=== PATIENT | male | born 1955 | race Caucasian/White ===

== ENCOUNTER → 2018-05-16 16:37 | Outpatient (CLI) | payer MEDICARE, SELFPAY ==
[2018-05-16 17:41] LABS: Absolute Lymphocyte Count 1.71 X10^3/ul (0.83-4.51); Absolute Neutrophil Count 4.7 X10^3/uL (2.0-7.7); Basophil# 0.02 X10^3/uL; Basophil% 0.3 % (0-1); Eosinophil# 0.17 X10^3/uL; Eosinophils% 2.4 % (0-5); Hematocrit 43.2 % (40-54); Lymphocyte # 1.71 X10^3/ul (4.0); Lymphocyte % 23.8 % (19-41); Mean Corp Hgb Conc 32.4 g/gl (32-36); Mean Corpuscular Volume 89.6 fL (80-94); Mean Platelet Vol. 10.3 fl (6.2-12.0); Monocyte% 8.4 % (0-10); Neutrophil # 4.65 X10^3/uL (2.7-7.7); Neutrophil % 64.8 % (47-70); Platelet Count 198 K/mm3 (150-450); RBC Distribution Width CV 13.4 % (11.6-14.6); RBC Distribution Width SD 43.9 fl (35.1-43.9); Red Blood Count 4.82 M/mm3 (4.6-6.2); White Blood Count 7.2 K/mm3 (4.4-11.0)
[2018-05-16 17:45] LABS: POSITIVE COUNT NO; POSITIVE DIFFERENTIAL NO; POSITIVE MORPHOLOGY NO
[2018-05-16 18:03] LABS: Color, Urine Yellow (Yellow); Glucose, Dipstick Normal (Normal); Ketone-Dipstick Negative (Negative); Leukocyte Esterase-Dipstick Negative /ul (Negative); Nitrite-Dipstick Negative (Negative); Occult Blood-Urine Negative /ul (Negative); Protein-Dipstick Negative (Negative); Specific Gravity, Urine 1.015 (1.002-1.030); Urine Bilirubin Dipstick Negative (Negative); Urine Clarity Clear (Clear); Urine Urobilinogen Normal (Normal)
[2018-05-16 18:06] LABS: Hemoglobin A1c 7.6 % (4.2-6.3)
[2018-05-16 18:30] LABS: AST(SGOT) 15 U/L (15-37); Alanine Aminotransfer ALT/SGPT 21 U/L (16-61); Albumin, Serum 3.6 g/dL (3.2-5.0); Alkaline Phosphatase 63 U/L (45-117); Anion Gap 9 (5-15); BUN 27 mg/dL (7-18); BUN/Creat Ratio 16.4 RATIO (10-20); Calcium,Total 9.2 mg/dL (8.5-10.1); Chloride 106 mmol/L (98-107); Cholesterol 161 mg/dL (200); Creatinine, Serum 1.65 mg/dL (0.70-1.30); EST Glomerular Filtration Rate 45 mL/min (>60); Est Glom Filt Rate - Afr Amer 54 mL/min (>60); Globulin 3.7 g/dL (2.2-4.2); Glucose 132 mg/dL (74-106); High Density Lipoprotein 36 mg/dL; PSA,Total - Annual Screen 2.32 ng/mL (0.00-4.00); Potassium 4.4 mmol/L (3.5-5.1); Protein, Total 7.3 g/dL (6.4-8.2); Sodium Level 138 mmol/L (136-145); Triglycerides 186 mg/dL; Uric Acid 6.4 mg/dL (3.5-7.2); Very Low Density Lipoprotein 37 mg/dL (5-40)
== END ==
PROVIDERS: Visit Provider Family Medicine
DX: Z00.01 Encounter for general adult medical examination with abnormal findings (principal); I12.9 Hypertensive chronic kidney disease with stage 1 through stage 4 chronic kidney disease, or unspecified chronic kidney disease; N18.3 Chronic kidney disease, stage 3 (moderate); R10.9 Unspecified abdominal pain; R73.03 Prediabetes; M10.9 Gout, unspecified; Z12.5 Encounter for screening for malignant neoplasm of prostate; Z85.528 Personal history of other malignant neoplasm of kidney
CPT/HCPCS: 36415; 80053; 80061; 81002; 83036; 84153; 84550; 85025; 87086; 87088; G0103

== ENCOUNTER → 2018-05-24 13:04 | Outpatient (CLI) | payer MEDICARE, SELFPAY ==
--- NOTE | 2018-05-24 13:07 | RAD_ITS ---
STUDY: X-RAY CHEST REASON FOR EXAM: Male, 62 years old. Chest pain/pressure, history of renal carcinoma TECHNIQUE: PA and lateral views of the chest. COMPARISON: 2014 FINDINGS: The lungs are clear and expanded. There is no demonstrated pleural abnormality. Normal size heart. Normal mediastinum and yessi. Normal visualized pulmonary arteries. Normal visualized aortic arch and descending thoracic aorta. There are diffuse degenerative changes of the visualized thoracic spine. Normal visualized ribs, clavicles, and shoulders. There is no demonstrated abnormality of the visualized soft tissue structures of the upper abdomen. RAD/Chest PA and Lateral IMPRESSION: Normal x-ray examination of the chest. Electronically Signed: Nick Sanders MD at 13:42 EDT , Service support ,
== END ==
PROVIDERS: Family Provider Family Medicine; PCP Family Medicine; Referring Provider Family Medicine; Visit Provider Family Medicine
DX: R05 Cough (principal)
CPT/HCPCS: 71046

== ENCOUNTER 2018-07-12 13:00 | Outpatient (RCR) | payer MEDICARE, SELFPAY | END 2018-07-25 23:59 | LOC: DC 13:00 | PROVIDERS: Family Provider Family Medicine; PCP Family Medicine; Visit Provider Family Medicine | DX: E11.9 Type 2 diabetes mellitus without complications (principal); Z71.3 Dietary counseling and surveillance | CPT/HCPCS: 97802 ==

== ENCOUNTER 2018-08-22 13:58 | Outpatient (RCR) | payer MEDICARE, SELFPAY | END 2018-08-25 23:59 | LOC: DC 13:58 | PROVIDERS: Family Provider Family Medicine; PCP Family Medicine; Visit Provider Family Medicine | DX: E11.9 Type 2 diabetes mellitus without complications (principal); Z71.3 Dietary counseling and surveillance | CPT/HCPCS: 97803 ==

== ENCOUNTER 2018-09-07 12:17 | Outpatient (RCR) | payer MEDICARE, SELFPAY | END 2018-09-07 23:59 | disposition home or self-care (01) | LOC: DC 12:17 | PROVIDERS: Family Provider Family Medicine; PCP Family Medicine; Visit Provider Family Medicine | DX: E11.9 Type 2 diabetes mellitus without complications (principal); Z71.3 Dietary counseling and surveillance | CPT/HCPCS: G0109 ==

== ENCOUNTER 2018-10-15 09:55 | Emergency (ER) | payer MEDICARE, SELFPAY ==
[2018-10-15 09:56] VITALS: BP 166/104; PULSE 105; RESP 16; TEMP 36.7; O2SAT 96; BMI 42.8
--- NOTE | 2018-10-15 10:34 | VDLE_ITS ---
Reason For Study: LEG SWELLING RIGHT LEFT GSV is normal. CFV is compressible, spontaneous, phasic, CFV is compressible, spontaneous, phasic, competent, and demonstrates normal competent and demonstrates normal augmentation. augmentation. Acute deep vein thrombosis is noted in the right femoral vein. Acute deep vein thrombosis is noted in the right popliteal vein. Acute deep vein thrombosis is noted in the right peroneal vein. Acute deep vein thrombosis is noted in the right posterior tibial vein. Procedure Exam performed portable in ED. A preliminary report was called and/or faxed to . Interpretation Summary Acute deep venous thrombosis right femoral, popliteal, peroneal, and posterior tibial veins. Patent and compressible right great saphenous vein. Normal flow patterns left common femoral vein. Ordering Physician: Jenn Pineda Referring Physician: Houston Olson Performed By: Natalie Quintero RVT
--- NOTE | 2018-10-15 10:40 | ED.DCSUM_ITS ---
- ER Visit Summary Date of Service: 10/15/18 Chief Complaint: Right leg pain and swelling History of Present Illness: The patient is a 62 M with a 2-day history of mild pain and swelling to the right leg. Patient has a known history of DVT and PE in 2015. He is no longer on anticoagulants. Patient states he has shortness of breath but it is no worse than normal. He denies chest pain. He denies any recent injury. Physical Examination: Vital signs significant for blood pressure 166/104. Patient sitting upright in bed no acute distress. Head and neck examination unremarkable. Heart is regular rate and rhythm. Lungs sounds are clear. Abdomen is soft and nontender. Right lower external examination does reveal 2-3+ edema in the lower leg. Thigh is soft and nontender. He has strong distal pulses. Normal sensation. Test Results: CBC is unremarkable. Chemistry studies reveal BUN of 37 and a creatinine of 1.73. His calculated creatinine clearance is 46. Coags are unremarkable. Venous ultrasound shows clot from the proximal to mid femoral vessel and distal. Emergency Department Course and Treatment: Patient be treated with a course of Xarelto, first dose given here. I did send a hypercoagulable panel as well. I will speak with the patient's primary care physician to arrange close follow-up and ensure these lab tests are followed up on. Treatment Plan: [] Disposition: Discharge Impression: Right lower extremity DVT This note was generated with [employer] dictation software. It may contain incorrect words, spelling, and punctuation that were not noted in review of the chart prior to signing ED Disposition - Plan for ED Patient: Referrals: Houston Olson DO [Primary Care Provider] -
[2018-10-15] MEDS: Rivaroxaban 15 MG Tablet PO (12:35)
[2018-10-15 12:36] VITALS: BP 133/69; PULSE 94; RESP 16; O2SAT 98
[2018-10-15 12:46] LABS: Absolute Lymphocyte Count 0.95 X10^3/ul (0.83-4.51); Absolute Neutrophil Count 5.3 X10^3/uL (2.0-7.7); Basophil# 0.03 X10^3/uL; Basophil% 0.4 % (0-1); Eosinophil# 0.16 X10^3/uL; Eosinophils% 2.3 % (0-5); Hematocrit 43.5 % (40-54); Hemoglobin 14.4 g/dl (13.0-16.5); Lymphocyte # 0.95 X10^3/ul (4.0); Lymphocyte % 13.6 % (19-41); Mean Corp Hgb Conc 33.1 g/gl (32-36); Mean Corpuscular Hgb 29.6 pg (27.0-32.0); Mean Corpuscular Volume 89.3 fL (80-94); Mean Platelet Vol. 10.2 fl (6.2-12.0); Monocyte# 0.57 X10^3/uL; Monocyte% 8.2 % (0-10); Neutrophil # 5.25 X10^3/uL (2.7-7.7); Neutrophil % 75.4 % (47-70); Platelet Count 155 K/mm3 (150-450); RBC Distribution Width CV 13.6 % (11.6-14.6); RBC Distribution Width SD 44.7 fl (35.1-43.9); Red Blood Count 4.87 M/mm3 (4.6-6.2)
[2018-10-15 12:47] LABS: POSITIVE COUNT NO; POSITIVE DIFFERENTIAL NO; POSITIVE MORPHOLOGY NO
[2018-10-15 12:52] LABS: International Normalized Ratio 1.1; Prothrombin Time (Protime)PT. 14.1 SECONDS (11.7-14.9)
[2018-10-15 12:53] LABS: Partial Thromboplast Time 30.4 Seconds (24.1-36.2)
[2018-10-15 12:59] LABS: Anion Gap 11 (5-15); BUN 37 mg/dL (7-18); BUN/Creat Ratio 21.4 RATIO (10-20); Chloride 106 mmol/L (98-107); Creatinine, Serum 1.73 mg/dL (0.70-1.30); EST Glomerular Filtration Rate 43 mL/min (>60); Est Glom Filt Rate - Afr Amer 51 mL/min (>60); Estimated Creatinine Clearance 46.55 ml/min; Glucose 124 mg/dL (74-106); Potassium 4.5 mmol/L (3.5-5.1); Sodium Level 140 mmol/L (136-145)
--- NOTE | 2018-10-15 13:11 | ED.DEP ---
ED Disposition - Plan for ED Patient: Disposition: Home or Assisted Living Instructions: ED DVT Prescriptions: Rivaroxaban [Xarelto] 15 mg PO BID #42 tablet Referrals: Houston Olson DO [Primary Care Provider] - 1-2 Weeks
[2018-10-15 13:31] VITALS: PULSE 95; RESP 16; O2SAT 98
[2018-10-21 12:08] LABS: Protein C Antigen 84 % (60-150); Protein C, Functional 105 % (73-180)
[2018-10-21 12:37] LABS: Anti-Cardiolipin Ab, IgG, Qn < 9 GPL U/mL (0-14); Anti-Cardiolipin Ab, IgM, Qn 13 MPL U/mL (0-12); Anti-Thrombin 3 AG, Immunol 103 % (72-124); Antithrombin 3 Function 104 % (75-135); Beta-2-Glycoprotein I IgA 13 (0-25); Beta-2-Glycoprotein I IgG <9 (0-20)
[2018-10-21 12:38] LABS: Beta-2-Glycoprotein I IgM <9 (0-32)
== END 2018-10-15 13:32 | disposition home or self-care (01) ==
PROVIDERS: Emergency Provider Emergency Medicine; Family Provider Family Medicine; PCP Family Medicine
DX: I82.411 Acute embolism and thrombosis of right femoral vein (principal); I82.431 Acute embolism and thrombosis of right popliteal vein; I82.441 Acute embolism and thrombosis of right tibial vein; E11.9 Type 2 diabetes mellitus without complications; K21.9 Gastro-esophageal reflux disease without esophagitis; Z79.82 Long term (current) use of aspirin; Z79.01 Long term (current) use of anticoagulants; Z79.899 Other long term (current) drug therapy; Z86.711 Personal history of pulmonary embolism; Z85.528 Personal history of other malignant neoplasm of kidney; Z86.718 Personal history of other venous thrombosis and embolism
CPT/HCPCS: 80048; 81240; 81241; 85025; 85300; 85301; 85302; 85303; 85610; 85730; 86146; 86147; 93971; 99282

== ENCOUNTER 2018-10-27 12:58 | Outpatient (RCR) | payer MEDICARE, SELFPAY | END 2018-11-22 23:59 | LOC: DC 12:58 | PROVIDERS: Family Provider Family Medicine; PCP Family Medicine; Visit Provider Family Medicine | DX: E11.9 Type 2 diabetes mellitus without complications (principal); Z71.3 Dietary counseling and surveillance ==

== ENCOUNTER → 2018-12-16 13:15 | Outpatient (CLI) | payer MEDICARE, SELFPAY ==
[2018-11-14 08:55] VITALS: BMI 42.8
--- NOTE | 2018-12-16 13:17 | CT_ITS ---
STUDY: CT ABDOMEN AND PELVIS WITHOUT CONTRAST REASON FOR EXAM: Male, 62 years old. Blood in stool. History of nephrectomy for renal cancer. RADIATION DOSAGE (If Supplied By Facility): CTDIvol = ( 17.58 ) mGy, DLP = ( 959.27 ) mGycm TECHNIQUE: Transaxial images were obtained from the dome of the diaphragm to the symphysis pubis with oral contrast, and without intravenous contrast. Sagittal and coronal images were reconstructed. Individualized dose optimization techniques were used for this CT. COMPARISON: CT of the chest 11/19/2014. FINDINGS: Limited views of the lower chest show very numerous pulmonary nodules in both lungs. As an example, nodules as much as 1.1 cm size are seen in the lower right lung, note axial image 21 and numerous subcentimeter nodules are seen in the visualized lower left lung. These are not present on the prior exam and are very likely metastases. CT of the chest with contrast is recommended. Probable fatty infiltration of the liver. Elongated 3.3 cm low-attenuation lesion in a very small left lobe, axial image 52. This is of uncertain etiology but needs further evaluation with contrast. Mass is not excluded. Gallbladder, pancreas, spleen and adrenal glands are unremarkable. Right kidney has very numerous renal cysts as much as 10 cm greatest dimension. One of these large cysts is septated with a few calcifications. At least one slightly hyperdense exophytic 1.8 cm mass is seen. These masses should be further evaluated with contrasted CT or ultrasound. Left kidney is absent and no definite mass seen in the left renal bed. Grossly negative stomach. No dilated loops of small bowel or evidence for small bowel obstruction. Normal caliber large bowel. No gross mass or constricting lesion although CT scan is limited for evaluation of the colon. Cannot exclude segments of bowel wall thickening. Aorta and retroperitoneum are unremarkable. No gross adenopathy. No definite mass, abscess or free fluid. In the pelvis, normal bladder contour. Normal prostate. No gross abnormality of the rectum. Normal abdominal wall. There are diffuse degenerative changes of the visualized lumbar spine. CT/Abdomen/Pelvis without Cont IMPRESSION: Probable metastatic disease throughout the visualized lungs. Additional evaluation of the lungs recommended with chest CT preferably with contrast. Focal lesion in the left lobe of the liver. This needs further evaluation with contrast CT. Numerous masses of the right kidney most likely cysts but some of these are somewhat suspicious and further evaluation recommended, also best with contrast CT. Electronically Signed: Hemanth Boyle MD at 18:01 EDT , Service support ,
== END ==
PROVIDERS: Family Provider Family Medicine; PCP Family Medicine; Referring Provider Family Medicine; Visit Provider Family Medicine
DX: R19.5 Other fecal abnormalities (principal); Z12.11 Encounter for screening for malignant neoplasm of colon; I82.401 Acute embolism and thrombosis of unspecified deep veins of right lower extremity
CPT/HCPCS: 74176

== ENCOUNTER → 2018-12-28 08:11 | Outpatient (CLI) | payer MEDICARE, SELFPAY ==
[2018-11-14 08:55] VITALS: BMI 42.8
[2018-12-28 12:24] LABS: Absolute Lymphocyte Count 1.07 X10^3/ul (0.83-4.51); Absolute Neutrophil Count 3.5 X10^3/uL (2.0-7.7); Basophil# 0.03 X10^3/uL; Basophil% 0.6 % (0-1); Eosinophil# 0.12 X10^3/uL; Eosinophils% 2.3 % (0-5); Hemoglobin 14.1 g/dl (13.0-16.5); Lymphocyte # 1.07 X10^3/ul (4.0); Lymphocyte % 20.8 % (19-41); Mean Corp Hgb Conc 33.6 g/gl (32-36); Mean Corpuscular Hgb 28.6 pg (27.0-32.0); Mean Corpuscular Volume 85.2 fL (80-94); Mean Platelet Vol. 11.6 fl (6.2-12.0); Monocyte# 0.44 X10^3/uL; Monocyte% 8.6 % (0-10); Neutrophil # 3.46 X10^3/uL (2.7-7.7); Neutrophil % 67.3 % (47-70); POSITIVE COUNT NO; POSITIVE DIFFERENTIAL NO; POSITIVE MORPHOLOGY NO; Platelet Count 167 K/mm3 (150-450); RBC Distribution Width CV 13.5 % (11.6-14.6); RBC Distribution Width SD 41.5 fl (35.1-43.9); Red Blood Count 4.93 M/mm3 (4.6-6.2); White Blood Count 5.1 K/mm3 (4.4-11.0)
[2018-12-28 12:44] LABS: Hemoglobin A1c 11.4 % (4.2-6.3)
[2018-12-28 13:03] LABS: Microalbumin,Random Urine 8.1 mg/L (NO RANGE EST.)
[2018-12-28 13:40] LABS: AST(SGOT) 10 U/L (15-37); Alanine Aminotransfer ALT/SGPT 18 U/L (16-61); Albumin, Serum 3.5 g/dL (3.2-5.0); Alkaline Phosphatase 85 U/L (45-117); Anion Gap 14 (5-15); BUN 53 mg/dL (7-18); BUN/Creat Ratio 26.4 RATIO (10-20); Calcium,Total 9.1 mg/dL (8.5-10.1); Chloride 100 mmol/L (98-107); Cholesterol 163 mg/dL (200); Creatinine, Serum 2.01 mg/dL (0.70-1.30); EST Glomerular Filtration Rate 36 mL/min (>60); Est Glom Filt Rate - Afr Amer 43 mL/min (>60); Globulin 3.6 g/dL (2.2-4.2); Glucose 487 mg/dL (74-106); High Density Lipoprotein 33 mg/dL; Potassium 4.2 mmol/L (3.5-5.1); Protein, Total 7.1 g/dL (6.4-8.2); Sodium Level 134 mmol/L (136-145); Triglycerides 359 mg/dL; Uric Acid 7.3 mg/dL (3.5-7.2); Very Low Density Lipoprotein 72 mg/dL (5-40)
== END ==
PROVIDERS: Family Provider Family Medicine; PCP Family Medicine; Visit Provider Family Medicine
DX: E11.22 Type 2 diabetes mellitus with diabetic chronic kidney disease (principal); I12.9 Hypertensive chronic kidney disease with stage 1 through stage 4 chronic kidney disease, or unspecified chronic kidney disease; N18.3 Chronic kidney disease, stage 3 (moderate); M10.9 Gout, unspecified; Z51.81 Encounter for therapeutic drug level monitoring
CPT/HCPCS: 36415; 80053; 80061; 82043; 82570; 83036; 84550; 85025

== ENCOUNTER 2019-02-15 08:08 | Day surgery (SDC) | payer MEDICARE, SELFPAY ==
--- NOTE | 2019-01-25 02:24 | HP_ITS ---
Intake Vital Signs 01/25/19 Body Mass Index (BMI) 42.8 01/25/19 Height 5 ft 11 in 01/25/19 Weight: 298 lb 01/25/19 Body Mass Index (BMI) 41.5 01/25/19 Blood Pressure 109/66 01/25/19 Blood Pressure Location Lt brachial 01/25/19 Respiratory Rate 18 Intake Visit Reasons: C-Scope Consult Chief Complaint: Right Total Hip Replacement Liaison Officer Required: No Is patient in pain?: No Allergies Penicillins Allergy (Verified 01/25/19 13:43) Unknown Medications Lisinopril/Hydrochlorothiazide [Zestoretic 20/12.5 Tablet] 2 tab PO DAILY 11/09/14 [History Confirmed 01/25/19] Tamsulosin HCl [Flomax] 0.4 mg PO QHS 11/09/14 [History Confirmed 01/25/19] Allopurinol [Zyloprim] 100 mg PO DAILYCM 05/03/15 [History Confirmed 01/25/19] Finasteride [Proscar] 5 mg PO DAILY 05/03/15 [History Confirmed 01/25/19] Rivaroxaban [Xarelto] 20 mg PO DAILY@0600 #30 tab 05/22/15 [Rx Confirmed 01/25/19] Senna/Docusate Sodium [Senokot-S] 2 tab PO BID #60 tab 05/22/15 [Rx Confirmed 01/25/19] peg 3350-electrolytes 236 gram-22.74 gram-6.74 gram-5.86 gram solution 240 ml PO Q30M #4000 ml 01/25/19 [Rx Confirmed 01/25/19] PFSH Medical History DVT (deep venous thrombosis) (Acute) Hx pulmonary embolism (Acute) Acid reflux (Acute) Shortness of breath (Acute) Hypertension (Chronic) Gout (Acute) Back problem (Acute) Renal cell cancer (Chronic) Osteoarthritis (Chronic) Obesity (Chronic) Surgical History Hx of tonsillectomy (Acute) Hx of unilateral nephrectomy (Acute) History of right hip replacement (Acute) Family History Mother CVA (cerebral vascular accident) Heart disease Diabetes Hypertension Kidney disease Social History (Updated 01/25/19 @ 14:54 by Ava Heredia MD) Smoking Status: Never smoker second hand exposure: No alcohol intake: never substance use type: does not use caffeine: Yes frequency: does not exercise HPI HPI HPI: KRISSY SAAVEDRA, is a 63 M who presents to the office today for HPI HPI Surgical H&P: Yes HPI: KRISSY SAAVEDRA, is a 63 M who presents to the office today for positive fecal occult blood test and abnormal CT of the abdomen. Patient was seen previously in October and due to his recurrent right lower extremity DVTs he agreed to check a CT abdomen pelvis prior to trying to bridge patient with Lovenox. Patient CT abdomen did show multiple lung lesions as well as a questionable lesion in the liver however is unable to be done with contrast to the patient's history of left nephrectomy as well as chronic kidney disease. Patient then was to follow-up to schedule endoscopies; However patient just scheduled recently. Patient states he does have bowel movements daily denies any blood he also states he has reflux about twice a week depending on what he eats he takes Rolaids for this. Patient otherwise denies any nausea or vomiting. Patient does state that he is lost about 44 pounds in several months but he has also decrease his intake intentionally due to his blood sugars. Patient is never had a colonoscopy. Denies any family history of colon cancer. ROS General General: Yes weight change and fatigue Gastro Gastrointestinal: Yes abdominal pain (Only occasional left-sided pain which she describes as an ache that comes a), No nausea or vomiting, No diarrhea, No constipation, No blood in stool, Yes acid reflux, Yes hemorrhoids, No ulcers, No gallbladder problem, No black,tarry stools Exam Const General: cooperative, comfortable, no acute distress Resp Effort & Inspection: normal respiratory effort Cardio Rate: regular rate GI Inspection: non-distended, obesity Palpation: soft, no guarding, no hernias, nontender Assessment & Plan Problems 1. Fecal occult blood test positive R19.5 2. Recurrent deep vein thrombosis (DVT) of right lower extremity I82.[address] of the abdomen R93.5 Multiple lung nodules seen in the base of the lungs, liver lesion also seen unable to see well as patient cannot have contrast used to his creatinine and history of left nephrectomy. 4. GERD (gastroesophageal reflux disease) K21.9 Plan I have discussed the above with the patient. We will have patient come off his Xarelto 2 days prior to the scope and patient will get Lovenox shots twice daily. His PCP Dr. Olson is agreeable to prescribe the Lovenox shots. The patient complete GoLYTELY prep I have offered the patient EGD & colonoscopy for evaluation. I have explained the risks/benefits of the procedure and described the procedure. I have discussed the risks with the patient, including but not limited to: infection, bleeding, perforation of the GI tract requiring emergency surgery, inability to complete the procedure, injury to any internal organs, complications of anesthesia, etc. - the patient understands and agrees to proceed. I have answered all the patient's questions to the patient's satisfaction and the patient has no further questions. The patient has been given instructions for the colon cleansing preparation- GoLYTELY 4 L. Orders Orders: Colonoscopy Today R19.5, R93.5 EGD Today K21.9, R19.5, R93.5 Medications New: peg 3350-electrolytes 236-22.74-6.74 -5.86 gram until fecal effluent is clear; do not exceed a total volume [id number] mL, follow instructions from office 240 mL PO Q30M 4,000 mL 0RF Z12.11 Plan Detail Follow Up scheduled for 02/15 for endoscopy Coding Level of Care Code Off vis,est,level 3 Diagnoses Fecal occult blood test positive R19.5 Recurrent deep vein thrombosis (DVT) of right lower extremity I82.[address] of the abdomen R93.5 GERD (gastroesophageal reflux disease) K21.9 01/25/19 8352 <Electronically signed by Aav Rodrigues am, MD> Date _ Ava Heredia MD I have examined the patient the following changes are noted: Patient has been on Lovenox shots twice daily x2 days, denies any issues with the prep. Patient has no questions about the procedure today.
[2019-01-25 13:43] VITALS: BMI 42.8
[2019-02-15] VITALS (7 sets, daily range): BP systolic 94–137; BP diastolic 65–73; PULSE 73–90; RESP 16–18; TEMP 36.5–36.9; O2SAT 91–97; BMI 41.9
[2019-02-15 09:21] LABS: Bedside Glucose 135 mg/dL (70-110)
--- NOTE | 2019-02-15 09:30 | EGD_PTH ---
PATIENT: KRISSY SAAVEDRA LOC: EN U#:[id number] AGE/SX: 63/M ROOM: RE02/15/[address]: Dr. Ava Heredia MD : 1955 BED: DIS: 02/15/2019 SPEC #: [id number] RECD: 02/15/19 11:28 STATUS: REECE TAMMI #: [id number] NIHARIKA: 02/15/19 09:[address]: Ava Heredia DEPT: SURGICAL PATHOLOGY RECD BY: Abhay Patrick ENTERED: 02/15/19 12:31 SP TYPE: EGD BIOPSY OT DR: Dr. Houston Olson, Tissues: A - Gastric mucous membrane B - Sigmoid colon biopsy Procedures: Surgery Specimen Level IV HEADER OPERATION: Colonoscopy, EGD ([facility]) PRE-OP DIAGNOSIS: Fecal occult positive, abnormal CT abdomen TISSUE SUBMITTED: A - Antrum biopsy for H. pylori and path, B - Sigmoid polyp at 32 cm MICROSCOPIC DIAGNOSIS A. Gastric antrum, biopsy: Mild chronic gastritis. See comment. B. Sigmoid colon polyp at 32 cm, biopsy: Fragments of tubular adenoma. AM:nisah 02/16/19 COMMENT A. The results of immunohistochemistry for Helicobacter pylori will be reported separately ([id number]). MICROSCOPIC DESCRIPTION Slides are reviewed. GROSS DESCRIPTION A - Received in fixative is one container labeled with the patient's name and designated antrum biopsy. The specimen consists of one irregular fragment of light carmona soft tissue that measures 0.4 x 0.3 x 0.1 cm. The specimen is totally submitted in one cassette. B - Received in fixative is one container labeled with the patient's name and designated sigmoid polyp. The specimen consists of two fragments of carmona-pink polyp that in aggregate measure 1.2 x 0.7 x 0.4 cm. Fragments of fecal material are also noted. The entire specimen is submitted in one cassette. / SJ:nisha 02/15/19 TC:3 CPT: 81288 x2
--- NOTE | 2019-02-15 09:30 | IMM_PTH ---
PATIENT: KRISSY SAAVEDRA LOC: EN U#:[id number] AGE/SX: 63/M ROOM: RE02/15/[address]: Dr. Ava Heredia MD : 1955 BED: DIS: 02/15/2019 SPEC #: [id number] RECD: 02/15/19 13:45 STATUS: REECE REQ #: [id number] NIHARIKA: 02/15/19 09:[address]: Aav Heredia DEPT: IMMUNOHISTOCHEMISTRY RECD BY: Shelly Yan ENTERED: 02/15/19 13:46 SP TYPE: IMMUNO OTHR DR: Dr. Houston Olson, DO Tissues: A - Stomach, NOS Procedures: H Pylori (initial) PHYSICIAN & INSTITUTION [place] [id number] SPECIMEN INFORMATION: Tissue Source: A - Antrum biopsy Clinical Info: Fecal occult positive, Abnormal CT abdomen Specimen Number: [id number] CPT code: 36046 METHODOLOGY: Deparaffinized sections of prefer/formalin-fixed tissue or PAP/DQ stained slides are incubated with monoclonal/polyclonal antibodies/oligonucleotide probes. Localization is made via biotin free immunoperoxidase method. Appropriate controls are performed and reacted as expected. Results on target cell population are indicated in the following table: RESULTS: ANTIBODY / CLONE RESULT Block A H Pylori (polyclonal) negative These tests were developed and their performance characteristics determined by [facility]. They may not have been cleared or approved by the U.S. Food and Drug Administration. The FDA has determined that such clearance or approval is not necessary. INTERPRETATION: A. Antrum biopsy: Negative for Helicobacter pylori organisms. AM:nisha 02/17/19
--- NOTE | 2019-02-15 09:54 | OP.ENDO_ITS ---
02/15/2019 Houston Olson [address] [place] [address] Re : Upper GI endoscopy procedure for James Wright Dear Dr. Olson This procedure was performed on Friday, February 15, 2019. My impressions and recommendations are as follows: Impressions : - Z-line irregular, 37 cm from the incisors. - Erythematous mucosa in the antrum. Biopsied. - Normal examined duodenum. - The examination was otherwise normal. Recommendations : - Await pathology results. - Discharge patient to home. - Continue present medications. My findings are described in the full procedure note, which is enclosed. If I can be of further assistance, please feel free to contact me at Doctor phone number(s): , Work: . Sincerely, MD Ava Christian MD 02/15/2019 9:54:02 AM This report has been signed electronically.
--- NOTE | 2019-02-15 10:00 | OP.ENDO_ITS ---
02/15/2019 Houston Olson [address] [facility] [place] [address] Re : Colonoscopy procedure for James Wright Dear Dr. Olson This procedure was performed on Friday, February 15, 2019. My impressions and recommendations are as follows: Impressions : - One 6 to 9 mm polyp in the sigmoid colon, removed piecemeal using a hot snare. Resected and retrieved. Clip was placed. - Internal hemorrhoids. -few diverticulosis in sigmoid colon Recommendations : - Await pathology results. - Discharge patient to home. - Resume Xarelto (rivaroxaban) at prior dose tonight. Refer to primary physician for further adjustment of therapy. - Repeat colonoscopy 1-3 years for surveillance based on pathology results. - High fiber diet. My findings are described in the full procedure note, which is enclosed. If I can be of further assistance, please feel free to contact me at Doctor phone number(s): , Work: . Sincerely, MD Ava Christian MD 02/15/2019 10:00:18 AM This report has been signed electronically.
== END 2019-02-15 11:20 | disposition home or self-care (01) ==
LOC: EN 08:09 → AC 08:09
PROVIDERS: Family Provider Family Medicine; PCP Family Medicine; Referring Provider Family Medicine; Visit Provider Surgery
PROC: 0DJD8ZZ Inspection of Lower Intestinal Tract, Via Natural or Artificial Opening Endoscopic (ICD-10-PCS; CPT 45378; principal; 2019-02-15 09:25)
DX: D12.5 Benign neoplasm of sigmoid colon (principal); K57.30 Diverticulosis of large intestine without perforation or abscess without bleeding; K29.50 Unspecified chronic gastritis without bleeding; K64.0 First degree hemorrhoids; K21.9 Gastro-esophageal reflux disease without esophagitis; R91.1 Solitary pulmonary nodule; K76.9 Liver disease, unspecified; R93.3 Abnormal findings on diagnostic imaging of other parts of digestive tract; K31.89 Other diseases of stomach and duodenum; E11.9 Type 2 diabetes mellitus without complications; I10 Essential (primary) hypertension; Z88.0 Allergy status to penicillin; Z79.01 Long term (current) use of anticoagulants; Z86.711 Personal history of pulmonary embolism; Z86.718 Personal history of other venous thrombosis and embolism; Z85.528 Personal history of other malignant neoplasm of kidney; Z90.5 Acquired absence of kidney; Z96.641 Presence of right artificial hip joint
CPT/HCPCS: 43239; 45385; 82962; 88305; 88342; J7120; J2405

== ENCOUNTER → 2019-03-01 13:09 | Outpatient (CLI) | payer MEDICARE, SELFPAY ==
[2019-02-15 08:42] VITALS: BMI 41.9
[2019-03-01 14:16] LABS: PSA,Total- Diagnostic 2.94 ng/mL (0.0-4.0)
== END ==
PROVIDERS: Family Provider Family Medicine; PCP Family Medicine; Referring Provider Urology; Visit Provider Urology
DX: C61 Malignant neoplasm of prostate (principal); Z12.5 Encounter for screening for malignant neoplasm of prostate
CPT/HCPCS: 36415; 84153

== ENCOUNTER → 2019-03-04 10:17 | Outpatient (CLI) | payer MEDICARE, SELFPAY ==
[2019-02-15 08:42] VITALS: BMI 41.9
--- NOTE | 2019-03-04 10:30 | CT_ITS ---
STUDY: CT CHEST WITHOUT CONTRAST REASON FOR EXAM: Male, 63 years old. Lung nodule follow-up RADIATION DOSAGE (If Supplied By Facility): CTDIvol = ( 20.14 ) mGy, DLP = ( 770.19 ) mGycm TECHNIQUE: Transaxial imaging was performed without the administration of intravenous contrast material. Multiplanar coronal and sagittal images were reformatted. Individualized dose optimization techniques were used for this CT. COMPARISON: CTA chest from 11/19/2014, abdomen/pelvis CT of 12/16/2018 FINDINGS: Enlargement of the thyroid gland including the isthmus is overall similar since 2014. There are numerous noncalcified pulmonary nodules which have increased in size and number since the prior CTA chest of 11/19/2014. For instance, 11 mm nodule in the anterior right lower lobe on image 80 of the current exam previously measured 3 mm. The 2 nodules slightly more medial and posterior in the right lower lobe on image 80 are new, each measuring approximately 8 mm. The lingular nodule on axial image 66 is new since 2014 appears mildly larger as compared to recent abdomen/pelvis CT, currently measuring 8 mm (previously measured 5 mm). There is no demonstrated pleural abnormality. Heart size is stable. Mitral valve calcifications are noted. There are several lymph nodes of the mediastinum and bilateral yessi, measuring up to 1.3 cm (right hilum, image 54), larger since prior chest CTA. No dominant mediastinal shaun mass is seen. Station 7 subcarinal lymph node has a short axis of 1 cm (measures 8 mm on prior CTA). Normal unenhanced pulmonary arteries. Normal aorta arch and descending thoracic aorta. There are multi-level degenerative changes of the thoracic spine. Multiple large renal cysts of the right kidney are partially visualized. The left kidney is surgically absent. CT/Chest without Contrast IMPRESSION: 1. Multiple enlarging and new pulmonary nodules. Many of the nodules are certainly new since 2014 and least one nodule (lingula) is increased in size since abdomen/pelvis CT of 12/16/2018. Findings are suspicious for metastatic/neoplastic causes. Multiple nodules appear to be amenable to both percutaneous and bronchoscopic biopsy. PET scan and/or biopsy recommended, as clinically appropriate. 2. Mild hilar more than mediastinal adenopathy. Electronically Signed: Roland Calero MD ([place]) at 12:44 EDT , Service support ,
== END ==
PROVIDERS: Family Provider Family Medicine; PCP Family Medicine; Referring Provider Family Medicine; Visit Provider Family Medicine
DX: C34.90 Malignant neoplasm of unspecified part of unspecified bronchus or lung (principal); N18.3 Chronic kidney disease, stage 3 (moderate)
CPT/HCPCS: 71250

== ENCOUNTER → 2019-03-13 10:26 | Outpatient (CLI) | payer MEDICARE, SELFPAY ==
[2019-03-07 13:07] VITALS: BMI 41.9
--- NOTE | 2019-03-13 11:00 | PET_ITS ---
EXAMINATION: FDG PET/CT INDICATIONS: A 63-year-old male with reported history of renal cell carcinoma presenting for restaging examination and evaluation of pulmonary nodularity. COMPARISON EXAMINATION: CT of the chest report dated 03/04/19, CT of the abdomen and pelvis report dated 12/16/18 INDEX LESION SIZE SUV INTERPRETATION Right lower lung-right lower lobe 8.7 mm 1.3 Quantitative criteria for viable neoplasm are not fulfilled, sequential radiologic investigation recommended TECHNIQUE: Following the intravenous administration of F-18 deoxyglucose, multiplanar image acquisitions of the neck, chest, abdomen and pelvis to level of mid thigh, obtained at one hour post radiopharmaceutical administration contemporaneously interpreted with the current CT of the neck, chest, abdomen and pelvis to level of mid thigh, dated 03/13/[address] of the chest report dated 03/04/19, CT of the abdomen and pelvis report dated 12/16/18 reveal: FINDINGS: 1. Subtle increased glucose metabolism is defined in the right lower medial hemithorax pulmonary parenchyma, right lower lobe, in a single nodular presentation. The calculated maximal standard uptake value is 1.3. The maximal axial diameter of the corresponding parenchymal density on review of CT of the chest dated 03/13/19 is 8.7-mm (AP). 2. Asymmetric increased FDG concentration is demonstrated in the posterior compartment of the right lower extremity, non-contiguous to bone, generating a calculated maximal standard uptake value of 1.7. The maximal axial diameter of the corresponding soft tissue density on review of CT of the lower extremities dated 03/13/19 is 48.5-mm (transverse). 3. Normal physiologic distribution of the radiopharmaceutical is apparent in the hepatic (3.6) and splenic parenchyma, right renal unit, bladder and visualized intestinal tract. The visualized portion of the cerebral cortex, cerebellar hemispheres and basal ganglia demonstrates uniform and preserved glucose metabolism. Diffuse radiopharmaceutical concentration is noted in all four quadrants of the abdomen and pelvis. Heterogeneous radiopharmaceutical concentration is defined in the right renal unit. Injection artifact is defined in the left upper extremity. Pertinent CT findings are as follows: CHEST: Additional parenchymal densities defined in the bilateral hemithorax pulmonary parenchyma demonstrate no evidence of discernible, quantitatively significant enhanced FDG concentration. Bilateral subcentimeter axillary soft tissue densities with fatty hilus formation are ametabolic. Mediastinal soft tissue demonstrates no evidence of increased FDG concentration. There is atherosclerotic calcification defined in the thoracic aorta without evidence of dilatation-aneurysm formation. Coronary arterial calcification is observed. ABDOMEN AND PELVIS: The left kidney is metabolically, morphologically absent commensurate with prior nephrectomy. Surgical clips are defined in the left renal bed and left mid abdominal retroperitoneum. There is atherosclerotic calcification defined in the abdominal aorta without evidence of dilatation-aneurysm formation. Pelvic arterial calcification is observed. Multiple cyst formation is defined in the enlarged right kidney, the largest of which appears to demonstrate a maximal axial diameter of 9.8-cm (transverse). Dystrophic calcification is manifest within the prostate gland without evidence of facilitated FDG uptake. Subcentimeter bilateral inguinal soft tissue densities are non-glucose avid. SKELETAL: A right hip arthroplasty is defined. Degenerative changes are noted in the cervical, thoracic and lumbar spine. There are no sclerotic, mixed sclerotic-lytic and/or lytic changes demonstrating discernible quantitatively significant enhanced FDG uptake. PET/PET/CT Tumor Base -Thigh Init IMPRESSION: 1. The single nodular focus of increased FDG concentration noted in the right lower posteromedial lung field, right lower lobe, does not fulfill quantitative criteria for viable neoplasm. (Plasencia et al, Annals of Internal Medicine, 138:724, 2003). 2. Metabolic and/or anatomic stability may be ensured in the right hemithorax pulmonary parenchymal abnormality with repeat FDG PET study and/or CT of the thorax in three months. (Xiu, Journal of Nuclear Medicine 45:88, P2004 Lianet, Seminars in Thoracic and Cardiovascular Surgery 14:292, 2002). 3. Facilitated FDG distribution noted in the posterior soft tissue compartment of the right lower extremity at the level of the mid femoral diaphysis does not fulfill strict quantitative criteria for viable neoplasm. 4. Metastatic disease attributed to renal cell carcinoma may be associated with decreased sensitivity and quantitative degree of uptake secondary to the inherent gluconeogenic properties of well-differentiated primary and metastatic renal cell carcinoma. (Gerich et al., Diabetes Care 24:382, 2001). Electronic Signature Fred Rodriguez D.O. Electronically Signed: Fred Rodrgiuez DO at 23:29 EDT Tel , Service support ,
== END ==
PROVIDERS: Family Provider Family Medicine; PCP Family Medicine; Referring Provider Internal Medicine Critical Care Medicine; Visit Provider Internal Medicine Critical Care Medicine
DX: R91.1 Solitary pulmonary nodule (principal)
CPT/HCPCS: 78815; A9552

== ENCOUNTER → 2019-03-16 12:06 | Outpatient (CLI) | payer MEDICARE, SELFPAY ==
[2019-03-07 13:07] VITALS: BMI 41.9
--- NOTE | 2019-03-16 12:19 | MRI_ITS ---
STUDY: MRI ABDOMEN WITHOUT CONTRAST REASON FOR EXAM: Male, 63 years old. Renal cell cancer, right renal cyst, left nephrectomy. TECHNIQUE: Multisequence multiplanar MRI of the abdomen was performed without IV contrast. COMPARISON: PET CT 03/13/2019, CT chest 03/04/2018, CT abdomen and pelvis 12/16/2018, CT angiogram chest 11/19/2014 FINDINGS: Body wall soft tissues: No acute process. Osseous structures: No acute process. Inferior chest: Unremarkable. Spleen: Normal. Hepatobiliary: Multiple small gallstones. No apparent gallbladder inflation. Nondilated biliary tree. Normal liver parenchyma. Pancreas: Mild atrophy. No suspicious lesion or ductal ectasia. Adrenal glands: The left adrenal gland is not well seen. The right adrenal gland is normal. Stomach and bowel: Evaluated portions exhibit no acute process. Urinary tract: Left nephrectomy. No right hydronephrosis or hydroureter. Right renal inferior pole large exophytic simple appearing cyst measuring 8.8 x 9.5 x 7.9 cm. Simple cystic features. On lateral margin of the cyst there is an oval complex masslike focus adherent to the wall, measuring 2.2 x 2.4 cm. Suspicious features. Right renal inferior pole largely exophytic cyst measuring 5.9 x 5.8 cm. Simple cystic features. Right renal superior pole simple appearing cyst measuring 9.4 x 7.8 cm. Simple cystic features. There are multiple additional simple appearing smaller cysts exophytic from the cortex mid polar, and superior pole. Within the posterior aspect of the hilum, right renal inferior pole, oval masslike focus measuring 2.6 x 2.6 cm. Suspicious features. Projecting from the posterior margin of the inferior pole cortex, complex cyst measuring 1.9 x 1.9 cm. Suspicious features. Projecting from the posterior cortical margin of the superior pole, medially, complex septated cyst with nodularity and thickening of the wall measuring 4.6 x 4.7 cm. Suspicious features. Projecting from the anterior superior margin of the superior pole, complex multiloculated cystic and solid lesion measuring 4.7 x 4.5 cm. Suspicious features. MRI/Abdomen without Contrast IMPRESSION: The study is partially limited by the absence of IV contrast and diffusion-weighted imaging. There are multiple benign appearing cysts of the right kidney. There are 5 complex cystic masses of the right kidney, features concerning for the possibility of renal cell carcinoma. The pattern of the right kidney lesions and cyst is not substantially changed compared to imaging of 12/16/2017. No remote abdominal imaging is available for further characterization. Electronically Signed: Fred Camacho MD at 15:14 EDT Tel , Service support ,
== END ==
PROVIDERS: Family Provider Family Medicine; PCP Family Medicine; Referring Provider Urology; Visit Provider Urology
DX: C64.9 Malignant neoplasm of unspecified kidney, except renal pelvis (principal); N28.1 Cyst of kidney, acquired
CPT/HCPCS: 74181

== ENCOUNTER → 2019-04-06 07:40 | Outpatient (CLI) | payer MEDICARE, SELFPAY ==
[2019-03-28 08:40] VITALS: BMI 43.0
[2019-04-06] VITALS (10 sets, daily range): BP systolic 123–171; BP diastolic 57–95; PULSE 72–94; RESP 16–22; TEMP 36.5–36.6; O2SAT 93–97; BMI 42.4
--- NOTE | 2019-04-06 07:42 | CT_ITS ---
PROCEDURE: CT GUIDED PERCUTANEOUS KIDNEY BIOPSY. DATE: April 06, 2019. INDICATION: Male, 63 years old. Right renal mass. PHYSICIAN: Horacio Thacker M.D. MEDICATIONS: 2 mg of Versed and 50 mcg of fentanyl intravenously. Conscious patient was started at 9:19 AM and terminated at 9:55 AM. The patient was independently monitored by the department nurse. ACCESS SITE: Lower pole right kidney. NEEDLE: 18-gauge core biopsy needle. SPECIMEN: 5 18-gauge cores. EBL: Minimal COMPLICATIONS: None immediate. RADIATION DOSAGE (If Supplied By Facility): CTDIvol = ( 16 ) mGy, DLP = ( 324.27 ) mGycm The risks, benefits, and alternatives to the procedure and sedation were explained to the patient. The specific risk of hemorrhage requiring further treatment or intervention was detailed and accepted. Written informed consent was obtained. The patient was placed on the CT table in the prone position. Multiple axial images were obtained from the lung base through the caudal extent of the kidneys. An appropriate entry site was identified and a prabhakar made on the skin. The skin overlying the [ right] posterior flank was prepped and draped in sterile fashion. 1% lidocaine was administered subcutaneously for local anesthesia. Initially, a 22 gauge needle was advanced and CT images confirmed good needle position. The 22 gauge needle was then exchanged for an 17 gauge introducer needle which was advanced. Repeat CT images confirmed good needle trajectory and tip position. The introducer needle was then advanced into the periphery of the inferior renal pole, and CT images were again obtained to confirm exact tip location. The inner stylet of the introducer needle was then removed and an 18 gauge coaxial needle was advanced thru the introducer needle and biopsy performed. A total of [5 ] passes were performed and the specimen collected was sent to Pathology for further evaluation. The needle was withdrawn. Hemostasis was achieved with manual compression and a sterile dressing was applied. Repeat CT images of the biopsy area was performed which demonstrated no gross bleeding or hematoma. The patient tolerated the procedure well without immediate complications. The patient was transported to the [floor/recovery area] in stable condition. CT/Biopsy/Inj or Needle Placement IMPRESSION: Successful CT guided percutaneous kidney biopsy. Electronically Signed: Horacio Thacker, at 10:29 EDT , Service support ,
[2019-04-06 08:07] LABS: Absolute Neutrophil Count 3.7 X10^3/uL (2.0-7.7); Basophil# 0.04 X10^3/uL; Basophil% 0.7 % (0-1); Eosinophils% 3.7 % (0-5); Hemoglobin 13.6 g/dL (13.0-16.5); Lymphocyte % 18.7 % (19-41); Mean Corp Hgb Conc 31.6 g/dL (32-36); Mean Corpuscular Hgb 29.1 pg (27.0-32.0); Mean Corpuscular Volume 92.1 fL (80-94); Mean Platelet Vol. 10.5 fl (6.2-12.0); Monocyte# 0.44 X10^3/uL; Monocyte% 8.2 % (0-10); NRBC Flagged by Analyzer 0 % (0-5); Neutrophil # 3.65 X10^3/uL (2.7-7.7); Neutrophil % 68.1 % (47-70); Platelet Count 167 K/mm3 (150-450); RBC Distribution Width CV 13.3 % (11.6-14.6); RBC Distribution Width SD 45.1 fl (35.1-43.9); Red Blood Count 4.67 M/mm3 (4.6-6.2); White Blood Count 5.4 K/mm3 (4.4-11.0)
[2019-04-06 08:21] LABS: International Normalized Ratio 1.1; Prothrombin Time (Protime)PT. 13.5 SECONDS (11.7-14.9)
[2019-04-06 08:22] LABS: Partial Thromboplast Time 30.9 Seconds (24.1-36.2)
[2019-04-06] MEDS: 0.9% Saline Lock 10 ML Syringe IV (08:55)
[2019-04-06] MEDS: Midazolam 2 MG/2 ML Syringe IV (09:19)
[2019-04-06] MEDS: fentaNYL 100 MCG/2 ML Ampul IV (09:21)
--- NOTE | 2019-04-06 10:00 | ASPIGT_PTH ---
PATIENT: KRISSY SAAVEDRA LOC: CT U#:[id number] AGE/SX: 69/M ROOM: RE04/06/[address]: Dr. Jeffrey Kuhn MD : [id number] BED: DIS: SPEC #: [id number] RECD: 04/06/19 10:57 STATUS: REECE RETrevor #: [id number] NIHARIKA: 04/06/19 10:[address]: Jeffrey Kuhn DEPT: SURGICAL PATHOLOGY RECD BY: Abhay Patrick ENTERED: 04/06/19 10:58 SP TYPE: ASP RAD OTHR DR: Dr. 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 SAMIA:nisha 04/07/19 COMMENT The specimen is evaluated at the time of biopsy by Dr. Chen. Immediate Evaluation: Set 1 - Mostly blood. Definite malignant cells are not identified (3 DQ stained, 2 pap stained smears). Set 2 - Atypical cells noted suspicious for renal cell carcinoma (1 DQ stained smear). Please make reference to previous specimen ([id number]), left kidney, radical nephrectomy with diagnosis of renal cell carcinoma, clear cell type. Case has been reviewed in consultation with Dr. Beckman who concurs with the above diagnosis. IDC:AM MICROSCOPIC DESCRIPTION Slides are reviewed. GROSS DESCRIPTION Received in fixative is one container labeled with the patient's name and designated right kidney, CT-guided core biopsy. The specimen consists of multiple irregular fragments of carmona soft tissue that in aggregate measure 1 x 0.1 x <0.1 cm. The entire specimen is submitted in one cassette. Six touch imprints (4 stained with DQ and 2 stained with pap) were prepared at the time of core biopsies. / SAMIA:nisha 04/06/19 TC:0 CPT: 79811, 77206, 46319
== END ==
PROVIDERS: Family Provider Family Medicine; PCP Family Medicine; Referring Provider Internal Medicine Medical Oncology; Visit Provider Internal Medicine Medical Oncology
DX: Z01.818 Encounter for other preprocedural examination (principal); C64.1 Malignant neoplasm of right kidney, except renal pelvis; Z79.01 Long term (current) use of anticoagulants
CPT/HCPCS: 50200; 36415; 77012; 85025; 85610; 85730; 88172; 88305; 88313; 99153; 99156; 99157; J7040; A4216

== ENCOUNTER 2019-07-03 08:04 | Inpatient (IN) | payer MEDICARE, SELFPAY ==
[2019-06-29 08:48] VITALS: BMI 43.2
[2019-07-03] VITALS (25 sets, daily range): BP systolic 94–155; BP diastolic 50–92; PULSE 78–174; RESP 17–36; TEMP 36.4–37; O2SAT 94–98; BMI 43.4; BMI 42.7
--- NOTE | 2019-07-03 08:12 | EKG12_ITS ---
Test Reason : CP Blood Pressure : / mmHG Vent. Rate : 175 BPM Atrial Rate : 182 BPM P-R Int : 000 ms QRS Dur : 092 ms QT Int : 282 ms P-R-T Axes : 000 021 022 degrees QTc Int : 481 ms Atrial fibrillation with rapid ventricular response Nonspecific ST abnormality Abnormal ECG Confirmed by ZARA BUSBY, GREG ([id number]), online editor MIKY MYERS ([id number]) on 07/05/2019 11:42:12 AM Referred By: Natalio Lund Confirmed By:GREG ZUÑIGA MD
--- NOTE | 2019-07-03 08:12 | RAD_ITS ---
STUDY: X-RAY CHEST REASON FOR EXAM: Male, 63 years old. Chest pain. TECHNIQUE: Single AP portable view of the chest. COMPARISON: Comparison is made with prior study dated May 24, 2018. FINDINGS: EKG electrodes are seen. There is evidence of a pleural thickening along the lateral aspect of the right hemithorax. This is unchanged. Scattered calcified granulomas. Mild increased markings at the lung bases suggestive of scarring. There is a 1.3 cm x 1.1 cm well-defined nodular density in the right lower lobe. This was not seen on prior study. A metastatic deposit should be ruled out. Normal size heart. Normal mediastinum and yessi. Normal visualized pulmonary arteries. Normal visualized aortic arch and descending thoracic aorta. There are diffuse degenerative changes of the visualized thoracic spine. Normal visualized ribs, clavicles, and shoulders. There is no demonstrated abnormality of the visualized soft tissue structures of the upper abdomen. RAD/Chest 1 View (Portable) IMPRESSION: There is a new 1.3 cm x 1.1 cm nodule in the right lower lobe. Mild increased markings at the lung bases suggestive of bilateral basilar scarring. Electronically Signed: Horacio Thacker, at 8:36 EST , Service support ,
--- NOTE | 2019-07-03 08:19 | ED.DCSUM_ITS ---
- ER Visit Summary Date of Service: 07/03/19 Chief Complaint: Accelerated heart rate and chest discomfort. History of Present Illness: The patient is a 63 M history of diabetes, blood clots on Xarelto hypertension and renal cancer. He had one kidney resected due to cancer and the second kidney has cancer also for which she is undergoing chemotherapy currently. States about an hour ago he started having separate heart rate and some chest discomfort. Physical Examination: Older male no acute distress vital signs are stable afebrile. Pulse ox 97% on room air his heart rates 170s. Consistent with A. fib RVR. On the monitor. H EENT exam unremarkable. Neck nontender. Lungs cl ear to auscultation. Heart tachycardic no murmur. Abdomen soft nontender normal bowel sounds no peritoneal signs. Remedies moves all 4. Calves nontender no edema no cords. Neurologically is awake alert with no focal motor deficits. Test Results: EKG is consistent with A. fib RVR rate of 175. No acute signs of ischemia. This x-ray portable one view read by myself shows chronic changes no acute process. CBC white count of 6. Hemoglobin 14. Chemistries unremarkable except BUN 38 creatinine 1.7 he has known renal insufficiency this is his baseline. Glucose 260. Normal gap. Troponin is normal. Emergency Department Course and Treatment: Patient will be treated with IV Cardizem. He is already anticoagulated on Xarelto. Most likely will need admitted. His heart rate is still in A. fib but his rates now currently 1 10-1 20. He will be given a second dose of Cardizem. Treatment Plan: Hospitalist on page for admission for new onset A. fib with RVR Disposition: Admission Impression: New onset A. fib RVR Anticoagulant Xarelto History of renal cancer on chemotherapy History of diabetes History of DVTs and PEs This note was generated with [employer] dictation software. It may contain incorrect words, spelling, and punctuation that were not noted in review of the chart prior to signing ED Disposition - Plan for ED Patient: Referrals: Houston Olson DO [Primary Care Provider] -
[2019-07-03] MEDS: Aspirin 81 MG TAB.CHEW 324 MG PO (08:27)
[2019-07-03] MEDS: dilTIAZem 25 MG/5 ML Vial IV BOLUS (08:32)
[2019-07-03 08:38] LABS: Absolute Lymphocyte Count 1.62 X10^3/uL (0.83-4.51); Absolute Neutrophil Count 4.1 X10^3/uL (2.0-7.7); Basophil# 0.07 X10^3/uL; Eosinophil# 0.25 X10^3/uL; Eosinophils% 3.7 % (0-5); Hematocrit 43.4 % (40-54); Hemoglobin 14.1 g/dL (13.0-16.5); Lymphocyte # 1.62 X10^3/ul (4.0); Lymphocyte % 24.1 % (19-41); Mean Corp Hgb Conc 32.5 g/dL (32-36); Mean Corpuscular Hgb 28.5 pg (27.0-32.0); Mean Corpuscular Volume 87.7 fL (80-94); Mean Platelet Vol. 10.6 fl (6.2-12.0); Monocyte% 10.4 % (0-10); NRBC Flagged by Analyzer 0 % (0-5); Neutrophil # 4.06 X10^3/uL (2.7-7.7); Neutrophil % 60.4 % (47-70); Platelet Count 167 K/mm3 (150-450); RBC Distribution Width CV 14.1 % (11.6-14.6); RBC Distribution Width SD 45.1 fl (35.1-43.9); Red Blood Count 4.95 M/mm3 (4.6-6.2); White Blood Count 6.7 K/mm3 (4.4-11.0)
[2019-07-03 08:44] LABS: Anion Gap 8 (5-15); BUN 38 mg/dL (7-18); BUN/Creat Ratio 22.4 RATIO (10-20); Chloride 108 mmol/L (98-107); EST Glomerular Filtration Rate 43 mL/min (>60); Est Glom Filt Rate - Afr Amer 52 mL/min (>60); Estimated Creatinine Clearance 46.75 ml/min; Glucose 260 mg/dL (74-106); Potassium 4.1 mmol/L (3.5-5.1); Sodium Level 138 mmol/L (136-145)
[2019-07-03] MEDS: dilTIAZem 25 MG/5 ML Vial 20 MG IV BOLUS ×2 (09:55→11:35)
--- NOTE | 2019-07-03 10:20 | ECHOCS_ITS ---
Reason For Study: Afib Procedure This was a 2D Doppler, Color Flow transthoracic echocardiogram. The study was technically difficult. Contrast injection was performed. Exam performed portable in patient room. Left Ventricle Normal LV size. Mild concentric left ventricular hypertrophy. Left ventricular systolic function is normal. The estimated ejection fraction is 55 %. Unable to assess diastolic dysfunction due to arrhythmia. No regional wall motion abnormalities noted. Right Ventricle Normal RV size. Normal systolic function. Atria The left atrium is moderately enlarged. Normal right atrium. Mitral Valve Normal mitral valve. Tricuspid Valve Normal tricuspid valve. Mild (1+) tricuspid valve insufficiency. Pulmonary artery systolic pressure is 30 mmHg. Aortic Valve Normal aortic valve. Pulmonic Valve Normal pulmonic valve. Great Vessels Normal aortic root. The pulmonary artery is normal size. Normal inferior vena cava. Pericardium/Pleural No pericardial effusion. Medication Diluted definity 3ml given slow IV push to enhance endocardial definition. MMode/2D Measurements & Calculations LVIDd: 4.9 cm IVSd: 1.4 cm Ao root diam: 3.1 cm LVIDs: 3.2 cm LVPWd: 1.3 cm RVDd: 3.8 cm FS: 35.0 % LAV(MOD-bp): 79.2 ml LVAd ap4: 38.1 cm2 SV(MOD-sp4): 83.3 ml LAV(MOD-bp) Indexed: 31.3 ml/m2 EDV(MOD-sp4): 137.3 ml LAV(MOD-sp2): 79.9 ml EDV(sp4-el): 144.2 ml LAV(MOD-sp4): 68.8 ml LVAs ap4: 21.1 cm2 ESV(MOD-sp4): 54.0 ml ESV(sp4-el): 55.5 ml EF(MOD-sp4): 60.6 % EF(sp4-el): 61.5 % SV(sp4-el): 88.7 ml LA A4 area: 25.5 cm2 LA dimension(2D): 5.3 cm RA A4 area: 14.1 cm2 Doppler Measurements & Calculations MV E max jazzmine: 117.9 cm/sec Ao V2 max: 126.0 cm/sec LV V1 max: 92.1 cm/sec Ao max P.6 mmHg LV V1 max P.4 mmHg Ao V2 mean: 92.6 cm/sec Ao mean P.9 mmHg Ao V2 VTI: 22.1 cm PA V2 max: 92.3 cm/sec TR max jazzmine: 261.5 cm/sec TR max P.4 mmHg Interpretation Summary Normal LV size. Left ventricular systolic function is normal. Mild concentric left ventricular hypertrophy. The estimated ejection fraction is 55 %. Unable to assess diastolic dysfunction due to arrhythmia. Pulmonary artery systolic pressure is 30 mmHg. Contrast injection was performed. Ordering Physician: Natalio Lund Referring Physician: Houston Olson Performed By: Inga Lin RDCS, RVT
[2019-07-03] MEDS: Rivaroxaban 20 MG Tablet PO (11:43)
[2019-07-03] MEDS: Allopurinol 100 MG Tablet PO (11:44)
[2019-07-03] MEDS: glipiZIDE 5 MG Tablet PO ×2 (11:44→16:56)
[2019-07-03] MEDS: Pantoprazole Sodium 40 MG Tablet PO (11:44)
[2019-07-03] MEDS: Finasteride 5 MG Tablet PO (11:45)
--- NOTE | 2019-07-03 16:46 | HP.PCM_ITS ---
Problem List (1) Encounter for education Status: Acute (2) Viral URI Status: Resolved (3) Renal cell cancer Status: Chronic Qualifiers: (4) Gout Status: Chronic (5) Hypertension Status: Chronic Qualifiers: Hypertension type: unspecified Qualified Code(s): I10 - Essential (primary) hypertension (6) Acid reflux Status: Acute (7) Hx pulmonary embolism Status: Acute (8) DVT (deep venous thrombosis) Status: Chronic Qualifiers: DVT location: lower extremity Affected thrombotic vein of extremity: unspecified vein of extremity Chronicity: unspecified Laterality: unspecified laterality Qualified Code(s): I82.409 - Acute embolism and thrombosis of unspecified deep veins of unspecified lower extremity (9) History of right hip replacement Status: Chronic (10) Hx of unilateral nephrectomy Status: Chronic Comment: Left (11) Hx of tonsillectomy Status: Chronic (12) Abnormal CT of the abdomen Status: Chronic Comment: Multiple lung nodules seen in the base of the lungs, liver lesion also seen unable to see well as patient cannot have contrast used to his creatinine and history of left nephrectomy. (13) Metastatic 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 Status: Chronic Qualifiers: Laterality: unspecified laterality Qualified Code(s): C78.00 - Secondary malignant neoplasm of unspecified lung; C64.9 - Malignant neoplasm of unspecified kidney, except renal pelvis History of Present Illness Date of Admission: 07/03/19 Chief Complaint: palpitations The patient is a 63 year old M who was awakened at approximately 7:30 AM experienced palpitations and chest pain. The chest pain did not radiate but the palpitations persisted. Associated with diaphoresis and the patient presented to the emergency room. Patient was noted to be in atrial fibrillation with RVR with a heart rate in the 170s. He did receive diltiazem which did help drop him into the 1 teens only to subsequent go back up into the 150s where he received another dose of diltiazem. His heart rate at that time was controlled into the 90s but upon arrival to the floor, jump back into the 140s to 150s. He received an additional 20 mg of IV diltiazem and then started on a diltiazem drip or his heart rate has been in the high 90s to low 100s. Patient states that he has had periods of palpitations before but were very short-lived and he never sought attention for them before he has no prior history of atrial fibrillation. [] Past Medical History Past Medical History (Chronic Problems): Chronic Problems (Last Reviewed 06/29/19 @ 08:47 by Kailey Donahue) Renal cell cancer (Chronic) Gout (Chronic) Hypertension (Chronic) DVT (deep venous thrombosis) (Chronic) History of right hip replacement (Chronic) Hx of unilateral nephrectomy (Chronic) Left Hx of tonsillectomy (Chronic) Abnormal CT of the abdomen (Chronic) Multiple lung nodules seen in the base of the lungs, liver lesion also seen unable to see well as patient cannot have contrast used to his creatinine and history of left nephrectomy. Metastatic 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 (Chronic) Medical History: Medical History (Last Reviewed 07/03/19 @ 16:50 by Natalio Lund DO) Encounter for education (Acute) E66.9 Viral URI (Resolved) M19.90 Renal cell cancer (Chronic) C64.9 Back problem (Acute) M53.9 Gout (Acute) M10.9 Hypertension (Chronic) I10 Shortness of breath (Acute) R06.02 Acid reflux (Acute) K21.9 Hx pulmonary embolism (Acute) Z86.711 DVT (deep venous thrombosis) (Acute) I82.409 Allergies Penicillins Allergy (Unknown, Verified 07/03/19 08:05) Unknown Home Medications: Ambulatory Orders Medication Instructions Recorded Lisinopril/Hydrochlorothiazide 2 tab PO DAILY 11/09/14 [Zestoretic 20/12.5 Tablet] Tamsulosin HCl [Flomax] 0.4 mg PO BID 11/09/14 Allopurinol [Zyloprim] 100 mg PO DAILYCM 05/03/15 Finasteride [Proscar] 5 mg PO DAILY 05/03/15 Rivaroxaban [Xarelto] 20 mg PO DAILY@0600 #30 tab 05/22/15 Glipizide [Glipizide Xl] 5 mg PO BID 02/13/19 pantoprazole 40 mg tablet,delayed 40 mg PO DAILY #30 tab 05/08/19 release Surgical History: Surgical History (Last Reviewed 07/03/19 @ 16:50 by Natalio Lund DO) History of right hip replacement (Chronic) Z96.641 Hx of unilateral nephrectomy (Chronic) Z90.5 Left Hx of tonsillectomy (Chronic) Z90.89 Surgical History: - Psychiatric History: No pertinent psych hx Smoking Status: Never smoker - *Family History Maternal Family History: Family History (Last Updated 07/03/19 @ 16:50 by Natalio Lund DO) Mother Diabetes Heart disease Kidney disease Hypertension CVA (cerebral vascular accident) Father Heart disease History Items: Unknown Review of Systems Constitutional: Denies: Anorexia, Chills, Fever, Night Sweats Eyes: Denies: Blurred vision, Double vision HEENT: Denies: Head Aches, Sinus Congestion, Sinus Drainage Cardiovascular: Reports: Chest Pain, Palpitations. Denies: Edema Respiratory: Denies: Cough, Shortness of breath at rest, Sputum production Gastrointestinal: Denies: Abdominal Pain, Nausea, Vomiting Genitourinary: Denies: Dysuria Musculoskeletal: Denies: Joint Pain, Joint Tenderness Skin: Denies: Rash, Wounds Neurological: Denies: Numbness, Tingling, Focal weakness Psychiatric: Denies: Anxiety, Depression Endocrine: Denies: Change in Body Habitus, Heat/ Cold Intolerance Hematologic/ Lymphatic: Reports: Hx of blood clot. Denies: Easy Bruising, Easy Bleeding Comment: All review systems are otherwise negative except for as mentioned above and in HPI. VTE Information - Inpt Only VTE Present on Admission: No VTE Mechan Device Prophylaxis: None VTE Pharm Prophylaxis ordered?: No Reason prophylaxis not ordered:: Procedure Not Indicated - Physical Exam Vitals/I&O's: Vital Signs Temp Pulse Resp BP Pulse Ox 36.9 C 99 19 H 122/56 H 98 07/03/19 11:50 07/03/19 15:20 07/03/19 15:20 07/03/19 15:20 07/03/19 15:20 Oxygen Flow Rate (L/min) 2 Oxygen Delivery Method Room Air Weight: 138.8 kg Body Mass Index (BMI) 42.7 Intake and Output for Last 24 Hours 07/01/19 07/02/19 07/03/19 23:59 23:59 23:59 Intake Total 497.50 / 497.50 Balance 497.50 / 497.50 General: Alert, Cooperative, No apparent distress HEENT: Atraumatic, Normocephalic Oral: Moist Mucosa, No Gingival or Mucosal Lesions/ Ulcerations Neck: No Nodes, Trachea Midline Lungs: Clear to auscultation, Normal air movement, No rhonchi, No wheeze, No rales Cardiovascular: Regular rate, Regular Rhythm, No murmurs Abdomen: Bowel Sounds Present, Soft, Non Tender, Non-Distended, No Hepato- splenomegaly Extremities: No edema, No Calf Tenderness Skin: No rashes, No breakdown Musculoskeletal: No Tenderness to Palpation of Joints or Extremities, No Muscle Wasting Neurological: Deep Tendon Reflexes 2+/4 and Symmetrical, - - no clonus Psych/Mental Status: Normal Affect, Appropriate Laboratory Results 07/03/19 08:15: WBC 6.7, RBC 4.95, Hgb 14.1, Hct 43.4, MCV 87.7, MCH 28.5, MCHC 32.5, RDW Std Deviation 45.1 H, RDW Coeff of Shanell 14.1, Plt Count 167, MPV 10.6, Immature Gran % (Auto) 0.400, Neut % (Auto) 60.4, Lymph % (Auto) 24.1, [place] % (Auto) 10.4 H, Eos % (Auto) 3.7, Baso % (Auto) 1.0, Absolute Neuts (auto) 4.1, Absolute Lymphs (auto) 1.62, Nucleated RBC % 0 07/03/19 08:15: Sodium 138, Potassium 4.1, Chloride 108 H, Carbon Dioxide 22.0, Anion Gap 8, BUN 38 H, Creatinine 1.70 H, Estim Creat Clear Calc 46.75, Est GFR (MDRD) Af Amer 52 L, Est GFR (MDRD) Non-Af 43 L, BUN/Creatinine Ratio 22.4 H, Glucose 260 H, Calcium 9.0, Troponin I < 0.015 07/03/19 11:32: Troponin I < 0.015 07/03/19 14:05: Troponin I < 0.015 EKG was reviewed and showed atrial fibrillation with RVR. Current Medications Acetaminophen (Tylenol) 650 mg PO Q6H PRN PRN PRN Reason: Pain Score 1-3/Temp > 100.7 F [facility] Last Admin: 07/03/19 11:44 Dose: 100 mg Documented by: Finasteride (Proscar) 5 mg PO DAILY [facility] Last Admin: 07/03/19 11:45 Dose: 5 mg Documented by: Glipizide (Glucotrol) 5 mg PO BIDCM [facility] Last Admin: 07/03/19 11:44 Dose: 5 mg Documented by: Hydrochlorothiazide () 25 mg PO DAILY [facility] Diltiazem HCl 125 mg/ Dextrose 125 mls @ 5 mls/hr IV .Q25H [facility]; Protocol Last Titration: 07/03/19 15:20 Dose: 5 mg/hr, 5 mls/hr Documented by: Insulin Human Lispro (Humalog Kwikpen (Bkc)) 0 unit SC ACHS [facility]; Protocol Lisinopril (Zestril) 40 mg PO DAILY [facility] Ondansetron HCl (Zofran) 4 mg IV Q8H PRN PRN PRN Reason: NAUSEA/VOMITING Pantoprazole Sodium (Protonix) 40 mg PO DAILY [facility] Last Admin: 07/03/19 11:44 Dose: 40 mg Documented by: Rivaroxaban (Xarelto) 20 mg PO DAILY@0600 [facility] Last Admin: 07/03/19 11:43 Dose: 20 mg Documented by: Sodium Chloride () 10 - 40 ml IV UD PRN PRN Reason: SALINE FLUSH Tamsulosin HCl (Flomax) 0.4 mg PO BID@0830,1730 [facility] Last Admin: 07/03/19 11:44 Dose: Not Given Documented by: Assessment/Plan All Active Problems (Last Reviewed 06/29/19 @ 08:47 by Kailey Donahue) Encounter for education (Acute) Viral URI (Resolved) Acid reflux (Acute) Hx pulmonary embolism (Acute) 1. Acute atrial fibrillation with RVR * Currently heart rate controlled on diltiazem drip * Already anticoagulated with rivaroxaban that he takes for VTE * Echocardiogram ordered and results pending * Cardiology consultation * Patient may have very well and had atrial fibrillation in the past this patient does endorse that he has had palpitations in the past. Though that is not specific for atrial fibrillation 2. 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 VTE * chronic * on rivaroxaban 4. ACP: dw patient. He wishes for DNR CCA at this time. SAMANTHA family at bedside. Code Visit Inpatient E&M: 93501 Init Hosp L3
[2019-07-03] MEDS: Tamsulosin HCl 0.4 MG Capsule PO (16:55)
[2019-07-03] MEDS: Insulin Lispro 100 UNIT/ML INSULN.PEN SC ×2 (16:55→21:28)
[2019-07-03 17:10] LABS: Bedside Glucose 228 mg/dL (70-110)
--- NOTE | 2019-07-03 17:22 | CON.PCM_ITS ---
Reason for Consult Date of Consultation: 07/03/19 History of Present Illness: The patient is a 63 year old M with a history of hypertension, previous deep vein thrombosis and pulmonary emboli, and metastatic renal cell carcinoma who presented today because of palpitations. He says that he was awoken from bed with the above. He thinks that he has had episodes in the past of irregular heartbeat but has not really sought medical attention for this. He did not have any significant chest discomfort he did have some shortness of breath he is not had any pedal edema. He has been compliant with his anticoagulation. In the emergency room he was noted to be in atrial fibrillation with a rapid ventricular response rate and he was admitted for further evaluation and management. Cardiology was called to assist in his management. [] Past Medical History Allergies/Adverse Reactions: Allergies Penicillins Allergy (Unknown, Verified 07/03/19 08:05) Unknown Home Medications: Ambulatory Orders Medication Instructions Recorded Lisinopril/Hydrochlorothiazide 2 tab PO DAILY 11/09/14 [Zestoretic 20/12.5 Tablet] Tamsulosin HCl [Flomax] 0.4 mg PO BID 11/09/14 Allopurinol [Zyloprim] 100 mg PO DAILYCM 05/03/15 Finasteride [Proscar] 5 mg PO DAILY 05/03/15 Rivaroxaban [Xarelto] 20 mg PO DAILY@0600 #30 tab 05/22/15 Glipizide [Glipizide Xl] 5 mg PO BID 02/13/19 pantoprazole 40 mg tablet,delayed 40 mg PO DAILY #30 tab 05/08/19 release Past Medical History (Chronic Problems): Chronic Problems (Last Reviewed 07/03/19 @ 16:50 by Natalio Lund DO) Renal cell cancer (Chronic) Gout (Chronic) Hypertension (Chronic) DVT (deep venous thrombosis) (Chronic) History of right hip replacement (Chronic) Hx of unilateral nephrectomy (Chronic) Left Hx of tonsillectomy (Chronic) Abnormal CT of the abdomen (Chronic) Multiple lung nodules seen in the base of the lungs, liver lesion also seen unable to see well as patient cannot have contrast used to his creatinine and history of left nephrectomy. Metastatic 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 (Chronic) Surgical History: - Psychiatric History: No pertinent psych hx - *Family History Maternal Family History: Family History (Last Updated 07/03/19 @ 16:50 by Natalio Lund DO) Mother Diabetes Heart disease Kidney disease Hypertension CVA (cerebral vascular accident) Father Heart disease History Items: Unknown Smoking Status: Never smoker Alcohol: None Drugs: None Review of Systems - Review of Systems General: Denies: Fever, Night Sweats, Fatigue HEENT: Denies: Vision Change Cardiovascular: Reports: Palpitations. Denies: Chest Discomfort, Shortness of Breath, Orthopnea, PND, Peripheral Edema, Lightheadedness, Dizziness, Near Syncope, Syncope Respiratory: Denies: Cough, Sputum Production, Hemoptysis Gastrointestinal: Denies: Hematemesis, Hematochezia, Melena Genitourinary: Denies: Dysuria, Hematuria Muscoloskeletal: Denies: Myalgias Skin: Denies: Rash Neurological: Denies: Dizziness Psychiatric: Denies: Anxiety Endocrine: Denies: Heat Intolerance Hematologic/ Lymphatic: Denies: Lymph Node Enlargement Subjectve: Patient seen and evaluated Objective: Vital Signs Temp Pulse Resp BP Pulse Ox 98.5 F 99 19 H 122/56 H 98 07/03/19 11:50 07/03/19 15:20 07/03/19 15:20 07/03/19 15:20 07/03/19 15:20 Oxygen Flow Rate (L/min) 2 Oxygen Delivery Method Room Air Weight: 306 lb 0.026 oz Body Mass Index (BMI) 42.7 Intake and Output for Last 24 Hours 07/01/19 07/02/19 07/03/19 23:59 23:59 23:59 Intake Total 497.50 / 497.50 Balance 497.50 / 497.50 General: Awake, Alert, Oriented x 3 HEENT: PERRL, EOMI, Sclera Non Icteric Neck: Supple, Good ROM, No Lymph Node Enlargement Chest Wall: Midline Sternotomy Incision Lungs: Clear to auscultation Cardiovascular: Irregular Rhythm, Normal S1, Normal S2, No Murmurs, No Rubs, No Gallops Vascular: No Carotid Bruits, Normal Femoral Pulses, Normal Radial Pulses, Normal Dorsalis Pedal Pulse, Normal Posterior Tibial Pulses Abdomen: Bowel Sounds Present, Soft, Non Tender, No HSM, No Organomegaly Extremities: No Cyanosis, No Clubbing, No edema Musculoskeletal: No Erythema Skin: No Rashes Lymphatic: No Lymph Node Enlargement Neurological: No Focal Motor or Sensory Deficit Psych/Mental Status: Appropriate 12/09/19 08:15: WBC 6.7, RBC 4.95, Hgb 14.1, Hct 43.4, MCV 87.7, MCH 28.5, MCHC 32.5, Plt Count 167, MPV 10.6, Immature Gran % (Auto) 0.400, Neut % (Auto) 60.4, Lymph % (Auto) 24.1, [place] % (Auto) 10.4 H, Eos % (Auto) 3.7, Baso % (Auto) 1.0, Absolute Neuts (auto) 4.1, Nucleated RBC % 0 07/03/19 08:15: Sodium 138, Potassium 4.1, Chloride 108 H, Carbon Dioxide 22.0, Anion Gap 8, BUN 38 H, Creatinine 1.70 H, Est GFR (MDRD) Af Amer 52 L, Est GFR (MDRD) Non-Af 43 L, BUN/Creatinine Ratio 22.4 H, Glucose 260 H, Calcium 9.0, Troponin I < 0.015 07/03/19 11:32: Troponin I < 0.015 07/03/19 14:05: Troponin I < 0.015 Rhythm: EKG: ECHO: Stress Test: Cardiac Cath: PCI: CT Surgery: Holter monitor: EPS: PPM: CXR: Chest CT Scan: Assessment/Plan 1. Atrial fibrillation with rapid ventricular response rate * Patient presents with atrial fibrillation with a rapid ventricular response rate. * His echocardiogram demonstrates preserved ejection fraction at this particular time. He is already anticoagulated. My recommendation will be for us to rate control him better. I would recommend that we switch him to metoprolol 50 mg twice daily starting dose this evening. He needs to be on chronic anticoagulation and at this time I do not think there is a reason to attempt to convert him to sinus rhythm. * 2. Hypertension * Continue current beta-og dose for better control of his blood pressure. * * * Thank you for allowing me to participate in the care of your patient. Please don't hesitate to call if any issues arise
--- NOTE | 2019-07-03 20:34 | EKG12_ITS ---
Test Reason : COUGH Blood Pressure : / mmHG Vent. Rate : 081 BPM Atrial Rate : 081 BPM P-R Int : 142 ms QRS Dur : 094 ms QT Int : 346 ms P-R-T Axes : 059 016 018 degrees QTc Int : 401 ms Normal sinus rhythm Normal ECG Confirmed by GENESIS YU ([id number]), desk editor ROMAN KUMAR ([id number]) on 07/12/2019 1:02:53 PM Referred By: Natalio Lund Confirmed By:GENESIS YU
[2019-07-03] MEDS: Metoprolol Tartrate 50 MG Tablet PO (21:28)
[2019-07-03 22:01] LABS: Bedside Glucose 299 mg/dL (70-110)
[2019-07-04 02:00] VITALS: BP 117/62; PULSE 76; RESP 18; TEMP 37; O2SAT 95
[2019-07-04 03:00] VITALS: PULSE 74
[2019-07-04] MEDS: Insulin Lispro 100 UNIT/ML INSULN.PEN SC (06:29)
[2019-07-04] MEDS: Rivaroxaban 20 MG Tablet PO (06:29)
[2019-07-04 06:36] LABS: Bedside Glucose 186 mg/dL (70-110)
[2019-07-04 07:00] VITALS: PULSE 78
--- NOTE | 2019-07-04 07:45 | PN.CARD_ITS ---
Subjectve: Patient seen and evaluated. Appears to be better. Converted to sinus rhythm yesterday Objective: Vital Signs Temp Pulse Resp BP Pulse Ox 98.6 F 78 18 117/62 95 07/04/19 02:00 07/04/19 07:00 07/04/19 02:00 07/04/19 02:00 07/04/19 02:00 Oxygen Flow Rate (L/min) 2 Oxygen Delivery Method Room Air Weight: 306 lb 0.026 oz Body Mass Index (BMI) 42.7 Intake and Output for Last 24 Hours 07/02/19 07/03/19 07/04/19 23:59 23:59 23:59 Intake Total 1256.16 / 1256.16 150 / 150 Balance 1256.16 / 1256.16 150 / 150 General: Awake, Alert, Oriented x 3 HEENT: PERRL, EOMI, Sclera Non Icteric Neck: Supple, Good ROM, No Lymph Node Enlargement Lungs: Clear to auscultation Cardiovascular: Regular Rhythm, Normal S1, Normal S2, No Murmurs, No Rubs, No Ga llops Vascular: No Carotid Bruits, Normal Femoral Pulses, Normal Radial Pulses, Normal Dorsalis Pedal Pulse, Normal Posterior Tibial Pulses Abdomen: Bowel Sounds Present, Soft, Non Tender, No HSM, No Organomegaly Extremities: No Cyanosis, No Clubbing, No edema Musculoskeletal: No Erythema Skin: No Rashes Lymphatic: No Lymph Node Enlargement Neurological: No Focal Motor or Sensory Deficit Psych/Mental Status: Appropriate 07/03/19 08:15: WBC 6.7, RBC 4.95, Hgb 14.1, Hct 43.4, MCV 87.7, MCH 28.5, MCHC 32.5, Plt Count 167, MPV 10.6, Immature Gran % (Auto) 0.400, Neut % (Auto) 60.4, Lymph % (Auto) 24.1, [place] % (Auto) 10.4 H, Eos % (Auto) 3.7, Baso % (Auto) 1.0, Absolute Neuts (auto) 4.1, Nucleated RBC % 0 07/03/19 08:15: Sodium 138, Potassium 4.1, Chloride 108 H, Carbon Dioxide 22.0, Anion Gap 8, BUN 38 H, Creatinine 1.70 H, Est GFR (MDRD) Af Amer 52 L, Est GFR (MDRD) Non-Af 43 L, BUN/Creatinine Ratio 22.4 H, Glucose 260 H, Calcium 9.0, Tr oponin I < 0.015 07/03/19 11:32: Troponin I < 0.015 07/03/19 14:05: Troponin I < 0.015 Rhythm: EKG: ECHO: Stress Test: Cardiac Cath: PCI: CT Surgery: Holter monitor: EPS: PPM: CXR: Chest CT Scan: Medical Necessity - Tobacco Use Smoking Status: Never smoker Assessment/Plan 1. Atrial fibrillation with rapid ventricular response rate * Patient presents with atrial fibrillation with a rapid ventricular response rate. * His echocardiogram demonstrates preserved ejection fraction at this particular time. He is already anticoagulated. * He was switched to beta-og yesterday converted back to sinus rhythm. The plan will be to continue him on anticoagulation and the beta-og and he can be discharged for outpatient follow-up. * 2. Hypertension * Continue current beta-og dose for better control of his blood pressure. * Continue SAUL inhibitor as well * * Thank you for allowing me to participate in the care of your patient. Please don't hesitate to call if any issues arise * * Follow-up in my office in 2 to 4 weeks. My office will call him for appointment.
[2019-07-04] MEDS: glipiZIDE 5 MG Tablet PO (07:47)
[2019-07-04] MEDS: Tamsulosin HCl 0.4 MG Capsule PO (07:47)
[2019-07-04] MEDS: Allopurinol 100 MG Tablet PO (07:47)
[2019-07-04 07:52] VITALS: BP 130/63; PULSE 78; RESP 18; TEMP 36.6; O2SAT 94
[2019-07-04 09:04] VITALS: PULSE 78
[2019-07-04] MEDS: Lisinopril 20 MG Tablet 40 MG PO (09:04)
[2019-07-04] MEDS: Metoprolol Tartrate 50 MG Tablet PO (09:04)
[2019-07-04] MEDS: hydroCHLOROthiazide 12.5mg 25 MG PO (09:04)
[2019-07-04] MEDS: Pantoprazole Sodium 40 MG Tablet PO (09:04)
[2019-07-04] MEDS: Finasteride 5 MG Tablet PO (09:04)
--- NOTE | 2019-07-04 10:43 | CASEMGMT ---
Case Management Progress Note: This com writer went to patient bedside to complete initial assessment, patient appears not at bedside during this moment. Cm will continue to follow for assessment and any care coordination needs. Mary Cornell RNCM
[2019-07-04 11:26] LABS: Bedside Glucose 370 mg/dL (70-110)
--- NOTE | 2019-07-04 11:52 | PCM.DC ---
You will use the following diet at home:: No restrictions Your food should be the consistency of: Regular Your liquids should be the consistency of: Regular/Thin Discharge Activity: Return to Normal Activity Call your doctor if you observe: Fever of 101 or Higher, Shortness of breath, Dizziness, Fainting spells, Increased palpitations (irregular heartbeat) Allergies/Adverse Reactions: Allergies Penicillins Allergy (Unknown, Verified 07/03/19 08:05) Unknown Medications to take at Discharge Lisinopril/Hydrochlorothiazide [Zestoretic 20/12.5 Tablet] 2 tab PO DAILY 11/09/14 Tamsulosin HCl [Flomax] 0.4 mg PO BID 11/09/14 Allopurinol [Zyloprim] 100 mg PO DAILYCM 05/03/15 Finasteride [Proscar] 5 mg PO DAILY 05/03/15 Rivaroxaban [Xarelto] 20 mg PO DAILY@0600 #30 tab 05/22/15 Glipizide [Glipizide Xl] 5 mg PO BID 02/13/19 pantoprazole 40 mg tablet,delayed release 40 mg PO DAILY #30 tab 05/08/19 Metoprolol Tartrate [Lopressor (beta og)] 50 mg PO BID #60 tab 07/04/19 The following prescriptions were given: Metoprolol Tartrate [Lopressor (beta og)] 50 mg PO BID #60 tab Transmission Status: Pending to [facility] Primary Care Physician: Houston Olson DO [Primary Care Provider] - Within 2 Weeks Test Results: Test results from this visit will be discussed in further detail at your follow-up appointment, if applicable. Please Follow Up With: Patrice Loja MD - cardiology When: 4 weeks Please Follow Up With: Jeffrey Kuhn MD When: 07/10/19 Proposed Discharge Date: 07/04/19
--- NOTE | 2019-07-04 11:54 | PCM.DC.SUM ---
Discharge Date and Diagnosis Date of Admission: 07/03/19 Date of Discharge: 07/04/19 - Primary Discharge Diagnosis afib with rvr - Secondary Discharge Diagnosis Chronic Problems (Last Reviewed 07/03/19 @ 16:50 by Natalio Lund DO) Renal cell cancer (Chronic) Gout (Chronic) Hypertension (Chronic) DVT (deep venous thrombosis) (Chronic) History of right hip replacement (Chronic) Hx of unilateral nephrectomy (Chronic) Left Hx of tonsillectomy (Chronic) Abnormal CT of the abdomen (Chronic) Multiple lung nodules seen in the base of the lungs, liver lesion also seen unable to see well as patient cannot have contrast used to his creatinine and history of left nephrectomy. Metastatic 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 (Chronic) Hospital Course and Treatment Imaging Results: Clinical Impression(s) from Imaging Studies Chest X-Ray 07/03/19 08:12 IMPRESSION: There is a new 1.3 cm x 1.1 cm nodule in the right lower lobe. Mild increased markings at the lung bases suggestive of bilateral basilar scarring. Electronically Signed: Horacio Thacker, at 8:36 EST , Service support , Patrice Loja MD: cardiology Operations: None Procedures: 2-D Echocardiogram Summary of Care Provided: The patient is a 63 year old M presents with palpitations. The palpitations began around 0 30 on 07/03. Patient was found to be in atrial fibrillation with RVR. Patient received 2 rounds of IV diltiazem in the emergency room which did temporarily improve his tachycardia but only to become tachycardic again. On the floor, patient received another round of IV diltiazem followed by a drip. Patient subsequent converted to normal sinus rhythm and then transition over to metoprolol. Patient had echocardiogram that showed ejection fraction of 55%. Patient was evaluated by cardiology and patient did not require any anticoagulation as he was already on apixaban for history of venous thromboembolic disease. Patient to follow-up with cardiology in 4 weeks. [] - Physical Exam Vitals/I&O's: Vital Signs Temp Pulse Resp BP Pulse Ox 36.6 C 78 18 130/63 H 94 07/04/19 07:52 07/04/19 09:04 07/04/19 07:52 07/04/19 07:52 07/04/19 07:52 Oxygen Flow Rate (L/min) 2 Oxygen Delivery Method Room Air Weight: 138.8 kg Body Mass Index (BMI) 42.7 Intake and Output for Last 24 Hours 07/02/19 07/03/19 07/04/19 23:59 23:59 23:59 Intake Total 1256.16 / 1256.16 150 / 150 Balance 1256.16 / 1256.16 150 / 150 General: Alert, No apparent distress HEENT: Atraumatic, Normocephalic Oral: Moist Mucosa, No Gingival or Mucosal Lesions/ Ulcerations Neck: No Nodes, Trachea Midline Lungs: Clear to auscultation, Normal air movement, No rhonchi, No wheeze Cardiovascular: Regular rate, Regular Rhythm, Normal S1, Normal S2, No murmurs Abdomen: Bowel Sounds Present, Soft, Non Tender, Non-Distended, Obese Laboratory Results 07/03/19 11:32: Troponin I < 0.015 07/03/19 14:05: Troponin I < 0.015 07/03/19 16:43: POC Glucose 228 H 07/03/19 21:27: POC Glucose 299 H 07/04/19 05:40: TSH 1.90 07/04/19 06:27: POC Glucose 186 H 07/04/19 11:19: POC Glucose 370 H Current Medications Acetaminophen (Tylenol) 650 mg PO Q6H PRN PRN PRN Reason: Pain Score 1-3/Temp > 100.7 F [facility] Admin: 07/04/19 07:47 Dose: 100 mg Documented by: Finasteride (Proscar) 5 mg PO DAILY [facility] Last Admin: 07/04/19 09:04 Dose: 5 mg Documented by: Glipiz[facility]Glucotrol) [facility] Last Admin: 07/04/19 07:47 Dose: 5 mg Documented by: Hydrochlorothiazide () 25 mg PO DAILY [facility] Last Admin: 07/04/19 09:04 Dose: 25 mg Documented by: Insulin Human Lispro (Humalog Kwikpen (Bkc)) 0 unit [facility]; Protocol Last Admin: 07/04/19 06:29 Dose: 1 units Documented by: Lisinopril (Zestril) 40 mg PO DAILY [facility] Last Admin: 07/04/19 09:04 Dose: 40 mg Documented by: Metoprolol Tartrate (Lopressor (Beta Jeffrey)) 50 mg PO BID [facility] Last Admin: 07/04/19 09:04 Dose: 50 mg Documented by: Ondansetron HCl (Zofran) 4 mg IV Q8H PRN PRN PRN Reason: NAUSEA/VOMITING Pantoprazole Sodium (Protonix) 40 mg PO DAILY [facility] Last Admin: 07/04/19 09:04 Dose: 40 mg Documented by: Rivaroxaban (Xarelto) 20 mg PO DAILY@0600 [facility] Last Admin: 07/04/19 06:29 Dose: 20 mg Documented by: Sodium Chloride () 10 - 40 ml IV UD PRN PRN Reason: SALINE FLUSH Tamsulosin HCl (Flomax) 0.4 mg PO BID@0830,1730 [facility] Last Admin: 07/04/19 07:47 Dose: 0.4 mg Documented by: Discharge Diet: No Restrictions Discharge Activity: Return to Normal Activity Call your doctor if you observe: Fever of 101 or Higher, Shortness of breath, Dizziness, Fainting spells, Increased palpitations (irregular heartbeat) Home Medications: Medications to take at Discharge Lisinopril/Hydrochlorothiazide [Zestoretic 20/12.5 Tablet] 2 tab PO DAILY 11/09/14 Tamsulosin HCl [Flomax] 0.4 mg PO BID 11/09/14 Allopurinol [Zyloprim] 100 mg PO DAILYCM 05/03/15 Finasteride [Proscar] 5 mg PO DAILY 05/03/15 Rivaroxaban [Xarelto] 20 mg PO DAILY@0600 #30 tab 05/22/15 Glipizide [Glipizide Xl] 5 mg PO BID 02/13/19 pantoprazole 40 mg tablet,delayed release 40 mg PO DAILY #30 tab 05/08/19 Metoprolol Tartrate [Lopressor (beta jeffrey)] 50 mg PO BID #60 tab 07/04/19 Following Prescrptions Were Given to Patient: Metoprolol Tartrate [Lopressor (beta jeffrey)] 50 mg PO BID #60 tab Transmission Status: Pending to [facility] Primary Care Physician: Whitney,[place], DO [Primary Care Provider] - Within 2 Weeks Please Follow Up With: Patrice Loja MD - cardiology When: 4 weeks Please Follow Up With: Jeffrey Kuhn MD When: 07/10/19 Disposition: Home Minutes spent on discharge:: 28 Patient Condition:: Good Medical Necessity - Tobacco Use Smoking Status: Never smoker Meaningful Use Info Meaningful Use Diagnoses (Choose all that apply): None applicable Code Visit OBSV E&M: 38283 Observation care discharge
--- NOTE | 2019-07-04 11:59 | CASEMGMT ---
RN CM Assessment Introduced role of RN CM to patient and patient girlfriend Heidi at bedside.? Patient is alert, oriented and able?to participate in RN CM Assessment. ?Care providers, pharmacy, and demographics verified. Presentation: Palpitations, CP Admit Dx: Afib RVR Re-Admit: No Barriers/Issues: None, patient states that copay for Xarelto is high but he gets it because he has to have it, this ad writer discussed and provided him with a Xarelto Coupon Card. States he is currently undergoing Chemo for Kidney CA and states has discussed a cheaper anticoagulant alternative with his provider but d/t Chemo he is limited. PCP: [place] Olson Specialists: Onc- Dr Kuhn Preferred Pharmacy: [facility] Insurance: [facility] Rx Benefit:?Yes ?LNOK: Olu Wright LW/HPOA: [facility] has both, aware not on file with [facility] and if brought in will scan a copy on file. HPOA- Olu Wright Living Arrangements:? Lives alone in a H, 2 steps to enter ADL?s: Independent with ambulation and ADLs Transportation: Patient drives and denies any transportation issues. DME: None HHC: None SNF: None Goal: Home and does not think will have any needs. Denies any issues, concerns, or questions with DC planning at this time. Aware CM remains available for any emerging needs. DC PLAN: Home with no anticipated needs identified at this time. LORI Herzog
--- NOTE | 2019-07-04 12:29 | PHA.DC.MC ---
Pharmacy Service has performed discharge medication reconciliation and counseling for this patient. The patient's discharge medication list was reviewed for discrepancies and discrepancies were resolved. The patient was counseled on the following discharge medications and changes in medications for homegoing were reviewed. 1. METOPROLOL TARTRATE The Reason for Use, instructions for use, and potential side effects were reviewed for all new medications. The patient's questions regarding all of their medications were answered. The patient was able to verbally demonstrate an understanding of their discharge medications.
--- NOTE | 2019-07-05 16:36 | CASEMGMT ---
Case Management DC F/u call: DC Date: 07/04/19 DC Diagnosis: afib with rvr DC Disposition: Home Lace/Strata: 03/28 Called patient on listed demographics, patient answered, this fiction writer introduced self and role. Patient states doing fine, confirmed filled medications and denies any issues, concerns or questions with ACI, medications or f/u. Has a f/u appointment with Dr roberson on 07/25/19 at 1030, Dr Kuhn CT scheduled 07/10/19 at 0715 and f/u Dr Kuhn 07/13/19 at 1000. Thanked patient for choosing care at [facility] and ended conversation. Mary Cornell, RNCM
== END 2019-07-04 12:33 | disposition home or self-care (01) | DRG 309 ==
LOC: ED 08:51 → PCU 09:42
PROVIDERS: Internal Medicine; Emergency Provider Emergency Medicine; Family Provider Family Medicine; PCP Family Medicine
DX: I48.91 Unspecified atrial fibrillation (principal); C78.00 Secondary malignant neoplasm of unspecified lung; C64.9 Malignant neoplasm of unspecified kidney, except renal pelvis; I10 Essential (primary) hypertension; Z96.641 Presence of right artificial hip joint; M1A.9XX0 Chronic gout, unspecified, without tophus (tophi); Z66 Do not resuscitate; E11.9 Type 2 diabetes mellitus without complications; Z90.5 Acquired absence of kidney; Z86.718 Personal history of other venous thrombosis and embolism; Z79.899 Other long term (current) drug therapy; Z86.711 Personal history of pulmonary embolism; Z79.84 Long term (current) use of oral hypoglycemic drugs
CPT/HCPCS: 36415; 71045; 80048; 82962; 84443; 84484; 85025; 93005; 93306; 99285; Q9957; A4216; C8929

== ENCOUNTER 2019-07-08 10:19 | Emergency (ER) | payer MEDICARE, SELFPAY ==
[2019-07-03 10:21] VITALS: BMI 42.7
[2019-07-08 10:20] VITALS: BP 126/88; PULSE 84; RESP 17; TEMP 36.1; O2SAT 97; BMI 42.7
--- NOTE | 2019-07-08 10:29 | RAD_ITS ---
STUDY: X-RAY CHEST REASON FOR EXAM: Male, 63 years old. Cough. TECHNIQUE: PA and lateral views of the chest. COMPARISON: 07/03/2019. FINDINGS: There again are slightly prominent markings unchanged since the prior examination. There again is faintly visualized nodular density in the right lung base. There is right lateral pleural reaction/thickening. There is no evidence of pleural effusions. Normal size heart. Normal mediastinum and yessi. Normal visualized pulmonary arteries. Normal visualized aortic arch and descending thoracic aorta. There are degenerative changes of the visualized thoracic spine. Normal visualized ribs, clavicles, and shoulders. There is no demonstrated abnormality of the visualized soft tissue structures of the upper abdomen. RAD/Chest PA and Lateral IMPRESSION: No significant change. No new infiltrate is seen. Electronically Signed: Bright Horne MD at 11:31 EST Tel , Service support ,
[2019-07-08 10:32] VITALS: O2SAT 98
[2019-07-08 11:05] LABS: Absolute Lymphocyte Count 0.91 X10^3/uL (0.83-4.51); Absolute Neutrophil Count 8.8 X10^3/uL (2.0-7.7); Basophil# 0.05 X10^3/uL; Basophil% 0.5 % (0-1); Eosinophil# 0.11 X10^3/uL; Hematocrit 38.9 % (40-54); Hemoglobin 12.6 g/dL (13.0-16.5); Lymphocyte # 0.91 X10^3/ul (4.0); Lymphocyte % 8.3 % (19-41); Mean Corp Hgb Conc 32.4 g/dL (32-36); Mean Corpuscular Hgb 28.5 pg (27.0-32.0); Mean Platelet Vol. 10.8 fl (6.2-12.0); Monocyte# 1.01 X10^3/uL; Monocyte% 9.2 % (0-10); NRBC Flagged by Analyzer 0 % (0-5); Neutrophil % 80.6 % (47-70); Platelet Count 185 K/mm3 (150-450); RBC Distribution Width CV 14.3 % (11.6-14.6); RBC Distribution Width SD 45.9 fl (35.1-43.9); Red Blood Count 4.42 M/mm3 (4.6-6.2); White Blood Count 10.9 K/mm3 (4.4-11.0)
[2019-07-08 11:30] LABS: Anion Gap 5 (5-15); BUN 33 mg/dL (7-18); BUN/Creat Ratio 17.3 RATIO (10-20); Calcium,Total 8.2 mg/dL (8.5-10.1); Chloride 106 mmol/L (98-107); Creatinine, Serum 1.91 mg/dL (0.70-1.30); EST Glomerular Filtration Rate 38 mL/min (>60); Est Glom Filt Rate - Afr Amer 46 mL/min (>60); Estimated Creatinine Clearance 41.61 ml/min; Glucose 245 mg/dL (74-106); Potassium 4.3 mmol/L (3.5-5.1); Sodium Level 134 mmol/L (136-145)
--- NOTE | 2019-07-08 12:06 | ED.DCSUM_ITS ---
History of Present Illness Chief Complaint: Cough Detail of Chief Complaint: Cough, URI Informant: Patient Onset: Days - 4 days Context: Gradual Onset Current Severity: Mild Maximum Severity: Moderate Narrative: Patient presents with upper respiratory symptoms and cough for the past 4 days. Patient was recently admitted for A. fib RVR and was discharged the day before his symptoms started. He has not noted fever. He feels like he has had some intermittent wheezing. He is blowing green sputum out of his nose but not really coughing up much sputum. He had subjective fever at home but it was not measured. Patient does have a history of renal cell carcinoma with lung mets. He is on chemotherapy, last chemotherapy treatment was on the fifth. - Past Medical History (1) Acid reflux Status: Chronic (2) Hx pulmonary embolism Status: Chronic (3) DVT (deep venous thrombosis) Status: Chronic (4) Gout Status: Chronic (5) History of right hip replacement Status: Chronic (6) Hx of tonsillectomy Status: Chronic (7) Hx of unilateral nephrectomy Status: Chronic Comment: Left (8) Hypertension Status: Chronic (9) Metastatic 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 Status: Chronic (10) Renal cell cancer Status: Chronic Past Medical History - Allergies and Home Meds Allergies/Adverse Reactions: Allergies Penicillins Allergy (Unknown, Verified 07/08/19 10:19) Unknown Primary Care Physician: [place] Olson DO [Primary Care Provider] - Doctors: Dr. Kuhn Surgical History: - Lives: Spouse/ Significant Other Smoking Status: Never smoker - Family History Maternal Family History: Family History (Last Updated 07/03/19 @ 16:50 by Natalio Lund DO) Mother Diabetes Heart disease Kidney disease Hypertension CVA (cerebral vascular accident) Father Heart disease Family History: Reports: Unknown Additional Family History: No family history of DVT or PE Review of Systems General: Reports: Fever, Subjective Eyes: Denies: Visual changes - bilaterally ENT: Reports: Rhinorrhea. Denies: Bilateral ear pain Cardiovascular: Denies: Chest pain Respiratory: Reports: Dyspnea, Cough Gastrointestinal: Denies: Vomiting, Diarrhea Genitourinary: Denies: Dysuria Musculoskeletal: Denies: Back pain, Extremity Pain Skin: Denies: Rash Neurological: Denies: Headache Allergy: Denies: Uticaria Physical Exam Vital Signs/Narrative: Vital Signs Temp Pulse Resp BP Pulse Ox 07/08/19 10:20 97.0 F L 84 17 126/88 H 97 Inital Vital Signs reviewed: Yes General: Well nourished, Well developed Head: Normocephalic Eyes: Perrl, EOMI ENT: TM's clear, Nasal congestion, - - Slight hoarseness to voice Cardiovascular: Regular rate, Regular rhythm Respiratory: No distress, CTA bilaterally Abdomen: Soft, Nontender Extremities: Nontender Skin: Normal color, No rash Neurological: Alert, Oriented x3 Psychological: Normal affect Diagnostic/Tx/Re-eval Impressions Chest X-Ray 07/08/19 10:29 IMPRESSION: No significant change. No new infiltrate is seen. Electronically Signed: Bright Horne MD at 11:31 EST Tel , Service support , 07/08/19 10:29 Chest PA and Lateral [RAD] Stat 07/08/19 10:33 Mucosa - Nose Influenza Types A,B Direct FA ([facility]ER) - Final - NEGATIVE Laboratory Results 07/08/19 07/08/19 10:45 10:45 WBC 10.9 RBC 4.42 L Hgb 12.6 L Hct 38.9 L MCV 88.0 MCH 28.5 MCHC 32.4 RDW Std Deviation 45.9 H RDW Coeff of Shanell 14.3 Plt Count 185 MPV 10.8 Immature Gran % (Auto) 0.400 Neut % (Auto) 80.6 H Lymph % (Auto) 8.3 L Alcorn % (Auto) 9.2 Eos % (Auto) 1.0 Baso % (Auto) 0.5 Absolute Neuts (auto) 8.8 H Absolute Lymphs (auto) 0.91 Nucleated RBC % 0 Sodium 134 L Potassium 4.3 Chloride 106 Carbon Dioxide 23.0 Anion Gap 5 BUN 33 H Creatinine 1.91 H Estim Creat Clear Calc 41.61 Est GFR (MDRD) Af Amer 46 L Est GFR (MDRD) Non-Af 38 L BUN/Creatinine Ratio 17.3 Glucose 245 H Calcium 8.2 L - EKG Initial EKG Interpretation: Sinus Rhythm - Sinus at 81 with no acute ischemia. - Medical Decision Making Due to the patient's recent hospital stay and the fact that he is on chemotherapy further work-up was undertaken. Blood work shows chronic changes. Chest x-ray shows no infiltrate. Influenza swab is negative. EKG confirms patient is still in sinus rhythm. Patient will be treated the course of doxycycline for bronchitis, first dose given here. ED Disposition - Plan for ED Patient: Disposition: Home or Assisted Living Diagnosis: Bronchitis Instructions: BRONCHITIS, Antiobiotic Treatment (Adult) Prescriptions: Doxycycline 100 mg PO BID #20 cap Transmission Status: Pending to [facility] Referrals: Houston Olson, [Primary Care Provider] - 1 Week if not improving
[2019-07-08 12:23] VITALS: BP 126/68; PULSE 78; RESP 16; O2SAT 96
--- NOTE | 2019-07-08 12:24 | ED.RN ---
IV DC'ED, CATHETER INTACT, SMALL GAUZE DRESSING PLACED. DISCHARGE INSTRUCTIONS GIVEN TO AND REVIEWED WITH PATIENT, PATIENT DENIES QUESTIONS OR CONCERNS AND VOICES UNDERSTANDING OF DISCHARGE INSTRUCTIONS. PT AMBULATES OUT OF ROOM WITHOUT DIFFICULTY.
== END 2019-07-08 12:24 | disposition home or self-care (01) ==
PROVIDERS: Emergency Provider Emergency Medicine; Family Provider Family Medicine; PCP Family Medicine
DX: J40 Bronchitis, not specified as acute or chronic (principal); C64.9 Malignant neoplasm of unspecified kidney, except renal pelvis; C78.00 Secondary malignant neoplasm of unspecified lung; I48.91 Unspecified atrial fibrillation; I10 Essential (primary) hypertension; M10.9 Gout, unspecified; K21.9 Gastro-esophageal reflux disease without esophagitis; Z79.01 Long term (current) use of anticoagulants; Z79.84 Long term (current) use of oral hypoglycemic drugs; Z79.899 Other long term (current) drug therapy; Z88.0 Allergy status to penicillin; Z86.711 Personal history of pulmonary embolism; Z86.718 Personal history of other venous thrombosis and embolism; Z96.641 Presence of right artificial hip joint; Z90.5 Acquired absence of kidney
CPT/HCPCS: 71046; 80048; 85025; 87804; 93005; 99284; A4216

== ENCOUNTER → 2019-07-13 13:07 | Outpatient (CLI) | payer MEDICARE, SELFPAY ==
[2019-06-29 08:48] VITALS: BMI 43.2
[2019-07-13 10:27] VITALS: BMI 43.9
--- NOTE | 2019-07-13 13:07 | CT_ITS ---
STUDY: CT chest abdomen and pelvis WITHOUT IV CONTRAST REASON FOR EXAM: Male, 63 years old. Renal cell carcinoma monitoring. RADIATION DOSAGE (If Supplied By Facility): DLP = ( 993.27 ) mGycm TECHNIQUE: Transaxial imaging was performed without the administration of intravenous contrast material. Coronal and sagittal reformatted images were created. By mouth contrast was administered. Individualized dose optimization techniques were used for this CT. COMPARISON: CT chest March 04, 2018. CT abdomen and pelvis December 16, 2017. FINDINGS: There are no pulmonary infiltrates or pleural effusions. Innumerable bilateral pulmonary nodules are again seen, overall, without significant change since the comparison evaluation. There is a new region of left upper lobe tree-in-bud nodularity/nodular infiltrate. There is no pneumothorax. The heart and pericardium are within normal limits. There is stable right hilar lymphadenopathy. There is no evidence of thoracic aortic aneurysm. The liver is normal in appearance. No calcified gallstones are present. The pancreas is within normal limits. The spleen is unremarkable in appearance. Multiple right renal cysts are present measuring up to 9.4 cm, not significant changed in appearance. The left kidney has been removed. There is no evidence of bowel obstruction or inflammation. There is no lymphadenopathy. There is no free fluid or free air present. No aggressive appearing osseous lesions are present. CT/Chest without Contrast IMPRESSION: Redemonstrated innumerable bilateral pulmonary nodules and right hilar lymphadenopathy, consistent with known metastatic disease. New left upper lobe region of tree-in-bud opacity/nodularity with differential including infection, inflammatory process, and neoplasm. Status post left nephrectomy. Multiple large right renal cysts, incompletely evaluated without IV contrast. Consider further evaluation with renal protocol CT evaluation. Electronically Signed: Rahul Evans, at 19:59 EST Tel , Service support ,
--- NOTE | 2019-07-13 13:29 | CT_ITS ---
STUDY: CT chest abdomen and pelvis WITHOUT IV CONTRAST REASON FOR EXAM: Male, 63 years old. Renal cell carcinoma monitoring. RADIATION DOSAGE (If Supplied By Facility): DLP = ( 993.27 ) mGycm TECHNIQUE: Transaxial imaging was performed without the administration of intravenous contrast material. Coronal and sagittal reformatted images were created. By mouth contrast was administered. Individualized dose optimization techniques were used for this CT. COMPARISON: CT chest March 04, 2018. CT abdomen and pelvis December 16, 2017. FINDINGS: There are no pulmonary infiltrates or pleural effusions. Innumerable bilateral pulmonary nodules are again seen, overall, without significant change since the comparison evaluation. There is a new region of left upper lobe tree-in-bud nodularity/nodular infiltrate. There is no pneumothorax. The heart and pericardium are within normal limits. There is stable right hilar lymphadenopathy. There is no evidence of thoracic aortic aneurysm. The liver is normal in appearance. No calcified gallstones are present. The pancreas is within normal limits. The spleen is unremarkable in appearance. Multiple right renal cysts are present measuring up to 9.4 cm, not significant changed in appearance. The left kidney has been removed. There is no evidence of bowel obstruction or inflammation. There is no lymphadenopathy. There is no free fluid or free air present. No aggressive appearing osseous lesions are present. CT/Abdomen/Pel W ORAL Cont Only IMPRESSION: Redemonstrated innumerable bilateral pulmonary nodules and right hilar lymphadenopathy, consistent with known metastatic disease. New left upper lobe region of tree-in-bud opacity/nodularity with differential including infection, inflammatory process, and neoplasm. Status post left nephrectomy. Multiple large right renal cysts, incompletely evaluated without IV contrast. Consider further evaluation with renal protocol CT evaluation. Electronically Signed: Rahul Evans, at 20:00 EST Tel , Service support ,
== END ==
PROVIDERS: Family Provider Family Medicine; PCP Family Medicine; Referring Provider Internal Medicine Medical Oncology; Visit Provider Internal Medicine Medical Oncology
DX: C64.9 Malignant neoplasm of unspecified kidney, except renal pelvis (principal); C78.00 Secondary malignant neoplasm of unspecified lung
CPT/HCPCS: 36415; 71250; 74176; 80053; 83615; 85025; A4216

== ENCOUNTER 2019-08-05 15:25 | Emergency (ER) | payer MEDICARE, SELFPAY ==
[2019-07-25 08:28] VITALS: BMI 43.6
[2019-08-05] VITALS (11 sets, daily range): BP systolic 116–139; BP diastolic 63–91; PULSE 66–135; RESP 16–26; TEMP 37.2; O2SAT 92–97; BMI 44.9
--- NOTE | 2019-08-05 15:35 | EKG12_ITS ---
Test Reason : RHY CHANGE Blood Pressure : / mmHG Vent. Rate : 067 BPM Atrial Rate : 067 BPM P-R Int : 148 ms QRS Dur : 092 ms QT Int : 400 ms P-R-T Axes : 018 005 005 degrees QTc Int : 422 ms Normal sinus rhythm Normal ECG Confirmed by GATITO BUSBY, FERN ([id number]), general expeditor DEMETRI SMITH ([id number]) on 08/07/2019 10:05:53 AM Referred By: Confirmed By:FERN MEDEROS MD
--- NOTE | 2019-08-05 15:51 | RAD_ITS ---
STUDY: X-RAY CHEST REASON FOR EXAM: Male, 63 years old. PALPITATIONS, HAS KIDNEY CANCER AND ON CHEMOTHERAPY -- HX OF KIDNEY CANCER IN 2010, NODULES ALSO FOUND IN LUNGS TECHNIQUE: Single AP portable upright view of the chest. COMPARISON: PA and lateral chest x-ray July 08, 2019. FINDINGS: Mild volume loss and crowding in the medial right base is unchanged. The left lung is mildly underexpanded compared to prior study, and there is minor crowding in the left base as well. No new consolidative draped. There is stable mild thickening of the lateral pleural stripe at the right mid chest. Normal size heart. Normal mediastinum and yessi. Normal visualized pulmonary arteries. Normal visualized aortic arch and descending thoracic aorta. There are stable multilevel degenerative changes of the visualized thoracic spine. 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 There is no demonstrated abnormality of the visualized soft tissue structures of the upper abdomen. RAD/Chest 1 View (Portable) IMPRESSION: Mildly diminished inspiratory effort, otherwise stable x-ray examination of the chest since July 08, 2019. Electronically Signed: Nick Birmingham MD at 16:24 EST , Service support ,
--- NOTE | 2019-08-05 16:04 | ED.VIS.GEN ---
History of Present Illness Chief Complaint: Palpitations Informant: Patient Onset: Today Timing: Continuous Narrative: Patient presents the emergency department with Milagro jean. Patient was admitted in June with Milagro jean had an echocardiogram. He is on Xarelto for prior PE/DVT. He takes metoprolol twice a day and believes he has been in a sinus rhythm since his last admission. He did follow-up with Dr. Loja from cardiology. He states his symptoms began today shortly after eating breakfast. He has had a cough. He also notes a skin rash around his neck that is red and irritating. He denies missing any doses of his Xarelto. Past Medical History - Allergies and Home Meds Allergies/Adverse Reactions: Allergies Penicillins Allergy (Unknown, Verified 08/05/19 15:29) Unknown Primary Care Physician: Patrice Loja MD [STAFF PHYSICIAN] - As soon as possible Surgical History: - Smoking Status: Never smoker - Family History Maternal Family History: Family History (Last Reviewed 07/25/19 @ 11:08 by Patrice Loja MD) Mother Diabetes Heart disease Kidney disease Hypertension CVA (cerebral vascular accident) Father Heart disease Family History: Reports: Unknown Additional Family History: No family history of DVT or PE Review of Systems General: Denies: Chills, Fever, Sweats Eyes: Denies: Visual changes - bilaterally, Diplopia ENT: Denies: Rhinorrhea, Sore throat Cardiovascular: Reports: Palpitations, Heart racing. Denies: Chest pain Respiratory: Reports: Cough. Denies: Dyspnea, Dyspnea on exertion Gastrointestinal: Denies: Abdominal pain, Nausea, Vomiting, Diarrhea, Melena, Hematochezia Genitourinary: Denies: Dysuria, Hematuria, Frequency Musculoskeletal: Denies: Back pain, Extremity Pain Skin: Denies: Rash, Wounds Neurological: Denies: Headache, Weakness, Numbness Physical Exam Vital Signs/Narrative: Vital Signs Temp Pulse Resp BP Pulse Ox 08/05/19 15:46 135 H 20 H 128/63 H 95 08/05/19 15:26 99.0 F 66 16 135/68 H 97 Inital Vital Signs reviewed: Yes General: Well nourished, Well developed, No Acute Distress Head: Normocephalic, Atraumatic Eyes: Perrl, EOMI ENT: Moist mucous membranes, No rhinorrhea Neck: Supple, Nontender Cardiovascular: No murmurs, Irregular, Tachycardia Respiratory: No distress, CTA bilaterally, Chest nontender Abdomen: Soft, Nontender, Nondistended, Normal bowel sounds Back: Nontender, Normal Inspection Extremities: Nontender, No edema Skin: Normal color, No rash Neurological: Alert, Oriented x3, Cranial nerves II-XII grossly intact, Normal Strength, Normal Sensation Psychological: Normal affect, Normal Mood Diagnostic/Tx/Re-eval - Rhythm Strip Rhythm Strip: A-fib Rate: 134 - Medical Decision Making Basic labs including magnesium TSH and troponin were negative. Patient received a total of 15 mg of IV metoprolol with no significant change in his heart rate. I spoke with Dr. Martin and we offered the patient electrical cardioversion and he initially declined. He was given a dose of Cardizem in for about an hour his heart rate was down into the 80-90 range. He did however not convert. Eventually his heart rate came back up and I presented the patient with 2 options and that was admission on Cardizem drip or trial of electrical cardioversion. He consented for electrical cardioversion. Patient received etomidate and fentanyl and a synchronized shock was delivered. ED Disposition - Plan for ED Patient: Disposition: Home or Assisted Living Diagnosis: Atrial fibrillation with rapid ventricular response, Candidiasis Instructions: Atrial Fibrillation Prescriptions: Nystatin Powder [Mycostatin Powder] 1 applic TOPICAL TID #1 bottle Prescription Printed Referrals: Patrice Loja MD [STAFF PHYSICIAN] - As soon as possible
[2019-08-05] MEDS: Metoprolol Tartrate 5 MG/5 ML Vial IV ×3 (16:09→16:27)
[2019-08-05 16:13] LABS: Absolute Lymphocyte Count 1.13 X10^3/uL (0.83-4.51); Absolute Neutrophil Count 5.2 X10^3/uL (2.0-7.7); Basophil# 0.05 X10^3/uL; Basophil% 0.7 % (0-1); Eosinophil# 0.23 X10^3/uL; Eosinophils% 3.1 % (0-5); Hematocrit 38.8 % (40-54); Hemoglobin 12.2 g/dL (13.0-16.5); Lymphocyte # 1.13 X10^3/ul (4.0); Lymphocyte % 15.5 % (19-41); Mean Corp Hgb Conc 31.4 g/dL (32-36); Mean Corpuscular Hgb 28.5 pg (27.0-32.0); Mean Corpuscular Volume 90.7 fL (80-94); Mean Platelet Vol. 10.2 fl (6.2-12.0); Monocyte# 0.65 X10^3/uL; Monocyte% 8.9 % (0-10); NRBC Flagged by Analyzer 0 % (0-5); Neutrophil # 5.21 X10^3/uL (2.7-7.7); Neutrophil % 71.3 % (47-70); Platelet Count 207 K/mm3 (150-450); RBC Distribution Width CV 14.5 % (11.6-14.6); RBC Distribution Width SD 47.4 fl (35.1-43.9); Red Blood Count 4.28 M/mm3 (4.6-6.2); White Blood Count 7.3 K/mm3 (4.4-11.0)
[2019-08-05 16:18] LABS: International Normalized Ratio 1.7; Prothrombin Time (Protime)PT. 19.6 SECONDS (11.7-14.9)
[2019-08-05 16:19] LABS: Partial Thromboplast Time 42.3 Seconds (24.1-36.2)
[2019-08-05 16:30] LABS: Anion Gap 8 (5-15); BUN 29 mg/dL (7-18); BUN/Creat Ratio 15.8 RATIO (10-20); Calcium,Total 8.6 mg/dL (8.5-10.1); Chloride 109 mmol/L (98-107); Creatinine, Serum 1.84 mg/dL (0.70-1.30); EST Glomerular Filtration Rate 40 mL/min (>60); Est Glom Filt Rate - Afr Amer 48 mL/min (>60); Glucose 254 mg/dL (74-106); Magnesium 1.9 mg/dL (1.6-2.6); Potassium 4.5 mmol/L (3.5-5.1); Sodium Level 141 mmol/L (136-145); Thyroid Stim Hormone (TSH) 2.21 uIU/mL (0.358-3.74)
[2019-08-05] MEDS: dilTIAZem 25 MG/5 ML Vial 10 MG IV BOLUS (16:58)
[2019-08-05] MEDS: fentaNYL 100 MCG/2 ML Ampul 50 MCG IV (19:23)
--- NOTE | 2019-08-05 19:59 | EKG12_ITS ---
Test Reason : PALPS Blood Pressure : / mmHG Vent. Rate : 134 BPM Atrial Rate : 131 BPM P-R Int : 000 ms QRS Dur : 086 ms QT Int : 272 ms P-R-T Axes : 000 015 009 degrees QTc Int : 406 ms Atrial fibrillation with rapid ventricular response with premature ventricular or aberrantly conducte d complexes Low voltage QRS (Limb Leads) Abnormal ECG Confirmed by GATITO BUSBY, FERN ([id number]), acquisition editor DEMETRI SMITH ([id number]) on 08/07/2019 10:04:35 AM Referred By: ABY Confirmed By:FERN MEDEROS MD
[2019-08-05] MEDS: Ondansetron ODT 4 MG Tablet PO (20:28)
== END 2019-08-05 20:29 | disposition home or self-care (01) ==
PROVIDERS: Emergency Provider Emergency Medicine; Family Provider Family Medicine; PCP Family Medicine
DX: I48.91 Unspecified atrial fibrillation (principal); B37.9 Candidiasis, unspecified; Z79.01 Long term (current) use of anticoagulants; Z79.899 Other long term (current) drug therapy; Z88.0 Allergy status to penicillin; Z86.711 Personal history of pulmonary embolism; Z86.718 Personal history of other venous thrombosis and embolism
CPT/HCPCS: 71045; 80048; 83735; 84443; 84484; 85025; 85610; 85730; 93005; 96374; 99152; 99284; J7030; A4216

== ENCOUNTER → 2019-08-21 12:16 | Outpatient (CLI) | payer MEDICARE, SELFPAY ==
[2019-07-20 08:36] VITALS: BMI 43.9
[2019-08-17 08:50] VITALS: BMI 44.7
--- NOTE | 2019-08-21 12:16 | MRI_ITS ---
STUDY: MRI ABDOMEN WITHOUT CONTRAST REASON FOR EXAM: Male, 63 years old. L NEPHRECTOMY, H/O KIDNEY CA -- assess treatment response, last chemo 4 weeks ago TECHNIQUE: Standardized fat and water weighted pulse sequences were obtained in all 3 orthogonal planes. Examination is limited due to lack of IV contrast. COMPARISON: Chest/abdomen/pelvis CT of 07/13/2019, MRI abdomen March 16, 2019 FINDINGS: Small bilateral pleural effusions have developed since most recent chest CT. There is atelectasis in the bilateral lung bases. The pulmonary nodules in the lung bases are not clearly identified on this exam (a few scattered nodules evident on prior MRI, however, lesser extent of the lungs imaged on current exam. Normal liver. There are multiple gallstones. Normal spleen. Normal pancreas. The left adrenal gland is not clearly identified. The right adrenal gland is grossly unremarkable although partially obscured due to respiratory motion artifact. There are multiple T2 bright, T1 dark cystic lesions of the kidneys with the largest such lesion measuring 7.4 x 9.2 cm, grossly similar since the prior study. Very fine septation along the posterior and lateral border identified, better seen (partially calcified) on recent CT. In addition, there are multiple solid-appearing (heterogeneous T2 but predominantly isointense with small focal areas of increased T2 signal intensity; isointense to hyperintense on T1). For instance, one of these lesions is best seen on image 11 of series 4 measuring 4.3 x 5.1 cm (measured 3.8 x 4.4 cm on prior MRI, and 3.9 x 4.[address]). Another lesion is seen posteriorly and medially measuring 4.7 x 5.2 cm (measured 4.7 x 4.9 cm on prior MRI, 4.9 x 4.[address] Smaller lesion inferior and posterior of the right kidney on image 34 of series 4 measures 2.9 x 2.5 cm (measured 2.4 x 3.2 cm on prior MRI, difficult to accurately measure on recent CT). Immediately posterior on image 33 of series 4, 1.9 x 2.0 cm lesion previously measured 1.9 x 2.0 cm on prior MRI. Lateral to the dominant simple cyst on image 37 of series 4, there is a small solid-appearing lesion measuring 2.2 x 2.3 cm (previously measured 1.7 x 1.9 cm on recent MRI and 1.6 x 2.[address]). Left kidney is surgically absent. There is susceptibility artifact of the left renal fossa but no obvious discrete mass (some loops of bowel extending into the left renal fossa). Visualized hollow viscus structures are unremarkable. There is a filling defect in the lower IVC at the confluence of the iliac veins (image 48 series 5, image 26 series 10), stable since the prior study and could represent flow turbulence rather than thrombus given stability since February. There is tortuosity of the abdominal aorta without evidence of aneurysm. Right hip replacement is noted. No bone marrow edema identified. MRI/Abdomen without Contrast IMPRESSION: 1. Since 03/16/2019, UNFAVORABLE change. Increased size of multiple (at least 5) solid masses of the right kidney with the largest single lesion measuring 4.7 x 5.2 cm (previously measured 4.7 x 4.9 cm on prior MRI). Some of the lesions have also increased in size since CT of 07/13/2019. 2. Multiple T2 bright cystic lesions are overall similar compatible with simple cysts. 3. New bilateral pleural effusions. The pulmonary nodules recently described on chest CT are not clearly identified on this exam. 4. Filling defect in the lower IVC at the confluence of the common iliac veins, stable since prior MRI. Likely represents flow artifact although chronic thrombus cannot be excluded (no IV contrast). 5. Left nephrectomy with susceptibility artifact in the left renal fossa but no obvious soft tissue mass. Electronically Signed: Roland Calero MD ([place]) at 9:06 EST , Service support ,
== END ==
PROVIDERS: Family Provider Family Medicine; PCP Family Medicine; Referring Provider Internal Medicine Medical Oncology; Visit Provider Internal Medicine Medical Oncology
DX: C64.2 Malignant neoplasm of left kidney, except renal pelvis (principal); N28.1 Cyst of kidney, acquired
CPT/HCPCS: 74181

== ENCOUNTER → 2019-08-24 05:40 | Outpatient (CLI) | payer MEDICARE, SELFPAY ==
[2019-08-17 08:50] VITALS: BMI 44.7
--- NOTE | 2019-08-24 06:06 | CT_ITS ---
STUDY: CT CHEST WITHOUT CONTRAST REASON FOR EXAM: Male, 63 years old. PNEUMONITIS, COUGH SINCE JUL 03, LT NEPHRECTOMY 2009, KIDNEY CA-LAST CHEMO 5 WKS AGO RADIATION DOSAGE (If Supplied By Facility): CTDIvol = ( 20.15 ) mGy, DLP = ( 730.04 ) mGycm TECHNIQUE: Transaxial imaging was performed without the administration of intravenous contrast material. Individualized dose optimization techniques were used for this CT. COMPARISON: CT chest from 07/13/2019 FINDINGS: The lungs again demonstrate innumerable pulmonary nodules that are stable in size largest approximately 1.2 cm in size. Interval resolution of tree-in-bud nodularity involving the left upper lobe posteriorly. There is no pneumothorax. There is scattered coronary artery calcifications. No pericardial effusion. Normal mediastinum. Normal hilar regions. Normal unenhanced pulmonary arteries. Normal aorta arch and descending thoracic aorta. Normal osseous structures. There is no demonstrated abnormality of the visualized upper abdomen. The patient is status post left nephrectomy. Multiple right renal cysts are again partially visualized. CT/Chest without Contrast IMPRESSION: Revisualization of innumerable bilateral pulmonary nodules which are stable in size. Interval resolution of left upper lobe tree in bud nodularity. No new pulmonary opacities visualized. Trace right pleural effusion. Electronically Signed: Ish Flores, at 7:12 EST Tel , Service support ,
== END ==
PROVIDERS: PCP Family Medicine; Referring Provider Internal Medicine Medical Oncology; Visit Provider Internal Medicine Medical Oncology
DX: J84.113 Idiopathic non-specific interstitial pneumonitis (principal); C64.9 Malignant neoplasm of unspecified kidney, except renal pelvis; R05 Cough; R06.02 Shortness of breath; Z45.2 Encounter for adjustment and management of vascular access device; R06.09 Other forms of dyspnea
CPT/HCPCS: 36415; 71250; 83615

== ENCOUNTER → 2019-10-02 06:22 | Outpatient (CLI) | payer MEDICARE, SELFPAY ==
[2019-09-21 08:51] VITALS: BMI 45.4
--- NOTE | 2019-10-02 06:23 | CT_ITS ---
STUDY: CT CHEST WITHOUT CONTRAST REASON FOR EXAM: Male, 63 years old. KIDNEY CANCER/LUNG METS, LEFT NEPHRECTOMY RADIATION DOSAGE (If Supplied By Facility): CTDIvol = ( 20.15 ) mGy, DLP = ( 765.31 ) mGycm TECHNIQUE: Transaxial imaging was performed without the administration of intravenous contrast material. Multiplanar coronal and sagittal images were reformatted. Individualized dose optimization techniques were used for this CT. COMPARISON: August 24, 2019 chest x-ray FINDINGS: The left thyroid gland is mildly inhomogeneous with a nodule measuring 8.1 mm. There are too numerous to count pulmonary nodules throughout the lungs. These range in size from 5 to 1.2 cm in the right upper lobe. Within the right lower lobe there is one measuring 1.3 x 1.4 cm. And the left lower lobe measuring up to 7.5 mm. Compared to the prior study August 24, 2019 the right lower lobe nodule described above measures 1.3 x 1.4 cm. Remainder of the nodules appear fairly similar in size and distribution. There is trace pleural thickening slightly less than prior study. There is mild cardiac enlargement. There are a few nonspecific subcentimeter lymph nodes. Normal hilar regions. Normal unenhanced pulmonary arteries. Normal aorta arch and descending thoracic aorta. There are multi-level degenerative changes of the thoracic spine. There is a abnormal inhomogeneous appearance of the partially visualized right kidney. There is a large cystic mass involving the right posterior kidney measuring at least 11.0 x 5.8 cm. There is a ill-defined appearing mass in the upper aspect of the right kidney measuring 5.0 cm. Operative change in the left upper quadrant compatible with post nephrectomy. CT/Chest without Contrast IMPRESSION: Numerous pulmonary nodules compatible with metastatic disease relatively unchanged since prior study. Large inhomogeneous right kidney compatible suspicious for neoplasm. Status post left nephrectomy. Stable left thyroid nodule. Electronically Signed: Christal Chandler MD at 14:19 EDT Tel , Service support ,
== END ==
PROVIDERS: PCP Family Medicine; Referring Provider Internal Medicine Medical Oncology; Visit Provider Internal Medicine Medical Oncology
DX: C64.1 Malignant neoplasm of right kidney, except renal pelvis (principal); C78.00 Secondary malignant neoplasm of unspecified lung
CPT/HCPCS: 71250

== ENCOUNTER 2019-11-13 02:48 | Emergency (ER) | payer MEDICARE, SELFPAY ==
[2019-10-19 10:34] VITALS: BMI 44.9
[2019-11-13 02:49] VITALS: BP 177/84; PULSE 72; RESP 17; TEMP 36.6; O2SAT 97; BMI 44.6
--- NOTE | 2019-11-13 02:56 | RAD_ITS ---
STUDY: X-RAY - RIGHT WRIST REASON FOR EXAM: Male, 63 years old. Wrist pain. No injury. TECHNIQUE: 3 view(s) of the wrist were obtained. COMPARISON: None. FINDINGS: No visible fracture. No osseous destruction. Alignment anatomic. Mild degenerative changes. Soft tissues unremarkable. RAD/Wrist min 3 Views IMPRESSION: No acute osseous abnormality. Electronically Signed: Pineda Marley, at 3:16 EDT Tel , Service support ,
--- NOTE | 2019-11-13 03:09 | ED.VISSUMM ---
- ER Visit Summary Date of Service: 11/13/19 Chief Complaint: Patient with 3-day history of atraumatic right wrist pain. Patient is right-hand dominant. History of Present Illness: The patient is a 63 M history of renal CA with mets. Also diabetic. Renal insufficiency. History of A. fib. Prior pulmonary emboli on Xarelto. Patient states that he has had right wrist pain it has been aching for about 3 days. Mild swelling. No fever. No chills. No redness. History of prior gout in his big toes. Never in his wrist. He denies any type of fall or trauma. He denies other complaints. Physical Examination: Well-appearing older male vital signs are stable and afebrile. H EENT exam unremarkable. Lungs clear to auscultation. Heart regular rhythm. Abdomen obese but soft nontender normal bowel sounds no peritoneal signs. Extremities moves all 4. Neurovascular intact. Right wrist tender. Mildly swollen. No redness. No cellulitis. No lymphangitic streaking. No axillary lymphadenopathy. No signs of deformity. Decreased range of motion to his wrist secondary to pain. Right hand neurovascular intact with normal cap refill. And radial pulse. Normal touch sensation. Neurologically is awake and alert. Test Results: X-ray right wrist 3 views read by myself and radiologist shows no acute abnormality. Emergency Department Course and Treatment: History and exam are consistent with right wrist pain secondary to gout. He has had no trauma. It does not look septic. Patient be treated with IV morphine and Zofran for pain. Also IV Solu-Medrol for the gout. Hebert exam patient is doing well at 3:30 AM. Treatment Plan: This will be treated as gout flare. Prednisone 40 mg a day for a week. He and I discussed different pain medications he wants to be treated with tramadol. Follow-up with his doctor. Return if fever. Disposition: Discharge Impression: Atraumatic right wrist pain secondary to acute gouty flare History of renal CA with metastases History of gout History of diabetes This note was generated with [employer] dictation software. It may contain incorrect words, spelling, and punctuation that were not noted in review of the chart prior to signing ED Disposition - Plan for ED Patient: Referrals: Houston Olson DO [Primary Care Provider] -
[2019-11-13] MEDS: Ondansetron 4 MG/2 ML Vial IV (03:16)
[2019-11-13] MEDS: morphine 8 MG/ML Syringe IV (03:16)
[2019-11-13] MEDS: MethylPREDNISolone 125 MG/2 ML Vial IV (03:16)
--- NOTE | 2019-11-13 03:32 | ED.DEP ---
ED Disposition - Plan for ED Patient: Disposition: Home or Assisted Living Instructions: ED ARTHRITIS Gout Prescriptions: predniSONE tablet 40 mg PO DAILY 10 Days #20 tab Prescription Printed traMADol [Ultram] 50 mg PO Q4H PRN PRN 3 Days #20 tab PRN Reason: Pain Prescription Printed Referrals: Houston Olson DO [Primary Care Provider] - 3-5 Days if not improving Additional Instructions: Prednisone 40 mg a day for the next 10 days or until your wrist is better. Tramadol for pain. Follow-up with your doctor if not improving return if worse or developing a fever.
[2019-11-13 03:40] VITALS: BP 173/67; PULSE 92; RESP 15; O2SAT 97
== END 2019-11-13 03:49 | disposition home or self-care (01) ==
LOC: ED 03:45
PROVIDERS: Emergency Provider Emergency Medicine; PCP Family Medicine
DX: M10.9 Gout, unspecified (principal); M25.531 Pain in right wrist; E11.9 Type 2 diabetes mellitus without complications; N28.9 Disorder of kidney and ureter, unspecified; I48.91 Unspecified atrial fibrillation; Z79.01 Long term (current) use of anticoagulants; Z85.528 Personal history of other malignant neoplasm of kidney; Z86.711 Personal history of pulmonary embolism
CPT/HCPCS: 73110; 96374; 96375; 99285; A4216; J2405

== ENCOUNTER → 2020-02-05 12:43 | Outpatient (CLI) | payer MEDICARE, SELFPAY ==
[2020-01-18 09:35] VITALS: BMI 41.8
--- NOTE | 2020-02-05 12:44 | CT_ITS ---
STUDY: CT ABDOMEN WITHOUT CONTRAST REASON FOR EXAM: Male, 64 years old. RENAL CA RADIATION DOSAGE (If Supplied By Facility): CTDIvol = ( 34.04 ) mGy, DLP = ( 1972.28 ) mGycm TECHNIQUE: Transaxial images were obtained without intravenous contrast, and oral contrast. Sagittal and coronal images were reconstructed. Individualized dose optimization techniques were used for this CT. COMPARISON: Comparison is made with prior examination dated July 13, 2019. FINDINGS: Since prior study, the bibasilar pulmonary nodules are much decreased in size as well as number. The visualized portions of the heart are within normal limits. Normal liver. Normal gallbladder and extrahepatic biliary system. Normal spleen. Normal pancreas. Normal bilateral adrenal glands. Stable appearance of the large complex solid and cystic mass involving the right kidney. The patient is status post left nephrectomy. Multiple cysts are seen in the right kidney as well. Normal visualized stomach. Normal small intestine. Normal colon. The appendix is visualized and appears normal. Normal abdominal aorta. Normal inferior vena cava. Normal retroperitoneum. Normal abdominal wall. There are diffuse degenerative changes of the visualized lumbar spine. CT/Abdomen without IV Contrast IMPRESSION: Since prior study, there has been much improvement in the bibasilar pulmonary nodules. Stable complex solid and cystic mass in the right kidney with stable multiple cysts in the right kidney. The patient is status post left nephrectomy. Electronically Signed: Horacio Thacker, at 14:38 EDT , Service support ,
--- NOTE | 2020-02-05 12:44 | CT_ITS ---
STUDY: CT CHEST WITHOUT CONTRAST REASON FOR EXAM: Male, 64 years old. RENAL CA, MONITOR RESPONSE TO TREATMENT RADIATION DOSAGE (If Supplied By Facility): CTDIvol = ( 34.04 ) mGy, DLP = ( 1972.28 ) mGycm TECHNIQUE: Transaxial imaging was performed without the administration of intravenous contrast material. Multiplanar coronal and sagittal images were reformatted. Individualized dose optimization techniques were used for this CT. COMPARISON: Comparison is made with prior study dated October 02, 2019. FINDINGS: Since prior study, there has been a marked reduction in the size and numbers of bilateral pulmonary nodules. No new nodule is seen. There is no demonstrated pleural abnormality. There are calcifications of the coronary arteries. There are multiple small lymph nodes within the mediastinum, which are normal in size and morphology most compatible with reactive lymph hyperplasia. Normal hilar regions. Normal unenhanced pulmonary arteries. There is atherosclerotic calcification of the aortic arch with tortuosity and elongation of the aortic arch and descending thoracic aorta. There are multi-level degenerative changes of the thoracic spine. Stable appearance of the complex solid/cystic mass right kidney. Surgical clips are once again seen in the left side secondary to prior left nephrectomy. CT/Chest without Contrast IMPRESSION: Interval decrease in size and number of the multiple bilateral pulmonary nodules. Stable complex solid/cystic mass in the right kidney. Electronically Signed: Horacio Thacker, at 14:26 EDT , Service support ,
== END ==
PROVIDERS: PCP Family Medicine; Referring Provider Internal Medicine Medical Oncology; Visit Provider Internal Medicine Medical Oncology
DX: C64.9 Malignant neoplasm of unspecified kidney, except renal pelvis (principal); C78.00 Secondary malignant neoplasm of unspecified lung
CPT/HCPCS: 71250; 74150

== ENCOUNTER → 2020-06-10 06:39 | Outpatient (CLI) | payer MEDICARE, SELFPAY ==
[2020-05-23 08:57] VITALS: BMI 41.9
[2020-06-05 11:21] VITALS: BMI 41.3
--- NOTE | 2020-06-10 06:41 | CT_ITS ---
STUDY: CT CHEST WITH CONTRAST REASON FOR EXAM: Male, 64 years old. ASSESS TREATMENT RESPONSE FOR KIDNEY CA RADIATION DOSAGE (If Supplied By Facility): CTDIvol = ( 23.15 ) mGy, DLP = ( 2402.10 ) mGycm TECHNIQUE: Transaxial imaging was performed following intravenous administration of IV 75mL Isovue-300. Multiplanar coronal and sagittal images were reformatted. Individualized dose optimization techniques were used for this CT. COMPARISON: 02/05/2020, 10/02/2019 FINDINGS: Redemonstration of multiple pulmonary nodules without new or enlarging pulmonary nodule demonstrated. For instance, 5 mm noncalcified nodule in the medial right middle lobe on image 51 of series 6 is stable. No pleural effusion or pleural-based mass. Normal heart and pericardium. There are calcifications of the coronary arteries. Similar nonspecific small, subcentimeter mediastinal lymph nodes without dominant shaun mass. Normal hilar regions. Normal enhanced pulmonary arteries. Normal aorta arch and descending thoracic aorta. No lytic or sclerotic bone lesions demonstrated. Upper abdomen described on abdomen CT report. CT/Chest WITH Contrast IMPRESSION: 1. Stable pulmonary nodules. No new or enlarging pulmonary nodule. Electronically Signed: Roland Calero MD ([place]) at 8:12 EST , Service support ,
--- NOTE | 2020-06-10 06:41 | CT_ITS ---
STUDY: CT ABDOMEN WITH CONTRAST REASON FOR EXAM: Male, 64 years old. ASSESS TREATMENT RESPONSE--KIDNEY CANCER -- LEFT NEPHRECTOMY RADIATION DOSAGE (If Supplied By Facility): CTDIvol = ( 23.15 ) mGy, DLP = ( 2402.10 ) mGycm TECHNIQUE: Transaxial images were obtained post I.V. administration of IV 75mL Isovue-300, and without oral contrast. Sagittal and coronal images were reconstructed. Individualized dose optimization techniques were used for this CT. COMPARISON: Comparison is made with prior study dated 02/05/2020. FINDINGS: The visualized lung bases are unremarkable. The visualized portions of the heart are within normal limits. Normal liver. Normal gallbladder and extrahepatic biliary system. Normal spleen. Normal pancreas. Normal bilateral adrenal glands. Once again, multiple cysts are seen throughout the right kidney. Mild degree of rim calcifications seen along a dominant cyst in the lower pole of the right kidney. This is unchanged. The right kidney is enlarged. The previously seen solid lesions in the medial inferior aspect of the left kidney have become cystic at this time. The patient is status post left nephrectomy. Normal visualized stomach. Normal small intestine. Normal colon. The appendix is visualized and appears normal. There is scattered atherosclerotic calcification of the abdominal aorta, without a demonstrated aneurysm. Normal inferior vena cava. Normal retroperitoneum. There is evidence of increased markings in the root of the mesentery. This is a nonspecific finding. Normal abdominal wall. There are mild degenerative changes of the visualized lumbar spine. The patient is status post right hip replacement. CT/Abdomen WITH IV Contrast IMPRESSION: Persistent multiple cystic lesions in the right kidney. The previously seen solid appearing masses have become cystic at this time. Increased markings in the fat of the root of the mesentery. This is a nonspecific finding. Electronically Signed: Horacio Thacker, at 10:28 EST , Service support ,
== END ==
PROVIDERS: PCP Family Medicine; Referring Provider Internal Medicine Medical Oncology; Visit Provider Internal Medicine Medical Oncology
DX: C64.2 Malignant neoplasm of left kidney, except renal pelvis (principal); C78.00 Secondary malignant neoplasm of unspecified lung
CPT/HCPCS: 71260; 74160; Q9967

== ENCOUNTER → 2020-07-12 | Outpatient (CLI) | payer MEDICARE, SELFPAY ==
[2020-05-02 09:16] VITALS: BMI 41.3
[2020-07-04 10:08] VITALS: BMI 41.5
== END | disposition home or self-care (01) ==
LOC: LABSPEC 17:39
PROVIDERS: PCP Family Medicine; Referring Provider Family Medicine; Visit Provider Family Medicine
DX: Z20.828 Contact with and (suspected) exposure to other viral communicable diseases (principal)
CPT/HCPCS: 87635; C9803; U0003

== ENCOUNTER → 2020-12-17 14:33 | Outpatient (CLI) | payer MEDICARE, SELFPAY ==
[2020-11-28 12:58] VITALS: BMI 41.8
[2020-12-17 13:32] VITALS: BMI 41.8
--- NOTE | 2020-12-17 14:34 | CT_ITS ---
STUDY: CT CHEST, ABDOMEN T PELVIS WITH CONTRAST REASON FOR EXAM: Male, 64 years old. Assess response to treatment. Renal carcinoma. Prior left nephrectomy. RADIATION DOSAGE (If Supplied By Facility): CTDIvol = ( 27.11 ) mGy, DLP = ( 2568.80 ) mGycm TECHNIQUE: Transaxial imaging was performed following intravenous administration of IV 100mL [id number]-300. Individualized dose optimization techniques were used for this CT. COMPARISON: Comparison is made with prior CT scan of the chest dated 06/10/2020. FINDINGS: CHEST Stable 5 mm noncalcified nodule in the medial aspect of the right middle lobe as seen on axial image #58. Stable 5 mm nodule in the anterior lateral aspect of the right middle lobe as seen on axial image #60. Stable 5 mm pleural-based nodule in the lateral aspect of the right middle lobe posteriorly adjacent to the right major fissure. There is no demonstrated pleural abnormality. There are calcifications of the coronary arteries. There are multiple small lymph nodes within the mediastinum, which are normal in size and morphology most compatible with reactive lymph hyperplasia. Normal hilar regions. Normal unenhanced pulmonary arteries. Normal aorta arch and descending thoracic aorta. There are multi-level degenerative changes of the thoracic spine. There is no demonstrated abnormality of the visualized upper abdomen. ABDOMEN The visualized lung bases are unremarkable. The visualized portions of the heart are within normal limits. Normal liver. Normal gallbladder and extrahepatic biliary system. Normal spleen. Normal pancreas. Normal bilateral adrenal glands. Once again, there is evidence of multiple right renal cysts. Mild degree of rim calcification is seen along a dominant cyst in the lower pole of the right kidney. This is unchanged. There is compensatory hypertrophy of the right kidney. The patient is status post left nephrectomy. Normal visualized stomach. Normal small intestine. There are scattered colonic diverticula consistent with diverticulosis. The appendix is visualized and appears normal. There is scattered atherosclerotic calcification of the abdominal aorta, without a demonstrated aneurysm. Normal inferior vena cava. Normal retroperitoneum. Normal abdominal wall. There are diffuse degenerative changes of the visualized lumbar spine. PELVIS Normal urinary bladder. There is no pelvic fluid. There is no pelvic lymphadenopathy or mass lesion. Normal visualized pelvic arteries. Normal abdominal wall. There are diffuse degenerative changes of the visualized lumbar spine. CT/CT Chest, Abd, Pel w/Contrast IMPRESSION: Stable examination. Electronically Signed: Horacio Thacker MD at 15:28 EDT , Service support ,
== END ==
PROVIDERS: PCP Family Medicine; Referring Provider Internal Medicine Medical Oncology; Visit Provider Internal Medicine Medical Oncology
DX: C64.1 Malignant neoplasm of right kidney, except renal pelvis (principal); C78.00 Secondary malignant neoplasm of unspecified lung; E03.9 Hypothyroidism, unspecified
CPT/HCPCS: 71260; 74177; 96360; 96361; J7040; Q9967; A4216

== ENCOUNTER → 2021-04-07 12:35 | Outpatient (CLI) | payer MEDICARE, SELFPAY ==
--- NOTE | 2021-04-07 12:38 | CT_ITS ---
STUDY: CT CHEST, ABDOMEN T PELVIS WITHOUT CONTRAST REASON FOR EXAM: Male, 65 years old. ASSESS TREATMENT RESPONSE. The patient has a history of prior left nephrectomy for renal cell carcinoma. RADIATION DOSAGE (If Supplied By Facility): CTDIvol = ( 26.21 ) mGy, DLP = ( 2334.91 ) mGycm TECHNIQUE: Transaxial imaging was performed without the administration of intravenous contrast material. Individualized dose optimization techniques were used for this CT. COMPARISON: Comparison is made with prior study dated 12/17/2020. FINDINGS: CHEST Stable small benign-appearing bilateral axillary nodes. Stable 5 mm noncalcified nodule in the medial aspect of the right middle lobe. Stable 5 mm nodule in the anterior lateral aspect of the right middle lobe. Stable 5 mm pleural-based nodule in the lateral aspect of the right middle lobe abutting the major fissure. There is no demonstrated pleural abnormality. There are calcifications of the coronary arteries. There are multiple small lymph nodes within the mediastinum, which are normal in size and morphology most compatible with reactive lymph hyperplasia. Normal hilar regions. Normal unenhanced pulmonary arteries. Normal aorta arch and descending thoracic aorta. There are multi-level degenerative changes of the thoracic spine. ABDOMEN Normal liver. Normal gallbladder and extrahepatic biliary system. Normal spleen. Normal pancreas. Normal bilateral adrenal glands. Once again, multiple right renal cysts are seen. When scanned is evidence of a fine rim calcification along a dominant cyst in the lower pole of the right kidney. The patient is status post left nephrectomy. Normal visualized stomach. Normal small intestine. There are multiple colonic diverticula consistent with diverticulosis. The appendix is visualized and appears normal. Normal abdominal aorta. Normal inferior vena cava. Normal retroperitoneum. Normal abdominal wall. There are diffuse degenerative changes of the visualized lumbar spine. The patient is status post right total hip replacement. PELVIS Normal urinary bladder. Normal visualized small intestine. Normal visualized colon. There is no pelvic fluid. There is no pelvic lymphadenopathy or mass lesion. Normal visualized pelvic arteries. Normal abdominal wall. There are diffuse degenerative changes of the visualized lumbar spine. CT/CT Chest, Abd, Pelvis WO Cont IMPRESSION: Stable examination. Electronically Signed: Horacio Thacker MD at 15:00 EDT , Service support ,
== END ==
PROVIDERS: PCP Family Medicine; Referring Provider Internal Medicine Medical Oncology; Visit Provider Internal Medicine Medical Oncology
DX: C64.9 Malignant neoplasm of unspecified kidney, except renal pelvis (principal); C78.00 Secondary malignant neoplasm of unspecified lung
CPT/HCPCS: 71250; 74176

== ENCOUNTER → 2021-06-27 11:41 | Outpatient (CLI) | payer MEDICARE, SELFPAY ==
[2021-06-27 12:38] LABS: Anion Gap 11 (5-15); BUN 79 mg/dL (7-18); BUN/Creat Ratio 26.2 RATIO (10-20); Calcium,Total 8.4 mg/dL (8.5-10.1); Chloride 96 mmol/L (98-107); Creatinine, Serum 3.02 mg/dL (0.70-1.30); EST Glomerular Filtration Rate 22 mL/min (>60); Est Glom Filt Rate - Afr Amer 27 mL/min (>60); Glucose 573 mg/dL (74-106); Sodium Level 132 mmol/L (136-145)
[2021-06-27 13:30] LABS: 24HR. UA Prot. Total Volume 2900 mL
== END ==
PROVIDERS: Internal Medicine Medical Oncology; PCP Family Medicine; Referring Provider Internal Medicine Cardiovascular Disease; Visit Provider Internal Medicine Cardiovascular Disease
DX: I48.0 Paroxysmal atrial fibrillation (principal); C64.9 Malignant neoplasm of unspecified kidney, except renal pelvis; C78.00 Secondary malignant neoplasm of unspecified lung; E03.8 Other specified hypothyroidism; N28.9 Disorder of kidney and ureter, unspecified; R80.9 Proteinuria, unspecified; K21.9 Gastro-esophageal reflux disease without esophagitis
CPT/HCPCS: 36415; 80048; 81050; 82570; 84156

== ENCOUNTER → 2021-07-08 | Outpatient (CLI) | payer MEDICARE, SELFPAY | END | disposition home or self-care (01) | LOC: LABSPEC 11:41 | PROVIDERS: PCP Family Medicine; Visit Provider Physician Assistant Surgical | DX: U07.1 COVID-19 (principal) | CPT/HCPCS: 87635; U0005; U0003 ==

== ENCOUNTER 2021-07-12 12:56 | Outpatient (CLI) | payer MEDICARE, SELFPAY ==
[2021-07-12 13:12] VITALS: BP 168/93; PULSE 85; RESP 16; TEMP 37.5; O2SAT 94; BMI 40.6
[2021-07-12] MEDS: 0.9% Saline Lock 10 ML Syringe IV (13:13)
[2021-07-12 13:54] VITALS: BP 150/71; PULSE 77; RESP 18; TEMP 37.3; O2SAT 94
[2021-07-12 14:54] VITALS: BP 150/79; PULSE 79; RESP 18; TEMP 37.5; O2SAT 92
== END 2021-07-12 15:16 | disposition home or self-care (01) ==
LOC: MS3OUT 12:56 → MS3 12:57
PROVIDERS: PCP Family Medicine; Referring Provider Nurse Practitioner Acute Care; Visit Provider Nurse Practitioner Acute Care
DX: Z23 Encounter for immunization (principal); U07.1 COVID-19
CPT/HCPCS: J7050; M0245; Q0245; A4216

== ENCOUNTER 2021-08-26 10:44 | Outpatient (CLI) | payer MEDICARE, SELFPAY ==
[2021-08-26 12:40] LABS: Protein, Urine (Random) 469.4 mg/dL (<11.9); Protein:Creat Ratio 8352 mg/g CRE (0-200)
== END 2021-08-26 23:59 | disposition short-term general hospital (02) ==
LOC: POLAB3 10:45 → LABSPEC 10:46
PROVIDERS: PCP Family Medicine; Visit Provider Internal Medicine Nephrology
DX: N18.4 Chronic kidney disease, stage 4 (severe) (principal)
CPT/HCPCS: 82570; 84156

== ENCOUNTER 2021-10-02 17:34 | Outpatient (CLI) | payer MEDICARE, SELFPAY ==
--- NOTE | 2021-10-02 17:36 | CT_ITS ---
STUDY: CT CHEST, ABDOMEN T PELVIS WITHOUT CONTRAST REASON FOR EXAM: Male, 65 years old. EVALUATE METASTATIC RENAL CANCER RADIATION DOSAGE (If Supplied By Facility): CTDIvol = ( 27.01 ) mGy, DLP = ( 2317.82 ) mGycm TECHNIQUE: Transaxial imaging was performed without the administration of intravenous contrast material. Individualized dose optimization techniques were used for this CT. COMPARISON: 04/07/2021 FINDINGS: CHEST No change in the 5 mm noncalcified nodule in the medial right lobe of the lungs. Also no change in a 5 mm noncalcified nodule anterior right lower lobe adjacent to the major fissure. No new noncalcified nodule or mass. There is no demonstrated pleural abnormality. There is a small pericardial effusion. There are calcifications of the coronary arteries. Normal mediastinum. Normal hilar regions. Normal unenhanced pulmonary arteries. Normal aorta arch and descending thoracic aorta. Normal osseous structures. There is no demonstrated abnormality of the visualized upper abdomen. ABDOMEN The visualized lung bases are unremarkable. The visualized portions of the heart are within normal limits. Normal liver. Normal gallbladder and extrahepatic biliary system. Normal spleen. Normal pancreas. Normal bilateral adrenal glands. Innumerable cysts in the right kidney. Status post left nephrectomy. Normal visualized stomach. Normal small intestine. Normal colon. There is non-visualization of the appendix. Normal abdominal aorta. Normal inferior vena cava. Normal retroperitoneum. Normal abdominal wall. Normal osseous structures. PELVIS Normal urinary bladder. Normal visualized small intestine. Normal visualized colon. There is no pelvic fluid. There is no pelvic lymphadenopathy or mass lesion. Normal visualized pelvic arteries. Normal abdominal wall. Right hip arthroplasty which produces streak artifact and obscures the pelvis. CT/CT Chest, Abd, Pelvis WO Cont IMPRESSION: No CT evidence of residual, recurrent, metastatic renal cell carcinoma. Electronically Signed: Fred Foley MD at 18:17 EST ,
== END 2021-10-02 23:59 | disposition home or self-care (01) ==
LOC: CT 17:35
PROVIDERS: PCP Family Medicine; Referring Provider Internal Medicine Medical Oncology; Visit Provider Internal Medicine Medical Oncology
DX: C64.9 Malignant neoplasm of unspecified kidney, except renal pelvis (principal); C79.9 Secondary malignant neoplasm of unspecified site
CPT/HCPCS: 71250; 74176

== ENCOUNTER 2021-11-05 10:24 | Outpatient (CLI) | payer MEDICARE, SELFPAY ==
[2021-11-05 11:15] LABS: Albumin, Serum 2.6 g/dL (3.2-5.0); BUN 58 mg/dL (7-18); BUN/Creat Ratio 17.1 RATIO (10-20); Calcium,Total 8.6 mg/dL (8.5-10.1); Chloride 108 mmol/L (98-107); Creatinine, Serum 3.39 mg/dL (0.70-1.30); EST Glomerular Filtration Rate 19 mL/min (>60); Est Glom Filt Rate - Afr Amer 23 mL/min (>60); Glucose 168 mg/dL (74-106); Potassium 3.9 mmol/L (3.5-5.1); Sodium Level 139 mmol/L (136-145)
[2021-11-05 11:19] LABS: Protein, Urine (Random) 339.4 mg/dL (<11.9); Protein:Creat Ratio 4280 mg/g CRE (0-200)
== END 2021-11-05 23:59 | disposition home or self-care (01) ==
LOC: PAVLAB 10:25
PROVIDERS: PCP Family Medicine; Referring Provider Internal Medicine Nephrology; Visit Provider Internal Medicine Nephrology
DX: E11.22 Type 2 diabetes mellitus with diabetic chronic kidney disease (principal); E11.21 Type 2 diabetes mellitus with diabetic nephropathy; N18.4 Chronic kidney disease, stage 4 (severe)
CPT/HCPCS: 36415; 80069; 82570; 84156

== ENCOUNTER → 2021-12-03 | Outpatient (CLI) | payer MEDICARE, SELFPAY ==
--- NOTE | 2021-12-03 14:48 | ECHOCS_ITS ---
Reason For Study: Afib/Flutter Procedure This was a 2D Doppler, Color Flow transthoracic echocardiogram. The study was technically difficult. Contrast injection was performed. Exam performed in department. Left Ventricle Normal LV size. Left ventricular systolic function is normal. The estimated ejection fraction is 55 %. No regional wall motion abnormalities noted. Right Ventricle Normal RV size. Normal systolic function. Atria Normal left atrium. Normal right atrium. Mitral Valve Normal mitral valve. Tricuspid Valve Normal tricuspid valve. Aortic Valve Trisinus/trileaflet aortic valve. Pulmonic Valve The pulmonic valve is not well visualized. Great Vessels Normal aortic root. The pulmonary artery is normal size. Normal inferior vena cava. Pericardium/Pleural No pericardial effusion. Medication 22 gauge I.V. with prn adaptor inserted into right arm. Diluted definity 2ml given slow IV push to enhance endocardial definition. MMode/2D Measurements & Calculations LVIDd: 6.2 cm IVSd: 1.5 cm LA dimension: 5.9 cm LVIDs: 4.7 cm LVPWd: 1.3 cm FS: 24.6 % LAV(MOD-bp): 160.8 ml LA A4 area: 40.6 cm2 RA A4 area: 27.0 cm2 LAV(MOD-bp) Indexed: 63.4 ml/m2 LAV(MOD-sp2): 131.5 ml LAV(MOD-sp4): 169.0 ml Doppler Measurements & Calculations MV E max jazzmine: 128.1 cm/sec Ao V2 max: 153.0 cm/sec LV V1 max: 87.1 cm/sec Ao max P.4 mmHg LV V1 max P.0 mmHg PA V2 max: 103.8 cm/sec ECHO/Echo Complete W/ Contrast Interpretation Summary Normal LV size. Left ventricular systolic function is normal. The estimated ejection fraction is 55 %. Contrast injection was performed. The study was technically limited. The study was technically difficult. Ordering Physician: Patrice Loja Referring Physician: Houston Olson Performed By: Marciano Singer RCS
== END | disposition home or self-care (01) ==
LOC: CVS 14:47
PROVIDERS: PCP Family Medicine; Referring Provider Internal Medicine Cardiovascular Disease; Visit Provider Internal Medicine Cardiovascular Disease
DX: I34.0 Nonrheumatic mitral (valve) insufficiency (principal)
CPT/HCPCS: 93306; Q9957; A4216; C8929

== ENCOUNTER → 2021-12-15 | Outpatient (CLI) | payer MEDICARE, SELFPAY ==
--- NOTE | 2021-12-15 09:30 | CDU_ITS ---
Reason For Study: Syncope Rt. Velocities/BP Lt. Velocities/BP Prox CCA 74.7/12.1 cm/sec. Prox CCA 94.3/13.4 cm/sec. Mid CCA 65.6/8.2 cm/sec. Mid CCA 70.8/13.4 cm/sec. Dist CCA 65.6/9.5 cm/sec. Dist CCA 64.3/9.5 cm/sec. Prox ICA 99.5/26.5 cm/sec. Prox ICA 74.7/23.9 cm/sec. Mid ICA 72.1/20 cm/sec. Mid ICA 79.9/23.9 cm/sec. Dist ICA 72.1/21.3 cm/sec. Dist ICA 81.2/16 cm/sec. Rt. ICA/CCA = 1.52. Lt. ICA/CCA = 1.15. Prox ECA 79.9 cm/sec. Prox ECA 91.7 cm/sec. Rt. Vert. 70.8/20 cm/sec. Lt. Vert. 49.9/13.4 cm/sec. Right Extracranial There is intimal thickening but no significant atherosclerotic plaque noted in the right common carotid artery. There is heterogeneous, irregular atherosclerotic plaque noted in the right internal carotid artery. There is no significant atherosclerotic plaque noted in the right external carotid artery. Antegrade flow is noted in the right vertebral artery. Left Extracranial There is intimal thickening but no significant atherosclerotic plaque noted in the left common carotid artery. There is heterogeneous, irregular atherosclerotic plaque noted in the left internal carotid artery. There is intimal thickening but no significant atherosclerotic plaque noted in the left external carotid artery. Antegrade flow is noted in the left vertebral artery. Procedure Carotid Duplex 23557. This is a Carotid Duplex examination using B-mode, color flow and specral Doppler. Exam performed in department. VL/Carotid Duplex Ultrasound Interpretation Summary Minimal plaque at the proximal right internal carotid artery with less than 50% stenosis Less than 50% stenosis right external carotid artery Mild irregular plaque at the proximal left internal carotid artery with less th an 50% stenosis Less than 50% stenosis left external carotid artery Patent and antegrade vertebral arteries bilaterally Ordering Physician: Isabel Ball Referring Physician: Houston Olson Performed By: Lee Ann Sommer RVT
--- NOTE | 2021-12-15 09:31 | VDUE_ITS ---
Reason For Study: CKD stage 4 Right Arm Left Arm Right Cephalic Vein at the wrist measures Left Cephalic Vein at the wrist measures 0.24 0.40 x 0.36 cm. x 0.26 cm. Right Cephalic Vein in the forearm measures Left Cephalic Vein in the forearm measures 0.38 x 0.37 cm. 0.25 x 0.26 cm. Right Cephalic Vein below antecub measures Left Cephalic Vein below antecub measures 0.33 x 0.31 cm. 0.31 x 0.32 cm. Right Cephalic Vein above antecub measures Left Cephalic Vein above antecub measures 0.36 x 0.37 cm. 0.15 x 0.16 cm. Right Cephalic Vein mid bicep measures 0.34 Left Cephalic Vein at mid bicep measures 0.22 x 0.34 cm. x 0.22 cm. Right Cephalic Vein at the shoulder measures Left Cephalic Vein at the shoulder measures 0.25 x 0.26 cm. 0.16 x 0.16 cm. Right Basilic Vein at the origin measures Cephalic vein from axilla to mid bicep area 0.37 x 0.37 cm. is tortuous. Right Basilic Vein mid bicep measures 0.37 x Basilic vein at origin measures 0.50 x 0.50 0.37 cm. cm. Right Basilic Vein above antecub measures Basilic vein at bicep measures 0.48 x 0.51 0.27 x 0.27 cm. cm. Right Brachial artery measures 0.42 x 0.42 Basilic vein above antecub measures 0.48 x cm with a velocity of 123.5 cm/sec. 0.48 cm. Right Radial artery measures 0.25 x 0.25 cm Lt Brachial artery measures 0.38 x 0.38 cm with a velocity of 132.5 cm/sec. with a velocity of 150.7 cm/sec. Lt Radial artery measures 0.25 x 0.27 cm with a velocity of 96 cm/sec. VL/Dialysis Vein Map PRE-OP BILAT Interpretation Summary Patent and compressible bilateral upper extremity cephalic and basilic veins wi th dimensions as noted. Adequate diameter and flow bilateral radial and brachial arteries Ordering Physician: Lana Tucker Referring Physician: Houston Olson Performed By: Lee Ann Sommer RVT ?
== END | disposition home or self-care (01) ==
LOC: CVS 09:28
PROVIDERS: PCP Family Medicine; Referring Provider Physician Assistant Medical; Visit Provider Physician Assistant Medical
DX: N18.4 Chronic kidney disease, stage 4 (severe) (principal); R55 Syncope and collapse
CPT/HCPCS: 93225; 93226; 93880; 93985

== ENCOUNTER → 2021-12-23 | Outpatient (CLI) | payer MEDICARE, SELFPAY ==
--- NOTE | 2021-12-23 10:40 | RAD_ITS ---
STUDY: X-RAY CHEST REASON FOR EXAM: Male, 65 years old. SOB / SOA cough TECHNIQUE: XR Chest 2 Views COMPARISON: CT 12/02/2021. FINDINGS: Scattered nodularities in the lower lung sanchez. This can suggest a pneumonia. Normal size heart. Normal mediastinum and yessi. Normal visualized pulmonary arteries. There is atherosclerotic calcification of the aortic arch with tortuosity. There are diffuse degenerative changes of the visualized thoracic spine. There is degenerative osteoarthritis of the bilateral shoulders. There is no demonstrated abnormality of the visualized soft tissue structures of the upper abdomen. RAD/Chest PA and Lateral IMPRESSION: Scattered nodularities in the lower lung sanchez. This can suggest a pneumonia. Electronically Signed: Rich Maciel MD at 17:38 EDT ,
[2021-12-23 12:12] LABS: BNP,B-Type NATRIURETIC PEPTIDE 1216.5 pg/mL (0-100)
== END | disposition home or self-care (01) ==
PROVIDERS: PCP Family Medicine; Referring Provider Internal Medicine Cardiovascular Disease; Visit Provider Internal Medicine Cardiovascular Disease
DX: R05.9 Cough, unspecified (principal); I50.32 Chronic diastolic (congestive) heart failure; I48.0 Paroxysmal atrial fibrillation; R06.00 Dyspnea, unspecified
CPT/HCPCS: 36415; 71046; 83880

== ENCOUNTER 2021-12-27 06:37 | Inpatient (IN) | payer MEDICARE, SELFPAY ==
[2021-12-27] VITALS (34 sets, daily range): BP systolic 66–137; BP diastolic 40–68; PULSE 62–88; RESP 13–30; TEMP 35.9–36.2; O2SAT 96–100; BMI 42.1; BMI 40.8
--- NOTE | 2021-12-27 07:11 | EKG12_ITS ---
Test Reason : SYNCOPE Blood Pressure : / mmHG Vent. Rate : 065 BPM Atrial Rate : 065 BPM P-R Int : 142 ms QRS Dur : 100 ms QT Int : 448 ms P-R-T Axes : 045 006 010 degrees QTc Int : 465 ms Normal sinus rhythm Normal ECG Confirmed by ZARA BUSBY, GREG ([id number]), non linear editor DEMETRI SMITH ([id number]) on 12/29/2021 12:40:51 PM Referred By: BB Confirmed By:GREG ZUÑIGA MD
[2021-12-27] MEDS: Ondansetron 4 MG/2 ML Vial IV (07:21)
[2021-12-27] MEDS: Morphine 4 MG/ML Syringe IV (07:21)
--- NOTE | 2021-12-27 07:24 | CT_ITS ---
STUDY: CT CHEST, ABDOMEN T PELVIS WITHOUT CONTRAST REASON FOR EXAM: Male, 66 years old. Diffuse abdominal pain, syncope RADIATION DOSAGE (If Supplied By Facility): CTDIvol = ( 37.14 ) mGy, DLP = ( 3365.66 ) mGycm TECHNIQUE: Transaxial imaging was performed without the administration of intravenous contrast material. Multiplanar coronal and sagittal images were reformatted. Individualized dose optimization techniques were used for this CT. COMPARISON: 10/02/2021, 06/10/2020 FINDINGS: CHEST Lung windows show the lungs to be normally expanded. Persistent noncalcified subcentimeter nodules in both lung sanchez. Largest again measuring approximately 5 mm in the middle lobe on axial image 58 and lower lobe on axial image 56. No new suspicious noncalcified mass or nodule. However, since the previous study, there is been development of interstitial edema and enlarging bilateral pleural effusions suggesting pulmonary vascular congestion/early CHF. Dependent atelectasis noted in the lung bases. Soft tissue windows show normal-appearing thyroid gland. Stable scattered subcentimeter axillary lymph nodes. Slight increase in size and number of mediastinal lymph nodes since the previous study with an AP window lymph node now measuring 1.37 cm in short axis dimension where on the last exam it measured less than 1 cm. Normal heart and pericardium. There are calcifications of the coronary arteries. No significant change in the appearance of the hilar regions though evaluation for adenopathy in the hilum is limited due to lack of IV contrast. Normal unenhanced pulmonary arteries. Normal aorta arch and descending thoracic aorta. There are multi-level degenerative changes of the thoracic spine. ABDOMEN There is fatty infiltration of the liver with nodular border suggesting cirrhosis. There is now diffuse ascites around the periphery of the liver and spleen and down both paracolic gutters into the pelvis. Normal gallbladder and extrahepatic biliary system. Normal spleen. There is also been a change in the pancreas since the previous study, there are suspicious nodular densities in the mid body and tail the pancreas along with induration of the peripancreatic fat. This could be simple inflammation but also hemorrhage could have a similar appearance. Left kidney and adrenal gland have been previously removed. Stable complex and hyperdense right renal cysts without significant change since the previous study. Stable small hiatal hernia. Normal small intestine. Routine stool in the colon. Nonspecific thickening of some bowel loops likely due to the diffuse ascites. Normal appendix seen on coronal recon images 67 through 72 Normal abdominal aorta. Normal inferior vena cava. No suspicious retroperitoneal adenopathy. Normal abdominal wall. There are diffuse degenerative changes of the visualized lumbar spine, and pelvis. Replaced right hip free of complication PELVIS Normal urinary bladder. Small amount of pelvic fluid from the previously discussed ascites. There is no pelvic lymphadenopathy or mass lesion. Normal visualized pelvic arteries. CT/CT Chest, Abd, Pelvis WO Cont IMPRESSION: Stable noncalcified subcentimeter pulmonary nodules in both lung sanchez. Largest measure 5 mm in the right middle and right lower lobes. These are concerning for metastasis since the patient has a history of left renal cell CA. Increasing interstitial edema and enlarging pleural effusion since the previous study suggesting developing CHF. There is associated bibasilar atelectasis. No organized infiltrate. Calcified coronary vessels Increase in size and number of mediastinal lymph nodes with the largest lymph node now measuring 1.37 cm in short axis dimension. These are concerning for metastasis as well. Fatty liver with nodular border suggesting underlying cirrhosis there is now mild ascites around the periphery of the liver and spleen down both paracolic gutters and into the pelvis Concerning nodular densities in the body and tail of the pancreas measuring 2.86 and 2.83 cm. These have enlarged and become more conspicuous than on the previous study and are concerning for metastatic lesions. There is also new induration of the fat around the tail of the pancreas which could be due to inflammation or hemorrhage Nonspecific thickening of small and large bowel loops in the left lower quadrant likely due to ascites Stable simple and hyperdense right renal cysts without significant change since the previous study No suspicious new density in the left nephrectomy bed Degenerative bony changes Electronically Signed: Nick Sanders MD at 8:28 EDT ,
--- NOTE | 2021-12-27 07:30 | EX.ED.DYSGE1 ---
HPI History of Present Illness Chief Complaint: Syncope Narrative Narrative: 66-year-old male presenting with multiple complaints. He states that this morning he woke up about 2 AM and has not been to sleep since. 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 He feels as if he was constipated. Patient tried to have a bowel movement and states that after this he stood up and felt lightheaded. Patient states that he felt as if he was going to faint and was lowered softly to the ground. He did not lose consciousness. He did not hit his head. No loss of bladder or bowel control. No seizure-like activity. Patient states that he has felt this way and generally weak since. Patient points to the mid abdomen and states that he has pain here. He states that he is also experiencing shortness of breath which is not a new issue and he states he has been seeing Dr. Loja. He does report that he has chronic kidney disease and was referred to Dr. Ralph for a port for dialysis and sees Dr. Tucker for his chronic kidney disease. He also has a history of metastatic renal cell carcinoma and sees Dr. Kuhn. Currently has metastasis to the lungs. He was previously on Keytruda and axitinib but this is currently on hold due to his renal dysfunction since 09/25/2021. Patient also reports that he has decreased urinary output but denies any dysuria or hematuria. [facility] Medical History Abnormal CT of the abdomen Atrial fibrillation with rapid ventricular response (07/04/19) Bilateral pulmonary embolism (11/19/14) Chronic diastolic (congestive) heart failure Deep vein thrombosis of right lower extremity (11/19/14) Encounter for education Essential (primary) hypertension Gout Hypothyroidism Metastatic 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 Obesity Paroxysmal atrial fibrillation Pneumonitis Renal cell cancer Type 2 diabetes mellitus Viral URI Home Medications tamsulosin 0.4 mg PO BID 11/09/14 [History Last Taken 08/05/19] allopurinol 100 mg PO DAILYCM 05/03/15 [History Last Taken 08/05/19] finasteride 5 mg PO DAILY 05/03/15 [History Last Taken 08/05/19] pantoprazole 40 mg tablet,delayed release 40 mg PO DAILY #90 tab 02/02/20 [Rx Last Taken Unknown] rivaroxaban 20 mg tablet 20 mg PO DAILY 04/17/21 [History Last Taken Unknown] glipizide 5 mg tablet 1.25 mg PO PRN PRN tab 07/10/21 [History Last Taken Unknown] levothyroxine 100 mcg tablet 100 mcg PO DAILY 30 Days #30 tablet 09/16/21 [Rx Last Taken Unknown] clonidine HCl 0.1 mg tablet 0.1 mg PO BID 09/25/21 [History Last Taken Unknown] diltiazem HCl 120 mg capsule,extended release 24 hr 120 mg PO BID #180 cap 11/07/21 [Rx Last Taken Unknown] metoprolol tartrate 100 mg tablet 100 mg PO BID #180 tab 11/07/21 [Rx Last Taken Unknown] furosemide 40 mg tablet 40 mg PO DAILY #90 tab 12/24/21 [Rx Last Taken Unknown] Allergy/AdvReac Type Severity Reaction Status Date / Time Penicillins [PCN] Allergy PT UNSURE Verified 10/08/21 15:33 OF REACTION Family History Mother Diabetes Heart disease Kidney disease Hypertension CVA (cerebral vascular accident) Father Heart disease Surgical History History of colonoscopy (2018) History of left nephrectomy (2010) History of total hip arthroplasty (04/2015) Social History Smoking Status: Never smoker second hand exposure: No alcohol intake: never substance use type: does not use caffeine: Yes frequency: does not exercise ROS ROS ED Constitutional Constitutional ED: Denies chills or fever(s) Eyes Eyes: Denies blurry vision or diplopia ENT ENT ED: Denies rhinorrhea or sore throat Cardiovascular Cardiovascular: Denies chest pain Respiratory/Chest Respiratory/Chest: Reports dyspnea and dyspnea on exertion Gastrointestinal Gastrointestinal: Reports abdominal pain, constipation and nausea Genitourinary Genitourinary ED: Reports other Details: Decreased urinary output ; Denies dysuria or hematuria Musculoskeletal Musculoskeletal: Denies back pain or neck pain Integumentary Denies rash Neurologic Neurologic: Denies headache(s), paresthesias or weakness Psychiatric Psychiatric: Denies anxiety or depression EXAM Physical Exam Const Vital Signs: 12/27/21 06:38 06/04/22 06:43 12/27/21 08:43 Temperature 96.7 F L Temperature Source Temporal Pulse Rate 65 62 Respiratory Rate 13 20 H Respiratory Effort Normal Non-Labored Respiratory Pattern Normal Blood Pressure 137/62 H 104/67 Blood Pressure Mean 87 79 Pulse Ox 96 97 Oxygen Delivery Method Room Air Nasal Cannula Oxygen Flow Rate (L/min) 2 12/27/21 10:01 Temperature Temperature Source Pulse Rate 72 Respiratory Rate 16 Respiratory Effort Respiratory Pattern Blood Pressure 101/67 Blood Pressure Mean 78 Pulse Ox 97 Oxygen Delivery Method Nasal Cannula Oxygen Flow Rate (L/min) 2 Positive well nourished and obese General Appearance ED: NAD; Negative for pallor Nutritional Appearance: obese HEENT Reports moist mucous membranes Negative for trauma Eyes PERRL and EOMs intact bilaterally General Eye ED: Negative for pale conjunctiva or scleral icterus Neck no lymphadenopathy and supple Chest Wall inspection of chest normal and palpation of chest normal Resp normal respiratory effort and clear to auscultation bilaterally Cardio regular rate and regular rhythm GI Inspection: abdominal distention Palpation: tender epigastric and periumbilical Back/Spine no CVA tenderness Neuro oriented x3 and CN's II-XII intact bilaterally Sensorium / Orientation: alert Psych mental status grossly normal Skin no rashes or lesions noted General Skin Exam: Negative for jaundice or pallor MDM MDM MDM Narrative Medical decision making narrative: 66-year-old male with history of renal cell carcinoma with metastasis, on Xarelto for history of PE presenting with episode of near syncope and generalized weakness. Patient also does complain of some shortness of breath as well. He states this is a chronic issue. He is not hypoxic or tachypneic. He denies any sort of chest pain. Obtained an EKG and on my interpretation this is a normal sinus rhythm with a ventricular 65 bpm without sign of ischemic change or dysrhythmia. Chest x-ray on my interpretation does not show any acute pathology however the radiologist does state that there are nodular densities in the lung sanchez. CBC does not show leukocytosis and his white blood cell count is 9.7. Hemoglobin is 8.0 which is significantly lower than 10.3 in September. Patient does deny any black or bloody stools. Hemoccult was negative. Platelets are within normal limits at 225. Creatinine is now elevated to 3.0 and a GFR is declined to 17. Electrolytes within normal limits. Although his creatinine has worsened his BUN ratio is about the same. BNP has decreased to 703. High-sensitivity troponin is 16. Lipase was found to be 1182 which is new. The patient is complaining of epigastric pain. I did obtain CT imaging of the chest abdomen pelvis without contrast. This does show increased interstitial edema and pleural effusion which is new. The radiologist does also state that there are pulmonary nodules concerning for metastasis in the right middle and lower lobes. There are also increased size and number of mediastinal lymph nodes. There also are identified densities in the body and tail of the pancreas measuring 2.86 and 2.83 cm which correlate to the patient's increased lipase. Patient is not a drinker. There is also evidence of cirrhosis and new ascites. Patient's LFTs are within normal limits however. I spoke with oncology and they did state that the patient still had opportunities to take different second line chemotherapeutic agents but he would need medical optimization. The patient is still complaining of pain after morphine and fentanyl. I think he would benefit from hospitalization given that he would need a multidiscipline approach and multiple consults in addition to treating his pain. Impression: 1. Abdominal pain 2. Near syncope 3. Constipation 4. Acute pancreatitis 5. Metastatic renal cell carcinoma 6. Pulmonary nodules 7. Dyspnea 8. Pleural effusions 9. Ascites 10. Worsening mediastinal lymphadenopathy Lab Data Attestation: I reviewed the patient's lab results. Labs: Laboratory Results - last 24 hr 12/27/21 12/27/21 12/27/21 06:50 06:50 08:28 WBC RBC Hgb Hct MCV MCH MCHC RDW Std Deviation RDW Coeff of Shanell Plt Count MPV Immature Gran % (Auto) Neut % (Auto) Lymph % (Auto) [place] % (Auto) Eos % (Auto) Baso % (Auto) Absolute Neuts (auto) Absolute Lymphs (auto) Nucleated RBC % Sodium 140 Potassium 3.8 Chloride 109 H Carbon Dioxide 23.0 Anion Gap 8 BUN 59 H Creatinine 3.80 H Estim Creat Clear Calc 20.09 Est GFR (MDRD) Af Amer 21 L Est GFR (MDRD) Non-Af 17 L BUN/Creatinine Ratio 15.5 Glucose 154 H Calcium 9.1 Magnesium 1.6 Total Bilirubin 0.80 AST 11 L ALT 10 L Alkaline Phosphatase 56 Troponin I High Sens 16 B-Natriuretic Peptide 703.0 H Total Protein 6.7 Albumin 3.0 L Globulin 3.7 Albumin/Globulin Ratio 0.8 L Lipase 1182 H Urine Color Yellow Urine Clarity Clear Urine pH 6.0 Ur Specific Trinity 1.020 Urine Protein 500 H Urine Glucose (UA) Normal Urine Ketones Negative Urine Occult Blood 25 H Urine Nitrite Negative Urine Bilirubin Negative Urine Urobilinogen Normal Ur Leukocyte Esterase Negative Urine RBC 0-5 SEEN Urine WBC 0 SEEN Ur Squamous Epith Cells 0 SEEN Urine Bacteria 0 SEEN Urine Mucus 0 SEEN 12/27/21 08:35 WBC 9.7 RBC 3.03 L Hgb 8.0 L Hct 26.7 L MCV 88.1 MCH 26.4 L MCHC 30.0 L RDW Std Deviation 53.0 H RDW Coeff of Shanell 16.3 H Plt Count 225 MPV 9.7 Immature Gran % (Auto) 0.500 Neut % (Auto) 84.0 H Lymph % (Auto) 7.6 L [place] % (Auto) 6.8 Eos % (Auto) 0.7 Baso % (Auto) 0.4 Absolute Neuts (auto) 8.2 H Absolute Lymphs (auto) 0.74 L Nucleated RBC % 0 Sodium Potassium Chloride Carbon Dioxide Anion Gap BUN Creatinine Estim Creat Clear Calc Est GFR (MDRD) Af Amer Est GFR (MDRD) Non-Af BUN/Creatinine Ratio Glucose Calcium Magnesium Total Bilirubin AST ALT Alkaline Phosphatase Troponin I High Sens B-Natriuretic Peptide Total Protein Albumin Globulin Albumin/Globulin Ratio Lipase Urine Color Urine Clarity Urine pH Ur Specific Trinity Urine Protein Urine Glucose (UA) Urine Ketones Urine Occult Blood Urine Nitrite Urine Bilirubin Urine Urobilinogen Ur Leukocyte Esterase Urine RBC Urine WBC Ur Squamous Epith Cells Urine Bacteria Urine Mucus Radiography Diagnostic Testing: Clinical Impression(s) from Imaging Studies Chest/Abdomen/Pelvis CT 12/27/21 07:24 IMPRESSION: Stable noncalcified subcentimeter pulmonary nodules in both lung sanchez. Largest measure 5 mm in the right middle and right lower lobes. These are concerning for metastasis since the patient has a history of left renal cell CA. Increasing interstitial edema and enlarging pleural effusion since the previous study suggesting developing CHF. There is associated bibasilar atelectasis. No organized infiltrate. Calcified coronary vessels Increase in size and number of mediastinal lymph nodes with the largest lymph node now measuring 1.37 cm in short axis dimension. These are concerning for metastasis as well. Fatty liver with nodular border suggesting underlying cirrhosis there is now mild ascites around the periphery of the liver and spleen down both paracolic gutters and into the pelvis Concerning nodular densities in the body and tail of the pancreas measuring 2.86 and 2.83 cm. These have enlarged and become more conspicuous than on the previous study and are concerning for metastatic lesions. There is also new induration of the fat around the tail of the pancreas which could be due to inflammation or hemorrhage Nonspecific thickening of small and large bowel loops in the left lower quadrant likely due to ascites Stable simple and hyperdense right renal cysts without significant change since the previous study No suspicious new density in the left nephrectomy bed Degenerative bony changes Electronically Signed: Nick Sanders MD at 8:28 EDT , Chest X-Ray 12/27/21 07:42 IMPRESSION: Chronic interstitial changes with stable nodular densities in both lung sanchez. No organized infiltrate or effusion Electronically Signed: Nick Sanders MD at 8:32 EDT , Discharge Plan Disposition Disposition: Acute Care Hospital [facility] Discharge Date/Time: 12/27/21 11:00
--- NOTE | 2021-12-27 07:42 | RAD_ITS ---
STUDY: X-RAY CHEST REASON FOR EXAM: Male, 66 years old. Chest pain/pressure TECHNIQUE: Single AP portable view of the chest. COMPARISON: 12/23/2021 FINDINGS: EKG leads overlie the chest Chronic interstitial changes in both lung sanchez with subtle nodular densities again noted in both lung sanchez. Limited portable study does not show evidence of a organized infiltrate or effusion. Normal size heart. Normal mediastinum and yessi. Normal visualized pulmonary arteries. Normal visualized aortic arch and descending thoracic aorta. Normal visualized thoracic spine. Normal visualized ribs, clavicles, and shoulders. There is no demonstrated abnormality of the visualized soft tissue structures of the upper abdomen. RAD/Chest 1 View (Portable) IMPRESSION: Chronic interstitial changes with stable nodular densities in both lung sanchez. No organized infiltrate or effusion Electronically Signed: Nick Sanders MD at 8:32 EDT ,
[2021-12-27 08:08] LABS: ALB/GLOB Ratio 0.8 RATIO (0.9-2.4); AST(SGOT) 11 U/L (15-37); Alanine Aminotransfer ALT/SGPT 10 U/L (16-61); Alkaline Phosphatase 56 U/L (45-117); Anion Gap 8 (5-15); BUN 59 mg/dL (7-18); BUN/Creat Ratio 15.5 RATIO (10-20); Calcium,Total 9.1 mg/dL (8.5-10.1); Chloride 109 mmol/L (98-107); EST Glomerular Filtration Rate 17 mL/min (>60); Est Glom Filt Rate - Afr Amer 21 mL/min (>60); Estimated Creatinine Clearance 20.09 ml/min; Globulin 3.7 g/dL (2.2-4.2); Glucose 154 mg/dL (74-106); Lipase 1182 U/L (73-393); Magnesium 1.6 mg/dL (1.6-2.6); Potassium 3.8 mmol/L (3.5-5.1); Protein, Total 6.7 g/dL (6.4-8.2); Sodium Level 140 mmol/L (136-145); Troponin-I HS 16 pg/mL (3.0-78.0)
[2021-12-27 08:35] LABS: Bacteria 0 SEEN /hpf (None Seen); Mucous, Urine 0 SEEN /hpf (<or=2+); Squamous Epithelial Cells - UA 0 SEEN /hpf (0-5); White Blood Cells 0 SEEN /hpf (0-5)
[2021-12-27 08:41] LABS: Absolute Lymphocyte Count 0.74 X10^3/uL (0.83-4.51); Absolute Neutrophil Count 8.2 X10^3/uL (2.0-7.7); Basophil# 0.04 X10^3/uL; Basophil% 0.4 % (0-1); Eosinophil# 0.07 X10^3/uL; Eosinophils% 0.7 % (0-5); Hematocrit 26.7 % (40-54); Lymphocyte # 0.74 X10^3/ul (0.83-4.51); Lymphocyte % 7.6 % (19-41); Mean Corpuscular Hgb 26.4 pg (27.0-32.0); Mean Corpuscular Volume 88.1 fL (80-94); Mean Platelet Vol. 9.7 fl (6.2-12.0); Monocyte# 0.66 X10^3/uL; Monocyte% 6.8 % (0-10); NRBC Flagged by Analyzer 0 % (0-5); Neutrophil # 8.18 X10^3/uL (2.7-7.7); Platelet Count 225 K/mm3 (150-450); RBC Distribution Width CV 16.3 % (11.6-14.6); Red Blood Count 3.03 M/mm3 (4.6-6.2); White Blood Count 9.7 K/mm3 (4.4-11.0)
[2021-12-27 08:49] LABS: Color, Urine Yellow (Yellow); Glucose, Dipstick Normal (Normal); Ketone-Dipstick Negative (Negative); Leukocyte Esterase-Dipstick Negative /ul (Negative); Nitrite-Dipstick Negative (Negative); Occult Blood-Urine 25 /ul (Negative); Protein-Dipstick 500 mg/dl (Negative); Urine Bilirubin Dipstick Negative (Negative); Urine Clarity Clear (Clear); Urine Urobilinogen Normal (Normal)
[2021-12-27 08:54] LABS: Red Blood Cells-Urine 0-5 SEEN /hpf (0-5)
[2021-12-27] MEDS: fentaNYL 100 MCG/2 ML Ampul 25 MCG IV (10:07)
--- NOTE | 2021-12-27 11:26 | PCM.HP.STD ---
[facility] - General General Date of Admission: 12/27/21 Date of Service: 12/27/21 Chief Complaint: Generalized weakness, near fall and near syncope. HPI Narrative KRISSY SAAVEDRA, is a 66 M with multiple comorbidities but predominantly right renal cell cancer widely metastasized to lungs, abdomen, pancreas came to ED with generalized weakness, near fall and near syncope. He also has abdominal discomfort/mild pain mainly over right lower quadrant and is constipated. He has not good bowel movement for last for 5 days but had a small inadequate in the morning. Patient also has generalized swelling of lower extremities, mild abdomen, anasarca. He said he was on a steroid and gained a lot of weight which was discontinued in the mid September. For last 6 months he has been urinating less amount but denies dysuria/burning micturition. He was started on diuretic and is lost about 30 pounds since September 2020. Patient also has worsening shortness of breath and has seen treating plant operator Dr. Loja in October 2021. Patient has chronic diastolic heart failure on 12/03/2021 shows EF 55% LV systolic function normal, study technically difficult. Patient also has Holter monitor in September 2021 and reported heart rate varies between 50-117/min with paroxysmal A. fib. 3 beats of ventricular trigeminy and PVCs. Atrial fibrillation comprised 0.1% total QRS complexes. No VT. Patient does not have any chest pressure or pain. Twelve-lead EKG in the ER shows sinus rhythm 65 bpm, QTC 465 ms. Vitals reviewed. Heart rate and blood pressure in normal range. Chest x-ray shows chronic interstitial changes with stable nodular densities in both lungs. CT chest abdomen pelvis shows metastatic lung nodules largest 5 mm in right middle and right lower lobe. Increasing interstitial edema enlarging pleural effusion. Cirrhosis with fatty liver, mild ascites in paracolic gutter and pelvis. Pancreatic mets. Patient is further admitted with multiple complaints. [facility] Medical History Abnormal CT of the abdomen Atrial fibrillation with rapid ventricular response (07/04/19) Bilateral pulmonary embolism (11/19/14) Chronic diastolic (congestive) heart failure Deep vein thrombosis of right lower extremity (11/19/14) Encounter for education Essential (primary) hypertension Gout Hypothyroidism Metastatic 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 Obesity Paroxysmal atrial fibrillation Pneumonitis Renal cell cancer Type 2 diabetes mellitus Viral URI Home Medications tamsulosin 0.4 mg PO BID 11/09/14 [History Last Taken 08/05/19] allopurinol 100 mg PO DAILYCM 05/03/15 [History Last Taken 08/05/19] finasteride 5 mg PO DAILY 05/03/15 [History Last Taken 08/05/19] pantoprazole 40 mg tablet,delayed release 40 mg PO DAILY #90 tab 02/02/20 [Rx Last Taken Unknown] rivaroxaban 20 mg tablet 20 mg PO DAILY 04/17/21 [History Last Taken Unknown] glipizide 5 mg tablet 1.25 mg PO PRN PRN tab 07/10/21 [History Last Taken Unknown] levothyroxine 100 mcg tablet 100 mcg PO DAILY 30 Days #30 tablet 09/16/21 [Rx Last Taken Unknown] clonidine HCl 0.1 mg tablet 0.1 mg PO BID 09/25/21 [History Last Taken Unknown] diltiazem HCl 120 mg capsule,extended release 24 hr 120 mg PO BID #180 cap 11/07/21 [Rx Last Taken Unknown] metoprolol tartrate 100 mg tablet 100 mg PO BID #180 tab 11/07/21 [Rx Last Taken Unknown] furosemide 40 mg tablet 40 mg PO DAILY #90 tab 12/24/21 [Rx Last Taken Unknown] Allergy/AdvReac Type Severity Reaction Status Date / Time Penicillins [PCN] Allergy PT UNSURE Verified 10/08/21 15:33 OF REACTION Family History Mother Diabetes Heart disease Kidney disease Hypertension CVA (cerebral vascular accident) Father Heart disease Surgical History History of colonoscopy (2018) History of left nephrectomy (2010) History of total hip arthroplasty (04/2015) Social History Smoking Status: Never smoker second hand exposure: No alcohol intake: never substance use type: does not use caffeine: Yes frequency: does not exercise ROS ROS Narrative Constitutional: Reports fatigue and weakness, near fall. Decreased functional capacity. Generalized weakness rest admission HPI HEENT: Reports systems reviewed and no addt'l complaints, except as documented Respiratory/Chest: Worsening shortness of breath Gastrointestinal: Mild abdominal discomfort. Denies coffee ground emesis, hematemesis or vomiting Genitourinary: Decreased urine output. Denies burning urination or new urinary tract symptoms Musculoskeletal: Reports joint pain and limited range of motion Neurologic: Denies seizure-like activity skin: No ulcer. No rash Endocrinology: Reports systems reviewed and no addt'l complaints, except as documented Hematologic/Lymphatic: Reports systems reviewed and no addt'l complaints, except as documented Rest 14 ROS are negative except as mentioned in HPI Vital Signs Vital Signs Vital Signs: 12/27/21 06:38 12/27/21 06:43 12/27/21 08:43 Temperature 96.7 F L Temperature Source Temporal Pulse Rate 65 62 Respiratory Rate 13 20 H Respiratory Effort Normal Non-Labored Respiratory Pattern Normal Blood Pressure 137/62 H 104/67 Blood Pressure Mean 87 79 Blood Pressure Source Blood Pressure Position Blood Pressure Location Pulse Ox 96 97 Oxygen Delivery Method Room Air Nasal Cannula Oxygen Flow Rate (L/min) 2 12/27/21 10:01 12/27/21 10:38 12/27/21 11:16 Temperature 97.1 F L 97.0 F L Temperature Source Temporal Temporal Pulse Rate 72 70 72 Respiratory Rate 16 22 H 19 H Respiratory Effort Respiratory Pattern Blood Pressure 101/67 97/65 82/48 L Blood Pressure Mean 78 75 59 Blood Pressure Source Monitor Blood Pressure Position Semi-Fowlers Blood Pressure Location Left Arm Pulse Ox 97 99 96 Oxygen Delivery Method Nasal Cannula Nasal Cannula Nasal Cannula Oxygen Flow Rate (L/min) 2 2 2 Weight Weight: 302 lb 0.533 oz Body Mass Index (BMI) 42.1 Physical Exam Narrative Physical exam General: Alert, Oriented x3, Cooperative HEENT: Atraumatic, PERRLA, EOMI, Normocephalic Oral: Deep oropharyngeal structures not visualized. No Gingival or Mucosal Lesions/ Ulcerations Neck: Wide neck. Supple, No JVD, Negative Carotid Bruits Lungs: Air entry diminished in bilateral lung bases. No crepitation/rhonchi Cardiovascular: Regular rate, Regular Rhythm, Normal S1, Normal S2, No murmurs Abdomen: Mild tenderness over right lower quadrant. No guarding/DTT. No tenderness over epigastrium. Bowel Sounds Present. Mild ascites : Left lumbar surgical scar for left nephrectomy. Oliguria. No renal angle tenderness. No suprapubic tenderness. Extremities: Bilateral 3+ lower extremity pitting edema, Capillary Refill Less than 3 Seconds Skin: No rashes, No breakdown Musculoskeletal: No Tenderness to Palpation of Joints or Extremities. ROM restricted. Neurological: Cranial nerves II-XII grossly intact, DTR 2+/4 Psych/Mental Status: Flat affect. Results Lab / Micro Data Result Diagrams: 12/27/21 08:35 12/27/21 06:50 Labs: Laboratory Results - last 24 hr 12/27/21 06:50: Sodium 140, Potassium 3.8, Chloride 109 H, Carbon Dioxide 23.0, Anion Gap 8, BUN 59 H, Creatinine 3.80 H, Estim Creat Clear Calc 20.09, Est GFR (MDRD) Af Amer 21 L, Est GFR (MDRD) Non-Af 17 L, BUN/Creatinine Ratio 15.5, Glucose 154 H, Calcium 9.1, Magnesium 1.6, Total Bilirubin 0.80, AST 11 L, ALT 10 L, Alkaline Phosphatase 56, Troponin I High Sens 16, Total Protein 6.7, Albumin 3.0 L, Globulin 3.7, Albumin/Globulin Ratio 0.8 L, Lipase 1182 H 12/27/21 06:50: B-Natriuretic Peptide 703.0 H 12/27/21 08:28: Urine Color Yellow, Urine Clarity Clear, Urine pH 6.0, Ur Specific [place] 1.020, Urine Protein 500 H, Urine Glucose (UA) Normal, Urine Ketones Negative, Urine Occult Blood 25 H, Urine Nitrite Negative, Urine Bilirubin Negative, Urine Urobilinogen Normal, Ur Leukocyte Esterase Negative, Urine RBC 0-5 SEEN, Urine WBC 0 SEEN, Ur Squamous Epith Cells 0 SEEN, Urine Bacteria 0 SEEN, Urine Mucus 0 SEEN 12/27/21 08:35: WBC 9.7, RBC 3.03 L, Hgb 8.0 L, Hct 26.7 L, MCV 88.1, MCH 26.4 L, MCHC 30.0 L, RDW Std Deviation 53.0 H, RDW Coeff of Shanell 16.3 H, Plt Count 225, MPV 9.7, Immature Gran % (Auto) 0.500, Neut % (Auto) 84.0 H, Lymph % (Auto) 7.6 L, Rains % (Auto) 6.8, Eos % (Auto) 0.7, Baso % (Auto) 0.4, Absolute Neuts (auto) 8.2 H, Absolute Lymphs (auto) 0.74 L, Nucleated RBC % 0 Micro: Microbiology 12/27/21 09:35 Stool Stool Occult Blood ([facility]) - Final Radiology Impression Chest/Abdomen/Pelvis CT 12/27/21 07:24 IMPRESSION: Stable noncalcified subcentimeter pulmonary nodules in both lung sanchez. Largest measure 5 mm in the right middle and right lower lobes. These are concerning for metastasis since the patient has a history of left renal cell CA. Increasing interstitial edema and enlarging pleural effusion since the previous study suggesting developing CHF. There is associated bibasilar atelectasis. No organized infiltrate. Calcified coronary vessels Increase in size and number of mediastinal lymph nodes with the largest lymph node now measuring 1.37 cm in short axis dimension. These are concerning for metastasis as well. Fatty liver with nodular border suggesting underlying cirrhosis there is now mild ascites around the periphery of the liver and spleen down both paracolic gutters and into the pelvis Concerning nodular densities in the body and tail of the pancreas measuring 2.86 and 2.83 cm. These have enlarged and become more conspicuous than on the previous study and are concerning for metastatic lesions. There is also new induration of the fat around the tail of the pancreas which could be due to inflammation or hemorrhage Nonspecific thickening of small and large bowel loops in the left lower quadrant likely due to ascites Stable simple and hyperdense right renal cysts without significant change since the previous study No suspicious new density in the left nephrectomy bed Degenerative bony changes Electronically Signed: Nick Sanders MD at 8:28 EDT , Chest X-Ray 12/27/21 07:42 IMPRESSION: Chronic interstitial changes with stable nodular densities in both lung sanchez. No organized infiltrate or effusion Electronically Signed: Nick Sanders MD at 8:32 EDT , Assessment & Plan Assessment/Plan (1) Near syncope: (2) Acute kidney injury superimposed on CKD: PLAN: This 66-year-old gentleman admitted with generalized weakness, near fall near syncope with progressive worsening of shortness of breath, oliguria, declining of his functional capacity. 1. Near syncope/near fall probably due to declining physical capacity: Patient stated that he felt dizzy lightheaded but his son caught him therefore he did not fall. No loss of consciousness. Twelve-lead EKG is normal sinus rhythm troponin normal. Patient had recent echo on 12/03/2021 reported EF 55%, diastolic dysfunction LV systolic function normal, study technically study. Orthostatic blood pressure. No further work-up 2. Acute kidney injury on CKD stage IV, single right kidney: Patient follows Dr. Tucker. His present BUN/creatinine 59/3.8, estimated creatinine clearance 20 mill per minute. Last creatinine 3.39 on 11/05, 3.14 on 09/25, gradually worsening. As per ER physician, he also had vein mapping for anticipation of hemodialysis in the future. [employer] consulted. 3. Widely metastatic CKD stage IV right renal cancer, status post left nephrectomy 2010: In 2019, CT scan showed right renal mass thereafter biopsy reported renal cell carcinoma as per the CT abdomen and pelvis patient has bilateral pulmonary nodules, cirrhotic liver with perihepatic ascites, and paracolic gutter, and pancreatic mets. Patient also has bilateral effusion, with bibasilar atelectasis, right worse than the left. I do not think patient has large effusion which needs thoracocentesis. In 2018 he was started on nivolumab and ipilimumab. Thereafter he developed pneumonitis and paroxysmal A. fib in 2019, converted on medical therapy. Patient also had immunotherapy axitinib, pembrolizumab which was held due to elevated creatinine. As mentioned in HPI, he was taken off prednisone in mid September because of increased swelling/retention of fluid 4. Acute on chronic diastolic heart failure, paroxysmal A. fib, bilateral PE in 2014: As per CT patient enlarging pleural effusion with increased interstitial edema. BNP high 793. Started on Lasix 40 mill IV twice daily now and then Lasix drip as patient blood pressure is on lower side probably will not tolerate pulse diuretic. Continue metoprolol, and diltiazem CD with holding parameter. Fasting profile tomorrow a.m. Hold clonidine as patient BP is on lower side and will get further lower on diuretic. 5 multiple chronic comorbidities include bilateral pulmonary embolism, hypertension, hypothyroidism, immunotherapy induced pneumonitis, right lower extremity DVT: Multiple comorbidities complicates the present care and expect difficult and delay recovery Living will/advanced directive/end of life care: Patient does have living will or advanced directive. His son is POA of health After discussion of benefits/risks procedures involved with full code, DNR CC arrest and DNR CC, the patient opted for DNRCC arrest with no intubation Patient doesn't want artificial life support including intubation, tube feed, ventilator and/chest compression, central venous catheter, vasopressor and DC shock if needed Total time spent in [id number] encounter in discussion of advanced directive 16 minutes. Charges/Coding Visit Charges Inpatient E&M: 48779 Init Hosp L3 Procedures Hospitalists Procedures: 59758 Advncd Care Plan 30 Min
[2021-12-27 11:57] LABS: Magnesium 1.8 mg/dL (1.6-2.6); Phosphorus 4.5 mg/dL (2.5-4.9)
--- NOTE | 2021-12-27 12:42 | PCM.CONS.R ---
Assessment & Plan Assessment/Plan (1) Acute kidney injury superimposed on CKD: PLAN: likely due to shock/ATN. Creatinine baseline 2.6 to 3.3 increased to 3.8 on admit with poor urine output. Maintain SBP >100 for renal perfusion in solitary kidney. Discussed with hospitalist may need pressor support. Avoid iv contrast, nephrotoxins. Monitor urine output. (2) CKD (chronic kidney disease) stage 4, GFR 15-29 ml/min: PLAN: in solitary kidney s/p nephrectomy for cancer with nephrotic proteinuria, hx chemotherapy induced renal failure. Baseline creatinine 2.6 eGFR 32cc/min to 3.39 eGFR 23cc/min (3) Syncope: PLAN: with hypotension, evaluate for sepsis (4) Dyspnea: (5) Metastatic 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: QUALIFIERS: Laterality: unspecified laterality Qualified Code(s): C78.00 - Secondary malignant neoplasm of unspecified lung; C64.9 - Malignant neoplasm of unspecified kidney, except renal pelvis PLAN: hem/onc mgmt (6) Anemia: QUALIFIERS: Anemia type: unspecified type Qualified Code(s): D64.9 - Anemia, unspecified PLAN: hgb 8.0g, hem/onc mgmt (7) Hypotension: (8) Bilateral pulmonary embolism: PLAN: DVT on chronic anticoagulation (9) Abdominal pain: PLAN: due to acute pancreatitis (10) Acute pancreatitis: PLAN: pancreatic mass HPI Consult Data Date of Consult: 12/28/21 HPI Narrative HPI Narrative: KRISSY SAAVEDRA, is a 66 M who presents to [facility] on 12/27/21 for syncope, near syncope this morning at 5am after driving [place]. He came home and felt like he was going to pass out and fall while getting out of his truck requiring help from his son. He complained of abdominal pain and received narcotics in the ER. BP low in the 70's systolic, felt tired and short of breath. He has chronic leg edema on diuretics. He has a history of DVT/PE on anticoagulation chronically. He has nephrotic proteinuria with history of metastatic RCC to lungs, now with pancreatic mass on CT. He is s/p left nephrectomy with baseline creatinine of 2.5 in July 2021 progressed to 3.39 in October 2021 when he was last seen in my office. He was referred to Dr Ralph for dialysis access placement. He has received chemotherapy managed by oncology with prednisone May 2021 to September 2021. His pembrolizumab/axitinib was discontinued in April 2021 due to progressive renal failure. He had COVID infection in June 2021. Creatinine improved to 2.5 in Jul 2021 but progressed to 3.39 in October requiring escalating dose of diuretics for leg swelling, SOB. Pt denied change in urine volume. States has been feeling his usual self yesterday until this morning. Labs on admit showed WBC 9, Hgb 8, Cr. 3.8, BNP 703 and lipase >1100. Troponin WNL. A non contrast CT showed increased interstitial edema and pleural effusion, new nodular densities (2) in the head and body of the pancreas and ascites and also new induration of the fat around the tail of the pancreas, thought by radiology to be due to inflammation or hemorrhage and cirrhosis. Comparing CT report to CTs obtained September 2021, lung nodules have not changed in size but report does indicate a slight increase in size of mediastinal LN. [facility] Medical History (Updated 12/28/21 @ 10:[address] Lana Tucker, ) Abnormal CT of the abdomen Anemia Atrial fibrillation with rapid ventricular response (07/04/19) Bilateral pulmonary embolism (11/19/14) Chronic diastolic (congestive) heart failure Deep vein thrombosis of right lower extremity (11/19/14) Encounter for education Essential (primary) hypertension Gout Hypothyroidism Metastatic 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 Obesity Pancreatic mass Paroxysmal atrial fibrillation Pneumonitis Renal cell cancer Type 2 diabetes mellitus Viral URI Home Medications tamsulosin 0.4 mg PO BID 11/09/14 [History Last Taken 08/05/19] allopurinol 100 mg PO DAILYCM 05/03/15 [History Last Taken 08/05/19] finasteride 5 mg PO DAILY 05/03/15 [History Last Taken 08/05/19] pantoprazole 40 mg tablet,delayed release 40 mg PO DAILY #90 tab 02/02/20 [Rx Last Taken Unknown] rivaroxaban 20 mg tablet 20 mg PO DAILY 04/17/21 [History Last Taken Unknown] glipizide 5 mg tablet 1.25 mg PO PRN PRN tab 07/10/21 [History Last Taken Unknown] levothyroxine 100 mcg tablet 100 mcg PO DAILY 30 Days #30 tablet 09/16/21 [Rx Last Taken Unknown] clonidine HCl 0.1 mg tablet 0.1 mg PO BID 09/25/21 [History Last Taken Unknown] diltiazem HCl 120 mg capsule,extended release 24 hr 120 mg PO BID #180 cap 11/07/21 [Rx Last Taken Unknown] metoprolol tartrate 100 mg tablet 100 mg PO BID #180 tab 11/07/21 [Rx Last Taken Unknown] furosemide 40 mg tablet 40 mg PO DAILY #90 tab 12/24/21 [Rx Last Taken Unknown] Allergy/AdvReac Type Severity Reaction Status Date / Time Penicillins [PCN] Allergy PT UNSURE Verified 10/08/21 15:33 OF REACTION Family History Mother Diabetes Heart disease Kidney disease Hypertension CVA (cerebral vascular accident) Father Heart disease Surgical History History of colonoscopy (2018) History of left nephrectomy (2010) History of total hip arthroplasty (04/2015) Social History Smoking Status: Never smoker second hand exposure: No alcohol intake: never substance use type: does not use caffeine: Yes frequency: does not exercise ROS Constitutional Constitutional: Reports chills, malaise and weakness; Denies fever(s) Eyes Eyes: Denies change in vision ENT HEENT: Denies loss taste/smell Cardiovascular Cardiovascular: Denies chest pain Respiratory/Chest Respiratory/Chest: Reports dry cough, dyspnea on exertion and shortness of breath at rest; Denies hemoptysis Gastrointestinal Gastrointestinal: Reports abdominal pain; Denies diarrhea, hematochezia, melena, nausea or vomiting Genitourinary Genitourinary: Denies difficulty urinating, dysuria or flank pain Musculoskeletal Musculoskeletal: Reports other Details: gen weakness Integumentary Integumentary: Denies rash Neurologic Neurologic: Denies focal weakness or headache(s) Psychiatric Psychiatric: Denies anxiety or depression Endocrine Endocrinology: Reports fatigue; Denies cold intolerance or heat intolerance Hematologic/Lymphatic Hematologic/Lymphatic: Reports anemia, easy bleeding, easy bruising and other Details: on anticoagulation chronically for DVT/PE. Hx metastatic RCC to lung Physical Exam Const alert and oriented x3 Constitutional Narrative: mild dyspnea, weak, fatigue HEENT normocephalic Resp clear to auscultation bilaterally Cardio regular rate Cardio Narrative: irregular rhythm, ectopy GI Auscultation: normoactive bowel sounds Palpation: soft and tender epigastric, LLQ and RLQ (diffuse, distended) Bladder / Kidney Exam: No catheter in place Extremity General Extremity: edema bilateral (chronic, hx DVT RLE) Skin Skin Narrative: ecchymosis Neuro Sensorium / Orientation: awake and alert Psych cooperative Lab / Micro Data Result Diagrams: 12/28/21 08:45 12/28/21 03:40 Labs: Laboratory Results - last 24 hr 12/27/21 06:50: Sodium 140, Potassium 3.8, Chloride 109 H, Carbon Dioxide 23.0, Anion Gap 8, BUN 59 H, Creatinine 3.80 H, Estim Creat Clear Calc 20.09, Est GFR (MDRD) Af Amer 21 L, Est GFR (MDRD) Non-Af 17 L, BUN/Creatinine Ratio 15.5, Glucose 154 H, Calcium 9.1, Magnesium 1.6, Total Bilirubin 0.80, AST 11 L, ALT 10 L, Alkaline Phosphatase 56, Troponin I High Sens 16, Total Protein 6.7, Albumin 3.0 L, Globulin 3.7, Albumin/Globulin Ratio 0.8 L, Lipase 1182 H 12/27/21 06:50: B-Natriuretic Peptide 703.0 H 12/27/21 06:50: Phosphorus 4.5, Magnesium 1.8 12/27/21 08:28: Urine Color Yellow, Urine Clarity Clear, Urine pH 6.0, Ur Specific [place] 1.020, Urine Protein 500 H, Urine Glucose (UA) Normal, Urine Ketones Negative, Urine Occult Blood 25 H, Urine Nitrite Negative, Urine Bilirubin Negative, Urine Urobilinogen Normal, Ur Leukocyte Esterase Negative, Urine RBC 0-5 SEEN, Urine WBC 0 SEEN, Ur Squamous Epith Cells 0 SEEN, Urine Bacteria 0 SEEN, Urine Mucus 0 SEEN 12/27/21 08:35: WBC 9.7, RBC 3.03 L, Hgb 8.0 L, Hct 26.7 L, MCV 88.1, MCH 26.4 L, MCHC 30.0 L, RDW Std Deviation 53.0 H, RDW Coeff of Shanell 16.3 H, Plt Count 225, MPV 9.7, Immature Gran % (Auto) 0.500, Neut % (Auto) 84.0 H, Lymph % (Auto) 7.6 L, [place] % (Auto) 6.8, Eos % (Auto) 0.7, Baso % (Auto) 0.4, Absolute Neuts (auto) 8.2 H, Absolute Lymphs (auto) 0.74 L, Nucleated RBC % 0 Micro: Microbiology 12/27/21 09:35 Stool Stool Occult Blood ([facility]) - Final Radiology Impression Chest/Abdomen/Pelvis CT 12/27/21 07:24 IMPRESSION: Stable noncalcified subcentimeter pulmonary nodules in both lung sanchez. Largest measure 5 mm in the right middle and right lower lobes. These are concerning for metastasis since the patient has a history of left renal cell CA. Increasing interstitial edema and enlarging pleural effusion since the previous study suggesting developing CHF. There is associated bibasilar atelectasis. No organized infiltrate. Calcified coronary vessels Increase in size and number of mediastinal lymph nodes with the largest lymph node now measuring 1.37 cm in short axis dimension. These are concerning for metastasis as well. Fatty liver with nodular border suggesting underlying cirrhosis there is now mild ascites around the periphery of the liver and spleen down both paracolic gutters and into the pelvis Concerning nodular densities in the body and tail of the pancreas measuring 2.86 and 2.83 cm. These have enlarged and become more conspicuous than on the previous study and are concerning for metastatic lesions. There is also new induration of the fat around the tail of the pancreas which could be due to inflammation or hemorrhage Nonspecific thickening of small and large bowel loops in the left lower quadrant likely due to ascites Stable simple and hyperdense right renal cysts without significant change since the previous study No suspicious new density in the left nephrectomy bed Degenerative bony changes Electronically Signed: Nick Sanders MD at 8:28 EDT , Chest X-Ray 12/27/21 07:42 IMPRESSION: Chronic interstitial changes with stable nodular densities in both lung sanchez. No organized infiltrate or effusion Electronically Signed: Nick Sanders MD at 8:32 EDT ,
--- NOTE | 2021-12-27 13:27 | NURSING ---
Report called to ICU [facility]
--- NOTE | 2021-12-27 14:10 | CASEMGMT ---
Dr. Simms placed order for palliative and referral e-mailed to [facility]. Gonzalo MCGUIRE CM
[2021-12-27] MEDS: Senna/Docusate Sodium 1 Tablet 2 TABLET PO ×2 (15:27→21:24)
[2021-12-27] MEDS: Polyethylene Glycol 3350 17 GM PACKET PO (15:27)
[2021-12-27 15:43] LABS: International Normalized Ratio 2.6; Prothrombin Time (Protime)PT. 27.9 SECONDS (11.7-14.9)
--- NOTE | 2021-12-27 16:46 | VDLE_ITS ---
Reason For Study: Swelling RIGHT LEFT GSV is normal. GSV is normal. CFV is compressible, spontaneous, phasic, CFV is compressible, spontaneous, phasic, competent and demonstrates normal competent, and demonstrates normal augmentation. augmentation. FV is compressible, spontaneous, phasic, FV is compressible, spontaneous, phasic, competent and demonstrates normal competent and demonstrates normal augmentation. augmentation. POP V is compressible, spontaneous, phasic, POP V is compressible, spontaneous, phasic, competent and demonstrates normal competent and demonstrates normal augmentation. augmentation. PTV is compressible. T/P Trunk is compressible. RT PerV is compressible. PTV is compressible. Rt T/P Trunk is partially compressible with LT PerV is compressible. bright intraluminal echoes consistent with chronic DVT. Procedure This is a venous duplex using B-mode, color flow and spectral Doppler. Exam performed portable in ICU/CCU. The study was technically difficult. Unable to visualize prox/mid calf veins bilaterally due to patient body habitus. A preliminary report was called and/or faxed to [facility]. VL/Venous Duplex US - Arcenio Extrem Interpretation Summary Technically difficult examination. Unable to image bilateral proximal to mid ca lf veins secondary to patient body habitus. Only partial compressibility of the right tibioperoneal trunk with bright inter nal echoes suggesting chronic deep venous thrombosis. Cannot exclude an acute component. No evidence for acute deep venous thrombosis left lower extremity Patent and compressible bilateral great saphenous veins Ordering Physician: Beck Simms Referring Physician: Houston Olson Performed By: Inga Lin, JOCELYN, RVT
[2021-12-27 17:15] LABS: Bedside Glucose 153 mg/dL (74-106)
[2021-12-27] MEDS: 0.9% Saline Lock 10 ML Syringe IV (21:24)
[2021-12-27] MEDS: Rivaroxaban 20 MG Tablet PO (21:24)
[2021-12-27] MEDS: Tamsulosin HCl 0.4 MG Capsule PO (21:24)
[2021-12-27 21:41] LABS: Bedside Glucose 168 mg/dL (74-106)
[2021-12-28] VITALS (43 sets, daily range): BP systolic 103–147; BP diastolic 42–118; PULSE 86–140; RESP 18–30; TEMP 35.8–36.8; O2SAT 94–100
[2021-12-28] MEDS: TITRATION PARAMETER CHANGE 1 EACH IV (00:26)
[2021-12-28 03:57] LABS: Absolute Lymphocyte Count 0.79 X10^3/uL (0.83-4.51); Absolute Neutrophil Count 9.2 X10^3/uL (2.0-7.7); Basophil# 0.03 X10^3/uL; Basophil% 0.3 % (0-1); Hematocrit 20.5 % (40-54); Hemoglobin 6.2 g/dL (13.0-16.5); Lymphocyte # 0.79 X10^3/ul (0.83-4.51); Lymphocyte % 7.1 % (19-41); Mean Corp Hgb Conc 30.2 g/dL (32-36); Mean Corpuscular Volume 89.1 fL (80-94); Monocyte# 0.99 X10^3/uL; Monocyte% 8.9 % (0-10); NRBC Flagged by Analyzer 0 % (0-5); Neutrophil # 9.23 X10^3/uL (2.7-7.7); Neutrophil % 83.1 % (47-70); Platelet Count 241 K/mm3 (150-450); RBC Distribution Width CV 16.6 % (11.6-14.6); RBC Distribution Width SD 53.6 fl (35.1-43.9); White Blood Count 11.1 K/mm3 (4.4-11.0)
[2021-12-28 04:17] LABS: Anion Gap 12 (5-15); BUN 74 mg/dL (7-18); BUN/Creat Ratio 14.1 RATIO (10-20); Calcium,Total 8.3 mg/dL (8.5-10.1); Chloride 105 mmol/L (98-107); Cholesterol 122 mg/dL (200); Creatinine, Serum 5.25 mg/dL (0.70-1.30); EST Glomerular Filtration Rate 12 mL/min (>60); Est Glom Filt Rate - Afr Amer 14 mL/min (>60); Estimated Creatinine Clearance 14.54 ml/min; Glucose 177 mg/dL (74-106); High Density Lipoprotein 36 mg/dL; Potassium 4.7 mmol/L (3.5-5.1); Sodium Level 138 mmol/L (136-145); Thyroid Stim Hormone (TSH) 4.53 uIU/mL (0.358-3.74); Triglycerides 152 mg/dL; Very Low Density Lipoprotein 30 mg/dL (5-40)
[2021-12-28] MEDS: Levothyroxine 100 MCG Tablet PO (05:03)
--- NOTE | 2021-12-28 05:48 | EX.PCM.CONCC ---
Assessment & Plan Assessment/Plan (1) Anemia: QUALIFIERS: Anemia type: unspecified type Qualified Code(s): D64.9 - Anemia, unspecified (2) Acute kidney injury superimposed on CKD: (3) Near syncope: PLAN: RECOMMENDATIONS: 1. Send type and screen and transfuse packed red blood cells if hemoglobin remains below 7 g/dL. 2. Transition to PPI therapy twice daily. 3. Consider holding Xarelto. 4. Initiate gentle IV fluid hydration. 5. Consider general surgery consultation to evaluate pancreatic findings noted on CT imaging. IMPRESSIONS: 1. Hypotension The patient was initially transferred to the ICU for management of his hypotension, which developed after receiving a large dose of IV opiate pain medication. This likely precipitated his hemodynamic instability. While the patient was transiently on Levophed, he has been weaned from vasopressor support and remains hemodynamically stable. 2. Acute on chronic kidney disease Likely prerenal in etiology/ischemic ATN. Nephrology is currently following. Avoid nephrotoxic medications and maintain hemodynamic stability. Avoid diuretics for now. 3. Anemia The patient presented with worsening anemia and a hemoglobin that is now less than 7 g/dL. Accordingly, I recommend transfusion of blood products. In light of the findings noted on CT abdomen, including induration surrounding the tail of the pancreas, which could be related to inflammation or hemorrhage, recommend general surgery consultation for input. Additionally, the patient has been maintained on Xarelto as an outpatient due to a history of recurrent VTE. Nevertheless, I would recommend that he do Xarelto be placed on hold for now. Check H&H posttransfusion. Continue PPI therapy. 4. Generalized weakness with near syncope Potentially related to intravascular volume depletion and worsening anemia. The patient's hemodynamic status has stabilized. He is without any further vasopressor requirement. Continue to monitor clinically. 5. Metastatic renal cell carcinoma/paroxysmal atrial fibrillation/history of VTE/history of heart failure with preserved ejection fraction Complicates care, management, recovery and prognosis. Consider holding Xarelto in light of worsening anemia. This note was generated with [employer] dictation software. It may contain incorrect words, spelling, and punctuation that were not noted in checking the note before signing. HPI Consult Data Date of Consult: 12/29/21 HPI Narrative Reason for Consultation: Hypotension HPI Narrative: The patient is a 66-year-old male, with a history as outlined below, who presented to the emergency department via EMS on December 27 with dizziness and lightheadedness. He also reported mild abdominal discomfort and constipation. The patient is currently followed by Dr. Tucker of nephrology due to a history of chronic kidney disease stage IV. The patient is also followed by Dr. Oliver of oncology due to a history of renal cell cancer, diagnosed in 2010, status post left radical nephrectomy in October 2010. In 2018, the patient was noted to have recurrence of his renal cell carcinoma in the right kidney with metastasis to the lung. He was subsequently started on nivolumab and Ipilimumab. 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 According to the patient's oncologist last note, his CT scan from September 2021 showed stable disease with no evidence of progression. His immunotherapy, which included Keytruda and Axitinib was placed on hold due to renal dysfunction. 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 Surface echocardiogram dated December 03 demonstrated normal LV size and function with an ejection fraction of 55%. On presentation to the emergency department, the patient was noted to be afebrile and hemodynamically stable. He was initially documented to be saturating 96% on room air. Laboratory evaluation revealed a hemoglobin of 8.0 g/dL, down 2 g from 3 months earlier. Platelet count was stable. Coagulation profile revealed an INR of 2.6. Chemistry profile was notable for a creatinine of 3.8. BNP was elevated at 703. Lipase was elevated at 1182. Urine analysis was unremarkable. CT abdomen/pelvis was obtained. There was evidence of pulmonary edema and bilateral pleural effusions. There was fatty infiltration of the liver with nodular border suggesting cirrhosis. Suspicious nodular densities were noted in the mid body and tail of the pancreas. Although the patient was initially admitted to the progressive care unit, he was given IV opiate pain medications, which apparently led to the development of hypotension and the transient need for vasopressor support. Accordingly, he was transferred to the ICU for supportive care. However, as of this morning, the patient has been weaned from Levophed and remains hemodynamically stable. FORMERLY [facility], [facility] Medical History Abnormal CT of the abdomen Anemia Atrial fibrillation with rapid ventricular response (07/04/19) Bilateral pulmonary embolism (11/19/14) Chronic diastolic (congestive) heart failure Deep vein thrombosis of right lower extremity (11/19/14) Encounter for education Essential (primary) hypertension Gout Hypothyroidism Metastatic 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 Obesity Pancreatic mass Paroxysmal atrial fibrillation Pneumonitis Renal cell cancer Type 2 diabetes mellitus Viral URI Home Medications tamsulosin 0.4 mg PO BID 11/09/14 [History Last Taken 08/05/19] allopurinol 100 mg PO DAILYCM 05/03/15 [History Last Taken 08/05/19] finasteride 5 mg PO DAILY 05/03/15 [History Last Taken 08/05/19] pantoprazole 40 mg tablet,delayed release 40 mg PO DAILY #90 tab 02/02/20 [Rx Last Taken Unknown] rivaroxaban 20 mg tablet 20 mg PO DAILY 04/17/21 [History Last Taken Unknown] glipizide 5 mg tablet 1.25 mg PO PRN PRN tab 07/10/21 [History Last Taken Unknown] levothyroxine 100 mcg tablet 100 mcg PO DAILY 30 Days #30 tablet 09/16/21 [Rx Last Taken Unknown] clonidine HCl 0.1 mg tablet 0.1 mg PO BID 09/25/21 [History Last Taken Unknown] diltiazem HCl 120 mg capsule,extended release 24 hr 120 mg PO BID #180 cap 11/07/21 [Rx Last Taken Unknown] metoprolol tartrate 100 mg tablet 100 mg PO BID #180 tab 11/07/21 [Rx Last Taken Unknown] furosemide 40 mg tablet 40 mg PO DAILY #90 tab 12/24/21 [Rx Last Taken Unknown] Allergy/AdvReac Type Severity Reaction Status Date / Time Penicillins [PCN] Allergy PT UNSURE Verified 10/08/21 15:33 OF REACTION Family History Mother Diabetes Heart disease Kidney disease Hypertension CVA (cerebral vascular accident) Father Heart disease Surgical History History of colonoscopy (2018) History of left nephrectomy (2010) History of total hip arthroplasty (04/2015) Social History Smoking Status: Never smoker second hand exposure: No alcohol intake: never substance use type: does not use caffeine: Yes frequency: does not exercise ROS Constitutional Constitutional: Denies chills or fever(s) Eyes Eyes: Denies blurry vision or change in vision ENT HEENT: Reports dizziness; Denies headache(s), hoarseness or loss taste/smell Cardiovascular Cardiovascular: Reports dizziness; Denies chest pain Respiratory/Chest Respiratory/Chest: Denies chest tightness, cough or dyspnea Gastrointestinal Gastrointestinal: Reports abdominal pain; Denies nausea or vomiting Genitourinary Genitourinary: Denies difficulty urinating Musculoskeletal Musculoskeletal: Denies arthralgias, back pain or joint pain Integumentary Integumentary: Denies lesions, rash or skin ulcer Neurologic Neurologic: Denies abnormal gait or abnormal speech Psychiatric Psychiatric: Denies anxiety or depression Endocrine Endocrinology: Reports fatigue Hematologic/Lymphatic Hematologic/Lymphatic: Denies easy bleeding or easy bruising Physical Exam Const alert and oriented x3 General Appearance: cooperative Nutritional Appearance: morbidly obese HEENT normocephalic, head/scalp atraumatic and moist oral mucous membranes Eyes PERRL, EOMs intact bilaterally and conjunctivae normal Neck supple General: trachea midline Chest inspection of chest normal Resp Auscultation: diminished lung sounds; Negative for rales, rhonchi or wheezes Cardio regular rate and regular rhythm GI GI Narrative: Nonfocal tenderness to palpation. Inspection: Negative for abdominal distention Palpation: tender Extremity General Extremity: edema bilateral lower extremity; Negative for clubbing Skin no rashes or lesions noted Neuro CN's II-XII intact bilaterally, moves all extremities and no focal motor deficits Psych cooperative and affect normal Lab / Micro Data Result Diagrams: 12/29/21 05:51 12/29/21 05:51 Labs: Laboratory Results - last 24 hr 12/27/21 06:50: Sodium 140, Potassium 3.8, Chloride 109 H, Carbon Dioxide 23.0, Anion Gap 8, BUN 59 H, Creatinine 3.80 H, Estim Creat Clear Calc 20.09, Est GFR (MDRD) Af Amer 21 L, Est GFR (MDRD) Non-Af 17 L, BUN/Creatinine Ratio 15.5, Glucose 154 H, Calcium 9.1, Magnesium 1.6, Total Bilirubin 0.80, AST 11 L, ALT 10 L, Alkaline Phosphatase 56, Troponin I High Sens 16, Total Protein 6.7, Albumin 3.0 L, Globulin 3.7, Albumin/Globulin Ratio 0.8 L, Lipase 1182 H 12/27/21 06:50: B-Natriuretic Peptide 703.0 H 12/27/21 06:50: Phosphorus 4.5, Magnesium 1.8 12/27/21 08:28: Urine Color Yellow, Urine Clarity Clear, Urine pH 6.0, Ur Specific [place] 1.020, Urine Protein 500 H, Urine Glucose (UA) Normal, Urine Ketones Negative, Urine Occult Blood 25 H, Urine Nitrite Negative, Urine Bilirubin Negative, Urine Urobilinogen Normal, Ur Leukocyte Esterase Negative, Urine RBC 0-5 SEEN, Urine WBC 0 SEEN, Ur Squamous Epith Cells 0 SEEN, Urine Bacteria 0 SEEN, Urine Mucus 0 SEEN 12/27/21 08:35: WBC 9.7, RBC 3.03 L, Hgb 8.0 L, Hct 26.7 L, MCV 88.1, MCH 26.4 L, MCHC 30.0 L, RDW Std Deviation 53.0 H, RDW Coeff of [place]ell 16.3 H, Plt Count 225, MPV 9.7, Immature Gran % (Auto) 0.500, Neut % (Auto) 84.0 H, Lymph % (Auto) 7.6 L, [place] % (Auto) 6.8, Eos % (Auto) 0.7, Baso % (Auto) 0.4, Absolute Neuts (auto) 8.2 H, Absolute Lymphs (auto) 0.74 L, Nucleated RBC % 0 12/27/21 15:15: PT 27.9 H, INR 2.6 12/27/21 17:09: POC Glucose 153 H 12/27/21 21:36: POC Glucose 168 H 12/28/21 03:40: WBC 11.1 H, RBC 2.30 L, Hgb 6.2 L, Hct 20.5 L, MCV 89.1, MCH 27.0, MCHC 30.2 L, RDW Std Deviation 53.6 H, RDW Coeff of [place] 16.6 H, Plt Count 241, MPV 10.0, Immature Gran % (Auto) 0.600, Neut % (Auto) 83.1 H, Lymph % (Auto) 7.1 L, [place] % (Auto) 8.9, Eos % (Auto) 0.0, Baso % (Auto) 0.3, Absolute Neuts (auto) 9.2 H, Absolute Lymphs (auto) 0.79 L, Nucleated RBC % 0 12/28/21 03:40: Sodium 138, Potassium 4.7, Chloride 105, Carbon Dioxide 21.0, Anion Gap 12, BUN 74 H, Creatinine 5.25 H, Estim Creat Clear Calc 14.54, Est GFR (MDRD) Af Amer 14 L, Est GFR (MDRD) Non-Af 12 L, BUN/Creatinine Ratio 14.1, Glucose 177 H, Calcium 8.3 L, Triglycerides 152, Cholesterol 122, LDL Cholesterol 56, VLDL Cholesterol 30, HDL Cholesterol 36 L, TSH 4.53 H Micro: Microbiology 12/27/21 09:35 Stool Stool Occult Blood ([facility]) - Final Radiology Impression Chest/Abdomen/Pelvis CT 12/27/21 07:24 IMPRESSION: Stable noncalcified subcentimeter pulmonary nodules in both lung sanchez. Largest measure 5 mm in the right middle and right lower lobes. These are concerning for metastasis since the patient has a history of left renal cell CA. Increasing interstitial edema and enlarging pleural effusion since the previous study suggesting developing CHF. There is associated bibasilar atelectasis. No organized infiltrate. Calcified coronary vessels Increase in size and number of mediastinal lymph nodes with the largest lymph node now measuring 1.37 cm in short axis dimension. These are concerning for metastasis as well. Fatty liver with nodular border suggesting underlying cirrhosis there is now mild ascites around the periphery of the liver and spleen down both paracolic gutters and into the pelvis Concerning nodular densities in the body and tail of the pancreas measuring 2.86 and 2.83 cm. These have enlarged and become more conspicuous than on the previous study and are concerning for metastatic lesions. There is also new induration of the fat around the tail of the pancreas which could be due to inflammation or hemorrhage Nonspecific thickening of small and large bowel loops in the left lower quadrant likely due to ascites Stable simple and hyperdense right renal cysts without significant change since the previous study No suspicious new density in the left nephrectomy bed Degenerative bony changes Electronically Signed: Nick Sanders MD at 8:28 EDT , Chest X-Ray 12/27/21 07:42 IMPRESSION: Chronic interstitial changes with stable nodular densities in both lung sanchez. No organized infiltrate or effusion Electronically Signed: Nick Sadners MD at 8:32 EDT , Charges/Coding Visit Charges Inpatient E&M: 75390 Init Hosp L3
--- NOTE | 2021-12-28 07:44 | CON.PCM.ON_ITS ---
Assessment & Plan Assessment/Plan (1) Metastatic 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: Status: Chronic Code(s): C78.00 - Secondary malignant neoplasm of unspecified lung; C64.9 - Malignant neoplasm of unspecified kidney, except renal pelvis Qualifiers: Laterality: unspecified laterality Qualified Code(s): C78.00 - Secondary malignant neoplasm of unspecified lung; C64.9 - Malignant neoplasm of unspecified kidney, except renal pelvis (2) Anemia: Status: Acute Code(s): D64.9 - Anemia, unspecified Qualifiers: Anemia type: unspecified type Qualified Code(s): D64.9 - Anemia, unspecified (3) Pancreatic mass: Status: Acute Code(s): K86.89 - Other specified diseases of pancreas Plan: Mr. James Wright is a very pleasant 66-year-old gentleman with multiple comorbidities including metastatic renal cell carcinoma, clear-cell histology involving lungs now with worsening kidney function, CHF, pancreatitis, anemia and new finding of two pancreatic masses. 1. mRCC-was treated with palliative doublet immunotherapy first-line and combination PD-L1 inhibitor and VEGF inhibitor second line. Patient experienced a modest survival benefit but treatment has been on hold due to toxicity. Patient had elected surveillance rather than pursuing third line therapy as of September 2021 as the metastatic cancer involving his lungs has been stable for months off of therapy. The noncontrast CT chest abdomen and pelvis obtained 12/27/21 was reviewed along with previous surveillance CT chest abdomen and pelvis obtained in September 2021. Known area of metastatic deposits involving lung nodules are still reported as stable. Imaging also demonstrated evidence of 2 new pancreatic densities and inflammation surrounding the pancreas with questionable hemorrhage (discussed below). His cancer is incurable but prior to this admission, ECOG 0-1 thus he would be a candidate for further therapy with VEGF inhibitor if/when his mRCC progresses. 2. Pancreatic densities- indeterminate. Will require follow up. Biopsy would be required to investigate these findings to confirm 1) malignancy and 2) If malignant, elucidate metastatic RCC deposit versus new primary malignancy. But given acute presentation with pancreatitis, cannot label as progressive disease. Pancreatitis could be secondary to history of PD-L1 inhibitor therapy (nivolumab, ipilimumab, and pembrolizumab). 3. Anemia-normocytic, hemoglobin 8 on presentation yesterday 6.2 today. INR noted to be 2.6 in the emergency department yesterday. General surgery has been consulted. Anemia is multifactorial given acute on chronic kidney dysfunction and hemorrhagic pancreatitis. Bilirubin yesterday was within normal limits. Although suspicion is very low given he has been exposed to several PD-L1 inhibitors, we will request LDH and reticulocyte count to further rule out any contribution hemolysis may have. Recommend transfusion to keep Hgb >7 g/dL unless cardiology advises different parameter. Case was discussed with Dr. Pereira who was in agreement with aforementioned plan. Will continue to follow based on new findings during admission relevant to his oncology care. HPI Consult Data Date of Service:: 12/29/21 PCP / Referring Provider: Dr. Houston Olson DO Attending: Dr. Beck Simms MD Chief Complaint Chief Complaint: [facility] History of Present Illness History of Present Illness: Mr. James Wright is a very pleasant 66 year old gentleman with a PMH significant for afib, PE, CHF, HTN, DM, and morbid obesity who was initially diagnosed with RCC, clear cell histology involving his left kidney in 2010. He is s/p left nephrectomy. Multiple subcm lung nodules were identified in 2010 and observed until 11/[address] C/A/P demonstrated increase in size of lung nodules and new complex masses in the right kidney, later pathologically confirmed as RCC, clear cell. Completed 4 cycles palliative nivolumab/ipilimumab 05/07/19-06/29/2019. Developed pneumonitis. 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 He completed prednisone taper May 2021-September 2021. His care was further complicated by COVID19 infection June 2021, received monoclonal antibody infusion. CT scans obtained September 2021 demonstrated stability of bilat subcm lung nodules, thus patient elected observation with imaging every 3 months rather than pursuing third line treatment options. Mr. Wirght presented to [facility] ED 12/27/21 with c/o near syncope, RLQ pain and constipation. Labs were significant for Hgb 8, Cr. 3.8 with maintained BUN ratio , BNP 703 and lipase >1100. Troponin WNL. A non contrast CT C/A/P demonstrated new increased interstitial edema and pleural effusion, new nodular densities (2) in the head and body of the pancreas and ascites and also new induration of the fat around the tail of the pancreas, thought by radiology to be due to inflammation or hemorrhage and cirrhosis. Comparing CT report to CTs obtained September 2021, lung nodules have not changed in size but report does indicate a slight increase in size of mediastinal LN. The patient was subsequently admitted for management of pancreatitis, CKD, CHF. Upon entering the room the patient is lying supine in bed. Reports continued abd pain involving now bilat lower quads. States he attempted to produce a BM this morning but is only able to pass gas. Experiencing palpitations and chest discomfort with activity. Advanced Directives Power of Campaign Developer: Yes Living Will: Yes [facility] Medical History Abnormal CT of the abdomen Anemia Atrial fibrillation with rapid ventricular response (07/04/19) Bilateral pulmonary embolism (11/19/14) Chronic diastolic (congestive) heart failure Deep vein thrombosis of right lower extremity (11/19/14) Encounter for education Essential (primary) hypertension Gout Hypothyroidism Metastatic 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 Obesity Pancreatic mass Paroxysmal atrial fibrillation Pneumonitis Renal cell cancer Type 2 diabetes mellitus Viral URI Home Medications tamsulosin 0.4 mg PO BID 11/09/14 [History Last Taken 08/05/19] allopurinol 100 mg PO DAILYCM 05/03/15 [History Last Taken 08/05/19] finasteride 5 mg PO DAILY 05/03/15 [History Last Taken 08/05/19] pantoprazole 40 mg tablet,delayed release 40 mg PO DAILY #90 tab 02/02/20 [Rx Last Taken Unknown] rivaroxaban 20 mg tablet 20 mg PO DAILY 04/17/21 [History Last Taken Unknown] glipizide 5 mg tablet 1.25 mg PO PRN PRN tab 07/10/21 [History Last Taken Unknown] levothyroxine 100 mcg tablet 100 mcg PO DAILY 30 Days #30 tablet 09/16/21 [Rx Last Taken Unknown] clonidine HCl 0.1 mg tablet 0.1 mg PO BID 09/25/21 [History Last Taken Unknown] diltiazem HCl 120 mg capsule,extended release 24 hr 120 mg PO BID #180 cap 11/07/21 [Rx Last Taken Unknown] metoprolol tartrate 100 mg tablet 100 mg PO BID #180 tab 11/07/21 [Rx Last Taken Unknown] furosemide 40 mg tablet 40 mg PO DAILY #90 tab 12/24/21 [Rx Last Taken Unknown] Allergy/AdvReac Type Severity Reaction Status Date / Time Penicillins [PCN] Allergy PT UNSURE Verified 10/08/21 15:33 OF REACTION Family History Mother Diabetes Heart disease Kidney disease Hypertension CVA (cerebral vascular accident) Father Heart disease Surgical History History of colonoscopy (2018) History of left nephrectomy (2010) History of total hip arthroplasty (04/2015) Social History Smoking Status: Never smoker second hand exposure: No alcohol intake: never substance use type: does not use caffeine: Yes frequency: does not exercise ROS ROS Narrative ECOG 2-3 Constitutional Constitutional: Reports change in weight and fatigue Eyes Eyes: Reports systems reviewed and no addt'l complaints, except as documented ENT HEENT: Reports systems reviewed and no addt'l complaints, except as documented Cardiovascular Cardiovascular: Reports dizziness, dyspnea at rest, edema and irregular heart rhythm Respiratory/Chest Respiratory/Chest: Reports dyspnea; Denies cough or hemoptysis Gastrointestinal Gastrointestinal: Reports abdominal pain and constipation; Denies coffee ground emesis, diarrhea, dysphagia, hematochezia, hemorrhoids, melena or nausea Genitourinary Genitourinary: Reports anuria; Denies hematuria or low back pain Musculoskeletal Musculoskeletal: Reports muscle weakness Integumentary Integumentary: Reports systems reviewed and no addt'l complaints, except as documented; Denies pruritus Neurologic Neurologic: Reports syncope Physical Exam Const alert and oriented x3 General Appearance: ill appearing Positive for acutely Nutritional Appearance: morbidly obese HEENT normocephalic and head/scalp atraumatic Eyes conjunctivae normal and no scleral icterus Eyes Narrative: wears glasses Neck no lymphadenopathy Chest inspection of chest normal Resp Auscultation: diminished lung sounds Cardio regular rate, regular rhythm and no murmurs GI GI Narrative: Mildly tender to bilateral lower quadrants, normoactive bowel sounds. Hepatomegaly difficult to discern due to large body habitus. Extremity General Extremity: edema bilateral lower extremity Skin no rashes or lesions noted Neuro oriented x3 and CN's II-XII intact bilaterally Psych mental status grossly normal, thought process normal and cooperative Mood & Affect: depressed Vital Signs Temperature 97.6 F L 12/28/21 00:00 Temperature Source Temporal 12/28/21 00:00 Pulse Rate 93 12/28/21 07:00 Pulse Strength Weak (1+) 12/27/21 21:44 Respiratory Rate 24 H 12/28/21 07:00 Respiratory Effort Non-Labored 12/28/21 03:22 Respiratory Depth Normal 12/28/21 03:22 Respiratory Pattern Normal 12/28/21 03:22 Blood Pressure 142/73 H 12/28/21 07:00 Blood Pressure Mean 96 12/28/21 07:00 Blood Pressure Source Monitor 12/28/21 07:00 Blood Pressure Position Semi-Fowlers 12/28/21 07:00 Blood Pressure Location Left Arm 12/28/21 07:00 Pulse Ox 100 12/28/21 07:00 Oxygen Delivery Method Nasal Cannula 12/28/21 07:00 Oxygen Flow Rate (L/min) 2 12/28/21 07:00 Laboratory Results - last 24 hr 12/27/21 06:50: Sodium 140, Potassium 3.8, Chloride 109 H, Carbon Dioxide 23.0, Anion Gap 8, BUN 59 H, Creatinine 3.80 H, Estim Creat Clear Calc 20.09, Est GFR (MDRD) Af Amer 21 L, Est GFR (MDRD) Non-Af 17 L, BUN/Creatinine Ratio 15.5, Glucose 154 H, Calcium 9.1, Magnesium 1.6, Total Bilirubin 0.80, AST 11 L, ALT 10 L, Alkaline Phosphatase 56, Troponin I High Sens 16, Total Protein 6.7, Albumin 3.0 L, Globulin 3.7, Albumin/Globulin Ratio 0.8 L, Lipase 1182 H 12/27/21 06:50: B-Natriuretic Peptide 703.0 H 12/27/21 06:50: Phosphorus 4.5, Magnesium 1.8 12/27/21 08:28: Urine Color Yellow, Urine Clarity Clear, Urine pH 6.0, Ur Specific [place] 1.020, Urine Protein 500 H, Urine Glucose (UA) Normal, Urine Ketones Negative, Urine Occult Blood 25 H, Urine Nitrite Negative, Urine Bilirubin Negative, Urine Urobilinogen Normal, Ur Leukocyte Esterase Negative, Urine RBC 0-5 SEEN, Urine WBC 0 SEEN, Ur Squamous Epith Cells 0 SEEN, Urine Bacteria 0 SEEN, Urine Mucus 0 SEEN 12/27/21 08:35: WBC 9.7, RBC 3.03 L, Hgb 8.0 L, Hct 26.7 L, MCV 88.1, MCH 26.4 L , MCHC 30.0 L, RDW Std Deviation 53.0 H, RDW Coeff of Shanell 16.3 H, Plt Count 225, MPV 9.7, Immature Gran % (Auto) 0.500, Neut % (Auto) 84.0 H, Lymph % (Auto) 7.6 L, Mcpherson % (Auto) 6.8, Eos % (Auto) 0.7, Baso % (Auto) 0.4, Absolute Neuts (auto) 8.2 H, Absolute Lymphs (auto) 0.74 L, Nucleated RBC % 0 12/27/21 15:15: PT 27.9 H, INR 2.6 12/27/21 17:09: POC Glucose 153 H 12/27/21 21:36: POC Glucose 168 H 12/28/21 03:40: WBC 11.1 H, RBC 2.30 L, Hgb 6.2 L, Hct 20.5 L, MCV 89.1, MCH 27.0, MCHC 30.2 L, RDW Std Deviation 53.6 H, RDW Coeff of Shanell 16.6 H, Plt Count 241, MPV 10.0, Immature Gran % (Auto) 0.600, Neut % (Auto) 83.1 H, Lymph % (Auto) 7.1 L, Mcpherson % (Auto) 8.9, Eos % (Auto) 0.0, Baso % (Auto) 0.3, Absolute Neuts (auto) 9.2 H, Absolute Lymphs (auto) 0.79 L, Nucleated RBC % 0 12/28/21 03:40: Sodium 138, Potassium 4.7, Chloride 105, Carbon Dioxide 21.0, Anion Gap 12, BUN 74 H, Creatinine 5.25 H, Estim Creat Clear Calc 14.54, Est GFR (MDRD) Af Amer 14 L, Est GFR (MDRD) Non-Af 12 L, BUN/Creatinine Ratio 14.1, Glucose 177 H, Calcium 8.3 L, Triglycerides 152, Cholesterol 122, LDL Cholesterol 56, VLDL Cholesterol 30, HDL Cholesterol 36 L, TSH 4.53 H Microbiology 12/27/21 09:35 Stool Stool Occult Blood (EDER) - Final Diagnostic Data Chest/Abdomen/Pelvis CT 12/27/21 07:24 IMPRESSION: Stable noncalcified subcentimeter pulmonary nodules in both lung sanchez. Largest measure 5 mm in the right middle and right lower lobes. These are concerning for metastasis since the patient has a history of left renal cell CA. Increasing interstitial edema and enlarging pleural effusion since the previous study suggesting developing CHF. There is associated bibasilar atelectasis. No organized infiltrate. Calcified coronary vessels Increase in size and number of mediastinal lymph nodes with the largest lymph node now measuring 1.37 cm in short axis dimension. These are concerning for metastasis as well. Fatty liver with nodular border suggesting underlying cirrhosis there is now mild ascites around the periphery of the liver and spleen down both paracolic gutters and into the pelvis Concerning nodular densities in the body and tail of the pancreas measuring 2.86 and 2.83 cm. These have enlarged and become more conspicuous than on the previous study and are concerning for metastatic lesions. There is also new induration of the fat around the tail of the pancreas which could be due to inflammation or hemorrhage Nonspecific thickening of small and large bowel loops in the left lower quadrant likely due to ascites Stable simple and hyperdense right renal cysts without significant change since the previous study No suspicious new density in the left nephrectomy bed Degenerative bony changes Electronically Signed: Nick Sanders MD at 8:28 EDT , Chest X-Ray 12/27/21 07:42 IMPRESSION: Chronic interstitial changes with stable nodular densities in both lung sanchez. No organized infiltrate or effusion Electronically Signed: Nick Sanders MD at 8:32 EDT ,
--- NOTE | 2021-12-28 07:55 | EKG12_ITS ---
Test Reason : ABN RHYTHM Blood Pressure : / mmHG Vent. Rate : 133 BPM Atrial Rate : 147 BPM P-R Int : 000 ms QRS Dur : 098 ms QT Int : 340 ms P-R-T Axes : 000 005 126 degrees QTc Int : 506 ms Atrial fibrillation Nonspecific ST and T wave abnormality Abnormal ECG When compared with ECG of 27-DEC-2021 06:50, MANUAL COMPARISON REQUIRED, DATA IS UNCONFIRMED Confirmed by ZARA BUSBY, GREG ([id number]), metropolitan editor DEMETRI SMITH [id number]) on 12/30/2021 1:19:53 PM Referred By: JOSUE Confirmed By:GREG ZUÑIGA MD
--- NOTE | 2021-12-28 08:14 | PN.HOSP_ITS ---
Subjective Subjective Follow-up for hypotension, CKD stage IV, multiple comorbidities including stage IV RCC Overnight events noted. Patient blood pressure improved and Levophed drip discontinued last night. BP 142/73, sinus rhythm 93. secured entrance monitor reviewed at times patient heart rate was high, sinus tachycardia in 120s. Patient has abdominal pain diffuse all over predominantly umbilical and right lower quadrant. Objective Data Objective Data Vital Signs: Vital Signs Temp Pulse Resp BP Pulse Ox 97.6 F L 93 24 H 142/73 H 100 12/28/21 00:00 12/28/21 07:00 12/28/21 07:00 12/28/21 07:00 12/28/21 07:00 Oxygen Flow Rate (L/min) 2 Oxygen Delivery Method Nasal Cannula Weight: 296 lb 11.875 oz Body Mass Index (BMI) 40.8 Intake & Output: Intake and Output for Last 24 Hours 12/26/21 12/27/21 12/28/21 23:59 23:59 23:59 Intake Total 654.83 / 657.66 231.11 / 231.11 Output Total 0 / 0 Balance 654.83 / 657.66 231.11 / 231.11 Lab / Micro Data Result Diagrams: 12/28/21 08:45 12/28/21 03:40 Labs: Laboratory Results - last 24 hr 12/27/21 06:50: B-Natriuretic Peptide 703.0 H 12/27/21 06:50: Phosphorus 4.5, Magnesium 1.8 12/27/21 08:28: Urine Color Yellow, Urine Clarity Clear, Urine pH 6.0, Ur Specific [place] 1.020, Urine Protein 500 H, Urine Glucose (UA) Normal, Urine Ketones Negative, Urine Occult Blood 25 H, Urine Nitrite Negative, Urine Bilirubin Negative, Urine Urobilinogen Normal, Ur Leukocyte Esterase Negative, Urine RBC 0-5 SEEN, Urine WBC 0 SEEN, Ur Squamous Epith Cells 0 SEEN, Urine Bacteria 0 SEEN, Urine Mucus 0 SEEN 12/27/21 08:35: WBC 9.7, RBC 3.03 L, Hgb 8.0 L, Hct 26.7 L, MCV 88.1, MCH 26.4 L , MCHC 30.0 L, RDW Std Deviation 53.0 H, RDW Coeff of Shanell 16.3 H, Plt Count 225, MPV 9.7, Immature Gran % (Auto) 0.500, Neut % (Auto) 84.0 H, Lymph % (Auto) 7.6 L, [place] % (Auto) 6.8, Eos % (Auto) 0.7, Baso % (Auto) 0.4, Absolute Neuts (auto) 8.2 H, Absolute Lymphs (auto) 0.74 L, Nucleated RBC % 0 12/27/21 15:15: PT 27.9 H, INR 2.6 12/27/21 17:09: POC Glucose 153 H 12/27/21 21:36: POC Glucose 168 H 12/28/21 03:40: WBC 11.1 H, RBC 2.30 L, Hgb 6.2 L, Hct 20.5 L, MCV 89.1, MCH 27.0, MCHC 30.2 L, RDW Std Deviation 53.6 H, RDW Coeff of Shanell 16.6 H, Plt Count 241, MPV 10.0, Immature Gran % (Auto) 0.600, Neut % (Auto) 83.1 H, Lymph % (Auto) 7.1 L, [place] % (Auto) 8.9, Eos % (Auto) 0.0, Baso % (Auto) 0.3, Absolute Neuts (auto) 9.2 H, Absolute Lymphs (auto) 0.79 L, Nucleated RBC % 0 12/28/21 03:40: Sodium 138, Potassium 4.7, Chloride 105, Carbon Dioxide 21.0, Anion Gap 12, BUN 74 H, Creatinine 5.25 H, Estim Creat Clear Calc 14.54, Est GFR (MDRD) Af Amer 14 L, Est GFR (MDRD) Non-Af 12 L, BUN/Creatinine Ratio 14.1, Glucose 177 H, Calcium 8.3 L, Triglycerides 152, Cholesterol 122, LDL Cholesterol 56, VLDL Cholesterol 30, HDL Cholesterol 36 L, TSH 4.53 H Micro: Microbiology 12/27/21 09:35 Stool Stool Occult Blood ([facility]) - Final Radiography Diagnostic Testing: Radiology Impression Chest/Abdomen/Pelvis CT 12/27/21 07:24 IMPRESSION: Stable noncalcified subcentimeter pulmonary nodules in both lung sanchez. Largest measure 5 mm in the right middle and right lower lobes. These are concerning for metastasis since the patient has a history of left renal cell CA. Increasing interstitial edema and enlarging pleural effusion since the previous study suggesting developing CHF. There is associated bibasilar atelectasis. No organized infiltrate. Calcified coronary vessels Increase in size and number of mediastinal lymph nodes with the largest lymph node now measuring 1.37 cm in short axis dimension. These are concerning for metastasis as well. Fatty liver with nodular border suggesting underlying cirrhosis there is now mild ascites around the periphery of the liver and spleen down both paracolic gutters and into the pelvis Concerning nodular densities in the body and tail of the pancreas measuring 2.86 and 2.83 cm. These have enlarged and become more conspicuous than on the previous study and are concerning for metastatic lesions. There is also new induration of the fat around the tail of the pancreas which could be due to inflammation or hemorrhage Nonspecific thickening of small and large bowel loops in the left lower quadrant likely due to ascites Stable simple and hyperdense right renal cysts without significant change since the previous study No suspicious new density in the left nephrectomy bed Degenerative bony changes Electronically Signed: Nick Sanders MD at 8:28 EDT , Chest X-Ray 12/27/21 07:42 IMPRESSION: Chronic interstitial changes with stable nodular densities in both lung sanchez. No organized infiltrate or effusion Electronically Signed: Nick Sanders MD at 8:32 EDT , Physical Exam Narrative Physical exam General: Alert, Oriented x3, Cooperative HEENT: Atraumatic, PERRLA, EOMI, Normocephalic Oral: Deep oropharyngeal structures not visualized. No Gingival or Mucosal Lesions/ Ulcerations Neck: Wide neck. Supple, No JVD, Negative Carotid Bruits Lungs: Air entry diminished in bilateral lung bases. No crepitation/rhonchi Cardiovascular: Sinus rhythm, Normal S1, Normal S2, No murmurs Abdomen: Diffuse tenderness over abdomen. No guarding/rigidity. Bowel Sounds Present. Mild ascites : No urine output. Left lumbar surgical scar for left nephrectomy. No renal angle tenderness. No suprapubic tenderness. Extremities: Bilateral 3+ lower extremity pitting edema, Capillary Refill Less than 3 Seconds Skin: No rashes, No breakdown Musculoskeletal: No Tenderness to Palpation of Joints or Extremities. ROM restricted. Neurological: Cranial nerves II-XII grossly intact, DTR 2+/4 Psych/Mental Status: Flat affect. Assessment & Plan Assessment/Plan (1) Near syncope: (2) Acute kidney injury superimposed on CKD: PLAN: This 66-year-old gentleman admitted with generalized weakness, near fall near syncope with progressive worsening of shortness of breath, oliguria, declining of his functional capacity. 1. Near syncope/near fall probably due to declining physical capacity: Patient stated that he felt dizzy lightheaded but his son caught him therefore he did not fall. No loss of consciousness. Twelve-lead EKG is normal sinus rhythm troponin normal. Patient had recent echo on 12/03/2021 reported EF 55%, diastolic dysfunction LV systolic function normal, study technically study. Orthostatic blood pressure. No further work-up 12/28 hypotension: Hypotension has resolved. Patient required transient IV norepinephrine in the ICU. Hemodynamically better, transferred to PCU. Discussed with teacher instrumental near syncope dizziness has resolved. 2. Acute kidney injury on CKD stage IV, single right kidney: Patient follows Dr. Tucker. His present BUN/creatinine 59/3.8, estimated creatinine clearance 20 mill per minute. Last creatinine 3.39 on 11/05, 3.14 on 09/25, gradually worsening. As per ER physician, he also had vein mapping for anticipation of hemodialysis in the future. Linen Room Attendant consulted. 12/28: No urine output. Linen Room Attendant follow-up. Increase in creatinine to 5.25. 3. Widely metastatic, acute on CKD stage IV, present on admission right renal cell cancer, status post left nephrectomy 2011: In 2019, CT scan showed right renal mass thereafter biopsy reported renal cell carcinoma as per the CT abdomen and pelvis patient has bilateral pulmonary nodules, cirrhotic liver with perihepatic ascites, and paracolic gutter, and pancreatic mets. Patient also has bilateral effusion, with bibasilar atelectasis, right worse than the left. I do not think patient has large effusion which needs thoracocentesis. In 2019 he was started on nivolumab and ipilimumab. Thereafter he developed pneumonitis and paroxysmal A. fib in 2019, converted on medical therapy. Patient also had immunotherapy axitinib, pembrolizumab which was held due to elevated creatinine. As mentioned in HPI, he was taken off prednisone in mid September because of increased swelling/retention of fluid Acute pancreatitis with pancreatic mass on CT scan 12/28: Diffuse abdominal pain with tenderness. Lipase 1182.LDH normal general surgery Dr. Cuello consulted. After review of CT scan although limited because contrast cannot be given, seems pancreatitis. Conservative management with n.p.o. except medications. 4. Acute on chronic diastolic heart failure, paroxysmal A. fib, bilateral PE in 2014: As per CT patient enlarging pleural effusion with increased interstitial edema. BNP high 793. Started on Lasix 40 mill IV twice daily now and then Lasix drip as patient blood pressure is on lower side probably will not tolerate pulse diuretic. Continue metoprolol, and diltiazem CD with holding parameter. 12/28: 1 dose Lasix as patient is short of breath and tachypneic. Lipid profile reviewed #5: Intermittent tachypnea and shortness of breath: Lasix 40 mg IV given. Midodrine 10 mg 3 times daily started patient has features of decompensated cirrhosis. 5 multiple chronic comorbidities include bilateral pulmonary embolism, hypertension, hypothyroidism, immunotherapy induced pneumonitis, right lower extremity DVT: Multiple comorbidities complicates the present care and expect difficult and delay recovery TSH 4.53, free T4 normal: Probably euthyroid sick syndrome I talked to the patient's sons, Mr. Turner and Mr. Anthony Wright and [id number] and narrated about poor prognosis in view of stage IV RCC with wide metastasis, decompensated heart failure, acute kidney injury and CKD stage IV, abdominal pain possible pancreatitis. We also discussed the option of hospice but family member are discussing him on themselves and advised to let us know. Total time of the visit including total time spent in counseling or coordination of care, (more than 50% of the total time, spent in obtaining medical information from nurses and other ancillary care providers,explaining to the patient about labs, imaging, diagnosis and management), discussion with multiple consultants, family discussion, review of labs and imaging is 45 minutes. Living will/advanced directive/end of life care: Patient does have living will or advanced directive. His son is POA of health After discussion of benefits/risks procedures involved with full code, DNR CC arrest and DNR CC, the patient opted for DNRCC arrest with no intubation Patient doesn't want artificial life support including intubation, tube feed, ventilator and/chest compression, central venous catheter, vasopressor and DC shock if needed Charges/Coding Visit Charges Inpatient E&M: [id number] [facility] Hosp L3
[2021-12-28 08:51] LABS: Bedside Glucose 160 mg/dL (74-106)
[2021-12-28] MEDS: Allopurinol 100 MG Tablet PO (08:51)
[2021-12-28] MEDS: Glucerna Shake 120 ML LIQUID PO ×2 (08:51→17:19)
[2021-12-28] MEDS: Insulin Lispro 100 UNIT/ML INSULN.PEN SC ×3 (08:54→21:36)
[2021-12-28 08:57] LABS: Hematocrit 20.3 % (40-54); Platelet Count 231 K/mm3 (150-450); RET-HE 24.6 pg (30-35); Reticulocyte Count 3.74 % (0.5-1.5)
[2021-12-28 09:14] LABS: International Normalized Ratio 2.3; Prothrombin Time (Protime)PT. 24.8 SECONDS (11.7-14.9)
[2021-12-28 09:20] LABS: AST(SGOT) 8 U/L (15-37); Alanine Aminotransfer ALT/SGPT 9 U/L (16-61); Albumin, Serum 2.6 g/dL (3.2-5.0); Alkaline Phosphatase 49 U/L (45-117); Bilirubin, Direct 0.21 mg/dL (0.00-0.30); Globulin 3.3 g/dL (2.2-4.2); LDH 133 U/L (87-241); Protein, Total 5.9 g/dL (6.4-8.2); T4 Free Direct 1.23 ng/dL (0.76-1.46)
[2021-12-28 10:03] LABS: Lactic Acid 1.5 mmol/L (0.4-1.9)
--- NOTE | 2021-12-28 10:16 | CON.PCM.SX_ITS ---
Assessment & Plan Assessment/Plan (1) Acute pancreatitis: QUALIFIERS: Pancreatitis type: unspecified pancreatitis type Acute pancreatitis complication: unspecified Qualified Code(s): K85.90 - Acute pancreatitis without necrosis or infection, unspecified PLAN: I think that there is some significant inflammatory changes going on with the head and body of the pancreas. Given the fact that the CT scan did not have any IV contrast it is difficult to ascertain if there is an infectious or necrotic process going on. Does not appear that he has had any new change in his medications that might have caused this. The present time conservative management is recommended. HPI Consult Data Date of Consult: 12/28/21 HPI Narrative HPI Narrative: KRISSY SAAVEDRA, The patient is a 66-year-old male, with a history as outlined below, who presented to the emergency department via EMS on December 27 with dizziness and lightheadedness. He also reported mild abdominal discomfort and constipation. The patient is currently followed by Dr. Tucker of nephrology due to a history of chronic kidney disease stage IV. The patient is also followed by Dr. Oliver of oncology due to a history of renal cell cancer, diagnosed in 2010, status post left radical nephrectomy in October 2010. In 2018, the patient was noted to have recurrence of his renal cell carcinoma in the right kidney with metastasis to the lung. He was subsequently started on nivolumab and Ipilimumab. 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 According to the patient's oncologist last note, his CT scan from September 2021 showed stable disease with no evidence of progression. His immunotherapy, which included Keytruda and Axitinib was placed on hold due to renal dysfunction. 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 Surface echocardiogram dated December 03 demonstrated normal LV size and function with an ejection fraction of 55%. On presentation to the emergency department, the patient was noted to be afebrile and hemodynamically stable. He was initially documented to be saturating 96% on room air. Laboratory evaluation revealed a hemoglobin of 8.0 g/dL, down 2 g from 3 months earlier. Platelet count was stable. Coagulation profile revealed an INR of 2.6. Chemistry profile was notable for a creatinine of 3.8. BNP was elevated at 703. Lipase was elevated at 1182. Urine analysis was unremarkable. CT abdomen/pelvis was obtained. There was evidence of pulmonary edema and bilateral pleural effusions. There was fatty infiltration of the liver with nodular border suggesting cirrhosis. Suspicious nodular densities were noted in the mid body and tail of the pancreas. Although the patient was initially admitted to the progressive care unit, he was given IV opiate pain medications, which apparently led to the development of hypotension and the transient need for vasopressor support. Accordingly, he was transferred to the ICU for supportive care. However, as of this morning, the patient has been weaned from Levophed and remains hemodynamically stable. Prior to coming to the hospital he had been complaining of some abdominal pain for about 3 days. The pain was located in the back as well. In reviewing the CAT scans over the last several months there has been a significant change in the imaging of the pancreas. As well as elevation in his lipase. [facility] Medical History Abnormal CT of the abdomen Anemia Atrial fibrillation with rapid ventricular response (07/04/19) Bilateral pulmonary embolism (11/19/14) Chronic diastolic (congestive) heart failure Deep vein thrombosis of right lower extremity (11/19/14) Encounter for education Essential (primary) hypertension Gout Hypothyroidism Metastatic 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 Obesity Pancreatic mass Paroxysmal atrial fibrillation Pneumonitis Renal cell cancer Type 2 diabetes mellitus Viral URI Home Medications tamsulosin 0.4 mg PO BID 11/09/14 [History Last Taken 08/05/19] allopurinol 100 mg PO DAILYCM 05/03/15 [History Last Taken 08/05/19] finasteride 5 mg PO DAILY 05/03/15 [History Last Taken 08/05/19] pantoprazole 40 mg tablet,delayed release 40 mg PO DAILY #90 tab 02/02/20 [Rx Last Taken Unknown] rivaroxaban 20 mg tablet 20 mg PO DAILY 04/17/21 [History Last Taken Unknown] glipizide 5 mg tablet 1.25 mg PO PRN PRN tab 07/10/21 [History Last Taken Unknown] levothyroxine 100 mcg tablet 100 mcg PO DAILY 30 Days #30 tablet 09/16/21 [Rx Last Taken Unknown] clonidine HCl 0.1 mg tablet 0.1 mg PO BID 09/25/21 [History Last Taken Unknown] diltiazem HCl 120 mg capsule,extended release 24 hr 120 mg PO BID #180 cap 11/07/21 [Rx Last Taken Unknown] metoprolol tartrate 100 mg tablet 100 mg PO BID #180 tab 11/07/21 [Rx Last Taken Unknown] furosemide 40 mg tablet 40 mg PO DAILY #90 tab 12/24/21 [Rx Last Taken Unknown] Allergy/AdvReac Type Severity Reaction Status Date / Time Penicillins [PCN] Allergy PT UNSURE Verified 10/08/21 15:33 OF REACTION Family History Mother Diabetes Heart disease Kidney disease Hypertension CVA (cerebral vascular accident) Father Heart disease Surgical History History of colonoscopy (2018) History of left nephrectomy (2010) History of total hip arthroplasty (04/2015) Social History Smoking Status: Never smoker second hand exposure: No alcohol intake: never substance use type: does not use caffeine: Yes frequency: does not exercise ROS Constitutional Constitutional: Denies chills, fever(s) or headache(s) Cardiovascular Cardiovascular: Reports dizziness; Denies chest pain Respiratory/Chest Respiratory/Chest: Reports chest tightness Gastrointestinal Gastrointestinal: Reports abdominal pain; Denies nausea or vomiting Physical Exam Const alert and oriented x3 General Appearance: cooperative Nutritional Appearance: obese morbidly obese HEENT normocephalic and head/scalp atraumatic Eyes PERRL and EOMs intact bilaterally Resp clear to auscultation bilaterally Cardio Rate: regular rate Rhythm: regular rhythm GI soft to palpation GI Narrative: Patient is tender diffusely but no rebound guarding or peritoneal signs are identified Palpation: tender Lab / Micro Data Result Diagrams: 12/28/21 08:45 12/28/21 03:40 Labs: Laboratory Results - last 24 hr 12/27/21 06:50: Phosphorus 4.5, Magnesium 1.8 12/27/21 15:15: PT 27.9 H, INR 2.6 12/27/21 17:09: POC Glucose 153 H 12/27/21 21:36: POC Glucose 168 H 12/28/21 03:40: WBC 11.1 H, RBC 2.30 L, Hgb 6.2 L, Hct 20.5 L, MCV 89.1, MCH 27.0, MCHC 30.2 L, RDW Std Deviation 53.6 H, RDW Coeff of Shanell 16.6 H, Plt Count 241, MPV 10.0, Immature Gran % (Auto) 0.600, Neut % (Auto) 83.1 H, Lymph % (Auto) 7.1 L, [place] % (Auto) 8.9, Eos % (Auto) 0.0, Baso % (Auto) 0.3, Absolute Neuts (auto) 9.2 H, Absolute Lymphs (auto) 0.79 L, Nucleated RBC % 0 12/28/21 03:40: Sodium 138, Potassium 4.7, Chloride 105, Carbon Dioxide 21.0, Anion Gap 12, BUN 74 H, Creatinine 5.25 H, Estim Creat Clear Calc 14.54, Est GFR (MDRD) Af Amer 14 L, Est GFR (MDRD) Non-Af 12 L, BUN/Creatinine Ratio 14.1, Glucose 177 H, Calcium 8.3 L, Triglycerides 152, Cholesterol 122, LDL Cholesterol 56, VLDL Cholesterol 30, HDL Cholesterol 36 L, TSH 4.53 H 12/28/21 08:45: Hgb 6.0 L*, Hct 20.3 L, Retic Count 3.74 H, Immature Retic Fraction 36.70 H, Retic Hgb Equivalent 24.6 L 12/28/21 08:45: PT 24.8 H, INR 2.3 12/28/21 08:45: Total Bilirubin 0.60, Direct Bilirubin 0.21, AST 8 L, ALT 9 L, Alkaline Phosphatase 49, Lactate Dehydrogenase 133, Total Protein 5.9 L, Albumin 2.6 L, Globulin 3.3, Free T4 1.23 12/28/21 08:47: POC Glucose 160 H 12/28/21 09:25: Lactic Acid 1.5 Micro: Microbiology 12/27/21 09:35 Stool Stool Occult Blood ([facility]) - Final
[2021-12-28] MEDS: Acetaminophen 325 MG Tablet 650 MG PO (10:20)
[2021-12-28] MEDS: Polyethylene Glycol 3350 17 GM PACKET PO (10:21)
[2021-12-28] MEDS: Finasteride 5 MG Tablet PO (10:21)
[2021-12-28] MEDS: Tamsulosin HCl 0.4 MG Capsule PO ×2 (10:22→21:31)
[2021-12-28] MEDS: Senna/Docusate Sodium 1 Tablet 2 TABLET PO ×2 (10:22→21:31)
[2021-12-28 11:51] LABS: Bedside Glucose 165 mg/dL (74-106)
[2021-12-28] MEDS: Midodrine HCl 5 MG Tablet 10 MG PO (11:56)
--- NOTE | 2021-12-28 13:40 | EKG12_ITS ---
Test Reason : RHYTHM CHANGE Blood Pressure : / mmHG Vent. Rate : 130 BPM Atrial Rate : 130 BPM P-R Int : 264 ms QRS Dur : 100 ms QT Int : 342 ms P-R-T Axes : 054 010 101 degrees QTc Int : 503 ms Sinus tachycardia with 1st degree A-V block Nonspecific ST and T wave abnormality Abnormal ECG When compared with ECG of 28-DEC-2021 15:27, MANUAL COMPARISON REQUIRED, DATA IS UNCONFIRMED Confirmed by ZARA BUSBY, GREG ([id number]), film and video editor DEMETRI SMITH ([id number]) on 12/30/2021 1:12:00 PM Referred By: MARICHUY Confirmed By:GREG ZUÑIGA MD
[2021-12-28] MEDS: Metoprolol Tartrate 5 MG/5 ML Vial IV ×2 (14:44→15:07)
[2021-12-28] MEDS: Furosemide 40 MG/4 ML Vial IV (14:45)
[2021-12-28] MEDS: proCHLORPERazine 10 MG/2 ML Vial IV (14:45)
[2021-12-28] MEDS: 0.9% Saline Lock 10 ML Syringe IV (14:45)
--- NOTE | 2021-12-28 15:37 | EKG12_ITS ---
Test Reason : Blood Pressure : / mmHG Vent. Rate : 087 BPM Atrial Rate : 087 BPM P-R Int : 144 ms QRS Dur : 100 ms QT Int : 408 ms P-R-T Axes : 041 011 047 degrees QTc Int : 490 ms Normal sinus rhythm Prolonged QT Abnormal ECG When compared with ECG of 28-DEC-2021 13:53, MANUAL COMPARISON REQUIRED, DATA IS UNCONFIRMED Confirmed by ZARA BUSBY, GREG ([id number]), editor at large DEMETRI SMITH ([id number]) on 12/30/2021 1:12:11 PM Referred By: RINA Confirmed By:GREG ZUÑIGA MD
[2021-12-28] MEDS: Rivaroxaban 20 MG Tablet PO (17:13)
[2021-12-28] MEDS: Metoprolol Tartrate 100 MG Tablet PO ×2 (17:13→21:30)
[2021-12-28 17:30] LABS: Bedside Glucose 147 mg/dL (74-106)
[2021-12-29] VITALS (20 sets, daily range): BP systolic 131–166; BP diastolic 58–99; PULSE 86–139; RESP 19–34; TEMP 35.9–36.6; O2SAT 94–98
[2021-12-29] MEDS: Acetaminophen 325 MG Tablet 650 MG PO (00:34)
[2021-12-29 01:30] LABS: Bedside Glucose 151 mg/dL (74-106)
--- NOTE | 2021-12-29 04:56 | EKG12_ITS ---
Test Reason : Blood Pressure : / mmHG Vent. Rate : 129 BPM Atrial Rate : 119 BPM P-R Int : 000 ms QRS Dur : 098 ms QT Int : 344 ms P-R-T Axes : 000 004 112 degrees QTc Int : 503 ms Atrial fibrillation Nonspecific ST and T wave abnormality Abnormal ECG When compared with ECG of 27-DEC-2021 06:50, MANUAL COMPARISON REQUIRED, DATA IS UNCONFIRMED Confirmed by ZARA BUSBY, GREG ([id number]), state editor DEMETRI SMITH ([id number]) on 12/30/2021 1:12:48 PM Referred By: RINA Confirmed By:GREG ZUÑIGA MD
[2021-12-29] MEDS: Levothyroxine 100 MCG Tablet PO (05:23)
[2021-12-29] MEDS: Metoprolol Tartrate 100 MG Tablet PO ×2 (05:24→21:47)
[2021-12-29 06:35] LABS: Absolute Lymphocyte Count 0.63 X10^3/uL (0.83-4.51); Absolute Neutrophil Count 11.8 X10^3/uL (2.0-7.7); Basophil# 0.03 X10^3/uL; Basophil% 0.2 % (0-1); Eosinophil# 0.03 X10^3/uL; Eosinophils% 0.2 % (0-5); Hematocrit 22.3 % (40-54); Hemoglobin 6.5 g/dL (13.0-16.5); Lymphocyte # 0.63 X10^3/ul (0.83-4.51); Lymphocyte % 4.6 % (19-41); Mean Corp Hgb Conc 29.1 g/dL (32-36); Mean Corpuscular Hgb 26.4 pg (27.0-32.0); Mean Corpuscular Volume 90.7 fL (80-94); Mean Platelet Vol. 9.6 fl (6.2-12.0); Monocyte# 1.05 X10^3/uL; Monocyte% 7.7 % (0-10); NRBC Flagged by Analyzer 0 % (0-5); Neutrophil # 11.82 X10^3/uL (2.7-7.7); Neutrophil % 86.7 % (47-70); Platelet Count 231 K/mm3 (150-450); RBC Distribution Width CV 16.2 % (11.6-14.6); Red Blood Count 2.46 M/mm3 (4.6-6.2); White Blood Count 13.6 K/mm3 (4.4-11.0)
[2021-12-29 06:46] LABS: ALB/GLOB Ratio 0.8 RATIO (0.9-2.4); AST(SGOT) 10 U/L (15-37); Alanine Aminotransfer ALT/SGPT 10 U/L (16-61); Albumin, Serum 2.6 g/dL (3.2-5.0); Alkaline Phosphatase 50 U/L (45-117); Anion Gap 12 (5-15); BUN 87 mg/dL (7-18); BUN/Creat Ratio 14.5 RATIO (10-20); Calcium,Total 8.1 mg/dL (8.5-10.1); Chloride 105 mmol/L (98-107); Creatinine, Serum 6.01 mg/dL (0.70-1.30); EST Glomerular Filtration Rate 10 mL/min (>60); Est Glom Filt Rate - Afr Amer 12 mL/min (>60); Globulin 3.4 g/dL (2.2-4.2); Glucose 170 mg/dL (74-106); Potassium 4.8 mmol/L (3.5-5.1); Sodium Level 136 mmol/L (136-145)
--- NOTE | 2021-12-29 07:13 | PN.SURG_ITS ---
Subjective Subjective Patient states that his abdomen feels slightly better than yesterday not significantly though. Objective Data Objective Data Remains diffusely tender but no rebound guarding or peritoneal signs. Vital Signs: Vital Signs Temp Pulse Resp BP Pulse Ox 97.9 F 139 H 20 H 140/69 H 94 12/29/21 04:30 12/29/21 05:24 12/29/21 04:30 12/29/21 05:24 12/29/21 04:30 Oxygen Flow Rate (L/min) 2 Oxygen Delivery Method Nasal Cannula Weight: 301 lb 9.478 oz Body Mass Index (BMI) 40.8 Intake & Output: Intake and Output for Last 24 Hours 12/27/21 12/28/21 12/29/21 23:59 23:59 23:59 Intake Total 654.83 / 657.66 571.11 / 571.11 Output Total 0 / 190 240 / 240 Balance 654.83 / 657.66 571.11 / 381.11 -240 / -240 Lab / Micro Data Result Diagrams: 12/29/21 05:51 12/29/21 05:51 Labs: Laboratory Results - last 24 hr 12/28/21 08:45: Hgb 6.0 L*, Hct 20.3 L, Retic Count 3.74 H, Immature Retic Fraction 36.70 H, Retic Hgb Equivalent 24.6 L 12/28/21 08:45: PT 24.8 H, INR 2.3 12/28/21 08:45: Total Bilirubin 0.60, Direct Bilirubin 0.21, AST 8 L, ALT 9 L, Alkaline Phosphatase 49, Lactate Dehydrogenase 133, Total Protein 5.9 L, Albumin 2.6 L, Globulin 3.3, Free T4 1.23 12/28/21 08:47: POC Glucose 160 H 12/28/21 09:25: Blood Type A POSITIVE, Antibody Screen NEGATIVE 12/28/21 09:25: Lactic Acid 1.5 12/28/21 09:25: Crossmatch See Detail 12/28/21 11:46: POC Glucose 165 H 12/28/21 17:20: POC Glucose 147 H 12/28/21 21:35: POC Glucose 151 H 12/29/21 05:51: Sodium 136, Potassium 4.8, Chloride 105, Carbon Dioxide 19.0 L, Anion Gap 12, BUN 87 H, Creatinine 6.01 H, Estim Creat Clear Calc 12.70, Est GFR (MDRD) Af Amer 12 L, Est GFR (MDRD) Non-Af 10 L, BUN/Creatinine Ratio 14.5, Glucose 170 H, Calcium 8.1 L, Total Bilirubin 0.80, AST 10 L, ALT 10 L, Alkaline Phosphatase 50, Total Protein 6.0 L, Albumin 2.6 L, Globulin 3.4, Albumin/Globulin Ratio 0.8 L 12/29/21 05:51: WBC 13.6 H, RBC 2.46 L, Hgb 6.5 L, Hct 22.3 L, MCV 90.7, MCH 26.4 L, MCHC 29.1 L, RDW Std Deviation 53.0 H, RDW Coeff of Shanell 16.2 H, Plt Count 231, MPV 9.6, Immature Gran % (Auto) 0.600, Neut % (Auto) 86.7 H, Lymph % (Auto) 4.6 L, [place] % (Auto) 7.7, Eos % (Auto) 0.2, Baso % (Auto) 0.2, Absolute Neuts (auto) 11.8 H, Absolute Lymphs (auto) 0.63 L, Nucleated RBC % 0 Micro: Microbiology 12/27/21 09:35 Stool Stool Occult Blood ([facility]) - Final Radiography Diagnostic Testing: Radiology Impression Venous Doppler Study 12/27/21 16:46 Interpretation Summary Technically difficult examination. Unable to image bilateral proximal to mid calf veins secondary to patient body habitus. Only partial compressibility of the right tibioperoneal trunk with bright internal echoes suggesting chronic deep venous thrombosis. Cannot exclude an acute component. No evidence for acute deep venous thrombosis left lower extremity Patent and compressible bilateral great saphenous veins Ordering Physician: Beck Simms Referring Physician: Houston Olson Performed By: Inga Lin, RDCS, RVT Assessment & Plan Assessment/Plan (1) Acute pancreatitis: QUALIFIERS: Pancreatitis type: unspecified pancreatitis type Acute pancreatitis complication: unspecified Qualified Code(s): K85.90 - Acute pancreatitis without necrosis or infection, unspecified PLAN: Patient is significantly tachycardic this morning. Medicine is aware. No surgical intervention is planned for him at this time.
--- NOTE | 2021-12-29 07:39 | PN.CC_ITS ---
Assessment & Plan Assessment/Plan (1) Anemia: QUALIFIERS: Anemia type: unspecified type Qualified Code(s): D64.9 - Anemia, unspecified (2) Acute kidney injury superimposed on CKD: (3) Near syncope: PLAN: RECOMMENDATIONS: 1. Transfuse additional blood products as ordered. Check H&H posttransfusion. 2. Hold Xarelto. 3. If the patient continues to have an ongoing contraindication to his Xarelto, would need to consider IVC filter placement. 4. Continue PPI therapy. 5. Gentle IV fluid hydration. 6. Ongoing goals of care discussions with the patient and family. IMPRESSIONS: 1. Hypotension The patient was initially transferred to the ICU for management of his hypotension, which developed after receiving a large dose of IV opiate pain med ication. This likely precipitated his hemodynamic instability. While the patient was transiently on Levophed, he has been weaned from vasopressor support and remains hemodynamically stable. 2. Acute pancreatitis Potentially related to PD-L1 inhibitor therapy. The offending medications were already previously discontinued. General surgery has already evaluated the pa tient. Although there was noted on CT imaging of new nodular densities in the mid body and tail of the pancreas, oncology feels that this is unlikely to represent metastatic disease. Nevertheless, a biopsy would ultimately be required to confirm this suspicion. For now, I would recommend continuing supportive measures including IV fluids. Recheck lipase level this morning. 3. Acute on chronic kidney disease Likely prerenal in etiology/ischemic ATN. Nephrology is currently following. Avoid nephrotoxic medications and maintain hemodynamic stability. Avoid diure tics for now. 4. Anemia The patient presented with worsening anemia and a hemoglobin that is less than 7 g/dL. Accordingly, I recommend transfusion of blood products. In light of the findings noted on CT abdomen, including induration surrounding the tail of the pancreas, which could be related to inflammation or hemorrhage, general surgery was consulted for medical input. Additionally, the patient has been maintained on Xarelto as an outpatient due to a history of recurrent VTE. Nevertheless, I would recommend that he do Xarelto be placed on hold for now. Check H&H posttransfusion. Continue PPI therapy. 5. Generalized weakness with near syncope Potentially related to intravascular volume depletion and worsening anemia. The patient's hemodynamic status has stabilized. He is without any further vasopressor requirement. Continue to monitor clinically. 6. Metastatic renal cell carcinoma/paroxysmal atrial fibrillation/history of VTE/history of heart failure with preserved ejection fraction Complicates care, management, recovery and prognosis. Recommend holding Xarelto in light of worsening anemia. Given that the patient appears to have chronic lower extremity DVTs, if the patient's anemia remains an ongoing issue, the patient may need to be considered for an IVC filter. This note was generated with [employer] dictation software. It may contain incorrect words, spelling, and punctuation that were not noted in checking the note before signing. Subjective Subjective The patient was seen and examined at the bedside this morning. Events from the last 24 hours have been reviewed. The patient is currently afebrile, hemodynamically stable and maintaining appropriate oxygen saturations on 2 L/min via nasal cannula. The patient is currently documented to be overall net +1 L for the hospitalization. The patient was transfused 1 unit of packed red blood cells. Hemoglobin this morning was noted to be 6.5 g/dL. Creatinine has increased to 6.01. Repeat lipase is pending this morning. The patient continues to have abdominal pain. Objective Data Objective Data The patient's most recent lab work, culture data and imaging studies have all been personally reviewed. Lower extremity Doppler study suggested chronic deep vein thrombosis in the right lower extremity. Surface echocardiogram from November 2021 demonstrated normal LV size and function with an ejection fraction of 55%. Stool occult blood was negative. Blood and urine cultures are pending. Vital Signs: Vital Signs Temp Pulse Resp BP Pulse Ox 97.9 F 139 H 20 H 140/69 H 94 12/29/21 04:30 12/29/21 05:24 12/29/21 04:30 12/29/21 05:24 12/29/21 04:30 Oxygen Flow Rate (L/min) 2 Oxygen Delivery Method Nasal Cannula Weight: 136.8 kg Body Mass Index (BMI) 40.8 Intake & Output: Intake and Output for Last 24 Hours 12/27/21 12/28/21 12/29/21 23:59 23:59 23:59 Intake Total 654.83 / 657.66 571.11 / 571.11 Output Total 0 / 190 240 / 240 Balance 654.83 / 657.66 571.11 / 381.11 -240 / -240 Lab / Micro Data Attestation: I reviewed the patient's lab results. Result Diagrams: 12/29/21 05:51 12/29/21 05:51 Labs: Laboratory Results - last 24 hr 12/28/21 08:45: Hgb 6.0 L*, Hct 20.3 L, Retic Count 3.74 H, Immature Retic Fraction 36.70 H, Retic Hgb Equivalent 24.6 L 12/28/21 08:45: PT 24.8 H, INR 2.3 12/28/21 08:45: Total Bilirubin 0.60, Direct Bilirubin 0.21, AST 8 L, ALT 9 L, Alkaline Phosphatase 49, Lactate Dehydrogenase 133, Total Protein 5.9 L, Albumin 2.6 L, Globulin 3.3, Free T4 1.23 12/28/21 08:47: POC Glucose 160 H 12/28/21 09:25: Blood Type A POSITIVE, Antibody Screen NEGATIVE 12/28/21 09:25: Lactic Acid 1.5 12/28/21 09:25: Crossmatch See Detail 12/28/21 11:46: POC Glucose 165 H 12/28/21 17:20: POC Glucose 147 H 12/28/21 21:35: POC Glucose 151 H 12/29/21 05:51: Sodium 136, Potassium 4.8, Chloride 105, Carbon Dioxide 19.0 L, Anion Gap 12, BUN 87 H, Creatinine 6.01 H, Estim Creat Clear Calc 12.70, Est GFR (MDRD) Af Amer 12 L, Est GFR (MDRD) Non-Af 10 L, BUN/Creatinine Ratio 14.5, Gluc ose 170 H, Calcium 8.1 L, Total Bilirubin 0.80, AST 10 L, ALT 10 L, Alkaline Phosphatase 50, Total Protein 6.0 L, Albumin 2.6 L, Globulin 3.4, Albumin/Globulin Ratio 0.8 L 12/29/21 05:51: WBC 13.6 H, RBC 2.46 L, Hgb 6.5 L, Hct 22.3 L, MCV 90.7, MCH 26.4 L, MCHC 29.1 L, RDW Std Deviation 53.0 H, RDW Coeff of Shanell 16.2 H, Plt Count 231, MPV 9.6, Immature Gran % (Auto) 0.600, Neut % (Auto) 86.7 H, Lymph % (Auto) 4.6 L, [place] % (Auto) 7.7, Eos % (Auto) 0.2, Baso % (Auto) 0.2, Absolute Neuts (auto) 11.8 H, Absolute Lymphs (auto) 0.63 L, Nucleated RBC % 0 Micro: Microbiology 12/27/21 09:35 Stool Stool Occult Blood ([facility]) - Final Radiography Diagnostic Testing: Radiology Impression Venous Doppler Study 12/27/21 16:46 Interpretation Summary Technically difficult examination. Unable to image bilateral proximal to mid calf veins secondary to patient body habitus. Only partial compressibility of the right tibioperoneal trunk with bright internal echoes suggesting chronic deep venous thrombosis. Cannot exclude an acute component. No evidence for acute deep venous thrombosis left lower extremity Patent and compressible bilateral great saphenous veins _ Ordering Physician: Beck Simms Referring Physician: Houston Olson Performed By: Inga Lin, JOCELYN, RVT Physical Exam Const alert and oriented x3 General Appearance: cooperative Nutritional Appearance: morbidly obese HEENT normocephalic, head/scalp atraumatic and moist oral mucous membranes Eyes PERRL, EOMs intact bilaterally and conjunctivae normal Neck supple General: trachea midline Chest inspection of chest normal Resp Auscultation: diminished lung sounds; Negative for rales, rhonchi or wheezes Cardio S1 normal heart sound and S2 normal heart sound Rate: tachycardic GI GI Narrative: Nonfocal tenderness to palpation. Inspection: Negative for abdominal distention Palpation: tender Extremity General Extremity: edema bilateral lower extremity; Negative for clubbing Skin no rashes or lesions noted Neuro CN's II-XII intact bilaterally, moves all extremities and no focal motor deficits Psych cooperative and affect normal Charges/Coding Visit Charges Inpatient E&M: 42127 Subs Hosp L3
[2021-12-29] MEDS: Finasteride 5 MG Tablet PO (08:05)
[2021-12-29] MEDS: Senna/Docusate Sodium 1 Tablet 2 TABLET PO ×2 (08:05→21:49)
[2021-12-29] MEDS: Allopurinol 100 MG Tablet PO (08:05)
[2021-12-29] MEDS: Polyethylene Glycol 3350 17 GM PACKET PO (08:05)
[2021-12-29] MEDS: Tamsulosin HCl 0.4 MG Capsule PO ×2 (08:05→21:48)
[2021-12-29 08:09] LABS: Lipase 106 U/L (73-393)
[2021-12-29] MEDS: Insulin Lispro 100 UNIT/ML INSULN.PEN SC (08:13)
[2021-12-29] MEDS: Lactated Ringers 1,000 ML 125 ML IV ×2 (08:18→19:50)
[2021-12-29 08:30] LABS: Bedside Glucose 176 mg/dL (74-106)
--- NOTE | 2021-12-29 09:30 | PN.HOSP_ITS ---
Subjective Subjective Has had some abdominal pain. Objective Data Objective Data Vital Signs: Vital Signs Temp Pulse Resp BP Pulse Ox 36.4 C L 96 20 H 142/67 H 95 12/29/21 08:24 12/29/21 08:24 12/29/21 08:24 12/29/21 08:24 12/29/21 08:47 Oxygen Flow Rate (L/min) 2 Oxygen Delivery Method Nasal Cannula Weight: 136.8 kg Body Mass Index (BMI) 40.8 Intake & Output: Intake and Output for Last 24 Hours 12/27/21 12/28/21 12/29/21 23:59 23:59 23:59 Intake Total 654.83 / 657.66 571.11 / 571.11 Output Total 0 / 190 240 / 240 Balance 654.83 / 657.66 571.11 / 381.11 -240 / -240 Lab / Micro Data Result Diagrams: 12/29/21 05:51 12/29/21 05:51 Labs: Laboratory Results - last 24 hr 12/28/21 09:25: Blood Type A POSITIVE, Antibody Screen NEGATIVE 12/28/21 09:25: Lactic Acid 1.5 12/28/21 09:25: Crossmatch See Detail 12/28/21 11:46: POC Glucose 165 H 12/28/21 17:20: POC Glucose 147 H 12/28/21 21:35: POC Glucose 151 H 12/29/21 05:51: Sodium 136, Potassium 4.8, Chloride 105, Carbon Dioxide 19.0 L, Anion Gap 12, BUN 87 H, Creatinine 6.01 H, Estim Creat Clear Calc 12.70, Est GFR (MDRD) Af Amer 12 L, Est GFR (MDRD) Non-Af 10 L, BUN/Creatinine Ratio 14.5, Glucose 170 H, Calcium 8.1 L, Total Bilirubin 0.80, AST 10 L, ALT 10 L, Alkaline Phosphatase 50, Total Protein 6.0 L, Albumin 2.6 L, Globulin 3.4, Albumin/Globulin Ratio 0.8 L 12/29/21 05:51: WBC 13.6 H, RBC 2.46 L, Hgb 6.5 L, Hct 22.3 L, MCV 90.7, MCH 26. 4 L, MCHC 29.1 L, RDW Std Deviation 53.0 H, RDW Coeff of Shanell 16.2 H, Plt Count 231, MPV 9.6, Immature Gran % (Auto) 0.600, Neut % (Auto) 86.7 H, Lymph % (Auto) 4.6 L, [place] % (Auto) 7.7, Eos % (Auto) 0.2, Baso % (Auto) 0.2, Absolute Neuts (auto) 11.8 H, Absolute Lymphs (auto) 0.63 L, Nucleated RBC % 0 12/29/21 05:51: Lipase 106 12/29/21 08:01: POC Glucose 176 H Micro: Microbiology 12/27/21 09:35 Stool Stool Occult Blood ([facility]) - Final Radiography Diagnostic Testing: Radiology Impression Venous Doppler Study 12/27/21 16:46 Interpretation Summary Technically difficult examination. Unable to image bilateral proximal to mid calf veins secondary to patient body habitus. Only partial compressibility of the right tibioperoneal trunk with bright inter nal echoes suggesting chronic deep venous thrombosis. Cannot exclude an acute component. No evidence for acute deep venous thrombosis left lower extremity Patent and compressible bilateral great saphenous veins Ordering Physician: Beck Simms Referring Physician: Houston Olson Performed By: Inga Lin, JOCELYN, RVT Physical Exam Const alert and no apparent distress Resp normal respiratory effort, no retractions, no use of accessory muscles and clear to auscultation bilaterally Cardio regular rate, regular rhythm, S1 normal heart sound and S2 normal heart sound GI normal to inspection, nondistended, normoactive bowel sounds, soft to palpation and non-tender Extremity General Extremity: edema Psych affect normal Assessment & Plan Assessment/Plan (1) Near syncope: (2) Acute kidney injury superimposed on CKD: PLAN: This 66-year-old gentleman admitted with generalized weakness, near fall near syncope with progressive worsening of shortness of breath, oliguria, declining of his functional capacity. 1. Near syncope/near fall * probably due to declining physical capacity: Patient stated that he felt dizzy lightheaded but his son caught him therefore he did not fall. No loss of consciousness. * Twelve-lead EKG is normal sinus rhythm troponin normal. Patient had recent echo on 12/03/2021 reported EF 55%, diastolic dysfunction LV systolic function normal, study technically study. * 12/28 hypotension: Hypotension has resolved. Patient required transient IV norepinephrine in the ICU. Hemodynamically better, transferred to PCU. Discussed with plastering contractor near syncope dizziness has resolved. 2. Acute kidney injury on CKD stage IV, * per nephrology: suspected due to shock/ATN * single right kidney: Patient follows Dr. Tucker. His present BUN/creatinine 59/3.8, estimated creatinine clearance 20 mill per minute. Last creatinine 3.39 on 11/05, 3.14 on 09/25, gradually worsening. * As per ER physician, he also had vein mapping for anticipation of hemodialysis in the future. Strapper consulted. * 12/28: No urine output. Strapper follow-up. Increase in creatinine to 5.25. * 12/29: creatinine 6. DW Dr. Tucker, plan to monitor overnight and if continues to worsen, then plan for HD, unless he opts for hospice (seem unlikely he would opt for hospice) 3. right renal cell cancer stage IV * status post left nephrectomy 2011: In 2019, CT scan showed right renal mass thereafter biopsy reported renal cell carcinoma as per the CT abdomen and pelvis patient has bilateral pulmonary nodules, cirrhotic liver with perihepatic ascites, and paracolic gutter, and pancreatic mets. Patient also has bilateral effusion, with bibasilar atelectasis, right worse than the left. I * In 2019 he was started on nivolumab and ipilimumab. Thereafter he developed pneumonitis and paroxysmal A. fib in 2019, converted on medical therapy. Patient also had immunotherapy axitinib, pembrolizumab which was held due to elevated creatinine. As mentioned in HPI, he was taken off prednisone in mid September because of increased swelling/retention of fluid * 12/29: DW Rhonda Rojas. Pulmonary lesions appear stable. Cannot determine if pancreatic lesions are metastatic deposits or not. 4. Acute pancreatitis with pancreatic mass on CT scan 12/28: * Diffuse abdominal pain with tenderness. Lipase 1182.LDH normal general surgery Dr. Cuello consulted. After review of CT scan although limited because contrast cannot be given, seems pancreatitis. Conservative management with n.p.o. except medications. * may be 2/2 PD-L1 inhibitory therapy * would need eventual biopsy of pancreatic masses to confirm malignancy 5. Acute on chronic diastolic heart failure, paroxysmal A. fib, bilateral PE in 2015: * As per CT patient enlarging pleural effusion with increased interstitial edema. BNP high 793. Started on Lasix 40 mill IV twice daily now and then Lasix drip as patient blood pressure is on lower side probably will not tolerate pulse diuretic. Continue metoprolol, and diltiazem CD with holding parameter. * 12/28: 1 dose Lasix as patient is short of breath and tachypneic. Lipid profile reviewed 6: Intermittent tachypnea and shortness of breath: Lasix 40 mg IV given. Midodrine 10 mg 3 times daily started patient has features of decompensated cirrhosis. 7. multiple chronic comorbidities include bilateral pulmonary embolism, hypertension, hypothyroidism, immunotherapy induced pneumonitis, right lower extremity DVT: Multiple comorbidities complicates the present care and expect difficult and delay recovery TSH 4.53, free T4 normal: Probably euthyroid sick syndrome 8. Acute blood loss anemia * transfuse to goal of 7 * s/p [address] Simms spoke to the patient's sons, Mr. Turner and Mr. Anthony Wright and [id number] and narrated about poor prognosis in view of stage IV RCC with wide metastasis, decompensated heart failure, acute kidney injury and CKD stage IV, abdominal pain possible pancreatitis. We also discussed the option of hosp ice but family member are discussing him on themselves and advised to let us know. DW family. Greater than 45 minutes of which greater than 50% of time was discussing with specialist, with Dr. Tucker about dialysis and Rhonda Rojas in regards to his cancer. Charges/Coding Visit Charges Inpatient E&M: 93152 Subs Hosp L3
--- NOTE | 2021-12-29 10:29 | PN.RENAL_ITS ---
Subjective Subjective rising creatinine with oliguria. Dyspnea with minimal exertion in bed, turning. Denied nausea, dry heaves. Abdominal pain improving. Still with bilateral lower quadrant discomfort. Started on iv fluids. Tachyarrhythmia improved with amiodarone. BP better, transferred out of ICU. Resume diltiazem today. Objective Data Objective Data Vital Signs: Vital Signs Temp Pulse Resp BP Pulse Ox 97.6 F L 96 20 H 142/67 H 95 12/29/21 08:24 12/29/21 08:24 12/29/21 08:24 12/29/21 08:24 12/29/21 08:47 Oxygen Flow Rate (L/min) 2 Oxygen Delivery Method Nasal Cannula Weight: 136.8 kg Body Mass Index (BMI) 40.8 Intake & Output: Intake and Output for Last 24 Hours 12/27/21 12/28/21 12/29/21 23:59 23:59 23:59 Intake Total 654.83 / 657.66 571.11 / 571.11 Output Total 0 / 190 240 / 240 Balance 654.83 / 657.66 571.11 / 381.11 -240 / -240 Lab / Micro Data Result Diagrams: 12/29/21 05:51 12/29/21 05:51 Labs: Laboratory Results - last 24 hr 12/28/21 09:25: Blood Type A POSITIVE, Antibody Screen NEGATIVE 12/28/21 09:25: Crossmatch See Detail 12/28/21 09:25: Crossmatch See Detail 12/28/21 11:46: POC Glucose 165 H 12/28/21 17:20: POC Glucose 147 H 12/28/21 21:35: POC Glucose 151 H 12/29/21 05:51: Sodium 136, Potassium 4.8, Chloride 105, Carbon Dioxide 19.0 L, Anion Gap 12, BUN 87 H, Creatinine 6.01 H, Estim Creat Clear Calc 12.70, Est GFR (MDRD) Af Amer 12 L, Est GFR (MDRD) Non-Af 10 L, BUN/Creatinine Ratio 14.5, Glucose 170 H, Calcium 8.1 L, Total Bilirubin 0.80, AST 10 L, ALT 10 L, Alkaline Phosphatase 50, Total Protein 6.0 L, Albumin 2.6 L, Globulin 3.4, Albumin/Globulin Ratio 0.8 L 12/29/21 05:51: WBC 13.6 H, RBC 2.46 L, Hgb 6.5 L, Hct 22.3 L, MCV 90.7, MCH 26.4 L, MCHC 29.1 L, RDW Std Deviation 53.0 H, RDW Coeff of Shanell 16.2 H, Plt Count 231, MPV 9.6, Immature Gran % (Auto) 0.600, Neut % (Auto) 86.7 H, Lymph % (Auto) 4.6 L, [place] % (Auto) 7.7, Eos % (Auto) 0.2, Baso % (Auto) 0.2, Absolute Neuts (auto) 11.8 H, Absolute Lymphs (auto) 0.63 L, Nucleated RBC % 0 12/29/21 05:51: Lipase 106 12/29/21 08:01: POC Glucose 176 H Micro: Microbiology 12/27/21 09:35 Stool Stool Occult Blood ([facility]) - Final Radiography Diagnostic Testing: Radiology Impression Venous Doppler Study 12/27/21 16:46 Interpretation Summary Technically difficult examination. Unable to image bilateral proximal to mid calf veins secondary to patient body habitus. Only partial compressibility of the right tibioperoneal trunk with bright internal echoes suggesting chronic deep venous thrombosis. Cannot exclude an acute component. No evidence for acute deep venous thrombosis left lower extremity Patent and compressible bilateral great saphenous veins ___ Ordering Physician: Beck Simms Referring Physician: Houston Olson Performed By: Inga Lin RDCS, RVT Physical Exam Const alert and oriented x3 Resp clear to auscultation bilaterally Cardio regular rate GI GI Narrative: mild tenderness Bilateral lower quadrants Auscultation: hypoactive bowel sounds Palpation: soft Narrative: oliguric, dark joy urine Extremity General Extremity: edema bilateral Neuro Sensorium / Orientation: awake and alert Psych cooperative Assessment & Plan Assessment/Plan (1) Acute kidney injury superimposed on CKD: PLAN: likely due to shock/ATN, acute pancreatitis in single kidney. Creatinine baseline 2.6 to 3.3 increased to 3.8 now 6.0 with oliguria. Outpatient AVF placement canceled due to admission, acute pancreatitis. Discussed option of dialysis with tunneled catheter vs conservative mgmt, no ike lysis with DNR CCA. Await oncology input on prognosis, hospice candidate. Continue with iv fluids. Monitor urine output. Will need anticoagulation reversed if pt wants to proceed with dialysis. Spoke with family at bedside, hospitalist, oncology (2) CKD (chronic kidney disease) stage 4, GFR 15-29 ml/min: PLAN: in solitary kidney s/p nephrectomy for cancer with nephrotic proteinuria, hx chemotherapy induced renal failure. Baseline creatinine 2.6 eGFR 32cc/min to 3.39 eGFR 23cc/min (3) Syncope: PLAN: with hypotension, evaluate for sepsis. BP improved. (4) Dyspnea: (5) Metastatic 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: QUALIFIERS: Laterality: unspecified laterality Qualified Code(s): C78.00 - Secondary malignant neoplasm of unspecified lung; C64.9 - Malignant neoplasm of unspecified kidney, except renal pelvis PLAN: hem/onc mgmt (6) Anemia: QUALIFIERS: Anemia type: unspecified type Qualified Code(s): D64.9 - Anemia, unspecified PLAN: hgb 6.5g, hem/onc mgmt. Xarelto discontinued (7) Hypotension: PLAN: resolved (8) Bilateral pulmonary embolism: PLAN: DVT on chronic anticoagulation (9) Acute pancreatitis: QUALIFIERS: Acute pancreatitis complication: unspecified Pancrea titis type: unspecified pancreatitis type Qualified Code(s): K85.90 - Acute pancreatitis without necrosis or infection, unspecified PLAN: pancreatic mass x2 on CT. Oncology to manage
--- NOTE | 2021-12-29 10:45 | CASEMGMT ---
RN CM TRAILER PARK MANAGER CM to room to meet with patient for initial transition planning/care coordination assessment. RN CM introduced self and role at [facility]. Pt voices understanding and consents to assessment at this time. Pt resting in bed in no distress at this time. Visitors at bedside--DIL, GF, and friend. Pt agreeable to them being present during assessment. Pt is A/O at this time and answers all questions appropriately. Care providers, pharmacy, and demographics verified/updated at this time. PCP: Dr Olson Specialists: Dr Kuhn-oncology, Dr Loja-cardiology, Dr Tucker--nephrology, Dr Singh-pulmonology Preferred Pharmacy: [facility] Retail Insurance: MMO MCR Prescription Benefit: Yes Living Will/HPOA: Pt has both LW and HPOA, who is his son, Jason Wright LNOK: 2 sons. Jason/POA and Anthony Living Arrangements: Lives alone in one-story home w/basement. Ramp entrance. Independent w/ADL's and IADL's until decline Sat AM. Transportation: Pt states drives self and states no transportation concerns at this time. DME: States has the following DME: stair lift to basement, rollator, pulse ox. No home O2. Pt states no need for further DME at this time. HHC/SNF: No hx of either. Pt and DIL state Dr Tucker was just in to talk w/them and pt may need HD. They wish to talk w/pt's oncology 1st before making decision on treatment and plan of care. Advised pt, family, and GF to ask for CM if any further questions/concerns/needs arise. They voice understanding. PLAN: TBD by course of treatment and progress w/therapy. CM to follow. Salome FRANKN MAYNOR CROWELL
--- NOTE | 2021-12-29 11:23 | NURSING ---
Ended on 12/28/21 at 1514 per Bhavya Poon RN
--- NOTE | 2021-12-29 11:27 | CASEMGMT ---
Addendum entered by Lee Ann Mata 12/29/21 14:58: Per Ruby Rojas,oncology, pt is not hospice appropriate at this time. Call to [facility] to notify to cancel hospice referral that was faxed and per Jenn, palliative liasion will meet with pt tomorrow. Dr. Lund aware of all. CM to follow for any further discharge planning/needs. Gonzalo MCGUIRE CM Original Note: Call from palliative regarding pt and she states they also received Hospice order from Shirley(who was PCU charge nurse yesterday). Per Dr. Lund, he does not feel pt is ready for hospice yet but oncology is supposed to be coming into speak with pt as pt needs to make decision on dialysis as well. Palliative states that Hospice did set up appt with pt/family tomorrow but will hold off till they hear from RN MERVAT after oncology sees pt. CM to follow. Gonzalo MCGUIRE CM
[2021-12-29] MEDS: dilTIAZem CD 120 MG Capsule PO ×2 (11:43→17:11)
[2021-12-29 11:51] LABS: Bedside Glucose 132 mg/dL (74-106)
[2021-12-29 17:08] LABS: Hematocrit 26.1 % (40-54); Hemoglobin 8.2 g/dL (13.0-16.5)
[2021-12-29 18:11] LABS: Bedside Glucose 145 mg/dL (74-106)
[2021-12-29] MEDS: Ondansetron 4 MG/2 ML Vial IV (20:35)
[2021-12-29] MEDS: 0.9% Saline Lock 10 ML Syringe IV ×2 (21:41→23:19)
[2021-12-29 22:05] LABS: Bedside Glucose 132 mg/dL (74-106)
[2021-12-29] MEDS: Alteplase 2 MG/2 ML Vial IV (23:19)
[2021-12-30] VITALS (14 sets, daily range): BP systolic 117–152; BP diastolic 54–77; PULSE 54–86; RESP 18–20; TEMP 35.6–36.6; O2SAT 96–100
--- NOTE | 2021-12-30 00:42 | NURSING ---
12/29/21 @ 2200- Right upper arm PICC line flushed per protocol. Was told in report PICC line was hard to flush as well. Red lumen wouldn't flush at all and purple lumen was extremely hard to flush. Both lumens had no blood return at all. Hospitalist was notified and cathflow was ordered. Freezer Unloader was notified to perform cath flow. Will continue to monitor.
--- NOTE | 2021-12-30 00:53 | NURSING ---
12/30/21 @ 0045- Account Manager Employee Benefits was unable to get purple lumen to work after cathflow. Red lumen was not attempted. Will pass on to dayshift to ask IV infusion nurses to come evaluate PICC line to try to get it working again. PICC line lumens are locked for now. Will continue to monitor.
[2021-12-30] MEDS: Lactated Ringers 1,000 ML 125 ML IV ×3 (03:51→16:26)
[2021-12-30] MEDS: Levothyroxine 100 MCG Tablet PO (06:03)
[2021-12-30 06:25] LABS: Bedside Glucose 136 mg/dL (74-106)
[2021-12-30 06:51] LABS: Absolute Lymphocyte Count 0.59 X10^3/uL (0.83-4.51); Absolute Neutrophil Count 9.6 X10^3/uL (2.0-7.7); Basophil# 0.02 X10^3/uL; Basophil% 0.2 % (0-1); Eosinophil# 0.07 X10^3/uL; Eosinophils% 0.6 % (0-5); Lymphocyte # 0.59 X10^3/ul (0.83-4.51); Lymphocyte % 5.3 % (19-41); Mean Corp Hgb Conc 30.8 g/dL (32-36); Mean Corpuscular Hgb 26.9 pg (27.0-32.0); Mean Corpuscular Volume 87.5 fL (80-94); Mean Platelet Vol. 9.1 fl (6.2-12.0); NRBC Flagged by Analyzer 0 % (0-5); Neutrophil # 9.56 X10^3/uL (2.7-7.7); Neutrophil % 85.2 % (47-70); POSITIVE DIFFERENTIAL YES; Platelet Count 226 K/mm3 (150-450); RBC Distribution Width CV 16.4 % (11.6-14.6); RBC Distribution Width SD 51.3 fl (35.1-43.9); Red Blood Count 2.97 M/mm3 (4.6-6.2); White Blood Count 11.2 K/mm3 (4.4-11.0)
[2021-12-30 06:53] LABS: Differential Indicated SCAN CRITERIA MET
[2021-12-30 06:57] LABS: International Normalized Ratio 1.6; Prothrombin Time (Protime)PT. 18.7 SECONDS (11.7-14.9)
[2021-12-30 07:14] LABS: ALB/GLOB Ratio 0.8 RATIO (0.9-2.4); AST(SGOT) 11 U/L (15-37); Alanine Aminotransfer ALT/SGPT 11 U/L (16-61); Albumin, Serum 2.5 g/dL (3.2-5.0); Alkaline Phosphatase 48 U/L (45-117); Anion Gap 10 (5-15); BUN 81 mg/dL (7-18); BUN/Creat Ratio 15.4 RATIO (10-20); Calcium,Total 8.2 mg/dL (8.5-10.1); Chloride 106 mmol/L (98-107); Creatinine, Serum 5.25 mg/dL (0.70-1.30); EST Glomerular Filtration Rate 12 mL/min (>60); Est Glom Filt Rate - Afr Amer 14 mL/min (>60); Estimated Creatinine Clearance 14.54 ml/min; Globulin 3.3 g/dL (2.2-4.2); Glucose 148 mg/dL (74-106); Potassium 4.7 mmol/L (3.5-5.1); Protein, Total 5.8 g/dL (6.4-8.2); Sodium Level 138 mmol/L (136-145)
[2021-12-30 07:21] LABS: Differential Comment SCANNED
--- NOTE | 2021-12-30 07:45 | PN.HOSP_ITS ---
Subjective Subjective Nausea. Has not tolerated much in regards to clear liquids at this time. Positive bowel movements positive flatus. Objective Data Objective Data Vital Signs: Vital Signs Temp Pulse Resp BP Pulse Ox 36.1 C L 83 20 H 148/73 H 98 12/30/21 02:00 12/30/21 07:01 12/30/21 02:00 12/30/21 02:00 12/30/21 02:00 Oxygen Flow Rate (L/min) 2 Oxygen Delivery Method Nasal Cannula Weight: 137.6 kg Body Mass Index (BMI) 40.8 Intake & Output: Intake and Output for Last 24 Hours 12/28/21 12/29/21 12/30/21 23:59 23:59 23:59 Intake Total 971.11 / 971.11 2130.83 / 2380.83 997.92 / 997.92 Output Total 0 / 190 1115 / 1315 450 / 450 Balance 971.11 / 781.11 1015.83 / 1065.83 547.92 / 547.92 Lab / Micro Data Result Diagrams: 12/30/21 06:20 12/30/21 06:20 Labs: Laboratory Results - last 24 hr 12/28/21 08:45: Immature Plt Fraction 12/28/21 09:25: Crossmatch See Detail 12/28/21 09:25: Crossmatch See Detail 12/29/21 05:51: Lipase 106 12/29/21 08:01: POC Glucose 176 H 12/29/21 11:42: POC Glucose 132 H 12/29/21 17:00: Hgb 8.2 L, Hct 26.1 L 12/29/21 17:10: POC Glucose 145 H 12/29/21 21:44: POC Glucose 132 H 12/30/21 06:01: POC Glucose 136 H 12/30/21 06:20: WBC 11.2 H, RBC 2.97 L, Hgb 8.0 L, Hct 26.0 L, MCV 87.5, MCH 26.9 L, MCHC 30.8 L D, RDW Std Deviation 51.3 H, RDW Coeff of Shanell 16.4 H, Plt Count 226, MPV 9.1, Immature Gran % (Auto) 0.700, Neut % (Auto) 85.2 H, Lymph % (Auto) 5.3 L, [place] % (Auto) 8.0, Eos % (Auto) 0.6, Baso % (Auto) 0.2, Absolute Neuts (auto) 9.6 H, Absolute Lymphs (auto) 0.59 L, Nucleated RBC % 0, Differential Comment SCANNED 12/30/21 06:20: PT 18.7 H, INR 1.6 12/30/21 06:20: Sodium 138, Potassium 4.7, Chloride 106, Carbon Dioxide 22.0, Anion Gap 10, BUN 81 H, Creatinine 5.25 H, Estim Creat Clear Calc 14.54, Est GFR (MDRD) Af Amer 14 L, Est GFR (MDRD) Non-Af 12 L, BUN/Creatinine Ratio 15.4, Glucose 148 H, Calcium 8.2 L, Total Bilirubin 0.80, AST 11 L, ALT 11 L, Alkaline Phosphatase 48, Total Protein 5.8 L, Albumin 2.5 L, Globulin 3.3, Albumin/Globulin Ratio 0.8 L Micro: Microbiology 12/27/21 21:05 Blood Culture (Wb) - Pic Blood Culture - Preliminary No growth in 48 hours. 12/27/21 15:15 Blood Culture (Wb) - Left Hand Blood Culture - Preliminary No growth in 48 hours. 12/27/21 09:35 Stool Stool Occult Blood ([facility]) - Final Physical Exam Const alert and no apparent distress Resp normal respiratory effort, no retractions, no use of accessory muscles and clear to auscultation bilaterally Cardio regular rate, regular rhythm, S1 normal heart sound and S2 normal heart sound GI normal to inspection, nondistended, normoactive bowel sounds, soft to palpation, non-tender and non-distended Extremity normal to inspection Skin no rashes or lesions noted Neuro Sensorium / Orientation: awake and alert Assessment & Plan Assessment/Plan (1) Near syncope: (2) Acute kidney injury superimposed on CKD: PLAN: This 66-year-old gentleman admitted with generalized weakness, near fall near syncope with progressive worsening of shortness of breath, oliguria, declining of his functional capacity. 1. Near syncope/near fall * probably due to declining physical capacity: Patient stated that he felt dizzy lightheaded but his son caught him therefore he did not fall. No loss of consciousness. * Twelve-lead EKG is normal sinus rhythm troponin normal. Patient had recent echo on 12/03/2021 reported EF 55%, diastolic dysfunction LV systolic function normal, study technically study. * 12/28 hypotension: Hypotension has resolved. Patient required transient IV norepinephrine in the ICU. Hemodynamically better, transferred to PCU. Discu ssed with mix house tender near syncope dizziness has resolved. 2. Acute kidney injury on CKD stage IV, * per nephrology: suspected due to shock/ATN * single right kidney: Patient follows Dr. Tucker. His present BUN/creatinine 59/3.8, estimated creatinine clearance 20 mill per minute. Last creatinine 3.39 on 11/05, 3.14 on 09/25, gradually worsening. * As per ER physician, he also had vein mapping for anticipation of hemodialysis in the future. Retail District Manager consulted. * 12/28: No urine output. Retail District Manager follow-up. Increase in creatinine to 5.25. * 12/29: creatinine 6. DW Dr. Tucker, plan to monitor overnight and if continues to worsen, then plan for HD, unless he opts for hospice (seem unlikely he would opt for hospice) * 12/30: Cr 5.25, non-oliguric 3. right renal cell cancer stage IV * status post left nephrectomy 2011: In 2019, CT scan showed right renal mass thereafter biopsy reported renal cell carcinoma as per the CT abdomen and pelvis patient has bilateral pulmonary nodules, cirrhotic liver with perihepatic ascites, and paracolic gutter, and pancreatic mets. Patient also has bilateral effusion, with bibasilar atelectasis, right worse than the left. I * In 2019 he was started on nivolumab and ipilimumab. Thereafter he developed pneumonitis and paroxysmal A. fib in 2019, converted on medical therapy. Patient also had immunotherapy axitinib, pembrolizumab which was held due to elevated creatinine. As mentioned in HPI, he was taken off prednisone in mid September because of increased swelling/retention of fluid * 12/29: DW Rhonda Rojas. Pulmonary lesions appear stable. Cannot determine if pancreatic lesions are metastatic deposits or not. 4. Acute pancreatitis with pancreatic mass on CT scan 12/28: * Diffuse abdominal pain with tenderness. Lipase 1182.LDH normal general surgery Dr. Cuello consulted. After review of CT scan although limited because contrast cannot be given, seems pancreatitis. Conservative management with n.p.o. except medications. * may be 2/2 PD-L1 inhibitory therapy * would need eventual biopsy of pancreatic masses to confirm malignancy or from pancreatitis * Continue IV PPI, CLD (ADAT) 5. Acute on chronic diastolic heart failure, paroxysmal A. fib, bilateral PE in 2015: * As per CT patient enlarging pleural effusion with increased interstitial ed patrica. BNP high 793. Started on Lasix 40 mill IV twice daily now and then Lasix drip as patient blood pressure is on lower side probably will not tolerate pulse diuretic. Continue metoprolol, and diltiazem CD with holding parameter. * 12/28: 1 dose Lasix as patient is short of breath and tachypneic. Lipid profile reviewed 6: Intermittent tachypnea and shortness of breath: Lasix 40 mg IV given. Midodrine 10 mg 3 times daily started patient has features of decompensated cirrhosis. 7. multiple chronic comorbidities include bilateral pulmonary embolism, hypertension, hypothyroidism, immunotherapy induced pneumonitis, right lower extremity DVT: Multiple comorbidities complicates the present care and expect difficult and delay recovery TSH 4.53, free T4 normal: Probably euthyroid sick syndrome 8. Acute blood loss anemia * stable * s/p 2 units PRBCs * monitor 9. VTE prophylaxis: SCDs Charges/Coding Visit Charges Inpatient E&M: 84178 Subs Hosp L2
--- NOTE | 2021-12-30 10:04 | PCM.PN.INT ---
Assessment & Plan Assessment/Plan (1) Anemia: QUALIFIERS: Anemia type: unspecified type Qualified Code(s): D64.9 - Anemia, unspecified (2) Acute kidney injury superimposed on CKD: (3) Near syncope: PLAN: RECOMMENDATIONS: 1. Transfuse additional blood products as ordered. Check H&H posttransfusion. 2. Hold Xarelto. Possible need for IVC filter 3. Increase activity as tolerated 4. Continue PPI therapy. 5. Gentle IV fluid hydration per nephrology. 6. Ongoing goals of care discussions with the patient and family. IMPRESSIONS: 1. Hypotension Resolved. The patient was initially transferred to the ICU for management of his hypotension, which developed after receiving a large dose of IV opiate pain medication. This likely precipitated his hemodynamic instability. While the patient was transiently on Levophed, he has been weaned from vasopressor support and remains hemodynamically stable. 2. Acute pancreatitis Potentially related to PD-L1 inhibitor therapy. The offending medications were already previously discontinued. General surgery has already evaluated the patient. Although there was noted on CT imaging of new nodular densities in the mid body and tail of the pancreas, oncology feels that this is unlikely to represent metastatic disease. Nevertheless, a biopsy would ultimately be required to confirm this suspicion. For now, I would recommend continuing supportive measures including IV fluids. 3. Acute on chronic kidney disease Slightly improved compared to yesterday. Likely prerenal in etiology/ischemic ATN. Nephrology is currently following. Avoid nephrotoxic medications and maintain hemodynamic stability. Avoid diuretics for now. 4. Anemia The patient presented with worsening anemia and a hemoglobin that is less than 7 g/dL. Patient did respond to transfusions. In light of the findings noted on CT abdomen, including induration surrounding the tail of the pancreas, which could be related to inflammation or hemorrhage, general surgery was consulted for medical input. Additionally, the patient has been maintained on Xarelto as an outpatient due to a history of recurrent VTE. Nevertheless, I would recommend that he do Xarelto be placed on hold for now. Check H&H posttransfusion. Continue PPI therapy. 5. Generalized weakness with near syncope Potentially related to intravascular volume depletion and worsening anemia. The patient's hemodynamic status has stabilized. He is without any further vasopressor requirement. Continue to monitor clinically. 6. Metastatic renal cell carcinoma/paroxysmal atrial fibrillation/history of VTE/history of heart failure with preserved ejection fraction Complicates care, management, recovery and prognosis. Recommend holding Xarelto in light of worsening anemia. Given that the patient appears to have chronic lower extremity DVTs, if the patient's anemia remains an ongoing issue, the patient may need to be considered for an IVC filter. This note was generated with [employer] dictation software. It may contain incorrect words, spelling, and punctuation that were not noted in checking the note before signing. Subjective Subjective Patient did okay overnight. No acute issues were reported. Patient overall feels subjectively slightly improved compared to yesterday. Patient does admit that he has not spent much time out of bed. Patient is not reporting any significant cough or bleeding. Objective Data Objective Data Vital Signs: Vital Signs Temp Pulse Resp BP Pulse Ox 35.6 C L 86 20 H 152/77 H 100 12/30/21 07:48 12/30/21 07:48 12/30/21 07:48 12/30/21 07:48 12/30/21 07:48 Oxygen Flow Rate (L/min) 2 Oxygen Delivery Method Nasal Cannula Weight: 137.6 kg Body Mass Index (BMI) 40.8 Intake & Output: Intake and Output for Last 24 Hours 12/28/21 12/29/21 12/30/21 23:59 23:59 23:59 Intake Total 971.11 / 971.11 2130.83 / 2380.83 1235.42 / 1235.42 Output Total 0 / 190 1115 / 1315 450 / 450 Balance 971.11 / 781.11 1015.83 / 1065.83 785.42 / 785.42 Lab / Micro Data Result Diagrams: 12/30/21 06:20 12/30/21 06:20 Labs: Laboratory Results - last 24 hr 12/28/21 08:45: Immature Plt Fraction 12/28/21 09:25: Crossmatch See Detail 12/28/21 09:25: Crossmatch See Detail 12/29/21 11:42: POC Glucose 132 H 12/29/21 17:00: Hgb 8.2 L, Hct 26.1 L 12/29/21 17:10: POC Glucose 145 H 12/29/21 21:44: POC Glucose 132 H 12/30/21 06:01: POC Glucose 136 H 12/30/21 06:20: WBC 11.2 H, RBC 2.97 L, Hgb 8.0 L, Hct 26.0 L, MCV 87.5, MCH 26.9 L, MCHC 30.8 L D, RDW Std Deviation 51.3 H, RDW Coeff of Shanell 16.4 H, Plt Count 226, MPV 9.1, Immature Gran % (Auto) 0.700, Neut % (Auto) 85.2 H, Lymph % (Auto) 5.3 L, [place] % (Auto) 8.0, Eos % (Auto) 0.6, Baso % (Auto) 0.2, Absolute Neuts (auto) 9.6 H, Absolute Lymphs (auto) 0.59 L, Nucleated RBC % 0, Differential Comment SCANNED 12/30/21 06:20: PT 18.7 H, INR 1.6 12/30/21 06:20: Sodium 138, Potassium 4.7, Chloride 106, Carbon Dioxide 22.0, Anion Gap 10, BUN 81 H, Creatinine 5.25 H, Estim Creat Clear Calc 14.54, Est GFR (MDRD) Af Amer 14 L, Est GFR (MDRD) Non-Af 12 L, BUN/Creatinine Ratio 15.4, Glucose 148 H, Calcium 8.2 L, Total Bilirubin 0.80, AST 11 L, ALT 11 L, Alkaline Phosphatase 48, Total Protein 5.8 L, Albumin 2.5 L, Globulin 3.3, Albumin/Globulin Ratio 0.8 L Micro: Microbiology 12/29/21 00:25 Urine, Clean Catch Urine Culture - Final Mixed Gram Positive Organisms 12/27/21 21:05 Blood Culture (Wb) - Pic Blood Culture - Preliminary No growth in 48 hours. 12/27/21 15:15 Blood Culture (Wb) - Left Hand Blood Culture - Preliminary No growth in 48 hours. 12/27/21 09:35 Stool Stool Occult Blood ([facility]) - Final Physical Exam Const alert and oriented x3 General Appearance: cooperative Nutritional Appearance: morbidly obese HEENT normocephalic, head/scalp atraumatic and moist oral mucous membranes Eyes PERRL, EOMs intact bilaterally and conjunctivae normal Neck supple General: trachea midline Chest inspection of chest normal Resp Auscultation: diminished lung sounds; Negative for rales, rhonchi or wheezes Cardio S1 normal heart sound and S2 normal heart sound Rate: tachycardic GI GI Narrative: Nonfocal tenderness to palpation. No rebound or guarding noted Inspection: Negative for abdominal distention Palpation: tender Extremity General Extremity: edema bilateral lower extremity; Negative for clubbing Skin no rashes or lesions noted Neuro CN's II-XII intact bilaterally, moves all extremities and no focal motor deficits Psych cooperative and affect normal Charges/Coding Visit Charges Inpatient E&M: 55629 Subs Hosp L2
--- NOTE | 2021-12-30 10:08 | NURSING ---
Cathflo instilled to both lumens of picc line @ 1000.
[2021-12-30] MEDS: Ondansetron 4 MG/2 ML Vial IV (10:09)
[2021-12-30] MEDS: Alteplase 2 MG/2 ML Vial IV ×2 (10:09)
--- NOTE | 2021-12-30 10:40 | NURSING ---
Attempted to pull back blood from declotting PICC line. Unsuccessful. Will continue to allow to dwell.
[2021-12-30] MEDS: 0.9% Saline Lock 10 ML Syringe IV (11:02)
[2021-12-30] MEDS: dilTIAZem CD 120 MG Capsule PO (11:02)
[2021-12-30] MEDS: Senna/Docusate Sodium 1 Tablet 2 TABLET PO (11:03)
[2021-12-30] MEDS: Tamsulosin HCl 0.4 MG Capsule PO ×2 (11:03→19:50)
[2021-12-30] MEDS: Polyethylene Glycol 3350 17 GM PACKET PO (11:03)
[2021-12-30] MEDS: Allopurinol 100 MG Tablet PO (11:03)
[2021-12-30] MEDS: Finasteride 5 MG Tablet PO (11:03)
[2021-12-30] MEDS: Metoprolol Tartrate 100 MG Tablet PO (11:03)
--- NOTE | 2021-12-30 11:16 | PCM.PN.SRG ---
Subjective Subjective Patient feels more bloated today. But his abdominal pain is improving. Objective Data Objective Data Obese no rebound guarding or peritoneal signs Vital Signs: Vital Signs Temp Pulse Resp BP Pulse Ox 96.1 F L 86 20 H 152/77 H 100 12/30/21 07:48 12/30/21 11:03 12/30/21 07:48 12/30/21 11:03 12/30/21 07:48 Oxygen Flow Rate (L/min) 2 Oxygen Delivery Method Nasal Cannula Weight: 303 lb 5.697 oz Body Mass Index (BMI) 40.8 Intake & Output: Intake and Output for Last 24 Hours 12/28/21 12/29/21 12/30/21 23:59 23:59 23:59 Intake Total 971.11 / 971.11 2130.83 / 2380.83 1628.75 / 1628.75 Output Total 0 / 190 1115 / 1315 450 / 450 Balance 971.11 / 781.11 1015.83 / 1065.83 1178.75 / 1178.75 Lab / Micro Data Result Diagrams: 12/30/21 06:20 12/30/21 06:20 Labs: Laboratory Results - last 24 hr 12/28/21 08:45: Immature Plt Fraction 12/28/21 09:25: Crossmatch See Detail 12/28/21 09:25: Crossmatch See Detail 12/29/21 11:42: POC Glucose 132 H 12/29/21 17:00: Hgb 8.2 L, Hct 26.1 L 12/29/21 17:10: POC Glucose 145 H 12/29/21 21:44: POC Glucose 132 H 12/30/21 06:01: POC Glucose 136 H 12/30/21 06:20: WBC 11.2 H, RBC 2.97 L, Hgb 8.0 L, Hct 26.0 L, MCV 87.5, MCH 26.9 L, MCHC 30.8 L D, RDW Std Deviation 51.3 H, RDW Coeff of Shanell 16.4 H, Plt Count 226, MPV 9.1, Immature Gran % (Auto) 0.700, Neut % (Auto) 85.2 H, Lymph % (Auto) 5.3 L, [place] % (Auto) 8.0, Eos % (Auto) 0.6, Baso % (Auto) 0.2, Absolute Neuts (auto) 9.6 H, Absolute Lymphs (auto) 0.59 L, Nucleated RBC % 0, Differential Comment SCANNED 12/30/21 06:20: PT 18.7 H, INR 1.6 12/30/21 06:20: Sodium 138, Potassium 4.7, Chloride 106, Carbon Dioxide 22.0, Anion Gap 10, BUN 81 H, Creatinine 5.25 H, Estim Creat Clear Calc 14.54, Est GFR (MDRD) Af Amer 14 L, Est GFR (MDRD) Non-Af 12 L, BUN/Creatinine Ratio 15.4, Glucose 148 H, Calcium 8.2 L, Total Bilirubin 0.80, AST 11 L, ALT 11 L, Alkaline Phosphatase 48, Total Protein 5.8 L, Albumin 2.5 L, Globulin 3.3, Albumin/Globulin Ratio 0.8 L Micro: Microbiology 12/29/21 00:25 Urine, Clean Catch Urine Culture - Final Mixed Gram Positive Organisms 12/27/21 21:05 Blood Culture (Wb) - Pic Blood Culture - Preliminary No growth in 48 hours. 12/27/21 15:15 Blood Culture (Wb) - Left Hand Blood Culture - Preliminary No growth in 48 hours. 12/27/21 09:35 Stool Stool Occult Blood ([facility]) - Final Assessment & Plan Assessment/Plan (1) Acute pancreatitis: QUALIFIERS: Pancreatitis type: unspecified pancreatitis type Acute pancreatitis complication: unspecified Qualified Code(s): K85.90 - Acute pancreatitis without necrosis or infection, unspecified PLAN: No acute surgical needs at this time. We will sign off.
[2021-12-30 11:21] LABS: Bedside Glucose 140 mg/dL (74-106)
--- NOTE | 2021-12-30 12:11 | NURSING ---
My Machado RN trying cath flow on pt, letting it set for another 90 min as 30 min was unsuccessful. Pt resting in bed, will continue to monitor
--- NOTE | 2021-12-30 12:18 | NURSING ---
Second attempt with cath flow unsuccessful per Carter, seo coordinator, Dr. Lund notified
--- NOTE | 2021-12-30 14:05 | PCM.PN.REN ---
Subjective Subjective mild nausea from apple juice. No vomiting. Abdominal pain resolved. BP stable. Urine output improving with creatinine. Holding dialysis. Objective Data Objective Data Vital Signs: Vital Signs Temp Pulse Resp BP Pulse Ox 96.1 F L 86 20 H 152/77 H 100 12/30/21 07:48 12/30/21 11:03 12/30/21 07:48 12/30/21 11:03 12/30/21 07:48 Oxygen Flow Rate (L/min) 2 Oxygen Delivery Method Nasal Cannula Weight: 137.6 kg Body Mass Index (BMI) 40.8 Intake & Output: Intake and Output for Last 24 Hours 12/28/21 12/29/21 12/30/21 23:59 23:59 23:59 Intake Total 971.11 / 971.11 2130.83 / 2380.83 1828.75 / 1828.75 Output Total 0 / 190 1115 / 1315 950 / 950 Balance 971.11 / 781.11 1015.83 / 1065.83 878.75 / 878.75 Lab / Micro Data Result Diagrams: 12/30/21 06:20 12/30/21 06:20 Labs: Laboratory Results - last 24 hr 12/28/21 09:25: Crossmatch See Detail 12/29/21 17:00: Hgb 8.2 L, Hct 26.1 L 12/29/21 17:10: POC Glucose 145 H 12/29/21 21:44: POC Glucose 132 H 12/30/21 06:01: POC Glucose 136 H 12/30/21 06:20: WBC 11.2 H, RBC 2.97 L, Hgb 8.0 L, Hct 26.0 L, MCV 87.5, MCH 26.9 L, MCHC 30.8 L D, RDW Std Deviation 51.3 H, RDW Coeff of Shanell 16.4 H, Plt Count 226, MPV 9.1, Immature Gran % (Auto) 0.700, Neut % (Auto) 85.2 H, Lymph % (Auto) 5.3 L, [place] % (Auto) 8.0, Eos % (Auto) 0.6, Baso % (Auto) 0.2, Absolute Neuts (auto) 9.6 H, Absolute Lymphs (auto) 0.59 L, Nucleated RBC % 0, Differential Comment SCANNED 12/30/21 06:20: PT 18.7 H, INR 1.6 12/30/21 06:20: Sodium 138, Potassium 4.7, Chloride 106, Carbon Dioxide 22.0, Anion Gap 10, BUN 81 H, Creatinine 5.25 H, Estim Creat Clear Calc 14.54, Est GFR (MDRD) Af Amer 14 L, Est GFR (MDRD) Non-Af 12 L, BUN/Creatinine Ratio 15.4, Glucose 148 H, Calcium 8.2 L, Total Bilirubin 0.80, AST 11 L, ALT 11 L, Alkaline Phosphatase 48, Total Protein 5.8 L, Albumin 2.5 L, Globulin 3.3, Albumin/Globulin Ratio 0.8 L 12/30/21 11:00: POC Glucose 140 H Micro: Microbiology 12/29/21 00:25 Urine, Clean Catch Urine Culture - Final Mixed Gram Positive Organisms 12/27/21 21:05 Blood Culture (Wb) - Pic Blood Culture - Preliminary No growth in 48 hours. 12/27/21 15:15 Blood Culture (Wb) - Left Hand Blood Culture - Preliminary No growth in 48 hours. 12/27/21 09:35 Stool Stool Occult Blood ([facility]) - Final Physical Exam Const alert, oriented x3 and no apparent distress Resp clear to auscultation bilaterally Cardio regular rate GI non-tender and non-distended GI Narrative: obese Palpation: soft Extremity Extremity Narrative: mild edema improved Psych cooperative Assessment & Plan Assessment/Plan (1) Acute kidney injury superimposed on CKD: PLAN: due to shock/ATN, acute pancreatitis in single kidney. Creatinine baseline 2.6 to 3.3. Cr improved from 6 to 5.25 today. Holding dialysis. Urine output improved. Spoke with family at bedside. (2) CKD (chronic kidney disease) stage 4, GFR 15-29 ml/min: PLAN: in solitary kidney s/p nephrectomy for cancer with nephrotic proteinuria, hx chemotherapy induced renal failure. Baseline creatinine 2.6 eGFR 32cc/min to 3.39 eGFR 23cc/min (3) Syncope: PLAN: with hypotension. BP improved. (4) Dyspnea: (5) Metastatic 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: QUALIFIERS: Laterality: unspecified laterality Qualified Code(s): C78.00 - Secondary malignant neoplasm of unspecified lung; C64.9 - Malignant neoplasm of unspecified kidney, except renal pelvis PLAN: hem/onc mgmt (6) Anemia: QUALIFIERS: Anemia type: unspecified type Qualified Code(s): D64.9 - Anemia, unspecified PLAN: hgb 8g (7) Hypotension: PLAN: resolved (8) Bilateral pulmonary embolism: PLAN: DVT on chronic anticoagulation (9) Acute pancreatitis: QUALIFIERS: Acute pancreatitis complication: unspecified Pancreatitis type: unspecified pancreatitis type Qualified Code(s): K85.90 - Acute pancreatitis without necrosis or infection, unspecified PLAN: improved, tolerating liquid diet
--- NOTE | 2021-12-30 15:36 | CHAPLAIN ---
Type of Pastoral Visit _x__ Initial Visit ___ Follow-up Visit ___ On-call Visit ___ General Patient Visit ___ Spiritual Assessment ___ Family Conference ___ Bereavement ___ Rapid Response ___ Code Blue ___ Other (describe below) Pastoral Care Referral From _x__ Patient ___ Family ___ Nurse ___ Physician ___ Medical Delivery Driver ___ Hole Filler ___ Other (describe below) Sacrament/Intervention _x__ Active listening ___ Anointing ___ Jainism ___ Bereavement ___ Communion ___ Susanna exploration ___ ___ Life review _x__ Prayer ___ Reconciliation ___ Sacrament of Sick _x__ Supportive presence ___ Wedding ___ Other (describe below) Pastoral Comments patient is resting in bed; pt reports feeling better than yesterday; pt son and DIL are with him; pt states he just wants to get home soon; pt welcomes a prayer but says he doesn't need anything else;
[2021-12-30 16:00] LABS: Bedside Glucose 150 mg/dL (74-106)
--- NOTE | 2021-12-30 16:03 | CASEMGMT ---
Palliative liasion here to speak with pt and she states pt declined palliative at this time but would like for them to f/u with him in a month or so. Gonzalo MCGUIRE CM
[2021-12-30 22:41] LABS: Bedside Glucose 151 mg/dL (74-106)
[2021-12-31] VITALS (13 sets, daily range): BP systolic 124–151; BP diastolic 55–72; PULSE 64–81; RESP 16–20; TEMP 36.4–36.8; O2SAT 93–98
[2021-12-31 06:03] LABS: Absolute Lymphocyte Count 0.78 X10^3/uL (0.83-4.51); Absolute Neutrophil Count 5.1 X10^3/uL (2.0-7.7); Basophil# 0.02 X10^3/uL; Basophil% 0.3 % (0-1); Eosinophil# 0.22 X10^3/uL; Eosinophils% 3.2 % (0-5); Hematocrit 22.4 % (40-54); Hemoglobin 6.7 g/dL (13.0-16.5); Lymphocyte # 0.78 X10^3/ul (0.83-4.51); Lymphocyte % 11.5 % (19-41); Mean Corp Hgb Conc 29.9 g/dL (32-36); Mean Corpuscular Hgb 26.7 pg (27.0-32.0); Mean Corpuscular Volume 89.2 fL (80-94); Mean Platelet Vol. 9.1 fl (6.2-12.0); Monocyte# 0.67 X10^3/uL; Monocyte% 9.9 % (0-10); NRBC Flagged by Analyzer 0 % (0-5); Neutrophil # 5.07 X10^3/uL (2.7-7.7); Neutrophil % 74.5 % (47-70); Platelet Count 177 K/mm3 (150-450); RBC Distribution Width CV 16.4 % (11.6-14.6); RBC Distribution Width SD 53.1 fl (35.1-43.9); Red Blood Count 2.51 M/mm3 (4.6-6.2); White Blood Count 6.8 K/mm3 (4.4-11.0)
[2021-12-31] MEDS: Lactated Ringers 1,000 ML 125 ML IV (06:11)
[2021-12-31] MEDS: Levothyroxine 100 MCG Tablet PO (06:12)
[2021-12-31 06:21] LABS: Bedside Glucose 122 mg/dL (74-106)
[2021-12-31 06:47] LABS: Anion Gap 6 (5-15); BUN 77 mg/dL (7-18); BUN/Creat Ratio 16.3 RATIO (10-20); Calcium,Total 8.1 mg/dL (8.5-10.1); Chloride 108 mmol/L (98-107); Creatinine, Serum 4.73 mg/dL (0.70-1.30); EST Glomerular Filtration Rate 13 mL/min (>60); Est Glom Filt Rate - Afr Amer 16 mL/min (>60); Estimated Creatinine Clearance 16.14 ml/min; Glucose 120 mg/dL (74-106); Potassium 4.2 mmol/L (3.5-5.1); Sodium Level 138 mmol/L (136-145)
--- NOTE | 2021-12-31 08:00 | PN.HOSP_ITS ---
Subjective Subjective Feels well. Tolerating diet. Objective Data Objective Data Vital Signs: Vital Signs Temp Pulse Resp BP Pulse Ox 36.6 C 65 18 133/62 H 97 12/31/21 07:00 12/31/21 07:00 12/31/21 07:00 12/31/21 07:00 12/31/21 07:00 Oxygen Flow Rate (L/min) 2 Oxygen Delivery Method Nasal Cannula Weight: 137.8 kg Body Mass Index (BMI) 40.8 Intake & Output: Intake and Output for Last 24 Hours 12/29/21 12/30/21 12/31/21 23:59 23:59 23:59 Intake Total 2130.83 / 2380.83 2913.75 / 2913.75 1120 / 1120 Output Total 1115 / 1315 950 / 950 350 / 350 Balance 1015.83 / 1065.83 1963.75 / 1963.75 770 / 770 Lab / Micro Data Result Diagrams: 12/31/21 10:00 12/31/21 05:52 Labs: Laboratory Results - last 24 hr 12/28/21 09:25: Crossmatch See Detail 12/30/21 11:00: POC Glucose 140 H 12/30/21 15:57: POC Glucose 150 H 12/30/21 22:22: POC Glucose 151 H 12/31/21 05:52: WBC 6.8, RBC 2.51 L, Hgb 6.7 L, Hct 22.4 L, MCV 89.2, MCH 26.7 L , MCHC 29.9 L, RDW Std Deviation 53.1 H, RDW Coeff of Shanell 16.4 H, Plt Count 177, MPV 9.1, Immature Gran % (Auto) 0.600, Neut % (Auto) 74.5 H, Lymph % (Auto) 11.5 L, [place] % (Auto) 9.9, Eos % (Auto) 3.2, Baso % (Auto) 0.3, Absolute Neuts (auto) 5.1, Absolute Lymphs (auto) 0.78 L, Nucleated RBC % 0 12/31/21 05:52: Sodium 138, Potassium 4.2, Chloride 108 H, Carbon Dioxide 24.0, Anion Gap 6, BUN 77 H, Creatinine 4.73 H, Estim Creat Clear Calc 16.14, Est GFR (MDRD) Af Amer 16 L, Est GFR (MDRD) Non-Af 13 L, BUN/Creatinine Ratio 16.3, Glucose 120 H, Calcium 8.1 L 12/31/21 06:09: POC Glucose 122 H Micro: Microbiology 12/29/21 00:25 Urine, Clean Catch Urine Culture - Final Mixed Gram Positive Organisms 12/27/21 21:05 Blood Culture (Wb) - Pic Blood Culture - Preliminary No growth in 48 hours. 12/27/21 15:15 Blood Culture (Wb) - Left Hand Blood Culture - Preliminary No growth in 48 hours. 12/27/21 09:35 Stool Stool Occult Blood ([facility]ER) - Final Physical Exam Const alert and no apparent distress Resp normal respiratory effort, no retractions, no use of accessory muscles and clear to auscultation bilaterally Cardio regular rate, regular rhythm, S1 normal heart sound and S2 normal heart sound GI normal to inspection, nondistended, normoactive bowel sounds, soft to palpation, non-tender and non-distended Extremity normal to inspection General Extremity: edema Assessment & Plan Assessment/Plan (1) Near syncope: (2) Acute kidney injury superimposed on CKD: PLAN: This 66-year-old gentleman admitted with generalized weakness, near fall near syncope with progressive worsening of shortness of breath, oliguria, declining of his functional capacity. 1. Near syncope/near fall * probably due to declining physical capacity: Patient stated that he felt dizzy lightheaded but his son caught him therefore he did not fall. No loss of consciousness. * Twelve-lead EKG is normal sinus rhythm troponin normal. Patient had recent echo on 12/03/2021 reported EF 55%, diastolic dysfunction LV systolic function normal, study technically study. * 12/28 hypotension: Hypotension has resolved. Patient required transient IV norepinephrine in the ICU. Hemodynamically better, transferred to PCU. Discussed with prop sawyer near syncope dizziness has resolved. 2. Acute kidney injury on CKD stage IV, * per nephrology: suspected due to shock/ATN * single right kidney: Patient follows Dr. Tucker. His present BUN/creatinine 59/3.8, estimated creatinine clearance 20 mill per minute. Last creatinine 3.39 on 11/05, 3.14 on 09/25, gradually worsening. * As per ER physician, he also had vein mapping for anticipation of hemodialysis in the future. Edi Coordinator consulted. * 12/28: No urine output. Edi Coordinator follow-up. Increase in creatinine to 5.25. * 12/29: creatinine 6. DW Dr. Tucker, plan to monitor overnight and if continues to worsen, then plan for HD, unless he opts for hospice (seem unlikely he would opt for hospice) * 12/30: Cr 5.25, non-oliguric * 12/31: Cr 4.73 3. right renal cell cancer stage IV * status post left nephrectomy 2010: In 2018, CT scan showed right renal mass thereafter biopsy reported renal cell carcinoma as per the CT abdomen and pelvis patient has bilateral pulmonary nodules, cirrhotic liver with perihepatic ascites, and paracolic gutter, and pancreatic mets. Patient also has bilateral effusion, with bibasilar atelectasis, right worse than the left. I * In 2018 he was started on nivolumab and ipilimumab. Thereafter he developed pneumonitis and paroxysmal A. fib in 2018, converted on medical therapy. Patient also had immunotherapy axitinib, pembrolizumab which was held due to elevated creatinine. As mentioned in HPI, he was taken off prednisone in mid September because of increased swelling/retention of fluid * 12/29: DW Rhonda Rojas. Pulmonary lesions appear stable. Cannot determine if pancreatic lesions are metastatic deposits or not. 4. Acute pancreatitis with pancreatic mass on CT scan 12/28: * Diffuse abdominal pain with tenderness. Lipase 1182.LDH normal general surgery Dr. Cuello consulted. After review of CT scan although limited because contrast cannot be given, seems pancreatitis. Conservative management with n.p.o. except medications. * may be 2/2 PD-L1 inhibitory therapy * would need eventual biopsy of pancreatic masses to confirm malignancy or from pancreatitis * Continue IV PPI, 5. Acute on chronic diastolic heart failure, paroxysmal A. fib, bilateral PE in 2014: * As per CT patient enlarging pleural effusion with increased interstitial edema. BNP high 793. Started on Lasix 40 mill IV twice daily now and then Lasix drip as patient blood pressure is on lower side probably will not tolerate pulse diuretic. Continue metoprolol, and diltiazem CD with holding parameter. * 12/28: 1 dose Lasix as patient is short of breath and tachypneic. Lipid profile reviewed 6: Intermittent tachypnea and shortness of breath: Lasix 40 mg IV given. Midodrine 10 mg 3 times daily started patient has features of decompensated cirrhosis. 7. multiple chronic comorbidities include bilateral pulmonary embolism, hypertension, hypothyroidism, immunotherapy induced pneumonitis, right lower extremity DVT: Multiple comorbidities complicates the present care and expect difficult and delay recovery TSH 4.53, free T4 normal: Probably euthyroid sick syndrome 8. Acute blood loss anemia * stable * s/p 2 units PRBCs * monitor * 12/31: Hg 6.7, will TF 1 unit PRBCs. Check iron, TIBC, ferritin, B12, folate 9. VTE prophylaxis: SCDs Charges/Coding Visit Charges Inpatient E&M: 97659 Subs Hosp L2
[2021-12-31] MEDS: Allopurinol 100 MG Tablet PO (08:04)
[2021-12-31 09:02] LABS: Ferritin 55 ng/mL (26-388); Iron 35 ug/dL (65-175); Iron Binding Capacity,Total 254 ug/dL (250-450); PERCENT IRON SATURATION 13.8 % (15.0-55.0)
[2021-12-31 09:04] LABS: Vitamin B12 1054 pg/mL (211-911)
[2021-12-31] MEDS: Tamsulosin HCl 0.4 MG Capsule PO ×2 (09:04→21:39)
[2021-12-31] MEDS: Finasteride 5 MG Tablet PO (09:05)
[2021-12-31 10:10] LABS: Hematocrit 26.1 % (40-54); Hemoglobin 7.9 g/dL (13.0-16.5)
[2021-12-31] MEDS: Insulin Lispro 100 UNIT/ML INSULN.PEN SC (11:46)
[2021-12-31 11:55] LABS: Bedside Glucose 146 mg/dL (74-106)
[2021-12-31] MEDS: Menthol/Lanolin/Calamine/Znox 113 GM Tube 1 APPLIC TOPICAL (12:16)
--- NOTE | 2021-12-31 12:25 | PN.RENAL_ITS ---
Subjective Subjective loose BM from bowel prep. Denies nausea, vomiting. Minimal abdominal pain. OXygenation stable. Objective Data Objective Data Vital Signs: Vital Signs Temp Pulse Resp BP Pulse Ox 97.7 F L 66 16 124/59 H 95 12/31/21 08:58 12/31/21 08:58 12/31/21 08:58 12/31/21 09:01 12/31/21 08:58 Oxygen Flow Rate (L/min) 2 Oxygen Delivery Method Nasal Cannula Weight: 137.8 kg Body Mass Index (BMI) 40.8 Intake & Output: Intake and Output for Last 24 Hours 12/29/21 12/30/21 12/31/21 23:59 23:59 23:59 Intake Total 2130.83 / 2380.83 2913.75 / 2913.75 2110 / 2110 Output Total 1115 / 1315 950 / 950 350 / 350 Balance 1015.83 / 1065.83 1963.75 / 1963.75 1760 / 1760 Lab / Micro Data Result Diagrams: 12/31/21 10:00 12/31/21 05:52 Labs: Laboratory Results - last 24 hr 12/28/21 09:25: Crossmatch See Detail 12/30/21 15:57: POC Glucose 150 H 12/30/21 22:22: POC Glucose 151 H 12/31/21 05:52: WBC 6.8, RBC 2.51 L, Hgb 6.7 L, Hct 22.4 L, MCV 89.2, MCH 26.7 L , MCHC 29.9 L, RDW Std Deviation 53.1 H, RDW Coeff of Shanell 16.4 H, Plt Count 177, MPV 9.1, Immature Gran % (Auto) 0.600, Neut % (Auto) 74.5 H, Lymph % (Auto) 11.5 L, [place] % (Auto) 9.9, Eos % (Auto) 3.2, Baso % (Auto) 0.3, Absolute Neuts (auto) 5.1, Absolute Lymphs (auto) 0.78 L, Nucleated RBC % 0 12/31/21 05:52: Sodium 138, Potassium 4.2, Chloride 108 H, Carbon Dioxide 24.0, Anion Gap 6, BUN 77 H, Creatinine 4.73 H, Estim Creat Clear Calc 16.14, Est GFR (MDRD) Af Amer 16 L, Est GFR (MDRD) Non-Af 13 L, BUN/Creatinine Ratio 16.3, Glucose 120 H, Calcium 8.1 L 12/31/21 05:52: Iron 35 L, TIBC 254, Iron Saturation 13.8 L, Ferritin 55, Folate 11.10 12/31/21 06:09: POC Glucose 122 H 12/31/21 08:25: Vitamin B12 1054 H 12/31/21 10:00: Hgb 7.9 L, Hct 26.1 L 12/31/21 11:45: POC Glucose 146 H Micro: Microbiology 12/29/21 00:25 Urine, Clean Catch Urine Culture - Final Mixed Gram Positive Organisms 12/27/21 21:05 Blood Culture (Wb) - Pic Blood Culture - Preliminary No growth in 48 hours. 12/27/21 15:15 Blood Culture (Wb) - Left Hand Blood Culture - Preliminary No growth in 48 hours. 12/27/21 09:35 Stool Stool Occult Blood ([facility]ER) - Final Physical Exam Const alert, oriented x3 and no apparent distress Resp clear to auscultation bilaterally Cardio regular rate GI non-tender GI Narrative: distended, obese Palpation: soft Assessment & Plan Assessment/Plan (1) Acute kidney injury superimposed on CKD: PLAN: renal fxn continues to improve in solitary kidney. Spoke with at bedside (2) CKD (chronic kidney disease) stage 4, GFR 15-29 ml/min: PLAN: in solitary kidney s/p nephrectomy for cancer with nephrotic proteinuria, hx chemotherapy induced renal failure. Baseline creatinine 2.6 eGFR 32cc/min to 3.39 eGFR 23cc/min (3) Acute pancreatitis: QUALIFIERS: Pancreatitis type: unspecified pancreatitis type Acute pancreatitis complication: unspecified Qualified Code(s): K85.90 - Acute pancreatitis without necrosis or infection, unspecified PLAN: improved, advance diet (4) Metastatic 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: QUALIFIERS: Laterality: unspecified laterality Qualified Code(s): C78.00 - Secondary malignant neoplasm of unspecified lung; C64.9 - Malignant neoplasm of unspecified kidney, except renal pelvis PLAN: hem/onc mgmt (5) Anemia: QUALIFIERS: Anemia type: unspecified type Qualified Code(s): D64.9 - Anemia, unspecified PLAN: hgb 8g (6) Bilateral pulmonary embolism: PLAN: DVT on chronic anticoagulation
--- NOTE | 2021-12-31 12:35 | PN.CC_ITS ---
Assessment & Plan Assessment/Plan (1) Anemia: QUALIFIERS: Anemia type: unspecified type Qualified Code(s): D64.9 - Anemia, unspecified (2) Acute kidney injury superimposed on CKD: (3) Near syncope: PLAN: RECOMMENDATIONS: 1. Transfuse additional blood products as indicated. 2. Hold Xarelto. Possible need for IVC filter 3. Increase activity as tolerated 4. Continue PPI therapy. 5. Gentle IV fluid hydration per nephrology. 6. Ongoing goals of care discussions with the patient and family. 7. Hemodynamically stable on minimal nasal cannula oxygen. Will sign off from a pulmonary/critical care perspective IMPRESSIONS: 1. Hypotension Resolved. The patient was initially transferred to the ICU for management of his hypotension, which developed after receiving a large dose of IV opiate pain medication. This likely precipitated his hemodynamic instability. While the patient was transiently on Levophed, he has been weaned from vasopressor support and remains hemodynamically stable. Given hemodynamically stable condition, will sign off from a pulmonary/critical care perspective. Patient can follow-up as an outpatient if requested. 2. Acute pancreatitis Potentially related to PD-L1 inhibitor therapy. The offending medications were already previously discontinued. General surgery has already evaluated the patient. Although there was noted on CT imaging of new nodular densities in the mid body and tail of the pancreas, oncology feels that this is unlikely to represent metastatic disease. Nevertheless, a biopsy would ultimately be required to confirm this suspicion. For now, I would recommend continuing supportive measures including IV fluids. Potential biopsy could be pursued as an outpatient. 3. Acute on chronic kidney disease Continues to improve compared to yesterday. Likely prerenal in etiology/ischemic ATN. Nephrology is currently following. Avoid nephrotoxic medications and maintain hemodynamic stability. Avoid diuretics for now. 4. Anemia The patient presented with worsening anemia and a hemoglobin that is less than 7 g/dL. Patient did respond to transfusions. In light of the findings no humberto on CT abdomen, including induration surrounding the tail of the pancreas, which could be related to inflammation or hemorrhage, general surgery was consulted for medical input. Additionally, the patient has been maintained on Xarelto as an outpatient due to a history of recurrent VTE. Nevertheless, I would recommend that he do Xarelto be placed on hold for now. Check H&H posttransfusion. Continue PPI therapy. 5. Generalized weakness with near syncope Potentially related to intravascular volume depletion and worsening anemia. The patient's hemodynamic status has stabilized. He is without any further vasopressor requirement. Continue to monitor clinically. 6. Metastatic renal cell carcinoma/paroxysmal atrial fibrillation/history of VTE/history of heart failure with preserved ejection fraction Complicates care, management, recovery and prognosis. Recommend holding Xarelto in light of worsening anemia. Given that the patient appears to have chronic lower extremity DVTs, if the patient's anemia remains an ongoing issue, the patient may need to be considered for an IVC filter. This note was generated with [employer] dictation software. It may contain incorrect words, spelling, and punctuation that were not noted in checking the note before signing. Subjective Subjective Patient appears to be doing well from a respiratory standpoint. Patient was able to ambulate to the bathroom without assistance of a walker. Patient is not reporting any repeat syncopal events. Patient has been able to change body position without a sensation of lightheadedness. Patient's oxygen demands have not changed. Objective Data Objective Data Vital Signs: Vital Signs Temp Pulse Resp BP Pulse Ox 36.5 C L 66 16 124/59 H 95 12/31/21 08:58 12/31/21 08:58 12/31/21 08:58 12/31/21 09:01 12/31/21 08:58 Oxygen Flow Rate (L/min) 2 Oxygen Delivery Method Nasal Cannula Weight: 137.8 kg Body Mass Index (BMI) 40.8 Intake & Output: Intake and Output for Last 24 Hours 12/29/21 12/30/21 12/31/21 23:59 23:59 23:59 Intake Total 2130.83 / 2380.83 2913.75 / 2913.75 2110 / 2110 Output Total 1115 / 1315 950 / 950 350 / 350 Balance 1015.83 / 1065.83 1963.75 / 1963.75 1760 / 1760 Lab / Micro Data Result Diagrams: 12/31/21 10:00 12/31/21 05:52 Labs: Laboratory Results - last 24 hr 12/28/21 09:25: Crossmatch See Detail 12/30/21 15:57: POC Glucose 150 H 12/30/21 22:22: POC Glucose 151 H 12/31/21 05:52: WBC 6.8, RBC 2.51 L, Hgb 6.7 L, Hct 22.4 L, MCV 89.2, MCH 26.7 L , MCHC 29.9 L, RDW Std Deviation 53.1 H, RDW Coeff of Shanell 16.4 H, Plt Count 177, MPV 9.1, Immature Gran % (Auto) 0.600, Neut % (Auto) 74.5 H, Lymph % (Auto) 11.5 L, [place] % (Auto) 9.9, Eos % (Auto) 3.2, Baso % (Auto) 0.3, Absolute Neuts (auto) 5.1, Absolute Lymphs (auto) 0.78 L, Nucleated RBC % 0 12/31/21 05:52: Sodium 138, Potassium 4.2, Chloride 108 H, Carbon Dioxide 24.0, Anion Gap 6, BUN 77 H, Creatinine 4.73 H, Estim Creat Clear Calc 16.14, Est GFR (MDRD) Af Amer 16 L, Est GFR (MDRD) Non-Af 13 L, BUN/Creatinine Ratio 16.3, Glucose 120 H, Calcium 8.1 L 12/31/21 05:52: Iron 35 L, TIBC 254, Iron Saturation 13.8 L, Ferritin 55, Folate 11.10 12/31/21 06:09: POC Glucose 122 H 12/31/21 08:25: Vitamin B12 1054 H 12/31/21 10:00: Hgb 7.9 L, Hct 26.1 L 12/31/21 11:45: POC Glucose 146 H Micro: Microbiology 12/29/21 00:25 Urine, Clean Catch Urine Culture - Final Mixed Gram Positive Organisms 12/27/21 21:05 Blood Culture (Wb) - Pic Blood Culture - Preliminary No growth in 48 hours. 12/27/21 15:15 Blood Culture (Wb) - Left Hand Blood Culture - Preliminary No growth in 48 hours. 12/27/21 09:35 Stool Stool Occult Blood ([facility]ER) - Final Physical Exam Const alert and oriented x3 General Appearance: cooperative Nutritional Appearance: morbidly obese HEENT normocephalic, head/scalp atraumatic and moist oral mucous membranes Eyes PERRL, EOMs intact bilaterally and conjunctivae normal Neck supple General: trachea midline Chest inspection of chest normal Resp Auscultation: diminished lung sounds; Negative for rales, rhonchi or wheezes Cardio S1 normal heart sound and S2 normal heart sound Rate: tachycardic GI GI Narrative: Nonfocal tenderness to palpation. No rebound or guarding noted Inspection: Negative for abdominal distention Palpation: tender Extremity General Extremity: edema bilateral lower extremity; Negative for clubbing Skin no rashes or lesions noted Neuro CN's II-XII intact bilaterally, moves all extremities and no focal motor deficits Psych cooperative and affect normal Charges/Coding Visit Charges Inpatient E&M: 89300 Subs Hosp L2
[2021-12-31 16:55] LABS: Bedside Glucose 138 mg/dL (74-106)
[2021-12-31] MEDS: 0.9% Saline Lock 10 ML Syringe IV (21:38)
[2021-12-31] MEDS: Metoprolol Tartrate 100 MG Tablet PO (21:38)
[2021-12-31] MEDS: dilTIAZem CD 120 MG Capsule PO (21:39)
[2021-12-31 21:50] LABS: Bedside Glucose 123 mg/dL (74-106)
[2022-01-01] VITALS (8 sets, daily range): BP systolic 129–148; BP diastolic 66–86; PULSE 63–87; RESP 16–20; TEMP 36.1–36.6; O2SAT 93–98
[2022-01-01] MEDS: Levothyroxine 100 MCG Tablet PO (05:18)
[2022-01-01 06:42] LABS: Absolute Lymphocyte Count 0.44 X10^3/uL (0.83-4.51); Absolute Neutrophil Count 5.3 X10^3/uL (2.0-7.7); Basophil# 0.02 X10^3/uL; Basophil% 0.3 % (0-1); Eosinophil# 0.23 X10^3/uL; Eosinophils% 3.4 % (0-5); Hemoglobin 7.9 g/dL (13.0-16.5); Lymphocyte # 0.44 X10^3/ul (0.83-4.51); Lymphocyte % 6.5 % (19-41); Mean Corp Hgb Conc 30.4 g/dL (32-36); Mean Corpuscular Hgb 26.6 pg (27.0-32.0); Mean Corpuscular Volume 87.5 fL (80-94); Mean Platelet Vol. 9.3 fl (6.2-12.0); Monocyte# 0.68 X10^3/uL; Monocyte% 10.1 % (0-10); NRBC Flagged by Analyzer 0 % (0-5); Neutrophil # 5.33 X10^3/uL (2.7-7.7); Neutrophil % 79.3 % (47-70); POSITIVE DIFFERENTIAL YES; Platelet Count 192 K/mm3 (150-450); RBC Distribution Width CV 17.3 % (11.6-14.6); RBC Distribution Width SD 53.3 fl (35.1-43.9); Red Blood Count 2.97 M/mm3 (4.6-6.2); White Blood Count 6.7 K/mm3 (4.4-11.0)
[2022-01-01 06:45] LABS: Bedside Glucose 123 mg/dL (74-106)
[2022-01-01 07:07] LABS: Anion Gap 6 (5-15); BUN 67 mg/dL (7-18); BUN/Creat Ratio 15.3 RATIO (10-20); Calcium,Total 8.3 mg/dL (8.5-10.1); Chloride 109 mmol/L (98-107); Creatinine, Serum 4.38 mg/dL (0.70-1.30); EST Glomerular Filtration Rate 14 mL/min (>60); Est Glom Filt Rate - Afr Amer 17 mL/min (>60); Estimated Creatinine Clearance 17.43 ml/min; Glucose 123 mg/dL (74-106); Potassium 3.9 mmol/L (3.5-5.1); Sodium Level 138 mmol/L (136-145)
[2022-01-01 07:08] LABS: Differential Indicated SCAN CRITERIA MET
[2022-01-01 07:24] LABS: Differential Comment SCANNED
--- NOTE | 2022-01-01 08:10 | PN.HOSP_ITS ---
Subjective Subjective Feels good. No abdominal pain. Tolerating PO. Objective Data Objective Data Vital Signs: Vital Signs Temp Pulse Resp BP Pulse Ox 36.1 C L 80 20 H 148/86 H 96 01/01/22 03:35 01/01/22 07:00 01/01/22 03:35 01/01/22 03:35 01/01/22 03:35 Oxygen Flow Rate (L/min) 2 Oxygen Delivery Method Nasal Cannula Weight: 136.8 kg Body Mass Index (BMI) 40.8 Intake & Output: Intake and Output for Last 24 Hours 12/30/21 12/31/21 01/01/22 23:59 23:59 23:59 Intake Total 2913.75 / 2913.75 3900 / 3900 200 / 200 Output Total 950 / 950 800 / 800 200 / 200 Balance 1963.75 / 1963.75 3100 / 3100 0 / 0 Lab / Micro Data Result Diagrams: 01/01/22 06:10 01/01/22 06:10 Labs: Laboratory Results - last 24 hr 12/28/21 09:25: Crossmatch See Detail 12/31/21 05:52: Iron 35 L, TIBC 254, Iron Saturation 13.8 L, Ferritin 55, Folate 11.10 12/31/21 08:25: Vitamin B12 1054 H 12/31/21 10:00: Hgb 7.9 L, Hct 26.1 L 12/31/21 11:45: POC Glucose 146 H 12/31/21 16:51: POC Glucose 138 H 12/31/21 21:41: POC Glucose 123 H 01/01/22 06:10: WBC 6.7, RBC 2.97 L, Hgb 7.9 L, Hct 26.0 L, MCV 87.5, MCH 26.6 L , MCHC 30.4 L, RDW Std Deviation 53.3 H, RDW Coeff of Shanell 17.3 H, Plt Count 192, MPV 9.3, Immature Gran % (Auto) 0.400, Neut % (Auto) 79.3 H, Lymph % (Auto) 6.5 L, [place] % (Auto) 10.1 H, Eos % (Auto) 3.4, Baso % (Auto) 0.3, Absolute Neuts (auto) 5.3, Absolute Lymphs (auto) 0.44 L, Nucleated RBC % 0, Differential Comment SCANNED 01/01/22 06:10: Sodium 138, Potassium 3.9, Chloride 109 H, Carbon Dioxide 23.0, Anion Gap 6, BUN 67 H, Creatinine 4.38 H, Estim Creat Clear Calc 17.43, Est GFR (MDRD) Af Amer 17 L, Est GFR (MDRD) Non-Af 14 L, BUN/Creatinine Ratio 15.3, Glucose 123 H, Calcium 8.3 L 01/01/22 06:39: POC Glucose 123 H Micro: Microbiology 12/29/21 00:25 Urine, Clean Catch Urine Culture - Final Mixed Gram Positive Organisms 12/27/21 21:05 Blood Culture (Wb) - Pic Blood Culture - Preliminary No growth in 48 hours. 12/27/21 15:15 Blood Culture (Wb) - Left Hand Blood Culture - Preliminary No growth in 48 hours. 12/27/21 09:35 Stool Stool Occult Blood ([facility]ER) - Final Physical Exam Const alert and no apparent distress Resp normal respiratory effort, no retractions, no use of accessory muscles and clear to auscultation bilaterally Cardio regular rate, regular rhythm, S1 normal heart sound and S2 normal heart sound GI normal to inspection, nondistended, normoactive bowel sounds, soft to palpation, non-tender and non-distended Assessment & Plan Assessment/Plan (1) Near syncope: (2) Acute kidney injury superimposed on CKD: PLAN: This 66-year-old gentleman admitted with generalized weakness, near fall near syncope with progressive worsening of shortness of breath, oliguria, declining of his functional capacity. 1. Near syncope/near fall * probably due to declining physical capacity: Patient stated that he felt dizzy lightheaded but his son caught him therefore he did not fall. No loss of consciousness. * Twelve-lead EKG is normal sinus rhythm troponin normal. Patient had recent echo on 12/03/2021 reported EF 55%, diastolic dysfunction LV systolic function normal, study technically study. * 12/28 hypotension: Hypotension has resolved. Patient required transient IV norepinephrine in the ICU. Hemodynamically better, transferred to PCU. Discussed with head porter baggage near syncope dizziness has resolved. 2. Acute kidney injury on CKD stage IV, * improving * per nephrology: suspected due to shock/ATN * single right kidney: Patient follows Dr. Tucker. His present BUN/creatinine 59/3.8, estimated creatinine clearance 20 mill per minute. Last creatinine 3.39 on 11/05, 3.14 on 09/25, gradually worsening. * As per ER physician, he also had vein mapping for anticipation of hemodialysis in the future. [employer] consulted. * 12/28: No urine output. [employer] follow-up. Increase in creatinine to 5.25. * 12/29: creatinine 6. DW Dr. Tucker, plan to monitor overnight and if continues to worsen, then plan for HD, unless he opts for hospice (seem unlikely he would opt for hospice) * 12/30: Cr 5.25, non-oliguric * 12/31: Cr 4.73 * 01/01: Cr 4.38 3. right renal cell cancer stage IV * status post left nephrectomy 2010: In 2018, CT scan showed right renal mass thereafter biopsy reported renal cell carcinoma as per the CT abdomen and pelvis patient has bilateral pulmonary nodules, cirrhotic liver with pe rihepatic ascites, and paracolic gutter, and pancreatic mets. Patient also has bilateral effusion, with bibasilar atelectasis, right worse than the left. I * In 2018 he was started on nivolumab and ipilimumab. Thereafter he developed pneumonitis and paroxysmal A. fib in 2018, converted on medical therapy. Patient also had immunotherapy axitinib, pembrolizumab which was held due to elevated creatinine. As mentioned in HPI, he was taken off prednisone in mid September because of increased swelling/retention of fluid * 12/29: DW Rhonda Rojas. Pulmonary lesions appear stable. Cannot determine if pancreatic lesions are metastatic deposits or not. 4. Acute pancreatitis with pancreatic mass on CT scan 12/28: * Diffuse abdominal pain with tenderness. Lipase 1182.LDH normal general surgery Dr. Cuello consulted. After review of CT scan although limited because contrast cannot be given, seems pancreatitis. Conservative management with n.p.o. except medications. * may be 2/2 PD-L1 inhibitory therapy * would need eventual biopsy of pancreatic masses to confirm malignancy or from pancreatitis. Follow up with Dr. Kuhn. 5. Acute on chronic diastolic heart failure, paroxysmal A. fib, bilateral PE in 2014: * As per CT patient enlarging pleural effusion with increased interstitial edema. BNP high 793. Started on Lasix 40 mill IV twice daily now and then Lasix drip as patient blood pressure is on lower side probably will not tolerate pulse diuretic. Continue metoprolol, and diltiazem CD with holding parameter. * 12/28: 1 dose Lasix as patient is short of breath and tachypneic. Lipid profile reviewed 6: Intermittent tachypnea and shortness of breath: Lasix 40 mg IV given. Midodrine 10 mg 3 times daily started patient has features of decompensated cirrhosis. 7. multiple chronic comorbidities include bilateral pulmonary embolism, hypertension, hypothyroidism, immunotherapy induced pneumonitis, right lower extremity DVT: Multiple comorbidities complicates the present care and expect difficult and delay recovery TSH 4.53, free T4 normal: Probably euthyroid sick syndrome 8. Acute blood loss anemia * stable * s/p 2 units PRBCs * monitor * 12/31: Hg 6.7, will TF 1 unit PRBCs. Check iron, TIBC, ferritin, B12, folate 9. VTE prophylaxis: SCDs DC home
[2022-01-01] MEDS: Allopurinol 100 MG Tablet PO (09:19)
[2022-01-01] MEDS: Metoprolol Tartrate 100 MG Tablet PO (09:19)
[2022-01-01] MEDS: Tamsulosin HCl 0.4 MG Capsule PO (09:19)
[2022-01-01] MEDS: dilTIAZem CD 120 MG Capsule PO (09:19)
[2022-01-01] MEDS: Finasteride 5 MG Tablet PO (09:20)
[2022-01-01] MEDS: 0.9% Saline Lock 10 ML Syringe IV (10:35)
[2022-01-01 11:45] LABS: Bedside Glucose 143 mg/dL (74-106)
--- NOTE | 2022-01-01 13:54 | PCM.DC ---
Discharge Instructions Diet Discharge Diet: Low fat / Low cholesterol and 2000 Calorie Control Diet Dressing / Incision Call your doctor if you observe: Fever of 101 or Higher and Shortness of breath Follow Up Care Test Results: Test results from this visit will be discussed in further detail at your follow-up appointment, if applicable. Discharge Plan Admission Admit Date/Time: 12/27/21 10:08 Primary Reason for Your Visit: YONY. pancreatitis Attending Provider: Natalio Lund Primary Care Provider: Houston Olson Consulting Providers: Moody Cuello ; Dominic Nails ; Mannie Singh ; Amara Dominguez NP ; Lana Tucker ; Jluis Torres ; Jeffrey Kuhn ; Mitchel Pereira ; Willy Moctezuma ; Abhay Cowart ; Antoine De La Cruz ; Saud No ; Ruby Rojas NP ; Jluis Eubanks ; Beck Simms Discharge Orders/Prescriptions Prescriptions: Continued clonidine HCl 0.1 mg tablet 0.1 mg PO BID RF: 0 metoprolol tartrate 100 mg tablet 100 mg PO BID Qty: 180 RF: 3 diltiazem HCl 120 mg capsule,extended release 24hr 120 mg PO BID Qty: 180 RF: 3 tamsulosin 0.4 MG capsule 0.4 mg PO BID RF: 0 allopurinol 100 MG tablet 100 mg PO DAILYCM RF: 0 finasteride 5 MG tablet 5 mg PO DAILY RF: 0 pantoprazole 40 mg tablet,delayed release (DR/EC) 40 mg PO DAILY Qty: 90 RF: 0 levothyroxine 100 mcg tablet 100 mcg PO DAILY 30 Days Qty: 30 RF: 2 Discontinued Xarelto 20 mg tablet 20 mg PO DAILY RF: 0 glipizide 5 mg tablet 1.25 mg PO PRN PRN (Reason: elevated sugar) RF: 0 furosemide [Lasix] 40 mg tablet 40 mg PO DAILY Qty: 90 RF: 3 Referrals / Follow Up: Jeffrey Kuhn MD [NON-STAFF] - 01/05/22 Houston Olson DO [Primary Care Provider] - Within 2 Weeks Disposition Disposition (needs filled in before D/C Order can be placed): Home, Self Care
--- NOTE | 2022-01-01 14:00 | DS.PCM_ITS ---
Providers Date of Admission: 12/27/21 Primary Care Physician: Dr. Houston Olson, Consultations 12/27/21 11:32 Consult: Nephrology Routine Consulting Provider: Lana Tucker Reason for Consult: YONY on CKD G4 EMERGENT Consult: No MD Notified: Yes Date Notified: 12/27/21 Time Notified: 11:33 Method of Notification: ED Physician Initiated Consult: Oncology/Hematology Routine Consulting Provider: [facility]) Reason for Consult: WIDELY METASTATIC RENAL Cancer, prognosis EMERGENT Consult: No MD Notified: Yes Date Notified: 12/27/21 Time Notified: 11:00 Method of Notification: ED Physician Initiated 12/27/21 12:32 Consult: Hospice / Palliative Care Routine Consulting Provider: Jluis Eubanks Reason for Consult: stage IV RCC WITH Decling health EMERGENT Consult: No MD Notified: Yes Date Notified: 12/27/21 Time Notified: 12:32 Method of Notification: Answering Service Comments:: spoke with Rocio 12/27/21 13:21 Consult: Hand Potter / Pulmonary Medicine Routine Consulting Provider: [facility] Reason for Consult: Hypotension, RCC , YONY ON CKD 4, HF EMERGENT Consult: No MD Notified: Yes Date Notified: 12/27/21 Time Notified: 13:21 Method of Notification: Text 12/28/21 08:43 Consult: General Surgery Routine Consulting Provider: Moody Cuello Reason for Consult: Abd pain, generalized. Pancreatic mass. Drop in HH EMERGENT Consult: No MD Notified: Yes Date Notified: 12/28/21 Time Notified: 08:43 Method of Notification: Verbal Reason For Visit: syncope Diagnosis Discharge Diagnosis (1) Near syncope: Status: Acute Code(s): R55 - Syncope and collapse (2) Acute kidney injury superimposed on CKD: Status: Chronic Code(s): N17.9 - Acute kidney failure, unspecified; N18.9 - Chronic kidney disease, unspecified Medications at Discharge Home Medications tamsulosin 0.4 mg PO BID 11/09/14 allopurinol 100 mg PO DAILYCM 05/03/15 finasteride 5 mg PO DAILY 05/03/15 pantoprazole 40 mg tablet,delayed release 40 mg PO DAILY #90 tab 02/02/20 levothyroxine 100 mcg tablet 100 mcg PO DAILY 30 Days #30 tablet 09/16/21 clonidine HCl 0.1 mg tablet 0.1 mg PO BID 09/25/21 diltiazem HCl 120 mg capsule,extended release 24 hr 120 mg PO BID #180 cap 11/07/21 metoprolol tartrate 100 mg tablet 100 mg PO BID #180 tab 11/07/21 Hospital Course Operations None Procedures None Summary of Care Provided Minutes Spent on Discharge: 32 Hospital Course: 1. Near syncope/near fall probably due to declining physical capacity: Patient stated that he felt dizzy lightheaded but his son caught him therefore he did not fall. No loss of consciousness. Twelve-lead EKG is normal sinus rhythm troponin normal. Patient had recent echo on 12/03/2021 reported EF 55%, diastolic dysfunction LV systolic function normal, study technically study. 12/28 hypotension: Hypotension has resolved. Patient required transient IV norepinephrine in the ICU. Hemodynamically better, transferred to PCU. Discussed with trust and estates paralegal near syncope dizziness has resolved. 2. Acute kidney injury on CKD stage IV, improving per nephrology: suspected due to shock/ATN single right kidney: Patient follows Dr. Tucker. His present BUN/creatinine 59/3.8, estimated creatinine clearance 20 mill per minute. Last creatinine 3.39 on 11/05, 3.14 on 09/25, gradually worsening. As per ER physician, he also had vein mapping for anticipation of hemodialysis in the future. Reservations Clerk consulted. 12/28: No urine output. Reservations Clerk follow-up. Increase in creatinine to 5.25. 12/29: creatinine 6. DW Dr. Tucker, plan to monitor overnight and if continues to worsen, then plan for HD, unless he opts for hospice (seem unlikely he would opt for hospice) 12/30: Cr 5.25, non-oliguric 12/31: Cr 4.73 01/01: Cr 4.38 3. right renal cell cancer stage IV status post left nephrectomy 2010: In 2019, CT scan showed right renal mass thereafter biopsy reported renal cell carcinoma as per the CT abdomen and pel vis patient has bilateral pulmonary nodules, cirrhotic liver with perihepatic ascites, and paracolic gutter, and pancreatic mets. Patient also has bilateral effusion, with bibasilar atelectasis, right worse than the left. I In 2019 he was started on nivolumab and ipilimumab. Thereafter he developed pneumonitis and paroxysmal A. fib in 2019, converted on medical therapy. Patient also had immunotherapy axitinib, pembrolizumab which was held due to elevated creatinine. As mentioned in HPI, he was taken off prednisone in mid September because of increased swelling/retention of fluid 12/29: SAMANTHA Rojas. Pulmonary lesions appear stable. Cannot determine if pancreatic lesions are metastatic deposits or not. 4. Acute pancreatitis with pancreatic mass on CT scan 12/28: Diffuse abdominal pain with tenderness. Lipase 1182.LDH normal general surgery Dr. Cuello consulted. After review of CT scan although limited because contrast cannot be given, seems pancreatitis. Conservative management with n.p.o. except medications. may be 2/2 PD-L1 inhibitory therapy would need eventual biopsy of pancreatic masses to confirm malignancy or from pancreatitis. Follow up with Dr. Kuhn. 5. Acute on chronic diastolic heart failure, paroxysmal A. fib, bilateral PE in 2014: As per CT patient enlarging pleural effusion with increased interstitial edema. BNP high 793. Started on Lasix 40 mill IV twice daily now and then Lasix drip as patient blood pressure is on lower side probably will not tolerate pulse diuretic. Continue metoprolol, and diltiazem CD with holding parameter. 12/28: 1 dose Lasix as patient is short of breath and tachypneic. Lipid profile reviewed 6: Intermittent tachypnea and shortness of breath: Lasix 40 mg IV given. Midodrine 10 mg 3 times daily started patient has features of decompensated cirrhosis. 7. multiple chronic comorbidities include bilateral pulmonary embolism, hypertension, hypothyroidism, immunotherapy induced pneumonitis, right lower extremity DVT: Multiple comorbidities complicates the present care and expect difficult and delay recovery TSH 4.53, free T4 normal: Probably euthyroid sick syndrome 8. Acute blood loss anemia stable s/p 2 units PRBCs monitor 12/31: Hg 6.7, will TF 1 unit PRBCs. Check iron, TIBC, ferritin, B12, folate 9. H/O VTE apixaban held given anemia. Pt has follow up with Dr. Kuhn on the . Follow up Hg, if stable then likely can be resumed. Weight / BMI Weight Weight: 136.8 kg Body Mass Index (BMI) 40.8 ABG / Lab / Microbiology Data Result Diagrams: 01/01/22 06:10 01/01/22 06:10 Laboratory: Laboratory Results - last 24 hr 12/31/21 16:51: POC Glucose 138 H 12/31/21 21:41: POC Glucose 123 H 01/01/22 06:10: WBC 6.7, RBC 2.97 L, Hgb 7.9 L, Hct 26.0 L, MCV 87.5, MCH 26.6 L , MCHC 30.4 L, RDW Std Deviation 53.3 H, RDW Coeff of Shanell 17.3 H, Plt Count 192, MPV 9.3, Immature Gran % (Auto) 0.400, Neut % (Auto) 79.3 H, Lymph % (Auto) 6.5 L, [place] % (Auto) 10.1 H, Eos % (Auto) 3.4, Baso % (Auto) 0.3, Absolute Neuts (auto) 5.3, Absolute Lymphs (auto) 0.44 L, Nucleated RBC % 0, Differential Comment SCANNED 01/01/22 06:10: Sodium 138, Potassium 3.9, Chloride 109 H, Carbon Dioxide 23.0, Anion Gap 6, BUN 67 H, Creatinine 4.38 H, Estim Creat Clear Calc 17.43, Est GFR (MDRD) Af Amer 17 L, Est GFR (MDRD) Non-Af 14 L, BUN/Creatinine Ratio 15.3, Glucose 123 H, Calcium 8.3 L 01/01/22 06:39: POC Glucose 123 H 01/01/22 11:23: POC Glucose 143 H Microbiology: Microbiology 12/29/21 00:25 Urine, Clean Catch Urine Culture - Final Mixed Gram Positive Organisms 12/27/21 21:05 Blood Culture (Wb) - Pic Blood Culture - Preliminary No growth in 48 hours. 12/27/21 15:15 Blood Culture (Wb) - Left Hand Blood Culture - Preliminary No growth in 48 hours. 12/27/21 09:35 Stool Stool Occult Blood (EDER) - Final D/C Instructions Discharge Diet: Low fat / Low cholesterol and 2000 Calorie Control Diet Call your doctor if you observe: Fever of 101 or Higher and Shortness of breath Meaningful Use Info Meaningful Use Diagnoses (Choose all that apply): None applicable Discharge Plan Admission Admit Date/Time: 12/27/21 10:08 Primary Reason for Your Visit: YONY. pancreatitis Attending Provider: Natalio Lund Primary Care Provider: Houston Olson Consulting Providers: Moody Cuello ; Dominic Nails ; Mannie Singh ; Amara Dominguez EARTH SCIENCE TEACHER ; Lana Tucker ; Jluis Torres ; Jeffrey Kuhn ; Mitchel Pereira ; Willy Moctezuma ; Abhay Cowart ; Antoine De La Cruz ; Saud No ; Ruby Rojas EARTH SCIENCE TEACHER ; Jluis Eubanks ; Beck Simms Discharge Orders/Prescriptions Prescriptions: Continued clonidine HCl 0.1 mg tablet 0.1 mg PO BID RF: 0 metoprolol tartrate 100 mg tablet 100 mg PO BID Qty: 180 RF: 3 diltiazem HCl 120 mg capsule,extended release 24hr 120 mg PO BID Qty: 180 RF: 3 tamsulosin 0.4 MG capsule 0.4 mg PO BID RF: 0 allopurinol 100 MG tablet 100 mg PO DAILYCM RF: 0 finasteride 5 MG tablet 5 mg PO DAILY RF: 0 pantoprazole 40 mg tablet,delayed release (DR/EC) 40 mg PO DAILY Qty: 90 RF: 0 levothyroxine 100 mcg tablet 100 mcg PO DAILY 30 Days Qty: 30 RF: 2 Discontinued Xarelto 20 mg tablet 20 mg PO DAILY RF: 0 glipizide 5 mg tablet 1.25 mg PO PRN PRN (Reason: elevated sugar) RF: 0 furosemide [Lasix] 40 mg tablet 40 mg PO DAILY Qty: 90 RF: 3 Referrals / Follow Up: Jeffrey Kuhn MD [NON-STAFF] - 01/05/22 Houston Olson DO [Primary Care Provider] - Within 2 Weeks Disposition Disposition (needs filled in before D/C Order can be placed): Home, Self Care Charges/Coding Visit Charges Inpatient E&M: 20504 Disch Hosp
--- NOTE | 2022-01-01 14:00 | PN.RENAL_ITS ---
Subjective Subjective doing well. Tolerated diet. Renal fxn continues to improve Objective Data Objective Data Vital Signs: Vital Signs Temp Pulse Resp BP Pulse Ox 98 F 74 18 139/68 H 98 01/01/22 09:15 01/01/22 09:19 01/01/22 09:15 01/01/22 09:15 01/01/22 10:23 Oxygen Flow Rate (L/min) 1 Oxygen Delivery Method Nasal Cannula Weight: 136.8 kg Body Mass Index (BMI) 40.8 Intake & Output: Intake and Output for Last 24 Hours 12/30/21 12/31/21 01/01/22 23:59 23:59 23:59 Intake Total 2913.75 / 2913.75 3900 / 3900 790 / 790 Output Total 950 / 950 800 / 800 200 / 200 Balance 1963.75 / 1963.75 3100 / 3100 590 / 590 Lab / Micro Data Result Diagrams: 01/01/22 06:10 01/01/22 06:10 Labs: Laboratory Results - last 24 hr 12/31/21 16:51: POC Glucose 138 H 12/31/21 21:41: POC Glucose 123 H 01/01/22 06:10: WBC 6.7, RBC 2.97 L, Hgb 7.9 L, Hct 26.0 L, MCV 87.5, MCH 26.6 L , MCHC 30.4 L, RDW Std Deviation 53.3 H, RDW Coeff of Shanell 17.3 H, Plt Count 192, MPV 9.3, Immature Gran % (Auto) 0.400, Neut % (Auto) 79.3 H, Lymph % (Auto) 6.5 L, [place] % (Auto) 10.1 H, Eos % (Auto) 3.4, Baso % (Auto) 0.3, Absolute Neuts (auto) 5.3, Absolute Lymphs (auto) 0.44 L, Nucleated RBC % 0, Differential Comment SCANNED 01/01/22 06:10: Sodium 138, Potassium 3.9, Chloride 109 H, Carbon Dioxide 23.0, Anion Gap 6, BUN 67 H, Creatinine 4.38 H, Estim Creat Clear Calc 17.43, Est GFR (MDRD) Af Amer 17 L, Est GFR (MDRD) Non-Af 14 L, BUN/Creatinine Ratio 15.3, Glucose 123 H, Calcium 8.3 L 01/01/22 06:39: POC Glucose 123 H 01/01/22 11:23: POC Glucose 143 H Micro: Microbiology 12/29/21 00:25 Urine, Clean Catch Urine Culture - Final Mixed Gram Positive Organisms 12/27/21 21:05 Blood Culture (Wb) - Pic Blood Culture - Preliminary No growth in 48 hours. 12/27/21 15:15 Blood Culture (Wb) - Left Hand Blood Culture - Preliminary No growth in 48 hours. 12/27/21 09:35 Stool Stool Occult Blood (EDER) - Final Physical Exam Const alert and oriented x3 Resp clear to auscultation bilaterally GI non-tender and non-distended GI Narrative: obese Palpation: soft Extremity Extremity Narrative: mild chronic edema Assessment & Plan Assessment/Plan (1) Acute kidney injury superimposed on CKD: PLAN: renal fxn continues to improve in solitary kidney. Creatinine 4.38 (2) CKD (chronic kidney disease) stage 4, GFR 15-29 ml/min: PLAN: in solitary kidney s/p nephrectomy for cancer with nephrotic proteinuria, hx chemotherapy induced renal failure. Baseline creatinine 2.6 eGFR 32cc/min to 3.39 eGFR 23cc/min (3) Acute pancreatitis: QUALIFIERS: Pancreatitis type: unspecified pancreatitis type Acute pancreatitis complication: unspecified Qualified Code(s): K85.90 - Acute pancreatitis without necrosis or infection, unspecified PLAN: improved, advance diet (4) Metastatic 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: QUALIFIERS: Laterality: unspecified laterality Qualified Code(s): C78.00 - Secondary malignant neoplasm of unspecified lung; C64.9 - Malignant neoplasm of unspecified kidney, except renal pelvis PLAN: hem/onc mgmt (5) Anemia: QUALIFIERS: Anemia type: unspecified type Qualified Code(s): D64.9 - Anemia, unspecified PLAN: hgb 8g (6) Bilateral pulmonary embolism: PLAN: DVT on chronic anticoagulation. Will likely need to resume
--- NOTE | 2022-01-01 15:02 | CASEMGMT ---
Addendum entered by Lee Ann Mata 01/01/22 15:29: Pt does not qualify for home oxygen. Gonzalo MCGUIRE CM Original Note: This RN CM to room to discuss discharge plan with pt/family. Pt states no concerns with going home and states has been getting around room without difficulty. Pt declines need for any further therapy/resources. Pt aware he can contact PCP if changes his mind on therapy after discharged home. Gonzalo MCGUIRE CM
== END 2022-01-01 16:05 | disposition home or self-care (01) | DRG 682 ==
LOC: ED 08:09 → PCU 10:33 → ICU 16:28 → PCU 16:28 → ICU 12-28 13:06 → PCU 12-28 13:06
PROVIDERS: Family Medicine; Hospitalist; Internal Medicine Critical Care Medicine; Internal Medicine Nephrology; Admitting Provider Internal Medicine; Emergency Provider Student in an Organized Health Care Education/Training Program; PCP Family Medicine
DX: N17.0 Acute kidney failure with tubular necrosis (principal); K85.91 Acute pancreatitis with uninfected necrosis, unspecified; I50.33 Acute on chronic diastolic (congestive) heart failure; C78.01 Secondary malignant neoplasm of right lung; C78.02 Secondary malignant neoplasm of left lung; D62 Acute posthemorrhagic anemia; R18.8 Other ascites; I13.0 Hypertensive heart and chronic kidney disease with heart failure and stage 1 through stage 4 chronic kidney disease, or unspecified chronic kidney disease; C64.1 Malignant neoplasm of right kidney, except renal pelvis; Z68.41 Body mass index [BMI] 40.0-44.9, adult; N18.4 Chronic kidney disease, stage 4 (severe); I48.0 Paroxysmal atrial fibrillation; E11.22 Type 2 diabetes mellitus with diabetic chronic kidney disease; K74.60 Unspecified cirrhosis of liver; E66.01 Morbid (severe) obesity due to excess calories; I95.9 Hypotension, unspecified; D64.9 Anemia, unspecified; E03.9 Hypothyroidism, unspecified; M10.9 Gout, unspecified; K59.00 Constipation, unspecified; R59.0 Localized enlarged lymph nodes; E07.81 Sick-euthyroid syndrome; Z90.5 Acquired absence of kidney; R53.1 Weakness; Z79.01 Long term (current) use of anticoagulants; Z79.84 Long term (current) use of oral hypoglycemic drugs; Z79.890 Hormone replacement therapy; Z86.711 Personal history of pulmonary embolism; Z86.718 Personal history of other venous thrombosis and embolism
CPT/HCPCS: 36415; 36569; 71045; 71250; 74176; 80048; 80053; 80061; 80076; 81001; 82274; 82607; 82728; 82746; 82962; 83540; 83550; 83605; 83615; 83690; 83735; 83880; 84100; 84439; 84443; 84484; 85014; 85018; 85025; 85045; 85610; 86850; 86900; 86901; 86920; 86922; 87040; 87086; 87088; 93005; 93970; 97110; 97162; 97166; 97530; 97535; 97802; 97803; 99251; 99285; J2997; J7040; J7050; J7120; P9016; A4216; G0463; J1940; J2405

== ENCOUNTER 2022-01-03 11:33 | Observation (INO) | payer MEDICARE, SELFPAY ==
[2022-01-03] VITALS (8 sets, daily range): BP systolic 148–187; BP diastolic 73–144; PULSE 72–84; RESP 14–17; TEMP 36.4–36.8; O2SAT 93–99; BMI 40.4; BMI 41.3
--- NOTE | 2022-01-03 11:56 | CT_ITS ---
We are attempting to reach an attending provider to discuss findings. An addendum with communication details will be sent when the communication is complete. STUDY: CT ABDOMEN AND PELVIS WITHOUT CONTRAST REASON FOR EXAM: Male, 66 years old. Pain RADIATION DOSAGE (If Supplied By Facility): CTDIvol = ( 32.57 ) mGy, DLP = ( 1777.99 ) mGycm TECHNIQUE: Transaxial images were obtained from the dome of the diaphragm to the symphysis pubis without oral contrast, and without intravenous contrast. Sagittal and coronal images were reconstructed. Individualized dose optimization techniques were used for this CT. COMPARISON: 12/27/2021 FINDINGS: The visualized lung bases are unremarkable. The visualized portions of the heart are within normal limits. Normal liver. Normal gallbladder and extrahepatic biliary system. Normal spleen. Stable nodular densities in the body and tail of the pancreas measuring 2.86 and 2.83 cm. These are not significantly changed since the previous study and are concerning for metastatic lesions. Normal bilateral adrenal glands. Polycystic kidney disease the largest cyst measures approximately 7 cm. There is heterogeneous lesion at the upper pole of the right kidney measures 4.5 x 3.6 cm is unchanged since the previous study has a nonspecific appearance and may still represent a neoplastic process. Normal visualized stomach. Normal small intestine. Normal colon. The appendix is visualized and appears normal. Normal abdominal aorta. Normal inferior vena cava. Normal retroperitoneum. Normal urinary bladder. There is free fluid in the abdomen at the left lower quadrant shows increased attenuation consistent with hemorrhage, it has not significantly changed since 12/27/2021 Normal abdominal wall. Normal osseous structures. CT/Abdomen/Pelvis without Cont IMPRESSION: Stable nodular densities in the body and tail of the pancreas measuring 2.86 and 2.83 cm. These are not significantly changed since the previous study and are concerning for metastatic lesions. There is also induration of the fat around the tail of the pancreas which could be due to inflammation or hemorrhage There is free fluid in the abdomen at the left lower quadrant shows increased attenuation consistent with hemorrhage, it has not significantly changed since 12/27/2021 Stable simple and hyperdense right renal cysts without significant change since the previous study a neoplastic process cannot be excluded. Follow-up in 6 months is recommended Electronically Signed: Lucila Martin MD at 12:52 EDT ,
--- NOTE | 2022-01-03 11:57 | ED.VIS.GI ---
HPI HPI - GI History of Present Illness Chief Complaint: Abd Pain Detail of Chief Complaint: Abdominal pain that started yesterday Informant: patient Abdominal Pain/Flank Pain Current Severity: 02/01 Narrative Narrative: Patient presents with abdominal pain that once again worsened since yesterday. Patient was just discharged 2 days ago from the hospital where he was admitted with pancreatitis. Patient has history of kidney cancer with left nephrectomy. His last chemo was March 2021. Patient denies any fevers. Patient has had some diarrhea. He denies blood in the stool or black tarry stool. Patient rates his pain a 6 or 7 out of 10. Patient states that he has not been able to eat since yesterday and has had frequent vomiting since yesterday. Prior similar symptoms: Yes PFSH PFSH Medical History Abnormal CT of the abdomen Anemia Atrial fibrillation with rapid ventricular response (07/04/19) Bilateral pulmonary embolism (11/19/14) Chronic diastolic (congestive) heart failure Deep vein thrombosis of right lower extremity (11/19/14) Encounter for education Essential (primary) hypertension Gout Hypothyroidism Metastatic 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 Obesity Pancreatic mass Paroxysmal atrial fibrillation Pneumonitis Renal cell cancer Type 2 diabetes mellitus Viral URI Home Medications tamsulosin 0.4 mg PO BID 11/09/14 [History Last Taken 08/05/19] allopurinol 100 mg PO DAILYCM 05/03/15 [History Last Taken 08/05/19] finasteride 5 mg PO DAILY 05/03/15 [History Last Taken 08/05/19] pantoprazole 40 mg tablet,delayed release 40 mg PO DAILY #90 tab 02/02/20 [Rx Last Taken Unknown] levothyroxine 100 mcg tablet 100 mcg PO DAILY 30 Days #30 tablet 09/16/21 [Rx Last Taken Unknown] clonidine HCl 0.1 mg tablet 0.1 mg PO BID 09/25/21 [History Last Taken Unknown] diltiazem HCl 120 mg capsule,extended release 24 hr 120 mg PO BID #180 cap 11/07/21 [Rx Last Taken Unknown] metoprolol tartrate 100 mg tablet 100 mg PO BID #180 tab 11/07/21 [Rx Last Taken Unknown] ondansetron [Zofran ODT] 4 mg PO Q6H PRN 01/03/22 [History Last Taken Unknown] Allergy/AdvReac Type Severity Reaction Status Date / Time Penicillins [PCN] Allergy PT UNSURE Verified 01/03/22 11:37 OF REACTION Family History Mother Diabetes Heart disease Kidney disease Hypertension CVA (cerebral vascular accident) Father Heart disease Surgical History History of colonoscopy (2018) History of left nephrectomy (2010) History of total hip arthroplasty (04/2015) Social History Smoking Status: Never smoker second hand exposure: No alcohol intake: never substance use type: does not use caffeine: Yes frequency: does not exercise ROS ROS ED Constitutional Constitutional ED: Reports systems reviewed and no addt'l complaints, except as documented; Denies body ache(s), change in weight or chills Eyes Eyes: Denies acute decrease in peripheral vision, change in vision, double vision or loss of vision ENT ENT ED: Reports none; Denies ear pain, lip swelling, loss taste/smell, neck pain, otalgia or sore throat Cardiovascular Cardiovascular: Reports none; Denies abdominal pain, chest pain with activity, leg edema, lightheadedness, palpitations, rapid heart rate or syncope Respiratory/Chest Respiratory/Chest: Reports none; Denies change in mental status, dry cough, dyspnea, hemoptysis, shortness of breath at rest or shortness of breath with exertion Gastrointestinal Gastrointestinal: Reports none, abdominal pain, diarrhea, nausea and vomiting; Denies change in stool character, hematemesis, hematochezia, melena or rectal bleeding Genitourinary Genitourinary ED: Reports none; Denies abdominal discomfort, anuria, dysuria, genital pain or polyuria Musculoskeletal Musculoskeletal: Reports none; Denies arthralgias, back pain, difficulty walking, extremity pain, muscle weakness or myalgias Integumentary Reports none; Denies abscess or rash Neurologic Neurologic: Reports none; Denies abnormal gait, confusion, focal weakness, frequent falls, headache(s), loss of vision, numbness, paresthesias, radicular pain, vertigo or weakness Psychiatric Psychiatric: Reports systems reviewed and no addt'l complaints, except as documented and none; Denies behavioral changes, confusion, difficulty concentrating, hallucinations, suicidal ideation, tactile hallucinations or visual hallucinations Endocrine Endocrinology: Denies none, cold intolerance, excessive sweating, fatigue or heat intolerance Hematologic/Lymphatic Hematologic/Lymphatic: Reports none; Denies anemia, easy bleeding or easy bruising Allergic/Immunologic Allergic/Immunologic ED: Denies as per HPI, none, lip swelling, mouth swelling, throat swelling, tongue swelling or hives EXAM Physical Exam Const Vital Signs: 01/03/22 11:35 01/03/22 13:40 Temperature 97.8 F Temperature Source Temporal Pulse Rate 79 79 Respiratory Rate 16 Blood Pressure 187/89 H 148/73 H Blood Pressure Mean 121 98 Pulse Ox 95 99 Oxygen Delivery Method Room Air Positive well nourished and well developed General Appearance ED: well developed and NAD HEENT Reports TM's clear and moist mucous membranes normocephalic and atraumatic; Negative for trauma or tenderness Tympanic Membrane ED: Yes TM's clear Eyes PERRL and EOMs intact bilaterally General Eye ED: Negative for pale conjunctiva or scleral icterus Neck no lymphadenopathy, supple and no JVD General: Negative for tenderness Chest Wall inspection of chest normal and palpation of chest normal Chest: Negative for tenderness Resp normal respiratory effort and clear to auscultation bilaterally Effort and Inspection: Negative for respiratory distress or pain with movement Auscultation: Negative for rhonchi, wheezes or diminished lung sounds Cardio regular rate, regular rhythm, S1 normal heart sound, S2 normal heart sound and no murmurs Peripheral Pulses: pulses 2+ throughout GI normal to inspection, nondistended, normoactive bowel sounds, soft to palpation, non-distended and no masses GI Narrative: Patient with tenderness to the right lower quadrant as well as the epigastric region and otherwise diffusely as well. There is no rebound, rigidity, or peritoneal signs. He does have some guarding. Back/Spine no CVA tenderness and no thoracic nor lumbar tenderness Extremity normal to inspection General Extremety ED: Negative for edema General Extremity: Negative for edema Neuro oriented x3, CN's II-XII intact bilaterally, no sensory deficits noted and gait normal Sensorium / Orientation: awake, alert, oriented to person, oriented to place and oriented to time Motor Exam: strength 5/5 throughout and strength abnormal Psych mental status grossly normal Skin no rashes or lesions noted and no wounds MDM MDM MDM Narrative Medical decision making narrative: The line established on arrival. Patient was given Dilaudid and Zofran. Lab work-up showed a white count of 9.2 with a hemoglobin of 9. Chemistries unremarkable. His total bilirubin was elevated 2.6 and his AST was 66. Lactate was normal. Lipase was normal at 225. CT scan of the abdomen showed left lower quadrant fluid with increased attenuation consistent with hemorrhage but looks stable when compared with CT from December 27. Patient also had a mass in the tail and body of pancreas measuring about 2.8 cm. I discussed case with hospitalist as patient continues to complain of pain and nausea. Hospitalist recommended transfer to tertiary care center as patient had a complicated course while in the hospital and will likely require interventions beyond our capabilities here at [facility]. Patient would like to go to [facility] and I discussed case with [facility] hospitalist who accepted transfer of patient. Patient will be transferred to [facility] for definitive care. Lab Data Attestation: I reviewed the patient's lab results. Labs: Laboratory Results - last 24 hr 01/03/22 01/03/22 01/03/22 11:55 11:55 11:55 WBC 9.2 RBC 3.36 L Hgb 9.0 L Hct 29.6 L MCV 88.1 MCH 26.8 L MCHC 30.4 L RDW Std Deviation 55.0 H RDW Coeff of Shanell 18.1 H Plt Count 181 MPV 10.7 Immature Gran % (Auto) 0.900 Neut % (Auto) 83.2 H Lymph % (Auto) 5.1 L Logan % (Auto) 8.6 Eos % (Auto) 2.0 Baso % (Auto) 0.2 Absolute Neuts (auto) 7.7 Absolute Lymphs (auto) 0.47 L Nucleated RBC % 0 Platelet Estimate ADEQUATE Anisocytosis 1+ Sodium 139 Potassium 4.4 Chloride 110 H Carbon Dioxide 20.0 L Anion Gap 9 BUN 60 H Creatinine 3.89 H Estim Creat Clear Calc 19.63 Est GFR (MDRD) Af Amer 20 L Est GFR (MDRD) Non-Af 17 L BUN/Creatinine Ratio 15.4 Glucose 123 H Lactic Acid 0.5 Calcium 9.1 Total Bilirubin 2.60 H AST 66 H ALT 35 Alkaline Phosphatase 63 Total Protein 6.5 Albumin 3.0 L Globulin 3.5 Albumin/Globulin Ratio 0.9 Lipase 225 Radiography Diagnostic Testing: Clinical Impression(s) from Imaging Studies Abdomen/Pelvis CT 01/03/22 11:56 IMPRESSION: Stable nodular densities in the body and tail of the pancreas measuring 2.86 and 2.83 cm. These are not significantly changed since the previous study and are concerning for metastatic lesions. There is also induration of the fat around the tail of the pancreas which could be due to inflammation or hemorrhage There is free fluid in the abdomen at the left lower quadrant shows increased attenuation consistent with hemorrhage, it has not significantly changed since 12/27/2021 Stable simple and hyperdense right renal cysts without significant change since the previous study a neoplastic process cannot be excluded. Follow-up in 6 months is recommended Electronically Signed: Lucila Martin MD at 12:52 EDT , ADDENDUM: 01/03/22 1315 IMPRESSION: Stable nodular densities in the body and tail of the pancreas measuring 2.86 and 2.83 cm. These are not significantly changed since the previous study and are concerning for metastatic lesions. There is also induration of the fat around the tail of the pancreas which could be due to inflammation or hemorrhage There is free fluid in the abdomen at the left lower quadrant shows increased attenuation consistent with hemorrhage, it has not significantly changed since 12/27/2021 Stable simple and hyperdense right renal cysts without significant change since the previous study a neoplastic process cannot be excluded. Follow-up in 6 months is recommended N.B. : The above Results were Read Back by Lucila Martin MD to Tayo Cannon MD, and understanding confirmed on 01/03/2022 13:08:04 (ET). Electronically Signed: Lucila Martin MD at 12:52 EDT , Discharge Plan Triage Chief Complaint: Abd Pain ED Provider: Tayo Cannon Dx/Rx/DC Orders Clinical Impression: Abdominal pain, Pancreatic mass, Chronic kidney failure, History of kidney cancer Prescriptions: No Action clonidine HCl 0.1 mg tablet 0.1 mg PO BID RF: 0 metoprolol tartrate 100 mg tablet 100 mg PO BID Qty: 180 RF: 3 diltiazem HCl 120 mg capsule,extended release 24hr 120 mg PO BID Qty: 180 RF: 3 tamsulosin 0.4 MG capsule 0.4 mg PO BID RF: 0 allopurinol 100 MG tablet 100 mg PO DAILYCM RF: 0 finasteride 5 MG tablet 5 mg PO DAILY RF: 0 ondansetron [Zofran ODT] 4 mg Tablet,Disintegrating 4 mg PO Q6H PRN (Reason: Nausea) RF: 0 pantoprazole 40 mg tablet,delayed release (DR/EC) 40 mg PO DAILY Qty: 90 RF: 0 levothyroxine 100 mcg tablet 100 mcg PO DAILY 30 Days Qty: 30 RF: 2 Primary Care Provider: Houston Olson Referrals: Houston Olson DO [Primary Care Provider] - Disposition Disposition: DC/Tx to Another Type of HCF
[2022-01-03] MEDS: HYDROmorphone 1 MG/ML Syringe IV (12:14)
[2022-01-03] MEDS: Ondansetron 4 MG/2 ML Vial IV (12:14)
[2022-01-03 12:15] LABS: Absolute Lymphocyte Count 0.47 X10^3/uL (0.83-4.51); Absolute Neutrophil Count 7.7 X10^3/uL (2.0-7.7); Basophil# 0.02 X10^3/uL; Basophil% 0.2 % (0-1); Eosinophil# 0.18 X10^3/uL; Hematocrit 29.6 % (40-54); Lymphocyte # 0.47 X10^3/ul (0.83-4.51); Lymphocyte % 5.1 % (19-41); Mean Corp Hgb Conc 30.4 g/dL (32-36); Mean Corpuscular Hgb 26.8 pg (27.0-32.0); Mean Corpuscular Volume 88.1 fL (80-94); Mean Platelet Vol. 10.7 fl (6.2-12.0); Monocyte# 0.79 X10^3/uL; Monocyte% 8.6 % (0-10); NRBC Flagged by Analyzer 0 % (0-5); Neutrophil # 7.66 X10^3/uL (2.7-7.7); Neutrophil % 83.2 % (47-70); POSITIVE COUNT YES; POSITIVE DIFFERENTIAL YES; Platelet Count 181 K/mm3 (150-450); RBC Distribution Width CV 18.1 % (11.6-14.6); Red Blood Count 3.36 M/mm3 (4.6-6.2); White Blood Count 9.2 K/mm3 (4.4-11.0)
[2022-01-03] MEDS: 0.9% Normal Saline 1,000 ML 125 ML IV ×2 (12:15→21:11)
[2022-01-03 12:18] LABS: Differential Indicated SCAN CRITERIA MET
[2022-01-03 12:34] LABS: Anisocytosis 1+; Platelet Estimate ADEQUATE (ADEQ)
[2022-01-03 12:36] LABS: ALB/GLOB Ratio 0.9 RATIO (0.9-2.4); AST(SGOT) 66 U/L (15-37); Alanine Aminotransfer ALT/SGPT 35 U/L (16-61); Alkaline Phosphatase 63 U/L (45-117); Anion Gap 9 (5-15); BUN 60 mg/dL (7-18); BUN/Creat Ratio 15.4 RATIO (10-20); Calcium,Total 9.1 mg/dL (8.5-10.1); Chloride 110 mmol/L (98-107); Creatinine, Serum 3.89 mg/dL (0.70-1.30); EST Glomerular Filtration Rate 17 mL/min (>60); Est Glom Filt Rate - Afr Amer 20 mL/min (>60); Estimated Creatinine Clearance 19.63 ml/min; Globulin 3.5 g/dL (2.2-4.2); Glucose 123 mg/dL (74-106); Lipase 225 U/L (73-393); Potassium 4.4 mmol/L (3.5-5.1); Protein, Total 6.5 g/dL (6.4-8.2); Sodium Level 139 mmol/L (136-145)
[2022-01-03 12:37] LABS: Lactic Acid 0.5 mmol/L (0.4-1.9)
--- NOTE | 2022-01-03 14:23 | NURSING ---
DR RINA HUFFMAN
--- NOTE | 2022-01-03 14:40 | NURSING ---
CALLED [facility] ABOUT TRANSFER, TALKED TO HUNTER HUGHES
--- NOTE | 2022-01-03 17:14 | NURSING ---
CALLED [facility], TALKED TO ALLIE, NO BED YET
--- NOTE | 2022-01-03 20:33 | ED.RN ---
dr boyle aware of elevated bp and missed home doses x 3 bp meds. He will also need admitted since still no bed at [facility]. Dr Boyle entering orders now.
--- NOTE | 2022-01-03 21:05 | NURSING ---
CALLED [facility] AT [address] STILL NO BED AVAILABLE.
[2022-01-03] MEDS: dilTIAZem 25 MG/5 ML Vial 20 MG IV BOLUS (21:09)
[2022-01-03] MEDS: Metoprolol Tartrate 5 MG/5 ML Vial IV (21:10)
--- NOTE | 2022-01-03 21:21 | HP.PCM.HOS_ITS ---
HPI - General General Date of Admission: 01/03/22 HPI Narrative KRISSY SAAVEDRA, is a 66 M with a significant history of metastatic kidney cancer ; left nephrectomy: atrial fibrillation; hypothyroidism; type 2 diabetes mellitus and who presents to the emergency department with abdominal pain that started a day before presentation. Of note patient was admitted to our hospital and discharge on 01/01/2022. Reportedly next day after discharge his pain returned His pain is constant. He rated pain as 8-10 on a scale of 1-10. The pain is aggravated with lying on his abdomen or his side. He denies any ameliorating factors to the pain. Associated with symptoms is nausea; vomiting and diarrhea. Patient rates his pain as a 6 or 7 on a scale of 1-10. Case was discussed with patient since [facility] and patient has been accepted. However patient is awaiting for bed at [facility] so a decision was made for patient to stay at [facility] while awaiting [facility] bed. [facility] Medical History Abnormal CT of the abdomen Anemia Atrial fibrillation with rapid ventricular response (07/04/19) Bilateral pulmonary embolism (11/19/14) Cancer Chronic diastolic (congestive) heart failure Coronary artery disease Deep vein thrombosis of right lower extremity (11/19/14) Diabetes Encounter for education Essential (primary) hypertension GERD (gastroesophageal reflux disease) Gout Hypertension Hypothyroidism Hypothyroidism Metastatic 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 Obesity Pancreatic mass Pancreatitis Paroxysmal atrial fibrillation Pneumonitis Renal cell cancer Type 2 diabetes mellitus Viral URI Home Medications tamsulosin 0.4 mg PO BID 11/09/14 [History Last Taken 08/05/19] allopurinol 100 mg PO DAILYCM 05/03/15 [History Last Taken 08/05/19] finasteride 5 mg PO DAILY 05/03/15 [History Last Taken 08/05/19] pantoprazole 40 mg tablet,delayed release 40 mg PO DAILY #90 tab 02/02/20 [Rx Last Taken Unknown] levothyroxine 100 mcg tablet 100 mcg PO DAILY 30 Days #30 tablet 09/16/21 [Rx Last Taken Unknown] clonidine HCl 0.1 mg tablet 0.1 mg PO BID 09/25/21 [History Last Taken Unknown] diltiazem HCl 120 mg capsule,extended release 24 hr 120 mg PO BID #180 cap 11/07/21 [Rx Last Taken Unknown] metoprolol tartrate 100 mg tablet 100 mg PO BID #180 tab 11/07/21 [Rx Last Taken Unknown] ondansetron [Zofran ODT] 4 mg PO Q6H PRN 01/03/22 [History Last Taken Unknown] Allergy/AdvReac Type Severity Reaction Status Date / Time Penicillins [PCN] Allergy PT UNSURE Verified 01/03/22 11:37 OF REACTION Family History Mother Diabetes Heart disease Kidney disease Hypertension CVA (cerebral vascular accident) Father Heart disease Surgical History History of colonoscopy (2018) History of left nephrectomy (2010) History of total hip arthroplasty (04/2015) Social History Smoking Status: Never smoker second hand exposure: No alcohol intake: never substance use type: does not use caffeine: Yes frequency: does not exercise ROS ROS Narrative Pertinent positives and pertinent negatives as noted in HPI. All other systems were reviewed and are negative. Vital Signs Vital Signs Vital Signs: 01/03/22 11:35 01/03/22 13:40 01/03/22 15:57 Temperature 97.8 F Temperature Source Temporal Pulse Rate 79 79 76 Respiratory Rate 16 14 Blood Pressure 187/89 H 148/73 H 152/83 H Blood Pressure Mean 121 98 106 Pulse Ox 95 99 99 Oxygen Delivery Method Room Air Room Air 01/03/22 20:25 01/03/22 21:12 Temperature Temperature Source Pulse Rate 77 84 Respiratory Rate 17 17 Blood Pressure 180/144 H 157/76 H Blood Pressure Mean 156 103 Pulse Ox 93 96 Oxygen Delivery Method Nasal Cannula Room Air Weight Weight: 131.542 kg Body Mass Index (BMI) 40.4 Physical Exam Narrative Physical exam: General: Well-nourished, well-developed. Head: Normocephalic, atraumatic, no tenderness Eyes: Vision is grossly intact. EOMI ENT, no trauma, moist mucous membranes, no rhinorrhea Neck: Nontender, full range of motion, no spinal tenderness, deformities, step- off CVS: Regular rate and rhythm. S1-S2 present. No murmur, gallop or rub. 3+ bilateral feet edema Respiratory : clear to auscultation bilaterally, chest wall nontender, no wheezing Abdomen: Pitting edema on abdomen wall. Soft, nontender, nondistended, hyperactive bowel sounds. : Deferred Back: Nontender, no CVA tenderness, no midline spinal tenderness, deformities, step-offs Extremities: Nontender full range of motion, no trauma Skin: Normal color, no trauma, abrasions Neuro: Alert, oriented, cranial nerves II through XII grossly intact. Psychiatry: Normal mood. Normal affect. Not depressed. Not anxious. Results Lab / Micro Data Result Diagrams: 01/03/22 11:55 01/03/22 11:55 Labs: Laboratory Results - last 24 hr 01/03/22 11:55: WBC 9.2, RBC 3.36 L, Hgb 9.0 L, Hct 29.6 L, MCV 88.1, MCH 26.8 L , MCHC 30.4 L, RDW Std Deviation 55.0 H, RDW Coeff of Shanell 18.1 H, Plt Count 181, MPV 10.7, Immature Gran % (Auto) 0.900, Neut % (Auto) 83.2 H, Lymph % (Auto) 5.1 L, [place] % (Auto) 8.6, Eos % (Auto) 2.0, Baso % (Auto) 0.2, Absolute Neuts (auto) 7.7, Absolute Lymphs (auto) 0.47 L, Nucleated RBC % 0, Platelet Estimate ADEQUATE, Anisocytosis 1+ 01/03/22 11:55: Sodium 139, Potassium 4.4, Chloride 110 H, Carbon Dioxide 20.0 L , Anion Gap 9, BUN 60 H, Creatinine 3.89 H, Estim Creat Clear Calc 19.63, Est GFR (MDRD) Af Amer 20 L, Est GFR (MDRD) Non-Af 17 L, BUN/Creatinine Ratio 15.4, Glucose 123 H, Calcium 9.1, Total Bilirubin 2.60 H, AST 66 H, ALT 35, Alkaline Phosphatase 63, Total Protein 6.5, Albumin 3.0 L, Globulin 3.5, Albumin/Globulin Ratio 0.9, Lipase 225 01/03/22 11:55: Lactic Acid 0.5 Micro: Microbiology 01/03/22 15:55 Nasal Secretion SARS-CoV-2 & FLU Antigen (Rapid) - Final Radiology Impression Abdomen/Pelvis CT 01/03/22 11:56 IMPRESSION: Stable nodular densities in the body and tail of the pancreas measuring 2.86 and 2.83 cm. These are not significantly changed since the previous study and are concerning for metastatic lesions. There is also induration of the fat around the tail of the pancreas which could be due to inflammation or hemorrhage There is free fluid in the abdomen at the left lower quadrant shows increased attenuation consistent with hemorrhage, it has not significantly changed since 12/27/2021 Stable simple and hyperdense right renal cysts without significant change since the previous study a neoplastic process cannot be excluded. Follow-up in 6 months is recommended Electronically Signed: Lucila Martin MD at 12:52 EDT , ADDENDUM: 01/03/22 1315 IMPRESSION: Stable nodular densities in the body and tail of the pancreas measuring 2.86 and 2.83 cm. These are not significantly changed since the previous study and are concerning for metastatic lesions. There is also induration of the fat around the tail of the pancreas which could be due to inflammation or hemorrhage There is free fluid in the abdomen at the left lower quadrant shows increased attenuation consistent with hemorrhage, it has not significantly changed since 12/27/2021 Stable simple and hyperdense right renal cysts without significant change since the previous study a neoplastic process cannot be excluded. Follow-up in 6 months is recommended N.B. : The above Results were Read Back by Lucila Martin MD to Tayo Cannon MD, and understanding confirmed on 01/03/2022 13:08:04 (ET). Electronically Signed: Lucila Martin MD at 12:52 EDT , Assessment & Plan Assessment/Plan (1) Pancreatic mass: PLAN: Metastatic kidney cancer. Abdomen and pelvis CT was visualized and independently interpreted and I agree radiology interpretation above Symptomatic treatment with IV Dilaudid and morphine. Gentle IV hydration. Cautious use of IV fluids secondary to edema. N.p.o. for nausea and vomiting. A. fib Observe on MedSurg telemetry On home metoprolol and Cardizem p.o. In the setting of n.p.o. metoprolol IV [id number] ordered. CKD stage IV Creatinine presentation was 3.89. Review of old records shows that kidney disease is progressing to likely end- stage renal disease. Not in shellie YONY. Trend BMP. History of PE: His Eliquis was held on last admission following anemia with plan to resume if hemoglobin is stable and after seeing his oncologist on 01/05/2022. Also abdominal CT continue to show hemorrhage some however stable. We will continue to hold Eliquis at this time. DVT prophylaxis: SCDs ordered Charges/Coding Visit Charges OBSV E&M: 36314 Initial observation care L3
[2022-01-04] VITALS (19 sets, daily range): BP systolic 135–183; BP diastolic 52–73; PULSE 68–88; RESP 18; TEMP 36.5–36.6; O2SAT 96–100
[2022-01-04] MEDS: 0.9% Saline Lock 10 ML Syringe IV (00:28)
[2022-01-04] MEDS: 0.9% Normal Saline 1,000 ML 50 ML IV ×2 (00:29→15:54)
[2022-01-04] MEDS: Metoprolol Tartrate 5 MG/5 ML Vial IV ×4 (00:36→19:01)
[2022-01-04 05:14] LABS: Absolute Lymphocyte Count 0.59 X10^3/uL (0.83-4.51); Absolute Neutrophil Count 5.8 X10^3/uL (2.0-7.7); Basophil# 0.02 X10^3/uL; Basophil% 0.3 % (0-1); Eosinophil# 0.23 X10^3/uL; Eosinophils% 3.1 % (0-5); Hematocrit 27.6 % (40-54); Hemoglobin 8.4 g/dL (13.0-16.5); Lymphocyte # 0.59 X10^3/ul (0.83-4.51); Lymphocyte % 7.9 % (19-41); Mean Corp Hgb Conc 30.4 g/dL (32-36); Mean Corpuscular Volume 88.7 fL (80-94); Mean Platelet Vol. 9.3 fl (6.2-12.0); Monocyte# 0.81 X10^3/uL; Monocyte% 10.8 % (0-10); NRBC Flagged by Analyzer 0 % (0-5); Neutrophil # 5.77 X10^3/uL (2.7-7.7); POSITIVE DIFFERENTIAL YES; Platelet Count 207 K/mm3 (150-450); RBC Distribution Width CV 18.1 % (11.6-14.6); RBC Distribution Width SD 55.8 fl (35.1-43.9); Red Blood Count 3.11 M/mm3 (4.6-6.2); White Blood Count 7.5 K/mm3 (4.4-11.0)
[2022-01-04 05:19] LABS: Differential Indicated SCAN CRITERIA MET
[2022-01-04 05:30] LABS: ALB/GLOB Ratio 0.8 RATIO (0.9-2.4); AST(SGOT) 34 U/L (15-37); Alanine Aminotransfer ALT/SGPT 27 U/L (16-61); Albumin, Serum 2.5 g/dL (3.2-5.0); Alkaline Phosphatase 53 U/L (45-117); Anion Gap 7 (5-15); BUN 58 mg/dL (7-18); BUN/Creat Ratio 17.6 RATIO (10-20); Calcium,Total 8.3 mg/dL (8.5-10.1); Chloride 114 mmol/L (98-107); EST Glomerular Filtration Rate 20 mL/min (>60); Est Glom Filt Rate - Afr Amer 24 mL/min (>60); Estimated Creatinine Clearance 23.14 ml/min; Globulin 3.1 g/dL (2.2-4.2); Glucose 95 mg/dL (74-106); Potassium 3.8 mmol/L (3.5-5.1); Protein, Total 5.6 g/dL (6.4-8.2); Sodium Level 142 mmol/L (136-145)
[2022-01-04 06:14] LABS: Anisocytosis 1+; Differential Comment SCANNED; Hypochromasia 1+
--- NOTE | 2022-01-04 11:23 | PN.HOSP_ITS ---
Subjective Subjective Patient states his abdominal pain is better. Reports pain was diffuse and abdomen is still slightly tender all over but he points close noticeably to the left side of his abdomen. No further nausea or vomiting through the night. Patient states he has had significant diarrhea. He does indicate we gave him quite a bit of medication to make him have a bowel movement prior to discharge here but he had a significant amount of watery diarrhea approximately every 2 hours since he got admitted. He is high risk for C. difficile with his history of cancer. Patient will try to like to eat something today. Clear liquid diet was ordered. Objective Data Objective Data Vital Signs: Vital Signs Temp Pulse Resp BP Pulse Ox 97.8 F 84 18 150/65 H 99 01/04/22 05:06 01/04/22 07:33 01/04/22 05:06 01/04/22 05:16 01/04/22 05:06 Oxygen Flow Rate (L/min) 2 Oxygen Delivery Method Nasal Cannula Weight: 134.354 kg Body Mass Index (BMI) 41.3 Intake & Output: Intake and Output for Last 24 Hours 01/02/22 01/03/22 01/04/22 23:59 23:59 23:59 Intake Total 1000 / 1000 412.5 / 412.5 Balance 1000 / 1000 412.5 / 412.5 Lab / Micro Data Result Diagrams: 01/04/22 05:05 01/04/22 05:05 Labs: Laboratory Results - last 24 hr 01/03/22 11:55: WBC 9.2, RBC 3.36 L, Hgb 9.0 L, Hct 29.6 L, MCV 88.1, MCH 26.8 L , MCHC 30.4 L, RDW Std Deviation 55.0 H, RDW Coeff of Shanell 18.1 H, Plt Count 181, MPV 10.7, Immature Gran % (Auto) 0.900, Neut % (Auto) 83.2 H, Lymph % (Auto) 5.1 L, [place] % (Auto) 8.6, Eos % (Auto) 2.0, Baso % (Auto) 0.2, Absolute Neuts (auto) 7.7, Absolute Lymphs (auto) 0.47 L, Nucleated RBC % 0, Platelet Estimate ADEQUATE, Anisocytosis 1+ 01/03/22 11:55: Sodium 139, Potassium 4.4, Chloride 110 H, Carbon Dioxide 20.0 L , Anion Gap 9, BUN 60 H, Creatinine 3.89 H, Estim Creat Clear Calc 19.63, Est GFR (MDRD) Af Amer 20 L, Est GFR (MDRD) Non-Af 17 L, BUN/Creatinine Ratio 15.4, Glucose 123 H, Calcium 9.1, Total Bilirubin 2.60 H, AST 66 H, ALT 35, Alkaline Phosphatase 63, Total Protein 6.5, Albumin 3.0 L, Globulin 3.5, Albumin/Globulin Ratio 0.9, Lipase 225 01/03/22 11:55: Lactic Acid 0.5 01/04/22 05:05: WBC 7.5, RBC 3.11 L, Hgb 8.4 L, Hct 27.6 L, MCV 88.7, MCH 27.0, MCHC 30.4 L, RDW Std Deviation 55.8 H, RDW Coeff of Shanell 18.1 H, Plt Count 207, MPV 9.3, Immature Gran % (Auto) 0.900, Neut % (Auto) 77.0 H, Lymph % (Auto) 7.9 L, [place] % (Auto) 10.8 H, Eos % (Auto) 3.1, Baso % (Auto) 0.3, Absolute Neuts (auto) 5.8, Absolute Lymphs (auto) 0.59 L, Nucleated RBC % 0, Differential Comment SCANNED, Hypochromasia 1+, Anisocytosis 1+ 01/04/22 05:05: Sodium 142, Potassium 3.8, Chloride 114 H, Carbon Dioxide 21.0, Anion Gap 7, BUN 58 H, Creatinine 3.30 H, Estim Creat Clear Calc 23.14, Est GFR (MDRD) Af Amer 24 L, Est GFR (MDRD) Non-Af 20 L, BUN/Creatinine Ratio 17.6, Glucose 95, Calcium 8.3 L, Total Bilirubin 2.30 H, AST 34, ALT 27, Alkaline Phosphatase 53, Total Protein 5.6 L, Albumin 2.5 L, Globulin 3.1, Albumin/Globulin Ratio 0.8 L Micro: Microbiology 01/03/22 15:55 Nasal Secretion SARS-CoV-2 & FLU Antigen (Rapid) - Final Radiography Diagnostic Testing: Radiology Impression Abdomen/Pelvis CT 01/03/22 11:56 IMPRESSION: Stable nodular densities in the body and tail of the pancreas measuring 2.86 and 2.83 cm. These are not significantly changed since the previous study and are concerning for metastatic lesions. There is also induration of the fat around the tail of the pancreas which could be due to inflammation or hemorrhage There is free fluid in the abdomen at the left lower quadrant shows increased attenuation consistent with hemorrhage, it has not significantly changed since 12/27/2021 Stable simple and hyperdense right renal cysts without significant change since the previous study a neoplastic process cannot be excluded. Follow-up in 6 months is recommended Electronically Signed: Lucila Martin MD at 12:52 EDT , ADDENDUM: 01/03/22 1315 IMPRESSION: Stable nodular densities in the body and tail of the pancreas measuring 2.86 and 2.83 cm. These are not significantly changed since the previous study and are concerning for metastatic lesions. There is also induration of the fat around the tail of the pancreas which could be due to inflammation or hemorrhage There is free fluid in the abdomen at the left lower quadrant shows increased attenuation consistent with hemorrhage, it has not significantly changed since 12/27/2021 Stable simple and hyperdense right renal cysts without significant change since the previous study a neoplastic process cannot be excluded. Follow-up in 6 months is recommended N.B. : The above Results were Read Back by Lucila Martin MD to Tayo Cannon MD, and understanding confirmed on 01/03/2022 13:08:04 (ET). Electronically Signed: Lucila Martin MD at 12:52 EDT , Physical Exam Const alert, oriented x3, no apparent distress and well nourished Constitutional Narrative: Obese, upper middle-aged white male lying in bed, appears comfortable nontoxic Exam Limitations: no limitations Nutritional Appearance: morbidly obese HEENT head/scalp atraumatic and moist oral mucous membranes HEENT Narrative: Mallampati 3, no thrush Head and Scalp: normocephalic Resp normal respiratory effort, no retractions, no use of accessory muscles and clear to auscultation bilaterally Resp Narrative: Distant secondary to body habitus Auscultation: Negative for crackles, rales, rhonchi or wheezes Cardio regular rate, regular rhythm, S1 normal heart sound, S2 normal heart sound, no murmurs, no rub, no gallops, no clicks and no JVD Cardio Narrative: Distant secondary to body habitus GI normal to inspection, nondistended, normoactive bowel sounds, soft to palpation and non-distended GI Narrative: Mild diffuse tenderness noted more on the left side of the abdomen but no focal point tenderness, no significant epigastric or left upper quadrant tenderness noted on exam Extremity Extremity Narrative: Trace bilateral lower extremity edema, no cyanosis or clubbing, no calf tenderness-patient states lower extremity edema is baseline Peripheral Pulses: Yes pulses 2+ throughout Neuro oriented x3, CN's II-XII intact bilaterally, moves all extremities and no focal motor deficits Neuro Narrative: Mild generalized weakness Sensorium / Orientation: awake, alert, oriented to person, oriented to place and oriented to time Speech: speech normal Psych affect normal Psych Narrative: Propria interactive and very pleasant Assessment & Plan Assessment/Plan (1) Abdominal pain: (2) CKD (chronic kidney disease) stage 4, GFR 15-29 ml/min: (3) Hyperbilirubinemia: (4) Diarrhea: PLAN: Abdominal pain -Improved since admission -We will trial clear liquid diet--> consider advancement tomorrow if patient remains stable -Continue IV fluids for now at 50cc/h and may able to discontinue if oral intake is improved -CT in the emergency department showed stable nodular densities at the body and tail of the pancreas that have not changed from his CT performed last week, induration of fat around the tail of the pancreas, free fluid in the abdomen in the left lower quadrant that is consistent with hemorrhage but not all that changed in 12/27/2021, and renal cysts that appear stable with recommended follow- up in 6 months -For the complexity of his cancer and underlying issues the patient was transferred to [facility] in the emergency department however no bed is available and he is currently awaiting transfer Questionable intra-abdominal hemorrhage -CT is suggestive of free fluid consistent with blood in the abdomen -It appears that the patient had a hemoglobin that was stable at discharge at 7.9. At 9.0 on admission and today 8.4 so overall relatively stable -Monitor clinically and repeat hemoglobin every 8 hours x3 for stability -Transfuse for hemoglobin less than 7 -Patient does have chronic anemia -Had been on Xarelto but currently on hold secondary to concerns for the above -If patient remains stable with regards to his hemoglobins we may be able to consider a heparin drip and watch closely before starting oral anticoagulation -Patient was transfused 2 units of packed red blood cells on 12/31/2021 CKD stage IV -Current serum creatinine is 3.30 -This appears to be close to his baseline -Serum creatinine has trended down since recent admission 2 days ago with his creatinine being 4.38 on discharge Diarrhea -Patient states he was given something for constipation at his last admission and now is having significant diarrhea -We will assess C. difficile given patient's immunocompromise status and abdominal pain with nausea vomiting Recent acute pancreatitis with pancreatic mass -Pancreatic abnormalities are still present on CT -Patient was evaluated by Dr. Cuello at his last admission with no surgical interventions needed -Per documentation it seems like his abdominal symptoms are not as severe and less focalized -Lipase was normal -Await transfer to [facility] Right renal cell carcinoma stage IV -Status post radical nephrectomy 2010 -Patient with recurrent disease in 2019 showing bilateral pulmonary nodules, cirrhotic liver, perihepatic ascites, paracolic gutter and pancreatic mets -Started on nivolumab and ipilimumab in 2019 but developed pneumonitis and paroxysmal atrial fibrillation -also had immunotherapy axitinib, pembrolizumab which was held due to elevated creatinine -Per oncology documentation is unclear whether the pancreatic lesions are metastatic deposits or not -Cancer is incurable and all treatment is palliative Chronic diastolic heart failure -Per currently compensated -Hold Lasix for now -Monitor clinically -Hydrating gently at this point and will discontinue IV fluids if p.o. intake is adequate PAF -Continue home metoprolol -Continue home Cardizem -Patient is not anticoagulated secondary to the concern of this hemorrhage in his abdomen -We will continue to hold right now -May be able to reinitiate anticoagulation but would do so cautiously with heparin initially and watch counts carefully with abnormalities reported on CT scan History of pulmonary embolism/lower extremity DVT -Anticoagulation is currently on hold secondary to abnormalities on the CT scan -Monitor hemoglobin -If remains stable may be able to consider initiation of heparin -Patient stable on heparin and then we may be able to reinitiate Xarelto but I think we should do so cautiously with the CT abnormalities -Patient did require transfusion on 12/31/2021 Acute on chronic anemia -Abnormal CT suggestive of bleeding -Continue to hold anticoagulation -Every 8 hour H&H's Hypertension -Continue home clonidine -Continue diltiazem -Continue metoprolol GERD -Continue Protonix BPH -Continue tamsulosin -Continue Proscar History of gout -No acute issues -Continue home allopurinol Hypothyroidism -Continue home levothyroxine Morbid obesity -BMI 41.3 -Complicates treatment, prognosis, outcomes -Recommend weight loss DVT prophylaxis -Xarelto on hold secondary to above bleeding issues -Continue to monitor clinically -Patient is high risk for further clot formation given history of cancer -If hemoglobin remained stable may consider heparin drip initiation in the next 24 hours CODE STATUS -DNR CCA without intubation Disposition -Patient is currently waiting on a bed at [facility] for transfer Charges/Coding Visit Charges Inpatient E&M: 00139 Subs Hosp L2
[2022-01-04 12:35] LABS: Hematocrit 30.1 % (40-54); Hemoglobin 8.9 g/dL (13.0-16.5)
[2022-01-04 15:35] LABS: Anion Gap 9 (5-15); BUN 59 mg/dL (7-18); BUN/Creat Ratio 17.4 RATIO (10-20); Calcium,Total 8.5 mg/dL (8.5-10.1); Chloride 115 mmol/L (98-107); EST Glomerular Filtration Rate 19 mL/min (>60); Est Glom Filt Rate - Afr Amer 23 mL/min (>60); Estimated Creatinine Clearance 22.45 ml/min; Glucose 118 mg/dL (74-106); Sodium Level 144 mmol/L (136-145)
--- NOTE | 2022-01-04 17:46 | PN.HOSP_ITS ---
Hospitalist Note Called by nursing. Patient now thinks he would like to discuss his overall situation with Dr. Kuhn before being transferred to [facility]. [facility] has accepted for transfer however no bed availability yet. Consultation placed to oncology to be seen tomorrow.
--- NOTE | 2022-01-04 17:46 | PCM.HOSP.N ---
Hospitalist Note Called by nursing. Patient now thinks he would like to discuss his overall situation with Dr. Kuhn before being transferred to [facility]. [facility] has accepted for transfer however no bed availability yet. Consultation placed to oncology to be seen tomorrow.
[2022-01-04 20:05] LABS: Hematocrit 28.7 % (40-54); Hemoglobin 8.6 g/dL (13.0-16.5)
[2022-01-04] MEDS: cloNIDine HCl 0.1 MG Tablet PO (22:12)
[2022-01-04] MEDS: Metoprolol Tartrate 100 MG Tablet PO (22:12)
[2022-01-04] MEDS: Tamsulosin HCl 0.4 MG Capsule PO (22:12)
[2022-01-04] MEDS: dilTIAZem CD 120 MG Capsule PO (22:12)
[2022-01-05] VITALS (7 sets, daily range): BP systolic 137–151; BP diastolic 65–72; PULSE 62–77; RESP 16–18; TEMP 36.5–37; O2SAT 97–100
[2022-01-05 04:57] LABS: Absolute Lymphocyte Count 0.74 X10^3/uL (0.83-4.51); Absolute Neutrophil Count 5.4 X10^3/uL (2.0-7.7); Basophil# 0.02 X10^3/uL; Basophil% 0.3 % (0-1); Eosinophil# 0.26 X10^3/uL; Eosinophils% 3.5 % (0-5); Hematocrit 27.2 % (40-54); Hemoglobin 8.1 g/dL (13.0-16.5); Lymphocyte # 0.74 X10^3/ul (0.83-4.51); Mean Corp Hgb Conc 29.8 g/dL (32-36); Mean Corpuscular Hgb 26.9 pg (27.0-32.0); Mean Corpuscular Volume 90.4 fL (80-94); Mean Platelet Vol. 9.5 fl (6.2-12.0); Monocyte# 0.95 X10^3/uL; Monocyte% 12.8 % (0-10); NRBC Flagged by Analyzer 0 % (0-5); Neutrophil # 5.39 X10^3/uL (2.7-7.7); Neutrophil % 72.5 % (47-70); Platelet Count 206 K/mm3 (150-450); RBC Distribution Width CV 18.5 % (11.6-14.6); RBC Distribution Width SD 58.1 fl (35.1-43.9); Red Blood Count 3.01 M/mm3 (4.6-6.2); White Blood Count 7.4 K/mm3 (4.4-11.0)
[2022-01-05] MEDS: Levothyroxine 100 MCG Tablet PO (05:16)
[2022-01-05 05:28] LABS: Anion Gap 6 (5-15); BUN 51 mg/dL (7-18); BUN/Creat Ratio 15.7 RATIO (10-20); Calcium,Total 8.4 mg/dL (8.5-10.1); Chloride 115 mmol/L (98-107); Creatinine, Serum 3.24 mg/dL (0.70-1.30); EST Glomerular Filtration Rate 20 mL/min (>60); Est Glom Filt Rate - Afr Amer 25 mL/min (>60); Estimated Creatinine Clearance 23.56 ml/min; Glucose 98 mg/dL (74-106); Potassium 3.6 mmol/L (3.5-5.1); Sodium Level 142 mmol/L (136-145)
[2022-01-05] MEDS: Vancomycin 125 MG/5 ML Susp PO.SYRINGE PO ×4 (07:59→23:13)
[2022-01-05] MEDS: Allopurinol 100 MG Tablet PO (07:59)
--- NOTE | 2022-01-05 08:47 | CON.PCM.ON_ITS ---
Assessment & Plan Assessment/Plan (1) Abdominal pain: Status: Acute Code(s): R10.9 - Unspecified abdominal pain (2) CKD (chronic kidney disease) stage 4, GFR 15-29 ml/min: Status: Chronic Code(s): N18.4 - Chronic kidney disease, stage 4 (severe) Plan: To do observation for now. (3) Diarrhea: Status: Acute Code(s): R19.7 - Diarrhea, unspecified Plan: C.difficile is positive so to manage as such. (4) Pancreatic mass: Status: Acute Code(s): K86.89 - Other specified diseases of pancreas Plan: Masses in pancreas can be Acute Pancreatic necrotic collection because of previous pancreatitis vs metastatic disease. Repeat imaging in 4-6 weeks will help differentiate them. (5) Metastatic 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: Status: Chronic Code(s): C78.00 - Secondary malignant neoplasm of unspecified lung; C64.9 - Malignant neoplasm of unspecified kidney, except renal pelvis Qualifiers: Laterality: unspecified laterality Qualified Code(s): C78.00 - Secondary malignant neoplasm of unspecified lung; C64.9 - Malignant neoplasm of unspecified kidney, except renal pelvis Plan: He is on treatment holiday, to continue observation. HPI Consult Data Date of Service:: 01/05/22 PCP / Referring Provider: Dr. Houston Olson DO Attending: Dr. Houston Spear DO Chief Complaint Chief Complaint: Asked to see Pt for Metastatic Renal cancer. History of Present Illness History of Present Illness: 66-year-old man with history of metastatic renal cancer involving lungs and right kidney status post left nephrectomy, was on treatment with Keytruda and axitinib but has not received any treatment since March 2021. He was admitted on 12/27/2021 with pancreatitis and 2 pancreatic masses with elevated amylase and lipase. He made remarkable improvement so was discharged home, return to the hospital with abdominal pain and diarrhea. Repeat CT on 01/03/2022 shows pancreatic masses with free fluid in the peritoneum suggestive of hemorrhage, no change from previous CT scan. C. difficile antigen and PCR is positive on 02/03/2022. This morning, abdominal pain has improved, denies vomiting. Advanced Directives Power of Bow Maker Production: Yes Living Will: Yes [facility] Medical History (Updated 01/04/22 @ 11:[address] Ava Garrett, DO) Abnormal CT of the abdomen Anemia Atrial fibrillation with rapid ventricular response (07/04/19) Bilateral pulmonary embolism (11/19/14) Cancer Chronic diastolic (congestive) heart failure Coronary artery disease COVID-19 (07/11/21) Deep vein thrombosis of right lower extremity (11/19/14) Diabetes Encounter for education Essential (primary) hypertension GERD (gastroesophageal reflux disease) Gout Hypertension Hypothyroidism Hypothyroidism Metastatic 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 Obesity Pancreatic mass Pancreatitis Paroxysmal atrial fibrillation Pneumonitis Renal cell cancer Type 2 diabetes mellitus Viral URI Home Medications tamsulosin 0.4 mg PO BID 11/09/14 [History Last Taken 08/05/19] allopurinol 100 mg PO DAILYCM 05/03/15 [History Last Taken 08/05/19] finasteride 5 mg PO DAILY 05/03/15 [History Last Taken 08/05/19] pantoprazole 40 mg tablet,delayed release 40 mg PO DAILY #90 tab 02/02/20 [Rx Last Taken Unknown] levothyroxine 100 mcg tablet 100 mcg PO DAILY 30 Days #30 tablet 09/16/21 [Rx Last Taken Unknown] clonidine HCl 0.1 mg tablet 0.1 mg PO BID 09/25/21 [History Last Taken Unknown] diltiazem HCl 120 mg capsule,extended release 24 hr 120 mg PO BID #180 cap 11/07/21 [Rx Last Taken Unknown] metoprolol tartrate 100 mg tablet 100 mg PO BID #180 tab 11/07/21 [Rx Last Taken Unknown] ondansetron [Zofran ODT] 4 mg PO Q6H PRN 01/03/22 [History Last Taken Unknown] Allergy/AdvReac Type Severity Reaction Status Date / Time Penicillins [PCN] Allergy PT UNSURE Verified 01/03/22 11:37 OF REACTION Family History Mother Diabetes Heart disease Kidney disease Hypertension CVA (cerebral vascular accident) Father Heart disease Surgical History History of colonoscopy (2018) History of left nephrectomy (2010) History of total hip arthroplasty (04/2015) Social History Smoking Status: Never smoker second hand exposure: No alcohol intake: never substance use type: does not use caffeine: Yes frequency: does not exercise ROS Constitutional Constitutional: Reports fatigue ENT HEENT: Reports dysphagia Cardiovascular Cardiovascular: Reports chest pain Respiratory/Chest Respiratory/Chest: Denies chest tightness Gastrointestinal Gastrointestinal: Reports abdominal pain and diarrhea Genitourinary Genitourinary: Denies change in urinary stream Musculoskeletal Musculoskeletal: Reports abnormal gait Integumentary Integumentary: Denies alopecia Neurologic Neurologic: Denies abnormal speech Psychiatric Psychiatric: Denies anxiety Endocrine Endocrinology: Denies cold intolerance or flushing Hematologic/Lymphatic Hematologic/Lymphatic: Denies easy bleeding or easy bruising Physical Exam Const alert and oriented x3 Orientation / Consciousness: oriented to person HEENT normocephalic Eyes PERRL and conjunctivae normal Neck no lymphadenopathy Lymph Lymphatic: no lymphadenopathy noted Chest inspection of chest normal Resp normal respiratory effort and clear to auscultation bilaterally Cardio regular rate, regular rhythm, S1 normal heart sound, S2 normal heart sound and no murmurs Extremity normal to inspection and no clubbing, cyanosis or edema Skin no rashes or lesions noted Neuro CN's II-XII intact bilaterally and no sensory deficits noted Motor Exam: strength 5/5 throughout Psych mental status grossly normal Vital Signs Temperature 98.0 F 01/05/22 07:52 Temperature Source Oral 01/05/22 07:52 Pulse Rate 77 01/05/22 07:52 Pulse Strength Normal (2+) 01/04/22 22:00 Respiratory Rate 18 01/05/22 07:52 Respiratory Effort Non-Labored 01/05/22 08:06 Respiratory Depth Normal 01/05/22 08:06 Respiratory Pattern Normal 01/05/22 08:06 Blood Pressure 145/70 H 01/05/22 07:52 Blood Pressure Mean 95 01/05/22 07:52 Blood Pressure Source Monitor 01/05/22 07:52 Blood Pressure Position Sitting 01/05/22 07:52 Blood Pressure Location Right Arm 01/05/22 07:52 Pulse Ox 97 01/05/22 07:52 Oxygen Delivery Method Room Air 01/05/22 08:06 Oxygen Flow Rate (L/min) 2 01/05/22 02:00 Laboratory Results - last 24 hr 01/04/22 12:25: Hgb 8.9 L, Hct 30.1 L 01/04/22 12:25: Sodium 144, Potassium 4.0, Chloride 115 H, Carbon Dioxide 20.0 L , Anion Gap 9, BUN 59 H, Creatinine 3.40 H, Estim Creat Clear Calc 22.45, Est GFR (MDRD) Af Amer 23 L, Est GFR (MDRD) Non-Af 19 L, BUN/Creatinine Ratio 17.4, Glucose 118 H, Calcium 8.5 01/04/22 19:46: Hgb 8.6 L, Hct 28.7 L 01/05/22 04:35: WBC 7.4, RBC 3.01 L, Hgb 8.1 L, Hct 27.2 L, MCV 90.4, MCH 26.9 L , MCHC 29.8 L, RDW Std Deviation 58.1 H, RDW Coeff of Shanell 18.5 H, Plt Count 206, MPV 9.5, Immature Gran % (Auto) 0.900, Neut % (Auto) 72.5 H, Lymph % (Auto) 10.0 L, [place] % (Auto) 12.8 H, Eos % (Auto) 3.5, Baso % (Auto) 0.3, Absolute Neuts (auto) 5.4, Absolute Lymphs (auto) 0.74 L, Nucleated RBC % 0 01/05/22 04:35: Sodium 142, Potassium 3.6, Chloride 115 H, Carbon Dioxide 21.0, Anion Gap 6, BUN 51 H, Creatinine 3.24 H, Estim Creat Clear Calc 23.56, Est GFR (MDRD) Af Amer 25 L, Est GFR (MDRD) Non-Af 20 L, BUN/Creatinine Ratio 15.7, Glucose 98, Calcium 8.4 L Microbiology 01/04/22 12:00 Stool C. difficile GDH Antigen & Toxins - Final 01/04/22 12:00 Stool C. difficile DNA Amplification - Final Diagnostic Data Abdomen/Pelvis CT 01/03/22 11:56 IMPRESSION: Stable nodular densities in the body and tail of the pancreas measuring 2.86 and 2.83 cm. These are not significantly changed since the previous study and are concerning for metastatic lesions. There is also induration of the fat around the tail of the pancreas which could be due to inflammation or hemorrhage There is free fluid in the abdomen at the left lower quadrant shows increased attenuation consistent with hemorrhage, it has not significantly changed since 12/27/2021 Stable simple and hyperdense right renal cysts without significant change since the previous study a neoplastic process cannot be excluded. Follow-up in 6 months is recommended Electronically Signed: Lucila Martin MD at 12:52 EDT , ADDENDUM: 01/03/22 1315 IMPRESSION: Stable nodular densities in the body and tail of the pancreas measuring 2.86 and 2.83 cm. These are not significantly changed since the previous study and are concerning for metastatic lesions. There is also induration of the fat around the tail of the pancreas which could be due to inflammation or hemorrhage There is free fluid in the abdomen at the left lower quadrant shows increased attenuation consistent with hemorrhage, it has not significantly changed since 12/27/2021 Stable simple and hyperdense right renal cysts without significant change since the previous study a neoplastic process cannot be excluded. Follow-up in 6 months is recommended N.B. : The above Results were Read Back by Lucila Martin MD to Tayo Cannon MD, and understanding confirmed on 01/03/2022 13:08:04 (ET). Electronically Signed: Lucila Martin MD at 12:52 EDT , Charges/Coding Visit Charges Office Visits / Consults: [id number] IP Consult L4
[2022-01-05] MEDS: Finasteride 5 MG Tablet PO (09:13)
[2022-01-05] MEDS: dilTIAZem CD 120 MG Capsule PO ×2 (09:13→21:28)
[2022-01-05] MEDS: Tamsulosin HCl 0.4 MG Capsule PO ×2 (09:13→21:28)
[2022-01-05] MEDS: Pantoprazole Sodium 40 MG Tablet PO (09:13)
[2022-01-05] MEDS: cloNIDine HCl 0.1 MG Tablet PO ×2 (09:13→21:28)
[2022-01-05] MEDS: Metoprolol Tartrate 100 MG Tablet PO ×2 (09:13→21:28)
[2022-01-05] MEDS: 0.9% Normal Saline 1,000 ML 50 ML IV (11:26)
--- NOTE | 2022-01-05 15:23 | CHAPLAIN ---
Type of Pastoral Visit _x__ Initial Visit ___ Follow-up Visit ___ On-call Visit ___ General Patient Visit ___ Spiritual Assessment ___ Family Conference ___ Bereavement ___ Rapid Response ___ Code Blue ___ Other (describe below) Pastoral Care Referral From __x_ Patient ___ Family ___ Nurse ___ Physician ___ Expander ___ Warranty Clerk ___ Other (describe below) Sacrament/Intervention _x__ Active listening ___ Anointing ___ Mormonism ___ Bereavement ___ Communion _x__ Susanna exploration ___ ___ Life review _x__ Prayer ___ Reconciliation ___ Sacrament of Sick _x__ Supportive presence ___ Wedding ___ Other (describe below) Pastoral Comments patient clearly expresses his desire to be at home but acknowledges that he is waiting for a bed in [place]; pt admits that he is not sure if he wants to go to [place] and some doctors tell me I should and others tell me I shouldn't; dil is with pt and states that goal is to get to a bigger hospital for better surgerical opportunities; pt talks about making a donation of Bibles; pt welcomes prayer; pt states he is not a current alevism member but used to be more active
--- NOTE | 2022-01-05 17:51 | PN.HOSP_ITS ---
Subjective Subjective Patient was seen and examined today, he still having periods of diarrhea, he states his abdominal pain is improved, I advance patient's diet today but the patient preferred not to be discharged home at this time. He will be reevaluated tomorrow morning. I talked briefly with Dr. Oliver about his care. Patient does not want to be transferred to the [facility], he would rather stay at this hospital and go home from the hospital if possible. Objective Data Objective Data Vital Signs: Vital Signs Temp Pulse Resp BP Pulse Ox 97.7 F L 62 16 141/66 H 99 01/05/22 14:37 01/05/22 14:37 01/05/22 14:37 01/05/22 14:37 01/05/22 14:37 Oxygen Flow Rate (L/min) 2 Oxygen Delivery Method Room Air Weight: 135.2 kg Body Mass Index (BMI) 41.3 Intake & Output: Intake and Output for Last 24 Hours 01/03/22 01/04/22 01/05/22 23:59 23:59 23:59 Intake Total 1000 / 1000 2493.33 / 2493.33 2576.67 / 2576.67 Balance 1000 / 1000 2493.33 / 2493.33 2576.67 / 2576.67 Lab / Micro Data Result Diagrams: 01/05/22 04:35 01/05/22 04:35 Labs: Laboratory Results - last 24 hr 01/04/22 19:46: Hgb 8.6 L, Hct 28.7 L 01/05/22 04:35: WBC 7.4, RBC 3.01 L, Hgb 8.1 L, Hct 27.2 L, MCV 90.4, MCH 26.9 L , MCHC 29.8 L, RDW Std Deviation 58.1 H, RDW Coeff of Shanell 18.5 H, Plt Count 206, MPV 9.5, Immature Gran % (Auto) 0.900, Neut % (Auto) 72.5 H, Lymph % (Auto) 10.0 L, [place] % (Auto) 12.8 H, Eos % (Auto) 3.5, Baso % (Auto) 0.3, Absolute Neuts (auto) 5.4, Absolute Lymphs (auto) 0.74 L, Nucleated RBC % 0 01/05/22 04:35: Sodium 142, Potassium 3.6, Chloride 115 H, Carbon Dioxide 21.0, Anion Gap 6, BUN 51 H, Creatinine 3.24 H, Estim Creat Clear Calc 23.56, Est GFR (MDRD) Af Amer 25 L, Est GFR (MDRD) Non-Af 20 L, BUN/Creatinine Ratio 15.7, Glucose 98, Calcium 8.4 L Micro: Microbiology 01/04/22 12:00 Stool C. difficile GDH Antigen & Toxins - Final 01/04/22 12:00 Stool C. difficile DNA Amplification - Final 01/03/22 15:55 Nasal Secretion SARS-CoV-2 & FLU Antigen (Rapid) - Final Physical Exam Const alert, oriented x3 and no apparent distress General Appearance: cooperative, well kempt and well developed Orientation / Consciousness: awake, oriented to person, oriented to place and oriented to time Nutritional Appearance: morbidly obese HEENT normocephalic, head/scalp atraumatic and moist oral mucous membranes Head and Scalp: normocephalic Eyes PERRL, EOMs intact bilaterally and conjunctivae normal Neck nuchal rigidity, supple, no JVD, thyroid normal and no carotid bruits General: trachea midline Resp normal respiratory effort and clear to auscultation bilaterally Auscultation: Negative for rales, rhonchi or wheezes Cardio regular rate, regular rhythm, S1 normal heart sound, S2 normal heart sound, no murmurs, no rub and no gallops GI soft to palpation GI Narrative: Abdomen is slightly tender to palpation, it is tympanic, no rebound abdominal tenderness is present Extremity normal to inspection and no clubbing, cyanosis or edema Skin no rashes or lesions noted General Skin Exam: no breakdown Neuro oriented x3, CN's II-XII intact bilaterally, no focal motor deficits and no sensory deficits noted Sensorium / Orientation: awake and alert Speech: speech normal Psych affect normal Assessment & Plan Assessment/Plan (1) Abdominal pain: PLAN: 1. Anemia-iron deficiency-etiology unclear, could be related to hemorrhagic pancreatitis with a backdrop of stage IV chronic kidney disease-CBC will be rechecked tomorrow, patient's hemoglobin today was 8.1 #2 abdominal pain-etiology unclear, patient's CT showed fluid in the left lower quadrant consistent with hemorrhage, it is possible patient had hemorrhagic pancreatitis, patient's diet will be advanced today #3 C. difficile infection-patient will remain on p.o. vancomycin #4 chronic kidney disease stage IV-patient's creatinine appears stable #5 paroxysmal atrial fibrillation-patient's anticoagulation has been held at this time due to concern of hemorrhage in his abdomen, I talked with his onc ologist today who stated he would make a decision whether to resume the patient's anticoagulation as an outpatient. #6 metastatic renal carcinoma to the lung-patient is not currently being given chemotherapy or immunotherapy for his renal cell cancer at this time #7 type 2 diabetes-patient's blood sugar will be monitored, sliding scale insulin will be given #8 pancreatic masses-etiology unclear, patient will need further work-up as an outpatient #9 morbid obesity-complicates care recovery and prognosis Charges/Coding Visit Charges Inpatient E&M: 93039 Subs Hosp L2
[2022-01-06 02:37] VITALS: BP 123/51; PULSE 64; RESP 16; TEMP 37; O2SAT 98
[2022-01-06] MEDS: Levothyroxine 100 MCG Tablet PO (04:58)
[2022-01-06] MEDS: Vancomycin 125 MG/5 ML Susp PO.SYRINGE PO ×2 (04:58→11:19)
[2022-01-06 06:59] VITALS: O2SAT 98
[2022-01-06 09:15] VITALS: PULSE 73
[2022-01-06] MEDS: Metoprolol Tartrate 100 MG Tablet PO (09:15)
[2022-01-06] MEDS: dilTIAZem CD 120 MG Capsule PO (09:15)
[2022-01-06] MEDS: cloNIDine HCl 0.1 MG Tablet PO (09:15)
[2022-01-06] MEDS: Pantoprazole Sodium 40 MG Tablet PO (09:15)
[2022-01-06] MEDS: Allopurinol 100 MG Tablet PO (09:15)
[2022-01-06] MEDS: Finasteride 5 MG Tablet PO (09:16)
[2022-01-06] MEDS: Tamsulosin HCl 0.4 MG Capsule PO (09:16)
--- NOTE | 2022-01-06 09:19 | PCM.DC ---
Discharge Instructions Diet Discharge Diet: No restrictions Activity Discharge Activity: Return to Normal Activity Weight Bearing Status: Full weight bearing Follow Up Care Test Results: Test results from this visit will be discussed in further detail at your follow-up appointment, if applicable. Discharge Plan Admission Admit Date/Time: 01/03/22 21:48 Primary Reason for Your Visit: abdominal pain, anemia, C.diff Attending Provider: Houston Spear Primary Care Provider: Houston Olson Consulting Providers: Jeffrey Philip ; Jeffrey Kuhn ; Ava Tucker Instructions Additional Instructions / Restrictions: Dr. Kuhn will tell you when to restart Xarelto Discharge Orders/Prescriptions Prescriptions: New vancomycin 125 mg capsule 125 mg PO Q6H Qty: 20 RF: 0 ferrous sulfate 325 mg (65 mg iron) tablet 325 mg PO BID Qty: 60 RF: 0 Continued clonidine HCl 0.1 mg tablet 0.1 mg PO BID RF: 0 metoprolol tartrate 100 mg tablet 100 mg PO BID Qty: 180 RF: 3 diltiazem HCl 120 mg capsule,extended release 24hr 120 mg PO BID Qty: 180 RF: 3 tamsulosin 0.4 MG capsule 0.4 mg PO BID RF: 0 allopurinol 100 MG tablet 100 mg PO DAILYCM RF: 0 finasteride 5 MG tablet 5 mg PO DAILY RF: 0 ondansetron 4 mg Tablet,Disintegrating 4 mg PO Q6H PRN (Reason: Nausea) RF: 0 pantoprazole 40 mg tablet,delayed release (DR/EC) 40 mg PO DAILY Qty: 90 RF: 0 levothyroxine 100 mcg tablet 100 mcg PO DAILY 30 Days Qty: 30 RF: 2 Referrals / Follow Up: Jeffrey Kuhn MD [NON-STAFF] - In 1 Week Houston Olson DO [Primary Care Provider] - Disposition Disposition (needs filled in before D/C Order can be placed): Home, Self Care
[2022-01-06 09:20] VITALS: BP 132/52; PULSE 73; RESP 18; TEMP 37.1; O2SAT 98
--- NOTE | 2022-01-06 09:42 | DS.PCM_ITS ---
Providers Date of Admission: 01/03/22 Date of Discharge: 01/06/22 Primary Care Physician: Dr. Houston Olson, Consultations 01/04/22 17:40 Consult: Oncology/Hematology Routine Consulting Provider: Jeffrey Kuhn Reason for Consult: kidney disease possible end stage EMERGENT Consult: No MD Notified: Yes Date Notified: 01/04/22 Time Notified: 17:40 Method of Notification: via flat bed operator Reason For Visit: METASTATIC RENAL CELL CANCER Diagnosis Discharge Diagnosis (1) Abdominal pain: Status: Resolved Code(s): R10.9 - Unspecified abdominal pain Plan: 1.? Anemia-iron deficiency-etiology unclear, could be related to hemorrhagic pancreatitis with a backdrop of stage IV chronic kidney disease #2 abdominal pain-etiology unclear #3 C. difficile infection #4 chronic kidney disease stage IV #5 paroxysmal atrial fibrillation #6 metastatic renal carcinoma to the lung #7 type 2 diabetes #8 pancreatic masses-etiology unclear #9 morbid obesity Medications at Discharge Home Medications tamsulosin 0.4 mg capsule 0.4 mg PO BID prostate 11/09/14 allopurinol 100 mg tablet 100 mg PO DAILYCM gout 05/03/15 finasteride 5 mg tablet 5 mg PO DAILY prostate 05/03/15 pantoprazole 40 mg tablet,delayed release 40 mg PO DAILY #90 tabs 02/02/20 levothyroxine 100 mcg tablet 100 mcg PO DAILY 30 days #30 tabs 09/16/21 clonidine HCl 0.1 mg tablet 0.1 mg PO BID blood pressure 09/25/21 diltiazem HCl 120 mg capsule,extended release 24 hr 120 mg PO BID #180 caps 11/07/21 metoprolol tartrate 100 mg tablet 100 mg PO BID #180 tabs 11/07/21 ondansetron 4 mg disintegrating tablet 4 mg PO Q6H PRN Nausea 01/03/22 ferrous sulfate 325 mg (65 mg iron) tablet 325 mg PO BID #60 tabs 01/06/22 vancomycin 125 mg capsule 125 mg PO Q6H #20 caps 01/06/22 Hospital Course Operations None Procedures None Summary of Care Provided Minutes Spent on Discharge: 30 Hospital Course: This 66-year-old white male was seen in the emergency room at [facility] with complaints of generalized abdominal pain. He had been discharged from [facility] 2 days prior with a diagnosis of pancreatitis. Work-up in the emergency room showed the patient's white blood cell count to be 9.2, hemoglobin was 9, chemistries were unremarkable. Bilirubin was elevated at 2.6 and AST was 66. Patient's lipase was normal, CT scan of the abdomen showed left lower quadrant fluid with increased attenuation consistent with a hemorrhage, this however looks stable when compared with the CT from December 27, 2021. Patient also was noted to have a mass in the tail and body of pancreas. Initially was planning for the patient to be transferred to tertiary care center for further care, a bed was not available and so he was placed in observation status on MedSurg 3. Patient was given IV pain medications and antinausea medic ations, it was noted that the patient's C. difficile antigen was positive however the patient's toxin was not detectable. It was felt that because the patient had diarrhea, that he should undergo treatment with oral vancomycin. Patient's abdominal discomfort improved during his hospitalization, patient decided not to go to the [facility] and he was not transferred. On 01/06/2022, patient was seen and examined: On examination he appeared in good health and spirits. Vital signs as documented. Skin warm and dry and without overt rashes. Neck without JVD, neck was supple, trachea midline, thyroid was normal. Lungs clear bilaterally, normal air movement was noted. Heart exam notable for regular rhythm, normal sounds and absence of murmurs, rubs or gallops. Abdomen unremarkable and without evidence of organomegaly, masses, or abdominal aortic enlargement. Bowel sounds are present, abdomen is not distended. Extremities nonedematous, no cyanosis was noted, no clubbing was noted. Neuro: Cranial nerves II through XII are grossly intact, no focal motor deficits were noted, sensation to light touch and pinprick intact, motor exam 5/5 throughout. Psych: Patient is alert and oriented x3, he does not appear anxious or depressed, he does not appear agitated. Patient appeared to be stable for discharge on 01/06/2022, patient was discharged to home. Weight / BMI Weight Weight: 133.991 kg Body Mass Index (BMI) 41.3 ABG / Lab / Microbiology Data Result Diagrams: 01/06/22 09:50 01/05/22 04:35 Microbiology: Microbiology 01/04/22 12:00 Stool C. difficile GDH Antigen & Toxins - Final 01/04/22 12:00 Stool C. difficile DNA Amplification - Final 01/03/22 15:55 Nasal Secretion SARS-CoV-2 & FLU Antigen (Rapid) - Final D/C Instructions Discharge Diet: No restrictions Weight Bearing Status: Full weight bearing Meaningful Use Info Meaningful Use Diagnoses (Choose all that apply): None applicable Discharge Plan Admission Admit Date/Time: 01/03/22 21:48 Primary Reason for Your Visit: abdominal pain, anemia, C.diff Attending Provider: Houston Spear Primary Care Provider: Houston Olson Consulting Providers: Jeffrey Philip ; Jeffrey Kuhn ; Ava Tucker Instructions Additional Instructions / Restrictions: Dr. Kuhn will tell you when to restart Xarelto Discharge Orders/Prescriptions Prescriptions: New vancomycin 125 mg capsule 125 mg PO Q6H Qty: 20 0RF ferrous sulfate 325 mg (65 mg iron) tablet 325 mg PO BID Qty: 60 0RF Continued clonidine HCl 0.1 mg tablet 0.1 mg PO BID metoprolol tartrate 100 mg tablet 100 mg PO BID Qty: 180 3RF diltiazem HCl 120 mg capsule,extended release 24hr 120 mg PO BID Qty: 180 3RF Label Comments: take 1 capsule by mouth once daily tamsulosin 0.4 MG capsule 0.4 mg PO BID Label Comments: PROSTATE allopurinol 100 MG tablet 100 mg PO DAILYCM Label Comments: GOUT finasteride 5 MG tablet 5 mg PO DAILY Label Comments: BPH ondansetron 4 mg Tablet,Disintegrating 4 mg PO Q6H PRN (Reason: Nausea) pantoprazole 40 mg tablet,delayed release (DR/EC) 40 mg PO DAILY Qty: 90 0RF Rx Instructions: take 1 tablet by mouth once daily levothyroxine 100 mcg tablet 100 mcg PO DAILY 30 Days Qty: 30 2RF Referrals / Follow Up: Jeffrey Kuhn MD [NON-STAFF] - In 1 Week Houston Olson DO [Primary Care Provider] - Disposition Disposition (needs filled in before D/C Order can be placed): Home, Self Care Charges/Coding Visit Charges OBSV E&M: 82654 Observation care discharge
[2022-01-06 10:01] LABS: Absolute Lymphocyte Count 0.73 X10^3/uL (0.83-4.51); Absolute Neutrophil Count 6.2 X10^3/uL (2.0-7.7); Basophil# 0.03 X10^3/uL; Basophil% 0.4 % (0-1); Eosinophil# 0.21 X10^3/uL; Eosinophils% 2.6 % (0-5); Hematocrit 28.5 % (40-54); Hemoglobin 8.6 g/dL (13.0-16.5); Lymphocyte # 0.73 X10^3/ul (0.83-4.51); Mean Corp Hgb Conc 30.2 g/dL (32-36); Mean Corpuscular Volume 89.3 fL (80-94); Mean Platelet Vol. 9.6 fl (6.2-12.0); Monocyte# 0.92 X10^3/uL; Monocyte% 11.3 % (0-10); NRBC Flagged by Analyzer 0 % (0-5); Neutrophil # 6.19 X10^3/uL (2.7-7.7); Neutrophil % 75.8 % (47-70); Platelet Count 197 K/mm3 (150-450); RBC Distribution Width CV 18.6 % (11.6-14.6); RBC Distribution Width SD 58.8 fl (35.1-43.9); Red Blood Count 3.19 M/mm3 (4.6-6.2); White Blood Count 8.2 K/mm3 (4.4-11.0)
--- NOTE | 2022-01-06 11:00 | CASEMGMT ---
RN MERVAT NOTE: Intro role of CM to patient and LIN form explained re: Observation status for treatment of metastatic renal cell carcinoma?.? Explained hospitalization will be paid per?his insurance policy for Outpatient billing?and condition will continue to be evaluated for Inpt necessity. Also let pt know that [facility] sends paper in the billing packet with their phone number if questions arise. Discussed Pharmacy section of LIN form and self administered medication guideline.? Pt verbalizes understanding and does not have further questions. ?Form signed, copy made and placed in chart, and original given to pt. Pt denies having any discharge or home-going needs. Salome FRANKN RN CM
[2022-01-06 15:18] VITALS: BP 128/70; PULSE 68; RESP 18; TEMP 37; O2SAT 98
== END 2022-01-06 16:10 | disposition home or self-care (01) ==
LOC: ED 21:51 → MS3 22:08
PROVIDERS: Internal Medicine; Admitting Provider Hospitalist; Emergency Provider Emergency Medicine; PCP Family Medicine; Visit Provider Internal Medicine
DX: I13.0 Hypertensive heart and chronic kidney disease with heart failure and stage 1 through stage 4 chronic kidney disease, or unspecified chronic kidney disease (principal); I50.32 Chronic diastolic (congestive) heart failure; E11.22 Type 2 diabetes mellitus with diabetic chronic kidney disease; N18.4 Chronic kidney disease, stage 4 (severe); I48.0 Paroxysmal atrial fibrillation; Z68.41 Body mass index [BMI] 40.0-44.9, adult; E66.01 Morbid (severe) obesity due to excess calories; K86.89 Other specified diseases of pancreas; M10.9 Gout, unspecified; E80.6 Other disorders of bilirubin metabolism; R19.7 Diarrhea, unspecified; N28.1 Cyst of kidney, acquired; D64.9 Anemia, unspecified; R11.2 Nausea with vomiting, unspecified; I25.10 Atherosclerotic heart disease of native coronary artery without angina pectoris; Z86.711 Personal history of pulmonary embolism; Z79.899 Other long term (current) drug therapy; Z79.890 Hormone replacement therapy; Z85.528 Personal history of other malignant neoplasm of kidney; Z86.718 Personal history of other venous thrombosis and embolism
CPT/HCPCS: 36415; 74176; 80048; 80053; 83605; 83690; 85014; 85018; 85025; 87428; 87493; 96361; 96365; 96366; 96367; 96375; 96376; 97802; 99218; 99283; J7030; J7050; A4216; G0378; J2405; J2916

== ENCOUNTER 2022-01-17 13:46 | Emergency (ER) | payer MEDICARE, SELFPAY ==
[2022-01-17 13:47] VITALS: BP 154/64; PULSE 76; RESP 20; TEMP 37; O2SAT 99; BMI 42.4
--- NOTE | 2022-01-17 14:13 | EKG12_ITS ---
Test Reason : COUGH Blood Pressure : / mmHG Vent. Rate : 066 BPM Atrial Rate : 066 BPM P-R Int : 158 ms QRS Dur : 096 ms QT Int : 408 ms P-R-T Axes : 034 003 011 degrees QTc Int : 427 ms Normal sinus rhythm Normal ECG Confirmed by GATITO BUSBY, FERN ([id number]), newspaper copy editor DEMETRI SMITH ([id number]) on 01/20/2022 8:15:51 AM Referred By: ERUM Confirmed By:FERN MEDEROS MD
--- NOTE | 2022-01-17 14:14 | EX.ED.DYSGE1 ---
HPI History of Present Illness Chief Complaint: Cough Informant: patient Onset/Context/Timing Onset: Weeks Context: Gradual Onset Current Severity: Mild Maximum Severity: Moderate Narrative Narrative: Patient presents secondary to cough times the past several weeks. He states he started with head congestion that is now draining into his chest. When he blows his nose he gets yellow mucus. He has had some occasional chills but no fever. No chest pain. He recently started taking Mucinex DM to try to help with his symptoms. [facility] Medical History Abnormal CT of the abdomen Anemia Atrial fibrillation with rapid ventricular response (07/04/19) Bilateral pulmonary embolism (11/19/14) Cancer Chronic diastolic (congestive) heart failure CKD (chronic kidney disease) stage 4, GFR 15-29 ml/min Coronary artery disease COVID-19 (07/11/21) Deep vein thrombosis of right lower extremity (11/19/14) Diabetes Encounter for education Essential (primary) hypertension GERD (gastroesophageal reflux disease) Gout Hypertension Hypothyroidism Hypothyroidism Metastatic 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 Neoplastic (malignant) related fatigue Obesity Pancreatic mass Pancreatitis Paroxysmal atrial fibrillation Pneumonitis Renal cell cancer Renal dysfunction Type 2 diabetes mellitus Viral URI Home Medications tamsulosin 0.4 mg capsule 0.4 mg PO BID prostate 11/09/14 [History Last Taken 08/05/19] allopurinol 100 mg tablet 100 mg PO DAILYCM gout 05/03/15 [History Last Taken 08/05/19] finasteride 5 mg tablet 5 mg PO DAILY prostate 05/03/15 [History Last Taken 08/05/19] pantoprazole 40 mg tablet,delayed release 40 mg PO DAILY #90 tabs 02/02/20 [Rx Last Taken Unknown] levothyroxine 100 mcg tablet 100 mcg PO DAILY 30 days #30 tabs 09/16/21 [Rx Last Taken Unknown] clonidine HCl 0.1 mg tablet 0.1 mg PO BID blood pressure 09/25/21 [History Last Taken Unknown] diltiazem HCl 120 mg capsule,extended release 24 hr 120 mg PO BID #180 caps 11/07/21 [Rx Last Taken Unknown] metoprolol tartrate 100 mg tablet 100 mg PO BID #180 tabs 11/07/21 [Rx Last Taken Unknown] ondansetron 4 mg disintegrating tablet 4 mg PO Q6H PRN Nausea 01/03/22 [History Last Taken Unknown] ferrous sulfate 325 mg (65 mg iron) tablet 325 mg PO BID #60 tabs 01/06/22 [Rx Last Taken Unknown] vancomycin 125 mg capsule 125 mg PO Q6H #20 caps 01/06/22 [Rx Last Taken Unknown] levofloxacin 750 mg tablet 750 mg PO Q48H #2 tabs 01/17/22 [Rx Last Taken Unknown] Allergy/AdvReac Type Severity Reaction Status Date / Time Penicillins [PCN] Allergy PT UNSURE Verified 01/17/22 13:49 OF REACTION Family History Mother Diabetes Heart disease Kidney disease Hypertension CVA (cerebral vascular accident) Father Heart disease Surgical History History of colonoscopy (2018) History of left nephrectomy (2010) History of total hip arthroplasty (04/2015) Social History Smoking Status: Never smoker second hand exposure: No alcohol intake: never substance use type: does not use caffeine: Yes frequency: does not exercise ROS ROS ED Constitutional Constitutional ED: Denies chills or fever(s) Eyes Eyes: Denies change in vision or discharge from eye(s) ENT ENT ED: Denies discharge from eye(s), rhinorrhea or sore throat Cardiovascular Cardiovascular: Denies chest pain or palpitations Respiratory/Chest Respiratory/Chest: Reports cough and sputum; Denies dyspnea Gastrointestinal Gastrointestinal: Denies abdominal pain, diarrhea, nausea or vomiting Genitourinary Genitourinary ED: Denies difficulty urinating or dysuria Musculoskeletal Musculoskeletal: Denies back pain or extremity pain Integumentary Denies Abrasions or rash Neurologic Neurologic: Denies headache(s) or weakness Allergic/Immunologic Allergic/Immunologic ED: Denies lip swelling or urticaria EXAM Physical Exam Const Vital Signs: 01/17/22 13:47 01/17/22 15:25 Temperature 98.6 F Temperature Source Temporal Pulse Rate 76 Respiratory Rate 20 H Respiratory Effort Normal Respiratory Depth Normal Respiratory Pattern Normal Blood Pressure 154/64 H Blood Pressure Mean 94 Pulse Ox 99 Oxygen Delivery Method Room Air Positive well nourished and well developed General Appearance ED: well developed HEENT Reports normocephalic and head/scalp atraumatic Eyes PERRL and EOMs intact bilaterally Neck supple Chest Wall inspection of chest normal and palpation of chest normal Resp normal respiratory effort Resp Narrative: Diminished breath sounds bilateral bases. Cardio regular rate and regular rhythm GI normal to inspection, nondistended, normoactive bowel sounds Palpation: soft Back/Spine no CVA tenderness Extremity normal to inspection Neuro oriented x3 and no sensory deficits noted Sensorium / Orientation: alert Motor Exam: strength 5/5 throughout Psych mental status grossly normal Skin no rashes or lesions noted MDM MDM MDM Narrative Medical decision making narrative: Chest x-ray and lab work obtained. EKG ordered. COVID swab obtained. Lab Data Labs: Laboratory Results - last 24 hr 01/17/22 01/17/22 15:10 15:10 WBC 8.3 RBC 3.47 L Hgb 9.2 L Hct 31.8 L MCV 91.6 MCH 26.5 L MCHC 28.9 L RDW Std Deviation 61.0 H RDW Coeff of Shanell 18.3 H Plt Count 267 MPV 9.4 Immature Gran % (Auto) 0.700 Neut % (Auto) 75.7 H Lymph % (Auto) 10.4 L [place] % (Auto) 9.0 Eos % (Auto) 3.4 Baso % (Auto) 0.8 Absolute Neuts (auto) 6.2 Absolute Lymphs (auto) 0.86 Nucleated RBC % 0 Sodium 139 Potassium 4.5 Chloride 111 H Carbon Dioxide 21.0 Anion Gap 7 BUN 45 H Creatinine 3.36 H Estim Creat Clear Calc 22.72 Est GFR (MDRD) Af Amer 24 L Est GFR (MDRD) Non-Af 20 L BUN/Creatinine Ratio 13.4 Glucose 104 Calcium 8.8 Radiography Chest X-Ray - ED: 1 View, Read by ED Physician and Chronic Changes (Questionable peripheral infiltrate.) Diagnostic Testing: Clinical Impression(s) from Imaging Studies Chest X-Ray 01/17/22 14:50 IMPRESSION: Stable cardiomegaly with scarring in the left lower lobe. New patchy opacity in the periphery of the right lower lobe representing atelectasis or early/developing pneumonia. Follow-up chest imaging to resolution recommended. Electronically Signed: Raffi Perla MD at 15:55 EDT , EKG Initial EKG: Interpretation: Sinus Rhythm (Sinus at 66 with no acute ischemia.) Treatment and Re-Evaluation Narrative: CBC and chemistry studies largely unremarkable. Creatinine is 3.36, consistent with his baseline. Portable chest x-ray per my interpretation was chronic changes with questionable peripheral infiltrate. Radiology does feel that there is new opacity in the right lower lobe. COVID test is negative. With patient's constitution of symptoms I will treat him with a course of Levaquin. Due to his creatinine clearance he will be due for a dose every 48 hours. Return instructions are provided. Discharge Plan Triage Chief Complaint: Cough ED Provider: Jenn Pineda Dx/Rx/DC Orders Clinical Impression: Pneumonia Instructions: ED Pneumonia (Adult) Prescriptions: New levofloxacin 750 mg tablet 750 mg PO Q48H Qty: 2 0RF No Action clonidine HCl 0.1 mg tablet 0.1 mg PO BID metoprolol tartrate 100 mg tablet 100 mg PO BID Qty: 180 3RF diltiazem HCl 120 mg capsule,extended release 24hr 120 mg PO BID Qty: 180 3RF Label Comments: take 1 capsule by mouth once daily tamsulosin 0.4 MG capsule 0.4 mg PO BID Label Comments: PROSTATE allopurinol 100 MG tablet 100 mg PO DAILYCM Label Comments: GOUT finasteride 5 MG tablet 5 mg PO DAILY Label Comments: BPH ondansetron 4 mg Tablet,Disintegrating 4 mg PO Q6H PRN (Reason: Nausea) vancomycin 125 mg capsule 125 mg PO Q6H Qty: 20 0RF ferrous sulfate 325 mg (65 mg iron) tablet 325 mg PO BID Qty: 60 0RF pantoprazole 40 mg tablet,delayed release (DR/EC) 40 mg PO DAILY Qty: 90 0RF Rx Instructions: take 1 tablet by mouth once daily levothyroxine 100 mcg tablet 100 mcg PO DAILY 30 Days Qty: 30 2RF Primary Care Provider: Houston Oslon Referrals: Houston Olson DO [Primary Care Provider] - 1 Week if not improving Disposition Disposition: Home, Self Care
--- NOTE | 2022-01-17 14:50 | RAD_ITS ---
STUDY: X-RAY CHEST REASON FOR EXAM: Male, 66 years old. Cough. TECHNIQUE: Single frontal view of the chest. COMPARISON: 12/27/2021. FINDINGS: Patchy peripheral opacity in the right lower lobe representing atelectasis or early/developing pneumonia. Stable scarring in the left midlung zone. Mild diffuse interstitial pattern unchanged. There is no demonstrated pleural abnormality. Stable cardiomegaly. Normal mediastinum and yessi. Normal visualized pulmonary arteries. Normal visualized aortic arch and descending thoracic aorta. Normal visualized thoracic spine. Normal visualized ribs, clavicles, and shoulders. There is no demonstrated abnormality of the visualized soft tissue structures of the upper abdomen. RAD/Chest 1 View (Portable) IMPRESSION: Stable cardiomegaly with scarring in the left lower lobe. New patchy opacity in the periphery of the right lower lobe representing atelectasis or early/developing pneumonia. Follow-up chest imaging to resolution recommended. Electronically Signed: Raffi Perla MD at 15:55 EDT ,
[2022-01-17 15:16] LABS: Absolute Lymphocyte Count 0.86 X10^3/uL (0.83-4.51); Absolute Neutrophil Count 6.2 X10^3/uL (2.0-7.7); Basophil# 0.07 X10^3/uL; Basophil% 0.8 % (0-1); Eosinophil# 0.28 X10^3/uL; Eosinophils% 3.4 % (0-5); Hematocrit 31.8 % (40-54); Hemoglobin 9.2 g/dL (13.0-16.5); Lymphocyte # 0.86 X10^3/ul (0.83-4.51); Lymphocyte % 10.4 % (19-41); Mean Corp Hgb Conc 28.9 g/dL (32-36); Mean Corpuscular Hgb 26.5 pg (27.0-32.0); Mean Corpuscular Volume 91.6 fL (80-94); Mean Platelet Vol. 9.4 fl (6.2-12.0); Monocyte# 0.74 X10^3/uL; NRBC Flagged by Analyzer 0 % (0-5); Neutrophil # 6.24 X10^3/uL (2.7-7.7); Neutrophil % 75.7 % (47-70); Platelet Count 267 K/mm3 (150-450); RBC Distribution Width CV 18.3 % (11.6-14.6); Red Blood Count 3.47 M/mm3 (4.6-6.2); White Blood Count 8.3 K/mm3 (4.4-11.0)
[2022-01-17 15:31] LABS: Anion Gap 7 (5-15); BUN 45 mg/dL (7-18); BUN/Creat Ratio 13.4 RATIO (10-20); Calcium,Total 8.8 mg/dL (8.5-10.1); Chloride 111 mmol/L (98-107); Creatinine, Serum 3.36 mg/dL (0.70-1.30); EST Glomerular Filtration Rate 20 mL/min (>60); Est Glom Filt Rate - Afr Amer 24 mL/min (>60); Estimated Creatinine Clearance 22.72 ml/min; Glucose 104 mg/dL (74-106); Potassium 4.5 mmol/L (3.5-5.1); Sodium Level 139 mmol/L (136-145)
[2022-01-17] MEDS: levoFLOXacin 750 MG Tablet PO (17:17)
== END 2022-01-17 17:22 | disposition home or self-care (01) ==
PROVIDERS: Emergency Provider Emergency Medicine; PCP Family Medicine; Visit Provider Emergency Medicine
DX: J18.9 Pneumonia, unspecified organism (principal); I13.0 Hypertensive heart and chronic kidney disease with heart failure and stage 1 through stage 4 chronic kidney disease, or unspecified chronic kidney disease; I50.32 Chronic diastolic (congestive) heart failure; E11.22 Type 2 diabetes mellitus with diabetic chronic kidney disease; N18.4 Chronic kidney disease, stage 4 (severe); I48.0 Paroxysmal atrial fibrillation; E03.9 Hypothyroidism, unspecified; E66.9 Obesity, unspecified; Z79.890 Hormone replacement therapy; Z86.711 Personal history of pulmonary embolism; Z86.16 Personal history of COVID-19; Z86.718 Personal history of other venous thrombosis and embolism; Z90.5 Acquired absence of kidney
CPT/HCPCS: 71045; 80048; 85025; 87811; 93005; 99283

== ENCOUNTER 2022-02-25 09:42 | Day surgery (SDC) | payer MEDICARE, SELFPAY ==
[2022-02-17 15:14] LABS: Hematocrit 33.6 % (40-54); Hemoglobin 10.3 g/dL (13.0-16.5); Mean Corp Hgb Conc 30.7 g/dL (32-36); Mean Corpuscular Hgb 27.9 pg (27.0-32.0); Mean Corpuscular Volume 91.1 fL (80-94); Mean Platelet Vol. 9.9 fl (6.2-12.0); Platelet Count 261 K/mm3 (150-450); RBC Distribution Width CV 18.5 % (11.6-14.6); Red Blood Count 3.69 M/mm3 (4.6-6.2); White Blood Count 8.9 K/mm3 (4.4-11.0)
[2022-02-17 15:36] LABS: Anion Gap 6 (5-15); BUN 55 mg/dL (7-18); Calcium,Total 9.7 mg/dL (8.5-10.1); Chloride 106 mmol/L (98-107); Creatinine, Serum 3.94 mg/dL (0.70-1.30); EST Glomerular Filtration Rate 16 mL/min (>60); Est Glom Filt Rate - Afr Amer 20 mL/min (>60); Glucose 155 mg/dL (74-106); Potassium 4.3 mmol/L (3.5-5.1); Sodium Level 138 mmol/L (136-145)
[2022-02-25] VITALS (7 sets, daily range): BP systolic 122–150; BP diastolic 55–74; PULSE 60–65; RESP 16–18; TEMP 36.3–36.5; O2SAT 93–99; BMI 37.8
[2022-02-25] MEDS: Heparin Injection (Vial) 5,000 UNIT/ML VIAL 5000 UNIT (09:54)
[2022-02-25] MEDS: Lidocaine 1% (20 ml mdv) 20 ML Vial (09:54)
[2022-02-25] MEDS: Bupivacaine 0.25% 30 ML Vial (09:55)
--- NOTE | 2022-02-25 10:07 | PCM.HP.BLA ---
History and Physical Date of Admission: 02/25/22 Visit Reasons:?FISTULA Chief Complaint: Fistula consult Animal Rides Manager Required: No Is patient in pain?: No Allergies Penicillins [PCN] Allergy (Verified 02/11/22 14:25) PT UNSURE OF REACTION Medications tamsulosin 0.4 mg capsule 0.4 mg PO BID prostate 11/09/14 [History Confirmed 02/11/22] allopurinol 100 mg tablet 100 mg PO DAILYCM gout 05/03/15 [History Confirmed 02/11/22] finasteride 5 mg tablet 5 mg PO DAILY prostate 05/03/15 [History Confirmed 02/11/22] pantoprazole 40 mg tablet,delayed release 40 mg PO DAILY #90 tabs 02/02/20 [Rx Confirmed 02/11/22] clonidine HCl 0.1 mg tablet 0.1 mg PO BID blood pressure 09/25/21 [History Confirmed 02/11/22] diltiazem HCl 120 mg capsule,extended release 24 hr 120 mg PO BID #180 caps 11/07/21 [Rx Confirmed 02/11/22] metoprolol tartrate 100 mg tablet 100 mg PO BID #180 tabs 11/07/21 [Rx Confirmed 02/11/22] ondansetron 4 mg disintegrating tablet 4 mg PO Q6H PRN Nausea 01/03/22 [History Confirmed 02/11/22] ferrous sulfate 325 mg (65 mg iron) tablet 325 mg PO BID #60 tabs 01/06/22 [Rx Confirmed 02/11/22] vancomycin 125 mg capsule 125 mg PO Q6H #20 caps 01/06/22 [Rx Confirmed 02/11/22] levofloxacin 750 mg tablet 750 mg PO Q48H #2 tabs 01/17/22 [Rx Confirmed 02/11/22] levothyroxine 100 mcg tablet 100 mcg PO DAILY 30 days #30 tabs 01/21/22 [Rx Confirmed 02/11/22] PFSH Medical History? Abnormal CT of the abdomen Anemia Atrial fibrillation with rapid ventricular response (07/04/19) Bilateral pulmonary embolism (11/19/14) Cancer Chronic diastolic (congestive) heart failure CKD (chronic kidney disease) stage 4, GFR 15-29 ml/min Coronary artery disease COVID-19 (07/11/21) Deep vein thrombosis of right lower extremity (11/19/14) Diabetes Encounter for education Essential (primary) hypertension GERD (gastroesophageal reflux disease) Gout Hypertension Hypothyroidism Hypothyroidism Metastatic 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 Neoplastic (malignant) related fatigue Obesity Pancreatic mass Pancreatitis Paroxysmal atrial fibrillation Pneumonitis Renal cell cancer Renal dysfunction Type 2 diabetes mellitus Viral URI Surgical History? History of colonoscopy (2018) History of left nephrectomy (2010) History of total hip arthroplasty (04/2015) Family History? Mother Diabetes Heart disease Kidney disease Hypertension CVA (cerebral vascular accident)Father Heart disease Social History? Smoking Status:? Never smoker second hand exposure:? No alcohol intake:? never substance use type:? does not use caffeine:? Yes frequency:? does not exercise HPI HPI HPI: KRISSY SAAVEDRA, is a 66 M who presents to the office today for surgical consultation regarding creation of arteriovenous hemodialysis fistula.? Patient is referred by Dr. Lana Tucker and a written copy of my surgical consult recommendations will return to her.? Patient currently has a estimated GFR of 18 cc/min.? History of a solitary kidney.? He has had a previous history of a right nephrectomy for renal cancer.? Is recently been hospitalized with acute pancreatitis.? He has metastatic disease to his lungs.? As recently as January 17, 2022 through the [facility] emergency room he was diagnosed with right lower lobe pneumonia.? Treated with Levaquin. The patient is right arm dominant.? He states that during his recent hospitalization he had a PICC line in the right upper extremity.? He states it clotted within 2 days of being placed and was not utilized but it was kept in place until his discharge.? The vein mapping below was obtained prior to his hospitalization and therefore does not likely represent a completely accurate evaluation of his upper extremities secondary to his hospitalization and IV interventions with I the placement and laboratory draws. December 15, 2021 Reason For Study: CKD stage 4 Right Arm? Left Arm Right Cephalic Vein at the wrist measures? Left Cephalic Vein at the wrist measures 0.24 0.40 x 0.36 cm.? x 0.26 cm. Right Cephalic Vein in the forearm measures? Left Cephalic Vein in the forearm measures 0.38 x 0.37 cm.? 0.25 x 0.26 cm. Right Cephalic Vein below antecub measures ? Left Cephalic Vein below antecub measures 0.33 x 0.31 cm.? 0.31 x 0.32 cm. Right Cephalic Vein above antecub measures ? Left Cephalic Vein above antecub measures 0.36 x 0.37 cm.? 0.15 x 0.16 cm. Right Cephalic Vein mid bicep measures 0.34? Left Cephalic Vein at mid bicep measures 0.22 x 0.34 cm. ? x 0.22 cm. Right Cephalic Vein at the shoulder measures ? Left Cephalic Vein at the shoulder measures 0.25 x 0.26 cm.? 0.16 x 0.16 cm. Right Basilic Vein at the origin measures? Cephalic vein from axilla to mid bicep area 0.37 x 0.37 cm.? is tortuous. Right Basilic Vein mid bicep measures 0.37 x ? Basilic vein at origin measures 0.50 x 0.50 0.37 cm. ? cm. Right Basilic Vein above antecub measures? Basilic vein at bicep measures 0.48 x 0.51 0.27 x 0.27 cm.? cm. Right Brachial artery measures 0.42 x 0.42 ? Basilic vein above antecub measures 0.48 x cm with a velocity of 123.5 cm/sec.? 0.48 cm. Right Radial artery measures 0.25 x 0.25 cm? Lt Brachial artery measures 0.38 x 0.38 cm with a velocity of 132.5 cm/sec. ? with a velocity of 150.7 cm/sec. ? Lt Radial artery measures 0.25 x 0.27 cm with ? a velocity of 96 cm/sec. VL/Dialysis Vein Map PRE-OP BILAT Interpretation Summary Patent and compressible bilateral upper extremity cephalic and basilic veins with dimensions as noted. Adequate diameter and flow bilateral radial and brachial arteries ? Ordering Physician: Lana Tucker Referring Physician: Houston Olson Performed By: Lee Ann Sommer RVT General General: Yes weight change and fatigue; No appetite, colon cancer, breast cancer or weakness HEENT HEENT: No difficulty swallowing, eye injury, eye surgery, swollen glands or hoarseness Endo Endocrine: Yes diabetes mellitus; No thyroid disease, thyroid cancer, Hair loss, heat intolerance or cold intolerance Skin Skin: No rash or changing moles Breast Breast: No left breast lump, right breast lump, nipple discharge, breast pain, abnormal mammogram, abnormal US or breast enlargement Musc Musculoskeletal: Yes back problems and gout; No arthritis, rheumatoid arthritis or joint pain Cardio Cardiovascular: Yes heart disease and high blood pressure; No murmur, pacemaker, atrial fibrillation, heart attack, heart stent, palpitations, shortness of breat with exertion or chest pain Psych Psychiatric: No depression, anxiety or hearing voices Resp Respiratory: No shortness of breath, No sleep apnea, Yes cough, No COPD, No asthma, No emphysema and No wheezing Gastro Gastrointestinal: No abdominal pain, No nausea or vomiting, Yes diarrhea, Yes constipation, No blood in stool, No acid reflux, No hemorrhoids, No ulcers, No gallbladder problem and Yes black,tarry stools Additional Details: pancreatitis Omid Hematologic: No blood thinners, No blood disorders, No bleeding, No anemia and No blood clots Neuro Neurologic: No system reviewed and no additional complaints, except as documented, No as per HPI, No abnormal gait, No abnormal hearing, No abnormal movements, No abnormal speech, No behavioral changes, No burning sensations, No confusion, No convulsions, No disequilibrium, No dizziness, No localized weakness, No frequent falls, No headache(s), No lack of coordination, No loss of vision, No memory loss, No numbness, No other visual disturbances, No radicular pain, No restless legs, No sensory deficit, No syncope, No tingling, No tremor(s), No weakness and No other Exam Const General: cooperative and no acute distress [facility] Head: normal to inspection Eyes General: appearance normal, both eyes and all related structures Chest Chest palpation & inspection: normal inspection of the chest Resp Effort & Inspection: normal respiratory effort Auscultation: clear to auscultation bilaterally Cardio Rate: regular rate Rhythm: regular rhythm GI Other: Notably overweight, I cannot detect any internal organs Skin Other: Hyperpigmentation bilateral lower extremities Neuro General: patient alert, patient awake and patient oriented x3 Extrem Other: Left upper extremity.? 3+ radial pulse.? Ultrasound section reveals patent cephalic vein with branching about 6 cm proximal to the wrist.? The remainder of the cephalic vein appears to be patent and compressible.? There appears to be crossover at the antecubital space and outflow via the basilic vein. Significant bilateral extremity nonpitting edema right worse than the left Psych Appearance: grossly normal Assessment and Plan Assessment and Plan (1) Metastatic 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: ?Status:?Acute ?Qualifiers: ?Laterality:?unspecified laterality? Qualified Code(s):?C78.00 - Secondary malignant neoplasm of unspecified lung; C64.9 - Malignant neoplasm of unspecified kidney, except renal pelvis ?Comment: ?CT 10/02/21? shows stable disease, no evidence of progression. Kyetruda and Axitinib on hold because of Renal dysfunction. Cr was 3.14 on 09/25/2021. On treatment break since March 2021. Now recovering from pancreatitis since 12/27/2021. (2) Pancreatic mass: ?Status:?Acute ?Comment: ANC vs Metastatic Renal cancer, Lipase has normalized. (3) Chronic kidney failure: ?Status:?Chronic ?Plan: I recommend to the patient a left forearm radial to cephalic arteriovenous hemodialysis fistula creation.? I have discussed the technique, benefit, risk of alternatives.? I anticipate performing ultrasound inspection mapping chest preoperatively at the time of this procedure.? I may need to create the fistula slightly more proximally on the forearm at the site of branching.? He is aware of technique, benefit, risk of alternatives It is of note that he was on Xarelto anticoagulation for DVT and PE extending from 2014 up until just recently where according to him the hospitalist during his hospitalization cease the medication.? The patient tells me that Dr. Houston Olson is aware.? The patient does not think he has previously undergone hematologic evaluation.? He does make comment that the PICC line rapidly assaulted in his right upper extremity but he states that he was instructed that this was secondary to the lack of appropriate flushing. We will initiate him on 81 mg aspirin daily if approved by Dr. Olson and Dr Kuhn and Dr. Lana Tucker The patient's had an opportunity to ask and have questions answered.? We will schedule and proceed at his discretion. Copy: Dr. Houston Olson and Dr. Jeffrey Kuhn and Dr. Lana Ralph M.D., F.A.C.S I have re-examined the patient. There are no clinical changes since date of exam. Willy Ralph M.D., F.A.C.S.
--- NOTE | 2022-02-25 10:08 | DCINST_ITS ---
Discharge Instructions Procedure Fistula Diet Discharge Diet: Renal Diet Activity Discharge Activity: May Not Drive (for 2-3 days or while taking narcotic pain medications.), May Shower and May Take a Tub Bath (in 5 days.) Lifting Restrictions: 5 pounds Keep extremity elevated above heart level: - (Keep arm elevated above the heart level for 3 days.) Dressing / Incision Call your doctor if your incision/area has: Continuous Slow Oozing, Sudden Increased Bleeding (apply pressure and call your doctor.), Increased Pain/ Swelling, Increased Redness and Foul Smelling Discharge Call your doctor if you observe: Fever of 101 or Higher Suture Line Care: Avoid Pulling/Pushing and Avoid Pinching/Bending Cleanse incision/area with: Keep Dressing Clean & Dry Additional Dressing/Incision Instructions:: Change or remove dressing in one day. May protect with a gauze bandaid. Follow Up Care Please Follow Up With: Willy Ralph MD When: Call [phone] to make an appointment for suture removal and follow up in 1 week. Test Results: Test results from this visit will be discussed in further detail at your follow- up appointment, if applicable. Discharge Plan Admission Attending Provider: Willy Ralph Primary Care Provider: Houston Olson Discharge Orders/Prescriptions Prescriptions: No Action clonidine HCl 0.1 mg tablet 0.1 mg PO BID metoprolol tartrate 100 mg tablet 100 mg PO BID Qty: 180 3RF diltiazem HCl 120 mg capsule,extended release 24hr 120 mg PO BID Qty: 180 3RF Label Comments: take 1 capsule by mouth once daily aspirin 81 mg tablet,delayed release (DR/EC) 81 mg PO DAILY tamsulosin 0.4 MG capsule 0.4 mg PO BID Label Comments: PROSTATE allopurinol 100 MG tablet 100 mg PO DAILYCM Label Comments: GOUT finasteride 5 MG tablet 5 mg PO DAILY Label Comments: BPH ferrous sulfate 325 mg (65 mg iron) tablet 325 mg PO BID Qty: 60 0RF pantoprazole 40 mg tablet,delayed release (DR/EC) 40 mg PO DAILY Rx Instructions: take 1 tablet by mouth once daily furosemide 40 mg Tablet 40 mg PO DAILY doxycycline monohydrate 100 mg Tablet 100 mg PO BID levothyroxine 100 mcg tablet 100 mcg PO DAILY 30 Days Qty: 30 2RF Referrals / Follow Up: Whitney,Houston, DO [Primary Care Provider] - Disposition Disposition (needs filled in before D/C Order can be placed): Home, Self Care
--- NOTE | 2022-02-25 11:52 | PCM.OPRPT ---
Report of Operation Date of Procedure: 02/25/22 Pre-Operative Diagnosis: Stage IV chronic renal insufficiency Post-Operative Diagnosis: Same Surgery/Procedure Performed:: Transposition left forearm cephalic vein to radial artery arteriovenous hemodialysis fistula creation Description of Surgical Findings:: Timeout and informed consent was obtained. 66-year-old gentleman was taken to the operating placed on the table underwent monitored anesthesia care. 1% lidocaine mixed 50-50 with 0.05% Marcaine was used as a local anesthetic. Throughout the procedure 8 cc was used. Ultrasound been used to map the cephalic vein in the distal third of the forearm local was instilled. A longitudinal incision was made over the vein to where it was made at a branching point. Sharp and blunt dissection was used to mobilize the cephalic vein over a total distance of approximately 8 to 10 cm. Somewhat was set was performed in the subcu cutaneous plane into the undermining technique or proximally. Then local was instilled and a longitudinal incision was made over the radial artery. The distance from the 2 made it not feasible to do this all through 1 incision. Sharp on that section is identified then defy the radial artery side branches were secured with hemoclips and the artery was mobilized. Then the vein was ligated distally with hemoclips at the branch point it was then spatulated to make for a more generous anastomosis used a curved tunneler it was tunneled from the harvest incision to the radial artery incision. The patient received 10,000 units of heparin weight-based. Peripheral vascular clamps were placed on the radial artery and 11 blade was used to make an arteriotomy was extended with Fisher scissors. A end-to-side anastomosis created with a running 7-0 Prolene. Good flow was achieved. Repair suture of 7-0 Prolene was used to obtain complete hemostasis. The hand was inspected was noted to be viable and pink. The fistula had a strong pulse thrill and bruit. The wounds were closed with deep layers of interrupted 3-0 Vicryl and then a running septic of 4-0 Monocryl. Steri-Strips Telfa gauze dressings applied. Sponge and instrument and needle counts were reported to the surgeon be correct. Specimens none. Drains none. Blood loss minimal. The patient was taken to the recovery room in satisfactory addition no apparent complication My signature Surgeon: Willy Ralph Anesthesiologist: Gertrude Varela
--- NOTE | 2022-02-25 12:00 | RAD_ITS ---
INDICATION: AV FISTULA EXAMINATION/TECHNIQUE: X-RAY - LEFT XR Forearm 2 Views 2 VIEWS COMPARISON: None. FINDINGS: SOFT TISSUES: Soft tissue prominence visualized consistent with postoperative changes.. Surgical curtis are visualized in the soft tissues, a total of 16 curtis are visualized. No radiopaque foreign body. BONES/JOINTS: No acute fracture or subluxation.. Normal alignment. RAD/Forearm 2 Views IMPRESSION: No evidence of apical body is seen. Electronically Signed: Gentry Bustamante MD at 12:24 EDT ,
== END 2022-02-25 14:17 | disposition home or self-care (01) ==
LOC: SDC 09:42 → AC 09:42
PROVIDERS: PCP Family Medicine; Referring Provider Surgery; Visit Provider Surgery
PROC: (CPT 36821; principal; 2022-02-25 13:15)
DX: I12.9 Hypertensive chronic kidney disease with stage 1 through stage 4 chronic kidney disease, or unspecified chronic kidney disease (principal); C78.01 Secondary malignant neoplasm of right lung; C78.02 Secondary malignant neoplasm of left lung; C64.9 Malignant neoplasm of unspecified kidney, except renal pelvis; E11.22 Type 2 diabetes mellitus with diabetic chronic kidney disease; N18.4 Chronic kidney disease, stage 4 (severe); I48.91 Unspecified atrial fibrillation; I25.10 Atherosclerotic heart disease of native coronary artery without angina pectoris; E03.9 Hypothyroidism, unspecified; K21.9 Gastro-esophageal reflux disease without esophagitis; Z79.01 Long term (current) use of anticoagulants; Z79.82 Long term (current) use of aspirin; Z79.890 Hormone replacement therapy; Z79.899 Other long term (current) drug therapy; Z86.711 Personal history of pulmonary embolism
CPT/HCPCS: 36821; 01844; 36415; 73090; 80048; 85027; 87426; C9803; J7040

== ENCOUNTER → 2022-03-09 | Outpatient (CLI) | payer MEDICARE, SELFPAY ==
--- NOTE | 2022-03-09 12:37 | CT_ITS ---
STUDY: CT CHEST, ABDOMEN T PELVIS WITHOUT CONTRAST REASON FOR EXAM: Male, 66 years old. metastatic renal ca - oral contrast only RADIATION DOSAGE (If Supplied By Facility): CTDIvol = ( 19.07 ) mGy, DLP = ( 2395.79 ) mGycm TECHNIQUE: Transaxial imaging was performed without the administration of intravenous contrast material. Individualized dose optimization techniques were used for this CT. COMPARISON: 10/02/2021 FINDINGS: CHEST Interval development of multiple noncalcified nodules within the lungs worrisome for metastatic disease. Furthermore, the nodule in the medial right middle lobe the lungs is increased in size from 5 to 7 mm in diameter on image 84. The nodule in the anterior right lower lobe adjacent to the major fissure has increased in size from 5 to 6 cm in diameter on image 89.. There is no demonstrated pleural abnormality. Normal heart and pericardium. There are calcifications of the coronary arteries. Normal mediastinum. Normal hilar regions. Normal unenhanced pulmonary arteries. Normal aorta arch and descending thoracic aorta. Normal osseous structures. There is no demonstrated abnormality of the visualized upper abdomen. ABDOMEN The visualized lung bases are unremarkable. The visualized portions of the heart are within normal limits. Normal liver. Normal gallbladder and extrahepatic biliary system. Normal spleen. Interval development of a 4 cm round necrotic mass of the body the pancreas worrisome for pancreatic carcinoma or metastatic renal cell carcinoma. Correlation with CT of the abdomen and pelvis with oral and intravenous contrast would be useful. Correlation with PET CT scan would be useful. Normal bilateral adrenal glands. No change in innumerable cysts of the right kidney. Status post left nephrectomy. Normal visualized stomach. Normal small intestine. Normal colon. There is non-visualization of the appendix. Normal abdominal aorta. Normal inferior vena cava. Normal retroperitoneum. Normal abdominal wall. Normal osseous structures. PELVIS Normal urinary bladder. Normal visualized small intestine. Normal visualized colon. There is no pelvic fluid. There is no pelvic lymphadenopathy or mass lesion. Normal visualized pelvic arteries. Normal abdominal wall. Status post right hip arthroplasty which produces streak artifact obscures the pelvis. CT/CT Chest, Abd, Pelvis WO Cont IMPRESSION: 1. New and larger small pulmonary nodule worrisome for pulmonary metastases. 2. New 4 cm necrotic mass of the body the pancreas worrisome for pancreatic carcinoma or metastatic renal cell carcinoma. Correlation with CT of the abdomen and pelvis with oral and intravenous contrast and PET CT scan would be useful. Electronically Signed: Fred Foley MD at 17:21 EDT ,
== END | disposition home or self-care (01) ==
LOC: CT 12:36
PROVIDERS: PCP Family Medicine; Referring Provider Internal Medicine Medical Oncology; Visit Provider Internal Medicine Medical Oncology
DX: I25.10 Atherosclerotic heart disease of native coronary artery without angina pectoris (principal); R91.8 Other nonspecific abnormal finding of lung field; Z90.5 Acquired absence of kidney; Z96.641 Presence of right artificial hip joint; N28.1 Cyst of kidney, acquired
CPT/HCPCS: 71250; 74176

== ENCOUNTER → 2022-04-21 | Outpatient (CLI) | payer MEDICARE, SELFPAY ==
[2022-04-21 12:35] LABS: Hematocrit 33.4 % (40-54); Hemoglobin 10.5 g/dL (13.0-16.5); Mean Corp Hgb Conc 31.4 g/dL (32-36); Mean Corpuscular Hgb 29.2 pg (27.0-32.0); Mean Platelet Vol. 9.4 fl (6.2-12.0); Platelet Count 242 K/mm3 (150-450); RBC Distribution Width CV 15.5 % (11.6-14.6); RBC Distribution Width SD 51.8 fl (35.1-43.9); Red Blood Count 3.59 M/mm3 (4.6-6.2); White Blood Count 6.9 K/mm3 (4.4-11.0)
[2022-04-21 12:50] LABS: Albumin, Serum 2.5 g/dL (3.2-5.0); BUN 56 mg/dL (7-18); BUN/Creat Ratio 13.4 RATIO (10-20); Chloride 107 mmol/L (98-107); Creatinine, Serum 4.19 mg/dL (0.70-1.30); EST Glomerular Filtration Rate 15 mL/min (>60); Est Glom Filt Rate - Afr Amer 18 mL/min (>60); Ferritin 172 ng/mL (26-388); Glucose 168 mg/dL (74-106); Iron 29 ug/dL (65-175); Iron Binding Capacity,Total 225 ug/dL (250-450); PERCENT IRON SATURATION 12.9 % (15.0-55.0); Phosphorus 3.6 mg/dL (2.5-4.9); Potassium 3.8 mmol/L (3.5-5.1); Sodium Level 140 mmol/L (136-145)
[2022-04-21 12:54] LABS: PTHIN 29.1 pg/mL (18.4-80.1)
== END | disposition home or self-care (01) ==
LOC: POLAB3 11:56
PROVIDERS: PCP Family Medicine; Visit Provider Internal Medicine Nephrology
DX: N18.4 Chronic kidney disease, stage 4 (severe) (principal)
CPT/HCPCS: 36415; 80069; 82728; 83540; 83550; 83970; 85027

== ENCOUNTER → 2022-04-25 | Outpatient (CLI) | payer MEDICARE, SELFPAY | END | disposition home or self-care (01) | LOC: LAB 09:16 | PROVIDERS: PCP Family Medicine; Visit Provider Family Medicine | DX: R19.7 Diarrhea, unspecified (principal) | CPT/HCPCS: 87493 ==

== ENCOUNTER → 2022-05-11 | Outpatient (CLI) | payer MEDICARE, SELFPAY ==
--- NOTE | 2022-05-11 12:49 | CT_ITS ---
STUDY: CT CHEST, ABDOMEN T PELVIS WITHOUT CONTRAST REASON FOR EXAM: Male, 66 years old. MONITOR LUNG NODULES-PANCREATIC MASS RADIATION DOSAGE (If Supplied By Facility): CTDIvol = ( 25.75 ) mGy, DLP = ( 2299.31 ) mGycm TECHNIQUE: Transaxial imaging was performed without the administration of intravenous contrast material. Multiplanar coronal and sagittal images were reformatted. Individualized dose optimization techniques were used for this CT. COMPARISON: March 09, 2022 CT scan chest abdomen and pelvis, December 17, 2020 CT scan chest FINDINGS: CHEST There are multiple bilateral pulmonary nodules. In the right apex there is a 5.6 mm nodule stable when compared to prior study. There are multiple similar-appearing nodules. In the right middle lobe there is a nodule measuring 7.7 mm stable since the prior study. There is a nodule measuring 8.2 mm within the right lower lobe similar to the prior study. There is minor left pleural thickening. Stable since the prior study March 09, 2022 by most are new or enlarged since December 17, 2021. There is no demonstrated pleural abnormality. There is mild cardiac enlargement there is coronary calcification. There is a precarinal lymph node measuring 2.1 x 1.5 cm slightly larger when compared to prior study when it measured 1.7 x 1.5 cm. This is also larger than prior study December 17, 2020 when it measured 1.3 x 0.7 cm. There is an AP window lymph node measuring 1.5 cm stable when compared to prior study. There is a left and midline pretracheal lymph node measuring 2.0 cm stable since the prior study. There is subcarinal lymphadenopathy measuring 1.5 cm and 2.8 cm stable since prior study. Normal hilar regions. Normal unenhanced pulmonary arteries. Normal aorta arch and descending thoracic aorta. There are multi-level degenerative changes of the thoracic spine. There is no demonstrated abnormality of the visualized upper abdomen. ABDOMEN The visualized lung bases are unremarkable. Is visualized coronary calcification. Normal liver. Normal gallbladder and extrahepatic biliary system. There is mild splenomegaly. Stable since prior study. The pancreas is mostly atrophied. Within the body of the pancreas is a 4.2 x 4.6 cm mass. On prior study it measured 4.0 x 3.9 cm. Towards the tail the pancreas 3.9 x 3.1 cm mass. On prior study there is a 3.9 x 3.4 cm mass. The left adrenal gland is not well visualized and is either been removed or there is postoperative change. This is stable since prior study. Multiple stable cysts surrounding the right kidney. There is a partially calcified cystic structure right kidney measuring 7.2 x 7.4 cm stable since prior study. There is a right-sided renal cyst measuring explain 5 x 8.6 cm. The left kidney has been surgically removed. Normal visualized stomach. Normal small intestine. There is moderate stool in the colon.. The appendix is visualized and appears normal. Normal abdominal aorta. Normal inferior vena cava. There are multiple small retroperitoneal lymph nodes. Normal abdominal wall. There is degenerative change within the thoracolumbar spine. There is multilevel spondylosis disc space narrowing. At the level of L2 L3 L3 L4 L4 L5 and L5-S1 there is moderate to severe neural foraminal narrowing moderate to severe central stenosis. PELVIS The bladder is decompressed. Normal visualized small intestine. There is moderate stool in the colon. There is no pelvic fluid. There is no pelvic lymphadenopathy or mass lesion. There are prostatic calcifications. Is minimal calcification of the common iliac arteries. Normal abdominal wall. Multilevel degenerative change of the thoracolumbar spine. There is a right hip arthroplasty. CT/CT Chest, Abd, Pelvis WO Cont IMPRESSION: There are multiple pulmonary nodules relatively stable when compared to more recent prior study March 09, 2022 but new or enlarged since the December 17, 2020. There are 2 masses within the pancreas 1, towards the tail the pancreas and one towards the body of the pancreas. These appear new since prior study December 17, 2020. The one towards the tail the pancreas is similar in size. The one towards the head of the pancreas is enlarged since prior study. Stable multicystic right kidney. Status post left nephrectomy. Stable mild splenomegaly. Stable mild mesenteric edema. Moderate constipation. Status post right hip arthroplasty. Advanced degenerative change of the thoracolumbar spine. Multiple enlarging reactive metastatic lymph nodes within the mediastinum stable since more recent study Enlarged since prior study December 17, 2020.. Electronically Signed: Christal Chandler MD at 5:56 EDT ,
== END | disposition home or self-care (01) ==
LOC: CT 12:48
PROVIDERS: PCP Family Medicine; Referring Provider Internal Medicine Medical Oncology; Visit Provider Internal Medicine Medical Oncology
DX: K86.89 Other specified diseases of pancreas (principal); C78.00 Secondary malignant neoplasm of unspecified lung; C64.9 Malignant neoplasm of unspecified kidney, except renal pelvis
CPT/HCPCS: 71250; 74176

== ENCOUNTER → 2022-08-05 | Outpatient (CLI) | payer MEDICARE, SELFPAY ==
[2022-08-05 10:55] LABS: BUN 73 mg/dL (7-18); BUN/Creat Ratio 16.4 RATIO (10-20); Calcium,Total 9.4 mg/dL (8.5-10.1); Chloride 111 mmol/L (98-107); Creatinine, Serum 4.44 mg/dL (0.70-1.30); EST Glomerular Filtration Rate 14 mL/min (>60); Est Glom Filt Rate - Afr Amer 17 mL/min (>60); Glucose 214 mg/dL (74-106); Phosphorus 4.1 mg/dL (2.5-4.9); Sodium Level 142 mmol/L (136-145)
[2022-08-05 12:49] LABS: PTHIN 26.6 pg/mL (18.4-80.1)
== END | disposition home or self-care (01) ==
LOC: PAVLAB 10:26
PROVIDERS: PCP Family Medicine; Referring Provider Internal Medicine Nephrology; Visit Provider Internal Medicine Nephrology
DX: N18.4 Chronic kidney disease, stage 4 (severe) (principal)
CPT/HCPCS: 36415; 80069; 83970

== ENCOUNTER → 2022-09-07 | Outpatient (CLI) | payer MEDICARE, SELFPAY ==
[2022-09-07 16:26] LABS: AST(SGOT) 8 U/L (15-37); Alanine Aminotransfer ALT/SGPT 13 U/L (16-61); Albumin, Serum 3.1 g/dL (3.2-5.0); Alkaline Phosphatase 48 U/L (45-117); Bilirubin, Direct 0.23 mg/dL (0.00-0.30); Globulin 3.8 g/dL (2.2-4.2); Protein, Total 6.9 g/dL (6.4-8.2)
== END | disposition home or self-care (01) ==
LOC: BFHLAB 13:46
PROVIDERS: PCP Family Medicine; Visit Provider Family Medicine
DX: R17 Unspecified jaundice (principal)
CPT/HCPCS: 36415; 80076

== ENCOUNTER → 2022-09-14 | Outpatient (CLI) | payer MEDICARE, SELFPAY ==
--- NOTE | 2022-09-14 13:37 | CT_ITS ---
STUDY: CT CHEST, ABDOMEN T PELVIS WITHOUT CONTRAST REASON FOR EXAM: Male, 66 years old. MONITOR RENAL CA. History of metastatic renal cell carcinoma with metastatic deposits in the lung. Prior left nephrectomy. RADIATION DOSAGE (If Supplied By Facility): CTDIvol = ( 25.58 ) mGy, DLP = ( 2327.32 ) mGycm TECHNIQUE: Transaxial imaging was performed without the administration of intravenous contrast material. Multiplanar coronal and sagittal images were reformatted. Individualized dose optimization techniques were used for this CT. COMPARISON: Comparison is made with prior study 05/11/2022. FINDINGS: CHEST Since prior study, there has been an increase in size of the multiple bilateral pulmonary nodules more prominent in the right hemithorax. New left pleural effusion with left basilar atelectasis. There are calcifications of the coronary arteries. Enlarged mediastinal lymph nodes. A dominant lymph node is seen in the precarinal space. It measures 1.5 cm. Normal hilar regions. Normal unenhanced pulmonary arteries. Normal aorta arch and descending thoracic aorta. There are multi-level degenerative changes of the thoracic spine. ABDOMEN Normal liver. Normal gallbladder and extrahepatic biliary system. Normal spleen. Stable soft tissue mass in the body of the pancreas. This measures 4.5 sinus by 4.8 cm. Normal bilateral adrenal glands. The patient is status post left nephrectomy. Once again, multiple cysts are seen in the right kidney. These are unchanged. Polycystic kidney disease should be ruled out. Normal visualized stomach. Normal small intestine. There are scattered colonic diverticula consistent with diverticulosis. The appendix is visualized and appears normal. There is diffuse atherosclerotic calcification of the abdominal aorta, without a demonstrated aneurysm. Normal inferior vena cava. Normal retroperitoneum. Normal abdominal wall. There are diffuse degenerative changes of the visualized lumbar spine. PELVIS Normal urinary bladder. There is no pelvic fluid. There is no pelvic lymphadenopathy or mass lesion. There is diffuse atherosclerotic calcification of the pelvic arteries. The patient is status post right total hip replacement. CT/CT Chest, Abd, Pelvis WO Cont IMPRESSION: Essentially stable examination of the abdomen and pelvis. Increased number of pulmonary nodules seen in both lungs as compared to prior study with new left pleural effusion. Electronically Signed: Horacio Thacker MD at 15:33 EST ,
== END | disposition home or self-care (01) ==
LOC: CT 13:36
PROVIDERS: PCP Family Medicine; Visit Provider Internal Medicine Medical Oncology
DX: C64.9 Malignant neoplasm of unspecified kidney, except renal pelvis (principal); C78.00 Secondary malignant neoplasm of unspecified lung; K86.89 Other specified diseases of pancreas
CPT/HCPCS: 71250; 74176

== ENCOUNTER → 2022-10-01 | Outpatient (CLI) | payer MEDICARE, SELFPAY ==
[2022-10-01 10:23] LABS: PTHIN 43.5 pg/mL (18.4-80.1)
[2022-10-01 10:29] LABS: Albumin, Serum 3.2 g/dL (3.2-5.0); BUN 77 mg/dL (7-18); BUN/Creat Ratio 16.5 RATIO (10-20); Calcium,Total 9.5 mg/dL (8.5-10.1); Chloride 108 mmol/L (98-107); Creatinine, Serum 4.67 mg/dL (0.70-1.30); EST Glomerular Filtration Rate 13 mL/min (>60); Est Glom Filt Rate - Afr Amer 16 mL/min (>60); Glucose 139 mg/dL (74-106); Phosphorus 4.8 mg/dL (2.5-4.9); Potassium 4.4 mmol/L (3.5-5.1); Sodium Level 142 mmol/L (136-145); Thyroid Stim Hormone (TSH) 3.17 uIU/mL (0.358-3.74)
== END | disposition home or self-care (01) ==
LOC: PAVLAB 09:27
PROVIDERS: Nurse Practitioner Family; PCP Family Medicine; Referring Provider Internal Medicine Nephrology; Visit Provider Internal Medicine Nephrology
DX: N18.5 Chronic kidney disease, stage 5 (principal); E11.21 Type 2 diabetes mellitus with diabetic nephropathy; E11.22 Type 2 diabetes mellitus with diabetic chronic kidney disease
CPT/HCPCS: 36415; 80069; 83970; 84443

== ENCOUNTER → 2022-10-21 | Outpatient (CLI) | payer MEDICARE, SELFPAY | END | disposition home or self-care (01) | LOC: PSN 07:37 | PROVIDERS: PCP Family Medicine; Visit Provider Internal Medicine Cardiovascular Disease | DX: C78.00 Secondary malignant neoplasm of unspecified lung (principal); C64.9 Malignant neoplasm of unspecified kidney, except renal pelvis; E11.21 Type 2 diabetes mellitus with diabetic nephropathy; E11.22 Type 2 diabetes mellitus with diabetic chronic kidney disease; N18.5 Chronic kidney disease, stage 5; I48.0 Paroxysmal atrial fibrillation | CPT/HCPCS: 93225; 93226 ==

== ENCOUNTER → 2022-10-21 | Outpatient (CLI) | payer MEDICARE, SELFPAY ==
[2022-10-21 08:15] LABS: Creatinine, Serum 4.53 mg/dL (0.70-1.30); EST Glomerular Filtration Rate 14 mL/min (>60); Est Glom Filt Rate - Afr Amer 17 mL/min (>60)
[2022-10-21 09:39] LABS: 24HR. UA Prot. Total Volume 2150 mL; Urine Protein (24 Hour) 157.9 mg/dL (<11.9)
[2022-10-21 10:06] LABS: Creat.Clear Total Volume 2150 mL; Creatinine Clearance 19 ml/min (100-200); Creatinine Serum Creat 4.5 mg/dL (0.8-1.3); Creatinine Urine 57.3 mg/dL (NO RANGE EST.); EST Glomerular Filtration Rate 14 mL/min (>60); Est Glom Filt Rate - Afr Amer 17 mL/min (>60)
== END | disposition home or self-care (01) ==
PROVIDERS: PCP Family Medicine; Referring Provider Internal Medicine Nephrology; Visit Provider Internal Medicine Nephrology
DX: N18.5 Chronic kidney disease, stage 5 (principal); E11.21 Type 2 diabetes mellitus with diabetic nephropathy; E11.22 Type 2 diabetes mellitus with diabetic chronic kidney disease
CPT/HCPCS: 36415; 81050; 82565; 82575; 84156

== ENCOUNTER → 2022-12-10 | Outpatient (CLI) | payer MEDICARE, SELFPAY ==
[2022-12-10 11:14] LABS: Albumin, Serum 3.4 g/dL (3.2-5.0); BUN 71 mg/dL (7-18); BUN/Creat Ratio 14.2 RATIO (10-20); Calcium,Total 8.9 mg/dL (8.5-10.1); Chloride 112 mmol/L (98-107); Creatinine, Serum 5.01 mg/dL (0.70-1.30); EST Glomerular Filtration Rate 12 mL/min (>60); Est Glom Filt Rate - Afr Amer 15 mL/min (>60); Glucose 160 mg/dL (74-106); Phosphorus 4.4 mg/dL (2.5-4.9); Potassium 4.4 mmol/L (3.5-5.1); Sodium Level 143 mmol/L (136-145)
[2022-12-10 18:59] LABS: Xtra Tube EP Lab EXTRA TUBE
== END | disposition home or self-care (01) ==
LOC: PAVLAB 10:42
PROVIDERS: PCP Family Medicine; Referring Provider Internal Medicine Nephrology; Visit Provider Internal Medicine Nephrology
DX: N18.5 Chronic kidney disease, stage 5 (principal)
CPT/HCPCS: 36415; 80069

== ENCOUNTER → 2023-01-16 | Outpatient (CLI) | payer MEDICARE, SELFPAY ==
[2023-01-16 11:01] LABS: Hematocrit 38.7 % (40-54); Mean Corpuscular Hgb 29.9 pg (27.0-32.0); Mean Corpuscular Volume 96.3 fL (80-94); Mean Platelet Vol. 9.9 fl (6.2-12.0); Platelet Count 167 K/mm3 (150-450); RBC Distribution Width CV 14.5 % (11.6-14.6); RBC Distribution Width SD 50.4 fl (35.1-43.9); Red Blood Count 4.02 M/mm3 (4.6-6.2); White Blood Count 6.9 K/mm3 (4.4-11.0)
[2023-01-16 11:25] LABS: Albumin, Serum 3.4 g/dL (3.2-5.0); BUN 79 mg/dL (7-18); BUN/Creat Ratio 14.4 RATIO (10-20); Calcium,Total 9.6 mg/dL (8.5-10.1); Chloride 108 mmol/L (98-107); Creatinine, Serum 5.47 mg/dL (0.70-1.30); EST Glomerular Filtration Rate 11 mL/min (>60); Est Glom Filt Rate - Afr Amer 13 mL/min (>60); Glucose 143 mg/dL (74-106); Potassium 4.3 mmol/L (3.5-5.1); Sodium Level 139 mmol/L (136-145)
[2023-01-18 07:57] LABS: Hepatitis B Surface Antigen Non-Reactive (Nonreactive)
== END | disposition home or self-care (01) ==
LOC: LAB 10:27
PROVIDERS: PCP Family Medicine; Referring Provider Internal Medicine Nephrology; Visit Provider Internal Medicine Nephrology
DX: N18.5 Chronic kidney disease, stage 5 (principal)
CPT/HCPCS: 36415; 80069; 85027; 87340

== ENCOUNTER → 2023-03-19 | Outpatient (CLI) | payer MEDICARE, SELFPAY ==
--- NOTE | 2023-03-19 07:03 | CT_ITS ---
INDICATION: MONITOR METS TO LUNG EXAMINATION: CT CHEST, ABDOMEN AND PELVIS WITHOUT CONTRAST TECHNIQUE: Helically acquired images were obtained of the chest, abdomen and pelvis. A radiation dose optimization technique was used for this scan. IV Contrast dosage and agent: None. Oral contrast: None. COMPARISON: CT chest, abdomen and pelvis September 14, 2022. FINDINGS: ----Chest: Again demonstrate numerous pulmonary nodules scattered throughout the lungs. The largest of which measures 11 mm, right middle lobe, measuring 10 mm on prior comparison exam. There is slight increases in size of several pulmonary nodules; right lower lobe axial image 85, 11 mm nodule, previously measuring 9 mm. Another, more posterior, right lower lobe nodule, axial image 87, measures 9 mm, previously measuring 7 mm. 10 mm lingular nodule, axial image 87, previously measuring 8 mm. Most nodules are unchanged. No significant new nodule. No consolidation. Central airways are normal. No pneumothorax. Previously seen left pleural effusion has resolved 1.5 cm pretracheal lymph node is unchanged. 14 mm subcarinal lymph node is decreased in size, previously measuring 19 mm in short axis. Numerous other prevascular lymph nodes upper mediastinum are unchanged. No axillary lymphadenopathy. No supraclavicular lymphadenopathy. Left atrial enlargement. There are coronary calcifications and/or stents. No pericardial effusion. Esophagus is normal in appearance. No lytic or blastic bone lesion of the thorax. Age expected degenerative endplate changes with bridging osteophytes thoracic spine. ----Abdomen/Pelvis: LIVER: Homogeneous. No focal mass. GALLBLADDER AND BILIARY TREE: No calcified gallstones. No gallbladder distension or wall edema. No intra- or extrahepatic biliary ductal dilation. PANCREAS: 5.3 x 4.3 cm pancreatic body mass measures 4.9 x 4.5 cm on comparison exam, likely unchanged. SPLEEN: Normal size without focal cystic or solid mass. ADRENAL GLANDS: Normal right adrenal gland. Small versus absent left adrenal gland. KIDNEYS AND URETERS: Absent left kidney. In the left renal bed there is a 16 mm solid nodule, previously measuring 2.1 cm. Multiple exophytic cysts right kidney. Some of the exophytic lesions do not show simple homogenous fluid density suggesting possible hemorrhagic cysts. These do not appear appreciably changed compared to prior exam. There is a questionable 12 mm nodule periphery of the cyst in the superior pole right kidney for which MRI should be considered. Also, there is a 2 cm solid-appearing nodule, lateral to a likely exophytic cyst inferior pole right kidney, axial image 59 that previously measured 15 mm. PERITONEUM: No ascites or free air. No other fluid collection. BOWEL: No evidence of acute appendicitis. No stomach or bowel distension. No focal inflammatory change. LYMPH NODES: No enlarged mesenteric or retroperitoneal lymph nodes. VESSELS: Aorta is non-dilated. URINARY BLADDER: Unremarkable. REPRODUCTIVE ORGANS: Normal prostate gland ABDOMINAL WALL: No discrete abdominal or pelvic wall hernia. BONES: No lytic or blastic abnormality. Right hip arthroplasty without complication. CT/CT Chest, Abd, Pelvis WO Cont IMPRESSION: 1. Numerous pulmonary nodules several of which are slightly increased in size as detailed above. No appreciable new nodules. 2. Mediastinal lymph nodes stable or decreased in size, now measuring 16 mm. 3. Grossly unchanged pancreatic mass. 4. Decrease in size of solid nodule left renal bed. 5. Mild increase in size of solid-appearing nodule lateral periphery of right kidney cystic lesion likely representing cyst. 6. Subtle area of peripheral nodular increased density in the right renal superior pole exophytic cyst may represent a solid nodule. Consider MRI or contrast-enhanced CT to assess these right renal, perirenal nodules. 7. No evidence of new metastatic disease. Electronically Signed: Rusty Jenkins DO at 0:00 EDT ,
== END | disposition home or self-care (01) ==
LOC: CT 07:02
PROVIDERS: PCP Family Medicine; Referring Provider Internal Medicine Medical Oncology; Visit Provider Internal Medicine Medical Oncology
DX: C78.00 Secondary malignant neoplasm of unspecified lung (principal)
CPT/HCPCS: 71250; 74176

== ENCOUNTER → 2023-09-21 | Outpatient (CLI) | payer MEDICARE, SELFPAY ==
--- NOTE | 2023-09-21 06:20 | CT_ITS ---
STUDY: CT CHEST, ABDOMEN T PELVIS WITHOUT CONTRAST REASON FOR EXAM: Male, 67 years old. MONITOR METASTIC KIDNEY CA. Status post left nephrectomy. RADIATION DOSAGE (If Supplied By Facility): CTDIvol = ( 24.67 ) mGy, DLP = ( 2319.40 ) mGycm TECHNIQUE: Transaxial imaging was performed without the administration of intravenous contrast material. Individualized dose optimization techniques were used for this CT. COMPARISON: Comparison is made with prior study dated March 19, 2023. FINDINGS: CHEST Stable bilateral pulmonary nodules. There is no demonstrated pleural abnormality. There are calcifications of the coronary arteries. There are multiple small lymph nodes within the mediastinum, which are normal in size and morphology most compatible with reactive lymph hyperplasia. Stable enlargement of the right hilar lymph nodes. Normal unenhanced pulmonary arteries. Normal aorta arch and descending thoracic aorta. There are multi-level degenerative changes of the thoracic spine. ABDOMEN Stable 5 mm cyst in the lateral aspect of the left lobe of the liver. Normal gallbladder and extrahepatic biliary system. Normal spleen. Stable 5.3 cm x 4 cm mass in the body of the pancreas. There is also evidence of a 3.3 cm x 2.8 cm mass in the tail portion of the pancreas. This is unchanged. Normal bilateral adrenal glands. Stable multiple cysts in the right kidney. Stable mild rim calcification of the dominant cyst in the posterior aspect of the right kidney. Status post left nephrectomy. Normal visualized stomach. Normal small intestine. There are multiple colonic diverticula consistent with diverticulosis. There is non-visualization of the appendix. Normal abdominal aorta. Normal inferior vena cava. Normal retroperitoneum. Normal abdominal wall. There are diffuse degenerative changes of the visualized lumbar spine. PELVIS Normal urinary bladder. Normal visualized small intestine. Normal visualized colon. There is no pelvic fluid. There is no pelvic lymphadenopathy or mass lesion. Normal visualized pelvic arteries. Normal abdominal wall. Status post right total hip replacement. CT/CT Chest, Abd, Pelvis WO Cont IMPRESSION: Stable examination. Electronically Signed: Horacio Thacker MD at 10:23 EST ,
== END | disposition home or self-care (01) ==
LOC: CT 06:17
PROVIDERS: PCP Family Medicine; Referring Provider Internal Medicine Medical Oncology; Visit Provider Internal Medicine Medical Oncology
DX: C79.00 Secondary malignant neoplasm of unspecified kidney and renal pelvis (principal)
CPT/HCPCS: 71250; 74176

== ENCOUNTER → 2023-10-29 | Outpatient (CLI) | payer MEDICARE, SELFPAY ==
[2023-10-29 13:16] LABS: Cholesterol 141 mg/dL (200); High Density Lipoprotein 31 mg/dL; Thyroid Stim Hormone (TSH) 1.47 uIU/mL (0.358-3.74); Triglycerides 181 mg/dL; Very Low Density Lipoprotein 36 mg/dL (5-40)
[2023-10-29 14:09] LABS: Hemoglobin A1c 7.5 % (3.8-5.6)
== END | disposition home or self-care (01) ==
LOC: BFHLAB 09:19
PROVIDERS: PCP Family Medicine; Visit Provider Family Medicine
DX: Z00.01 Encounter for general adult medical examination with abnormal findings (principal); C64.9 Malignant neoplasm of unspecified kidney, except renal pelvis; E11.9 Type 2 diabetes mellitus without complications; E03.9 Hypothyroidism, unspecified
CPT/HCPCS: 36415; 80061; 83036; 84443

== ENCOUNTER → 2024-04-17 | Outpatient (CLI) | payer MEDICARE, SELFPAY ==
--- NOTE | 2024-04-17 07:55 | CT_ITS ---
STUDY: CT CHEST, ABDOMEN T PELVIS WITHOUT CONTRAST REASON FOR EXAM: Male, 68 years old. MONITOR SHRUTHI STATIC RENAL CA RADIATION DOSAGE (If Supplied By Facility): CTDIvol = ( 23.70 ) mGy, DLP = ( 2361.78 ) mGycm TECHNIQUE: Transaxial imaging was performed without the administration of intravenous contrast material. Multiplanar coronal and sagittal images were reformatted. Individualized dose optimization techniques were used for this CT. COMPARISON: Comparison is made with prior study dated September 21, 2023. FINDINGS: CHEST Multiple bilateral noncalcified pulmonary nodules. These have increased slightly in size as compared to prior study especially in the right lower lobe. There is no demonstrated pleural abnormality. There are calcifications of the coronary arteries. There are small lymph nodes within the mediastinum, which are normal in size and morphology most compatible with reactive lymph hyperplasia. Stable enlargement of the right hilar lymph nodes. Normal unenhanced pulmonary arteries. Normal aorta arch and descending thoracic aorta. There are multi-level degenerative changes of the thoracic spine. ABDOMEN Normal liver. Normal gallbladder and extrahepatic biliary system. Normal spleen. There is a 5.2 cm x 3.7 cm mass in the tail the pancreas. There is also evidence of a 3.4 cm x 4.2 cm mass in the region of the uncinate process and body of the pancreas. Normal bilateral adrenal glands. Multiple cysts in the right kidney with the areas of a solid components within this cyst. These have progressed as compared to prior study. The patient status post left nephrectomy. Normal visualized stomach. Normal small intestine. There are scattered colonic diverticula consistent with diverticulosis. The appendix is visualized and appears normal. Normal abdominal aorta. Normal inferior vena cava. Normal retroperitoneum. Normal abdominal wall. There are diffuse degenerative changes of the visualized lumbar spine. Status post right hip replacement. PELVIS Normal urinary bladder. Normal visualized pelvic arteries. CT/CT Chest, Abd, Pelvis WO Cont IMPRESSION: Interval increase in size and number of pulmonary nodules as described. Stable pancreatic masses. Progressive soft tissue prominence within the cystic masses within the right kidney. The patient is status post left nephrectomy. Electronically Signed: Horacio Thacker MD at 14:30 EDT ,
== END | disposition home or self-care (01) ==
PROVIDERS: PCP Family Medicine; Referring Provider Internal Medicine Medical Oncology; Visit Provider Internal Medicine Medical Oncology
DX: T82.590A Other mechanical complication of surgically created arteriovenous fistula, initial encounter (principal); Y71.8 Miscellaneous cardiovascular devices associated with adverse incidents, not elsewhere classified
CPT/HCPCS: 71250; 74176

== ENCOUNTER → 2024-07-11 | Outpatient (CLI) | payer MEDICARE, SELFPAY ==
--- NOTE | 2024-07-11 07:58 | ECHOLONC_ITS ---
Reason For Study: Cardio Toxic Drug Therapy Procedure This was a limited 2D transthoracic echocardiogram. Myocardial strain analysis was performed in this exam to aid in the assessment of cardiac function. Exam performed in department. Left Ventricle Normal LV size. The left ventricular ejection fraction is 40 %. There is mild global hypokinesis of the left ventricle. Right Ventricle Normal RV size. Normal systolic function. Atria Normal left atrium. Normal right atrium. Mitral Valve There is mild mitral annular calcification. Tricuspid Valve Normal tricuspid valve. Pulmonic Valve Normal pulmonic valve. Great Vessels Normal aortic root. The pulmonary artery is normal size. Normal inferior vena cava. Pericardium/Pleural No pericardial effusion. Medication Unable to use Definity due to Lt Nephrectomy. MMode/2D Measurements & Calculations LVIDd: 5.6 cm IVSd: 1.3 cm LVAd ap4: 44.8 cm2 LVIDs: 4.4 cm LVPWd: 1.3 cm LVLd ap4: 9.7 cm FS: 21.5 % EDV(MOD-sp4): 169.3 ml EDV(sp4-el): 175.2 ml LVAs ap4: 30.6 cm2 LVLs ap4: 8.0 cm ESV(MOD-sp4): 96.5 ml ESV(sp4-el): 99.9 ml EF(MOD-sp4): 43.0 % EF(sp4-el): 43.0 % LVAd ap2: 44.4 cm2 SV(MOD-sp4): 72.8 ml SV(MOD-sp2): 68.4 ml LVLd ap2: 9.8 cm SI(MOD-sp4): 30.7 ml/m2 SI(MOD-sp2): 28.9 ml/m2 EDV(MOD-sp2): 163.2 ml EDV(sp2-el): 170.7 ml LVAs ap2: 31.4 cm2 LVLs ap2: 8.8 cm ESV(MOD-sp2): 94.8 ml ESV(sp2-el): 94.6 ml EF(MOD-sp2): 41.9 % SV(sp4-el): 75.2 ml Time Measurements MV dec time: 0.22 sec Doppler Measurements & Calculations MV E max theo: 91.4 cm/sec Lat Peak E' Theo: 5.5 cm/sec Med Peak E' Theo: 3.9 cm/sec MV A max theo: 108.3 cm/sec E/E' lat: 16.5 E/E' med: 23.3 MV E/A: 0.84 MV dec slope: 413.4 cm/sec2 Ao V2 max: 147.2 cm/sec Ao max P.7 mmHg Ao V2 mean: 99.1 cm/sec Ao mean P.5 mmHg Ao V2 VTI: 30.4 cm ECHO/ONC Echo, Limited Study Interpretation Summary Normal LV size. The left ventricular ejection fraction is 40 %. There is mild global hypokinesis of the left ventricle. The global longitudinal strain is moderately abnormal. The global longitudinal strain = -13.4% (abnormal). Ordering Physician: Jeffrey Kuhn Referring Physician: Houston Olson Performed By: Inga Lin, RDCS, RVT
== END | disposition home or self-care (01) ==
LOC: CVS 07:58
PROVIDERS: PCP Family Medicine; Referring Provider Internal Medicine Medical Oncology; Visit Provider Internal Medicine Medical Oncology
DX: C78.00 Secondary malignant neoplasm of unspecified lung (principal); C64.9 Malignant neoplasm of unspecified kidney, except renal pelvis; Z79.899 Other long term (current) drug therapy
CPT/HCPCS: 93308; 93356

== ENCOUNTER → 2024-08-08 | Outpatient (CLI) | payer MEDICARE, SELFPAY ==
--- NOTE | 2024-08-08 10:03 | ECHOLONC_ITS ---
Reason For Study: Antineoplastic Chemo Procedure This was a limited 2D transthoracic echocardiogram. Myocardial strain analysis was performed in this exam to aid in the assessment of cardiac function. Exam performed in department. Left Ventricle Normal LV size. Left ventricular systolic function is normal. The left ventricular ejection fraction is 55 %. No regional wall motion abnormalities noted. Right Ventricle Normal RV size. Normal systolic function. Atria Normal left atrium. Normal right atrium. Mitral Valve Normal mitral valve. Tricuspid Valve Normal tricuspid valve. Aortic Valve Trisinus/trileaflet aortic valve. Pulmonic Valve Normal pulmonic valve. Great Vessels Normal aortic root. The pulmonary artery is normal size. Inferior vena cava collapse with respiration. Pericardium/Pleural No pericardial effusion. MMode/2D Measurements & Calculations LVIDd: 5.2 cm IVSd: 1.3 cm LVAd ap4: 38.2 cm2 LVIDs: 3.9 cm LVPWd: 1.2 cm LVLd ap4: 9.0 cm FS: 24.9 % EDV(MOD-sp4): 132.4 ml EDV(sp4-el): 137.2 ml LVAs ap4: 22.8 cm2 LVLs ap4: 7.3 cm ESV(MOD-sp4): 59.3 ml ESV(sp4-el): 60.2 ml EF(MOD-sp4): 55.2 % EF(sp4-el): 56.1 % SV(MOD-sp4): 73.1 ml SV(sp4-el): 77.0 ml SI(MOD-sp4): 32.9 ml/m2 ECHO/ONC Echo, Limited Study Interpretation Summary Normal LV size. Left ventricular systolic function is normal. The left ventricular ejection fraction is 55 %. The global longitudinal strain is borderline abnormal. The global longitudinal strain = -16.1% (abnormal). Compared to previous study, the left ventricular systolic function has improved.. The global longitudinal strain has improved. Ordering Physician: Jeffrey Kuhn Referring Physician: Houston Olson Performed By: Inga Lin, JOCELYN, RVT
== END | disposition home or self-care (01) ==
LOC: CVS 10:02
PROVIDERS: PCP Family Medicine; Referring Provider Internal Medicine Medical Oncology; Visit Provider Internal Medicine Medical Oncology
DX: I50.9 Heart failure, unspecified (principal); C78.00 Secondary malignant neoplasm of unspecified lung; C64.9 Malignant neoplasm of unspecified kidney, except renal pelvis; Z79.899 Other long term (current) drug therapy
CPT/HCPCS: 93308; 93356

== ENCOUNTER 2024-10-04 07:11 | Emergency (ER) | payer MEDICARE, SELFPAY ==
[2024-10-04 07:12] VITALS: BP 156/67; PULSE 69; RESP 15; TEMP 36.4; O2SAT 98; BMI 33.6
--- NOTE | 2024-10-04 07:33 | EDS_ITS ---
HPI History of Present Illness Chief Complaint: Complaint Informant: patient and family Narrative Narrative: 68-year-old male presenting to the emergency room with a chief complaint of hematuria. Patient is on dialysis today. States for the past week after di alysis he was experiencing hematuria that would resolve but then returned. Since Wednesday however he states each urine has been bloody. States he spoke with his soil expert and oncologist yesterday recommended coming to emergency. He is seeing Dr. Tucker for nephrology, Dr. Oliver for oncology and is seeing Dr. Valentin for urology. He is on apixaban. He states he has a history of A-fib as well as pulmonary embolism/DVT. Patient currently undergoing therapy for metastatic renal cell cancer. He has had prior left nephrectomy. He has known metastatic disease to lung and pancreas. He denies any trauma. No burning with urination or frequency. No fevers. No abdominal pain. He feels like he is emptying his bladder. [facility] Medical History Wears glasses History of Clostridium difficile infection Prostate disease Low iron History of pulmonary embolus (PE) History of DVT (deep vein thrombosis) Easy bruising Blackout Non-smoker Cancer Diabetes GERD (gastroesophageal reflux disease) Pancreatitis Coronary artery disease History of kidney cancer CKD (chronic kidney disease) stage 4, GFR 15-29 ml/min Pancreatic mass Anemia COVID-19 (07/11/21) Renal dysfunction Chronic diastolic (congestive) heart failure Deep vein thrombosis of right lower extremity (11/19/14) Paroxysmal atrial fibrillation Neoplastic (malignant) related fatigue Hypothyroidism Pneumonitis Metastatic 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 Abnormal CT of the abdomen Obesity Atrial fibrillation with rapid ventricular response (07/04/19) Bilateral pulmonary embolism (11/19/14) Type 2 diabetes mellitus Essential (primary) hypertension Gout Renal cell cancer Viral URI Encounter for education Home Medications ?Medication ?Instructions ?Recorded ?Last Taken ?Type allopurinol 100 mg tablet 100 mg PO DAILYCM gout 05/0308/05/19 History finasteride 5 mg tablet 5 mg PO DAILY prostate 05/0308/05/19 History clonidine HCl 0.1 mg tablet 0.1 mg PO BID blood pressu re 09/25/21 02/25/22 09:30 History ferrous sulfate 325 mg (65 mg 325 mg PO BID #60 tabs 0 6/14/22 Unknown Rx iron) tablet pantoprazole 40 mg tablet,delayed 40 mg PO DAILY GERD 02/16/22 02/25/22 09:30 History release apixaban 2.5 mg tablet (Eliquis) 2.5 mg PO BID #180 ta bs 10/21/23 Unknown Rx diltiazem HCl 120 mg See Rx Instructions .Route 0 11/22/23 Unknown Rx capsule,extended release 24 hr .COMPLEX #180 caps metoprolol tartrate 100 mg tablet 100 mg PO BID #180 t abs 11/22/23 Unknown Rx vitamin B complex-vitamin C-folic 1 tab PO DAILY 01/02 Unknown History acid 0.8 mg tablet (Theresa-Fabian) axitinib 5 mg tablet 5 mg PO BID 06/07/24 Unknown
--- NOTE | 2024-10-04 07:33 | EX.ED.DYSGE1 ---
HPI History of Present Illness Chief Complaint: Complaint Informant: patient and family Narrative Narrative: 68-year-old male presenting to the emergency room with a chief complaint of hematuria. Patient is on dialysis today. States for the past week after dialysis he was experiencing hematuria that would resolve but then returned. Since Wednesday however he states each urine has been bloody. States he spoke with his decorating consultant and oncologist yesterday recommended coming to emergency. He is seeing Dr. Tucker for nephrology, Dr. Oliver for oncology and is seeing Dr. Valentin for urology. He is on apixaban. He states he has a history of A-fib as well as pulmonary embolism/DVT. Patient currently undergoing therapy for metastatic renal cell cancer. He has had prior left nephrectomy. He has known metastatic disease to lung and pancreas. He denies any trauma. No burning with urination or frequency. No fevers. No abdominal pain. He feels like he is emptying his bladder. [facility] Medical History Wears glasses History of Clostridium difficile infection Prostate disease Low iron History of pulmonary embolus (PE) History of DVT (deep vein thrombosis) Easy bruising Blackout Non-smoker Cancer Diabetes GERD (gastroesophageal reflux disease) Pancreatitis Coronary artery disease History of kidney cancer CKD (chronic kidney disease) stage 4, GFR 15-29 ml/min Pancreatic mass Anemia COVID-19 (07/11/21) Renal dysfunction Chronic diastolic (congestive) heart failure Deep vein thrombosis of right lower extremity (11/19/14) Paroxysmal atrial fibrillation Neoplastic (malignant) related fatigue Hypothyroidism Pneumonitis Metastatic 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 Abnormal CT of the abdomen Obesity Atrial fibrillation with rapid ventricular response (07/04/19) Bilateral pulmonary embolism (11/19/14) Type 2 diabetes mellitus Essential (primary) hypertension Gout Renal cell cancer Viral URI Encounter for education Home Medications ?Medication ?Instructions ?Recorded ?Last Taken ?Type allopurinol 100 mg tablet 100 mg PO DAILYCM gout 05/03/15 08/05/19 History finasteride 5 mg tablet 5 mg PO DAILY prostate 05/03/15 08/05/19 History clonidine HCl 0.1 mg tablet 0.1 mg PO BID blood pressure 09/25/21 02/25/22 09:30 History ferrous sulfate 325 mg (65 mg 325 mg PO BID #60 tabs 01/06/22 Unknown Rx iron) tablet pantoprazole 40 mg tablet,delayed 40 mg PO DAILY GERD 02/16/22 02/25/22 09:30 History release apixaban 2.5 mg tablet (Eliquis) 2.5 mg PO BID #180 tabs 10/21/23 Unknown Rx diltiazem HCl 120 mg See Rx Instructions .Route 11/22/23 Unknown Rx capsule,extended release 24 hr .COMPLEX #180 caps metoprolol tartrate 100 mg tablet 100 mg PO BID #180 tabs 11/22/23 Unknown Rx vitamin B complex-vitamin C-folic 1 tab PO DAILY 01/03/24 Unknown History acid 0.8 mg tablet (Theresa-Fabian) axitinib 5 mg tablet 5 mg PO BID 06/07/24 Unknown History glipizide 5 mg tablet 2.5 mg PO BID 08/15/24 Unknown History levothyroxine 125 mcg tablet 125 mcg PO DAILY 08/15/24 Unknown History Allergy/AdvReac Type Severity Reaction Status Date / Time Penicillins (PCN) Allergy PT UNSURE Verified 10/04/24 07:14 OF REACTION Family History Mother Diabetes Heart disease Kidney disease Hypertension CVA (cerebral vascular accident) Father Heart disease Surgical History S/P arteriovenous (AV) fistula creation (~03/2022) History of esophagogastroduodenoscopy (EGD) History of colonoscopy (2018) History of total hip arthroplasty (04/2015) History of left nephrectomy (2010) Social History Smoking Status: Never smoker second hand exposure: No alcohol intake: never substance use type: does not use caffeine: Yes frequency: does not exercise ROS ROS ED Constitutional Constitutional ED: Denies chills, fever(s) or weight loss Eyes Eyes: Denies change in vision or diplopia ENT ENT ED: Denies ear pain, rhinorrhea or sore throat Cardiovascular Cardiovascular: Denies chest pain, orthopnea, palpitations or racing heartbeat Respiratory/Chest Respiratory/Chest: Denies cough, dyspnea or orthopnea Gastrointestinal Gastrointestinal: Denies abdominal pain, diarrhea, nausea or vomiting Genitourinary Genitourinary ED: Reports hematuria; Denies dysuria or urinary frequency Musculoskeletal Musculoskeletal: Denies arthralgias or myalgias Integumentary Denies abscess or rash Neurologic Neurologic: Denies headache(s) or weakness Psychiatric Psychiatric: Denies anxiety, depression, suicidal ideation or suicidal thoughts Endocrine Endocrinology: Denies polydipsia, polyphagia or polyuria Allergic/Immunologic Allergic/Immunologic ED: Denies mouth swelling, tongue swelling or urticaria EXAM Physical Exam Const Vital Signs: 10/04/24 07:12 10/04/24 09:50 10/04/24 11:25 Temperature 97.5 F L Temperature Source Temporal Pulse Rate 69 69 Respiratory Rate 15 18 Blood Pressure 156/67 H 153/65 H 144/69 H Blood Pressure Mean 96 94 91 Pulse Ox 98 93 97 Oxygen Delivery Method Room Air Room Air 10/04/24 13:02 Temperature 97.8 F Temperature Source Pulse Rate 80 Respiratory Rate 18 Blood Pressure 165/68 H Blood Pressure Mean 100 Pulse Ox 96 Oxygen Delivery Method Positive well nourished and well developed General Appearance ED: well developed HEENT Reports normocephalic, head/scalp atraumatic and moist mucous membranes Eyes PERRL and EOMs intact bilaterally Neck no lymphadenopathy, supple and no JVD Resp normal respiratory effort and clear to auscultation bilaterally Cardio regular rate, regular rhythm and no murmurs GI normal to inspection, nondistended, normoactive bowel sounds and non-tender Palpation: soft Narrative: exam appears atraumatic. No blood at the meatus. No swelling. Back/Spine no CVA tenderness and normal ROM Extremity normal to inspection General Extremety ED: Negative for edema General Extremity: Negative for edema Neuro oriented x3 and CN's II-XII intact bilaterally Sensorium / Orientation: alert Motor Exam: strength 5/5 throughout Psych mental status grossly normal Mood & Affect: Negative for depressed or tearful Skin no rashes or lesions noted and no wounds MDM MDM MDM Narrative Medical decision making narrative: Differential diagnosis includes UTI anticoagulation malignancy ureterolithiasis anemia acute kidney injury White count 6.5 hemoglobin 10.9 platelet count of 184. Creatinine 4.50 with a BUN of 58 anion gap 17. Urinalysis with hematuria 5-10 white cells [address] abdomen pelvis does not show significant change in the renal masses from prior. He is not having any urinary retention. I spoke with the patient's urologist Dr. Valentin. Renal recommend outpatient follow-up. Given that he is on anticoagulation for A-fib as well as pulmonary embolisms and DVT in the past he can continue his anticoagulant unless he begins to bleed heavily or if he develops significant anemia. He understands return instructions for symptomology such as urinary retention. History & Record Review Discussion w/independent historian: Patient and Family Additional record(s) reviewed:: Prior outpatient record and Prior labs Lab Data Attestation: I reviewed the patient's lab results. Labs: Laboratory Results - last 24 hr 10/04/24 10/04/24 08:05 10:10 WBC 6.5 RBC 3.63 L Hgb 10.9 L Hct 33.8 L MCV 93.1 MCH 30.0 MCHC 32.2 RDW Std Deviation 49.6 H RDW Coeff of Shanell 14.8 H Plt Count 184 MPV 8.9 Immature Gran % (Auto) 0.300 Neut % (Auto) 74.0 H Lymph % (Auto) 13.8 L Glenn % (Auto) 8.3 Eos % (Auto) 2.8 Baso % (Auto) 0.8 Absolute Neuts (auto) 4.8 Absolute Lymphs (auto) 0.90 Nucleated RBC % 0 PT 16.6 H INR 1.3 APTT 36.8 H Sodium 137 Potassium 4.3 Chloride 98 Carbon Dioxide 23.2 Anion Gap 17 H BUN 58 H Creatinine 4.50 H Estim Creat Clear Calc 19.49 L Est GFR (MDRD) Non-Af 13 L BUN/Creatinine Ratio 12.9 Glucose 186 H Calcium 9.1 Total Bilirubin 0.53 Direct Bilirubin 0.24 AST 23 ALT 10 Alkaline Phosphatase 74 Total Protein 7.0 Albumin 3.4 Globulin 3.6 Urine Color Yellow Urine Clarity Sl. Cloudy Urine pH 8.0 Ur Specific [place] 1.010 Urine Protein 500 H Urine Glucose (UA) 50 H Urine Ketones Negative Urine Occult Blood 250 H Urine Nitrite Negative Urine Bilirubin Negative Urine Urobilinogen Normal Ur Leukocyte Esterase 25 H Urine RBC > 100 SEEN Urine WBC 5-10 SEEN Ur Squamous Epith Cells 0 SEEN Urine Bacteria 0 SEEN Urine Mucus 0 SEEN Radiography Diagnostic Testing: Clinical Impression(s) from Imaging Studies Abdomen/Pelvis CT 10/04/24 08:40 IMPRESSION: 1. Partially visualized lung nodules. Small left pleural effusion. Metastasis can not be excluded. 2. Multiple hypodense lesions of the right kidney, some of which appears to have heterogeneous enhancement. Neoplastic process can not be excluded. These appear similar to the prior exam. 3. Mild volume fecal retention in the colon consistent with constipation. Reading Location: [facility] Management Discussion w/another healthcare provider: Embedded Systems Developer (Dr. Valentin) Discharge Plan Triage Chief Complaint: Complaint ED Provider: Moody Rodriguez Dx/Rx/DC Orders Clinical Impression: Metastatic 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, Hematuria, Anticoagulated Instructions: ED Hematuria Prescriptions: No Action clonidine HCl 0.1 mg tablet 0.1 mg PO BID Theresa-Fabian 0.8 mg tablet 1 tab PO DAILY levothyroxine 125 mcg tablet 125 mcg PO DAILY glipizide 5 mg tablet 2.5 mg PO BID axitinib 5 mg tablet 5 mg PO BID allopurinol 100 MG tablet 100 mg PO DAILYCM Patient Comments: GOUT finasteride 5 MG tablet 5 mg PO DAILY Patient Comments: BPH ferrous sulfate 325 mg (65 mg iron) tablet 325 mg PO BID Qty: 60 0RF pantoprazole 40 mg tablet,delayed release (DR/EC) 40 mg PO DAILY Rx Instructions: take 1 tablet by mouth once daily Eliquis 2.5 mg tablet 2.5 mg PO BID Qty: 180 3RF diltiazem HCl 120 mg capsule,extended release 24hr See Rx Instructions .ROUTE .COMPLEX Qty: 180 4RF Dose Instruction: take 1 capsule by mouth twice a day Rx Instructions: take 1 capsule by mouth twice a day metoprolol tartrate 100 mg tablet 100 mg PO BID Qty: 180 3RF Primary Care Provider: Houston Olson Referrals: Mo Valentin MD [Med Staff - Active Staff] - As soon as possible Houston Olson DO [Primary Care Provider] - Activity Restrictions/Additional Instructions: Please obtain dialysis as soon as possible. Print Language: Croatian Disposition Disposition: Home, Self Care Discharge Date/Time: 10/04/24 13:03
[2024-10-04 08:16] LABS: Absolute Neutrophil Count 4.8 X10^3/uL (2.0-7.7); Basophil# 0.05 X10^3/uL; Basophil% 0.8 % (0-1); Eosinophil# 0.18 X10^3/uL; Eosinophils% 2.8 % (0-5); Hematocrit 33.8 % (40-54); Hemoglobin 10.9 g/dL (13.0-16.5); Lymphocyte % 13.8 % (19-41); Mean Corp Hgb Conc 32.2 g/dL (32-36); Mean Corpuscular Volume 93.1 fL (80-94); Mean Platelet Vol. 8.9 fl (6.2-12.0); Monocyte# 0.54 X10^3/uL; Monocyte% 8.3 % (0-10); NRBC Flagged by Analyzer 0 % (0-5); Neutrophil # 4.84 X10^3/uL (2.7-7.7); Platelet Count 184 K/mm3 (150-450); RBC Distribution Width CV 14.8 % (11.6-14.6); RBC Distribution Width SD 49.6 fl (35.1-43.9); Red Blood Count 3.63 M/mm3 (4.6-6.2); White Blood Count 6.5 K/mm3 (4.4-11.0)
--- NOTE | 2024-10-04 08:40 | CT_ITS ---
EXAM: CT Abdomen and Pelvis With Intravenous Contrast CLINICAL INDICATION: HEMATURIA HISTORY RENAL CANCER (R) NEPHRECTOMY (L) TECHNIQUE: Axial computed tomography images of the abdomen and pelvis with intravenous contrast. This CT exam was performed using one or more of the following dose reduction techniques: automated exposure control, adjustment of the mA and/or kV according to patient size, and/or use of iterative reconstruction technique. COMPARISON: CT Abdomen Pelvis dated 04/17/2024 FINDINGS: LUNG BASES: Unremarkable. No mass. No consolidation. PLEURAL SPACE: Partially visualized lung nodules. Small left pleural effusion. Metastasis can not be excluded. ABDOMEN: LIVER: Unremarkable. No mass. GALLBLADDER AND BILE DUCTS: Unremarkable. No calcified stones. No ductal dilation. PANCREAS: Unremarkable. No mass. No ductal dilation. SPLEEN: Unremarkable. No splenomegaly. ADRENALS: Unremarkable. No mass. KIDNEYS AND URETERS: Multiple hypodense lesions of the right kidney, some of which appears to have heterogeneous enhancement. Neoplastic process can not be excluded. These appear similar to the prior exam. Left nephrectomy. STOMACH AND BOWEL: Mild volume fecal retention in the colon consistent with constipation. No obstruction. No mucosal thickening. PELVIS: APPENDIX: No findings to suggest acute appendicitis. BLADDER: Unremarkable. No mass. REPRODUCTIVE: Unremarkable as visualized. ABDOMEN and PELVIS: INTRAPERITONEAL SPACE: Unremarkable. No free air. No significant fluid collection. BONES/JOINTS: Total right hip replacement. No acute fracture. No dislocation. SOFT TISSUES: Unremarkable. VASCULATURE: Unremarkable. No abdominal aortic aneurysm. LYMPH NODES: Unremarkable. No enlarged lymph nodes. CT/Abdomen/Pelvis W IV Cont ONLY IMPRESSION: 1. Partially visualized lung nodules. Small left pleural effusion. Metastasi s can not be excluded. 2. Multiple hypodense lesions of the right kidney, some of which appears to moore ve heterogeneous enhancement. Neoplastic process can not be excluded. These appear similar to the prior exam. 3. Mild volume fecal retention in the colon consistent with constipation. Reading Location: [facility]
[2024-10-04 08:44] LABS: AST(SGOT) 23 U/L (<=37); Alanine Aminotransfer ALT/SGPT 10 U/L (<=46); Albumin, Serum 3.4 g/dL (3.4-4.8); Alkaline Phosphatase 74 U/L (40-129); Anion Gap 17 (5-15); BUN 58 mg/dL (4-19); BUN/Creat Ratio 12.9 RATIO (10-20); Bilirubin, Direct 0.24 mg/dL (0.00-0.30); Calcium,Total 9.1 mg/dL (7.6-11.0); Carbon Dioxide 23.2 mmol/L (21.0-32.0); Chloride 98 mmol/L (98-108); EST Glomerular Filtration Rate 13 (>60); Estimated Creatinine Clearance 19.49 ml/min (50-250); Globulin 3.6 g/dL (2.2-4.2); Glucose 186 mg/dL (70-99); Potassium 4.3 mmol/L (3.3-5.1); Sodium Level 137 mmol/L (133-145); Total Bilirubin 0.53 mg/dL (0.00-1.30)
[2024-10-04 09:01] LABS: International Normalized Ratio 1.3; Prothrombin Time (Protime)PT. 16.6 SECONDS (11.7-14.9)
[2024-10-04 09:02] LABS: Partial Thromboplast Time 36.8 Seconds (24.1-36.2)
[2024-10-04 09:50] VITALS: BP 153/65; PULSE 69; RESP 18; O2SAT 93
[2024-10-04 10:18] LABS: Bacteria 0 SEEN /hpf (None Seen); Mucous, Urine 0 SEEN /hpf (<or=2+); Squamous Epithelial Cells - UA 0 SEEN /hpf (0-5)
[2024-10-04 10:25] LABS: Color, Urine Yellow (Yellow); Glucose, Dipstick 50 mg/dl (Normal); Ketone-Dipstick Negative (Negative); Leukocyte Esterase-Dipstick 25 /ul (Negative); Nitrite-Dipstick Negative (Negative); Occult Blood-Urine 250 /ul (Negative); Protein-Dipstick 500 mg/dl (Negative); Urine Bilirubin Dipstick Negative (Negative); Urine Clarity Sl. Cloudy (Clear); Urine Urobilinogen Normal (Normal)
[2024-10-04 10:31] LABS: Red Blood Cells-Urine > 100 SEEN /hpf (0-5)
[2024-10-04 10:32] LABS: White Blood Cells 5-10 SEEN /hpf (0-5)
[2024-10-04 11:25] VITALS: BP 144/69; O2SAT 97
[2024-10-04 13:02] VITALS: BP 165/68; PULSE 80; RESP 18; TEMP 36.6; O2SAT 96
== END 2024-10-04 13:03 | disposition home or self-care (01) ==
PROVIDERS: Emergency Provider Emergency Medicine; PCP Family Medicine; Visit Provider Emergency Medicine
DX: R31.9 Hematuria, unspecified (principal); C78.00 Secondary malignant neoplasm of unspecified lung; C78.89 Secondary malignant neoplasm of other digestive organs; N18.4 Chronic kidney disease, stage 4 (severe); C64.9 Malignant neoplasm of unspecified kidney, except renal pelvis; I13.0 Hypertensive heart and chronic kidney disease with heart failure and stage 1 through stage 4 chronic kidney disease, or unspecified chronic kidney disease; I50.32 Chronic diastolic (congestive) heart failure; I48.0 Paroxysmal atrial fibrillation; E11.22 Type 2 diabetes mellitus with diabetic chronic kidney disease; I25.10 Atherosclerotic heart disease of native coronary artery without angina pectoris; E03.9 Hypothyroidism, unspecified; Z79.01 Long term (current) use of anticoagulants; Z79.84 Long term (current) use of oral hypoglycemic drugs; Z79.890 Hormone replacement therapy; Z79.899 Other long term (current) drug therapy; Z86.718 Personal history of other venous thrombosis and embolism; Z86.711 Personal history of pulmonary embolism; Z90.5 Acquired absence of kidney
CPT/HCPCS: 74177; 80048; 80076; 81001; 85025; 85610; 85730; 99282; Q9967; A4216

== ENCOUNTER → 2024-10-05 | Outpatient (CLI) | payer MEDICARE, SELFPAY ==
--- NOTE | 2024-10-05 09:41 | ECHOLONC_ITS ---
Reason For Study Reason For Study: RENAL CANCER Procedure This was a limited 2D transthoracic echocardiogram. Myocardial strain analysis was performed in this exam to aid in the assessment of cardiac function. The study was technically difficult. Exam performed in department. Left Ventricle Normal LV size. Mild concentric left ventricular hypertrophy. Left ventricular systolic function is lower limits of normal. The left ventricular ejection fraction is 55 %. No regional wall motion abnormalities noted. Right Ventricle Normal RV size. Normal systolic function. Atria The left atrium is mildly enlarged. Normal right atrium. Mitral Valve Bileaflet diffuse mitral valve thickening. Tricuspid Valve Normal tricuspid valve. Aortic Valve Trisinus/trileaflet aortic valve. Pulmonic Valve Normal pulmonic valve. Great Vessels Normal aortic root. Pericardium/Pleural No pericardial effusion. MMode/2D Measurements & Calculations LVIDd: 5.9 cm IVSd: 1.3 cm Ao root diam: 3.6 cm LVIDs: 4.4 cm LVPWd: 1.3 cm RVDd: 3.3 cm FS: 25.5 % LAV(MOD-bp): 128.6 ml LVAd ap4: 40.3 cm2 LVAd ap2: 33.2 cm2 LAV(MOD-bp) Indexed: 58.0 ml/m2 LVLd ap4: 9.1 cm LVLd ap2: 9.0 cm LAV(MOD-sp2): 124.1 ml EDV(MOD-sp4): 143.9 ml EDV(MOD-sp2): 102.2 ml LAV(MOD-sp4): 121.6 ml EDV(sp4-el): 151.2 ml EDV(sp2-el): 103.6 ml LVAs ap4: 23.6 cm2 LVAs ap2: 19.3 cm2 LVLs ap4: 7.5 cm LVLs ap2: 7.4 cm ESV(MOD-sp4): 63.4 ml ESV(MOD-sp2): 43.8 ml ESV(sp4-el): 63.5 ml ESV(sp2-el): 42.8 ml EF(MOD-sp4): 56.0 % EF(MOD-sp2): 57.1 % EF(sp4-el): 58.0 % SV(MOD-sp4): 80.5 ml SV(MOD-sp2): 58.4 ml SV(sp4-el): 87.7 ml SI(MOD-sp4): 36.3 ml/m2 SI(MOD-sp2): 26.3 ml/m2 LA dimension(2D): 5.4 cm RA A4 area: 15.0 cm2 ECHO/ONC Echo, Limited Study Interpretation Summary Normal LV size. Left ventricular systolic function is lower limits of normal. The global longitudinal strain = -16.7 [place]% (abnormal). The global longitudinal strain = -16.7 [place]% (abnormal). Ordering Physician: Mitchel Pereira Referring Physician: Houston Olson Performed By: Judie Jacobson, RDCS, RVT
== END | disposition home or self-care (01) ==
LOC: CVS 09:40
PROVIDERS: PCP Family Medicine; Referring Provider Internal Medicine Hematology & Oncology; Visit Provider Internal Medicine Hematology & Oncology
DX: I10 Essential (primary) hypertension (principal); Z79.69 Long term (current) use of other immunomodulators and immunosuppressants
CPT/HCPCS: 93308; 93356

== ENCOUNTER 2024-11-09 01:44 | Emergency (ER) | payer MEDICARE, SELFPAY ==
[2024-11-09] VITALS (7 sets, daily range): BP systolic 162–185; BP diastolic 77–91; PULSE 69–80; RESP 14–21; TEMP 36.5–36.6; O2SAT 93–99; BMI 33.5
--- NOTE | 2024-11-09 02:23 | EKG12_ITS ---
Test Reason : Blood Pressure : */* mmHG Vent. Rate : 71 BPM Atrial Rate : 71 BPM P-R Int : 158 ms QRS Dur : 104 ms QT Int : 446 ms P-R-T Axes : 56 0 9 degrees QTcB Int : 484 ms Normal sinus rhythm Prolonged QT Abnormal ECG Confirmed by Rusty Mendez ([id number]), restaurant expeditor DEMETRI SMITH ([id number]) on 11/10/2024 12:45:13 PM Referred By: NATHANAEL Confirmed By: Rusty Mendez
[2024-11-09] MEDS: Morphine 4 MG/ML Syringe IV (02:45)
[2024-11-09 03:09] LABS: ALB/GLOB Ratio 0.9 RATIO (0.9-2.4); AST(SGOT) 30 U/L (<=37); Alanine Aminotransfer ALT/SGPT 13 U/L (<=46); Albumin, Serum 3.1 g/dL (3.4-4.8); Alkaline Phosphatase 81 U/L (40-129); Anion Gap 14 (5-15); BUN 31 mg/dL (4-19); BUN/Creat Ratio 10.6 RATIO (10-20); Calcium,Total 8.7 mg/dL (7.6-11.0); Carbon Dioxide 24.5 mmol/L (21.0-32.0); Chloride 93 mmol/L (98-108); Creatinine, Serum 2.95 mg/dL (0.70-1.20); EST Glomerular Filtration Rate 22 (>60); Globulin 3.5 g/dL (2.2-4.2); Glucose 125 mg/dL (70-99); Potassium 4.5 mmol/L (3.3-5.1); Protein, Total 6.6 g/dL (5.9-8.4); Sodium Level 131 mmol/L (133-145); Total Bilirubin 0.64 mg/dL (0.00-1.30); Troponin T High Sensitivity 51 ng/L (<=22)
[2024-11-09 03:12] LABS: D-Dimer Quantitative (DVT/PE) 2.26 FEU/ug/m (0.27-0.49)
--- NOTE | 2024-11-09 03:20 | CT_ITS ---
PROCEDURE: CTA CHEST W/WO CONTRAST 11/09/2024 REASON FOR EXAM: CHEST PAIN, HX OF PE, ELEVATED DIMER TECHNIQUE: CTA imaging of the chest with intravenous contrast. Coronal and Sagittal reconstruction series were provided. Maximum intensity projection (MIPs) CONTRAST: 100 cc Isovue 370 IV One or more dose reduction techniques were used (e.g., Automated exposure control, adjustment of the mA and/or kV according to patient size, use of iterative reconstruction technique). RADIATION DOSE SUMMARY: CTDlvol: 19.00 mGy DLP: 535.20 mGycm COMPARISON: CT abdomen and pelvis 10/04/[address] chest abdomen and pelvis 04/17/2024 FINDINGS: No evidence of filling defect to suggest pulmonary embolism. Thoracic aorta appears within limits. Moderate to heavy appearing three-vessel coronary calcification mainly left main and proximal LAD again noted. No pericardial or pleural effusion. The central airways appear patent. No evidence of acute pulmonary process identified. Bilateral innumerable scattered pulmonary nodules consistent with metastatic disease is again noted. The nodules overall appear smaller than on the prior study. Right hilar adenopathy appears smaller than the prior study. Mild subcarinal adenopathy. 2 pancreatic masses are again seen not significantly changed as imaged. Heterogeneous multilobular mixed cystic and solid masslike area at the visualized partially imaged upper right kidney is not significantly changed in appearance with some areas of associated small calcification again seen. Again note of status post previous left nephrectomy. There is now new appearing lytic lesion within the right pedicle of T2 as well as the vertebral body with associated appearing pathologic vertebral body fracture without significant appearing loss of vertebral body height or retropulsion of bone. CT/CTA Chest W/WO Contrast IMPRESSION: No evidence of filling defect to suggest pulmonary embolism. Moderate to heavy appearing three-vessel coronary calcification mainly left dom n and proximal LAD again noted. No evidence of acute pulmonary process identified. Bilateral innumerable scatt ered pulmonary nodules consistent with metastatic disease is again noted. The nodules overall appear smaller than on the prior s tudy. Right hilar adenopathy appears smaller than the prior study. Mild subcarinal ad enopathy. 2 pancreatic masses are again seen not significantly changed as imaged. Heterog eneous multilobular mixed cystic and solid masslike area at the visualized partially imaged upper right kidney is not sign ificantly changed in appearance with some areas of associated small calcification again seen. Again note of status post previous l eft nephrectomy. There is now NEW appearing lytic lesion within the right pedicle of T2 as well as the vertebral body with associated appearing pathologic vertebral body fracture without significant appearing loss of verteb ral body height or retropulsion of bone. Reading Location: [id number]
[2024-11-09 04:01] LABS: Absolute Lymphocyte Count 1.15 X10^3/uL (0.83-4.51); Absolute Neutrophil Count 5.7 X10^3/uL (2.0-7.7); Basophil# 0.07 X10^3/uL; Basophil% 0.9 % (0-1); Eosinophil# 0.09 X10^3/uL; Eosinophils% 1.2 % (0-5); Hematocrit 33.3 % (40-54); Hemoglobin 10.5 g/dL (13.0-16.5); Lymphocyte # 1.15 X10^3/ul (0.83-4.51); Lymphocyte % 14.8 % (19-41); Mean Corp Hgb Conc 31.5 g/dL (32-36); Mean Corpuscular Hgb 27.9 pg (27.0-32.0); Mean Corpuscular Volume 88.6 fL (80-94); Mean Platelet Vol. 9.8 fl (6.2-12.0); Monocyte# 0.78 X10^3/uL; NRBC Flagged by Analyzer 0 % (0-5); Neutrophil # 5.67 X10^3/uL (2.7-7.7); Neutrophil % 72.7 % (47-70); Platelet Count 230 K/mm3 (150-450); RBC Distribution Width CV 16.1 % (11.6-14.6); RBC Distribution Width SD 52.2 fl (35.1-43.9); Red Blood Count 3.76 M/mm3 (4.6-6.2); White Blood Count 7.8 K/mm3 (4.4-11.0)
--- NOTE | 2024-11-09 04:08 | EDS_ITS ---
HPI History of Present Illness Chief Complaint: Back Informant: patient Narrative Narrative: Patient is a 68-year-old male with relatively complex medical history including end-stage renal disease on dialysis, chronic diastolic heart failure, diabetes, prior renal cell carcinoma with mets to the lung and DVT/PE presenting with right-sided back/shoulder pain. Patient states about 3 weeks ago he had gross hematuria was seen in our ER. At that time he was taken off of his Eliquis. He notes his hematuria had resolved however he then went on to develop this right sided shoulder blade pain. He notes has been constant over the past 2 weeks but became worse tonight. He states it moved to the left side and started to radiate to the left side of his neck. Seems to be worse with movement as well as deep breaths. He told family about and his son brought him into the emergency room tonight. He denies associated shortness of breath. Denies any new edema. When asked if he has chest pain he states he is not sure. Denies any fever or chills. No nausea or vomiting reported. Had hemodialysis today and his operations project manager is Dr. Tucker. No other complaints or concerns reported at this time. Patient states he follows with Dr. Kuhn is actually scheduled for a bone scan today. [facility] Medical History Wears glasses History of Clostridium difficile infection Prostate disease Low iron History of pulmonary embolus (PE) History of DVT (deep vein thrombosis) Easy bruising Blackout Non-smoker Cancer Diabetes GERD (gastroesophageal reflux disease) Pancreatitis Coronary artery disease History of kidney cancer CKD (chronic kidney disease) stage 4, GFR 15-29 ml/min Pancreatic mass Anemia COVID-19 (07/11/21) Renal dysfunction Chronic diastolic (congestive) heart failure Deep vein thrombosis of right lower extremity (11/19/14) Paroxysmal atrial fibrillation Neoplastic (malignant) related fatigue Hypothyroidism Pneumonitis Metastatic 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 Abnormal CT of the abdomen Obesity Atrial fibrillation with rapid ventricular response (07/04/19) Bilateral pulmonary embolism (11/19/14) Type 2 diabetes mellitus Essential (primary) hypertension Gout Renal cell cancer Viral URI Encounter for education Home Medications ?Medication ?Instructions ?Recorded ?Last Taken ?Type allopurinol 100 mg tablet 100 mg PO DAILYCM gout 05/0308/05/19 History finasteride 5 mg tablet 5 mg PO DAILY prostate 05/0308/05/19 History clonidine HCl 0.1 mg tablet 0.1 mg PO BID blood pressu re 09/25/21 02/25/22 09:30 History ferrous sulfate 325 mg (65 mg 325 mg PO BID #60 tabs 0 01/06/22 Unknown Rx iron) tablet pantoprazole 40 mg tablet,delayed 40 mg PO DAILY GERD 02/16/22 02/25/22 09:30 History release diltiazem HCl 120 mg See Rx Instructions .Route 0 11/22/23 Unknown Rx capsule,extended release 24 hr .COMPLEX #180 caps metoprolol tartrate 100 mg tablet 100 mg PO BID #180 t abs 11/22/23 Unknown Rx vitamin B complex-vitamin C-folic 1 tab PO DAILY 01/02 Unknown History acid 0.8 mg tablet (Theresa-Fabian) axitinib 5 mg tablet 5 mg PO BID 06/07/24 Unknown History glipizide 5 mg tablet 2.5 mg PO BID 08/15/24 Unkno wn History levothyroxine 125 mcg tablet 125 mcg PO DAILY 08/15/24 Unknown History aspirin 81 mg tablet,delayed 81 mg PO QDAY 10/23/24 Un known History release (Adult Low Dose Aspirin) hydrocodone-acetaminophen 5-325mg 1 tab PO Q6H PRN PRN Pain 3 days 11/09/24 Unknown Rx 5mg-325mg #12 TABLETS Allergy/AdvReac Type Severity Reaction Status Date / Time Penicillins (PCN) Allergy PT UNSURE Verified 11/09/24 01:51 OF REACTION Family History Mother Diabetes Heart disease Kidney disease Hypertension CVA (cerebral vascular accident) Father Heart disease Surgical History S/P arteriovenous (AV) fistula creation (~03/2022) History of esophagogastroduodenoscopy (EGD) History of colonoscopy (2018) History of total hip arthroplasty (04/2015) History of left nephrectomy (2010) Social History Smoking Status: Never smoker second hand exposure: No alcohol intake: never substance use type: does not use caffeine: Yes frequency: does not exercise ROS ROS ED Constitutional Constitutional ED: Denies chills or fever(s) ENT ENT ED: Denies rhinorrhea Cardiovascular Cardiovascular: Denies chest pain Respiratory/Chest Respiratory/Chest: Denies dyspnea Gastrointestinal Gastrointestinal: Denies abdominal pain, nausea or vomiting Genitourinary Genitourinary ED: Reports hematuria and other Details: hematuria resolved Musculoskeletal Musculoskeletal: Reports back pain and neck pain; Denies arthralgias Integumentary Denies rash Neurologic Neurologic: Denies paresthesias or weakness Hematologic/Lymphatic Hematologic/Lymphatic: Denies easy bleeding or easy bruising EXAM Physical Exam Const Vital Signs: 11/09/24 01:45 11/09/24 01:49 11/09/24 02:49 Temperature 97.7 F L Temperature Source Oral Pulse Rate 75 73 69 Respiratory Rate 21 H 17 17 Blood Pressure 176/88 H 167/77 H Blood Pressure Mean 117 107 Pulse Ox 99 99 97 Oxygen Delivery Method Room Air Room Air Room Air 11/09/24 03:00 11/09/24 04:00 11/09/24 04:57 Temperature Temperature Source Pulse Rate 73 73 80 Respiratory Rate 17 20 H 14 Blood Pressure 169/91 H 175/79 H 162/78 H Blood Pressure Mean 117 111 106 Pulse Ox 93 97 Oxygen Delivery Method Room Air Room Air 11/09/24 05:44 Temperature 97.9 F Temperature Source Pulse Rate 74 Respiratory Rate 20 H Blood Pressure 185/85 H Blood Pressure Mean 118 Pulse Ox 94 Oxygen Delivery Method Positive well nourished and well developed General Appearance ED: well developed and NAD HEENT Reports moist mucous membranes Eyes General Eye ED: Negative for pale conjunctiva Neck supple and no JVD Resp normal respiratory effort and clear to auscultation bilaterally Auscultation: Negative for wheezes or diminished lung sounds Cardio regular rate and regular rhythm Cardio Narrative: AV fistula of the left forearm with palpable thrill GI normal to inspection, nondistended, normoactive bowel sounds, soft to palpation and non-tender Back/Spine Back/Spine Narrative: No midline spinal tenderness present. Patient has reproducible tenderness palpation of the thoracic paraspinal region approximately at T5-7 General Back: Negative for CVA tenderness Cervical Spine: Negative for cervical spine tenderness Thoracic Spine / Upper Back: paraspinal muscle tenderness bilateral Extremity normal to inspection General Extremety ED: Negative for edema General Extremity: Negative for edema Neuro oriented x3 Neuro Narrative: No focal deficits appreciated Sensorium / Orientation: alert Psych mental status grossly normal Skin no rashes or lesions noted and no wounds MDM MDM MDM Narrative Medical decision making narrative: Patient 68-year-old male presenting with right-sided back pain for the past 2 weeks is now moved to the left side after neck tonight. He does report that he recently stopped taking Eliquis (had previously been on it for DVT/PE) because of hematuria. Differential includes pleuritic pain, muscular pain, PE, pneumonia, pneumothorax and ACS. Patient given dose of morphine for pain control in ER. Vital signs significant for hypertension but he does have a history of resistant hypertension. CBC shows chronic anemia with a hemoglobin of 10.5 however this appears to be stable compared to a month ago. Do not suspect acute anemia as a cause of his symptoms. No leukocytosis or signs of infection. D-dimer is elevated at 2.26 so CTA is added on. Patient has mild hyponatremia with a sodium of 131, chloride of 93 and creatinine of 2.95. Suspect these derangements are more associated with his recent dialysis. Patient is incisional disease with hemodialysis so I feel the benefits of ruling out PE outweigh the risk of IV contrast. In addition patient will have dialysis within the next 48 hours. High sensitive troponin mildly elevated at 51 on repeat 47. Do not think this is consistent with ACS. His EKG does not show ischemic changes. Patient is have improvement with morphine in the emergency room. CTA of the chest shows a new appearing lytic lesion of the right pedicle of T2 as well as vertebral body with associated pathologic vertebral body fracture without significant loss of vertebral body height or retropulsion of bone. On repeat exam patient's pain does not localize to the T2 vertebrae and is more at the level of T7. The pain is reproducible direct palpation. Patient will be discharged home with prescription for Fisher for pain control as well as Lidoderm patch given in the emergency room. He will follow-up later today for his bone scan with oncology. Is given return precautions to the ER. This time I do not think he requires inpatient pain management or further workup for this pain. Patient is agreeable with this plan of care. Discharged home in stable and improved condition. Lab Data Attestation: I reviewed the patient's lab results. Labs: Laboratory Results - last 24 hr 11/09/24 11/09/24 02:05 04:05 WBC 7.8 RBC 3.76 L Hgb 10.5 L Hct 33.3 L MCV 88.6 MCH 27.9 MCHC 31.5 L RDW Std Deviation 52.2 H RDW Coeff of Shanell 16.1 H Plt Count 230 MPV 9.8 Immature Gran % (Auto) 0.400 Neut % (Auto) 72.7 H Lymph % (Auto) 14.8 L [place] % (Auto) 10.0 Eos % (Auto) 1.2 Baso % (Auto) 0.9 Absolute Neuts (auto) 5.7 Absolute Lymphs (auto) 1.15 Nucleated RBC % 0 D-Dimer Quant (PE/DVT) 2.26 H* Sodium 131 L Potassium 4.5 Chloride 93 L Carbon Dioxide 24.5 Anion Gap 14 BUN 31 H Creatinine 2.95 H Estim Creat Clear Calc 29.70 L Est GFR (MDRD) Non-Af 22 L BUN/Creatinine Ratio 10.6 Glucose 125 H Calcium 8.7 Total Bilirubin 0.64 AST 30 ALT 13 Alkaline Phosphatase 81 Troponin T High Sens 51 H Troponin T Hi Sens 2 Hr 47 H Total Protein 6.6 Albumin 3.1 L Globulin 3.5 Albumin/Globulin Ratio 0.9 Radiography Diagnostic Testing: Clinical Impression(s) from Imaging Studies Chest CTA 11/09/24 03:20 IMPRESSION: No evidence of filling defect to suggest pulmonary embolism. Moderate to heavy appearing three-vessel coronary calcification mainly left main and proximal LAD again noted. No evidence of acute pulmonary process identified. Bilateral innumerable scattered pulmonary nodules consistent with metastatic disease is again noted. The nodules overall appear smaller than on the prior study. Right hilar adenopathy appears smaller than the prior study. Mild subcarinal adenopathy. 2 pancreatic masses are again seen not significantly changed as imaged. Heterogeneous multilobular mixed cystic and solid masslike area at the visualized partially imaged upper right kidney is not significantly changed in appearance with some areas of associated small calcification again seen. Again note of status post previous left nephrectomy. There is now NEW appearing lytic lesion within the right pedicle of T2 as well as the vertebral body with associated appearing pathologic vertebral body fracture without significant appearing loss of vertebral body height or retropulsion of bone. Reading Location: [id number] Rhythm Strip Rhythm Strip: Sinus Rhythm Rate: 72 Ectopy: None EKG Initial EKG: Attestation: I personally reviewed and interpreted this EKG as follows: Interpretation: Sinus Rhythm Comments: Normal sinus rhythm at 72 bpm Left axis deviation Minimal voltage criteria for LVH Normal intervals Normal ST segments Discharge Plan Triage Chief Complaint: Back ED Provider: Ana Flores Dx/Rx/DC Orders Clinical Impression: Acute bilateral thoracic back pain, Dialysis patient, Lytic lesion of bone on x-ray Instructions: ED Back Pain (Acute or Chronic) Prescriptions: New hydrocodone-acetaminophen 5-325 mg tablet 1 tab PO Q6H PRN PRN (Reason: Pain) 3 Days Qty: 12 0RF No Action clonidine HCl 0.1 mg tablet 0.1 mg PO BID Theresa-Fabian 0.8 mg tablet 1 tab PO DAILY levothyroxine 125 mcg tablet 125 mcg PO DAILY glipizide 5 mg tablet 2.5 mg PO BID axitinib 5 mg tablet 5 mg PO BID aspirin [Adult Low Dose Aspirin] 81 mg tablet,delayed release (DR/EC) 81 mg PO QDAY allopurinol 100 MG tablet 100 mg PO DAILYCM Patient Comments: GOUT finasteride 5 MG tablet 5 mg PO DAILY Patient Comments: BPH ferrous sulfate 325 mg (65 mg iron) tablet 325 mg PO BID Qty: 60 0RF pantoprazole 40 mg tablet,delayed release (DR/EC) 40 mg PO DAILY Rx Instructions: take 1 tablet by mouth once daily diltiazem HCl 120 mg capsule,extended release 24hr See Rx Instructions .ROUTE .COMPLEX Qty: 180 4RF Dose Instruction: take 1 capsule by mouth twice a day Rx Instructions: take 1 capsule by mouth twice a day metoprolol tartrate 100 mg tablet 100 mg PO BID Qty: 180 3RF Primary Care Provider: Houston Olson Referrals: Houston Olson DO [Primary Care Provider] - Activity Restrictions/Additional Instructions: Your cardiac and lung workup was normal/stable today. No signs of blood clot in the lungs, new lung mass or pneumonia/heart issues that could be causing your symptoms today. You have been given a short course of pain medication. I do recommend taking a stool softener with this to prevent opioid-induced constipation. Follow-up with your bone scan as scheduled. With your rehab physician. Return if you have recurrence or worsening of your symptoms. Print Language: Citizen [place] Disposition Disposition: Home, Self Care Discharge Date/Time: 11/09/24 05:45
[2024-11-09 04:28] LABS: Troponin T High Sens 2 HR 47 ng/L (<=22)
[2024-11-09] MEDS: HYDROcodone Bitartrate/Apap 5/325 Tablet PO (05:24)
[2024-11-09] MEDS: Lidocaine 5% Patch 1 PATCH TOPICAL (05:26)
== END 2024-11-09 05:45 | disposition home or self-care (01) ==
PROVIDERS: Emergency Provider Emergency Medicine; PCP Family Medicine; Visit Provider Emergency Medicine
DX: M54.6 Pain in thoracic spine (principal); I13.2 Hypertensive heart and chronic kidney disease with heart failure and with stage 5 chronic kidney disease, or end stage renal disease; N18.6 End stage renal disease; I50.32 Chronic diastolic (congestive) heart failure; I48.0 Paroxysmal atrial fibrillation; E11.22 Type 2 diabetes mellitus with diabetic chronic kidney disease; I25.10 Atherosclerotic heart disease of native coronary artery without angina pectoris; D64.9 Anemia, unspecified; M84.48XA Pathological fracture, other site, initial encounter for fracture; M25.511 Pain in right shoulder; M54.2 Cervicalgia; M89.8X9 Other specified disorders of bone, unspecified site; E87.1 Hypo-osmolality and hyponatremia; E03.9 Hypothyroidism, unspecified; Z99.2 Dependence on renal dialysis; Z79.82 Long term (current) use of aspirin; Z79.84 Long term (current) use of oral hypoglycemic drugs; Z79.890 Hormone replacement therapy; Z79.899 Other long term (current) drug therapy; Z86.718 Personal history of other venous thrombosis and embolism; Z86.711 Personal history of pulmonary embolism; Z85.528 Personal history of other malignant neoplasm of kidney
CPT/HCPCS: 71275; 80053; 84484; 85025; 85379; 93005; 96374; 99284; Q9967; A4216

== ENCOUNTER 2024-11-09 09:47 | Emergency (ER) | payer MEDICARE, SELFPAY ==
[2024-11-09 09:47] VITALS: BP 180/77; PULSE 77; RESP 18; TEMP 36.7; O2SAT 98
--- NOTE | 2024-11-09 10:02 | EKG12_ITS ---
Test Reason : BACK PAIN Blood Pressure : */* mmHG Vent. Rate : 72 BPM Atrial Rate : 72 BPM P-R Int : 150 ms QRS Dur : 98 ms QT Int : 440 ms P-R-T Axes : 48 -7 14 degrees QTcB Int : 481 ms Normal sinus rhythm Minimal voltage criteria for LVH, may be normal variant ( [place] product ) Prolonged QT Abnormal ECG Confirmed by Rusty Mendez ([id number]), offline editor DEMETRI SMITH ([id number]) on 11/10/2024 7:01:18 AM Referred By: MARCO Confirmed By: Rusty Mendez
--- NOTE | 2024-11-09 10:03 | EX.ED.DYSGE1 ---
HPI History of Present Illness Chief Complaint: Nausea/Vomiting Detail of Chief Complaint: Vomiting Informant: patient and family Narrative Narrative: Patient presents to the emergency department complaint of vomiting that started this morning. Patient states that he was seen in the emergency department for some back pain that he has had for about 3 weeks. He had a workup including labs and a CTA of the chest that showed no evidence for PE. He did have a T2 lytic lesion. Patient has known history of kidney cancer with bony metastasis. Patient also had an EKG in troponin which showed an elevated first troponin but second troponin was actually trending down and physician did not feel patient was having acute coronary syndrome. Patient denies fever. Denies abdominal pain. Denies diarrhea. Denies chest pain. He has no heart history other than A-fib. He is currently not anticoagulated. [facility] Medical History Wears glasses History of Clostridium difficile infection Prostate disease Low iron History of pulmonary embolus (PE) History of DVT (deep vein thrombosis) Easy bruising Blackout Non-smoker Cancer Diabetes GERD (gastroesophageal reflux disease) Pancreatitis Coronary artery disease History of kidney cancer CKD (chronic kidney disease) stage 4, GFR 15-29 ml/min Pancreatic mass Anemia COVID-19 (07/11/21) Renal dysfunction Chronic diastolic (congestive) heart failure Deep vein thrombosis of right lower extremity (11/19/14) Paroxysmal atrial fibrillation Neoplastic (malignant) related fatigue Hypothyroidism Pneumonitis Metastatic 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 Abnormal CT of the abdomen Obesity Atrial fibrillation with rapid ventricular response (07/04/19) Bilateral pulmonary embolism (11/19/14) Type 2 diabetes mellitus Essential (primary) hypertension Gout Renal cell cancer Viral URI Encounter for education Home Medications ?Medication ?Instructions ?Recorded ?Last Taken ?Type allopurinol 100 mg tablet 100 mg PO DAILYCM gout 05/03/15 08/05/19 History finasteride 5 mg tablet 5 mg PO DAILY prostate 05/03/15 08/05/19 History clonidine HCl 0.1 mg tablet 0.1 mg PO BID blood pressure 09/25/21 02/25/22 09:30 History ferrous sulfate 325 mg (65 mg 325 mg PO BID #60 tabs 01/06/22 Unknown Rx iron) tablet pantoprazole 40 mg tablet,delayed 40 mg PO DAILY GERD 02/16/22 02/25/22 09:30 History release diltiazem HCl 120 mg See Rx Instructions .Route 11/22/23 Unknown Rx capsule,extended release 24 hr .COMPLEX #180 caps metoprolol tartrate 100 mg tablet 100 mg PO BID #180 tabs 11/22/23 Unknown Rx vitamin B complex-vitamin C-folic 1 tab PO DAILY 01/03/24 Unknown History acid 0.8 mg tablet (Theresa-Fabian) axitinib 5 mg tablet 5 mg PO BID 06/07/24 Unknown History glipizide 5 mg tablet 2.5 mg PO BID 08/15/24 Unknown History levothyroxine 125 mcg tablet 125 mcg PO DAILY 08/15/24 Unknown History aspirin 81 mg tablet,delayed 81 mg PO QDAY 10/23/24 Unknown History release (Adult Low Dose Aspirin) hydrocodone-acetaminophen 5-325mg 1 tab PO Q6H PRN PRN Pain 3 days 11/09/24 Unknown Rx 5mg-325mg #12 TABLETS metoclopramide HCl 5 mg tablet 5 mg PO Q6H #10 tabs 11/09/24 Unknown Rx (Reglan) Allergy/AdvReac Type Severity Reaction Status Date / Time Penicillins (PCN) Allergy PT UNSURE Verified 11/09/24 01:51 OF REACTION Family History Mother Diabetes Heart disease Kidney disease Hypertension CVA (cerebral vascular accident) Father Heart disease Surgical History S/P arteriovenous (AV) fistula creation (~03/2022) History of esophagogastroduodenoscopy (EGD) History of colonoscopy (2018) History of total hip arthroplasty (04/2015) History of left nephrectomy (2010) Social History (Updated 11/09/24 @ 12:08 by Isabella Kaba) housing: house Smoking Status: Never smoker second hand exposure: No alcohol intake: never substance use type: does not use caffeine: Yes frequency: does not exercise ROS ROS ED Review of Systems ROS Unobtainable: other Constitutional Constitutional ED: Reports lethargy; Denies chills, fever(s), sweats or weight loss Eyes Eyes: Denies blurry vision, change in vision or diplopia ENT ENT ED: Denies rhinorrhea or sore throat Cardiovascular Cardiovascular: Denies chest pain, orthopnea or racing heartbeat Respiratory/Chest Respiratory/Chest: Denies cough, dyspnea, dyspnea on exertion, orthopnea or sputum Gastrointestinal Gastrointestinal: Reports nausea and vomiting; Denies abdominal pain or diarrhea Genitourinary Genitourinary ED: Denies dysuria, hematuria or urinary frequency Musculoskeletal Musculoskeletal: Denies arthralgias, back pain, myalgias or neck pain Integumentary Denies abscess, Abrasions or rash Neurologic Neurologic: Denies headache(s) or weakness Psychiatric Psychiatric: Denies anxiety, depression or suicidal thoughts Endocrine Endocrinology: Denies polydipsia, polyphagia or polyuria Hematologic/Lymphatic Hematologic/Lymphatic: Denies easy bleeding, easy bruising or lymphadenopathy Allergic/Immunologic Allergic/Immunologic ED: Denies mouth swelling, tongue swelling or urticaria EXAM Physical Exam Const Vital Signs: 11/09/24 09:47 11/09/24 11:47 Temperature 98.1 F Temperature Source Temporal Pulse Rate 77 84 Respiratory Rate 18 16 Blood Pressure 180/77 H Blood Pressure Mean 111 Pulse Ox 98 96 Oxygen Delivery Method Room Air Positive well nourished and well developed General Appearance ED: well developed and NAD HEENT Reports TM's clear and moist mucous membranes normocephalic and atraumatic; Negative for trauma or tenderness Tympanic Membrane ED: Yes TM's clear Eyes PERRL and EOMs intact bilaterally General Eye ED: Negative for pale conjunctiva or scleral icterus Neck no lymphadenopathy, supple and no JVD General: Negative for tenderness Chest Wall inspection of chest normal and palpation of chest normal Chest: Negative for tenderness Resp normal respiratory effort and clear to auscultation bilaterally Effort and Inspection: Negative for respiratory distress or pain with movement Auscultation: Negative for rhonchi, wheezes or diminished lung sounds Cardio regular rate, regular rhythm, S1 normal heart sound, S2 normal heart sound and no murmurs Peripheral Pulses: pulses 2+ throughout GI normal to inspection, nondistended, normoactive bowel sounds, soft to palpation, non-tender, non-distended and no masses Back/Spine no CVA tenderness and no thoracic nor lumbar tenderness Extremity normal to inspection General Extremety ED: Negative for edema General Extremity: Negative for edema Neuro oriented x3, CN's II-XII intact bilaterally, no sensory deficits noted and gait normal Sensorium / Orientation: awake, alert, oriented to person, oriented to place and oriented to time Motor Exam: strength 5/5 throughout and strength abnormal Psych mental status grossly normal Skin no rashes or lesions noted and no wounds MDM MDM MDM Narrative Medical decision making narrative: Patient presents with vomiting after being evaluated in the emergency department earlier today. He was scheduled to have a bone scan today at 9:00 but missed that appointment now. He has a history of renal cancer with mets to the bone. He had received morphine earlier in the day. Clinically he looks well. CBC with differential, 6.4 with hemoglobin 11.0. Chemistries unremarkable. Troponin was 47 which is stable compared with earlier today. He is not having chest pain and I do not think he is having acute coronary syndrome. EKG obtained arrival showed a sinus rhythm with ventricular rate of 71 bpm with a prolonged QT of 446. Patient urinalysis was unremarkable. After antiemetic he has had no further vomiting. He was able to tolerate p.o. fluids. At this point he will be discharged to home with a prescription for Reglan. Given the elevated QT on EKG. I suspect his vomiting may be related to narcotic pain medication received earlier as he has no other complaints. Patient was written for [place] earlier in the day therefore I will write him for Reglan. Patient advised to take the [place] with food. He is advised to take a daily stool softener. Patient to return if persistent vomiting, dehydration, or condition worsening way Lab Data Attestation: I reviewed the patient's lab results. Labs: Laboratory Results - last 24 hr 11/09/24 11/09/24 10:12 11:35 WBC 6.4 RBC 3.93 L Hgb 11.0 L Hct 35.0 L MCV 89.1 MCH 28.0 MCHC 31.4 L RDW Std Deviation 52.4 H RDW Coeff of Shanell 16.1 H Plt Count MPV 10.8 Immature Gran % (Auto) 0.500 Neut % (Auto) 75.7 H Lymph % (Auto) 11.9 L [place] % (Auto) 9.7 Eos % (Auto) 1.3 Baso % (Auto) 0.9 Absolute Neuts (auto) 4.8 Absolute Lymphs (auto) 0.76 L Nucleated RBC % 0 Platelet Estimate ADEQUATE Sodium 131 L Potassium 5.0 Chloride 93 L Carbon Dioxide 21.7 Anion Gap 16 H BUN 34 H Creatinine 3.29 H Estim Creat Clear Calc 26.49 L Est GFR (MDRD) Non-Af 20 L BUN/Creatinine Ratio 10.5 Glucose 125 H Calcium 9.0 Troponin T High Sens 47 H D Urine Color Yellow Urine Clarity Clear Urine pH 8.0 Ur Specific [place] 1.010 Urine Protein TNP Urine Glucose (UA) 50 H Urine Ketones Negative Urine Occult Blood 150 H Urine Nitrite Negative Urine Bilirubin Negative Urine Urobilinogen Normal Ur Leukocyte Esterase Negative Urine RBC 5-10 SEEN Urine WBC 0-5 SEEN Ur Squamous Epith Cells 0 SEEN Urine Bacteria 0 SEEN Urine Mucus 0 SEEN Urine Yeast RARE U Random Total Protein 309.0 H EKG Initial EKG: Attestation: I personally reviewed and interpreted this EKG as follows: Comments: Sinus rhythm with rate of 71 bpm with prolonged QT Discharge Plan Triage Chief Complaint: Nausea/Vomiting ED Provider: Tayo Cannon Dx/Rx/DC Orders Clinical Impression: Vomiting Instructions: ED Vomiting (Adult) Prescriptions: New metoclopramide HCl [Reglan] 5 mg tablet 5 mg PO Q6H Qty: 10 0RF No Action clonidine HCl 0.1 mg tablet 0.1 mg PO BID Theresa-Fabian 0.8 mg tablet 1 tab PO DAILY levothyroxine 125 mcg tablet 125 mcg PO DAILY glipizide 5 mg tablet 2.5 mg PO BID axitinib 5 mg tablet 5 mg PO BID aspirin [Adult Low Dose Aspirin] 81 mg tablet,delayed release (DR/EC) 81 mg PO QDAY allopurinol 100 MG tablet 100 mg PO DAILYCM Patient Comments: GOUT finasteride 5 MG tablet 5 mg PO DAILY Patient Comments: BPH ferrous sulfate 325 mg (65 mg iron) tablet 325 mg PO BID Qty: 60 0RF pantoprazole 40 mg tablet,delayed release (DR/EC) 40 mg PO DAILY Rx Instructions: take 1 tablet by mouth once daily hydrocodone-acetaminophen 5-325 mg tablet 1 tab PO Q6H PRN PRN (Reason: Pain) 3 Days Qty: 12 0RF diltiazem HCl 120 mg capsule,extended release 24hr See Rx Instructions .ROUTE .COMPLEX Qty: 180 4RF Dose Instruction: take 1 capsule by mouth twice a day Rx Instructions: take 1 capsule by mouth twice a day metoprolol tartrate 100 mg tablet 100 mg PO BID Qty: 180 3RF Primary Care Provider: Houston Olson Referrals: Houston Olson DO [Primary Care Provider] - 3-5 Days Print Language: Czech Disposition Disposition: Home, Self Care
[2024-11-09] MEDS: Ondansetron 4 MG/2 ML Vial IV (10:25)
[2024-11-09 10:27] VITALS: BMI 33.2
[2024-11-09 10:29] LABS: Absolute Lymphocyte Count 0.76 X10^3/uL (0.83-4.51); Absolute Neutrophil Count 4.8 X10^3/uL (2.0-7.7); Basophil# 0.06 X10^3/uL; Basophil% 0.9 % (0-1); Eosinophil# 0.08 X10^3/uL; Eosinophils% 1.3 % (0-5); Lymphocyte # 0.76 X10^3/ul (0.83-4.51); Lymphocyte % 11.9 % (19-41); Mean Corp Hgb Conc 31.4 g/dL (32-36); Mean Corpuscular Volume 89.1 fL (80-94); Mean Platelet Vol. 10.8 fl (6.2-12.0); Monocyte# 0.62 X10^3/uL; Monocyte% 9.7 % (0-10); NRBC Flagged by Analyzer 0 % (0-5); Neutrophil # 4.84 X10^3/uL (2.7-7.7); Neutrophil % 75.7 % (47-70); POSITIVE COUNT YES; RBC Distribution Width CV 16.1 % (11.6-14.6); RBC Distribution Width SD 52.4 fl (35.1-43.9); Red Blood Count 3.93 M/mm3 (4.6-6.2); White Blood Count 6.4 K/mm3 (4.4-11.0)
[2024-11-09 10:53] LABS: Anion Gap 16 (5-15); BUN 34 mg/dL (4-19); BUN/Creat Ratio 10.5 RATIO (10-20); Carbon Dioxide 21.7 mmol/L (21.0-32.0); Chloride 93 mmol/L (98-108); Creatinine, Serum 3.29 mg/dL (0.70-1.20); EST Glomerular Filtration Rate 20 (>60); Estimated Creatinine Clearance 26.49 ml/min (50-250); Glucose 125 mg/dL (70-99); Sodium Level 131 mmol/L (133-145); Troponin T High Sensitivity 47 ng/L (<=22)
[2024-11-09 10:57] LABS: Differential Indicated SCAN CRITERIA MET
[2024-11-09 10:58] LABS: Platelet Estimate ADEQUATE (ADEQ)
[2024-11-09 11:44] LABS: Bacteria 0 SEEN /hpf (None Seen); Mucous, Urine 0 SEEN /hpf (<or=2+); Squamous Epithelial Cells - UA 0 SEEN /hpf (0-5)
[2024-11-09 11:47] VITALS: PULSE 84; RESP 16; O2SAT 96
[2024-11-09 11:58] LABS: Color, Urine Yellow (Yellow); Glucose, Dipstick 50 mg/dl (Normal); Ketone-Dipstick Negative (Negative); Leukocyte Esterase-Dipstick Negative /ul (Negative); Nitrite-Dipstick Negative (Negative); Occult Blood-Urine 150 /ul (Negative); Urine Bilirubin Dipstick Negative (Negative); Urine Clarity Clear (Clear); Urine Urobilinogen Normal (Normal)
[2024-11-09 12:09] LABS: Red Blood Cells-Urine 5-10 SEEN /hpf (0-5); White Blood Cells 0-5 SEEN /hpf (0-5)
[2024-11-09 12:10] LABS: Yeast-Urine RARE /hpf (None Seen)
== END 2024-11-09 14:07 | disposition home or self-care (01) ==
PROVIDERS: Emergency Provider Emergency Medicine; PCP Family Medicine; Visit Provider Emergency Medicine
DX: R11.2 Nausea with vomiting, unspecified (principal); N18.4 Chronic kidney disease, stage 4 (severe); I13.0 Hypertensive heart and chronic kidney disease with heart failure and stage 1 through stage 4 chronic kidney disease, or unspecified chronic kidney disease; I50.32 Chronic diastolic (congestive) heart failure; E11.22 Type 2 diabetes mellitus with diabetic chronic kidney disease; I25.10 Atherosclerotic heart disease of native coronary artery without angina pectoris; M89.8X9 Other specified disorders of bone, unspecified site; Z79.82 Long term (current) use of aspirin; Z79.84 Long term (current) use of oral hypoglycemic drugs; Z79.890 Hormone replacement therapy; Z79.899 Other long term (current) drug therapy; Z85.528 Personal history of other malignant neoplasm of kidney
CPT/HCPCS: 80048; 81001; 84156; 84484; 85025; 93005; 96374; 99283; A4216; J2405

== ENCOUNTER → 2024-11-14 | Outpatient (CLI) | payer MEDICARE, SELFPAY ==
--- NOTE | 2024-11-14 09:24 | NM_ITS ---
PROCEDURE: BONE SCAN WHOLE BODY 11/14/2024 REASON FOR EXAM: MALIGNANT NEOPLASM OF UNSPECIFIED KIDNEY, EXCEPT RENAL PELVIS TECHNIQUE: delayed phase imaging of the body after radiopharmaceutical administration RADIOPHARMACEUTICAL: 27 mCi Technetium-99m MDP IV COMPARISON: CORRELATION WITH EXISTING RELEVANT IMAGING STUDIES (i.e. x-ray, MRI, CT, etc.): CT 4 17 20 FINDINGS: Delayed: Homogeneous uptake of radiopharmaceutical throughout the bony skeleton. No focal areas of increased uptake to suggest metastatic disease. Absence of the lateral aspect of the left 11th and 12th ribs likely related to left nephrectomy. Normal uptake of radiopharmaceutical by the right kidney with excretion into the bladder. The left kidney is not identified consistent with nephrectomy. NM/Bone Scan Whole Body IMPRESSION: No scintigraphic evidence of metastatic disease. Reading Location: [id number]
== END | disposition home or self-care (01) ==
PROVIDERS: PCP Family Medicine; Referring Provider Urology; Visit Provider Urology
DX: C64.9 Malignant neoplasm of unspecified kidney, except renal pelvis (principal)
CPT/HCPCS: 78306; A9541

== ENCOUNTER 2024-11-20 11:05 | Emergency (ER) | payer MEDICARE, SELFPAY ==
[2024-11-20 11:06] VITALS: BP 156/71; PULSE 77; RESP 18; TEMP 36.7; O2SAT 100; BMI 32.6
--- NOTE | 2024-11-20 13:56 | MRI_ITS ---
PROCEDURE: SPINE CERVICAL W/WO CONTRAST 11/20/2024 REASON FOR EXAM: METASTATIC CANCER, NECK PAIN TECHNIQUE: Cervical spine MRI without and with Multiplanar and multisequence images were obtained with intravenous gadolinium- based contrast administration. FINDINGS: Vertebrae: Cervical vertebral body heights are preserved. Bone marrow signal is unremarkable. Alignment: Normal. No spondylolisthesis Spinal Cord: Cervical spinal cord is of normal size and signal intensities. No cervical spinal cord lesions are identified. C2-3: Unremarkable C3-4: Unremarkable C4-5: Mild broad disc osteophyte complex produces mild spinal stenosis. No neural foraminal stenosis. C5-6: Mild broad disc osteophyte complex produces mild spinal stenosis. No neural foraminal stenosis. C6-7: Mild broad disc osteophyte complex produces mild spinal stenosis. No neural foraminal stenosis. C7-T1: Unremarkable Postcontrast images: No suspicious contrast enhancement. MRI/Spine Cervical W/WO Contrast IMPRESSION: MILD CERVICAL DEGENERATIVE DISC DISEASE. NO SIGNIFICANT CENTRAL CANAL OR NEURA L FORAMINAL STENOSIS. Reading Location: [id number]
--- NOTE | 2024-11-20 13:56 | MRI_ITS ---
PROCEDURE: SPINE THORACIC W/WO CONTRAST 11/20/2024 REASON FOR EXAM: METASTATIC CANCER, THORACIC BACK PAIN TECHNIQUE: Thoracic spine MRI without and with intravenous gadolinium-based contrast. Multiplanar and multisequence images were obtained. CONTRAST: Griselda scan VOLUME: 20mL Gauge IV FINDINGS: Vertebrae: Mild loss of height of the T2 vertebral body consistent with a mild compression fracture. Little marrow edema seen within the vertebral body. Little contrast is seen within the vertebral body. However there is contrast enhancement of the contiguous surrounding soft tissues and findings are worrisome for pathologic compression fracture with contiguous spread of tumor. This includes extension into the spinal canal producing mild spinal stenosis. No shellie cord compression. No other enhancing marrow replacing lesions. Alignment: Anatomic alignment. Spinal Cord: Thoracic spinal cord is of normal size and signal intensities. Disc spaces: Unremarkable. Paraspinal Tissues: Unremarkable. Postcontrast images: Unremarkable. MRI/Spine Thoracic W/WO Contrast IMPRESSION: Mild pathologic compression fracture of the T2 vertebral body with contiguous s pread of tumor into the surrounding soft tissues including into the spinal canal producing mild spinal stenosis. No other metas tatic lesions. Reading Location: [id number]
[2024-11-20] MEDS: Ondansetron 4 MG/2 ML Vial IV (14:06)
[2024-11-20] MEDS: Morphine 4 MG/ML Syringe IV (14:06)
[2024-11-20 14:30] LABS: Absolute Lymphocyte Count 0.83 X10^3/uL (0.83-4.51); Absolute Neutrophil Count 7.9 X10^3/uL (2.0-7.7); Basophil# 0.09 X10^3/uL; Basophil% 0.9 % (0-1); Hematocrit 37.5 % (40-54); Hemoglobin 11.4 g/dL (13.0-16.5); Lymphocyte # 0.83 X10^3/ul (0.83-4.51); Lymphocyte % 8.3 % (19-41); Mean Corp Hgb Conc 30.4 g/dL (32-36); Mean Corpuscular Hgb 27.6 pg (27.0-32.0); Mean Corpuscular Volume 90.8 fL (80-94); Mean Platelet Vol. 9.3 fl (6.2-12.0); Monocyte# 0.95 X10^3/uL; Monocyte% 9.5 % (0-10); NRBC Flagged by Analyzer 0 % (0-5); Neutrophil # 7.93 X10^3/uL (2.7-7.7); Neutrophil % 79.8 % (47-70); Platelet Count 334 K/mm3 (150-450); RBC Distribution Width CV 17.4 % (11.6-14.6); RBC Distribution Width SD 57.1 fl (35.1-43.9); Red Blood Count 4.13 M/mm3 (4.6-6.2)
[2024-11-20 15:05] VITALS: BP 144/76; PULSE 78; RESP 16; O2SAT 95
[2024-11-20 15:34] LABS: Anion Gap 17 (5-15); BUN 67 mg/dL (4-19); BUN/Creat Ratio 12.3 RATIO (10-20); Calcium,Total 9.6 mg/dL (7.6-11.0); Carbon Dioxide 22.9 mmol/L (21.0-32.0); Chloride 95 mmol/L (98-108); Creatinine, Serum 5.41 mg/dL (0.70-1.20); EST Glomerular Filtration Rate 11 (>60); Estimated Creatinine Clearance 15.97 ml/min (50-250); Glucose 74 mg/dL (70-99); Potassium 4.8 mmol/L (3.3-5.1); Sodium Level 135 mmol/L (133-145)
--- NOTE | 2024-11-20 16:28 | EDS_ITS ---
<Statement entered by Pascual Meza DO - 11/20/24 22:32> Patient was seen and examined with physician insurance assistant Ewa All components of the history and physical confirmed and agreed. History of present illness and physical exam: Patient is a 68-year-old male with past medical history of DVT, PE, GERD, CAD, chronic kidney disease, heart failure, paroxysmal atrial fibrillation, type 2 diabetes, renal cell cancer who presents to the emergency department with a chief complaint upper back pain. States that this and going on for about 4 weeks and notes that he was following up with Dr. Kuhn and they noted that he was recommended to come here to the emergency department to have a MRI to further assess metastatic lesion. Patient denies any other symptoms associated with this. Review of systems: Constitutional: Denies any fevers, chills, headaches, lightness, dizziness Eyes: Denies change in vision double vision Cardiovascular: Denies chest pain Respiratory: Denies shortness of breath Abdomen: Denies abdominal pain nausea vomiting diarrhea, states he is having normal bowel movements : Denies any urinary symptoms denies any difficulty urinating states that he is urinating normally for himself Neurological: Denies any numbness, weakness, tingling Musculoskeletal: Complains of back pain as noted above Skin: Denies rashes or lesions Physical exam: Agree with above MDM Patient is a 68-year-old male who presented to the emergency department with a chief complaint of back pain that has been going on for 4 weeks and needing MRI per his oncologist that sent him here for this. According to records he was seen on 11/[address] the chest that showed a new appearing lytic lesion of the right pedicle of T2 as well as the vertebral body with associated pathologic vertebral body fracture. MRI was ordered and will be several hours before this is completed. Patient CBC was reviewed showed no evidence leukocytosis white blood count normal at 10, hemoglobin 11.4, platelet count was noted to be 334. Patient sodium normal 135, potassium was 4.8, creatinine was noted to be 5.41. Patient's MRI of the cervical spine reviewed and showed mild cervical dege nerative disc disease no significant central canal or neural foraminal stenosis. Patient's thoracic spine MRI reviewed showed mild pathologic compression fracture of the T2 vertebral body with continuous spread of the tumor into the surrounding soft tissues including to the spinal canal producing mild spinal stenosis. No other metastatic lesions noted. Ewa did speak with the on-call orthopedic surgeon Dr. Atwood who recommends having him follow-up with a spinal surgeon at a tertiary care center on a nonemergent basis case he does require surgery at some point in time if the tumor were to grow or cause cord compression. She then reached out to the [employer] on-call for oncology and they state that they will call him tomorrow morning to set up a referral for spinal surgeon at [facility]. Patient given prescription for Delton he has been able to ambulate here in the emergency department. He was encouraged to return with worsening symptoms or concerns he would like to go home at this point time all question concerns answered he is discharged home in stable condition. Plan: Final impression: T2 pathologic vertebral body fracture chronic Back pain Disposition: Patient will be discharged home in stable condition Supervising attending attestation: Pascual HENSON History of Present Illness Chief Complaint: Back Narrative Narrative: Patient presenting today with upper back/lower neck pain that has been ongoing for about 4 weeks. He reports occasionally having radicular symptoms to his upper extremities bilaterally such as paresthesias, he reports that he does not currently have any radicular symptoms. He has a history of metastatic kidney cancer to the lung on chemotherapy following with Dr. Kuhn. He saw him today in the office, he recommended that he come to the emergency department to have an MRI performed to assess for metastatic lesions. He denies fevers, chills, nausea, and vomiting. He has a PMH of CHF, CKD on dialysis, T2DM, paroxysmal A- fib, and HTN. [facility] Medical History Wears glasses History of Clostridium difficile infection Prostate disease Low iron History of pulmonary embolus (PE) History of DVT (deep vein thrombosis) Easy bruising Blackout Non-smoker Cancer Diabetes GERD (gastroesophageal reflux disease) Pancreatitis Coronary artery disease History of kidney cancer CKD (chronic kidney disease) stage 4, GFR 15-29 ml/min Pancreatic mass Anemia COVID-19 (07/11/21) Renal dysfunction Chronic diastolic (congestive) heart failure Deep vein thrombosis of right lower extremity (11/19/14) Paroxysmal atrial fibrillation Neoplastic (malignant) related fatigue Hypothyroidism Pneumonitis Metastatic 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 Abnormal CT of the abdomen Obesity Atrial fibrillation with rapid ventricular response (07/04/19) Bilateral pulmonary embolism (11/19/14) Type 2 diabetes mellitus Essential (primary) hypertension Gout Renal cell cancer Viral URI Encounter for education Home Medications ?Medication ?Instructions ?Recorded ?Last Taken ?Type allopurinol 100 mg tablet 100 mg PO DAILYCM gout 05/0308/05/19 History finasteride 5 mg tablet 5 mg PO DAILY prostate 05/0308/05/19 History clonidine HCl 0.1 mg tablet 0.1 mg PO BID blood pressu re 09/25/21 02/25/22 09:30 History ferrous sulfate 325 mg (65 mg 325 mg PO BID #60 tabs 0 01/06/22 Unknown Rx iron) tablet pantoprazole 40 mg tablet,delayed 40 mg PO DAILY GERD 02/16/22 02/25/22 09:30 History release diltiazem HCl 120 mg See Rx Instructions .Route 0 11/22/23 Unknown Rx capsule,extended release 24 hr .COMPLEX #180 caps metoprolol tartrate 100 mg tablet 100 mg PO BID #180 t abs 11/22/23 Unknown Rx vitamin B complex-vitamin C-folic 1 tab PO DAILY 01/02 Unknown History acid 0.8 mg tablet (Theresa-Fabian) axitinib 5 mg tablet 5 mg PO BID 06/07/24 Unknown History glipizide 5 mg tablet 2.5 mg PO BID 08/15/24 Unkno wn History levothyroxine 125 mcg tablet 125 mcg PO DAILY 08/15/24 Unknown History aspirin 81 mg tablet,delayed 81 mg PO QDAY 10/23/24 Un known History release (Adult Low Dose Aspirin) hydrocodone-acetaminophen 5-325mg 1 tab PO Q6H PRN PRN Pain 3 days 11/09/24 Unknown Rx 5mg-325mg #12 TABLETS metoclopramide HCl 5 mg tablet 5 mg PO Q6H #10 tabs Unknown Rx (Reglan) hydrocodone-acetaminophen 5-325mg 1 tab PO Q6H 3 days #10 TABLETS 11/20/24 Unknown Rx 5mg-325mg Allergy/AdvReac Type Severity Reaction Status Date / Time Penicillins (PCN) Allergy PT UNSURE Verified 11/20/24 11:06 OF REACTION Family History Mother Diabetes Heart disease Kidney disease Hypertension CVA (cerebral vascular accident) Father Heart disease Surgical History S/P arteriovenous (AV) fistula creation (~03/2022) History of esophagogastroduodenoscopy (EGD) History of colonoscopy (2018) History of total hip arthroplasty (04/2015) History of left nephrectomy (2010) Social History housing: house Smoking Status: Never smoker second hand exposure: No alcohol intake: never substance use type: does not use caffeine: Yes frequency: does not exercise EXAM Physical Exam Const Vital Signs: 11/20/24 11:06 11/20/24 15:05 Temperature 98.1 F Temperature Source Oral Pulse Rate 77 78 Respiratory Rate 18 16 Blood Pressure 156/71 H 144/76 H Blood Pressure Mean 99 98 Pulse Ox 100 95 Oxygen Delivery Method Room Air Positive well nourished, well developed and no apparent distress General Appearance ED: well developed HEENT Reports normocephalic and head/scalp atraumatic Mouth ED: Yes moist mucous membranes normal Eyes PERRL and EOMs intact bilaterally Neck full ROM and supple Chest Wall inspection of chest normal Resp normal respiratory effort and clear to auscultation bilaterally Cardio regular rate and regular rhythm Back/Spine normal ROM and normal to inspection Back/Spine Narrative: No midline cervical, thoracic, or lumbar tenderness, patient has tenderness to the left upper thoracic spine. Extremity normal to inspection and full ROM Neuro oriented x3, CN's II-XII intact bilaterally, moves all extremities, no focal motor deficits and no sensory deficits noted Neuro Narrative: 5/5 strength and sensation bilateral upper and lower extremities Sensorium / Orientation: awake and alert Psych mental status grossly normal and thought process normal Skin no rashes or lesions noted and no wounds MDM MDM MDM Narrative Medical decision making narrative: Patient presenting today after being sent over by Dr. Kuhn For MRI of his cervical and thoracic spine. He was seen here 11/[address] of the chest that showed a new appearing lytic lesion of the right pedicle of T2 as well as the vertebral body with associated pathological vertebral body fracture. He currently does not have any red flag symptoms associated with his upper back pain with a normal neurological exam. MRI will be obtained of the cervical and thoracic spine. He was IV pain medication. CBC shows a chronic anemia with a hemoglobin of 11.4 consistent with previous labs, his creatinine is 5.41 consistent with his CKD. I did speak with his dialysis center to get him on the schedule to be dialyzed tomorrow given we are giving him IV contrast today and he does not have dialysis until Wednesday. They are able to fit him in tomorrow at 9:30 AM. MRI of the cervical spine shows degenerative disc disease, thoracic spine MRI shows known compression fracture of the T2 vertebral body with contusion and spread of the tumor into the surrounding tissues including the spinal canal producing mild spinal stenosis, no other metastatic lesions. No cord compression. I spoke with Dr. Atwood, he recommends having patient follow-up with a spinal surgeon from a tertiary care center on a nonemergent basis in case he does require surgery at some point if the tumor grows and causes cord compression. I spoke with [facility] for oncology, they are going to call him in the morning to set up a referral for a spinal surgeon at [facility]. I will give him a prescription for Delton, he is able to ambulate and his pain is under control, I do not feel he requires admission to the hospital. He will be discharged home in stable condition. Lab Data Attestation: I reviewed the patient's lab results. Lab results narrative: Hemoglobin 11.4, creatinine 5.41 Labs: Laboratory Results - last 24 hr 11/20/24 14:10 WBC 10.0 RBC 4.13 L Hgb 11.4 L Hct 37.5 L MCV 90.8 MCH 27.6 MCHC 30.4 L RDW Std Deviation 57.1 H RDW Coeff of Shanell 17.4 H Plt Count 334 MPV 9.3 Immature Gran % (Auto) 0.500 Neut % (Auto) 79.8 H Lymph % (Auto) 8.3 L [place] % (Auto) 9.5 Eos % (Auto) 1.0 Baso % (Auto) 0.9 Absolute Neuts (auto) 7.9 H Absolute Lymphs (auto) 0.83 Nucleated RBC % 0 Sodium 135 Potassium 4.8 Chloride 95 L Carbon Dioxide 22.9 Anion Gap 17 H BUN 67 H Creatinine 5.41 H Estim Creat Clear Calc 15.97 L Est GFR (MDRD) Non-Af 11 L BUN/Creatinine Ratio 12.3 Glucose 74 Calcium 9.6 Radiography Diagnostic Testing: Clinical Impression(s) from Imaging Studies Cervical Spine MRI 11/20/24 13:56 IMPRESSION: MILD CERVICAL DEGENERATIVE DISC DISEASE. NO SIGNIFICANT CENTRAL CANAL OR NEURAL FORAMINAL STENOSIS. Reading Location: [facility] Thoracic Spine MRI 11/20/24 13:56 IMPRESSION: Mild pathologic compression fracture of the T2 vertebral body with contiguous spread of tumor into the surrounding soft tissues including into the spinal canal producing mild spinal stenosis. No other metastatic lesions. Reading Location: [facility] Discharge Plan Triage Chief Complaint: Back ED Midlevel Provider: Alfreda Hogan ED Provider: Pascual Meza Dx/Rx/DC Orders Clinical Impression: Metastatic 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, CKD (chronic kidney disease) stage 4, GFR 15-29 ml/min, Closed T2 spinal fracture, Spinal cord tumor Instructions: ED Back Pain (Acute or Chronic) Prescriptions: New hydrocodone-acetaminophen 5-325 mg tablet 1 tab PO Q6H 3 Days Qty: 10 0RF No Action clonidine HCl 0.1 mg tablet 0.1 mg PO BID Theresa-Fabian 0.8 mg tablet 1 tab PO DAILY levothyroxine 125 mcg tablet 125 mcg PO DAILY glipizide 5 mg tablet 2.5 mg PO BID axitinib 5 mg tablet 5 mg PO BID aspirin [Adult Low Dose Aspirin] 81 mg tablet,delayed release (DR/EC) 81 mg PO QDAY allopurinol 100 MG tablet 100 mg PO DAILYCM Patient Comments: GOUT finasteride 5 MG tablet 5 mg PO DAILY Patient Comments: BPH ferrous sulfate 325 mg (65 mg iron) tablet 325 mg PO BID Qty: 60 0RF pantoprazole 40 mg tablet,delayed release (DR/EC) 40 mg PO DAILY Rx Instructions: take 1 tablet by mouth once daily hydrocodone-acetaminophen 5-325 mg tablet
[2024-11-20] MEDS: HYDROcodone Bitartrate/Apap 5/325 Tablet PO (20:25)
[2024-11-20 22:04] VITALS: BP 132/78; PULSE 89; RESP 16; TEMP 36.8; O2SAT 96
== END 2024-11-20 22:20 | disposition home or self-care (01) ==
PROVIDERS: Physician Assistant; Emergency Provider Emergency Medicine; PCP Family Medicine; Visit Provider Emergency Medicine
DX: M84.58XA Pathological fracture in neoplastic disease, other specified site, initial encounter for fracture (principal); C78.00 Secondary malignant neoplasm of unspecified lung; N18.4 Chronic kidney disease, stage 4 (severe); C64.9 Malignant neoplasm of unspecified kidney, except renal pelvis; I50.32 Chronic diastolic (congestive) heart failure; I13.0 Hypertensive heart and chronic kidney disease with heart failure and stage 1 through stage 4 chronic kidney disease, or unspecified chronic kidney disease; I48.0 Paroxysmal atrial fibrillation; E11.22 Type 2 diabetes mellitus with diabetic chronic kidney disease; M50.30 Other cervical disc degeneration, unspecified cervical region; D64.9 Anemia, unspecified; M51.34 Other intervertebral disc degeneration, thoracic region; I25.10 Atherosclerotic heart disease of native coronary artery without angina pectoris; K21.9 Gastro-esophageal reflux disease without esophagitis
CPT/HCPCS: 72156; 72157; 80048; 85025; 96374; 96375; 99283; A9575; A4216; J2405

== ENCOUNTER 2025-01-08 09:28 | Emergency (ER) | payer MEDICARE, SELFPAY ==
[2025-01-08] VITALS (16 sets, daily range): BP systolic 164–173; BP diastolic 78–87; PULSE 6–99; RESP 14–26; TEMP 36.4–36.7; O2SAT 93–99; BMI 34.0
--- NOTE | 2025-01-08 10:13 | ED.VIS.DYS ---
HPI History of Present Illness Chief Complaint: Shortness of Breath Narrative Narrative: Chief complaint and HPI: Shortness of breath and constipation. 68-year-old male with past medical history of DVT/PE, GERD, CAD, CHF, proximal atrial fibrillation, DM2, metastatic renal cell carcinoma on chemotherapy with recent radiation, ESRD on dialysis Wednesday/Wednesday/Wednesday presents for evaluation of shortness of breath and constipation. Patient states approximately 1 month ago he was suffering from diarrhea. Since then he states that he has been suffering from constipation all month. Taking stool softeners with minimal relief. Patient states that his hemorrhoids have been swollen all month. He denies any significant pain in the hemorrhoids. Patient states that he has some abdominal pain secondary to the constipation. Patient states for the past week he has been having increased shortness of breath and bilateral lower extremity swelling. States he woke up today too weak to use his walker. He missed dialysis but received on Wednesday. He denies any fever, chills, chest pain, nausea, vomiting, dysuria. States that he makes little urine. Review of systems: See HPI Medications: As listed on the chart Allergies: As listed on the chart PFSH: Per chart Vital signs: As listed on the chart. Reviewed. Physical exam: Gen: A&O x3 Head: Normocephalic, atraumatic Eyes: No sclera icterus, conjunctiva clear ENT: Moist mucous membranes Neck: Trachea midline, full range of motion CV: RRR, no murmurs, + 2 pitting bilateral peripheral edema from the feet to the knees Resp: Lungs diminished in the bilateral bases, no wheezing GI: Abd soft, non-distended, mildly tender to palpation diffusely, no r/r/g : No CVA tenderness Rectal: Swollen external hemorrhoids that are nontender. Normal tone and sensation. No masses, fluctuance, or tenderness. No pain out of proportion. Stool brown on gloved finger. No large stool ball encountered. Musc: Moves all extremities but very weak Skin: Warm, dry Neuro: Alert, oriented, grossly intact, sensation intact Psych: Cooperative, appropriate mood and affect [facility] Medical History Wears glasses History of Clostridium difficile infection Prostate disease Low iron History of pulmonary embolus (PE) History of DVT (deep vein thrombosis) Easy bruising Blackout Non-smoker Cancer Diabetes GERD (gastroesophageal reflux disease) Pancreatitis Coronary artery disease History of kidney cancer CKD (chronic kidney disease) stage 4, GFR 15-29 ml/min Pancreatic mass Anemia COVID-19 (07/11/21) Renal dysfunction Chronic diastolic (congestive) heart failure Deep vein thrombosis of right lower extremity (11/19/14) Paroxysmal atrial fibrillation Neoplastic (malignant) related fatigue Hypothyroidism Pneumonitis Metastatic 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 Abnormal CT of the abdomen Obesity Atrial fibrillation with rapid ventricular response (07/04/19) Bilateral pulmonary embolism (11/19/14) Type 2 diabetes mellitus Essential (primary) hypertension Gout Renal cell cancer Viral URI Encounter for education Home Medications ?Medication ?Instructions ?Recorded ?Last Taken ?Type allopurinol 100 mg tablet 100 mg PO DAILYCM gout 05/03/15 08/05/19 History finasteride 5 mg tablet 5 mg PO DAILY prostate 05/03/15 08/05/19 History clonidine HCl 0.1 mg tablet 0.1 mg PO BID blood pressure 09/25/21 02/25/22 09:30 History ferrous sulfate 325 mg (65 mg 325 mg PO BID #60 tabs 01/06/22 Unknown Rx iron) tablet pantoprazole 40 mg tablet,delayed 40 mg PO DAILY GERD 02/16/22 02/25/22 09:30 History release diltiazem HCl 120 mg See Rx Instructions .Route 11/22/23 Unknown Rx capsule,extended release 24 hr .COMPLEX #180 caps vitamin B complex-vitamin C-folic 1 tab PO DAILY 01/03/24 Unknown History acid 0.8 mg tablet (Theresa-Fabian) glipizide 5 mg tablet 5 mg PO DAILY 08/15/24 Unknown History levothyroxine 125 mcg tablet 125 mcg PO DAILY 08/15/24 Unknown History aspirin 81 mg tablet,delayed 81 mg PO QDAY 10/23/24 Unknown History release (Adult Low Dose Aspirin) axitinib 5 mg tablet 5 mg PO QDAY 11/28/24 Unknown History metoprolol tartrate 100 mg tablet 100 mg PO BID #180 tabs 12/01/24 Unknown Rx dexamethasone 4 mg tablet 2 mg PO Q12H 01/08/25 Unknown History Allergy/AdvReac Type Severity Reaction Status Date / Time Penicillins (PCN) Allergy PT UNSURE Verified 01/08/25 09:35 OF REACTION Family History Mother Diabetes Heart disease Kidney disease Hypertension CVA (cerebral vascular accident) Father Heart disease Surgical History S/P arteriovenous (AV) fistula creation (~03/2022) History of esophagogastroduodenoscopy (EGD) History of colonoscopy (2018) History of total hip arthroplasty (04/2015) History of left nephrectomy (2010) Social History housing: house Smoking Status: Never smoker second hand exposure: No alcohol intake: never substance use type: does not use caffeine: Yes frequency: does not exercise EXAM Physical Exam Const Vital Signs: 01/08/25 09:29 01/08/25 09:33 01/08/25 10:28 Temperature 97.6 F L 97.6 F L Temperature Source Oral Oral Pulse Rate 66 99 65 Respiratory Rate 26 H 26 H 15 Respiratory Effort Respiratory Depth Respiratory Pattern Blood Pressure 173/82 H 173/82 H 169/79 H Blood Pressure Mean 112 112 109 Pulse Ox 99 99 95 Oxygen Delivery Method Room Air Room Air Room Air 01/08/25 10:47 01/08/25 10:50 01/08/25 10:52 Temperature 97.6 F L Temperature Source Oral Pulse Rate 65 65 Respiratory Rate 20 H 17 Respiratory Effort Normal Respiratory Depth Normal Respiratory Pattern Normal Blood Pressure 164/81 H 164/81 H Blood Pressure Mean 108 108 Pulse Ox 96 97 Oxygen Delivery Method Room Air Room Air 01/08/25 11:00 01/08/25 12:05 01/08/25 13:00 Temperature 97.6 F L 97.5 F L 97.7 F L Temperature Source Oral Oral Oral Pulse Rate 67 70 70 Respiratory Rate 20 H 14 22 H Respiratory Effort Respiratory Depth Respiratory Pattern Blood Pressure 170/78 H 167/83 H 170/78 H Blood Pressure Mean 108 111 108 Pulse Ox 97 97 96 Oxygen Delivery Method Room Air Room Air Room Air 01/08/25 14:00 01/08/25 15:32 Temperature 97.5 F L Temperature Source Oral Pulse Rate 73 72 Respiratory Rate 21 H 16 Respiratory Effort Respiratory Depth Respiratory Pattern Blood Pressure 168/81 H 171/87 H Blood Pressure Mean 110 115 Pulse Ox 96 95 Oxygen Delivery Method Room Air Room Air MDM MDM MDM Narrative Medical decision making narrative: 68-year-old male with past medical history of DVT/PE, GERD, CAD, CHF, proximal atrial fibrillation, DM2, metastatic renal cell carcinoma on chemotherapy with recent radiation, ESRD on dialysis Wednesday/Wednesday/Wednesday presents for evaluation of shortness of breath and constipation. See physical exam findings. On presentation, patient is no acute distress however he is hypertensive. I suspect some of his hypertension is secondary to his missed dialysis. Differential diagnosis includes but is not limited to constipation, GI bleed, electrolyte abnormality, YONY, CHF exacerbation, worsening metastatic disease, PE, pneumonia, UTI. Patient states he is on a blood thinner although I do not have it listed in his chart. Will be judicial with fluids as patient is fluid overloaded on exam and missed dialysis. Broad laboratory workup ordered including CTA chest to assess for PE given his high risk of PE given cancer as well as CT abdomen pelvis. Patient will need dialysis in 24 hours given that I did give contrast. EKG reviewed see below. CBC with mild leukocytosis of 12.6. Patient has baseline anemia with a hemoglobin of 10.1. New thrombocytosis of 149. Coagulation panel unremarkable. CMP consistent with dehydration and baseline ESRD. BUN 87. Creatinine 4.92. Patient did not receive dialysis today. No transaminitis. Lipase unremarkable. Lactic acid originally 2.3. Now normalized at 2. I did not give fluids given overload. Troponin 80 and 72. Patient not having any chest pain. Patient's elevated troponin may be secondary to ESRD however cannot fully rule out NSTEMI. UA was obtained via straight cath. Positive for blood. Patient states is not abnormal for him to have blood with his recent cancer. Negative for ketones. He has mild leuk esterase without nitrates. He has 5-10 WBCs and +1 bacteria. Possible UTI. Will send for urine culture. Will give Rocephin. Patient has an allergy to penicillin although he states he thinks it was just a rash. Will give Rocephin. CT of the chest is negative for PE. Patient has multiple pulmonary nodules. He has known metastatic disease to his lungs. Stable multilobulated masses in the right kidney as well as masses seen in the pancreas. He does have a minimal right pleural effusion. CT of the abdomen pelvis shows right renal cell carcinoma strongly suspected volume up to the solid portion of the right kidney. Additional large cystic lesions. Tumor thrombus suspected in the right renal vein and IVC. Status post left nephrectomy for renal cell carcinoma. Numerous pulmonary nodules we identified. Pancreatic cystic lesion seems pseudocyst or sequelae of pancreatitis. Correlate with lipase. Lipase unremarkable. Normal appearance of the large intestines and not compatible with constipation. Patient's abdominal pain may be secondary to this tumor thrombus in the renal vein and IVC. His COVID, flu, RSV negative. He does have occult positive stool. I do not have vascular surgery on-call for the thrombus. I did call the patient's urologist here Dr. Rushing. He recommends transfer to [facility]. I did inform the patient of the results as well as the plan. He confirmed understanding. We had a delay in disposition with the transfer as paged physician took a while to call back. We did call the transfer line to have this expedited. I spoke with the oncologist Dr. Cuellar who accepted admission. Plan originally was for direct admit but given there is limited availability and hospital beds as well as patient's need for dialysis in the next 24 hours, patient will be an ED transfer. Plan is to hold off on heparin at this time for the thrombus as patient is on anticoagulation. I updated the patient of the plan and he confirmed understanding. I was updated that the patient is not actually on anticoagulation which originally he stated he was. Will reach back out to transfer physician to see if heparin should be started now that patient is not on anticoagulation however he does have an occult GI bleed. EKG: Interpreted by me/EM physician: EKG shows normal sinus rhythm with nonspecific ST changes. Heart rate 66. Impression: 1. Metastatic right renal cell carcinoma with new tumor thrombus suspected in the right renal vein and IVC 2. Fluid overload with small pleural effusion 3. History of ESRD with missed dialysis today 3. Possible UTI with gross hematuria 4. Pancytopenia 5. Elevated troponin 6. Chronic anemia 7. Occult GI bleed Lab Data Labs: Laboratory Results - last 24 hr 01/08/25 01/08/25 01/08/25 09:40 11:03 11:25 WBC 12.6 H RBC 3.40 L Hgb 10.1 L Hct 32.0 L MCV 94.1 H MCH 29.7 MCHC 31.6 L RDW Std Deviation 65.0 H RDW Coeff of Shanell 18.9 H Plt Count 149 L MPV 10.4 Neut % (Auto) Not Reportable Absolute Neuts (auto) 10.9 H Absolute Lymphs (auto) 0.50 L Total Counted 100 Neutrophils % (Manual) 84 H Band Neutrophils % 3 Lymphocytes % (Manual) 4 L Monocytes % (Manual) 5 Metamyelocytes % 2 H Myelocytes % 1 H Promyelocytes % 1 H Diff Path Review May foll Platelet Estimate SLT DEC RBC Morphology NORM C+C PT 13.6 INR 1.0 APTT 25.6 Sodium 139 Potassium 4.7 Chloride 95 L Carbon Dioxide 23.0 Anion Gap 21 H BUN 87 H Creatinine 4.92 H Estim Creat Clear Calc 17.67 L Est GFR (MDRD) Non-Af 12 L BUN/Creatinine Ratio 17.8 Glucose 162 H Lactic Acid 2.3 H* Calcium 8.6 Total Bilirubin 0.55 AST 25 ALT 29 Alkaline Phosphatase 67 Troponin T High Sens 80 H* D Troponin T Hi Sens 2 Hr Total Protein 6.1 Albumin 3.3 L Globulin 2.8 Albumin/Globulin Ratio 1.2 Lipase 28 Urine Color Red Urine Clarity Cloudy Urine pH 7.0 Ur Specific Andrews 1.010 Urine Protein 500 H Urine Glucose (UA) 100 H Urine Ketones Negative Urine Occult Blood 250 H Urine Nitrite Negative Urine Bilirubin Negative Urine Urobilinogen Normal Ur Leukocyte Esterase 25 H Urine RBC > 100 SEEN Urine WBC 5-10 SEEN Ur Squamous Epith Cells 0 SEEN Urine Bacteria 1+ Urine Mucus 0 SEEN 01/08/25 01/08/25 13:24 15:20 WBC RBC Hgb Hct MCV MCH MCHC RDW Std Deviation RDW Coeff of Shanell Plt Count MPV Neut % (Auto) Absolute Neuts (auto) Absolute Lymphs (auto) Total Counted Neutrophils % (Manual) Band Neutrophils % Lymphocytes % (Manual) Monocytes % (Manual) Metamyelocytes % Myelocytes % Promyelocytes % Diff Path Review Platelet Estimate RBC Morphology PT INR APTT Sodium Potassium Chloride Carbon Dioxide Anion Gap BUN Creatinine Estim Creat Clear Calc Est GFR (MDRD) Non-Af BUN/Creatinine Ratio Glucose Lactic Acid 2.0 Calcium Total Bilirubin AST ALT Alkaline Phosphatase Troponin T High Sens Troponin T Hi Sens 2 Hr 72 H* Total Protein Albumin Globulin Albumin/Globulin Ratio Lipase Urine Color Urine Clarity Urine pH Ur Specific Andrews Urine Protein Urine Glucose (UA) Urine Ketones Urine Occult Blood Urine Nitrite Urine Bilirubin Urine Urobilinogen Ur Leukocyte Esterase Urine RBC Urine WBC Ur Squamous Epith Cells Urine Bacteria Urine Mucus Radiography Diagnostic Testing: Clinical Impression(s) from Imaging Studies Abdomen/Pelvis CT 01/08/25 10:14 IMPRESSION: Right renal cell carcinoma strongly suspected involving much of the solid portion of the right kidney. Additional large cystic lesions are identified. Tumor thrombus suspected in the right renal vein and IVC Status post left nephrectomy for renal cell carcinoma. Numerous pulmonary nodules re-identified, suspect for pulmonary metastatic disease. Pancreatic cystic lesions, assumed pseudocysts from sequela of pancreatitis. Correlate with medical history. Normal appearance of large intestine is not compatible with diagnosis of constipation. Reading Location: [facility] Chest CTA 01/08/25 10:18 IMPRESSION: No evidence of pulmonary embolism. Multiple pulmonary nodules. Stable multi lobulated masses in the right kidney as well as masses seen in the pancreas. Reading [facility] Dis[facility] Plan Triage Chief Complaint: Shortness of Breath ED Provider: Marciano Haile Dx/Rx/DC Orders Prescriptions: No Action clonidine HCl 0.1 mg tablet 0.1 mg PO BID Theresa-Fabian 0.8 mg tablet 1 tab PO DAILY levothyroxine 125 mcg tablet 125 mcg PO DAILY glipizide 5 mg tablet 5 mg PO DAILY aspirin [Adult Low Dose Aspirin] 81 mg tablet,delayed release (DR/EC) 81 mg PO QDAY allopurinol 100 MG tablet 100 mg PO DAILYCM Patient Comments: GOUT finasteride 5 MG tablet 5 mg PO DAILY Patient Comments: BPH ferrous sulfate 325 mg (65 mg iron) tablet 325 mg PO BID Qty: 60 0RF pantoprazole 40 mg tablet,delayed release (DR/EC) 40 mg PO DAILY Rx Instructions: take 1 tablet by mouth once daily dexamethasone 4 mg tablet 2 mg PO Q12H diltiazem HCl 120 mg capsule,extended release 24hr See Rx Instructions .ROUTE .COMPLEX Qty: 180 4RF Dose Instruction: take 1 capsule by mouth twice a day Rx Instructions: take 1 capsule by mouth twice a day axitinib 5 mg tablet 5 mg PO QDAY metoprolol tartrate 100 mg tablet 100 mg PO BID Qty: 180 3RF Primary Care Provider: Houston Olson Referrals: Houston Olson, DO [Primary Care Provider] - Print Language: [place]an
--- NOTE | 2025-01-08 10:14 | EKG12_ITS ---
Test Reason : SOB Blood Pressure : */* mmHG Vent. Rate : 66 BPM Atrial Rate : 66 BPM P-R Int : 154 ms QRS Dur : 104 ms QT Int : 432 ms P-R-T Axes : 41 6 119 degrees QTcB Int : 452 ms Normal sinus rhythm Nonspecific ST and T wave abnormality Abnormal ECG Confirmed by ZARA BUSBY, GREG ([id number]), editor managing director CIRILO SIDHU ([id number]) on 01/09/2025 10:49:13 AM Referred By: MARITZA/YVETTE Confirmed By: GREG ZUÑIGA MD
--- NOTE | 2025-01-08 10:14 | CT_ITS ---
PROCEDURE: ABDOMEN/PELVIS W IV CONT ONLY 01/08/2025 REASON FOR EXAM: CONSTIPATION TECHNIQUE: ABDOMEN/PELVIS W IV CONT ONLY. Coronal and Sagittal reconstruction series were provided. ORAL CONTRAST TYPE: None AMOUNT: mL CONTRAST: Isovue 370 VOLUME: 75 mL One or more dose reduction techniques were used (e.g., Automated exposure control, adjustment of the mA and/or kV according to patient size, use of iterative reconstruction technique. RADIATION DOSE SUMMARY: CTDlvol: 22.42 mGy DLP: 1245.79 mGycm COMPARISON: CT chest abdomen pelvis without contrast September 14, 2022 FINDINGS: Lung bases: Numerous small nodules in the lung bases. Small but suspicious. Liver: Unremarkable. Gallbladder: Normal. Not seen well Spleen: Unremarkable Pancreas: Abnormally small. 3.1 cm cystic lesion near the proximal body and 2.1 cm cystic lesion in the tail. High among the differential diagnostic considerations would be pancreatic pseudocysts from remote pancreatitis. Smaller compared to prior exam. Adrenals: Unremarkable. Kidneys: Status post left nephrectomy for renal cell carcinoma. Right kidney demonstrates hypoenhancing mass measuring 10 cm in a setting of multi cystic renal disease. Favor that this is a primary right renal cell carcinoma. Tumor thrombus is suspected in the renal vein and IVC Bladder: Nondistended and difficult to evaluate Reproductive Organs: Not well visualized. Bowel: Grossly unremarkable large intestine. No evidence of constipation. Appendix: Normal. Lymph nodes: No enlarged lymph nodes identified. Vasculature: Tumor thrombus suspected in right renal vein and IVC. Peritoneum / Retroperitoneum: No free air or free fluid. Bones: No lytic or aggressive bone marrow lesions. CT/Abdomen/Pelvis W IV Cont ONLY IMPRESSION: Right renal cell carcinoma strongly suspected involving much of the solid porti on of the right kidney. Additional large cystic lesions are identified. Tumor thrombus suspected in the right renal vein and IVC Status post left nephrectomy for renal cell carcinoma. Numerous pulmonary nodules re-identified, suspect for pulmonary metastatic dise ase. Pancreatic cystic lesions, assumed pseudocysts from sequela of pancreatitis. C orrelate with medical history. Normal appearance of large intestine is not compatible with diagnosis of consti pation. Reading Location: [facility]
--- NOTE | 2025-01-08 10:18 | CT_ITS ---
PROCEDURE: CTA CHEST W/WO CONTRAST 01/08/2025 REASON FOR EXAM: SOB, CA, HX OF PE History of metastatic renal carcinoma. Patient is on renal dialysis. TECHNIQUE: CTA CHEST W/WO CONTRAST multiplanar and multisequence images were obtained. One or more dose reduction techniques were used (e.g., Automated exposure control, adjustment of the mA and/or kV according to patient size, use of iterative reconstruction technique). CONTRAST: Isovue 370 VOLUME: 100 mL RADIATION DOSE SUMMARY: CTDlvol: 22 mGy DLP: 1878.14 mGycm COMPARISON: Prior study dated November 09, 2024. FINDINGS: Hardware: None Lymph nodes: Stable small mediastinal lymph nodes. Heart: Coronary artery calcifications are noted. Thoracic Aorta: No thoracic aortic aneurysm or dissection. Pulmonary Vessels: No pulmonary embolism is seen. Lungs and Airways: Bilateral pulmonary nodules in keeping with metastatic deposits. No focal consolidation is seen. Pleura: Minimal right pleural effusion. Upper Abdomen: Stable multilobulated mass seen in the right kidney. Stable pancreatic masses. Bones: Bone windows are unremarkable. CT/CTA Chest W/WO Contrast IMPRESSION: No evidence of pulmonary embolism. Multiple pulmonary nodules. Stable multi lobulated masses in the right kidney as well as masses seen in the pancreas. Reading Location: [place] [id number]
[2025-01-08 11:11] LABS: Hemoglobin 10.1 g/dL (13.0-16.5); Mean Corp Hgb Conc 31.6 g/dL (32-36); Mean Corpuscular Hgb 29.7 pg (27.0-32.0); Mean Corpuscular Volume 94.1 fL (80-94); Mean Platelet Vol. 10.4 fl (6.2-12.0); POSITIVE COUNT YES; POSITIVE DIFFERENTIAL YES; POSITIVE MORPHOLOGY YES; Platelet Count 149 K/mm3 (150-450); RBC Distribution Width CV 18.9 % (11.6-14.6); White Blood Count 12.6 K/mm3 (4.4-11.0)
[2025-01-08 11:17] LABS: Differential Indicated MANUAL DIFF
[2025-01-08 11:26] LABS: ALB/GLOB Ratio 1.2 RATIO (0.9-2.4); AST(SGOT) 25 U/L (<=37); Alanine Aminotransfer ALT/SGPT 29 U/L (<=46); Albumin, Serum 3.3 g/dL (3.4-4.8); Alkaline Phosphatase 67 U/L (40-129); Anion Gap 21 (5-15); BUN 87 mg/dL (4-19); BUN/Creat Ratio 17.8 RATIO (10-20); Calcium,Total 8.6 mg/dL (7.6-11.0); Chloride 95 mmol/L (98-108); Creatinine, Serum 4.92 mg/dL (0.70-1.20); EST Glomerular Filtration Rate 12 (>60); Estimated Creatinine Clearance 17.67 ml/min (50-250); Globulin 2.8 g/dL (2.2-4.2); Glucose 162 mg/dL (70-99); Lipase 28 U/L (13-75); Potassium 4.7 mmol/L (3.3-5.1); Protein, Total 6.1 g/dL (5.9-8.4); Sodium Level 139 mmol/L (133-145); Total Bilirubin 0.55 mg/dL (0.00-1.30)
[2025-01-08 11:27] LABS: Prothrombin Time (Protime)PT. 13.6 SECONDS (11.7-14.9)
[2025-01-08 11:28] LABS: Partial Thromboplast Time 25.6 Seconds (24.1-36.2)
[2025-01-08 11:33] LABS: Mucous, Urine 0 SEEN /hpf (<or=2+); Squamous Epithelial Cells - UA 0 SEEN /hpf (0-5)
[2025-01-08 11:48] LABS: Lymphocyte 4 % (19-41); Metamyelocyte 2 % (0-1); Monocyte 5 % (0-10); Myelocyte 1 % (0-0); Neutrophil-Band 3 % (0-5); Neutrophil-Segmented 84 % (47-70); Promyelocyte 1 % (0-0); Red Cell Morphology NORM C+C NORMAL (NORM C&C); Total Cells Counted 100 (MANUAL DIFF)
[2025-01-08 11:49] LABS: Platelet Estimate SLT DEC (ADEQ)
[2025-01-08 11:50] LABS: Absolute Neutrophil Count 10.9 X10^3/uL (2.0-7.7); Troponin T High Sensitivity 80 ng/L (<=22)
[2025-01-08 11:51] LABS: Color, Urine Red (Yellow); Glucose, Dipstick 100 mg/dl (Normal); Ketone-Dipstick Negative (Negative); Leukocyte Esterase-Dipstick 25 /ul (Negative); Nitrite-Dipstick Negative (Negative); Occult Blood-Urine 250 /ul (Negative); Protein-Dipstick 500 mg/dl (Negative); Urine Bilirubin Dipstick Negative (Negative); Urine Clarity Cloudy (Clear); Urine Urobilinogen Normal (Normal)
[2025-01-08 11:51] LABS: Pathologist Review May foll
[2025-01-08 11:57] LABS: Lactic Acid 2.3 mmol/L (0.0-2.0)
[2025-01-08 11:58] LABS: Red Blood Cells-Urine > 100 SEEN /hpf (0-5)
[2025-01-08 11:59] LABS: Bacteria 1+ /hpf (None Seen); White Blood Cells 5-10 SEEN /hpf (0-5)
--- NOTE | 2025-01-08 12:14 | ED.RN ---
Dr. Toribio notified of Sepsis Alert, no cultures ordered at this time
[2025-01-08 13:54] LABS: Troponin T High Sens 2 HR 72 ng/L (<=22)
--- NOTE | 2025-01-08 13:55 | ED.RN ---
Critical troponin of [address] Toribio notified
[2025-01-08 15:06] LABS: Reflex Lactate? Y
[2025-01-08] MEDS: Ceftriaxone 1 GM/50 ML BAG IV (16:54)
--- NOTE | 2025-01-08 17:33 | ED.RN ---
Report called to Daniel at [facility]. Transport to be here at 6-7pm
== END 2025-01-08 19:46 | disposition short-term general hospital (02) ==
LOC: ED 10:23
PROVIDERS: Emergency Provider Surgery; PCP Family Medicine; Visit Provider Surgery
DX: R06.02 Shortness of breath (principal); I13.2 Hypertensive heart and chronic kidney disease with heart failure and with stage 5 chronic kidney disease, or end stage renal disease; D61.818 Other pancytopenia; N18.6 End stage renal disease; C64.1 Malignant neoplasm of right kidney, except renal pelvis; I50.32 Chronic diastolic (congestive) heart failure; I48.0 Paroxysmal atrial fibrillation; E11.22 Type 2 diabetes mellitus with diabetic chronic kidney disease; K92.2 Gastrointestinal hemorrhage, unspecified; N28.89 Other specified disorders of kidney and ureter; I25.10 Atherosclerotic heart disease of native coronary artery without angina pectoris; R10.9 Unspecified abdominal pain; K86.89 Other specified diseases of pancreas; Z86.718 Personal history of other venous thrombosis and embolism; Z99.2 Dependence on renal dialysis; Z90.5 Acquired absence of kidney; K21.9 Gastro-esophageal reflux disease without esophagitis; J90 Pleural effusion, not elsewhere classified; R31.0 Gross hematuria
CPT/HCPCS: 71275; 74177; 80053; 81001; 82274; 83605; 83690; 84484; 85025; 85610; 85730; 87086; 87631; 93005; 96365; 96366; 99285; P9612; Q9967; A4216

== ENCOUNTER 2025-01-15 19:09 | Inpatient (IN) | payer MEDICARE, SELFPAY ==
[2025-01-15] VITALS (7 sets, daily range): BP systolic 137–170; BP diastolic 71–92; PULSE 71–97; RESP 14–20; TEMP 36.6; O2SAT 93–98; BMI 33.1
--- NOTE | 2025-01-15 20:26 | EKG12_ITS ---
Test Reason : cp Blood Pressure : */* mmHG Vent. Rate : 74 BPM Atrial Rate : 74 BPM P-R Int : 158 ms QRS Dur : 108 ms QT Int : 414 ms P-R-T Axes : 50 0 138 degrees QTcB Int : 459 ms Normal sinus rhythm Minimal voltage criteria for LVH, may be normal variant ( [place] product ) ST & T wave abnormality, consider lateral ischemia Abnormal ECG When compared with ECG of 15-Jan-2025 19:11, MANUAL COMPARISON REQUIRED DATA IS UNCONFIRMED Confirmed by ZARA BUSBY, GREG ([id number]), graphics editor CIRILO SIDHU ([id number]) on 01/16/2025 10:56:51 AM Referred By: Confirmed By: GREG ZUÑIGA MD
--- NOTE | 2025-01-15 20:27 | EDS_ITS ---
HPI History of Present Illness Chief Complaint: Chest Pain Narrative Narrative: 69-year-old male multiple medical problems including metastatic 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, CHF, end-stage renal disease on dialysis Wednesday, presents with chest pain and back pain. He states that he recently had radiation therapy to a T2 vertebral fracture secondary to cancer. He began having back pain and spasming which she has had in the past. This evening around 5 or 6 PM approximately 3-1/2 hours ago, he started having chest pain in the front, and numbness and tingling of his left arm/left arm pain. He denies any nausea or vomiting, no shortness of breath. He completed dialysis today. His family relates history that he used to be on Eliquis, but he was having hematuria so that was stopped. Additionally, he was diagnosed with a blood clot in his rectum, and released from [facility] on , approximately 4 days ago. Pain was described as stabbing. No exacerbating alleviating terms. [facility] Medical History Wears glasses History of Clostridium difficile infection Prostate disease Low iron History of pulmonary embolus (PE) History of DVT (deep vein thrombosis) Easy bruising Blackout Non-smoker Cancer Diabetes GERD (gastroesophageal reflux disease) Pancreatitis Coronary artery disease History of kidney cancer CKD (chronic kidney disease) stage 4, GFR 15-29 ml/min Pancreatic mass Anemia COVID-19 (07/11/21) Renal dysfunction Chronic diastolic (congestive) heart failure Deep vein thrombosis of right lower extremity (11/19/14) Paroxysmal atrial fibrillation Neoplastic (malignant) related fatigue Hypothyroidism Pneumonitis Metastatic 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 Abnormal CT of the abdomen Obesity Atrial fibrillation with rapid ventricular response (07/04/19) Bilateral pulmonary embolism (11/19/14) Type 2 diabetes mellitus Essential (primary) hypertension Gout Renal cell cancer Viral URI Encounter for education Home Medications ?Medication ?Instructions ?Recorded ?Last Taken ?Type allopurinol 100 mg tablet 100 mg PO DAILYCM gout 05/0308/05/19 History finasteride 5 mg tablet 5 mg PO DAILY prostate 05/0308/05/19 History clonidine HCl 0.1 mg tablet 0.1 mg PO BID blood pressu re 09/25/21 02/25/22 09:30 History ferrous sulfate 325 mg (65 mg 325 mg PO BID #60 tabs 0 01/06/22 Unknown Rx iron) tablet pantoprazole 40 mg tablet,delayed 40 mg PO DAILY GERD 02/16/22 02/25/22 09:30 History release diltiazem HCl 120 mg See Rx Instructions .Route 0 11/22/23 Unknown Rx capsule,extended release 24 hr .COMPLEX #180 caps vitamin B complex-vitamin C-folic 1 tab PO DAILY 01/02 Unknown History acid 0.8 mg tablet (Theresa-Fabian) glipizide 5 mg tablet 5 mg PO DAILY 08/15/24 Unkno wn History levothyroxine 125 mcg tablet 125 mcg PO DAILY 08/15/24 Unknown History aspirin 81 mg tablet,delayed 81 mg PO QDAY 10/23/24 Un known History release (Adult Low Dose Aspirin) axitinib 5 mg tablet 5 mg PO QDAY 11/28/24 Unknow n History metoprolol tartrate 100 mg tablet 100 mg PO BID #180 t abs 12/01/24 Unknown Rx dexamethasone 4 mg tablet 2 mg PO Q12H 01/08/25 Unknow n History hydrocodone-acetaminophen 5-325mg 1 tab PO Q6H PRN antony n 01/15/25 Unknown History 5mg-325mg Allergy/AdvReac Type Severity Reaction Status Date / Time Penicillins (PCN) Allergy PT UNSURE Verified 01/15/25 19:14 OF REACTION Family History Mother Diabetes Heart disease Kidney disease Hypertension CVA (cerebral vascular accident) Father Heart disease Surgical History S/P arteriovenous (AV) fistula creation (~03/2022) History of esophagogastroduodenoscopy (EGD) History of colonoscopy (2018) History of total hip arthroplasty (04/2015) History of left nephrectomy (2010) Social History housing: house Smoking Status: Never smoker second hand exposure: No alcohol intake: never substance use type: does not use caffeine: Yes frequency: does not exercise ROS ROS ED ROS Narrative Review of systems positive for back pain and spasming of upper back and area of previous radiation treatment and vertebral fracture. No fevers or chills, no nausea or vomiting, no shortness of breath. Positive anterior chest pain as well as left arm pain and numbness. No diaphoresis. EXAM Physical Exam Narrative Exam Narrative: Afebrile. Vital signs noted. Nontoxic-appearing. Cardiovascular examination regular rate and rhythm. Lungs are clear to auscultation bilaterally. Abdomen is soft and nontender without guarding or rebound. Positive bowel sounds. Neurological examination nonfocal, nonlateralizing. Const Vital Signs: 01/15/25 19:09 01/15/25 19:09 01/15/25 19:12 Temperature 97.8 F Temperature Source Oral Pulse Rate 84 97 Respiratory Rate 17 20 H Respiratory Effort Normal Non-Labored Respiratory Pattern Normal Blood Pressure 137/75 H 137/75 H Blood Pressure Mean 95 95 Pulse Ox 97 98 Oxygen Delivery Method Room Air Room Air 01/15/25 20:00 01/15/25 20:26 01/15/25 21:00 Temperature Temperature Source Pulse Rate 82 74 Respiratory Rate 18 18 Respiratory Effort Respiratory Pattern Blood Pressure 140/92 H 156/80 H Blood Pressure Mean 108 105 Pulse Ox 94 94 93 Oxygen Delivery Method Room Air Room Air 01/15/25 22:00 01/15/25 22:46 Temperature 97.8 F Temperature Source Pulse Rate 75 71 Respiratory Rate 14 20 H Respiratory Effort Respiratory Pattern Blood Pressure 157/73 H 170/79 H Blood Pressure Mean 101 109 Pulse Ox 94 98 Oxygen Delivery Method Room Air MDM MDM MDM Narrative Medical decision making narrative: The differential diagnosis includes but not limited to radicular pain from T2 vertebral fracture versus ACS versus non-STEMI. I have low suspicion for pulmonary embolism. This is secondary to history and physical not supporting this. Additionally, he is not tachycardic, nor is he currently hypoxic. EKG was obtained and interpreted by myself independently as A-fib at [address] changes. No STEMI. He does have ST depression laterally. However when compared to prior EKGs, he does have some degree of ST depression laterally as well so no significant change from previous. While I will get a series of troponins, they may be elevated secondary to chronic kidney disease/end-stage renal disease. I reviewed his laboratory work and WBC count of 10.0 with hemoglobin low at 7.8. On the , approximately 1 week ago he was 10.1. I reviewed the ED note and he did have Hemoccult positive stool according to Dr. Toribio. The patient states that this was not addressed while he was at [facility]. He states that he has been having hematuria, but they did not start him on any blood thinners for his IVC and renal vein thrombus. Review of his prior labs show his troponin was elevated at 80 as well at that time. Patient states that he took himself off Eliquis few months ago. His BMP is consistent with his end-stage renal disease, chloride low at 92 but normal sodium of 135, BUN of 23 and creatinine 2.53. Glucose is elevated to 59 with slightly elevated anion gap of 17. I doubt diabetic ketoacidosis. High- sensitivity troponin is elevated at 102 with high-sensitivity troponin at 2 hours being 100 for more of a flat biomarker. He was experiencing back pain again so he was administered morphine and ondansetron. I am reluctant to give him heparin given his occult GI bleeding, and hematuria as well. I will discuss the patient with Dr. Loja. Regardless, given his anemia, given his history of CHF, he may require transfusion. I discussed the patient with cardiology, and they do not suggest heparinization, but rather to treat any chest pain with nitroglycerin and be admitted for observation. I discussed patient with Dr. Shaw for admission to the PCU. Disposition is admit in stable condition. History & Record Review Discussion w/independent historian: Patient Additional record(s) reviewed:: Prior ED visit and Prior labs Lab Data Attestation: I reviewed the patient's lab results. Labs: Laboratory Results - last 24 hr 01/15/25 01/15/25 19:45 22:00 WBC 10.0 RBC 2.60 L Hgb 7.8 L Hct 24.9 L MCV 95.8 H MCH 30.0 MCHC 31.3 L RDW Std Deviation 67.0 H RDW Coeff of Shanell 19.1 H Plt Count 116 L MPV 9.8 Immature Gran % (Auto) 3.100 H Neut % (Auto) 91.2 H Lymph % (Auto) 2.6 L [place] % (Auto) 3.0 Eos % (Auto) 0.0 Baso % (Auto) 0.1 Absolute Neuts (auto) 9.1 H Absolute Lymphs (auto) 0.26 L Nucleated RBC % 0.5 Differential Comment SCANNED Anisocytosis RARE Sodium 135 Potassium 3.9 Chloride 92 L Carbon Dioxide 26.1 Anion Gap 17 H BUN 23 H Creatinine 2.53 H Estim Creat Clear Calc 33.95 L Est GFR (MDRD) Non-Af 27 L BUN/Creatinine Ratio 8.9 L Glucose 259 H Calcium 7.9 Troponin T High Sens 102 H* D Troponin T Hi Sens 2 Hr 100 H* Radiography Chest X-Ray - ED: 1 View, Read by ED Physician, Read by Radiologist and CHF (Mild pulmonary vascular congestion) Diagnostic Testing: Clinical Impression(s) from Imaging Studies Chest X-Ray 01/15/25 20:35 IMPRESSION: No large focal consolidations. Bibasilar subsegmental atelectasis. Mild pulmonary vascular congestion. Reading Location: [facility] Discharge Plan Triage Chief Complaint: Chest Pain ED Provider: Carter Davis Dx/Rx/DC Orders Prescriptions: No Action clonidine HCl 0.1 mg tablet 0.1 mg PO BID Theresa-Fabian 0.8 mg tablet 1 tab PO DAILY levothyroxine 125 mcg tablet 125 mcg PO DAILY glipizide 5 mg tablet 5 mg PO DAILY aspirin [Adult Low Dose Aspirin] 81 mg tablet,delayed release (DR/EC) 81 mg PO QDAY allopurinol 100 MG tablet 100 mg PO DAILYCM Patient Comments: GOUT finasteride 5 MG tablet 5 mg PO DAILY Patient Comments: BPH ferrous sulfate 325 mg (65 mg iron) tablet 325 mg PO BID Qty: 60 0RF pantoprazole 40 mg tablet,delayed release (DR/EC) 40 mg PO DAILY Rx Instructions: take 1 tablet by mouth once daily dexamethasone 4 mg tablet 2 mg PO Q12H hydrocodone-acetaminophen 5-325 mg tablet 1 tab PO Q6H PRN (Reason: pain) diltiazem HCl 120 mg capsule,extended release 24hr See Rx Instructions .ROUTE .COMPLEX Qty: 180 4RF Dose Instruction: take 1 capsule by mouth twice a day Rx Instructions: take 1 capsule by mouth twice a day axitinib 5 mg tablet 5 mg PO QDAY metoprolol tartrate 100 mg tablet 100 mg PO BID Qty: 180 3RF Primary Care Provider: Houston Olson Referrals: Houston Olson, [Primary Care Provider] - Print Language: Vietnamese
--- NOTE | 2025-01-15 20:35 | RAD_ITS ---
PROCEDURE: CHEST 1 VIEW (PORTABLE) 01/15/2025 REASON FOR EXAM: CHEST PAIN TECHNIQUE: Frontal view of the chest. COMPARISON: CT from 01/08/2025 FINDINGS: No large focal consolidations. Bibasilar subsegmental atelectasis. Mild pulmonary vascular congestion. No pleural effusion or pneumothorax. Stable mild cardiomegaly. RAD/Chest 1 View (Portable) IMPRESSION: No large focal consolidations. Bibasilar subsegmental atelectasis. Mild pulmon kevin vascular congestion. Reading Location: [id number]
[2025-01-15 20:47] LABS: Absolute Lymphocyte Count 0.26 X10^3/uL (0.83-4.51); Absolute Neutrophil Count 9.1 X10^3/uL (2.0-7.7); Basophil# 0.01 X10^3/uL; Basophil% 0.1 % (0-1); Hematocrit 24.9 % (40-54); Hemoglobin 7.8 g/dL (13.0-16.5); Lymphocyte # 0.26 X10^3/ul (0.83-4.51); Lymphocyte % 2.6 % (19-41); Mean Corp Hgb Conc 31.3 g/dL (32-36); Mean Corpuscular Volume 95.8 fL (80-94); Mean Platelet Vol. 9.8 fl (6.2-12.0); NRBC Flagged by Analyzer 0.5 % (0-5); Neutrophil # 9.08 X10^3/uL (2.7-7.7); Neutrophil % 91.2 % (47-70); POSITIVE DIFFERENTIAL YES; POSITIVE MORPHOLOGY YES; Platelet Count 116 K/mm3 (150-450); RBC Distribution Width CV 19.1 % (11.6-14.6)
[2025-01-15 21:09] LABS: Differential Indicated SCAN CRITERIA MET
[2025-01-15 21:12] LABS: Anion Gap 17 (5-15); BUN 23 mg/dL (4-19); BUN/Creat Ratio 8.9 RATIO (10-20); Calcium,Total 7.9 mg/dL (7.6-11.0); Carbon Dioxide 26.1 mmol/L (21.0-32.0); Chloride 92 mmol/L (98-108); Creatinine, Serum 2.53 mg/dL (0.70-1.20); EST Glomerular Filtration Rate 27 (>60); Estimated Creatinine Clearance 33.95 ml/min (50-250); Glucose 259 mg/dL (70-99); Potassium 3.9 mmol/L (3.3-5.1); Sodium Level 135 mmol/L (133-145)
[2025-01-15 21:25] LABS: Troponin T High Sensitivity 102 ng/L (<=22)
[2025-01-15 21:55] LABS: Anisocytosis RARE; Differential Comment SCANNED
[2025-01-15 22:39] LABS: Troponin T High Sens 2 HR 100 ng/L (<=22)
[2025-01-15] MEDS: Ondansetron 4 MG/2 ML Vial IV (22:51)
[2025-01-15] MEDS: Morphine 4 MG/ML Syringe IV (22:51)
--- NOTE | 2025-01-15 22:59 | HP.PCM.HOS_ITS ---
[facility] - General General Date of Admission: 01/15/25 Date of Service: 01/15/25 Chief Complaint: Chest Pain and Back Pain. [facility] Narrative KRISSY SAAVEDRA, is a 69 M with a past medical history of essential hypertension; on metoprolol, diltiazem and clonidine BID, hypothyroidism; on levothyroxine, obesity; with BMI of 33.2 this admission, history of Left nephrectomy (2010), ESRD on HD; (M-W-F) with AV-fistula (2021), history of renal vein thrombus, DM- 2; of unknown control on glipizide, chronic diastolic CHF; with preserved LVEF, history of PAF; not on anticoagulation due to hematuria, history of DVT/PE (); s/p IVC, YARA; on ferrous sulfate BID, BPH; on finasteride, history of COVID-19 (2020), history of clostridium difficile infection, GERD; on pantoprazole, gout; on allopurinol, OA; s/p Left THR and history of Renal Cell Carcinoma with metastases to lung and spine; on axitinib with recent radiation treatment to T2 vertebrae due to pathologic fracture attributed to metastasis with recent admission to [facility] for treatment of a blood clot in his rectum with patient discharged ~4 days ago who presents to [facility] ER complaining of chest pain and back pain. Mr. Saavedra reports his symptoms began approximately 5:00 PM this evening when he began having severe back pain with spasms - that were similar to his previous symptoms - but the he also developed chest pain that was anterior and stabbing with numbness and tingling down his Left arm with nothing seeming to make the pain better or worse so he decided to come in for further evaluation and treatment. There were no reports of fever, chills, nausea, vomiting, diarrhea, constipation, diaphoresis, palpitations, heart racing, headache or rash. In the ER he was noted to have an elevated initial troponin T of 102 ng/L with a hemoglobin of 7.8 g/dL present on admission with mexican food maker on-call contacted by the ER physician who did not recommend heparinization at this time due to his history of bleeding and he was then admitted to the PCU for ongoing care for a stay that is expected to extend beyond 2 midnights. [facility] Medical History Wears glasses History of Clostridium difficile infection Prostate disease Low iron History of pulmonary embolus (PE) History of DVT (deep vein thrombosis) Easy bruising Blackout Non-smoker Cancer Diabetes GERD (gastroesophageal reflux disease) Pancreatitis Coronary artery disease History of kidney cancer CKD (chronic kidney disease) stage 4, GFR 15-29 ml/min Pancreatic mass Anemia COVID-19 (07/11/21) Renal dysfunction Chronic diastolic (congestive) heart failure Deep vein thrombosis of right lower extremity (11/19/14) Paroxysmal atrial fibrillation Neoplastic (malignant) related fatigue Hypothyroidism Pneumonitis Metastatic 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 Abnormal CT of the abdomen Obesity Atrial fibrillation with rapid ventricular response (07/04/19) Bilateral pulmonary embolism (11/19/14) Type 2 diabetes mellitus Essential (primary) hypertension Gout Renal cell cancer Viral URI Encounter for education Home Medications ?Medication ?Instructions ?Recorded ?Last Taken ?Type allopurinol 100 mg tablet 100 mg PO DAILYCM gout 05/0308/05/19 History finasteride 5 mg tablet 5 mg PO DAILY prostate 05/0308/05/19 History clonidine HCl 0.1 mg tablet 0.1 mg PO BID blood pressu re 09/25/21 02/25/22 09:30 History ferrous sulfate 325 mg (65 mg 325 mg PO BID #60 tabs 0 01/06/22 Unknown Rx iron) tablet pantoprazole 40 mg tablet,delayed 40 mg PO DAILY GERD 02/16/22 02/25/22 09:30 History release diltiazem HCl 120 mg See Rx Instructions .Route 0 11/22/23 Unknown Rx capsule,extended release 24 hr .COMPLEX #180 caps vitamin B complex-vitamin C-folic 1 tab PO DAILY 01/02 Unknown History acid 0.8 mg tablet (Theresa-Fabian) glipizide 5 mg tablet 5 mg PO DAILY 08/15/24 Unkno wn History levothyroxine 125 mcg tablet 125 mcg PO DAILY 08/15/24 Unknown History aspirin 81 mg tablet,delayed 81 mg PO QDAY 10/23/24 Un known History release (Adult Low Dose Aspirin) axitinib 5 mg tablet 5 mg PO QDAY 11/28/24 Unknow n History metoprolol tartrate 100 mg tablet 100 mg PO BID #180 t abs 12/01/24 Unknown Rx dexamethasone 4 mg tablet 2 mg PO Q12H 01/08/25 Unknow n History hydrocodone-acetaminophen 5-325mg 1 tab PO Q6H PRN antony n 01/15/25 Unknown History 5mg-325mg Allergy/AdvReac Type Severity Reaction Status Date / Time Penicillins (PCN) Allergy PT UNSURE Verified 01/15/25 19:14 OF REACTION Family History Mother Diabetes Heart disease Kidney disease Hypertension CVA (cerebral vascular accident) Father Heart disease Surgical History S/P arteriovenous (AV) fistula creation (~03/2022) History of esophagogastroduodenoscopy (EGD) History of colonoscopy (2018) History of total hip arthroplasty (04/2015) History of left nephrectomy (2010) Social History housing: house Smoking Status: Never smoker second hand exposure: No alcohol intake: never substance use type: does not use caffeine: Yes frequency: does not exercise ROS ROS Narrative Review of Systems: Constitutional: Patient denies fever or chills. Eyes: Patient denies changes in vision or discharge from eyes. ENT: Patient denies runny nose, sore throat or ear pain. Resp: Patient denies SOB or cough. CV: Patient admits to stabbing chest pain radiating into his Left arm as per HPI. GI: Patient denies abdominal pain, nausea, vomiting, diarrhea or constipation. : Patient denies dysuria or hematuria at this time. MSK: Patient admits to back pain with spasms as per HPI. Skin: Patient denies rash, abscess, wounds or jaundice. Psych: Patient denies symptoms of uncontrolled depression or anxiety. Neuro: Patient denies headache or focal neurologic deficits but he does admit to paresthesias in his Left arm as per HPI. Allergy: Patient denies lip swelling, tongue swelling or urticaria. Hematology: Patient admits to recent blood clot in his rectum as per HPI. Endocrinology: Patient denies polyuria, polydipsia, polyphagia or heat/cold intolerance. 14 point ROS otherwise negative except for positives noted above in HPI. Vital Signs Vital Signs Vital Signs: 01/15/25 19:09 01/15/25 19:09 01/15/25 19:12 Temperature 97.8 F Temperature Source Oral Pulse Rate 84 97 Respiratory Rate 17 20 H Respiratory Effort Normal Non-Labored Respiratory Pattern Normal Blood Pressure 137/75 H 137/75 H Blood Pressure Mean 95 95 Pulse Ox 97 98 Oxygen Delivery Method Room Air Room Air 01/15/25 20:00 01/15/25 20:26 01/15/25 21:00 Temperature Temperature Source Pulse Rate 82 74 Respiratory Rate 18 18 Respiratory Effort Respiratory Pattern Blood Pressure 140/92 H 156/80 H Blood Pressure Mean 108 105 Pulse Ox 94 94 93 Oxygen Delivery Method Room Air Room Air 01/15/25 22:00 01/15/25 22:46 Temperature 97.8 F Temperature Source Pulse Rate 75 71 Respiratory Rate 14 20 H Respiratory Effort Respiratory Pattern Blood Pressure 157/73 H 170/79 H Blood Pressure Mean 101 109 Pulse Ox 94 98 Oxygen Delivery Method Room Air Weight Weight: 237 lb 14.06 oz Body Mass Index (BMI) 33.1 Physical Exam Const alert, oriented x3 and no apparent distress Constitutional Narrative: Obese with chronically ill appearance. General Appearance: cooperative HEENT normocephalic, head/scalp atraumatic, hearing grossly normal bilaterally and moist oral mucous membranes Eyes PERRL and EOMs intact bilaterally Neck no lymphadenopathy and supple Resp normal respiratory effort, no retractions, no use of accessory muscles and clear to auscultation bilaterally Cardio regular rate and regular rhythm GI normal to inspection, nondistended, normoactive bowel sounds, soft to palpation, non-tender and non-distended GI Narrative: Obese. Extremity normal to inspection and full ROM Skin Skin Narrative: Patient has no evidence of rash, abscess or jaundice. Neuro oriented x3, CN's II-XII intact bilaterally, moves all extremities and no focal motor deficits Sensorium / Orientation: awake, alert, oriented to person, oriented to place and oriented to time Speech: speech normal Psych affect normal Results Medical Records Data Attestation: I reviewed the patient's medical records Lab / Micro Data Attestation: I reviewed the patient's lab results. 01/15/25 19:45 01/15/25 19:45 Labs: Laboratory Results - last 24 hr 01/15/25 19:45: WBC 10.0, RBC 2.60 L, Hgb 7.8 L, Hct 24.9 L, MCV 95.8 H, MCH 30.0, MCHC 31.3 L, RDW Std Deviation 67.0 H, RDW Coeff of Shanell 19.1 H, Plt Count 116 L, MPV 9.8, Immature Gran % (Auto) 3.100 H, Neut % (Auto) 91.2 H, Lymph % (Auto) 2.6 L, [place] % (Auto) 3.0, Eos % (Auto) 0.0, Baso % (Auto) 0.1, Absolute Neuts (auto) 9.1 H, Absolute Lymphs (auto) 0.26 L, Nucleated RBC % 0.5, Differential Comment SCANNED, Anisocytosis RARE, Sodium 135, Potassium 3.9, C hloride 92 L, Carbon Dioxide 26.1, Anion Gap 17 H, BUN 23 H, Creatinine 2.53 H, Estim Creat Clear Calc 33.95 L, Est GFR (MDRD) Non-Af 27 L, BUN/Creatinine Ratio 8.9 L, Glucose 259 H, Calcium 7.9, Troponin T High Sens 102 H* D 01/15/25 22:00: Troponin T Hi Sens 2 Hr 100 H* Imaging Radiology Impression Chest X-Ray 01/15/25 20:35 IMPRESSION: No large focal consolidations. Bibasilar subsegmental atelectasis. Mild pulmonary vascular congestion. Reading Location: [facility] Assessment & Plan Assessment/Plan (1) Chest pain: QUALIFIERS: Chest pain type: unspecified Qualified Code(s): R07.9 - Chest pain, unspecified (2) Elevated troponin: (3) Metastatic 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: QUALIFIERS: Laterality: unspecified laterality Qualified Code(s): C78.00 - Secondary malignant neoplasm of unspecified lung; C64.9 - Malignant neoplasm of unspecified kidney, except renal pelvis (4) Renal cell cancer: QUALIFIERS: Laterality: right Qualified Code(s): C64.1 - Malignant neoplasm of right kidney, except renal pelvis (5) Back muscle spasm: (6) History of hematuria: (7) Dialysis patient: (8) Obesity (BMI 30.0-34.9): PLAN: Plan 1. Chest Pain; with elevated initial troponin T of 102 ng/L - Admit to PCU. Continue aspirin begun in the ER. Serialize troponin and give SL NTG prn for recurrent angina. Recent echocardiogram done on October 05, 2024 showed LVEF ~55%. I spoke with mexican food maker on-call who recommended patient not have stress test in favor of transfusion of 1 unit of packed red blood cells to see if his angina will resolve as he is only candidate for medical management, which is reasonable. Give acetaminophen prn for [id number] (level 1-5/10) pain or fever. Give morphine IV prn for severe (level 6-10/10) pain. 2. Back Spasms with history of Renal Cell Carcinoma with metastases to lung and spine; on axitinib with recent radiation treatment to T2 vertebrae due to pathologic fracture attributed to metastasis with recent admission to [facility] for treatment of a blood clot in his rectum with patient discharged ~4 days ago complicating #1 - Noted. 3. History of hematuria; previously taken off apixaban with hemoglobin of 7.8 g/dL present on admission compounding #1 & #2 - Noted. We will watch for recurrence. After speaking with mexican food maker patient will be transfused 1 unit of packed red blood cells in an effort to get his hemoglobin above 9 g/dL and to see of his angina will resolve. 4. ESRD on HD; (M-W-F) with AV-fistula (2021) with history of Left nephrectomy (2010) adding to the medical complexity of #1 - #3 - Patient did complete HD earlier today. Nephrology will need to be consulted if patient's stay is prolonged. 5. Obesity; with BMI of 33.2 this admission adding to the burden of disease outlined from #1 - #4 - Weight loss will be recommended. Check TSH. This complicates his case and may hamper recovery. 6. Essential hypertension; on metoprolol, diltiazem and clonidine BID - Maintain home regimen. 7. Hypothyroidism; on levothyroxine - Resume levothyroxine and check TSH. 8. History of renal vein thrombus - Noted. 9. DM-2; of unknown control on glipizide - Keep NPO for now and hold glipizide. FSBS q. ACHS plus SSI. Check HgbA1c to objectively assess quality of diabetic control. 10. Chronic diastolic CHF; with preserved LVEF - Stable. 11. History of PAF; not on anticoagulation due to hematuria - Patient currently in NSR. 12. History of DVT/PE (); s/p IVC - Noted. 13. YARA; on ferrous sulfate BID - Check iron studies and ferritin plus Hemoccult stools. 14. BPH; on finasteride - Resume finasteride as before. 15. History of COVID-19 (2020) - Noted. 16. History of clostridium difficile infection - Stable with no evidence of recurrence at this time. We will watch for signs of diarrhea. 17. GERD; on pantoprazole - Maintain PPI. 18. Gout; on allopurinol - Continue allopurinol with no evidence of acute flare at this time. 19. OA; s/p Left THR - Stable. 20. DVT prophylaxis - Place SCD's and avoid blood thinners with history of hematuria and renal CA. Total time: Approximately (but not less than) 75 minutes. Charges/Coding Visit Charges Inpatient E&M: 80722 Init Hosp L3
--- OUTSIDE RECORDS SUMMARY | 2025-01-15 23:29 | XMS RPT_ITS | CCD ---
Author Organization [facility] CliniSyar Care Team Providers Care Telephone Advice Nurse Name Role Phone Dr. Sam Del Toro Primary Care Provider [phone] Dr. Sam Del Toro Referring Provider Dr. Jeffrey Kuhn Attending Provider Dr. Patrice Loja Attending Provider Dr. Sam Del Toro Primary Care Provider [phone] Dr. Sam Del Toro Referring Provider Dr. Jeffrey Kuhn Attending Provider Nurse, Surgery Attending Provider Unavailable Dr. Sam Del Toro Primary Care Provider [phone] Dr. Sam Del Toro Referring Provider Dr. Jeffrey Kuhn Attending Provider NIKKI De León Referring Provider Dr. Willy Ralph Attending Provider Dr. Sam Del Toro Primary Care Provider [phone] Dr. Sam Del Toro Referring Provider Dr. Jeffrey Kuhn Attending Provider Dr. Lana Tucker Referring Provider Dr. Jamal Menendez Emergency Provider Dr. Beck Simms Admit Provider [phone] Beck Simms Attending Provider Dr. Beck Simms Other Provider [phone] Dr. Lana Tucker Other Provider [phone] Jluis Torres Other Provider [phone] Dr. Jeffrey Kuhn Other Provider Dr. Mitchel Pereira Other Provider Dr. Willy Moctezuma Other Provider Dr. Abhay Cowart Other Provider Unavailable Dorothy, Dr. Schultz Other Provider Dr. Saud No Other Provider Flako PLASTER HELPER, PLASTER HELPER-C Ruby Other Provider 1([facility])[phone] Dr. Beck Simms Referring Provider 1([facility])[phone] Dr. Moody Cuello Other Provider 1([facility])[phone] Dominic Nails Other Provider Dr. Mannie Singh Attending Provider 1([facility])[phone] Mannie Singh Other Provider Alberto PLASTER HELPER, PLASTER HELPER-C Amara Other Provider Dr. Jluis Eubanks Other Provider 1([facility])[phone] Ton Lund Other Provider Flako PLASTER HELPER, PLASTER HELPER-C Ruby Attending Provider Dr. Ton Lund Attending Provider 1([facility])[phone] Dominic Nails Attending Provider 1([facility])[phone] Sam Del Toro Primary Care Provider 1([facility])[phone] Dr. Sam Del Toro Referring Provider 1([facility])[phone] Dr. Mannie Singh Referring Provider 1([facility])[phone] Camille Parra Referring Provider 1([facility])[phone] Dr. Tayo Cannon Emergency Provider 1([facility])[phone] Jeffrey Philip Admit Provider Dr. Jeffrey Philip Other Provider Dr. Ava Tucker Attending Provider 1([facility])[phone] Ava Tucker Other Provider Dr. Jeffrey Kuhn Attending Provider 1([facility])[phone] Sam Spear Other Provider Dr. Ava Tucker Referring Provider Dr. Sam Spear Attending Provider Dr. Willy Ralph Referring Provider Dr. Willy Ralph Other Provider Dr. Sam Del Toro Primary Care Provider Dr. Patrice Loja Attending Provider Dr. Sam Del Toro Referring Provider Veronica JORDAN, PALeslee Reese Attending Provider Dr. Sam Del Toro Primary Care Provider [phone] Jamal Menendez Emergency Provider [phone] Dr. Beck Simms Admit Provider Mendez, Dr. Solares Other Provider Dr. Lana Tucker Other Provider Dr. Jluis Torres Other Provider Dr. Jeffrey Kuhn Other Provider Dr. Mitchel Pereira Other Provider Dr. Willy Moctezuma Other Provider Dr. Abhay Cowart Other Provider Unavailable Dr. Antoine De La Cruz Other Provider Dr. Saud No Other Provider Flako PLASTER HELPER, PLASTER HELPER-C Ruby Other Provider Dr. Sam Del Toro Referring Provider Dr. Beck Simms Attending Provider Dr. Willy Ralph Attending Provider Dr. Patrice Loja Attending Provider Dr. Sam Del Toro Primary Care Provider [phone] Jamal Menendez Emergency Provider Dr. Beck Simms Admit Provider Dr. Beck Simms Other Provider Dr. Moody Cuello Other Provider Dr. Dominic Nails Other Provider Dr. Mannie Singh Other Provider Alberto PLASTER HELPER, PLASTER HELPER-C Amara Other Provider Dr. Lana Tucker Other Provider Dr. Jluis Torres Other Provider Dr. Jeffrey Kuhn Other Provider Dr. Mitchel Pereira Other Provider Dr. Willy Moctezuma Other Provider Dr. Abhay Cowart Other Provider Unavailable Dr. Antoine De La Cruz Other Provider Dr. Saud No Other Provider Flako PLASTER HELPER, PLASTER HELPER-C Ruby Other Provider Dr. Jluis Eubanks Other Provider Dr. Ton Lund Attending Provider Dr. Ton Lund Other Provider Dr. Dominic Nails Attending Provider Dr. Sam Del Toro Referring Provider Dr. Willy Ralph Attending Provider Dr. Patrice Loja Attending Provider Dr. Sam Del Toro Primary Care Provider [phone] Sam Del Toro Referring Provider Dr. Jeffrey Kuhn Attending Provider Dr. Sam Del Toro Primary Care Provider [phone] Dr. Sam Del Toro Referring Provider Veronica JORDAN, PA-C Mary Ann Attending Provider Dr. Jeffrey Kuhn Attending Provider Dr. Sam Del Toro Primary Care Provider Dr. Sam Del Toro Referring Provider TERE Conroy Attending Provider Hattie, Dr. Murphy Attending Provider Dr. Sam Del Toro Primary Care Provider [phone] Dr. Sam Del Toro Referring Provider TERE Conroy Attending Provider Hattie, Dr. Murphy Attending Provider Dr. Patrice Loja Attending Provider Dr. Sam Del Toro Primary Care Provider [phone] Dr. Sam Del Toro Referring Provider Hattie, Dr. Murphy Attending Provider Alverto MIR, Dr. Conrad Primary Care Provider Alverto MIR, Dr. Conrad Referring Provider Dr. Jeffrey Kuhn MD Attending Provider Dr. Jeffrey Kuhn MD Referring Provider Dr. Patrice Loja MD Attending Provider [facility] Attending Provider Dr. Mitchel Pereira MD Attending Provider Dr. Mo Escobedo MD Referring Provider [phone] Dr. Moody Rodriguez DO Emergency Provider Dr. Sam Del Toro DO Primary Care Provider Alverto MIR, Dr. Conrad Referring Provider Dr. Jeffrey Kuhn MD Attending Provider Dr. Mitchel Pereira MD Referring Provider Dr. Sam Del Toro DO Primary Care Provider Alverto MIR, Dr. Conrad Referring Provider Dr. Jeffrey Kuhn MD Attending Provider Hattie BUSBY, Dr. Murphy Referring Provider Purvi BUSBY, Dr. Ibrahim Attending Provider Dr. Moody Rodriguez DO [facility]ending [facility] Dr[facility] Perez Emergency Provider Alverto MIR, Dr. Conrad Primary Care Provider Alverto MIR, Dr. Conrad Referring Provider Hattie BUSBY, Dr. Murphy Attending Provider Hattie BUSBY, Dr. Murphy Referring Provider Purvi BUSBY, Dr. Ibrahim Attending Provider [facility] Jeremy ANDRADE Attending Provider Randall BUSBY, Dr. Grullon Attending Provider Homero BUSBY, Dr. Mo Dailey Referring Provider Michael MIR, Dr. Uriostegui Attending Provider [place] DO, Dr. Uriostegui Emergency Provider Randall BUSBY, Dr. Grullon Referring Provider Mark MIR, Dr. Perez Emergency [facility], Dr. Cr Emergency Provider Alverto MIR, Dr. Conrad Primary Care Provider Hattie BUSBY, Dr. Murphy Attending Provider Alverto MIR, Dr. Conrad Referring Provider Dr. Ana Flores DO Attending Provider Davis MIR, Dr. Cr Attending Provider Homero BUSBY, Dr. Mo Dailey Attending Provider Homero BUSBY, Dr. Mo Dailey Referring Provider Derrick MIR, Dr. Garner Emergency Provider [phone] Flako CLOTH BE[employer]IOR [employer]ACLE DBA, Ruby R Unavailable Dominik MCGUIRE, Jenn Unavailable Unavailable Flako CLOTH BE[employer]ER[employer]SENIOR [employer]ACLE DBA, Ruby R Unavailable [facility], Sam Melendez Primary Care Provider [facility], Dr. Conrad Primary Care Provider Hattie BUSBY, Dr. Murphy Attending Provider [facility] , Dr. Conrad Referring [facility], Dr. Perez Attending Provider Davis , Dr. Cr Attending Provider Davis , Dr. Cr Emergency Provider Homero BUSBY, Dr. Mo Dailey Attending Provider Jeffrey Kuhn MD Unavailable Alverto DO, Dr. Conrad Primary Care Provider [phone] [facility], Dr. Conrad Referring Provider Purvi BUSBY, Dr. Ibrahim Attending Provider Dr. Jeffrey Kuhn MD Attending Provider [phone] Pascual Meza DO Attending Provider [facility], Dr. Tariq Emergency Provider Adebayo BUSBY, Tiarra Anguiano Unavailable Alverto, Sam Primary Care Unavailable Alverto, Sam Referring Unavailable Jeffrey Kuhn Attending Unavailable Alverto, Sam Primary Care Unavailable Jeffrey Kuhn Attending Unavailable Lana Tucker Consulting Unavailable Mo Escobedo Referring Unavailable Patrice Loja Attending Unavailable Alverto, Sam Primary Care Unavailable Alverto, Sam Primary Care Unavailable Alverto, Sam Referring Unavailable Jeffrey Kuhn Attending Unavailable Alverto, Sam Primary Care Unavailable Pascual Meza Attending Unavailable Moody Rodriguez Attending Unavailable Alverto, Sam Primary Care Unavailable Alverto, Sam Primary Care Unavailable Jeffrey Kuhn Attending Unavailable Jeffrey Kuhn Referring Unavailable Patrice Loja Attending Unavailable Alverto, Sam Primary Care Unavailable PurviPatrice Attending Unavailable Alverto, Sam Primary Care Unavailable Alverto, Sam Referring Unavailable Alverto, Sam Primary Care Unavailable PraJeffrey natarajan Attending Unavailable Alverto, Sam Referring Unavailable Jeremy Lin NP Attending Unavailable Alverto, Sam Primary Care Unavailable Alverto, Sam Referring Unavailable Alverto, Sam Primary Care Unavailable Prakelli, Jeffrey Attending Unavailable Alverto, Sam Primary Care Unavailable AsausMitchel Referring Unavailable TimothykarusMitchel Attending Unavailable Alverto, Sam Primary Care Unavailable Mya Haile Attending Unavailabl Mo Rodrigez Referring Unavailable Homero, Mo Dailey Attending Unavailable Alverto, Sam Primary Care Unavailable Alverto, Sam Primary Care Unavailable Prakelli, Jeffrey Attending Unavailable Prakelli, Jeffrey Referring Unavailable Alverto, Sam Primary Care Unavailable Ana Flores Attending Unavailable Alverto, Sam Primary Care Unavailable PraJeffrey natarajan Referring Unavailable Prakelli, Jeffrey Attending Unavailable HomeroMo Attending Unavailable Alverto, Sam Primary Care Unavailable Alverto, Sam Referring Unavailable Alverto, Sam Primary Care Unavailable Hattie, Jeffrey Attending Unavailable Alverto, Sam Primary Care Unavailable Cat Coon Attending Unavailable Alverto, Sam Primary Care Unavailable Tayo Cannon Attending Unavailable Alverto, Sam Referring Unavailable Prah, Jeffrey Attending Unavailable Alverto, Sam Primary Care Unavailable Alverto, Sam Referring Unavailable Alverto, Sam Primary Care Unavailable PraJeffrey natarajan Attending Unavailable Alverto, Sam Referring Unavailable Alverto, Sam Primary Care Unavailable Mitchel Pereira Attending Unavailable Alverto, Sam Primary Care Unavailable Alverto, Sam Referring Unavailable Jeffrey Kuhn Attending Unavailable ANDREA FARRIS Attending Unavailable ALVERTO, SAM A Primary Care Unavailable ALVERTO, SAM A Referring Unavailable ALVERTO, SAM A Referring Unavailable ALVERTO, SAM A Primary Care Unavailable ANDREA FARRIS Attending Unavailable ALVERTO, SAM A Primary Care Unavailable ALVERTO, SAM A Referring Unavailable ANDREA FARRIS Attending Unavailable ANDREA FARRIS Attending Unavailable ALVERTO, SAM A Primary Care Unavailable ALVERTO, SAM A Referring Unavailable ALVERTO, SAM A Referring Unavailable ANDREA FARRIS Attending Unavailable ALVERTO, SAM A Primary Care Unavailable ANDREA FARRIS Referring Unavailable BLAKAJ, DUKAGJIN M Attending Unavailable ALVERTO, SAM A Primary Care Unavailable DINESHCHRIS RICHARDSON Attending Unavailable TON MAYEN Referring Unavailable CONSULT, NEPHROLOGY Consulting Unavailable ALVERTO, SAM A Primary Care Unavailable DIAMOND LINCOLN Admitting Unavailable LUCIEN THORNTON Attending Unavailable CONSULT, HEMATOLOGY Consulting Unavailable ALVERTO, SAM A Primary Care Unavailable MYA HAILE Referring Unavaila ble ALVERTO, SAM A Primary Care Unavailable BLAKAJ, DUKAGJIN M Referring Unavailable BLAKAJ, DUKAGJIN M Attending Unavailable BLAKAJ, DUKAGJIN M Referring Unavailable ALVERTO, SAM A Primary Care Unavailable BLAKAJ, DUKAGJIN M Attending Unavailable ALVERTO, SAM A Referring Unavailable BLAKAJ, DUKAGJIN M Attending Unavailable ALVERTO, SAM A Primary Care Unavailable ALVERTO, SAM A Referring Unavailable ELDERTIARRA Attending Unavailable ALVERTO, SAM A Primary Care Unavailable ALVERTO, SAM A Primary Care Unavailable ELDER, TIARRA Anguiano Attending Unavailable ELDERTIARRA Referring Unavailable ALVERTO, SAM A Primary Care Unavailable ELDER, TIARRA Anguiano Attending Unavailable ELDER, TIARRA Anguiano Referring Unavailable ALVERTO, SAM A Primary Care Unavailable BLAKAJ, DUKAGJIN M Attending Unavailable ELDER, TIARRA Anguiano Referring Unavailable ALVERTO, SAM A Primary Care Unavailable BLAKAJ, DUKAGJIN M Referring Unavailable BLAKAJ, DUKAGJIN M Attending Unavailable BLAKAJ, DUKAGJIN M Referring Unavailable BLAKAJ, DUKAGJIN M Attending Unavailable ALVERTO, SAM A Primary Care Unavailable ALVERTO, SAM A Primary Care Unavailable FLAKORUBY KOCH R Referring Unavailable ELDERTIARRA Attending Unavailable ALVERTO, SAM A Referring Unavailable BLAKAJ, DUKAGJIN M Attending Unavailable ALVERTO, SAM A Primary Care Unavailable ALVERTO, SAM A Referring Unavailable BLAKAJ, DUKAGJIN M Attending Unavailable ALVERTO, SAM A Primary Care Unavailable Allergies Allergy Classification Reported Allergen(s) Allergy Type Date of Onset Reaction(s) Facility (20 sources) Penicillins; Translations: [Penicillins] Allergy to substance 8 PT UNSURE OF REACTION [facility] Medications Current Medications Medication Drug Class(es) Dates Sig (Normalized) Sig (Original) acetaminophen 325 mg / HYDROcodone bitartrate 5 mg oral tablet (20 sources) Opioid Agonist Start: 11-21-2024 take 1 tablet by mouth every six hours hydroCODone-aceta minophen 5-325 MG tablet take 1 tablet by mouth every 6 hours for 3 days 11/21/2024 Active Start: 11-09-2024 End: 01-08-2025 Start: 11-09-2024 take 1 tablet by venkat th every six hours as needed for pain Hydrocodone-Acetaminophen 5-325 mg tablet Active 1 {tbl} PO EVERY 6 HOURS NEEDED as needed for Pain 12 November 09, 2024 ascorbic acid 60 mg / calcium pantothenate 10 mg / d-biotin 0.3 mg / folic acid 0.8 mg / niacinamide 20 mg / pyridoxine 10 mg / riboflavin 1.7 mg / thiamine 1.5 mg / vitamin b12 0.006 mg oral tablet (19 sources) Vitamin B12, Vitamin C Start: 10-23-2024 take 1 tablet by mouth once daily B Yrwzssd-E-Yjman Acid (Theresa-Fabian) tablet Take 1 tablet by mouth daily. 10/23/2024 Active axitinib 5 mg oral tablet (20 sources) Kinase Inhibitor Start: 06-07-2024 End: 01-11-2025 take 1 tablet by mouth once daily at dinner Inlyta 5 MG tablet Take 1 tablet by mouth Daily (with dinner). 01/11/2025 Active Start: 06-07-2024 Start: 07-31-2021 take 1 tablet by venkat th twice daily Axitinib (Inlyta) 5 mg tablet Active 5 MG PO TWICE A DAY July 31, 2021 4:23pm On Hold: YONY Start: 10-19-2019 End: 09-20-2020 Start: 10-19-2019 End: 09-20-2020 B Complex-Vitamin C-Folic Acid (Theresa-Fabian) 0.8 mg tablet (4 sources) Start: 01-03-2024 take 1 tablet by mouth once daily B Complex-Vitamin C-Folic Acid (Theresa-Fabian) 0.8 mg tablet Active 1 {tbl} PO DAILY January 03, 2024 12:00am cloNIDine hydrochloride 0.1 mg oral tablet (20 sources) Central alpha-2 Adrenergic Agonist Start: 09-25-2021 dexamethasone 4 mg oral tablet (20 sources) Corticosteroid Start: 01-12-2025 take 1 tablet by mouth once daily dexAMETHasone 4 MG tablet Take 1 tablet by mouth daily. 01/12/2025 Active Start: 01-09-2025 End: 01-11-2025 take 4 mg by mouth once daily 4 mg, Oral, DAILY, First dose (after last modification) on Wed01/09/25 at 0900, Until Discontinued Start: 11-21-2024 End: 01-11-2025 take 1 tablet by mouth every six hours dexAMETHasone 4 MG tablet Take 1 tablet by mouth every 6 hours. 11/21/2024 01/11/2025 Discontinued (Stop Taking at Discharge) Start: 11-21-2024 End: 01-11-2025 take 1 tablet by mouth once daily dexAMETHasone 4 MG tablet Take 1 tablet by mouth daily. 40 tablet 12/11/2024 01/11/2025 Discontinued (Stop Taking at Discharge) ferrous sulfate 325 mg oral tablet (20 sources) Start: 01-06-2022 take 1 tablet by mouth at mealtime FeroSul 325 (65 Fe) MG tablet Take 1 tablet by mouth. Take with food. 06/04/2024 Active glipiZIDE 2.5 mg oral tablet (20 sources) Sulfonylurea Start: 09-06-2024 glipiZIDE 2.5 MG tablet Take 1 tablet by mouth. 09/06/2024 Active Start: 08-15-2024 Start: 07-10-2021 take 10 mg by mouth twice maribel y Glipizide Active 10 MG PO TWICE A DAY July 10, 2021 9:19am Start: 07-10-2021 End: 01-01-2022 Start: 07-10-2021 End: 01-01-2022 Glipizide 5 mg tablet Discon tinued 1.25 mg PO NEEDED as needed for elevated sugar July 10, 2021 1:00am January 01, 2022 1:55pm Start: 07-10-2021 End: 01-01-2022 Glipizide Discontinued 1.25 MG PO NEEDED July 10, 2021 1:00am January 01, 2022 1:55pm Start: 12-28-2019 End: 01-01-2020 Start: 12-28-2019 End: 01-01-2020 take 2.5 mg by mouth at bedtime Glipizide Discontinued 2.5 MG PO AT BEDTIME December 28, 2019 12:00am January 01, 2020 10:54am metoclopramide 5 mg oral tablet (20 sources) Dopamine-2 Receptor Antagonist Start: 11-09-2024 End: 01-08-2025 take 1 tablet by mouth every six hours Metoclopramide 5 MG tablet Take 1 tablet by mouth every 6 hours. 11/09/2024 Active ondansetron 4 mg disintegrating oral tablet (1 source) Serotonin-3 Receptor Antagonist Start: 01-03-2022 take 1 tablet by mouth every six hours Ondansetron (Zofran Odt) 4 mg Tablet,Disintegratin g Active 4 MG PO EVERY 6 HOURS January 03, 2022 12:07pm (6 sources) Start: 01-03-2024 Start: 01-06-2022 Completed/Discontinued Medications Medication Drug Class(es) Dates Sig (Normalized) Sig (Original) acetaminophen 325 mg oral tablet (2 sources) Start: 01-09-2025 End: 01-11-2025 take 1 tablet by mouth every six hours as needed 650 mg, Oral, EVERY 6 HOURS NEEDED, Starting on Wed01/09/25 at 0452, Until Wed01/11/25 at 1604, Mild Pain, Maximum dose of acetaminophen is 4000 mg from all sources in 24 hours. acetaminophen 325 mg / oxyCODONE hydrochloride 5 mg oral tablet (20 sources) Opioid Agonist Start: 05-22-2015 End: 11-14-2018 Start: 05-22-2015 End: 11-14-2018 Oxycodone-Acetaminophen 1 TA BLET tablet Discontinued 1 - 2 {tbl} PO EVERY 6 HOURS NEEDED as needed for Mod-Severe Pain () 60 May 22, 2015 12:00am November 14, 2018 8:53am Start: 05-22-2015 End: 11-14-2018 take 1 tablet by mouth every six hours as needed Oxycodone-Acetaminophen Discontinued 1 - 2 TABLET PO EVERY 6 HOURS NEEDED 60 May 22, 2015 12:00am November 14, 2018 8:53am allopurinol 100 mg oral tablet (20 sources) Xanthine Oxidase Inhibitor Start: 01-09-2025 End: 01-11-2025 take 100 mg by mouth once daily 100 mg, Oral, DAILY, First dose (after last modification) on Wed01/09/25 at 0900, Until Discontinued Start: 05-03-2015 Allopurinol 10 0 MG tablet 11/18/2024 Active aluminum hydroxide 40 mg/ml / magnesium hydroxide 40 mg/ml / simethicone 4 mg/ml oral suspension (2 sources) Start: 01-09-2025 End: 01-11-2025 take 30 mL by mouth every six hours as needed amLODIPine 5 mg oral tablet (20 sources) Dihydropyridine Calcium Channel Jeffrey Start: 10-17-2020 End: 06-26-2021 Start: 09-20-2020 End: 09-27-2020 Start: 07-25-2019 End: 09-29-2019 Start: 07-25-2019 End: 08-11-2019 take 1 tablet by mouth once daily Amlodipine 10 mg tablet Discontinued 10 mg PO DAILY July 25, 2019 1:00am August 11, 2019 5:15pm Start: 07-25-2019 End: 09-29-2019 take 5 mg by mouth once daily Amlodipine 10 mg tablet Discontinued 5 mg PO DAILY August 11, 2019 5:14pm August 15, 2019 3:42pm apixaban 2.5 mg oral tablet (20 sources) Factor Xa Inhibitor Start: 04-17-2022 End: 10-23-2024 ascorbic acid 100 mg / biotin 0.15 mg / calcium pantothenate 5 mg / folic acid 1 mg / niacin 20 mg / pyridoxine 10 mg / riboflavin 1.7 mg / thiamine mononitrate 1.5 mg / vitamin b12 0.006 mg oral capsule (1 source) Nicotinic Acid, Vitamin B12, Vitamin C Start: 01-10-2025 End: 01-11-2025 take 1 capsule by mouth once daily 1 mg (1 capsule), Oral, DAILY, First dose on Wed01/10/25 at 0900, Until Discontinued aspirin 81 mg chewable tablet (20 sources) Platelet Aggregation Inhibitor, Nonsteroidal Anti-inflammatory Drug Start: 01-09-2025 End: 01-11-2025 take 81 mg by mouth once daily 81 mg, Oral, DAILY, First dose (after last modification) on Wed01/09/25 at 0900, Until Discontinued Start: 10-23-2024 Start: 02-12-2022 End: 04-17-2022 Start: 11-09-2014 End: 11-14-2018 Dextrose 50% injection 7.5-25 g (1 source) Start: 01-08-2025 End: 01-09-2025 7.5-25 g, Intravenous, ADMINISTER DIRECTED, Starting on Wed01/08/25 at 2352, Until Wed01/09/25 at 0440, Blood glucose dialysate 3 K - 2.50 Ca Solution 1 (1 source) Start: 01-09-2025 End: 01-09-2025 Dialysis, Administer over 3 Hours, CONTINUOUS, Starting on Wed01/09/25 at 1045, Until Wed01/09/25 at 1544, Intra-op/Intra-Proc 24 hr dilTIAZem hydrochloride 120 mg extended release oral capsule (20 sources) Calcium Channel Jeffrey Start: 01-09-2025 End: 01-11-2025 take 120 mg by mouth every twelve hours 120 mg, Oral, EVERY 12 HOURS, First dose (after last modification) on Wed01/09/25 at 0900, Until Discontinued, Slow release product. Do not chew or crush. Start: 01-09-2025 End: 01-09-2025 Start: 09-06-2024 take 1 mg by mouth e very twenty-four hours Cartia XT 120 MG Cap SR 24HR capsule XL Take 1 mg by mouth. 09/06/2024 Active Start: 06-27-2021 End: 11-22-2023 take 1 mg by mouth every twenty-four hours Cartia XT 120 MG Cap SR 24HR capsule XL Take 1 mg by mouth. 09/06/2024 Active Start: 06-27-2021 End: 11-22-2023 take 1 capsule by mouth twice daily Diltiazem Hcl 120 mg capsule,extended release 24hr Discontinued 0 .ROUTE .COMPLEX 180 October 05, 2022 9:00am November 22, 2023 8:08am take 1 capsule by mouth twice a day Start: 06-27-2021 End: 11-07-2021 take 1 capsule by mouth once daily Diltiazem Hcl 120 mg capsule,extended release 24hr Discontinued 120 mg PO DAILY 180 June 27, 2021 12:34pm November 07, 2021 12:56pm Start: 04-18-2021 End: 06-27-2021 Start: 09-29-2019 End: 09-20-2020 doxycycline monohydrate 100 mg oral tablet (20 sources) Tetracycline-class Drug Start: 02-16-2022 End: 04-17-2022 Start: 07-08-2019 End: 07-25-2019 finasteride 5 mg oral tablet (20 sources) 5-alpha Reductase Inhibitor Start: 01-09-2025 End: 01-11-2025 take 5 mg by mouth once daily 5 mg, Oral, DAILY, First dose (after last modification) on Wed01/09/25 at 0900, Until Discontinued, Do not split, break, crush or open this medication. Contact pharmacy if altered route or dose needed. Start: 05-03-2015 take 1 tablet by venkat th once daily Finasteride 5 MG tablet Take 1 tablet by mouth daily. 10/22/2024 Active furosemide 40 mg oral tablet (20 sources) Loop Diuretic Start: 02-16-2022 End: 01-03-2024 Start: 02-16-2022 End: 01-03-2024 Furosemide 40 mg tablet Disc ontinued 20 mg PO DAILY October 09, 2022 9:46am December 22, 2022 10:26am Start: 02-16-2022 End: 01-03-2024 take 1 tablet by mouth once daily Furosemide 40 mg tablet Discontinued 0 .ROUTE .COMPLEX December 22, 2022 10:26am January 03, 2024 8:23am take 1 tablet by mouth once daily Start: 2021 End: 01-01-2022 Start: 2021 End: 01-01-2022 take 1 tablet by mouth once daily Furosemide (Lasix) 40 mg tablet Discontinued 40 mg PO DAILY 2021 12:00am January 01, 2022 1:55pm Gadopiclenol SOLN 1-25 mL (1 source) Start: 11-23-2024 End: 11-23-2024 1-25 mL, Intravenous, ONCE, 1 dose, On Wed11/23/24 at 1715 glucose 0.45 mg/mg oral gel (1 source) Start: 01-08-2025 End: 01-09-2025 1-2 Tube, Oral, ADMINISTER DIRECTED, Starting on Wed01/08/25 at 2352, Until Wed01/09/25 at 0440, Blood glucose 1 ml heparin sodium, porcine 5000 unt/ml prefilled syringe (2 sources) Unfractionated Heparin, Anti-coagulant Start: 01-09-2025 End: 01-11-2025 inject 5000 [IU] by subcutaneous injection every eight hours 5,000 Units, Subcutaneous, EVERY 8 HOURS (0800/1600/2200 ), First dose (after last modification) on Wed01/09/25 at 0800, Until Discontinued hydroCHLOROthiazide 25 mg oral tablet (20 sources) Thiazide Diuretic Start: 10-20-2019 End: 2021 Start: 10-20-2019 End: 09-20-2020 Hydrochlorothiazide 25 mg ta blet Discontinued 12.5 mg PO DAILY September 19, 2020 10:55am September 20, 2020 12:19pm Start: 10-20-2019 End: 2021 take 1 tablet by mouth once daily Hydrochlorothiazide 25 mg tablet Discontinued 25 mg PO DAILY April 01, 2021 1:21pm 2021 6:43pm Start: 08-18-2019 End: 10-20-2019 Start: 08-18-2019 End: 10-19-2019 take 1 tablet by mouth once daily Hydrochlorothiazide 12.5 mg tablet Discontinued 12.5 mg PO DAILY August 18, 2019 1:00am October 19, 2019 10:34am hydroCHLOROthiazide 12.5 mg / lisinopril 20 mg oral tablet (20 sources) Thiazide Diuretic, Angiotensin Converting Enzyme Inhibitor Start: 11-09-2014 End: 07-25-2019 Start: 11-09-2014 End: 07-25-2019 Lisinopril-Hydrochlorothiazi de 1 TABLET tablet Discontinued 2 {tbl} PO DAILY November 09, 2014 12:00am July 25, 2019 12:10pm lisinopril/hctz 20/12.5 Start: 11-09-2014 End: 07-25-2019 take 2 tablets by mouth once daily Lisinopril-Hydrochlorothiazide Discontin ued 2 TABLET PO DAILY November 09, 2014 12:00am July 25, 2019 12:10pm lisinopril/hctz 20/12.5 1 ml HYDROmorphone hydrochloride 1 mg/ml cartridge (1 source) Opioid Agonist Start: 01-09-2025 End: 01-09-2025 0.5 mg, Intravenous, ONCE, 1 dose, On Wed01/09/25 at 0645 Insulin lispro (HUMALOG) injection (2 sources) Start: 01-09-2025 End: 01-11-2025 Insulin lispro (HUMALOG) injection Start: 01-09-2025 End: 01-09-2025 Insulin lispro (HUMALOG) inj ection levoFLOXacin 750 mg oral tab let (19 sources) Quinolone Antimicrobial Start: 01-17-2022 End: 02-12-2022 levothyroxine sodium 0.05 mg oral tablet (20 sources) l-Thyroxine Start: 01-09-2025 End: 01-09-2025 Start: 07-04-2024 End: 08-15-2024 Levothyroxine 100 mcg tablet Discontinued 125 ug .ROUTE .COMPLEX July 04, 2024 9:31am August 15, 2024 11:00am 125 mcg; Start: 06-23-2024 End: 01-11-2025 take 125 ug by mouth once daily before breakfast 125 mcg, Oral, DAILY BEFORE BREAKFAST, First dose (after last modification) on Wed01/09/25 at 0600, Until Discontinued, Hold tube feedings for 1 hour before and 1 hour after medication administration. Start: 04-29-2020 End: 08-15-2024 Start: 02-29-2020 End: 03-30-2020 metoprolol tartrate 25 mg oral tablet (20 sources) beta-Adrenergic Jeffrey Start: 01-09-2025 End: 01-11-2025 take 100 mg by mouth twice daily 100 mg, Oral, 2 TIMES DAILY, First dose (after last modification) on Wed01/09/25 at 0900, Until Discontinued Start: 01-09-2025 End: 01-09-2025 Start: 11-07-2021 End: 12-01-2024 take 1 tablet by mouth twice daily Metoprolol 100 MG tab regular release Take 1 tablet by mouth 2 times daily. Not certain of dose 11/13/2024 Active Start: 07-31-2021 End: 11-07-2021 Start: 07-04-2019 End: 06-27-2021 abuse-deterrent 12 hr oxyCODONE hydrochloride 10 mg extended release oral tablet (20 sources) Opioid Agonist Start: 05-22-2015 End: 11-14-2018 pantoprazole 40 mg delayed release oral tablet (20 sources) Proton Pump Inhibitor Start: 01-09-2025 End: 01-11-2025 take 40 mg by mouth once daily 40 mg, Oral, DAILY, First dose (after last modification) on Wed01/09/25 at 0900, Until Discontinued, Swallow whole; do not crush or chew., Indications: Continuation of Home Therapy Start: 09-06-2024 take 1 tablet by venkat th once daily Pantoprazole [address] tablet DR Take 1 tablet by mouth daily. 09/06/2024 Active Start: 02-17-2019 End: 02-16-2022 predniSONE 20 mg oral tablet (20 sources) Start: 07-02-2021 End: 07-31-2021 take 2 tablets by mouth once daily Prednisone 20 mg tablet Discontinued 40 mg PO DAILY July 10, 2021 10:02am July 31, 2021 4:40pm Start: 07-02-2021 End: 07-31-2021 take 40 mg by mouth once daily Prednisone Discontinued 40 MG PO DAILY July 10, 2021 10:02am July 31, 2021 4:40pm Start: 06-24-2021 End: 11-07-2021 take 10 mg by mouth once daily Prednisone 20 mg tablet Discontinued 10 mg PO DAILY August 14, 2021 3:47pm November 07, 2021 9:18am Start: 06-24-2021 End: 07-02-2021 take 3 tablets by mouth once daily Prednisone 20 mg tablet Discontinued 60 mg PO DAILY June 24, 2021 12:49pm July 02, 2021 3:51pm Start: 06-24-2021 End: 07-02-2021 take 60 mg by mouth once daily Prednisone Discontinued 60 MG PO DAILY June 24, 2021 12:49pm July 02, 2021 3:51pm Start: 06-05-2021 End: 11-07-2021 Start: 06-05-2021 End: 11-07-2021 Start: 06-05-2021 End: 06-24-2021 take 5 tablets by mouth once daily, then take 4 tablets by mouth once daily Prednisone 20 mg tablet Discontinued 100 mg PO .COMPLEX 63 June 05, 2021 1:00am June 24, 2021 12:52pm Take 100 mg (5 tablets) by mouth daily x7 days, then 80 mg (4 tablets) by mouth daily x7 days Start: 06-05-2021 End: 06-24-2021 Prednisone Discontinued 100 MG PO .COMPLEX 63 June 05, 2021 1:00June 24, 2021 12:52pm Take 100 mg (5 tablets) by mouth daily x7 days, then 80 mg (4 tablets) by mouth daily x7 days Start: 11-13-2019 End: 11-23-2019 Start: 11-13-2019 End: 11-23-2019 take 2 tablets by mouth once daily at mealtime Prednisone 20 MG tablet Discontinued 40 mg PO DAILY 14 05November 13, 2019 12:00am November 22, 2019 12:00November 23, 2019 12:02am With Food Start: 11-13-2019 End: 11-23-2019 take 40 mg by mouth once daily at mealtime Prednisone Discontinued 40 MG PO DAILY 14 05November 13, 2019 12:00am November 23, 2019 12:02am With Food Start: 08-17-2019 End: 08-24-2019 Start: 08-17-2019 End: 08-24-2019 take 3 tablets by mouth once daily Prednisone 20 MG tablet Discontinued 60 mg PO DAILY 12 02August 17, 2019 1:00am August 23, 2019 1:00am August 24, 2019 1:07am Start: 08-17-2019 End: 08-24-2019 take 60 mg by mouth once daily Prednisone Discontinued 60 MG PO DAILY 12 02August 17, 2019 1:00am August 24, 2019 1:07am Start: 05-20-2015 End: 05-22-2015 rivaroxaban 15 mg oral table t (20 sources) Factor Xa Inhibitor Start: 10-15-2018 End: 11-14-2018 Start: 05-22-2015 End: 01-01-2022 Start: 11-20-2014 End: 05-22-2015 250 ml sodium chloride 9 mg/ ml injection (3 sources) Start: 01-09-2025 End: 01-11-2025 Start: 01-09-2025 End: 01-09-2025 Intravenous, at 20 mL/hr, NEEDED, Starting on Wed01/09/25 at 0210, Until Wed01/09/25 at 0440, Carrier Fluid - See Admin. Inst, 250mL 0.9NS to be used as carrier fluid for intermittent small volume or piggyback medication administration as needed. Infusion rate of the carrier fluid should be set at 20 mL/hr unless the rate as the intermittent medication is less than 20 mL/hr. For intermittent medications with a rate less than 20 mL/hr set the carrier fluid at that rate of the intermittent or piggy back medication. Start: 11-23-2024 End: 11-23-2024 1-100 mL, Intravenous, ONCE NEEDED, 1 dose, Starting on Xuan 11/23/24 at 1712, Until Xuan 11/23/24 at 1725, Flush, MR Procedure tamsulosin hydrochloride 0.4 mg oral capsule (20 sources) alpha-Adrenergic Jeffrey Start: 11-09-2014 End: 09-28-2023 Start: 11-09-2014 End: 04-17-2022 take 1 capsule by mouth twice daily Tamsulosin 0.4 MG capsule Discontinued 0.4 mg PO TWICE A DAY November 09, 2014 12:00am April 17, 2022 10:32am traMADol hydrochloride 50 mg oral tablet (20 sources) Opioid Agonist Start: 11-13-2019 End: 11-16-2019 Start: 11-09-2014 End: 05-22-2015 Start: 11-09-2014 End: 05-22-2015 take 2 tablets by mouth every four hours as needed for pain Tramadol 50 MG tablet Discontinued 100 mg PO EVERY 4 HOURS NEEDED as needed for Pain November 09, 2014 12:00am May 22, 2015 12:20pm Start: 11-09-2014 End: 05-22-2015 take 100 mg by mouth every four hours as needed Tramadol Discontinued 100 MG PO EVERY 4 HOURS NEEDED November 09, 2014 12:00am May 22, 2015 12:20pm Problems Active Problems Problem Classification Problem Date Documented Da te Episodic/Chronic Abdominal pain (20 sources) Abdominal pain; Translations: [Unspecified abdominal pain] Episodic Acute and unspecified renal failure (20 sources) Acute renal failure syndrome; Translations: [Acute kidney failure, unspecified] Episodic Administrative/social admission (20 sources) Patient encounter status; Translations: [Counseling, unspecified] Episodic Cancer of kidney and renal pelvis (4 sources) Renal cell carcinoma; Translations: [Malignant neoplasm of unspecified kidney, except renal pelvis] Onset: 5 11-22-2024 Chronic Cancer of kidney and renal pelvis (20 sources) H/O: malignant neoplasm; Translations: [Personal history of other malignant neoplasm of kidney] Episodic Cardiac dysrhythmias (20 sources) Paroxysmal atrial fibrillation; Translations: [Paroxysmal atrial fibrillation] Onset: 9 Chronic Chronic kidney disease (20 sources) Chronic kidney disease stage 4; Translations: [Chronic kidney disease, stage 4 (severe)] Onset: 5 Chronic Comment on above: Wednesday, Wednesday, Congestive heart failure; nonhypertensive (20 sources) Chronic diastolic heart failure; Translations: [Chronic diastolic (congestive) heart failure] Onset: 5 Chronic Comment on above: Echocardiogram on showed EF 55%. May be due to Axitinib. Echocardiogram on showed EF 55%. May be due to Axitinib. Deficiency and other anemia (19 sources) Anemia; Translations: [Anemia, unspecified] 04-16-2022 Episodic Deficiency and other anemia (4 sources) Anemia, unspecified; Translations: [Anemia, unspecified] Episodic Diabetes mellitus without complication (17 sources) Type 2 diabetes mellitus; Translations: [Type 2 diabetes mellitus without complications] 04-16-2022 Chronic Esophageal disorders (1 source) Gastro-esophageal reflux disease without esophagitis; Translations: [Gastro-esophageal reflux disease without esophagitis] Onset: Chronic Essential hypertension (20 sources) Essential hypertension; Translations: [Essential (primary) hypertension] Onset: 5 Chronic Genitourinary symptoms and ill-defined conditions (19 sources) Blood in urine; Translations: [Hematuria, unspecified] Onset: 5 10-04-2024 Episodic Comment on above: May be due to Antico agulant, Axitinib, Heparin used in HD or R kidney mass. Seen by Urology. Malaise and fatigue (12 sources) Cancer-related fatigue; Translations: [Neoplastic (malignant) related fatigue] Episodic Mycoses (20 sources) Candidiasis; Translations: [Candidiasis, unspecified] 08-06-2019 Episodic Nausea and vomiting (5 sources) Vomiting; Translations: [Vomiting, unspecified] Onset: 5 11-09-2024 Episodic Neoplasms of unspecified nature or uncertain behavior (5 sources) Neoplasm of spinal cord; Translations: [Neoplasm of unspecified behavior of endocrine glands and other parts of nervous system] Onset: 5 11-20-2024 Episodic Other aftercare (7 sources) Drug therapy finding; Translations: [longterm (current) use of anticoagulants] 10-04-2024 Episodic Other bone disease and musculoskeletal deformities (5 sources) Other specified disorders of bone, unspecified site; Translations: [Lytic lesion of bone on x-ray] 11-09-2024 Episodic Other circulatory disease (20 sources) Low blood pressure; Translations: [Hypotension, unspecified] 01-09-2022 Episodic Other circulatory disease (6 sources) Hypotension, unspecified; Translations: [Hypotension, unspecified] Episodic Other diseases of kidney and ureters (6 sources) Abnormal renal function; Translations: [Disorder of kidney and ureter, unspecified] Episodic Other diseases of kidney and ureters (19 sources) Disorder of kidney and ureter, unspecified; Translations: [Unspecified disorder of kidney and ureter] Episodic Other fractures (2 sources) Closed fracture of second thoracic vertebra; Translations: [Unspecified fracture of second thoracic vertebra, initial encounter for closed fracture] 11-20-2024 Episodic Other gastrointestinal disorders (19 sources) Diarrhea; Translations: [Diarrhea, unspecified] 01-14-2022 Episodic Other gastrointestinal disorders (4 sources) Diarrhea, unspecified; Translations: [Diarrhea] Episodic Other lower respiratory disease (20 sources) Cough; Translations: [Cough] 01-09-2022 Episodic Other lower respiratory disease (20 sources) Dyspnea; Translations: [Dyspnea, unspecified] 01-09-2022 Episodic Other lower respiratory disease (6 sources) Dyspnea, unspecified; Translations: [Other respiratory abnormalities] Episodic Other lower respiratory disease (1 source) Shortness of breath; Translations: [Shortness of breath] Onset: 5 Episodic Other lower respiratory disease (2 sources) Shortness of breath Onset: Episodic Other nutritional; endocrine; and metabolic disorders (19 sources) Hyperbilirubinemia; Translations: [Other disorders of bilirubin metabolism] 01-14-2022 Chronic Other nutritional; endocrine; and metabolic disorders (4 sources) Other disorders of bilirubin metabolism; Translations: [Jaundice, unspecified, not of ] Chronic Other nutritional; endocrine; and metabolic disorders (17 sources) Obesity; Translations: [Obesity, unspecified] 04-16-2022 Chronic Other upper respiratory infections (20 sources) Viral upper respiratory tract infection; Translations: [Acute upper respiratory infection, unspecified] Episodic Pancreatic disorders (not diabetes) (20 sources) Mass of pancreas; Translations: [Other specified diseases of pancreas] Onset: Episodic Comment on above: Metastatic Renal can cer, stable masses in pancreas. Pneumonia (except that caused by tuberculosis or sexually transmitted disease) (19 sources) Pneumonia; Translations: [Pneumonia, unspecified organism] 01-25-2022 Episodic Residual codes; unclassified (15 sources) Encounter for other specified prophylactic measures; Translations: [Need for prophylactic immunotherapy] Episodic Secondary malignancies (20 sources) Secondary malignant neoplasm of lung; Translations: [Secondary malignant neoplasm of unspecified lung] 05-13-2022 Chronic Comment on above: CT 10/02/21 shows sta ble disease, no evidence of progression.Kyetruda and Axitinib on hold because of Renal dysfunction.Cr was 3.14 on 09/25/2021.On treatment break since March 2021.CT 05/11/2022 shows R Renal mass, pancreatic masses, bilateral lung nodules -stable.CT 09/14/2022 reviewed, lung nodules has increased slight, abdomen/pelvis is stable.Comes for follow up.CT 03/19/2023 reviewed, stable, no new metastatic diseaseCT on 09/21/2023 reviewed, shows stable disease in lungs and R kidney and pancreas.Comes for follow up.CT on 04/17/2024 reviewed, shows progressive disease with increase in Lungs nodules.Started Axitinib 5mg bid on 06/04/2024.Had general weakness with poor appetite and his cardiac EF on 07/11/2024 showed EF 40%Axitinib was held. Weakness, anorexia improvedEF has improved to 55% on 08/08/2024. He resumed Axitinib at a lower dose of 5 mg. once a day July 2024.Was seen September 12, 2024 with no recurrence of symptoms and no evidence for uncompensated congestive heart failure. CT 10/02/21 shows sta ble disease, no evidence of progression.Kyetruda and Axitinib on hold because of Renal dysfunction.Cr was 3.14 on 09/25/2021.On treatment break since March 2021.CT 05/11/2022 shows R Renal mass, pancreatic masses, bilateral lung nodules -stable.CT 09/14/2022 reviewed, lung nodules has increased slight, abdomen/pelvis is stable.Comes for follow up.CT 03/19/2023 reviewed, stable, no new metastatic diseaseCT on 09/21/2023 reviewed, shows stable disease in lungs and R kidney and pancreas.Comes for follow up.CT on 04/17/2024 reviewed, shows progressive disease with increase in Lungs nodules.Started Axitinib 5mg bid on 06/04/2024.Had general weakness with poor appetite and his cardiac EF on 07/11/2024 showed EF 40%Axitinib was held. Weakness, anorexia improvedEF has improved to 55% on 08/08/2024. He resumed Axitinib at a lower dose of 5 mg once a day July 2024.Tolerating therapy. CT 10/02/21 shows sta ble disease, no evidence of progression.Kyetruda and Axitinib on hold because of Renal dysfunction.Cr was 3.14 on 09/25/2021.On treatment break since March 2021.CT 05/11/2022 shows R Renal mass, pancreatic masses, bilateral lung nodules -stable.CT 09/14/2022 reviewed, lung nodules has increased slight, abdomen/pelvis is stable.Comes for follow up.CT 03/19/2023 reviewed, stable, no new metastatic diseaseCT on 09/21/2023 reviewed, shows stable disease in lungs and R kidney and pancreas.Comes for follow up.CT on 04/17/2024 reviewed, shows progressive disease with increase in Lungs nodules.Started Axitinib 5mg bid on 06/04/2024.Had general weakness with poor appetite and his cardiac EF on 07/11/2024 showed EF 40%Axitinib was held. Weakness, anorexia improvedEF has improved to 55% on 08/08/2024. He resumed Axitinib at a lower dose of 5 mg once a day July 2024.Tolerating therapy.Comes for follow upEchocardiogram on 10/05/2024 shows EF 55%. Secondary malignancies (20 sources) Secondary malignant neoplasm of unspecified lung; Translations: [Secondary malignant neoplasm of lung] Onset: 5 Chronic Secondary malignancies (20 sources) Secondary malignant neoplasm of vertebral column; Translations: [Secondary malignant neoplasm of bone] Onset: 5 11-20-2024 Chronic Secondary malignancies (2 sources) Secondary malignant neoplasm of bone; Translations: [Secondary malignant neoplasm of bone] Onset: 5 Chronic Spondylosis; intervertebral disc disorders; other back problems (7 sources) Acute thoracic back pain; Translations: [Pain in thoracic spine] Onset: 5 11-09-2024 Episodic Syncope (20 sources) Syncope; Translations: [Syncope and collapse] Episodic Thyroid disorders (20 sources) Hypothyroidism; Translations: [Hypothyroidism, unspecified] Chronic Comment on above: Due to Keytruda and on Synthroid replacement. TSH is normal since 06/05/2021 Unclassified (3 sources) No additional problems on file Unclassified (1 source) longterm (current) use of other immunomodulators and immunosuppressants; Translations: [longterm (current) use of other immunomodulators and immunosuppressants] Onset: 5 Past or Other Problems Problem Classification Problem Date Documented Date Episodic/Chronic Complication of device; implant or graft (9 sources) Disorder of surgical arteriovenous fistula; Translations: [Other mechanical complication of surgically created arteriovenous fistula, initial encounter] Onset: 05-09-2024 04-13-2024 Episodic Mood disorders (19 sources) Mood disorders Onset: 11-23-2024 Resolved: 11-30-2024 11-23-2024 Pulmonary heart disease (20 sources) Pulmonary embolism; Translations: [Other pulmonary embolism without acute cor pulmonale] Onset: 11-19-2014 Episodic Comment on above: Extensive bilateral pulmonary arterial thromboembolism 11/19/2014 Viral infection (20 sources) Disease caused by 2019-nCoV; Translations: [COVID-19] Onset: 07-11-2021 01-04-2022 Episodic Results Test Name Value Interpretation Reference Range Facility CALCIUMon 01-11-2025 Calcium [Mass/Vol] 8.3 mg/dL Low 8.6 - 10. 5 [facility] Calcium [Mass/Vol] 8.3 mg/dL Low 8.6-10.5 [facility] Comment on above: Performed By: #### L ABHSTI1, LIPA, HFP, IPB, CA, MGO #### [facility] (DEFAULT) [address] [place] [id number] CARDIAC RHYTHMon 01-11-2025 [facility] CBC,PLATELETSon 01-11-2025 Erythrocyte distribution width (RBC) [Ratio] 19.9 % High 10.9 - 14.3 % [facility] Hematocrit (Bld) [Volume fraction] 28.3 % Low 39.6 - 48.8 % [facility] Hemoglobin (Bld) [Mass/Vol] 8.7 g/dL Low 13.4 - 16.8 g/dL [facility] Interpretation and review of laboratory results Abnormal [facility] MCH (RBC) [Entitic mass] 30.2 pg 26.1 - 33.3 pg [facility] MCHC (RBC) [Mass/Vol] 30.7 g/dL Low 31.9 - 36.5 g/dL [facility] MCV (RBC) [Entitic vol] 98.3 fL High 79.0 - 94.5 fL [facility] Platelet mean volume (Bld) [Entitic vol] 10 fL 8.7 - 12.3 fL [facility] Platelets (Bld) [#/Vol] 90 10*3/uL Low 146 - 337 K/uL [facility] RBC (Bld) [#/Vol] 2.88 10*6/uL Low [facility] WBC (Bld) [#/Vol] 12.33 10*3/uL High 3.73 - 10.10 K/uL [facility] Hematocrit (Bld) [Volume fraction] 28.3 % Low 39.6-48.8 [facility] Comment on above: Performed By: #### L ABHSTI1, LIPA, HFP, IPB, CA, MGO #### [facility] (DEFAULT) [address] [place] [address] Hemoglobin (Bld) [Mass/Vol] 8.7 g/dL Low 13.4-16.8 [facility] Comment on above: Performed By: #### L ABHSTI1, LIPA, HFP, IPB, CA, MGO #### [facility] (DEFAULT) [address] [place] [id number] MCV (RBC) [Entitic vol] 98.3 fL High 79.0-94.5 [facility] Comment on above: Performed By: #### L ABHSTI1, LIPA, HFP, IPB, CA, MGO #### [facility] (DEFAULT) [address] [place] [id number] Mean Cell Hgb 30.2 pg Normal 26.1-33.3 [facility] Comment on above: Performed By: #### L ABHSTI1, LIPA, HFP, IPB, CA, MGO #### [facility] (DEFAULT) [address] [place] [id number] Mean Cell Hgb Conc 30.7 g/dL Low 31.9-36.5 [facility] Comment on above: Performed By: #### L ABHSTI1, LIPA, HFP, IPB, CA, MGO #### [facility] (DEFAULT) [address] [place] [id number] Platelet mean volume (Bld) [Entitic vol] 10.0 fL Normal 8.7-12.3 [facility] Comment on above: Performed By: #### L ABHSTI1, LIPA, HFP, IPB, CA, MGO #### [facility] (DEFAULT) [address] [place] [phone] Platelets (Bld) [#/Vol] 90 10*3/uL Low 146-337 [facility] Comment on above: Performed By: #### L ABHSTI1, LIPA, HFP, IPB, CA, MGO #### [facility] (DEFAULT) [address] [place] [phone] RBC (Bld) [#/Vol] 2.88 10*6/uL Low 4.38-5.83 [facility] Comment on above: Performed By: #### L ABHSTI1, LIPA, HFP, IPB, CA, MGO #### [facility] (DEFAULT) [address] [place] [address] RBC Distribution 19.9 % High 10.9-14.3 [facility] Comment on above: Performed By: #### L ABHSTI1, LIPA, HFP, IPB, CA, MGO #### [facility] (DEFAULT) [address] [place] [phone] WBC (Bld) [#/Vol] 12.33 10*3/uL High 3.73-10.10 [facility] Comment on above: Performed By: #### L ABHSTI1, LIPA, HFP, IPB, CA, MGO #### [facility] (DEFAULT) [address] [place] [id number] CHEM 7 (LYTES,BUN,CREA,GLUC) on 01-11-2025 Anion gap [Moles/Vol] 17 mmol/L 7 - 17 mmol/L [facility] Chloride [Moles/Vol] 97 mmol/L Low 98 - 10 8 mmol/L [facility] CO2 [Moles/Vol] 27 mmol/L 21 - 31 mmol/L [facility] Creatinine [Mass/Vol] 3.66 mg/dL High 0.70 - 1.30 mg/dL [facility] eGFR, CKD-EPI, Male 17 Low - PINF [facility] Comment on above: Reported eGFR is bas ed on the CKD-EPI 2020 equation using creatinine, age, and sex. Glucose [Mass/Vol] 153 mg/dL 70 - 179 mg/dL [facility] Osmolality Calc [Osmolality] 300 [facility] Potassium [Moles/Vol] 4.6 mmol/L 3.5 - 5.0 mmol/L [facility] Sodium [Moles/Vol] 136 mmol/L 135 - 145 mmol/L [facility] Urea nitrogen [Mass/Vol] 42 mg/dL High 7 - 25 mg/dL [facility] Urea nitrogen/Creatinine [Mass ratio] 11 mg/mg [facility] Anion gap [Moles/Vol] 17 mmol/L Normal 7-17 [facility] Comment on above: Performed By: #### L ABHSTI1, LIPA, HFP, IPB, CA, MGO #### [facility] (DEFAULT) [address] [place] [phone] Chloride [Moles/Vol] 97 mmol/L Low 98-108 [facility] Comment on above: Performed By: #### L ABHSTI1, LIPA, HFP, IPB, CA, MGO #### [facility] (DEFAULT) [address] [place] [phone] CO2 [Moles/Vol] 27 mmol/L Normal 21-31 [facility] Comment on above: Performed By: #### L ABHSTI1, LIPA, HFP, IPB, CA, MGO #### [facility] (DEFAULT) [address] [place] [id number] Creatinine [Mass/Vol] 3.66 mg/dL High 0.70-1.30 [facility] Comment on above: Performed By: #### L ABHSTI1, LIPA, HFP, IPB, CA, MGO #### [facility] (DEFAULT) [address] [place] [address] [id number] GFR/1.73 sq M.predicted among non-blacks MDRD (S/P/Bld) [Vol rate/Area] 17 mL/min/{1.73_m2} Low >=60 [facility] Comment on above: Result Comment: Repo rted eGFR is based on the CKD-EPI 2020 equation using creatinine, age, and sex. Performed By: #### L ABHSTI1, LIPA, HFP, IPB, CA, MGO #### [facility] (DEFAULT) [address] [place] [address] 55232 Glucose [Mass/Vol] 153 mg/dL Normal Nonfastin -179 mg/dL; Fastin-99 [facility] Comment on above: Performed By: #### L ABHSTI1, LIPA, HFP, IPB, CA, MGO #### [facility] (DEFAULT) [address] [place] [address] 29587 Osmolality [Osmolality] 300 mosm/kg Normal 278-305 [facility] Comment on above: Performed By: #### L ABHSTI1, LIPA, HFP, IPB, CA, MGO #### [facility] (DEFAULT) [address] [place] [address] 02755 Potassium [Moles/Vol] 4.6 mmol/L Normal 3.5-5.0 [facility] Comment on above: Performed By: #### L ABHSTI1, LIPA, HFP, IPB, CA, MGO #### [facility] (DEFAULT) [address] [place] [address] 97873 Sodium [Moles/Vol] 136 mmol/L Normal 135-145 [facility] Comment on above: Performed By: #### L ABHSTI1, LIPA, HFP, IPB, CA, MGO #### [facility] (DEFAULT) [address] [place] [address] 28284 Urea nitrogen [Mass/Vol] 42 mg/dL High 7-25 [facility] Comment on above: Performed By: #### L ABHSTI1, LIPA, HFP, IPB, CA, MGO #### [facility] (DEFAULT) [address] [place] [address] 39022 Urea nitrogen/Creatinine [Mass ratio] 11 mg/mg Normal [facility] Comment on above: Performed By: #### L ABHSTI1, LIPA, HFP, IPB, CA, MGO #### [facility] (DEFAULT) [address] [place] [address] 97722 GLUCOSE POCon 01-11-2025 Glucose [Mass/Vol] 168 mg/dL 70 - 179 mg/dL [facility] POC Sample Type CAPBL [facility] Test performed at address of the patient encounter. [facility] Glucose [Mass/Vol] 155 mg/dL 70 - 179 mg/dL [facility] POC Sample Type CAPBL [facility] Test performed at address of the patient encounter. [facility] MAGNESIUMon 01-11-2025 Interpretation and review of laboratory results Normal [facility] Magnesium [Mass/Vol] 1.8 mg/dL 1.6 - 2 .6 mg/dL [facility] Magnesium [Mass/Vol] 1.8 mg/dL Normal 1.6-2.6 [facility] Comment on above: Performed By: #### L ABHSTI1, LIPA, HFP, IPB, CA, MGO #### [facility] (DEFAULT) [address] [place] [address] 77651 No Panel Informationon 01-11 Interpretation and review of laboratory results Abnormal [facility] PHOSPHATE, INORGANICon 01-11 Phosphate [Mass/Vol] 5.1 mg/dL High 2.2 - 4 .6 mg/dL [facility] Phosphorous 5.1 mg/dL High 2.2-4.6 [facility] Comment on above: Performed By: #### L ABHSTI1, LIPA, HFP, IPB, CA, MGO #### [facility] (DEFAULT) [address] [place] [address] 06554 PTH INTACTon 01-11-2025 Intact PTH 256.6 pg/mL High 14.0-72.0 [facility] Comment on above: Performed By: #### L ABHSTI1, LIPA, HFP, IPB, CA, MGO #### [facility] (DEFAULT) [address] [place] [address] 26558 VITAMIN D (25-HYDROXY,TOTAL) on 01-11-2025 25-OH Vitamin D Total 28.4 ng/mL Low 30.0-100.0 [facility] Comment on above: Order Comment: Vitam in D values have been shown to be falsely decreased in lipemic samples and should be interpreted with caution. Result Comment: <10 Deficiency 10-29 Insufficiency 30-100 Optimal Level >100 Possible Toxicity Performed By: #### L ABHSTI1, LIPA, HFP, IPB, CA, MGO #### [facility] (DEFAULT) [address] [place] [address] CALCIUMon 01-10-2025 Calcium [Mass/Vol] 8.3 mg/dL Low 8.6 - 10. 5 mg/dL [facility] Calcium [Mass/Vol] 8.3 mg/dL Low 8.6-10.5 [facility] Comment on above: Performed By: #### L ABHSTI1, LIPA, HFP, IPB, CA, MGO #### [facility] (DEFAULT) [address] [place] [address] CBC,PLATELETSon 01-10-2025 Erythrocyte distribution width (RBC) [Ratio] 19.7 % High 10.9 - 14.3 % [facility] Hematocrit (Bld) [Volume fraction] 28.3 % Low 39.6 - 48.8 % [facility] Hemoglobin (Bld) [Mass/Vol] 8.9 g/dL Low 13.4 - 16.8 g/dL [facility] Interpretation and review of laboratory results Abnormal [facility] MCH (RBC) [Entitic mass] 29.9 pg 26.1 - 33.3 pg [facility] MCHC (RBC) [Mass/Vol] 31.4 g/dL Low 31.9 - 36.5 g/dL [facility] MCV (RBC) [Entitic vol] 95 fL High 79.0 - 94.5 fL [facility] Platelet mean volume (Bld) [Entitic vol] 9.6 fL 8.7 - 12.3 fL [facility] Platelets (Bld) [#/Vol] 94 10*3/uL Low 146 - 337 K/uL [facility] RBC (Bld) [#/Vol] 2.98 10*6/uL Low [facility] WBC (Bld) [#/Vol] 13.75 10*3/uL High 3.73 - 10.10 K/uL [facility] Hematocrit (Bld) [Volume fraction] 28.3 % Low 39.6-48.8 [facility] Comment on above: Performed By: #### L ABHSTI1, LIPA, HFP, IPB, CA, MGO #### [facility] (DEFAULT) [address] [place] [address] 61487 Hemoglobin (Bld) [Mass/Vol] 8.9 g/dL Low 13.4-16.8 [facility] Comment on above: Performed By: #### L ABHSTI1, LIPA, HFP, IPB, CA, MGO #### [facility] (DEFAULT) [address] [place] [address] 39895 MCV (RBC) [Entitic vol] 95.0 fL High 79.0-94.5 [facility] Comment on above: Performed By: #### L ABHSTI1, LIPA, HFP, IPB, CA, MGO #### [facility] (DEFAULT) [address] [place] [address] 48243 Mean Cell Hgb 29.9 pg Normal 26.1-33.3 [facility] Comment on above: Performed By: #### L ABHSTI1, LIPA, HFP, IPB, CA, MGO #### [facility] (DEFAULT) [address] [place] [address] 31539 Mean Cell Hgb Conc 31.4 g/dL Low 31.9-36.5 [facility] Comment on above: Performed By: #### L ABHSTI1, LIPA, HFP, IPB, CA, MGO #### [facility] (DEFAULT) [address] [place] [address] 52622 Platelet mean volume (Bld) [Entitic vol] 9.6 fL Normal 8.7-12.3 [facility] Comment on above: Performed By: #### L ABHSTI1, LIPA, HFP, IPB, CA, MGO #### [facility] (DEFAULT) [address] [place] [address] 67396 Platelets (Bld) [#/Vol] 94 10*3/uL Low 146-337 [facility] Comment on above: Performed By: #### L ABHSTI1, LIPA, HFP, IPB, CA, MGO #### [facility] (DEFAULT) [address] [place] [address] 98648 RBC (Bld) [#/Vol] 2.98 10*6/uL Low 4.38-5.83 [facility] Comment on above: Performed By: #### L ABHSTI1, LIPA, HFP, IPB, CA, MGO #### [facility] (DEFAULT) [address] [place] [address] 42651 RBC Distribution 19.7 % High 10.9-14.3 [facility] Comment on above: Performed By: #### L ABHSTI1, LIPA, HFP, IPB, CA, MGO #### [facility] (DEFAULT) [address] [place] [address] 16275 WBC (Bld) [#/Vol] 13.75 10*3/uL High 3.73-10.10 [facility] Comment on above: Performed By: #### L ABHSTI1, LIPA, HFP, IPB, CA, MGO #### [facility] (DEFAULT) [address] [place] [address] 72456 CHEM 7 (LYTES,BUN,CREA,GLUC) on 01-10-2025 Anion gap [Moles/Vol] 19 mmol/L High 7 - 17 mmol/L [facility] Chloride [Moles/Vol] 97 mmol/L Low 98 - 10 8 mmol/L [facility] CO2 [Moles/Vol] 24 mmol/L 21 - 31 mmol/L [facility] Creatinine [Mass/Vol] 4.06 mg/dL High 0.70 - 1.30 mg/dL [facility] eGFR, CKD-EPI, Male 15 Low - PINF [facility] Comment on above: Reported eGFR is bas ed on the CKD-EPI 2020 equation using creatinine, age, and sex. Glucose [Mass/Vol] 76 mg/dL 70 - 179 mg/dL [facility] Osmolality Calc [Osmolality] 300 [facility] Potassium [Moles/Vol] 4.8 mmol/L 3.5 - 5.0 mmol/L [facility] Sodium [Moles/Vol] 135 mmol/L 135 - 145 mmol/L [facility] Urea nitrogen [Mass/Vol] 58 mg/dL High 7 - 25 mg/dL [facility] Urea nitrogen/Creatinine [Mass ratio] 14 mg/mg [facility] Anion gap [Moles/Vol] 19 mmol/L High 7-17 [facility] Comment on above: Performed By: #### L ABHSTI1, LIPA, HFP, IPB, CA, MGO #### [facility] (DEFAULT) [address] [place] [address] 73997 Chloride [Moles/Vol] 97 mmol/L Low 98-108 [facility] Comment on above: Performed By: #### L ABHSTI1, LIPA, HFP, IPB, CA, MGO #### [facility] (DEFAULT) [address] [place] [address] 87567 CO2 [Moles/Vol] 24 mmol/L Normal 21-31 [facility] Comment on above: Performed By: #### L ABHSTI1, LIPA, HFP, IPB, CA, MGO #### [facility] (DEFAULT) [address] [place] [address] 17889 Creatinine [Mass/Vol] 4.06 mg/dL High 0.70-1.30 [facility] Comment on above: Performed By: #### L ABHSTI1, LIPA, HFP, IPB, CA, MGO #### [facility] (DEFAULT) [address] [place] [address] 38335 GFR/1.73 sq M.predicted among non-blacks MDRD (S/P/Bld) [Vol rate/Area] 15 mL/min/{1.73_m2} Low >=60 [facility] Comment on above: Result Comment: Repo rted eGFR is based on the CKD-EPI 2020 equation using creatinine, age, and sex. Performed By: #### L ABHSTI1, LIPA, HFP, IPB, CA, MGO #### [facility] (DEFAULT) [address] [place] [address] 84433 Glucose [Mass/Vol] 76 mg/dL Normal Nonfastin -179 mg/dL; Fastin-99 [facility] Comment on above: Performed By: #### L ABHSTI1, LIPA, HFP, IPB, CA, MGO #### [facility] (DEFAULT) [address] [place] [address] 96863 Osmolality [Osmolality] 300 mosm/kg Normal 278-305 [facility] Comment on above: Performed By: #### L ABHSTI1, LIPA, HFP, IPB, CA, MGO #### [facility] (DEFAULT) [address] [place] [address] 11384 Potassium [Moles/Vol] 4.8 mmol/L Normal 3.5-5.0 [facility] Comment on above: Performed By: #### L ABHSTI1, LIPA, HFP, IPB, CA, MGO #### [facility] (DEFAULT) [address] [place] [address] 43570 Sodium [Moles/Vol] 135 mmol/L Normal 135-145 [facility] Comment on above: Performed By: #### L ABHSTI1, LIPA, HFP, IPB, CA, MGO #### [facility] (DEFAULT) [address] [place] [address] 69759 Urea nitrogen [Mass/Vol] 58 mg/dL High 7-25 [facility] Comment on above: Performed By: #### L ABHSTI1, LIPA, HFP, IPB, CA, MGO #### [facility] (DEFAULT) [address] [place] [address] 24184 Urea nitrogen/Creatinine [Mass ratio] 14 mg/mg Normal [facility] Comment on above: Performed By: #### L ABHSTI1, LIPA, HFP, IPB, CA, MGO #### [facility] (DEFAULT) [address] [place] [address] 88646 FERRITINOrdered By: Tiarra allen on 01-10-2025 Ferritin [Mass/Vol] 3213.7 ng/mL High 10.5 - 307.3 ng/mL [facility] Interpretation and review of laboratory results Abnormal [facility] FERRITINon 01-10-2025 Ferritin [Mass/Vol] 3213.7 ng/mL High 10.5-307.3 [facility] Comment on above: Performed By: #### L ABHSTI1, LIPA, HFP, IPB, CA, MGO #### [facility] (DEFAULT) [address] [place] [address] 20966 GLUCOSE POCon 01-10-2025 Glucose [Mass/Vol] 177 mg/dL 70 - 179 mg/dL [facility] POC Sample Type CAPBL [facility] Test performed at address of the patient encounter. [facility] Glucose [Mass/Vol] 85 mg/dL 70 - 179 mg/dL [facility] POC Sample Type CAPBL [facility] Test performed at address of the patient encounter. [facility] Glucose [Mass/Vol] 81 mg/dL 70 - 179 mg/dL [facility] POC Sample Type CAPBL [facility] Test performed at address of the patient encounter. [facility] HEPATIC FUNCTION PANELon 06- 18-2025 Albumin [Mass/Vol] 3 g/dL Low 3.5 - 5.0 g/dL [facility] ALP [Catalytic activity/Vol] 50 U/L 32 - 126 U/L [facility] ALT [Catalytic activity/Vol] 16 U/L 10 - 52 U/L [facility] AST [Catalytic activity/Vol] 31 U/L 10 - 39 U/L [facility] Bilirubin [Mass/Vol] 0.8 mg/dL NINF - 1.5 mg/dL [facility] Bilirubin.direct [Mass/Vol] 0.1 mg/dL NINF - 0.3 mg/dL [facility] Protein [Mass/Vol] 5.6 g/dL Low 6.4 - 8.3 g/dL [facility] Albumin [Mass/Vol] 3.0 g/dL Low 3.5-5.0 [facility] Comment on above: Performed By: #### L ABHSTI1, LIPA, HFP, IPB, CA, MGO #### [facility] (DEFAULT) [address] [place] [address] 20692 ALP [Catalytic activity/Vol] 50 U/L Normal 32-126 [facility] Comment on above: Performed By: #### L ABHSTI1, LIPA, HFP, IPB, CA, MGO #### [facility] (DEFAULT) [address] [place] [address] [phone] ALT [Catalytic activity/Vol] 16 U/L Normal 10-52 [facility] Comment on above: Performed By: #### L ABHSTI1, LIPA, HFP, IPB, CA, MGO #### [facility] (DEFAULT) [address] [place] [address] 52419 AST [Catalytic activity/Vol] 31 U/L Normal 10-39 [facility] Comment on above: Performed By: #### L ABHSTI1, LIPA, HFP, IPB, CA, MGO #### [facility] (DEFAULT) [address] [place] [address] 09464 Bilirubin [Mass/Vol] 0.8 mg/dL Normal <1.5 [facility] Comment on above: Performed By: #### L ABHSTI1, LIPA, HFP, IPB, CA, MGO #### [facility] (DEFAULT) [address] [place] [address] 67789 Bilirubin.indirect [Mass/Vol] 0.1 mg/dL Normal <0.3 [facility] Comment on above: Performed By: #### L ABHSTI1, LIPA, HFP, IPB, CA, MGO #### [facility] (DEFAULT) [address] [place] [address] 96209 Protein [Mass/Vol] 5.6 g/dL Low 6.4-8.3 [facility] Comment on above: Performed By: #### L ABHSTI1, LIPA, HFP, IPB, CA, MGO #### [facility] (DEFAULT) [address] [place] [address] 22144 IRON/IRON BINDING/TRANSFERRI Non 01-10-2025 Interpretation and review of laboratory results Abnormal [facility] Iron [Mass/Vol] 41 ug/dL [facility] Iron binding capacity [Mass/Vol] 151 Low [facility] Iron saturation [Mass fraction] 27 % 20 - 55 % [facility] Transferrin [Mass/Vol] 121 mg/dL Low 200 - 400 mg/dL [facility] Iron [Mass/Vol] 41 ug/dL Normal 40-174 [facility] Comment on above: Performed By: #### L ABHSTI1, LIPA, HFP, IPB, CA, MGO #### [facility] (DEFAULT) [address] [place] [address] 71120 Iron Saturation 27 % Normal 20-55 [facility] Comment on above: Performed By: #### L ABHSTI1, LIPA, HFP, IPB, CA, MGO #### [facility] (DEFAULT) [address] [place] [address] 64680 Total Iron Binding Capacity 151 mcg/dL Low 250-425 [facility] Comment on above: Performed By: #### L ABHSTI1, LIPA, HFP, IPB, CA, MGO #### [facility] (DEFAULT) [address] [place] [address] Transferrin [Mass/Vol] 121 mg/dL Low 200-400 [facility] Comment on above: Performed By: #### L ABHSTI1, LIPA, HFP, IPB, CA, MGO #### [facility] (DEFAULT) [address] [place] [address] 56445 MAGNESIUMon 01-10-2025 Interpretation and review of laboratory results Normal [facility] Magnesium [Mass/Vol] 1.8 mg/dL 1.6 - 2 .6 mg/dL [facility] Magnesium [Mass/Vol] 1.8 mg/dL Normal 1.6-2.6 [facility] Comment on above: Performed By: #### L ABHSTI1, LIPA, HFP, IPB, CA, MGO #### [facility] (DEFAULT) [address] [place] [address] 25074 NT-PRO B-TYPE NATRIURETIC PE PTIDEOrdered By: Roderick Mcmillan on 01-10-2025 Interpretation and review of laboratory results Abnormal [facility] Natriuretic peptide.B prohormone N-Terminal IA [Mass/Vol] 372030 pg/mL High NINF - 540 pg/mL [facility] NT-PRO B-TYPE NATRIURETIC PE PTIDEon 01-10-2025 Natriuretic peptide B (Bld) [Mass/Vol] 309707 pg/mL High <=540 [facility] Comment on above: Performed By: #### L ABHSTI1, LIPA, HFP, IPB, CA, MGO #### [facility] (DEFAULT) [address] [place] [address] 26602 No Panel Informationon 01-10 [facility] Interpretation and review of laboratory results Abnormal [facility] PHOSPHATE, INORGANICon 01-10 Phosphate [Mass/Vol] 6.5 mg/dL High 2.2 - 4 .6 mg/dL [facility] Phosphorous 6.5 mg/dL High 2.2-4.6 [facility] Comment on above: Performed By: #### L ABHSTI1, LIPA, HFP, IPB, CA, MGO #### [facility] (DEFAULT) [address] [place] [address] 95663 URIC ACIDon 01-10-2025 Interpretation and review of laboratory results Normal [facility] Urate [Mass/Vol] 4.1 mg/dL 3.5 - 7.0 mg/dL [facility] Urate [Mass/Vol] 4.1 mg/dL Normal 3.5-7.0 [facility] Comment on above: Performed By: #### L ABHSTI1, LIPA, HFP, IPB, CA, MGO #### [facility] (DEFAULT) [address] [place] [address] 01569 URINE CULTUREon 01-10-2025 Bacteria identified Cx Nom (Unsp spec) No Growth [facility] US.doppler Lower extremity v ein - bilateralOrdered By: Jossue Pennington on 01-10-2025 [facility] Work Phone: US.doppler Lower extremity v ein - bilateralon 01-10-2025 Radiology Study observation (narrative) [facility] CALCIUMon 01-09-2025 Calcium [Mass/Vol] 8.1 mg/dL Low 8.6 - 10. 5 mg/dL [facility] Calcium [Mass/Vol] 8.1 mg/dL Low 8.6-10.5 [facility] Comment on above: Performed By: #### L ABHSTI1, LIPA, HFP, IPB, CA, MGO #### [facility] (DEFAULT) [address] [place] [address] 11578 CBC,PLATELETSon 01-09-2025 Erythrocyte distribution width (RBC) [Ratio] 19.6 % High 10.9 - 14.3 % [facility] Hematocrit (Bld) [Volume fraction] 28.2 % Low 39.6 - 48.8 % [facility] Hemoglobin (Bld) [Mass/Vol] 8.9 g/dL Low 13.4 - 16.8 g/dL [facility] Interpretation and review of laboratory results Abnormal [facility] MCH (RBC) [Entitic mass] 29.6 pg 26.1 - 33.3 pg [facility] MCHC (RBC) [Mass/Vol] 31.6 g/dL Low 31.9 - 36.5 g/dL [facility] MCV (RBC) [Entitic vol] 93.7 fL 79.0 - 94.5 fL [facility] Platelet mean volume (Bld) [Entitic vol] 8.8 fL 8.7 - 12.3 fL [facility] Comment on above: This is an appended report. These results have been appended to a previously preliminary verified report. Platelets (Bld) [#/Vol] 113 10*3/uL Low 146 - 337 K/uL [facility] Comment on above: This is an appended report. These results have been appended to a previously preliminary verified report. RBC (Bld) [#/Vol] 3.01 10*6/uL Low [facility] WBC (Bld) [#/Vol] 11.45 10*3/uL High 3.73 - 10.10 K/uL [facility] Hematocrit (Bld) [Volume fraction] 28.2 % Low 39.6-48.8 [facility] Comment on above: Performed By: #### L KARTIK1, LIPA, HFP, IPB, CA, MGO #### [facility] (DEFAULT) [address] [place] [address] 84252 Hemoglobin (Bld) [Mass/Vol] 8.9 g/dL Low 13.4-16.8 [facility] Comment on above: Performed By: #### L ABHSTI1, LIPA, HFP, IPB, CA, MGO #### [facility] (DEFAULT) [address] [place] [address] 70866 MCV (RBC) [Entitic vol] 93.7 fL Normal 79.0-94.5 [facility] Comment on above: Performed By: #### L ABHSTI1, LIPA, HFP, IPB, CA, MGO #### [facility] (DEFAULT) [address] [place] [address] 71091 Mean Cell Hgb 29.6 pg Normal 26.1-33.3 [facility] Comment on above: Performed By: #### L ABHSTI1, LIPA, HFP, IPB, CA, MGO #### [facility] (DEFAULT) [address] [place] [address] 27644 Mean Cell Hgb Conc 31.6 g/dL Low 31.9-36.5 [facility] Comment on above: Performed By: #### L ABHSTI1, LIPA, HFP, IPB, CA, MGO #### [facility] (DEFAULT) [address] [place] [address] 78628 Platelet mean volume (Bld) [Entitic vol] 8.8 fL Normal 8.7-12.3 [facility] Comment on above: Result Comment: This is an appended report. These results have been appended to a previously preliminary verified report. Performed By: #### L ABHSTI1, LIPA, HFP, IPB, CA, MGO #### [facility] (DEFAULT) [address] [place] [address] 79013 Platelets (Bld) [#/Vol] 113 10*3/uL Low 146-337 [facility] Comment on above: Result Comment: This is an appended report. These results have been appended to a previously preliminary verified report. Performed By: #### L ABHSTI1, LIPA, HFP, IPB, CA, MGO #### [facility] (DEFAULT) [address] [place] [address] 76456 RBC (Bld) [#/Vol] 3.01 10*6/uL Low 4.38-5.83 [facility] Comment on above: Performed By: #### L ABHSTI1, LIPA, HFP, IPB, CA, MGO #### [facility] (DEFAULT) [address] [place] [address] RBC Distribution 19.6 % High 10.9-14.3 [facility] Comment on above: Performed By: #### L ABHSTI1, LIPA, HFP, IPB, CA, MGO #### [facility] (DEFAULT) [address] [place] [address] 33864 WBC (Bld) [#/Vol] 11.45 10*3/uL High 3.73-10.10 [facility] Comment on above: Performed By: #### L ABHSTI1, LIPA, HFP, IPB, CA, MGO #### [facility] (DEFAULT) [address] [place] [address] 96898 CHEM 7 (LYTES,BUN,CREA,GLUC) on 01-09-2025 Anion gap [Moles/Vol] 16 mmol/L 7 - 17 mmol/L [facility] Chloride [Moles/Vol] 97 mmol/L Low 98 - 10 8 mmol/L [facility] CO2 [Moles/Vol] 28 mmol/L 21 - 31 mmol/L [facility] Creatinine [Mass/Vol] 4.95 mg/dL High 0.70 - 1.30 mg/dL [facility] eGFR, CKD-EPI, Male 12 Low - PINF [facility] Comment on above: Reported eGFR is bas ed on the CKD-EPI 2020 equation using creatinine, age, and sex. Glucose [Mass/Vol] 58 mg/dL Low 70 - 179 mg/dL [facility] Osmolality Calc [Osmolality] 308 High [facility] Potassium [Moles/Vol] 4.2 mmol/L 3.5 - 5.0 mmol/L [facility] Sodium [Moles/Vol] 137 mmol/L 135 - 145 mmol/L [facility] Urea nitrogen [Mass/Vol] 78 mg/dL High 7 - 25 mg/dL [facility] Urea nitrogen/Creatinine [Mass ratio] 16 mg/mg [facility] Anion gap [Moles/Vol] 16 mmol/L Normal 7-17 [facility] Comment on above: Performed By: #### L ABHSTI1, LIPA, HFP, IPB, CA, MGO #### [facility] (DEFAULT) [address] [place] [phone] Chloride [Moles/Vol] 97 mmol/L Low 98-108 [facility] Comment on above: Performed By: #### L ABHSTI1, LIPA, HFP, IPB, CA, MGO #### [facility] (DEFAULT) [address] [place] [phone] CO2 [Moles/Vol] 28 mmol/L Normal 21-31 [facility] Comment on above: Performed By: #### L ABHSTI1, LIPA, HFP, IPB, CA, MGO #### [facility] (DEFAULT) [address] [place] [phone] Creatinine [Mass/Vol] 4.95 mg/dL High 0.70-1.30 [facility] Comment on above: Performed By: #### L ABHSTI1, LIPA, HFP, IPB, CA, MGO #### [facility] (DEFAULT) [address] [place] [phone] GFR/1.73 sq M.predicted among non-blacks MDRD (S/P/Bld) [Vol rate/Area] 12 mL/min/{1.73_m2} Low >=60 [facility] Comment on above: Result Comment: Repo rted eGFR is based on the CKD-EPI 2020 equation using creatinine, age, and sex. Performed By: #### L ABHSTI1, LIPA, HFP, IPB, CA, MGO #### [facility] (DEFAULT) [address] [place] [phone] Glucose [Mass/Vol] 58 mg/dL Low Nonfastin -179 mg/dL; Fastin-99 [facility] Comment on above: Performed By: #### L ABHSTI1, LIPA, HFP, IPB, CA, MGO #### [facility] (DEFAULT) [address] [place] [address] Osmolality [Osmolality] 308 mosm/kg High 278-305 [facility] Comment on above: Performed By: #### L ABHSTI1, LIPA, HFP, IPB, CA, MGO #### [facility] (DEFAULT) [address] [place] [address] Potassium [Moles/Vol] 4.2 mmol/L Normal 3.5-5.0 [facility] Comment on above: Performed By: #### L ABHSTI1, LIPA, HFP, IPB, CA, MGO #### [facility] (DEFAULT) [address] [place] [address] Sodium [Moles/Vol] 137 mmol/L Normal 135-145 [facility] Comment on above: Performed By: #### L ABHSTI1, LIPA, HFP, IPB, CA, MGO #### [facility] (DEFAULT) [address] [place] [phone] Urea nitrogen [Mass/Vol] 78 mg/dL High 7-25 [facility] Comment on above: Performed By: #### L ABHSTI1, LIPA, HFP, IPB, CA, MGO #### [facility] (DEFAULT) [address] [place] [phone] Urea nitrogen/Creatinine [Mass ratio] 16 mg/mg Normal [facility] Comment on above: Performed By: #### L ABHSTI1, LIPA, HFP, IPB, CA, MGO #### [facility] (DEFAULT) [address] [place] [address] ABDOMEN/ABDOMEN-PELVIS (I NTERPRETATION - OUTSIDE IMAGE)on 01-09-2025 CT ABDOMEN/ABDOMEN-PELVIS (INTERPRETATION - OUTSIDE IMAGE) EXAM: CT ABDOMEN/ABDOMEN-PELVIS (INTERPRETATION - OUTSIDE IMAGE), 01/09/2025 18:02 PM DATE- OUTSIDE STUDY PERFORMED: January 08, 2025 COMPARISON: CT ABDOMEN (OUTSIDE IMAGE) January 08, 2025, CT ABDOMEN (OUTSIDE IMAGE) October 04, 2024 CLINICAL INDICATIONS: Reason for Exam:->evaluate if tumor thrombus is true VTE DISCLAIMER: This is an interpretation of images obtained at an outside imaging facility. This report refers only to the anatomic area or body part in the study description, as requested. STUDY DESCRIPTION: CT abdomen and pelvis with contrast TECHNIQUE: CT images of the abdomen and pelvis were performed following the administration of intravenous contrast. FINDINGS: Lung Bases: Please see dedicated chest CT scan of the same date for full description of the intra-thoracic contents. Liver: Normal. No suspicious lesion. Gallbladder: Normal. Bile Ducts: Normal in caliber. Spleen: Normal. Pancreas: Mildly atrophic without main duct dilation. Slightly decreased size of the hypoenhancing lesions along the pancreatic body and tail. For example the pancreatic body lesion measures 3.4 x 3.1 cm (series 3 image 30), previously 4.0 x 3.7 cm. Adrenals: Normal right adrenal. Left adrenalectomy. Right Kidney: Large mass invading the kidney diffusely with most significant involvement in the upper pole and renal pelvis. This may be a conglomerate of the lesions seen on prior imaging and measures approximately 11.1 x 9.3 cm (series 3 image 44). The largest portion previously measured 7.0 x 7.1 cm. There is invasion of the collecting system to at least the ureteropelvic junction. There is likely invasion of the perinephric tissues and Gerota's fascia. Large tortuous right renal segmental veins. The main right renal vein is patent. Left Kidney: Absent. No new nodularity along the surgical bed. Gastrointestinal: Normal bowel caliber and wall thickness. Normal appendix. Peritoneum/retroperito neum: No ascites. Decreased size of the right perinephric deposits measuring 2.4 x 2.1 cm (series 3 image 58), previously 3.1 x 2.7 cm. Lymph nodes: Interval progression of widespread metastatic adenopathy throughout the retroperitoneum and upper abdomen. For example a new retrocaval node measures 2.4 cm x 2.3 cm (series 3, image 51). Vasculature: Atherosclerosis without aortic aneurysm. Patent celiac and superior mesenteric arteries. Patent portal, splenic, and superior mesenteric veins. Infrarenal IVC is now well opacified due to contrast phase/timing. There is some mixing artifact without definite thrombus. The iliac and femoral veins are not opacified. Bladder: Not distended, limiting evaluation. Pelvic Organs: Normal. Body Wall: Rectus diastases. Body wall edema. Sarcopenia. Bones: Right hip arthroplasty. Multilevel degenerative changes of the spine. No aggressive lesion. IMPRESSION: 1. Increased large invasive right renal mass, which may be a conglomerate of lesions. Invasion of the renal pelvis and collecting system. 2. No visible thrombus/tumor thrombus. Right renal vein is patent and infrarenal IVC is not opacified likely as a result of contrast timing. 3. Mixed response with decreased size of pancreatic and right retroperitoneal metastases. Increased size of metastatic lymph nodes. Normal [facility] CT Abdomen and Pelvison 12-24 IMPRESSION: 1. Increased large invasive right renal mass, which may be a conglomerate of lesions. Invasion of the renal pelvis and collecting system. 2. No visible thrombus/tumor thrombus. Right renal vein is patent and infrarenal IVC is not opacified likely as a result of contrast timing. 3. Mixed response with decreased size of pancreatic and right retroperitoneal metastases. Increased size of metastatic lymph nodes. OLOGY EXAM: CT ABDOMEN/ABDOMEN-PELVIS (INTERPRETATION - OUTSIDE IMAGE), 01/09/2025 18:02 PM DATE- OUTSIDE STUDY PERFORMED: January 08, 2025 COMPARISON: CT ABDOMEN (OUTSIDE IMAGE) January 08, 2025, CT ABDOMEN (OUTSIDE IMAGE) October 04, 2024 CLINICAL INDICATIONS: Reason for Exam:->evaluate if tumor thrombus is true VTE DISCLAIMER: This is an interpretation of images obtained at an outside imaging facility. This report refers only to the anatomic area or body part in the study description, as requested. STUDY DESCRIPTION: CT abdomen and pelvis with contrast TECHNIQUE: CT images of the abdomen and pelvis were performed following the administration of intravenous contrast. FINDINGS: Lung Bases: Please see dedicated chest CT scan of the same date for full description of the intra-thoracic contents. Liver: Normal. No suspicious lesion. Gallbladder: Normal. Bile Ducts: Normal in caliber. Spleen: Normal. Pancreas: Mildly atrophic without main duct dilation. Slightly decreased size of the hypoenhancing lesions along the pancreatic body and tail. For example the pancreatic body lesion measures 3.4 x 3.1 cm (series 3 image 30), previously 4.0 x 3.7 cm. Adrenals: Normal right adrenal. Left adrenalectomy. Right Kidney: Large mass invading the kidney diffusely with most significant involvement in the upper pole and renal pelvis. This may be a conglomerate of the lesions seen on prior imaging and measures approximately 11.1 x 9.3 cm (series 3 image 44). The largest portion previously measured 7.0 x 7.1 cm. There is invasion of the collecting system to at least the ureteropelvic junction. There is likely invasion of the perinephric tissues and Gerota's fascia. Large tortuous right renal segmental veins. The main right renal vein is patent. Left Kidney: Absent. No new nodularity along the surgical bed. Gastrointestinal: Normal bowel caliber and wall thickness. Normal appendix. Peritoneum/retroperito neum: No ascites. Decreased size of the right perinephric deposits measuring 2.4 x 2.1 cm (series 3 image 58), previously 3.1 x 2.7 cm. Lymph nodes: Interval progression of widespread metastatic adenopathy throughout the retroperitoneum and upper abdomen. For example a new retrocaval node measures 2.4 cm x 2.3 cm (series 3, image 51). Vasculature: Atherosclerosis without aortic aneurysm. Patent celiac and superior mesenteric arteries. Patent portal, splenic, and superior mesenteric veins. Infrarenal IVC is now well opacified due to contrast phase/timing. There is some mixing artifact without definite thrombus. The iliac and femoral veins are not opacified. Bladder: Not distended, limiting evaluation. Pelvic Organs: Normal. Body Wall: Rectus diastases. Body wall edema. Sarcopenia. Bones: Right hip arthroplasty. Multilevel degenerative changes of the spine. No aggressive lesion. RADIOLOGY Rahul Ramírez MD - 01/09/2025 EXAM: CT ABDOMEN/ABDOMEN-PELVIS (INTERPRETATION - OUTSIDE IMAGE), 01/09/2025 18:02 PM DATE- OUTSIDE STUDY PERFORMED: January 08, 2025 COMPARISON: CT ABDOMEN (OUTSIDE IMAGE) January 08, 2025, CT ABDOMEN (OUTSIDE IMAGE) October 04, 2024 CLINICAL INDICATIONS: Reason for Exam:->evaluate if tumor thrombus is true VTE DISCLAIMER: This is an interpretation of images obtained at an outside imaging facility. This report refers only to the anatomic area or body part in the study description, as requested. STUDY DESCRIPTION: CT abdomen and pelvis with contrast TECHNIQUE: CT images of the abdomen and pelvis were performed following the administration of intravenous contrast. FINDINGS: Lung Bases: Please see dedicated chest CT scan of the same date for full description of the intra-thoracic contents. Liver: Normal. No suspicious lesion. Gallbladder: Normal. Bile Ducts: Normal in caliber. Spleen: Normal. Pancreas: Mildly atrophic without main duct dilation. Slightly decreased size of the hypoenhancing lesions along the pancreatic body and tail. For example the pancreatic body lesion measures 3.4 x 3.1 cm (series 3 image 30), previously 4.0 x 3.7 cm. Adrenals: Normal right adrenal. Left adrenalectomy. Right Kidney: Large mass invading the kidney diffusely with most significant involvement in the upper pole and renal pelvis. This may be a conglomerate of the lesions seen on prior imaging and measures approximately 11.1 x 9.3 cm (series 3 image 44). The largest portion previously measured 7.0 x 7.1 cm. There is invasion of the collecting system to at least the ureteropelvic junction. There is likely invasion of the perinephric tissues and Gerota's fascia. Large tortuous right renal segmental veins. The main right renal vein is patent. Left Kidney: Absent. No new nodularity along the surgical bed. Gastrointestinal: Normal bowel caliber and wall thickness. Normal appendix. Peritoneum/retroperito neum: No ascites. Decreased size of the right perinephric deposits measuring 2.4 x 2.1 cm (series 3 image 58), previously 3.1 x 2.7 cm. Lymph nodes: Interval progression of widespread metastatic adenopathy throughout the retroperitoneum and upper abdomen. For example a new retrocaval node measures 2.4 cm x 2.3 cm (series 3, image 51). Vasculature: Atherosclerosis without aortic aneurysm. Patent celiac and superior mesenteric arteries. Patent portal, splenic, and superior mesenteric veins. Infrarenal IVC is now well opacified due to contrast phase/timing. There is some mixing artifact without definite thrombus. The iliac and femoral veins are not opacified. Bladder: Not distended, limiting evaluation. Pelvic Organs: Normal. Body Wall: Rectus diastases. Body wall edema. Sarcopenia. Bones: Right hip arthroplasty. Multilevel degenerative changes of the spine. No aggressive lesion. IMPRESSION IMPRESSION: 1. Increased large invasive right renal mass, which may be a conglomerate of lesions. Invasion of the renal pelvis and collecting system. 2. No visible thrombus/tumor thrombus. Right renal vein is patent and infrarenal IVC is not opacified likely as a result of contrast timing. 3. Mixed response with decreased size of pancreatic and right retroperitoneal metastases. Increased size of metastatic lymph nodes. [facility] Radiology Study observation (narrative) [facility] CT Abdomen and PelvisOrdered By: Rahul Ramírez on 01-09-2025 [facility] Chronic hepatitis differenti ation between hepatitis B and C virus panelon 01-09-2025 HBV core IgG+IgM Ql (S) Negative Negative [facility] HBV surface Ab IA Ql (S) Negative Negative [facility] HCV Ab Ql (S) Negative Negative [facility] Interpretation and review of laboratory results Normal [facility] DIALYSIS HEP PANEL-CHRONICon 01-09-2025 Hep B Core Ab,Total (IgG+IgM) Negative Normal Negative [facility] Comment on above: Performed By: #### L ABHSTI1, LIPA, HFP, IPB, CA, MGO #### [facility] (DEFAULT) [address] [place] [address] Hep B Surface Ab Negative Normal Negative [facility] Comment on above: Performed By: #### L ABHSTI1, LIPA, HFP, IPB, CA, MGO #### [facility] (DEFAULT) [address] [address] Hepatitis C Antibody Negative Normal Negative [facility] Comment on above: Performed By: #### L ABHSTI1, LIPA, HFP, IPB, CA, MGO #### [facility] (DEFAULT) [address] [place] [address] EXTRA MICROon 01-09-2025 [facility] GENERAL PROCEDUREon 01-10-20 Pascual Hale MD - 01/09/2025 4:39 PM EDT Hemodialysis Note: Patient seen on HD Ix: Clearance and Volume UF (kg): 2L K (meq): 3mEq Filter: Optiflux BFR (ml/min): 400 DFR (ml/min): 800 Access: AVF Wt Readings from Last 3 Encounters: 01/09/25 112.5 kg (248 lb 0.3 oz) 12/29/24 105.7 kg (233 lb) 12/28/24 105.7 kg (233 lb) Temp Readings from Last 3 Encounters: 01/09/25 97.2 F (36.2 C) (Oral) 01/08/25 97.4 F (36.3 C) (Oral) 12/29/24 97.9 F (36.6 C) (Infrared) BP Readings from Last 3 Encounters: 01/09/25 144/70 01/09/25 175/87 12/29/24 148/69 Pulse Readings from Last 3 Encounters: 01/09/25 66 01/09/25 77 12/29/24 84 Diagnosis addressed: ESRD on Hemodialysis Patient tolerating HD well but not getting the UF we wanted and BUN quite high so will plan on dialysis again tomorrow which is also his normal HD day. Pascual Hale MD Nephrology Attending [facility] Radiology Study observation (narrative) [facility] GLUCOSE POCon 01-09-2025 Glucose [Mass/Vol] 228 mg/dL High 70 - 179 mg/dL [facility] Interpretation and review of laboratory results Abnormal [facility] POC Sample Type CAPBL [facility] Test performed at address of the patient encounter. [facility] Glucose [Mass/Vol] 229 mg/dL High 70 - 179 mg/dL [facility] Interpretation and review of laboratory results Abnormal [facility] POC Sample Type CAPBL [facility] Test performed at address of the patient encounter. [facility] Glucose [Mass/Vol] 103 mg/dL 70 - 179 mg/dL [facility] POC Sample Type CAPBL [facility] Test performed at address of the patient encounter. [facility] Glucose [Mass/Vol] 93 mg/dL 70 - 179 mg/dL [facility] POC Sample Type [facility] Test performed at address of the patient encounter. [facility] Glucose [Mass/Vol] 73 mg/dL 70 - 179 mg/dL [facility] Glucose [Mass/Vol] 99 mg/dL 70 - 179 mg/dL [facility] Glucose [Mass/Vol] 83 mg/dL 70 - 179 mg/dL [facility] Comment on above: Notified RNread back POC Sample Type [facility] Test performed at address of the patient encounter. [facility] Glucose [Mass/Vol] 60 mg/dL Low 70 - 179 mg/dL [facility] Comment on above: Notified RNread back Interpretation and review of laboratory results Abnormal [facility] POC Sample Type [facility] Test performed at address of the patient encounter. [facility] Glucose [Mass/Vol] 80 mg/dL 70 - 179 mg/dL [facility] POC Sample Type CAPBL [facility] Test performed at address of the patient encounter. [facility] Glucose [Mass/Vol] 77 mg/dL 70 - 179 mg/dL [facility] POC Sample Type CAPBL [facility] Test performed at address of the patient encounter. [facility] Glucose [Mass/Vol] 68 mg/dL Low 70 - 179 mg/dL [facility] Interpretation and review of laboratory results Abnormal [facility] POC Sample Type CAPBL [facility] Test performed at address of the patient encounter. [facility] Glucose [Mass/Vol] 100 mg/dL 70 - 179 mg/dL [facility] POC Sample Type CAPBL [facility] Test performed at address of the patient encounter. [facility] Glucose [Mass/Vol] 76 mg/dL 70 - 179 mg/dL [facility] POC Sample Type CAPBL [facility] Test performed at address of the patient encounter. [facility] Glucose [Mass/Vol] 88 mg/dL 70 - 179 mg/dL [facility] POC Sample Type CAPBL [facility] Test performed at address of the patient encounter. [facility] Glucose [Mass/Vol] 73 mg/dL 70 - 179 mg/dL [facility] POC Sample Type CAPBL [facility] Test performed at address of the patient encounter. [facility] HEP B SURFACE AG-STATOrdered By: Shanika Real on 01-09-2025 HBV surface Ag Ql (S) Negative Negative [facility] Interpretation and review of laboratory results Normal [facility] HEP B SURFACE AG-Samia 12-24 Hepatitis B Surface Ag-Stat Negative Normal Negative [facility] Comment on above: Performed By: #### L ABHSTI1, LIPA, HFP, IPB, CA, MGO #### [facility] (DEFAULT) [address] [place] [address] MAGNESIUMon 01-09-2025 Interpretation and review of laboratory results Normal [facility] Magnesium [Mass/Vol] 1.9 mg/dL 1.6 - 2 .6 mg/dL [facility] Magnesium [Mass/Vol] 1.9 mg/dL Normal 1.6-2.6 [facility] Comment on above: Performed By: #### L ABMORENOTI1, LIPA, HFP, IPB, CA, MGO #### [facility] (DEFAULT) [address] [place] [address] NT-PRO B-TYPE NATRIURETIC PE PTIDEOrdered By: Opal Rizzo on 01-09-2025 Interpretation and review of laboratory results Abnormal [facility] Natriuretic peptide.B prohormone N-Terminal IA [Mass/Vol] 495747 pg/mL High NINF - 540 pg/mL [facility] NT-PRO B-TYPE NATRIURETIC PE PTIDEon 01-09-2025 Natriuretic peptide B (Bld) [Mass/Vol] 910365 pg/mL High <=540 [facility] Comment on above: Performed By: #### L DORITA, LIPA, HFP, IPB, CA, MGO #### [facility] (DEFAULT) [address] [place], [place] [id number] No Panel Informationon 01-09 POC Sample Type VENO [facility] Test performed at address of the patient encounter. [facility] Interpretation and review of laboratory results Abnormal [facility] PHOSPHATE, INORGANICon 01-09 Phosphate [Mass/Vol] 6.1 mg/dL High 2.2 - 4 .6 mg/dL [facility] Phosphorous 6.1 mg/dL High 2.2-4.6 [facility] Comment on above: Performed By: #### L ABHSTI1, LIPA, HFP, IPB, CA, MGO #### [facility] (DEFAULT) [address] [place] [address] URINALYSIS REFLEX TO CULTURE PERFORMABLEOrdered By: Quang Bejarano on 01-09-2025 Appearance (U) Turbid Abnormal Clear [facility] Comment on above: Results may be inacc urate due to color interference. Clinical correlation recommended. Bacteria LM Ql (Urine sed) TRACE Abnormal ABSENT [facility] Color (U) Red Abnormal Yellow [facility] Comment on above: Results may be inacc urate due to color interference. Clinical correlation recommended. Epithelial cells.squamous LM Ql (Urine sed) 3-5/hpf = 1+ 0-2/hpf, 3-5/hpf = 1+ [facility] Glucose Test strip (U) [Mass/Vol] Negative Negative [facility] Comment on above: Results may be inacc urate due to color interference. Clinical correlation recommended. Interpretation and review of laboratory results Abnormal [facility] Ketones (U) [Mass/Vol] Negative Negative [facility] Comment on above: Results may be inacc urate due to color interference. Clinical correlation recommended. Leukocyte esterase Test strip Ql (U) Large Abnormal Negative [facility] Comment on above: Results may be inacc urate due to color interference. Clinical correlation recommended. Nitrite Ql (U) Positive Abnormal Negative [facility] Comment on above: Results may be inacc urate due to color interference. Clinical correlation recommended. pH (U) 6.0 [pH] 5.0 - 7.0 [facility] Comment on above: Results may be inacc urate due to color interference. Clinical correlation recommended. Protein (U) [Mass/Vol] 100 mg/dL Abnormal Negative [facility] Comment on above: Results may be inacc urate due to color interference. Clinical correlation recommended. RBC (U) [#/Vol] Moderate Abnormal Negative [facility] Comment on above: Results may be inacc urate due to color interference. Clinical correlation recommended. RBC LM.HPF (Urine sed) [#/Area] /[HPF] Abnormal [facility] Specific gravity (U) [Rel density] 1.018 1.001 - 1.035 [facility] Comment on above: Results may be inacc urate due to color interference. Clinical correlation recommended. Urobilinogen (U) [Mass/Vol] 0.2 E.U./dL 0.2 E.U/dL, 1.0 E.U/dL [facility] Comment on above: Results may be inacc urate due to color interference. Clinical correlation recommended. WBC LM.HPF (Urine sed) [#/Area] /[HPF] [facility] URINALYSIS REFLEX TO CULTURE PERFORMABLEon 01-09-2025 Appearance (U) Turbid Abnormal Clear [facility] Comment on above: Order Comment: For i ndwelling catheters, specimen collection is acceptable on catheter day 1 and 2 only. ? Result Comment: Resu lts may be inaccurate due to color interference. Clinical correlation recommended. Performed By: #### L ABHSTI1, LIPA, HFP, IPB, CA, MGO #### [facility] (DEFAULT) [address] [place] [address] 83670 Bacteria TRACE Abnormal ABSENT [facility] Comment on above: Order Comment: For i ndwelling catheters, specimen collection is acceptable on catheter day 1 and 2 only. ? Performed By: #### L ABHSTI1, LIPA, HFP, IPB, CA, MGO #### [facility] (DEFAULT) [address] [place] [address] 83025 Blood Urine Moderate Abnormal Negative [facility] Comment on above: Order Comment: For i ndwelling catheters, specimen collection is acceptable on catheter day 1 and 2 only. ? Result Comment: Resu lts may be inaccurate due to color interference. Clinical correlation recommended. Performed By: #### L ABHSTI1, LIPA, HFP, IPB, CA, MGO #### [facility] (DEFAULT) [address] [place] [address] 79934 Color (U) Red Abnormal Yellow [facility] Comment on above: Order Comment: For i ndwelling catheters, specimen collection is acceptable on catheter day 1 and 2 only. ? Result Comment: Resu lts may be inaccurate due to color interference. Clinical correlation recommended. Performed By: #### L ABHSTI1, LIPA, HFP, IPB, CA, MGO #### [facility] (DEFAULT) [address] [place] [address] 32722 Glucose Ql (U) Negative Normal Negative [facility] Comment on above: Order Comment: For i ndwelling catheters, specimen collection is acceptable on catheter day 1 and 2 only. ? Result Comment: Resu lts may be inaccurate due to color interference. Clinical correlation recommended. Performed By: #### L ABHSTI1, LIPA, HFP, IPB, CA, MGO #### [facility] (DEFAULT) [address] [place] [address] 48542 Ketones Ql (U) Negative Normal Negative [facility] Comment on above: Order Comment: For i ndwelling catheters, specimen collection is acceptable on catheter day 1 and 2 only. ? Result Comment: Resu lts may be inaccurate due to color interference. Clinical correlation recommended. Performed By: #### L ABHSTI1, LIPA, HFP, IPB, CA, MGO #### [facility] (DEFAULT) [address] [place] [address] 66024 Leukocyte esterase Test strip Ql (U) Large Abnormal Negative [facility] Comment on above: Order Comment: For i ndwelling catheters, specimen collection is acceptable on catheter day 1 and 2 only. ? Result Comment: Resu lts may be inaccurate due to color interference. Clinical correlation recommended. Performed By: #### L ABHSTI1, LIPA, HFP, IPB, CA, MGO #### [facility] (DEFAULT) [address] [place] [address] 82660 Nitrites Urine Positive Abnormal Negative [facility] Comment on above: Order Comment: For i ndwelling catheters, specimen collection is acceptable on catheter day 1 and 2 only. ? Result Comment: Resu lts may be inaccurate due to color interference. Clinical correlation recommended. Performed By: #### L ABHSTI1, LIPA, HFP, IPB, CA, MGO #### [facility] (DEFAULT) [address] [place] [address] 59115 pH (U) 6.0 [pH] Normal 5.0-7.0 [facility] Comment on above: Order Comment: For i ndwelling catheters, specimen collection is acceptable on catheter day 1 and 2 only. ? Result Comment: Resu lts may be inaccurate due to color interference. Clinical correlation recommended. Performed By: #### L ABHSTI1, LIPA, HFP, IPB, CA, MGO #### [facility] (DEFAULT) [address] [place] [address] 51919 Protein Urine 100 mg/dL Abnormal Negative [facility] Comment on above: Order Comment: For i ndwelling catheters, specimen collection is acceptable on catheter day 1 and 2 only. ? Result Comment: Resu lts may be inaccurate due to color interference. Clinical correlation recommended. Performed By: #### L ABHSTI1, LIPA, HFP, IPB, CA, MGO #### [facility] (DEFAULT) [address] [place] [address] 88856 RBC LM.HPF (Urine sed) [#/Area] /[HPF] Abnormal 0-2 [facility] Comment on above: Order Comment: For i ndwelling catheters, specimen collection is acceptable on catheter day 1 and 2 only. ? Performed By: #### L ABHSTI1, LIPA, HFP, IPB, CA, MGO #### [facility] (DEFAULT) [address] [place] [address] 56213 Specific [place] Urine 1.018 Normal 1.001-1.035 [facility] Comment on above: Order Comment: For i ndwelling catheters, specimen collection is acceptable on catheter day 1 and 2 only. ? Result Comment: Resu lts may be inaccurate due to color interference. Clinical correlation recommended. Performed By: #### L ABHSTI1, LIPA, HFP, IPB, CA, MGO #### [facility] (DEFAULT) [address] [place] [address] 65147 Squamous/Epithelial Cells, Urine 3-5/hpf = 1+ Normal 0-2/hpf, 3-5/hpf = 1+ [facility] Comment on above: Order Comment: For i ndwelling catheters, specimen collection is acceptable on catheter day 1 and 2 only. ? Performed By: #### L ABHSTI1, LIPA, HFP, IPB, CA, MGO #### [facility] (DEFAULT) [address] [place] [address] 18956 Urobilinogen Urine 0.2 E.U./dL Normal 0.2 E.U/d L, 1.0 E.U/dL [facility] Comment on above: Order Comment: For i ndwelling catheters, specimen collection is acceptable on catheter day 1 and 2 only. ? Result Comment: Resu lts may be inaccurate due to color interference. Clinical correlation recommended. Performed By: #### L ABHSTI1, LIPA, HFP, IPB, CA, MGO #### [facility] (DEFAULT) [address] [place] [address] 86813 WBC LM.HPF (Urine sed) [#/Area] /[HPF] Abnormal 0 - 5 [facility] Comment on above: Order Comment: For i ndwelling catheters, specimen collection is acceptable on catheter day 1 and 2 only. ? Performed By: #### L ABHSTI1, LIPA, HFP, IPB, CA, MGO #### [facility] (DEFAULT) [address] [place] [address] 53632 URINE CULTUREon 01-09-2025 Bacteria identified Cx Nom (U) No Growth Normal [facility] Comment on above: Order Comment: For i ndwelling catheters, specimen collection is acceptable on catheter day 1 and 2 only. Raymundo top vacutainer. Urine must be to the fill line to process (4mls). If minimum volume, send urine in a yellow top vacutainer tube.For indwelling catheters, specimen collection is acceptable on catheter day 1 and 2 only. ? Performed By: #### L ABHSTI1, LIPA, HFP, IPB, CA, MGO #### [facility] (DEFAULT) [address] [place] [address] 99917 Urine Cultureon 01-09-2025 [facility] Culture exhibits no growth. Normal [facility] Comment on above: Performed By: #### M 100.8860 ####[facility] [id number] [place], [address] 12 Lead EKGon 01-08-2025 12 Lead EKG Normal [facility] Abdomen/Pelvis W IV Cont ONL Yon 01-08-2025 Abdomen/Pelvis W IV Cont ONLY Normal [facility] Absolute lymphocyte countOrd ered By: Mya aHile on 01-08-2025 Lymphocytes Auto (Unsp spec) [#/Vol] 0.50 10*3/uL Low 0.83-4.51 [facility] Activated partial thrombopla stin time (aPTT) in platelet poor plasma by coagulation aOrdered By: Mya Haile on 01-08-2025 aPTT Coag (PPP) [Time] 25.6 s 24.1-36.2 [facility] Anion gap in Serum or Plasma Ordered By: Mya Haile on 01-08-2025 Anion gap [Moles/Vol] 21 mmol/L High 5-15 [facility] BUN/creatinine ratioOrdered By: Mya Haile on 01-08-2025 Urea nitrogen/Creatinine [Mass ratio] 17.8 mg/mg 10-20 [facility] Bilirubin Test strip Ql (U)O rdered By: Mya Haile on 01-08-2025 Bilirubin Ql (U) Negative Negative [facility] Bilirubin, totalOrdered By: Mya Haile on 01-08-2025 Bilirubin [Mass/Vol] 0.55 mg/dL 0.00-1.30 [facility] Blood band neutrophil count as percentage of total leukocytesOrdered By: Mya Haile on 01-08-2025 Band form neutrophils/100 WBC (Bld) 3 % 0-5 [facility] Blood lymphocytes/100 leukoc ytesOrdered By: Mya Haile on 01-08-2025 Lymphocytes/100 WBC (Bld) 4 % Low 19-41 [facility] Blood metamyelocytes/100 makenzie kocytesOrdered By: Mya Haile on 01-08-2025 Metamyelocytes/100 WBC (Bld) 2 % High 0-1 [facility] Blood monocytes/100 leukocyt esOrdered By: Mya Haile on 01-08-2025 Monocytes/100 WBC (Bld) 5 % 0-10 [facility] Blood promyelocytes/100 leuk ocytesOrdered By: Mya Haile on 01-08-2025 Promyelocytes/100 WBC (Bld) 1 % High 0-0 [facility] Blood segmented neutrophils/ 100 leukocytesOrdered By: Mya Haile on 01-08-2025 Segmented neutrophils/100 WBC (Bld) 84 % High 47-70 [facility] CALCIUMon 01-08-2025 Calcium [Mass/Vol] 7.9 mg/dL Low 8.6 - 10. 5 mg/dL [facility] Calcium [Mass/Vol] 7.9 mg/dL Low 8.6-10.5 [facility] Comment on above: Performed By: #### L ABHSTI1, LIPA, HFP, IPB, CA, MGO #### [facility] (DEFAULT) [address] [place] [address] [phone] CBC AND ELECTRONIC DIFFon Erythrocyte distribution width (RBC) [Ratio] 19.5 % High 10.9 - 14.3 % [facility] Hematocrit (Bld) [Volume fraction] 27.7 % Low 39.6 - 48.8 % [facility] Hemoglobin (Bld) [Mass/Vol] 8.7 g/dL Low 13.4 - 16.8 g/dL [facility] MCH (RBC) [Entitic mass] 29.5 pg 26.1 - 33.3 pg [facility] MCHC (RBC) [Mass/Vol] 31.4 g/dL Low 31.9 - 36.5 g/dL [facility] MCV (RBC) [Entitic vol] 93.9 fL 79.0 - 94.5 fL [facility] Platelet mean volume (Bld) [Entitic vol] 11.9 fL 8.7 - 12.3 fL [facility] Platelets (Bld) [#/Vol] 145 10*3/uL Low 146 - 337 K/uL [facility] RBC (Bld) [#/Vol] 2.95 10*6/uL [facility] [#/Vol] 10.32 10*3/uL High 3.73 - 10.10 K/uL [facility] Hematocrit (Bld) [Volume fraction] 27.7 % Low 39.6-48.8 [facility] Comment on above: Performed By: #### L ABHSTI1, LIPA, HFP, IPB, CA, MGO #### [facility] (DEFAULT) [address] [place] [address] 38818 Hemoglobin (Bld) [Mass/Vol] 8.7 g/dL Low 13.4-16.8 [facility] Comment on above: Performed By: #### L ABHSTI1, LIPA, HFP, IPB, CA, MGO #### [facility] (DEFAULT) [address] [place] [address] 24317 MCV (RBC) [Entitic vol] 93.9 fL Normal 79.0-94.5 [facility] Comment on above: Performed By: #### L ABHSTI1, LIPA, HFP, IPB, CA, MGO #### [facility] (DEFAULT) [address] [place] [address] 26830 Mean Cell Hgb 29.5 pg Normal 26.1-33.3 [facility] Comment on above: Performed By: #### L ABHSTI1, LIPA, HFP, IPB, CA, MGO #### [facility] (DEFAULT) [address] [place] [address] 74467 Mean Cell Hgb Conc 31.4 g/dL Low 31.9-36.5 [facility] Comment on above: Performed By: #### L ABHSTI1, LIPA, HFP, IPB, CA, MGO #### [facility] (DEFAULT) [address] [place] [address] 35751 Platelet mean volume (Bld) [Entitic vol] 11.9 fL Normal 8.7-12.3 [facility] Comment on above: Performed By: #### L ABHSTI1, LIPA, HFP, IPB, CA, MGO #### [facility] (DEFAULT) [address] [place] [address] 27497 Platelets (Bld) [#/Vol] 145 10*3/uL Low 146-337 [facility] Comment on above: Performed By: #### L ABHSTI1, LIPA, HFP, IPB, CA, MGO #### [facility] (DEFAULT) [address] [place] [address] 13115 RBC (Bld) [#/Vol] 2.95 10*6/uL Low 4.38-5.83 [facility] Comment on above: Performed By: #### L ABHSTI1, LIPA, HFP, IPB, CA, MGO #### [facility] (DEFAULT) [address] [place] [address] 57901 RBC Distribution 19.5 % High 10.9-14.3 [facility] Comment on above: Performed By: #### L ABHSTI1, LIPA, HFP, IPB, CA, MGO #### [facility] (DEFAULT) [address] [place] [address] 48710 WBC (Bld) [#/Vol] 10.32 10*3/uL High 3.73-10.10 [facility] Comment on above: Performed By: #### L ABHSTI1, LIPA, HFP, IPB, CA, MGO #### [facility] (DEFAULT) [address] [place] [address] 70917 CBC W/Diff, Automatedon 06- Absolute Lymph 0.50 X10 3/uL Low 0.83-4.51 [facility] Comment on above: Performed By: #### L 100.0100, L300.4310, L500.4050, L501.2450, L503.6005, L300.3900 ####[facility] [id number] [place], [address] PATH REV May foll Normal [facility] Comment on above: Performed By: #### L 100.0100, L300.4310, L500.4050, L501.2450, L503.6005, L300.3900 ####[facility] [address] [place], [address] Absolute Neut 10.9 X10 3/uL High 2.0-7.7 [facility] Comment on above: Performed By: #### L 100.0100, L300.4310, L500.4050, L501.2450, L503.6005, L300.3900 ####[facility] [address] [place], [address] CHM 7 - EDon 01-08-2025 Anion gap [Moles/Vol] 20 mmol/L High 7 - 17 mmol/L [facility] Chloride [Moles/Vol] 98 mmol/L 98 - 10 8 mmol/L [facility] CO2 [Moles/Vol] 24 mmol/L 21 - 31 mmol/L [facility] Creatinine [Mass/Vol] 5.34 mg/dL High 0.70 - 1.30 mg/dL [facility] eGFR, CKD-EPI, Male 11 Low - PINF [facility] Comment on above: Reported eGFR is bas ed on the CKD-EPI 2020 equation using creatinine, age, and sex. Glucose [Mass/Vol] 48 mg/dL Critically low 70 - 17 9 mg/dL [facility] Interpretation and review of laboratory results Abnormal [facility] Osmolality Calc [Osmolality] 316 High [facility] Potassium [Moles/Vol] 4.2 mmol/L 3.5 - 5.0 mmol/L [facility] Sodium [Moles/Vol] 138 mmol/L 135 - 145 mmol/L [facility] Urea nitrogen [Mass/Vol] 96 mg/dL High 7 - 25 mg/dL [facility] Urea nitrogen/Creatinine [Mass ratio] 18 mg/mg [facility] Anion gap [Moles/Vol] 20 mmol/L High 7-17 [facility] Comment on above: Performed By: #### C 7ED #### [facility] (DEFAULT) [address] [place] [address] 41345 Chloride [Moles/Vol] 98 mmol/L Normal 98-108 [facility] Comment on above: Performed By: #### C 7ED #### [facility] (DEFAULT) [address] [place] [address] 12874 CO2 [Moles/Vol] 24 mmol/L Normal 21-31 [facility] Comment on above: Performed By: #### C 7ED #### [facility] (DEFAULT) [address] [place] [address] 16810 Creatinine [Mass/Vol] 5.34 mg/dL High 0.70-1.30 [facility] Comment on above: Performed By: #### Aaron 7ED #### [facility] (DEFAULT) [address] [place] [address] 39276 GFR/1.73 sq M.predicted among non-blacks MDRD (S/P/Bld) [Vol rate/Area] 11 mL/min/{1.73_m2} Low >=60 [facility] Comment on above: Result Comment: Repo rted eGFR is based on the CKD-EPI 2020 equation using creatinine, age, and sex. Performed By: #### Aaron 7ED #### [facility] (DEFAULT) [address] [place] [address] 53934 Glucose [Mass/Vol] 48 mg/dL Critically low Nonfast in-179 mg/dL; Fastin-99 [facility] Comment on above: Performed By: #### Aaron 7ED #### [facility] (DEFAULT) [address] [place] [address] 98553 Osmolality [Osmolality] 316 mosm/kg High 278-305 [facility] Comment on above: Performed By: #### Aaron 7ED #### [facility] (DEFAULT) [address] [place] [address] 65474 Potassium [Moles/Vol] 4.2 mmol/L Normal 3.5-5.0 [facility] Comment on above: Performed By: #### C 7ED #### [facility] (DEFAULT) [address] [place] [address] 61790 Sodium [Moles/Vol] 138 mmol/L Normal 135-145 [facility] Comment on above: Performed By: #### C 7ED #### [facility] (DEFAULT) [address] [place] [address] 07781 Urea nitrogen [Mass/Vol] 96 mg/dL High 7-25 [facility] Comment on above: Performed By: #### C 7ED #### [facility] (DEFAULT) [address] [place] [address] 85666 Urea nitrogen/Creatinine [Mass ratio] 18 mg/mg Normal [facility] Comment on above: Performed By: #### C 7ED #### [facility] (DEFAULT) [address] [place] [address] 41871 Anion gap [Moles/Vol] 22 mmol/L High 7-17 [facility] Comment on above: Performed By: #### L DO, URICB, C7ED #### [facility] (DEFAULT) [address] [place] [address] 89759 Chloride [Moles/Vol] 98 mmol/L Normal 98-108 [facility] Comment on above: Performed By: #### L DO, URICB, C7ED #### [facility] (DEFAULT) [address] [place] [address] 85566 CO2 [Moles/Vol] 21 mmol/L Normal 21-31 [facility] Comment on above: Performed By: #### L DO, URICB, C7ED #### [facility] (DEFAULT) [address] [place] [address] 12494 Creatinine [Mass/Vol] 5.35 mg/dL High 0.70-1.30 [facility] Comment on above: Performed By: #### L DO, URICB, C7ED #### [facility] (DEFAULT) [address] [place] [address] 67209 GFR/1.73 sq M.predicted among non-blacks MDRD (S/P/Bld) [Vol rate/Area] 11 mL/min/{1.73_m2} Low >=60 [facility] Comment on above: Result Comment: Repo rted eGFR is based on the CKD-EPI 2020 equation using creatinine, age, and sex. Performed By: #### L DO, URICB, C7ED #### [facility] (DEFAULT) [address] [place] [address] 64352 Glucose [Mass/Vol] 48 mg/dL Critically low Nonfast in-179 mg/dL; Fastin-99 [facility] Comment on above: Performed By: #### L DO, URICB, C7ED #### [facility] (DEFAULT) [address] [place] [address] 52115 Osmolality [Osmolality] 314 mosm/kg High 278-305 [facility] Comment on above: Performed By: #### L DO, URICB, C7ED #### [facility] (DEFAULT) [address] [place] [address] 52756 Potassium [Moles/Vol] 4.4 mmol/L Normal 3.5-5.0 [facility] Comment on above: Performed By: #### L DO, URICB, C7ED #### [facility] (DEFAULT) [address] [place] [address] 77866 Sodium [Moles/Vol] 137 mmol/L Normal 135-145 [facility] Comment on above: Performed By: #### L DO, URICB, C7ED #### [facility] (DEFAULT) [address] [place] [address] 96407 Urea nitrogen [Mass/Vol] 94 mg/dL High 7-25 [facility] Comment on above: Performed By: #### L DO, URICB, C7ED #### [facility] (DEFAULT) [address] [place] [address] Urea nitrogen/Creatinine [Mass ratio] 18 mg/mg Normal [facility] Comment on above: Performed By: #### L DO, URICB, C7ED #### [facility] (DEFAULT) [address] [place] [address] CH 7 - EDOrdered By: Harpal Oshea on 01-08-2025 Anion gap [Moles/Vol] 22 mmol/L High 7 - 17 mmol/L [facility] Chloride [Moles/Vol] 98 mmol/L 98 - 10 8 mmol/L [facility] CO2 [Moles/Vol] 21 mmol/L 21 - 31 mmol/L [facility] Creatinine [Mass/Vol] 5.35 mg/dL High 0.70 - 1.30 mg/dL [facility] eGFR, CKD-EPI, Male 11 Low - PINF [facility] Comment on above: Reported eGFR is bas ed on the CKD-EPI 2020 equation using creatinine, age, and sex. Glucose [Mass/Vol] 48 mg/dL Critically low 70 - 17 9 mg/dL [facility] Interpretation and review of laboratory results Abnormal [facility] Osmolality Calc [Osmolality] 314 High [facility] Potassium [Moles/Vol] 4.4 mmol/L 3.5 - 5.0 mmol/L [facility] Sodium [Moles/Vol] 137 mmol/L 135 - 145 mmol/L [facility] Urea nitrogen [Mass/Vol] 94 mg/dL High 7 - 25 mg/dL [facility] Urea nitrogen/Creatinine [Mass ratio] 18 [facility] Contraston CTA Chest W/WO Contrast Normal [facility] Carbon dioxide, total [Moles /volume] in Central venous bloodOrdered By: Mya Haile on 01-08-2025 CO2 [Moles/Vol] 23.0 mmol/L 21.0-32.0 [facility] Chloride assayOrdered By: Boby Haile on 01-08-2025 Chloride [Moles/Vol] 95 mmol/L Low 98-108 [facility] Comprehensive Metabolic Prof ilon 01-08-2025 Albumin [Mass/Vol] 3.3 g/dL Low 3.4-4.8 [facility] Comment on above: Performed By: #### L 100.0100, L300.4310, L500.4050, L501.2450, L503.6005, L300.3900 ####[facility] [address] [place], [address] Albumin/Globulin [Mass ratio] 1.2 {ratio} Normal 0.9-2.4 [facility] Comment on above: Performed By: #### L 100.0100, L300.4310, L500.4050, L501.2450, L503.6005, L300.3900 ####[facility] [address] [place], [address] ALK PHOS 67 U/L Normal 40-129 [facility] Comment on above: Performed By: #### L 100.0100, L300.4310, L500.4050, L501.2450, L503.6005, L300.3900 ####[facility] [address] [place], [address] ALT [Catalytic activity/Vol] 29 U/L Normal <=46 [facility] Comment on above: Performed By: #### L 100.0100, L300.4310, L500.4050, L501.2450, L503.6005, L300.3900 ####[facility] [address] [place], [address] AST [Catalytic activity/Vol] 25 U/L Normal <=37 [facility] Comment on above: Performed By: #### L 100.0100, L300.4310, L500.4050, L501.2450, L503.6005, L300.3900 ####[facility] [address] [place], [address] Bilirubin [Mass/Vol] 0.55 mg/dL Normal 0.00-1.30 [facility] Comment on above: Performed By: #### L 100.0100, L300.4310, L500.4050, L501.2450, L503.6005, L300.3900 ####[facility] [address] [place], [address] BUN/CRE 17.8 RATIO Normal 10-20 [facility] Comment on above: Performed By: #### L 100.0100, L300.4310, L500.4050, L501.2450, L503.6005, L300.3900 ####[facility] [address] [place], [address] Calcium [Mass/Vol] 8.6 mg/dL Normal 7.6-11.0 [facility] Comment on above: Performed By: #### L 100.0100, L300.4310, L500.4050, L501.2450, L503.6005, L300.3900 ####[facility] [address] [place], [address] Chloride [Moles/Vol] 95 mmol/L Low 98-108 [facility] Comment on above: Performed By: #### L 100.0100, L300.4310, L500.4050, L501.2450, L503.6005, L300.3900 ####[facility] [address] [place], [address] CO2 [Moles/Vol] 23.0 mmol/L Normal 21.0-32.0 [facility] Comment on above: Performed By: #### L 100.0100, L300.4310, L500.4050, L501.2450, L503.6005, L300.3900 ####[facility] [address] [place], [address] Creatinine [Mass/Vol] 4.92 mg/dL High 0.70-1.20 [facility] Comment on above: Performed By: #### L 100.0100, L300.4310, L500.4050, L501.2450, L503.6005, L300.3900 ####[facility] [address] [place], [place], [id number] ECRCL 17.67 ml/min Low 50-250 [facility] Comment on above: Performed By: #### L 100.0100, L300.4310, L500.4050, L501.2450, L503.6005, L300.3900 ####[facility] [address] [place], [address] GAP 21 High 5-15 [facility] Comment on above: Performed By: #### L 100.0100, L300.4310, L500.4050, L501.2450, L503.6005, L300.3900 ####[facility] [address] [place], [place], [phone](524) GFR/1.73 sq M.predicted among non-blacks MDRD (S/P/Bld) [Vol rate/Area] 12 mL/min/{1.73_m2} Low >60 [facility] Comment on above: Result Comment: mL/m in/1.73m2 CKD-EPI Creatinine Equation (2020) Performed By: #### L 100.0100, L300.4310, L500.4050, L501.2450, L503.6005, L300.3900 ####[facility] [address] [place], [address] Globulin (S) [Mass/Vol] 2.8 g/dL Normal 2.2-4.2 [facility] Comment on above: Performed By: #### L 100.0100, L300.4310, L500.4050, L501.2450, L503.6005, L300.3900 ####[facility] [address] [place], [address] Glucose [Mass/Vol] 162 mg/dL High 70-99 [facility] Comment on above: Performed By: #### L 100.0100, L300.4310, L500.4050, L501.2450, L503.6005, L300.3900 ####[facility] [address] [place], [address] Potassium [Moles/Vol] 4.7 mmol/L Normal 3.3-5.1 [facility] Comment on above: Performed By: #### L 100.0100, L300.4310, L500.4050, L501.2450, L503.6005, L300.3900 ####[facility] [address] [place], [address] Sodium [Moles/Vol] 139 mmol/L Normal 133-145 [facility] Comment on above: Performed By: #### L 100.0100, L300.4310, L500.4050, L501.2450, L503.6005, L300.3900 ####[facility] [address] [place], [address] T PROT 6.1 g/dL Normal 5.9-8.4 [facility] Comment on above: Performed By: #### L 100.0100, L300.4310, L500.4050, L501.2450, L503.6005, L300.3900 ####[facility] [address] [place], [address] Urea nitrogen [Mass/Vol] 87 mg/dL High 4-19 [facility] Comment on above: Performed By: #### L 100.0100, L300.4310, L500.4050, L501.2450, L503.6005, L300.3900 ####[facility] [address] [place], [address] Emergency Department Summary on 01-08-2025 Emergency Department Summary Normal [facility] Erythrocyte distribution wid th ratioOrdered By: Mya Haile on 01-08-2025 Erythrocyte distribution width (RBC) [Ratio] 18.9 % High 11.6-14.6 [facility] Erythrocyte distribution wid th standard deviationOrdered By: Mya Hernandez on 01-08-2025 Erythrocyte distribution width (RBC) [Ratio] 65.0 fl High 35.1-43.9 [facility] Erythrocyte morphology asses smentOrdered By: Mya Haile on 01-08-2025 RBC morphology finding Nom (Bld) NORM C+C NORMAL NORM C&C [facility] GLUCOSE POCon 01-08-2025 Glucose [Mass/Vol] 60 mg/dL Low 70 - 179 mg/dL [facility] Interpretation and review of laboratory results Abnormal [facility] POC Sample Type CAPBL [facility] Test performed at address of the patient encounter. [facility] Glucose [Mass/Vol] 44 mg/dL Critically low 70 - 17 9 mg/dL [facility] Comment on above: RNonly -OrderPresent Interpretation and review of laboratory results Abnormal [facility] POC Sample Type CAPBL [facility] Test performed at address of the patient encounter. [facility] Glomerular filtration rate ( GFR) estimation/1.73 sq m using serum, plasma, or whole bOrdered By: Mya Haile on 01-08-2025 GFR/1.73 sq M.predicted among non-blacks MDRD (S/P/Bld) [Vol rate/Area] 12 mL/min/{1.73_m2} Low >60 [facility] HEPATIC FUNCTION PANELon Albumin [Mass/Vol] 2.9 g/dL Low 3.5 - 5.0 g/dL [facility] ALP [Catalytic activity/Vol] 46 U/L 32 - 126 U/L [facility] ALT [Catalytic activity/Vol] 19 U/L 10 - 52 U/L [facility] AST [Catalytic activity/Vol] 71 U/L High 10 - 39 U/L [facility] Comment on above: Specimen moderately hemolyzed. AST results may be significantly falsely elevated. Consider recollection. Bilirubin [Mass/Vol] 0.7 mg/dL NINF - 1.5 mg/dL [facility] Bilirubin.direct [Mass/Vol] mg/dL BANNERF - 0.3 mg/dL [facility] Comment on above: Specimen hemolyzed. Direct bilirubin results may be falsely decreased. Interpret within the clinical context. Protein [Mass/Vol] 5.5 g/dL Low 6.4 - 8.3 g/dL [facility] Albumin [Mass/Vol] 2.9 g/dL Low 3.5-5.0 [facility] Comment on above: Performed By: #### L ABHSTI1, LIPA, HFP, IPB, CA, MGO #### [facility] (DEFAULT) [address] [place] [address] ALP [Catalytic activity/Vol] 46 U/L Normal 32-126 [facility] Comment on above: Performed By: #### L ABHSTI1, LIPA, HFP, IPB, CA, MGO #### [facility] (DEFAULT) [address] [place] [address] ALT [Catalytic activity/Vol] 19 U/L Normal 10-52 [facility] Comment on above: Performed By: #### L ABHSTI1, LIPA, HFP, IPB, CA, MGO #### [facility] (DEFAULT) [address] [place] [address] AST [Catalytic activity/Vol] 71 U/L High 10-39 [facility] Comment on above: Result Comment: Spec imen moderately hemolyzed. AST results may be significantly falsely elevated. Consider recollection. Performed By: #### L ABHSTI1, LIPA, HFP, IPB, CA, MGO #### [facility] (DEFAULT) [address] [place] [address] Bilirubin [Mass/Vol] 0.7 mg/dL Normal <1.5 [facility] Comment on above: Performed By: #### L ABHSTI1, LIPA, HFP, IPB, CA, MGO #### [facility] (DEFAULT) [address] [place] [address] Bilirubin Direct < Normal <0.3 [facility] Comment on above: Result Comment: Spec imen hemolyzed. Direct bilirubin results may be falsely decreased. Interpret within the clinical context. Performed By: #### L ABHSTI1, LIPA, HFP, IPB, CA, MGO #### [facility] (DEFAULT) [address] [place] [address] Protein [Mass/Vol] 5.5 g/dL Low 6.4-8.3 [facility] Comment on above: Performed By: #### L ABHSTI1, LIPA, HFP, IPB, CA, MGO #### [facility] (DEFAULT) [address] [place] [address] HIGH SENSITIVITY TROPONIN I - SINGLE ORDERon 01-08-2025 Interpretation and review of laboratory results Normal [facility] Troponin I.cardiac High sensitivity method [Mass/Vol] 36 ng/L NINF - 53 ng/L [facility] hs-Troponin I 36 ng/L Normal <53 [facility] Comment on above: Order Comment: Acute Coronary Syndrome (ACS): Initial Evaluation and Management: [email or web address] [email or web address] Performed By: #### L ABHSTI1, LIPA, HFP, IPB, CA, MGO #### [facility] (DEFAULT) [address] [place] [address] Hematocrit Auto (Bld) [Volum e fraction]Ordered By: Mya EmeryBrien on 01-08-2025 Hematocrit (Bld) [Volume fraction] 32.0 % Low 40-54 [facility] Hemoglobin measurementOrdere d By: Mya [facility] on 01-08-2025 Hemoglobin (Bld) [Mass/Vol] 10.1 g/dL Low 13.0-16.5 [facility] Influenza virus A and B and SARS-CoV-2 (COVID-19) and Respiratory syncytial virus RNAOrdered By: [facility] CenterBrien on 01-08-2025 SARS-CoV-2 (COVID-19) RNA TRICIA+probe Ql (Unsp spec) [facility] Ketones Test strip Ql (U)Ord ered By: [facility] Center[facility]jaminDavid on 01-08-2025 Ketones Ql (U) Negative Negative [facility] L499.0042on 01-08-2025 Trop T High Sen 72 ng/L Invalid Interpretation Code <=22 [facility] Comment on above: Result Comment: Crit ical Result(s) Called at 1354: by: JESSICA ELLIS. ??Results read back by same. Performed By: #### L 499.0042 ####[facility] [address] [place], [place], [id number] L501.4021on 01-08-2025 Trop T High Sen 80 ng/L Invalid Interpretation Code <=22 [facility] Comment on above: Result Comment: Crit ical Result(s) Called at 1149: by: JESSICA VIVEROS. ??Results read back by same. Performed By: #### L 501.4021 ####[facility] [address] [place], [place], [address] LACTATE DEHYDROGENASEon 12-24 Interpretation and review of laboratory results Abnormal [facility] LDH Lactate to pyruvate reaction [Catalytic activity/Vol] 454 U/L High 100 - 190 U/[facility] Total 454 U/L High 100-190 [facility] Comment on above: Performed By: #### L DO, URICB, C7ED #### [facility] (DEFAULT) [address] [place] [address] LACTATE, INITIALon Lactate [Moles/Vol] 1.5 mmol/L 0.5 - 1. 6 mmol/L [facility] 0 Hour Lactate 1.5 mmol/L Normal 0.5-1.6 [facility] Comment on above: Performed By: #### L ABHSTI1, LIPA, HFP, IPB, CA, MGO #### [facility] (DEFAULT) [address] [place] [address] LIPASEon 01-08-2025 Lipase [Catalytic activity/Vol] 13 U/L 11 - 82 U/L [facility] Lipase [Catalytic activity/Vol] 13 U/L Normal 82 [facility] Comment on above: Performed By: #### L ABHSTI1, LIPA, HFP, IPB, CA, MGO #### [facility] (DEFAULT) [address] [place] [address] Lactic Acidon 01-08-2025 Lactate [Moles/Vol] 2.0 mmol/L Normal 0.0-2.0 [facility] Comment on above: Result Comment: Crit ical Result(s) Called EVELYN WINSLOW at: 1614 by:JOSE ALEJANDRO??Results read back by same. Performed By: #### L 503.6005 ####[facility] [address] [place], [place], [address] Lactate [Moles/Vol] 2.3 mmol/L Invalid Interpretation Code 0.0-2.0 [facility] Comment on above: Order Comment: Y Result Comment: Crit ical Result(s) Called at 1157: by: JESSICA VIVEROS. ??Results read back by same. Performed By: #### L 100.0100, L300.4310, L500.4050, L501.2450, L503.6005, L300.3900 ####[facility] [address] [place], [address] Lipaseon 01-08-2025 Lipase [Catalytic activity/Vol] 28 U/L Normal 13-75 [facility] Comment on above: Result Comment: Vanesa mcghee note:LIPASE revised reference range effective 22.New Lipase methodology. Expected to produce lower valuesthan the previous assay method.NEW Reference Range: 13 - 75 U/L Performed By: #### L 100.0100, L300.4310, L500.4050, L501.2450, L503.6005, L300.3900 ####[facility] [address] [place], [address] M100.678on 01-08-2025 M100.678 SARS-CoV-2 (COVID 19 ) Negative INFLUENZA A Negative INFLUENZA B Negative RSV PCR Negative Normal [facility] Comment on above: Performed By: #### M 100.678 ####[facility] [address] [place], [address] MAGNESIUMon 01-08-2025 Magnesium [Mass/Vol] 2.2 mg/dL 1.6 - 2 .6 mg/dL [facility] Magnesium [Mass/Vol] 2.2 mg/dL Normal 1.6-2.6 [facility] Comment on above: Performed By: #### L ABHSTI1, LIPA, HFP, IPB, CA, MGO #### [facility] (DEFAULT) [address] [address] MANUAL DIFFon 01-08-2025 Band form neutrophils/100 WBC (Bld) 0 % [facility] Basophils (Bld) [#/Vol] 0 10*3/uL 0.00 - 0.09 K/uL [facility] Basophils/100 WBC (Bld) 0 % [facility] Differential cell count method Nom (Bld) Manual Differential [facility] Eosinophils (Bld) [#/Vol] 0 10*3/uL [facility] Eosinophils/100 WBC (Bld) 0 % [facility] Lymphocytes (Bld) [#/Vol] 0.35 10*3/uL Low 0.83 - 3.57 K/uL [facility] Lymphocytes/100 WBC (Bld) 3.4 % [facility] Monocytes (Bld) [#/Vol] 0.44 10*3/uL 0.24 - 0.93 K/uL [facility] Monocytes/100 WBC (Bld) 4.3 % [facility] Myelocytes (Bld) [#/Vol] 0.09 10*3/uL High NINF - 0.07 K/uL [facility] Myelocytes.neutrophilic /100 WBC Manual cnt (Bld) 0.9 % [facility] Neutrophils (Bld) [#/Vol] 9.43 10*3/uL High 1.57 - 6.19 K/uL [facility] Normoblasts Polychromatophilic/100 cells Microscopy (Bld) 1+ Abnormal (none) [facility] Ovalocytes LM Ql (Bld) Present Abnormal (none) [facility] Platelets Estimate (Bld) [#/Vol] Automated platelet count confirmed by manual slide review [facility] RBC morphology finding Nom (Bld) RBC INDICES CONFIRMED WITH MANUAL SLIDE REVIEW [facility] Segmented neutrophils/100 WBC (Bld) 91.4 % [facility] MCV (mean corpuscular volume ) determinationOrdered By: Mya Haile on 01-08-2025 MCV (RBC) [Entitic vol] 94.1 fL High 80-94 [facility] Mean corpuscular hemoglobin (MCH) determinationOrdered By: Mya Haile on 01-08-2025 MCH (RBC) [Entitic mass] 29.7 pg 27.0-32.0 [facility] Mucus LM Ql (Urine sed)Order ed By: Mya Haile on 01-08-2025 Mucus Ql (Urine sed) 0 SEEN /hpf [facility] Nitrite Test strip Ql (U)Ord ered By: Mya Haile on 01-08-2025 Nitrite Ql (U) Negative Negative [facility] No Panel Informationon 01-08 Interpretation and review of laboratory results Abnormal [facility] Interpretation and review of laboratory results Abnormal [facility] Interpretation and review of laboratory results Normal [facility] No Panel InformationOrdered By: Mya Haile on 01-08-2025 25 U/L <38 [facility] PHOSPHATE, INORGANICon 01-08 Phosphate [Mass/Vol] 7.4 mg/dL High 2.2 - 4 .6 mg/dL [facility] Phosphorous 7.4 mg/dL High 2.2-4.6 [facility] Comment on above: Performed By: #### L ABHSTI1, LIPA, HFP, IPB, CA, MGO #### [facility] (DEFAULT) [address] [place] [address] PROTIME-INRon 01-08-2025 INR Coag (Bld) [Relative time] 1.1 {INR} 0.9 - 1.1 [facility] Interpretation and review of laboratory results Normal [facility] PT Coag (PPP) [Time] 13.9 s [facility] INR Coag (PPP) [Relative time] 1.1 {INR} Normal 0.9-1.1 [facility] Comment on above: Performed By: #### L ABHSTI1, LIPA, HFP, IPB, CA, MGO #### [facility] (DEFAULT) [address] [place] [address] PT Coag (PPP) [Time] 13.9 s Normal 11.9-14.2 [facility] Comment on above: Performed By: #### L ABHSTI1, LIPA, HFP, IPB, CA, MGO #### [facility] (DEFAULT) [address] [place] [address] Partial Thromboplast Timeon 01-08-2025 aPTT Coag (Bld) [Time] 25.6 s Normal 24.1-36.2 [facility] Comment on above: Performed By: #### L 100.0100, L300.4310, L500.4050, L501.2450, L503.6005, L300.3900 ####[facility] [address] [place], [place], [id number] Platelet countOrdered By: Boby Haile on 01-08-2025 Platelets (Bld) [#/Vol] 149 10*3/uL Low 150-450 [facility] Platelet estimateOrdered By: Mya Haile on 01-08-2025 Platelets LM Ql (Bld) SLT DEC ADEQ [facility] Potassium measurement (mass/ volume)Ordered By: Mya Haile on 01-08-2025 Potassium (Unsp spec) [Mass/Vol] 4.7 mmol/L 3.3-5.1 [facility] Protein Test strip Ql (U)Ord ered By: Mya Haile on 01-08-2025 Protein Ql (U) 500 mg/dl High Negative [facility] Prothrombin Time w/INRon INR Coag (PPP) [Relative time] 1.0 {INR} Normal [facility] Comment on above: Performed By: #### L 100.0100, L300.4310, L500.4050, L501.2450, L503.6005, L300.3900 ####[facility] [address] [place], [place], [id number] PT Coag (PPP) [Time] 13.6 s Normal 11.7-14.9 [facility] Comment on above: Performed By: #### L 100.0100, L300.4310, L500.4050, L501.2450, L503.6005, L300.3900 ####[facility] [address] [place], [address] Prothrombin timeOrdered By: Mya Haile on 01-08-2025 PT Coag (PPP) [Time] 13.6 s 11.7-14.9 [facility] RBC Auto (Bld) [#/Vol]Ordere d By: Mya Haile on 01-08-2025 RBC (Bld) [#/Vol] 3.40 10*6/uL Low 4.6-6.2 [facility] Review by pathologistOrdered By: Mya Haile on 01-08-2025 Pathologist review Luis Fernando (Unsp spec) [Interp] November [facility] Serum creatinine measurement (mass/volume)Ordered By: Mya Haile on 01-08-2025 Creatinine [Mass/Vol] 4.92 mg/dL High 0.70-1.20 [facility] Serum globulin measurementOr dered By: Mya Haile on 01-08-2025 Globulin (S) [Mass/Vol] 2.8 g/dL 2.2-4.2 [facility] Serum glucose measurement (m ass/volume)Ordered By: Mya Haile on 01-08-2025 Glucose [Mass/Vol] 162 mg/dL High 70-99 [facility] Serum or plasma alanine magana otransferase (ALT) measurementOrdered By: Mya Haile on 01-08-2025 ALT [Catalytic activity/Vol] 29 U/L <47 [facility] Serum or plasma albumin joshua urement (mass/volume)Ordered By: Mya Hernandez on 01-08-2025 Albumin [Mass/Vol] 3.3 g/dL Low 3.4-4.8 [facility] Serum or plasma albumin/glob ulin mass ratioOrdered By: Mya Haile on 01-08-2025 Albumin/Globulin [Mass ratio] 1.2 {ratio} 0.9-2.4 [facility] Serum or plasma alkaline denise sphatase measurementOrdered By: Mya Haile on 01-08-2025 ALP [Catalytic activity/Vol] 67 U/L 40-129 [facility] Serum or plasma calcium joshua urement (mass/volume)Ordered By: Mya Hernandez on 01-08-2025 Calcium [Mass/Vol] 8.6 mg/dL 7.6-11.0 [facility] Serum or plasma urea nitroge n measurement (mass/volume)Ordered By: Mya Haile on 01-08-2025 Urea nitrogen [Mass/Vol] 87 mg/dL High 4-19 [facility] Sodium levelOrdered By: Kennedy [place] on 01-08-2025 Sodium [Moles/Vol] 139 mmol/L 133-145 [facility] Squamous epithelial cells de tection in urine sediment by light microscopyOrdered By: Mya Haile on 01-08-2025 Epithelial cells.squamous LM Ql (Urine sed) 0 SEEN /hpf 0-5 [facility] Stool Occult Blood iFOBon STOB Positive Normal [facility] Comment on above: Performed By: #### M 100.7900 ####[facility] [address] [place], [place], [id number] Stool gastrointestinal hemog lobin detection by immunologic methodOrdered By: Mya Haile on 01-08-2025 Lower GI hemoglobin IA Ql (Stl) Positive Abnormal [facility] Total cell countOrdered By: Mya Haile on 01-08-2025 Cells counted Molgen (Bld/Tiss) [#] 100 MANUAL DIFF [facility] Total proteinOrdered By: Juma Haile on 01-08-2025 Protein [Mass/Vol] 6.1 g/dL 5.9-8.4 [facility] Troponin T.cardiac [Mass/vol ume] in Serum or Plasma by High sensitivity methodOrdered By: Mya Haile on 01-08-2025 Troponin T.cardiac High sensitivity method [Mass/Vol] 72 ng/L High <22 [facility] Troponin T.cardiac High sensitivity method [Mass/Vol] 80 ng/L High <22 [facility] URIC ACIDon 01-08-2025 Interpretation and review of laboratory results Normal [facility] Urate [Mass/Vol] 5.7 mg/dL 3.5 - 7.0 mg/dL [facility] Urate [Mass/Vol] 5.7 mg/dL Normal 3.5-7.0 [facility] Comment on above: Performed By: #### L DO, URICB, C7ED #### [facility] (DEFAULT) [address] [place] [address] Urinalysis, Completeon 01-08 BACTERIA 1+ /hpf Normal None Seen [facility] Comment on above: Order Comment: COLOR OF URINE MAY AFFECT DIPSTICK RESULTS.CLEAN CATCH Performed By: #### L 400.0001 ####[facility] [address] [facility] [address] WBC 5-10 SEEN Normal 0-5 [facility] Comment on above: Order Comment: COLOR OF URINE MAY AFFECT DIPSTICK RESULTS.CLEAN CATCH Performed By: #### L 400.0001 ####[facility] [address] [place], [address] RBC > 100 SEEN Normal 0-5 [facility] Comment on above: Order Comment: COLOR OF URINE MAY AFFECT DIPSTICK RESULTS.CLEAN CATCH Performed By: #### L 400.0001 ####[facility] [address] [place], [address] EPI,SQUAMOUS 0 SEEN Normal 0-5 [facility] Comment on above: Order Comment: COLOR OF URINE MAY AFFECT DIPSTICK RESULTS.CLEAN CATCH Performed By: #### L 400.0001 ####[facility] [address] [place], [address] Mucus Ql (Urine sed) 0 SEEN Normal [facility] Comment on above: Order Comment: COLOR OF URINE MAY AFFECT DIPSTICK RESULTS.CLEAN CATCH Performed By: #### L 400.0001 ####[facility] [address] [place], [address] Urine clarityOrdered By: Juma Haile on 01-08-2025 Clarity (U) Cloudy Clear [facility] Urine color determinationOrd ered By: Mya Haile on 01-08-2025 Color (U) Red Yellow [facility] Urine glucose detectionOrder ed By: Mya Haile on 01-08-2025 Glucose Ql (U) 100 mg/dl High Normal [facility] Urine leukocyte esterase det ection by dipstickOrdered By: Mya Haile on 01-08-2025 Leukocyte esterase Test strip Ql (U) 25 /ul High Negative [facility] Urine pHOrdered By: Mya Tesfaye on 01-08-2025 pH (U) 7.0 [pH] 5.0 - 8.0 [facility] Urine sediment bacteria coun t by microscopy (number/high power field)Ordered By: Mya Haile on 01-08-2025 Bacteria LM.HPF (Urine sed) [#/Area] 1 /[HPF] None Seen [facility] Urine specific gravity measu rementOrdered By: Mya Haile on 01-08-2025 Specific gravity (U) [Rel density] 1.010 1.002-1.030 [facility] Urine urobilinogen measureme ntOrdered By: Mya Haile on 01-08-2025 Urobilinogen Ql (U) Normal mg/dl Normal [facility] VENOUS BLOOD GASon Base excess Calc (Bld) [Moles/Vol] 0.9 mmol/L -3.0 - 3.0 mmol/L [facility] CO2 (Bld) [Partial pressure] 37 mm[Hg] [facility] HCO3 (Bld) [Moles/Vol] 25 mmol/L 22 - 29 mmol/L [facility] Oxygen (Bld) [Partial pressure] 43 mm[Hg] mm Hg [facility] Comment on above: Venous pO2 is not re commended for the evaluation of oxygen status, clinical correlation is recommended. Oxygen saturation in Blood 69 % Low 70 - 80 % [facility] pH (Bld) 7.44 [pH] High 7.32 - 7.43 [facility] Specimen source Nom (Unsp spec) Venous [facility] Base Excess 0.9 mmol/L Normal -3.0-3.0 [facility] Comment on above: Performed By: #### L ABHSTI1, LIPA, HFP, IPB, CA, MGO #### [facility] (DEFAULT) [address] [place] [address] HCO3 (Bld) [Moles/Vol] 25 mmol/L Normal 22-29 [facility] Comment on above: Performed By: #### L ABHSTI1, LIPA, HFP, IPB, CA, MGO #### [facility] (DEFAULT) [address] [place] [address] Oxygen saturation in Blood 69 % Low 70-80 [facility] Comment on above: Performed By: #### L ABHSTI1, LIPA, HFP, IPB, CA, MGO #### [facility] (DEFAULT) [address] [place] [address] pCO2, Venous 37 mm Hg Normal 36-52 [facility] Comment on above: Performed By: #### L [email or web address], LIPA, HFP, IPB, CA, MGO #### [facility] (DEFAULT) [address] [place] [id number] pH, Venous 7.44 High 7.32-7.43 [facility] Comment on above: Performed By: #### L ABHSTI1, LIPA, HFP, IPB, CA, MGO #### [facility] (DEFAULT) [address] [place] [id number] pO2, Venous 43 mm Hg Normal [facility] Comment on above: Result Comment: Veno us pO2 is not recommended for the evaluation of oxygen status, clinical correlation is recommended. Performed By: #### L ABHSTI1, LIPA, HFP, IPB, CA, MGO #### [facility] (DEFAULT) [address] [place] [address] Specimen type Nom (Spec) Venous Normal [facility] Comment on above: Performed By: #### L ABHSTI1, LIPA, HFP, IPB, CA, MGO #### [facility] (DEFAULT) [address] [place] [address] White blood cell (WBC) count Ordered By: Mya Haile on 01-08-2025 WBC (Bld) [#/Vol] 12.6 10*3/uL High 4.4-11.0 [facility] White blood cell countOrdere d By: Mya Haile on 01-08-2025 White blood cell count 5-10 SEEN /hpf 0-5 [facility] GENERAL PROCEDUREon 12-30-19 25 Casey Herman MD, PhD - 12/29/2024 8:20 AM EDT [facility] Stereotactic Radiosurgery (SRS) Note: 12/29/2024 RADIATION ONCOLOGIST: Andrea Farris MD, PhD NEUROSURGEON: Jeremy Vazquez MD Primary disease: Renal Histopathology: Renal cell carcinoma PROCEDURE PERFORMED: SRS MACHINE: [employer] STX CLINICAL TARGETS: 1. Lesion begins at T2 ends at T2. Lesion treated to 30 Gy in 5 fraction/s using VMAT arcs with 6MV and/or 10MV photons FFF Fraction 5 of 5 CONSENT: Informed consent was obtained prior to the procedure. Procedure risks, benefits, alternatives and expected outcomes were discussed with the patient. Consent(s) were scanned into the electronic medical record. UNIVERSAL PROTOCOL/ TIMEOUT: Preprocedure verification is complete patient verified and consents confirmed, procedure sites are identified and marked, timeout was called before the start of the procedure. INDICATIONS FOR PROCEDURE: 69 y.o. male with: metastatic renal cell carcinoma, clear type since 2010. Underwent left radical nephrectomy with negative lymph nodes on 10/29/2010, s/p ipilumumab/nivolamab, s/p pembrolizumab/axitinib , and currently on axitinib 5mg once daily. He was found to have upper back pain end of October 2024 and work-up showed a T2 pathologic fracture SINS 13 (unstable) and Bilsky 1c. He is a non-surgical candidate. We are planning 30 Gy in 5 fractions given the Bilsky grade and Dr. Fiore is in agreement. For the stereotactic radiation therapy we will be utilizing IMRT and IGRT for better dose conformity and decreased dose to the normal structures. The risks, benefits and side effects of external beam were discussed in extensive detail and the patient s questions were answered. Side effects discussed included but not limited to fatigue, damage to hear and lungs, decreased blood counts, nausea, diarrhea, fracture risk due to treatment with RT, mucositis, dermatitis, pain, xerostomia, dysgeusia, hair loss, damage to blood vessels and nerves, spinal cord damage, brainstem damage, and weight loss. We look forward to seeing the patient at the time of CT simulation. Thank you for allowing us to participate in the care of your patient. If I may answer any questions, please do not hesitate to contact me at any time. We are treating to improve local tumor control. PROCEDURE DETAILS: CT for treatment planning was previously obtained. The images were transferred to the treatment planning computer and the images were fused with recent MRI. The target and adjacent normal structures were outlined. Multiple plans were run and the dose plan giving the maximum dose to the target and minimum dose to the normal tissue was chosen. quality assurance qa lab technician checks were performed on the plan and treatments were initiated today. The patient's head was immobilized utilizing the encompass frameless mask. Cone beam was taken and minor shifts were made after approved by me for each of the clinical targets. The patient received treatment with 6 MV photons delivering a doses of as described above. After the treatment was completed, the mask was removed from the patient. PLAN: Tolerated the procedure well without complications. [facility]-based Stereotactic Radiotherapy, when complete, the patient will have relevant imaging and follow-up visits at an appropriate time point as clinically indicated. He is to continue current dose of dexamethasone during RT and we can taper as per instructions after treatment. Nursing team has conveyed the taper instructions. Casey Herman MD, PhD [facility] Radiology Study observation (narrative) [facility] GENERAL PROCEDUREon 12-29-19 25 Paulina Shepherd, PhD - 12/28/2024 8:20 AM EDT [facility] Stereotactic Radiosurgery (SRS) Note: 12/28/2024 RADIATION ONCOLOGIST: Andrea Farris MD, PhD NEUROSURGEON: Jeremy Vazquez MD Primary disease: Renal Histopathology: Renal cell carcinoma PROCEDURE PERFORMED: SRS MACHINE: [employer] STX CLINICAL TARGETS: 1. Lesion begins at T2 ends at T2. Lesion treated to 30 Gy in 5 fraction/s using VMAT arcs with 6MV and/or 10MV photons FFF Fraction 4 of 5 CONSENT: Informed consent was obtained prior to the procedure. Procedure risks, benefits, alternatives and expected outcomes were discussed with the patient. Consent(s) were scanned into the electronic medical record. UNIVERSAL PROTOCOL/ TIMEOUT: Preprocedure verification is complete patient verified and consents confirmed, procedure sites are identified and marked, timeout was called before the start of the procedure. INDICATIONS FOR PROCEDURE: 69 y.o. male with: metastatic renal cell carcinoma, clear type since 2010. Underwent left radical nephrectomy with negative lymph nodes on 10/29/2010, s/p ipilumumab/nivolamab, s/p pembrolizumab/axitinib , and currently on axitinib 5mg once daily. He was found to have upper back pain end of October 2024 and work-up showed a T2 pathologic fracture SINS 13 (unstable) and Bilsky 1c. He is a non-surgical candidate. We are planning 30 Gy in 5 fractions given the Bilsky grade and Dr. Fiore is in agreement. For the stereotactic radiation therapy we will be utilizing IMRT and IGRT for better dose conformity and decreased dose to the normal structures. The risks, benefits and side effects of external beam were discussed in extensive detail and the patient s questions were answered. Side effects discussed included but not limited to fatigue, damage to hear and lungs, decreased blood counts, nausea, diarrhea, fracture risk due to treatment with RT, mucositis, dermatitis, pain, xerostomia, dysgeusia, hair loss, damage to blood vessels and nerves, spinal cord damage, brainstem damage, and weight loss. We look forward to seeing the patient at the time of CT simulation. Thank you for allowing us to participate in the care of your patient. If I may answer any questions, please do not hesitate to contact me at any time. We are treating to improve local tumor control. PROCEDURE DETAILS: CT for treatment planning was previously obtained. The images were transferred to the treatment planning computer and the images were fused with recent MRI. The target and adjacent normal structures were outlined. Multiple plans were run and the dose plan giving the maximum dose to the target and minimum dose to the normal tissue was chosen. quality assurance qa lab technician checks were performed on the plan and treatments were initiated today. The patient's head was immobilized utilizing the encompass frameless mask. Cone beam was taken and minor shifts were made after approved by me for each of the clinical targets. The patient received treatment with 6 MV photons delivering a doses of as described above. After the treatment was completed, the mask was removed from the patient. There were no vitals filed for this visit. Neurologic exam: AOx3, no new focal neurologic signs KPS: Performance status: Karnofsky scale 80 (ECOG grade 1) Performs normal activity with effort; some signs & symptoms of disease CONDITION: The patient tolerated the procedure well and was in stable condition. COMPLICATIONS: None Acute toxicity: (during radiation) Radiation Dermatitis: None=0 Hoarseness: None Esophageal Injury: Grade 0 = None Radiation Pneumonitis: Grade 0 None Cough: no Dyspnea: Grade 0 none Diarrhea: Grade 0 none Nausea: Grade 0 = None Dysuria: no Fatigue: Grade 0: No Fatigue Pain Flare: no Myelopathy: None PLAN: Tolerated the procedure well without complications. [facility]-based Stereotactic Radiotherapy, when complete, the patient will have relevant imaging and follow-up visits at an appropriate time point as clinically indicated. He is to continue current dose of dexamethasone during RT and we can taper as per instructions after treatment. Nursing team has conveyed the taper instructions. Andrea Farris MD, PhD Department of Radiation Oncology [facility] Radiology Study observation (narrative) [facility] Radiology Study observation (narrative) [facility] RAD ONC ARIA FRACTION SUMMAR Yon 12-28-2024 [facility] Treatment Date 12/25/2024 8:03 AM [facility] Course ID C1 Bone Mets [facility] Course Last Treatment Date 12/28/2024 8:40 AM [facility] Energy 10X / 6X [facility] Fraction Number 4 [facility] Plan Dose Delivered to Date 2400 cGy [facility] Plan Fractions Treated to Date 4 [facility] Plan ID T2 [facility] Plan Prescribed Dose Per Fraction 600 cGy [facility] Plan Primary Reference Point 1.A T2 [facility] Plan Total Fractions Prescribed 5 [facility] Plan Total Prescribed Dose 3000 cGy [facility] Reference Point ID 1.A T2 [facility] Treatment Dates 5 [facility] Radiology Study observation (narrative) [facility] GENERAL PROCEDUREon 12-28-19 25 Paulina Shepherd, PhD 12/28/2024 8:48 AM [facility] Stereotactic Radiosurgery (SRS) Note: 12/27/2024 RADIATION ONCOLOGIST: Andrea Farris MD, PhD NEUROSURGEON: Jeremy Vazquez MD Primary disease: Renal Histopathology: Renal cell carcinoma PROCEDURE PERFORMED: SRS MACHINE: [employer] STX CLINICAL TARGETS: 1. Lesion begins at T2 ends at T2. Lesion treated to 30 Gy in 5 fraction/s using VMAT arcs with 6MV and/or 10MV photons FFF Fraction 3 of 5 CONSENT: Informed consent was obtained prior to the procedure. Procedure risks, benefits, alternatives and expected outcomes were discussed with the patient. Consent(s) were scanned into the electronic medical record. UNIVERSAL PROTOCOL/ TIMEOUT: Preprocedure verification is complete patient verified and consents confirmed, procedure sites are identified and marked, timeout was called before the start of the procedure. INDICATIONS FOR PROCEDURE: 69 y.o. male with: metastatic renal cell carcinoma, clear type since 2010. Underwent left radical nephrectomy with negative lymph nodes on 10/29/2010, s/p ipilumumab/nivolamab, s/p pembrolizumab/axitinib , and currently on axitinib 5mg once daily. He was found to have upper back pain end of October 2024 and work-up showed a T2 pathologic fracture SINS 13 (unstable) and Bilsky 1c. He is a non-surgical candidate. We are planning 30 Gy in 5 fractions given the Bilsky grade and Dr. Fiore is in agreement. For the stereotactic radiation therapy we will be utilizing IMRT and IGRT for better dose conformity and decreased dose to the normal structures. The risks, benefits and side effects of external beam were discussed in extensive detail and the patient s questions were answered. Side effects discussed included but not limited to fatigue, damage to hear and lungs, decreased blood counts, nausea, diarrhea, fracture risk due to treatment with RT, mucositis, dermatitis, pain, xerostomia, dysgeusia, hair loss, damage to blood vessels and nerves, spinal cord damage, brainstem damage, and weight loss. We look forward to seeing the patient at the time of CT simulation. Thank you for allowing us to participate in the care of your patient. If I may answer any questions, please do not hesitate to contact me at any time. We are treating to improve local tumor control. PROCEDURE DETAILS: CT for treatment planning was previously obtained. The images were transferred to the treatment planning computer and the images were fused with recent MRI. The target and adjacent normal structures were outlined. Multiple plans were run and the dose plan giving the maximum dose to the target and minimum dose to the normal tissue was chosen. quality assurance qa lab technician checks were performed on the plan and treatments were initiated today. The patient's head was immobilized utilizing the encompass frameless mask. Cone beam was taken and minor shifts were made after approved by me for each of the clinical targets. The patient received treatment with 6 MV photons delivering a doses of as described above. After the treatment was completed, the mask was removed from the patient. There were no vitals filed for this visit. Neurologic exam: AOx3, no new focal neurologic signs KPS: Performance status: Karnofsky scale 80 (ECOG grade 1) Performs normal activity with effort; some signs & symptoms of disease CONDITION: The patient tolerated the procedure well and was in stable condition. COMPLICATIONS: None Acute toxicity: (during radiation) Radiation Dermatitis: None=0 Hoarseness: None Esophageal Injury: Grade 0 = None Radiation Pneumonitis: Grade 0 None Cough: no Dyspnea: Grade 0 none Diarrhea: Grade 0 none Nausea: Grade 0 = None Dysuria: no Fatigue: Grade 0: No Fatigue Pain Flare: no Myelopathy: None PLAN: Tolerated the procedure well without complications. [facility]-based Stereotactic Radiotherapy, when complete, the patient will have relevant imaging and follow-up visits at an appropriate time point as clinically indicated. He is to continue current dose of dexamethasone during RT and we can taper as per instructions after treatment. Nursing team has conveyed the taper instructions. Andrea Farris MD, PhD Department of Radiation Oncology [facility] RAD ONC ARIA FRACTION SUMMAR Yon 12-27-2024 Course Elapsed Days 2 [facility] Course First Treatment Date 12/25/2024 8:03 AM [facility] Course ID C1 Bone Mets [facility] Course Last Treatment Date 12/27/2024 9:22 AM [facility] Energy 10X / 6X [facility] Fraction Number 3 [facility] Plan Dose Delivered to Date 1800 cGy [facility] Plan Fractions Treated to Date 3 [facility] Plan ID T2 [facility] Plan Prescribed Dose Per Fraction 600 cGy [facility] Plan Primary Reference Point 1.A T2 [facility] Plan Total Fractions Prescribed 5 [facility] Plan Total Prescribed Dose 3000 cGy [facility] Reference Point ID 1.A T2 [facility] Treatment Dates 5 [facility] Radiology Study observation (narrative) [facility] GENERAL PROCEDUREon 12-27-19 Jessy Martins MD, DPhil - 12/26/2024 9:40 AM EDT [facility] Stereotactic Radiosurgery (SRS) Note: 12/26/2024 RADIATION ONCOLOGIST: Jessy Martins MD, DPhil (covering for Andrea Farris MD, PhD) NEUROSURGEON: Jeremy Vazquez MD Primary disease: Renal Histopathology: Renal cell carcinoma PROCEDURE PERFORMED: SRS MACHINE: [employer] STX CLINICAL TARGETS: 1. Lesion begins at T2 ends at T2. Lesion treated to 30 Gy in 5 fraction/s using VMAT arcs with 6MV and/or 10MV photons FFF Fraction 2 of 5 CONSENT: Informed consent was obtained prior to the procedure. Procedure risks, benefits, alternatives and expected outcomes were discussed with the patient. Consent(s) were scanned into the electronic medical record. UNIVERSAL PROTOCOL/ TIMEOUT: Preprocedure verification is complete patient verified and consents confirmed, procedure sites are identified and marked, timeout was called before the start of the procedure. INDICATIONS FOR PROCEDURE: 69 y.o. male with: metastatic renal cell carcinoma, clear type since 2010. Underwent left radical nephrectomy with negative lymph nodes on 10/29/2010, s/p ipilumumab/nivolamab, s/p pembrolizumab/axitinib , and currently on axitinib 5mg once daily. He was found to have upper back pain end of October 2024 and work-up showed a T2 pathologic fracture SINS 13 (unstable) and Bilsky 1c. He is a non-surgical candidate. We are planning 30 Gy in 5 fractions given the Bilsky grade and Dr. Fiore is in agreement. For the stereotactic radiation therapy we will be utilizing IMRT and IGRT for better dose conformity and decreased dose to the normal structures. The risks, benefits and side effects of external beam were discussed in extensive detail and the patient s questions were answered. Side effects discussed included but not limited to fatigue, damage to hear and lungs, decreased blood counts, nausea, diarrhea, fracture risk due to treatment with RT, mucositis, dermatitis, pain, xerostomia, dysgeusia, hair loss, damage to blood vessels and nerves, spinal cord damage, brainstem damage, and weight loss. We look forward to seeing the patient at the time of CT simulation. Thank you for allowing us to participate in the care of your patient. If I may answer any questions, please do not hesitate to contact me at any time. We are treating to improve local tumor control. PROCEDURE DETAILS: CT for treatment planning was previously obtained. The images were transferred to the treatment planning computer and the images were fused with recent MRI. The target and adjacent normal structures were outlined. Multiple plans were run and the dose plan giving the maximum dose to the target and minimum dose to the normal tissue was chosen. quality assurance qa lab technician checks were performed on the plan and treatments were initiated today. The patient's head was immobilized utilizing the encompass frameless mask. Cone beam was taken and minor shifts were made after approved by me for each of the clinical targets. The patient received treatment with 6 MV photons delivering a doses of as described above. After the treatment was completed, the mask was removed from the patient. There were no vitals filed for this visit. Neurologic exam: AOx3, no new focal neurologic signs KPS: Performance status: Karnofsky scale 80 (ECOG grade 1) Performs normal activity with effort; some signs & symptoms of disease CONDITION: The patient tolerated the procedure well and was in stable condition. COMPLICATIONS: None Acute toxicity: (during radiation) Radiation Dermatitis: None=0 Hoarseness: None Esophageal Injury: Grade 0 = None Radiation Pneumonitis: Grade 0 None Cough: no Dyspnea: Grade 0 none Diarrhea: Grade 0 none Nausea: Grade 0 = None Dysuria: no Fatigue: Grade 0: No Fatigue Pain Flare: no Myelopathy: None PLAN: Tolerated the procedure well without complications. LIN[facility]-based Stereotactic Radiotherapy, when complete, the patient will have relevant imaging and follow-up visits at an appropriate time point as clinically indicated. He is to continue current dose of dexamethasone during RT and we can taper as per instructions after treatment. Nursing team has conveyed the taper instructions. Jessy Martins MD, DPhil Department of Radiation Oncology [facility] Radiology Study observation (narrative) [facility] RAD ONC ARIA FRACTION SUMMAR Yon 12-26-2024 Course Elapsed Days 1 [facility] Course First Treatment Date 12/25/2024 8:03 AM [facility] Course ID C1 Bone Mets [facility] Course Last Treatment Date 12/26/2024 9:46 AM [facility] Energy 10X / 6X [facility] Fraction Number 2 [facility] Plan Dose Delivered to Date 1200 cGy [facility] Plan Fractions Treated to Date 2 [facility] Plan ID T2 [facility] Plan Prescribed Dose Per Fraction 600 cGy [facility] Plan Primary Reference Point 1.A T2 [facility] Plan Total Fractions Prescribed 5 [facility] Plan Total Prescribed Dose 3000 cGy [facility] Reference Point ID 1.A T2 [facility] Treatment Dates 5 [facility]iology [facility]) [facility]-26-19 25 Paulina hSepherd, PhD - 12/25/2024 7:40 AM EDT [facility] Stereotactic Radiosurgery (SRS) Note: 12/25/2024 RADIATION ONCOLOGIST: Andrea Farris MD, PhD NEUROSURGEON: Jeremy Vazquez MD Primary disease: Renal Histopathology: Renal cell carcinoma PROCEDURE PERFORMED: SRS MACHINE: [employer] STX CLINICAL TARGETS: 1. Lesion begins at T2 ends at T2. Lesion treated to 30 Gy in 5 fraction/s using VMAT arcs with 6MV and/or 10MV photons FFF Fraction 1 of 5 2. Lesion begins at N/A ends at N/A. 3. Lesion begins at N/A ends at N/A. 4. Lesion begins at N/A ends at N/A. CONSENT: Informed consent was obtained prior to the procedure. Procedure risks, benefits, alternatives and expected outcomes were discussed with the patient. Consent(s) were scanned into the electronic medical record. UNIVERSAL PROTOCOL/ TIMEOUT: Preprocedure verification is complete patient verified and consents confirmed, procedure sites are identified and marked, timeout was called before the start of the procedure. INDICATIONS FOR PROCEDURE: 69 y.o. male with: metastatic renal cell carcinoma, clear type since 2010. Underwent left radical nephrectomy with negative lymph nodes on 10/29/2010, s/p ipilumumab/nivolamab, s/p pembrolizumab/axitinib , and currently on axitinib 5mg once daily. He was found to have upper back pain end of October 2024 and work-up showed a T2 pathologic fracture SINS 13 (unstable) and Bilsky 1c. He is a non-surgical candidate. We are planning 30 Gy in 5 fractions given the Bilsky grade and Dr. Fiore is in agreement. For the stereotactic radiation therapy we will be utilizing IMRT and IGRT for better dose conformity and decreased dose to the normal structures. The risks, benefits and side effects of external beam were discussed in extensive detail and the patient s questions were answered. Side effects discussed included but not limited to fatigue, damage to hear and lungs, decreased blood counts, nausea, diarrhea, fracture risk due to treatment with RT, mucositis, dermatitis, pain, xerostomia, dysgeusia, hair loss, damage to blood vessels and nerves, spinal cord damage, brainstem damage, and weight loss. We look forward to seeing the patient at the time of CT simulation. Thank you for allowing us to participate in the care of your patient. If I may answer any questions, please do not hesitate to contact me at any time. We are treating to improve local tumor control. PROCEDURE DETAILS: CT for treatment planning was previously obtained. The images were transferred to the treatment planning computer and the images were fused with recent MRI. The target and adjacent normal structures were outlined. Multiple plans were run and the dose plan giving the maximum dose to the target and minimum dose to the normal tissue was chosen. quality assurance qa lab technician checks were performed on the plan and treatments were initiated today. The patient's head was immobilized utilizing the encompass frameless mask. Cone beam was taken and minor shifts were made after approved by me for each of the clinical targets. The patient received treatment with 6 MV photons delivering a doses of as described above. After the treatment was completed, the mask was removed from the patient. There were no vitals filed for this visit. Neurologic exam: AOx3, no new focal neurologic signs KPS: Performance status: Karnofsky scale 80 (ECOG grade 1) Performs normal activity with effort; some signs & symptoms of disease CONDITION: The patient tolerated the procedure well and was in stable condition. COMPLICATIONS: None Acute toxicity: (during radiation) Radiation Dermatitis: None=0 Hoarseness: None Esophageal Injury: Grade 0 = None Radiation Pneumonitis: Grade 0 None Cough: no Dyspnea: Grade 0 none Diarrhea: Grade 0 none Nausea: Grade 0 = None Dysuria: no Fatigue: Grade 0: No Fatigue Pain Flare: no Myelopathy: None PLAN: Tolerated the procedure well without complications. LINAC-based Stereotactic Radiotherapy, when complete, the patient will have relevant imaging and follow-up visits at an appropriate time point as clinically indicated. He is to continue current dose of dexamethasone during RT and we can taper as per instructions after treatment. Nursing team has conveyed the taper instructions. Andrea Farris MD, PhD Department of Radiation Oncology [facility] Radiology Study observation (narrative) [facility] RAD ONC ARIA FRACTION SUMMAR Yon 12-25-2024 [facility] Treatment Date 12/25/2024 8:03 AM [facility] Course ID C1 Bone Mets [facility] Course Last Treatment Date 12/25/2024 8:04 AM [facility] Energy 10X / 6X [facility] Fraction Number 1 [facility] Plan Dose Delivered to Date 600 cGy [facility] Plan Fractions Treated to Date 1 [facility] Plan ID T2 [facility] Plan Prescribed Dose Per Fraction 600 cGy [facility] Plan Primary Reference Point 1.A T2 [facility] Plan Total Fractions Prescribed 5 [facility] Plan Total Prescribed Dose 3000 cGy [facility] Reference Point ID 1.A T2 [facility] Treatment Dates 5 [facility] Radiology Study observation (narrative) [facility] CT Cervical and thoracic and lumbar spine WO contraston 11-24-2024 IMPRESSION: 1. Lytic lesion within the T2 vertebral body associated with approximately 50 percent vertebral body height loss. Minimal retropulsion. Some extraosseous tumor extension of the ventral epidural space with associated spinal canal stenosis, better appreciated on same day MRI. 2. A few punctate lucencies are noted elsewhere within the cervical, thoracic, lumbar spine, which are indeterminate but may represent additional tiny foci of osseous metastatic disease. 3. No severe spinal canal stenosis. 4. Multiple pulmonary nodules and multiple cystic and, possibly solid, lesions within the right kidney. Please refer to recent outside dedicated chest and abdomen CTs. OLOGY EXAM: CT SPINE CERVICAL THORACIC LUMBAR WITHOUT CONTRAST, 11/23/2024 16:10 PM COMPARISON: MRI cervical and thoracic spine (outside image) November 20, 2024 CLINICAL INDICATIONS: 68 years Male SURGICAL PLANNING RELEVANT CLINICAL HISTORY: C79.51:Metastatic cancer to spine STEALTH PROTOCOL; TECHNIQUE: A series of transaxial multi-slice computerized tomographic thin-section source images of the cervical, thoracic and lumbosacral spine are obtained in a helical acquisition without contrast. Axial, coronal and sagittal reformats are provided. FINDINGS: Cervical: Alignment is normal. Vertebral bodies are normal in height. There are a few punctate lucent lesions within the cervical spine, which are indeterminate. For instance within C4 (series 8, image 30), and within the inferior C3 vertebral body (image 32). Degenerative changes of the intervertebral disc with disc height loss and endplate osteophyte formation. Mild to moderate spinal canal stenosis at C4-C5. Mild bilateral neural foraminal narrowing at C4-C5 and moderate bilateral neural foraminal narrowing at C5-C6. Skull base and craniocervical junction is within normal limits. Thoracic: Alignment is normal. Lytic lesion involving the T2 vertebral body, most conspicuous within the right pedicle associated with a pathologic compression fracture. There is approximately 50 percent vertebral body height loss with minimal retropulsion. There are some extraosseous tumor extension into the ventral and right lateral epidural space measuring 3 mm in thickness associated with spinal canal stenosis, better appreciated on same day MRI. There is also some soft tissue extension along the anterior aspect of the vertebral bodies from T1 to T3. A few additional tiny lucent lesions are visualized elsewhere within the thoracic spine, which may represent additional scattered foci of metastatic disease. There is mild erosive change involving the anterior inferior aspect of T1, which may represent additional area of tumor involvement. Degenerative changes of the intervertebral disc with disc height loss. Bridging anterior osteophytes throughout the majority of the thoracic spine. Lumbar: Trace anterolisthesis of L4 on L5. Alignment is otherwise intact. Vertebral bodies are normal in height. A few punctate lucencies within the lumbar vertebral bodies including along the inferior aspect of L3 (series 8, image 31). A few Schmorl's nodes are visualized along the endplates. Degenerative changes of the intervertebral disc with mild disc height loss. No significant spinal canal stenosis. Mild neural foraminal narrowing at a few levels. Soft tissues: Multiple nodules visualized within the lungs. Multiple cystic and questionably solid lesions in the right kidney, suboptimally evaluated on this noncontrast exam. Status post left nephrectomy. Please see recent outside chest and abdomen CTs dated 11/09/2024 and 10/04/2024 for additional details. RADIOLOGY Bentley Wagoner MD - 11/24/2024 EXAM: CT SPINE CERVICAL THORACIC LUMBAR WITHOUT CONTRAST, 11/23/2024 16:10 PM COMPARISON: MRI cervical and thoracic spine (outside image) November 20, 2024 CLINICAL INDICATIONS: 68 years Male SURGICAL PLANNING RELEVANT CLINICAL HISTORY: C79.51:Metastatic cancer to spine STEALTH PROTOCOL; TECHNIQUE: A series of transaxial multi-slice computerized tomographic thin-section source images of the cervical, thoracic and lumbosacral spine are obtained in a helical acquisition without contrast. Axial, coronal and sagittal reformats are provided. FINDINGS: Cervical: Alignment is normal. Vertebral bodies are normal in height. There are a few punctate lucent lesions within the cervical spine, which are indeterminate. For instance within C4 (series 8, image 30), and within the inferior C3 vertebral body (image 32). Degenerative changes of the intervertebral disc with disc height loss and endplate osteophyte formation. Mild to moderate spinal canal stenosis at C4-C5. Mild bilateral neural foraminal narrowing at C4-C5 and moderate bilateral neural foraminal narrowing at C5-C6. Skull base and craniocervical junction is within normal limits. Thoracic: Alignment is normal. Lytic lesion involving the T2 vertebral body, most conspicuous within the right pedicle associated with a pathologic compression fracture. There is approximately 50 percent vertebral body height loss with minimal retropulsion. There are some extraosseous tumor extension into the ventral and right lateral epidural space measuring 3 mm in thickness associated with spinal canal stenosis, better appreciated on same day MRI. There is also some soft tissue extension along the anterior aspect of the vertebral bodies from T1 to T3. A few additional tiny lucent lesions are visualized elsewhere within the thoracic spine, which may represent additional scattered foci of metastatic disease. There is mild erosive change involving the anterior inferior aspect of T1, which may represent additional area of tumor involvement. Degenerative changes of the intervertebral disc with disc height loss. Bridging anterior osteophytes throughout the majority of the thoracic spine. Lumbar: Trace anterolisthesis of L4 on L5. Alignment is otherwise intact. Vertebral bodies are normal in height. A few punctate lucencies within the lumbar vertebral bodies including along the inferior aspect of L3 (series 8, image 31). A few Schmorl's nodes are visualized along the endplates. Degenerative changes of the intervertebral disc with mild disc height loss. No significant spinal canal stenosis. Mild neural foraminal narrowing at a few levels. Soft tissues: Multiple nodules visualized within the lungs. Multiple cystic and questionably solid lesions in the right kidney, suboptimally evaluated on this noncontrast exam. Status post left nephrectomy. Please see recent outside chest and abdomen CTs dated 11/09/2024 and 10/04/2024 for additional details. IMPRESSION IMPRESSION: 1. Lytic lesion within the T2 vertebral body associated with approximately 50 percent vertebral body height loss. Minimal retropulsion. Some extraosseous tumor extension of the ventral epidural space with associated spinal canal stenosis, better appreciated on same day MRI. 2. A few punctate lucencies are noted elsewhere within the cervical, thoracic, lumbar spine, which are indeterminate but may represent additional tiny foci of osseous metastatic disease. 3. No severe spinal canal stenosis. 4. Multiple pulmonary nodules and multiple cystic and, possibly solid, lesions within the right kidney. Please refer to recent outside dedicated chest and abdomen CTs. [facility] CT Cervical and thoracic and lumbar spine WO contrastOrdered By: Bentley Wagoner on 11-24-2024 [facility] Work Phone: CT SPINE CERVICAL THORACIC L UMBAR WITHOUT CONTRASTon 11-24-2024 CT SPINE CERVICAL THORACIC LUMBAR WITHOUT CONTRAST EXAM: CT SPINE CERVICAL THORACIC LUMBAR WITHOUT CONTRAST, 11/23/2024 16:10 PM COMPARISON: MRI cervical and thoracic spine (outside image) November 20, 2024 CLINICAL INDICATIONS: 68 years Male SURGICAL PLANNING RELEVANT CLINICAL HISTORY: C79.51:Metastatic cancer to spine STEALTH PROTOCOL; TECHNIQUE: A series of transaxial multi-slice computerized tomographic thin-section source images of the cervical, thoracic and lumbosacral spine are obtained in a helical acquisition without contrast. Axial, coronal and sagittal reformats are provided. FINDINGS: Cervical: Alignment is normal. Vertebral bodies are normal in height. There are a few punctate lucent lesions within the cervical spine, which are indeterminate. For instance within C4 (series 8, image 30), and within the inferior C3 vertebral body (image 32). Degenerative changes of the intervertebral disc with disc height loss and endplate osteophyte formation. Mild to moderate spinal canal stenosis at C4-C5. Mild bilateral neural foraminal narrowing at C4-C5 and moderate bilateral neural foraminal narrowing at C5-C6. Skull base and craniocervical junction is within normal limits. Thoracic: Alignment is normal. Lytic lesion involving the T2 vertebral body, most conspicuous within the right pedicle associated with a pathologic compression fracture. There is approximately 50 percent vertebral body height loss with minimal retropulsion. There are some extraosseous tumor extension into the ventral and right lateral epidural space measuring 3 mm in thickness associated with spinal canal stenosis, better appreciated on same day MRI. There is also some soft tissue extension along the anterior aspect of the vertebral bodies from T1 to T3. A few additional tiny lucent lesions are visualized elsewhere within the thoracic spine, which may represent additional scattered foci of metastatic disease. There is mild erosive change involving the anterior inferior aspect of T1, which may represent additional area of tumor involvement. Degenerative changes of the intervertebral disc with disc height loss. Bridging anterior osteophytes throughout the majority of the thoracic spine. Lumbar: Trace anterolisthesis of L4 on L5. Alignment is otherwise intact. Vertebral bodies are normal in height. A few punctate lucencies within the lumbar vertebral bodies including along the inferior aspect of L3 (series 8, image 31). A few Schmorl's nodes are visualized along the endplates. Degenerative changes of the intervertebral disc with mild disc height loss. No significant spinal canal stenosis. Mild neural foraminal narrowing at a few levels. Soft tissues: Multiple nodules visualized within the lungs. Multiple cystic and questionably solid lesions in the right kidney, suboptimally evaluated on this noncontrast exam. Status post left nephrectomy. Please see recent outside chest and abdomen CTs dated 11/09/2024 and 10/04/2024 for additional details. IMPRESSION: 1. Lytic lesion within the T2 vertebral body associated with approximately 50 percent vertebral body height loss. Minimal retropulsion. Some extraosseous tumor extension of the ventral epidural space with associated spinal canal stenosis, better appreciated on same day MRI. 2. A few punctate lucencies are noted elsewhere within the cervical, thoracic, lumbar spine, which are indeterminate but may represent additional tiny foci of osseous metastatic disease. 3. No severe spinal canal stenosis. 4. Multiple pulmonary nodules and multiple cystic and, possibly solid, lesions within the right kidney. Please refer to recent outside dedicated chest and abdomen CTs. Normal [facility] MR Thoracic spine WO and W aaron ontrast Darshana 11-24-2024 IMPRESSION: 1. Findings concerning for osseous metastasis within the T2 vertebral body associated with a pathologic compression fracture with 50 percent height loss and minimal retropulsion. Suspect ventral and right lateral epidural tumor extension associated with mild to moderate spinal canal stenosis. No significant cord compression. 2. Multiple additional subcentimeter STIR hyperintense, enhancing lesions noted within the thoracic spine, concerning for additional scattered foci of osseous metastatic disease. OLOGY EXAM: MRI SPINE PERFUSION THORACIC WITH AND WITHOUT CONTRAST, 11/23/2024 19:57 PM COMPARISON: MRI SPINE THORACIC (OUTSIDE IMAGE) November 20, 2024 CLINICAL INDICATIONS: 68 years Male spine mets RELEVANT CLINICAL HISTORY: C79.51:Metastatic cancer to spine Please obtain a 3T spine MRI with PERFUSION per stereotactic protocol including T2 SPACE (sagittal and axial) and T1 axial vibe pre and post contrast (2mm) on (celio). ?The patient has spinal metastases.; TECHNIQUE: A series of sagittal and axial multisequence images of the thoracic spine were obtained both before and after intravenous administration of gadolinium-based contrast. DCE MR perfusion was performed. CONTRAST: Gadopiclenol SOLN 1-25 mL; Route of Administration: Intravenous; Dose: 10 mL. FINDINGS: Alignment is normal. There is marrow replacing lesion within the T2 vertebral body associated a pathologic fracture resulting in 50 percent height loss. There is minimal retropulsion. There is suspected ventral and right lateral epidural tumor extension measuring 3 mm associated with mild to moderate spinal canal stenosis (Bilsky grade 1C). The tumor abuts the anterior margin of the thoracic cord without significant cord compression. There is narrowing of the right T2-T3 neural foramen with moderate to severe stenosis. There are a multiple additional subcentimeter STIR hyperintense enhancing lesions, which are not T1 hyperintense, which are suspicious for additional small osseous metastases, including at T1, T4, T7, T9, T10, and T11. A few intraosseous hemangiomas are present. The rest of the vertebral bodies are normal in height. A few pulmonary nodules. Multilevel degenerative changes of the intervertebral discs with evidence of disc height loss and disc desiccation. No significant thoracic canal stenosis or cord compression elsewhere. No abnormal cord signal. No leptomeningeal enhancement. Perfusion: There is low ktrans within the T2 vertebral body, indeterminate. DISTRIBUTION OPERATIONS SUPERVISOR is unremarkable. RADIOLOGY Bentley Wagoner MD - 11/24/2024 EXAM: MRI SPINE PERFUSION THORACIC WITH AND WITHOUT CONTRAST, 11/23/2024 19:57 PM COMPARISON: MRI SPINE THORACIC (OUTSIDE IMAGE) November 20, 2024 CLINICAL INDICATIONS: 68 years Male spine mets RELEVANT CLINICAL HISTORY: C79.51:Metastatic cancer to spine Please obtain a 3T spine MRI with PERFUSION per stereotactic protocol including T2 SPACE (sagittal and axial) and T1 axial vibe pre and post contrast (2mm) on (celio). ?The patient has spinal metastases.; TECHNIQUE: A series of sagittal and axial multisequence images of the thoracic spine were obtained both before and after intravenous administration of gadolinium-based contrast. DCE MR perfusion was performed. CONTRAST: Gadopiclenol SOLN 1-25 mL; Route of Administration: Intravenous; Dose: 10 mL. FINDINGS: Alignment is normal. There is marrow replacing lesion within the T2 vertebral body associated a pathologic fracture resulting in 50 percent height loss. There is minimal retropulsion. There is suspected ventral and right lateral epidural tumor extension measuring 3 mm associated with mild to moderate spinal canal stenosis (Bilsky grade 1C). The tumor abuts the anterior margin of the thoracic cord without significant cord compression. There is narrowing of the right T2-T3 neural foramen with moderate to severe stenosis. There are a multiple additional subcentimeter STIR hyperintense enhancing lesions, which are not T1 hyperintense, which are suspicious for additional small osseous metastases, including at T1, T4, T7, T9, T10, and T11. A few intraosseous hemangiomas are present. The rest of the vertebral bodies are normal in height. A few pulmonary nodules. Multilevel degenerative changes of the intervertebral discs with evidence of disc height loss and disc desiccation. No significant thoracic canal stenosis or cord compression elsewhere. No abnormal cord signal. No leptomeningeal enhancement. Perfusion: There is low ktrans within the T2 vertebral body, indeterminate. DISTRIBUTION OPERATIONS SUPERVISOR is unremarkable. IMPRESSION IMPRESSION: 1. Findings concerning for osseous metastasis within the T2 vertebral body associated with a pathologic compression fracture with 50 percent height loss and minimal retropulsion. Suspect ventral and right lateral epidural tumor extension associated with mild to moderate spinal canal stenosis. No significant cord compression. 2. Multiple additional subcentimeter STIR hyperintense, enhancing lesions noted within the thoracic spine, concerning for additional scattered foci of osseous metastatic disease. [facility] MRI SPINE PERFUSION THORACIC WITH AND WITHOUT CONTRASTon 11-24-2024 MRI SPINE PERFUSION THORACIC WITH AND WITHOUT CONTRAST EXAM: MRI SPINE PERFUSION THORACIC WITH AND WITHOUT CONTRAST, 11/23/2024 19:57 PM COMPARISON: MRI SPINE THORACIC (OUTSIDE IMAGE) November 20, 2024 CLINICAL INDICATIONS: 68 years Male spine mets RELEVANT CLINICAL HISTORY: C79.51:Metastatic cancer to spine Please obtain a 3T spine MRI with PERFUSION per stereotactic protocol including T2 SPACE (sagittal and axial) and T1 axial vibe pre and post contrast (2mm) on (celio). ?The patient has spinal metastases.; TECHNIQUE: A series of sagittal and axial multisequence images of the thoracic spine were obtained both before and after intravenous administration of gadolinium-based contrast. DCE MR perfusion was performed. CONTRAST: Gadopiclenol SOLN 1-25 mL; Route of Administration: Intravenous; Dose: 10 mL. FINDINGS: Alignment is normal. There is marrow replacing lesion within the T2 vertebral body associated a pathologic fracture resulting in 50 percent height loss. There is minimal retropulsion. There is suspected ventral and right lateral epidural tumor extension measuring 3 mm associated with mild to moderate spinal canal stenosis (Bilsky grade 1C). The tumor abuts the anterior margin of the thoracic cord without significant cord compression. There is narrowing of the right T2-T3 neural foramen with moderate to severe stenosis. There are a multiple additional subcentimeter STIR hyperintense enhancing lesions, which are not T1 hyperintense, which are suspicious for additional small osseous metastases, including at T1, T4, T7, T9, T10, and T11. A few intraosseous hemangiomas are present. The rest of the vertebral bodies are normal in height. A few pulmonary nodules. Multilevel degenerative changes of the intervertebral discs with evidence of disc height loss and disc desiccation. No significant thoracic canal stenosis or cord compression elsewhere. No abnormal cord signal. No leptomeningeal enhancement. Perfusion: There is low ktrans within the T2 vertebral body, indeterminate. DISTRIBUTION OPERATIONS SUPERVISOR is unremarkable. IMPRESSION: 1. Findings concerning for osseous metastasis within the T2 vertebral body associated with a pathologic compression fracture with 50 percent height loss and minimal retropulsion. Suspect ventral and right lateral epidural tumor extension associated with mild to moderate spinal canal stenosis. No significant cord compression. 2. Multiple additional subcentimeter STIR hyperintense, enhancing lesions noted within the thoracic spine, concerning for additional scattered foci of osseous metastatic disease. Normal [facility] CT Cervical and thoracic and lumbar spine WO contraston 11-23-2024 Radiology Study observation (narrative) [facility] MR Thoracic spine WO and W c ontrast Darshana 11-23-2024 Radiology Study observation (narrative) [facility] ALP [Catalytic activity/Vol] Ordered By: Jeffrey Kuhn on 11-20-2024 Serum or plasma alkaline phosphatase measurement 83 U/L 40-129 [facility] ALT [Catalytic activity/Vol] Ordered By: Jeffrey Kuhn on 11-20-2024 Serum or plasma alanine aminotransferase (ALT) measurement 15 U/L <47 [facility] Absolute lymphocyte countOrd ered By: Alfreda Hogan on 11-20-2024 Lymphocytes Auto (Unsp spec) [#/Vol] 0.83 10*3/uL 0.83-4.51 [facility] Absolute lymphocyte countOrd ered By: Jeffrey Kuhn on 11-20-2024 Lymphocytes Auto (Unsp spec) [#/Vol] 0.73 10*3/uL Low 0.83-4.51 [facility] Absolute neutrophil countOrd ered By: Alfreda Hogan on 11-20-2024 Absolute neutrophil count 7.9 X10^3/uL High 2.0-7.7 [facility] Absolute neutrophil countOrd ered By: Jeffrey Kuhn on 11-20-2024 Absolute neutrophil count 6.6 X10^3/uL 2.0-7.7 [facility] Albumin [Mass/Vol]Ordered By : Jeffrey Kuhn on 11-20-2024 Serum or plasma albumin measurement (mass/volume) 3.0 g/dL Low 3.4-4.8 [facility] Albumin/Globulin [Mass ratio ]Ordered By: Jeffrey Kuhn on 11-20-2024 Serum or plasma albumin/globulin mass ratio 0.8 RATIO Low 0.9-2.4 [facility] Anion gap [Moles/Vol]Ordered By: Alfreda Hogan on 11-20-2024 Anion gap in Serum or Plasma 17 High 5-15 [facility] Anion gap [Moles/Vol]Ordered By: Jeffrey Kuhn on 11-20-2024 Anion gap in Serum or Plasma 16 High - [facility] Anion gap in Serum or Plasma Ordered By: Alfreda Hogan on 11-20-2024 Anion gap [Moles/Vol] 17 mmol/L High -15 [facility] Anion gap in Serum or Plasma Ordered By: Jeffrey Kuhn on 11-20-2024 Anion gap [Moles/Vol] 16 mmol/L High - [facility] Automated lymphocyte count a s percentage of total leukocytesOrdered By: Alfreda Hogan on 11-20-2024 Lymphocytes/100 WBC Auto (Unsp spec) 8.3 % Low [facility] Automated lymphocyte count a s percentage of total leukocytesOrdered By: Jeffrey Kuhn on 11-20-2024 Lymphocytes/100 WBC Auto (Unsp spec) 8.8 % Low [facility] BUN/creatinine ratioOrdered By: Alfreda Hogan on 11-20-2024 Urea nitrogen/Creatinine [Mass ratio] 12.3 mg/mg 05-14 [facility] BUN/creatinine ratio 12.3 RATIO 05-14 [facility] BUN/creatinine ratioOrdered By: Jeffrey Kuhn on 11-20-2024 Urea nitrogen/Creatinine [Mass ratio] 12.1 mg/mg 05-14 [facility] BUN/creatinine ratio 12.[address] [place] [address] Basic Metabolic Profile (BMP )on 11-20-2024 BUN/CRE 12.3 RATIO Normal 05-14 [facility] Comment on above: Performed By: #### L 100.0100, L500.2500 ####[facility] [address] [place], [address] Calcium [Mass/Vol] 9.6 mg/dL Normal 7.6-11.0 [facility] Comment on above: Performed By: #### L 100.0100, L500.2500 ####[facility] [address] [place], [address] Chloride [Moles/Vol] 95 mmol/L Low 98-108 [facility] Comment on above: Performed By: #### L 100.0100, L500.2500 ####[facility] [address] [place], [address] CO2 [Moles/Vol] 22.9 mmol/L Normal 21.0-32.0 [facility] Comment on above: Performed By: #### L 100.0100, L500.2500 ####[facility] [address] [place], [address] Creatinine [Mass/Vol] 5.41 mg/dL High 0.70-1.20 [facility] Comment on above: Performed By: #### L 100.0100, L500.2500 ####[facility] [address] [place], [address] ECRCL 15.97 ml/min Low 50-250 [facility] Comment on above: Performed By: #### L 100.0100, L500.2500 ####[facility] [address] [place], [address] GAP 17 High 5-15 [facility] Comment on above: Performed By: #### L 100.0100, L500.2500 ####[facility] [address] [place], [address] GFR/1.73 sq M.predicted among non-blacks MDRD (S/P/Bld) [Vol rate/Area] 11 mL/min/{1.73_m2} Low >60 [facility] Comment on above: Result Comment: mL/m in/1.73m2 CKD-EPI Creatinine Equation (2020) Performed By: #### L 100.0100, L500.2500 ####[facility] [address] [place], [address] Glucose [Mass/Vol] 74 mg/dL Normal 70-99 [facility] Comment on above: Performed By: #### L 100.0100, L500.2500 ####[facility] [address] [place], [address] Potassium [Moles/Vol] 4.8 mmol/L Normal 3.3-5.1 [facility] Comment on above: Performed By: #### L 100.0100, L500.2500 ####[facility] [address] [place], [address] Sodium [Moles/Vol] 135 mmol/L Normal 133-145 [facility] Comment on above: Performed By: #### L 100.0100, L500.2500 ####[facility] [address] [place], [address] Urea nitrogen [Mass/Vol] 67 mg/dL High 4-19 [facility] Comment on above: Performed By: #### L 100.0100, L500.2500 ####[facility] [address] [place], [address] Basophil percentageOrdered B y: Alfreda Hogan on 11-20-2024 Basophils/100 WBC (Bld) 0.9 % 0-1 [facility] Basophil percentage 0.9 % 0-1 [facility] Basophil percentageOrdered B y: Jeffrey Kuhn on 11-20-2024 Basophils/100 WBC (Bld) 0.7 % 0-1 [facility] Basophil percentage 0.7 % 0-1 [facility] Bilirubin, totalOrdered By: Jeffrey Kuhn on 11-20-2024 Bilirubin [Mass/Vol] 0.62 mg/dL 0.00-1.30 [facility] Bilirubin, total 0.62 mg/dL 0.00-1.30 [facility] CBC W/Diff, Automatedon 10-25 Absolute Lymph 0.83 X10 3/uL Normal 0.83-4.51 [facility] Comment on above: Performed By: #### L 100.0100, L500.2500 ####[facility] [address] [place], [address] Absolute Neut 7.9 X10 3/uL High 2.0-7.7 [facility] Comment on above: Performed By: #### L 100.0100, L500.2500 ####[facility] [address] [place], [address] Basophils/100 WBC (Bld) 0.9 % Normal 0-1 [facility] Comment on above: Performed By: #### L 100.0100, L500.2500 ####[facility] [address] [place], [address] Eosinophils/100 WBC (Bld) 1.0 % Normal 0-5 [facility] Comment on above: Performed By: #### L 100.0100, L500.2500 ####[facility] [address] [place], [address] Erythrocyte distribution width (RBC) [Ratio] 17.4 % High 11.6-14.6 [facility] Comment on above: Performed By: #### L 100.0100, L500.2500 ####[facility] [address] [place], [address] Hematocrit (Bld) [Volume fraction] 37.5 % Low 40-54 [facility] Comment on above: Performed By: #### L 100.0100, L500.2500 ####[facility] [address] [place], [address] Hemoglobin (Bld) [Mass/Vol] 11.4 g/dL Low 13.0-16.5 [facility] Comment on above: Performed By: #### L 100.0100, L500.2500 ####[facility] [address] [place], [address] IG% 0.500 Normal 0.0-0.9 [facility] Comment on above: Result Comment: IG% - Immature Granulocytes (promyelocytes, myelocytes andmetamyelocytes) > 1% indicates that a LEFT SHIFT is Present. Performed By: #### L 100.0100, L500.2500 ####[facility] [address] [place], [address] Lymphocytes/100 WBC (Bld) 8.3 % Low 19-41 [facility] Comment on above: Performed By: #### L 100.0100, L500.2500 ####[facility] [address] [place], [address] MCH (RBC) [Entitic mass] 27.6 pg Normal 27.0-32.0 [facility] Comment on above: Performed By: #### L 100.0100, L500.2500 ####[facility] [address] [place], [address] MCHC (RBC) [Mass/Vol] 30.4 g/dL Low 32-36 [facility] Comment on above: Performed By: #### L 100.0100, L500.2500 ####[facility] [address] [place], [address] MCV (RBC) [Entitic vol] 90.8 fL Normal 80-94 [facility] Comment on above: Performed By: #### L 100.0100, L500.2500 ####[facility] [address] [place], [address] Monocytes/100 WBC (Bld) 9.5 % Normal 0-10 [facility] Comment on above: Performed By: #### L 100.0100, L500.2500 ####[facility] [address] [place], [address] Neutrophils/100 WBC (Bld) 79.8 % High 47-70 [facility] Comment on above: Performed By: #### L 100.0100, L500.2500 ####[facility] [address] [place], [address] Nucleated RBC (Bld) [#/Vol] 0 10*3/uL Normal 0-5 [facility] Comment on above: Performed By: #### L 100.0100, L500.2500 ####[facility] [address] [place], [address] Platelet mean volume (Bld) [Entitic vol] 9.3 fL Normal 6.2-12.0 [facility] Comment on above: Performed By: #### L 100.0100, L500.2500 ####[facility] [address] [place], [address] Platelets (Bld) [#/Vol] 334 10*3/uL Normal 150-450 [facility] Comment on above: Performed By: #### L 100.0100, L500.2500 ####[facility] [address] [place], [address] RBC (Bld) [#/Vol] 4.13 10*6/uL Low 4.6-6.2 [facility] Comment on above: Performed By: #### L 100.0100, L500.2500 ####[facility] [address] [place], [address] RDW SD 57.1 fl High 35.1-43.9 [facility] Comment on above: Performed By: #### L 100.0100, L500.2500 ####[facility] [address] [place], [address] WBC (Bld) [#/Vol] 10.0 10*3/uL Normal 4.4-11.0 [facility] Comment on above: Performed By: #### L 100.0100, L500.2500 ####[facility] [address] [place], [address] Absolute Lymph 0.73 X10 3/uL Low 0.83-4.51 [facility] Comment on above: Performed By: #### L 500.4050, L100.0100, L504.2610 ####[facility] [address] [place], [address] Absolute Neut 6.6 X10 3/uL Normal 2.0-7.7 [facility] Comment on above: Performed By: #### L 500.4050, L100.0100, L504.2610 ####[facility] [address] [place], [address] Basophils/100 WBC (Bld) 0.7 % Normal 0-1 [facility] Comment on above: Performed By: #### L 500.4050, L100.0100, L504.2610 ####[facility] [address] [place], [address] Eosinophils/100 WBC (Bld) 1.2 % Normal 0-5 [facility] Comment on above: Performed By: #### L 500.4050, L100.0100, L504.2610 ####[facility] [address] [place], [address] Erythrocyte distribution width (RBC) [Ratio] 17.3 % High 11.6-14.6 [facility] Comment on above: Performed By: #### L 500.4050, L100.0100, L504.2610 ####[facility] [address] [place], [address] Hematocrit (Bld) [Volume fraction] 37.0 % Low 40-54 [facility] Comment on above: Performed By: #### L 500.4050, L100.0100, L504.2610 ####[facility] [address] [place], [address] Hemoglobin (Bld) [Mass/Vol] 11.4 g/dL Low 13.0-16.5 [facility] Comment on above: Performed By: #### L 500.4050, L100.0100, L504.2610 ####[facility] [address] [place], [address] IG% 0.400 Normal 0.0-0.9 [facility] Comment on above: Result Comment: IG% - Immature Granulocytes (promyelocytes, myelocytes andmetamyelocytes) > 1% indicates that a LEFT SHIFT is Present. Performed By: #### L 500.4050, L100.0100, L504.2610 ####[facility] [address] [place], [address] Lymphocytes/100 WBC (Bld) 8.8 % Low 19-41 [facility] Comment on above: Performed By: #### L 500.4050, L100.0100, L504.2610 ####[facility] [address] [place], [address] MCH (RBC) [Entitic mass] 27.9 pg Normal 27.0-32.0 [facility] Comment on above: Performed By: #### L 500.4050, L100.0100, L504.2610 ####[facility] [address] [place], [address] MCHC (RBC) [Mass/Vol] 30.8 g/dL Low 32-36 [facility] Comment on above: Performed By: #### L 500.4050, L100.0100, L504.2610 ####[facility] [address] [place], [address] MCV (RBC) [Entitic vol] 90.7 fL Normal 80-94 [facility] Comment on above: Performed By: #### L 500.4050, L100.0100, L504.2610 ####[facility] [address] [place], [address] Monocytes/100 WBC (Bld) 9.1 % Normal 0-10 [facility] Comment on above: Performed By: #### L 500.4050, L100.0100, L504.2610 ####[facility] [address] [place], [address] Neutrophils/100 WBC (Bld) 79.8 % High 47-70 [facility] Comment on above: Performed By: #### L 500.4050, L100.0100, L504.2610 ####[facility] [address] [place], [address] Nucleated RBC (Bld) [#/Vol] 0 10*3/uL Normal 0-5 [facility] Comment on above: Performed By: #### L 500.4050, L100.0100, L504.2610 ####[facility] [address] [place], [address] Platelet mean volume (Bld) [Entitic vol] 9.4 fL Normal 6.2-12.0 [facility] Comment on above: Performed By: #### L 500.4050, L100.0100, L504.2610 ####[facility] [address] [place], [address] Platelets (Bld) [#/Vol] 305 10*3/uL Normal 150-450 [facility] Comment on above: Performed By: #### L 500.4050, L100.0100, L504.2610 ####[facility] [address] [place], [address] RBC (Bld) [#/Vol] 4.08 10*6/uL Low 4.6-6.2 [facility] Comment on above: Performed By: #### L 500.4050, L100.0100, L504.2610 ####[facility] [address] [place], [address] RDW SD 56.8 fl High 35.1-43.9 [facility] Comment on above: Performed By: #### L 500.4050, L100.0100, L504.2610 ####[facility] [address] [place], [address] WBC (Bld) [#/Vol] 8.3 10*3/uL Normal 4.4-11.0 [facility] Comment on above: Performed By: #### L 500.4050, L100.0100, L504.2610 ####[facility] [address] [place], [address] Calcium [Mass/Vol]Ordered By : Alfreda Hogan on 11-20-2024 Serum or plasma calcium measurement (mass/volume) 9.6 mg/dL 7.6-11.0 [facility] Calcium [Mass/Vol]Ordered By : Jeffrey Kuhn on 11-20-2024 Serum or plasma calcium measurement (mass/volume) 9.6 mg/dL 7.6-11.0 [facility] Carbon dioxide, total [Moles /volume] in Central venous bloodOrdered By: Alfreda Hogan on 11-20-2024 CO2 [Moles/Vol] 22.9 mmol/L 21.0-32.0 [facility] Carbon dioxide, total [Moles/volume] in Central venous blood 22.9 mmol/L 21.0-32.0 [facility] Carbon dioxide, total [Moles /volume] in Central venous bloodOrdered By: Jeffrey Kuhn on 11-20-2024 CO2 [Moles/Vol] 23.5 mmol/L 21.0-32.0 [facility] Carbon dioxide, total [Moles/volume] in Central venous blood 23.5 mmol/L 21.0-32.0 [facility] Chloride assayOrdered By: Jacqueline Hogan on 11-20-2024 Chloride [Moles/Vol] 95 mmol/L Low 98-108 [facility] Chloride assay 95 mmol/L Low 98-108 [facility] Chloride assayOrdered By: Shelby Kuhn on 11-20-2024 Chloride [Moles/Vol] 94 mmol/L Low 98-108 [facility] Chloride assay 94 mmol/L Low 98-108 [facility] Comprehensive Metabolic Prof ilon 11-20-2024 Albumin [Mass/Vol] 3.0 g/dL Low 3.4-4.8 [facility] Comment on above: Performed By: #### L 500.4050, L100.0100, L504.2610 ####[facility] [address] [place], [address] Albumin/Globulin [Mass ratio] 0.8 {ratio} Low 0.9-2.4 [facility] Comment on above: Performed By: #### L 500.4050, L100.0100, L504.2610 ####[facility] [address] [place], [address] ALK PHOS 83 U/L Normal 40-129 [facility] Comment on above: Performed By: #### L 500.4050, L100.0100, L504.2610 ####[facility] [address] [place], [address] ALT [Catalytic activity/Vol] 15 U/L Normal <=46 [facility] Comment on above: Performed By: #### L 500.4050, L100.0100, L504.2610 ####[facility] [address] [place], [address] AST [Catalytic activity/Vol] 37 U/L Normal <=37 [facility] Comment on above: Performed By: #### L 500.4050, L100.0100, L504.2610 ####[facility] [address] [place], [address] Bilirubin [Mass/Vol] 0.62 mg/dL Normal 0.00-1.30 [facility] Comment on above: Performed By: #### L 500.4050, L100.0100, L504.2610 ####[facility] [address] [place], [address] BUN/CRE 12.1 RATIO Normal 10-20 [facility] Comment on above: Performed By: #### L 500.4050, L100.0100, L504.2610 ####[facility] [address] [place], [address] Calcium [Mass/Vol] 9.6 mg/dL Normal 7.6-11.0 [facility] Comment on above: Performed By: #### L 500.4050, L100.0100, L504.2610 ####[facility] [address] [place], [address] Chloride [Moles/Vol] 94 mmol/L Low 98-108 [facility] Comment on above: Performed By: #### L 500.4050, L100.0100, L504.2610 ####[facility] [address] [place], [address] CO2 [Moles/Vol] 23.5 mmol/L Normal 21.0-32.0 [facility] Comment on above: Performed By: #### L 500.4050, L100.0100, L504.2610 ####[facility] [address] [place], [address] Creatinine [Mass/Vol] 5.19 mg/dL High 0.70-1.20 [facility] Comment on above: Performed By: #### L 500.4050, L100.0100, L504.2610 ####[facility] [address] [place], [address] ECRCL 16.79 ml/min Low 50-250 [facility] Comment on above: Performed By: #### L 500.4050, L100.0100, L504.2610 ####[facility] [address] [place], [address] GAP 16 High 5-15 [facility] Comment on above: Performed By: #### L 500.4050, L100.0100, L504.2610 ####[facility] [address] [place], [address] GFR/1.73 sq M.predicted among non-blacks MDRD (S/P/Bld) [Vol rate/Area] 11 mL/min/{1.73_m2} Low >60 [facility] Comment on above: Result Comment: mL/m in/1.73m2 CKD-EPI Creatinine Equation (2020) Performed By: #### L 500.4050, L100.0100, L504.2610 ####[facility] [address] [place], [address] Globulin (S) [Mass/Vol] 4.0 g/dL Normal 2.2-4.2 [facility] Comment on above: Performed By: #### L 500.4050, L100.0100, L504.2610 ####[facility] [address] [place], [address] Glucose [Mass/Vol] 159 mg/dL High 70-99 [facility] Comment on above: Performed By: #### L 500.4050, L100.0100, L504.2610 ####[facility] [address] [place], [address] Potassium [Moles/Vol] 4.5 mmol/L Normal 3.3-5.1 [facility] Comment on above: Performed By: #### L 500.4050, L100.0100, L504.2610 ####[facility] [address] [place], [address] Sodium [Moles/Vol] 133 mmol/L Normal 133-145 [facility] Comment on above: Performed By: #### L 500.4050, L100.0100, L504.2610 ####[facility] [address] [place], [address] T PROT 7.0 g/dL Normal 5.9-8.4 [facility] Comment on above: Performed By: #### L 500.4050, L100.0100, L504.2610 ####[facility] [address] [place], [address] Urea nitrogen [Mass/Vol] 63 mg/dL High 4-19 [facility] Comment on above: Performed By: #### L 500.4050, L100.0100, L504.2610 ####[facility] [address] [place], [address] Creatinine [Mass/Vol]Ordered By: Alfreda Hogan on 11-20-2024 Serum creatinine measurement (mass/volume) 5.41 mg/dL High 0.70-1.20 [facility] Creatinine [Mass/Vol]Ordered By: Jeffrey Kuhn on 11-20-2024 Serum creatinine measurement (mass/volume) 5.19 mg/dL High 0.70-1.20 [facility] Emergency Department Summary on 11-20-2024 Emergency Department Summary Normal [facility] Eosinophil percentageOrdered By: Alfreda Hogan on 11-20-2024 Eosinophils/100 WBC (Bld) 1.0 % 0-5 [facility] Eosinophil percentage 1.0 % 0-5 [facility] Eosinophil percentageOrdered By: Jeffrey Kuhn on 11-20-2024 Eosinophils/100 WBC (Bld) 1.2 % 0-5 [facility] Eosinophil percentage 1.2 % 0-5 [facility] Erythrocyte distribution wid th (RBC) [Ratio]Ordered By: Alfreda Hogan on 11-20-2024 Erythrocyte distribution width ratio 17.4 % High 11.6-14.6 [facility] Erythrocyte distribution width standard deviation 57.1 fl High 35.1-43.9 [facility] Erythrocyte distribution wid th (RBC) [Ratio]Ordered By: Jeffrey Kuhn on 11-20-2024 Erythrocyte distribution width ratio 17.3 % High 11.6-14.6 [facility] Erythrocyte distribution width standard deviation 56.8 fl High 35.1-43.9 [facility] Erythrocyte distribution wid th ratioOrdered By: Alfreda Hogan on 11-20-2024 Erythrocyte distribution width (RBC) [Ratio] 17.4 % High 11.6-14.6 [facility] Erythrocyte distribution wid th ratioOrdered By: Jeffrey Kuhn on 11-20-2024 Erythrocyte distribution width (RBC) [Ratio] 17.3 % High 11.6-14.6 [facility] Erythrocyte distribution wid th standard deviationOrdered By: Alfreda Hogan on 11-20-2024 Erythrocyte distribution width (RBC) [Ratio] 57.1 fl High 35.1-43.9 [facility] Erythrocyte distribution wid th standard deviationOrdered By: Jeffrey Kuhn on 11-20-2024 Erythrocyte distribution width (RBC) [Ratio] 56.8 fl High 35.1-43.9 [facility] Estimation of creatinine donavan aranceOrdered By: Alfreda Hogan on 11-20-2024 Estimation of creatinine clearance 15.97 ml/min Low 50-250 [facility] Estimation of creatinine donavan aranceOrdered By: Jeffrey Kuhn on 11-20-2024 Estimation of creatinine clearance 16.79 ml/min Low 50-250 [facility] GFR/1.73 sq M.predicted alivia g non-blacks MDRD (S/P/Bld) [Vol rate/Area]Ordered By: Alfreda Hogan on 11-20-2024 Glomerular filtration rate (GFR) estimation/1.73 sq m using serum, plasma, or whole b 11 Low >60 [facility] GFR/1.73 sq M.predicted alivia g non-blacks MDRD (S/P/Bld) [Vol rate/Area]Ordered By: Jeffrey Kuhn on 11-20-2024 Glomerular filtration rate (GFR) estimation/1.73 sq m using serum, plasma, or whole b 11 Low >60 [facility] Glomerular filtration rate ( GFR) estimation/1.73 sq m using serum, plasma, or whole bOrdered By: Alfreda Hogan on 11-20-2024 GFR/1.73 sq M.predicted among non-blacks MDRD (S/P/Bld) [Vol rate/Area] 11 mL/min/{1.73_m2} Low >60 [facility] Glomerular filtration rate ( GFR) estimation/1.73 sq m using serum, plasma, or whole bOrdered By: Jeffrey Kuhn on 11-20-2024 GFR/1.73 sq M.predicted among non-blacks MDRD (S/P/Bld) [Vol rate/Area] 11 mL/min/{1.73_m2} Low >60 [facility] Glucose [Mass/Vol]Ordered By : Alfreda Hogan on 11-20-2024 Serum glucose measurement (mass/volume) 74 mg/dL 70-99 [facility] Glucose [Mass/Vol]Ordered By : Jeffrey Kunh on 11-20-2024 Serum glucose measurement (mass/volume) 159 mg/dL High 70-99 [facility] Hematocrit Auto (Bld) [Volum e fraction]Ordered By: Alfreda Hogan on 11-20-2024 Hematocrit (Bld) [Volume fraction] 37.5 % Low 40-54 [facility] Automated blood hematocrit (percentage) 37.5 % Low 40-54 [facility] Hematocrit Auto (Bld) [Volum e fraction]Ordered By: Jeffrey Kuhn on 11-20-2024 Hematocrit (Bld) [Volume fraction] 37.0 % Low 40-54 [facility] Automated blood hematocrit (percentage) 37.0 % Low 40-54 [facility] Hemoglobin measurementOrdere d By: Alfreda Hogan on 11-20-2024 Hemoglobin (Bld) [Mass/Vol] 11.4 g/dL Low 13.0-16.5 [facility] Hemoglobin measurement 11.4 g/dL Low 13.0-16.5 [facility] Hemoglobin measurementOrdere d By: Jeffrey Kuhn on 11-20-2024 Hemoglobin (Bld) [Mass/Vol] 11.4 g/dL Low 13.0-16.5 [facility] Hemoglobin measurement 11.4 g/dL Low 13.0-16.5 [facility] Immature granulocytes/100 WB C Auto (Bld)Ordered By: Alfreda Hogan on 11-20-2024 Immature granulocytes/100 WBC (Bld) 0.500 % 0.0-0.9 [facility] Automated immature granulocyte percentage 0.500 % 0.0-0.9 [facility] Immature granulocytes/100 WB C Auto (Bld)Ordered By: Jeffrey Kuhn on 11-20-2024 Immature granulocytes/100 WBC (Bld) 0.400 % 0.0-0.9 [facility] Automated immature granulocyte percentage 0.400 % 0.0-0.9 [facility] LDHon 11-20-2024 LDH 327 U/L High 87-241 [facility] Comment on above: Order Comment: 1 Performed By: #### L 500.4050, L100.0100, L504.2610 ####[facility] [id number] [place], [address] Lactate dehydrogenase (LDH) measurementOrdered By: Jeffrey Kuhn on 11-20-2024 Lactate dehydrogenase (LDH) measurement 327 U/L High 87-241 [facility] Lymphocytes Auto (Unsp spec) [#/Vol]Ordered By: Alfreda Hogan on 11-20-2024 Absolute lymphocyte count 0.83 X10^3/uL 0.83-4.51 [facility] Lymphocytes Auto (Unsp spec) [#/Vol]Ordered By: Jeffrey Kuhn on 11-20-2024 Absolute lymphocyte count 0.73 X10^3/uL Low 0.83-4.51 [facility] Lymphocytes/100 WBC Auto (Un sp spec)Ordered By: Alfreda Hogan on 11-20-2024 Automated lymphocyte count as percentage of total leukocytes 8.3 % Low 19-41 [facility] Lymphocytes/100 WBC Auto (Un sp spec)Ordered By: Jeffrey Kuhn on 11-20-2024 Automated lymphocyte count as percentage of total leukocytes 8.8 % Low 19-41 [facility] MCV (RBC) [Entitic vol]Order ed By: Alfreda Hogan on 11-20-2024 MCV (mean corpuscular volume) determination 90.8 fL 80-94 [facility] MCV (RBC) [Entitic vol]Order ed By: Jeffrey Kuhn on 11-20-2024 MCV (mean corpuscular volume) determination 90.7 fL 80-94 [facility] MCV (mean corpuscular volume ) determinationOrdered By: Alfreda Hogan on 11-20-2024 MCV (RBC) [Entitic vol] 90.8 fL 80-94 [facility] MCV (mean corpuscular volume ) determinationOrdered By: Jeffrey Kuhn on 11-20-2024 MCV (RBC) [Entitic vol] 90.7 fL 80-94 [facility] Magnetic resonance imaging r eportOrdered By: Fred Foley on 11-20-2024 Study report [facility] Study report [facility] Mean corpuscular hemoglobin (MCH) determinationOrdered By: Alfreda Hogan on 11-20-2024 MCH (RBC) [Entitic mass] 27.6 pg 27.0-32.0 [facility] Mean corpuscular hemoglobin (MCH) determination 27.6 pg 27.0-32.0 [facility] Mean corpuscular hemoglobin (MCH) determinationOrdered By: Jeffrey Kuhn on 11-20-2024 MCH (RBC) [Entitic mass] 27.9 pg 27.0-32.0 [facility] Mean corpuscular hemoglobin (MCH) determination 27.9 pg 27.0-32.0 [facility] Mean corpuscular hemoglobin concentration (MCHC) determinationOrdered By: Alfreda Hogan on 11-20-2024 Mean corpuscular hemoglobin concentration (MCHC) determination 30.4 g/dL Low 32-36 [facility] Mean corpuscular hemoglobin concentration (MCHC) determinationOrdered By: Jeffrey Kuhn on 11-20-2024 Mean corpuscular hemoglobin concentration (MCHC) determination 30.8 g/dL [facility]-36 [facility] Mean platelet volume determi nationOrdered By: Alfreda Hogan on 11-20-2024 Mean platelet volume determination 9.3 fl 6.2-12.0 [facility] Mean platelet volume determi nationOrdered By: Jeffrey Kuhn on 11-20-2024 Mean platelet volume determination 9.4 fl 6.2-12.0 [facility] Monocyte percentageOrdered B y: Alfreda Hogan on 11-20-2024 Monocytes/100 WBC (Bld) 9.5 % 0-10 [facility] Monocyte percentage 9.5 % 0-10 [facility] Monocyte percentageOrdered B y: Jeffrey Kuhn on 11-20-2024 Monocytes/100 WBC (Bld) 9.1 % 0-10 [facility] Monocyte percentage 9.1 % 0-10 [facility] Neutrophil percentageOrdered By: Alfreda Hogan on 11-20-2024 Neutrophils/100 WBC (Bld) 79.8 % High 47-70 [facility] Neutrophil percentage 79.8 % High 47-70 [facility] Neutrophil percentageOrdered By: Jeffrey Kuhn on 11-20-2024 Neutrophils/100 WBC (Bld) 79.8 % High 47-70 [facility] Neutrophil percentage 79.8 % High 47-70 [facility] No Panel InformationOrdered By: Jeffrey Kuhn on 11-20-2024 37 U/L <38 [facility] Nucleated red blood cell per centageOrdered By: Alfreda Hogan on 11-20-2024 Nucleated red blood cell percentage 0 % 0-5 [facility] Nucleated red blood cell per centageOrdered By: Jeffrey Kuhn on 11-20-2024 Nucleated red blood cell percentage 0 % 0-5 [facility] Oncology Visit Reporton 10-25 Oncology Visit Report Normal [facility] Platelet countOrdered By: Jacqueline Hogan on 11-20-2024 Platelets (Bld) [#/Vol] 334 10*3/uL 150-450 [facility] Platelet count 334 K/mm3 150-450 [facility] Platelet countOrdered By: Shelby Kuhn on 11-20-2024 Platelets (Bld) [#/Vol] 305 10*3/uL 150-450 [facility] Platelet count 305 K/mm3 150-450 [facility] Potassium (Unsp spec) [Mass/ Vol]Ordered By: Alfreda Hogan on 11-20-2024 Potassium measurement (mass/volume) 4.8 mmol/L 3.3-5.1 [facility] Potassium (Unsp spec) [Mass/ Vol]Ordered By: Jeffrey Kuhn on 11-20-2024 Potassium measurement (mass/volume) 4.5 mmol/L 3.3-5.1 [facility] Potassium measurement (mass/ volume)Ordered By: Alfreda Hogan on 11-20-2024 Potassium (Unsp spec) [Mass/Vol] 4.8 mmol/L 3.3-5.1 [facility] Potassium measurement (mass/ volume)Ordered By: Jeffrey Kuhn on 11-20-2024 Potassium (Unsp spec) [Mass/Vol] 4.5 mmol/L 3.3-5.1 [facility] RBC Auto (Bld) [#/Vol]Ordere d By: Alfreda Hogan on 11-20-2024 RBC (Bld) [#/Vol] 4.13 10*6/uL Low 4.6-6.2 [facility] Automated blood erythrocyte count 4.13 M/mm3 Low 4.6-6.2 [facility] RBC Auto (Bld) [#/Vol]Ordere d By: Jeffrey Kuhn on 11-20-2024 RBC (Bld) [#/Vol] 4.08 10*6/uL Low 4.6-6.2 [facility] Automated blood erythrocyte count 4.08 M/mm3 Low 4.6-6.2 [facility] Serum creatinine measurement (mass/volume)Ordered By: Alfreda Hogan on 11-20-2024 Creatinine [Mass/Vol] 5.41 mg/dL High 0.70-1.20 [facility] Serum creatinine measurement (mass/volume)Ordered By: Jeffrey Kuhn on 11-20-2024 Creatinine [Mass/Vol] 5.19 mg/dL High 0.70-1.20 [facility] Serum globulin measurementOr dered By: Jeffrey Kuhn on 11-20-2024 Globulin (S) [Mass/Vol] 4.0 g/dL 2.2-4.2 [facility] Serum globulin measurement 4.0 g/dL 2.2-4.2 [facility] Serum glucose measurement (m ass/volume)Ordered By: Alfreda Hogan on 11-20-2024 Glucose [Mass/Vol] 74 mg/dL 70-99 [facility] Serum glucose measurement (m ass/volume)Ordered By: Jeffrey Kuhn on 11-20-2024 Glucose [Mass/Vol] 159 mg/dL High 70-99 [facility] Serum or plasma alanine magana otransferase (ALT) measurementOrdered By: Jeffrey Kuhn on 11-20-2024 ALT [Catalytic activity/Vol] 15 U/L <47 [facility] Serum or plasma albumin joshua urement (mass/volume)Ordered By: Jeffrey Kuhn on 11-20-2024 Albumin [Mass/Vol] 3.0 g/dL Low 3.4-4.8 [facility] Serum or plasma albumin/glob ulin mass ratioOrdered By: Jeffrey Kuhn on 11-20-2024 Albumin/Globulin [Mass ratio] 0.8 {ratio} Low 0.9-2.4 [facility] Serum or plasma alkaline denise sphatase measurementOrdered By: Jeffrey Kuhn on 11-20-2024 ALP [Catalytic activity/Vol] 83 U/L 40-129 [facility] Serum or plasma calcium joshua urement (mass/volume)Ordered By: Alfreda Hogan on 11-20-2024 Calcium [Mass/Vol] 9.6 mg/dL 7.6-11.0 [facility] Serum or plasma calcium joshua urement (mass/volume)Ordered By: Jeffrey Kuhn on 11-20-2024 Calcium [Mass/Vol] 9.6 mg/dL 7.6-11.0 [facility] Serum or plasma urea nitroge n measurement (mass/volume)Ordered By: Alfreda Hogan on 11-20-2024 Urea nitrogen [Mass/Vol] 67 mg/dL High 11-11 [facility] Serum or plasma urea nitroge n measurement (mass/volume)Ordered By: Jeffrey Kuhn on 11-20-2024 Urea nitrogen [Mass/Vol] 63 mg/dL High [facility] Sodium levelOrdered By: Sylvester Hogan on 11-20-2024 Sodium [Moles/Vol] 135 mmol/L 133-145 [facility] Sodium level 135 mmol/L 133-145 [facility] Sodium levelOrdered By: Dariusz Kuhn on 11-20-2024 Sodium [Moles/Vol] 133 mmol/L 133-145 [facility] Sodium level 133 mmol/L 133-145 [facility] Spine Cervical W/WO Contrast on 11-20-2024 Spine Cervical W/WO Contrast Normal [facility] Spine Thoracic W/WO Contrast on 11-20-2024 Spine Thoracic W/WO Contrast Normal [facility] Total proteinOrdered By: Raheem Kuhn on 11-20-2024 Protein [Mass/Vol] 7.0 g/dL 5.9-8.4 [facility] Total protein 7.0 g/dL 5.9-8.4 [facility] Urea nitrogen [Mass/Vol]Orde red By: Alfreda Hogan on 11-20-2024 Serum or plasma urea nitrogen measurement (mass/volume) 67 mg/dL High 11-11 [facility] Urea nitrogen [Mass/Vol]Orde red By: Jeffrey Kuhn on 11-20-2024 Serum or plasma urea nitrogen measurement (mass/volume) 63 mg/dL High 11-11 [facility] White blood cell (WBC) count Ordered By: Alfreda Hogan on 11-20-2024 WBC (Bld) [#/Vol] 10.0 10*3/uL 4.4-11.0 [facility] White blood cell (WBC) count 10.0 K/mm3 4.4-11.0 [facility] White blood cell (WBC) count Ordered By: Jeffrey Kuhn on 11-20-2024 WBC (Bld) [#/Vol] 8.3 10*3/uL 4.4-11.0 [facility] White blood cell (WBC) count 8.3 K/mm3 4.4-11.0 [facility] Bone Scan Whole Bodyon 11-14 Bone Scan Whole Body Normal [facility] 12 Lead EKGon 11-09-2024 12 Lead EKG Normal [facility] 12 Lead EKG Normal [facility] ALP [Catalytic activity/Vol] Ordered By: Ana Flores on 11-09-2024 Serum or plasma alkaline phosphatase measurement 81 U/L 40-129 [facility] ALT [Catalytic activity/Vol] Ordered By: Ana Flores on 11-09-2024 Serum or plasma alanine aminotransferase (ALT) measurement 13 U/L <47 [facility] Absolute lymphocyte countOrd ered By: Tayo Cannon on 11-09-2024 Lymphocytes Auto (Unsp spec) [#/Vol] 0.76 10*3/uL Low 0.83-4.51 [facility] Absolute lymphocyte countOrd ered By: Ana Flores on 11-09-2024 Lymphocytes Auto (Unsp spec) [#/Vol] 1.15 10*3/uL 0.83-4.51 [facility] Absolute neutrophil countOrd ered By: Tayo Cannon on 11-09-2024 Neutrophils (Bld) [#/Vol] 4.8 10*3/uL 2.0-7.7 [facility] Absolute neutrophil count 4.8 X10^3/uL 2.0-7.7 [facility] Absolute neutrophil countOrd ered By: Ana Flores on 11-09-2024 Neutrophils (Bld) [#/Vol] 5.7 10*3/uL 2.0-7.7 [facility] Absolute neutrophil count 5.7 X10^3/uL 2.0-7.7 [facility] Albumin [Mass/Vol]Ordered By : Ana Flores on 11-09-2024 Serum or plasma albumin measurement (mass/volume) 3.1 g/dL Low 3.4-4.8 [facility] Albumin/Globulin [Mass ratio ]Ordered By: Ana Flores on 11-09-2024 Serum or plasma albumin/globulin mass ratio 0.9 RATIO 0.9-2.4 [facility] Anion gap [Moles/Vol]Ordered By: Tayo Cannon on 11-09-2024 Anion gap in Serum or Plasma 16 High -15 [facility] Anion gap [Moles/Vol]Ordered By: Ana Flores on 11-09-2024 Anion gap in Serum or Plasma 14 - [facility] Anion gap in Serum or Plasma Ordered By: Tayo Cannon on 11-09-2024 Anion gap [Moles/Vol] 16 mmol/L High - [facility] Anion gap in Serum or Plasma Ordered By: Ana Flores on 11-09-2024 Anion gap [Moles/Vol] 14 mmol/L -15 [facility] Automated lymphocyte count a s percentage of total leukocytesOrdered By: Tayo Cannon on 11-09-2024 Lymphocytes/100 WBC Auto (Unsp spec) 11.9 % Low [facility] Automated lymphocyte count a s percentage of total leukocytesOrdered By: Ana Flores on 11-09-2024 Lymphocytes/100 WBC Auto (Unsp spec) 14.8 % Low [facility] BUN/creatinine ratioOrdered By: Tayo Cannon on 11-09-2024 Urea nitrogen/Creatinine [Mass ratio] 10.5 mg/mg 05-14 [facility] BUN/creatinine ratio 10.5 RATIO 05-14 [facility] BUN/creatinine ratioOrdered By: Ana Flores on 11-09-2024 Urea nitrogen/Creatinine [Mass ratio] 10.6 mg/mg 05-14 [facility] BUN/creatinine ratio 10.6 RATIO 05-14 [facility] Basic Metabolic Profile (BMP )on 11-09-2024 BUN/CRE 10.5 RATIO Normal 05-14 [facility] Comment on above: Performed By: #### L 100.0100, L501.4021, L500.2500 ####[facility] [address] [place], [address] Calcium [Mass/Vol] 9.0 mg/dL Normal 7.6-11.0 [facility] Comment on above: Performed By: #### L 100.0100, L501.4021, L500.2500 ####[facility] [address] [place], [address] Chloride [Moles/Vol] 93 mmol/L Low 98-108 [facility] Comment on above: Performed By: #### L 100.0100, L501.4021, L500.2500 ####[facility] [address] [place], [address] CO2 [Moles/Vol] 21.7 mmol/L Normal 21.0-32.0 [facility] Comment on above: Performed By: #### L 100.0100, L501.4021, L500.2500 ####[facility] [address] [place], [address] Creatinine [Mass/Vol] 3.29 mg/dL High 0.70-1.20 [facility] Comment on above: Performed By: #### L 100.0100, L501.4021, L500.2500 ####[facility] [address] [place], [address] ECRCL 26.49 ml/min Low 50-250 [facility] Comment on above: Performed By: #### L 100.0100, L501.4021, L500.2500 ####[facility] [address] [place], [address] GAP 16 High 5-15 [facility] Comment on above: Performed By: #### L 100.0100, L501.4021, L500.2500 ####[facility] [address] [place], [address] GFR/1.73 sq M.predicted among non-blacks MDRD (S/P/Bld) [Vol rate/Area] 20 mL/min/{1.73_m2} Low >60 [facility] Comment on above: Result Comment: mL/m in/1.73m2 CKD-EPI Creatinine Equation (2020) Performed By: #### L 100.0100, L501.4021, L500.2500 ####[facility] [address] [place], [address] Glucose [Mass/Vol] 125 mg/dL High 70-99 [facility] Comment on above: Performed By: #### L 100.0100, L501.4021, L500.2500 ####[facility] [address] [place], [address] Potassium [Moles/Vol] 5.0 mmol/L Normal 3.3-5.1 [facility] Comment on above: Result Comment: Hemo lysis present, Results??could be affected.?? Performed By: #### L 100.0100, L501.4021, L500.2500 ####[facility] [address] [place], [address] Sodium [Moles/Vol] 131 mmol/L Low 133-145 [facility] Comment on above: Performed By: #### L 100.0100, L501.4021, L500.2500 ####[facility] [address] [place], [address] Urea nitrogen [Mass/Vol] 34 mg/dL High 4-19 [facility] Comment on above: Performed By: #### L 100.0100, L501.4021, L500.2500 ####[facility] [address] [place], [address] Basophil percentageOrdered B y: Tayo Cannon on 11-09-2024 Basophils/100 WBC (Bld) 0.9 % 0-1 [facility] Basophil percentage 0.9 % 0-1 [facility] Basophil percentageOrdered B y: Ana Flores on 11-09-2024 Basophils/100 WBC (Bld) 0.9 % 0-1 [facility] Basophil percentage 0.9 % 0-1 [facility] Bilirubin Test strip Ql (U)O rdered By: Tayo Cannon on 11-09-2024 Bilirubin Ql (U) Negative Negative [facility] Bilirubin, totalOrdered By: Ana Flores on 11-09-2024 Bilirubin [Mass/Vol] 0.64 mg/dL 0.00-1.30 [facility] Bilirubin, total 0.64 mg/dL 0.00-1.30 [facility] CBC W/Diff, Automatedon 10-24 PLT EST ADEQUATE Normal ADEQ [facility] Comment on above: Performed By: #### L 100.0100, L501.4021, L500.2500 ####[facility] [address] [place], [address] Absolute Lymph 1.15 X10 3/uL Normal 0.83-4.51 [facility] Comment on above: Performed By: #### L 100.0100 ####[facility] [address] [place], [address] Absolute Neut 5.7 X10 3/uL Normal 2.0-7.7 [facility] Comment on above: Performed By: #### L 100.0100 ####[facility] [address] [place], [address] Basophils/100 WBC (Bld) 0.9 % Normal 0-1 [facility] Comment on above: Performed By: #### L 100.0100 ####[facility] [address] [place], [address] Eosinophils/100 WBC (Bld) 1.2 % Normal 0-5 [facility] Comment on above: Performed By: #### L 100.0100 ####[facility] [address] [place], [address] Erythrocyte distribution width (RBC) [Ratio] 16.1 % High 11.6-14.6 [facility] Comment on above: Performed By: #### L 100.0100 ####[facility] [address] [place], [address] Hematocrit (Bld) [Volume fraction] 33.3 % Low 40-54 [facility] Comment on above: Performed By: #### L 100.0100 ####[facility] [address] [place], [address] Hemoglobin (Bld) [Mass/Vol] 10.5 g/dL Low 13.0-16.5 [facility] Comment on above: Performed By: #### L 100.0100 ####[facility] [address] [place], [address] IG% 0.400 Normal 0.0-0.9 [facility] Comment on above: Result Comment: IG% - Immature Granulocytes (promyelocytes, myelocytes andmetamyelocytes) > 1% indicates that a LEFT SHIFT is Present. Performed By: #### L 100.0100 ####[facility] [address] [place], [address] Lymphocytes/100 WBC (Bld) 14.8 % Low 19-41 [facility] Comment on above: Performed By: #### L 100.0100 ####[facility] [address] [place], [address] MCH (RBC) [Entitic mass] 27.9 pg Normal 27.0-32.0 [facility] Comment on above: Performed By: #### L 100.0100 ####[facility] [address] [place], [address] MCHC (RBC) [Mass/Vol] 31.5 g/dL Low 32-36 [facility] Comment on above: Performed By: #### L 100.0100 ####[facility] [address] [place], [address] MCV (RBC) [Entitic vol] 88.6 fL Normal 80-94 [facility] Comment on above: Performed By: #### L 100.0100 ####[facility] [address] [place], [address] Monocytes/100 WBC (Bld) 10.0 % Normal 0-10 [facility] Comment on above: Performed By: #### L 100.0100 ####[facility] [address] [place], [address] Neutrophils/100 WBC (Bld) 72.7 % High 47-70 [facility] Comment on above: Performed By: #### L 100.0100 ####[facility] [address] [place], [address] Nucleated RBC (Bld) [#/Vol] 0 10*3/uL Normal 0-5 [facility] Comment on above: Performed By: #### L 100.0100 ####[facility] [address] [place], [address] Platelet mean volume (Bld) [Entitic vol] 9.8 fL Normal 6.2-12.0 [facility] Comment on above: Performed By: #### L 100.0100 ####[facility] [address] [place], [address] Platelets (Bld) [#/Vol] 230 10*3/uL Normal 150-450 [facility] Comment on above: Performed By: #### L 100.0100 ####[facility] [address] [place], [address] RBC (Bld) [#/Vol] 3.76 10*6/uL Low 4.6-6.2 [facility] Comment on above: Performed By: #### L 100.0100 ####[facility] [address] [place], [address] RDW SD 52.2 fl High 35.1-43.9 [facility] Comment on above: Performed By: #### L 100.0100 ####[facility] [address] [place], [address] WBC (Bld) [#/Vol] 7.8 10*3/uL Normal 4.4-11.0 [facility] Comment on above: Performed By: #### L 100.0100 ####[facility] [address] [place], [address] CTA Chest W/WO Contraston CTA Chest W/WO Contrast Normal [facility] Calcium [Mass/Vol]Ordered By : Tayo Cannon on 11-09-2024 Serum or plasma calcium measurement (mass/volume) 9.0 mg/dL 7.6-11.0 [facility] Calcium [Mass/Vol]Ordered By : Ana Flores on 11-09-2024 Serum or plasma calcium measurement (mass/volume) 8.7 mg/dL 7.6-11.0 [facility] Carbon dioxide, total [Moles /volume] in Central venous bloodOrdered By: Tayo Cannon on 11-09-2024 CO2 [Moles/Vol] 21.7 mmol/L 21.0-32.0 [facility] Carbon dioxide, total [Moles/volume] in Central venous blood 21.7 mmol/L 21.0-32.0 [facility] Carbon dioxide, total [Moles /volume] in Central venous bloodOrdered By: Ana Flores on 11-09-2024 CO2 [Moles/Vol] 24.5 mmol/L 21.0-32.0 [facility] Carbon dioxide, total [Moles/volume] in Central venous blood 24.5 mmol/L 21.0-32.0 [facility] Chloride assayOrdered By: Vane Cannon on 11-09-2024 Chloride [Moles/Vol] 93 mmol/L Low 98-108 [facility] Chloride assay 93 mmol/L Low 98-108 [facility] Chloride assayOrdered By: Chad Flores on 11-09-2024 Chloride [Moles/Vol] 93 mmol/L Low 98-108 [facility] Chloride assay 93 mmol/L Low 98-108 [facility] Clarity (U)Ordered By: Tayo Cannon on 11-09-2024 Urine clarity Clear Clear [facility] Color (U)Ordered By: Tayo hernandez on 11-09-2024 Urine color determination Yellow Yellow [facility] Comprehensive Metabolic Prof ilon 11-09-2024 Albumin [Mass/Vol] 3.1 g/dL Low 3.4-4.8 [facility] Comment on above: Performed By: #### L 300.8000, L500.4050, L501.4021 ####[facility] [address] [place], [address] Albumin/Globulin [Mass ratio] 0.9 {ratio} Normal 0.9-2.4 [facility] Comment on above: Performed By: #### L 300.8000, L500.4050, L501.4021 ####[facility] [address] [place], [address] ALK PHOS 81 U/L Normal 40-129 [facility] Comment on above: Performed By: #### L 300.8000, L500.4050, L501.4021 ####[facility] [address] [place], [address] ALT [Catalytic activity/Vol] 13 U/L Normal <=46 [facility] Comment on above: Performed By: #### L 300.8000, L500.4050, L501.4021 ####[facility] [address] [place], [address] AST [Catalytic activity/Vol] 30 U/L Normal <=37 [facility] Comment on above: Performed By: #### L 300.8000, L500.4050, L501.4021 ####[facility] [address] [place], [address] Bilirubin [Mass/Vol] 0.64 mg/dL Normal 0.00-1.30 [facility] Comment on above: Performed By: #### L 300.8000, L500.4050, L501.4021 ####[facility] [address] [place], [address] BUN/CRE 10.6 RATIO Normal 10-20 [facility] Comment on above: Performed By: #### L 300.8000, L500.4050, L501.4021 ####[facility] [address] [place], [address] Calcium [Mass/Vol] 8.7 mg/dL Normal 7.6-11.0 [facility] Comment on above: Performed By: #### L 300.8000, L500.4050, L501.4021 ####[facility] [address] [place], [address] Chloride [Moles/Vol] 93 mmol/L Low 98-108 [facility] Comment on above: Performed By: #### L 300.8000, L500.4050, L501.4021 ####[facility] [address] [place], [address] CO2 [Moles/Vol] 24.5 mmol/L Normal 21.0-32.0 [facility] Comment on above: Performed By: #### L 300.8000, L500.4050, L501.4021 ####[facility] [address] [place], [address] Creatinine [Mass/Vol] 2.95 mg/dL High 0.70-1.20 [facility] Comment on above: Performed By: #### L 300.8000, L500.4050, L501.4021 ####[facility] [address] [place], [address] ECRCL 29.70 ml/min Low 50-250 [facility] Comment on above: Performed By: #### L 300.8000, L500.4050, L501.4021 ####[facility] [address] [place], [address] GAP 14 Normal 5-15 [facility] Comment on above: Performed By: #### L 300.8000, L500.4050, L501.4021 ####[facility] [address] [place], [address] GFR/1.73 sq M.predicted among non-blacks MDRD (S/P/Bld) [Vol rate/Area] 22 mL/min/{1.73_m2} Low >60 [facility] Comment on above: Result Comment: mL/m in/1.73m2 CKD-EPI Creatinine Equation (2020) Performed By: #### L 300.8000, L500.4050, L501.4021 ####[facility] [address] [place], [address] Globulin (S) [Mass/Vol] 3.5 g/dL Normal 2.2-4.2 [facility] Comment on above: Performed By: #### L 300.8000, L500.4050, L501.4021 ####[facility] [address] [place], [address] Glucose [Mass/Vol] 125 mg/dL High 70-99 [facility] Comment on above: Performed By: #### L 300.8000, L500.4050, L501.4021 ####[facility] [address] [place], [address] Potassium [Moles/Vol] 4.5 mmol/L Normal 3.3-5.1 [facility] Comment on above: Performed By: #### L 300.8000, L500.4050, L501.4021 ####[facility] [address] [place], [address] Sodium [Moles/Vol] 131 mmol/L Low 133-145 [facility] Comment on above: Performed By: #### L 300.8000, L500.4050, L501.4021 ####[facility] [address] [place], [address] T PROT 6.6 g/dL Normal 5.9-8.4 [facility] Comment on above: Performed By: #### L 300.8000, L500.4050, L501.4021 ####[facility] [address] [place], [address] Urea nitrogen [Mass/Vol] 31 mg/dL High 4-19 [facility] Comment on above: Performed By: #### L 300.8000, L500.4050, L501.4021 ####[facility] [address] [place], [address] Creatinine [Mass/Vol]Ordered By: Tayo Cannon on 11-09-2024 Serum creatinine measurement (mass/volume) 3.29 mg/dL High 0.70-1.20 [facility] Creatinine [Mass/Vol]Ordered By: Ana Flores on 11-09-2024 Serum creatinine measurement (mass/volume) 2.95 mg/dL High 0.70-1.20 [facility] D-Dimer Quantitative (DVT/PE )on 11-09-2024 D-DIMER QUANT 2.26 FEU/ug/m Invalid Interpretation Code 0.27-0.49 [facility] Comment on above: Result Comment: D-Di ranjith ELEVATED (>0.49): Additional studies and clinicalassessments are indicated to conclude diagnosis of:Deep Vein Thrombosis (DVT) or Pulmonary Embolism (PE)CRITICAL VALUE CALLED TO [place] [address] [facility] Darvin Randall.RESULTS READ BACK BY SAME. Performed By: #### L 300.8000, L500.4050, L501.4021 ####[facility] [address] [place], [address] D-dimer measurement for deep venous thrombosisOrdered By: Ana Flores on 11-09-2024 D-Dimer Quantitative (PE/DVT) 2.26 FEU/ug/m High 0.27-0.49 [facility] Comment on above: D-Dimer ELEVATED (>0 .49): Additional studies and clinicalassessments are indicated to conclude diagnosis of:Deep Vein Thrombosis (DVT) or Pulmonary Embolism (PE)CRITICAL VALUE CALLED TO [place] [id number] Darvin Randall.RESULTS READ BACK BY SAME. D-dimer measurement for deep venous thrombosis 2.26 FEU/ug/m High 0.27-0.49 [facility] Emergency Department Summary on 11-09-2024 Emergency Department Summary Normal [facility] Emergency Department Summary Normal [facility] Eosinophil percentageOrdered By: Tayo Cannon on 11-09-2024 Eosinophils/100 WBC (Bld) 1.3 % 0-5 [facility] Eosinophil percentage 1.3 % 0-5 [facility] Eosinophil percentageOrdered By: Ana Flores on 11-09-2024 Eosinophils/100 WBC (Bld) 1.2 % 0-5 [facility] Eosinophil percentage 1.2 % 0-5 [facility] Epithelial cells.squamous LM Ql (Urine sed)Ordered By: Tayo Cannon on 11-09-2024 Epithelial cells.squamous LM.HPF (Urine sed) [#/Area] 0 /[HPF] 0-5 [facility] Erythrocyte distribution wid th (RBC) [Ratio]Ordered By: Tayo Cannon on 11-09-2024 Erythrocyte distribution width ratio 16.1 % High 11.6-14.6 [facility] Erythrocyte distribution width (RBC) [Entitic vol] 52.4 fL High 35.1-43.9 [facility] Erythrocyte distribution width standard deviation 52.4 fl High 35.1-43.9 [facility] Erythrocyte distribution wid th (RBC) [Ratio]Ordered By: Ana Flores on 11-09-2024 Erythrocyte distribution width ratio 16.1 % High 11.6-14.6 [facility] Erythrocyte distribution width (RBC) [Entitic vol] 52.2 fL High 35.1-43.9 [facility] Erythrocyte distribution width standard deviation 52.2 fl High 35.1-43.9 [facility] Erythrocyte distribution wid th ratioOrdered By: Tayo Cannon on 11-09-2024 Erythrocyte distribution width (RBC) [Ratio] 16.1 % High 11.6-14.6 [facility] Erythrocyte distribution wid th ratioOrdered By: Ana Flores on 11-09-2024 Erythrocyte distribution width (RBC) [Ratio] 16.1 % High 11.6-14.6 [facility] Erythrocyte distribution wid th standard deviationOrdered By: Tayo Cannon on 11-09-2024 Erythrocyte distribution width (RBC) [Ratio] 52.4 fl High 35.1-43.9 [facility] Erythrocyte distribution wid th standard deviationOrdered By: Ana Flores on 11-09-2024 Erythrocyte distribution width (RBC) [Ratio] 52.2 fl High 35.1-43.9 [facility] Estimation of creatinine donavan aranceOrdered By: Tayo Cannon on 11-09-2024 Estimated Creatinine Clearance Calc 26.49 ml/min Low 50-250 [facility] Estimation of creatinine clearance 26.49 ml/min Low 50-250 [facility] Estimation of creatinine donavan aranceOrdered By: Ana Flores on 11-09-2024 Estimated Creatinine Clearance Calc 29.70 ml/min Low 50-250 [facility] Estimation of creatinine clearance 29.70 ml/min Low 50-250 [facility] GFR/1.73 sq M.predicted alivia g non-blacks MDRD (S/P/Bld) [Vol rate/Area]Ordered By: Tayo Cannon on 11-09-2024 Estimated GFR (MDRD) Non-Af Amer 20 Low >60 [facility] Comment on above: mL/min/1.73m2 CKD-EP I Creatinine Equation (2020) Glomerular filtration rate (GFR) estimation/1.73 sq m using serum, plasma, or whole b 20 Low >60 [facility] GFR/1.73 sq M.predicted alivia g non-blacks MDRD (S/P/Bld) [Vol rate/Area]Ordered By: Ana Flores on 11-09-2024 Estimated GFR (MDRD) Non-Af Amer 22 Low >60 [facility] Comment on above: mL/min/1.73m2 CKD-EP I Creatinine Equation (2020) Glomerular filtration rate (GFR) estimation/1.73 sq m using serum, plasma, or whole b 22 Low >60 [facility] Glomerular filtration rate ( GFR) estimation/1.73 sq m using serum, plasma, or whole bOrdered By: Tayo Cannon on 11-09-2024 GFR/1.73 sq M.predicted among non-blacks MDRD (S/P/Bld) [Vol rate/Area] 20 mL/min/{1.73_m2} Low >60 [facility] Glomerular filtration rate ( GFR) estimation/1.73 sq m using serum, plasma, or whole bOrdered By: Ana Flores on 11-09-2024 GFR/1.73 sq M.predicted among non-blacks MDRD (S/P/Bld) [Vol rate/Area] 22 mL/min/{1.73_m2} Low >60 [facility] Glucose Ql (U)Ordered By: Vane Cannon on 11-09-2024 Glucose (U) [Mass/Vol] 50 mg/dL High Normal Wo [facility] Urine glucose detection 50 mg/dl High Normal [facility] Glucose [Mass/Vol]Ordered By : Tayo Cannon on 11-09-2024 Serum glucose measurement (mass/volume) 125 mg/dL High 70-99 [facility] Glucose [Mass/Vol]Ordered By : Ana Flores on 11-09-2024 Serum glucose measurement (mass/volume) 125 mg/dL High 70-99 [facility] Hematocrit Auto (Bld) [Volum e fraction]Ordered By: Tayo Cannon on 11-09-2024 Hematocrit (Bld) [Volume fraction] 35.0 % Low 40-54 [facility] Automated blood hematocrit (percentage) 35.0 % Low 40-54 [facility] Hematocrit Auto (Bld) [Volum e fraction]Ordered By: Ana Flores on 11-09-2024 Hematocrit (Bld) [Volume fraction] 33.3 % Low 40-54 [facility] Automated blood hematocrit (percentage) 33.3 % Low 40-54 [facility] Hemoglobin measurementOrdere d By: Tayo Cannon on 11-09-2024 Hemoglobin (Bld) [Mass/Vol] 11.0 g/dL Low 13.0-16.5 [facility] Hemoglobin measurement 11.0 g/dL Low 13.0-16.5 [facility] Hemoglobin measurementOrdere d By: Ana Flores on 11-09-2024 Hemoglobin (Bld) [Mass/Vol] 10.5 g/dL Low 13.0-16.5 [facility] Hemoglobin measurement 10.5 g/dL Low 13.0-16.5 [facility] Immature granulocytes/100 WB C Auto (Bld)Ordered By: Tayo Cannon on 11-09-2024 Immature granulocytes/100 WBC (Bld) 0.500 % 0.0-0.9 [facility] Comment on above: IG% - Immature Granu locytes (promyelocytes, myelocytes and metamyelocytes) > 1% indicates that a LEFT SHIFT is Present. Automated immature granulocyte percentage 0.500 % 0.0-0.9 [facility] Immature granulocytes/100 WB C Auto (Bld)Ordered By: Ana Flores on 11-09-2024 Immature granulocytes/100 WBC (Bld) 0.400 % 0.0-0.9 [facility] Comment on above: IG% - Immature Granu locytes (promyelocytes, myelocytes and metamyelocytes) > 1% indicates that a LEFT SHIFT is Present. Automated immature granulocyte percentage 0.400 % 0.0-0.9 [facility] Ketones Test strip Ql (U)Ord ered By: Tayo Cannon on 11-09-2024 Ketones Ql (U) Negative Negative [facility] L499.0042on 11-09-2024 Trop T High Sen 47 ng/L High <=22 [facility] Comment on above: Performed By: #### L 499.0042 ####[facility] [address] [place], [address] L499.0043on 11-09-2024 Trop T High Sen Normal <=22 [facility] Comment on above: Result Comment: Canc elled via OM: Order cancelled - Patient discharged Performed By: #### L 499.0043 ####[facility] [address] [place], [address] L501.4021on 11-09-2024 Trop T High Sen 47 ng/L High <=22 [facility] Comment on above: Result Comment: Hemo lysis present, Results??could be affected.?? Performed By: #### L 100.0100, L501.4021, L500.2500 ####[facility] [address] [place], [address] Trop T High Sen 51 ng/L High <=22 [facility] Comment on above: Performed By: #### L 300.8000, L500.4050, L501.4021 ####[facility] [address] [place], [address] Laboratory - Chemistry and C hemistry - challengeOrdered By: Ana Flores on 11-09-2024 AST [Catalytic activity/Vol] 30 U/L <38 [facility] Lymphocytes Auto (Unsp spec) [#/Vol]Ordered By: Tayo Cannon on 11-09-2024 Lymphocytes (Bld) [#/Vol] 0.76 10*3/uL Low 0.83-4.51 [facility] Absolute lymphocyte count 0.76 X10^3/uL Low 0.83-4.51 [facility] Lymphocytes Auto (Unsp spec) [#/Vol]Ordered By: Ana Flores on 11-09-2024 Lymphocytes (Bld) [#/Vol] 1.15 10*3/uL 0.83-4.51 [facility] Absolute lymphocyte count 1.15 X10^3/uL 0.83-4.51 [facility] Lymphocytes/100 WBC Auto (Un sp spec)Ordered By: Tayo Cannon on 11-09-2024 Lymphocytes/100 WBC (Bld) 11.9 % Low - [facility] Automated lymphocyte count as percentage of total leukocytes 11.9 % Low - [facility] Lymphocytes/100 WBC Auto (Un sp spec)Ordered By: Ana Flores on 11-09-2024 Lymphocytes/100 WBC (Bld) 14.8 % Low - [facility] Automated lymphocyte count as percentage of total leukocytes 14.8 % [facility] - [facility] MCV (RBC) [Entitic vol]Order ed By: Tayo Cannon on 11-09-2024 MCV (mean corpuscular volume) determination 89.1 fL 80-94 [facility] MCV (RBC) [Entitic vol]Order ed By: Ana Flores on 11-09-2024 MCV (mean corpuscular volume) determination 88.6 fL 80-94 [facility] MCV (mean corpuscular volume ) determinationOrdered By: Tayo Cannon on 11-09-2024 MCV (RBC) [Entitic vol] 89.1 fL 80-94 [facility] MCV (mean corpuscular volume ) determinationOrdered By: Ana Flores on 11-09-2024 MCV (RBC) [Entitic vol] 88.6 fL 80-94 [facility] Mean corpuscular hemoglobin (MCH) determinationOrdered By: Tayo Cannon on 11-09-2024 MCH (RBC) [Entitic mass] 28.0 pg 27.0-32.0 [facility] Mean corpuscular hemoglobin (MCH) determination 28.0 pg 27.0-32.0 [facility] Mean corpuscular hemoglobin (MCH) determinationOrdered By: Ana Flores on 11-09-2024 MCH (RBC) [Entitic mass] 27.9 pg 27.0-32.0 [facility] Mean corpuscular hemoglobin (MCH) determination 27.9 pg 27.0-32.0 [facility] Mean corpuscular hemoglobin concentration (MCHC) determinationOrdered By: Tayo Cannon on 11-09-2024 MCHC (RBC) [Mass/Vol] 31.4 g/dL Low 32-36 [facility] Mean corpuscular hemoglobin concentration (MCHC) determination 31.4 g/dL Low 32-36 [facility] Mean corpuscular hemoglobin concentration (MCHC) determinationOrdered By: Ana Flores on 11-09-2024 MCHC (RBC) [Mass/Vol] 31.5 g/dL Low 32-36 [facility] Mean corpuscular hemoglobin concentration (MCHC) determination 31.5 g/dL Low 32-36 [facility] Mean platelet volume determi nationOrdered By: Tayo Cannon on 11-09-2024 Platelet mean volume (Bld) [Entitic vol] 10.8 fL 6.2-12.0 [facility] Mean platelet volume determination 10.8 fl 6.2-12.0 [facility] Mean platelet volume determi nationOrdered By: Ana Flores on 11-09-2024 Platelet mean volume (Bld) [Entitic vol] 9.8 fL 6.2-12.0 [facility] Mean platelet volume determination 9.8 fl 6.2-12.0 [facility] Microscopic analysis of urin e for red blood cells (RBC)Ordered By: Tayo Cannon on 11-09-2024 Urine RBC 5-10 SEEN /hpf 0-5 [facility] Microscopic analysis of urine for red blood cells (RBC) 5-10 SEEN /hpf 0-5 [facility] Monocyte percentageOrdered B y: Tayo Cannon on 11-09-2024 Monocytes/100 WBC (Bld) 9.7 % 0-10 [facility] Monocyte percentage 9.7 % 0-10 [facility] Monocyte percentageOrdered B y: Ana Flores on 11-09-2024 Monocytes/100 WBC (Bld) 10.0 % 0-10 [facility] Monocyte percentage 10.0 % 0-10 [facility] Mucus LM Ql (Urine sed)Order ed By: Tayo Cannon on 11-09-2024 Mucus Ql (Urine sed) 0 SEEN /hpf [facility] Neutrophil percentageOrdered By: Tayo Cannon on 11-09-2024 Neutrophils/100 WBC (Bld) 75.7 % High 47-70 [facility] Neutrophil percentage 75.7 % High 47-70 [facility] Neutrophil percentageOrdered By: Ana Flores on 11-09-2024 Neutrophils/100 WBC (Bld) 72.7 % High 47-70 [facility] Neutrophil percentage 72.7 % High 47-70 [facility] Nitrite Test strip Ql (U)Ord ered By: Tayo Cannon on 11-09-2024 Nitrite Ql (U) Negative Negative [facility] No Panel InformationOrdered By: Ana Flores on 11-09-2024 30 U/L <38 [facility] Nucleated red blood cell per centageOrdered By: Tayo Cannon on 11-09-2024 Nucleated RBC/100 WBC (Bld) [Ratio] 0 % 0-5 [facility] Nucleated red blood cell percentage 0 % 0-5 [facility] Nucleated red blood cell per centageOrdered By: Ana Flores on 11-09-2024 Nucleated RBC/100 WBC (Bld) [Ratio] 0 % 0-5 [facility] Nucleated red blood cell percentage 0 % 0-5 [facility] Platelet countOrdered By: Vane Cannon on 11-09-2024 Platelet Count See comment 150-450 [facility] Comment on above: Please note: For thi s sample, a platelet estimate is provided rather than a platelet count due to platelet clumping. Other parameters associated with this sample are not affected by platelet clumping. If a more accurate platelet count is required, a redraw of the patient will be necessary. Platelet count See comment 150-450 [facility] Platelet countOrdered By: Chad Flores on 11-09-2024 Platelets (Bld) [#/Vol] 230 10*3/uL 150-450 [facility] Platelet count 230 K/mm3 150-450 [facility] Platelet estimateOrdered By: Tayo Cannon on 11-09-2024 Platelets LM Ql (Bld) ADEQUATE ADEQ [facility] Platelets LM Ql (Bld)Ordered By: Tayo Cannon on 11-09-2024 Platelet Estimate ADEQUATE ADEQ [facility] Platelet estimate ADEQUATE ADEQ [facility] Potassium (Unsp spec) [Mass/ Vol]Ordered By: Tayo Cannon on 11-09-2024 Potassium [Moles/Vol] 5.0 mmol/L 3.3-5.1 [facility] Comment on above: Hemolysis present, R esults could be affected. Potassium measurement (mass/volume) 5.0 mmol/L 3.3-5.1 [facility] Potassium (Unsp spec) [Mass/ Vol]Ordered By: Ana Flores on 11-09-2024 Potassium [Moles/Vol] 4.5 mmol/L 3.3-5.1 [facility] Potassium measurement (mass/volume) 4.5 mmol/L 3.3-5.1 [facility] Potassium measurement (mass/ volume)Ordered By: Tayo Cannon on 11-09-2024 Potassium (Unsp spec) [Mass/Vol] 5.0 mmol/L 3.3-5.1 [facility] Potassium measurement (mass/ volume)Ordered By: Ana Flores on 11-09-2024 Potassium (Unsp spec) [Mass/Vol] 4.5 mmol/L 3.3-5.1 [facility] Protein (U) [Mass/Vol]Ordere d By: Tayo Cannon on 11-09-2024 Urine protein measurement (mass/volume) 309.0 mg/dL High 0.0-12.0 [facility] Protein Test strip Ql (U)Ord ered By: Tayo Cannon on 11-09-2024 Protein Ql (U) [facility] Comment on above: Test not performedSE E URINE CHEMISTRY PROTIEN ORDER FOR THIS RESULT. Urine protein assay by test strip, semi-quantitative [facility] Protein, Urine (Random)on Protein (U) [Mass/Vol] 309.0 mg/dL High 0.0-12.0 [facility] Comment on above: Performed By: #### L 501.1930 ####[facility] [address] [place], [place], [id number] RBC Auto (Bld) [#/Vol]Ordere d By: Tayo Cannon on 11-09-2024 RBC (Bld) [#/Vol] 3.93 10*6/uL Low 4.6-6.2 [facility] Automated blood erythrocyte count 3.93 M/mm3 Low 4.6-6.2 [facility] RBC Auto (Bld) [#/Vol]Ordere d By: Ana Flores on 11-09-2024 RBC (Bld) [#/Vol] 3.76 10*6/uL Low 4.6-6.2 [facility] Automated blood erythrocyte count 3.76 M/mm3 Low 4.6-6.2 [facility] Serum creatinine measurement (mass/volume)Ordered By: Tayo Cannon on 11-09-2024 Creatinine [Mass/Vol] 3.29 mg/dL High 0.70-1.20 [facility] Serum creatinine measurement (mass/volume)Ordered By: Ana Flores on 11-09-2024 Creatinine [Mass/Vol] 2.95 mg/dL High 0.70-1.20 [facility] Serum globulin measurementOr dered By: Ana Flores on 11-09-2024 Globulin (S) [Mass/Vol] 3.5 g/dL 2.2-4.2 [facility] Serum globulin measurement 3.5 g/dL 2.2-4.2 [facility] Serum glucose measurement (m ass/volume)Ordered By: Tayo Cannon on 11-09-2024 Glucose [Mass/Vol] 125 mg/dL High 70-99 [facility] Serum glucose measurement (m ass/volume)Ordered By: Ana Flores on 11-09-2024 Glucose [Mass/Vol] 125 mg/dL High 70-99 [facility] Serum or plasma alanine magana otransferase (ALT) measurementOrdered By: Ana Flores on 11-09-2024 ALT [Catalytic activity/Vol] 13 U/L <47 [facility] Serum or plasma albumin joshua urement (mass/volume)Ordered By: Ana Flores on 11-09-2024 Albumin [Mass/Vol] 3.1 g/dL Low 3.4-4.8 [facility] Serum or plasma albumin/glob ulin mass ratioOrdered By: Ana Flores on 11-09-2024 Albumin/Globulin [Mass ratio] 0.9 {ratio} 0.9-2.4 [facility] Serum or plasma alkaline denise sphatase measurementOrdered By: Ana Flores on 11-09-2024 ALP [Catalytic activity/Vol] 81 U/L 40-129 [facility] Serum or plasma calcium joshua urement (mass/volume)Ordered By: Tayo Cannon on 11-09-2024 Calcium [Mass/Vol] 9.0 mg/dL 7.6-11.0 [facility] Serum or plasma calcium joshua urement (mass/volume)Ordered By: Ana Flores on 11-09-2024 Calcium [Mass/Vol] 8.7 mg/dL 7.6-11.0 [facility] Serum or plasma urea nitroge n measurement (mass/volume)Ordered By: Tayo Cannon on 11-09-2024 Urea nitrogen [Mass/Vol] 34 mg/dL High 11-11 [facility] Serum or plasma urea nitroge n measurement (mass/volume)Ordered By: Ana Flores on 11-09-2024 Urea nitrogen [Mass/Vol] 31 mg/dL High - [facility] Sodium levelOrdered By: Ana Cannon on 11-09-2024 Sodium [Moles/Vol] 131 mmol/L Low 133-145 [facility] Sodium level 131 mmol/L Low 133-145 [facility] Sodium levelOrdered By: Rea Flores on 11-09-2024 Sodium [Moles/Vol] 131 mmol/L Low 133-145 [facility] Sodium level 131 mmol/L Low 133-145 [facility] Specific gravity (U) [Rel de nsity]Ordered By: Tayo Cannon on 11-09-2024 Urine specific gravity measurement 1.010 1.002-1.030 [facility] Squamous epithelial cells de tection in urine sediment by light microscopyOrdered By: Tayo Cannon on 11-09-2024 Epithelial cells.squamous LM Ql (Urine sed) 0 SEEN /hpf 0-5 [facility] Squamous epithelial cells detection in urine sediment by light microscopy 0 SEEN /hpf [facility] Total proteinOrdered By: Renetta Flores on 11-09-2024 Protein [Mass/Vol] 6.6 g/dL 5.9-8.4 [facility] Total protein 6.6 g/dL 5.9-8.4 [facility] Troponin T.cardiac High sens itivity method [Mass/Vol]Ordered By: Tayo Cannon on 11-09-2024 Troponin T High Sensitivity 47 ng/L High <22 [facility] Comment on above: Delta: 51 on 5-0205Hemolysis present, Results could be affected. Troponin T.cardiac [Mass/volume] in Serum or Plasma by High sensitivity method 47 ng/L High <22 [facility] Troponin T.cardiac High sens itivity method [Mass/Vol]Ordered By: Ana Flores on 11-09-2024 Troponin T High Sensitivity 2 Hour 47 ng/L High <22 [facility] Troponin T.cardiac [Mass/volume] in Serum or Plasma by High sensitivity method 47 ng/L High <22 [facility] Troponin T High Sensitivity 51 ng/L High <22 [facility] Troponin T.cardiac [Mass/volume] in Serum or Plasma by High sensitivity method 51 ng/L High <22 [facility] Troponin T.cardiac [Mass/vol ume] in Serum or Plasma by High sensitivity methodOrdered By: Tayo Cannon on 11-09-2024 Troponin T.cardiac High sensitivity method [Mass/Vol] 47 ng/L High <22 [facility] Troponin T.cardiac [Mass/vol ume] in Serum or Plasma by High sensitivity methodOrdered By: Ana Flores on 11-09-2024 Troponin T.cardiac High sensitivity method [Mass/Vol] 47 ng/L High <22 [facility] Troponin T.cardiac High sensitivity method [Mass/Vol] 51 ng/L High <22 [facility] Urea nitrogen [Mass/Vol]Orde red By: Tayo Cannon on 11-09-2024 Serum or plasma urea nitrogen measurement (mass/volume) 34 mg/dL High 4-19 [facility] Urea nitrogen [Mass/Vol]Orde red By: Ana Flores on 11-09-2024 Serum or plasma urea nitrogen measurement (mass/volume) 31 mg/dL High 4-19 [facility] Urinalysis, Completeon 11-09 YEAST RARE Normal None Seen [facility] Comment on above: Order Comment: ALIE CTOR TO SPECIFY Performed By: #### L 400.0001 ####[facility] [address] [place], [address] RBC 5-10 SEEN Normal 0-5 [facility] Comment on above: Order Comment: ALIE CTOR TO SPECIFY Performed By: #### L 400.0001 ####[facility] [address] [place], [address] WBC 0-5 SEEN Normal 0-5 [facility] Comment on above: Order Comment: ALIE CTOR TO SPECIFY Performed By: #### L 400.0001 ####[facility] [address] [place], [address] BACTERIA 0 SEEN Normal None Seen [facility] Comment on above: Order Comment: ALIE CTOR TO SPECIFY Performed By: #### L 400.0001 ####[facility] [address] [place], [address] EPI,SQUAMOUS 0 SEEN Normal 0-5 [facility] Comment on above: Order Comment: ALIE CTOR TO SPECIFY Performed By: #### L 400.0001 ####[facility] [address] [place], [address] Mucus Ql (Urine sed) 0 SEEN Normal [facility] Comment on above: Order Comment: ALIE CTOR TO SPECIFY Performed By: #### L 400.0001 ####[facility] [address] [place], [address] Urine blood detectionOrdered By: Raquelus Davis on 11-09-2024 Urine Occult Blood 150 /ul High Negative [facility] Urine blood detection 150 /ul High Negative [facility] Urine clarityOrdered By: Raquel us Ungnick on 11-09-2024 Clarity (U) Clear Clear [facility] Urine color determinationOrd ered By: Tayo Cannon on 11-09-2024 Color (U) Yellow Yellow [facility] Urine glucose detectionOrder ed By: Tayo Cannon on 11-09-2024 Glucose Ql (U) 50 mg/dl High Normal [facility] Urine leukocyte esterase det ection by dipstickOrdered By: Tayo Cannon on 11-09-2024 Leukocyte esterase Test strip Ql (U) Negative Negative [facility] Urine pHOrdered By: Tayo Yu gur on 11-09-2024 pH (U) 8.0 [pH] 5.0 - 8.0 [facility] Urine protein measurement (m ass/volume)Ordered By: Tayo Cannon on 11-09-2024 Protein (U) [Mass/Vol] 309.0 mg/dL High 0.0-12.0 [facility] Urine sediment bacteria coun t by microscopy (number/high power field)Ordered By: Tayo Cannon on 11-09-2024 Bacteria LM.HPF (Urine sed) [#/Area] 0 /[HPF] None Seen [facility] Urine sediment yeast count b y microscopy (number/high powered field)Ordered By: Tayo Cannon on 11-09-2024 Yeast LM.HPF (Urine sed) [#/Area] RARE /hpf None Seen [facility] Urine specific gravity measu rementOrdered By: Tayo Cannon on 11-09-2024 Specific gravity (U) [Rel density] 1.010 1.002-1.030 [facility] Urine total bilirubin detect ion by test stripOrdered By: Tayo Cannon on 11-09-2024 Urine total bilirubin detection by test strip Negative Negative [facility] Urine urobilinogen measureme ntOrdered By: Tayo Cannon on 11-09-2024 Urobilinogen Ql (U) Normal mg/dl Normal [facility] Urobilinogen Ql (U)Ordered B y: Tayo Cannon on 11-09-2024 Urine Urobilinogen Normal mg/dl Normal [facility] Urine urobilinogen measurement Normal mg/dl Normal [facility] White blood cell (WBC) count Ordered By: Tayo Cannon on 11-09-2024 WBC (Bld) [#/Vol] 6.4 10*3/uL 4.4-11.0 [facility] White blood cell (WBC) count 6.4 K/mm3 4.4-11.0 [facility] White blood cell (WBC) count Ordered By: Ana Flores on 11-09-2024 WBC (Bld) [#/Vol] 7.8 10*3/uL 4.4-11.0 [facility] White blood cell (WBC) count 7.8 K/mm3 4.4-11.0 [facility] White blood cell countOrdere d By: Tayo Cannon on 11-09-2024 Urine WBC 0-5 SEEN /hpf 0-5 [facility] White blood cell count 0-5 SEEN /hpf 0-5 [facility] White blood cell count 0-5 SEEN /hpf 0-5 [facility] Yeast LM.HPF (Urine sed) [#/ Area]Ordered By: Tayo Cannon on 11-09-2024 Urine Yeast RARE /hpf None Seen [facility] Urine sediment yeast count by microscopy (number/high powered field) RARE /hpf None Seen [facility] pH (U)Ordered By: Tayo velez on 11-09-2024 Urine pH 8.0 5.0 - 8.0 [facility] Oncology Visit Reporton 09-25 Oncology Visit Report Normal [facility] Oncology Visit Reporton 09-23 Oncology Visit Report Normal [facility] Limited echocardiogram repor tOrdered By: Patrice Loja on 10-05-2024 Study report [facility] [address] [place] [address] ONC Echo, Limited Study 10/05/24 1021 MR#: [id number] Acct: [id number] Name: KRISSY WRIGHT Rep #:[id number] : [id number] 68 From: Patrice Patrick Attending Dr: Dr. iMtchel Pereira MD Status: REG [facility] Ordering Dr: Mitchel Pereira MD Date: 10/05/24 Location: [facility] Sex: M C Admitted: Reason For Study Reason For Study: RENAL CANCER Procedure This was a limited 2D transthoracic echocardiogram. Myocardial strain analysis was performed in this exam to aid in the assessment of cardiac function. The study was technically difficult. Exam performed in department. Left Ventricle Normal LV size. Mild concentric left ventricular hypertrophy. Left ventricular systolic function is lower limits of normal. The left ventricular ejection fraction is 55 %. No regional wall motion abnormalities noted. Right Ventricle Normal RV size. Normal systolic function. Atria The left atrium is mildly enlarged. Normal right atrium. Mitral Valve Bileaflet diffuse mitral valve thickening. Tricuspid Valve Normal tricuspid valve. Aortic Valve Trisinus/trileaflet aortic valve. Pulmonic Valve Normal pulmonic valve. Great Vessels Normal aortic root. Pericardium/Pleural No pericardial effusion. MMode/2D Measurements & Calculations LVIDd: 5.9 cm IVSd: 1.3 cm Ao root diam: 3.6 cm LVIDs: 4.4 cm LVPWd: 1.3 cm RVDd: 3.3 cm FS: 25.5 % LAV(MOD-bp): 128.6 ml LVAd ap4: 40.3 cm2 LVAd ap2: 33.2 cm2 LAV(MOD-bp) Indexed: 58.0 ml/m2 LVLd ap4: 9.1 cm LVLd ap2: 9.0 cm LAV(MOD-sp2): 124.1 ml EDV(MOD-sp4): 143.9 ml EDV(MOD-sp2): 102.2 ml LAV(MOD-sp4): 121.6 ml EDV(sp4-el): 151.2 ml EDV(sp2-el): 103.6 ml LVAs ap4: 23.6 cm2 LVAs ap2: 19.3 cm2 LVLs ap4: 7.5 cm LVLs ap2: 7.4 cm ESV(MOD-sp4): 63.4 ml ESV(MOD-sp2): 43.8 ml ESV(sp4-el): 63.5 ml ESV(sp2-el): 42.8 ml EF(MOD-sp4): 56.0 % EF(MOD-sp2): 57.1 % EF(sp4-el): 58.0 % SV(MOD-sp4): 80.5 ml SV(MOD-sp2): 58.4 ml SV(sp4-el): 87.7 ml SI(MOD-sp4): 36.3 ml/m2 SI(MOD-sp2): 26.3 ml/m2 LA dimension(2D): 5.4 cm RA A4 area: 15.0 cm2 ECHO/ONC Echo, Limited Study Interpretation Summary Normal LV size. Left ventricular systolic function is lower limits of normal. The global longitudinal strain = -16.7 Borderlin% (abnormal). The global longitudinal strain = -16.7 Borderlin% (abnormal). Ordering Physician: Mitchel Pereira Referring Physician: Sam Del Toro Performed By: Judie Jacobson RDCS, RVT 10/05/24 1216 Date _ Patrice Loja MD CC: Dr. Mitchel Pereira MD; Dr. Sam Del Toro DO ~ Date Dictated: 10/05/24 1021 Date Transcribed: 10/05/24 1216 Player Piano Technician: Signed [facility] Work Phone: ONC Echo, Limited Studyon ONC Echo, Limited Study Normal [facility] ALP [Catalytic activity/Vol] Ordered By: Moody Rodriguez on 10-04-2024 Serum or plasma alkaline phosphatase measurement 74 U/L 40-129 [facility] ALT [Catalytic activity/Vol] Ordered By: Moody Rodriguez on 10-04-2024 Serum or plasma alanine aminotransferase (ALT) measurement 10 U/L <47 [facility] Abdomen/Pelvis W IV Cont ONL Yon 10-04-2024 Abdomen/Pelvis W IV Cont ONLY Normal [facility] Absolute lymphocyte countOrd ered By: Moody Rodriguez on 10-04-2024 Lymphocytes Auto (Unsp spec) [#/Vol] 0.90 10*3/uL 0.83-4.51 [facility] Absolute neutrophil countOrd ered By: Moody Rodriguez on 10-04-2024 Neutrophils (Bld) [#/Vol] 4.8 10*3/uL 2.0-7.7 [facility] Absolute neutrophil count 4.8 X10^3/uL 2.0-7.7 [facility] Activated partial thrombopla stin time (aPTT) in platelet poor plasma by coagulation aOrdered By: Moody Rodriguez on 10-04-2024 aPTT Coag (PPP) [Time] 36.8 s High 24.1-36.2 [facility] Albumin [Mass/Vol]Ordered By : Moody Rodriguez on 10-04-2024 Serum or plasma albumin measurement (mass/volume) 3.4 g/dL 3.4-4.8 [facility] Anion gap [Moles/Vol]Ordered By: Moody Rodriguez on 10-04-2024 Anion gap in Serum or Plasma 17 High - [facility] Anion gap in Serum or Plasma Ordered By: Moody Rodriguez on 10-04-2024 Anion gap [Moles/Vol] 17 mmol/L High - [facility] Automated lymphocyte count a s percentage of total leukocytesOrdered By: Moody Rodriguez on 10-04-2024 Lymphocytes/100 WBC Auto (Unsp spec) 13.8 % Low 19-41 [facility] BUN/creatinine ratioOrdered By: Moody Rodriguez on 10-04-2024 Urea nitrogen/Creatinine [Mass ratio] 12.9 mg/mg 05-14 [facility] BUN/creatinine ratio 12.9 RATIO 05-14 [facility] Basic Metabolic Profile (BMP )on 10-04-2024 BUN/CRE 12.9 RATIO Normal 05-14 [facility] Comment on above: Performed By: #### L 300.3900, L300.4310, L500.2500, L500.3400, L100.0100 ####[facility] [address] [place], [address] Calcium [Mass/Vol] 9.1 mg/dL Normal 7.6-11.0 [facility] Comment on above: Performed By: #### L 300.3900, L300.4310, L500.2500, L500.3400, L100.0100 ####[facility] [address] [place], [address] Chloride [Moles/Vol] 98 mmol/L Normal 98-108 [facility] Comment on above: Performed By: #### L 300.3900, L300.4310, L500.2500, L500.3400, L100.0100 ####[facility] [address] [place], [address] CO2 [Moles/Vol] 23.2 mmol/L Normal 21.0-32.0 [facility] Comment on above: Performed By: #### L 300.3900, L300.4310, L500.2500, L500.3400, L100.0100 ####[facility] [address] [place], [address] Creatinine [Mass/Vol] 4.50 mg/dL High 0.70-1.20 [facility] Comment on above: Performed By: #### L 300.3900, L300.4310, L500.2500, L500.3400, L100.0100 ####[facility] [address] [place], [address] ECRCL 19.49 ml/min Low 50-250 [facility] Comment on above: Performed By: #### L 300.3900, L300.4310, L500.2500, L500.3400, L100.0100 ####[facility] [address] [place], [address] GAP 17 High 5-15 [facility] Comment on above: Performed By: #### L 300.3900, L300.4310, L500.2500, L500.3400, L100.0100 ####[facility] [address] [place], [address] GFR/1.73 sq M.predicted among non-blacks MDRD (S/P/Bld) [Vol rate/Area] 13 mL/min/{1.73_m2} Low >60 [facility] Comment on above: Result Comment: mL/m in/1.73m2 CKD-EPI Creatinine Equation (2020) Performed By: #### L 300.3900, L300.4310, L500.2500, L500.3400, L100.0100 ####[facility] [address] [place], [address] Glucose [Mass/Vol] 186 mg/dL High 70-99 [facility] Comment on above: Performed By: #### L 300.3900, L300.4310, L500.2500, L500.3400, L100.0100 ####[facility] [address] [place], [address] Potassium [Moles/Vol] 4.3 mmol/L Normal 3.3-5.1 [facility] Comment on above: Performed By: #### L 300.3900, L300.4310, L500.2500, L500.3400, L100.0100 ####[facility] [address] [place], [address] Sodium [Moles/Vol] 137 mmol/L Normal 133-145 [facility] Comment on above: Performed By: #### L 300.3900, L300.4310, L500.2500, L500.3400, L100.0100 ####[facility] [address] [place], [address] Urea nitrogen [Mass/Vol] 58 mg/dL High 4-19 [facility] Comment on above: Performed By: #### L 300.3900, L300.4310, L500.2500, L500.3400, L100.0100 ####[facility] [address] [place], [address] Basophil percentageOrdered B y: Moody Rodriguez on 10-04-2024 Basophils/100 WBC (Bld) 0.8 % 0-1 [facility] Basophil percentage 0.8 % 0-1 [facility] Bilirubin Test strip Ql (U)O rdered By: Moody Rodriguez on 10-04-2024 Bilirubin Ql (U) Negative Negative [facility] Bilirubin directOrdered By: Moody Rodriguez on 10-04-2024 Bilirubin.direct [Mass/Vol] 0.24 mg/dL 0.00-0.30 [facility] Bilirubin, totalOrdered By: Moody Rodriguez on 10-04-2024 Bilirubin [Mass/Vol] 0.53 mg/dL 0.00-1.30 [facility] Bilirubin, total 0.53 mg/dL 0.00-1.30 [facility] Bilirubin.direct [Mass/Vol]O rdered By: Moody Rodriguez on 10-04-2024 Bilirubin direct 0.24 mg/dL 0.00-0.30 [facility] CBC W/Diff, Automatedon 09-23 Absolute Lymph 0.90 X10 3/uL Normal 0.83-4.51 [facility] Comment on above: Performed By: #### L 300.3900, L300.4310, L500.2500, L500.3400, L100.0100 ####[facility] [address] [place], [address] Absolute Neut 4.8 X10 3/uL Normal 2.0-7.7 [facility] Comment on above: Performed By: #### L 300.3900, L300.4310, L500.2500, L500.3400, L100.0100 ####[facility] [address] [place], [address] Basophils/100 WBC (Bld) 0.8 % Normal 0-1 [facility] Comment on above: Performed By: #### L 300.3900, L300.4310, L500.2500, L500.3400, L100.0100 ####[facility] [address] [place], [address] Eosinophils/100 WBC (Bld) 2.8 % Normal 0-5 [facility] Comment on above: Performed By: #### L 300.3900, L300.4310, L500.2500, L500.3400, L100.0100 ####[facility] [address] [place], [address] Erythrocyte distribution width (RBC) [Ratio] 14.8 % High 11.6-14.6 [facility] Comment on above: Performed By: #### L 300.3900, L300.4310, L500.2500, L500.3400, L100.0100 ####[facility] [address] [place], [address] Hematocrit (Bld) [Volume fraction] 33.8 % Low 40-54 [facility] Comment on above: Performed By: #### L 300.3900, L300.4310, L500.2500, L500.3400, L100.0100 ####[facility] [address] [place], [address] Hemoglobin (Bld) [Mass/Vol] 10.9 g/dL Low 13.0-16.5 [facility] Comment on above: Performed By: #### L 300.3900, L300.4310, L500.2500, L500.3400, L100.0100 ####[facility] [address] [place], [address] IG% 0.300 Normal 0.0-0.9 [facility] Comment on above: Result Comment: IG% - Immature Granulocytes (promyelocytes, myelocytes andmetamyelocytes) > 1% indicates that a LEFT SHIFT is Present. Performed By: #### L 300.3900, L300.4310, L500.2500, L500.3400, L100.0100 ####[facility] [address] [place], [address] Lymphocytes/100 WBC (Bld) 13.8 % Low 19-41 [facility] Comment on above: Performed By: #### L 300.3900, L300.4310, L500.2500, L500.3400, L100.0100 ####[facility] [address] [place], [address] MCH (RBC) [Entitic mass] 30.0 pg Normal 27.0-32.0 [facility] Comment on above: Performed By: #### L 300.3900, L300.4310, L500.2500, L500.3400, L100.0100 ####[facility] [address] [place], [address] MCHC (RBC) [Mass/Vol] 32.2 g/dL Normal 32-36 [facility] Comment on above: Performed By: #### L 300.3900, L300.4310, L500.2500, L500.3400, L100.0100 ####[facility] [address] [place], [address] MCV (RBC) [Entitic vol] 93.1 fL Normal 80-94 [facility] Comment on above: Performed By: #### L 300.3900, L300.4310, L500.2500, L500.3400, L100.0100 ####[facility] [address] [place], [address] Monocytes/100 WBC (Bld) 8.3 % Normal 0-10 [facility] Comment on above: Performed By: #### L 300.3900, L300.4310, L500.2500, L500.3400, L100.0100 ####[facility] [address] [place], [address] Neutrophils/100 WBC (Bld) 74.0 % High 47-70 [facility] Comment on above: Performed By: #### L 300.3900, L300.4310, L500.2500, L500.3400, L100.0100 ####[facility] [address] [place], [address] Nucleated RBC (Bld) [#/Vol] 0 10*3/uL Normal 0-5 [facility] Comment on above: Performed By: #### L 300.3900, L300.4310, L500.2500, L500.3400, L100.0100 ####[facility] [address] [place], [address] Platelet mean volume (Bld) [Entitic vol] 8.9 fL Normal 6.2-12.0 [facility] Comment on above: Performed By: #### L 300.3900, L300.4310, L500.2500, L500.3400, L100.0100 ####[facility] [address] [place], [address] Platelets (Bld) [#/Vol] 184 10*3/uL Normal 150-450 [facility] Comment on above: Performed By: #### L 300.3900, L300.4310, L500.2500, L500.3400, L100.0100 ####[facility] [address] [place], [address] RBC (Bld) [#/Vol] 3.63 10*6/uL Low 4.6-6.2 [facility] Comment on above: Performed By: #### L 300.3900, L300.4310, L500.2500, L500.3400, L100.0100 ####[facility] [address] [place], [address] RDW SD 49.6 fl High 35.1-43.9 [facility] Comment on above: Performed By: #### L 300.3900, L300.4310, L500.2500, L500.3400, L100.0100 ####[facility] [address] [place], [address] WBC (Bld) [#/Vol] 6.5 10*3/uL Normal 4.4-11.0 [facility] Comment on above: Performed By: #### L 300.3900, L300.4310, L500.2500, L500.3400, L100.0100 ####[facility] [address] [place], [address] Calcium [Mass/Vol]Ordered By : Moody Rodriguez on 10-04-2024 Serum or plasma calcium measurement (mass/volume) 9.1 mg/dL 7.6-11.0 [facility] Carbon dioxide, total [Moles /volume] in Central venous bloodOrdered By: Moody Rodriguez on 10-04-2024 CO2 [Moles/Vol] 23.2 mmol/L 21.0-32.0 [facility] Carbon dioxide, total [Moles/volume] in Central venous blood 23.2 mmol/L 21.0-32.0 [facility] Chloride assayOrdered By: Bhavin Rodriguez on 10-04-2024 Chloride [Moles/Vol] 98 mmol/L 98-108 [facility] Chloride assay 98 mmol/L 98-108 [facility] Clarity (U)Ordered By: Gerald Rodriguez on 10-04-2024 Urine clarity Sl. Cloudy Clear [facility] Color (U)Ordered By: Moody Rodriguez on 10-04-2024 Urine color determination Yellow Yellow [facility] Creatinine [Mass/Vol]Ordered By: Moody Rodriguez on 10-04-2024 Serum creatinine measurement (mass/volume) 4.50 mg/dL High 0.70-1.20 [facility] Emergency Department Summary on 10-04-2024 Emergency Department Summary Normal [facility] Eosinophil percentageOrdered By: Moody Rodriguez on 10-04-2024 Eosinophils/100 WBC (Bld) 2.8 % 0-5 [facility] Eosinophil percentage 2.8 % 0-5 [facility] Epithelial cells.squamous LM Ql (Urine sed)Ordered By: Moody Rodriguez on 10-04-2024 Epithelial cells.squamous LM.HPF (Urine sed) [#/Area] 0 /[HPF] 0-5 [facility] Erythrocyte distribution wid th (RBC) [Ratio]Ordered By: Moody Rodriguez on 10-04-2024 Erythrocyte distribution width ratio 14.8 % High 11.6-14.6 [facility] Erythrocyte distribution width standard deviation 49.6 fl High 35.1-43.9 [facility] Erythrocyte distribution wid th ratioOrdered By: Moody Rodriguez on 10-04-2024 Erythrocyte distribution width (RBC) [Ratio] 14.8 % High 11.6-14.6 [facility] Erythrocyte distribution wid th standard deviationOrdered By: Moody Rodriguez on 10-04-2024 Erythrocyte distribution width (RBC) [Entitic vol] 49.6 fL High 35.1-43.9 [facility] Erythrocyte distribution width (RBC) [Ratio] 49.6 fl High 35.1-43.9 [facility] Estimation of creatinine donavan aranceOrdered By: Moody Rodriguez on 10-04-2024 Estimated Creatinine Clearance Calc 19.49 ml/min Low 50-250 [facility] Estimation of creatinine clearance 19.49 ml/min Low 50-250 [facility] GFR/1.73 sq M.predicted alivia g non-blacks MDRD (S/P/Bld) [Vol rate/Area]Ordered By: Moody Rodriguez on 10-04-2024 Estimated GFR (MDRD) Non-Af Amer 13 Low >60 [facility] Comment on above: mL/min/1.73m2 CKD-EP I Creatinine Equation (2020) Glomerular filtration rate (GFR) estimation/1.73 sq m using serum, plasma, or whole b 13 Low >60 [facility] Glomerular filtration rate ( GFR) estimation/1.73 sq m using serum, plasma, or whole bOrdered By: Moody Rodriguez on 10-04-2024 GFR/1.73 sq M.predicted among non-blacks MDRD (S/P/Bld) [Vol rate/Area] 13 mL/min/{1.73_m2} Low >60 [facility] Glucose Ql (U)Ordered By: Bhavin Rodriguez on 10-04-2024 Glucose (U) [Mass/Vol] 50 mg/dL High Normal [facility] Urine glucose detection 50 mg/dl High Normal [facility] Glucose [Mass/Vol]Ordered By : Moody Rodriguez on 10-04-2024 Serum glucose measurement (mass/volume) 186 mg/dL High 70-99 [facility] Hematocrit Auto (Bld) [Volum e fraction]Ordered By: Moody Rodriguez on 10-04-2024 Hematocrit (Bld) [Volume fraction] 33.8 % Low 40-54 [facility] Automated blood hematocrit (percentage) 33.8 % Low 40-54 [facility] Hemoglobin measurementOrdere d By: Moody Rodriguez on 10-04-2024 Hemoglobin (Bld) [Mass/Vol] 10.9 g/dL Low 13.0-16.5 [facility] Hemoglobin measurement 10.9 g/dL Low 13.0-16.5 [facility] Immature granulocytes/100 WB C Auto (Bld)Ordered By: Moody Rodriguez on 10-04-2024 Immature granulocytes/100 WBC (Bld) 0.300 % 0.0-0.9 [facility] Comment on above: IG% - Immature Granu locytes (promyelocytes, myelocytes and metamyelocytes) > 1% indicates that a LEFT SHIFT is Present. Automated immature granulocyte percentage 0.300 % 0.0-0.9 [facility] International normalized rat io (INR) calculationOrdered By: Moody Rodriguez on 10-04-2024 INR Coag (Bld) [Relative time] 1.3 {INR} [facility] International normalized ratio (INR) calculation 1.3 [facility] Ketones Test strip Ql (U)Ord ered By: Moody Rodriguez on 10-04-2024 Ketones Ql (U) Negative Negative [facility] Laboratory - Chemistry and C hemistry - challengeOrdered By: Moody Rodriguez on 10-04-2024 AST [Catalytic activity/Vol] 23 U/L <38 [facility] Leukocyte esterase Test stri p Ql (U)Ordered By: Moody Rodriguez on 10-04-2024 Urine leukocyte esterase detection by dipstick 25 /ul High Negative [facility] Liver Profileon 10-04-2024 Albumin [Mass/Vol] 3.4 g/dL Normal 3.4-4.8 [facility] Comment on above: Performed By: #### L 300.3900, L300.4310, L500.2500, L500.3400, L100.0100 ####[facility] [address] [place], [address] ALK PHOS 74 U/L Normal 40-129 [facility] Comment on above: Performed By: #### L 300.3900, L300.4310, L500.2500, L500.3400, L100.0100 ####[facility] [address] [place], [address] ALT [Catalytic activity/Vol] 10 U/L Normal <=46 [facility] Comment on above: Performed By: #### L 300.3900, L300.4310, L500.2500, L500.3400, L100.0100 ####[facility] [address] [place], [address] AST [Catalytic activity/Vol] 23 U/L Normal <=37 [facility] Comment on above: Performed By: #### L 300.3900, L300.4310, L500.2500, L500.3400, L100.0100 ####[facility] [address] [place], [address] Bilirubin [Mass/Vol] 0.53 mg/dL Normal 0.00-1.30 [facility] Comment on above: Performed By: #### L 300.3900, L300.4310, L500.2500, L500.3400, L100.0100 ####[facility] [address] [place], [address] Bilirubin.direct [Mass/Vol] 0.24 mg/dL Normal 0.00-0.30 [facility] Comment on above: Performed By: #### L 300.3900, L300.4310, L500.2500, L500.3400, L100.0100 ####[facility] [address] [place], [address] Globulin (S) [Mass/Vol] 3.6 g/dL Normal 2.2-4.2 [facility] Comment on above: Performed By: #### L 300.3900, L300.4310, L500.2500, L500.3400, L100.0100 ####[facility] [address] [place], [address] T PROT 7.0 g/dL Normal 5.9-8.4 [facility] Comment on above: Performed By: #### L 300.3900, L300.4310, L500.2500, L500.3400, L100.0100 ####[facility] [address] [place], [address] Lymphocytes Auto (Unsp spec) [#/Vol]Ordered By: Moody Rodriguez on 10-04-2024 Lymphocytes (Bld) [#/Vol] 0.90 10*3/uL 0.83-4.51 [facility] Absolute lymphocyte count 0.90 X10^3/uL 0.83-4.51 [facility] Lymphocytes/100 WBC Auto (Un sp spec)Ordered By: Moody Rodriguez on 10-04-2024 Lymphocytes/100 WBC (Bld) 13.8 % Low 19-41 [facility] Automated lymphocyte count as percentage of total leukocytes 13.8 % Low 19-41 [facility] MCV (RBC) [Entitic vol]Order ed By: Moody Rodriguez on 10-04-2024 MCV (mean corpuscular volume) determination 93.1 fL 80-94 [facility] MCV (mean corpuscular volume ) determinationOrdered By: Moody Rodriguez on 10-04-2024 MCV (RBC) [Entitic vol] 93.1 fL 80-94 [facility] Mean corpuscular hemoglobin (MCH) determinationOrdered By: Moody Rodriguez on 10-04-2024 MCH (RBC) [Entitic mass] 30.0 pg 27.0-32.0 [facility] Mean corpuscular hemoglobin (MCH) determination 30.0 pg 27.0-32.0 [facility] Mean corpuscular hemoglobin concentration (MCHC) determinationOrdered By: Moody Rodriguez on 10-04-2024 MCHC (RBC) [Mass/Vol] 32.2 g/dL -36 [facility] Mean corpuscular hemoglobin concentration (MCHC) determination 32.2 g/dL -36 [facility] Mean platelet volume determi nationOrdered By: Moody Rodriguez on 10-04-2024 Platelet mean volume (Bld) [Entitic vol] 8.9 fL 6.2-12.0 [facility] Mean platelet volume determination 8.9 fl 6.2-12.0 [facility] Microscopic analysis of urin e for red blood cells (RBC)Ordered By: Moody Rodriguez on 10-04-2024 Urine RBC > 100 SEEN /hpf 0-5 [facility] Microscopic analysis of urine for red blood cells (RBC) > 100 SEEN /hpf 0-5 [facility] Monocyte percentageOrdered B y: Moody Rodriguez on 10-04-2024 Monocytes/100 WBC (Bld) 8.3 % 0-10 [facility] Monocyte percentage 8.3 % 0-10 [facility] Mucus LM Ql (Urine sed)Order ed By: Moody Rodriguez on 10-04-2024 Mucus Ql (Urine sed) 0 SEEN /hpf [facility] Neutrophil percentageOrdered By: Moody Rodriguez on 10-04-2024 Neutrophils/100 WBC (Bld) 74.0 % High 47-70 [facility] Neutrophil percentage 74.0 % High 47-70 [facility] Nitrite Test strip Ql (U)Ord ered By: Moody Rodriguez on 10-04-2024 Nitrite Ql (U) Negative Negative [facility] No Panel InformationOrdered By: Moody Rodriguez on 10-04-2024 23 U/L <38 [facility] Nucleated red blood cell per centageOrdered By: Moody Rodriguez on 10-04-2024 Nucleated RBC/100 WBC (Bld) [Ratio] 0 % 0-5 [facility] Nucleated red blood cell percentage 0 % 0-5 [facility] Partial Thromboplast Timeon 10-04-2024 aPTT Coag (Bld) [Time] 36.8 s High 24.1-36.2 [facility] Comment on above: Performed By: #### L 300.3900, L300.4310, L500.2500, L500.3400, L100.0100 ####[facility] [address] [place], [place], [id number] Platelet countOrdered By: Bhavin Rodriguez on 10-04-2024 Platelets (Bld) [#/Vol] 184 10*3/uL 150-450 [facility] Platelet count 184 K/mm3 150-450 [facility] Potassium (Unsp spec) [Mass/ Vol]Ordered By: Moody Rodriguez on 10-04-2024 Potassium [Moles/Vol] 4.3 mmol/L 3.3-5.1 [facility] Potassium measurement (mass/volume) 4.3 mmol/L 3.3-5.1 [facility] Potassium measurement (mass/ volume)Ordered By: Moody Rodriguez on 10-04-2024 Potassium (Unsp spec) [Mass/Vol] 4.3 mmol/L 3.3-5.1 [facility] Protein Test strip Ql (U)Ord ered By: Moody Rodriguez on 10-04-2024 Protein Ql (U) 500 mg/dl High Negative [facility] Urine protein assay by test strip, semi-quantitative 500 mg/dl High Negative [facility] Prothrombin Time w/INRon INR Coag (PPP) [Relative time] 1.3 {INR} Normal [facility] Comment on above: Performed By: #### L 300.3900, L300.4310, L500.2500, L500.3400, L100.0100 ####[facility] [address] [place], [address] PT Coag (PPP) [Time] 16.6 s High 11.7-14.9 [facility] Comment on above: Performed By: #### L 300.3900, L300.4310, L500.2500, L500.3400, L100.0100 ####[facility] [address] [place], [address] Prothrombin timeOrdered By: Moody Rodriguez on 10-04-2024 PT Coag (PPP) [Time] 16.6 s High 11.7-14.9 [facility] Prothrombin time 16.6 SECONDS High 11.7-14.9 [facility] RBC Auto (Bld) [#/Vol]Ordere d By: Moody Rodriguez on 10-04-2024 RBC (Bld) [#/Vol] 3.63 10*6/uL Low 4.6-6.2 [facility] Automated blood erythrocyte count 3.63 M/mm3 Low 4.6-6.2 [facility] Serum creatinine measurement (mass/volume)Ordered By: Moody oRdriguez on 10-04-2024 Creatinine [Mass/Vol] 4.50 mg/dL High 0.70-1.20 [facility] Serum globulin measurementOr dered By: Moody Rodriguez on 10-04-2024 Globulin (S) [Mass/Vol] 3.6 g/dL 2.2-4.2 [facility] Serum globulin measurement 3.6 g/dL 2.2-4.2 [facility] Serum glucose measurement (m ass/volume)Ordered By: Moody Rodriguez on 10-04-2024 Glucose [Mass/Vol] 186 mg/dL High 70-99 [facility] Serum or plasma alanine magana otransferase (ALT) measurementOrdered By: Moody Rodriguez on 10-04-2024 ALT [Catalytic activity/Vol] 10 U/L <47 [facility] Serum or plasma albumin joshua urement (mass/volume)Ordered By: Moody Rodriguez on 10-04-2024 Albumin [Mass/Vol] 3.4 g/dL 3.4-4.8 [facility] Serum or plasma alkaline denise sphatase measurementOrdered By: Moody Rodriguez on 10-04-2024 ALP [Catalytic activity/Vol] 74 U/L 40-129 [facility] Serum or plasma calcium joshua urement (mass/volume)Ordered By: Moody Rodriguez on 10-04-2024 Calcium [Mass/Vol] 9.1 mg/dL 7.6-11.0 [facility] Serum or plasma urea nitroge n measurement (mass/volume)Ordered By: Moody Rodriguez on 10-04-2024 Urea nitrogen [Mass/Vol] 58 mg/dL High 4-19 [facility] Sodium levelOrdered By: Hao Rodriguez on 10-04-2024 Sodium [Moles/Vol] 137 mmol/L 133-145 [facility] Sodium level 137 mmol/L 133-145 [facility] Specific gravity (U) [Rel de nsity]Ordered By: Moody Rodriguez on 10-04-2024 Urine specific gravity measurement 1.010 1.002-1.030 [facility] Squamous epithelial cells de tection in urine sediment by light microscopyOrdered By: Moody Rodriguez on 10-04-2024 Epithelial cells.squamous LM Ql (Urine sed) 0 SEEN /hpf 0-5 [facility] Squamous epithelial cells detection in urine sediment by light microscopy 0 SEEN /hpf [facility] Total proteinOrdered By: Weston Rodriguez on 10-04-2024 Protein [Mass/Vol] 7.0 g/dL 5.9-8.4 [facility] Total protein 7.0 g/dL 5.9-8.4 [facility] Urea nitrogen [Mass/Vol]Orde red By: Moody Rodriguez on 10-04-2024 Serum or plasma urea nitrogen measurement (mass/volume) 58 mg/dL High 4-19 [facility] Urinalysis, Completeon 10-04 WBC 5-10 SEEN Normal 0-5 [facility] Comment on above: Order Comment: CLEAN CATCH Performed By: #### L 400.0001 ####[facility] [address] [place], [place], [id number] RBC > 100 SEEN Normal [address] Comment on above: Order Comment: CLEAN CATCH Performed By: #### L 400.0001 ####[facility] [address] [place], [address] BACTERIA 0 SEEN Normal None Seen [facility] Comment on above: Order Comment: CLEAN CATCH Performed By: #### L 400.0001 ####[facility] [address] [place], [address] EPI,SQUAMOUS 0 SEEN Normal 0-5 [facility] Comment on above: Order Comment: CLEAN CATCH Performed By: #### L 400.0001 ####[facility] [address] [place], [address] Mucus Ql (Urine sed) 0 SEEN Normal [facility] Comment on above: Order Comment: CLEAN CATCH Performed By: #### L 400.0001 ####[facility] [address] [place], [address] Urine blood detectionOrdered By: Moody Rodriguez on 10-04-2024 Urine Occult Blood 250 /ul High Negative [facility] Urine blood detection 250 /ul High Negative [facility] Urine clarityOrdered By: Weston Rodriguez on 10-04-2024 Clarity (U) Sl. Cloudy Clear [facility] Urine color determinationOrd ered By: Moody Rodriguez on 10-04-2024 Color (U) Yellow Yellow [facility] Urine glucose detectionOrder ed By: Moody Rodriguez on 10-04-2024 Glucose Ql (U) 50 mg/dl High Normal [facility] Urine leukocyte esterase det ection by dipstickOrdered By: Moody Rodriguez on 10-04-2024 Leukocyte esterase Test strip Ql (U) 25 /ul High Negative [facility] Urine pHOrdered By: Moody giron on 10-04-2024 pH (U) 8.0 [pH] 5.0 - 8.0 [facility] Urine sediment bacteria coun t by microscopy (number/high power field)Ordered By: Moody Rodriguez on 10-04-2024 Bacteria LM.HPF (Urine sed) [#/Area] 0 /[HPF] None Seen [facility] Urine specific gravity measu rementOrdered By: Moody Rodriguez on 10-04-2024 Specific gravity (U) [Rel density] 1.010 1.002-1.030 [facility] Urine total bilirubin detect ion by test stripOrdered By: Moody Rodriguez on 10-04-2024 Urine total bilirubin detection by test strip Negative Negative [facility] Urine urobilinogen measureme ntOrdered By: Moody Rodriguez on 10-04-2024 Urobilinogen Ql (U) Normal mg/dl Normal [facility] Urobilinogen Ql (U)Ordered B y: Moody Rodriguez on 10-04-2024 Urine Urobilinogen Normal mg/dl Normal [facility] Urine urobilinogen measurement Normal mg/dl Normal [facility] White blood cell (WBC) count Ordered By: Moody Rodriguez on 10-04-2024 WBC (Bld) [#/Vol] 6.5 10*3/uL 4.4-11.0 [facility] White blood cell (WBC) count 6.5 K/mm3 4.4-11.0 [facility] White blood cell countOrdere d By: Moody Rodriguez on 10-04-2024 Urine WBC 5-10 SEEN /hpf 0-5 [facility] White blood cell count 5-10 SEEN /hpf 0-5 [facility] White blood cell count 5-10 SEEN /hpf 0-5 [facility] aPTT Coag (PPP) [Time]Ordere d By: Moody Rodriguez on 10-04-2024 aPTT Coag (Bld) [Time] 36.8 s High 24.1-36.2 [facility] Activated partial thromboplastin time (aPTT) in platelet poor plasma by coagulation a 36.8 Seconds High 24.1-36.2 [facility] pH (U)Ordered By: Moody pires on 10-04-2024 Urine pH 8.0 5.0 - 8.0 [facility] ALP [Catalytic activity/Vol] Ordered By: Jeffrey Kuhn on 09-12-2024 Serum or plasma alkaline phosphatase measurement 80 U/L 45-117 [facility] ALT [Catalytic activity/Vol] Ordered By: Jeffrey Kuhn on 09-12-2024 Serum or plasma alanine aminotransferase (ALT) measurement 14 U/L Low 16-61 [facility] Absolute neutrophil countOrd ered By: Jeffrey Kuhn on 09-12-2024 Neutrophils (Bld) [#/Vol] 5.7 10*3/uL 2.0-7.7 [facility] Absolute neutrophil count 5.7 X10^3/uL 2.0-7.7 [facility] Albumin [Mass/Vol]Ordered By : Jeffrey Kuhn on 09-12-2024 Serum or plasma albumin measurement (mass/volume) 2.9 g/dL Low 3.2-5.0 [facility] Albumin to globulin ratioOrd ered By: Jeffrey uKhn on 09-12-2024 Albumin/Globulin [Mass ratio] 0.6 {ratio} Low 0.9-2.4 [facility] Albumin to globulin ratio 0.6 RATIO Low 0.9-2.4 [facility] Basophil percentageOrdered B y: Jeffrey Kuhn on 09-12-2024 Basophils/100 WBC (Bld) 1.1 % High 0-1 [facility] Basophil percentage 1.1 % High 0-1 [facility] Bilirubin, totalOrdered By: Jeffrey Kuhn on 09-12-2024 Bilirubin [Mass/Vol] 1.00 mg/dL 0.20-1.00 [facility] Comment on above: For patients on eltr ombopag therapy, use of Dimension [place] TBIL is not recommended. Bilirubin, total 1.00 mg/dL 0.20-1.00 [facility] Blood urea nitrogen (BUN)/cr eatinine ratioOrdered By: Jeffrey Kuhn on 09-12-2024 Urea nitrogen/Creatinine [Mass ratio] 9.8 mg/mg Low 10-20 [facility] Blood urea nitrogen (BUN)/creatinine ratio 9.8 RATIO Low 10-20 [facility] CBC W/Diff, Automatedon 08-26 Absolute Lymph 1.19 X10 3/uL Normal 0.83-4.51 [facility] Comment on above: Performed By: #### L 504.2610, L500.4050, L100.0100 ####[facility] [address] [place], [address] Absolute Neut 5.7 X10 3/uL Normal 2.0-7.7 [facility] Comment on above: Performed By: #### L 504.2610, L500.4050, L100.0100 ####[facility] [address] [place], [address] Basophils/100 WBC (Bld) 1.1 % High 0-1 [facility] Comment on above: Performed By: #### L 504.2610, L500.4050, L100.0100 ####[facility] [address] [place], [address] Eosinophils/100 WBC (Bld) 1.6 % Normal 0-5 [facility] Comment on above: Performed By: #### L 504.2610, L500.4050, L100.0100 ####[facility] [address] [place], [address] Erythrocyte distribution width (RBC) [Ratio] 14.5 % Normal 11.6-14.6 [facility] Comment on above: Performed By: #### L 504.2610, L500.4050, L100.0100 ####[facility] [address] [place], [address] Hematocrit (Bld) [Volume fraction] 36.2 % Low 40-54 [facility] Comment on above: Performed By: #### L 504.2610, L500.4050, L100.0100 ####[facility] [address] [place], [address] Hemoglobin (Bld) [Mass/Vol] 11.5 g/dL Low 13.0-16.5 [facility] Comment on above: Performed By: #### L 504.2610, L500.4050, L100.0100 ####[facility] [address] [place], [address] IG% 0.300 Normal 0.0-0.9 [facility] Comment on above: Result Comment: IG% - Immature Granulocytes (promyelocytes, myelocytes andmetamyelocytes) > 1% indicates that a LEFT SHIFT is Present. Performed By: #### L 504.2610, L500.4050, L100.0100 ####[facility] [address] [place], [address] Lymphocytes/100 WBC (Bld) 15.0 % Low 19-41 [facility] Comment on above: Performed By: #### L 504.2610, L500.4050, L100.0100 ####[facility] [address] [place], [address] MCH (RBC) [Entitic mass] 29.9 pg Normal 27.0-32.0 [facility] Comment on above: Performed By: #### L 504.2610, L500.4050, L100.0100 ####[facility] [address] [place], [address] MCHC (RBC) [Mass/Vol] 31.8 g/dL Low 32-36 [facility] Comment on above: Performed By: #### L 504.2610, L500.4050, L100.0100 ####[facility] [address] [place], [address] MCV (RBC) [Entitic vol] 94.0 fL Normal 80-94 [facility] Comment on above: Performed By: #### L 504.2610, L500.4050, L100.0100 ####[facility] [address] [place], [address] Monocytes/100 WBC (Bld) 9.7 % Normal 0-10 [facility] Comment on above: Performed By: #### L 504.2610, L500.4050, L100.0100 ####[facility] [address] [place], [address] Neutrophils/100 WBC (Bld) 72.3 % High 47-70 [facility] Comment on above: Performed By: #### L 504.2610, L500.4050, L100.0100 ####[facility] [address] [place], [address] Nucleated RBC (Bld) [#/Vol] 0 10*3/uL Normal 0-5 [facility] Comment on above: Performed By: #### L 504.2610, L500.4050, L100.0100 ####[facility] [address] [place], [address] Platelet mean volume (Bld) [Entitic vol] 8.6 fL Normal 6.2-12.0 [facility] Comment on above: Performed By: #### L 504.2610, L500.4050, L100.0100 ####[facility] [address] [place], [address] Platelets (Bld) [#/Vol] 213 10*3/uL Normal 150-450 [facility] Comment on above: Performed By: #### L 504.2610, L500.4050, L100.0100 ####[facility] [address] [place], [address] RBC (Bld) [#/Vol] 3.85 10*6/uL Low 4.6-6.2 [facility] Comment on above: Performed By: #### L 504.2610, L500.4050, L100.0100 ####[facility] [address] [place], [address] RDW SD 49.9 fl High 35.1-43.9 [facility] Comment on above: Performed By: #### L 504.2610, L500.4050, L100.0100 ####[facility] [address] [place], [address] WBC (Bld) [#/Vol] 7.9 10*3/uL Normal 4.4-11.0 [facility] Comment on above: Performed By: #### L 504.2610, L500.4050, L100.0100 ####[facility] [address] [place], [address] Calcium [Mass/Vol]Ordered By : Jeffrey Kuhn on 09-12-2024 Serum or plasma calcium measurement (mass/volume) 9.3 mg/dL 8.5-10.1 [facility] Carbon dioxide measurementOr dered By: Jeffrey Kuhn on 09-12-2024 CO2 [Moles/Vol] 29.0 mmol/L 21.0-32.0 [facility] Carbon dioxide measurement 29.0 mmol/L 21.0-32.0 [facility] Chloride measurementOrdered By: Jeffrey Kuhn on 09-12-2024 Chloride [Moles/Vol] 96 mmol/L Low 98-107 [facility] Chloride measurement 96 mmol/L Low 98-107 [facility] Comprehensive Metabolic Prof ilon 09-12-2024 Albumin [Mass/Vol] 2.9 g/dL Low 3.2-5.0 [facility] Comment on above: Performed By: #### L 504.2610, L500.4050, L100.0100 ####[facility] [address] [place], [address] Albumin/Globulin [Mass ratio] 0.6 {ratio} Low 0.9-2.4 [facility] Comment on above: Performed By: #### L 504.2610, L500.4050, L100.0100 ####[facility] [address] [place], [address] ALK P 80 U/L Normal 45-117 [facility] Comment on above: Performed By: #### L 504.2610, L500.4050, L100.0100 ####[facility] [address] [place], [address] ALT [Catalytic activity/Vol] 14 U/L Low 16-61 [facility] Comment on above: Performed By: #### L 504.2610, L500.4050, L100.0100 ####[facility] [address] [place], [address] AST [Catalytic activity/Vol] 19 U/L Normal 15-37 [facility] Comment on above: Performed By: #### L 504.2610, L500.4050, L100.0100 ####[facility] [address] [place], [address] Bilirubin [Mass/Vol] 1.00 mg/dL Normal 0.20-1.00 [facility] Comment on above: Result Comment: For patients on eltrombopag therapy, use of Dimension [place] TBIL is not recommended. Performed By: #### L 504.2610, L500.4050, L100.0100 ####[facility] [address] [place], [address] BUN/CRE 9.8 RATIO Low 10-20 [facility] Comment on above: Performed By: #### L 504.2610, L500.4050, L100.0100 ####[facility] [address] [place], [address] CA,Total 9.3 mg/dL Normal 8.5-10.1 [facility] Comment on above: Performed By: #### L 504.2610, L500.4050, L100.0100 ####[facility] [address] [place], [address] Chloride [Moles/Vol] 96 mmol/L Low 98-107 [facility] Comment on above: Performed By: #### L 504.2610, L500.4050, L100.0100 ####[facility] [address] [place], [address] CO2 [Moles/Vol] 29.0 mmol/L Normal 21.0-32.0 [facility] Comment on above: Performed By: #### L 504.2610, L500.4050, L100.0100 ####[facility] [address] [place], [address] Creatinine [Mass/Vol] 4.50 mg/dL High 0.70-1.30 [facility] Comment on above: Result Comment: The validity of the calculated GFR GFRAA in patients over70 years has not been determined. Clinical correlation isessential. Performed By: #### L 504.2610, L500.4050, L100.0100 ####[facility] [address] [place], [address] ECRCL 19.19 ml/min Normal [facility] Comment on above: Performed By: #### L 504.2610, L500.4050, L100.0100 ####[facility] [address] [place], [address] EST GFR - AA 17 mL/min Low >60 [facility] Comment on above: Result Comment: Afri can [place] GFR Calc Performed By: #### L 504.2610, L500.4050, L100.0100 ####[facility] [address] [place], [address] GAP 11 Normal 5-15 [facility] Comment on above: Performed By: #### L 504.2610, L500.4050, L100.0100 ####[facility] [address] [place], [address] GFR/1.73 sq M.predicted among non-blacks MDRD (S/P/Bld) [Vol rate/Area] 14 mL/min/{1.73_m2} Low >60 [facility] Comment on above: Result Comment: Non- GFR Calc Performed By: #### L 504.2610, L500.4050, L100.0100 ####[facility] [address] [place], [address] Globulin (S) [Mass/Vol] 4.7 g/dL High 2.2-4.2 [facility] Comment on above: Performed By: #### L 504.2610, L500.4050, L100.0100 ####[facility] [address] [place], [address] Glucose [Mass/Vol] 159 mg/dL High 74-106 [facility] Comment on above: Result Comment: Fast ing Glucose result greater than or equal to 126 mg/dLsuggests DIABETES MELLITUS per A.D.A. criteria. Performed By: #### L 504.2610, L500.4050, L100.0100 ####[facility] [address] [place], [address] Potassium [Moles/Vol] 4.2 mmol/L Normal 3.5-5.1 [facility] Comment on above: Performed By: #### L 504.2610, L500.4050, L100.0100 ####[facility] [address] [place], [address] Sodium [Moles/Vol] 136 mmol/L Normal 136-145 [facility] Comment on above: Performed By: #### L 504.2610, L500.4050, L100.0100 ####[facility] [address] [place], [address] T PROT 7.6 g/dL Normal 6.4-8.2 [facility] Comment on above: Performed By: #### L 504.2610, L500.4050, L100.0100 ####[facility] [address] [place], [address] Urea nitrogen [Mass/Vol] 44 mg/dL High 7-18 [facility] Comment on above: Performed By: #### L 504.2610, L500.4050, L100.0100 ####[facility] [address] [place], [address] Creatinine [Mass/Vol]Ordered By: Jeffrey Kuhn on 09-12-2024 Serum or plasma creatinine measurement (mass/volume) 4.50 mg/dL High 0.70-1.30 [facility] Eosinophil percentageOrdered By: Jeffrey Kuhn on 09-12-2024 Eosinophils/100 WBC (Bld) 1.6 % 0-5 [facility] Eosinophil percentage 1.6 % 0-5 [facility] Erythrocyte distribution wid th (RBC) [Ratio]Ordered By: Jeffrey Kuhn on 09-12-2024 Erythrocyte distribution width ratio 14.5 % 11.6-14.6 [facility] Erythrocyte distribution width standard deviation 49.9 fl High 35.1-43.9 [facility] Erythrocyte distribution wid th ratioOrdered By: Jeffrey Kuhn on 09-12-2024 Erythrocyte distribution width (RBC) [Ratio] 14.5 % 11.6-14.6 [facility] Erythrocyte distribution wid th standard deviationOrdered By: Jeffrey Kuhn on 09-12-2024 Erythrocyte distribution width (RBC) [Entitic vol] 49.9 fL High 35.1-43.9 [facility] Estimated glomerular filtrat ion rate (GFR) AmericanOrdered By: Jeffrey Kuhn on 09-12-2024 Estimated GFR (MDRD) Amer 17 mL/min Low >60 [facility] Comment on above: GFR Calc Estimated glomerular filtration rate (GFR) 17 mL/min Low >60 [facility] Estimation of creatinine donavan aranceOrdered By: Jeffrey Kuhn on 09-12-2024 Estimated Creatinine Clearance Calc 19.19 ml/min [facility] Estimation of creatinine clearance 19.19 ml/min [facility] Glomerular filtration rate ( GFR) estimationOrdered By: Jeffrey Kuhn on 09-12-2024 Estimated GFR (MDRD) Non-Af Amer 14 mL/min Low >60 [facility] Comment on above: Non- GFR Calc Glomerular filtration rate (GFR) estimation 14 mL/min Low >60 [facility] Glucose measurementOrdered B y: Jeffrey Kuhn on 09-12-2024 Glucose [Mass/Vol] 159 mg/dL High 74-106 [facility] Comment on above: Fasting Glucose resu lt greater than or equal to 126 mg/dL suggests DIABETES MELLITUS per A.D.A. criteria. Glucose measurement 159 mg/dL High 74-106 [facility] Hematocrit Auto (Bld) [Volum e fraction]Ordered By: Jeffrey Kuhn on 09-12-2024 Hematocrit (Bld) [Volume fraction] 36.2 % Low 40-54 [facility] Automated blood hematocrit (percentage) 36.2 % Low 40-54 [facility] Hemoglobin measurementOrdere d By: Jeffrey Kuhn on 09-12-2024 Hemoglobin (Bld) [Mass/Vol] 11.5 g/dL Low 13.0-16.5 [facility] Hemoglobin measurement 11.5 g/dL Low 13.0-16.5 [facility] Immature granulocytes/100 WB C Auto (Bld)Ordered By: Jeffrey Kuhn on 09-12-2024 Immature granulocytes/100 WBC (Bld) 0.300 % 0.0-0.9 [facility] Comment on above: IG% - Immature Granu locytes (promyelocytes, myelocytes and metamyelocytes) > 1% indicates that a LEFT SHIFT is Present. Automated immature granulocyte percentage 0.300 % 0.0-0.9 [facility] LDHon 09-12-2024 LDH 187 U/L Normal 87-241 [facility] Comment on above: Order Comment: 1 Performed By: #### L 504.2610, L500.4050, L100.0100 ####[facility] [address] [place], [address] Laboratory - Chemistry and C hemistry - challengeOrdered By: Jeffrey Kuhn on 09-12-2024 AST [Catalytic activity/Vol] 19 U/L 15-37 [facility] Lactate dehydrogenase (LDH) measurementOrdered By: Jeffrey Kuhn on 09-12-2024 LDH [Catalytic activity/Vol] 187 U/L 87-241 [facility] Lactate dehydrogenase (LDH) measurement 187 U/L 87-241 [facility] Lymphocytes Auto (Unsp spec) [#/Vol]Ordered By: Jeffrey Kuhn on 09-12-2024 Lymphocytes (Bld) [#/Vol] 1.19 10*3/uL 0.83-4.51 [facility] Absolute lymphocyte count 1.19 X10^3/uL 0.83-4.51 [facility] Lymphocytes/100 WBC Auto (Un sp spec)Ordered By: Jeffrey Kuhn on 09-12-2024 Lymphocytes/100 WBC (Bld) 15.0 % Low 41 [facility] Automated lymphocyte count as percentage of total leukocytes 15.0 % Low [facility] MCV (RBC) [Entitic vol]Order ed By: Jeffrey Kuhn on 09-12-2024 MCV (mean corpuscular volume) determination 94.0 fL 80-94 [facility] MCV (mean corpuscular volume ) determinationOrdered By: Jeffrey Kuhn on 09-12-2024 MCV (RBC) [Entitic vol] 94.0 fL 80-94 [facility] Mean corpuscular hemoglobin (MCH) determinationOrdered By: Jeffrey Kuhn on 09-12-2024 MCH (RBC) [Entitic mass] 29.9 pg 27.0-32.0 [facility] Mean corpuscular hemoglobin (MCH) determination 29.9 pg 27.0-32.0 [facility] Mean corpuscular hemoglobin concentration (MCHC) determinationOrdered By: Jeffrey Kuhn on 09-12-2024 MCHC (RBC) [Mass/Vol] 31.8 g/dL Low 32-36 [facility] Mean corpuscular hemoglobin concentration (MCHC) determination 31.8 g/dL Low 32-36 [facility] Mean platelet volume determi nationOrdered By: Jeffrey Kuhn on 09-12-2024 Platelet mean volume (Bld) [Entitic vol] 8.6 fL 6.2-12.0 [facility] Mean platelet volume determination 8.6 fl 6.2-12.0 [facility] Monocyte percentageOrdered B y: Jeffrey Kuhn on 09-12-2024 Monocytes/100 WBC (Bld) 9.7 % 0-10 [facility] Monocyte percentage 9.7 % 0-10 [facility] Neutrophil percentageOrdered By: Jeffrey Kuhn on 09-12-2024 Neutrophils/100 WBC (Bld) 72.3 % High 47-70 [facility] Neutrophil percentage 72.3 % High 47-70 [facility] No Panel InformationOrdered By: Jeffrey Kuhn on 09-12-2024 19 U/L 15-37 [facility] Nucleated red blood cell per centageOrdered By: Jeffrey Kuhn on 09-12-2024 Nucleated RBC/100 WBC (Bld) [Ratio] 0 % 0-5 [facility] Nucleated red blood cell percentage 0 % 0-5 [facility] Oncology Visit Reporton 08-26 Oncology Visit Report Normal [facility] Platelet countOrdered By: Shelby Kuhn on 09-12-2024 Platelets (Bld) [#/Vol] 213 10*3/uL 150-450 [facility] Platelet count 213 K/mm3 150-450 [facility] Potassium measurementOrdered By: Jeffrey Kuhn on 09-12-2024 Potassium [Moles/Vol] 4.2 mmol/L 3.5-5.1 [facility] Potassium measurement 4.2 mmol/L 3.5-5.1 [facility] RBC Auto (Bld) [#/Vol]Ordere d By: Jeffrey Kuhn on 09-12-2024 RBC (Bld) [#/Vol] 3.85 10*6/uL Low 4.6-6.2 [facility] Automated blood erythrocyte count 3.85 M/mm3 Low 4.6-6.2 [facility] Serum anion gap measurementO rdered By: Jeffrey Kuhn on 09-12-2024 Anion gap [Moles/Vol] 11 mmol/L 5-15 [facility] Serum anion gap measurement 11 5-15 [facility] Serum globulin measurementOr dered By: Jeffrey Kuhn on 09-12-2024 Globulin (S) [Mass/Vol] 4.7 g/dL High 2.2-4.2 [facility] Serum globulin measurement 4.7 g/dL High 2.2-4.2 [facility] Serum or plasma alanine magana otransferase (ALT) measurementOrdered By: Jeffrey Kuhn on 09-12-2024 ALT [Catalytic activity/Vol] 14 U/L Low 16-61 [facility] Serum or plasma albumin joshua urement (mass/volume)Ordered By: Jeffrey Kuhn on 09-12-2024 Albumin [Mass/Vol] 2.9 g/dL Low 3.2-5.0 [facility] Serum or plasma alkaline denise sphatase measurementOrdered By: Jeffrey Kuhn on 09-12-2024 ALP [Catalytic activity/Vol] 80 U/L 45-117 [facility] Serum or plasma calcium joshua urement (mass/volume)Ordered By: Jeffrey Kuhn on 09-12-2024 Calcium [Mass/Vol] 9.3 mg/dL 8.5-10.1 [facility] Serum or plasma creatinine m easurement (mass/volume)Ordered By: Jeffrey Kuhn on 09-12-2024 Creatinine [Mass/Vol] 4.50 mg/dL High 0.70-1.30 [facility] Comment on above: The validity of the calculated GFR & GFRAA in patients over 70 years has not been determined. Clinical correlation is essential. Serum or plasma urea nitroge n measurement (mass/volume)Ordered By: Jeffrey Kuhn on 09-12-2024 Urea nitrogen [Mass/Vol] 44 mg/dL High 02-09 [facility] Sodium levelOrdered By: Dariusz Kuhn on 09-12-2024 Sodium [Moles/Vol] 136 mmol/L 136-145 [facility] Sodium level 136 mmol/L 136-145 [facility] Total proteinOrdered By: Raheem Kuhn on 09-12-2024 Protein [Mass/Vol] 7.6 g/dL 6.4-8.2 [facility] Total protein 7.6 g/dL 6.4-8.2 [facility] Urea nitrogen [Mass/Vol]Orde red By: Jeffrey Kuhn on 09-12-2024 Serum or plasma urea nitrogen measurement (mass/volume) 44 mg/dL High 02-09 [facility] White blood cell (WBC) count Ordered By: Jeffrey Kuhn on 09-12-2024 WBC (Bld) [#/Vol] 7.9 10*3/uL 4.4-11.0 [facility] White blood cell (WBC) count 7.9 K/mm3 4.4-11.0 [facility] Cardiology Visit Reporton Cardiology Visit Report Normal [facility] Oncology Visit Reporton 07-27 Oncology Visit Report Normal [facility] ONC Echo, Limited Studyon ONC Echo, Limited Study Normal [facility] CBC W/Diff, Automatedon 06-25 Absolute Lymph 1.05 X10 3/uL Normal 0.83-4.51 [facility] Comment on above: Performed By: #### L 100.0100, L504.2610, L500.4050 ####[facility] [address] [place], [address] Absolute Neut 4.5 X10 3/uL Normal 2.0-7.7 [facility] Comment on above: Performed By: #### L 100.0100, L504.2610, L500.4050 ####[facility] [address] [place], [address] Basophils/100 WBC (Bld) 0.8 % Normal 0-1 [facility] Comment on above: Performed By: #### L 100.0100, L504.2610, L500.4050 ####[facility] [address] [place], [address] Eosinophils/100 WBC (Bld) 1.6 % Normal 0-5 [facility] Comment on above: Performed By: #### L 100.0100, L504.2610, L500.4050 ####[facility] [address] [place], [address] Erythrocyte distribution width (RBC) [Ratio] 13.7 % Normal 11.6-14.6 [facility] Comment on above: Performed By: #### L 100.0100, L504.2610, L500.4050 ####[facility] [address] [place], [address] Hematocrit (Bld) [Volume fraction] 36.2 % Low 40-54 [facility] Comment on above: Performed By: #### L 100.0100, L504.2610, L500.4050 ####[facility] [address] [place], [address] Hemoglobin (Bld) [Mass/Vol] 11.6 g/dL Low 13.0-16.5 [facility] Comment on above: Performed By: #### L 100.0100, L504.2610, L500.4050 ####[facility] [address] [place], [address] IG% 0.300 Normal 0.0-0.9 [facility] Comment on above: Result Comment: IG% - Immature Granulocytes (promyelocytes, myelocytes andmetamyelocytes) > 1% indicates that a LEFT SHIFT is Present. Performed By: #### L 100.0100, L504.2610, L500.4050 ####[facility] [address] [place], [address] Lymphocytes/100 WBC (Bld) 16.9 % Low 19-41 [facility] Comment on above: Performed By: #### L 100.0100, L504.2610, L500.4050 ####[facility] [address] [place], [address] MCH (RBC) [Entitic mass] 30.6 pg Normal 27.0-32.0 [facility] Comment on above: Performed By: #### L 100.0100, L504.2610, L500.4050 ####[facility] [address] [place], [address] MCHC (RBC) [Mass/Vol] 32.0 g/dL Normal 32-36 [facility] Comment on above: Performed By: #### L 100.0100, L504.2610, L500.4050 ####[facility] [address] [place], [address] MCV (RBC) [Entitic vol] 95.5 fL High 80-94 [facility] Comment on above: Performed By: #### L 100.0100, L504.2610, L500.4050 ####[facility] [address] [place], [address] Monocytes/100 WBC (Bld) 8.4 % Normal 0-10 [facility] Comment on above: Performed By: #### L 100.0100, L504.2610, L500.4050 ####[facility] [address] [place], [address] Neutrophils/100 WBC (Bld) 72.0 % High 47-70 [facility] Comment on above: Performed By: #### L 100.0100, L504.2610, L500.4050 ####[facility] [address] [place], [address] Nucleated RBC (Bld) [#/Vol] 0 10*3/uL Normal 0-5 [facility] Comment on above: Performed By: #### L 100.0100, L504.2610, L500.4050 ####[facility] [address] [place], [address] Platelet mean volume (Bld) [Entitic vol] 9.1 fL Normal 6.2-12.0 [facility] Comment on above: Performed By: #### L 100.0100, L504.2610, L500.4050 ####[facility] [address] [place], [address] Platelets (Bld) [#/Vol] 219 10*3/uL Normal 150-450 [facility] Comment on above: Performed By: #### L 100.0100, L504.2610, L500.4050 ####[facility] [address] [place], [address] RBC (Bld) [#/Vol] 3.79 10*6/uL Low 4.6-6.2 [facility] Comment on above: Performed By: #### L 100.0100, L504.2610, L500.4050 ####[facility] [address] [place], [address] RDW SD 48.0 fl High 35.1-43.9 [facility] Comment on above: Performed By: #### L 100.0100, L504.2610, L500.4050 ####[facility] [address] [place], [address] WBC (Bld) [#/Vol] 6.2 10*3/uL Normal 4.4-11.0 [facility] Comment on above: Performed By: #### L 100.0100, L504.2610, L500.4050 ####[facility] [address] [place], [address] Comprehensive Metabolic Prof ilon 07-13-2024 Albumin [Mass/Vol] 2.5 g/dL Low 3.2-5.0 [facility] Comment on above: Order Comment: 1 Performed By: #### L 100.0100, L504.2610, L500.4050 ####[facility] [address] [place], [address] Albumin/Globulin [Mass ratio] 0.5 {ratio} Low 0.9-2.4 [facility] Comment on above: Order Comment: 1 Performed By: #### L 100.0100, L504.2610, L500.4050 ####[facility] [address] [place], [address] ALK P 88 U/L Normal 45-117 [facility] Comment on above: Order Comment: 1 Performed By: #### L 100.0100, L504.2610, L500.4050 ####[facility] [address] [place], [address] ALT [Catalytic activity/Vol] 12 U/L Low 16-61 [facility] Comment on above: Order Comment: 1 Performed By: #### L 100.0100, L504.2610, L500.4050 ####[facility] [address] [place], [address] AST [Catalytic activity/Vol] 17 U/L Normal 15-37 [facility] Comment on above: Order Comment: 1 Performed By: #### L 100.0100, L504.2610, L500.4050 ####[facility] [address] [place], [address] Bilirubin [Mass/Vol] 0.80 mg/dL Normal 0.20-1.00 [facility] Comment on above: Order Comment: 1 Result Comment: For patients on eltrombopag therapy, use of Dimension [place] TBIL is not recommended. Performed By: #### L 100.0100, L504.2610, L500.4050 ####[facility] [address] [place], [address] BUN/CRE 10.0 RATIO Normal 10-20 [facility] Comment on above: Order Comment: 1 Performed By: #### L 100.0100, L504.2610, L500.4050 ####[facility] [address] [place], [address] CA,Total 9.4 mg/dL Normal 8.5-10.1 [facility] Comment on above: Order Comment: 1 Performed By: #### L 100.0100, L504.2610, L500.4050 ####[facility] [address] [place], [address] Chloride [Moles/Vol] 100 mmol/L Normal 98-107 [facility] Comment on above: Order Comment: 1 Performed By: #### L 100.0100, L504.2610, L500.4050 ####[facility] [address] [place], [address] CO2 [Moles/Vol] 33.0 mmol/L High 21.0-32.0 [facility] Comment on above: Order Comment: 1 Performed By: #### L 100.0100, L504.2610, L500.4050 ####[facility] [address] [place], [address] Creatinine [Mass/Vol] 3.19 mg/dL High 0.70-1.30 [facility] Comment on above: Order Comment: 1 Result Comment: The validity of the calculated GFR GFRAA in patients over70 years has not been determined. Clinical correlation isessential. Performed By: #### L 100.0100, L504.2610, L500.4050 ####[facility] [address] [place], [address] ECRCL 27.09 ml/min Normal [facility] Comment on above: Order Comment: 1 Performed By: #### L 100.0100, L504.2610, L500.4050 ####[facility] [address] [place], [address] EST GFR - AA 25 mL/min Low >60 [facility] Comment on above: Order Comment: 1 Result Comment: Afri can [place] GFR Calc Performed By: #### L 100.0100, L504.2610, L500.4050 ####[facility] [address] [place], [address] GAP 5 Normal 5-15 [facility] Comment on above: Order Comment: 1 Performed By: #### L 100.0100, L504.2610, L500.4050 ####[facility] [address] [place], [address] GFR/1.73 sq M.predicted among non-blacks MDRD (S/P/Bld) [Vol rate/Area] 21 mL/min/{1.73_m2} Low >60 [facility] Comment on above: Order Comment: 1 Result Comment: Non- GFR Calc Performed By: #### L 100.0100, L504.2610, L500.4050 ####[facility] [address] [place], [address] Globulin (S) [Mass/Vol] 4.6 g/dL High 2.2-4.2 [facility] Comment on above: Order Comment: 1 Performed By: #### L 100.0100, L504.2610, L500.4050 ####[facility] [address] [place], [address] Glucose [Mass/Vol] 125 mg/dL High 74-106 [facility] Comment on above: Order Comment: 1 Result Comment: Fast ing Glucose result from 100 to 125 mg/dLsuggests IMPAIRED HOMEOSTASIS per A.D.A. criteria. Performed By: #### L 100.0100, L504.2610, L500.4050 ####[facility] [address] [place], [address] Potassium [Moles/Vol] 4.2 mmol/L Normal 3.5-5.1 [facility] Comment on above: Order Comment: 1 Performed By: #### L 100.0100, L504.2610, L500.4050 ####[facility] [address] [place], [address] Sodium [Moles/Vol] 138 mmol/L Normal 136-145 [facility] Comment on above: Order Comment: 1 Performed By: #### L 100.0100, L504.2610, L500.4050 ####[facility] [address] [place], [address] T PROT 7.1 g/dL Normal 6.4-8.2 [facility] Comment on above: Order Comment: 1 Performed By: #### L 100.0100, L504.2610, L500.4050 ####[facility] [address] [place], [address] Urea nitrogen [Mass/Vol] 32 mg/dL High 7-18 [facility] Comment on above: Order Comment: 1 Performed By: #### L 100.0100, L504.2610, L500.4050 ####[facility] [address] [place], [address] LDHon 07-13-2024 LDH 190 U/L Normal 87-241 [facility] Comment on above: Order Comment: 1 Performed By: #### L 100.0100, L504.2610, L500.4050 ####[facility] [address] [place], [address] Oncology Visit Reporton 06-25 Oncology Visit Report Normal [facility] ONC Echo, Limited Studyon ONC Echo, Limited Study Normal [facility] CBC W/Diff, Automatedon 06-25 Absolute Lymph 1.44 X10 3/uL Normal 0.83-4.51 [facility] Comment on above: Performed By: #### L 506.0400, L504.2610, L500.4050, L501.9520, L100.0100 ####[facility] [address] [place], [address] Absolute Neut 6.4 X10 3/uL Normal 2.0-7.7 [facility] Comment on above: Performed By: #### L 506.0400, L504.2610, L500.4050, L501.9520, L100.0100 ####[facility] [address] [place], [address] Basophils/100 WBC (Bld) 0.7 % Normal 0-1 [facility] Comment on above: Performed By: #### L 506.0400, L504.2610, L500.4050, L501.9520, L100.0100 ####[facility] [address] [place], [address] Eosinophils/100 WBC (Bld) 1.1 % Normal 0-5 [facility] Comment on above: Performed By: #### L 506.0400, L504.2610, L500.4050, L501.9520, L100.0100 ####[facility] [address] [place], [address] Erythrocyte distribution width (RBC) [Ratio] 13.3 % Normal 11.6-14.6 [facility] Comment on above: Performed By: #### L 506.0400, L504.2610, L500.4050, L501.9520, L100.0100 ####[facility] [address] [place], [address] Hematocrit (Bld) [Volume fraction] 38.0 % Low 40-54 [facility] Comment on above: Performed By: #### L 506.0400, L504.2610, L500.4050, L501.9520, L100.0100 ####[facility] [address] [place], [address] Hemoglobin (Bld) [Mass/Vol] 12.7 g/dL Low 13.0-16.5 [facility] Comment on above: Performed By: #### L 506.0400, L504.2610, L500.4050, L501.9520, L100.0100 ####[facility] [address] [place], [address] IG% 0.300 Normal 0.0-0.9 [facility] Comment on above: Result Comment: IG% - Immature Granulocytes (promyelocytes, myelocytes andmetamyelocytes) > 1% indicates that a LEFT SHIFT is Present. Performed By: #### L 506.0400, L504.2610, L500.4050, L501.9520, L100.0100 ####[facility] [address] [place], [address] Lymphocytes/100 WBC (Bld) 16.4 % Low 19-41 [facility] Comment on above: Performed By: #### L 506.0400, L504.2610, L500.4050, L501.9520, L100.0100 ####[facility] [address] [place], [address] MCH (RBC) [Entitic mass] 30.8 pg Normal 27.0-32.0 [facility] Comment on above: Performed By: #### L 506.0400, L504.2610, L500.4050, L501.9520, L100.0100 ####[facility] [address] [place], [address] MCHC (RBC) [Mass/Vol] 33.4 g/dL Normal 32-36 [facility] Comment on above: Performed By: #### L 506.0400, L504.2610, L500.4050, L501.9520, L100.0100 ####[facility] [address] [place], [address] MCV (RBC) [Entitic vol] 92.2 fL Normal 80-94 [facility] Comment on above: Performed By: #### L 506.0400, L504.2610, L500.4050, L501.9520, L100.0100 ####[facility] [address] [place], [address] Monocytes/100 WBC (Bld) 8.9 % Normal 0-10 [facility] Comment on above: Performed By: #### L 506.0400, L504.2610, L500.4050, L501.9520, L100.0100 ####[facility] [address] [place], [address] Neutrophils/100 WBC (Bld) 72.6 % High 47-70 [facility] Comment on above: Performed By: #### L 506.0400, L504.2610, L500.4050, L501.9520, L100.0100 ####[facility] [address] [place], [address] Nucleated RBC (Bld) [#/Vol] 0 10*3/uL Normal 0-5 [facility] Comment on above: Performed By: #### L 506.0400, L504.2610, L500.4050, L501.9520, L100.0100 ####[facility] [address] [place], [address] Platelet mean volume (Bld) [Entitic vol] 9.4 fL Normal 6.2-12.0 [facility] Comment on above: Performed By: #### L 506.0400, L504.2610, L500.4050, L501.9520, L100.0100 ####[facility] [address] [place], [address] Platelets (Bld) [#/Vol] 268 10*3/uL Normal 150-450 [facility] Comment on above: Performed By: #### L 506.0400, L504.2610, L500.4050, L501.9520, L100.0100 ####[facility] [address] [place], [address] RBC (Bld) [#/Vol] 4.12 10*6/uL Low 4.6-6.2 [facility] Comment on above: Performed By: #### L 506.0400, L504.2610, L500.4050, L501.9520, L100.0100 ####[facility] [address] [place], [address] RDW SD 45.1 fl High 35.1-43.9 [facility] Comment on above: Performed By: #### L 506.0400, L504.2610, L500.4050, L501.9520, L100.0100 ####[facility] [address] [place], [address] WBC (Bld) [#/Vol] 8.8 10*3/uL Normal 4.4-11.0 [facility] Comment on above: Performed By: #### L 506.0400, L504.2610, L500.4050, L501.9520, L100.0100 ####[facility] [address] [place], [address] Comprehensive Metabolic Prof ilon 07-04-2024 Albumin [Mass/Vol] 2.6 g/dL Low 3.2-5.0 [facility] Comment on above: Order Comment: 1 Performed By: #### L 506.0400, L504.2610, L500.4050, L501.9520, L100.0100 ####[facility] [address] [place], [address] Albumin/Globulin [Mass ratio] 0.6 {ratio} Low 0.9-2.4 [facility] Comment on above: Order Comment: 1 Performed By: #### L 506.0400, L504.2610, L500.4050, L501.9520, L100.0100 ####[facility] [address] [place], [address] ALK P 93 U/L Normal 45-117 [facility] Comment on above: Order Comment: 1 Performed By: #### L 506.0400, L504.2610, L500.4050, L501.9520, L100.0100 ####[facility] [address] [place], [address] ALT [Catalytic activity/Vol] 18 U/L Normal 16-61 [facility] Comment on above: Order Comment: 1 Performed By: #### L 506.0400, L504.2610, L500.4050, L501.9520, L100.0100 ####[facility] [address] [place], [address] AST [Catalytic activity/Vol] 19 U/L Normal 15-37 [facility] Comment on above: Order Comment: 1 Performed By: #### L 506.0400, L504.2610, L500.4050, L501.9520, L100.0100 ####[facility] [address] [place], [address] Bilirubin [Mass/Vol] 1.00 mg/dL Normal 0.20-1.00 [facility] Comment on above: Order Comment: 1 Result Comment: For patients on eltrombopag therapy, use of Dimension [place] TBIL is not recommended. Performed By: #### L 506.0400, L504.2610, L500.4050, L501.9520, L100.0100 ####[facility] [address] [place], [address] BUN/CRE 11.2 RATIO Normal 10-20 [facility] Comment on above: Order Comment: 1 Performed By: #### L 506.0400, L504.2610, L500.4050, L501.9520, L100.0100 ####[facility] [address] [place], [address] CA,Total 9.2 mg/dL Normal 8.5-10.1 [facility] Comment on above: Order Comment: 1 Performed By: #### L 506.0400, L504.2610, L500.4050, L501.9520, L100.0100 ####[facility] [address] [place], [address] Chloride [Moles/Vol] 100 mmol/L Normal 98-107 [facility] Comment on above: Order Comment: 1 Performed By: #### L 506.0400, L504.2610, L500.4050, L501.9520, L100.0100 ####[facility] [address] [place], [address] CO2 [Moles/Vol] 27.0 mmol/L Normal 21.0-32.0 [facility] Comment on above: Order Comment: 1 Performed By: #### L 506.0400, L504.2610, L500.4050, L501.9520, L100.0100 ####[facility] [address] [place], [address] Creatinine [Mass/Vol] 3.29 mg/dL High 0.70-1.30 [facility] Comment on above: Order Comment: 1 Result Comment: The validity of the calculated GFR GFRAA in patients over70 years has not been determined. Clinical correlation isessential. Performed By: #### L 506.0400, L504.2610, L500.4050, L501.9520, L100.0100 ####[facility] [address] [place], [address] ECRCL 26.26 ml/min Normal [facility] Comment on above: Order Comment: 1 Performed By: #### L 506.0400, L504.2610, L500.4050, L501.9520, L100.0100 ####[facility] [address] [place], [address] EST GFR - AA 24 mL/min Low >60 [facility] Comment on above: Order Comment: 1 Result Comment: Afri can [place] GFR Calc Performed By: #### L 506.0400, L504.2610, L500.4050, L501.9520, L100.0100 ####[facility] [address] [place], [address] GAP 9 Normal 5-15 [facility] Comment on above: Order Comment: 1 Performed By: #### L 506.0400, L504.2610, L500.4050, L501.9520, L100.0100 ####[facility] [address] [place], [address] GFR/1.73 sq M.predicted among non-blacks MDRD (S/P/Bld) [Vol rate/Area] 20 mL/min/{1.73_m2} Low >60 [facility] Comment on above: Order Comment: 1 Result Comment: Non- GFR Calc Performed By: #### L 506.0400, L504.2610, L500.4050, L501.9520, L100.0100 ####[facility] [address] [place], [address] Globulin (S) [Mass/Vol] 4.4 g/dL High 2.2-4.2 [facility] Comment on above: Order Comment: 1 Performed By: #### L 506.0400, L504.2610, L500.4050, L501.9520, L100.0100 ####[facility] [address] [place], [address] Glucose [Mass/Vol] 184 mg/dL High 74-106 [facility] Comment on above: Order Comment: 1 Result Comment: Fast ing Glucose result greater than or equal to 126 mg/dLsuggests DIABETES MELLITUS per A.D.A. criteria. Performed By: #### L 506.0400, L504.2610, L500.4050, L501.9520, L100.0100 ####[facility] [address] [place], [address] Potassium [Moles/Vol] 3.7 mmol/L Normal 3.5-5.1 [facility] Comment on above: Order Comment: 1 Performed By: #### L 506.0400, L504.2610, L500.4050, L501.9520, L100.0100 ####[facility] [address] [place], [address] Sodium [Moles/Vol] 136 mmol/L Normal 136-145 [facility] Comment on above: Order Comment: 1 Performed By: #### L 506.0400, L504.2610, L500.4050, L501.9520, L100.0100 ####[facility] [address] [place], [address] T PROT 7.0 g/dL Normal 6.4-8.2 [facility] Comment on above: Order Comment: 1 Performed By: #### L 506.0400, L504.2610, L500.4050, L501.9520, L100.0100 ####[facility] [address] [place], [address] Urea nitrogen [Mass/Vol] 37 mg/dL High 7-18 [facility] Comment on above: Order Comment: 1 Performed By: #### L 506.0400, L504.2610, L500.4050, L501.9520, L100.0100 ####[facility] [address] [place], [address] Direct serum free thyroxine (FT4) measurementOrdered By: Jeffrey Kuhn on 07-04-2024 Free T4 [Mass/Vol] 1.46 ng/dL 0.76-1.46 [facility] Direct serum free thyroxine (FT4) measurement 1.46 ng/dL 0.76-1.46 [facility] LDHon 07-04-2024 LDH 221 U/L Normal 87-241 [facility] Comment on above: Order Comment: 1 Performed By: #### L 506.0400, L504.2610, L500.4050, L501.9520, L100.0100 ####[facility] [address] [place], [address] Oncology Visit Reporton 06-25 Oncology Visit Report Normal [facility] Serum or plasma thyroid stim ulating hormone (TSH) measurement (units/volume)Ordered By: Jeffrey Kuhn on 07-04-2024 TSH Qn 8.420 uIU/mL High 0.358-3.740 [facility] T4 Free Directon 07-04-2024 T4 FREE DIRECT 1.46 ng/dL Normal 0.76-1.46 [facility] Comment on above: Order Comment: 1 Performed By: #### L 506.0400, L504.2610, L500.4050, L501.9520, L100.0100 ####[facility] [address] [place], [address] TSH QnOrdered By: Jeffrey natarajan on 07-04-2024 Thyroid Stimulating Hormone (TSH) 8.420 uIU/mL High 0.358-3.740 [facility] Serum or plasma thyroid stimulating hormone (TSH) measurement (units/volume) 8.420 uIU/mL High 0.358-3.740 [facility] Thyroid Stim Hormone (TSH)on 07-04-2024 TSH 8.420 uIU/mL High 0.358-3.740 [facility] Comment on above: Order Comment: 1 Performed By: #### L 506.0400, L504.2610, L500.4050, L501.9520, L100.0100 ####[facility] [address] [place], [address] CBC W/Diff, Automatedon 05-26 Absolute Lymph 1.10 X10 3/uL Normal 0.83-4.51 [facility] Comment on above: Performed By: #### L 501.9520, L500.4050, L506.0400, L504.2610, L100.0100 ####[facility] [address] [place], [address] Absolute Neut 4.6 X10 3/uL Normal 2.0-7.7 [facility] Comment on above: Performed By: #### L 501.9520, L500.4050, L506.0400, L504.2610, L100.0100 ####[facility] [address] [place], [address] Basophils/100 WBC (Bld) 0.9 % Normal 0-1 [facility] Comment on above: Performed By: #### L 501.9520, L500.4050, L506.0400, L504.2610, L100.0100 ####[facility] [address] [place], [address] Eosinophils/100 WBC (Bld) 2.2 % Normal 0-5 [facility] Comment on above: Performed By: #### L 501.9520, L500.4050, L506.0400, L504.2610, L100.0100 ####[facility] [address] [place], [address] Erythrocyte distribution width (RBC) [Ratio] 13.9 % Normal 11.6-14.6 [facility] Comment on above: Performed By: #### L 501.9520, L500.4050, L506.0400, L504.2610, L100.0100 ####[facility] [address] [place], [address] Hematocrit (Bld) [Volume fraction] 35.7 % Low 40-54 [facility] Comment on above: Performed By: #### L 501.9520, L500.4050, L506.0400, L504.2610, L100.0100 ####[facility] [address] [place], [address] Hemoglobin (Bld) [Mass/Vol] 11.7 g/dL Low 13.0-16.5 [facility] Comment on above: Performed By: #### L 501.9520, L500.4050, L506.0400, L504.2610, L100.0100 ####[facility] [address] [place], [address] IG% 0.300 Normal 0.0-0.9 [facility] Comment on above: Result Comment: IG% - Immature Granulocytes (promyelocytes, myelocytes andmetamyelocytes) > 1% indicates that a LEFT SHIFT is Present. Performed By: #### L 501.9520, L500.4050, L506.0400, L504.2610, L100.0100 ####[facility] [address] [place], [address] Lymphocytes/100 WBC (Bld) 16.9 % Low 19-41 [facility] Comment on above: Performed By: #### L 501.9520, L500.4050, L506.0400, L504.2610, L100.0100 ####[facility] [address] [place], [address] MCH (RBC) [Entitic mass] 30.3 pg Normal 27.0-32.0 [facility] Comment on above: Performed By: #### L 501.9520, L500.4050, L506.0400, L504.2610, L100.0100 ####[facility] [address] [place], [address] MCHC (RBC) [Mass/Vol] 32.8 g/dL Normal 32-36 [facility] Comment on above: Performed By: #### L 501.9520, L500.4050, L506.0400, L504.2610, L100.0100 ####[facility] [address] [place], [address] MCV (RBC) [Entitic vol] 92.5 fL Normal 80-94 [facility] Comment on above: Performed By: #### L 501.9520, L500.4050, L506.0400, L504.2610, L100.0100 ####[facility] [address] [place], [address] Monocytes/100 WBC (Bld) 8.8 % Normal 0-10 [facility] Comment on above: Performed By: #### L 501.9520, L500.4050, L506.0400, L504.2610, L100.0100 ####[facility] [address] [place], [address] Neutrophils/100 WBC (Bld) 70.9 % High 47-70 [facility] Comment on above: Performed By: #### L 501.9520, L500.4050, L506.0400, L504.2610, L100.0100 ####[facility] [address] [place], [address] Nucleated RBC (Bld) [#/Vol] 0 10*3/uL Normal 0-5 [facility] Comment on above: Performed By: #### L 501.9520, L500.4050, L506.0400, L504.2610, L100.0100 ####[facility] [address] [place], [address] Platelet mean volume (Bld) [Entitic vol] 10.1 fL Normal 6.2-12.0 [facility] Comment on above: Performed By: #### L 501.9520, L500.4050, L506.0400, L504.2610, L100.0100 ####[facility] [address] [place], [address] Platelets (Bld) [#/Vol] 183 10*3/uL Normal 150-450 [facility] Comment on above: Performed By: #### L 501.9520, L500.4050, L506.0400, L504.2610, L100.0100 ####[facility] [address] [place], [address] RBC (Bld) [#/Vol] 3.86 10*6/uL Low 4.6-6.2 [facility] Comment on above: Performed By: #### L 501.9520, L500.4050, L506.0400, L504.2610, L100.0100 ####[facility] [address] [place], [address] RDW SD 46.7 fl High 35.1-43.9 [facility] Comment on above: Performed By: #### L 501.9520, L500.4050, L506.0400, L504.2610, L100.0100 ####[facility] [address] [place], [address] WBC (Bld) [#/Vol] 6.5 10*3/uL Normal 4.4-11.0 [facility] Comment on above: Performed By: #### L 501.9520, L500.4050, L506.0400, L504.2610, L100.0100 ####[facility] [address] [place], [address] Comprehensive Metabolic Prof ilon 06-07-2024 Albumin [Mass/Vol] 3.4 g/dL Normal 3.2-5.0 [facility] Comment on above: Order Comment: 1 Performed By: #### L 501.9520, L500.4050, L506.0400, L504.2610, L100.0100 ####[facility] [address] [place], [address] Albumin/Globulin [Mass ratio] 0.8 {ratio} Low 0.9-2.4 [facility] Comment on above: Order Comment: 1 Performed By: #### L 501.9520, L500.4050, L506.0400, L504.2610, L100.0100 ####[facility] [address] [place], [address] ALK P 103 U/L Normal 45-117 [facility] Comment on above: Order Comment: 1 Performed By: #### L 501.9520, L500.4050, L506.0400, L504.2610, L100.0100 ####[facility] [address] [place], [address] ALT [Catalytic activity/Vol] 15 U/L Low 16-61 [facility] Comment on above: Order Comment: 1 Performed By: #### L 501.9520, L500.4050, L506.0400, L504.2610, L100.0100 ####[facility] [address] [place], [address] AST [Catalytic activity/Vol] 15 U/L Normal 15-37 [facility] Comment on above: Order Comment: 1 Performed By: #### L 501.9520, L500.4050, L506.0400, L504.2610, L100.0100 ####[facility] [address] [place], [address] Bilirubin [Mass/Vol] 1.00 mg/dL Normal 0.20-1.00 [facility] Comment on above: Order Comment: 1 Result Comment: For patients on eltrombopag therapy, use of Dimension [place] TBIL is not recommended. Performed By: #### L 501.9520, L500.4050, L506.0400, L504.2610, L100.0100 ####[facility] [address] [place], [address] BUN/CRE 16.2 RATIO Normal 10-20 [facility] Comment on above: Order Comment: 1 Performed By: #### L 501.9520, L500.4050, L506.0400, L504.2610, L100.0100 ####[facility] [address] [place], [address] CA,Total 9.0 mg/dL Normal 8.5-10.1 [facility] Comment on above: Order Comment: 1 Performed By: #### L 501.9520, L500.4050, L506.0400, L504.2610, L100.0100 ####[facility] [address] [place], [address] Chloride [Moles/Vol] 105 mmol/L Normal 98-107 [facility] Comment on above: Order Comment: 1 Performed By: #### L 501.9520, L500.4050, L506.0400, L504.2610, L100.0100 ####[facility] [address] [place], [address] CO2 [Moles/Vol] 24.0 mmol/L Normal 21.0-32.0 [facility] Comment on above: Order Comment: 1 Performed By: #### L 501.9520, L500.4050, L506.0400, L504.2610, L100.0100 ####[facility] [address] [place], [address] Creatinine [Mass/Vol] 3.45 mg/dL High 0.70-1.30 [facility] Comment on above: Order Comment: 1 Result Comment: The validity of the calculated GFR GFRAA in patients over70 years has not been determined. Clinical correlation isessential. Performed By: #### L 501.9520, L500.4050, L506.0400, L504.2610, L100.0100 ####[facility] [address] [place], [address] ECRCL 25.66 ml/min Normal [facility] Comment on above: Order Comment: 1 Performed By: #### L 501.9520, L500.4050, L506.0400, L504.2610, L100.0100 ####[facility] [address] [place], [address] EST GFR - AA 23 mL/min Low >60 [facility] Comment on above: Order Comment: 1 Result Comment: Afri can [place] GFR Calc Performed By: #### L 501.9520, L500.4050, L506.0400, L504.2610, L100.0100 ####[facility] [address] [place], [address] GAP 9 Normal 5-15 [facility] Comment on above: Order Comment: 1 Performed By: #### L 501.9520, L500.4050, L506.0400, L504.2610, L100.0100 ####[facility] [address] [place], [address] GFR/1.73 sq M.predicted among non-blacks MDRD (S/P/Bld) [Vol rate/Area] 19 mL/min/{1.73_m2} Low >60 [facility] Comment on above: Order Comment: 1 Result Comment: Non- GFR Calc Performed By: #### L 501.9520, L500.4050, L506.0400, L504.2610, L100.0100 ####[facility] [address] [place], [address] Globulin (S) [Mass/Vol] 4.2 g/dL Normal 2.2-4.2 [facility] Comment on above: Order Comment: 1 Performed By: #### L 501.9520, L500.4050, L506.0400, L504.2610, L100.0100 ####[facility] [address] [place], [address] Glucose [Mass/Vol] 253 mg/dL High 74-106 [facility] Comment on above: Order Comment: 1 Result Comment: Gluc ose result greater than or equal to 200 mg/dLsuggests DIABETES MELLITUS per A.D.A. criteria. Performed By: #### L 501.9520, L500.4050, L506.0400, L504.2610, L100.0100 ####[facility] [address] [place], [address] Potassium [Moles/Vol] 4.5 mmol/L Normal 3.5-5.1 [facility] Comment on above: Order Comment: 1 Performed By: #### L 501.9520, L500.4050, L506.0400, L504.2610, L100.0100 ####[facility] [address] [place], [address] Sodium [Moles/Vol] 138 mmol/L Normal 136-145 [facility] Comment on above: Order Comment: 1 Performed By: #### L 501.9520, L500.4050, L506.0400, L504.2610, L100.0100 ####[facility] [address] [place], [address] T PROT 7.6 g/dL Normal 6.4-8.2 [facility] Comment on above: Order Comment: 1 Performed By: #### L 501.9520, L500.4050, L506.0400, L504.2610, L100.0100 ####[facility] [address] [place], [address] Urea nitrogen [Mass/Vol] 56 mg/dL High 7-18 [facility] Comment on above: Order Comment: 1 Performed By: #### L 501.9520, L500.4050, L506.0400, L504.2610, L100.0100 ####[facility] [address] [place], [address] LDHon 06-07-2024 LDH 197 U/L Normal 87-241 [facility] Comment on above: Order Comment: 1 Performed By: #### L 501.9520, L500.4050, L506.0400, L504.2610, L100.0100 ####[facility] [address] [place], [address] Oncology Visit Reporton 05-26 Oncology Visit Report Normal [facility] T4 Free Directon 06-07-2024 T4 FREE DIRECT 1.07 ng/dL Normal 0.76-1.46 [facility] Comment on above: Order Comment: 1 Performed By: #### L 501.9520, L500.4050, L506.0400, L504.2610, L100.0100 ####[facility] [address] [place], [address] Thyroid Stim Hormone (TSH)on 06-07-2024 TSH 9.320 uIU/mL High 0.358-3.740 [facility] Comment on above: Order Comment: 1 Performed By: #### L 501.9520, L500.4050, L506.0400, L504.2610, L100.0100 ####[facility] [address] [place], [address] CBC W/Diff, Automatedon 10 Absolute Lymph 1.12 X10 3/uL Normal 0.83-4.51 [facility] Comment on above: Performed By: #### L 100.0100, L500.4050, L504.2610 ####[facility] [address] [place], [address] Absolute Neut 4.7 X10 3/uL Normal 2.0-7.7 [facility] Comment on above: Performed By: #### L 100.0100, L500.4050, L504.2610 ####[facility] [address] [place], [address] Basophils/100 WBC (Bld) 0.8 % Normal 0-1 [facility] Comment on above: Performed By: #### L 100.0100, L500.4050, L504.2610 ####[facility] [address] [place], [address] Eosinophils/100 WBC (Bld) 1.2 % Normal 0-5 [facility] Comment on above: Performed By: #### L 100.0100, L500.4050, L504.2610 ####[facility] [address] [place], [address] Erythrocyte distribution width (RBC) [Ratio] 14.3 % Normal 11.6-14.6 [facility] Comment on above: Performed By: #### L 100.0100, L500.4050, L504.2610 ####[facility] [address] [place], [address] Hematocrit (Bld) [Volume fraction] 36.7 % Low 40-54 [facility] Comment on above: Performed By: #### L 100.0100, L500.4050, L504.2610 ####[facility] [address] [place], [address] Hemoglobin (Bld) [Mass/Vol] 12.1 g/dL Low 13.0-16.5 [facility] Comment on above: Performed By: #### L 100.0100, L500.4050, L504.2610 ####[facility] [address] [place], [address] IG% 0.500 Normal 0.0-0.9 [facility] Comment on above: Result Comment: IG% - Immature Granulocytes (promyelocytes, myelocytes andmetamyelocytes) > 1% indicates that a LEFT SHIFT is Present. Performed By: #### L 100.0100, L500.4050, L504.2610 ####[facility] [address] [place], [address] Lymphocytes/100 WBC (Bld) 17.1 % Low 19-41 [facility] Comment on above: Performed By: #### L 100.0100, L500.4050, L504.2610 ####[facility] [address] [place], [address] MCH (RBC) [Entitic mass] 30.9 pg Normal 27.0-32.0 [facility] Comment on above: Performed By: #### L 100.0100, L500.4050, L504.2610 ####[facility] [address] [place], [address] MCHC (RBC) [Mass/Vol] 33.0 g/dL Normal 32-36 [facility] Comment on above: Performed By: #### L 100.0100, L500.4050, L504.2610 ####[facility] [address] [place], [address] MCV (RBC) [Entitic vol] 93.6 fL Normal 80-94 [facility] Comment on above: Performed By: #### L 100.0100, L500.4050, L504.2610 ####[facility] [address] [place], [address] Monocytes/100 WBC (Bld) 9.2 % Normal 0-10 [facility] Comment on above: Performed By: #### L 100.0100, L500.4050, L504.2610 ####[facility] [address] [place], [address] Neutrophils/100 WBC (Bld) 71.2 % High 47-70 [facility] Comment on above: Performed By: #### L 100.0100, L500.4050, L504.2610 ####[facility] [address] [place], [address] Nucleated RBC (Bld) [#/Vol] 0 10*3/uL Normal 0-5 [facility] Comment on above: Performed By: #### L 100.0100, L500.4050, L504.2610 ####[facility] [address] [place], [address] Platelet mean volume (Bld) [Entitic vol] 9.8 fL Normal 6.2-12.0 [facility] Comment on above: Performed By: #### L 100.0100, L500.4050, L504.2610 ####[facility] [address] [place], [address] Platelets (Bld) [#/Vol] 176 10*3/uL Normal 150-450 [facility] Comment on above: Performed By: #### L 100.0100, L500.4050, L504.2610 ####[facility] [address] [place], [address] RBC (Bld) [#/Vol] 3.92 10*6/uL Low 4.6-6.2 [facility] Comment on above: Performed By: #### L 100.0100, L500.4050, L504.2610 ####[facility] [address] [place], [address] RDW SD 48.4 fl High 35.1-43.9 [facility] Comment on above: Performed By: #### L 100.0100, L500.4050, L504.2610 ####[facility] [address] [place], [address] WBC (Bld) [#/Vol] 6.5 10*3/uL Normal 4.4-11.0 [facility] Comment on above: Performed By: #### L 100.0100, L500.4050, [id number] ####[facility] [address] [place], [address] Comprehensive Metabolic Prof [facility] 05-09-2024 Albumin [Mass/Vol] 3.4 g/dL Normal 3.2-5.0 [facility] Comment on above: Order Comment: 1 Performed By: #### L 100.0100, L500.4050, [id number] ####[facility] [address] [place], [address] Albumin/Globulin [Mass ratio] 0.8 {ratio} Low 0.9-2.4 [facility] Comment on above: Order Comment: 1 Performed By: #### L 100.0100, L500.4050, [id number] ####[facility] [address] [place], [address] ALK P 111 U/L Normal 45-117 [facility] Comment on above: Order Comment: 1 Performed By: #### L 100.0100, L500.4050, [id number] ####[facility] [address] [place], [address] ALT [Catalytic activity/Vol] 14 U/L Low 16-61 [facility] Comment on above: Order Comment: 1 Performed By: #### L 100.0100, L500.4050, [id number] ####[facility] [address] [place], [address] AST [Catalytic activity/Vol] 12 U/L Low 15-37 [facility] Comment on above: Order Comment: 1 Performed By: #### L 100.0100, L500.4050, [id number] ####[facility] [address] [place], [address] Bilirubin [Mass/Vol] 1.30 mg/dL High 0.20-1.00 [facility] Comment on above: Order Comment: 1 Result Comment: For patients on eltrombopag therapy, use of [employer] [place] TBIL is not recommended. Performed By: #### L 100.0100, L500.4050, L504.2610 ####[facility] [address] [place], [address] BUN/CRE 13.2 RATIO Normal 10-20 [facility] Comment on above: Order Comment: 1 Performed By: #### L 100.0100, L500.4050, [id number] ####[facility] [address] [place], [address] CA,Total 9.0 mg/dL Normal 8.5-10.1 [facility] Comment on above: Order Comment: 1 Performed By: #### L 100.0100, L500.4050, [id number] ####[facility] [address] [place], [address] Chloride [Moles/Vol] 100 mmol/L Normal 98-107 [facility] Comment on above: Order Comment: 1 Performed By: #### L 100.0100, L500.4050, [id number] ####[facility] [address] [place], [address] CO2 [Moles/Vol] 28.0 mmol/L Normal 21.0-32.0 [facility] Comment on above: Order Comment: 1 Performed By: #### L 100.0100, L500.4050, [id number] ####[facility] [address] [place], [address] Creatinine [Mass/Vol] 3.18 mg/dL High 0.70-1.30 [facility] Comment on above: Order Comment: 1 Result Comment: The validity of the calculated GFR GFRAA in patients over70 years has not been determined. Clinical correlation isessential. Performed By: #### L 100.0100, L500.4050, L504.2610 ####[facility] [address] [place], [address] ECRCL 28.30 ml/min Normal [facility] Comment on above: Order Comment: 1 Performed By: #### L 100.0100, L500.4050, [id number] ####[facility] [address] [place], [address] EST GFR - AA 25 mL/min Low >60 [facility] Comment on above: Order Comment: 1 Result Comment: Afri can [place] GFR Calc Performed By: #### L 100.0100, L500.4050, [id number] ####[facility] [address] [place], [address] GAP 8 Normal 5-15 [facility] Comment on above: Order Comment: 1 Performed By: #### L 100.0100, L500.4050, [id number] ####[facility] [address] [place], [address] GFR/1.73 sq M.predicted among non-blacks MDRD (S/P/Bld) [Vol rate/Area] 21 mL/min/{1.73_m2} Low >60 [facility] Comment on above: Order Comment: 1 Result Comment: Non- GFR Calc Performed By: #### L 100.0100, L500.4050, [id number] ####[facility] [address] [place], [address] Globulin (S) [Mass/Vol] 4.0 g/dL Normal 2.2-4.2 [facility] Comment on above: Order Comment: 1 Performed By: #### L 100.0100, L500.4050, [id number] ####[facility] [address] [place], [address] Glucose [Mass/Vol] 415 mg/dL High 74-106 [facility] Comment on above: Order Comment: 1 Result Comment: Gluc ose result greater than or equal to 200 mg/dLsuggests DIABETES MELLITUS per A.D.A. criteria. Performed By: #### L 100.0100, L500.4050, [id number] ####[facility] [address] [place], [address] Potassium [Moles/Vol] 3.9 mmol/L Normal 3.5-5.1 [facility] Comment on above: Order Comment: 1 Performed By: #### L 100.0100, L500.4050, [id number] ####[facility] [address] [place], [address] Sodium [Moles/Vol] 136 mmol/L Normal 136-145 [facility] Comment on above: Order Comment: 1 Performed By: #### L 100.0100, L500.4050, [id number] ####[facility] [address] [place], [address] T PROT 7.4 g/dL Normal 6.4-8.2 [facility] Comment on above: Order Comment: 1 Performed By: #### L 100.0100, L500.4050, [id number] ####[facility] [address] [place], [address] Urea nitrogen [Mass/Vol] 42 mg/dL High 7-18 [facility] Comment on above: Order Comment: 1 Performed By: #### L 100.0100, L500.4050, [id number] ####[facility] [address] [place], [address] LDHon 05-09-2024 LDH 193 U/L Normal 87-241 [facility] Comment on above: Order Comment: 1 Performed By: #### L 100.0100, L500.4050, [id number] ####[facility] [address] [place], [address] Oncology Visit Reporton 04-25 Oncology Visit Report Normal [facility] CT Chest, Abd, Pelvis WO Con ton 04-17-2024 CT Chest, Abd, Pelvis WO Cont Normal [facility] Basophil percentageOrdered B y: Sam Del Toro on 10-29-2023 Cholesterol [Mass/Vol] 141 mg/dL <200 [facility] Comment on above: <200 mg/dL Desirable 200-240 mg/dL Borderline >240 mg/dL High Risk Triglyceride [Mass/Vol] 181 mg/dL <199 [facility] Comment on above: The drugs N-Acetylcy steine and Metamizole may falsely depress this assay.Serum Triglycerides Reference Interval Normal <150 mg/dL Borderline high 150 - 199 mg/dL High 200 - 499 mg/dL Very High > or = 500 mg/dL Laboratory - Chemistry and C hemistry - challengeOrdered By: Sam Del Toro on 10-29-2023 Cholesterol in HDL [Mass/Vol] 31 mg/dL >40 [facility] Comment on above: The drugs N-Acetylcy steine and Metamizole may falsely depress this assay. Reference Range HDL <40 mg/dL Low HDL Cholesterol HDL >or= 60 mg/dL High HDL Cholesterol Cholesterol in LDL [Mass/Vol] 74 mg/dL 0-130 [facility] No Panel InformationOrdered By: Sam Del Toro on 10-29-2023 VLDL Cholesterol 36 mg/dL 5-40 [facility] Serum or plasma thyroid stim ulating hormone (TSH) measurement (units/volume)Ordered By: Sam Del Toro on 10-29-2023 TSH Qn 1.47 uIU/mL 0.358-3.74 [facility] Whole blood hemoglobin A1c/t otal hemoglobin ratio (mass fraction)Ordered By: Sam Del Toro on 10-29-2023 HbA1c (Bld) [Mass fraction] 7.5 % 3.8-5.6 [facility] Comment on above: Normal < 5.7 % Predi abetic 5.7 - 6.4 % Diabetic >or= 6.5 % Please note range changes. Absolute lymphocyte countOrd ered By: Jeffrey Kuhn on 09-28-2023 Lymphocytes Auto (Unsp spec) [#/Vol] 1.34 10*3/uL 0.83-4.51 [facility] Automated lymphocyte count a s percentage of total leukocytesOrdered By: Jeffrey Kuhn on 09-28-2023 Lymphocytes/100 WBC Auto (Unsp spec) 17.6 % 19-41 [facility] Basophil percentageOrdered B y: Jeffrey Kuhn on 09-28-2023 Basophils/100 WBC (Bld) 0.9 % 0-1 [facility] Bilirubin [Mass/Vol] 1.00 mg/dL 0.20-1.00 [facility] Comment on above: For patients on eltr ombopag therapy, use of [employer] [place] TBIL is not recommended. Chloride [Moles/Vol] 96 mmol/L 98-107 [facility] Eosinophils/100 WBC (Bld) 1.8 % 0-5 [facility] Glucose [Mass/Vol] 151 mg/dL 74-106 [facility] Comment on above: Fasting Glucose resu lt greater than or equal to 126 mg/dL suggests DIABETES MELLITUS per A.D.A. criteria. Hemoglobin (Bld) [Mass/Vol] 12.0 g/dL 13.0-16.5 [facility] LDH [Catalytic activity/Vol] 155 U/L 87-241 [facility] Monocytes/100 WBC (Bld) 9.8 % 0-10 [facility] Neutrophils (Bld) [#/Vol] 5.3 10*3/uL 2.0-7.7 [facility] Neutrophils/100 WBC (Bld) 69.6 % 47-70 [facility] Potassium [Moles/Vol] 4.0 mmol/L 3.5-5.1 [facility] Protein [Mass/Vol] 7.6 g/dL 6.4-8.2 [facility] Sodium [Moles/Vol] 133 mmol/L 136-145 [facility] WBC (Bld) [#/Vol] 7.6 10*3/uL 4.4-11.0 [facility] Determination of erythrocyte mean corpuscular volume (MCV)Ordered By: Jeffrey Kuhn on 09-28-2023 MCV (RBC) [Entitic vol] 92.5 fL 80-94 [facility] Erythrocyte distribution wid th ratioOrdered By: Jeffrey Kuhn on 09-28-2023 Erythrocyte distribution width (RBC) [Ratio] 13.3 % 11.6-14.6 [facility] Erythrocyte distribution wid th standard deviationOrdered By: Jeffrey Kuhn on 09-28-2023 Erythrocyte distribution width (RBC) [Entitic vol] 45.1 fL 35.1-43.9 [facility] Hematocrit Auto (Bld) [Volum e fraction]Ordered By: Jeffrey Kuhn on 09-28-2023 Hematocrit (Bld) [Volume fraction] 35.8 % 40-54 [facility] Immature granulocytes/100 WB C Auto (Bld)Ordered By: Jeffrey Kuhn on 09-28-2023 Immature granulocytes/100 WBC (Bld) 0.300 % 0.0-0.9 [facility] Comment on above: IG% - Immature Granu locytes (promyelocytes, myelocytes and metamyelocytes) > 1% indicates that a LEFT SHIFT is Present. Laboratory - Chemistry and C hemistry - challengeOrdered By: Jeffrey Kuhn on 09-28-2023 Albumin/Globulin [Mass ratio] 0.9 {ratio} 0.9-2.4 [facility] ALP [Catalytic activity/Vol] 74 U/L 45-117 [facility] ALT [Catalytic activity/Vol] 14 U/L 16-61 [facility] CO2 [Moles/Vol] 32.0 mmol/L 21.0-32.0 [facility] Globulin (S) [Mass/Vol] 4.1 g/dL 2.2-4.2 [facility] Urea nitrogen/Creatinine [Mass ratio] 10.5 mg/mg 10-20 [facility] Laboratory - Hematology and Cell countsOrdered By: Jeffrey Kuhn on 09-28-2023 MCH (RBC) [Entitic mass] 31.0 pg 27.0-32.0 [facility] MCHC (RBC) [Mass/Vol] 33.5 g/dL 32-36 [facility] Nucleated RBC/100 WBC (Bld) [Ratio] 0 % 0-5 [facility] Platelet mean volume (Bld) [Entitic vol] 9.4 fL 6.2-12.0 [facility] Platelets (Bld) [#/Vol] 185 10*3/uL 150-450 [facility] No Panel InformationOrdered By: Jeffrey Kuhn on 09-28-2023 Estimated Creatinine Clearance Calc 19.69 ml/min [facility] Estimated GFR (MDRD) Amer 16 mL/min >60 [facility] Comment on above: GFR Calc Estimated GFR (MDRD) Non-Af Amer 13 mL/min >60 [facility] Comment on above: Non- GFR Calc RBC Auto (Bld) [#/Vol]Ordere d By: Jeffrey Kuhn on 09-28-2023 RBC (Bld) [#/Vol] 3.87 10*6/uL 4.6-6.2 [facility] Serum or plasma calcium joshua urement (mass/volume)Ordered By: Jeffrey Kuhn on 09-28-2023 Calcium [Mass/Vol] 9.4 mg/dL 8.5-10.1 [facility] Serum or plasma creatinine m easurement (mass/volume)Ordered By: Jeffrey Kuhn on 09-28-2023 Creatinine [Mass/Vol] 4.77 mg/dL 0.70-1.30 [facility] Comment on above: The validity of the calculated GFR & GFRAA in patients over 70 years has not been determined. Clinical correlation is essential. Serum or plasma urea nitroge n measurement (mass/volume)Ordered By: Jeffrey Kuhn on 09-28-2023 Urea nitrogen [Mass/Vol] 50 mg/dL 7-18 [facility] Thin prep Papanicolaou smear with manual screeningOrdered By: Jeffrey Kuhn on 09-28-2023 Thin prep Papanicolaou smear with manual screening 3.5 g/dL 3.2-5.0 [facility] Thin prep Papanicolaou smear with manual screening 12 U/L 15-37 [facility] Thin prep Papanicolaou smear with manual screening 5 5-15 [facility] 24 hour urine protein measur ement (mass/time)Ordered By: Dr. Tucker on 10-21-2022 Protein (24H U) [Mass/Time] 3394.8 mg/24HR 0-151 [facility] 24 hour urine protein measur ement (mass/volume)Ordered By: Dr. Tucker on 10-21-2022 Protein (24H U) [Mass/Vol] 157.9 mg/dL 0.0-11.8 [facility] 24 hour urine specimen volum e measurementOrdered By: Dr. Tucker on 10-21-2022 Specimen volume (24H U) 2.15 L [facility] Creatinine clearanceOrdered By: Dr. Tucker on 10-21-2022 Creatinine renal clearance Unsp time (U+S/P) [Vol/Time] 19 ml/min 100-200 [facility] Laboratory - Specimen inform ationOrdered By: Dr. Tucker on 10-21-2022 Collection duration (U) 24.0 HOURS 24.0-24.0 [facility] No Panel InformationOrdered By: Dr. Tucker on 10-21-2022 Estimated GFR (MDRD) Amer 17 mL/min >60 [facility] Comment on above: GFR Calc Estimated GFR (MDRD) Non-Af Amer 14 mL/min >60 [facility] Comment on above: Non- GFR Calc Serum or plasma creatinine m easurement (mass/volume)Ordered By: Dr. Tucker on 10-21-2022 Creatinine [Mass/Vol] 4.53 mg/dL 0.70-1.30 [facility] Comment on above: The validity of the calculated GFR & GFRAA in patients over 70 years has not been determined. Clinical correlation is essential. Urine creatinine measurement (mass/volume)Ordered By: Dr. Tucker on 10-21-2022 Creatinine (U) [Mass/Vol] 57.3 mg/dL NO RANGE EST. [facility] Basophil percentageOrdered B y: Ruby Rojas on 10-01-2022 Basophil percentage 4.8 mg/dL 2.5-4.9 [facility] Chloride [Moles/Vol] 108 mmol/L 98-107 [facility] Glucose [Mass/Vol] 139 mg/dL 74-106 [facility] Comment on above: Fasting Glucose resu lt greater than or equal to 126 mg/dL suggests DIABETES MELLITUS per A.D.A. criteria. Potassium [Moles/Vol] 4.4 mmol/L 3.5-5.1 [facility] Sodium [Moles/Vol] 142 mmol/L 136-145 [facility] Laboratory - Chemistry and C hemistry - challengeOrdered By: Ruby Rojas on 10-01-2022 CO2 [Moles/Vol] 24.0 mmol/L 21.0-32.0 [facility] Urea nitrogen/Creatinine [Mass ratio] 16.5 mg/mg 10-20 [facility] No Panel InformationOrdered By: Ruby Rojas on 10-01-2022 Estimated GFR (MDRD) Amer 16 mL/min >60 [facility] Comment on above: GFR Calc Estimated GFR (MDRD) Non-Af Amer 13 mL/min >60 [facility] Comment on above: Non- GFR Calc Parathyroid Hormone (Intact) 43.5 pg/mL 18.4-80.1 [facility] Thyroid Stimulating Hormone (TSH) 3.17 uIU/mL 0.358-3.74 [facility] Serum or plasma albumin joshua urement (mass/volume)Ordered By: Ruby Rojas on 10-01-2022 Albumin [Mass/Vol] 3.2 g/dL 3.2-5.0 [facility] Serum or plasma calcium joshua urement (mass/volume)Ordered By: Ruby Rojas on 10-01-2022 Calcium [Mass/Vol] 9.5 mg/dL 8.5-10.1 [facility] Serum or plasma creatinine m easurement (mass/volume)Ordered By: Ruby Rojas on 10-01-2022 Creatinine [Mass/Vol] 4.67 mg/dL 0.70-1.30 [facility] Comment on above: The validity of the calculated GFR & GFRAA in patients over 70 years has not been determined. Clinical correlation is essential. Serum or plasma urea nitroge n measurement (mass/volume)Ordered By: Ruby Rojas on 10-01-2022 Urea nitrogen [Mass/Vol] 77 mg/dL 7-18 [facility] Absolute lymphocyte countOrd ered By: Dr. Kuhn on 09-17-2022 Lymphocytes Auto (Unsp spec) [#/Vol] 1.25 10*3/uL 0.83-4.51 [facility] Basophil percentageOrdered B y: Dr. Kuhn on 09-17-2022 Basophils/100 WBC (Bld) 0.7 % 0-1 [facility] Bilirubin [Mass/Vol] 0.70 mg/dL 0.20-1.00 [facility] Comment on above: For patients on eltr ombopag therapy, use of [employer] [place] TBIL is not recommended. Chloride [Moles/Vol] 109 mmol/L 98-107 [facility] Eosinophils/100 WBC (Bld) 2.8 % 0-5 [facility] Glucose [Mass/Vol] 149 mg/dL 74-106 [facility] Comment on above: Fasting Glucose resu lt greater than or equal to 126 mg/dL suggests DIABETES MELLITUS per A.D.A. criteria. LDH [Catalytic activity/Vol] 164 U/L 87-241 [facility] Neutrophils (Bld) [#/Vol] 5.2 10*3/uL 2.0-7.7 [facility] Neutrophils/100 WBC (Bld) 71.2 % 47-70 [facility] Potassium [Moles/Vol] 4.7 mmol/L 3.5-5.1 [facility] Protein [Mass/Vol] 7.3 g/dL 6.4-8.2 [facility] Sodium [Moles/Vol] 140 mmol/L 136-145 [facility] WBC (Bld) [#/Vol] 7.3 10*3/uL 4.4-11.0 [facility] Blood erythrocytes count (nu mber/volume)Ordered By: Dr. Kuhn on 09-17-2022 RBC (Bld) [#/Vol] 4.01 10*6/uL 4.6-6.2 [facility] Blood hemoglobin measurement (mass/volume)Ordered By: Dr. Kuhn on 09-17-2022 Hemoglobin (Bld) [Mass/Vol] 11.9 g/dL 13.0-16.5 [facility] Blood lymphocytes/100 leukoc ytesOrdered By: Dr. Kuhn on 09-17-2022 Lymphocytes/100 WBC (Bld) 17.2 % 19-41 [facility] Blood monocytes/100 leukocyt esOrdered By: Dr. Kuhn on 09-17-2022 Monocytes/100 WBC (Bld) 7.7 % 0-10 [facility] Blood platelet mean volumeOr dered By: Dr. Kuhn on 09-17-2022 Platelet mean volume (Bld) [Entitic vol] 9.5 fL 6.2-12.0 [facility] Determination of erythrocyte mean corpuscular volume (MCV)Ordered By: Dr. Kuhn on 09-17-2022 MCV (RBC) [Entitic vol] 96.5 fL 80-94 [facility] Hematocrit Auto (Bld) [Volum e fraction]Ordered By: Dr. Kuhn on 09-17-2022 Hematocrit (Bld) [Volume fraction] 38.7 % 40-54 [facility] Laboratory - Chemistry and C hemistry - challengeOrdered By: Dr. Kuhn on 09-17-2022 ALP [Catalytic activity/Vol] 54 U/L 45-117 [facility] ALT [Catalytic activity/Vol] 13 U/L 16-61 [facility] CO2 [Moles/Vol] 25.0 mmol/L 21.0-32.0 [facility] Globulin (S) [Mass/Vol] 4.0 g/dL 2.2-4.2 [facility] Urea nitrogen/Creatinine [Mass ratio] 17.4 mg/mg 10-20 [facility] Laboratory - Hematology and Cell countsOrdered By: Dr. Kuhn on 09-17-2022 Erythrocyte distribution width (RBC) [Entitic vol] 49.6 fL 35.1-43.9 [facility] Erythrocyte distribution width (RBC) [Ratio] 14.0 % 11.6-14.6 [facility] Immature granulocytes/100 WBC (Bld) 0.400 % 0.0-0.9 [facility] Comment on above: IG% - Immature Granu locytes (promyelocytes, myelocytes and metamyelocytes) > 1% indicates that a LEFT SHIFT is Present. MCH (RBC) [Entitic mass] 29.7 pg 27.0-32.0 [facility] Nucleated RBC/100 WBC (Bld) [Ratio] 0 % 0-5 [facility] MCHC Auto (RBC) [Mass/Vol]Or dered By: Dr. Kuhn on 09-17-2022 MCHC (RBC) [Mass/Vol] 30.7 g/dL 32-36 [facility] No Panel InformationOrdered By: Dr. Kuhn on 09-17-2022 Estimated Creatinine Clearance Calc 16.85 ml/min [facility] Estimated GFR (MDRD) Amer 17 mL/min >60 [facility] Comment on above: GFR Calc Estimated GFR (MDRD) Non-Af Amer 14 mL/min >60 [facility] Comment on above: Non- GFR Calc Platelets bldOrdered By: Dr. Kuhn on 09-17-2022 Platelets (Bld) [#/Vol] 219 10*3/uL 150-450 [facility] Serum or plasma albumin joshua urement (mass/volume)Ordered By: Dr. Kuhn on 09-17-2022 Albumin [Mass/Vol] 3.3 g/dL 3.2-5.0 [facility] Serum or plasma albumin/glob ulin mass ratioOrdered By: Dr. Kuhn on 09-17-2022 Albumin/Globulin [Mass ratio] 0.8 {ratio} 0.9-2.4 [facility] Serum or plasma calcium joshua urement (mass/volume)Ordered By: Dr. Kuhn on 09-17-2022 Calcium [Mass/Vol] 10.0 mg/dL 8.5-10.1 [facility] Serum or plasma creatinine m easurement (mass/volume)Ordered By: Dr. Kuhn on 09-17-2022 Creatinine [Mass/Vol] 4.53 mg/dL 0.70-1.30 [facility] Comment on above: The validity of the calculated GFR & GFRAA in patients over 70 years has not been determined. Clinical correlation is essential. Serum or plasma urea nitroge n measurement (mass/volume)Ordered By: Dr. Kuhn on 09-17-2022 Urea nitrogen [Mass/Vol] 79 mg/dL 7-18 [facility] Thin prep Papanicolaou smear with manual screeningOrdered By: Dr. Kuhn on 09-17-2022 Thin prep Papanicolaou smear with manual screening 8 U/L 15-37 [facility] Thin prep Papanicolaou smear with manual screening 6 5-15 [facility] Basophil percentageOrdered B y: Dr. Del Toro on 09-07-2022 Bilirubin [Mass/Vol] 0.80 mg/dL 0.20-1.00 [facility] Comment on above: For patients on eltr ombopag therapy, use of Dim[employer] [place] TBIL is not recommended. Protein [Mass/Vol] 6.9 g/dL 6.4-8.2 [facility] Direct bilirubinOrdered By: Dr. Del Toro on 09-07-2022 Bilirubin.direct [Mass/Vol] 0.23 mg/dL 0.00-0.30 [facility] Laboratory - Chemistry and C hemistry - challengeOrdered By: Dr. Del Toro on 09-07-2022 ALP [Catalytic activity/Vol] 48 U/L 45-117 [facility] ALT [Catalytic activity/Vol] 13 U/L 16-61 [facility] Globulin (S) [Mass/Vol] 3.8 g/dL 2.2-4.2 [facility] Serum or plasma albumin joshua urement (mass/volume)Ordered By: Dr. Del Toro on 09-07-2022 Albumin [Mass/Vol] 3.1 g/dL 3.2-5.0 [facility] Thin prep Papanicolaou smear with manual screeningOrdered By: Dr. Del Toro on 09-07-2022 Thin prep Papanicolaou smear with manual screening 8 U/L 15-37 [facility] Basophil percentageOrdered B y: Dr. Tucker on 08-05-2022 Basophil percentage 4.1 mg/dL 2.5-4.9 [facility] Chloride [Moles/Vol] 111 mmol/L 98-107 [facility] Glucose [Mass/Vol] 214 mg/dL 74-106 [facility] Comment on above: Glucose result great er than or equal to 200 mg/dLsuggests DIABETES MELLITUS per A.D.A. criteria. Potassium [Moles/Vol] 4.0 mmol/L 3.5-5.1 [facility] Sodium [Moles/Vol] 142 mmol/L 136-145 [facility] Laboratory - Chemistry and C hemistry - challengeOrdered By: Dr. Tucker on 08-05-2022 CO2 [Moles/Vol] 24.0 mmol/L 21.0-32.0 [facility] Urea nitrogen/Creatinine [Mass ratio] 16.4 mg/mg 10-20 [facility] No Panel InformationOrdered By: Dr. Tucker on 08-05-2022 Estimated GFR (MDRD) Amer 17 mL/min >60 [facility] Comment on above: GFR Calc Estimated GFR (MDRD) Non-Af Amer 14 mL/min >60 [facility] Comment on above: Non- GFR Calc Parathyroid Hormone (Intact) 26.6 pg/mL 18.4-80.1 [facility] Serum or plasma albumin joshua urement (mass/volume)Ordered By: Dr. Tucker on 08-05-2022 Albumin [Mass/Vol] 3.0 g/dL 3.2-5.0 [facility] Serum or plasma calcium joshua urement (mass/volume)Ordered By: Dr. Tucker on 08-05-2022 Calcium [Mass/Vol] 9.4 mg/dL 8.5-10.1 [facility] Serum or plasma creatinine m easurement (mass/volume)Ordered By: Dr. Tucker on 08-05-2022 Creatinine [Mass/Vol] 4.44 mg/dL 0.70-1.30 [facility] Comment on above: The validity of the calculated GFR & GFRAA in patients over 70 years has not been determined. Clinical correlation is essential. Serum or plasma urea nitroge n measurement (mass/volume)Ordered By: Dr. Tucker on 08-05-2022 Urea nitrogen [Mass/Vol] 73 mg/dL 7-18 [facility] Absolute lymphocyte countOrd ered By: Dr. Kuhn on 05-13-2022 Lymphocytes Auto (Unsp spec) [#/Vol] 1.55 10*3/uL 0.83-4.51 [facility] Basophil percentageOrdered B y: Dr. Kuhn on 05-13-2022 Basophils/100 WBC (Bld) 1.1 % 0-1 [facility] Bilirubin [Mass/Vol] 0.60 mg/dL 0.20-1.00 [facility] Comment on above: For patients on eltr ombopag therapy, use of [employer] [place] TBIL is not recommended. Chloride [Moles/Vol] 109 mmol/L 98-107 [facility] Eosinophils/100 WBC (Bld) 4.5 % 0-5 [facility] Glucose [Mass/Vol] 158 mg/dL 74-106 [facility] Comment on above: Fasting Glucose resu lt greater than or equal to 126 mg/dL suggests DIABETES MELLITUS per A.D.A. criteria. Neutrophils (Bld) [#/Vol] 4.5 10*3/uL 2.0-7.7 [facility] Neutrophils/100 WBC (Bld) 64.1 % 47-70 [facility] Potassium [Moles/Vol] 4.5 mmol/L 3.5-5.1 [facility] Protein [Mass/Vol] 7.1 g/dL 6.4-8.2 [facility] Sodium [Moles/Vol] 142 mmol/L 136-145 [facility] WBC (Bld) [#/Vol] 7.0 10*3/uL 4.4-11.0 [facility] Blood erythrocytes count (nu mber/volume)Ordered By: Dr. Kuhn on 05-13-2022 RBC (Bld) [#/Vol] 3.85 10*6/uL 4.6-6.2 [facility] Blood hemoglobin measurement (mass/volume)Ordered By: Dr. Kuhn on 05-13-2022 Hemoglobin (Bld) [Mass/Vol] 11.5 g/dL 13.0-16.5 [facility] Blood lymphocytes/100 leukoc ytesOrdered By: Dr. Kuhn on 05-13-2022 Lymphocytes/100 WBC (Bld) 22.0 % 19-41 [facility] Blood monocytes/100 leukocyt esOrdered By: Dr. Kuhn on 05-13-2022 Monocytes/100 WBC (Bld) 8.0 % 0-10 [facility] Blood platelet mean volumeOr dered By: Dr. Kuhn on 05-13-2022 Platelet mean volume (Bld) [Entitic vol] 9.4 fL 6.2-12.0 [facility] Determination of erythrocyte mean corpuscular volume (MCV)Ordered By: Dr. Kuhn on 05-13-2022 MCV (RBC) [Entitic vol] 95.6 fL 80-94 [facility] Hematocrit Auto (Bld) [Volum e fraction]Ordered By: Dr. Kuhn on 05-13-2022 Hematocrit (Bld) [Volume fraction] 36.8 % 40-54 [facility] Laboratory - Chemistry and C hemistry - challengeOrdered By: Dr. Kuhn on 05-13-2022 ALP [Catalytic activity/Vol] 55 U/L 45-117 [facility] ALT [Catalytic activity/Vol] 14 U/L 16-61 [facility] CO2 [Moles/Vol] 26.0 mmol/L 21.0-32.0 [facility] Free T4 [Mass/Vol] 1.20 ng/dL 0.76-1.46 [facility] Globulin (S) [Mass/Vol] 4.1 g/dL 2.2-4.2 [facility] Urea nitrogen/Creatinine [Mass ratio] 16.2 mg/mg 10-20 [facility] Laboratory - Hematology and Cell countsOrdered By: Dr. Kuhn on 05-13-2022 Erythrocyte distribution width (RBC) [Entitic vol] 56.3 fL 35.1-43.9 [facility] Erythrocyte distribution width (RBC) [Ratio] 15.9 % 11.6-14.6 [facility] Immature granulocytes/100 WBC (Bld) 0.300 % 0.0-0.9 [facility] Comment on above: IG% - Immature Granu locytes (promyelocytes, myelocytes and metamyelocytes) > 1% indicates that a LEFT SHIFT is Present. MCH (RBC) [Entitic mass] 29.9 pg 27.0-32.0 [facility] Nucleated RBC/100 WBC (Bld) [Ratio] 0 % 0-5 [facility] MCHC Auto (RBC) [Mass/Vol]Or dered By: Dr. Kuhn on 05-13-2022 MCHC (RBC) [Mass/Vol] 31.3 g/dL 32-36 [facility] No Panel InformationOrdered By: Dr. Kuhn on 05-13-2022 Estimated Creatinine Clearance Calc 19.33 ml/min [facility] Estimated GFR (MDRD) Amer 20 mL/min >60 [facility] Comment on above: GFR Calc Estimated GFR (MDRD) Non-Af Amer 16 mL/min >60 [facility] Comment on above: Non- GFR Calc Thyroid Stimulating Hormone (TSH) 3.86 uIU/mL 0.358-3.74 [facility] Platelets bldOrdered By: Dr. Kuhn on 05-13-2022 Platelets (Bld) [#/Vol] 247 10*3/uL 150-450 [facility] Serum or plasma albumin joshua urement (mass/volume)Ordered By: Dr. Kuhn on 05-13-2022 Albumin [Mass/Vol] 3.0 g/dL 3.2-5.0 [facility] Serum or plasma albumin/glob ulin mass ratioOrdered By: Dr. Kuhn on 05-13-2022 Albumin/Globulin [Mass ratio] 0.7 {ratio} 0.9-2.4 [facility] Serum or plasma calcium joshua urement (mass/volume)Ordered By: Dr. Kuhn on 05-13-2022 Calcium [Mass/Vol] 9.8 mg/dL 8.5-10.1 [facility] Serum or plasma creatinine m easurement (mass/volume)Ordered By: Dr. Kuhn on 05-13-2022 Creatinine [Mass/Vol] 3.95 mg/dL 0.70-1.30 [facility] Comment on above: The validity of the calculated GFR & GFRAA in patients over 70 years has not been determined. Clinical correlation is essential. Serum or plasma urea nitroge n measurement (mass/volume)Ordered By: Dr. Kuhn on 05-13-2022 Urea nitrogen [Mass/Vol] 64 mg/dL 7-18 [facility] Thin prep Papanicolaou smear with manual screeningOrdered By: Dr. Kuhn on 05-13-2022 Thin prep Papanicolaou smear with manual screening 12 U/L 15-37 [facility] Thin prep Papanicolaou smear with manual screening 7 5-15 [facility] Thin prep Papanicolaou smear with manual screening 152 U/L 87-241 [facility] Clostridium difficile detect ion by polymerase chain reactionOrdered By: Dr. Del Toro on 04-25-2022 C. difficile DNA TRICIA+probe Ql (Unsp spec) [facility] Stool Clostridium difficile detectionOrdered By: Dr. Del Toro on 04-25-2022 C. difficile Ql (Stl) [facility] Basophil percentageOrdered B y: Dr. Tucker on 04-21-2022 Basophil percentage 3.6 mg/dL 2.5-4.9 [facility] Chloride [Moles/Vol] 107 mmol/L 98-107 [facility] Glucose [Mass/Vol] 168 mg/dL 74-106 [facility] Comment on above: Fasting Glucose resu lt greater than or equal to 126 mg/dL suggests DIABETES MELLITUS per A.D.A. criteria. Potassium [Moles/Vol] 3.8 mmol/L 3.5-5.1 [facility] Sodium [Moles/Vol] 140 mmol/L 136-145 [facility] WBC (Bld) [#/Vol] 6.9 10*3/uL 4.4-11.0 [facility] Blood erythrocytes count (nu mber/volume)Ordered By: Dr. Tucker on 04-21-2022 RBC (Bld) [#/Vol] 3.59 10*6/uL 4.6-6.2 [facility] Blood hemoglobin measurement (mass/volume)Ordered By: Dr. Tucker on 04-21-2022 Hemoglobin (Bld) [Mass/Vol] 10.5 g/dL 13.0-16.5 [facility] Blood platelet mean volumeOr dered By: Dr. Tucker on 04-21-2022 Platelet mean volume (Bld) [Entitic vol] 9.4 fL 6.2-12.0 [facility] Determination of erythrocyte mean corpuscular volume (MCV)Ordered By: Dr. Tucker on 04-21-2022 MCV (RBC) [Entitic vol] 93.0 fL 80-94 [facility] Hematocrit Auto (Bld) [Volum e fraction]Ordered By: Dr. Tucker on 04-21-2022 Hematocrit (Bld) [Volume fraction] 33.4 % 40-54 [facility] Iron measurement (mass/mass) Ordered By: Dr. Tucker on 04-21-2022 Iron (Unsp spec) [Mass/Mass] 29 ug/dL 65-175 [facility] Laboratory - Chemistry and C hemistry - challengeOrdered By: Dr. Tucker on 04-21-2022 CO2 [Moles/Vol] 24.0 mmol/L 21.0-32.0 [facility] Urea nitrogen/Creatinine [Mass ratio] 13.4 mg/mg 10-20 [facility] Laboratory - Hematology and Cell countsOrdered By: Dr. Tucker on 04-21-2022 Erythrocyte distribution width (RBC) [Entitic vol] 51.8 fL 35.1-43.9 [facility] Erythrocyte distribution width (RBC) [Ratio] 15.5 % 11.6-14.6 [facility] MCH (RBC) [Entitic mass] 29.2 pg 27.0-32.0 [facility] MCHC Auto (RBC) [Mass/Vol]Or dered By: Dr. Tucker on 04-21-2022 MCHC (RBC) [Mass/Vol] 31.4 g/dL 32-36 [facility] No Panel InformationOrdered By: Dr. Tucker on 04-21-2022 Estimated GFR (MDRD) Amer 18 mL/min >60 [facility] Comment on above: GFR Calc Estimated GFR (MDRD) Non-Af Amer 15 mL/min >60 [facility] Comment on above: Non- GFR Calc Parathyroid Hormone (Intact) 29.1 pg/mL 18.4-80.1 [facility] Total Iron Binding Capacity 225 ug/dL 250-450 [facility] Platelets bldOrdered By: Dr. Tucker on 04-21-2022 Platelets (Bld) [#/Vol] 242 10*3/uL 150-450 [facility] Serum or plasma albumin joshua urement (mass/volume)Ordered By: Dr. Tucker on 04-21-2022 Albumin [Mass/Vol] 2.5 g/dL 3.2-5.0 [facility] Serum or plasma calcium joshua urement (mass/volume)Ordered By: Dr. Tucker on 04-21-2022 Calcium [Mass/Vol] 9.0 mg/dL 8.5-10.1 [facility] Serum or plasma creatinine m easurement (mass/volume)Ordered By: Dr. Tucker on 04-21-2022 Creatinine [Mass/Vol] 4.19 mg/dL 0.70-1.30 [facility] Comment on above: The validity of the calculated GFR & GFRAA in patients over 70 years has not been determined. Clinical correlation is essential. Serum or plasma ferritin graham surement (mass/volume)Ordered By: Dr. Tucker on 04-21-2022 Ferritin [Mass/Vol] 172 ng/mL 26-388 [facility] Serum or plasma iron saturat ion measurement (mass fraction)Ordered By: Dr. Tucker on 04-21-2022 Iron saturation [Mass fraction] 12.9 % 15.0-55.0 [facility] Serum or plasma urea nitroge n measurement (mass/volume)Ordered By: Dr. Tucker on 04-21-2022 Urea nitrogen [Mass/Vol] 56 mg/dL 7-18 [facility] Basophil percentageon 2021 Chloride [Moles/Vol] 106 mmol/L 98-107 [facility] Work Phone: Glucose [Mass/Vol] 155 mg/dL 74-106 [facility] Work Phone: Comment on above: Fasting Glucose resu lt greater than or equal to 126 mg/dL suggests DIABETES MELLITUS per A.D.A. criteria. Potassium [Moles/Vol] 4.3 mmol/L 3.5-5.1 [facility] Work Phone: Sodium [Moles/Vol] 138 mmol/L 136-145 [facility] Work Phone: WBC (Bld) [#/Vol] 8.9 10*3/uL 4.4-11.0 [facility] Work Phone: Blood erythrocytes count (nu mber/volume)on 02-17-2022 RBC (Bld) [#/Vol] 3.69 10*6/uL 4.6-6.2 [facility]: [phone] Blood hemoglobin measurement (mass/volume)on 02-17-2022 Hemoglobin (Bld) [Mass/Vol] 10.3 g/dL 13.0-16.5 [facility] Work Phone: [phone] Blood platelet mean volumeon 02-17-2022 Platelet mean volume (Bld) [Entitic vol] 9.9 fL 6.2-12.0 [facility] Work Phone: [phone] Determination of erythrocyte mean corpuscular volume (MCV)on 02-17-2022 MCV (RBC) [Entitic vol] 91.1 fL 80-94 [facility] Work Phone: [phone] Hematocrit Auto (Bld) [Volum e fraction]on 02-17-2022 Hematocrit (Bld) [Volume fraction] 33.6 % 40-54 [facility] Work Phone: [phone] Laboratory - Chemistry and C hemistry - challengeon 02-17-2022 CO2 [Moles/Vol] 26.0 mmol/L 21.0-32.0 [facility] Work Phone: [phone] Urea nitrogen/Creatinine [Mass ratio] 14.0 mg/mg 10-20 [facility] Work Phone: [phone] Laboratory - Hematology and Cell countson 02-17-2022 Erythrocyte distribution width (RBC) [Entitic vol] 61.0 fL 35.1-43.9 [facility] Work Phone: [phone] Erythrocyte distribution width (RBC) [Ratio] 18.5 % 11.6-14.6 [facility] Work Phone: [phone] MCH (RBC) [Entitic mass] 27.9 pg 27.0-32.0 [facility] Work Phone: MCHC Auto (RBC) [Mass/Vol]on 02-17-2022 MCHC (RBC) [Mass/Vol] 30.7 g/dL 32-36 [facility] Work Phone: No Panel Informationon 02-17 Estimated GFR (MDRD) Amer 20 mL/min >60 [facility] Work Phone: Comment on above: GFR Calc Estimated GFR (MDRD) Non-Af Amer 16 mL/min >60 [facility] Work Phone: Comment on above: Non- GFR Calc Platelets bldon 02-17-2022 Platelets (Bld) [#/Vol] 261 10*3/uL 150-450 [facility] Work Phone: Serum or plasma calcium joshua urement (mass/volume)on 02-17-2022 Calcium [Mass/Vol] 9.7 mg/dL 8.5-10.1 [facility] Work Phone: Serum or plasma creatinine m easurement (mass/volume)on 02-17-2022 Creatinine [Mass/Vol] 3.94 mg/dL 0.70-1.30 [facility] Work Phone: Comment on above: The validity of the calculated GFR & GFRAA in patients over 70 years has not been determined. Clinical correlation is essential. Serum or plasma urea nitroge n measurement (mass/volume)on 02-17-2022 Urea nitrogen [Mass/Vol] 55 mg/dL 7-18 [facility] Work Phone: [phone] Thin prep Papanicolaou smear with manual screeningon 02-17-2022 Thin prep Papanicolaou smear with manual screening 6 5-15 [facility] Work Phone: [phone] Absolute lymphocyte counton 01-17-2022 Lymphocytes Auto (Unsp spec) [#/Vol] 0.86 10*3/uL 0.83-4.51 [facility] Work Phone: Basophil percentageon 2021 Basophils/100 WBC (Bld) 0.8 % 0-1 [facility] Work Phone: Chloride [Moles/Vol] 111 mmol/L 98-107 [facility] Work Phone: Eosinophils/100 WBC (Bld) 3.4 % 0-5 [facility] Work Phone: Glucose [Mass/Vol] 104 mg/dL 74-106 [facility] Work Phone: Comment on above: Fasting Glucose resu lt from 100 to 125 mg/dL suggests IMPAIRED HOMEOSTASIS per A.D.A. criteria. Neutrophils (Bld) [#/Vol] 6.2 10*3/uL 2.0-7.7 [facility] Work Phone: Neutrophils/100 WBC (Bld) 75.7 % 47-70 [facility] Work Phone: Potassium [Moles/Vol] 4.5 mmol/L 3.5-5.1 [facility] Work Phone: Sodium [Moles/Vol] 139 mmol/L 136-145 [facility] Work Phone: WBC (Bld) [#/Vol] 8.3 10*3/uL 4.4-11.0 [facility] Work Phone: Blood erythrocytes count (nu mber/volume)on 01-17-2022 RBC (Bld) [#/Vol] 3.47 10*6/uL 4.6-6.2 [facility]: Blood hemoglobin measurement (mass/volume)on 01-17-2022 Hemoglobin (Bld) [Mass/Vol] 9.2 g/dL 13.0-16.5 [facility] Work Phone: Blood lymphocytes/100 leukoc yteson 01-17-2022 Lymphocytes/100 WBC (Bld) 10.4 % 19-41 [facility] Work Phone: Blood monocytes/100 leukocyt eson 01-17-2022 Monocytes/100 WBC (Bld) 9.0 % 0-10 [facility] Work Phone: [phone] Blood platelet mean volumeon 01-17-2022 Platelet mean volume (Bld) [Entitic vol] 9.4 fL 6.2-12.0 [facility] Work Phone: [phone] Determination of erythrocyte mean corpuscular volume (MCV)on 01-17-2022 MCV (RBC) [Entitic vol] 91.6 fL 80-94 [facility] Work Phone: [phone] Hematocrit Auto (Bld) [Volum e fraction]on 01-17-2022 Hematocrit (Bld) [Volume fraction] 31.8 % 40-54 [facility] Work Phone: [phone] Laboratory - Chemistry and C hemistry - challengeon 01-17-2022 CO2 [Moles/Vol] 21.0 mmol/L 21.0-32.0 [facility] Work Phone: [phone] Urea nitrogen/Creatinine [Mass ratio] 13.4 mg/mg 10-20 [facility] Work Phone: [phone] Laboratory - Hematology and Cell countson 01-17-2022 Erythrocyte distribution width (RBC) [Entitic vol] 61.0 fL 35.1-43.9 [facility] Work Phone: [phone] Erythrocyte distribution width (RBC) [Ratio] 18.3 % 11.6-14.6 [facility] Work Phone: [phone] Immature granulocytes/100 WBC (Bld) 0.700 % 0.0-0.9 [facility] Work Phone: [phone] Comment on above: IG% - Immature Granu locytes (promyelocytes, myelocytes and metamyelocytes) > 1% indicates that a LEFT SHIFT is Present. MCH (RBC) [Entitic mass] 26.5 pg 27.0-32.0 [facility] Work Phone: [phone] Nucleated RBC/100 WBC (Bld) [Ratio] 0 % 0-5 [facility] Work Phone: [phone] MCHC Auto (RBC) [Mass/Vol]on 01-17-2022 MCHC (RBC) [Mass/Vol] 28.9 g/dL 32-36 [facility] Work Phone: No Panel Informationon 01-17 Estimated Creatinine Clearance Calc 22.72 ml/min [facility] Work Phone: Estimated GFR (MDRD) Amer 24 mL/min >60 [facility] Work Phone: Comment on above: GFR Calc Estimated GFR (MDRD) Non-Af Amer 20 mL/min >60 [facility] Work Phone: Comment on above: Non- GFR Calc Platelets bldon 01-17-2022 Platelets (Bld) [#/Vol] 267 10*3/uL 150-450 [facility] Work Phone: Serum or plasma calcium joshua urement (mass/volume)on 01-17-2022 Calcium [Mass/Vol] 8.8 mg/dL 8.5-10.1 [facility] Work Phone: Serum or plasma creatinine m easurement (mass/volume)on 01-17-2022 Creatinine [Mass/Vol] 3.36 mg/dL 0.70-1.30 [facility] Work Phone: Comment on above: The validity of the calculated GFR & GFRAA in patients over 70 years has not been determined. Clinical correlation is essential. Serum or plasma urea nitroge n measurement (mass/volume)on 01-17-2022 Urea nitrogen [Mass/Vol] 45 mg/dL 7-18 [facility] Work Phone: [phone] Thin prep Papanicolaou smear with manual screeningon 01-17-2022 Thin prep Papanicolaou smear with manual screening 7 5-15 [facility] Work Phone: [phone] Absolute lymphocyte counton 01-12-2022 Lymphocytes Auto (Unsp spec) [#/Vol] 1.01 10*3/uL 0.83-4.51 [facility] Work Phone: Basophil percentageOrdered B y: Dr. Kuhn on 01-12-2022 Basophil percentage 3.8 mg/dL 2.5-4.9 [facility] Basophil percentageon 2021 Basophils/100 WBC (Bld) 0.6 % 0-1 [facility] Work Phone: Bilirubin [Mass/Vol] 0.90 mg/dL 0.20-1.00 [facility] Work Phone: Comment on above: For patients on eltr ombopag therapy, use of Dimension [place] TBIL is not recommended. Chloride [Moles/Vol] 114 mmol/L 98-107 [facility] Work Phone: Eosinophils/100 WBC (Bld) 2.2 % 0-5 [facility] Work Phone: Glucose [Mass/Vol] 96 mg/dL 74-106 [facility] Work Phone: Neutrophils (Bld) [#/Vol] 9.0 10*3/uL 2.0-7.7 [facility] Work Phone: Neutrophils/100 WBC (Bld) 80.2 % 47-70 [facility] Work Phone: Potassium [Moles/Vol] 4.5 mmol/L 3.5-5.1 [facility] Work Phone: Protein [Mass/Vol] 6.3 g/dL 6.4-8.2 [facility] Work Phone: Sodium [Moles/Vol] 140 mmol/L 136-145 [facility] Work Phone: WBC (Bld) [#/Vol] 11.2 10*3/uL 4.4-11.0 [facility] Work Phone: Blood erythrocytes count (nu mber/volume)on 01-12-2022 RBC (Bld) [#/Vol] 3.52 10*6/uL 4.6-6.2 [facility] Work Phone: Blood hemoglobin measurement (mass/volume)on 01-12-2022 Hemoglobin (Bld) [Mass/Vol] 9.3 g/dL 13.0-16.5 [facility] Work Phone: Blood lymphocytes/100 leukoc yteson 01-12-2022 Lymphocytes/100 WBC (Bld) 9.1 % 19-41 [facility] Work Phone: Blood monocytes/100 leukocyt eson 01-12-2022 Monocytes/100 WBC (Bld) 7.3 % 0-10 [facility] Work Phone: Blood platelet adequacy dete ction by light microscopyOrdered By: Dr. Kuhn on 01-12-2022 Platelets LM Ql (Bld) ADEQUATE ADEQ [facility] Blood platelet mean volumeon 01-12-2022 Platelet mean volume (Bld) [Entitic vol] 10.0 fL 6.2-12.0 [facility] Work Phone: Determination of erythrocyte mean corpuscular volume (MCV)on 01-12-2022 MCV (RBC) [Entitic vol] 96.3 fL 80-94 [facility] Work Phone: Hematocrit Auto (Bld) [Volum e fraction]on 01-12-2022 Hematocrit (Bld) [Volume fraction] 33.9 % 40-54 [facility] Work Phone: Laboratory - Chemistry and C hemistry - challengeon 01-12-2022 ALP [Catalytic activity/Vol] 58 U/L 45-117 [facility] Work Phone: ALT [Catalytic activity/Vol] 13 U/L 16-61 [facility] Work Phone: CO2 [Moles/Vol] 18.0 mmol/L 21.0-32.0 [facility] Work Phone: Globulin (S) [Mass/Vol] 3.7 g/dL 2.2-4.2 [facility] Work Phone: Urea nitrogen/Creatinine [Mass ratio] 14.1 mg/mg 10-20 [facility] Work Phone: Laboratory - Hematology and Cell countsOrdered By: Dr. Kuhn on 01-12-2022 Anisocytosis Ql (Bld) 1+ [facility] Laboratory - Hematology and Cell countson 01-12-2022 Erythrocyte distribution width (RBC) [Entitic vol] 67.2 fL 35.1-43.9 [facility] Work Phone: Erythrocyte distribution width (RBC) [Ratio] 19.1 % 11.6-14.6 [facility] Work Phone: Immature granulocytes/100 WBC (Bld) 0.600 % 0.0-0.9 [facility] Work Phone: Comment on above: IG% - Immature Granu locytes (promyelocytes, myelocytes and metamyelocytes) > 1% indicates that a LEFT SHIFT is Present. MCH (RBC) [Entitic mass] 26.4 pg 27.0-32.0 [facility] Work Phone: Nucleated RBC/100 WBC (Bld) [Ratio] 0 % 0-5 [facility] Work Phone: MCHC Auto (RBC) [Mass/Vol]on 01-12-2022 MCHC (RBC) [Mass/Vol] 27.4 g/dL 32-36 [facility] Work Phone: No Panel Informationon 01-12 Estimated Creatinine Clearance Calc 22.39 ml/min [facility] Work Phone: Estimated GFR (MDRD) Amer 23 mL/min >60 [facility] Work Phone: Comment on above: GFR Calc Estimated GFR (MDRD) Non-Af Amer 19 mL/min >60 [facility] Work Phone: Comment on above: Non- GFR Calc No Panel InformationOrdered By: Jeffrey Kuhn on 01-12-2022 1+ [facility] Platelets LM Ql (Bld)Ordered By: Jeffrey Kuhn on 01-12-2022 Platelet Estimate ADEQUATE ADEQ [facility] Blood platelet adequacy detection by light microscopy ADEQUATE ADEQ [facility] Platelets bldon 01-12-2022 Platelets (Bld) [#/Vol] 239 10*3/uL 150-450 [facility] Work Phone: Serum or plasma albumin joshua urement (mass/volume)on 01-12-2022 Albumin [Mass/Vol] 2.6 g/dL 3.2-5.0 [facility] Work Phone: [phone] Serum or plasma albumin/glob ulin mass ratioon 01-12-2022 Albumin/Globulin [Mass ratio] 0.7 {ratio} 0.9-2.4 [facility] Work Phone: [phone] Serum or plasma calcium joshua urement (mass/volume)on 01-12-2022 Calcium [Mass/Vol] 8.6 mg/dL 8.5-10.1 [facility] Work Phone: Serum or plasma creatinine m easurement (mass/volume)on 01-12-2022 Creatinine [Mass/Vol] 3.41 mg/dL 0.70-1.30 [facility] Work Phone: Comment on above: The validity of the calculated GFR & GFRAA in patients over 70 years has not been determined. Clinical correlation is essential. Serum or plasma urea nitroge n measurement (mass/volume)on 01-12-2022 Urea nitrogen [Mass/Vol] 48 mg/dL 7-18 [facility] Work Phone: [phone] Thin prep Papanicolaou smear with manual screeningon 01-12-2022 Thin prep Papanicolaou smear with manual screening 18 U/L 15-37 [facility] Work Phone: [phone] Thin prep Papanicolaou smear with manual screening 8 5-15 [facility] Work Phone: [phone] Thin prep Papanicolaou smear with manual screening 443 U/L 87-241 [facility] Work Phone: [phone] Trichomonas screening testOr dered By: Jeffrey Kuhn on 01-12-2022 Phosphorus Level 3.8 mg/dL 2.5-4.9 [facility] Trichomonas screening test 3.8 mg/dL 2.5-4.9 [facility] Absolute lymphocyte counton 01-06-2022 Lymphocytes Auto (Unsp spec) [#/Vol] 0.73 10*3/uL 0.83-4.51 [facility] Work Phone: Basophil percentageon 2021 Basophils/100 WBC (Bld) 0.4 % 0-1 [facility] Work Phone: Eosinophils/100 WBC (Bld) 2.6 % 0-5 [facility] Work Phone: Neutrophils (Bld) [#/Vol] 6.2 10*3/uL 2.0-7.7 [facility] Work Phone: Neutrophils/100 WBC (Bld) 75.8 % 47-70 [facility] Work Phone: WBC (Bld) [#/Vol] 8.2 10*3/uL 4.4-11.0 [facility] Work Phone: Blood erythrocytes count (nu mber/volume)on 01-06-2022 RBC (Bld) [#/Vol] 3.19 10*6/uL 4.6-6.[facility] Work [facility]: Blood hemoglobin measurement (mass/volume)on 01-06-2022 Hemoglobin (Bld) [Mass/Vol] 8.6 g/dL 13.0-16.5 [facility] Work Phone: Blood lymphocytes/100 leukoc yteson 01-06-2022 Lymphocytes/100 WBC (Bld) 9.0 % 19-41 [facility] Work Phone: Blood monocytes/100 leukocyt eson 01-06-2022 Monocytes/100 WBC (Bld) 11.3 % 0-10 [facility] Work Phone: Blood platelet mean volumeon 01-06-2022 Platelet mean volume (Bld) [Entitic vol] 9.6 fL 6.2-12.0 [facility] Work Phone: Determination of erythrocyte mean corpuscular volume (MCV)on 01-06-2022 MCV (RBC) [Entitic vol] 89.3 fL 80-94 [facility] Work Phone: Hematocrit Auto (Bld) [Volum e fraction]on 01-06-2022 Hematocrit (Bld) [Volume fraction] 28.5 % 40-54 [facility] Work Phone: [phone] Laboratory - Hematology and Cell countson 01-06-2022 Erythrocyte distribution width (RBC) [Entitic vol] 58.8 fL 35.1-43.9 [facility] Work Phone: [phone] Erythrocyte distribution width (RBC) [Ratio] 18.6 % 11.6-14.6 [facility] Work Phone: [phone] Immature granulocytes/100 WBC (Bld) 0.900 % 0.0-0.9 [facility] Work Phone: [phone] Comment on above: IG% - Immature Granu locytes (promyelocytes, myelocytes and metamyelocytes) > 1% indicates that a LEFT SHIFT is Present. MCH (RBC) [Entitic mass] 27.0 pg 27.0-32.0 [facility] Work Phone: [phone] Nucleated RBC/100 WBC (Bld) [Ratio] 0 % 0-5 [facility] Work Phone: [phone] MCHC Auto (RBC) [Mass/Vol]on 01-06-2022 MCHC (RBC) [Mass/Vol] 30.2 g/dL 32-36 [facility] Work Phone: [phone] Platelets bldon 01-06-2022 Platelets (Bld) [#/Vol] 197 10*3/uL 150-450 [facility] Work Phone: [phone] Basophil percentageon 2021 Chloride [Moles/Vol] 115 mmol/L 98-107 [facility] Work Phone: [phone] Glucose [Mass/Vol] 98 mg/dL 74-106 [facility] Work Phone: [phone] Potassium [Moles/Vol] 3.6 mmol/L 3.5-5.1 [facility] Work Phone: [phone] Sodium [Moles/Vol] 142 mmol/L 136-145 [facility] Work Phone: [phone] Laboratory - Chemistry and C hemistry - challengeon 01-05-2022 CO2 [Moles/Vol] 21.0 mmol/L 21.0-32.0 [facility] Work Phone: Urea nitrogen/Creatinine [Mass ratio] 15.7 mg/mg 10-20 [facility] Work Phone: No Panel Informationon 01-05 Estimated Creatinine Clearance Calc 23.56 ml/min [facility] Work Phone: [phone] Estimated GFR (MDRD) Amer 25 mL/min >60 [facility] Work Phone: Comment on above: GFR Calc Estimated GFR (MDRD) Non-Af Amer 20 mL/min >60 [facility] Work Phone: Comment on above: Non- GFR Calc Serum or plasma calcium joshua urement (mass/volume)on 01-05-2022 Calcium [Mass/Vol] 8.4 mg/dL 8.5-10.1 [facility] Work Phone: Serum or plasma creatinine m easurement (mass/volume)on 01-05-2022 Creatinine [Mass/Vol] 3.24 mg/dL 0.70-1.30 [facility] Work Phone: Comment on above: The validity of the calculated GFR & GFRAA in patients over 70 years has not been determined. Clinical correlation is essential. Serum or plasma urea nitroge n measurement (mass/volume)on 01-05-2022 Urea nitrogen [Mass/Vol] 51 mg/dL 7-18 [facility] Work Phone: [phone] Thin prep Papanicolaou smear with manual screeningon 01-05-2022 Thin prep Papanicolaou smear with manual screening 6 5-15 [facility] Work Phone: [phone] Basophil percentageon 2021 Bilirubin [Mass/Vol] 2.30 mg/dL 0.20-1.00 [facility] Work Phone: Comment on above: For patients on eltr ombopag therapy, use of Dimension [place] TBIL is not recommended. Protein [Mass/Vol] 5.6 g/dL 6.4-8.2 [facility] Work Phone: Blood manual differential co mment interpretation (narrative result)on 01-04-2022 Manual differential comment Luis Fernando (Bld) [Interp] SCANNED [facility] Work Phone: Comment on above: LYMPHOPENIA NOTED Hypochromatic red blood cell detectionon 01-04-2022 Hypochromia Ql (Bld) 1+ [facility] Work Phone: Laboratory - Chemistry and C hemistry - challengeon 01-04-2022 ALP [Catalytic activity/Vol] 53 U/L 45-117 [facility] Work Phone: ALT [Catalytic activity/Vol] 27 U/L 16-61 [facility] Work Phone: [phone] Globulin (S) [Mass/Vol] 3.1 g/dL 2.2-4.2 [facility] Work Phone: Laboratory - Hematology and Cell countson 01-04-2022 Anisocytosis Ql (Bld) 1+ [facility] Work Phone: Serum or plasma albumin joshua urement (mass/volume)on 01-04-2022 Albumin [Mass/Vol] 2.5 g/dL 3.2-5.0 [facility] Work Phone: Serum or plasma albumin/glob ulin mass ratioon 01-04-2022 Albumin/Globulin [Mass ratio] 0.8 {ratio} 0.9-2.4 [facility] Work Phone: Thin prep Papanicolaou smear with manual screeningon 01-04-2022 Thin prep Papanicolaou smear with manual screening 34 U/L 15-37 [facility] Work Phone: Absolute lymphocyte counton 01-03-2022 Lymphocytes Auto (Unsp spec) [#/Vol] 0.47 10*3/uL 0.83-4.51 [facility] Work Phone: Basophil percentageon 06-11- 2022 Basophils/100 WBC (Bld) 0.2 % 0-1 [facility] Work Phone: Bilirubin [Mass/Vol] 2.60 mg/dL 0.20-1.00 [facility] Work Phone: Comment on above: For patients on eltr ombopag therapy, use of Dimension [place] TBIL is not recommended. Chloride [Moles/Vol] 110 mmol/L 98-107 [facility] Work Phone: Eosinophils/100 WBC (Bld) 2.0 % 0-5 [facility] Work Phone: Glucose [Mass/Vol] 123 mg/dL 74-106 [facility] Work Phone: Comment on above: Fasting Glucose resu lt from 100 to 125 mg/dL suggests IMPAIRED HOMEOSTASIS per A.D.A. criteria. Lactate [Moles/Vol] 0.5 mmol/L 0.4-2.0 [facility] Work Phone: Neutrophils (Bld) [#/Vol] 7.7 10*3/uL 2.0-7.7 [facility] Work Phone: Neutrophils/100 WBC (Bld) 83.2 % 47-70 [facility] Work Phone: Potassium [Moles/Vol] 4.4 mmol/L 3.5-5.1 [facility] Work Phone: Comment on above: Moderate Hemolysis, Result may be falsely increased. Protein [Mass/Vol] 6.5 g/dL 6.4-8.2 [facility] Work Phone: Sodium [Moles/Vol] 139 mmol/L 136-145 [facility] Work Phone: WBC (Bld) [#/Vol] 9.2 10*3/uL 4.4-11.0 [facility] Work Phone: Blood erythrocytes count (nu mber/volume)on 01-03-2022 RBC (Bld) [#/Vol] 3.36 10*6/uL 4.6-6.2 [facility]: [phone] Blood hemoglobin measurement (mass/volume)on 01-03-2022 Hemoglobin (Bld) [Mass/Vol] 9.0 g/dL 13.0-16.5 [facility] Work Phone: Blood lymphocytes/100 leukoc yteson 01-03-2022 Lymphocytes/100 WBC (Bld) 5.1 % 19-41 [facility] Work Phone: [phone] Blood monocytes/100 leukocyt eson 01-03-2022 Monocytes/100 WBC (Bld) 8.6 % 0-10 [facility] Work Phone: [phone] Blood platelet adequacy dete ction by light microscopyon 01-03-2022 Platelets LM Ql (Bld) ADEQUATE ADEQ [facility] Work Phone: [phone] Blood platelet mean volumeon 01-03-2022 Platelet mean volume (Bld) [Entitic vol] 10.7 fL 6.2-12.0 [facility] Work Phone: Determination of erythrocyte mean corpuscular volume (MCV)on 01-03-2022 MCV (RBC) [Entitic vol] 88.1 fL 80-94 [facility] Work Phone: Hematocrit Auto (Bld) [Volum e fraction]on 01-03-2022 Hematocrit (Bld) [Volume fraction] 29.6 % 40-54 [facility] Work Phone: Laboratory - Chemistry and C hemistry - challengeon 01-03-2022 ALP [Catalytic activity/Vol] 63 U/L 45-117 [facility] Work Phone: ALT [Catalytic activity/Vol] 35 U/L 16-61 [facility] Work Phone: [phone] CO2 [Moles/Vol] 20.0 mmol/L 21.0-32.0 [facility] Work Phone: [phone] Globulin (S) [Mass/Vol] 3.5 g/dL 2.2-4.2 [facility] Work Phone: Lipase [Catalytic activity/Vol] 225 U/L 73-393 [facility] Work Phone: [phone] Urea nitrogen/Creatinine [Mass ratio] 15.4 mg/mg 10-20 [facility] Work Phone: [phone] Laboratory - Hematology and Cell countson 01-03-2022 Anisocytosis Ql (Bld) 1+ [facility] Work Phone: [phone] Erythrocyte distribution width (RBC) [Entitic vol] 55.0 fL 35.1-43.9 [facility] Work Phone: [phone] Erythrocyte distribution width (RBC) [Ratio] 18.1 % 11.6-14.6 [facility] Work Phone: [phone] Immature granulocytes/100 WBC (Bld) 0.900 % 0.0-0.9 [facility] Work Phone: [phone] Comment on above: IG% - Immature Granu locytes (promyelocytes, myelocytes and metamyelocytes) > 1% indicates that a LEFT SHIFT is Present. MCH (RBC) [Entitic mass] 26.8 pg 27.0-32.0 [facility] Work Phone: [phone] Nucleated RBC/100 WBC (Bld) [Ratio] 0 % 0-5 [facility] Work Phone: [phone] MCHC Auto (RBC) [Mass/Vol]on 01-03-2022 MCHC (RBC) [Mass/Vol] 30.4 g/dL 32-36 [facility] Work Phone: [phone] No Panel Informationon 01-03 SARS-CoV-2 & FLU Antigen (Rapid) [facility] Work Phone: [phone] Estimated Creatinine Clearance Calc 19.63 ml/min [facility] Work Phone: [phone] Estimated GFR (MDRD) Amer 20 mL/min >60 [facility] Work Phone: [phone] Comment on above: GFR Calc Estimated GFR (MDRD) Non-Af Amer 17 mL/min >60 [facility] Work Phone: [phone] Comment on above: Non- GFR Calc Platelets bldon 01-03-2022 Platelets (Bld) [#/Vol] 181 10*3/uL 150-450 [facility] Work Phone: [phone] Serum or plasma albumin joshua urement (mass/volume)on 01-03-2022 Albumin [Mass/Vol] 3.0 g/dL 3.2-5.0 [facility] Work Phone: [phone] Serum or plasma albumin/glob ulin mass ratioon 01-03-2022 Albumin/Globulin [Mass ratio] 0.9 {ratio} 0.9-2.4 [facility] Work Phone: [phone] Serum or plasma calcium joshua urement (mass/volume)on 01-03-2022 Calcium [Mass/Vol] 9.1 mg/dL 8.5-10.1 [facility] Work Phone: [phone] Serum or plasma creatinine m easurement (mass/volume)on 01-03-2022 Creatinine [Mass/Vol] 3.89 mg/dL 0.70-1.30 [facility] Work Phone: Comment on above: The validity of the calculated GFR & GFRAA in patients over 70 years has not been determined. Clinical correlation is essential. Serum or plasma urea nitroge n measurement (mass/volume)on 01-03-2022 Urea nitrogen [Mass/Vol] 60 mg/dL 7-18 [facility] Work Phone: [phone] Thin prep Papanicolaou smear with manual screeningon 01-03-2022 Thin prep Papanicolaou smear with manual screening 66 U/L 15-37 [facility] Work Phone: [phone] Comment on above: Moderate Hemolysis, Result may be falsely increased. Thin prep Papanicolaou smear with manual screening 9 5-15 [facility] Work Phone: [phone] Absolute lymphocyte counton 01-01-2022 Lymphocytes Auto (Unsp spec) [#/Vol] 0.44 10*3/uL 0.83-4.51 [facility] Work Phone: [phone] Basophil percentageon 2021 Basophils/100 WBC (Bld) 0.3 % 0-1 [facility] Work Phone: Chloride [Moles/Vol] 109 mmol/L 98-107 [facility]: Eosinophils/100 WBC (Bld) 3.4 % 0-5 [facility] Work Phone: Glucose [Mass/Vol] 123 mg/dL 74-106 [facility] Work Phone: Comment on above: Fasting Glucose resu lt from 100 to 125 mg/dL suggests IMPAIRED HOMEOSTASIS per A.D.A. criteria. Neutrophils (Bld) [#/Vol] 5.3 10*3/uL 2.0-7.7 [facility] Work Phone: Neutrophils/100 WBC (Bld) 79.3 % 47-70 [facility] Work Phone: Potassium [Moles/Vol] 3.9 mmol/L 3.5-5.1 [facility] Work Phone: Sodium [Moles/Vol] 138 mmol/L 136-145 [facility] Work Phone: WBC (Bld) [#/Vol] 6.7 10*3/uL 4.4-11.0 [facility] Work Phone: Blood erythrocytes count (nu mber/volume)on 01-01-2022 RBC (Bld) [#/Vol] 2.97 10*6/uL 4.6-6.2 [facility] Work Phone: Blood hemoglobin measurement (mass/volume)on 01-01-2022 Hemoglobin (Bld) [Mass/Vol] 7.9 g/dL 13.0-16.5 [facility] Work Phone: Blood lymphocytes/100 leukoc yteson 01-01-2022 Lymphocytes/100 WBC (Bld) 6.5 % 19-41 [facility] Work Phone: Blood manual differential co mment interpretation (narrative result)on 06-09-2022 Manual differential comment Luis Fernando (Bld) [Interp] SCANNED [facility] Work Phone: Blood monocytes/100 leukocyt eson 01-01-2022 Monocytes/100 WBC (Bld) 10.1 % 0-10 [facility] Work Phone: [phone] Blood platelet mean volumeon 01-01-2022 Platelet mean volume (Bld) [Entitic vol] 9.3 fL 6.2-12.0 [facility] Work Phone: Determination of erythrocyte mean corpuscular volume (MCV)on 01-01-2022 MCV (RBC) [Entitic vol] 87.5 fL 80-94 [facility] Work Phone: Glucose Glucometer (BldC) [M ass/Vol]on 01-01-2022 Glucose [Mass/Vol] 143 mg/dL 74-106 [facility] Work Phone: Comment on above: MANAGEMENT OF PATIEN T CARE PER NURSING PROTOCOL Hematocrit Auto (Bld) [Volum e fraction]on 01-01-2022 Hematocrit (Bld) [Volume fraction] 26.0 % 40-54 [facility] Work Phone: Laboratory - Chemistry and C hemistry - challengeon 01-01-2022 CO2 [Moles/Vol] 23.0 mmol/L 21.0-32.0 [facility] Work Phone: [phone] Urea nitrogen/Creatinine [Mass ratio] 15.3 mg/mg 10-20 [facility] Work Phone: [phone] Laboratory - Hematology and Cell countson 01-01-2022 Erythrocyte distribution width (RBC) [Entitic vol] 53.3 fL 35.1-43.9 [facility] Work Phone: [phone] Erythrocyte distribution width (RBC) [Ratio] 17.3 % 11.6-14.6 [facility] Work Phone: [phone] Immature granulocytes/100 WBC (Bld) 0.400 % 0.0-0.9 [facility] Work Phone: [phone] Comment on above: IG% - Immature Granu locytes (promyelocytes, myelocytes and metamyelocytes) > 1% indicates that a LEFT SHIFT is Present. MCH (RBC) [Entitic mass] 26.6 pg 27.0-32.0 [facility] Work Phone: Nucleated RBC/100 WBC (Bld) [Ratio] 0 % 0-5 [facility] Work Phone: MCHC Auto (RBC) [Mass/Vol]on 01-01-2022 MCHC (RBC) [Mass/Vol] 30.4 g/dL 32-36 [facility] Work Phone: No Panel Informationon 01-01 Estimated Creatinine Clearance Calc 17.43 ml/min [facility] Work Phone: Estimated GFR (MDRD) Amer 17 mL/min >60 [facility] Work Phone: Comment on above: GFR Calc Estimated GFR (MDRD) Non-Af Amer 14 mL/min >60 [facility] Work Phone: Comment on above: Non- GFR Calc Platelets bldon 01-01-2022 Platelets (Bld) [#/Vol] 192 10*3/uL 150-450 [facility] Work Phone: Serum or plasma calcium joshua urement (mass/volume)on 01-01-2022 Calcium [Mass/Vol] 8.3 mg/dL 8.5-10.1 [facility] Work Phone: [phone] Serum or plasma creatinine m easurement (mass/volume)on 01-01-2022 Creatinine [Mass/Vol] 4.38 mg/dL 0.70-1.30 [facility] Work Phone: Comment on above: The validity of the calculated GFR & GFRAA in patients over 70 years has not been determined. Clinical correlation is essential. Serum or plasma urea nitroge n measurement (mass/volume)on 01-01-2022 Urea nitrogen [Mass/Vol] 67 mg/dL 7-18 [facility] Work Phone: [phone] Thin prep Papanicolaou smear with manual screeningon 01-01-2022 Thin prep Papanicolaou smear with manual screening 6 5-15 [facility] Work Phone: Iron measurement (mass/mass) on 12-31-2021 Iron (Unsp spec) [Mass/Mass] 35 ug/dL 65-175 [facility] Work Phone: Laboratory - Chemistry and C hemistry - challengeon 12-31-2021 Cobalamin (Vitamin B12) [Mass/Vol] 1054 pg/mL 211-911 [facility] Work Phone: [phone] Panel Informationon 12-31 Total Iron Binding Capacity 254 ug/dL 250-450 [facility] Work Phone: Serum or plasma ferritin graham surement (mass/volume)on 12-31-2021 Ferritin [Mass/Vol] 55 ng/mL 26-388 [facility] Work Phone: Serum or plasma folate measu rement (mass/volume)on 12-31-2021 Folate [Mass/Vol] 11.10 ng/mL 3.1-55.4 [facility] Work Phone: Serum or plasma iron saturat ion measurement (mass fraction)on 12-31-2021 Iron saturation [Mass fraction] 13.8 % 15.0-55.0 [facility] Work Phone: Basophil percentageon 2021 Bilirubin [Mass/Vol] 0.80 mg/dL 0.20-1.00 [facility] Work Phone: Comment on above: For patients on eltr ombopag therapy, use of Dimension [place] TBIL is not recommended. Protein [Mass/Vol] 5.8 g/dL 6.4-8.2 [facility] Work Phone: INR in Blood by Coagulation assayon 12-30-2021 INR Coag (Bld) [Relative time] 1.6 {INR} [facility] Work Phone: Laboratory - Chemistry and C hemistry - challengeon 12-30-2021 ALP [Catalytic activity/Vol] 48 U/L 45-117 [facility] Work Phone: ALT [Catalytic activity/Vol] 11 U/L 16-61 [facility] Work Phone: [phone] Globulin (S) [Mass/Vol] 3.3 g/dL 2.2-4.2 [facility] Work Phone: Laboratory - Coagulationon 0 12-30-2021 PT Coag (PPP) [Time] 18.7 s 11.7-14.[address] [facility] Work Phone: [phone] Serum or plasma albumin joshua urement (mass/volume)on 12-30-2021 Albumin [Mass/Vol] 2.5 g/dL 3.2-5.0 [facility] Work Phone: Serum or plasma albumin/glob ulin mass ratioon 12-30-2021 Albumin/Globulin [Mass ratio] 0.8 {ratio} 0.9-2.4 [facility] Work Phone: Thin prep Papanicolaou smear with manual screeningon 12-30-2021 Thin prep Papanicolaou smear with manual screening 11 U/L 15-37 [facility] Work Phone: Culture, urineon 12-29-2021 Bacteria identified Cx Nom (U) Positive [facility] Work Phone: [phone] Laboratory - Chemistry and C hemistry - challengeon 12-29-2021 Lipase [Catalytic activity/Vol] 106 U/L 73-393 [facility] Work Phone: Basophil percentageon 2021 Lactate [Moles/Vol] 1.5 mmol/L 0.4-2.0 [place] [facility] Work Phone: [phone] Cholesterol [Mass/Vol] 122 mg/dL <200 [facility] Work Phone: [phone] Comment on above: <200 mg/dL Desirable 200-240 mg/dL Borderline >240 mg/dL High Risk Triglyceride [Mass/Vol] 152 mg/dL <199 [facility] Work Phone: [phone] Comment on above: The drugs N-Acetylcy steine and Metamizole may falsely depress this assay.Serum Triglycerides Reference Interval Normal <150 mg/dL Borderline high 150 - 199 mg/dL High 200 - 499 mg/dL Very High > or = 500 mg/dL Direct bilirubinon Bilirubin.direct [Mass/Vol] 0.21 mg/dL 0.00-0.30 [facility] Work Phone: Hemoglobin in reticulocytes (mass per reticulocyte)on 12-28-2021 Hemoglobin (Reticulocytes) [Entitic mass] 24.6 pg 30-35 [facility] Work Phone: [phone] Laboratory - Chemistry and C hemistry - challengeon 12-28-2021 Free T4 [Mass/Vol] 1.23 ng/dL 0.76-1.46 [facility] Work Phone: [phone] No Panel Informationon 12-28 Immature Platelet Fraction See comment 1.0-7.9 [facility] Work Phone: Comment on above: Severe anemia.Clinic al correlation necessary.Ronald Chen M.D. 12/29/21Low PLT + Low IPF suggest a bone marrow production disorderLow PLT + high IPF suggests peripheral destruction(e.g.ITP, TTP, HIT, DIC, autoimmune) or bone marrow recoveryTrending of serial IPF measurements is recommended when evaluating for bone marrow responesValue above normal range indicates an increase in RBC cellular response from bone marrow. Immature Reticulocyte Fraction 36.70 % 3.00-15.90 [facility] Work Phone: [phone] Reticulocyte Count 3.74 % 0.5-1.5 [facility] Work Phone: [phone] Thyroid Stimulating Hormone (TSH) 4.53 uIU/mL 0.358-3.74 [facility] Work Phone: [phone] Serum or plasma cholesterol in HDL measurement (mass/volume)on 12-28-2021 Cholesterol in HDL [Mass/Vol] 36 mg/dL >40 [facility] Work Phone: Comment on above: The drugs N-Acetylcy steine and Metamizole may falsely depress this assay. Reference Range HDL <40 mg/dL Low HDL Cholesterol HDL >or= 60 mg/dL High HDL Cholesterol Serum or plasma cholesterol in VLDL measurement (mass/volume)on 12-28-2021 Cholesterol in VLDL [Mass/Vol] 30 mg/dL 5-40 [facility] Work Phone: Serum or plasma low density lipoprotein (LDL) cholesterol measurement (mass/volume)on 12-28-2021 Cholesterol in LDL [Mass/Vol] 56 mg/dL 0-130 [facility] Work Phone: Thin prep Papanicolaou smear with manual screeningon 12-28-2021 Thin prep Papanicolaou smear with manual screening 133 U/L 87-241 [facility] Work Phone: Basophil percentageon 2021 Basophil percentage 0 SEEN /hpf 0-5 [facility] Work Phone: Basophil percentage 4.5 mg/dL 2.5-4.9 [facility] Work Phone: Bilirubin Test strip Ql (U)o n 12-27-2021 Bilirubin Ql (U) Negative Negative [facility] Work Phone: Ketones Test strip Ql (U)on 12-27-2021 Ketones Ql (U) Negative Negative [facility] Work Phone: Laboratory - Chemistry and C hemistry - challengeon 12-27-2021 Magnesium [Mass/Vol] 1.8 mg/dL 1.6-2.6 [facility] Work Phone: Natriuretic peptide B (Bld) [Mass/Vol] 703.0 pg/mL 0-100 [facility] Work Phone: Laboratory - Microbiology an d Antimicrobial susceptibilityon 12-27-2021 Bacteria identified Cx Nom (Bld) No growth in 5 days. [facility] Work Phone: Mucus LM Ql (Urine sed)on Mucus Ql (Urine sed) 0 SEEN /hpf [facility] Work Phone: Nitrite Test strip Ql (U)on 12-27-2021 Nitrite Ql (U) Negative Negative [facility] Work Phone: No Panel Informationon 12-27 Troponin I High Sensitivity 16 pg/mL 3.0-78.0 [facility] Work Phone: Comment on above: Please Note: New [place] t Units and Gender Specific Reference Ranges. For more information see Policy Stat Procedure [place] High Sensitivity Troponin (TNIH) and attachments. Protein Test strip Ql (U)on 12-27-2021 Protein Ql (U) 500 mg/dl Negative [facility] Work Phone: Squamous epithelial cells de tection in urine sediment by light microscopyon 12-27-2021 Epithelial cells.squamous LM Ql (Urine sed) 0 SEEN /hpf 0-5 [facility] Work Phone: Urine blood detectionon RBC Ql (U) 25 /ul Negative [facility] Work Phone: RBC Ql (U) 0-5 SEEN /hpf 0-5 [facility] Work Phone: Urine clarityon 12-27-2021 Clarity (U) Clear Clear [facility] Work Phone: Urine color determinationon 12-27-2021 Color (U) Yellow Yellow [facility] Work Phone: Urine glucose detectionon Glucose Ql (U) Normal mg/dl Normal [facility] Work Phone: Urine leukocyte esterase det ection by dipstickon 12-27-2021 Leukocyte esterase Test strip Ql (U) Negative Negative [facility] Work Phone: Urine pHon 12-27-2021 pH (U) 6.0 [pH] 5.0 - 8.0 [facility] Work Phone: Urine sediment bacteria coun t by microscopy (number/high power field)on 12-27-2021 Bacteria LM.HPF (Urine sed) [#/Area] 0 /[HPF] None Seen [facility] Work Phone: Urine specific gravity measu rementon 12-27-2021 Specific gravity (U) [Rel density] 1.020 1.002-1.030 [facility] Work Phone: Urobilinogen Auto test strip Ql (U)on 12-27-2021 Urobilinogen Ql (U) Normal mg/dl Normal [facility] Work Phone: Laboratory - Chemistry and C hemistry - challengeon 12-23-2021 Natriuretic peptide B (Bld) [Mass/Vol] 1216.5 pg/mL 0-100 [facility] Work Phone: Basophil percentageon 2021 Basophil percentage 4.0 mg/dL 2.5-4.9 [facility] Work Phone: Chloride [Moles/Vol] 108 mmol/L 98-107 [facility] Work Phone: Glucose [Mass/Vol] 168 mg/dL 74-106 [facility] Work Phone: Comment on above: Fasting Glucose resu lt greater than or equal to 126 mg/dL suggests DIABETES MELLITUS per A.D.A. criteria. Potassium [Moles/Vol] 3.9 mmol/L 3.5-5.1 [facility] Work Phone: Sodium [Moles/Vol] 139 mmol/L 136-145 [facility] Work Phone: Laboratory - Chemistry and C hemistry - challengeon 11-05-2021 CO2 [Moles/Vol] 25.0 mmol/L 21.0-32.0 [facility] Work Phone: Urea nitrogen/Creatinine [Mass ratio] 17.1 mg/mg 10-20 [facility] Work Phone: No Panel Informationon 11-05 Estimated GFR (MDRD) Amer 23 mL/min >60 [facility] Work Phone: Comment on above: GFR Calc Estimated GFR (MDRD) Non-Af Amer 19 mL/min >60 [facility] Work Phone: Comment on above: Non- GFR Calc Serum or plasma albumin joshua urement (mass/volume)on 11-05-2021 Albumin [Mass/Vol] 2.6 g/dL 3.2-5.0 [facility] Work Phone: Serum or plasma calcium joshua urement (mass/volume)on 11-05-2021 Calcium [Mass/Vol] 8.6 mg/dL 8.5-10.1 [facility] Work Phone: Serum or plasma creatinine m easurement (mass/volume)on 11-05-2021 Creatinine [Mass/Vol] 3.39 mg/dL 0.70-1.30 [facility] Work Phone: Comment on above: The validity of the calculated GFR & GFRAA in patients over 70 years has not been determined. Clinical correlation is essential. Serum or plasma urea nitroge n measurement (mass/volume)on 11-05-2021 Urea nitrogen [Mass/Vol] 58 mg/dL 7-18 [facility] Work Phone: Urine creatinine measurement (mass/volume)on 11-05-2021 Creatinine (U) [Mass/Vol] 79.30 mg/dL NO RANGE EST. [facility] Work Phone: Urine protein measurement (m ass/volume)on 11-05-2021 Protein (U) [Mass/Vol] 339.4 mg/dL 0.0-11.8 [facility] [facility] Work Phone: Urine protein/creatinine mas s ratioon 11-05-2021 Protein/Creatinine (U) [Mass ratio] 4280 mg/g CRE 0-200 [facility] Work Phone: Absolute lymphocyte counton 09-25-2021 Lymphocytes Auto (Unsp spec) [#/Vol] 0.40 10*3/uL 0.83-4.51 [facility] Work Phone: [phone] Basophil percentageon 2021 Basophils/100 WBC (Bld) 0.4 % 0-1 [facility] Work Phone: [phone] Bilirubin [Mass/Vol] 0.50 mg/dL 0.20-1.00 [facility]: Comment on above: For patients on eltr ombopag therapy, use of Dimension [place] TBIL is not recommended. Chloride [Moles/Vol] 111 mmol/L 98-107 [facility] Work Phone: Eosinophils/100 WBC (Bld) 0.9 % 0-5 [facility] Work Phone: Glucose [Mass/Vol] 305 mg/dL 74-106 [facility] Work Phone: Comment on above: Glucose result great er than or equal to 200 mg/dLsuggests DIABETES MELLITUS per A.D.A. criteria. Neutrophils (Bld) [#/Vol] 6.9 10*3/uL 2.0-7.7 [facility] Work Phone: Neutrophils/100 WBC (Bld) 89.3 % 47-70 [facility] Work Phone: Potassium [Moles/Vol] 4.6 mmol/L 3.5-5.1 [facility] Work Phone: Protein [Mass/Vol] 5.7 g/dL 6.4-8.2 [facility] Work Phone: Sodium [Moles/Vol] 140 mmol/L 136-145 [facility] Work Phone: WBC (Bld) [#/Vol] 7.8 10*3/uL 4.4-11.0 [facility] Work Phone: Blood erythrocytes count (nu mber/volume)on 09-25-2021 RBC (Bld) [#/Vol] 3.47 10*6/uL 4.6-6.2 [facility] Work Phone: Blood hemoglobin measurement (mass/volume)on 09-25-2021 Hemoglobin (Bld) [Mass/Vol] 10.3 g/dL 13.0-16.5 [facility] Work Phone: Blood lymphocytes/100 leukoc yteson 09-25-2021 Lymphocytes/100 WBC (Bld) 5.1 % 19-41 [facility] Work Phone: Blood manual differential co mment interpretation (narrative result)on 09-25-2021 Manual differential comment Luis Fernando (Bld) [Interp] See comment [facility] Comment on above: LYMPHOPENIA Blood monocytes/100 leukocyt eson 09-25-2021 Monocytes/100 WBC (Bld) 3.0 % 0-10 [facility] Work Phone: Blood platelet mean volumeon 09-25-2021 Platelet mean volume (Bld) [Entitic vol] 10.1 fL 6.2-12.0 [facility] Work Phone: Determination of erythrocyte mean corpuscular volume (MCV)on 09-25-2021 MCV (RBC) [Entitic vol] 93.1 fL 80-94 [facility] Work Phone: Hematocrit Auto (Bld) [Volum e fraction]on 09-25-2021 Hematocrit (Bld) [Volume fraction] 32.3 % 40-54 [facility] Work Phone: Laboratory - Chemistry and C hemistry - challengeon 09-25-2021 ALP [Catalytic activity/Vol] 60 U/L 45-117 [facility] Work Phone: ALT [Catalytic activity/Vol] 17 U/L 16-61 [facility] Work Phone: CO2 [Moles/Vol] 23.0 mmol/L 21.0-32.0 [facility] Work Phone: Globulin (S) [Mass/Vol] 3.6 g/dL 2.2-4.2 [facility] Work Phone: Urea nitrogen/Creatinine [Mass ratio] 18.2 mg/mg 10-20 [facility] Work Phone: Laboratory - Hematology and Cell countson 09-25-2021 Erythrocyte distribution width (RBC) [Entitic vol] 60.7 fL 35.1-43.9 [facility] Work Phone: [phone] Erythrocyte distribution width (RBC) [Ratio] 18.0 % 11.6-14.6 [facility] Work Phone: Immature granulocytes/100 WBC (Bld) 1.300 % 0.0-0.9 [facility] Work Phone: Comment on above: IG% - Immature Granu locytes (promyelocytes, myelocytes and metamyelocytes) > 1% indicates that a LEFT SHIFT is Present. MCH (RBC) [Entitic mass] 29.7 pg 27.0-32.0 [facility] Work Phone: Nucleated RBC/100 WBC (Bld) [Ratio] 0 % 0-5 [facility] Work Phone: MCHC Auto (RBC) [Mass/Vol]on 09-25-2021 MCHC (RBC) [Mass/Vol] 31.9 g/dL 32-36 [facility] Work Phone: Manual differential comment Luis Fernando (Bld) [Interp]on 09-25-2021 Differential Comment See comment [facility] Comment on above: LYMPHOPENIA Blood manual differential comment interpretation (narrative result) See comment [facility] No Panel Informationon 09-25 Estimated Creatinine Clearance Calc 24.65 ml/min [facility] Work Phone: Estimated GFR (MDRD) Amer 26 mL/min >60 [facility] Work Phone: Comment on above: GFR Calc Estimated GFR (MDRD) Non-Af Amer 21 mL/min >60 [facility] Work Phone: Comment on above: Non- GFR Calc Parathyroid Hormone (Intact) 137.5 pg/mL High 18.4-80.1 [facility] 137.5 pg/mL High 18.4-80.1 [facility] Platelets bldon 09-25-2021 Platelets (Bld) [#/Vol] 257 10*3/uL 150-450 [facility] Work Phone: Serum or plasma albumin joshua urement (mass/volume)on 09-25-2021 Albumin [Mass/Vol] 2.1 g/dL 3.2-5.0 [facility] Work Phone: Serum or plasma albumin/glob ulin mass ratioon 09-25-2021 Albumin/Globulin [Mass ratio] 0.6 {ratio} 0.9-2.4 [facility] Work Phone: [phone] Serum or plasma calcium joshua urement (mass/volume)on 09-25-2021 Calcium [Mass/Vol] 8.2 mg/dL 8.5-10.1 [facility] Work Phone: [phone] Serum or plasma creatinine m easurement (mass/volume)on 09-25-2021 Creatinine [Mass/Vol] 3.14 mg/dL 0.70-1.30 [facility] Work Phone: Comment on above: The validity of the calculated GFR & GFRAA in patients over 70 years has not been determined. Clinical correlation is essential. Serum or plasma urea nitroge n measurement (mass/volume)on 09-25-2021 Urea nitrogen [Mass/Vol] 57 mg/dL 7-18 [facility] Work Phone: Thin prep Papanicolaou smear with manual screeningon 09-25-2021 Thin prep Papanicolaou smear with manual screening 13 U/L 15-37 [facility] Work Phone: [phone] Thin prep Papanicolaou smear with manual screening 6 5-15 [facility] Work Phone: Thin prep Papanicolaou smear with manual screening 232 U/L 87-241 [facility] Work Phone: [phone] Urine creatinine measurement (mass/volume)on 08-26-2021 Creatinine (U) [Mass/Vol] 56.20 mg/dL NO RANGE EST. [facility] Work Phone: [phone] Urine protein measurement (m ass/volume)on 08-26-2021 Protein (U) [Mass/Vol] 469.4 mg/dL 0.0-11.8 [facility] Work Phone: Urine protein/creatinine mas s ratioon 08-26-2021 Protein/Creatinine (U) [Mass ratio] 8352 mg/g CRE 0-200 [facility] Work Phone: Basophil percentageon 2021 Basophil percentage 0-5 SEEN /hpf 0-5 [facility] Bilirubin Test strip Ql (U)o n 07-31-2021 Bilirubin Ql (U) Negative Negative [facility] Blood platelet adequacy dete ction by light microscopyon 07-31-2021 Platelets LM Ql (Bld) ADEQUATE ADEQ [facility] Work Phone: Clarity (U)on 07-31-2021 Urine clarity Clear Clear [facility] Color (U)on 07-31-2021 Urine color determination Yellow Yellow [facility] Epithelial cells.squamous LM Ql (Urine sed)on 07-31-2021 Epithelial cells.squamous LM.HPF (Urine sed) [#/Area] 0 /[HPF] 0-5 [facility] Glucose Ql (U)on 07-31-2021 Glucose (U) [Mass/Vol] 50 mg/dL High Normal [facility] Urine glucose detection 50 mg/dl High Normal [facility] Ketones Test strip Ql (U)on 07-31-2021 Ketones Ql (U) Negative Negative [facility] Laboratory - Hematology and Cell countson 07-31-2021 Anisocytosis Ql (Bld) RARE [facility] Work Phone: Mucus LM Ql (Urine sed)on Mucus Ql (Urine sed) 0 SEEN /hpf [facility] Nitrite Test strip Ql (U)on 07-31-2021 Nitrite Ql (U) Negative Negative [facility] Protein Test strip Ql (U)on 07-31-2021 Protein Ql (U) 500 mg/dl High Negative [facility] Urine protein assay by test strip, semi-quantitative 500 mg/dl High Negative [facility] RBC Ql (U)on 07-31-2021 Urine Occult Blood 10 /ul High Negative [facility] Urine RBC 0 SEEN /hpf 0-5 [facility] 10 /ul High Negative [facility] RBC morphologyon 07-31-2021 RBC morphology finding Nom (Bld) N CHROM NORMAL NORM C&C [facility] RBC morphology finding Nom ( Bld)on 07-31-2021 Red Blood Cell Morphology N CHROM NORMAL NORM C&C [facility] RBC morphology N CHROM NORMAL NORM C&C [facility] Specific gravity (U) [Rel de nsity]on 07-31-2021 Urine specific gravity measurement 1.015 1.002-1.030 [facility] Squamous epithelial cells de tection in urine sediment by light microscopyon 07-31-2021 Epithelial cells.squamous LM Ql (Urine sed) 0 SEEN /hpf 0-5 [facility] Squamous epithelial cells detection in urine sediment by light microscopy 0 SEEN /hpf [facility] Trichomonas screening teston 07-31-2021 Urine WBC 0-5 SEEN /hpf 0-5 [facility] Trichomonas screening test 0-5 SEEN /hpf 0-5 [facility] Urine blood detectionon RBC Ql (U) 10 /ul High Negative [facility] RBC Ql (U) 0 SEEN /hpf 0-5 [facility] Urine clarityon 07-31-2021 Clarity (U) Clear Clear [facility] Urine color determinationon 07-31-2021 Color (U) Yellow Yellow [facility] Urine glucose detectionon Glucose Ql (U) 50 mg/dl High Normal [facility] Urine leukocyte esterase det ection by dipstickon 07-31-2021 Leukocyte esterase Test strip Ql (U) Negative Negative [facility] Urine pHon 07-31-2021 pH (U) 6.0 [pH] 5.0 - 8.0 [facility] Urine sediment bacteria coun t by microscopy (number/high power field)on 07-31-2021 Bacteria LM.HPF (Urine sed) [#/Area] 0 /[HPF] None Seen [facility] Urine specific gravity measu rementon 07-31-2021 Specific gravity (U) [Rel density] 1.015 1.002-1.030 [facility] Urine total bilirubin detect ion by test stripon 07-31-2021 Urine total bilirubin detection by test strip Negative Negative [facility] Urobilinogen Auto test strip Ql (U)on 07-31-2021 Urine Urobilinogen Normal mg/dl Normal [facility] Urobilinogen Ql (U) Normal mg/dl Normal [facility] Urine urobilinogen detection by automated test strip Normal mg/dl Normal [facility] pH (U)on 07-31-2021 Urine pH 6.0 5.0 - 8.0 [facility] 24 hour urine albumin/total protein ratio by electrophoresis (mass fraction)on 07-04-2021 Albumin Elph (24H U) [Mass fraction] 69.6 % . [facility] 24 hour urine alpha 1 globul in/total protein ratio by electrophoresis (mass fraction)on 07-04-2021 Alpha 1 globulin Elph (24H U) [Mass fraction] 1.4 % . [facility] 24 hour urine alpha 2 globul in/total protein ratio by electrophoresis (mass fraction)on 07-04-2021 Alpha 2 globulin Elph (24H U) [Mass fraction] 7.8 % . [facility] 24 hour urine creatinine graham surement (mass/time)on 07-04-2021 Creatinine (24H U) [Mass/Time] 1.10 g/24 HR 0.90-2.10 [facility] 24 hour urine protein measur ement (mass/time)on 07-04-2021 Protein (24H U) [Mass/Time] 55130 mg/24 hr High 30-150 [facility] 24 hour urine protein monocl onal measurement by electrophoresis (mass/time)on 07-04-2021 Protein.monoclonal Elph (24H U) [Mass/Time] TNP [facility] Comment on above: Test not performed Albumin Elph (24H U) [Mass f raction]on 07-04-2021 Urine Albumin 69.6 % . [facility] 24 hour urine albumin/total protein ratio by electrophoresis (mass fraction) 69.6 % . [facility] Alpha 1 globulin Elph (24H U ) [Mass fraction]on 07-04-2021 Urine [id number] 1.4 % . [facility] 24 hour urine alpha 1 globulin/total protein ratio by electrophoresis (mass fraction) 1.4 % . [facility] Alpha 2 globulin Elph (24H U ) [Mass fraction]on 07-04-2021 Urine [id number] 7.8 % . [facility] 24 hour urine alpha 2 globulin/total protein ratio by electrophoresis (mass fraction) 7.8 % . [facility] Beta globulin Elph (U) [Mass /Vol]on 07-04-2021 Urine Beta Globulin 13.5 % . [facility] Urine beta globulin measurement by electrophoresis (mass/volume) 13.5 % . [facility] Collection duration (U)on Urine Collection Duration 24.0 HOURS 24.0-24.0 [facility] Urine Collection Time 24.0 HOURS 24.0-24.0 [facility] 24.0 HOURS 24.0-24.0 [facility] Creatinine (24H U) [Mass/John e]on 07-04-2021 Urine Creatinine 24 Hour 1.10 g/24 HR 0.90-2.10 [facility] 24 hour urine creatinine measurement (mass/time) 1.10 g/24 HR 0.90-2.10 [facility] Creatinine (U) [Mass/Vol]on 07-04-2021 Urine creatinine measurement (mass/volume) 39.70 mg/dL NO RANGE EST. [facility] Gamma globulin Elph (U) [Mas s/Vol]on 07-04-2021 Urine Gamma Globulin 7.7 % . [facility] Urine gamma globulin measurement by electrophoresis (mass/volume) 7.7 % . [facility] [employer] mix RAST testo n 07-04-2021 Urine Immunofixation Comment . [facility] Comment on above: No monoclonality det ected. [employer] mix RAST test Comment . [facility] Laboratory - Specimen inform ationon 07-04-2021 Collection duration (U) 24.0 HOURS 24.0-24.0 [facility] No Panel Informationon 07-04 Timed Urine Volume 2775 mL [facility] Urine Immunofixation PEP Note Comment . [facility] Comment on above: Protein electrophore sis scan will follow via computer,mail, or senior mortgage underwriter delivery.Performed at: [address] [id number] Director: Piter Harrington PhD, Phone: [phone] 2775 mL [facility] Protein (24H U) [Mass/Time]o n 07-04-2021 Urine Total Protein 24 Hour 83201 mg/24 hr High 30-150 [facility] 24 hour urine protein measurement (mass/time) 07009 mg/24 hr High 30-150 [facility] Protein (U) [Mass/Vol]on Urine protein measurement (mass/volume) 417.1 mg/dL Not Estab. [facility] Protein.monoclonal Elph (24H U) [Mass/Time]on 07-04-2021 Ur Protein Electro M-Murphy 24 Hr TNP [facility] Comment on above: Test not performed 24 hour urine protein monoclonal [facility] Protein.monoclonal Elph (U) [Mass fraction]on 07-04-2021 Ur Protein Electrophoresis M-Murphy Not Observed % Not Observed [facility] Urine monoclonal protein/total protein mass ratio by electrophoresis Not Observed % Not Observed [facility] Specimen volume (U)on 2020 Urine Total Volume 2.80 L [facility] Urine volume measurement 2.80 L [facility] Thin prep Papanicolaou smear with manual screeningon 07-04-2021 Thin prep Papanicolaou smear with manual screening Comment . [facility] Comment on above: No monoclonality det ected. Urine beta globulin measurem ent by electrophoresis (mass/volume)on 07-04-2021 Beta globulin Elph (U) [Mass/Vol] 13.5 % . [facility] Urine creatinine measurement (mass/volume)on 07-04-2021 Creatinine (U) [Mass/Vol] 39.70 mg/dL NO RANGE EST. [facility] Urine gamma globulin measure ment by electrophoresis (mass/volume)on 07-04-2021 Gamma globulin Elph (U) [Mass/Vol] 7.7 % . [facility] Urine monoclonal protein/tot al protein mass ratio by electrophoresison 07-04-2021 Protein.monoclonal Elph (U) [Mass fraction] Not Observed % Not Observed [facility] Urine protein measurement (m ass/volume)on 07-04-2021 Protein (U) [Mass/Vol] 417.1 mg/dL Not Estab. [facility] Comment on above: Results confirmed on dilution. Urine volume measurementon 1 09-04-2020 Specimen volume (U) 2.80 L [facility] Basophil percentageon 2020 Basophil percentage 3.5 mg/dL 2.5-4.9 [facility] Work Phone: Laboratory - Chemistry and C hemistry - challengeon 07-02-2021 Cobalamin (Vitamin B12) [Mass/Vol] 573 pg/mL [facility] Magnesium [Mass/Vol] 2.2 mg/dL 1.6-2.6 [facility] No Panel Informationon 07-02 2.2 mg/dL 1.6-2.6 [facility] 573 pg/mL [facility] Hyaline casts LM.LPF (Urine sed) [#/Area]on 06-05-2021 Hyaline casts (Urine sed) [#/Area] 0 /[LPF] 0-5 [facility] Hyaline casts LM Ql (Urine sed) 0-5 SEEN /lpf 0-5 [facility] Urine sediment hyaline cast count by microscopy (number/low power field) 0-5 SEEN /lpf 0-5 [facility] No Panel Informationon 06-05 Thyroid Stimulating Hormone (TSH) 3.23 uIU/mL 0.358-3.74 [facility] Work Phone: Laboratory - Chemistry and C hemistry - challengeon 05-22-2021 Free T4 [Mass/Vol] 1.07 ng/dL 0.76-1.46 [facility] Work Phone: C. difficile DNA TRICIA+probe Q l (Unsp spec)on 02-10-2021 C. difficile DNA Amplification [facility] Clostridioides difficile nuc leic acid assay by PCRon 02-10-2021 C. difficile DNA TRICIA+probe Ql (Unsp spec) [facility] EP Panelon 02-10-2021 Gastrointestinal pathogens panel TRICIA+probe (Stl) [facility] Gastrointestinal pathogens p richard TRICIA+probe (Stl)on 02-10-2021 Enteric Bacteriology [facility] Lactoferrin IA Ql (Stl)on Stool Lactoferrin [facility] Stool lactoferrin detection by immunoassayon 02-10-2021 Lactoferrin IA Ql (Stl) [facility] Serum or plasma uric acid me asurement (mass/volume)on 07-15-2021 Urate [Mass/Vol] 6.8 mg/dL 3.5-7.2 [facility] Comment on above: The drugs N-Acetylcy steine and Metamizole may falsely depress this assay. Urate [Mass/Vol]on 1 Serum or plasma uric acid measurement (mass/volume) 6.8 mg/dL 3.5-7.2 [facility] HbA1c (Bld) [Mass fraction]o n 12-07-2019 Whole blood hemoglobin A1c/total hemoglobin ratio (mass fraction) 8.0 % High 4.2-6.3 [facility] Whole blood hemoglobin A1c/t otal hemoglobin ratio (mass fraction)on 12-07-2019 HbA1c (Bld) [Mass fraction] 8.0 % High 4.2-6.3 [facility] Cortisol [Mass/Vol]on 2019 Cortisol 12.80 ug/dL 3.-. [facility] Comment on above: Adult (AM) 4.30 - 22 .40 ug/dL Adult (PM) 3.09 - 16.66 ug/dL Serum or plasma cortisol measurement (mass/volume) 12.80 ug/dL 3.04-16. [facility] Laboratory - Chemistry and C hemistry - challengeon 08-17-2019 Natriuretic peptide B (Bld) [Mass/Vol] 353.0 pg/mL [facility] 0-100 [facility] No Panel Informationon 08-17 Adrenocorticotropic Hormone 56.3 pg/mL 7.2-63.3 [facility] Comment on above: ACTH reference inter hayde for samples collected between 7 and10 AM.Performed at: - [facility] [id number] Director: Piter Harrington PhD, Phone: [phone] 353.0 pg/mL [facility] 0-100 [facility] 56.3 pg/mL 7.2-63.3 [facility] Serum or plasma cortisol graham surement (mass/volume)on 08-17-2019 Cortisol [Mass/Vol] 12.80 ug/dL 3.-22.40 [facility] Comment on above: Adult (AM) 4.30 - 22 .40 ug/dL Adult (PM) 3.09 - 16.66 ug/dL Culture, urine Bacteria identified Cx Nom (U) Positive [facility] Work Phone: Laboratory - Microbiology an d Antimicrobial susceptibility Bacteria identified Cx Nom (Bld) No growth in 5 days. [facility] Work Phone: No Panel Information SARS-CoV-2 & FLU Antigen (Rapid) [facility] Work Phone: Vital Signs Date Time Vital Sign Value Performing Clinician Facility 01-11-2025 11:53-0400 Body temperature 97.5 [degF] Diamond Lincoln MD Work Phone: [facility] 01-11-2025 11:53-0400 Diastolic blood pressure 72 mm[Hg] Diamond Lincoln MD Work Phone: [phone] [place] [address] 01-11-2025 11:53-0400 Heart rate 58 /min Diamond Lincoln MD Work Phone: [facility] 01-11-2025 11:53-0400 Respiratory rate 20 /min Diamond Lincoln MD Work Phone: [facility] 01-11-2025 11:53-0400 SaO2% (BldA) [Mass fraction] 98 % Diamond Lincoln MD Work Phone: [facility] 01-11-2025 11:53-0400 Systolic blood pressure 172 mm[Hg] Diamond Lincoln MD Work Phone: [facility] 01-10-2025 06:37-0400 Body mass index (BMI) [Ratio] 31.74 kg/m2 Diamond Lincoln MD Work Phone: [facility] 01-10-2025 06:37-0400 Body weight 106.19 kg Diamond Lincoln MD Work Phone: [facility] 01-09-2025 05:22-0400 Body height 182.9 cm Diamond Lincoln MD Work Phone: [facility] 01-09-2025 04:00-0400 Diastolic blood pressure 87 mm[Hg] Isabella Cruz MD Work Phone: [facility] 01-09-2025 04:00-0400 Heart rate 77 /min Isabella Cruz MD Work Phone: [facility] 01-09-2025 04:00-0400 Respiratory rate 23 /min Isabella Cruz MD Work Phone: [facility] 01-09-2025 04:00-0400 SaO2% (BldA) [Mass fraction] 92 % Isabella Cruz MD Work Phone: [facility] 01-09-2025 04:00-0400 Systolic blood pressure 175 mm[Hg] Isabella Cruz MD Work Phone: [facility] 01-08-2025 21:36-0400 Body temperature 97.39 [degF] Isabella Cruz MD Work Phone: [facility] 01-08-2025 21:32-0400 Body height 182.9 cm Isabella Cruz MD Work Phone: [facility] 01-08-2025 19:00-0400 Diastolic blood pressure 86 mm[Hg] Dr. Sam Del Toro DO Work Phone: [facility] 01-08-2025 19:00-0400 Heart rate 69 /min Dr. Sam Del Toro DO Work Phone: [facility] 01-08-2025 19:00-0400 Respiratory rate 20 /min Dr. Sam Del Toro DO Work Phone: [facility] 01-08-2025 19:00-0400 SaO2% (BldA) [Mass fraction] 94 % Dr. Sam Del Toro DO Work Phone: [facility] 01-08-2025 19:00-0400 Systolic blood pressure 166 mm[Hg] Dr. Sam Del Toro DO Work Phone: [facility] 01-08-2025 16:38-0400 Body temperature 98.1 [degF] Dr. Sam Del Toro DO Work Phone: [facility] 01-08-2025 09:29-0400 Body height 180.[address] Sam Del Toro DO Work Phone: [facility] 01-08-2025 09:29-0400 Body mass index (BMI) [Ratio] 34 kg/m2 Dr. Sam Del Toro DO Work Phone: [facility] 01-08-2025 09:29-0400 Body weight 110.[address] Sam Del Toro DO Work Phone: [facility] 12-29-2024 09:02-0400 Body mass index (BMI) [Ratio] 31.6 kg/m2 Andrea Farris MD, PhD Work Phone: [facility] 12-29-2024 09:02-0400 Body temperature 97.9 [degF] Andrea Farris MD, PhD Work Phone: [facility] 12-29-2024 09:02-0400 Body weight 105.69 kg Andrea Farris MD, PhD Work Phone: [facility] 12-29-2024 09:02-0400 Diastolic blood pressure 69 mm[Hg] Andrea Farris MD, PhD Work Phone: [facility] 12-29-2024 09:02-0400 Heart rate 84 /min Andrea Farris MD, PhD Work Phone: [facility] 12-29-2024 09:02-0400 Respiratory rate 16 /min Andrea Farris MD, PhD Work Phone: [facility] 12-29-2024 09:02-0400 SaO2% (BldA) [Mass fraction] 96 % Andrea Farris MD, PhD Work Phone: [facility] 12-29-2024 09:02-0400 Systolic blood pressure 148 mm[Hg] Andrea Farris MD, PhD Work Phone: [phone] 12-28-2024 08:54-0400 Body mass index (BMI) [Ratio] 31.6 kg/m2 Andrea Farris MD, PhD Work Phone: [phone] [place] [address] 12-28-2024 08:54-0400 Body temperature 98.2 [degF] Andrea Farris MD, PhD Work Phone: 9(720)[phone] [place] [address] 12-28-2024 08:54-0400 Body weight 105.69 kg Andrea Farris MD, PhD Work Phone: 5(981)[phone] [place] [address] 12-28-2024 08:54-0400 Diastolic blood pressure 70 mm[Hg] Andrea Farris MD, PhD Work Phone: 0(459)951-655757 [place] [address] 12-28-2024 08:54-0400 Heart rate 85 /min Andrea Farris MD, PhD Work Phone: 2(760)708-253757 [place] [address] 12-28-2024 08:54-0400 Respiratory rate 16 /min Andrea Farris MD, PhD Work Phone: 2(266)566-984657 [place] [address] 12-28-2024 08:54-0400 SaO2% (BldA) [Mass fraction] 95 % Andrea Farris MD, PhD Work Phone: 7(911)307-375557 [place] [address] 12-28-2024 08:54-0400 Systolic blood pressure 136 mm[Hg] Andrea Farris MD, PhD Work Phone: 5(885)931-140912 [address] 12-27-2024 09:35-0400 Body mass index (BMI) [Ratio] 31.6 kg/m2 Andrea Farris MD, PhD Work Phone: 0(567)255-506312 [address] 12-27-2024 09:35-0400 Body temperature 97.2 [degF] Andrea Farris MD, PhD Work Phone: 9(492)039-660357 [place] [address] 12-27-2024 09:35-0400 Body weight 105.69 kg Andrea Farris MD, PhD Work Phone: 7(170)352-798857 [place] [address] Comment on above: pt stated this was his last weight from day before in chart 12-27-2024 09:35-0400 Diastolic blood pressure 84 mm[Hg] Andrea Farris MD, PhD Work Phone: 1(031)887-712057 [place] [address] 12-27-2024 09:35-0400 Heart rate 70 /min Andrea Farris MD, PhD Work Phone: 3(999)204-453657 [place] [address] 12-27-2024 09:35-0400 Respiratory rate 16 /min Andrea Farris MD, PhD Work Phone: 4(833)[phone] [place] [address] 12-27-2024 09:35-0400 SaO2% (BldA) [Mass fraction] 97 % Andrea Farris MD, PhD Work Phone: 6(007)057-130057 [place] [address] 12-27-2024 09:35-0400 Systolic blood pressure 176 mm[Hg] Andrea Farris MD, PhD Work Phone: 2(458)854-966957 [place] [address] 12-26-2024 10:08-0400 Body mass index (BMI) [Ratio] 31.64 kg/m2 Andrea Farris MD, PhD Work Phone: 8(722)633-594057 [place] [address] 12-26-2024 10:08-0400 Body temperature 97.7 [degF] Andrea Farris MD, PhD Work Phone: 9(642)[phone] [place] [address] 12-26-2024 10:08-0400 Body weight 105.82 kg Andrea aFrris MD, PhD Work Phone: [facility] 12-26-2024 10:08-0400 Diastolic blood pressure 78 mm[Hg] Andrea Farris MD, PhD Work Phone: [facility] 12-26-2024 10:08-0400 Heart rate 67 /min Andrea Farris MD, PhD Work Phone: [facility] 12-26-2024 10:08-0400 Respiratory rate 16 /min Andrea Farris MD, PhD Work Phone: [facility] 12-26-2024 10:08-0400 SaO2% (BldA) [Mass fraction] 96 % Andrea Farris MD, PhD Work Phone: [facility] 12-26-2024 10:08-0400 Systolic blood pressure 168 mm[Hg] Andrea Farris MD, PhD Work Phone: [facility] 12-25-2024 08:24-0400 Body temperature 97.9 [degF] Andrea Farris MD, PhD Work Phone: [facility] 12-25-2024 08:24-0400 Diastolic blood pressure 76 mm[Hg] Andrea Farris MD, PhD Work Phone: [facility] 12-25-2024 08:24-0400 Heart rate 72 /min Andrea Farris MD, PhD Work Phone: [facility] 12-25-2024 08:24-0400 Respiratory rate 18 /min Andrea Farris MD, PhD Work Phone: [facility] 12-25-2024 08:24-0400 SaO2% (BldA) [Mass fraction] 98 % Andrea Farris MD, PhD Work Phone: [facility] 12-25-2024 08:24-0400 Systolic blood pressure 164 mm[Hg] Andrea Farris MD, PhD Work Phone: [facility] 11-30-2024 11:11-0400 Body temperature 97 [degF] Andrea Farris MD, PhD Work Phone: [facility] 11-30-2024 11:11-0400 Diastolic blood pressure 86 mm[Hg] Andrea Farris MD, PhD Work Phone: [facility] 11-30-2024 11:11-0400 Heart rate 73 /min Andrea Farris MD, PhD Work Phone: [facility] 11-30-2024 11:11-0400 Respiratory rate 16 /min Andrea Farris MD, PhD Work Phone: [facility] 11-30-2024 11:11-0400 SaO2% (BldA) [Mass fraction] 95 % Andrea Farris MD, PhD Work Phone: [facility] 11-30-2024 11:11-0400 Systolic blood pressure 175 mm[Hg] Andrea Farris MD, PhD Work Phone: [facility] 11-30-2024 11:01-0400 Diastolic blood pressure 86 mm[Hg] Tiarra Fiore MD Work Phone: [facility] 11-30-2024 11:01-0400 Systolic blood pressure 175 mm[Hg] Tiarra Fiore MD Work Phone: [facility] 11-30-2024 10:58-0400 Body temperature 97 [degF] Tiarra Fiore MD Work Phone: [facility] 11-30-2024 10:58-0400 Heart rate 73 /min Tiarra Fiore MD Work Phone: [facility] 11-30-2024 10:58-0400 Respiratory rate 16 /min Tiarra Fiore MD Work Phone: [facility] 11-30-2024 10:58-0400 SaO2% (BldA) [Mass fraction] 95 % Tiarra Fiore MD Work Phone: [facility] 11-23-2024 17:18-0400 Body height 182.9 cm Tiarra Fiore MD Work Phone: [facility] 11-23-2024 17:18-0400 Diastolic blood pressure 79 mm[Hg] Tiarra Fiore MD Work Phone: [facility] 11-23-2024 17:18-0400 Systolic blood pressure 177 mm[Hg] Tiarra Fiore MD Work Phone: [facility] 11-23-2024 14:03-0400 Body temperature 97.59 [degF] Tiarra Fiore MD Work Phone: [facility] 11-23-2024 14:03-0400 Diastolic blood pressure 76 mm[Hg] Tiarra Fiore MD Work Phone: [facility] 11-23-2024 14:03-0400 Heart rate 72 /min Tiarra Fiore MD Work Phone: [facility] 11-23-2024 14:03-0400 Respiratory rate 16 /min Tiarra Fiore MD Work Phone: [facility] 11-23-2024 14:03-0400 SaO2% (BldA) [Mass fraction] 95 % Tiarra Fiore MD Work Phone: [facility] 11-23-2024 14:03-0400 Systolic blood pressure 172 mm[Hg] Tiarra Fiore MD Work Phone: [facility] 11-20-2024 22:04-0400 Body temperature 98.3 [degF] Dr. Sam Del Toro DO Work Phone: [facility] 11-20-2024 22:04-0400 Diastolic blood pressure 78 mm[Hg] Dr. Sam Del Toro DO Work Phone: [facility] 11-20-2024 22:04-0400 Heart rate 89 /min Dr. Sam Del Toro DO Work Phone: [facility] 11-20-2024 22:04-0400 Respiratory rate 16 /min Dr. Sam Del Toro DO Work Phone: [facility] 11-20-2024 22:04-0400 SaO2% (BldA) [Mass fraction] 96 % Dr. Sam Del Toro DO Work Phone: [facility] 11-20-2024 22:04-0400 Systolic blood pressure 132 mm[Hg] Dr. Sam Del Toro DO Work Phone: [facility] 11-20-2024 11:06-0400 Body height 180.[address] Sam Del Toro DO Work Phone: [facility] 11-20-2024 11:06-0400 Body mass index (BMI) [Ratio] 32.6 kg/m2 Dr. Sam Del Toro DO Work Phone: [facility] 11-20-2024 11:06-0400 Body weight 106.[address] Sam Del Toro DO Work Phone: [facility] 11-20-2024 10:16-0400 Body mass index (BMI) [Ratio] 33.2 kg/m2 Dr. Sam Del Toro DO Work Phone: [facility] 11-20-2024 10:16-0400 Body temperature 98.3 [degF] Dr. Sam Del Toro DO Work Phone: [facility] 11-20-2024 10:16-0400 Body weight 107.[address] Sam Del Toro DO Work Phone: [facility] 11-20-2024 10:16-0400 Diastolic blood pressure 77 mm[Hg] Dr. Sam Del Toro DO Work Phone: [facility] 11-20-2024 10:16-0400 Heart rate 78 /min Dr. Sam Del Toro DO Work Phone: [facility] 11-20-2024 10:16-0400 Respiratory rate 18 /min Dr. Sam Del Toro DO Work Phone: [facility] 11-20-2024 10:16-0400 SaO2% (BldA) [Mass fraction] 98 % Dr. Sam Del Toro DO Work Phone: [facility] 11-20-2024 10:16-0400 Systolic blood pressure 156 mm[Hg] Dr. Sam Del Toro DO Work Phone: [facility] 11-09-2024 11:47-0400 Heart rate 84 /min Dr. Sam Del Toro DO Work Phone: [facility] 11-09-2024 11:47-0400 Respiratory rate 16 /min Dr. Sam Del Toro DO Work Phone: [facility] 11-09-2024 11:47-0400 SaO2% (BldA) [Mass fraction] 96 % Dr. Sam Del Toro DO Work Phone: [facility] 11-09-2024 10:27-0400 Body mass index (BMI) [Ratio] 33.2 kg/m2 Dr. Sam Del Toro DO Work Phone: [facility] 11-09-2024 10:27-0400 Body weight [address] Sam Del Toro DO Work Phone: [facility] 11-09-2024 09:47-0400 Body height 180.[address] Sam Del Toro DO Work Phone: [facility] 11-09-2024 09:47-0400 Body temperature 98.1 [degF] Dr. Sam Del Toro DO Work Phone: [facility] 11-09-2024 09:47-0400 Diastolic blood pressure 77 mm[Hg] Dr. Sam Del Toro DO Work Phone: [facility] 11-09-2024 09:47-0400 Systolic blood pressure 180 mm[Hg] Dr. Sam Del Toro DO Work Phone: [facility] 11-09-2024 05:44-0400 Body temperature 97.9 [degF] Dr. Sam Del Toro DO Work Phone: [facility] 11-09-2024 05:44-0400 Diastolic blood pressure 85 mm[Hg] Dr. Sam Del Toro DO Work Phone: [facility] 11-09-2024 05:44-0400 Heart rate 74 /min Dr. Sam Del Toro DO Work Phone: [facility] 11-09-2024 05:44-0400 Respiratory rate 20 /min Dr. Sam Del Toro DO Work Phone: [facility] 11-09-2024 05:44-0400 SaO2% (BldA) [Mass fraction] 94 % Dr. Sam Del Toro DO Work Phone: [facility] 11-09-2024 05:44-0400 Systolic blood pressure 185 mm[Hg] Dr. Sam Del Toro DO Work Phone: [facility] 11-09-2024 01:45-0400 Body height 180.[address] Sam Del Toro DO Work Phone: [facility] 11-09-2024 01:45-0400 Body mass index (BMI) [Ratio] 33.5 kg/m2 Dr. Sam Del Toro DO Work Phone: [facility] 11-09-2024 01:45-0400 Body weight 109.[address] Sam Del Toro DO Work Phone: [facility] 10-23-2024 09:01-0400 Body mass index (BMI) [Ratio] 33.6 kg/m2 Dr. Sam Del Toro DO Work Phone: [facility] 10-23-2024 09:01-0400 Body temperature 98.1 [degF] Dr. Sam Del Toro DO Work Phone: [facility] 10-23-2024 09:01-0400 Body weight 109.[address] Sam Del Toro DO Work Phone: [facility] 10-23-2024 09:01-0400 Diastolic blood pressure 72 mm[Hg] Dr. Sam Del Toro DO Work Phone: [facility] 10-23-2024 09:01-0400 Heart rate 70 /min Dr. Sam Del Toro DO Work Phone: [facility] 10-23-2024 09:01-0400 Respiratory rate 18 /min Dr. Sam Del Toro DO Work Phone: [facility] 10-23-2024 09:01-0400 SaO2% (BldA) [Mass fraction] 98 % Dr. Sam Del Toro DO Work Phone: [facility] 10-23-2024 09:01-0400 Systolic blood pressure 162 mm[Hg] Dr. Sam Del Toro DO Work Phone: [facility] 10-10-2024 13:43-0400 Body height 180.[address] Sam Del Toro DO Work Phone: [facility] 10-10-2024 13:43-0400 Body mass index (BMI) [Ratio] 33.6 kg/m2 Dr. Sam Del Toro DO Work Phone: [facility] 10-10-2024 13:43-0400 Body temperature 98.2 [degF] Dr. Sam Del Toro DO Work Phone: [facility] 10-10-2024 13:43-0400 Body weight 109.[address] Sam Del Toro DO Work Phone: [facility] 10-10-2024 13:43-0400 Diastolic blood pressure 77 mm[Hg] Dr. Sam Del Toro DO Work Phone: [facility] 10-10-2024 13:43-0400 Heart rate 69 /min Dr. Sam Del Toro DO Work Phone: [facility] 10-10-2024 13:43-0400 Respiratory rate 18 /min Dr. Sam Del Toro DO Work Phone: [facility] 10-10-2024 13:43-0400 SaO2% (BldA) [Mass fraction] 95 % Dr. Sam Del Toro DO Work Phone: [facility] 10-10-2024 13:43-0400 Systolic blood pressure 146 mm[Hg] Dr. Sam Del Toro DO Work Phone: [facility] 10-04-2024 13:02-0400 Body temperature 97.8 [degF] Dr. Sam Del Toro DO Work Phone: [facility] 10-04-2024 13:02-0400 Diastolic blood pressure 68 mm[Hg] Dr. Sam Del Toro DO Work Phone: [facility] 10-04-2024 13:02-0400 Heart rate 80 /min Dr. Sam Del Toro DO Work Phone: [facility] 10-04-2024 13:02-0400 Respiratory rate 18 /min Dr. Sam Del Toro DO Work Phone: [facility] 10-04-2024 13:02-0400 SaO2% (BldA) [Mass fraction] 96 % Dr. Sam Del Toro DO Work Phone: [facility] 10-04-2024 13:02-0400 Systolic blood pressure 165 mm[Hg] Dr. Sam Del Toro DO Work Phone: [facility] 10-04-2024 07:12-0400 Body height 180.[address] Sam Del Toro DO Work Phone: [facility] 10-04-2024 07:12-0400 Body mass index (BMI) [Ratio] 33.6 kg/m2 Dr. Sam Del Toro DO Work Phone: [facility] 10-04-2024 07:12-0400 Body weight 109.[address] Sam Del Toro DO Work Phone: [facility] 09-12-2024 14:06-0500 Body mass index (BMI) [Ratio] 34.3 kg/m2 Dr. Sam Del Toro DO Work Phone: [facility] 09-12-2024 14:06-0500 Body temperature 97.6 [degF] Dr. Sam Del Toro DO Work Phone: [facility] 09-12-2024 14:06-0500 Body weight 108.[address] Sam Del Toro DO Work Phone: [facility] 09-12-2024 14:06-0500 Diastolic blood pressure 68 mm[Hg] Dr. Sam Del Toro DO Work Phone: [facility] 09-12-2024 14:06-0500 Heart rate 68 /min Dr. Sam Del Toro DO Work Phone: [facility] 09-12-2024 14:06-0500 Respiratory rate 18 /min Dr. Sam Del Toro DO Work Phone: [facility] 09-12-2024 14:06-0500 SaO2% (BldA) [Mass fraction] 96 % Dr. Sam Del Toro DO Work Phone: [facility] 09-12-2024 14:06-0500 Systolic blood pressure 137 mm[Hg] Dr. Sam Del Toro DO Work Phone: [facility] 08-15-2024 12:58-0500 Body mass index (BMI) [Ratio] 34.6 kg/m2 Dr. Sam Del Toro DO Work Phone: [facility] 08-15-2024 12:58-0500 Body temperature 97.7 [degF] Dr. Sam Del Toro DO Work Phone: [facility] 08-15-2024 12:58-0500 Body weight 109.[address] Sam Del Toro DO Work Phone: [facility] 08-15-2024 12:58-0500 Diastolic blood pressure 60 mm[Hg] Dr. Sam Del Toro DO Work Phone: [facility] 08-15-2024 12:58-0500 Heart rate 67 /min Dr. Sam Del Toro DO Work Phone: [facility] 08-15-2024 12:58-0500 Respiratory rate 18 /min Dr. Sam Del Toro DO Work Phone: [facility] 08-15-2024 12:58-0500 SaO2% (BldA) [Mass fraction] 96 % Dr. Sam Del Toro DO Work Phone: [facility] 08-15-2024 12:58-0500 Systolic blood pressure 137 mm[Hg] Dr. Sam Del Toro DO Work Phone: [facility] 08-15-2024 09:49-0500 Body mass index (BMI) [Ratio] 34.4 kg/m2 Dr. Sam Del Toro DO Work Phone: [facility] 08-15-2024 09:49-0500 Body weight 108.[address] Sam Del Toro DO Work Phone: [facility] 08-15-2024 09:49-0500 Diastolic blood pressure 63 mm[Hg] Dr. Sam Del Toro DO Work Phone: [facility] 08-15-2024 09:49-0500 Heart rate 73 /min Dr. Sam Del Toro DO Work Phone: [facility] 08-15-2024 09:49-0500 Respiratory rate 18 /min Dr. Sam Del Toro DO Work Phone: [facility] 08-15-2024 09:49-0500 Systolic blood pressure 112 mm[Hg] Dr. Sam Del Toro DO Work Phone: [facility] 07-13-2024 09:14-0500 Body mass index (BMI) [Ratio] 34.4 kg/m2 Dr. Sam Del Toro DO Work Phone: [facility] 07-13-2024 09:14-0500 Body temperature 98.2 [degF] Dr. Sam Del Toro DO Work Phone: [facility] 07-13-2024 09:14-0500 Body weight 108.[address] Sam Del Toro DO Work Phone: [facility] 07-13-2024 09:14-0500 Diastolic blood pressure 65 mm[Hg] Dr. Sam Del Toro DO Work Phone: [facility] 07-13-2024 09:14-0500 Heart rate 73 /min Dr. Sam Del Toro DO Work Phone: [facility] 07-13-2024 09:14-0500 Respiratory rate 14 /min Dr. Sam Del Toro DO Work Phone: [facility] 07-13-2024 09:14-0500 SaO2% (BldA) [Mass fraction] 95 % Dr. Sam Del Toro DO Work Phone: [facility] 07-13-2024 09:14-0500 Systolic blood pressure 124 mm[Hg] Dr. Sam Del Toro DO Work Phone: [facility] 07-04-2024 08:27-0500 Body mass index (BMI) [Ratio] 34.6 kg/m2 Dr. Sam Del Toro DO Work Phone: [facility] 07-04-2024 08:27-0500 Body temperature 98.3 [degF] Dr. Sam Del Toro DO Work Phone: [facility] 07-04-2024 08:27-0500 Body weight 109.[address] Sam Del Toro DO Work Phone: [facility] 07-04-2024 08:27-0500 Diastolic blood pressure 78 mm[Hg] Dr. Sam Del Toro DO Work Phone: [facility] 07-04-2024 08:27-0500 Heart rate 90 /min Dr. Sam Del Toro DO Work Phone: [facility] 07-04-2024 08:27-0500 Respiratory rate 18 /min Dr. Sam Del Toro DO Work Phone: [facility] 07-04-2024 08:27-0500 SaO2% (BldA) [Mass fraction] 97 % Dr. Sam Del Toro DO Work Phone: [facility] 07-04-2024 08:27-0500 Systolic blood pressure 118 mm[Hg] Dr. Sam Del Toro DO Work Phone: [facility] 06-07-2024 10:06-0500 Body mass index (BMI) [Ratio] 35.2 kg/m2 Dr. Sam Del Toro DO Work Phone: [facility] 06-07-2024 10:06-0500 Body temperature 97.8 [degF] Dr. Sam Del Toro DO Work Phone: [facility] 06-07-2024 10:06-0500 Body weight 111.[address] Sam Del Toro DO Work Phone: [facility] 06-07-2024 10:06-0500 Diastolic blood pressure 65 mm[Hg] Dr. Sam Del Toro DO Work Phone: [facility] 06-07-2024 10:06-0500 Heart rate 70 /min Dr. Sam Del Toro DO Work Phone: [facility] 06-07-2024 10:06-0500 Respiratory rate 16 /min Dr. Sam Del Toro DO Work Phone: [facility] 06-07-2024 10:06-0500 SaO2% (BldA) [Mass fraction] 97 % Dr. Sam Del Toro DO Work Phone: [facility] 06-07-2024 10:06-0500 Systolic blood pressure 143 mm[Hg] Dr. Sam Del Toro DO Work Phone: [facility] 09-28-2023 15:00-0500 Body height 180.[address] Sam Del Toro Work Phone: [facility] 09-28-2023 15:00-0500 Body mass index (BMI) [Ratio] 36.6 kg/m2 Dr. Sam Del Toro Work Phone: [facility] 09-28-2023 15:00-0500 Body temperature 98 [degF] Dr. Sam Del Toro Work Phone: [facility] 09-28-2023 15:00-0500 Body weight 118.[address] Sam Del Toro Work Phone: [facility] 09-28-2023 15:00-0500 Diastolic blood pressure 65 mm[Hg] Dr. Sam Del Toro Work Phone: [facility] 09-28-2023 15:00-0500 Heart rate 61 /min Dr. Sam Del Toro Work Phone: [facility] 09-28-2023 15:00-0500 Respiratory rate 18 /min Dr. Sam Del Toro Work Phone: [facility] 09-28-2023 15:00-0500 SaO2% (BldA) [Mass fraction] 95 % Dr. Sam Del Toro Work Phone: [facility] 09-28-2023 15:00-0500 Systolic blood pressure 145 mm[Hg] Dr. Sam Del Toro Work Phone: [facility] 10-09-2022 12:49-0400 Body height 180.[address] Sam Del Toro Work Phone: [facility] 10-09-2022 12:49-0400 Body mass index (BMI) [Ratio] 39.2 kg/m2 Dr. Sam Del Toro Work Phone: [facility] 10-09-2022 12:49-0400 Diastolic blood pressure 70 mm[Hg] Dr. Sam Del Toro Work Phone: [facility] 10-09-2022 12:49-0400 Systolic blood pressure 148 mm[Hg] Dr. Sam Del Toro Work Phone: [facility] 10-09-2022 09:48-0400 Body temperature 97.4 [degF] Dr. Sam Del Toro Work Phone: [facility] 10-09-2022 09:48-0400 Body weight [address] Sam Del Toro Work Phone: [facility] 10-09-2022 09:48-0400 Heart rate 66 /min Dr. Sam Del Toro Work Phone: [facility] 10-09-2022 09:48-0400 Respiratory rate 16 /min Dr. Sam Del Toro Work Phone: [facility] 10-09-2022 09:48-0400 SaO2% (BldA) [Mass fraction] 94 % Dr. Sam Del Toro Work Phone: [facility] 09-17-2022 13:50-0500 Body height 180.[address] Sam Del Toro Work Phone: [facility] 09-17-2022 13:50-0500 Body mass index (BMI) [Ratio] 38.7 kg/m2 Dr. Sam Del Toro Work Phone: [facility] 09-17-2022 13:50-0500 Body temperature 98.2 [degF] Dr. Sam Del Toro Work Phone: [facility] 09-17-2022 13:50-0500 Body weight 126.[address] Sam Del Toro Work Phone: [facility] 09-17-2022 13:50-0500 Diastolic blood pressure 73 mm[Hg] Dr. Sam Del Toro Work Phone: [facility] 09-17-2022 13:50-0500 Heart rate 64 /min Dr. Sam Del Toro Work Phone: [facility] 09-17-2022 13:50-0500 Respiratory rate 17 /min Dr. Sam Del Toro Work Phone: [facility] 09-17-2022 13:50-0500 SaO2% (BldA) [Mass fraction] 95 % Dr. Sam Del Troo Work Phone: [facility] 09-17-2022 13:50-0500 Systolic blood pressure 145 mm[Hg] Dr. Sam Del Toro Work Phone: [facility] 05-13-2022 14:46-0400 Body height 180.[address] Sam Del Toro Work Phone: [facility] 05-13-2022 14:38-0400 Body mass index (BMI) [Ratio] 38.2 kg/m2 Dr. Sam Del Toro Work Phone: [facility] 05-13-2022 14:38-0400 Body temperature 97.8 [degF] Dr. Sam Del Toro Work Phone: [facility] 05-13-2022 14:38-0400 Body weight 124.[address] Sam Del Toro Work Phone: [facility] 05-13-2022 14:38-0400 Diastolic blood pressure 60 mm[Hg] Dr. Sam Del Toro Work Phone: [facility] 05-13-2022 14:38-0400 Heart rate 59 /min Dr. Sam Del Toro Work Phone: [facility] 05-13-2022 14:38-0400 Respiratory rate 16 /min Dr. Sam Del Toro Work Phone: [facility] 05-13-2022 14:38-0400 SaO2% (BldA) [Mass fraction] 97 % Dr. Sam Del Toro Work Phone: [facility] 05-13-2022 14:38-0400 Systolic blood pressure 141 mm[Hg] Dr. Sam Del oTro Work Phone: [facility] 04-17-2022 10:21-0400 Body height 180.[address] aSm Del Toro Work Phone: [facility] Work Phone: 04-17-2022 10:21-0400 Body mass index (BMI) [Ratio] 37.5 kg/m2 Dr. Sam Del Toro Work Phone: [facility] Work Phone: 04-17-2022 08:40-0400 Body weight 122.[address] Sam Del Toro Work Phone: [facility] Work Phone: 04-17-2022 08:40-0400 Diastolic blood pressure 69 mm[Hg] Dr. Sam Del Toro Work Phone: [facility] Work Phone: 04-17-2022 08:40-0400 Heart rate 86 /min Dr. Sam Del Toro Work Phone: [facility] Work Phone: 04-17-2022 08:40-0400 Respiratory rate 16 /min Dr. Sam Del Toro Work Phone: [facility] Work Phone: 04-17-2022 08:40-0400 SaO2% (BldA) [Mass fraction] 99 % Dr. Sam Del Toro Work Phone: [facility] Work Phone: 04-17-2022 08:40-0400 Systolic blood pressure 114 mm[Hg] Dr. Sam Del Toro Work Phone: [facility] Work Phone: 03-23-2022 14:25-0400 Body mass index (BMI) [Ratio] 38.2 kg/m2 Dr. Sam Del Toro Work Phone: [facility] Work Phone: 03-23-2022 14:25-0400 Body temperature 98.6 [degF] Dr. Sam Del Toro Work Phone: [facility] Work Phone: 03-23-2022 14:25-0400 Body weight 124.[address] Sam Del Toro Work Phone: [facility] Work Phone: 03-23-2022 14:25-0400 Diastolic blood pressure 63 mm[Hg] Dr. Sam Del Toro Work Phone: [facility] Work Phone: 03-23-2022 14:25-0400 Heart rate 59 /min Dr. Sam Del Toro Work Phone: [facility] Work Phone: 03-23-2022 14:25-0400 Respiratory rate 15 /min Dr. Sam Del Toro Work Phone: [facility] Work Phone: 03-23-2022 14:25-0400 SaO2% (BldA) [Mass fraction] 97 % Dr. Sam Del Toro Work Phone: [facility] Work Phone: 03-23-2022 14:25-0400 Systolic blood pressure 140 mm[Hg] Dr. Sam Del Toro Work Phone: [facility] Work Phone: 02-25-2022 14:05-0400 Body temperature 97.6 [degF] Dr. Sam Del Toro Work Phone: [facility] Work Phone: 02-25-2022 14:05-0400 Diastolic blood pressure 55 mm[Hg] Dr. Sam Del Toro Work Phone: [facility] Work Phone: 02-25-2022 14:05-0400 Heart rate 60 /min Dr. Sam Del Toro Work Phone: [facility] Work Phone: 02-25-2022 14:05-0400 Respiratory rate 18 /min Dr. Sam Del Toro Work Phone: [facility] Work Phone: 02-25-2022 14:05-0400 SaO2% (BldA) [Mass fraction] 94 % Dr. Sam Del Toro Work Phone: [facility] Work Phone: 02-25-2022 14:05-0400 Systolic blood pressure 134 mm[Hg] Dr. Sam Del Toro Work Phone: [facility] Work Phone: 02-25-2022 09:54-0400 Body height 180.[address] Sam Del Toro Work Phone: [facility] Work Phone: 02-25-2022 09:54-0400 Body mass index (BMI) [Ratio] 37.8 kg/m2 Dr. Sam Del Toro Work Phone: [facility] Work Phone: 02-25-2022 09:54-0400 Body weight [address] Sam Del Toro Work Phone: [facility] Work Phone: 02-11-2022 14:24-0400 Body mass index (BMI) [Ratio] 38.3 kg/m2 Dr. Sam Del Toro Work Phone: [facility] Work Phone: 02-11-2022 14:24-0400 Body temperature 97.5 [degF] Dr. Sam Del Toro Work Phone: [facility] Work Phone: 02-11-2022 14:24-0400 Body weight 124.[address] Sam Del Toro Work Phone: [facility] Work Phone: 02-11-2022 14:24-0400 Diastolic blood pressure 72 mm[Hg] Dr. Sam Del Toro Work Phone: [facility] Work Phone: 02-11-2022 14:24-0400 Heart rate 67 /min Dr. Sam Del Toro Work Phone: [facility] Work Phone: 02-11-2022 14:24-0400 Respiratory rate 16 /min Dr. Sam Del Toro Work Phone: [facility] Work Phone: 02-11-2022 14:24-0400 SaO2% (BldA) [Mass fraction] 96 % Dr. Sam Del Toro Work Phone: [facility] Work Phone: 02-11-2022 14:24-0400 Systolic blood pressure 135 mm[Hg] Dr. Sam Del Toro Work Phone: [facility] Work Phone: 01-17-2022 13:47-0400 Body mass index (BMI) [Ratio] 42.4 kg/m2 Dr. Sam Del Toro Work Phone: [facility] Work Phone: 01-17-2022 13:47-0400 Body temperature 98.6 [degF] Dr. Sam Del Toro Work Phone: [facility] Work Phone: 01-17-2022 13:47-0400 Body weight 137.[address] Sam Del Toro Work Phone: [facility] Work Phone: 01-17-2022 13:47-0400 Diastolic blood pressure 64 mm[Hg] Dr. Sam Del Toro Work Phone: [facility] Work Phone: 01-17-2022 13:47-0400 Heart rate 76 /min Dr. Sam Del Toro Work Phone: [facility] Work Phone: 01-17-2022 13:47-0400 Respiratory rate 20 /min Dr. Sam Del Toro Work Phone: [facility] Work Phone: 01-17-2022 13:47-0400 SaO2% (BldA) [Mass fraction] 99 % Dr. Sam Del Toro Work Phone: [facility] Work Phone: 01-17-2022 13:47-0400 Systolic blood pressure 154 mm[Hg] Dr. Sam Del Toro Work Phone: [facility] Work Phone: 01-12-2022 08:52-0400 Body mass index (BMI) [Ratio] 42.4 kg/m2 Dr. Sam Del Toro Work Phone: [facility] Work Phone: 01-12-2022 08:52-0400 Body temperature 98.3 [degF] Dr. Sam Del Toro Work Phone: [facility] Work Phone: 01-12-2022 08:52-0400 Body weight [address] Sam Del Toro Work Phone: [facility] Work Phone: 01-12-2022 08:52-0400 Diastolic blood pressure 76 mm[Hg] Dr. Sam Del Toro Work Phone: [facility] Work Phone: 01-12-2022 08:52-0400 Heart rate 82 /min Dr. Sam Del Toro Work Phone: [facility] Work Phone: 01-12-2022 08:52-0400 Respiratory rate 15 /min Dr. Sam Del Toro Work Phone: [facility] Work Phone: 01-12-2022 08:52-0400 SaO2% (BldA) [Mass fraction] 98 % Dr. Sam Del Toro Work Phone: [facility] Work Phone: 01-12-2022 08:52-0400 Systolic blood pressure 151 mm[Hg] Dr. Sam Del Toro Work Phone: [facility] Work Phone: 01-06-2022 15:18-0400 Body temperature 98.6 [degF] Dr. Sam Del Toro Work Phone: [facility] Work Phone: 01-06-2022 15:18-0400 Diastolic blood pressure 70 mm[Hg] Dr. Sam Del Toro Work Phone: [facility] Work Phone: 01-06-2022 15:18-0400 Heart rate 68 /min Dr. Sam Del Toro Work Phone: [facility] Work Phone: 01-06-2022 15:18-0400 Respiratory rate 18 /min Dr. Sam Del Toro Work Phone: [facility] Work Phone: 01-06-2022 15:18-0400 SaO2% (BldA) [Mass fraction] 98 % Dr. Sam Del Toro Work Phone: [facility] Work Phone: 01-06-2022 15:18-0400 Systolic blood pressure 128 mm[Hg] Dr. Sam Del Toro Work Phone: [facility] Work Phone: 01-06-2022 05:00-0400 Body weight 133.[address] Sam Del Toro Work Phone: [facility] Work Phone: 01-05-2022 14:00-0400 Inhaled oxygen flow rate 2 L/min Dr. Sam Del Toro Work Phone: [facility] Work Phone: 01-03-2022 22:45-0400 Body mass index (BMI) [Ratio] 41.3 kg/m2 Dr. Sam Del Toro Work Phone: [facility] Work Phone: 01-03-2022 22:08-0400 Body temperature 97.5 [degF] Dr. Sam Del Toro Work Phone: [facility] Work Phone: 01-03-2022 22:08-0400 Diastolic blood pressure 84 mm[Hg] Dr. Sam Del Toro Work Phone: [facility] Work Phone: 01-03-2022 22:08-0400 Heart rate 72 /min Dr. Sam Del Toro Work Phone: [facility] Work Phone: 01-03-2022 22:08-0400 Respiratory rate 17 /min Dr. Sam Del Toro Work Phone: [facility] Work Phone: 01-03-2022 22:08-0400 SaO2% (BldA) [Mass fraction] 98 % Dr. Sam Del Toro Work Phone: [facility] Work Phone: 01-03-2022 22:08-0400 Systolic blood pressure 187 mm[Hg] Dr. Sam Del Toro Work Phone: [facility] Work Phone: 01-03-2022 11:35-0400 Body height 180.[address] Sam Del Toro Work Phone: [facility] Work Phone: 01-03-2022 11:35-0400 Body mass index (BMI) [Ratio] 40.4 kg/m2 Dr. Sam Del Toro Work Phone: [facility] Work Phone: 01-03-2022 11:35-0400 Body weight 131.[address] Sam Del Toro Work Phone: [facility] Work Phone: 01-01-2022 15:22-0400 SaO2% (BldA) [Mass fraction] 94 % Dr. Sam Del Toro Work Phone: [facility] Work Phone: 01-01-2022 15:21-0400 Body temperature 97.7 [degF] Dr. Sam Del Toro Work Phone: [facility] Work Phone: 01-01-2022 15:21-0400 Diastolic blood pressure 66 mm[Hg] Dr. Sam Del Toro Work Phone: [facility] Work Phone: 01-01-2022 15:21-0400 Heart rate 63 /min Dr. Sam Del Toro Work Phone: [facility] Work Phone: 01-01-2022 15:21-0400 Respiratory rate 16 /min Dr. Sam Del Toro Work Phone: [facility] Work Phone: 01-01-2022 15:21-0400 Systolic blood pressure 129 mm[Hg] Dr. Sam Del Toro Work Phone: [facility] Work Phone: 01-01-2022 10:23-0400 Inhaled oxygen flow rate 1 L/min Dr. Sam Del Toro Work Phone: [facility] Work Phone: 01-01-2022 06:45-0400 Body weight 136.[address] Sam Del Toro Work Phone: [facility] Work Phone: 12-31-2021 17:05-0400 Body height 180.[address] Sam Del Toro Work Phone: [facility] Work Phone: 12-27-2021 11:31-0400 Body mass index (BMI) [Ratio] 40.8 kg/m2 Dr. Sam Del Toro Work Phone: [facility] Work Phone: 11-07-2021 08:42-0400 Body mass index (BMI) [Ratio] 41.6 kg/m2 Dr. Sam Del Toro Work Phone: [facility] Work Phone: 11-07-2021 08:42-0400 Body weight 139.[address] Sam Del Toro Work Phone: [facility] Work Phone: 11-07-2021 08:42-0400 Diastolic blood pressure 75 mm[Hg] Dr. Sam Del Toro Work Phone: [facility] Work Phone: 11-07-2021 08:42-0400 Heart rate 70 /min Dr. Sam Del Toro Work Phone: [facility] Work Phone: 11-07-2021 08:42-0400 Respiratory rate 18 /min Dr. Sam Del Toro Work Phone: [facility] Work Phone: 11-07-2021 08:42-0400 SaO2% (BldA) [Mass fraction] 96 % Dr. Sam Del Toro Work Phone: [facility] Work Phone: 11-07-2021 08:42-0400 Systolic blood pressure 151 mm[Hg] Dr. Sam Del Toro Work Phone: [facility] Work Phone: 11-07-2021 08:42-0400 Body height 182.[address] Sam Del Toro Work Phone: [facility] Work Phone: 11-07-2021 08:42-0400 Body mass index (BMI) [Ratio] 41.6 kg/m2 Dr. Sam Del Toro Work Phone: [facility] Work Phone: 11-07-2021 08:42-0400 Body weight 139.[address] Sam Del Toro Work Phone: [facility] Work Phone: 11-07-2021 08:42-0400 Diastolic blood pressure 75 mm[Hg] Dr. Sam Del Toro Work Phone: [facility] Work Phone: 11-07-2021 08:42-0400 Heart rate 70 /min Dr. Sam Del Toro Work Phone: [facility] Work Phone: 11-07-2021 08:42-0400 Respiratory rate 18 /min Dr. Sam Del Toro Work Phone: [facility] Work Phone: 11-07-2021 08:42-0400 SaO2% (BldA) [Mass fraction] 96 % Dr. Sam Del Toro Work Phone: [facility] Work Phone: 11-07-2021 08:42-0400 Systolic blood pressure 151 mm[Hg] Dr. Sam Del Toro Work Phone: [facility] Work Phone: 10-08-2021 15:27-0400 Body mass index (BMI) [Ratio] 43.9 kg/m2 Dr. Sam Del Toro Work Phone: [facility] Work Phone: 10-08-2021 15:27-0400 Body temperature 98.8 [degF] Dr. Sam Del Toro Work Phone: [facility] Work Phone: 10-08-2021 15:27-0400 Body weight 147.[address] Sam Del Toro Work Phone: [facility] Work Phone: 10-08-2021 15:27-0400 Diastolic blood pressure 76 mm[Hg] Dr. Sam Del Toro Work Phone: [facility] Work Phone: 10-08-2021 15:27-0400 Heart rate 69 /min Dr. Sam Del Toro Work Phone: [facility] Work Phone: 10-08-2021 15:27-0400 Respiratory rate 15 /min Dr. Sam Del Toro Work Phone: [facility] Work Phone: 10-08-2021 15:27-0400 SaO2% (BldA) [Mass fraction] 95 % Dr. Sam Del Toro Work Phone: [facility] Work Phone: 10-08-2021 15:27-0400 Systolic blood pressure 162 mm[Hg] Dr. Sam Del Toro Work Phone: [facility] Work Phone: 09-25-2021 14:13-0500 Body mass index (BMI) [Ratio] 43.7 kg/m2 Dr. Sam Del Toro Work Phone: [facility] Work Phone: 09-25-2021 14:13-0500 Body temperature 98.2 [degF] Dr. Sam Del Toro Work Phone: [facility] Work Phone: 09-25-2021 14:13-0500 Body weight 146.[address] Sam Del Toro Work Phone: [facility] Work Phone: 09-25-2021 14:13-0500 Diastolic blood pressure 79 mm[Hg] Dr. Sam Del Toro Work Phone: [facility] Work Phone: 09-25-2021 14:13-0500 Heart rate 68 /min Dr. Sam Del Toro Work Phone: [facility] Work Phone: 09-25-2021 14:13-0500 Respiratory rate 15 /min Dr. Sam Del Toro Work Phone: [facility] Work Phone: 09-25-2021 14:13-0500 SaO2% (BldA) [Mass fraction] 96 % Dr. Sam Del Toro Work Phone: [facility] Work Phone: 09-25-2021 14:13-0500 Systolic blood pressure 173 mm[Hg] Dr. Sam Del Toro Work Phone: [facility] Work Phone: 08-28-2021 11:14-0500 Body mass index (BMI) [Ratio] 42.5 kg/m2 Dr. Sam Del Toro Work Phone: [facility] Work Phone: 08-28-2021 11:14-0500 Body temperature 98.3 [degF] Dr. Sam Del Toro Work Phone: [facility] Work Phone: 08-28-2021 11:14-0500 Body weight 142.[address] Sam Del Toro Work Phone: [facility] Work Phone: 08-28-2021 11:14-0500 Diastolic blood pressure 88 mm[Hg] Dr. Sam Del Toro Work Phone: [facility] Work Phone: 08-28-2021 11:14-0500 Heart rate 68 /min Dr. Sam Del Toro Work Phone: [facility] Work Phone: 08-28-2021 11:14-0500 Respiratory rate 16 /min Dr. Sam Del Toro Work Phone: [facility] Work Phone: 08-28-2021 11:14-0500 SaO2% (BldA) [Mass fraction] 96 % Dr. Sam Del Toro Work Phone: [facility] Work Phone: 08-28-2021 11:14-0500 Systolic blood pressure 180 mm[Hg] Dr. Sam Del Toro Work Phone: [facility] Work Phone: 08-14-2021 13:21-0500 Body mass index (BMI) [Ratio] 42 kg/m2 Dr. Sam Del Toro Work Phone: [facility] Work Phone: 08-14-2021 13:21-0500 Body temperature 98.6 [degF] Dr. Sam Del Toro Work Phone: [facility] Work Phone: 08-14-2021 13:21-0500 Body weight 140.[address] Sam Del Toro Work Phone: [facility] Work Phone: 08-14-2021 13:21-0500 Diastolic blood pressure 83 mm[Hg] Dr. Sam Del Toro Work Phone: [facility] Work Phone: 08-14-2021 13:21-0500 Heart rate 79 /min Dr. Sam Del Toro Work Phone: [facility] Work Phone: 08-14-2021 13:21-0500 Respiratory rate 15 /min Dr. Sam Del Toro Work Phone: [facility] Work Phone: 08-14-2021 13:21-0500 Systolic blood pressure 184 mm[Hg] Dr. Sam Del Toro Work Phone: [facility] Work Phone: 07-31-2021 14:17-0500 Body mass index (BMI) [Ratio] 40.6 kg/m2 Dr. Sam Del Toro Work Phone: [facility] Work Phone: 07-31-2021 14:17-0500 Body temperature 98.2 [degF] Dr. Sam Del Toro Work Phone: [facility] Work Phone: 07-31-2021 14:17-0500 Body weight 135.[address] Sam Del Toro Work Phone: [facility] Work Phone: 07-31-2021 14:17-0500 Diastolic blood pressure 83 mm[Hg] Dr. Sam Del Toro Work Phone: [facility] Work Phone: 07-31-2021 14:17-0500 Heart rate 56 /min Dr. Sam Del Toro Work Phone: [facility] Work Phone: 07-31-2021 14:17-0500 Respiratory rate 16 /min Dr. Sam Del Toro Work Phone: [facility] Work Phone: 07-31-2021 14:17-0500 SaO2% (BldA) [Mass fraction] 97 % Dr. Sam Del Toro Work Phone: [facility] Work Phone: 07-31-2021 14:17-0500 Systolic blood pressure 162 mm[Hg] Dr. Sam Del Toro Work Phone: [facility] Work Phone: 05-22-2021 14:18-0400 Diastolic blood pressure 65 mm[Hg] Dr. Sam Del Toro Work Phone: [facility] 05-22-2021 14:18-0400 Heart rate 74 /min Dr. Sam Del Toro Work Phone: [facility] 05-22-2021 14:18-0400 Respiratory rate 16 /min Dr. Sam Del Toro Work Phone: [facility] 05-22-2021 14:18-0400 SaO2% (BldA) [Mass fraction] 98 % Dr. Sam Del Toro Work Phone: [facility] 05-22-2021 14:18-0400 Systolic blood pressure 138 mm[Hg] Dr. Sam Del Toro Work Phone: [facility] 05-22-2021 13:37-0400 Body mass index (BMI) [Ratio] 41.8 kg/m2 Dr. Sam Del Toro Work Phone: [facility] 04-10-2021 16:20-0400 Body temperature 97.4 [degF] Dr. Sam Del Toro Work Phone: [facility] 01-09-2021 13:51-0400 Body weight 136.[address] Sam Del Toro Work Phone: 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 Sam Del Toro DO Work Phone: -Emergency Department Work Phone: Start: 01-08-2025 End: 01-08-2025 Emergency department patient visit Dr. Sam Del Toro DO Work Phone: [facility] Work Phone: Start: 12-29-2024 End: 12-29-2024 Clinical Support Encounter Andrea Farris MD, PhD Work Phone: Department of Radiation Oncology Comment on above: Metastatic cancer to spine (Primary Dx) Start: 12-29-2024 ambulatory SAM DEL TORO Facilit y:[facility] Start: 12-29-2024 End: 12-29-2024 Subsequent hospital visit by physician Andrea Farris MD, PhD Work Phone: Department of Radiation Oncology Comment on above: Arrived Start: 12-28-2024 End: 12-28-2024 Clinical Support Encounter Andrea Farris MD, PhD Work Phone: Department of Radiation Oncology Comment on above: Metastatic cancer to spine (Primary Dx) Start: 12-28-2024 ambulatory ANDREA FARRIS Facil ity:[facility] Start: 12-28-2024 End: 12-28-2024 Subsequent hospital visit by physician Andrea Farris MD, PhD Work Phone: Department of Radiation Oncology Comment on above: Arrived Start: 12-27-2024 End: 12-27-2024 Clinical Support Encounter Andrea Farris MD, PhD Work Phone: Department of Radiation Oncology Comment on above: Metastatic cancer to spine (Primary Dx) Start: 12-27-2024 ambulatory SAM DEL TORO Facilit y:[facility] Start: 12-27-2024 End: 12-27-2024 Subsequent hospital visit by physician Andrea Farris MD, PhD Work Phone: Department of Radiation Oncology Comment on above: Arrived Start: 12-26-2024 End: 12-27-2024 Clinical Support Encounter Andrea Farris MD, PhD Work Phone: Department of Radiation Oncology Comment on above: Metastatic cancer to spine (Primary Dx) Start: 12-26-2024 ambulatory SAM DEL TORO Facilit y:[facility] Start: 12-26-2024 End: 12-26-2024 Subsequent hospital visit by physician Andrea Farris MD, PhD Work Phone: Department of Radiation Oncology Comment on above: Arrived Start: 12-25-2024 End: 12-25-2024 Clinical Support Encounter Andrea Farris MD, PhD Work Phone: Department of Radiation Oncology Comment on above: Metastatic cancer to spine (Primary Dx) Start: 12-25-2024 ambulatory SAM DEL TORO Facilit y:[facility] Start: 12-25-2024 End: 12-25-2024 Subsequent hospital visit by physician Andrea Farris MD, PhD Work Phone: Department of Radiation Oncology Comment on above: Arrived Start: 12-05-2024 End: 12-05-2024 Patient encounter procedure Andrea Farris MD, PhD Work Phone: Department of Radiation Oncology at [facility] Comment on above: Metastatic cancer to spine (Primary Dx) Start: 12-05-2024 ambulatory ANDREA FARRIS Facil ity:[facility] Start: 12-05-2024 End: 12-05-2024 Subsequent hospital visit by physician Andrea Farris MD, PhD Work Phone: Department of Radiology Comment on above: Arrived Start: 11-30-2024 End: 11-30-2024 Office consultation new/estab patient 80 min Andrea Farris MD, PhD Work Phone: Division of Multispecialty at [facility] Comment on above: Metastatic cancer to spine (Primary Dx) Start: 11-30-2024 End: 12-01-2024 Office outpatient visit 15 minutes Tiarra Fiore MD Work Phone: Division of Neuro Surgery at [facility] Comment on above: Metastatic cancer to spine (Primary Dx) Start: 11-30-2024 ambulatory SAM DEL TORO Facilit y:[facility] Start: 11-23-2024 ambulatory SAM DEL TORO Facilit y:[facility] Start: 11-23-2024 End: 11-23-2024 Subsequent hospital visit by physician Tiarra Fiore MD Work Phone: [facility] Comment on above: Arrived Start: 11-23-2024 End: 11-24-2024 Office outpatient new 45 minutes Tiarra Fiore MD Work Phone: Division of Neuro Surgery at [facility] Comment on above: Metastatic cancer to spine (Primary Dx) Start: 11-23-2024 ambulatory SAM DEL TORO Facilit y:[facility] Start: 11-20-2024 End: 11-20-2024 Dr. Sam Del Toro DO Work Phone: -Emergency Department Work Phone: Start: 11-20-2024 End: 11-20-2024 Emergency department patient visit Dr. Sam Del Toro DO Work Phone: [facility] Work Phone: Start: 11-20-2024 End: 11-20-2024 Dr. Jeffrey Kuhn MD -[facility] Work Phone: Start: 11-20-2024 End: 11-20-2024 ambulatory Sam Del Toro Facility:[facility] [place] [place] Start: 11-14-2024 End: 11-14-[address] Sam Del Toro DO Work Phone: [facility] Work Phone: Start: 11-14-2024 End: 11-14-[address] Mo Esocbedo MD -Nuclear Medicine, [facility] Work Phone: Start: 11-14-2024 End: 11-14-2024 Dr. Mo Escobedo MD -Nuclear Medicine, [facility] Work Phone: Start: 11-14-2024 End: 11-14-2024 ambulatory Mo Escobedo Facility:[facility] Start: 11-09-2024 End: 11-09-2024 Dr. Sam Del Toro DO Work Phone: -Emergency Department Work Phone: Start: 11-09-2024 End: 11-09-2024 Emergency department patient visit Dr. Sam Del Toro DO Work Phone: [facility] Work Phone: Start: 11-09-2024 End: 11-09-2024 Dr. Sam Del Toro DO Work Phone: -Emergency Department Work Phone: Start: 11-09-2024 End: 11-09-2024 Emergency department patient visit Dr. Sam Del Toro DO Work Phone: -Emergency Department Work Phone: Start: 11-01-2024 ambulatory Mo Escobedo [facility] Start: 10-23-2024 End: 10-23-[address] Jeffrey Kuhn MD -[facility] Work Phone: Start: 10-23-2024 End: 10-23-2024 Dr. Jeffrey Kuhn MD -[facility] Work Phone: Start: 10-23-2024 End: 10-23-2024 ambulatory Sam Del Toro [facility] [place] [place] Start: 10-10-2024 End: 10-10-[address] Jeffrey Kuhn MD -[facility] Work Phone: Start: 10-10-2024 End: 10-10-2024 Dr. Jeffrey Kuhn MD -[facility] Work Phone: Start: 10-10-2024 End: 10-10-2024 ambulatory [facility] Facility:[facility] [place] [place] Start: 10-05-2024 Non-patient / Non-visit Dr. Denise BUSBY -[facility] Start: 10-05-2024 End: 10-05-[address] Sam Del Toro DO Work Phone: [facility] Work Phone: Start: 10-05-2024 End: 10-05-[address] Mitchel Pereira MD -Cardiovascular Services Work Phone: Start: 10-05-2024 End: 10-05-2024 Dr. Patrice Loja MD -[facility] Start: 10-05-2024 End: 10-05-[address] [facility] Start: 10-04-2024 End: 10-04-2024 Dr. Moody Rodriguez DO -Emergency Department Work Phone: Start: 10-04-2024 End: 10-04-2024 Emergency department patient visit Dr. Sam Del Toro DO Work Phone: -Emergency Department Work Phone: Start: 09-12-[address] Jeffrey Kuhn MD -[facility] Start: 09-12-2024 End: 09-12-[address] Mitchel Pereira MD -[facility] Work Phone: Start: 09-12-2024 End: 09-12-2024 Dr. Mitchel Pereira MD -[facility] Work Phone: Start: 09-12-2024 End: 09-12-[address] [facility] [place] [place] Start: 08-15-2024 End: 08-15-[address] Jeffrey Kuhn MD -[facility] Work Phone: Start: 08-15-2024 End: 08-15-2024 Dr. Jeffrey Kuhn MD -[facility] Work Phone: Start: 08-15-2024 End: 08-15-2024 ambulatory [facility] Facility:[facility] Start: 08-15-2024 End: 08-15-2024 Patient encounter procedure Jeremy Lin PLASTER HELPER-Aaron -[facility] Work Phone: Start: 08-15-2024 End: 08-15-2024 Jeremy Lin PLASTER HELPER-C -[facility] Work Phone: Start: 08-15-2024 End: 08-15-2024 ambulatory [facility] Facility:[facility] Start: 08-08-2024 ambulatory Patricekarl Loja Facility:[facility] Start: 08-08-2024 Non-patient / [facility] Start: 08-08-2024 Dr. Patrice Loja MD [facility] Start: 08-08-2024 End: 08-08-[address] Jeffrey Kuhn MD -Cardiovascular Services Work Phone: Start: 08-08-2024 End: 08-08-2024 Dr. Jeffrey Kuhn MD -Cardiovascular Serv ices Work Phone: Start: 08-08-2024 End: 08-08-2024 [facility] [facility] Facility:[facility] Start: 07-13-2024 End: 07-13-[address] Jeffrey Kuhn MD -[facility] Work Phone: Start: 07-13-2024 End: 07-13-2024 Dr. Jeffrey Kuhn MD -[facility] Work Phone: Start: 07-13-2024 End: 07-13-2024 ambulatory [facility] Facility:[facility] Start: 07-11-2024 ambulatory [facility] Start: 07-11-2024 Non-patient / Non-visit Dr. Denise BUSBY [facility] Start: 07-11-2024 End: 07-11-[address] Jeffrey Kuhn MD -Cardiovascular Services Work Phone: Start: 07-11-2024 End: 07-11-2024 ambulatory [facility] Facility:[facility] Start: 07-04-2024 End: 07-04-[address] Jeffrey Kuhn MD -[facility] Work Phone: Start: 07-04-2024 End: 07-04-2024 ambulatory [facility] Facility:[facility] Start: 06-07-2024 End: 06-07-[address] Jeffrey Kuhn MD -[facility] Work Phone: Start: 06-07-2024 End: 06-07-2024 ambulatory [facility] Facility:[facility] Start: 05-18-2024 ambulatory [facility] Facility: [facility] Start: 05-09-2024 End: 05-09-2024 ambulatory [facility] Facility:[facility] [place] [place] Start: 04-17-2024 End: 04-17-2024 ambulatory [facility] Facility:[facility] Start: 10-29-2023 End: 10-29-[address] Sam Del Toro Work Phone: [facility] Work Phone: Start: 10-29-2023 End: 10-29-[address] Sam Del Toro Work Phone: [facility] [place] [facility] Start: 09-28-[address] Sam Del Toro Work Phone: [facility] Start: 09-28-2023 End: 09-28-[address] Sam Del Toro Work Phone: [facility] Work Phone: Start: 09-21-2023 End: 09-21-2023 ambulatory [facility] Work Phone: Start: 09-21-2023 End: 09-21-2023 Patient encounter procedure [facility] Work Phone: Start: 10-21-2022 End: 10-21-[address] Sam Del Toro Work Phone: [facility] Work Phone: Start: 10-21-2022 End: 10-21-[address] Sam Del Toro Work Phone: [facility]-Pulmonary Services/Neurology Start: 10-09-2022 End: 10-09-[address] Sam Del Toro Work Phone: [facility] Start: 10-01-2022 End: 10-01-[address] Sam Del Toro Work Phone: [facility] Work Phone: Start: 10-01-2022 End: 10-01-[address] Sam Del Toro Work Phone: [facility]-Laboratory, [facility] Start: 09-17-[address] Sam Del Toro Work Phone: [facility] Start: 09-17-2022 End: 09-17-[address] Sam Del Toro Work Phone: [facility] Start: 09-14-2022 End: 09-14-[address] Sam Del Toro Work Phone: [facility] Work Phone: Start: 09-14-2022 End: 09-14-[address] Sam Del Toro Work Phone: [facility] Scan, [facility] Start: 09-07-2022 End: 09-07-[address] Sam Del Toro Work Phone: [facility] Work Phone: Start: 09-07-2022 End: 09-07-[address] [facility] Start: 08-05-2022 End: 08-05-[address] Sam Del Toro Work Phone: [facility] Work Phone: Start: 08-05-2022 End: 08-05-[address] [facility] Start: 07-29-2022 End: 07-29-[address] Sam Del Toro Work Phone: [facility] Start: 05-13-[address] Sam Del Toro Work Phone: [facility] Start: 05-13-2022 End: 05-13-[address] Sam Del Toro Work Phone: [facility] Start: 05-11-2022 End: 05-11-[address] Sam Del Toro Work Phone: [facility] Work Phone: Start: 05-11-2022 End: 05-11-[address] Sam Del Toro Work Phone: [facility] Start: 04-30-2022 End: 04-30-[address] Sam Del Toro Work Phone: [facility] Start: 04-25-2022 End: 04-25-[address] Sam Del Toro Work Phone: [facility] Work Phone: Start: 04-25-2022 End: 04-25-[address] [facility] Start: 04-21-2022 End: 04-21-[address] Sam Del Toro Work Phone: [facility] Work Phone: Start: 04-21-2022 End: 04-21-[address] Sam Del Toro [facility] Start: 04-17-2022 End: 04-17-[address] Sam Del Toro Work Phone: [facility] Start: 04-13-2022 End: 04-13-[address] Sam Del Toro Work Phone: [facility] Start: 03-23-2022 End: 03-23-[address] Sam Del Toro Work Phone: [facility] Start: 03-09-2022 End: 03-09-[address] Sam Del Toro Work Phone: [facility] Start: 03-05-2022 End: 03-05-[address] Sam Del Toro Work Phone: [facility] Start: 02-25-2022 Non-patient / Non-visit Dr. Carlee Del Toro Work Phone: [facility] Start: 02-25-2022 End: 02-25-2022 Admission to same day surgery center Dr[facility] Sam Del Tor[facility] Start: 02-11-2022 End: 02-11-[address] Sam Del Toro Work Phone: [facility] Start: 01-17-2022 End: 01-17-2022 Emergency department patient visit Dr. Sam Del Toro Work Phone: [facility]-Emergency Department Start: 01-12-[address] Sam Del Toro Work Phone: [facility] Start: 01-12-2022 End: 01-12-[address] Sam Del Toro Work Phone: [facility] Start: 01-06-2022 Non-patient / Non-visit Dr. Carlee Del Toro Work Phone: [facility] Start: 01-05-2022 Non-patient / Non-visit Dr. Carlee Del Toro Work Phone: [facility] Start: 01-05-2022 Non-patient / Non-visit Dr. Carlee Del Toro Work Phone: [facility] Start: 01-04-2022 Non-patient / Non-visit Dr. Carlee Del Toro Work Phone: [facility] Start: 01-03-2022 End: 01-06-2022 Evaluation and management of inpatient Dr. Sam Del Toro Work Phone: [facility]-Medical Surgical 3 Start: 01-01-2022 Non-patient / Non-visit Dr. Carlee Del Toro Work Phone: [facility] Start: 12-31-2021 Non-patient / Non-visit Dr. Carlee Del Toro Work Phone: [facility] Start: 12-31-2021 Non-patient / Non-visit Dr. Carlee Del Toro Work Phone: [facility] Start: 12-30-2021 Non-patient / Non-visit Dr. Carlee Del Toro Work Phone: [facility] Start: 12-30-2021 Non-patient / Non-visit Dr. Carlee Del Toro Work Phone: [facility] Start: 12-29-2021 Non-patient / Non-visit Dr. Carlee Del Toro Work Phone: [facility] Start: 12-29-2021 Non-patient / Non-visit Dr. Carlee Del Toro Work Phone: [facility] Start: 12-28-2021 Non-patient / Non-visit Dr. Carlee Del Toro Work Phone: [facility] Start: 12-28-2021 Non-patient / Non-visit Dr. Carlee Del Toro Work Phone: [facility] Start: 12-28-2021 Non-patient / Non-visit Dr. Carlee Del Toro Work Phone: [facility] Start: 12-27-2021 Non-patient / Non-visit Dr. Carlee Del Toro Work Phone: [facility] Start: 12-27-2021 End: 01-01-2022 Evaluation and management of inpatient Dr. Sam Del Toro Work Phone: [facility]-Progressive Care Unit Start: 12-23-2021 End: 12-23-[address] Sam Del Toro Work Phone: [facility]-Radiology, [facility] Start: 12-15-2021 Non-patient / Non-visit Dr. Carlee Del Toro Work Phone: [facility] Start: 12-15-2021 End: 12-15-[address] Sam Del Toro Work Phone: [facility]-Cardiovascular Services Start: 12-15-2021 Non-patient / Non-visit Dr. Carlee Del Toro Work Phone: [facility] Start: 12-10-2021 End: 12-10-[address] Sam Del Toro Work Phone: [facility] Start: 12-03-2021 Non-patient / Non-visit Dr. Carlee Del Toro Work Phone: [facility] Start: 12-03-2021 End: 12-03-[address] Sam Del Toro Work Phone: [facility]-Cardiovascular Services Start: 11-07-2021 End: 11-07-[address] Sam Del Toro Work Phone: [facility] Start: 11-05-2021 End: 11-05-[address] [facility] Start: 10-08-2021 End: 10-08-[address] Sam Del Toro Work Phone: [facility] Start: 10-02-2021 End: 10-02-[address] Sam Del Toro Work Phone: [facility] Start: 09-25-[address] Sam Del Toro Work Phone: [facility] Start: 09-25-2021 End: 09-25-[address] Sam Del Toro Work Phone: [facility] Start: 08-28-2021 End: 08-28-[address] Sam Del Toro Work Phone: [facility] Start: 08-26-2021 End: 08-26-[address] Sam Del Toro Work Phone: [facility]-Laboratory, Specimen Start: 08-14-2021 End: 08-14-[address] Sam Del Toro Work Phone: [facility] Start: 07-31-2021 End: 07-31-[address] Sam Del Toro Work Phone: [facility] Procedures Date Procedure Procedure Detail Performing Clinician Start: 01-11-2025 CARDIAC RHYTHM Other Ot her OT Start: 01-11-2025 Glucose measurement, blood Chris Tolbert MD Work Phone: Start: 01-11-2025 Glucose measurement, blood Chris Tolbert MD Work Phone: Start: 01-11-2025 Assay of magnesium Viridiana Barrow [employer] Work Phone: Start: 01-10-2025 Glucose measurement, blood Chris Tolbert MD Work Phone: Start: 01-10-2025 Glucose measurement, blood Chris Tolbert MD Work Phone: Start: 01-10-2025 Dup-scan xtr veins c omplete bilateral study Yoselin Hoffman PA-C Work Phone: Start: 01-10-2025 Glucose measurement, blood Chris Tlobert MD Work Phone: Start: 01-10-2025 Bilirubin direct Lisa Barrow [employer] Work Phone: Start: 01-09-2025 End: 01-09-2025 Glucose measurement, blood Chris webster MD Work Phone: Start: 01-09-2025 CT Abdomen and Pelvis Marci Hoffman PA-C Work Phone: Start: 01-09-2025 Glucose measurement, blood Chris Tolbert MD Work Phone: Start: 01-09-2025 GENERAL PROCEDURE Pascual Hale MD Work Phone: Start: 01-09-2025 Glucose measurement, blood Chris Tolbert MD Work Phone: Start: 01-09-2025 End: 01-09-2025 Glucose measurement, blood Chris webster MD Work Phone: Start: 01-09-2025 Hemodialysis Pascual cadet MD Work Phone: Start: 01-09-2025 Assay of magnesium Viridiana ra L Pushpa [employer] Work Phone: Start: 01-09-2025 CHRONIC HEPATITIS PANEL(DIALYSIS, ESRD, YONY) Pascual Hale MD Work Phone: Start: 01-09-2025 Hepatitis b surf ant ibody hbsab Pascual Hale MD Work Phone: Start: 01-09-2025 Iaad ia hepatitis b surface antigen Pascual Hale MD Work Phone: Start: 01-09-2025 Hemodialysis Pascual cadet MD Work Phone: Start: 01-09-2025 Glucose measurement, blood Chris Tolbert MD Work Phone: Start: 01-09-2025 Culture bct isol&prs mptv id isolate ea urine Lisa Barrow [employer] Work Phone: Start: 01-09-2025 EXTRA MICRO Lisa L K erins [employer] Work Phone: Start: 01-09-2025 URINALYSIS REFLEX TO CULTURE Lisa Barrow [employer] Work Phone: Start: 01-09-2025 End: 01-09-2025 Glucose measurement, blood Chris webster MD Work Phone: Start: 01-09-2025 Glucose measurement, blood Chris Tolbert MD Work Phone: Start: 01-09-2025 Glucose measurement, blood Lucien Thornton MD Work Phone: Start: 01-09-2025 End: 01-09-2025 Glucose measurement, blood Lucien braden MD Work Phone: Start: 01-09-2025 Glucose measurement, blood Lucien Thornton MD Work Phone: Start: 01-08-2025 End: 01-09-2025 Glucose measurement, blood Lucien braden MD Work Phone: Start: 01-08-2025 End: 01-08-2025 Bilirubin direct Ton Mayen MD Work Phone: Start: 01-08-2025 CBC AND ELECTRONIC DIFF Ton Mayen MD Work Phone: Start: 01-08-2025 Complete blood count with white cell differential, automated Ton Mayen MD Work Phone: Start: 01-08-2025 Gases blood ph direc t joshua xcpt pulse oximitry Ton Mayen MD Work Phone: Start: 01-08-2025 LACTATE, WHOLE BLOOD, SERIAL Ton Mayen MD Work Phone: Start: 01-08-2025 MANUAL DIFF Ton no MD Work Phone: Start: 01-08-2025 CHM 7 - ED Ton no MD Work Phone: Start: 01-08-2025 GOLD TOP TUBE Isabella tao MD Work Phone: Start: 01-08-2025 LAVENDER TOP TUBE Isabella Cruz MD Work Phone: Start: 01-08-2025 LT BLUE TOP TUBE Isabella Cruz MD Work Phone: Start: 01-08-2025 MINT GREEN TOP TUBE Cinthia Cruz MD Work Phone: Start: 01-08-2025 RAINBOW DRAW Isabella abbasi MD Work Phone: Start: 01-08-[address] Carlee Del Toro DO Work Phone: Start: 01-08-2025 Measurement of occul t blood in stool specimen using immunoassay Dr. Sam Del Toro DO Work Phone: Start: 01-08-2025 Dr. Sam medina DO Work Phone: Start: 01-08-2025 Urine microscopy: red cells Dr. Sam Del Toro DO Work Phone: Start: 01-08-2025 Urnls dip stick/tabl et reagent auto microscopy Dr. Sam Del Toro DO Work Phone: Start: 01-08-2025 CT angiography of ch est with contrast Dr. Sam Del Toro DO Work Phone: Start: 01-08-2025 Computed tomography of abdomen and pelvis with intravenous contrast Dr. Sam Del Toro DO Work Phone: Start: 01-08-2025 Blood count smear mc rscp w/mnl difrntl wbc count Dr. Sam Del Toro DO Work Phone: Start: 01-08-2025 Calculation of inter national normalized ratio Dr. Sam Del Toro DO Work Phone: Start: 01-08-[address] Sam Del Toro DO Work Phone: Start: 01-08-2025 Flow cytometry cell surf marker techl only 1st Dr. Sam Del Toro DO Work Phone: Start: 01-08-2025 Mean corpuscular hem oglobin concentration determination Dr. Sam Del Toro DO Work Phone: Start: 01-08-2025 Myelocyte percent differential count Dr. Sam Del Toro DO Work Phone: Start: 01-08-2025 Platelet mean volume determination Dr. Sam Del Toro DO Work Phone: Start: 01-08-2025 [address] se measurement Dr. Sam Del Toro DO Work Phone: Start: 12-29-2024 GENERAL PROCEDURE Casey Herman MD, PhD Work Phone: Start: 12-28-2024 RAD ONC ARIA FRACTIO N SUMMARY Other Other Start: 12-28-2024 GENERAL PROCEDURE Williams Farris MD, PhD Work Phone: Start: 12-27-2024 RAD ONC ARIA FRACTIO N SUMMARY Other Other Start: 12-27-2024 GENERAL PROCEDURE Williams Farris MD, PhD Work Phone: Start: 12-26-2024 RAD ONC ARIA FRACTIO N SUMMARY Other Other Start: 12-26-2024 GENERAL PROCEDURE Jessy Martins MD, DPhil Work Phone: Start: 12-25-2024 RAD ONC ARIA FRACTIO N SUMMARY Other Other Start: 12-25-2024 GENERAL PROCEDURE Williams Farris MD, PhD Work Phone: Start: 11-20-2024 Blood count smear mc rscp w/mnl difrntl wbc count Dr. Sam Del Toro DO Work Phone: Start: 11-20-[address] Sam Del Toro DO Work Phone: Start: 11-20-2024 Mean corpuscular hem oglobin concentration determination Dr. Sam Del Toro DO Work Phone: Start: 11-20-2024 Nucleated red blood cell count procedure Dr. Sam Del Toro DO Work Phone: Start: 11-20-2024 Platelet mean volume determination Dr. Sam Del Toro DO Work Phone: Start: 11-20-2024 MRI of cervical spin e with contrast Dr. Sam Del Toro DO Work Phone: Start: 11-20-2024 MRI of thoracic spin e with contrast Dr. Sam Del Toro DO Work Phone: Start: 11-20-2024 Blood count smear mc rscp w/mnl difrntl wbc count Dr. Sam Del Toro DO Work Phone: Start: 11-20-[address] Sam Del Toro DO Work Phone: Start: 11-20-2024 Mean corpuscular hem oglobin concentration determination Dr. Sam Del Toro DO Work Phone: Start: 11-20-2024 Nucleated red blood cell count procedure Dr. Sam Del Toro DO Work Phone: Start: 11-20-2024 Platelet mean volume determination Dr. Sam Del Toro DO Work Phone: Start: 11-14-2024 Radionuclide whole b hank bone study Dr. Sam Del Toro DO Work Phone: Start: 11-09-2024 Urine microscopy: red cells Dr. Sam Del Toro DO Work Phone: Start: 11-09-2024 Urnls dip stick/tabl et reagent auto microscopy Dr. Sam Del Toro DO Work Phone: Start: 11-09-2024 Blood count smear mc rscp w/mnl difrntl wbc count Dr. Sam Del Toro DO Work Phone: Start: 11-09-[address] Sam Del Toro DO Work Phone: Start: 11-09-2024 Mean corpuscular hem oglobin concentration determination Dr. Sam Del Toro DO Work Phone: Start: 11-09-2024 Nucleated red blood cell count procedure Dr. Sam Del Toro DO Work Phone: Start: 11-09-2024 Platelet mean volume determination Dr. Sam Del Toro DO Work Phone: Start: 11-09-2024 CT angiography of ch est with contrast Dr. Sam Del Toro DO Work Phone: Start: 11-09-2024 Blood count smear mc rscp w/mnl difrntl wbc count Dr. Sam Del Toro DO Work Phone: Start: 11-09-2024 D-dimer assay, quantitative Dr. Sam Del Toro DO Work Phone: Start: 11-09-[address] Sam Del Toro DO Work Phone: Start: 11-09-2024 Mean corpuscular hem oglobin concentration determination Dr. Sam Del Toro DO Work Phone: Start: 11-09-2024 Nucleated red blood cell count procedure Dr. Sam Del Toro DO Work Phone: Start: 11-09-2024 Platelet mean volume determination Dr. Sam Del Toro DO Work Phone: Start: 10-04-2024 Urine microscopy: red cells Dr. Sam Del Toro DO Work Phone: Start: 10-04-2024 Urnls dip stick/tabl et reagent auto microscopy Dr. Sam Del Toro DO Work Phone: Start: 10-04-2024 Computed tomography of abdomen and pelvis with intravenous contrast Dr. Sam Del Toro DO Work Phone: Start: 10-04-2024 Blood count smear [facility] w/mnl difrntl wbc count Dr. Sam Del Toro DO Work Phone: Start: 10-04-2024 Calculation of inter national normalized ratio Dr. Sam Del Toro DO Work Phone: Start: 10-04-[address] Sam Del Toro DO Work Phone: Start: 10-04-2024 Mean corpuscular hem oglobin concentration determination Dr. Sam Del Toro DO Work Phone: Start: 10-04-2024 Nucleated red blood cell count procedure Dr. Sam Del Toro DO Work Phone: Start: 10-04-2024 Platelet mean volume determination Dr. Sam Del Toro DO Work Phone: Start: 09-12-2024 Measurement of renal function Dr. Sam Del Toro DO Work Phone: Start: 07-04-[address] Sam Del Toro DO Work Phone: Start: 09-21-2023 CT of chest, abdomen and pelvis without contrast Start: 09-14-2022 CT of chest, abdomen and pelvis without contrast Dr. Sam Del Toro Work Phone: Start: 05-11-2022 CT of chest, abdomen and pelvis without contrast Dr. Sam Del Toro Work Phone: Start: 03-09-2022 CT of chest, abdomen and pelvis without contrast Dr. 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 Sam Del Toro Work Phone: Start: 02-25-2022 X-ray of radius and ulna Dr. Sam Del Toro Work Phone: Start: 01-17-2022 Plain chest X-ray Dr. Paulina Del Toro Work Phone: Start: 01-12-[address] Sam Del Toro DO Work Phone: Start: 01-03-2022 SARS-CoV-2 & FLU Ant igen (Rapid) Dr. Sam Del Toro Work Phone: Start: 01-03-2022 CT of abdomen and pe lvis without contrast Dr. Sam Del Toro Work Phone: Start: 12-29-[address] Sam Del Toro Work Phone: Start: 12-27-2021 Bacteria identified in Blood by Culture Dr. Sam Del Toro Work Phone: Start: 12-27-2021 End: 12-27-2021 Measurement of occult blood in stool specimen using immunoassay Dr. Sam Del Toro Work Phone: Start: 12-27-2021 Plain chest X-ray Dr. Paulina Del Toro Work Phone: Start: 12-27-2021 CT of chest, abdomen and pelvis without contrast Dr. Sam Del Toro Work Phone: Start: 12-23-2021 Plain chest X-ray Dr. Paulina Del Toro Work Phone: Start: 10-02-2021 CT of chest, abdomen and pelvis without contrast Dr. Sam Del Toro Work Phone: Start: 07-31-[address] Sam Del Toro DO Work Phone: Start: 07-04-2021 Allergen spec ige cr ude allergen extract each Dr. Sam Del Toro DO Work Phone: Start: 02-10-2021 [address] e detection Dr. Sam Del Toro DO Work Phone: Start: 02-10-[address] Yolanda Del Toro DO Work Phone: Start: 02-10-[address] Sam Del Toro DO Work Phone: Start: 02-10-[address] Paulina Del Toro DO Work Phone: Start: 02-10-[address] parasites identification [address] Sam Del Toro Work Phone: Start: 02-10-2021 Dr. Sam medina DO Work Phone: Bacteria identified in Blood by Culture Dr. Sam Del Toro Work Phone: Clostridium difficil e detection Dr. Sam Del Toro Work Phone: Clostridium difficil e detection Dr. Sam Del Toro Work Phone: Measurement of occul t blood in stool specimen using immunoassay Dr. Sam Del Toro Work Phone: [facility] OR parasites identification Dr. Sam Del Toro Work Phone: SARS-CoV-2 & FLU Ant igen (Rapid) Dr. Sam Del Toro Work Phone: Urine culture Dr. Sam willis Work Phone: Viral antigen assay Dr. Sam Del Toro Work Phone: Plan of Treatment Date Care Activity Detail Author Start: 2029 RSV VACCINE (1 - 1-dose 75+ series) RSV VACCINE (1 - 1-dose 75+ series) [facility] Start: 03-22-2025 End: 03-22-2025 Patient encounter procedure 03/22/2025 2:00 PM EDT Office Visit Division of [facility]ispecialty at [facility] [address] [place] [address] [id number] Andrea Farris MD, PhD [address] [place] [address] [phone] Division of Multispecialty at [facility] Start: 03-19-2025 End: 03-19-2025 Patient encounter procedure 03/19/2025 3:30 PM EDT Appointment [facility] [address] [phone] Andrea Farris MD, PhD [address] [place] [address] [phone] [facility] Start: 03-19-2025 End: 03-19-2025 Patient encounter procedure 03/19/2025 12:10 PM EDT Appointment Imaging [facility] [address] [place] [phone] Andrea Farris MD, PhD [address] [place] [address] [phone] Imaging [facility] Start: 03-19-2025 Subsequent hospital visit by physician 03/19/2025 12:10 PM EDT Hospital Encounter Imaging [facility] [address] [place] [phone] Andrea Farris MD, PhD [address] [place] [phone] Imaging [facility] Start: 03-19-2025 ambulatory Ambulatory Facility:[facility] Start: 01-19-2025 End: 01-19-2025 Patient encounter procedure 01/19/2025 1:30 PM EDT Office Visit Department of Radiation Oncology at [facility] [address] [facility] [place] [id number] Jenifer Rubin, [employer] DBA [address] [place] [address] [place] [address] Department of Radiation Oncology at [facility] Start: 01-08-2025 [facility] Start: 01-08-2025 [facility] Start: 01-08-2025 End: 01-08-2025 [facility] Start: 12-29-2024 End: 12-29-2024 Patient encounter procedure Department of Radiation Oncology Start: 12-28-2024 End: 12-28-2024 Patient encounter procedure Department of Radiation Oncology Start: 12-27-2024 End: 12-27-2024 Patient encounter procedure Department of Radiation Oncology Start: 12-26-2024 End: 12-26-2024 Patient encounter procedure Department of Radiation Oncology Start: 12-25-2024 End: 12-25-2024 Patient encounter procedure Department of Radiation Oncology Start: 12-05-2024 End: 12-05-2024 Patient encounter procedure Department of Radiology Start: 12-04-2024 Hepatitis B vaccination HEP B VACCINE (2 of 2 - CpG 2-dose series) [facility] Start: 11-30-2024 End: 11-30-2024 Patient encounter procedure Division of Neuro Surgery at [facility] Start: 11-23-2024 End: 11-22-2025 MR Brain WO and W contrast IV MRI BRAIN WITH AND WITHOUT CONTRAST Imaging STAT Metastatic cancer to spine Expected: 11/23/2024, Expires: 11/22/2025 [facility] Comment on above: Expected: 11/23/2024, Expires: Start: 11-23-2024 End: 11-22-2025 MR Lumbar spine WO and W contrast IV MRI SPINE LUMBAR WITH AND WITHOUT CONTRAST Imaging STAT Metastatic cancer to spine Expected: 11/23/2024, Expires: 11/22/2025 [facility] Comment on above: Expected: 11/23/2024, Expires: Start: 11-09-2024 [facility] Start: 11-09-2024 [facility] Start: 11-09-2024 [facility] Start: 11-09-2024 [facility] Start: 11-09-2024 Chemotherapy care management [facility] Start: 10-04-2024 [facility] Start: 03-26-2024 COVID-19 VACCINE ( season) COVID-19 VACCINE () [facility] Start: 02-25-2022 Patient discharge [facility] Work Phone: Start: 02-25-2022 Anesthesia vascular shunt/shunt revision ANESTH VASCULAR SHUNT SURG [facility] Work Phone: Start: 02-25-2022 Arteriovenous anastomosis open direct AV FUSION DIRECT ANY SITE [facility] Work Phone: Start: 01-17-2022 [facility] Work Phone: Start: 01-06-2022 Patient discharge [facility] Work Phone: Start: 01-04-2022 Consultation [facility] Work Phone: Start: 01-04-2022 Enteric precautions [facility] Work Phone: Start: 01-03-2022 Following clinical pathway protocol [facility] Work Phone: Start: 01-03-2022 Assessment of risk of venous thromboembolism [facility] Work Phone: Start: 01-03-2022 Insertion of catheter into peripheral vein [facility] Work Phone: Start: 01-03-2022 Measuring intake and output [facility] Work Phone: Start: 01-03-2022 Providing care according to standard [facility] Work Phone: Start: 01-03-2022 Provision of activity privileges [facility] Work Phone: Start: 01-03-2022 [facility] Work Phone: Start: 01-03-2022 Admission procedure [facility] Work Phone: Start: 01-03-2022 Patient referral to dietitian [facility] Work Phone: Start: 01-01-2022 Patient discharge [facility] Work Phone: Start: 12-31-2021 [facility] Work Phone: Start: 12-31-2021 Administration of blood product [facility] Work Phone: Start: 12-30-2021 [facility] Work Phone: Start: 12-30-2021 Application of intermittent pneumatic compression device [facility] Work Phone: Start: 12-29-2021 [facility] Work Phone: Start: 12-29-2021 Administration of blood product [facility] Work Phone: Start: 12-29-2021 Administration of blood product [facility] Work Phone: Start: 12-28-2021 [facility] Work Phone: Start: 12-28-2021 Administration of blood product [facility] Work Phone: Start: 12-28-2021 Referral to general surgeon [facility] Work Phone: Start: 12-28-2021 Care planning and problem solving actions [facility] Work Phone: Start: 12-27-2021 End: 12-28-2021 [facility] Work Phone: Start: 12-27-2021 Bacteria identified in Blood by Culture Blood Culture [facility] Work Phone: Start: 12-27-2021 End: 12-27-2021 Consultation [facility] Work Phone: Start: 12-27-2021 Peripherally inserted central catheter care [facility] Work Phone: Start: 12-27-2021 Care regimes management [facility] Work Phone: Start: 12-27-2021 Application of elastic bandage [facility] Work Phone: Start: 12-27-2021 Elevation of affected extremity [facility] Work Phone: Start: 12-27-2021 End: 12-27-2021 Notification of physician [facility] Work Phone: Start: 12-27-2021 End: 12-27-2021 Patient education [facility] Work Phone: Start: 12-27-2021 End: 12-27-2021 Consultation [facility] Work Phone: Start: 12-27-2021 Referral to healthcare project manager [facility] Work Phone: Start: 12-27-2021 Oxygen therapy [facility] Work Phone: Start: 12-27-2021 Ambulation without limitation [facility] Work Phone: Start: 12-27-2021 Assessment of risk of venous thromboembolism [facility] Work Phone: Start: 12-27-2021 Incentive spirometry [facility] Work Phone: Start: 12-27-2021 Insertion of catheter into peripheral vein [facility] Work Phone: Start: 12-27-2021 Measuring intake and output [facility] Work Phone: Start: 12-27-2021 Providing care according to standard [facility] Work Phone: Start: 12-27-2021 Referral to occupational therapist [facility] Work Phone: Start: 12-27-2021 Referral to service [facility] Work Phone: Start: 12-27-2021 Following clinical pathway protocol [facility] Work Phone: Start: 12-27-2021 Admission procedure [facility] Work Phone: Start: 12-27-2021 Patient referral to dietitian [facility] Work Phone: Start: 04-10-2021 Medication monitoring [facility] Start: 04-10-2021 Precautionary procedure [facility] Start: 04-10-2021 [facility] Start: 03-20-2021 Medication monitoring [facility] Start: 03-20-2021 Precautionary procedure [facility] Start: 03-20-2021 [facility] Start: 02-27-2021 Medication monitoring [facility] Start: 02-27-2021 Precautionary procedure [facility] Start: 02-27-2021 [facility] Start: 02-06-2021 Medication monitoring [facility] Start: 02-06-2021 Precautionary procedure [facility] Start: 02-06-2021 [facility] Start: 01-09-2021 Medication monitoring [facility] Start: 01-09-2021 Precautionary procedure [facility] Start: 01-09-2021 [facility] Start: 12-19-2020 Medication monitoring [facility] Start: 12-19-2020 Precautionary procedure [facility] Start: 12-19-2020 [facility] Start: 11-28-2020 Medication monitoring [facility] Start: 11-28-2020 Precautionary procedure [facility] Start: 11-28-2020 [facility] Start: 11-07-2020 Medication monitoring [facility] Start: 11-07-2020 Precautionary procedure [facility] Start: 11-07-2020 [facility] Start: 10-31-2020 Venous catheter care management [facility] Start: 10-17-2020 Medication monitoring [facility] Start: 10-17-2020 Precautionary procedure [facility] Start: 10-17-2020 [facility] Start: 09-26-2020 Medication monitoring [facility] Start: 09-26-2020 Precautionary procedure [facility] Start: 09-26-2020 [facility] Start: 09-05-2020 Medication monitoring [facility] Start: 09-05-2020 Precautionary procedure [facility] Start: 09-05-2020 [facility] Start: 08-15-2020 Medication monitoring [facility] Start: 08-15-2020 Precautionary procedure [facility] Start: 08-15-2020 [facility] Start: 07-25-2020 Medication monitoring [facility] Start: 07-25-2020 Precautionary procedure [facility] Start: 07-25-2020 [facility] Start: 07-04-2020 Medication monitoring [facility] Start: 07-04-2020 Precautionary procedure [facility] Start: 07-04-2020 [facility] Start: 06-13-2020 Medication monitoring [facility] Start: 06-13-2020 Precautionary procedure [facility] Start: 06-13-2020 [facility] Start: 05-23-2020 Medication monitoring [facility] Start: 05-23-2020 Precautionary procedure [facility] Start: 05-23-2020 [facility] Start: 05-02-2020 Medication monitoring [facility] Start: 05-02-2020 Precautionary procedure [facility] Start: 05-02-2020 [facility] Start: 04-11-2020 Medication monitoring [facility] Start: 04-11-2020 Precautionary procedure [facility] Start: 04-11-2020 [facility] Start: 03-21-2020 Medication monitoring [facility] Start: 03-21-2020 Precautionary procedure [facility] Start: 03-21-2020 [facility] Start: 02-29-2020 Medication monitoring [facility] Start: 02-29-2020 Precautionary procedure [facility] Start: 02-29-2020 [facility] Start: 02-08-2020 Medication monitoring [facility] Start: 02-08-2020 Precautionary procedure [facility] Start: 02-08-2020 [facility] Start: 01-18-2020 Medication monitoring [facility] Start: 01-18-2020 Precautionary procedure [facility] Start: 01-18-2020 [facility] Start: 12-28-2019 Medication monitoring [facility] Start: 12-28-2019 Precautionary procedure [facility] Start: 12-28-2019 [facility] Start: 12-07-2019 Medication monitoring [facility] Start: 12-07-2019 Precautionary procedure [facility] Start: 12-07-2019 [facility] Start: 11-16-2019 Medication monitoring [facility] Start: 11-16-2019 Precautionary procedure [facility] Start: 11-16-2019 [facility] Start: 10-23-2019 Medication monitoring [facility] Start: 10-23-2019 Precautionary procedure [facility] Start: 10-23-2019 [facility] Start: 2014 RSV VACCINE (1 - Risk 60-74 years 1-dose series) RSV VACCINE (1 - Risk 60-74 years 1-dose series) [facility] Start: 2009 Prostate specific antigen measurement PROSTATE CANCER SCREENING DISCUSSION [facility] Start: 2004 Pneumococcal vaccination PNEUMOCOCCAL VACCINE SERIES (1 of 1 - PCV) [facility] Start: 2004 Zoster vaccine hzv live for subcutaneous use ZOSTER (SHINGLES) VACCINE (1 of 2) [facility] Start: 12-25-1999 Screening for malignant neoplasm of colon COLORECTAL CANCER SCREENING DISCUSSION [facility] Start: 1994 Lipid panel LIPID SCREENING [facility] Start: 1973 Pneumococcal vaccination PNEUMOCOCCAL VACCINE SERIES (1 of 2 - PCV) [facility] Start: 1973 Third diphtheria, tetanus and acellular pertussis (DTaP) vaccination TDAP (ADULT) [facility] Start: 1973 Zoster vaccine hzv live for subcutaneous use ZOSTER (SHINGLES) VACCINE (1 of 2) [facility] Start: 12-25-1959 COVID-19 VACCINE (#1) COVID-19 VACCINE (#1) [facility] Start: 1954 Hepatitis C screening HEPATITIS C VIRUS SCREENING [facility] Start: 1954 Tetanus vaccination TETANUS [facility] Start: 1954 Thyroid stimulating hormone measurement TSH [facility] CBC W Auto Different ial panel - Blood [facility] Work Phone: CBC W Auto Different ial panel - Blood [facility] BILLET HEATER RAD ONC SIMULATION BILLET HEATER RAD O NC SIMULATION Imaging Routine Metastatic cancer to spine 12/05/2024 9:39 AM EDT [facility] Work Phone: Comprehensive metabo lic 2000 panel - Serum or Plasma [facility] End: 11-23-2024 CT Cervical and thoracic and lumbar spine WO contrast [facility] Comment on above: 1 Occurrences starting 11/23/2024 until 11/23/2024 CT Chest and Abdomen and Pelvis WO contrast [facility] Work Phone: Lactate dehydrogenas e measurement [facility] Work Phone: End: 11-23-2024 MR Thoracic spine WO and W contrast IV [facility] Comment on above: 1 Occurrences starting 11/23/2024 until 11/23/2024 Patient Education [facility] Work Phone: Patient referral [facility] Work Phone: End: 01-10-2025 PTH INTACT [facility] Comment on above: One Time for 1 Occurrences starting 12/24 until 01/10/2025 End: 01-08-2025 Standard ECG [facility] Comment on above: One Time for 1 Occurrences starting 12/24 until 01/08/2025 T4 free measurement [facility] Work Phone: Thyroid stimulating hormone measurement [facility] Work Phone: Urine culture [facility] End: 01-10-2025 VITAMIN D (25-HYDROXY,TOTAL) [facility] Comment on above: One Time for 1 Occurrences starting 12/24 until 01/10/2025 Immunizations Immunization Date Immunization Notes Care Provider Fa cility 04-25-2020 influenza, injectabl e, quadrivalent, preservative free [facility] 04-25-2020 influenza, seasonal, injectable Dr. Sam Del Toro Work Phone: [facility] 04-04-2020 Fluad Quad (65yr up)(PF) 60 mcg (15 mcg x 4)/0.5mL IM syringe (flu vac Dr. Sam Del Toro Work Phone: [facility] Work Phone: 05-22-2015 influenza, injectabl e, quadrivalent, preservative free [facility] 05-22-2015 influenza, seasonal, injectable Dr. Sam Del Toro Work Phone: [facility] Payers Date Payer Category Payer Medicare (Managed Care) [employer] [place] [employer] PPO [id number] 2019 Medicare [id number] 2019 Self-pay 2016 Unknown [id number] 1954 Unknown [id number] 2.16.840.1.595462.3.579.2. 594 1954 Unknown [id number] 2.16.840.1.072913.3.579.2. 594 1954 Unknown [id number] 2.16.840.1.158437.3.579.2. 594 1954 Unknown [id number] 2.16.840.1.506328.3.579.2. 594 1954 Unknown [id number] 2.16.840.1.435297.3.579.2. 594 1954 Unknown [id number] 2.840.1.027143.3.579.2. 594 1954 Unknown [id number] 2.840.1.095848.3.579.2. 594 1954 Unknown [id number] 2.840.1.631557.3.579.2. 594 1954 Unknown [id number] 2.840.1.954315.3.579.2. 594 1954 Unknown [id number] 2.16840.1.886590.3.579.2. 594 1954 Unknown [id number] 2.16840.1.535804.3.579.2. 594 1954 Unknown [id number] 2.16840.1.451273.3.579.2. 594 1954 Unknown [id number] 2.16.840.1.579983.3.579.2. 594 1954 Unknown [id number] 2.16.840.1.089013.3.579.2. 594 1954 Unknown [id number] 2.16.840.1.409949.3.579.2. 594 1954 Unknown [id number] 2.16.840.1.062043.3.579.2. 594 1954 Unknown [id number] 2.16.840.1.344098.3.579.2. 594 1954 Unknown [id number] 2.16.840.1.672678.3.579.2. 594 1954 Unknown [id number] 2.16.840.1.075259.3.579.2. 594 1954 Unknown [id number] 2.840.1.330230.3.579.2. 594 Medicare [id number] Self-pay SELF PAY INSURANCE [id number] Unknown [id number] 2.840.1.679304.3.579.2. 462 Unknown [id number] 2.840.1.480468.3.579.2. 462 Unknown [id number] 2.840.1.993961.3.579.2. 462 Unknown [id number] 2.840.1.134316.3.579.2. 462 Unknown [id number] 2.840.1.275238.3.579.2. 462 Unknown [id number] 2.840.1.223561.3.579.2. 462 Unknown [id number] 2.840.1.285069.3.579.2. 462 Unknown [id number] 2.840.1.908592.3.579.2. 462 Unknown [id number] 2.840.1.252722.3.579.2. 462 Unknown [id number] 2.16.840.1.080374.3.579.2. 462 Unknown [id number] 2.16840.1.841177.3.579.2. 462 Unknown [id number] 2.840.1.876548.3.579.2. 462 Unknown [id number] 2.16.840.1.432876.3.579.2. 462 Unknown [id number] 2.16.840.1.253118.3.579.2. 462 Unknown [id number] 2.16.840.1.244699.3.579.2. 462 Unknown [id number] 2.16.840.1.615494.3.579.2. 462 Unknown [id number] 2.16.840.1.067560.3.579.2. 462 Unknown [id number] 2.16.840.1.078724.3.579.2. 462 Unknown [id number] 2.16.840.1.985777.3.579.2. 462 Unknown [id number] 2.16.840.1.863793.3.579.2. 462 Unknown [id number] 2.16.840.1.426997.3.579.2. 462 Unknown [id number] 2.16.840.1.051076.3.579.2. 462 Unknown [id number] 2.16.840.1.645782.3.579.2. 462 Unknown [id number] 2.16.840.1.304804.3.579.2. 462 Unknown [id number] 2.16.840.1.444796.3.579.2. 462 Unknown [id number] 2.16840.1.773680.3.579.2. 462 Social History Date Type Detail Facility Start: 11-07-2021 End: 05-14-2023 Tobacco smoking status NHIS Unknown if ever smoked [facility] Start: 07-03-[address] [facility] Start: 07-08-2019 Spouse/ Signif icant Other [facility] Start: 11-07-2020 Non-smoker [facility] Start: 1955 Sex Assigned At Male W [facility] Start: 10-04-2024 End: 11-23-2024 Tobacco smoking status NHIS Never smoked tobacco (finding) [facility] Start: 10-04-2024 End: 11-22-2024 Sex Male (finding) [facility] Start: 11-23-2024 Tobacco use and exposure Smokeless tobacco non-user [facility] Start: 11-23-2024 End: 01-08-2025 Alcoholic beverage intake Ex-drinker (finding) [facility] Start: 11-23-2024 End: 11-30-2024 History of Social function [facility] Start: 11-23-2024 End: 11-30-2024 Tobacco use panel [facility] Adolescent depressio n screening assessment 0 [facility] Start: 1955 Sex assigned at Not on file [facility] How often to you hav e a drink containing alcohol? Never [facility] Medical Equipment Procedure Code Equipment Code Equipment Origin al Text Equipment Identifier Dates Creation, AV fistula SUTURE,LIGA CLIP MED [id number] FDA Start: 02-25-2022 Creation, AV fistula SUTURE,LIGA CLIP MED [id number] FDA Start: 02-25-2022 Creation, AV fistula SUTURE,LIGA CLIP MED [id number] FDA Start: 02-25-2022 Creation, AV fistula SUTURE,LIGA CLIP SM LT-100 FDA Start: 02-25-2022 Creation, AV fistula SUTURE,LIGA CLIP SM LT-100 FDA Start: 02-25-2022 Creation, AV fistula SUTURE,LIGA CLIP SM LT-100 FDA Start: 02-25-2022 Creation, AV fistula SUTURE,LIGA CLIP SM LT-100 FDA Start: 02-25-2022 Creation, AV fistula SUTURE,LIGA CLIP MED [id number] FDA Start: 02-25-2022 Creation, AV fistula SUTURE,LIGA CLIP MED [id number] FDA Start: 02-25-2022 Creation, AV fistula SUTURE,LIGA CLIP MED [id number] FDA Start: 02-25-2022 Creation, AV fistula SUTURE,LIGA CLIP SM LT-100 FDA Start: 02-25-2022 Creation, AV fistula SUTURE,LIGA CLIP SM LT-100 FDA Start: 02-25-2022 Creation, AV fistula SUTURE,LIGA CLIP SM LT-100 FDA Start: 02-25-2022 Creation, AV fistula SUTURE,LIGA CLIP SM LT-100 FDA Start: 02-25-2022 Creation, AV fistula SUTURE,LIGA CLIP MED [id number] FDA Start: 02-25-2022 Creation, AV fistula SUTURE,LIGA CLIP MED [id number] FDA Start: 02-25-2022 Creation, AV fistula SUTURE,LIGA CLIP MED [id number] FDA Start: 02-25-2022 Creation, AV fistula SUTURE,LIGA CLIP SM LT-100 FDA Start: 02-25-2022 Creation, AV fistula SUTURE,LIGA CLIP SM LT-100 FDA Start: 02-25-2022 Creation, AV fistula SUTURE,LIGA CLIP SM LT-100 FDA Start: 02-25-2022 Creation, AV fistula SUTURE,LIGA CLIP SM LT-100 FDA Start: 02-25-2022 Creation, AV fistula SUTURE,LIGA CLIP MED [id number] FDA Start: 02-25-2022 Creation, AV fistula SUTURE,LIGA CLIP MED [id number] FDA Start: 02-25-2022 Creation, AV fistula SUTURE,LIGA CLIP MED [id number] FDA Start: 02-25-2022 Creation, AV fistula SUTURE,LIGA CLIP SM LT-100 FDA Start: 02-25-2022 Creation, AV fistula SUTURE,LIGA CLIP SM LT-100 FDA Start: 02-25-2022 Creation, AV fistula SUTURE,LIGA CLIP SM LT-100 FDA Start: 02-25-2022 Creation, AV fistula SUTURE,LIGA CLIP SM LT-100 FDA Start: 02-25-2022 Creation, AV fistula SUTURE,LIGA CLIP MED [id number] FDA Start: 02-25-2022 Creation, AV fistula SUTURE,LIGA CLIP MED [id number] FDA Start: 02-25-2022 Creation, AV fistula SUTURE,LIGA CLIP MED [id number] FDA Start: 02-25-2022 Creation, AV fistula SUTURE,LIGA CLIP SM LT-100 FDA Start: 02-25-2022 Creation, AV fistula SUTURE,LIGA CLIP SM LT-100 FDA Start: 02-25-2022 Creation, AV fistula SUTURE,LIGA CLIP SM LT-100 FDA Start: 02-25-2022 Creation, AV fistula SUTURE,LIGA CLIP SM LT-100 FDA Start: 02-25-2022 Creation, AV fistula SUTURE,LIGA CLIP MED [id number] FDA Start: 02-25-2022 Creation, AV fistula SUTURE,LIGA CLIP MED [id number] FDA Start: 02-25-2022 Creation, AV fistula SUTURE,LIGA CLIP MED [id number] FDA Start: 02-25-2022 Creation, AV fistula SUTURE,LIGA CLIP SM LT-100 FDA Start: 02-25-2022 Creation, AV fistula SUTURE,LIGA CLIP SM LT-100 FDA Start: 02-25-2022 Creation, AV fistula SUTURE,LIGA CLIP SM LT-100 FDA Start: 02-25-2022 Creation, AV fistula SUTURE,LIGA CLIP SM LT-100 FDA Start: 02-25-2022 Creation, AV fistula SUTURE,LIGA CLIP MED [id number] FDA Start: 02-25-2022 Creation, AV fistula SUTURE,LIGA CLIP MED [id number] FDA Start: 02-25-2022 Creation, AV fistula SUTURE,LIGA CLIP MED [id number] FDA Start: 02-25-2022 Creation, AV fistula SUTURE,LIGA CLIP SM LT-100 FDA Start: 02-25-2022 Creation, AV fistula SUTURE,LIGA CLIP SM LT-100 FDA Start: 02-25-2022 Creation, AV fistula SUTURE,LIGA CLIP SM LT-100 FDA Start: 02-25-2022 Creation, AV fistula SUTURE,LIGA CLIP SM LT-100 FDA Start: 02-25-2022 Creation, AV fistula SUTURE,LIGA CLIP MED [id number] FDA Start: 02-25-2022 Creation, AV fistula SUTURE,LIGA CLIP MED [id number] FDA Start: 02-25-2022 Creation, AV fistula SUTURE,LIGA CLIP MED [id number] FDA Start: 02-25-2022 Creation, AV fistula SUTURE,LIGA CLIP SM LT-100 FDA Start: 02-25-2022 Creation, AV fistula SUTURE,LIGA CLIP SM LT-100 FDA Start: 02-25-2022 Creation, AV fistula SUTURE,LIGA CLIP SM LT-100 FDA Start: 02-25-2022 Creation, AV fistula SUTURE,LIGA CLIP SM LT-100 FDA Start: 02-25-2022 Creation, AV fistula SUTURE,LIGA CLIP MED [id number] FDA Start: 02-25-2022 Creation, AV fistula SUTURE,LIGA CLIP MED [id number] FDA Start: 02-25-2022 Creation, AV fistula SUTURE,LIGA CLIP MED [id number] FDA Start: 02-25-2022 Creation, AV fistula SUTURE,LIGA CLIP SM LT-100 FDA Start: 02-25-2022 Creation, AV fistula SUTURE,LIGA CLIP SM LT-100 FDA Start: 02-25-2022 Creation, AV fistula SUTURE,LIGA CLIP SM LT-100 FDA Start: 02-25-2022 Creation, AV fistula SUTURE,LIGA CLIP SM LT-100 FDA Start: 02-25-2022 Creation, AV fistula SUTURE,LIGA CLIP MED LT200 FDA Start: 02-25-2022 Creation, AV fistula SUTURE,LIGA CLIP MED LT200 FDA Start: 02-25-2022 Creation, AV fistula SUTURE,LIGA CLIP MED LT200 FDA Start: 02-25-2022 Creation, AV fistula SUTURE,LIGA CLIP SM LT-100 FDA Start: 02-25-2022 Creation, AV fistula SUTURE,LIGA CLIP SM LT-100 FDA Start: 02-25-2022 Creation, AV fistula SUTURE,LIGA CLIP SM LT-100 FDA Start: 02-25-2022 Creation, AV fistula SUTURE,LIGA CLIP SM LT-100 FDA Start: 02-25-2022 Creation, AV fistula SUTURE,LIGA CLIP MED LT200 FDA Start: 02-25-2022 Creation, AV fistula SUTURE,LIGA CLIP MED LT200 FDA Start: 02-25-2022 Creation, AV fistula SUTURE,LIGA CLIP MED LT200 FDA Start: 02-25-2022 Creation, AV fistula SUTURE,LIGA CLIP SM LT-100 FDA Start: 02-25-2022 Creation, AV fistula SUTURE,LIGA CLIP SM LT-100 FDA Start: 02-25-2022 Creation, AV fistula SUTURE,LIGA CLIP SM LT-100 FDA Start: 02-25-2022 Creation, AV fistula SUTURE,LIGA CLIP SM LT-100 FDA Start: 02-25-2022 Creation, AV fistula SUTURE,LIGA CLIP MED LT200 FDA Start: 02-25-2022 Creation, AV fistula SUTURE,LIGA CLIP MED LT200 FDA Start: 02-25-2022 Creation, AV fistula SUTURE,LIGA CLIP MED LT200 FDA Start: 02-25-2022 Creation, AV fistula SUTURE,LIGA CLIP SM LT-100 FDA Start: 02-25-2022 Creation, AV fistula SUTURE,LIGA CLIP SM LT-100 FDA Start: 02-25-2022 Creation, AV fistula SUTURE,LIGA CLIP SM LT-100 FDA Start: 02-25-2022 Creation, AV fistula SUTURE,LIGA CLIP SM LT-100 FDA Start: 02-25-2022 Creation, AV fistula SUTURE,LIGA CLIP MED LT200 FDA Start: 02-25-2022 Creation, AV fistula SUTURE,LIGA CLIP MED LT200 FDA Start: 02-25-2022 Creation, AV fistula SUTURE,LIGA CLIP MED LT200 FDA Start: 02-25-2022 Creation, AV fistula SUTURE,LIGA CLIP SM LT-100 FDA Start: 02-25-2022 Creation, AV fistula SUTURE,LIGA CLIP SM LT-100 FDA Start: 02-25-2022 Creation, AV fistula SUTURE,LIGA CLIP SM LT-100 FDA Start: 02-25-2022 Creation, AV fistula SUTURE,LIGA CLIP SM LT-100 FDA Start: 02-25-2022 Creation, AV fistula SUTURE,LIGA CLIP MED LT200 FDA Start: 02-25-2022 Creation, AV fistula SUTURE,LIGA CLIP MED LT200 FDA Start: 02-25-2022 Creation, AV fistula SUTURE,LIGA CLIP MED LT200 FDA Start: 02-25-2022 Creation, AV fistula SUTURE,LIGA CLIP SM LT-100 FDA Start: 02-25-2022 Creation, AV fistula SUTURE,LIGA CLIP SM LT-100 FDA Start: 02-25-2022 Creation, AV fistula SUTURE,LIGA CLIP SM LT-100 FDA Start: 02-25-2022 Creation, AV fistula SUTURE,LIGA CLIP SM LT-100 FDA Start: 02-25-2022 Creation, AV fistula FDA Start: 02-25-2022 Creation, AV fistula FDA Start: 02-25-2022 Creation, AV fistula FDA Start: 02-25-2022 Creation, AV fistula FDA Start: 02-25-2022 Creation, AV fistula FDA Start: 02-25-2022 Creation, AV fistula FDA Start: 02-25-2022 Creation, AV fistula FDA Start: 02-25-2022 Creation, AV fistula FDA Start: 02-25-2022 Creation, AV fistula FDA Start: 02-25-2022 Creation, AV fistula FDA Start: 02-25-2022 Creation, AV fistula FDA Start: 02-25-2022 Creation, AV fistula FDA Start: 08-03-2022 Creation, AV fistula FDA Start: 02-25-2022 Creation, AV fistula FDA Start: 02-25-2022 Creation, AV fistula SUTURE,LIGA CLIP MED LT200 FDA Start: 02-25-2022 Creation, AV fistula SUTURE,LIGA CLIP MED LT200 FDA Start: 02-25-2022 Creation, AV fistula SUTURE,LIGA CLIP MED LT200 FDA Start: 02-25-2022 Creation, AV fistula SUTURE,LIGA CLIP SM LT-100 FDA Start: 02-25-2022 Creation, AV fistula SUTURE,LIGA CLIP SM LT-100 FDA Start: 02-25-2022 Creation, AV fistula SUTURE,LIGA CLIP SM LT-100 FDA Start: 02-25-2022 Creation, AV fistula SUTURE,LIGA CLIP SM LT-100 FDA Start: 02-25-2022 Creation, AV fistula FDA Start: 02-25-2022 Creation, AV fistula FDA Start: 02-25-2022 Creation, AV fistula FDA Start: 02-25-2022 Creation, AV fistula FDA Start: 02-25-2022 Creation, AV fistula FDA Start: 02-25-2022 Creation, AV fistula FDA Start: 02-25-2022 Creation, AV fistula FDA Start: 02-25-2022 Goals Date Patient Goal Desired Activity /State Functional Status Date Assessment Result Facility 01-10-2025 Total score [AUDIT-C] 0 01/11/20 25 4:41 PM EDT Brenna Arevalo LISW [facility] 01-09-2025 Are you deaf, or do you have serious difficulty hearing No 01/09/2025 5:00 AM EDT Inga Acuna, MAYNOR No [facility] 01-09-2025 Are you blind, or do you have serious difficulty seeing, even when wearing glasses No 01/09/2025 5:00 AM EDT Inga Acuna, MAYNOR No [facility] 01-09-2025 Do you have serious difficulty walking or climbing stairs Yes 01/09/2025 5:00 AM EDT Inga Acuna, RN Yes [facility] 01-09-2025 Do you have difficul ty dressing or bathing Yes 01/09/2025 5:00 AM EDT Inga Acuna, RN Yes [facility] 01-09-2025 Because of a physica l, mental, or emotional condition, do you have difficulty doing errands alone such as visiting a physician's office or shopping No 01/09/2025 5:00 AM EDT Inga Acuna RN No [facility] 01-06-2022 Functional status Chair [facility] Work Phone: 01-01-2022 Functional status Chair [facility] Work Phone: [facility] Mental Status Date Assessment Result Facility 01-09-2025 Because of a physica l, mental, or emotional condition, do you have serious difficulty concentrating, remembering, or making decisions No 01/09/2025 5:00 AM EDT Inga Acuna RN No [facility] 02-25-2022 Cognitive function Voice/Name [facility] Work Phone: 01-06-2022 Cognitive function Voice/Name [facility] Work Phone: 01-01-2022 Cognitive function Voice/Name [facility] Work Phone: 07-20-2019 Cognitive function Appropriate;C wesley;Relax ed [facility] Work Phone: Clinical Notes 06-07-2024 to 01-11-2025 Nursing Notes - Elena Ritchie RN - 01/11/2025 2:02 PM EDTNursing Notes - Elena Ritchie RN - 01/11/2025 2:02 PM EDTPlan of Care - Ray Lazo DO, PhD - 01/11/2025 7:05 AM EDTMedications Note Date & Type Note Facility 01-11-2025 Nurse Note Patient is being discharged to home with . All discharge paperwork (AVS & prescriptions) reviewed with the patient; the patient denied questions/concerns. All personal belongings are with patient and son.Peripheral IV removed without complication per policy. Patient left unit via wheelchair without incident. [facility] 01-11-2025 Miscellaneous Notes Patient is being discharged to home with HH. All discharge paperwork (AVS & prescriptions) reviewed with the patient; the patient denied questions/concerns. All personal belongings are with patient and son.Peripheral IV removed without complication per policy. Patient left unit via wheelchair without incident. Krissy Wright is a 69 y.o. 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 -[facility] read does not identify any thrombus/tumor thrombus -Lower extremity duplex without any evidence of DVT - Patient had previously endorsed continued hematuria -If hematuria/bleeding is controlled consider starting on prophylactic anticoagulation Hematology will sign off Ray Lazo DO, PhD Fellow Physician Hematology and Medical Oncology [facility] Problem: Adult Inpatient Plan of Care Goal: Plan of Care Review Outcome: Progressing Pt complain of back pain, tylenol effective. Pt BLE edema appear to be better per pt, its a pitting plus 2. Fluid restrict in place pt had about 320ml fluid last night. Current resting with bed alarm on, bed lower, lock and call light in reach. Images from the original note were not included. WOC/ET Nursing Consult/Evaluation Note Evaluated Krissy Wright for wounds located on the sacrum and left buttock. Description of wound/Recommendation: Sacrum: Fissure present 2/2 moisture associated skin damage and friction. Woud bed yellow, moist and painful w palpation. Apply a combination of Z-guard and Antifungal barrier cream. Left Buttock: Skin changes consistent with chronic moisture damage as well as a small opening with a reddened and yellow base. Periwound currently not as reddened/purple as admission photo. Pt was able to briefly stand up from chair on his own for assessment, but otherwise uses the Reva-steady this admission. Apply combination of Z-guard and Antifungal barrier cream BID and PRN if soiled. [facility] Dis[facility] Recommendations: Patient may continue care as described above at discharge. See image(s) below: Tramaine Skin Assessment: Tramaine Risk Assessment Sensory Perception: 3-->slightly limited Moisture: 3-->occasionally moist Activity: 3-->walks occasionally Mobility: 2-->very limited Nutrition: 2-->probably inadequate Friction and Shear: 1-->problem Tramaine Score: 14 Tramaine Score: Tramaine Score: 14 Body mass index is 31.74 kg/m . Total time spent in assessment and treatment of patient: 15 min Wound Documentation: 01/10/25 1700 Wound Irritant Contact Dermatitis Perspiration 01/09/25 0500 Coccyx Date First Assessed/Time First Assessed: 01/09/25 0500 Primary Wound Type: Irritant Contact Dermatitis Secondary Wound Type - Irritant Contact Dermatitis: Perspiration Present on Original Admission: Yes Device Related: no Location: Coccyx Confi... Dressing Status Open to Air Assessment Painful;Yellow;Moist Vigren-Wound Assessment Moist ;Intact;[place] Non-staged Wound Description Partial thickness Wound Length (cm) 2 cm Wound Width (cm) 0.3 cm Wound Surface Area (cm^2) 0.6 cm^2 Wound Depth (cm) 0.2 cm Wound Volume (cm^3) 0.12 cm^3 Treatment Applied soap and water, irrigated/cleansed with;barrier applied;antifungal $$ Dressing Applied open to air Periwound Care Applied soap and water, cleansed with Plan Problem moisture associated skin damage Current Plan antifungal;zinc barrier Visit Type Consult with RN WOCT Visit Frequency (Sign off) Last Date Seen 01/10/25 RN notified of assessment and plan. We will sign off at this time. Please page #[phone] or secure chat [facility]. Shirley MATHEW, RN-, CWON [phone] 01/10/25 1345 Tx Assessment/Safety (Pre/Post) Blood Liters Processed (BLP) 78.6 Transport Modality bed Dialyzer Clearance streaked Tolerance to Dialysis Procedure Well, net uf 2.5L removed, via L-avf. Maintained soft bradycardic, & in B/C-prof per crit Treatment Assessment UF Goal/mL: 13234 Fluid Removed/mL: 2800 ml Machine Temperature 98.2 F (36.8 C) Crit Line - Hematocrit 33.9 % Crit Line - Hemoglobin 11.5 g/dL Crit Line - Blood Volume % -16.4 % Crit Line - SvO2 98.9 % Profile B Hemodialysis, Lines Secure/Site Visible Yes Hemodialysis, Safety Factors access site visible and intact;vital signs stable;no supplemental oxygenation needed Hemodialysis, Comments resting with stable VS, no complaints;patient tolerating treatment well (iHD tx ended, pt stable) Vital Signs Temp 97.4 F (36.3 C) Temp source Oral Pulse (Heart Rate) 63 Heart Rate Source Monitor Resp Rate 22 BP 141/70 MAP (mmHg) 99 mmHg BP Method Automatic BP Location Right arm BP Position Lying O2 Sat (%) 99 % O2 Device room air ECG/Rhythm Lead Monitored Lead II;V1 Rhythm sinus bradycardia Post HD Line/AV Access Site Care Arterial Needle - site held (min) 8 minutes Venous Needle - site held (min) 8 minutes Treatment Record Stop Time 1345 Initiation prime given (specify mL) Fluid Volume Removal 2800 Total Fluid Given 300 Returning to Patient Care Unit Transport Testing Complete yes NPO no Additional Restrictions none Changes In Status no [place] Procedure Orders Written no Sending RN/Tech Name Geovany RN Phone [phone] Returning to Patient Care Unit Transport yes Cognitive/Neuro/Behavioral WDL Cognitive/Neuro/Behavioral WDL WDL Cardiovascular WDL Cardiac WDL WDL General Pain Documentation (Adult, OB, Peds) Presence of Pain denies pain/discomfort Presence of Pain Score (Auto-calculated) 0 Sleep/Rest/Relaxation (Adult,Pediatric,OB) Sleep/Rest/Relaxation awake LOC/Significant Event RASS ([place] Agitation-Sedation Scale) 0-->alert and calm Significant Event Off circ, conversant Post-Hemodialysis Assessment Report given to Prim NR 01/10/25 0927 Referral Information Arrived From emergency department;home or self-care Readmission Information Was patient readmitted within 30 Days? No Information Source Information Source patient Outpatient Providers Outpatient Providers Updated In IHIS No Contact Information Management Accounts Manager/SW Added to Care Team Yes This Substance Addiction Coordinator is Primary Management Accounts Manager/SW Yes Management Accounts Manager Name Anali Natarajan Management Accounts Manager's Social Work Contact Name see care team Living Environment Lives With alone Living Arrangement and Set Up house (one-story) Provides Primary Care For no one Primary Care Provided By self Support System Extended family;Friends Able to Return to Prior Arrangements yes Functional Status Patient's Functional Status Prior To This Admission? Independent Are There Status Changes This Admission? No Changes Observed Since Admission? No Changes Observed Concerns With Patient Being Able To Care For Themselves At Discharge? Has Assistance (Friend, Family, Skilled Provider) Who Is Patient's Primary Contact For Discharge Planning, Education And Care For Discharge? sons, Anthony & Melissa, and SO, Heidi Can Support Person Meet The Care Needs Of The Patient? Yes Employment/Financial Employed? Retired Employment/Financial Concerns no Source Of Income social security Insurance Medical Insurance Verified Yes Prescription Coverage Yes Pharmacy updated in IHIS No Initial Discharge Planning Home Care Services (MILLED RUBBER TENDER) No Home Therapies (MILLED RUBBER TENDER) None DME (MILLED RUBBER TENDER) Straight cane;Rollator Patient Goal for Discharge Return home with assistance from family and friends Expected Discharge Disposition Anticipated Services at Discharge Assisted;Physical Therapy;Occupational Therapy;Outpatient follow up Current Discharge Risk chronically ill Transportation Available family or friend will provide Assessment/Concerns to be Addressed Concerns To Be Addressed denies needs/concerns at this time PCRM Initial Assessment Met with patient to complete the initial assessment. Explained role and function of PCRM in multidisciplinary team. Demographic information reviewed with patient/family and confirmed as correct. 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 PT/OT recommendations pending at this time. Anticipate he may need HHC vs SNF. Final plan will be determined closer to discharge, pending therapy and medical team recommendations. Patient/family verbalized understanding and agreement with the plan of care. Patient/family have no questions at this time. PCRM will continue to follow patient with multidisciplinary team for ongoing assessment of needs and for discharge planning. Medical team updated. QUINCY Greer RN Patient Care Fur Floor Worker P: [phone] *for evening (4:30 PM - 8:00 AM) or weekend/holiday needs, please page [phone] Problem: OT - ADLs Goal: Lower Body Dressing - Patient will complete lower body dressing tasks with contact guard assistance using adaptive equipment/compensatory strategies as needed for improved ability to complete self-care activities. Outcome: Ongoing Goal: Grooming - Patient will complete grooming in standing with contact guard assistance for improved ability to safely complete ADLs. Outcome: Ongoing Goal: Toileting - Patient will complete toileting task with standby assistance and adaptive equipment as needed for improved ability to safely complete self-care activities. Outcome: Ongoing Problem: OT - Transfers Goal: Transfers Toilet/ Bedside Commode - Patient will transfer to/from toilet/bedside commode with contact guard assistance for improved ability to safely complete ADLs. Outcome: Ongoing Problem: OT - Balance Goal: Balance - Standing - Patient will perform ~3 minutes of functional task in standing with contact guard assistance and good balance to promote safety and improved balance required for self-care activities. Outcome: Ongoing Problem: OT - Endurance Goal: Endurance Functional Mobility - Patient will complete distance needed for common household mobility with no greater than min rest breaks for improved tolerance to safely complete I/ADL's Outcome: Ongoing Problem: PT - General Goals Goal: Supine <-> Sit Transfers - Patient will perform supine to/from sit transfers with contact guard assistance and with use of hospital bed features in order to improve functional mobility and safety. Outcome: Ongoing Goal: Sit <-> Stand Transfers - Patient will perform sit to/from stand transfers with contact guard assistance and least restrictive device in order to improve functional mobility and safety. Outcome: Ongoing Goal: Standing Endurance/Balance - Patient will perform standing balance tasks for 6-8 min with contact guard assistance and least restrictive device while maintaining an RPE of less than 5/10 to improve endurance and safety with standing tasks. Outcome: Ongoing Goal: Ambulation - Patient will ambulate 100 feet with contact guard assistance and least restrictive device to improve ability to safely navigate home and community. Outcome: Ongoing Goal: Stairs - Patient will ascend/descend 3 stairs with contact guard assistance, least restrictive device, and single railing(s) to improve ability to safely navigate home and community. Outcome: Ongoing Goal: Strength - Patient will demonstrate understanding of exercise program. Outcome: Ongoing Pt assessment is unchanged from prior, unless otherwise noted. Pt was hypoglycemic and received dextrose this morning. Pt received hemodialysis today with 1.8L off. Problem: Adult Inpatient Plan of Care Goal: Plan of Care Review 01/09/2025 152 by Chris Piper RN Outcome: Progressing 01/09/2025 1526 by Chris Piper RN Outcome: Progressing Goal: Patient-Specific Goal (Individualized) 01/09/2025 1527 by Chris Piper RN Outcome: Progressing 01/09/2025 1526 by Chris Piper RN Outcome: Progressing Goal: Absence of Hospital-Acquired Illness or Injury 01/09/2025 1527 by Chris Piper RN Outcome: Progressing 01/09/2025 1526 by Chris Piper RN Outcome: Progressing Goal: Optimal Comfort and Wellbeing 01/09/2025 1527 by Chris Piper RN Outcome: Progressing 01/09/2025 1526 by Chris Piper RN Outcome: Progressing Goal: Readiness for Transition of Care 01/09/2025 1527 by Chris Piper RN Outcome: Progressing 01/09/2025 1526 by Chris Piper RN Outcome: Progressing Problem: Hemodialysis Goal: Safe, Effective Therapy Delivery Outcome: Progressing Goal: Effective Tissue Perfusion Outcome: Progressing Goal: Absence of Infection Signs and Symptoms Outcome: Progressing 01/09/25 1320 Tx Assessment/Safety (Pre/Post) Blood Liters Processed (BLP) 67.6 Transport Modality bed Dialyzer Clearance moderate Tolerance to Dialysis Procedure well. Removed 1.8L net UF per crit line. Treatment Assessment Blood Flow Rate (BFR) mL/min 400 Dialysate Flow Rate (DFR) mL/min 800 mL/min Arterial Pressure (AP) mmHg -210 Venous Pressure (DISTRIBUTION OPERATIONS SUPERVISOR) mmHg 150 Transmembrane Pressure (TMP) mmHg 90 UF Goal/mL: 2100 Machine Time 1320 Ultrafiltration Rate (UFR) mL/hr 810 Fluid Removed/mL: 2100 ml Machine Temperature 98.6 F (37 C) Crit Line - Hematocrit 34.6 % Crit Line - Hemoglobin 11.8 g/dL Crit Line - Blood Volume % -15.4 % Crit Line - SvO2 97.6 % Profile A Hemodialysis, Lines Secure/Site Visible Yes Hemodialysis, Safety Factors supplemental oxygenation;access site visible and intact;vital signs stable Hemodialysis, Comments other (see comments) (iHD completed) Vital Signs Temp 97.4 F (36.3 C) Temp source Oral Pulse (Heart Rate) 72 Heart Rate Source Monitor Resp Rate 23 BP 146/77 MAP (mmHg) 104 mmHg BP Method Automatic BP Location Right arm BP Position Lying O2 Sat (%) 96 % O2 Device nasal cannula Flow (L/min) 2 ECG/Rhythm Lead Monitored Lead II Rhythm sinus rhythm Hemodialysis Peripheral AV Access 11/23/24 1430 Hemodialysis Placement Date/Time: 11/23/24 143 Present On Admission : yes AV Access Type: fistula Indication: Hemodialysis Location: forearm, left Assessment bruit audible, strong;thrill palpable, strong Site Preparation/Maintenance gauze bandage applied;other (see comments) (surgifoam) Site Signs/Symptoms site asymptomatic Securement other (see comments) (3m micropore tape) Phlebitis 0-->no symptoms Infiltration 0-->no symptoms Post HD Line/AV Access Site Care Arterial Needle - site held (min) 5 minutes Venous Needle - site held (min) 5 minutes Treatment Record Stop Time 1320 Fluid Volume Removal 2100 Total Fluid Given 300 Returning to Patient Care Unit Transport O2 NC Changes In Status no [place] Procedure Orders Written no Sending RN/Tech Name Yasmany Phone [phone] Returning to Patient Care Unit Transport yes Cognitive/Neuro/Behavioral WDL Cognitive/Neuro/Behavioral WDL WDL Sleep/Rest/Relaxation (Adult,Pediatric,OB) Sleep/Rest/Relaxation awake LOC/Significant Event RASS ([place] Agitation-Sedation Scale) 0-->alert and calm Significant Event iHD completed Post-Hemodialysis Assessment Report given to Chris MCGUIRE Plan on 3 hrs hemodialysis with net fluid removal of 2-3L as tolerated. During Krissy Wright's Dialysis Treatment on 01/09/2025 the following interventions for Prevent/Manage Dialysis Procedure Complication were completed: Ensure system correctly primed, connections secure, and air detector alarms engaged. Verify correct machine setting with physician order. Assure proper dialysate conductivity and water quality prior to starting treatment Closely monitor patient throughout for tolerance to treatment During Krissy Wright's Dialysis Treatment on 01/09/2025 the following interventions for Monitoring and Managing Fluid Electrolyte/Acid Base Balance were completed: Monitor intake and output. Monitor daily weight. Enforce fluid restriction. Manage electrolyte shifts and resulting effect. Assess presence/location of edema. During Krissy Wright's Dialysis Treatment on 01/09/2025 the following interventions to Protect/Monitor Dialysis AV Access Site were completed: Inspect and monitor Dialysis AV access site Educate patient on home care, and reportable symptoms Avoid using arm with dialysis access site for IV access, phlebotomy, injections or BP readings. This RN notified Anup Leung that pt has arrived to the floor documented in this encounter [facility] 01-11-2025 History of Present illness Narrative PCRM notified of request for home health, instead of SNF. Home health referral started in [place]. Spoke with son Melissa and let him know the process. As soon as I have agencies accepting, I will call him back for preference and arrange for services. Team made aware. Lachelle Gallo RN, PCRM [phone] For evening and weekend discharge assistance please page the reinforcing iron worker helper PCRM at [phone]. Discharge Planning for Home Health Options for discharge have been discussed with patient and family. Patient and family agree the post hospital care needs will best met at home with home care services. Background Information/ Hospital Overview: 69 y.o. 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 Services needed: Assisted, OT, night warehouse managerAssisted Needs SN - Develop a plan of care with the MD. Coordinate and oversee plan with patient/family and team. Assess patient vital signs, assess pain, monitor and manage lines, tube, drains. Manage medications, ensure safety in the home. Monitor patient response to treatment. PT/OT eval and goals sent via Aidin Line / tube / drain type and care needed None Wound Care Contact dermatitis coccyx - CLOTH BLEACHING RANGE TENDER Oxygen requirements / airway Room air Lab work: type and frequency To be determined Specialty Medications: (chemotherapy / IV antibiotics / Hydration) N/A Additional information regarding needed services: N/A Teachable Caregiver / Family Support: Son is a teachable caregiver and will be willing to work with [facility] to obtain education if there are complex teaching services needed for the patient. Physician following for home care orders / phone: Tiarra Fiore MD - Neuro Surg P: [phone] F: [phone] Outpatient PCRM / phone: N/A Final plan will be determined closer to discharge, pending therapy and medical team recommendations. Patient/family verbalized understanding and agreement with the plan of care. Patient/family have no questions at this time. PCRM will continue to follow patient with multidisciplinary team for ongoing assessment of needs and for discharge planning. Medical team updated. Lachelle Gallo RN, PCRM [phone] For evening and weekend discharge assistance please page the reinforcing iron worker helper PCRM at [phone]. Summary: SW Consult SW Consult Reason for Consult: Discharge Planning Consulted By: Medical Team Assessment: This SW presented to the room to talk with patient's son per RN request. Patient's son and patient confirmed that although PT/OT rec is SNF, patient is not agreeable at this time and plans to discharge home today. Patient's son requested to speak with someone about HHC. SW Interventions: SW informed PCRM of HHC request. bible worker has updated the medical team. bible worker remains available to assist in discharge planning, emotional support, and resource needs. SPEEDY Sandy Social Work IRP Pager [phone] For Evening (4:30pm-8am), Weekend, and Holiday SW needs please call [phone] or page [phone]. 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 Patient was alert and oriented x4 and agreeable to SW visit. Significant other Heidi and dtr in [facility] Joann also at bedside and patient agreeable to assessment with family present. Contact Information: Social Work Contact Name: Brenna Colin Retail Maintenance Technician's Advance Directive Discussion: Per chart review, patient does not have any advance directives on file, however, patient reports that they have already completed advance directives and states the document(s) are at home. SW reviewed that without completed document on file, per [place] Law, sons, (see below) would be their Legal NOK for decision making. SW requested patient provide the hospital with a copy of the document when possible so that it can be scanned into their medical record. Patient agreeable to this plan; and family plans to look for it at patient's home this evening. Legal NOK: Per [place] law, LNOK is determined in the following order: Guardian, Spouse, Majority of Adult Children, Parents, Majority of Adult Siblings, extended family (Niece, Nephew, etc...): Sons: Anthony Wright [phone] Jason Wright [phone] Emotional/Psychological: Mood: congruent to situation Current Interpersonal Conduct/Behavior: appropriate to situation, cooperative Mental Health Conditions/Symptoms: none, denies Previous Mental Health Treatment: none Distress Screen: SW deferred at this time due to patient eating his lunch and also several family members present and patient denies concerns and is in good spirits. Patient Coping/Stress Concerns: Patient Coping/Stress Concerns: No Patient Personal Strengths: able to adapt, assertive, courageous, expressive of emotions, expressive of needs, future/goal oriented, humor, positive attitude, resilient, strong support system, successful coping history Sources Of Support: adult child(shane), significant other, other family members Reaction To Health Status: accepting, adjusting Understanding Of Condition And Treatment: adequate understanding of medical condition, adequate understanding of treatment, needs additional information Living Environment: Lives With: alone Living Arrangement and Set Up: house (1 story, ramp to enter) Caregiver Coping/Stress Concerns: Caregiver Coping/Stress Concerns: No Reaction To Health Status: accepting, adjusting Employment/Financial: Employed?: Yes 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 Employment/Financial Concerns: no Source Of Income: social security Food Insecurity: Within the past 12 months, did you worry that your food would run out before you got money to buy more?: No Within the past 12 months, did the food you bought just not last and you didn t have money to get more?: No Housing/Utilities: Do you have housing?: Yes Are you worried about losing your housing?: No Within the past 12 months, have you or your family members you live with been unable to get utilities (heat, electricity) when it was really needed?: No Transportation: Within the past 12 months, has lack of transportation kept you from medical appointments, getting your medicines, non-medical meetings or appointments, work, or from getting things that you need?: No Alcohol Use: Q1: How often do you have a drink containing alcohol?: Never Q2: How many drinks containing alcohol do you have on a typical day when you are drinking?: Patient does not drink Q3: How often do you have six or more drinks on one occasion?: Never Substance Use: How many times in the past year have you used illegal drugs?: Never Interpersonal Safety: Do you feel physically and emotionally safe where you currently live?: Patient unable to answer (SW deferred due to significant other and daughter in law at bedside) Within the past 12 months, have you been hit, slapped, kicked or otherwise physically hurt by someone?: Patient unable to answer Within the past 12 months, have you been humiliated or emotionally abused in other ways by your partner or ex-partner?: Patient unable to answer Community Resources: denies resources MILLED RUBBER TENDER and denies needs at this time. Anticipated Discharge Plan: Anticipated Discharge Plan: Assisted Facility SW reviewed PT/OT current recommendations; family discussed with patient option of SNF vs home vs short term staying with son; patient in agreement to consider SNF for short term rehab at this time. Estimated Discharge Date: possibly over the weekend Referred Level of Care: Assisted Facility Discharge Considerations: medical stability, accepting SNFs, patient choice, precert, transportation Referral Status: referral initiated this date to SNFs close to patient's home, per choice. Choice COVID Testing Requirements: pending policy at facility of choice. Discharge Transportation: will assess closer to discharge; family able to provide transportation if appropriate Medical Team Considerations: Patient's daughter in law with questions about medication; team aware SW Interventions/Recommendations: Service SW name and contact information placed on white board in patient's room to contact as needed. SW will continue to remain available to provide assistance and support as needed during inpatient stay. PEGGY Holder Flo Retail Maintenance Technician Pager [phone] For Evening (4:30pm-8am), Weekend, and Holiday SW needs please call [phone] or page [phone]. Hemodialysis Note: Patient seen on HD Ix: Clearance and Volume UF (kg): 2L K (meq): 3mEq Filter: Optiflux BFR (ml/min): 400 DFR (ml/min): 800 Access: AVF Wt Readings from Last 3 Encounters: 01/10/25 106.2 kg (234 lb 1.6 oz) 12/29/24 105.7 kg (233 lb) 12/28/24 105.7 kg (233 lb) Temp Readings from Last 3 Encounters: 01/10/25 97.8 F (36.6 C) (Oral) 01/08/25 97.4 F (36.3 C) (Oral) 12/29/24 97.9 F (36.6 C) (Infrared) BP Readings from Last 3 Encounters: 01/10/25 135/63 01/09/25 175/87 12/29/24 148/69 Pulse Readings from Last 3 Encounters: 01/10/25 58 01/09/25 77 12/29/24 84 Diagnosis addressed: ESRD on Hemodialysis Patient tolerating HD well Pascual Hale MD Nephrology Attending Please page fellow pager on [employer] with questions or concerns [facility] MEDICINE INPATIENT PROGRESS NOTE TODAY'S DATE: 01/10/2025 ADMIT DATE: 01/09/2025 4:40 AM REASON FOR ADMISSION: weakness, tumor thrombus Oncology Team: Genny (rad onc) ASSESSMENT AND PLAN Krissy Wright is a 69 y.o. 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 Tumor thrombus suspected in right renal vein and IVC. Numerous pulmonary nodules - CT chest showed no PE. Multiple pulmonary nodules. Stable multi lobulated masses in right kidney in in pancreas - consult hematology regarding AC - rec med onc consult to assist with restaging/workup of likely recurrent RCC, follow up w/ med onc outpatient - will follow up with OP Onc - rec consulting radiology for overread of outside images to eval if tumor thrombus is true VTE - CTAP (outside image interpretation) of CTAP on 01/08 - Increased large invasive right renal mass, which may be a conglomerate of lesions. Invasion of the renal pelvis and collecting system. No visible thrombus/tumor thrombus. Right renal vein is patent and infrarenal IVC is not opacified likely as a result of contrast timing. Mixed response with decreased size of pancreatic and right retroperitoneal metastases. Increased size of metastatic lymph nodes. - rec DVT US - ordered - pending - bleeding risk is high w/ RCC, if no DVT, may consider not resuming AC given he has ongoing hematuria. ESRD on HD - gets HD MWF, missed 01/08, HD here 01/09 and 01/10 - c/s nephrology -iHD today due to missed hd on Wednesday, seen on dialysis, see separate procedure note -check calcium and phosphorus with chemistry at least 3x weekly -check ferritin(3213.7), iron studies(WNL), - PTH and Vitamin D25 - ordered - pending - uric acid - 4.1 (WNL) -trend Hgb, may need to consider inpatient SARITA if hospitalization prolonged -strict Is and Os -give nephrocaps 1 tab daily while on FIRE SUPPORT MAN -low Na, low K, low phos, high protein diet. Limit fluids to 1.2 L/day BLE edema - pt reports worsening BLE on admission; slight improvement as of 01/10 - hx of heart failure as below - will get BNP - 214,022 - elevated legs - BLE dopplers as above - pending - consider lasix, consider echo Hematuria Possible blood per rectum - 01/09 - reporting blood in toilet bowl after BM. Pt reports hx of hemorrhoids. 01/10 - No BM to confirm/deny blood. Patient reporting he now thinks it was just in his urine. - UA 01/09 - dirty; culture - no growth - Hgb stable; continue to hold heparin - nursing communication to upload any blood BM or gross hematuria to media tab - 01/09 light pink urine - Continue to trend Hgb RCC - pt following with Dr. Farris (rad onc) - s/p left nephrectomy - currently receiving radiation tx to T2, last 12/29 - currently on Inlyta - on a dex taper, currently decadron 4mg daily Complexity. Hypocalcemia - Continue to monitor and replete. Thrombocytopenia - Continue to monitor. Obesity, class I Body mass index is 31.74 kg/m . - Follow with PCP for dietary and lifestyle modifications. Hypothyroidism - Continue thyroid replacement. Wound Documentation Wound Irritant Contact Dermatitis Perspiration 01/09/25 0500 Coccyx (Active) Date First Assessed/Time First Assessed: 01/09/25 0500 Primary Wound Type: Irritant Contact Dermatitis Secondary Wound Type - Irritant Contact Dermatitis: Perspiration Present on Original Admission: Yes Device Related: no Location: Coccyx Confi... Any conditions listed below are present on admission unless otherwise specified. .Metastatic Cancer, Location of Metastasis: see above Body mass index is 31.74 kg/m . CHRONIC PROBLEMS HFpEF HTN Afib - EKG NSR on admission - cont home ASA, cartia, metop - pt states he stopped eliquis 3-4 months ago d/t hematuria and started taking bASA - pt with some SOB on admission. Patient on 2L NC. Patient weaned to RA with O2 sat mid-high 90s on 01/10. - made need WOL test prior to discharge Hypothyroidism - cont home levothyroxine GERD - cont home protonix T2DM - hold home glipizide - SSI - held 01/09 for low BG DVT prophylaxis: heparin(held for hematuria) Diet: DIET CARB CONTROLLED Very Low Sodium; Phosphorus and Potassium Restricted (Renal); Fluid Restriction 1500mL (750mL Nursing, 750mL Nutrition) Continuous Infusions: Code Status: Full Code Fall Risk: Assessed for patient fall risk and discussed safety measures during rounding. CENTRAL LINES: Central Line Indications: No line currently in place If patient has multiple lines, please choose the answers of the next two questions to correlate with the lines listed above in descending order Can line/s be removed today? Select all that apply No line in place at this time Dressing/s Clean/Dry/Intact?: Select all that apply No line currently in place Serious Illness Conversation: Na Disposition: The patient will require continued hospitalization for BLE dopplers, final anticoagulation plan with heme. They are expected to discharge to SNF(patient and family given list of SNF; will need precert once choice made). Today they are expected to be medically ready for discharge on 2-3 days. Follow-ups made: - Rad Onc 01/19 - Rad Onc Dr. Farris - 03/22 Follow-ups needed: - Neph/HD for MWF - heme? SUBJECTIVE Patient sitting in bedside chair this morning just after working with PT/OT. He reports that the his walk went well and that he was not SOB or lightheaded/dizzy at all when standing up or walking. Patient inquiring about if he can take off oxygen NC. Aware that he will be going for HD again this morning. He states that the pain in his back, around where his kidneys are is somewhat improved since yesterday. He states that he is still having pink colored urine and reports that he has not had a BM yet today. Patient denies fever/chills, GALDAMEZ, dizziness/lightheadedness, SOB, CP, n/v/d/c, abdominal pain. Remainder of ROS queried and negative. OBJECTIVE Temp: [97.4 F (36.3 C)-97.9 F (36.6 C)] 97.9 F (36.6 C) Pulse (Heart Rate): [55-74] 70 Resp Rate: [13-25] 21 BP: (135-178)/(58-81) 150/71 O2 Sat (%): [95 %-100 %] 95 % Weight: [106.2 kg (234 lb 1.6 oz)] 106.2 kg (234 lb 1.6 oz) General: A&O to self, time, place, and situation. NAD. Chronically ill appearing HEENT: EOMI, anicteric sclerae, conjunctivae & lids symmetrical. No signs of inflammation. Neck no rigidity. Not NISQUALLY. MMM. Respiratory: Clear to auscultation bilaterally, no crackles/rhonchi/wheezes. No increased WOB. Will try to wean to RA today. Cardiovascular: RRR, no murmurs, rubs, clicks or gallops. BLE 2-3+ pitting edema - improved from yesterday. Abdomen: Normoactive BS. Abdomen soft, nontender, nondistended. Neurologic: CN II-XII intact. No focal deficits. Speech clear and coherent. Follows commands. Skin: Color, texture, and turgor normal. No rashes or lesions. LUE fistula. Psychosocial: Affect appropriate PIV with no evidence of erythema, drainage, or tenderness. Dressing is clean, dry, and intact. Lines/drains/airway with placement date: Peripheral AV Hemodialysis placed - 11/23/24 . Plan of care reviewed with the attending, Dr.Adam Didi MD: in agreement. Yoselin Hoffman PA-C Pager: [phone] The provider may be reached from 7a-7p at pager listed on [employer]. After these hours please page the water treatment operator or moonlighter. Cosigned by Chris oTlbert MD at 01/11/2025 8:17 AM EDT Associated attestation - Chris Tolbert MD - 01/11/2025 8:17 AM EDT I saw and evaluated Krissy Wright on 01/10/25. The case was discussed with the Resident/Fellow/MARIANNE. I personally reviewed the chief complaint, history of presenting illness, past medical/surgical history, family history, social history, allergies, review of systems and medications. I personally performed physical examination and reviewed the relevant imaging and laboratory data. I agree with the documented findings, assessment and plan with the following comments/corrections/additions. I personally performed all aspects of the medical decision making for this encounter. Discussed the diagnosis and plan of care with the patient and/or family who are in agreement. Krissy Wright is a 69 y.o. 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 Today, patient with no new complaints. Outside read of CT scans reviewed which showed no evidence of tumor thrombus. Venous duplex showed no evidence of acute DVT. Discussed with hematology who recommended starting prophylactic anticoagulation if cleared from bleeding standpoint. Continue HD as scheduled, nephrology is following. SW assisting with SNF placement. Chris Tolbert MD Clinical Scoop Operator Division of Hospital Medicine Pager [phone] Acute Occupational Therapy Evaluation Prior Gross Functional Mobility: independent, used device Current AM-PAC score(s): CURRENT AM-PAC Activity Raw Score: 17 Based on the above AM-PAC score(s) and OT clinical judgment, discharge destination recommendation is: Assisted Facility Barriers to discharge home: Patient needs assistance with functional mobility, Patient needs assistance with ADLs, Patient needs assistance with IADLs (see note below), Lack of supervision necessary to mitigate fall risk Mobility equipment available at home: rollator, straight cane ADL equipment available at home: Equipment recommendations for discharge: to be determined Equipment issued: none Current therapy frequency recommendation(s) in acute: 5 times a week Activity Recommendations for outside of rehab session: 01/10: x2 assist stand pivot transfer with arm in arm Precautions and Weightbearing Status: OT Existing Precautions/Restrictions: fall, supplemental oxygen Telemetry Patient Safety Communication Prior to Visit: Nursing Subjective: pt supine in bed upon arrival and agreeable for OT evaluation this date Pain: General Pain Documentation (Adult, OB, Peds) Presence of Pain: reports pain/discomfort Pain Location: back DVPRS (Defense and Veterans Pain Rating Scale) DVPRS: Rest: 0- no pain DVPRS: Activity: 4- mild pain Home Setting Residence: House (single story with basement; laundry on main level) Lives With: alone Patient reported support for discharge planning: intermittent physical assist, intermittent supervision (reports son could stay as needed (lives close by)) First floor setup: bedroom, walk-in shower Number of stairs to enter home: 3 (has ramp entry) Number of stairs in home: 10 (down to basement (does not need to use)) Mobility Equipment Available: rollator, straight cane Previous Level of Function Gross Functional Mobility: independent, used device Assistive Device: rollator Prior level ADL Overview: Independent with all ADLs Bed Mobility: independent Transfers: independent Ambulation: modified independent with home Prior Level of Function Details: denies recent falls; reports mostly staying at home; reports friend or son provides transport as needed IADL History Primary Language: Vincentian Objective/Observation: Vitals/Vitals Responses to Treatment: WFL O2 Device: nasal cannula Flow (L/min): 2 Vision Screen Currently wearing corrective lenses: Yes, Reading only Visual Impairments Observed?: No Speech Speech: no gross deficits noted Successful Methods (Communication Strategies): verbal speech Hearing Hearing: no gross deficits noted Cognition Overall Cognitive Status: Within Functional Limits Arousal/Alertness: Appropriate responses to stimuli Orientation Level: Oriented to person, Oriented to time, Not assessed Following Commands: Follows one step commands without difficulty Safety Judgment: Decreased awareness of need for safety Awareness of Errors: Assistance required to correct errors made Deficits: Decreased awareness of deficits Attention Span: Appears intact ADLs: ADL Anticipated Performance (ADLs not directly observed this session): Eating, Grooming, Bathing, UE Dressing, LE Dressing, Toileting Eating Assistance: Independent Grooming Assistance: Minimal Bathing Assistance: Moderate UE Dressing Assistance: Contact guard assist LE Dressing Assistance: Maximal Toilet Assistance: Minimal Extremity Assessments: RUE Assessment RUE Assessment: Within Functional Limits Right UE Assessment Details: grossly 4/5 LUE Assessment LUE Assessment: Within Functional Limits Left UE Assessment Details: grossly 4/5 Balance: Sitting Balance Static Sitting-Level of Assistance: Standby Dynamic Sitting-Level of Assistance: (CGA - max A) Skilled Rationale: Positioning, Hand placement, Verbal cues, Full extension to upright positioning/posture, Technique of activity, Cues for increased safety Sitting Balance Skilled Intervention/Details: pt facilitated sitting EOB for a few minutes for MMT and room setup; during BLE MMT, pt with 1 posterior LOB requiring max A to correct Standing Balance Static Standing-Level of Assistance: Minimum assistance, 2-person assist Dynamic Standing-Level of Assistance: Minimum assistance, 2-person assist Standing-Balance Support: Gait belt, Hand-held assist Skilled Rationale: Positioning, Hand placement, Verbal cues, Full extension to upright positioning/posture, Technique of activity, Cues for increased safety Standing Balance Skilled Intervention/Details: pt facilitated 2 standing bouts including 1 stand pivot transfer with arm in arm support and no overt LOB; pt maintains upright posture throughout Neuro: Sensation Overall Sensation: Intact Sensation Comments: pt denies n/t Skin and Edema: Mobility Assessment: Supine to Sit Mobility [place] Level: Supine->Sit: moderate assist (50% patient effort) Bed Features/Set-up: Supine->Sit: Head of bed elevated, Use of bed rail Skilled Rationale: Positioning, Sequencing, Hand placement, Verbal cues, Facilitate anterior shift, Technique of activity, Cues for increased safety Skilled Intervention/Details: Supine->Sit: x1 to R EOB; assist to advance BLEs off EOB, pt initiates use of bed rail to bring trunk into upright posture however ultimately requires assist to bring trunk into upright Sit to Supine Mobility [place] Level: Sit->Supine: not tested Skilled Intervention/Details: Sit->Supine: pt seated in chair at end of session Transfer Assessment: Sit to Stand Transfer [place] Level: Sit->Stand: minimum assist (75% patient effort) Physical Assist: Sit->Stand: 2 person assist Assistive Device: Sit->Stand: gait belt, hand held assist Skilled Rationale: Positioning, Hand placement, Verbal cues, Technique of activity Skilled Intervention/Details: Sit->Stand: x2 from EOB; arm in arm support Stand to Sit Transfer [place] Level: Stand->Sit: minimum assist (75% patient effort) Physical Assist: Stand->Sit: 2 person assist Assistive Device: Stand->Sit: gait belt, hand held assist Skilled Rationale: Positioning, Hand placement, Verbal cues, Controlled descent for sitting Skilled Intervention/Details: Stand->Sit: x1 to EOB; x1 to chair; arm in arm support; verbal cues to reach back for sitting surface to assist with controlled descent with fair carryover/eccentric control Bed-Chair Transfer [place] Level: Bed<->Chair: minimum assist (75% patient effort) Physical Assist: Bed<->Chair: 2 person assist Assistive Device: Bed<->Chair: gait belt, hand held assist Skilled Rationale: Positioning, Sequencing, Hand placement, Verbal cues, Controlled descent for sitting, Cues for increased safety, Technique of activity Skilled Intervention/Details: Bed<->Chair: pt facilitated stand pivot transfer towards L from EOB to chair with arm in arm support; pt maintains appropriate upright posture with min verbal cues for sequencing/positioning; no LOB Functional Mobility: Wheelchair Assessment Patient currently uses wheelchair?: No Outcome Score(s): CURRENT [facility] Daily Activity Inpatient Short Form Putting on/Taking Off Lower Body Clothin - A Lot of Assistance Bathin - A Lot of Assistance Toiletin - A Little Assistance Putting on/Taking Off Upper Body Clothin - A Little Assistance Groomin - A Little Assistance Eatin - No Assistance CURRENT [facility] Activity Raw Score: 17 CURRENT [facility] Activity Functional Limitation/Modifier: 50.11% Currently Impaired in Daily Activity - CK Assessment & Plan: Patient was admitted for c/o weakness, found to have tumor thrombus, with hx of metastatic RCC and seen for therapy evaluation related to deconditioning 2/2 disease process impacting ADLs. Exam findings include impairments in: balance, endurance, reaction speed, posture, strength, transfers. These impairments contribute to occupational performance limitations including bathing, dressing, grooming, toileting, ADL transfers, functional mobility. Patient will benefit from skilled occupational therapy to address these impairments, occupational performance limitations, and participation restrictions. Patient's rehab potential is: good. Planned Therapy Interventions (OT Eval): ADL retraining, IADL retraining, balance training, bed mobility training, functional activity tolerance, strengthening, transfer training Patient Instruction/Education this session: Learners: Patient Education provided: Role of this discipline, Plan of care Teaching method: Verbal Education/Instruction Learner response: Applies knowledge Learning preferences: Auditory Learning considerations: No barriers/ready to learn Plan for next session: progress LB/standing ADLs and functional activity/mobility tolerance Acute OT Goals Plan of Care by Derick Keene OT at 01/10/2025 8:42 AM Version 1 of 1 Problem: OT - ADLs Goal: Lower Body Dressing - Patient will complete lower body dressing tasks with contact guard assistance using adaptive equipment/compensatory strategies as needed for improved ability to complete self-care activities. Outcome: Ongoing Goal: Grooming - Patient will complete grooming in standing with contact guard assistance for improved ability to safely complete ADLs. Outcome: Ongoing Goal: Toileting - Patient will complete toileting task with standby assistance and adaptive equipment as needed for improved ability to safely complete self-care activities. Outcome: Ongoing Problem: OT - Transfers Goal: Transfers Toilet/ Bedside Commode - Patient will transfer to/from toilet/bedside commode with contact guard assistance for improved ability to safely complete ADLs. Outcome: Ongoing Problem: OT - Balance Goal: Balance - Standing - Patient will perform ~3 minutes of functional task in standing with contact guard assistance and good balance to promote safety and improved balance required for self-care activities. Outcome: Ongoing Problem: OT - Endurance Goal: Endurance Functional Mobility - Patient will complete distance needed for common household mobility with no greater than min rest breaks for improved tolerance to safely complete I/ADL's Outcome: Ongoing OT treatment consisted of the following to work and progress towards the above goal(s): OT Evaluation and Treatment Time OT Evaluation (Moderate) Time Entry: 18 Evaluating Therapist: Derick Keene OT Additional Details: OT Co-Eval/Treatment Information Co-evaluation/co-treatment performed?: Yes, simultaneous billable skilled care was necessary due to medical complexity and functional deficits Other discipline: PT Rationale for need to co-eval/treat: postural control Co-treatment goal focus: balance, endurance OT Evaluation Complexity Occupational Profile and Client History: Moderate - expanded history Assessment of Occupational Performance: Moderate (3-5 performance deficits) Clinical Decision/Performance Deficits: Moderate (detailed assessments w/several treatment options) Time In: 08 Time Out: 0900 Total Visit Time: 18 minutes Total Treatment Time (skilled, billable minutes): 18 minutes Assisted by during session: JAVED Lanier PPE used during patient interaction: gloves Patient location at end of session: chair Alarms on at end of session: chair alarm Needs in reach. Upon discontinuation of Acute Care Occupational Therapy Services or patient discharge from the hospital this note represents the current Occupational Therapy Discharge Summary. Acute Physical Therapy Evaluation Prior Gross Functional Mobility: independent, used device Current AM-PAC score(s): CURRENT AM-PAC Mobility Raw Score: 11 Based on the above AM-PAC score(s) and PT clinical judgment, patient is a good candidate for discharge to Assisted Facility Barriers to discharge home: Patient unable to navigate stairs to enter home, Patient needs assistance with functional mobility Mobility equipment available at home: rollator, straight cane ADL equipment available at home: Equipment needed for discharge: to be determined Current therapy frequency recommendation in acute: PT Therapy Frequency: 5 times a week Activity Recommendations for outside of rehab session: up with 2 person assist and use of gait belt for SPT to chair with arm in arm support Precautions and Weightbearing Status: Existing Precautions/Restrictions: fall, supplemental oxygen (ESRD on HD (MWF)) Telemetry Patient Safety Communication Prior to Visit: Nursing Subjective: Patient supine with head of bed elevated upon PT entry and agreeable to session. Pain: General Pain Documentation (Adult, OB, Peds) Presence of Pain: reports pain/discomfort Pain Location: back DVPRS (Defense and Veterans Pain Rating Scale) DVPRS: Rest: 0- no pain Home Setting Residence: House (single story with basement; laundry on main level) Lives With: alone Patient reported support for discharge planning: intermittent physical assist, intermittent supervision (reports son could stay as needed (lives close by)) First floor setup: bedroom, walk-in shower Number of stairs to enter home: 3 (has ramp entry) Number of stairs in home: 10 (down to basement (does not need to use)) Mobility Equipment Available: rollator, straight cane Previous Level of Function Gross Functional Mobility: independent, used device Assistive Device: rollator Prior level ADL Overview: Independent with all ADLs Bed Mobility: independent Transfers: independent Ambulation: modified independent with home Prior Level of Function Details: denies recent falls; reports mostly staying at home; reports friend or son provides transport as needed Objective/Observation: Vitals/Vitals Responses to Treatment: No adverse effects observed during session. O2 Device: nasal cannula Flow (L/min): 2 Cognition Overall Cognitive Status: Within Functional Limits Arousal/Alertness: Appropriate responses to stimuli Orientation Level: Oriented to person, Oriented to time, Not assessed Following Commands: Follows one step commands without difficulty Safety Judgment: Decreased awareness of need for safety Awareness of Errors: Assistance required to identify errors made Deficits: Decreased awareness of deficits Attention Span: Appears intact Memory: Appears intact Problem Solving: Assistance required to implement solutions Vision Screen Currently wearing corrective lenses: Yes, Reading only Visual Impairments Observed?: No Speech Speech: no gross deficits noted Successful Methods (Communication Strategies): verbal speech Hearing Hearing: no gross deficits noted Extremity Assessments: RLE Assessment RLE Assessment: Strength Impaired Right LE Assessment Details: grossly 2+/5 LLE Assessment LLE Assessment: Within Functional Limits Left LE Assessment Details: generalized deconditioning Sensation Overall Sensation: Intact Sensation Comments: denies n/t Skin Integrity Skin Integrity Description: WFL (visible areas) Mobility Assessment: Supine to Sit Mobility [place] Level: Supine->Sit: moderate assist (50% patient effort) Bed Features/Set-up: Supine->Sit: Head of bed elevated, Use of bed rail Skilled Rationale: Positioning, Sequencing, Hand placement, Verbal cues, Technique of activity, Initiation and execution of task, Cues for increased safety Skilled Intervention/Details: Supine->Sit: x1 attempt to right EOB; requires assist with BLE management (with increased assist required for RLE) and trunk management despite attempt to use hand rail to bring trunk into upright position. Sit to Supine Mobility [place] Level: Sit->Supine: not tested Skilled Intervention/Details: Sit->Supine: Patient remained sitting upright in armed chair following session. Balance: Sitting Balance Static Sitting-Level of Assistance: Standby Dynamic Sitting-Level of Assistance: (CGA-max assist) Skilled Rationale: Positioning, Hand placement, Sequencing, Verbal cues, Technique of activity, Initiation and execution of task, Cues for increased safety Sitting Balance Skilled Intervention/Details: Patient tolerates unsupported sitting at EOB; demonstrates one posterior LOB when performing BLE MMT requiring max assist to correct. Standing Balance Static Standing-Level of Assistance: Minimum assistance, 2-person assist Dynamic Standing-Level of Assistance: Minimum assistance, 2-person assist Standing-Balance Support: Gait belt, Hand-held assist Skilled Rationale: Positioning, Sequencing, Hand placement, Verbal cues, Cues for increased safety, Initiation and execution of task, Technique of activity Standing Balance Skilled Intervention/Details: Patient performing multiple standing attempts at EOB, including one SPT to left from EOB to chair with BUE arm in arm support with verbal cues to promote proper sequencing throughout. No significant LOB noted. Transfer Assessment: Sit to Stand Transfer [place] Level: Sit->Stand: minimum assist (75% patient effort) Physical Assist: Sit->Stand: 2 person assist Assistive Device: Sit->Stand: gait belt, hand held assist Skilled Rationale: Positioning, Sequencing, Hand placement, Verbal cues, Arm in arm, Patellar block, Technique of activity, Initiation and execution of task, Full extension to upright positioning/posture Skilled Intervention/Details: Sit->Stand: x2 attempts from EOB with bilateral arm in arm support Stand to Sit Transfer [place] Level: Stand->Sit: minimum assist (75% patient effort) Physical Assist: Stand->Sit: 2 person assist Assistive Device: Stand->Sit: gait belt, armed chair, hand held assist Skilled Rationale: Positioning, Sequencing, Hand placement, Verbal cues, Arm in arm, Patellar block, Controlled descent for sitting, Technique of activity, Initiation and execution of task, Cues for increased safety Skilled Intervention/Details: Stand->Sit: x1 attempt to EOB; x1 attempt to armed chair with verbal cues to assist with promoting reaching back for chair prior to descent. Fair eccentric control observed throughout. Bed-Chair Transfer [place] Level: Bed<->Chair: minimum assist (75% patient effort) Physical Assist: Bed<->Chair: 2 person assist Assistive Device: Bed<->Chair: gait belt, armed chair, hand held assist Skilled Rationale: Positioning, Sequencing, Hand placement, Verbal cues, Arm in arm, Patellar block, Controlled descent for sitting, Technique of activity, Initiation and execution of task, Cues for increased safety Skilled Intervention/Details: Bed<->Chair: x attempt to left from EOB; requires bilateral arm in arm support and verbal cues to assist with promoting proper sequencing and proper alignment to chair prior to descent into seated position. Gait/Functional Mobility: Stairs: Outcome Score(s): CURRENT [facility] Basic Mobility Inpatient Short Form Turning over in bed: 2 - A Lot of Assistance Moving from lying on back to sittin - A Lot of Assistance Moving to and from bed to chair: 2 - A Lot of Assistance Sitting/standing from chair: 2 - A Lot of Assistance Walk in hospital room: 2 - A Lot of Assistance Climbing 3-5 steps with a railin - Total Assistance CURRENT [facility] Mobility Raw Score: 11 CURRENT [facility] Mobility Functional Limitation: 72.57% Impaired in Basic Mobility Interventions: Assessment & Plan: Patient is a 69 y.o. 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 Patient was seen for therapy evaluation related to mobility assessment and generalized deconditioning in the setting of the disease process. Exam findings include impairments in: Strength, Balance, Transfers, Gait/Locomotion, Motor control, Aerobic capacity/endurance. These impairments contribute to functional limitations including Decreased ambulation distance/endurance, Increased fall risk, Limited standing tolerance, Difficulty with bed mobility, Difficulty with transfers, Decreased functional mobility, Difficulty stair climbing/descent, Difficulty completing self-care activities (grooming, dressing, and/or feeding), Limited ability to complete guide dog trainer/maintenance. Patient to benefit from skilled PT services to promote increased functional activity tolerance, BLE strengthening, increased static/dynamic balance, and increased independence/safety throughout functional mobility tasks. Current clinical presentation is Evolving - changing/inconsistent clinical characteristics (Moderate). Patient history factors impacting Plan Of Care include PMHx. Patient will benefit from skilled physical therapy to address these impairments, functional limitations, and participation restrictions and has good rehab potential to achieve therapy goals. Planned Therapy Interventions: balance training, bed mobility training, endurance, functional activity tolerance, gait training, neuromuscular re-education, postural re-education, strengthening, transfer training Patient Instruction/Education this session: Learners: Patient Education provided: Activity outside of therapy, Functional transfers Teaching method: Verbal Education/Instruction Learner response: Applies knowledge Learning preferences: Auditory Learning considerations: No barriers/ready to learn Plan for next session: progress gait; BLE strengthening Acute PT Goals Plan of Care by Yannick Kruse PT at 01/10/2025 8:42 AM Version 1 of 1 Problem: PT - General Goals Goal: Supine <-> Sit Transfers - Patient will perform supine to/from sit transfers with contact guard assistance and with use of hospital bed features in order to improve functional mobility and safety. Outcome: Ongoing Goal: Sit <-> Stand Transfers - Patient will perform sit to/from stand transfers with contact guard assistance and least restrictive device in order to improve functional mobility and safety. Outcome: Ongoing Goal: Standing Endurance/Balance - Patient will perform standing balance tasks for 6-8 min with contact guard assistance and least restrictive device while maintaining an RPE of less than 5/10 to improve endurance and safety with standing tasks. Outcome: Ongoing Goal: Ambulation - Patient will ambulate 100 feet with contact guard assistance and least restrictive device to improve ability to safely navigate home and community. Outcome: Ongoing Goal: Stairs - Patient will ascend/descend 3 stairs with contact guard assistance, least restrictive device, and single railing(s) to improve ability to safely navigate home and community. Outcome: Ongoing Goal: Strength - Patient will demonstrate understanding of exercise program. Outcome: Ongoing PT treatment consisted of the following to progress towards the above goal(s): PT Evaluation and Treatment Time PT Evaluation (Moderate) Time Entry: 18 Evaluating Therapist: Yannick Kruse PT Additional Details: PT Co-Eval/Treatment Information Co-evaluation/co-treatment performed?: Yes, simultaneous billable skilled care was necessary due to medical complexity and functional deficits Other discipline: OT Rationale for need to co-eval/treat: postural control Co-treatment goal focus: mobility Evaluation Complexity Components History: Moderate (1-2 personal factors and/or comorbidities) Body Systems Review: Moderate (Addressing a total of 3 or more elements) Clinical Presentation: Evolving - changing/inconsistent clinical characteristics (Moderate) Clinical Decision Making Complexity: Moderate Time In: 0842 Time Out: 0900 Total Visit Time: 18 minutes Total Treatment Time (skilled, billable minutes): 18 minutes PPE used during patient interaction: gloves Patient location at end of session: chair, RN aware Alarms on at end of session: chair alarm, RN aware Needs in reach. Upon discontinuation of Acute Care Physical Therapy Services or patient discharge from the hospital this note represents the current Physical Therapy Discharge Summary. Department of Pharmacy Renal Documentation Note Patient: Krissy Wright Room/Bed: [address] [place] [address] Assessment and Plan: The patient is currently maintained on intermittent hemodialysis. The current medication profile was reviewed for appropriate dosing and timing and any contraindications to prescribed therapies. No adjustments to medication therapy are necessary at this time. A pharmacist will continue to follow patient and recommend drug levels and dose changes as clinically appropriate. Please contact with any questions, Name: Pascual Leung RPH Phone: [phone] Date/Time: 01/09/2025 1:31 PM PCRM attempted to meet with patient for initial assessment, however patient is off the unit at this time. PCRM will continue to attempt as able. PCRM will continue to follow with multidisciplinary team for ongoing assessment of needs and discharge planning. @ 1330 - Patient remains off unit at HD. @ 1520 - Providers at bedside. Will attempt initial assessment at a later time. QUINCY Greer RN Patient Care Fur Floor Worker P: [phone] *for evening (4:30 PM - 8:00 AM) or weekend/holiday needs, please page [phone] [facility] INPATIENT PROGRESS NOTE TODAY'S DATE: 01/09/2025 ADMIT DATE: 01/09/2025 4:40 AM REASON FOR ADMISSION: weakness, tumor thrombus Oncology Team: Genny (rad onc) ASSESSMENT AND PLAN Krissy Wright is a 69 y.o. 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 Tumor thrombus suspected in right renal vein and IVC. Numerous pulmonary nodules - CT chest showed no PE. Multiple pulmonary nodules. Stable multi lobulated masses in right kidney in in pancreas - consult hematology regarding AC - rec med onc consult to assist with restaging/workup of likely recurrent RCC, follow up w/ med onc outpatient - rec consulting radiology for overread of outside images to eval if tumor thrombus is true VTE - rec DVT US - ordered - pending - bleeding risk is high w/ RCC, if no DVT, may consider not resuming AC given he has ongoing hematuria. - Med Onc consulted - pending ESRD on HD - gets HD MWF, last 01/09, missed 01/08 - c/s nephrology -iHD today due to missed hd on Wednesday, seen on dialysis, see separate procedure note -check calcium and phosphorus with chemistry at least 3x weekly -check ferritin, iron studies, PTH, Vitamin D25, and uric acid if hospitalization to be >48 hours -trend Hgb, may need to consider inpatient SARITA if hospitalization prolonged -strict Is and Os -give nephrocaps 1 tab daily while on FIRE SUPPORT MAN -low Na, low K, low phos, high protein diet. Limit fluids to 1.2 L/day BLE edema - pt reports worsening BLE - hx of heart failure as below - will get BNP - ordered - elevated legs - BLE dopplers as above - pending - consider lasix, consider echo Hematuria Possible blood per rectum - 01/09 - reporting blood in toilet bowl after BM. Pt reports hx of hemorrhoids - Hgb stable; held heparin - nursing communication to upload any blood BM or gross hematuria to media tab - 01/09 light pink urine - Continue to trend Hgb RCC - pt following with Dr. Farris (rad onc) - s/p left nephrectomy - currently receiving radiation tx to T2, last 12/29 - currently on Inlyta - on a dex taper, currently decadron 4mg daily Complexity. Hypocalcemia - Continue to monitor and replete. Thrombocytopenia - Continue to monitor. Obesity, class I Body mass index is 33.63 kg/m . - Follow with PCP for dietary and lifestyle modifications. Hypothyroidism - Continue thyroid replacement. Wound Documentation Wound Pressure Injury Suspected 01/09/25 0500 Buttocks (Active) Date First Assessed/Time First Assessed: 01/09/25 0500 Primary Wound Type: Pressure Injury Secondary Wound Type - Pressure Injury: Suspected Present on Original Admission: Yes Device Related: no Location: Buttocks Confirmed Pressure Ulcer? (BILLET HEATER... Any conditions listed below are present on admission unless otherwise specified. .Metastatic Cancer, Location of Metastasis: see above Body mass index is 33.63 kg/m . CHRONIC PROBLEMS HFpEF HTN Afib - EKG NSR - cont home ASA, cartia, metop - pt states he stopped eliquis 3-4 months ago d/t hematuria Hypothyroidism - cont home levothyroxine GERD - cont home protonix T2DM - hold home glipizide - SSI - held 01/09 for low BG DVT prophylaxis: heparin(held for hematuria) Diet: DIET CARB CONTROLLED Continuous Infusions: Code Status: Full Code Fall Risk: Assessed for patient fall risk and discussed safety measures during rounding. CENTRAL LINES: Central Line Indications: No line currently in place If patient has multiple lines, please choose the answers of the next two questions to correlate with the lines listed above in descending order Can line/s be removed today? Select all that apply No line in place at this time Dressing/s Clean/Dry/Intact?: Select all that apply No line currently in place Serious Illness Conversation: Na Disposition: The patient will require continued hospitalization for weakness, tumor thrombus. They are expected to discharge TBD - pending PT/OT recs. Today they are expected to be medically ready for discharge on 1-2 days. Follow-ups made: - Rad Onc 01/19 - Rad Onc Dr. Farris - 03/22 Follow-ups needed: - Neph - heme? SUBJECTIVE Patient resting in bed comfortably this morning. He states that his pain is much better this morning after taking pain meds for pain in his back near when his kidneys. He typically gets HD MWF, but did not receive HD yesterday; he will be going down later this morning for HD. He reports that he is breathing 'okay' today and that he has less SOB today than he has been. He is currently on 2LNC; does not use any oxygen typically at home; baseline is RA. Son at bedside reports that this is not the first admission for SOB; explained WOL prior to dc to determine oxygen demand. He reports that he does have blood in his urine and stool; not when he wipes, but in the toilet. Sometimes it is BRB and other times darker; has reported hx of hemorrhoids. He reports being on Eliquis for afib which caused him to have blood in urine, so stopped Eliquis ~4 months ago and started daily bASA. He reports 2 BM this morning. Patient denies fever/chills, GALDAMEZ, dizziness/lightheadedness, SOB, CP, n/v/d/c, abdominal pain. Remainder of ROS queried and negative. OBJECTIVE Temp: [97.2 F (36.2 C)-97.5 F (36.4 C)] 97.2 F (36.2 C) Pulse (Heart Rate): [66-83] 66 Resp Rate: [18-28] 20 BP: (133-181)/(70-90) 144/70 O2 Sat (%): [91 %-97 %] 95 % Weight: [112.5 kg (248 lb 0.3 oz)] 112.5 kg (248 lb 0.3 oz) General: A&O to self, time, place, and situation. NAD. Chronically ill appearing HEENT: EOMI, anicteric sclerae, conjunctivae & lids symmetrical. No signs of inflammation. Neck no rigidity. Not NISQUALLY. MMM. Respiratory: Clear to auscultation bilaterally, no crackles/rhonchi/wheezes. No increased WOB. Cardiovascular: RRR, no murmurs, rubs, clicks or gallops. BLE 3+ pitting edema. Abdomen: Normoactive BS. Abdomen soft, nontender, nondistended. No palpable masses. Neurologic: CN II-XII intact. No focal deficits. Speech clear and coherent. Follows commands. Skin: Color, texture, and turgor normal. No rashes or lesions. LUE fistula. Psychosocial: Affect appropriate PIV with no evidence of erythema, drainage, or tenderness. Dressing is clean, dry, and intact. Lines/drains/airway with placement date: Peripheral AV Hemodialysis placed - 11/23/24 . Plan of care reviewed with the attending, Dr.Adam Didi MD: in agreement. Yoselin Hoffman PA-C Pager: [phone] The provider may be reached from 7a-7p at pager listed on QGenda. After these hours please page the water treatment operator or moonlighter. Cosigned by Chris Tolbert MD at 01/10/2025 7:30 AM EDT Associated attestation - Chris Tolbert MD - 01/10/2025 7:30 AM EDT I saw and evaluated Krissy Wright on 01/09/25. The case was discussed with the Resident/Fellow/MARIANNE. I personally reviewed the chief complaint, history of presenting illness, past medical/surgical history, family history, social history, allergies, review of systems and medications. I personally performed physical examination and reviewed the relevant imaging and laboratory data. I agree with the documented findings, assessment and plan with the following comments/corrections/additions. I personally performed all aspects of the medical decision making for this encounter. Discussed the diagnosis and plan of care with the patient and/or family who are in agreement. Krissy Wright is a 69 y.o. 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 Today, patient seen by hematology they recommend obtaining reads of outside CT scans and bilateral lower extremity duplex to evaluate for DVTs. Hold off on therapeutic anticoagulation for now. Regarding his lower extremity edema, nephrology consulted, and patient underwent HD today due to missed session on 01/08. Chris Tolbert MD Clinical Scoop Operator Division of Hospital Medicine Pager [phone] Occupational Therapy Attempt Note 01/09/2025 OT Therapy Completed: Attempted Attempted Reason: Other (see comments) (OT consult received. On review of chart, the patient is admitted for tumor thrombus of IVC with [place] [facility] team plan to consult Hem for management of AC. Last INR draw(1.1). OT to await further communication from team regarding activity permitted. ) Shanika Miguel OT Time In: 821 Time Out: 821 Total Visit Time: 0 minutes Total Treatment Time (skilled, billable minutes): 0 minutes Physical Therapy Attempt Note 01/09/2025 PT Therapy Completed: Attempted Attempted Reason: Patient is not medically optimized to tolerate therapy program (PT consult received. On review of chart, the patient is admitted for tumor thrombus of IVC with [place] [facility] team plan to consult Hem for management of AC. Last INR draw(1.1). Communicating with team(Lynda/Pushpa). Will await guidance before proceeding with mobility.) Kristy Lopez, PT Time In: 714 Time Out: 724 Total Visit Time: 10 minutes Total Treatment Time (skilled, billable minutes): 0 minutes documented in this encounter [facility] 01-11-2025 Plan of care note Krissy Wright is a 69 y.o. 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 -[facility] read does not identify any thrombus/tumor thrombus -Lower extremity duplex without any evidence of DVT - Patient had previously endorsed continued hematuria -If hematuria/bleeding is controlled consider starting on prophylactic anticoagulation Hematology will sign off Ray Lazo DO, PhD Fellow Physician Hematology and Medical Oncology [facility] Work Phone: 01-11-2025 Plan of care note Problem: Adult Inpatient Plan of Care Goal: Plan of Care Review Outcome: Progressing Pt complain of back pain, tylenol effective. Pt BLE edema appear to be better per pt, its a pitting plus 2. Fluid restrict in place pt had about 320ml fluid last night. Current resting with bed alarm on, bed lower, lock and call light in reach. T [facility] 01-11-2025 Consult note Formatting of is note might be different from the original. Vascular Access Consult Note Assessment: Patient seen and evaluated for Ultrasound guided lab draw. ID band present, patient verification completed, allergies verified, and patient/nurse questioned of limb precautions. Skin integrity assessed at time of insertion, no condition present that would prevent safe insertion of a peripheral IV with ultrasound to complete lab draw. Lab request verified, lab orders current. Insertion Using aseptic technique, Ultrasound guided PIV catheter inserted into rac site to obtain lab draw. Specimen collected. Ultrasound guided PIV removed. Specimen labeled at bedside. Collection process verified in IHIS x RN notified of the above Patient safety check completed prior to exiting room [x]Call light. [x]Bed locked. [x]Bed low. [x]Tray table within reach. Thank you for allowing our team to participate in the care of this patient. Vascular Access Team [id number] T [facility] 01-11-2025 Consult note Formatting of is note might be different from the original. Vascular Access Consult Note Assessment: Patient seen and evaluated for Ultrasound guided lab draw. ID band present, patient verification completed, allergies verified, and patient/nurse questioned of limb precautions. Skin integrity assessed at time of insertion, no condition present that would prevent safe insertion of a peripheral IV with ultrasound to complete lab draw. Lab request verified, lab orders current. Insertion Using aseptic technique, Ultrasound guided PIV catheter inserted into rac site to obtain lab draw. Specimen collected. Ultrasound guided PIV removed. Specimen labeled at bedside. Collection process verified in IHIS x RN notified of the above Patient safety check completed prior to exiting room [x]Call light. [x]Bed locked. [x]Bed low. [x]Tray table within reach. Thank you for allowing our team to participate in the care of this patient. Vascular Access Team [id number] Associated Order(s): IP CONSULT TO NEPHROLOGY NEPHROLOGY INPATIENT CONSULTATION NOTE I saw Krissy Wright at the [facility] on 01/09/2025. Reason for Consultation: ESRD Referring Provider: Chris Tolbert MD History of Present Illness: Krissy Wright is a 69 y.o. male with a past medical history of ESRD (iHD MWF), RCC, DM2, CHF, CAD, hx PE who we are consulted to see for ESRD mgmt. Patient initially went to OSH for SOB and had a CT which showed a new tumor thrombus in renal vein so was transferred to the [facility]. He is on HD MWF but missed Mondays treatment. Patient reports that he went to dialysis on Wednesday and was able to dialyze without issues. Doesn't make much urine. Started getting more SOB over the weekend and went to the ED. He missed his Wednesday dialysis due to being at the hospital. He is feeling less SOB today but still not back to baseline. No dizziness. No chest pain. No uremic symptoms. No recent fevers, chills, N/V/D/C. Past Medical History: Diagnosis Date Arrhythmia Atrial fibrillation CAD (coronary artery disease) Cancer Believed to be metastatic from renal cancer. Congestive heart failure Diabetes mellitus Dialysis patient DVT (deep venous thrombosis) Essential hypertension, benign GERD (gastroesophageal reflux disease) History of chemotherapy Pulmonary embolism Renal disease Past Surgical History: Procedure Laterality Date HIP REPLACEMENT Right NEPHRECTOMY REMOVAL CATARACT (PEM) Bilateral Scheduled Meds: Allopurinol 100 mg Oral Daily aspirin 81 mg Oral Daily dexAMETHasone 4 mg Oral Daily Diltiazem 120 mg Oral Q12H Finasteride 5 mg Oral Daily heparin 5,000 Units Subcutaneous Q8H 0800/1600/2200 [Held by provider] Insulin lispro Subcutaneous 4x daily w/meals, HS Levothyroxine 125 mcg Oral Before BKF Metoprolol 100 mg Oral BID Pantoprazole 40 mg Oral Daily IV Infusions: Allergies Allergen Reactions Penicillins Other Reaction(s): Other (See Comments), Unknown unknown Family History Problem Relation Age of Onset Diabetes Mother Stroke Mother Heart Disease - Other Mother Heart Disease - Other Father Social History Socioeconomic History Marital status: Single Spouse name: Not on file Number of children: Not on file Years of education: Not on file Highest education level: Not on file Occupational History Not on file Tobacco Use Smoking status: Never Smokeless tobacco: Never Substance and Sexual Activity Alcohol use: Not Currently Drug use: Not Currently Sexual activity: Not on file Other Topics Concern Not on file Social History Narrative Not on file Social Drivers of Health Financial Resource Strain: Not on file Food Insecurity: Not on file Transportation Needs: Not on file Physical Activity: Not on file Stress: Not on file Social Connections: Not on file Personal Safety: Not on file Housing Stability: Not on file Review of Systems: ROS negative except for as stated in HPI Physical Examination: Vital Signs BP 175/85 Pulse 76 Temp 97.5 F (36.4 C) (Oral) Resp (!) 26 Ht 1.829 m (6' 0.01) Wt 112.5 kg (248 lb 0.3 oz) SpO2 94% BMI 33.63 kg/m Smoking Status Never No intake/output data recorded. Constitutional: Well developed, well nourished, comfortable appearing HEENT: Normocephalic and atraumatic. Sclera non-icteric, mucus membranes moist Chest: Respiratory effort is normal. Cardiovascular: Exam reveals no gallop or rub. 2+ peripheral pulses bilaterally Abdominal: Soft. No tenderness, no rebound Musculoskeletal: Grossly normal range of motion all extremities, no joint swelling Extremities: Warm and well perfused. 2+ peripheral edema Neurological: alert, following commands Skin: No obvious rash Dialysis Access: AVF Relevant Data: Lab Results Component Value Date SODIUM 138 01/08/2025 POTASSIUM 4.2 01/08/2025 CHLORIDE 98 01/08/2025 CO2 24 01/08/2025 BUN 96 (H) 01/08/2025 CREATSERUM 5.34 (H) 01/08/2025 GLUCOSE 83 01/09/2025 Lab Results Component Value Date WBC 10.32 (H) 01/08/2025 HGB 8.7 (L) 01/08/2025 HCT 27.7 (L) 01/08/2025 PLATELET 145 (L) 01/08/2025 MCV 93.9 01/08/2025 Lab Results Component Value Date SPGRVTYUR 1.018 01/09/2025 GLUCOSEURINE Negative 01/09/2025 KETONESURINE Negative 01/09/2025 BLOODURINE Moderate (A) 01/09/2025 NITRITESURIN Positive (A) 01/09/2025 LEUKOCESTUR Large (A) 01/09/2025 WBCURINE > 20 (A) 01/09/2025 RBCURINE >25 (A) 01/09/2025 BACTERIAURIN TRACE (A) 01/09/2025 Lab Results Component Value Date CREATSERUM 5.34 (H) 01/08/2025 CREATSERUM 5.35 (H) 01/08/2025 Lab Results Component Value Date CALCIUM 7.9 (L) 01/08/2025 PHOSPHORUS 7.4 (H) 01/08/2025 Assessment/Plan: Impression: ESRD on iHD MWF Blood pressure / volume status - BP goal SBP < 140 Anemia of CKD - Hgb goal 10-11 g/dL 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 Nutrition in ESRD Dialysis access - AVF. No issues on exam, assess with dialysis. Recommendations: -iHD today due to missed hd on Wednesday, seen on dialysis, see separate procedure note -check calcium and phosphorus with chemistry at least 3x weekly -check ferritin, iron studies, PTH, Vitamin D25, and uric acid if hospitalization to be >48 hours -trend Hgb, may need to consider inpatient SARITA if hospitalization prolonged -strict Is and Os -give nephrocaps 1 tab daily while on FIRE SUPPORT MAN -low Na, low K, low phos, high protein diet. Limit fluids to 1.2 L/day Pascual Hale MD Division of Nephrology Associated Order(s): IP CONSULT TO HEMATOLOGY Images from the original note were not included. Hematology Consult Note Reason for Consult: hx RCC. 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 appreciate recs on AC Consulting Team: MERVAT Bravo Assessment & Recommendations: IMPRESSION: Hx RCC, clear type s/p left radical nephrectomy with negative lymph nodes on 10/29/2010: s/p ipilumumab/nivolamab, s/p pembrolizumab/axitinib, and currently on axitinib 5mg once daily. Found to have upper back pain end of October 2024 and work-up showed a T2 pathologic fracture SINS 13 (unstable) and Bilsky 1c. Pt deemed not a surgical candidate. Follows w/ rad onc for 30 Gy in 5 fractions given the Bilsky grade. Reports ongoing hematuria despite self-discontinuing eliquis 4 months ago. Hx of VTE: pt endorses hx of DVT in setting of being sedentary prior to his RCC diagnosis, was supposed to be on lifelong AC, was on xarelto at one point and switched to eliquis; he self-dc'd his eliquis 4 months ago due to hematuria which has not resolved. ESRD on HD RECOMMENDATIONS: - recommend med onc consult to assist with restaging/workup of likely recurrent RCC, follow up w/ med onc outpatient - recommend consulting radiology for overread of outside images to eval if tumor thrombus is true VTE - recommend DVT US - bleeding risk is high w/ RCC, if no DVT, may consider not resuming AC given he has ongoing hematuria. This patient was discussed with the Attending, Dr. Wright. Please refer to attending attestation for final recommendations. If you have any questions or need any further information, please feel free to contact the Hematology Consult Service. Our pager number is found under the heading IM Consult Serv Hematology on [email or web address]. Thank you for allowing us to participate in the care of Krissy Wright. Yariel Banks MD Hematology/Oncology Fellow History of Present Illness: Krissy Wright is a 69 y.o. male with history of ESRD on HD, Afib, HFpEF, T2DM, HTN, GERD, hypothryroidism, and metastatic RCC who presents with tumor thrombus found at OSH. Hematology is consulted for AC recs. Pt went to OSH d/t weakness, constipation, endorses decreased UOP in setting of being on HD. Transferred to [facility] on 01/09/2025 for further management. Pt dx w/ clear cell RCC 2010, underwent left radical nephrectomy with negative lymph nodes on 10/29/2010, s/p ipilumumab/nivolamab, s/p pembrolizumab/axitinib, and was on axitinib 5mg once daily. Found to have upper back pain end of October 2024 and work-up showed a T2 pathologic fracture SINS 13 (unstable) and Bilsky 1c. Pt deemed not a surgical candidate. Follows w/ rad onc for 30 Gy in 5 fractions given the Bilsky grade. Pt says he has a hx of DVT prior to his cancer diagnosis. He was on xarelto and then switched to eliquis at some point which he self-discontinued about 4 months ago without telling his doctors. He dc'd it because of hematuria, which did not improve after stopping his eliquis, says it is an ongoing issue. CTAP 01/08 at OSH w/ thrombus as shown below, about 3.1cm in diameter: ROS A full review of systems was negative with the exception of what is noted in the HPI. Medical/Surgical History: Past Medical History: Diagnosis Date Arrhythmia Atrial fibrillation CAD (coronary artery disease) Cancer Believed to be metastatic from renal cancer. Congestive heart failure Diabetes mellitus Dialysis patient DVT (deep venous thrombosis) Essential hypertension, benign GERD (gastroesophageal reflux disease) History of chemotherapy Pulmonary embolism Renal disease Past Surgical History: Procedure Laterality Date HIP REPLACEMENT Right NEPHRECTOMY REMOVAL CATARACT (PEM) Bilateral Family/Social History: Family History Problem Relation Age of Onset Diabetes Mother Stroke Mother Heart Disease - Other Mother Heart Disease - Other Father Social History Socioeconomic History Marital status: Single Spouse name: Not on file Number of children: Not on file Years of education: Not on file Highest education level: Not on file Occupational History Not on file Tobacco Use Smoking status: Never Smokeless tobacco: Never Substance and Sexual Activity Alcohol use: Not Currently Drug use: Not Currently Sexual activity: Not on file Other Topics Concern Not on file Social History Narrative Not on file Social Drivers of Health Financial Resource Strain: Not on file Food Insecurity: Not on file Transportation Needs: Not on file Physical Activity: Not on file Stress: Not on file Social Connections: Not on file Personal Safety: Not on file Housing Stability: Not on file Physical Exam: Vital Signs: BP 165/87 (BP Location: Right arm, BP Position: Lying) Pulse 75 Temp 97.4 F (36.3 C) (Oral) Resp 22 Ht 1.829 m (6' 0.01) Wt 112.5 kg (248 lb 0.3 oz) SpO2 95% BMI 33.63 kg/m Smoking Status Never General: no acute distress, lying comfortably in bed, chronically ill-appearing HEENT: NC/AT, anicteric sclera Neck: supple, normal ROM Respiratory: CTAB, no wheezes, rales or rhonchi, no accessory muscle use Cardiovascular: RRR, no m/r/g, no cyanosis Abdomen: soft, nontender, nondistended, no hepatosplenomegaly, +bowel sounds Extremities: moves all extremities, +bilateral pitting edema, +LUE fistula Neurological: no gross focal deficits, alert and oriented Skin: warm and dry, no rashes or ulcerations Psychiatric: appropriate mood and affect Labs/Imaging/Path: CBC Lab Results Component Value Date WBC 10.32 (H) 01/08/2025 HGB 8.7 (L) 01/08/2025 HCT 27.7 (L) 01/08/2025 PLATELET 145 (L) 01/08/2025 MCV 93.9 01/08/2025 Chemistry Bun/Creat/Cl/CO2/Glucose: 96/5.34/98/24/83 (01/08 2321-01/09 814) Lab Results Component Value Date LDH 454 (H) 01/08/2025 Coagulation Studies Lab Results Component Value Date PT 13.9 01/08/2025 INR 1.1 01/08/2025 No results found for: FIBRINOGEN No results found for: DDIMER Iron studies: No results found for: IRON, FERRITIN No results found for: RETIC, RETICABS Other Labs and Imaging reviewed No orders to display Cosigned by Julee Wright MD at 01/09/2025 8:11 PM EDT Associated attestation - Julee Wright MD - 01/09/2025 8:11 PM EDT I saw and examined the patient on 01/09/[address] Banks. Labs, radiology, and other tests were reviewed. The plan was developed mutually and discussed with the entire treating team (including house staff, APPs). The above note has been reviewed. Patient and/or family are aware of plan. I directed the patient's care and counseling, and directed the assessment and plan as documented above. Krissy Wright is a 69 y.o. 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 Patients with tumor thrombus may carry high risks of VTE, bleeding, and mortality. The impact of anticoagulation for treatment of tumor thrombus is unclear. Tumor thrombus may obstruct venous blood flow, leading to stasis and predisposing to subsequent VTE, with 6-8 fold increase reported in the literature. However, anticoagulation also increases the risk of bleeding, and increased risk of bleeding events has been reported with the use of both prophylactic and therapeutic anticoagulation doses in patients with RCC and tumor thrombus in a retrospective study involving 211 patients (https://[email or web address]). Mr. Wright reports a remote history of DVT in the legs that he states was attributed to inactivity and states that he was on anticoagulation with Xarelto followed by Eliquis, which he stopped taking about 4 months ago due to hematuria. He states that he continues to have hematuria. Physical exam is significant for bilateral LE edema. Please obtain new reads of outside CT's that reported the tumor thrombus by our Radiologists to ensure they agree with the diagnosis. Please obtain bilateral lower extremity dopplers to evaluate for concurrent DVT. If concurrent LE DVT is found, he would benefit from therapeutic anticoagulation with apixaban. RCC is likely to be associated with higher bleeding events. Would consider avoiding therapeutic anticoagulation if no concurrent DVT is identified, especially in light of hematuria. Julee Wright MD, PhD documented in this encounter [facility] 01-10-2025 Nurse Note Images from the original note were not included. WOC/ET Nursing Consult/Evaluation Note Evaluated Krissy Wright for wounds located on the sacrum and left buttock. Description of wound/Recommendation: Sacrum: Fissure present 2/2 moisture associated skin damage and friction. Woud bed yellow, moist and painful w palpation. Apply a combination of Z-guard and Antifungal barrier cream. Left Buttock: Skin changes consistent with chronic moisture damage as well as a small opening with a reddened and yellow base. Periwound currently not as reddened/purple as admission photo. Pt was able to briefly stand up from chair on his own for assessment, but otherwise uses the Reva-steady this admission. Apply combination of Z-guard and Antifungal barrier cream BID and PRN if soiled. Bed Surface: [facility] Discharge Recommendations: Patient may continue care as described above at discharge. See image(s) below: Tramaine Skin Assessment: Tramaine Risk Assessment Sensory Perception: 3-->slightly limited Moisture: 3-->occasionally moist Activity: 3-->walks occasionally Mobility: 2-->very limited Nutrition: 2-->probably inadequate Friction and Shear: 1-->problem Tramaine Score: 14 Tramaine Score: Tramaine Score: 14 Body mass index is 31.74 kg/m . Total time spent in assessment and treatment of patient: 15 min Wound Documentation: 01/10/25 1700 Wound Irritant Contact Dermatitis Perspiration 01/09/25 0500 Coccyx Date First Assessed/Time First Assessed: 01/09/25 0500 Primary Wound Type: Irritant Contact Dermatitis Secondary Wound Type - Irritant Contact Dermatitis: Perspiration Present on Original Admission: Yes Device Related: no Location: Coccyx Confi... Dressing Status Open to Air Assessment Painful;Yellow;Moist Virgen-Wound Assessment Moist ;Intact;[place] Non-staged Wound Description Partial thickness Wound Length (cm) 2 cm Wound Width (cm) 0.3 cm Wound Surface Area (cm^2) 0.6 cm^2 Wound Depth (cm) 0.2 cm Wound Volume (cm^3) 0.12 cm^3 Treatment Applied soap and water, irrigated/cleansed with;barrier applied;antifungal $$ Dressing Applied open to air Periwound Care Applied soap and water, cleansed with Plan Problem moisture associated skin damage Current Plan antifungal;zinc barrier Visit Type Consult with RN WOCT Visit Frequency (Sign off) Last Date Seen 01/10/25 RN notified of assessment and plan. We will sign off at this time. Please page #[phone] or secure chat [facility]. Shirley MATHEW, RN-, CWON [phone] [facility] 01-10-2025 Nurse Note 01/10/25 1345 Tx Assessment/Safety (Pre/Post) Blood Liters Processed (BLP) 78.6 Transport Modality bed Dialyzer Clearance streaked Tolerance to Dialysis Procedure Well, net uf 2.5L removed, via L-avf. Maintained soft bradycardic, & in B/C-prof per crit Treatment Assessment UF Goal/mL: 71002 Fluid Removed/mL: 2800 ml Machine Temperature 98.2 F (36.8 C) Crit Line - Hematocrit 33.9 % Crit Line - Hemoglobin 11.5 g/dL Crit Line - Blood Volume % -16.4 % Crit Line - SvO2 98.9 % Profile B Hemodialysis, Lines Secure/Site Visible Yes Hemodialysis, Safety Factors access site visible and intact;vital signs stable;no supplemental oxygenation needed Hemodialysis, Comments resting with stable VS, no complaints;patient tolerating treatment well (iHD tx ended, pt stable) Vital Signs Temp 97.4 F (36.3 C) Temp source Oral Pulse (Heart Rate) 63 Heart Rate Source Monitor Resp Rate 22 BP 141/70 MAP (mmHg) 99 mmHg BP Method Automatic BP Location Right arm BP Position Lying O2 Sat (%) 99 % O2 Device room air ECG/Rhythm Lead Monitored Lead II;V1 Rhythm sinus bradycardia Post HD Line/AV Access Site Care Arterial Needle - site held (min) 8 minutes Venous Needle - site held (min) 8 minutes Treatment Record Stop Time 1345 Initiation prime given (specify mL) Fluid Volume Removal 2800 Total Fluid Given 300 Returning to Patient Care Unit Transport Testing Complete yes NPO no Additional Restrictions none Changes In Status no [place] Procedure Orders Written no Sending RN/Tech Name Geovany RN Phone [phone] Returning to Patient Care Unit Transport yes Cognitive/Neuro/Behavioral WDL Cognitive/Neuro/Behavioral WDL WDL Cardiovascular WDL Cardiac WDL WDL General Pain Documentation (Adult, OB, Peds) Presence of Pain denies pain/discomfort Presence of Pain Score (Auto-calculated) 0 Sleep/Rest/Relaxation (Adult,Pediatric,OB) Sleep/Rest/Relaxation awake LOC/Significant Event RASS ([place] Agitation-Sedation Scale) 0-->alert and calm Significant Event Off circ, conversant Post-Hemodialysis Assessment Report given to Prim NR [facility] 01-10-2025 Nurse Note 01/10/25 0927 Referral Information Arrived From emergency department;home or self-care Readmission Information Was patient readmitted within 30 Days? No Information Source Information Source patient Outpatient Providers Outpatient Providers Updated In IHIS No Contact Information Management Accounts Manager/SW Added to Care Team Yes This Substance Addiction Coordinator is Primary Management Accounts Manager/SW Yes Management Accounts Manager Name Anali Natarajan Management Accounts Manager's Social Work Contact Name see care team Living Environment Lives With alone Living Arrangement and Set Up house (one-story) Provides Primary Care For no one Primary Care Provided By self Support System Extended family;Friends Able to Return to Prior Arrangements yes Functional Status Patient's Functional Status Prior To This Admission? Independent Are There Status Changes This Admission? No Changes Observed Since Admission? No Changes Observed Concerns With Patient Being Able To Care For Themselves At Discharge? Has Assistance (Friend, Family, Skilled Provider) Who Is Patient's Primary Contact For Discharge Planning, Education And Care For Discharge? sons, Anthony & Melissa, and SO, Heidi Can Support Person Meet The Care Needs Of The Patient? Yes Employment/Financial Employed? Retired Employment/Financial Concerns no Source Of Income social security Insurance Medical Insurance Verified Yes Prescription Coverage Yes Pharmacy updated in IHIS No Initial Discharge Planning Home Care Services (MILLED RUBBER TENDER) No Home Therapies (MILLED RUBBER TENDER) None DME (MILLED RUBBER TENDER) Straight cane;Rollator Patient Goal for Discharge Return home with assistance from family and friends Expected Discharge Disposition Anticipated Services at Discharge Assisted;Physical Therapy;Occupational Therapy;Outpatient follow up Current Discharge Risk chronically ill Transportation Available family or friend will provide Assessment/Concerns to be Addressed Concerns To Be Addressed denies needs/concerns at this time PCRM Initial Assessment Met with patient to complete the initial assessment. Explained role and function of PCRM in multidisciplinary team. Demographic information reviewed with patient/family and confirmed as correct. 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 PT/OT recommendations pending at this time. Anticipate he may need HHC vs SNF. Final plan will be determined closer to discharge, pending therapy and medical team recommendations. Patient/family verbalized understanding and agreement with the plan of care. Patient/family have no questions at this time. PCRM will continue to follow patient with multidisciplinary team for ongoing assessment of needs and for discharge planning. Medical team updated. QUINCY Greer RN Patient Care Fur Floor Worker P: [phone] *for evening (4:30 PM - 8:00 AM) or weekend/holiday needs, please page [phone] [facility] 01-10-2025 Plan of care note Problem: OT - ADLs Goal: Lower Body Dressing - Patient will complete lower body dressing tasks with contact guard assistance using adaptive equipment/compensatory strategies as needed for improved ability to complete self-care activities. Outcome: Ongoing Goal: Grooming - Patient will complete grooming in standing with contact guard assistance for improved ability to safely complete ADLs. Outcome: Ongoing Goal: Toileting - Patient will complete toileting task with standby assistance and adaptive equipment as needed for improved ability to safely complete self-care activities. Outcome: Ongoing Problem: OT - Transfers Goal: Transfers Toilet/ Bedside Commode - Patient will transfer to/from toilet/bedside commode with contact guard assistance for improved ability to safely complete ADLs. Outcome: Ongoing Problem: OT - Balance Goal: Balance - Standing - Patient will perform ~3 minutes of functional task in standing with contact guard assistance and good balance to promote safety and improved balance required for self-care activities. Outcome: Ongoing Problem: OT - Endurance Goal: Endurance Functional Mobility - Patient will complete distance needed for common household mobility with no greater than min rest breaks for improved tolerance to safely complete I/ADL's Outcome: Ongoing [facility] 01-10-2025 Plan of care note Problem: PT - General Goals Goal: Supine <-> Sit Transfers - Patient will perform supine to/from sit transfers with contact guard assistance and with use of hospital bed features in order to improve functional mobility and safety. Outcome: Ongoing Goal: Sit <-> Stand Transfers - Patient will perform sit to/from stand transfers with contact guard assistance and least restrictive device in order to improve functional mobility and safety. Outcome: Ongoing Goal: Standing Endurance/Balance - Patient will perform standing balance tasks for 6-8 min with contact guard assistance and least restrictive device while maintaining an RPE of less than 5/10 to improve endurance and safety with standing tasks. Outcome: Ongoing Goal: Ambulation - Patient will ambulate 100 feet with contact guard assistance and least restrictive device to improve ability to safely navigate home and community. Outcome: Ongoing Goal: Stairs - Patient will ascend/descend 3 stairs with contact guard assistance, least restrictive device, and single railing(s) to improve ability to safely navigate home and community. Outcome: Ongoing Goal: Strength - Patient will demonstrate understanding of exercise program. Outcome: Ongoing [facility] 01-09-2025 Procedure note Associated Ord er(s): GENERAL PROCEDURE Hemodialysis Note: Patient seen on HD Ix: Clearance and Volume UF (kg): 2L K (meq): 3mEq Filter: Optiflux BFR (ml/min): 400 DFR (ml/min): 800 Access: AVF Wt Readings from Last 3 Encounters: 01/09/25 112.5 kg (248 lb 0.3 oz) 12/29/24 105.7 kg (233 lb) 12/28/24 105.7 kg (233 lb) Temp Readings from Last 3 Encounters: 01/09/25 97.2 F (36.2 C) (Oral) 01/08/25 97.4 F (36.3 C) (Oral) 12/29/24 97.9 F (36.6 C) (Infrared) BP Readings from Last 3 Encounters: 01/09/25 144/70 01/09/25 175/87 12/29/24 148/69 Pulse Readings from Last 3 Encounters: 01/09/25 66 01/09/25 77 12/29/24 84 Diagnosis addressed: ESRD on Hemodialysis Patient tolerating HD well but not getting the UF we wanted and BUN quite high so will plan on dialysis again tomorrow which is also his normal HD day. Pascual Hale MD Nephrology Attending [facility] 01-09-2025 Procedure note Associated Ord er(s): GENERAL PROCEDURE Hemodialysis Note: Patient seen on HD Ix: Clearance and Volume UF (kg): 2L K (meq): 3mEq Filter: Optiflux BFR (ml/min): 400 DFR (ml/min): 800 Access: AVF Wt Readings from Last 3 Encounters: 01/09/25 112.5 kg (248 lb 0.3 oz) 12/29/24 105.7 kg (233 lb) 12/28/24 105.7 kg (233 lb) Temp Readings from Last 3 Encounters: 01/09/25 97.2 F (36.2 C) (Oral) 01/08/25 97.4 F (36.3 C) (Oral) 12/29/24 97.9 F (36.6 C) (Infrared) BP Readings from Last 3 Encounters: 01/09/25 144/70 01/09/25 175/87 12/29/24 148/69 Pulse Readings from Last 3 Encounters: 01/09/25 66 01/09/25 77 12/29/24 84 Diagnosis addressed: ESRD on Hemodialysis Patient tolerating HD well but not getting the UF we wanted and BUN quite high so will plan on dialysis again tomorrow which is also his normal HD day. Pascual Hale MD Nephrology Attending documented in this encounter [facility] 01-09-2025 Plan of care note Pt assessment is unchanged from prior, unless otherwise noted. Pt was hypoglycemic and received dextrose this morning. Pt received hemodialysis today with 1.8L off. Problem: Adult Inpatient Plan of Care Goal: Plan of Care Review 01/09/2025 1527 by Chris Piper RN Outcome: Progressing 01/09/2025 1526 by Chris Piper RN Outcome: Progressing Goal: Patient-Specific Goal (Individualized) 01/09/2025 1527 by Chris Piper RN Outcome: Progressing 01/09/2025 1526 by Chris Piper RN Outcome: Progressing Goal: Absence of Hospital-Acquired Illness or Injury 01/09/2025 1527 by Chris Piper RN Outcome: Progressing 01/09/2025 1526 by Chris Piper RN Outcome: Progressing Goal: Optimal Comfort and Wellbeing 01/09/2025 1527 by Chris Piper RN Outcome: Progressing 01/09/2025 1526 by Chris Piper RN Outcome: Progressing Goal: Readiness for Transition of Care 01/09/2025 1527 by Chris Piper RN Outcome: Progressing 01/09/2025 152 by Chris Pipre RN Outcome: Progressing Problem: Hemodialysis Goal: Safe, Effective Therapy Delivery Outcome: Progressing Goal: Effective Tissue Perfusion Outcome: Progressing Goal: Absence of Infection Signs and Symptoms Outcome: Progressing [facility] 01-09-2025 Nurse Note 01/09/25 1320 Tx Assessment/Safety (Pre/Post) Blood Liters Processed (BLP) 67.6 Transport Modality bed Dialyzer Clearance moderate Tolerance to Dialysis Procedure well. Removed 1.8L net UF per crit line. Treatment Assessment Blood Flow Rate (BFR) mL/min 400 Dialysate Flow Rate (DFR) mL/min 800 mL/min Arterial Pressure (AP) mmHg -210 Venous Pressure (DISTRIBUTION OPERATIONS SUPERVISOR) mmHg 150 Transmembrane Pressure (TMP) mmHg 90 UF Goal/mL: 2100 Machine Time 1320 Ultrafiltration Rate (UFR) mL/hr 810 Fluid Removed/mL: 2100 ml Machine Temperature 98.6 F (37 C) Crit Line - Hematocrit 34.6 % Crit Line - Hemoglobin 11.8 g/dL Crit Line - Blood Volume % -15.4 % Crit Line - SvO2 97.6 % Profile A Hemodialysis, Lines Secure/Site Visible Yes Hemodialysis, Safety Factors supplemental oxygenation;access site visible and intact;vital signs stable Hemodialysis, Comments other (see comments) (iHD completed) Vital Signs Temp 97.4 F (36.3 C) Temp source Oral Pulse (Heart Rate) 72 Heart Rate Source Monitor Resp Rate 23 BP 146/77 MAP (mmHg) 104 mmHg BP Method Automatic BP Location Right arm BP Position Lying O2 Sat (%) 96 % O2 Device nasal cannula Flow (L/min) 2 ECG/Rhythm Lead Monitored Lead II Rhythm sinus rhythm Hemodialysis Peripheral AV Access 11/23/24 1430 Hemodialysis Placement Date/Time: 11/23/24 1430 Present On Admission : yes AV Access Type: fistula Indication: Hemodialysis Location: forearm, left Assessment bruit audible, strong;thrill palpable, strong Site Preparation/Maintenance gauze bandage applied;other (see comments) (surgifoam) Site Signs/Symptoms site asymptomatic Securement other (see comments) (3m micropore tape) Phlebitis 0-->no symptoms Infiltration 0-->no symptoms Post HD Line/AV Access Site Care Arterial Needle - site held (min) 5 minutes Venous Needle - site held (min) 5 minutes Treatment Record Stop Time 1320 Fluid Volume Removal 2100 Total Fluid Given 300 Returning to Patient Care Unit Transport O2 NC Changes In Status no [place] Procedure Orders Written no Sending RN/Tech Name Yasmany Phone [phone] Returning to Patient Care Unit Transport yes Cognitive/Neuro/Behavioral WDL Cognitive/Neuro/Behavioral WDL WDL Sleep/Rest/Relaxation (Adult,Pediatric,OB) Sleep/Rest/Relaxation awake LOC/Significant Event RASS ([place] Agitation-Sedation Scale) 0-->alert and calm Significant Event iHD completed Post-Hemodialysis Assessment Report given to Chris MCGUIRE [facility] 01-09-2025 Hospital Discharge instructions Anali Mesa RN - 01/09/2025 12:55 PM EDT Images from the original note were not included. Your Management Accounts Manager (PCRM) has arranged your appointments for follow up based on your preference of where you would like to continue your care. If you are unable to attend appointments that have been arranged for you, it is your responsibility to call to reschedule at least 48 hours prior to the appointment date. If needed, your PCRM has arranged additional care such as home health, infusion services, or durable medical equipment based on your preference and options available by your insurance and local agencies. Your After Visit Summary (AVS) has provided you with instructions for your discharge. It is your responsibility to ask questions if you have any. Please contact your medical care team at the numbers listed if you should have any additional questions. General Information for discharge: Follow up appointments as noted above. Please contact the listed provider if you are unable to make any of these appointments. Please notify your physician if you have difficulty obtaining any of your medications. Miscellaneous Education [facility] Care Classes The [employer] [facility] offers a series of monthly classes about integrative care. Integrative care involves other care methods that may be used along with your other cancer treatment. Learn about the role of exercise, diet and nutrition, manual and movement therapies as part of a cancer care program. Classes also provide a chance to share thoughts and concerns with other cancer survivors, their families and friends. For more information, contact [employer] at or visit our website at www.[email or web address] Falls Prevention Many falls can be prevented. Here are some things you can do. First, tell your doctor or nurse if you have fallen or nearly fallen. Ask if you could see a physical therapist (PT) to help you improve your strength and balance. Check with your doctor or pharmacist to see if any of the medicines that you take may increase your risk for falls. Have your vision checked each year. See your doctor if you are dizzy or weak with any illness. Wear comfortable shoes with low, broad heels and soles that palliative nurse. Drink enough liquid each day. Ask your doctor how much is enough. Consider using an emergency personal medical alert system. Get up slowly after sitting or lying down. Remove throw rugs, improve lighting, use reflective tape on stairs. Positive Coping Skills Coping skills are a way to decrease the negative effects of stress, anger, and anxiety. It is important to use these skills daily to maintain a manageable level of stress, decrease anxiety, and deal positively with anger. Examples of coping skills: Exercise or take a walk daily. Use relaxation or deep breathing. Engage in a positive recreation interest. Listen to calming music. Manage your time well. Talk to someone. Take a break. Eat a balanced diet. Maintain a regular sleep schedule. Additional Contacts: Cancer Resources For more information about support groups and other resources offered, contact: -[employer] at [phone] to find out about support groups offered by [facility] -[place] [employer] at [phone] or online at www.cancer.org -Leukemia and Lymphoma Society at 099-718-0366 or online at www.lls.org -[facility] at 870-862-4847 or online at www.lifecareallSonian.org -[facility] at 419-814-7258 or online at www.ovariancanceroh.org -[place] [employer] at 977-821-6412 or online at www.abta.org -National Brain Tumor Foundation at 657-445-1087 or online at www.braintumor.org Patient education videos are available on [facility] website. These videos may help you to better understand your cancer or cancer treatments. <a href=http://cancer.osu.edu/kapil cr target=_blank>Cancer Videos</a> However, if you are using a smart phone, you will need to use http://cancer.os.edu/patientedvid eos. Additional Needs after hospital discharge: If you have any needs after you have discharged from the hospital, you will need to call your Oncologist's office and they will be able to assist you. For MEDICAL QUESTIONS Wednesday through Wednesday 7am to 5pm: please call your Oncologist's Clinic [facility] Evening and Weekend Contacts For MEDICAL QUESTIONS: If you have questions or concerns during evening, weekend, or holiday hours, please call: [facility] and The [facility] sulfide head operator at [phone]. Ask the sulfide head operator to page the on-call doctor for medical oncology, the service that was responsible for your care while you were in the hospital. If you having an emergency, call 911. For questions on current hospital discharge plan to home or home with services: Anali MCGUIRE, [facility] [phone] (Wed-Wed 8:00 AM - 4:30 PM) IMPORTANT: Automated Post Discharge Call Patient Information As part of your care, we will call you at the primary number we have on file, the day after you are discharged at 9:30 a.m. to check on you. Please expect a two-minute automated telephone call from the hospital. This call will come from [phone]. If you miss the first call, the hospital will text you instead of sending an automated call. You will have the option of responding to the text with your cell phone. If a third attempt is needed, you will receive a call. If you are unable to answer and want to respond, please call [phone] to complete this important evaluation. By answering the phone evaluation, a [facility] nurse will be notified if you have any questions or needs and call you back. If you have an immediate medical need call your doctor s office, or if you have a medical emergency call 911. KIZZY Reyes - 01/11/2025 11:08 AM EDT PLEASE HOLD iNLYTA UNTIL fu WITH YOU ONCOLOGIST ON 01/17: YOU CAN CALL SOONER IF YOU WANT TO CHECK WITH THEM ABOUT STARTING TO TAKE Anali Mesa RN - 01/09/2025 12:55 PM EDT Activity: Please follow these instructions: You may perform the following activities: -Resume your usual activities without restrictions. -Take rest periods during the day as needed. -Walk as much as you can to increase your strength and endurance. Occupational Therapy: Refer to your home exercise program from you occupational therapist to continue to improve your strength and function. Physical Therapy: Refer to your home exercise program from your physical therapist to continue to improve your strength and function. KIZZY Reyes - 01/09/2025 12:55 PM EDT Controlled Carbohydrate Diet This diet controls carbohydrate intake to help manage and maintain consistent blood glucose levels. Simple sugars are limited and carbohydrate intake is balanced throughout the day. Avoid adding salt to your food and use heart healthy fats such as canola or olive oil. Phosphorus and Potassium Restricted (Renal) diet 1.5L fluid restriction Anali Mesa RN - 01/09/2025 12:55 PM EDT Notify Your Doctor or Nurse if you have any of the following: Bleeding or bruising If you have bleeding, apply pressure to the site and hold the pressure firmly for 5 minutes. If the bleeding continues, apply pressure again and call 911. If the bleeding stopped, call your doctor to report it. Catheter or tube problems Call your doctor or nurse if you have problems with your tube or catheter such as it breaks or leaks, falls out, is not able to be flushed and has drainage coming from around the tube site. Decreased Circulation Call your doctor or nurse if you have swelling, numbness or loss of feeling and color change in the skin to either very pale or blue jain in color. Airway changes: Call 911 if you suddenly have trouble breathing, hoarseness in your voice that does not clear, problems swallowing, or shortness of breath. Decreased Urination Call your doctor or nurse if you are not able to urinate after 12 hours. Deep Vein Thrombosis Symptoms Call your doctor or nurse right away if you have any signs of blood clots such as -Tender, swollen or reddened areas anywhere in your leg. -Numbness or tingling in your lower leg or calf, or at the top of your leg or groin -Skin on you leg looks pale or blue or feels cold to touch -Chest pain or have trouble breathing -Fever or chills Fever, Chills, or Flu Call your doctor or nurse if you have a temperature greater than 100.5 degrees F and/or chills. GI Bleed Symptoms Call your doctor or nurse if you have signs of slow blood loss such as: -Black tarry bowel movements -Cold hands and feet -Weakness Call 911 if you suddenly have signs of blood loss such as: -Vomiting blood -Fast heart rate -Feeling faint or blacking out -Passing bright red blood from your rectum Nausea and Vomiting Call your doctor or nurse if you have nausea and vomiting that continues more than 24 hours, will not let you keep medicine down and will not let you keep fluids down Neurological Changes Call your doctor or nurse if you have: -A headache that does not ease with pain medication after 2 hours. -Mental confusion -Increased sleepiness -New onset of arm or hand weakness and leg or feet weakness -New or worse problems with talking -New or worse problems with balance or walking -A seizure Respiratory Changes Call your doctor or nurse if you have a cough that gets worse and blood in the sputum you cough up Unrelieved Pain Call your doctor or nurse if your pain gets worse or is not eased 1 hour after taking your pain medicine. Urinary Tract Infection Symptoms Call your doctor or nurse if you have signs of a urinary tract infection such as: -Urine is cloudy, bloody or has a bad odor -You leak urine or you have to urinate more often -You feel burning when you urinate -You have a temperature greater than 100.5 Wound Infection Symptoms Call your doctor or nurse right away if you have signs of infection at you wound such as: -More pain around the wound -Change in the amount , color and odor of drainage -The skin around the wound feels warm or has red streaks -The wound separates or opens up -You have a temperature greater than 100.5 documented in this encounter [facility] 01-09-2025 Consult note Associated Order (s): IP CONSULT TO NEPHROLOGY NEPHROLOGY INPATIENT CONSULTATION NOTE I saw Krissy Wright at the [facility] on 01/09/2025. Reason for Consultation: ESRD Referring Provider: Chris Tolbert MD History of Present Illness: Krissy Wright is a 69 y.o. male with a past medical history of ESRD (iHD MWF), RCC, DM2, CHF, CAD, hx PE who we are consulted to see for ESRD mgmt. Patient initially went to OSH for SOB and had a CT which showed a new tumor thrombus in renal vein so was transferred to the [facility]. He is on HD MWF but missed Mondays treatment. Patient reports that he went to dialysis on Wednesday and was able to dialyze without issues. Doesn't make much urine. Started getting more SOB over the weekend and went to the ED. He missed his Wednesday dialysis due to being at the hospital. He is feeling less SOB today but still not back to baseline. No dizziness. No chest pain. No uremic symptoms. No recent fevers, chills, N/V/D/C. Past Medical History: Diagnosis Date Arrhythmia Atrial fibrillation CAD (coronary artery disease) Cancer Believed to be metastatic from renal cancer. Congestive heart failure Diabetes mellitus Dialysis patient DVT (deep venous thrombosis) Essential hypertension, benign GERD (gastroesophageal reflux disease) History of chemotherapy Pulmonary embolism Renal disease Past Surgical History: Procedure Laterality Date HIP REPLACEMENT Right NEPHRECTOMY REMOVAL CATARACT (PEM) Bilateral Scheduled Meds: Allopurinol 100 mg Oral Daily aspirin 81 mg Oral Daily dexAMETHasone 4 mg Oral Daily Diltiazem 120 mg Oral Q12H Finasteride 5 mg Oral Daily heparin 5,000 Units Subcutaneous Q8H 0800/1600/2200 [Held by provider] Insulin lispro Subcutaneous 4x daily w/meals, HS Levothyroxine 125 mcg Oral Before BKF Metoprolol 100 mg Oral BID Pantoprazole 40 mg Oral Daily IV Infusions: Allergies Allergen Reactions Penicillins Other Reaction(s): Other (See Comments), Unknown unknown Family History Problem Relation Age of Onset Diabetes Mother Stroke Mother Heart Disease - Other Mother Heart Disease - Other Father Social History Socioeconomic History Marital status: Single Spouse name: Not on file Number of children: Not on file Years of education: Not on file Highest education level: Not on file Occupational History Not on file Tobacco Use Smoking status: Never Smokeless tobacco: Never Substance and Sexual Activity Alcohol use: Not Currently Drug use: Not Currently Sexual activity: Not on file Other Topics Concern Not on file Social History Narrative Not on file Social Drivers of Health Financial Resource Strain: Not on file Food Insecurity: Not on file Transportation Needs: Not on file Physical Activity: Not on file Stress: Not on file Social Connections: Not on file Personal Safety: Not on file Housing Stability: Not on file Review of Systems: ROS negative except for as stated in HPI Physical Examination: Vital Signs BP 175/85 Pulse 76 Temp 97.5 F (36.4 C) (Oral) Resp (!) 26 Ht 1.829 m (6' 0.01) Wt 112.5 kg (248 lb 0.3 oz) SpO2 94% BMI 33.63 kg/m Smoking Status Never No intake/output data recorded. Constitutional: Well developed, well nourished, comfortable appearing HEENT: Normocephalic and atraumatic. Sclera non-icteric, mucus membranes moist Chest: Respiratory effort is normal. Cardiovascular: Exam reveals no gallop or rub. 2+ peripheral pulses bilaterally Abdominal: Soft. No tenderness, no rebound Musculoskeletal: Grossly normal range of motion all extremities, no joint swelling Extremities: Warm and well perfused. 2+ peripheral edema Neurological: alert, following commands Skin: No obvious rash Dialysis Access: AVF Relevant Data: Lab Results Component Value Date SODIUM 138 01/08/2025 POTASSIUM 4.2 01/08/2025 CHLORIDE 98 01/08/2025 CO2 24 01/08/2025 BUN 96 (H) 01/08/2025 CREATSERUM 5.34 (H) 01/08/2025 GLUCOSE 83 01/09/2025 Lab Results Component Value Date WBC 10.32 (H) 01/08/2025 HGB 8.7 (L) 01/08/2025 HCT 27.7 (L) 01/08/2025 PLATELET 145 (L) 01/08/2025 MCV 93.9 01/08/2025 Lab Results Component Value Date SPGRVTYUR 1.018 01/09/2025 GLUCOSEURINE Negative 01/09/2025 KETONESURINE Negative 01/09/2025 BLOODURINE Moderate (A) 01/09/2025 NITRITESURIN Positive (A) 01/09/2025 LEUKOCESTUR Large (A) 01/09/2025 WBCURINE > 20 (A) 01/09/2025 RBCURINE >25 (A) 01/09/2025 BACTERIAURIN TRACE (A) 01/09/2025 Lab Results Component Value Date CREATSERUM 5.34 (H) 01/08/2025 CREATSERUM 5.35 (H) 01/08/2025 Lab Results Component Value Date CALCIUM 7.9 (L) 01/08/2025 PHOSPHORUS 7.4 (H) 01/08/2025 Assessment/Plan: Impression: ESRD on iHD MWF Blood pressure / volume status - BP goal SBP < 140 Anemia of CKD - Hgb goal 10-11 g/dL 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 Nutrition in ESRD Dialysis access - AVF. No issues on exam, assess with dialysis. Recommendations: -iHD today due to missed hd on Wednesday, seen on dialysis, see separate procedure note -check calcium and phosphorus with chemistry at least 3x weekly -check ferritin, iron studies, PTH, Vitamin D25, and uric acid if hospitalization to be >48 hours -trend Hgb, may need to consider inpatient SARITA if hospitalization prolonged -strict Is and Os -give nephrocaps 1 tab daily while on FIRE SUPPORT MAN -low Na, low K, low phos, high protein diet. Limit fluids to 1.2 L/day Pascual Hale MD Division of Nephrology [facility] 01-09-2025 Plan of care note Plan on 3 hrs hemodialysis with net fluid removal of 2-3L as tolerated. During Krissy Wright's Dialysis Treatment on 01/09/2025 the following interventions for Prevent/Manage Dialysis Procedure Complication were completed: Ensure system correctly primed, connections secure, and air detector alarms engaged. Verify correct machine setting with physician order. Assure proper dialysate conductivity and water quality prior to starting treatment Closely monitor patient throughout for tolerance to treatment During Krissy Goldmans Dialysis Treatment on 01/09/2025 the following interventions for Monitoring and Managing Fluid Electrolyte/Acid Base Balance were completed: Monitor intake and output. Monitor daily weight. Enforce fluid restriction. Manage electrolyte shifts and resulting effect. Assess presence/location of edema. During Krissy Goldmans Dialysis Treatment on 01/09/2025 the following interventions to Protect/Monitor Dialysis AV Access Site were completed: Inspect and monitor Dialysis AV access site Educate patient on home care, and reportable symptoms Avoid using arm with dialysis access site for IV access, phlebotomy, injections or BP readings. [facility] 01-09-2025 Consult note Associated Order (s): IP CONSULT TO HEMATOLOGY Images from the original note were not included. Hematology Consult Note Reason for Consult: hx RCC. 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 appreciate recs on AC Consulting Team: MERVAT Bravo Assessment & Recommendations: IMPRESSION: Hx RCC, clear type s/p left radical nephrectomy with negative lymph nodes on 10/29/2010: s/p ipilumumab/nivolamab, s/p pembrolizumab/axitinib, and currently on axitinib 5mg once daily. Found to have upper back pain end of October 2024 and work-up showed a T2 pathologic fracture SINS 13 (unstable) and Bilsky 1c. Pt deemed not a surgical candidate. Follows w/ rad onc for 30 Gy in 5 fractions given the Bilsky grade. Reports ongoing hematuria despite self-discontinuing eliquis 4 months ago. Hx of VTE: pt endorses hx of DVT in setting of being sedentary prior to his RCC diagnosis, was supposed to be on lifelong AC, was on xarelto at one point and switched to eliquis; he self-dc'd his eliquis 4 months ago due to hematuria which has not resolved. ESRD on HD RECOMMENDATIONS: - recommend med onc consult to assist with restaging/workup of likely recurrent RCC, follow up w/ med onc outpatient - recommend consulting radiology for overread of outside images to eval if tumor thrombus is true VTE - recommend DVT US - bleeding risk is high w/ RCC, if no DVT, may consider not resuming AC given he has ongoing hematuria. This patient was discussed with the Attending, Dr. Wright. Please refer to attending attestation for final recommendations. If you have any questions or need any further information, please feel free to contact the Hematology Consult Service. Our pager number is found under the heading IM Consult Serv Hematology on [email or web address]. Thank you for allowing us to participate in the care of Krissy Wright. Yariel Banks MD Hematology/Oncology Fellow History of Present Illness: Krissy Wright is a 69 y.o. male with history of ESRD on HD, Afib, HFpEF, T2DM, HTN, GERD, hypothryroidism, and metastatic RCC who presents with tumor thrombus found at OSH. Hematology is consulted for AC recs. Pt went to OSH d/t weakness, constipation, endorses decreased UOP in setting of being on HD. Transferred to [facility] on 01/09/2025 for further management. Pt dx w/ clear cell RCC 2010, underwent left radical nephrectomy with negative lymph nodes on 10/29/2010, s/p ipilumumab/nivolamab, s/p pembrolizumab/axitinib, and was on axitinib 5mg once daily. Found to have upper back pain end of October 2024 and work-up showed a T2 pathologic fracture SINS 13 (unstable) and Bilsky 1c. Pt deemed not a surgical candidate. Follows w/ rad onc for 30 Gy in 5 fractions given the Bilsky grade. Pt says he has a hx of DVT prior to his cancer diagnosis. He was on xarelto and then switched to eliquis at some point which he self-discontinued about 4 months ago without telling his doctors. He dc'd it because of hematuria, which did not improve after stopping his eliquis, says it is an ongoing issue. CTAP 01/08 at OSH w/ thrombus as shown below, about 3.1cm in diameter: ROS A full review of systems was negative with the exception of what is noted in the HPI. Medical/Surgical History: Past Medical History: Diagnosis Date Arrhythmia Atrial fibrillation CAD (coronary artery disease) Cancer Believed to be metastatic from renal cancer. Congestive heart failure Diabetes mellitus Dialysis patient DVT (deep venous thrombosis) Essential hypertension, benign GERD (gastroesophageal reflux disease) History of chemotherapy Pulmonary embolism Renal disease Past Surgical History: Procedure Laterality Date HIP REPLACEMENT Right NEPHRECTOMY REMOVAL CATARACT (PEM) Bilateral Family/Social History: Family History Problem Relation Age of Onset Diabetes Mother Stroke Mother Heart Disease - Other Mother Heart Disease - Other Father Social History Socioeconomic History Marital status: Single Spouse name: Not on file Number of children: Not on file Years of education: Not on file Highest education level: Not on file Occupational History Not on file Tobacco Use Smoking status: Never Smokeless tobacco: Never Substance and Sexual Activity Alcohol use: Not Currently Drug use: Not Currently Sexual activity: Not on file Other Topics Concern Not on file Social History Narrative Not on file Social Drivers of Health Financial Resource Strain: Not on file Food Insecurity: Not on file Transportation Needs: Not on file Physical Activity: Not on file Stress: Not on file Social Connections: Not on file Personal Safety: Not on file Housing Stability: Not on file Physical Exam: Vital Signs: BP 165/87 (BP Location: Right arm, BP Position: Lying) Pulse 75 Temp 97.4 F (36.3 C) (Oral) Resp 22 Ht 1.829 m (6' 0.01) Wt 112.5 kg (248 lb 0.3 oz) SpO2 95% BMI 33.63 kg/m Smoking Status Never General: no acute distress, lying comfortably in bed, chronically ill-appearing HEENT: NC/AT, anicteric sclera Neck: supple, normal ROM Respiratory: CTAB, no wheezes, rales or rhonchi, no accessory muscle use Cardiovascular: RRR, no m/r/g, no cyanosis Abdomen: soft, nontender, nondistended, no hepatosplenomegaly, +bowel sounds Extremities: moves all extremities, +bilateral pitting edema, +LUE fistula Neurological: no gross focal deficits, alert and oriented Skin: warm and dry, no rashes or ulcerations Psychiatric: appropriate mood and affect Labs/Imaging/Path: CBC Lab Results Component Value Date WBC 10.32 (H) 01/08/2025 HGB 8.7 (L) 01/08/2025 HCT 27.7 (L) 01/08/2025 PLATELET 145 (L) 01/08/2025 MCV 93.9 01/08/2025 Chemistry Bun/Creat/Cl/CO2/Glucose: 96/5.34/98/24/83 (01/08 2321-01/09 814) Lab Results Component Value Date LDH 454 (H) 01/08/2025 Coagulation Studies Lab Results Component Value Date PT 13.9 01/08/2025 INR 1.1 01/08/2025 No results found for: FIBRINOGEN No results found for: DDIMER Iron studies: No results found for: IRON, FERRITIN No results found for: RETIC, RETICABS Other Labs and Imaging reviewed No orders to display Cosigned by Julee Wright MD at 01/09/2025 8:11 PM EDT Associated attestation - Julee Wright MD - 01/09/2025 8:11 PM EDT I saw and examined the patient on 01/09/[address] Banks. Labs, radiology, and other tests were reviewed. The plan was developed mutually and discussed with the entire treating team (including house staff, APPs). The above note has been reviewed. Patient and/or family are aware of plan. I directed the patient's care and counseling, and directed the assessment and plan as documented above. Krissy Wright is a 69 y.o. 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 Patients with tumor thrombus may carry high risks of VTE, bleeding, and mortality. The impact of anticoagulation for treatment of tumor thrombus is unclear. Tumor thrombus may obstruct venous blood flow, leading to stasis and predisposing to subsequent VTE, with 6-8 fold increase reported in the literature. However, anticoagulation also increases the risk of bleeding, and increased risk of bleeding events has been reported with the use of both prophylactic and therapeutic anticoagulation doses in patients with RCC and tumor thrombus in a retrospective study involving 211 patients (https://doi.org/10.1016/[email or web address]). Mr. Wright reports a remote history of DVT in the legs that he states was attributed to inactivity and states that he was on anticoagulation with Xarelto followed by Eliquis, which he stopped taking about 4 months ago due to hematuria. He states that he continues to have hematuria. Physical exam is significant for bilateral LE edema. Please obtain new reads of outside CT's that reported the tumor thrombus by our Radiologists to ensure they agree with the diagnosis. Please obtain bilateral lower extremity dopplers to evaluate for concurrent DVT. If concurrent LE DVT is found, he would benefit from therapeutic anticoagulation with apixaban. RCC is likely to be associated with higher bleeding events. Would consider avoiding therapeutic anticoagulation if no concurrent DVT is identified, especially in light of hematuria. Julee Wright MD, PhD [facility] Work Phone: 01-09-2025 History and physical note Updated Plan of Care: I was notified of the patient's arrival from the ED to the [facility]. The chart was reviewed and an order/medication reconciliation completed. No acute needs were identified by the care team at this time. The primary service will continue to provide ongoing management of the patient. Nursing is encouraged to communicate any additional concerns as they arise. Please refer to the prior consultation note for full H&P and additional details regarding the patient's plan of care. KIZZY Bryant Nocturnal [facility] Cancer Medicine/Hospitalist #[id number] Cosigned by Chris Tolbert MD at 01/09/2025 7:53 AM EDT [facility] 01-09-2025 History and physical note Updated Plan of Care: I was notified of the patient's arrival from the ED to the [facility]. The chart was reviewed and an order/medication reconciliation completed. No acute needs were identified by the care team at this time. The primary service will continue to provide ongoing management of the patient. Nursing is encouraged to communicate any additional concerns as they arise. Please refer to the prior consultation note for full H&P and additional details regarding the patient's plan of care. KIZZY Bryant Nocturnal [facility] Cancer Medicine/Hospitalist #[id number] Cosigned by Chris Tolbert MD at 01/09/2025 7:53 AM EDT documented in this encounter [facility] 01-09-2025 Nurse Note This RN notified Anup Leung that pt has arrived to the floor [facility] 01-09-2025 Emergency department Note Attempted to call report to C19 but RN unavailable, callback number provided [facility] 01-09-2025 Emergency department Note Attempted to call report to C19 but RN unavailable, callback number provided POC BG [phone], pt provided with 8oz juice, Alert and oriented, no other complaints at this time ED Attending No chief complaint on file. Past Medical History: Diagnosis Date Arrhythmia Atrial fibrillation CAD (coronary artery disease) Cancer Believed to be metastatic from renal cancer. Congestive heart failure Diabetes mellitus Dialysis patient DVT (deep venous thrombosis) Essential hypertension, benign GERD (gastroesophageal reflux disease) History of chemotherapy Pulmonary embolism Renal disease Krissy Wright is a 69 y.o. male. Hx of metastatic RCC presenting with concern for tumor thrombus from OSH. Sent here for further care and treatment. Pt also has hx of ESRD, no HD today, last HD Wednesday. On exam pt has stable vitals. Bilateral edema. Radiology report from osh reviewed - shows tumor thrombus of the renal vein. Given this is tumor thrombus will hold off on starting heparin gtt. Plan to repeat labs and admit to [facility] for further CA treatment. BP 175/83 Pulse 71 Temp 97.4 F (36.3 C) (Oral) Resp 18 Ht 1.829 m (6') SpO2 93% BMI 31.60 kg/m Smoking Status Never Medical Decision Making Amount and/or Complexity of Data Reviewed Labs: ordered. ECG/medicine tests: ordered. Risk Prescription drug management. Decision regarding hospitalization. On 01/08/2025 I saw and examined the patient. I discussed the history and examination with the resident and agree with the plan of care. Isabella Cruz MD 01/08/25 223 dEPARTMENT of Emergency Medicine CHIEF COMPLAINT No chief complaint on file. HPI Krissy Wright is a 69 y.o. male who presents with a history of renal cell carcinoma, ESRD requiring HD he is presenting to [facility] is a transfer from an outside hospital where he was noted to have worsening tumor thrombus of his IVC. The patient states that he has not been feeling well for a few days and missed his dialysis today. He otherwise denies any fever but does endorse chills he has not been having any chest pain but does endorse some intermittent shortness of breath. He has had bilateral lower extremity swelling which has been worsening over the past several months, I suspect that this is because of advancement of his cancer. The patient states that he has NOT been taking his Xarelto as prescribed. He otherwise was transferred given the concern for advancement of his disease. He does currently get radiation therapy for spinal Mets. He had CTA of the chest to evaluate for pulmonary embolism which was negative and CT of the abdomen and pelvis which showed the worsening tumor thrombus. REVIEW OF SYSTEMS Review of Systems as noted in the HPI PAST MEDICAL HISTORY Past Medical History: Diagnosis Date Arrhythmia Atrial fibrillation CAD (coronary artery disease) Cancer Believed to be metastatic from renal cancer. Congestive heart failure Diabetes mellitus Dialysis patient DVT (deep venous thrombosis) Essential hypertension, benign GERD (gastroesophageal reflux disease) History of chemotherapy Pulmonary embolism Renal disease SURGICAL HISTORY Past Surgical History: Procedure Laterality Date HIP REPLACEMENT Right NEPHRECTOMY REMOVAL CATARACT (PEM) Bilateral CURRENT MEDICATIONS No current facility-administered medications for this encounter. Current Outpatient Medications Medication Sig Dispense Refill Allopurinol 100 MG tablet Aspirin [address] tablet Take 1 tablet by mouth daily. B Zllkjcw-F-Vuvpm Acid (Theresa-Fabian) tablet Take 1 tablet by mouth daily. Cartia XT 120 MG Cap SR 24HR capsule XL Take 1 mg by mouth. dexAMETHasone 4 MG tablet Take 1 tablet by mouth every 6 hours. dexAMETHasone 4 MG tablet Take 1 tablet by mouth daily. 40 tablet 0 FeroSul 325 (65 Fe) MG tablet Take 1 tablet by mouth. Take with food. Finasteride 5 MG tablet Take 1 tablet by mouth daily. glipiZIDE 2.5 MG tablet Take 1 tablet by mouth. hydroCODone-acetaminophen 5-325 MG tablet take 1 tablet by mouth every 6 hours for 3 days Inlyta 5 MG tablet Take 1 tablet by mouth Daily (with dinner). Levothyroxine 125 MCG tablet Take 1 tablet by mouth daily. Metoclopramide 5 MG tablet Take 1 tablet by mouth every 6 hours. Metoprolol 100 MG tab regular release Take 1 tablet by mouth 2 times daily. Not certain of dose Pantoprazole [address] tablet DR Take 1 tablet by mouth daily. ALLERGIES Allergies Allergen Reactions Penicillins Other Reaction(s): Other (See Comments), Unknown unknown FAMILY HISTORY Family History Problem Relation Age of Onset Diabetes Mother Stroke Mother Heart Disease - Other Mother Heart Disease - Other Father SOCIAL HISTORY Social History Socioeconomic History Marital status: Single Spouse name: Not on file Number of children: Not on file Years of education: Not on file Highest education level: Not on file Occupational History Not on file Tobacco Use Smoking status: Never Smokeless tobacco: Never Substance and Sexual Activity Alcohol use: Not Currently Drug use: Not Currently Sexual activity: Not on file Other Topics Concern Not on file Social History Narrative Not on file Social Drivers of Health Financial Resource Strain: Not on file Food Insecurity: Not on file Transportation Needs: Not on file Physical Activity: Not on file Stress: Not on file Social Connections: Not on file Personal Safety: Not on file Housing Stability: Not on file PHYSICAL EXAM Smoking Status Never Physical Exam Vitals and nursing note reviewed. Constitutional: Appearance: Normal appearance. HENT: Head: Normocephalic and atraumatic. Eyes: General: No scleral icterus. Right eye: No discharge. Left eye: No discharge. Extraocular Movements: Extraocular movements intact. Conjunctiva/sclera: Conjunctivae normal. Pupils: Pupils are equal, round, and reactive to light. Cardiovascular: Rate and Rhythm: Normal rate and regular rhythm. Pulses: Normal pulses. Heart sounds: Normal heart sounds. No murmur heard. No gallop. Pulmonary: Effort: Pulmonary effort is normal. No respiratory distress. Breath sounds: Normal breath sounds. No wheezing or rales. Abdominal: General: Abdomen is flat. There is no distension. Palpations: Abdomen is soft. Tenderness: There is abdominal tenderness (Mild). There is no guarding. Musculoskeletal: Cervical back: Normal range of motion. Right lower leg: Edema (Severe) present. Left lower leg: Edema (Severe) present. Skin: General: Skin is warm and dry. Neurological: General: No focal deficit present. Mental Status: He is alert. Psychiatric: Mood and Affect: Mood normal. Behavior: Behavior normal. ED COURSE & MEDICAL DECISION MAKING ED Course as of 01/09/25 0550 WedJan 09, 2025 0110 Glucose(!!): 48 BG improved with oral intake The patient is presenting as a transfer from an outside hospital for concern of worsening renal cell carcinoma with tumor thrombus of the IVC. The patient also has a past medical history of end-stage renal disease and did miss his most recent session of dialysis. He normally scheduled for Wednesday dialysis. The differential diagnosis includes but is not limited to: Tumor lysis syndrome, worsening of his underlying malignancy, tumor thrombus, IVC occlusion secondary to thrombus, hepatic congestion, ESRD, fluid overload The patient is presenting from an outside hospital where he already had imaging completed including CTA chest to evaluate for pulmonary embolism as well as CT abdomen and pelvis in order to evaluate for worsening of his malignancy. These images ultimately showed worsening of his malignancy with concern for tumor thrombus invading the IVC an leading to vascular congestion. He otherwise also had a CT chest which was remarkable for some nodules in the lungs however otherwise was not concerning for pulmonary embolism. Given that the patient has already had imaging we will hold off on repeating this for now. Otherwise we will obtain additional lab work including chemistry can that the patient did miss dialysis. We will obtain EKG in order to evaluate for possible electrolyte imbalances, although this ultimately was unremarkable and the patient had no evidence of peaked T-waves, ST segment elevation, or other electrolyte abnormalities which may be identified in the EKG. The patient was reportedly started on antibiotics at the outside hospital however upon his arrival here while he does have a mild leukocytosis, his lactate is normal and there is no clear source for infection. Given that we will defer further antibiotic therapy at this time. We will also obtain LFTs and lipase at this time in order to evaluate for possible additional sources of metastatic involvement. Ultimately the patient's chemistry was remarkable for electrolyte imbalances which would be consistent with chronic kidney disease and ESRD although he notably did not have significant potassium elevation requiring emergent hemodialysis. He did have low glucose which was remedy by giving him oral supplementation and repeat showed adequate response. The hypoglycemia protocol was also ordered. The patient's final disposition will be admission to the [facility] level of care for further evaluation and management of his worsening tumor thrombus and renal cell carcinoma and his additional need for dialysis Medical Decision Making Amount and/or Complexity of Data Reviewed Labs: ordered. Decision-making details documented in ED Course. ECG/medicine tests: ordered. Risk Prescription drug management. Decision regarding hospitalization. Ton Mayen MD Resident 01/09/25 0556 Pt arrived via EMS from outside facility where he presented with SOB and weakness. Pt with hx of renal cell carcinoma, found to have increased tumor growth. Here for further treatment. Bed: E025 Expected date: 01/08/25 Expected time: 12:00 AM Means of arrival: Comments: documented in this encounter [facility] 01-09-2025 Consult note Associated Order (s): ED CONSULT TO [facility] ADMISSION CANCER MEDICINE CONSULT FOR ADMISSION, ED TO [facility] TODAY'S DATE: 01/09/2025 ADMIT DATE: 01/08/2025 9:27 PM REASON FOR ADMISSION: weakness, tumor thrombus Primary Oncologist: Genny (rad onc) ASSESSMENT AND PLAN Krissy Wright is a 69 y.o. 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 Tumor thrombus suspected in right renal vein and IVC. Numerous pulmonary nodules - CT chest showed no PE. Multiple pulmonary nodules. Stable multi lobulated masses in right kidney in in pancreas - consult hematology regarding AC BLE edema - pt reports worsening BLE - hx of heart failure - will get BNP - elevated legs - consider lasix, consider echo ESRD on HD - gets HD MWF, last on Wednesday, 01/05 - c/s nephrology RCC - pt following with Dr. Farris (rad onc) - s/p left nephrectomy - currently receiving radiation tx to T2, last 12/29 - currently on Inlyta - on a dex taper, currently decadron 4mg daily Complexity. Hypocalcemia - Continue to monitor and replete. Thrombocytopenia - Continue to monitor. Obesity, class I Body mass index is 31.6 kg/m . - Follow with PCP for dietary and lifestyle modifications. Wound Documentation Any conditions listed below are present on admission unless otherwise specified. . Body mass index is 31.6 kg/m . CHRONIC PROBLEMS HFpEF HTN Afib - EKG NSR - cont home ASA, cartia, metop - pt states he stopped eliquis 3-4 months ago d/t hematuria Hypothyroidism - cont home levothyroxine GERD - cont home protonix T2DM - hold home glipizide - SSI DVT prophylaxis: heparin Diet: DIET REGULAR Continuous Infusions: Code Status: No Order Serious Illness Conversation: Disposition: The patient will require continued hospitalization for weakness, tumor thrombus. They are expected to discharge to be determined hospital course. Today they are expected to be medically ready for discharge on Follow-ups made: Follow-ups needed: EMMA Wright is a 69 y.o. 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 Pt presented to an OSH for SOB per records. He had a CTAP that showed a tumor thrombus so he was transferred to [facility]. Work up in the ED significant for; VSS. 7.44/37/43/25. glucose 44, lactate 1.5, CR 5.35, phos 7.4, AST 71, lipase 13, trop 36, wbc 10.32, hgb 8.7, PLT 145. EKG NSR. On admission, pt is alert and oriented x 4. No distress. He states he went to OSH because he was feeling very weak and his LE weakness is worse. He reports constipation, states his last BM was 01/08. He reports decreased UOP but states that is normal for him and he is on HD. He mixed his HD treatment 01/08. Pt denies fevers, chills, chest pain, SOB, cough, abd pain, nausea, vomiting, diarrhea, dysuria, hematuria, hematochezia, melena, focal weakness. ONCOLOGY HISTORY Oncology History Metastatic cancer to spine 11/30/2024 - 12/30/2024 Radiation RADIATION THERAPY Treatment Details (11/30/2024 - 12/30/2024) Site: Axial Thoracic spine Technique: SBRT Goal: No goal specified Planned Treatment Start Date: No planned start date specified HISTORY Past Medical History: Diagnosis Date Arrhythmia Atrial fibrillation CAD (coronary artery disease) Cancer Believed to be metastatic from renal cancer. Congestive heart failure Diabetes mellitus Dialysis patient DVT (deep venous thrombosis) Essential hypertension, benign GERD (gastroesophageal reflux disease) History of chemotherapy Pulmonary embolism Renal disease Past Surgical History: Procedure Laterality Date HIP REPLACEMENT Right NEPHRECTOMY REMOVAL CATARACT (PEM) Bilateral Family History His family history includes Diabetes in his mother; Heart Disease - Other in his father and mother; Stroke in his mother. Social History He reports that he has never smoked. He has never used smokeless tobacco. He reports that he does not currently use alcohol. He reports that he does not currently use drugs. MEDICATIONS / ALLERGIES Prior to Admission Medications Prescriptions Last Dose Informant Patient Reported? Taking? Allopurinol 100 MG tablet Yes No Aspirin [address] tablet Yes No Sig: Take 1 tablet by mouth daily. B Rnakdcy-Y-Euwbm Acid (Theresa-Fabian) tablet Yes No Sig: Take 1 tablet by mouth daily. Cartia XT 120 MG Cap SR 24HR capsule XL Yes No Sig: Take 1 mg by mouth. FeroSul 325 (65 Fe) MG tablet Yes No Sig: Take 1 tablet by mouth. Take with food. Finasteride 5 MG tablet Yes No Sig: Take 1 tablet by mouth daily. Inlyta 5 MG tablet Yes No Sig: Take 1 tablet by mouth Daily (with dinner). Levothyroxine 125 MCG tablet Yes No Sig: Take 1 tablet by mouth daily. Metoclopramide 5 MG tablet Yes No Sig: Take 1 tablet by mouth every 6 hours. Metoprolol 100 MG tab regular release Yes No Sig: Take 1 tablet by mouth 2 times daily. Not certain of dose Pantoprazole [address] tablet DR Yes No Sig: Take 1 tablet by mouth daily. dexAMETHasone 4 MG tablet Yes No Sig: Take 1 tablet by mouth every 6 hours. dexAMETHasone 4 MG tablet No No Sig: Take 1 tablet by mouth daily. glipiZIDE 2.5 MG tablet Yes No Sig: Take 1 tablet by mouth. hydroCODone-acetaminophen 5-325 MG tablet Yes No Sig: take 1 tablet by mouth every 6 hours for 3 days Facility-Administered Medications: None Allergies Allergen Reactions Penicillins Other Reaction(s): Other (See Comments), Unknown unknown OBJECTIVE Temp: [97.4 F (36.3 C)] 97.4 F (36.3 C) Pulse (Heart Rate): [71-81] 81 Resp Rate: [18] 18 BP: (164-175)/(83) 164/83 O2 Sat (%): [91 %-93 %] 91 % General: A&O to self, time, place, and situation. NAD. + chronically ill appearing HEENT: EOMI, anicteric sclerae, conjunctivae & lids symmetrical. No signs of inflammation. Neck no rigidity. Not NISQUALLY. MMM, no erythema, exudates, or lesions. Dentition intact. Respiratory: Clear to auscultation bilaterally, no crackles/rhonchi/wheezes, no increased WOB. Cardiovascular: RRR, no murmurs, rubs, clicks or gallops, cap refill brisk. + 3+ pitting edema Abdomen: Normoactive BS. Abdomen soft, nontender, nondistended. No palpable masses. Neurologic: CN II-XII intact. No focal deficits. Speech clear and coherent. Follows commands. Skin: Color, texture, and turgor normal. No rashes or lesions. + LUE fistula Psychosocial: Affect appropriate LABORATORY DATA WBC/Hgb/Hct/Plts: 10.32/8.7/27.7/145 (01/08 2223) Ptt/Pt/Inr: --/13.9/1.1 (01/08 2223) Bun/Creat/Cl/CO2/Glucose: 96/5.34/98/24/73 (01/08 2321-01/09 25) Na/K+/Phos/Mg/Ca: 138/4.2/7.4/2.2/7.9 (01/08 2223-01/08 2321) DIAGNOSTICS IMAGING CT ABDOMEN (OUTSIDE IMAGE) Result Date: 01/08/2025 Outside Imaging Study for Support of Clinical Care. This study was sent from an outside facility to [facility] for support of clinical care of the patient within the [facility] system. CT CHEST (OUTSIDE IMAGE) Result Date: 01/08/2025 Outside Imaging Study for Support of Clinical Care. This study was sent from an outside facility to [facility] for support of clinical care of the patient within the [facility] system. GENERAL PROCEDURE Result Date: 12/27/2024 Andrea Farris MD, PhD 12/28/2024 8:48 AM [facility]-based Stereotactic Radiosurgery (SRS) Note: 12/27/2024 RADIATION ONCOLOGIST: Andrea Farris MD, PhD NEUROSURGEON: Jeremy Vazquez MD Primary disease: Renal Histopathology: Renal cell carcinoma PROCEDURE PERFORMED: SRS MACHINE: [employer] STX CLINICAL TARGETS: 1. Lesion begins at T2 ends at T2. Lesion treated to 30 Gy in 5 fraction/s using VMAT arcs with 6MV and/or 10MV photons FFF Fraction 3 of 5 CONSENT: Informed consent was obtained prior to the procedure. Procedure risks, benefits, alternatives and expected outcomes were discussed with the patient. Consent(s) were scanned into the electronic medical record. UNIVERSAL PROTOCOL/ TIMEOUT: Preprocedure verification is complete patient verified and consents confirmed, procedure sites are identified and marked, timeout was called before the start of the procedure. INDICATIONS FOR PROCEDURE: 69 y.o. male with: metastatic renal cell carcinoma, clear type since 2010. Underwent left radical nephrectomy with negative lymph nodes on 10/29/2010, s/p ipilumumab/nivolamab, s/p pembrolizumab/axitinib, and currently on axitinib 5mg once daily. He was found to have upper back pain end of October 2024 and work-up showed a T2 pathologic fracture SINS 13 (unstable) and Bilsky 1c. He is a non-surgical candidate. We are planning 30 Gy in 5 fractions given the Bilsky grade and Dr. Fiore is in agreement. For the stereotactic radiation therapy we will be utilizing IMRT and IGRT for better dose conformity and decreased dose to the normal structures. The risks, benefits and side effects of external beam were discussed in extensive detail and the patient s questions were answered. Side effects discussed included but not limited to fatigue, damage to hear and lungs, decreased blood counts, nausea, diarrhea, fracture risk due to treatment with RT, mucositis, dermatitis, pain, xerostomia, dysgeusia, hair loss, damage to blood vessels and nerves, spinal cord damage, brainstem damage, and weight loss. We look forward to seeing the patient at the time of CT simulation. Thank you for allowing us to participate in the care of your patient. If I may answer any questions, please do not hesitate to contact me at any time. We are treating to improve local tumor control. PROCEDURE DETAILS: CT for treatment planning was previously obtained. The images were transferred to the treatment planning computer and the images were fused with recent MRI. The target and adjacent normal structures were outlined. Multiple plans were run and the dose plan giving the maximum dose to the target and minimum dose to the normal tissue was chosen. quality assurance qa lab technician checks were performed on the plan and treatments were initiated today. The patient's head was immobilized utilizing the encompass frameless mask. Cone beam was taken and minor shifts were made after approved by me for each of the clinical targets. The patient received treatment with 6 MV photons delivering a doses of as described above. After the treatment was completed, the mask was removed from the patient. There were no vitals filed for this visit. Neurologic exam: AOx3, no new focal neurologic signs KPS: Performance status: Karnofsky scale 80 (ECOG grade 1) Performs normal activity with effort; some signs & symptoms of disease CONDITION: The patient tolerated the procedure well and was in stable condition. COMPLICATIONS: None Acute toxicity: (during radiation) Radiation Dermatitis: None=0 Hoarseness: None Esophageal Injury: Grade 0 = None Radiation Pneumonitis: Grade 0 None Cough: no Dyspnea: Grade 0 none Diarrhea: Grade 0 none Nausea: Grade 0 = None Dysuria: no Fatigue: Grade 0: No Fatigue Pain Flare: no Myelopathy: None PLAN: Tolerated the procedure well without complications. LINAC-based Stereotactic Radiotherapy, when complete, the patient will have relevant imaging and follow-up visits at an appropriate time point as clinically indicated. He is to continue current dose of dexamethasone during RT and we can taper as per instructions after treatment. Nursing team has conveyed the taper instructions. Andrea Farris MD, PhD Department of Radiation Oncology Pt will be discussed with attending and cancer medicine team in [facility] Sethi Pager: [phone] The provider may be reached from 7p-7a at pager listed above. After these hours please page the day provider listed under Qgenda. Cosigned by Chris Tolbert MD at 01/09/2025 8:25 AM EDT [facility] 01-09-2025 Consult note Associated Order (s): ED CONSULT TO [facility] ADMISSION CANCER MEDICINE CONSULT FOR ADMISSION, ED TO [facility] TODAY'S DATE: 01/09/2025 ADMIT DATE: 01/08/2025 9:27 PM REASON FOR ADMISSION: weakness, tumor thrombus Primary Oncologist: Genny (rad onc) ASSESSMENT AND PLAN Krissy Wright is a 69 y.o. 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 Tumor thrombus suspected in right renal vein and IVC. Numerous pulmonary nodules - CT chest showed no PE. Multiple pulmonary nodules. Stable multi lobulated masses in right kidney in in pancreas - consult hematology regarding AC BLE edema - pt reports worsening BLE - hx of heart failure - will get BNP - elevated legs - consider lasix, consider echo ESRD on HD - gets HD MWF, last on Wednesday, 01/05 - c/s nephrology RCC - pt following with Dr. Farris (rad onc) - s/p left nephrectomy - currently receiving radiation tx to T2, last 12/29 - currently on Inlyta - on a dex taper, currently decadron 4mg daily Complexity. Hypocalcemia - Continue to monitor and replete. Thrombocytopenia - Continue to monitor. Obesity, class I Body mass index is 31.6 kg/m . - Follow with PCP for dietary and lifestyle modifications. Wound Documentation Any conditions listed below are present on admission unless otherwise specified. . Body mass index is 31.6 kg/m . CHRONIC PROBLEMS HFpEF HTN Afib - EKG NSR - cont home ASA, cartia, metop - pt states he stopped eliquis 3-4 months ago d/t hematuria Hypothyroidism - cont home levothyroxine GERD - cont home protonix T2DM - hold home glipizide - SSI DVT prophylaxis: heparin Diet: DIET REGULAR Continuous Infusions: Code Status: No Order Serious Illness Conversation: Disposition: The patient will require continued hospitalization for weakness, tumor thrombus. They are expected to discharge to be determined hospital course. Today they are expected to be medically ready for discharge on Follow-ups made: Follow-ups needed: EMMA Wright is a 69 y.o. 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 Pt presented to an OSH for SOB per records. He had a CTAP that showed a tumor thrombus so he was transferred to [facility]. Work up in the ED significant for; VSS. 7.44/37/43/25. glucose 44, lactate 1.5, CR 5.35, phos 7.4, AST 71, lipase 13, trop 36, wbc 10.32, hgb 8.7, PLT 145. EKG NSR. On admission, pt is alert and oriented x 4. No distress. He states he went to OSH because he was feeling very weak and his LE weakness is worse. He reports constipation, states his last BM was 01/08. He reports decreased UOP but states that is normal for him and he is on HD. He mixed his HD treatment 01/08. Pt denies fevers, chills, chest pain, SOB, cough, abd pain, nausea, vomiting, diarrhea, dysuria, hematuria, hematochezia, melena, focal weakness. ONCOLOGY HISTORY Oncology History Metastatic cancer to spine 11/30/2024 - 12/30/2024 Radiation RADIATION THERAPY Treatment Details (11/30/2024 - 12/30/2024) Site: Axial Thoracic spine Technique: SBRT Goal: No goal specified Planned Treatment Start Date: No planned start date specified HISTORY Past Medical History: Diagnosis Date Arrhythmia Atrial fibrillation CAD (coronary artery disease) Cancer Believed to be metastatic from renal cancer. Congestive heart failure Diabetes mellitus Dialysis patient DVT (deep venous thrombosis) Essential hypertension, benign GERD (gastroesophageal reflux disease) History of chemotherapy Pulmonary embolism Renal disease Past Surgical History: Procedure Laterality Date HIP REPLACEMENT Right NEPHRECTOMY REMOVAL CATARACT (PEM) Bilateral Family History His family history includes Diabetes in his mother; Heart Disease - Other in his father and mother; Stroke in his mother. Social History He reports that he has never smoked. He has never used smokeless tobacco. He reports that he does not currently use alcohol. He reports that he does not currently use drugs. MEDICATIONS / ALLERGIES Prior to Admission Medications Prescriptions Last Dose Informant Patient Reported? Taking? Allopurinol 100 MG tablet Yes No Aspirin [address] tablet Yes No Sig: Take 1 tablet by mouth daily. B Elwsxtf-Q-Xyfec Acid (Theresa-Fabian) tablet Yes No Sig: Take 1 tablet by mouth daily. Cartia XT 120 MG Cap SR 24HR capsule XL Yes No Sig: Take 1 mg by mouth. FeroSul 325 (65 Fe) MG tablet Yes No Sig: Take 1 tablet by mouth. Take with food. Finasteride 5 MG tablet Yes No Sig: Take 1 tablet by mouth daily. Inlyta 5 MG tablet Yes No Sig: Take 1 tablet by mouth Daily (with dinner). Levothyroxine 125 MCG tablet Yes No Sig: Take 1 tablet by mouth daily. Metoclopramide 5 MG tablet Yes No Sig: Take 1 tablet by mouth every 6 hours. Metoprolol 100 MG tab regular release Yes No Sig: Take 1 tablet by mouth 2 times daily. Not certain of dose Pantoprazole [address] tablet DR Yes No Sig: Take 1 tablet by mouth daily. dexAMETHasone 4 MG tablet Yes No Sig: Take 1 tablet by mouth every 6 hours. dexAMETHasone 4 MG tablet No No Sig: Take 1 tablet by mouth daily. glipiZIDE 2.5 MG tablet Yes No Sig: Take 1 tablet by mouth. hydroCODone-acetaminophen 5-325 MG tablet Yes No Sig: take 1 tablet by mouth every 6 hours for 3 days Facility-Administered Medications: None Allergies Allergen Reactions Penicillins Other Reaction(s): Other (See Comments), Unknown unknown OBJECTIVE Temp: [97.4 F (36.3 C)] 97.4 F (36.3 C) Pulse (Heart Rate): [71-81] 81 Resp Rate: [18] 18 BP: (164-175)/(83) 164/83 O2 Sat (%): [91 %-93 %] 91 % General: A&O to self, time, place, and situation. NAD. + chronically ill appearing HEENT: EOMI, anicteric sclerae, conjunctivae & lids symmetrical. No signs of inflammation. Neck no rigidity. Not NISQUALLY. MMM, no erythema, exudates, or lesions. Dentition intact. Respiratory: Clear to auscultation bilaterally, no crackles/rhonchi/wheezes, no increased WOB. Cardiovascular: RRR, no murmurs, rubs, clicks or gallops, cap refill brisk. + 3+ pitting edema Abdomen: Normoactive BS. Abdomen soft, nontender, nondistended. No palpable masses. Neurologic: CN II-XII intact. No focal deficits. Speech clear and coherent. Follows commands. Skin: Color, texture, and turgor normal. No rashes or lesions. + LUE fistula Psychosocial: Affect appropriate LABORATORY DATA WBC/Hgb/Hct/Plts: 10.32/8.7/27.7/145 (01/08 2223) Ptt/Pt/Inr: --/13.9/1.1 (01/08 2223) Bun/Creat/Cl/CO2/Glucose: 96/5.34/98/24/73 (01/08 2321-01/09 25) Na/K+/Phos/Mg/Ca: 138/4.2/7.4/2.2/7.9 (01/08 2223-01/08 2321) DIAGNOSTICS IMAGING CT ABDOMEN (OUTSIDE IMAGE) Result Date: 01/08/2025 Outside Imaging Study for Support of Clinical Care. This study was sent from an outside facility to [facility] for support of clinical care of the patient within the [facility] system. CT CHEST (OUTSIDE IMAGE) Result Date: 01/08/2025 Outside Imaging Study for Support of Clinical Care. This study was sent from an outside facility to [facility] for support of clinical care of the patient within the [facility] system. GENERAL PROCEDURE Result Date: 12/27/2024 Andrea Farris MD, PhD 12/28/2024 8:48 AM [facility]-based Stereotactic Radiosurgery (SRS) Note: 12/27/2024 RADIATION ONCOLOGIST: Andrea Farris MD, PhD NEUROSURGEON: Jeremy Vazquez MD Primary disease: Renal Histopathology: Renal cell carcinoma PROCEDURE PERFORMED: SRS MACHINE: [employer] STX CLINICAL TARGETS: 1. Lesion begins at T2 ends at T2. Lesion treated to 30 Gy in 5 fraction/s using VMAT arcs with 6MV and/or 10MV photons FFF Fraction 3 of 5 CONSENT: Informed consent was obtained prior to the procedure. Procedure risks, benefits, alternatives and expected outcomes were discussed with the patient. Consent(s) were scanned into the electronic medical record. UNIVERSAL PROTOCOL/ TIMEOUT: Preprocedure verification is complete patient verified and consents confirmed, procedure sites are identified and marked, timeout was called before the start of the procedure. INDICATIONS FOR PROCEDURE: 69 y.o. male with: metastatic renal cell carcinoma, clear type since 2010. Underwent left radical nephrectomy with negative lymph nodes on 10/29/2010, s/p ipilumumab/nivolamab, s/p pembrolizumab/axitinib, and currently on axitinib 5mg once daily. He was found to have upper back pain end of October 2024 and work-up showed a T2 pathologic fracture SINS 13 (unstable) and Bilsky 1c. He is a non-surgical candidate. We are planning 30 Gy in 5 fractions given the Bilsky grade and Dr. Fiore is in agreement. For the stereotactic radiation therapy we will be utilizing IMRT and IGRT for better dose conformity and decreased dose to the normal structures. The risks, benefits and side effects of external beam were discussed in extensive detail and the patient s questions were answered. Side effects discussed included but not limited to fatigue, damage to hear and lungs, decreased blood counts, nausea, diarrhea, fracture risk due to treatment with RT, mucositis, dermatitis, pain, xerostomia, dysgeusia, hair loss, damage to blood vessels and nerves, spinal cord damage, brainstem damage, and weight loss. We look forward to seeing the patient at the time of CT simulation. Thank you for allowing us to participate in the care of your patient. If I may answer any questions, please do not hesitate to contact me at any time. We are treating to improve local tumor control. PROCEDURE DETAILS: CT for treatment planning was previously obtained. The images were transferred to the treatment planning computer and the images were fused with recent MRI. The target and adjacent normal structures were outlined. Multiple plans were run and the dose plan giving the maximum dose to the target and minimum dose to the normal tissue was chosen. quality assurance qa lab technician checks were performed on the plan and treatments were initiated today. The patient's head was immobilized utilizing the encompass frameless mask. Cone beam was taken and minor shifts were made after approved by me for each of the clinical targets. The patient received treatment with 6 MV photons delivering a doses of as described above. After the treatment was completed, the mask was removed from the patient. There were no vitals filed for this visit. Neurologic exam: AOx3, no new focal neurologic signs KPS: Performance status: Karnofsky scale 80 (ECOG grade 1) Performs normal activity with effort; some signs & symptoms of disease CONDITION: The patient tolerated the procedure well and was in stable condition. COMPLICATIONS: None Acute toxicity: (during radiation) Radiation Dermatitis: None=0 Hoarseness: None Esophageal Injury: Grade 0 = None Radiation Pneumonitis: Grade 0 None Cough: no Dyspnea: Grade 0 none Diarrhea: Grade 0 none Nausea: Grade 0 = None Dysuria: no Fatigue: Grade 0: No Fatigue Pain Flare: no Myelopathy: None PLAN: Tolerated the procedure well without complications. LINAC-based Stereotactic Radiotherapy, when complete, the patient will have relevant imaging and follow-up visits at an appropriate time point as clinically indicated. He is to continue current dose of dexamethasone during RT and we can taper as per instructions after treatment. Nursing team has conveyed the taper instructions. Andrea Farris MD, PhD Department of Radiation Oncology Pt will be discussed with attending and cancer medicine team in [facility] Sethi Pager: [phone] The provider may be reached from -7a at pager listed above. After these hours please page the day provider listed under Qgenda. Cosigned by Chris Tolbert MD at 01/09/2025 8:25 AM EDT documented in this encounter [facility] [facility] 01[facility]25 Emergency department Note POC BG 44, pt provided with 8oz juice, Alert and oriented, no other complaints at this time [facility] 01-08-2025 Note Acute Coronary Syndr ome (ACS): Initial Evaluation and Management: [email or web address] [facility] 01-08-2025 Physician Emergency department Note ED Attending No chief complaint on file. Past Medical History: Diagnosis Date Arrhythmia Atrial fibrillation CAD (coronary artery disease) Cancer Believed to be metastatic from renal cancer. Congestive heart failure Diabetes mellitus Dialysis patient DVT (deep venous thrombosis) Essential hypertension, benign GERD (gastroesophageal reflux disease) History of chemotherapy Pulmonary embolism Renal disease Krissy Wright is a 69 y.o. male. Hx of metastatic RCC presenting with concern for tumor thrombus from O[facility]. Sent here for further care and treatment. Pt also has hx of ESRD, no HD today, last HD Wednesday. On exam pt has stable vitals. Bilateral edema. Radiology report from [facility] reviewed - shows tumor thrombus of the renal vein. Given this is tumor thrombus will hold off on starting heparin gtt. Plan to repeat labs and admit to [facility] for further CA treatment. BP 175/83 Pulse 71 Temp 97.4 F (36.3 C) (Oral) Resp 18 Ht 1.829 m (6') SpO2 93% BMI 31.60 kg/m Smoking Status Never Medical Decision Making Amount and/or Complexity of Data Reviewed Labs: ordered. ECG/medicine tests: ordered. Risk Prescription drug management. Decision regarding hospitalization. On 01/08/2025 I saw and examined the patient. I discussed the history and examination with the resident and agree with the plan of care. Isabella Cruz MD 01/08/25 [id number] [facility] 01-08-2025 Physician Emergency department Note dEPARTMENT of Emergency Medicine CHIEF COMPLAINT No chief complaint on file. [facility] Krissy Wright is a 69 y.o. male who presents with a history of renal cell carcinoma, ESRD requiring HD he is presenting to [facility] is a transfer from an outside hospital where he was noted to have worsening tumor thrombus of his IVC. The patient states that he has not been feeling well for a few days and missed his dialysis today. He otherwise denies any fever but does endorse chills he has not been having any chest pain but does endorse some intermittent shortness of breath. He has had bilateral lower extremity swelling which has been worsening over the past several months, I suspect that this is because of advancement of his cancer. The patient states that he has NOT been taking his Xarelto as prescribed. He otherwise was transferred given the concern for advancement of his disease. He does currently get radiation therapy for spinal Mets. He had CTA of the chest to evaluate for pulmonary embolism which was negative and CT of the abdomen and pelvis which showed the worsening tumor thrombus. REVIEW OF SYSTEMS Review of Systems as noted in the HPI PAST MEDICAL HISTORY Past Medical History: Diagnosis Date Arrhythmia Atrial fibrillation CAD (coronary artery disease) Cancer Believed to be metastatic from renal cancer. Congestive heart failure Diabetes mellitus Dialysis patient DVT (deep venous thrombosis) Essential hypertension, benign GERD (gastroesophageal reflux disease) History of chemotherapy Pulmonary embolism Renal disease SURGICAL HISTORY Past Surgical History: Procedure Laterality Date HIP REPLACEMENT Right NEPHRECTOMY REMOVAL CATARACT (PEM) Bilateral CURRENT MEDICATIONS No current facility-administered medications for this encounter. Current Outpatient Medications Medication Sig Dispense Refill Allopurinol 100 MG tablet Aspirin [address] tablet Take 1 tablet by mouth daily. B Shtcxwz-P-Ictsz Acid (Theresa-Fabian) tablet Take 1 tablet by mouth daily. Cartia XT 120 MG Cap SR 24HR capsule XL Take 1 mg by mouth. dexAMETHasone 4 MG tablet Take 1 tablet by mouth every 6 hours. dexAMETHasone 4 MG tablet Take 1 tablet by mouth daily. 40 tablet 0 FeroSul 325 (65 Fe) MG tablet Take 1 tablet by mouth. Take with food. Finasteride 5 MG tablet Take 1 tablet by mouth daily. glipiZIDE 2.5 MG tablet Take 1 tablet by mouth. hydroCODone-acetaminophen 5-325 MG tablet take 1 tablet by mouth every 6 hours for 3 days Inlyta 5 MG tablet Take 1 tablet by mouth Daily (with dinner). Levothyroxine 125 MCG tablet Take 1 tablet by mouth daily. Metoclopramide 5 MG tablet Take 1 tablet by mouth every 6 hours. Metoprolol 100 MG tab regular release Take 1 tablet by mouth 2 times daily. Not certain of dose Pantoprazole [address] tablet DR Take 1 tablet by mouth daily. ALLERGIES Allergies Allergen Reactions Penicillins Other Reaction(s): Other (See Comments), Unknown unknown FAMILY HISTORY Family History Problem Relation Age of Onset Diabetes Mother Stroke Mother Heart Disease - Other Mother Heart Disease - Other Father SOCIAL HISTORY Social History Socioeconomic History Marital status: Single Spouse name: Not on file Number of children: Not on file Years of education: Not on file Highest education level: Not on file Occupational History Not on file Tobacco Use Smoking status: Never Smokeless tobacco: Never Substance and Sexual Activity Alcohol use: Not Currently Drug use: Not Currently Sexual activity: Not on file Other Topics Concern Not on file Social History Narrative Not on file Social Drivers of Health Financial Resource Strain: Not on file Food Insecurity: Not on file Transportation Needs: Not on file Physical Activity: Not on file Stress: Not on file Social Connections: Not on file Personal Safety: Not on file Housing Stability: Not on file PHYSICAL EXAM Smoking Status Never Physical Exam Vitals and nursing note reviewed. Constitutional: Appearance: Normal appearance. HENT: Head: Normocephalic and atraumatic. Eyes: General: No scleral icterus. Right eye: No discharge. Left eye: No discharge. Extraocular Movements: Extraocular movements intact. Conjunctiva/sclera: Conjunctivae normal. Pupils: Pupils are equal, round, and reactive to light. Cardiovascular: Rate and Rhythm: Normal rate and regular rhythm. Pulses: Normal pulses. Heart sounds: Normal heart sounds. No murmur heard. No gallop. Pulmonary: Effort: Pulmonary effort is normal. No respiratory distress. Breath sounds: Normal breath sounds. No wheezing or rales. Abdominal: General: Abdomen is flat. There is no distension. Palpations: Abdomen is soft. Tenderness: There is abdominal tenderness (Mild). There is no guarding. Musculoskeletal: Cervical back: Normal range of motion. Right lower leg: Edema (Severe) present. Left lower leg: Edema (Severe) present. Skin: General: Skin is warm and dry. Neurological: General: No focal deficit present. Mental Status: He is alert. Psychiatric: Mood and Affect: Mood normal. Behavior: Behavior normal. ED COURSE & MEDICAL DECISION MAKING ED Course as of 01/09/25 0550 WedJan 09, 2025 0110 Glucose(!!): 48 BG improved with oral intake The patient is presenting as a transfer from an outside hospital for concern of worsening renal cell carcinoma with tumor thrombus of the IVC. The patient also has a past medical history of end-stage renal disease and did miss his most recent session of dialysis. He normally scheduled for Wednesday dialysis. The differential diagnosis includes but is not limited to: Tumor lysis syndrome, worsening of his underlying malignancy, tumor thrombus, IVC occlusion secondary to thrombus, hepatic congestion, ESRD, fluid overload The patient is presenting from an outside hospital where he already had imaging completed including CTA chest to evaluate for pulmonary embolism as well as CT abdomen and pelvis in order to evaluate for worsening of his malignancy. These images ultimately showed worsening of his malignancy with concern for tumor thrombus invading the IVC an leading to vascular congestion. He otherwise also had a CT chest which was remarkable for some nodules in the lungs however otherwise was not concerning for pulmonary embolism. Given that the patient has already had imaging we will hold off on repeating this for now. Otherwise we will obtain additional lab work including chemistry can that the patient did miss dialysis. We will obtain EKG in order to evaluate for possible electrolyte imbalances, although this ultimately was unremarkable and the patient had no evidence of peaked T-waves, ST segment elevation, or other electrolyte abnormalities which may be identified in the EKG. The patient was reportedly started on antibiotics at the outside hospital however upon his arrival here while he does have a mild leukocytosis, his lactate is normal and there is no clear source for infection. Given that we will defer further antibiotic therapy at this time. We will also obtain LFTs and lipase at this time in order to evaluate for possible additional sources of metastatic involvement. Ultimately the patient's chemistry was remarkable for electrolyte imbalances which would be consistent with chronic kidney disease and ESRD although he notably did not have significant potassium elevation requiring emergent hemodialysis. He did have low glucose which was remedy by giving him oral supplementation and repeat showed adequate response. The hypoglycemia protocol was also ordered. The patient's final disposition will be admission to the [facility] level of care for further evaluation and management of his worsening tumor thrombus and renal cell carcinoma and his additional need for dialysis Medical Decision Making Amount and/or Complexity of Data Reviewed Labs: ordered. Decision-making details documented in ED Course. ECG/medicine tests: ordered. Risk Prescription drug management. Decision regarding hospitalization. Ton Mayen MD Resident 01/09/25 0556 [facility] Work Phone: 01-08-2025 Emergency department Note Pt arrived via EMS from outside facility where he presented with SOB and weakness. Pt with hx of renal cell carcinoma, found to have increased tumor growth. Here for further treatment. [facility] 01-08-2025 Emergency department Note Bed: E025 Expected date: 01/08/25 Expected time: 12:00 AM Means of arrival: Comments: [facility] 01-08-2025 Discharge summary Note Date/Time January 08, 2025 5:29pm [facility] Medical Records Department [address] [place] [address] Emergency Department Summary 01/08/25 MR#: [id number] Acct: [id number] Name: KRISSY WRIGHT Rep #:[id number] : 1955 69 From: Mya patton DO PCP: Dr. Sam Del Toro, Status:REG ER Location: ED HPI History of Present Illness Chief Complaint: Shortness of Breath Narrative Narrative: Chief complaint and HPI: Shortness of breath and constipation. 68-year-old malewith past medical history of DVT/PE, GERD, CAD, CHF, proximal atrial fibrillation, DM2, metastatic renal cell carcinoma on chemotherapy with recent radiation, ESRD on dialysis Wednesday/Wednesday/Wednesday presents for evaluation of shortness of breath and constipation. Patient states approximately 1 month ago he was suffering from diarrhea. Since then he states that he has been sufferingfrom constipation all month. Taking stool softeners with minimal relief. Patient states that his hemorrhoids have been swollen all month. He denies any significant pain in the hemorrhoids. Patient states that he has some abdominal pain secondary to the constipation. Patient states for the past week he has been having increased shortness of breath and bilateral lower extremity swelling. States he woke up today too weak to use his walker. He missed dialysis but received on Wednesday. He denies any fever, chills, chest pain, nausea, vomiting, dysuria. States that he makes little urine. Review of systems: See HPI Medications: As listed on the chart Allergies: As listed on the chart PFSH: Per chart Vital signs: As listed on the chart. Reviewed. Physical exam: Gen: A&O x3 Head: Normocephalic, atraumatic Eyes: No sclera icterus, conjunctiva clear ENT: Moist mucous membranes Neck: Trachea midline, full range of motion CV: RRR, no murmurs, + 2 pitting bilateral peripheral edema from the feet to theknees Resp: Lungs diminished in the bilateral bases, no wheezing GI: Abd soft, non-distended, mildly tender to palpation diffusely, no r/r/g : No CVA tenderness Rectal: Swollen external hemorrhoids that are nontender. Normal tone and sensation. No masses, fluctuance, or tenderness. No pain out of proportion. Stool brown on gloved finger. No large stool ball encountered. Musc: Moves all extremities but very weak Skin: Warm, dry Neuro: Alert, oriented, grossly intact, sensation intact Psych: Cooperative, appropriate mood and affect [facility] Medical History Wears glasses History of Clostridium difficile infection Prostate disease Low iron History of pulmonary embolus (PE) History of DVT (deep vein thrombosis) Easy bruising Blackout Non-smoker Cancer Diabetes GERD (gastroesophageal reflux disease) Pancreatitis Coronary artery disease History of kidney cancer CKD (chronic kidney disease) stage 4, GFR 15-29 ml/min Pancreatic mass Anemia COVID-19 (07/11/21) Renal dysfunction Chronic diastolic (congestive) heart failure Deep vein thrombosis of right lower extremity (11/19/14) Paroxysmal atrial fibrillation Neoplastic (malignant) related fatigue Hypothyroidism Pneumonitis Metastatic 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 Abnormal CT of the abdomen Obesity Atrial fibrillation with rapid ventricular response (07/04/19) Bilateral pulmonary embolism (11/19/14) Type 2 diabetes mellitus Essential (primary) hypertension Gout Renal cell cancer Viral URI Encounter for education Home Medications ?Medication ?Instructions ?Recorded ?Last Taken ?Type allopurinol 100 mg tablet 100 mg PO DAILYCM gout 05/0308/05/19 History finasteride 5 mg tablet 5 mg PO DAILY prostate 05/0308/05/19 History clonidine HCl 0.1 mg tablet 0.1 mg PO BID blood pressu re 09/25/21 02/25/22 09:30 History ferrous sulfate 325 mg (65 mg 325 mg PO BID #60 tabs 0 01/06/22 Unknown Rx iron) tablet pantoprazole 40 mg tablet,delayed 40 mg PO DAILY GERD 02/16/22 02/25/22 09:30 History release diltiazem HCl 120 mg See Rx Instructions .Route 0 11/22/23 Unknown Rx capsule,extended release 24 hr .COMPLEX #180 caps vitamin B complex-vitamin C-folic 1 tab PO DAILY 01/02 Unknown History acid 0.8 mg tablet (Theresa-Fabian) glipizide 5 mg tablet 5 mg PO DAILY 08/15/24 Unkno wn History levothyroxine 125 mcg tablet 125 mcg PO DAILY 08/15/24 Unknown History aspirin 81 mg tablet,delayed 81 mg PO QDAY 10/23/24 Un known History release (Adult Low Dose Aspirin) axitinib 5 mg tablet 5 mg PO QDAY 11/28/24 Unknow n History metoprolol tartrate 100 mg tablet 100 mg PO BID #180 t abs 12/01/24 Unknown Rx dexamethasone 4 mg tablet 2 mg PO Q12H 01/08/25 Unknow n History Allergy/AdvReac Type Severity Reaction Status Date / Time Penicillins (PCN) Allergy PT UNSURE Verified 01/08/25 09:35 OF REACTION Family History Mother Diabetes Heart disease Kidney disease Hypertension CVA (cerebral vascular accident) Father Heart disease Surgical History S/P arteriovenous (AV) fistula creation (~03/2022) History of esophagogastroduodenoscopy (EGD) History of colonoscopy (2018) History of total hip arthroplasty (04/2015) History of left nephrectomy (2010) Social History (Reviewed 04/28/25 @ 19:20 by CARLOS Brown housing: house Smoking Status: Never smoker second hand exposure: No alcohol intake: never substance use type: does not use caffeine: Yes frequency: does not exercise EXAM Physical Exam Const Vital Signs: 01/08/25 09:29 01/08/25 09:33 01/08/25 10:28 Temperature 97.6 F L 97.6 F L Temperature Source Oral Oral Pulse Rate 66 99 65 Respiratory Rate 26 H 26 H 15 Respiratory Effort Respiratory Depth Respiratory Pattern Blood Pressure 173/82 H 173/82 H 169/79 H Blood Pressure Mean 112 112 109 Pulse Ox 99 99 95 Oxygen Delivery Method Room Air Room Air Room Air 01/08/25 10:47 01/08/25 10:50 01/08/25 10:52 Temperature 97.6 F L Temperature Source Oral Pulse Rate 65 65 Respiratory Rate 20 H 17 Respiratory Effort Normal Respiratory Depth Normal Respiratory Pattern Normal Blood Pressure 164/81 H 164/81 H Blood Pressure Mean 108 108 Pulse Ox 96 97 Oxygen Delivery Method Room Air Room Air 01/08/25 11:00 01/08/25 12:05 01/08/25 13:00 Temperature 97.6 F L 97.5 F L 97.7 F L Temperature Source Oral Oral Oral Pulse Rate 67 70 70 Respiratory Rate 20 H 14 22 H Respiratory Effort Respiratory Depth Respiratory Pattern Blood Pressure 170/78 H 167/83 H 170/78 H Blood Pressure Mean 108 111 108 Pulse Ox 97 97 96 Oxygen Delivery Method Room Air Room Air Room Air 01/08/25 14:00 01/08/25 15:32 Temperature 97.5 F L Temperature Source Oral Pulse Rate 73 72 Respiratory Rate 21 H 16 Respiratory Effort Respiratory Depth Respiratory Pattern Blood Pressure 168/81 H 171/87 H Blood Pressure Mean 110 115 Pulse Ox 96 95 Oxygen Delivery Method Room Air Room Air MDM MDM MDM Narrative Medical decision making narrative: 68-year-old male with past medical history of DVT/PE, GERD, CAD, CHF, proximal atrial fibrillation, DM2, metastatic renal cell carcinoma on chemotherapy with recent radiation, ESRD on dialysis Wednesday/Wednesday/Wednesday presents for evaluation of shortness of breath and constipation. See physical exam findings. On presentation, patient is no acute distress however he is hypertensive. I suspect some of his hypertension is secondary to his missed dialysis. Differential diagnosis includes but is not limited to constipation, GI bleed, electrolyte abnormality, YONY, CHF exacerbation, worsening metastatic disease, PE, pneumonia, UTI. Patient states he is on a blood thinner although I do not have it listed in his chart. Will be judicial with fluids as patient is fluid overloaded on exam and missed dialysis. Broad laboratory workup ordered including CTA chest to assess for PE given his high risk of PE given cancer as well as CT abdomen pelvis. Patient will need dialysis in 24 hours given that I did give contrast. EKG reviewed see below. CBC with mild leukocytosis of 12.6. Patient has baseline anemia with a hemoglobin of 10.1. New thrombocytosis of 149. Coagulation panel unremarkable. CMP consistent with dehydration and baseline ESRD. BUN 87. Creatinine 4.92. Patient did not receive dialysis today. No transaminitis. Lipase unremarkable. Lactic acid originally 2.3. Now normalized at 2. I did not give fluids given overload. Troponin 80 and 72. Patient not having any chest pain. Patient's elevated troponin may be secondary to ESRD however cannot fully rule out NSTEMI. UA was obtained via straight cath. Positive for blood. Patient states is not abnormal for him to have blood with his recent cancer. Negative for ketones. He has mild leuk esterase without nitrates. He has 5-10 WBCs and +1 bacteria. Possible UTI. Will send for urine culture. Will give Rocephin. Patient has an allergy to penicillin although he states he thinks it was just a rash. Will give Rocephin. CT of the chest is negative for PE. Patient has multiple pulmonary nodules. He has known metastatic disease to his lungs. Stable multilobulated masses in the right kidney as well as masses seen in the pancreas. He does have a minimalright pleural effusion. CT of the abdomen pelvis shows right renal cell carcinoma strongly suspected volume up to the solid portion of the right kidney. Additional large cystic lesions. Tumor thrombus suspected in the right renal vein and IVC. Status post left nephrectomy for renal cell carcinoma. Numerous pulmonary nodules we identified. Pancreatic cystic lesion seems pseudocyst or sequelae of pancreatitis. Correlate with lipase. Lipase unremarkable. Normal appearance of the large intestines and not compatible with constipation. Patient's abdominal pain may be secondary to this tumor thrombus in the renal vein and IVC. His COVID, flu, RSV negative. He does have occult positive stool. I do not have vascular surgery on-call for the thrombus. I did call thepatient's urologist here Dr. Rushing. He recommends transfer to [facility]. I did inform the patient of the results as well as the plan. He confirmed understanding. We had a delay in disposition with the transfer as paged physician took a while to call back. We did call the transfer line to have thisexpedited. I spoke with the oncologist Dr. Cuellar who accepted admission. Planoriginally was for direct admit but given there is limited availability and hospital beds as well as patient's need for dialysis in the next 24 hours, patient will be an ED transfer. Plan is to hold off on heparin at this time forthe thrombus as patient is on anticoagulation. I updated the patient of the plan and he confirmed understanding. I was updated that the patient is not actually on anticoagulation which originally he stated he was. Will reach back out to transfer physician to see if heparin should be started now that patient is not on anticoagulation however he does have an occult GI bleed. EKG: Interpreted by me/EM physician: EKG shows normal sinus rhythm with nonspecific ST changes. Heart rate 66. Impression: 1. Metastatic right renal cell carcinoma with new tumor thrombus suspected in the right renal vein and IVC 2. Fluid overload with small pleural effusion 3. History of ESRD with missed dialysis today 3. Possible UTI with gross hematuria 4. Pancytopenia 5. Elevated troponin 6. Chronic anemia 7. Occult GI bleed Lab Data Labs: Laboratory Results - last 24 hr 01/08/25 01/08/25 01/08/25 09:40 11:03 11:25 WBC 12.6 H RBC 3.40 L Hgb 10.1 L Hct 32.0 L MCV 94.1 H MCH 29.7 MCHC 31.6 L RDW Std Deviation 65.0 H RDW Coeff of Shanell 18.9 H Plt Count 149 L MPV 10.4 Neut % (Auto) Not Reportable Absolute Neuts (auto) 10.9 H Absolute Lymphs (auto) 0.50 L Total Counted 100 Neutrophils % (Manual) 84 H Band Neutrophils % 3 Lymphocytes % (Manual) 4 L Monocytes % (Manual) 5 Metamyelocytes % 2 H Myelocytes % 1 H Promyelocytes % 1 H Diff Path Review May foll Platelet Estimate SLT DEC RBC Morphology NORM C+C PT 13.6 INR 1.0 APTT 25.6 Sodium 139 Potassium 4.7 Chloride 95 L Carbon Dioxide 23.0 Anion Gap 21 H BUN 87 H Creatinine 4.92 H Estim Creat Clear Calc 17.67 L Est GFR (MDRD) Non-Af 12 L BUN/Creatinine Ratio 17.8 Glucose 162 H Lactic Acid 2.3 H* Calcium 8.6 Total Bilirubin 0.55 AST 25 ALT 29 Alkaline Phosphatase 67 Troponin T High Sens 80 H* D Troponin T Hi Sens 2 Hr Total Protein 6.1 Albumin 3.3 L Globulin 2.8 Albumin/Globulin Ratio 1.2 Lipase 28 Urine Color Red Urine Clarity Cloudy Urine pH 7.0 Ur Specific [place] 1.010 Urine Protein 500 H Urine Glucose (UA) 100 H Urine Ketones Negative Urine Occult Blood 250 H Urine Nitrite Negative Urine Bilirubin Negative Urine Urobilinogen Normal Ur Leukocyte Esterase 25 H Urine RBC > 100 SEEN Urine WBC 5-10 SEEN Ur Squamous Epith Cells 0 SEEN Urine Bacteria 1+ Urine Mucus 0 SEEN 01/08/25 01/08/25 13:24 15:20 WBC RBC Hgb Hct MCV MCH MCHC RDW Std Deviation RDW Coeff of Shanell Plt Count MPV Neut % (Auto) Absolute Neuts (auto) Absolute Lymphs (auto) Total Counted Neutrophils % (Manual) Band Neutrophils % Lymphocytes % (Manual) Monocytes % (Manual) Metamyelocytes % Myelocytes % Promyelocytes % Diff Path Review Platelet Estimate RBC Morphology PT INR APTT Sodium Potassium Chloride Carbon Dioxide Anion Gap BUN Creatinine Estim Creat Clear Calc Est GFR (MDRD) Non-Af BUN/Creatinine Ratio Glucose Lactic Acid 2.0 Calcium Total Bilirubin AST ALT Alkaline Phosphatase Troponin T High Sens Troponin T Hi Sens 2 Hr 72 H* Total Protein Albumin Globulin Albumin/Globulin Ratio Lipase Urine Color Urine Clarity Urine pH Ur Specific [place] Urine Protein Urine Glucose (UA) Urine Ketones Urine Occult Blood Urine Nitrite Urine Bilirubin Urine Urobilinogen Ur Leukocyte Esterase Urine RBC Urine WBC Ur Squamous Epith Cells Urine Bacteria Urine Mucus Radiography Diagnostic Testing: Clinical Impression(s) from Imaging Studies Abdomen/Pelvis CT 01/08/25 10:14 IMPRESSION: Right renal cell carcinoma strongly suspected involving much of the solid portion of the right kidney. Additional large cystic lesions are identified. Tumor thrombus suspected in the right renal vein and IVC Status post left nephrectomy for renal cell carcinoma. Numerous pulmonary nodules re-identified, suspect for pulmonary metastatic disease. Pancreatic cystic lesions, assumed pseudocysts from sequela of pancreatitis. Correlate with medical history. Normal appearance of large intestine is not compatible with diagnosis of constipation. Reading [facility] Chest CTA 01/08/25 10:18 IMPRESSION: No evidence of pulmonary embolism. Multiple pulmonary nodules. Stable multi lobulated masses in the right kidney as well as masses seen in the pancreas. Reading [facility] Discharge Plan Triage Chief Complaint: Shortness of Breath ED Provider: Mya Haile Dx/Rx/DC Orders Prescriptions: No Action clonidine HCl 0.1 mg tablet 0.1 mg PO BID Theresa-Fabian 0.8 mg tablet 1 tab PO DAILY levothyroxine 125 mcg tablet 125 mcg PO DAILY glipizide 5 mg tablet 5 mg PO DAILY aspirin [Adult Low Dose Aspirin] 81 mg tablet,delayed release (DR/EC) 81 mg PO QDAY allopurinol 100 MG tablet 100 mg PO DAILYCM Patient Comments: GOUT finasteride 5 MG tablet 5 mg PO DAILY Patient Comments: BPH ferrous sulfate 325 mg (65 mg iron) tablet 325 mg PO BID Qty: 60 0RF pantoprazole 40 mg tablet,delayed release (DR/EC) 40 mg PO DAILY Rx Instructions: take 1 tablet by mouth once daily dexamethasone 4 mg tablet 2 mg PO Q12H diltiazem HCl 120 mg capsule,extended release 24hr See Rx Instructions .ROUTE .COMPLEX Qty: 180 4RF Dose Instruction: take 1 capsule by mouth twice a day Rx Instructions: take 1 capsule by mouth twice a day axitinib 5 mg tablet 5 mg PO QDAY metoprolol tartrate 100 mg tablet 100 mg PO BID Qty: 180 3RF Primary Care Provider: Sam Del Toro Referrals: Sam Del Toro DO [Primary Care Provider] - Print Language: Vincentian What to do if you have Problems For any increased pain, shortness of breath, bleeding, nausea or vomiting, chestpain, or any unexpected problems, contact your Primary Care Provider. Call [facility] ([phone]) or report to the closest Emergency Room. Call 911 if necessary. 01/08/25 1653 <Electronically signed by Mya Haile DO> Cosigner Signature (if applicable): CC: Dr. Sam Del Toro DO ~ Signed ADDENDUM by Dr. Mya Haile DO on 01/08/25 at 1729 [facility] transfer line called me back. Oncologist states that it is my decision to started first not. Given that I am not a vascular surgeon and patient has a occult GI bleed with metastatic cancer and increased risk of bleeding on a thinner, we will hold off on this time. I did discuss this with the patient as well as the family and everybody is in agreement to hold off until evaluated at [facility]. 01/08/25 1729<Electronically signed by Mya Haile DO> Cosigner Signature (if applicable): cc: Dr. Sam Del Toro DO ~* Signed [facility] Work Phone: 1(741) 211-677106-16-2025 Radiology Diagnostic study [facility]06-16-2025 Radiology Diagnostic study [facility]06-06-2025 History of Present illness Narrative* Sari Hilario RN - 12/29/2024 8:50 AM EDT Patient seen in clinic for Vital signs post-SBRT; Please see flowsheet. Patient provided paperwork with future appointments. Confirmed appointment times, locations, and reason for appointments with family and patient; Patient and family verbalize understanding, are agreeable to plan, and have no further questions or concerns at this time. Patient and family escorted out to the waiting room. Sari Hilario RN. [facility] Procedure note* Casey Herman MD, PhD - 12/29/2024 8:20 AM EDTAssociated Order(s): GENERAL PROCEDURE [facility]-based Stereotactic Radiosurgery (SRS) Note: 12/29/2024 RADIATION ONCOLOGIST: Andrea Farris MD, PhD NEUROSURGEON: Jeremy Vazquez MD Primary disease: Renal Histopathology: Renal cell carcinoma PROCEDURE PERFORMED: SRS MACHINE: RepairyBeam STX CLINICAL TARGETS: 1. Lesion begins at T2 ends at T2. Lesion treated to 30 Gy in 5 fraction/s using VMAT arcs with 6MVand/or 10MV photons FFF Fraction 5 of 5 CONSENT: Informed consent was obtained prior to the procedure. Procedure risks, benefits, alternatives and expected outcomes were discussed with the patient. Consent(s) were scanned into the electronic medical record. UNIVERSAL PROTOCOL/ TIMEOUT: Preprocedure verification is complete patient verified and consents confirmed, procedure sites are identified and marked, timeout was called before the start of the procedure. INDICATIONS FOR PROCEDURE: 69 y.o. male with: metastatic renal cell carcinoma, clear type since 2010. Underwent left radical nephrectomy with negative lymph nodes on 10/29/2010, s/p ipilumumab/nivolamab, s/p pembrolizumab/axitinib, and currently on axitinib 5mg once daily. He was found to have upper back pain end of October 2024 and work-up showed a T2 pathologic fracture SINS 13 (unstable) and Bilsky 1c. He is a non-surgical candidate. We are planning 30 Gy in 5 fractions given the Bilsky grade and Dr. Fiore is in agreement. For the stereotactic radiation therapy we will be utilizing IMRT and IGRT for better dose conformity and decreased dose to the normal structures. The risks, benefits andside effects of external beam were discussed in extensive detail and the patient s questions were answered. Side effects discussed included but not limited to fatigue, damage to hear and lungs, decreased blood counts, nausea, diarrhea, fracture risk due to treatment with RT, mucositis, dermatitis, pain, xerostomia, dysgeusia, hair loss, damage to blood vessels and nerves, spinal cord damage, brainstem damage, and weight loss. We look forward to seeing the patient at the time of CT simulation. Thank you for allowing us to participate in the care of your patient. If I may answer any questions, please do not hesitate to contact me at any time. We are treating to improve local tumor control. PROCEDURE DETAILS: CT for treatment planning was previously obtained. The images were transferred to the treatment planning computer and the images were fused with recent MRI. The target and adjacentnormal structures were outlined. Multiple plans were run and the dose plan giving the maximum dose to the target and minimum dose to the normal tissue was chosen. quality assurance qa lab technician checks were performed on the plan and treatments were initiated today. The patient's head was immobilized utilizing the encompass frameless mask. Cone beam was taken and minor shifts were made after approved by me for each of the clinical targets. The patient received treatment with 6 MV photons delivering a doses ofas described above. After the treatment was completed, the mask was removed from the patient. PLAN: Tolerated the procedure well without complications. LINAC-based Stereotactic Radiotherapy, when complete, the patient will have relevant imaging and follow-up visits at an appropriate time point as clinically indicated. He is to continue current dose of dexamethasone during RT and we can taper as per instructions after treatment. Nursing team has conveyed the taper instructions. Casey Herman MD, PhD [facility] Work Phone: 1(506) 632-535806-06-2025 Procedure note* Casey Herman MD, PhD - 12/29/2024 8:20 AM EDTAssociated Order(s): GENERAL PROCEDURE Linac-based Stereotactic Radiosurgery (SRS) Note: 12/29/2024 RADIATION ONCOLOGIST: Andrea Farris MD, PhD NEUROSURGEON: Jeremy Vazquez MD Primary disease: Renal Histopathology: Renal cell carcinoma PROCEDURE PERFORMED: SRS MACHINE: [employer] TrueBeam STX CLINICAL TARGETS: 1. Lesion begins at T2 ends at T2. Lesion treated to 30 Gy in 5 fraction/s using VMAT arcs with 6MVand/or 10MV photons FFF Fraction 5 of 5 CONSENT: Informed consent was obtained prior to the procedure. Procedure risks, benefits, alternatives and expected outcomes were discussed with the patient. Consent(s) were scanned into the electronic medical record. UNIVERSAL PROTOCOL/ TIMEOUT: Preprocedure verification is complete patient verified and consents confirmed, procedure sites are identified and marked, timeout was called before the start of the procedure. INDICATIONS FOR PROCEDURE: 69 y.o. male with: metastatic renal cell carcinoma, clear type since 2010. Underwent left radical nephrectomy with negative lymph nodes on 10/29/2010, s/p ipilumumab/nivolamab, s/p pembrolizumab/axitinib, and currently on axitinib 5mg once daily. He was found to have upper back pain end of October 2024 and work-up showed a T2 pathologic fracture SINS 13 (unstable) and Bilsky 1c. He is a non-surgical candidate. We are planning 30 Gy in 5 fractions given the Bilsky grade and Dr. Fiore is in agreement. For the stereotactic radiation therapy we will be utilizing IMRT and IGRT for better dose conformity and decreased dose to the normal structures. The risks, benefits andside effects of external beam were discussed in extensive detail and the patient s questions were answered. Side effects discussed included but not limited to fatigue, damage to hear and lungs, decreased blood counts, nausea, diarrhea, fracture risk due to treatment with RT, mucositis, dermatitis, pain, xerostomia, dysgeusia, hair loss, damage to blood vessels and nerves, spinal cord damage, brainstem damage, and weight loss. We look forward to seeing the patient at the time of CT simulation. Thank you for allowing us to participate in the care of your patient. If I may answer any questions, please do not hesitate to contact me at any time. We are treating to improve local tumor control. PROCEDURE DETAILS: CT for treatment planning was previously obtained. The images were transferred to the treatment planning computer and the images were fused with recent MRI. The target and adjacentnormal structures were outlined. Multiple plans were run and the dose plan giving the maximum dose to the target and minimum dose to the normal tissue was chosen. quality assurance qa lab technician checks were performed on the plan and treatments were initiated today. The patient's head was immobilized utilizing the encompass frameless mask. Cone beam was taken and minor shifts were made after approved by me for each of the clinical targets. The patient received treatment with 6 MV photons delivering a doses ofas described above. After the treatment was completed, the mask was removed from the patient. PLAN: Tolerated the procedure well without complications. LINAC-based Stereotactic Radiotherapy, when complete, the patient will have relevant imaging and follow-up visits at an appropriate time point as clinically indicated. He is to continue current dose of dexamethasone during RT and we can taper as per instructions after treatment. Nursing team has conveyed the taper instructions. Casey Herman MD, PhD [facility] History of Present illness Narrative* Cat Braun RN - 12/28/2024 8:50 AM EDT VS obtained post radiation treatment and stable. Patient with no further needs at this time. [facility] Procedure note* Andrea Farris MD, PhD - 12/28/2024 8:20 AM EDTAssociated Order(s): GENERAL PROCEDURE Linac-based Stereotactic Radiosurgery (SRS) Note: 12/28/2024 RADIATION ONCOLOGIST: Andrea Farris MD, PhD NEUROSURGEON: Jeremy Vazquez MD Primary disease: Renal Histopathology: Renal cell carcinoma PROCEDURE PERFORMED: SRS MACHINE: RepairyBeam STX CLINICAL TARGETS: 1. Lesion begins at T2 ends at T2. Lesion treated to 30 Gy in 5 fraction/s using VMAT arcs with 6MVand/or 10MV photons FFF Fraction 4 of 5 CONSENT: Informed consent was obtained prior to the procedure. Procedure risks, benefits, alternatives and expected outcomes were discussed with the patient. Consent(s) were scanned into the electronic medical record. UNIVERSAL PROTOCOL/ TIMEOUT: Preprocedure verification is complete patient verified and consents confirmed, procedure sites are identified and marked, timeout was called before the start of the procedure. INDICATIONS FOR PROCEDURE: 69 y.o. male with: metastatic renal cell carcinoma, clear type since 2010. Underwent left radical nephrectomy with negative lymph nodes on 10/29/2010, s/p ipilumumab/nivolamab, s/p pembrolizumab/axitinib, and currently on axitinib 5mg once daily. He was found to have upper back pain end of October 2024 and work-up showed a T2 pathologic fracture SINS 13 (unstable) and Bilsky 1c. He is a non-surgical candidate. We are planning 30 Gy in 5 fractions given the Bilsky grade and Dr. Fiore is in agreement. For the stereotactic radiation therapy we will be utilizing IMRT and IGRT for better dose conformity and decreased dose to the normal structures. The risks, benefits andside effects of external beam were discussed in extensive detail and the patient s questions were answered. Side effects discussed included but not limited to fatigue, damage to hear and lungs, decreased blood counts, nausea, diarrhea, fracture risk due to treatment with RT, mucositis, dermatitis, pain, xerostomia, dysgeusia, hair loss, damage to blood vessels and nerves, spinal cord damage, brainstem damage, and weight loss. We look forward to seeing the patient at the time of CT simulation. Thank you for allowing us to participate in the care of your patient. If I may answer any questions, please do not hesitate to contact me at any time. We are treating to improve local tumor control. PROCEDURE DETAILS: CT for treatment planning was previously obtained. The images were transferred to the treatment planning computer and the images were fused with recent MRI. The target and adjacentnormal structures were outlined. Multiple plans were run and the dose plan giving the maximum dose to the target and minimum dose to the normal tissue was chosen. quality assurance qa lab technician checks were performed on the plan and treatments were initiated today. The patient's head was immobilized utilizing the encompass frameless mask. Cone beam was taken and minor shifts were made after approved by me for each of the clinical targets. The patient received treatment with 6 MV photons delivering a doses ofas described above. After the treatment was completed, the mask was removed from the patient. There were no vitals filed for this visit. Neurologic exam: AOx3, no new focal neurologic signs KPS: Performance status: Karnofsky scale 80 (ECOG grade 1) Performs normal activity with effort; some signs & symptoms of disease CONDITION: The patient tolerated the procedure well and was in stable condition. COMPLICATIONS: None Acute toxicity: (during radiation) Radiation Dermatitis: None=0 Hoarseness: None Esophageal Injury: Grade 0 = None Radiation Pneumonitis: Grade 0 None Cough: no Dyspnea: Grade 0 none Diarrhea: Grade 0 none Nausea: Grade 0 = None Dysuria: no Fatigue: Grade 0: No Fatigue Pain Flare: no Myelopathy: None PLAN: Tolerated the procedure well without complications. LINAC-based Stereotactic Radiotherapy, when complete, the patient will have relevant imaging and follow-up visits at an appropriate time point as clinically indicated. He is to continue current dose of dexamethasone during RT and we can taper as per instructions after treatment. Nursing team has conveyed the taper instructions. Andrea Farris MD, PhD Department of Rad[facility] Procedure note* Andrea Farris MD, PhD - 12/28/2024 8:20 AM EDTAssociated Order(s): GENERAL PROCEDURE Linac-based Stereotactic Radiosurgery (SRS) Note: 12/28/2024 RADIATION ONCOLOGIST: Andrea Farris MD, PhD NEUROSURGEON: Jeremy Vazquez MD Primary disease: Renal Histopathology: Renal cell carcinoma PROCEDURE PERFORMED: SRS MACHINE: RepairyBeam STX CLINICAL TARGETS: 1. Lesion begins at T2 ends at T2. Lesion treated to 30 Gy in 5 fraction/s using VMAT arcs with 6MVand/or 10MV photons FFF Fraction 4 of 5 CONSENT: Informed consent was obtained prior to the procedure. Procedure risks, benefits, alternatives and expected outcomes were discussed with the patient. Consent(s) were scanned into the electronic medical record. UNIVERSAL PROTOCOL/ TIMEOUT: Preprocedure verification is complete patient verified and consents confirmed, procedure sites are identified and marked, timeout was called before the start of the procedure. INDICATIONS FOR PROCEDURE: 69 y.o. male with: metastatic renal cell carcinoma, clear type since 2010. Underwent left radical nephrectomy with negative lymph nodes on 10/29/2010, s/p ipilumumab/nivolamab, s/p pembrolizumab/axitinib, and currently on axitinib 5mg once daily. He was found to have upper back pain end of October 2024 and work-up showed a T2 pathologic fracture SINS 13 (unstable) and Bilsky 1c. He is a non-surgical candidate. We are planning 30 Gy in 5 fractions given the Bilsky grade and Dr. Fiore is in agreement. For the stereotactic radiation therapy we will be utilizing IMRT and IGRT for better dose conformity and decreased dose to the normal structures. The risks, benefits andside effects of external beam were discussed in extensive detail and the patient s questions were answered. Side effects discussed included but not limited to fatigue, damage to hear and lungs, decreased blood counts, nausea, diarrhea, fracture risk due to treatment with RT, mucositis, dermatitis, pain, xerostomia, dysgeusia, hair loss, damage to blood vessels and nerves, spinal cord damage, brainstem damage, and weight loss. We look forward to seeing the patient at the time of CT simulation. Thank you for allowing us to participate in the care of your patient. If I may answer any questions, please do not hesitate to contact me at any time. We are treating to improve local tumor control. PROCEDURE DETAILS: CT for treatment planning was previously obtained. The images were transferred to the treatment planning computer and the images were fused with recent MRI. The target and adjacentnormal structures were outlined. Multiple plans were run and the dose plan giving the maximum dose to the target and minimum dose to the normal tissue was chosen. quality assurance qa lab technician checks were performed on the plan and treatments were initiated today. The patient's head was immobilized utilizing the encompass frameless mask. Cone beam was taken and minor shifts were made after approved by me for each of the clinical targets. The patient received treatment with 6 MV photons delivering a doses ofas described above. After the treatment was completed, the mask was removed from the patient. There were no vitals filed for this visit. Neurologic exam: AOx3, no new focal neurologic signs KPS: Performance status: Karnofsky scale 80 (ECOG grade 1) Performs normal activity with effort; some signs & symptoms of disease CONDITION: The patient tolerated the procedure well and was in stable condition. COMPLICATIONS: None Acute toxicity: (during radiation) Radiation Dermatitis: None=0 Hoarseness: None Esophageal Injury: Grade 0 = None Radiation Pneumonitis: Grade 0 None Cough: no Dyspnea: Grade 0 none Diarrhea: Grade 0 none Nausea: Grade 0 = None Dysuria: no Fatigue: Grade 0: No Fatigue Pain Flare: no Myelopathy: None PLAN: Tolerated the procedure well without complications. LINAC-based Stereotactic Radiotherapy, when complete, the patient will have relevant imaging and follow-up visits at an appropriate time point as clinically indicated. He is to continue current dose of dexamethasone during RT and we can taper as per instructions after treatment. Nursing team has conveyed the taper instructions. Andrea Farris MD, PhD Department of Radiation Oncology [facility] History of Present illness Narrative* Cat Braun RN - 12/27/2024 9:20 AM EDT VS obtained post radiation treatment. BP 176/84, HR 70 Patient reports that he forgot to take his BP medicine this morning. Patient typically takes Metoprolol 100 mg twice daily. Encouraged patient to take BP medication when he gets home. Also advised patient if he develops any headaches, trouble with his vision, CP, SOB, nausea, lightheadedness or dizziness to report to the ED. Patient verbalizes understanding at this time. Patient also reports that he may soon need a refill on his Hydrocodone. Advised patient he will need to contact the ordering provider. Patient again verbalizes understanding. No further needs or questions from patient at this time. [facility] Procedure note* Andrea Farris MD, PhD - 12/27/2024 8:50 AM EDTAssociated Order(s): GENERAL PROCEDURE Linac-based Stereotactic Radiosurgery (SRS) Note: 12/27/2024 RADIATION ONCOLOGIST: Andrea Farris MD, PhD NEUROSURGEON: Jeremy Vazquez MD Primary disease: Renal Histopathology: Renal cell carcinoma PROCEDURE PERFORMED: SRS MACHINE: RepairyBeam STX CLINICAL TARGETS: 1. Lesion begins at T2 ends at T2. Lesion treated to 30 Gy in 5 fraction/s using VMAT arcs with 6MVand/or 10MV photons FFF Fraction 3 of 5 CONSENT: Informed consent was obtained prior to the procedure. Procedure risks, benefits, alternatives and expected outcomes were discussed with the patient. Consent(s) were scanned into the electronic medical record. UNIVERSAL PROTOCOL/ TIMEOUT: Preprocedure verification is complete patient verified and consents confirmed, procedure sites are identified and marked, timeout was called before the start of the procedure. INDICATIONS FOR PROCEDURE: 69 y.o. male with: metastatic renal cell carcinoma, clear type since 2010. Underwent left radical nephrectomy with negative lymph nodes on 10/29/2010, s/p ipilumumab/nivolamab, s/p pembrolizumab/axitinib, and currently on axitinib 5mg once daily. He was found to have upper back pain end of October 2024 and work-up showed a T2 pathologic fracture SINS 13 (unstable) and Bilsky 1c. He is a non-surgical candidate. We are planning 30 Gy in 5 fractions given the Bilsky grade and Dr. Fiore is in agreement. For the stereotactic radiation therapy we will be utilizing IMRT and IGRT for better dose conformity and decreased dose to the normal structures. The risks, benefits andside effects of external beam were discussed in extensive detail and the patient s questions were answered. Side effects discussed included but not limited to fatigue, damage to hear and lungs, decreased blood counts, nausea, diarrhea, fracture risk due to treatment with RT, mucositis, dermatitis, pain, xerostomia, dysgeusia, hair loss, damage to blood vessels and nerves, spinal cord damage, brainstem damage, and weight loss. We look forward to seeing the patient at the time of CT simulation. Thank you for allowing us to participate in the care of your patient. If I may answer any questions, please do not hesitate to contact me at any time. We are treating to improve local tumor control. PROCEDURE DETAILS: CT for treatment planning was previously obtained. The images were transferred to the treatment planning computer and the images were fused with recent MRI. The target and adjacentnormal structures were outlined. Multiple plans were run and the dose plan giving the maximum dose to the target and minimum dose to the normal tissue was chosen. quality assurance qa lab technician checks were performed on the plan and treatments were initiated today. The patient's head was immobilized utilizing the encompass frameless mask. Cone beam was taken and minor shifts were made after approved by me for each of the clinical targets. The patient received treatment with 6 MV photons delivering a doses ofas described above. After the treatment was completed, the mask was removed from the patient. There were no vitals filed for this visit. Neurologic exam: AOx3, no new focal neurologic signs KPS: Performance status: Karnofsky scale 80 (ECOG grade 1) Performs normal activity with effort; some signs & symptoms of disease CONDITION: The patient tolerated the procedure well and was in stable condition. COMPLICATIONS: None Acute toxicity: (during radiation) Radiation Dermatitis: None=0 Hoarseness: None Esophageal Injury: Grade 0 = None Radiation Pneumonitis: Grade 0 None Cough: no Dyspnea: Grade 0 none Diarrhea: Grade 0 none Nausea: Grade 0 = None Dysuria: no Fatigue: Grade 0: No Fatigue Pain Flare: no Myelopathy: None PLAN: Tolerated the procedure well without complications. LINAC-based Stereotactic Radiotherapy, when complete, the patient will have relevant imaging and follow-up visits at an appropriate time point as clinically indicated. He is to continue current dose of dexamethasone during RT and we can taper as per instructions after treatment. Nursing team has conveyed the taper instructions. Andrea Farris MD, PhD Department of Radiation Oncology [facility]06-04-2025 Procedure note* Andrea Farris MD, PhD - 12/27/2024 8:50 AM EDTAssociated Order(s): GENERAL PROCEDURE Linac-based Stereotactic Radiosurgery (SRS) Note: 12/27/2024 RADIATION ONCOLOGIST: Andrea Farris MD, PhD NEUROSURGEON: Jeremy Vazquez MD Primary disease: Renal Histopathology: Renal cell carcinoma PROCEDURE PERFORMED: SRS MACHINE: [employer] STX CLINICAL TARGETS: 1. Lesion begins at T2 ends at T2. Lesion treated to 30 Gy in 5 fraction/s using VMAT arcs with 6MVand/or 10MV photons FFF Fraction 3 of 5 CONSENT: Informed consent was obtained prior to the procedure. Procedure risks, benefits, alternatives and expected outcomes were discussed with the patient. Consent(s) were scanned into the electronic medical record. UNIVERSAL PROTOCOL/ TIMEOUT: Preprocedure verification is complete patient verified and consents confirmed, procedure sites are identified and marked, timeout was called before the start of the procedure. INDICATIONS FOR PROCEDURE: 69 y.o. male with: metastatic renal cell carcinoma, clear type since 2010. Underwent left radical nephrectomy with negative lymph nodes on 10/29/2010, s/p ipilumumab/nivolamab, s/p pembrolizumab/axitinib, and currently on axitinib 5mg once daily. He was found to have upper back pain end of October 2024 and work-up showed a T2 pathologic fracture SINS 13 (unstable) and Bilsky 1c. He is a non-surgical candidate. We are planning 30 Gy in 5 fractions given the Bilsky grade and Dr. Fiore is in agreement. For the stereotactic radiation therapy we will be utilizing IMRT and IGRT for better dose conformity and decreased dose to the normal structures. The risks, benefits andside effects of external beam were discussed in extensive detail and the patient s questions were answered. Side effects discussed included but not limited to fatigue, damage to hear and lungs, decreased blood counts, nausea, diarrhea, fracture risk due to treatment with RT, mucositis, dermatitis, pain, xerostomia, dysgeusia, hair loss, damage to blood vessels and nerves, spinal cord damage, brainstem damage, and weight loss. We look forward to seeing the patient at the time of CT simulation. Thank you for allowing us to participate in the care of your patient. If I may answer any questions, please do not hesitate to contact me at any time. We are treating to improve local tumor control. PROCEDURE DETAILS: CT for treatment planning was previously obtained. The images were transferred to the treatment planning computer and the images were fused with recent MRI. The target and adjacentnormal structures were outlined. Multiple plans were run and the dose plan giving the maximum dose to the target and minimum dose to the normal tissue was chosen. quality assurance qa lab technician checks were performed on the plan and treatments were initiated today. The patient's head was immobilized utilizing the encompass frameless mask. Cone beam was taken and minor shifts were made after approved by me for each of the clinical targets. The patient received treatment with 6 MV photons delivering a doses ofas described above. After the treatment was completed, the mask was removed from the patient. There were no vitals filed for this visit. Neurologic exam: AOx3, no new focal neurologic signs KPS: Performance status: Karnofsky scale 80 (ECOG grade 1) Performs normal activity with effort; some signs & symptoms of disease CONDITION: The patient tolerated the procedure well and was in stable condition. COMPLICATIONS: None Acute toxicity: (during radiation) Radiation Dermatitis: None=0 Hoarseness: None Esophageal Injury: Grade 0 = None Radiation Pneumonitis: Grade 0 None Cough: no Dyspnea: Grade 0 none Diarrhea: Grade 0 none Nausea: Grade 0 = None Dysuria: no Fatigue: Grade 0: No Fatigue Pain Flare: no Myelopathy: None PLAN: Tolerated the procedure well without complications. LINAC-based Stereotactic Radiotherapy, when complete, the patient will have relevant imaging and follow-up visits at an appropriate time point as clinically indicated. He is to continue current dose of dexamethasone during RT and we can taper as per instructions after treatment. Nursing team has conveyed the taper instructions. Andrea Farris MD, PhD Department of Radiation Oncology documented in this [facility]06-03-2025 Procedure note* Jessy Martins MD, DPhil - 12/26/2024 9:40 AM EDTAssociated Order(s): GENERAL PROCEDURE Linac-based Stereotactic Radiosurgery (SRS) Note: 12/26/2024 RADIATION ONCOLOGIST: Jessy Martins MD, DPhil (covering for Andrea Farris MD, PhD) NEUROSURGEON: Jeremy Vazquez MD Primary disease: Renal Histopathology: Renal cell carcinoma PROCEDURE PERFORMED: SRS MACHINE: [employer] STX CLINICAL TARGETS: 1. Lesion begins at T2 ends at T2. Lesion treated to 30 Gy in 5 fraction/s using VMAT arcs with 6MVand/or 10MV photons FFF Fraction 2 of 5 CONSENT: Informed consent was obtained prior to the procedure. Procedure risks, benefits, alternatives and expected outcomes were discussed with the patient. Consent(s) were scanned into the electronic medical record. UNIVERSAL PROTOCOL/ TIMEOUT: Preprocedure verification is complete patient verified and consents confirmed, procedure sites are identified and marked, timeout was called before the start of the procedure. INDICATIONS FOR PROCEDURE: 69 y.o. male with: metastatic renal cell carcinoma, clear type since 2010. Underwent left radical nephrectomy with negative lymph nodes on 10/29/2010, s/p ipilumumab/nivolamab, s/p pembrolizumab/axitinib, and currently on axitinib 5mg once daily. He was found to have upper back pain end of October 2024 and work-up showed a T2 pathologic fracture SINS 13 (unstable) and Bilsky 1c. He is a non-surgical candidate. We are planning 30 Gy in 5 fractions given the Bilsky grade and Dr. Fiore is in agreement. For the stereotactic radiation therapy we will be utilizing IMRT and IGRT for better dose conformity and decreased dose to the normal structures. The risks, benefits andside effects of external beam were discussed in extensive detail and the patient s questions were answered. Side effects discussed included but not limited to fatigue, damage to hear and lungs, decreased blood counts, nausea, diarrhea, fracture risk due to treatment with RT, mucositis, dermatitis, pain, xerostomia, dysgeusia, hair loss, damage to blood vessels and nerves, spinal cord damage, brainstem damage, and weight loss. We look forward to seeing the patient at the time of CT simulation. Thank you for allowing us to participate in the care of your patient. If I may answer any questions, please do not hesitate to contact me at any time. We are treating to improve local tumor control. PROCEDURE DETAILS: CT for treatment planning was previously obtained. The images were transferred to the treatment planning computer and the images were fused with recent MRI. The target and adjacentnormal structures were outlined. Multiple plans were run and the dose plan giving the maximum dose to the target and minimum dose to the normal tissue was chosen. quality assurance qa lab technician checks were performed on the plan and treatments were initiated today. The patient's head was immobilized utilizing the encompass frameless mask. Cone beam was taken and minor shifts were made after approved by me for each of the clinical targets. The patient received treatment with 6 MV photons delivering a doses ofas described above. After the treatment was completed, the mask was removed from the patient. There were no vitals filed for this visit. Neurologic exam: AOx3, no new focal neurologic signs KPS: Performance status: Karnofsky scale 80 (ECOG grade 1) Performs normal activity with effort; some signs & symptoms of disease CONDITION: The patient tolerated the procedure well and was in stable condition. COMPLICATIONS: None Acute toxicity: (during radiation) Radiation Dermatitis: None=0 Hoarseness: None Esophageal Injury: Grade 0 = None Radiation Pneumonitis: Grade 0 None Cough: no Dyspnea: Grade 0 none Diarrhea: Grade 0 none Nausea: Grade 0 = None Dysuria: no Fatigue: Grade 0: No Fatigue Pain Flare: no Myelopathy: None PLAN: Tolerated the procedure well without complications. LINAC-based Stereotactic Radiotherapy, when complete, the patient will have relevant imaging and follow-up visits at an appropriate time point as clinically indicated. He is to continue current dose of dexamethasone during RT and we can taper as per instructions after treatment. Nursing team has conveyed the taper instructions. Jessy Martins MD, DPhil Department of Radiation Oncology [facility] Work Phone: [phone]) 386-104106-03-2025 Procedure note* Jessy Martins MD, DPhil - 12/26/2024 9:40 AM EDTAssociated Order(s): GENERAL PROCEDURE Linac-based Stereotactic Radiosurgery (SRS) Note: 12/26/2024 RADIATION ONCOLOGIST: Jessy Martins MD, DPhil (covering for Andrea Farris MD, PhD) NEUROSURGEON: Jeremy Vazquez MD Primary disease: Renal Histopathology: Renal cell carcinoma PROCEDURE PERFORMED: SRS MACHINE: [employer] STX CLINICAL TARGETS: 1. Lesion begins at T2 ends at T2. Lesion treated to 30 Gy in 5 fraction/s using VMAT arcs with 6MVand/or 10MV photons FFF Fraction 2 of 5 CONSENT: Informed consent was obtained prior to the procedure. Procedure risks, benefits, alternatives and expected outcomes were discussed with the patient. Consent(s) were scanned into the electronic medical record. UNIVERSAL PROTOCOL/ TIMEOUT: Preprocedure verification is complete patient verified and consents confirmed, procedure sites are identified and marked, timeout was called before the start of the procedure. INDICATIONS FOR PROCEDURE: 69 y.o. male with: metastatic renal cell carcinoma, clear type since 2010. Underwent left radical nephrectomy with negative lymph nodes on 10/29/2010, s/p ipilumumab/nivolamab, s/p pembrolizumab/axitinib, and currently on axitinib 5mg once daily. He was found to have upper back pain end of October 2024 and work-up showed a T2 pathologic fracture SINS 13 (unstable) and Bilsky 1c. He is a non-surgical candidate. We are planning 30 Gy in 5 fractions given the Bilsky grade and Dr. Fiore is in agreement. For the stereotactic radiation therapy we will be utilizing IMRT and IGRT for better dose conformity and decreased dose to the normal structures. The risks, benefits andside effects of external beam were discussed in extensive detail and the patient s questions were answered. Side effects discussed included but not limited to fatigue, damage to hear and lungs, decreased blood counts, nausea, diarrhea, fracture risk due to treatment with RT, mucositis, dermatitis, pain, xerostomia, dysgeusia, hair loss, damage to blood vessels and nerves, spinal cord damage, brainstem damage, and weight loss. We look forward to seeing the patient at the time of CT simulation. Thank you for allowing us to participate in the care of your patient. If I may answer any questions, please do not hesitate to contact me at any time. We are treating to improve local tumor control. PROCEDURE DETAILS: CT for treatment planning was previously obtained. The images were transferred to the treatment planning computer and the images were fused with recent MRI. The target and adjacentnormal structures were outlined. Multiple plans were run and the dose plan giving the maximum dose to the target and minimum dose to the normal tissue was chosen. quality assurance qa lab technician checks were performed on the plan and treatments were initiated today. The patient's head was immobilized utilizing the encompass frameless mask. Cone beam was taken and minor shifts were made after approved by me for each of the clinical targets. The patient received treatment with 6 MV photons delivering a doses ofas described above. After the treatment was completed, the mask was removed from the patient. There were no vitals filed for this visit. Neurologic exam: AOx3, no new focal neurologic signs KPS: Performance status: Karnofsky scale 80 (ECOG grade 1) Performs normal activity with effort; some signs & symptoms of disease CONDITION: The patient tolerated the procedure well and was in stable condition. COMPLICATIONS: None Acute toxicity: (during radiation) Radiation Dermatitis: None=0 Hoarseness: None Esophageal Injury: Grade 0 = None Radiation Pneumonitis: Grade 0 None Cough: no Dyspnea: Grade 0 none Diarrhea: Grade 0 none Nausea: Grade 0 = None Dysuria: no Fatigue: Grade 0: No Fatigue Pain Flare: no Myelopathy: None PLAN: Tolerated the procedure well without complications. LINAC-based Stereotactic Radiotherapy, when complete, the patient will have relevant imaging and follow-up visits at an appropriate time point as clinically indicated. He is to continue current dose of dexamethasone during RT and we can taper as per instructions after treatment. Nursing team has conveyed the taper instructions. Jessy Martins MD, DPhil Department of Radiation Oncology [facility] History of Present illness Narrative* Carmen Tolbert RN - 12/25/2024 8:20 AM EDT Patient will have dialysis today. Patient verified he held his Axitnib as ordered . Paged regarding dexaxamethasone dose.Verified dexamethasone 4 mg tablet to be taken daily during radiation treatment . After radiation decrease dexamethasone to every other day x 1 week .. Called and informedfamily of dexamethasone schedule. Reviewed to call rad onc if any questions or concern [facility] Procedure note* Andrea Farris MD, PhD - 12/25/2024 7:40 AM EDTAssociated Order(s): GENERAL PROCEDURE Linac-based Stereotactic Radiosurgery (SRS) Note: 12/25/2024 RADIATION ONCOLOGIST: Andrea Farris MD, PhD NEUROSURGEON: Jeremy Vazquez MD Primary disease: Renal Histopathology: Renal cell carcinoma PROCEDURE PERFORMED: SRS MACHINE: [employer] STX CLINICAL TARGETS: 1. Lesion begins at T2 ends at T2. Lesion treated to 30 Gy in 5 fraction/s using VMAT arcs with 6MVand/or 10MV photons FFF Fraction 1 of 5 2. Lesion begins at N/A ends at N/A. 3. Lesion begins at N/A ends at N/A. 4. Lesion begins at N/A ends at N/A. CONSENT: Informed consent was obtained prior to the procedure. Procedure risks, benefits, alternatives and expected outcomes were discussed with the patient. Consent(s) were scanned into the electronic medical record. UNIVERSAL PROTOCOL/ TIMEOUT: Preprocedure verification is complete patient verified and consents confirmed, procedure sites are identified and marked, timeout was called before the start of the procedure. INDICATIONS FOR PROCEDURE: 69 y.o. male with: metastatic renal cell carcinoma, clear type since 2010. Underwent left radical nephrectomy with negative lymph nodes on 10/29/2010, s/p ipilumumab/nivolamab, s/p pembrolizumab/axitinib, and currently on axitinib 5mg once daily. He was found to have upper back pain end of October 2024 and work-up showed a T2 pathologic fracture SINS 13 (unstable) and Bilsky 1c. He is a non-surgical candidate. We are planning 30 Gy in 5 fractions given the Bilsky grade and Dr. Fiore is in agreement. For the stereotactic radiation therapy we will be utilizing IMRT and IGRT for better dose conformity and decreased dose to the normal structures. The risks, benefits andside effects of external beam were discussed in extensive detail and the patient s questions were answered. Side effects discussed included but not limited to fatigue, damage to hear and lungs, decreased blood counts, nausea, diarrhea, fracture risk due to treatment with RT, mucositis, dermatitis, pain, xerostomia, dysgeusia, hair loss, damage to blood vessels and nerves, spinal cord damage, brainstem damage, and weight loss. We look forward to seeing the patient at the time of CT simulation. Thank you for allowing us to participate in the care of your patient. If I may answer any questions, please do not hesitate to contact me at any time. We are treating to improve local tumor control. PROCEDURE DETAILS: CT for treatment planning was previously obtained. The images were transferred to the treatment planning computer and the images were fused with recent MRI. The target and adjacentnormal structures were outlined. Multiple plans were run and the dose plan giving the maximum dose to the target and minimum dose to the normal tissue was chosen. quality assurance qa lab technician checks were performed on the plan and treatments were initiated today. The patient's head was immobilized utilizing the encompass frameless mask. Cone beam was taken and minor shifts were made after approved by me for each of the clinical targets. The patient received treatment with 6 MV photons delivering a doses ofas described above. After the treatment was completed, the mask was removed from the patient. There were no vitals filed for this visit. Neurologic exam: AOx3, no new focal neurologic signs KPS: Performance status: Karnofsky scale 80 (ECOG grade 1) Performs normal activity with effort; some signs & symptoms of disease CONDITION: The patient tolerated the procedure well and was in stable condition. COMPLICATIONS: None Acute toxicity: (during radiation) Radiation Dermatitis: None=0 Hoarseness: None Esophageal Injury: Grade 0 = None Radiation Pneumonitis: Grade 0 None Cough: no Dyspnea: Grade 0 none Diarrhea: Grade 0 none Nausea: Grade 0 = None Dysuria: no Fatigue: Grade 0: No Fatigue Pain Flare: no Myelopathy: None PLAN: Tolerated the procedure well without complications. LINAC-based Stereotactic Radiotherapy, when complete, the patient will have relevant imaging and follow-up visits at an appropriate time point as clinically indicated. He is to continue current dose of dexamethasone during RT and we can taper as per instructions after treatment. Nursing team has conveyed the taper instructions. Andrea Farris MD, PhD Department of Radiation [facility]06-02-2025 Procedure note* Andrea Farris MD, PhD - 12/25/2024 7:40 AM EDTAssociated Order(s): GENERAL PROCEDURE Linac-based Stereotactic Radiosurgery (SRS) Note: 12/25/2024 RADIATION ONCOLOGIST: Andrea Farris MD, PhD NEUROSURGEON: Jeremy Vazquez MD Primary disease: Renal Histopathology: Renal cell carcinoma PROCEDURE PERFORMED: SRS MACHINE: [employer] STX CLINICAL TARGETS: 1. Lesion begins at T2 ends at T2. Lesion treated to 30 Gy in 5 fraction/s using VMAT arcs with 6MVand/or 10MV photons FFF Fraction 1 of 5 2. Lesion begins at N/A ends at N/A. 3. Lesion begins at N/A ends at N/A. 4. Lesion begins at N/A ends at N/A. CONSENT: Informed consent was obtained prior to the procedure. Procedure risks, benefits, alternatives and expected outcomes were discussed with the patient. Consent(s) were scanned into the electronic medical record. UNIVERSAL PROTOCOL/ TIMEOUT: Preprocedure verification is complete patient verified and consents confirmed, procedure sites are identified and marked, timeout was called before the start of the procedure. INDICATIONS FOR PROCEDURE: 69 y.o. male with: metastatic renal cell carcinoma, clear type since 2010. Underwent left radical nephrectomy with negative lymph nodes on 10/29/2010, s/p ipilumumab/nivolamab, s/p pembrolizumab/axitinib, and currently on axitinib 5mg once daily. He was found to have upper back pain end of October 2024 and work-up showed a T2 pathologic fracture SINS 13 (unstable) and Bilsky 1c. He is a non-surgical candidate. We are planning 30 Gy in 5 fractions given the Bilsky grade and Dr. Fiore is in agreement. For the stereotactic radiation therapy we will be utilizing IMRT and IGRT for better dose conformity and decreased dose to the normal structures. The risks, benefits andside effects of external beam were discussed in extensive detail and the patient s questions were answered. Side effects discussed included but not limited to fatigue, damage to hear and lungs, decreased blood counts, nausea, diarrhea, fracture risk due to treatment with RT, mucositis, dermatitis, pain, xerostomia, dysgeusia, hair loss, damage to blood vessels and nerves, spinal cord damage, brainstem damage, and weight loss. We look forward to seeing the patient at the time of CT simulation. Thank you for allowing us to participate in the care of your patient. If I may answer any questions, please do not hesitate to contact me at any time. We are treating to improve local tumor control. PROCEDURE DETAILS: CT for treatment planning was previously obtained. The images were transferred to the treatment planning computer and the images were fused with recent MRI. The target and adjacentnormal structures were outlined. Multiple plans were run and the dose plan giving the maximum dose to the target and minimum dose to the normal tissue was chosen. quality assurance qa lab technician checks were performed on the plan and treatments were initiated today. The patient's head was immobilized utilizing the encompass frameless mask. Cone beam was taken and minor shifts were made after approved by me for each of the clinical targets. The patient received treatment with 6 MV photons delivering a doses ofas described above. After the treatment was completed, the mask was removed from the patient. There were no vitals filed for this visit. Neurologic exam: AOx3, no new focal neurologic signs KPS: Performance status: Karnofsky scale 80 (ECOG grade 1) Performs normal activity with effort; some signs & symptoms of disease CONDITION: The patient tolerated the procedure well and was in stable condition. COMPLICATIONS: None Acute toxicity: (during radiation) Radiation Dermatitis: None=0 Hoarseness: None Esophageal Injury: Grade 0 = None Radiation Pneumonitis: Grade 0 None Cough: no Dyspnea: Grade 0 none Diarrhea: Grade 0 none Nausea: Grade 0 = None Dysuria: no Fatigue: Grade 0: No Fatigue Pain Flare: no Myelopathy: None PLAN: Tolerated the procedure well without complications. LINAC-based Stereotactic Radiotherapy, when complete, the patient will have relevant imaging and follow-up visits at an appropriate time point as clinically indicated. He is to continue current dose of dexamethasone during RT and we can taper as per instructions after treatment. Nursing team has conveyed the taper instructions. Andrea Farris MD, PhD Department of Radiation Oncology [facility] History of Present illness Narrative* Cat Braun RN - 12/05/2024 10:00 AM EDT Krissy Wright was seen 12/05/2024 in Radiation Oncology for a CT Simulation. Krissy Wright will start radiation treatment to his Spine on 12/25/2024. [facility] History of Present illness Narrative* Nicolas Rose MD - 11/30/2024 1:00 PM EDT Images from the original note were not included. RADIATION ONCOLOGY INITIAL CONSULT NOTE Date: 11/30/2024 Dear Tiarra Brown MD, Diagnosis: Krissy Wright is a 68 year old male diagnosed with metastatic renal cell carcinoma, clear type since 2010. Underwent left radical nephrectomy with negative lymph nodes on 10/29/2010, s/p ipilumumab/nivolamab, s/p pembrolizumab/axitinib, and currently on axitinib 5mg once daily. He was found to have upper back pain end of October 2024 and work-up showed a T2 pathologic fracture SINS 13 (unstable) and Bilsky 1c. He is a non-surgical candidate. It was a pleasure to evaluate your patient an outpatient consultation today. HISTORY OF PRESENT ILLNESS: As you know, Krissy Wright is a 68 y.o. male who presents to the [facility] for evaluation of T2 spine lesion. Primary disease: Renal Disease burden in each vertebra:VB, Right Pedicle, and Left Pedicle Histopathology: Renal cell carcinoma Systemic disease status: Progressive disease Current systemic therapy: Targeted therapy PreOP Embolization: no SURGERY: yes SURGERY DATE: n/a Surgery subgroup: Others Multiple Primaries: N/A Referring Physician: Tiarra Fiore MD HPI: Krissy Wright is a 68 y.o. male who we are seeing in consultation for evaluation of his T2 spine lesion. He was initially diagnosed with metastatic renal cell carcinoma, clear type in 2010, s/p left radical nephrectomy with negative lymph nodes on 10/29/2010 at [facility]. s/p Nivo/Ipi but discontinued after 4 doses s/p Keytruda and Axitinib in 2019, stopped in 2020 due to side effects and COVID. Restarted Axitinib in 04/2024 due to progression seen on restaging CTs. Stopped Axitinib in 06/2024. Resumed at a lower dose of 5 mg once daily in July 2024. Patient presented to local ER on 11/20/2024 with upper back/chest pain. CT PE showed T2 lesion withpedicle involvement. MRI thoracic spine with and without contrast completed on 11/20/2024 showed [id number] fracture with epidural tumor. SINS unstable. Theoy 1c. Patient was just seen by Dr. Tiarra Fiore last week. They requested new imaging. Patient was present in clinic with his son. He reports pain on his upper back especially with movement and when lying down flat. He does report that he has generalized fatigue. He also notes intermittent peripheral neuropathy. He has dialysis 3 times a week in [place]. MRI SPINE PERFUSION THORACIC WITH AND WITHOUT CONTRAST, 11/23/2024 1. Findings concerning for osseous metastasis within the T2 vertebral body associated with a pathologic compression fracture with 50 percent height loss and minimal retropulsion. Suspect ventral and right lateral epidural tumor extension associated with mild to moderate spinal canal stenosis. No significant cord compression. 2. Multiple additional subcentimeter STIR hyperintense, enhancing lesions noted within the thoracicspine, concerning for additional scattered foci of osseous metastatic disease. CT SPINE CERVICAL THORACIC LUMBAR WITHOUT CONTRAST, 11/23/2024 1. Lytic lesion within the T2 vertebral body associated with approximately 50 percent vertebral body height loss. Minimal retropulsion. Some extraosseous tumor extension of the ventral epidural spacewith associated spinal canal stenosis, better appreciated on same day MRI. 2. A few punctate lucencies are noted elsewhere within the cervical, thoracic, lumbar spine, which are indeterminate but may represent additional tiny foci of osseous metastatic disease. 3. No severe spinal canal stenosis. 4. Multiple pulmonary nodules and multiple cystic and, possibly solid, lesions within the right kidney. Please refer to recent outside dedicated chest and abdomen CTs. SPINE LOCATION: . Site #1: Lesion begins at T2, ends at T2. Site #2: Lesion begins at N/A, ends at N/A. Site #3: Lesion begins at N/A, ends at N/A. Site #4: Lesion begins at N/A, ends at N/A. PAIN SCORE: 5/10 Prior Radiation Therapy: No Collagen Vascular Diseases: No Pacemaker: No SINS & BILSKY SINS SCORE: Location: Junctional (C1-2, C7-T2, T11-L1, L5-S1)=3 Mechanical pain: Mechanical pain=3 Bone lesion: Lytic lesion=2 Radiographic spinal alignment: Normal=0 Vertebral body collapse: >50% collapse=3 Posterolateral involvement: Bilateral=3 TOTAL SINS SCORE: 13 (enter number) BILSKY GRADE: Site 1 Grade 1c: deformation of the thecal sac, with spinal cord abutment SINS SCORE: Site 2; N/A BILSKY GRADE: Site 2 N/A SINS SCORE: Site 3; N/A BILSKY GRADE: Site 3 N/A SINS SCORE: Site 4; N/A BILSKY GRADE: Site 4 N/A PAST MEDICAL HISTORY: Past Medical History: Diagnosis Date Arrhythmia Atrial fibrillation CAD (coronary artery disease) Cancer Believed to be metastatic from renal cancer. Congestive heart failure Diabetes mellitus Dialysis patient DVT (deep venous thrombosis) Essential hypertension, benign GERD (gastroesophageal reflux disease) History of chemotherapy Pulmonary embolism Renal disease PAST SURGICAL HISTORY: Past Surgical History: Procedure Laterality Date HIP REPLACEMENT Right NEPHRECTOMY REMOVAL CATARACT (PEM) Bilateral MEDICATIONS: Current Outpatient Medications Medication Sig Dispense Refill Allopurinol 100 MG tablet Aspirin [address] tablet Take 1 tablet by mouth daily. B Uchrzri-D-Wqyne Acid (Theresa-Fabian) tablet Take 1 tablet by mouth daily. Cartia XT 120 MG Cap SR 24HR capsule XL Take 1 mg by mouth. dexAMETHasone 4 MG tablet Take 1 tablet by mouth every 6 hours. FeroSul 325 (65 Fe) MG tablet Take 1 tablet by mouth. Take with food. Finasteride 5 MG tablet Take 1 tablet by mouth daily. glipiZIDE 2.5 MG tablet Take 1 tablet by mouth. hydroCODone-acetaminophen 5-325 MG tablet take 1 tablet by mouth every 6 hours for 3 days Inlyta 5 MG tablet Take 1 tablet by mouth Daily (with dinner). Levothyroxine 125 MCG tablet Take 1 tablet by mouth Daily (with dinner). Metoclopramide 5 MG tablet Take 1 tablet by mouth every 6 hours. Metoprolol 100 MG tab regular release Take 1 tablet by mouth. Pantoprazole [address] tablet DR Take 1 tablet by mouth daily. No current facility-administered medications for this visit. ALLERGIES: Penicillins SOCIAL HISTORY: Social History Socioeconomic History Marital status: Single Spouse name: Not on file Number of children: Not on file Years of education: Not on file Highest education level: Not on file Occupational History Not on file Tobacco Use Smoking status: Never Smokeless tobacco: Never Substance and Sexual Activity Alcohol use: Not Currently Drug use: Not Currently Sexual activity: Not on file Other Topics Concern Not on file Social History Narrative Not on file Social Drivers of Health Financial Resource Strain: Not on file Food Insecurity: Not on file Transportation Needs: Not on file Physical Activity: Not on file Stress: Not on file Social Connections: Not on file Personal Safety: Not on file Housing Stability: Not on file FAMILY HISTORY: Family History Problem Relation Age of Onset Diabetes Mother Stroke Mother Heart Disease - Other Mother Heart Disease - Other Father REVIEW OF SYSTEMS: A 14 point review of systems was completed and was negative except for what is noted by the nurse and in HPI. PHYSICAL EXAM: Smoking Status Never CONSTITUTIONAL: Well developed, well nourished male, who looks their stated age of 68 y.o.. No acute distress noted. HEENT: Head: Normocephalic and atraumatic. EYES: Pupils are equal, round, and reactive to light and accommodation. Extraocular movements are intact. Sclerae are anicteric. NECK: Supple, non-tender, with no lymphadenopathy. No jugular venous distension, carotid bruits, ortracheal deviation. CARDIAC: Regular rate and rhythm. Normal S1, S2. No murmurs, rubs or gallops. PULMONARY/CHEST: Lungs are clear to auscultation and percussion bilaterally. No wheezes, rhonchi or rales noted. ABDOMINAL: Abdomen soft, non-tender, non-distended. No organomegaly. Normoactive bowel sounds in all four quadrants. No guarding, rebound. BACK: Non-tender to percussion, no CVA tenderness. Axial skeleton non-tender to percussion. EXTREMITIES: Full range of motion in all four extremities, with normal strength equally and symmetrically. No cyanosis or clubbing or edema. SKIN: Skin is warm and dry. He is not diaphoretic. NEUROLOGIC EXAM: Alert and oriented x 3. Cranial nerves II through XII are intact grossly. No focalneurologic deficit. Speech is fluent. There is no upper or lower extremitymotor deficit. Muscle strength is 5/5 in all muscle groups. PSYCHIATRIC: Appropriate mood and affect for his clinical situation. KPS: Performance status: Karnofsky scale 50 (ECOG grade 2) Requires considerable and frequent medical care CLINICAL DATA: RADIOGRAPHIC FINDINGS: See HPI PATHOLOGIC FINDINGS: Pain Quality: mechanical & biologic ALL available labs and pathology have been reviewed. ASSESSMENT AND PLAN: Krissy Wright is a 68 y.o. male diagnosed with metastatic renal cell carcinoma, clear type since 2010. Underwent left radical nephrectomy with negative lymph nodes on 10/29/2010, s/p ipilumumab/nivolamab, s/p pembrolizumab/axitinib, and currently on axitinib 5mg once daily. He was found to have upper back pain end of October 2024 and work-up showed a T2 pathologic fracture SINS 13 (unstable) and Bilsky 1c. He is a non-surgical candidate. We discussed treatment options, which include conventional radiation and radiosurgery. We recommendradiosurgery due to the improvement in pain and durable local control noted in the phase III CCTG SC.24/TROG 17.06 clinical trial, which showed a significant improvement in pain CR rates from 35% with SBRT at 14% with SPACE AND MISSILE DEFENSE OPERATIONS (p<0.001). Radiation therapy is recommended to improve local control and increase survival. The rationale for radiation therapy, its potential risks, benefits, short and halfway side effects, complications, as well as alternative forms of therapy were discussed in detail with the patient at the time of this consultation. All questions were addressed. No guarantees of safety or efficacy were made. The patient consents to the recommended course of radiation therapy. he will return to our department on for CT simulation, with radiation therapy to start 3 weeks thereafter. Informed consent was signed at today's visit. We discussed that we would offer radiation therapy 30Gy in 5 fractions to T2 due to the proximity to the cord of the lesion. He does have dialysis MWF in [place], so he would prefer to have his treatments done in the morning. He is currently taking axitinib daily, and we advised him to stop taking the axitinib one day prior to radiation and resume 2 days after the radiation treatment. Plan: 1) For CT simulation on 12/05/24 for SBRT 30Gy in 5 fractions to his T2 spine 2) To hold axitinib during radiation treatment 3) To take dexamethasone 4mg once daily during radiation treatment then every other day for the week after the radiation treatment 4) We advised the red flag symptoms of cord compression and if present, he would need to go to the emergency department Thank you for allowing me to participate in the management and care of your patient. If I may answer any questions in the interim, please do not hesitiate to contact me at any time. All the patient's questions were answered to verbalized satisfaction. We instructed the patient to call with any questions or concerns in the interim. The patient was seen and the plan of care was developed with Dr. Andrea Farris, attending physician. Nicolas Rose MD Radiation Oncology Fellow * Rocio Patel RN - 11/30/2024 1:00 PM EDT Images from the original note were not included. Nurse Note: Review of Systems Constitutional: Positive for appetite change and fatigue. Appetite getting better HENT: Negative for tinnitus and trouble swallowing. Eyes: Negative for visual disturbance. Respiratory: Negative for shortness of breath. Cardiovascular: Negative for chest pain and leg swelling. Sometimes has trouble discerning if back pain wraps around to chest per patient Gastrointestinal: Positive for diarrhea. Negative for constipation, nausea and vomiting. Occasionally after dialysis Genitourinary: Negative for difficulty urinating. Musculoskeletal: Positive for back pain. Negative for neck pain. Across top of back, sometimes feels as though pain wraps around to chest. Worse when lying flat Skin: Negative for rash. Neurological: Positive for weakness and numbness. Negative for dizziness, tremors, seizures, syncope, facial asymmetry, speech difficulty, light- headedness and headaches. Intermittent fingertips bilaterally. Generalized weakness Psychiatric/Behavioral: Negative for confusion and decreased concentration. The patient is not nervous/anxious. Nursing Assessment: Physical Exam * Anrdea Farris MD, PhD - 11/30/2024 1:00 PM EDT Attending attestation: I saw and independently examined this patient. I discussed my findings and the therapeutic plan with the fellow. I agree with the fellow's history, physical examination, and medical decisions as outlined. I have made changes to the document as appropriate. In brief, Krissy Wright is a 68 y.o. male diagnosed with metastatic renal cell carcinoma, clear type since 2010. Underwent left radical nephrectomy with negative lymph nodes on 10/29/2010, s/p ipilumumab/nivolamab, s/p pembrolizumab/axitinib, and currently on axitinib 5mg once daily. He was found to have upper back pain end of October2024 and work-up showed a T2 pathologic fracture SINS 13 (unstable) and Bilsky 1c. He is a non-surgical candidate. We are planning 30 Gy in 5 fractions given the Bilsky grade and Dr. Fiore is in agreement. For the stereotactic radiation therapy we will be utilizing IMRT and IGRT for better dose conformity and decreased dose to the normal structures. The risks, benefits and side effects of external beam were discussed in extensive detail and the patient s questions were answered. Side effects discussed included but not limited to fatigue, damage to hear and lungs, decreased blood counts, nausea, diarrhea, fracture risk due to treatment with RT, mucositis, dermatitis, pain, xerostomia, dysgeusia, hair loss, damage to blood vessels and nerves, spinal cord damage, brainstem damage, and weight loss. We look forward to seeing the patient at the time of CT simulation. Thank you for allowing usto participate in the care of your patient. If I may answer any questions, please do not hesitate to contact me at any time. Andrea Farris M.D., Ph.D. Department of Radiation Oncology documented [facility] Instructions* Patient Instructions* Nicolas Rose MD - 11/30/2024 1:00 PM EDT Please hold axitinib one day prior to the radiation therapy treatment and resume 2 days after the radiation treatment. Please take the dexamethasone 4mg once daily on the first day of radiation treatment. Then every other day for the following week. [facility] History of Present illness Narrative* Rocio Patel RN - 11/30/2024 12:00 PM EDT Nurse Note: Review of Systems Constitutional: Positive for appetite change and fatigue. Appetite getting better HENT: Negative for tinnitus and trouble swallowing. Eyes: Negative for visual disturbance. Respiratory: Negative for shortness of breath. Cardiovascular: Negative for chest pain and leg swelling. Sometimes has trouble discerning if back pain wraps around to chest per patient Gastrointestinal: Positive for diarrhea. Negative for constipation, nausea and vomiting. Occasionally after dialysis Genitourinary: Negative for difficulty urinating. Musculoskeletal: Positive for back pain. Negative for neck pain. Across top of back, sometimes feels as though pain wraps around to chest. Worse when lying flat Skin: Negative for rash. Neurological: Positive for weakness and numbness. Negative for dizziness, tremors, seizures, syncope, facial asymmetry, speech difficulty, light- headedness and headaches. Intermittent fingertips bilaterally. Generalized weakness Psychiatric/Behavioral: Negative for confusion and decreased concentration. The patient is not nervous/anxious. Nursing Assessment: Physical Exam * Carlito Solis APRN-SENIOR ORACLE DBA - 11/30/2024 12:00 PM EDT Images from the original note were not included. [facility] Dr. Tiarra Fiore MD Professor, Department of Neurosurgery Director of Neurosurgical Oncology [facility] and [place] [address] ESTABLISHED PATIENT VISIT NOTES Fred Wright is a 68 y.o. male with metastatic renal cell carcinoma, clear type initially diagnosed in 2010, s/p left radical nephrectomy with negative lymph nodes on 10/29/[address] at [facility] Preoperative CT scan completed on 10/13/2010 showed bilateral multiple small lung nodules. Patient was placed on observation after nephrectomy. CTs completed on 12/13 2018 showed increasing bilateral lungnodules with complex masses in the right kidney. Underwent a kidney biopsy which confirmed metastatic renal cell carcinoma. He was started on Nivo/Ipilim but discontinued after 4 doses due to AFib (on aspirin and warfarin; currently off warfarin due to hematuria). Started Keytruda and Axitinib in 2019, stopped in 2020 due to side effects and COVID. Restarted Axitinib in 04/2024 d/t progression seen on restaging CTs. Stopped Axitinib in 06/2024 2/2 cardiotoxicity, EF 40%; resumed Axitinib at a lower dose of 5 mg once daily in July 2024. Patient presented to local ER on 11/20/2024 with upperback/chest pain. CT PE showed T2 lesion with pedicle involvement. MRI thoracic spine with and without contrast completed on 11/20/2024 showed T2 pathologic fracture with epidural tumor. Patient that presents to [facility] for consultation of newly found T2 tumor likely metastatic with underlying pathologic fracture. Med Oncologist: Jeffrey Kuhn MD Radiation Oncologist: SANTI ALEJANDRO. PAST MEDICAL / SURGICAL HISTORY Past Medical History: Diagnosis Date Arrhythmia Atrial fibrillation CAD (coronary artery disease) Cancer Believed to be metastatic from renal cancer. Congestive heart failure Diabetes mellitus Dialysis patient DVT (deep venous thrombosis) Essential hypertension, benign GERD (gastroesophageal reflux disease) History of chemotherapy Pulmonary embolism Renal disease Past Surgical History: Procedure Laterality Date HIP REPLACEMENT Right NEPHRECTOMY REMOVAL CATARACT (PEM) Bilateral Social History Socioeconomic History Marital status: Single Spouse name: Not on file Number of children: Not on file Years of education: Not on file Highest education level: Not on file Occupational History Not on file Tobacco Use Smoking status: Never Smokeless tobacco: Never Substance and Sexual Activity Alcohol use: Not Currently Drug use: Not Currently Sexual activity: Not on file Other Topics Concern Not on file Social History Narrative Not on file Social Drivers of Health Financial Resource Strain: Not on file Food Insecurity: Not on file Transportation Needs: Not on file Physical Activity: Not on file Stress: Not on file Social Connections: Not on file Personal Safety: Not on file Housing Stability: Not on file Family History Problem Relation Age of Onset Diabetes Mother Stroke Mother Heart Disease - Other Mother Heart Disease - Other Father III. ALLERGIES/ MEDICATIONS ALLERGIES: Penicillins MEDICATIONS: Current Outpatient Medications Medication Sig Allopurinol 100 MG tablet Aspirin [address] tablet Take 1 tablet by mouth daily. B Lhubdzn-A-Duypy Acid (Theresa-Fabian) tablet Take 1 tablet by mouth daily. Cartia XT 120 MG Cap SR 24HR capsule XL Take 1 mg by mouth. dexAMETHasone 4 MG tablet Take 1 tablet by mouth every 6 hours. FeroSul 325 (65 Fe) MG tablet Take 1 tablet by mouth. Take with food. Finasteride 5 MG tablet Take 1 tablet by mouth daily. glipiZIDE 2.5 MG tablet Take 1 tablet by mouth. Inlyta 5 MG tablet Take 1 tablet by mouth Daily (with dinner). Levothyroxine 125 MCG tablet Take 1 tablet by mouth daily. Metoclopramide 5 MG tablet Take 1 tablet by mouth every 6 hours. Metoprolol 100 MG tab regular release Take 1 tablet by mouth 2 times daily. Not certain of dose Pantoprazole [address] tablet DR Take 1 tablet by mouth daily. hydroCODone-acetaminophen 5-325 MG tablet take 1 tablet by mouth every 6 hours for 3 days IV. IMAGING MRI SPINE PERFUSION THORACIC WITH AND WITHOUT CONTRAST, 11/23/2024 IMPRESSION: 1. Findings concerning for osseous metastasis within the T2 vertebral body associated with a pathologic compression fracture with 50 percent height loss and minimal retropulsion. Suspect ventral and right lateral epidural tumor extension associated with mild to moderate spinal canal stenosis. No significant cord compression. 2. Multiple additional subcentimeter STIR hyperintense, enhancing lesions noted within the thoracic spine, concerning for additional scattered foci of osseous metastatic disease. . CURRENT CLINIC VISIT FINDINGS, EVALUATION, AND PLAN OF CARE REVIEW OF SYSTEMS: Review of Systems Constitutional: Negative for fatigue. Genitourinary: Positive for hematuria. Musculoskeletal: Positive for back pain. Negative for gait problem. Neurological: Negative for dizziness, extremity weakness, gait problem, headaches and numbness. All other systems reviewed and are negative. ASSESSMENT AND PHYSICAL EXAM: BP 175/86 Pulse 73 Temp 97 F (36.1 C) (Infrared) Resp 16 SpO2 95% Smoking Status Never See Dr. Fiore's note. IMPRESSION AND PLAN OF CARE: Krissy Wright is a 68 y.o. male with metastatic RCC that presents today to [facility] for a consultation related to a history of newly found T2 tumor with pathologic fracture. Patient seen and evaluated by Dr. Fiore and Dr. Farris in [facility]. MRI T spine wwo contrast with perfusion with findings concerning for osseous metastasis within the T2 vertebral body associated with a pathologic compression fracture with 50 percent height loss and minimal retropulsion. Suspect ventral and right lateral epidural tumor extension associated with mild to moderate spinal canal stenosis. No significant cord compressionImaging reviewed w/ patient. Dr. Fiore and Dr. Farris recommend SRS to T2 area. From a neurosurgery standpoint, we will see patient on as needed basis. Recommend that patient continues to follow up with Medical and Radiation Oncology. Patient advised to call with new or worsening neurological symptoms. Patient is in agreement with the plan. Plan: SRS to T2 tumor Follow up with Rad Onc Follow up with Med Onc PRKIZZY Pimentel * Tiarra Fiore MD - 11/30/2024 12:00 PM EDT I saw and examined Krissy Wright today with my MARIANNE, Carlito Solis. Krissy Wright is a 68 y.o. male with history of T2 metastasis. At his last visit I ordered follow up imaging and referred to rad onc. He presents today to finalize treatment plan. Denies new neurologic symptoms. I agree with the history of present illness, past medical history, family history, social history, medication list, allergies listed, and current complaints. I have personally reviewed all labs and radiographs as well as medical records and I confirm the findings noted above. I agree with the assessment and plan as noted above. Awake, alert ox4 Eomfull Tml Fs ma4e The imaging reviewed today includes: MRI: 1. Findings concerning for osseous metastasis within the T2 vertebral body associated with a pathologic compression fracture with 50 percent height loss and minimal retropulsion. Suspect ventral and right lateral epidural tumor extension associated with mild to moderate spinal canal stenosis. No significant cord compression. 2. Multiple additional subcentimeter STIR hyperintense, enhancing lesions noted within the thoracic spine, concerning for additional scattered foci of osseous metastatic disease. At this time, I feel we should proceed with SRS. The plan was developed mutually at the time of the clinic visit. The nurse practitioner/physician seo assistant and I have spoken with the patient and provided written and verbal instructions for the patient. The above note has been reviewed and I agree with the assessment and plan. Tiarra Fiore MD documented in this encounterK[facility] Instructions* Patient Instructions* Shirley Medina RN - 11/30/2024 12:00 PM EDT We are here to assist you through your care at [facility]! Your Care Team from today's visit included: Neurosurgeon- Dr. Gonsalo Fiore Nurse Practitioner- KIZZY Hardy Nurse Practitioner- Aleja Aleman APRN-SLIM Primary Nurse - QUINCY Valentino, RN Primary Nurse - QUINCY Bull, RN The Neurosurgery clinic and scheduling staff can be reached at [phone]. Please call if you develop new or worsening symptoms, also with any additional questions regarding your visit today or if you need to contact the doctor. You will speak with a receptionist scheduler, who will take a message and forward it to the clinical team. The primary nurse will return your call within 24 hours, assess your problem, consult with your medical team, and give direction on what should be done. We are not able to accommodate walk-in appointments. This is to provide the best possible care we can to all our patients. For any questions, comments, or concerns during after-hours (past 4:00pm M-F), weekends, and/or during a holiday please call [phone] and speak with the after-hours service. You will be connectedto the neurosurgery resident reinforcing iron worker helper. New or worsening neurological symptoms can include, but are not limited to: weakness, confusion, difficulty walking, vision/hearing/speech changes, seizures or extremity tremors, and persistent headaches. If it is an emergency you will need to go to your local ER. Ask them to fax your records to us so that we can update our team, fax number [phone]. If you experience seizures affecting the whole body, with or with out loss of consciousness, or stroke like symptoms please call 911 and get evaluated at local Emergency Room. The neurosurgery team typically does not refill medications. Please reach out to your primary care physician for any post-hospital or post- surgical medication refill requests. [facility] paperwork is available through your human resources department. Please allow 10-14 business days for completion of paperwork from our office. Documentation can be faxed to [phone]. Your feedback is important to our team. You may receive a survey in the mail following today's appointment. We would appreciate if you could take a few minutes to complete the survey and return it inthe envelope provided. Your response will be confidential and used to enhance patient care and address areas of opportunity. Thank you The Oncology Distress Screening, or Patient-Reported Outcomes Measurement Information System (PROMIS) questionnaire, is a validated tool used for recording self-reported measures of global, physical,mental and social health for adults in the general population and those living with a chronic condition. You will receive this questionnaire via [employer]. Please complete so your providers at [facility] can better help you! documented [facility] History of Present illness Narrative* Luda Baig RN - 11/23/2024 1:30 PM EDT Patient seen in clinic today. Overall feeling better, was started on steroids recently and this hasincreased his energy and appetite. No other concerns noted than below. Nurse Note: Review of Systems Constitutional: Positive for appetite change (Patient's had poor appetite, recently improved, but overall he has lost about 60 lbs over the last year, increased in the last month.). Negative for chills, fatigue and fever. HENT: Negative for hearing loss and tinnitus. Eyes: Negative for visual disturbance. Respiratory: Positive for shortness of breath. Negative for cough. Cardiovascular: Negative for chest pain and leg swelling. Gastrointestinal: Positive for diarrhea (post dialysis). Negative for constipation, nausea and vomiting. Genitourinary: Negative for difficulty urinating. Musculoskeletal: Positive for back pain and neck pain. Skin: Negative for rash. Neurological: Positive for dizziness, light-headedness and numbness (Fingers and hand bilaterally, comes and goes.). Negative for tremors, seizures, speech difficulty, weakness and headaches. Psychiatric/Behavioral: Negative for confusion and decreased concentration. * Tiarra Fiore MD - 11/23/2024 1:30 PM EDT Images from the original note were not included. I saw and examined Krissy Wright today with my MARIANNE, Apprity. Krissy Wright is a 68 y.o. male with history of RCC s/p nephrectomy and then recurrence on other kidney. He recently noted new upper back pain and MRI showed thoracic spine metastasis with pathologic fracture. He was referred for a surgical opinion. Denies progressive leg weakness. I agree with the history of present illness, past medical history, family history, social history, medication list, allergies listed, and current complaints. I have personally reviewed all labs and radiographs as well as medical records and I confirm the findings noted above. I agree with the assessment andplan as noted above. Awake, alert ox4 Eomfull Tml Fs ma4e The imaging reviewed today includes: MRI: At this time, I feel we should proceed with additional workup including CT and MRI. I also recommended referral to radiation oncology. I discussed surgical options should he not be a candidate for radiation alone. I discussed with the patient that risks of spine surgery may include bleeding, infection, pneumonia, heart complications, blood clots, post operative pain, neurological deficit, and . The patient is aware of these risks and will RTC next week to finalize treatment plan. The plan was developed mutually at the time of the clinic visit. The nurse practitioner/physician seo assistant and I have spoken with the patient and provided written and verbal instructions for the patient. The above note has been reviewed and I agree with the assessment and plan. Tiarra Fiore MD * Carlito Solis, CLOTH BEAMER-SENIOR ORACLE DBA - 11/23/2024 1:30 PM EDT Images from the original note were not included. [facility] Neurosurgery Oncology Clinic Dr. Tiarra Fiore MD Professor, Department of Neurosurgery Director of Neurosurgical Oncology [facility] [place] [address] NEW PATIENT VISIT NOTES IYolanda Wright is a 68 y.o. male that presents to [facility] Oncology Clinic forconsultation. Patient denies/reports: this would be the ROS as medically appropriate. Med/Hem Oncologist: Radiation Oncologist: II. PAST MEDICAL / SURGICAL HISTORY Past Medical History: Diagnosis Date Arrhythmia Atrial fibrillation CAD (coronary artery disease) Cancer Believed to be metastatic from renal cancer. Congestive heart failure Diabetes mellitus Dialysis patient DVT (deep venous thrombosis) Essential hypertension, benign GERD (gastroesophageal reflux disease) History of chemotherapy Pulmonary embolism Renal disease Past Surgical History: Procedure Laterality Date HIP REPLACEMENT Right NEPHRECTOMY REMOVAL CATARACT (PEM) Bilateral Social History Socioeconomic History Marital status: Single Spouse name: Not on file Number of children: Not on file Years of education: Not on file Highest education level: Not on file Occupational History Not on file Tobacco Use Smoking status: Never Smokeless tobacco: Never Substance and Sexual Activity Alcohol use: Not Currently Drug use: Not Currently Sexual activity: Not on file Other Topics Concern Not on file Social History Narrative Not on file Social Drivers of Health Financial Resource Strain: Not on file Food Insecurity: Not on file Transportation Needs: Not on file Physical Activity: Not on file Stress: Not on file Social Connections: Not on file Personal Safety: Not on file Housing Stability: Not on file Family History Problem Relation Age of Onset Diabetes Mother Stroke Mother Heart Disease - Other Mother Heart Disease - Other Father III. ALLERGIES/ MEDICATIONS ALLERGIES: Penicillins MEDICATIONS: Current Outpatient Medications Medication Sig Allopurinol 100 MG tablet B Vmmzpri-Q-Rpwhx Acid (Theresa-Fabian) tablet Take 1 tablet by mouth daily. Cartia XT 120 MG Cap SR 24HR capsule XL Take 1 mg by mouth. dexAMETHasone 4 MG tablet Take 1 tablet by mouth every 6 hours. FeroSul 325 (65 Fe) MG tablet Take 1 tablet by mouth. Take with food. Finasteride 5 MG tablet Take 1 tablet by mouth daily. glipiZIDE 2.5 MG tablet Take 1 tablet by mouth. hydroCODone-acetaminophen 5-325 MG tablet take 1 tablet by mouth every 6 hours for 3 days Inlyta 5 MG tablet Take 1 tablet by mouth Daily (with dinner). Levothyroxine 125 MCG tablet Take 1 tablet by mouth Daily (with dinner). Metoclopramide 5 MG tablet Take 1 tablet by mouth every 6 hours. Metoprolol 100 MG tab regular release Take 1 tablet by mouth. Pantoprazole [address] tablet DR Take 1 tablet by mouth daily. Aspirin [address] tablet Take 1 tablet by mouth daily. IV. IMAGING MRI THORACIC SPINE WITH AND WITHOUT CONTRAST 11/20/24 . CURRENT CLINIC VISIT FINDINGS, EVALUATION, AND PLAN OF CARE REVIEW OF SYSTEMS: ASSESSMENT AND PHYSICAL EXAM: BP 172/76 (BP Location: Right arm, BP Position: Sitting) Pulse 72 Temp 97.6 F (36.4 C) (Infrared) Resp 16 SpO2 95% Smoking Status Never IMPRESSION AND PLAN OF CARE: Krissy Wright is a 68 y.o. male that presents today to [facility]cology [facility] for a consultation related to a history of - Plan: documented in this encounterOSL[facility] Instructions* Patient Instructions* Shirley Medina RN - 11/23/2024 1:30 PM EDT We are here to assist you through your care at [facility]! Your Care Team from today's visit included: Neurosurgeon- Dr. Gonsalo Fiore Nurse Practitioner- Carlito Solis APRN-SENIOR ORACLE DBA Nurse Practitioner- Aleja Aleman APRN-SENIOR ORACLE DBA Primary Nurse - QUINCY Valentino, RN The Neurosurgery clinic and scheduling staff can be reached at [phone]. Please call if you develop new or worsening symptoms, also with any additional questions regarding your visit today or if you need to contact the doctor. You will speak with a receptionist scheduler, who will take a message and forward it to the clinical team. The primary nurse will return your call within 24 hours, assess your problem, consult with your medical team, and give direction on what should be done. We are not able to accommodate walk-in appointments. This is to provide the best possible care we can to all our patients. For any questions, comments, or concerns during after-hours (past 4:00pm M-F), weekends, and/or during a holiday please call [phone] and speak with the after-hours service. You will be connectedto the neurosurgery resident reinforcing iron worker helper. New or worsening neurological symptoms can include, but are not limited to: weakness, confusion, difficulty walking, vision/hearing/speech changes, seizures or extremity tremors, and persistent headaches. If it is an emergency you will need to go to your local ER. Ask them to fax your records to us so that we can update our team, fax number [phone]. If you experience seizures affecting the whole body, with or with out loss of consciousness, or stroke like symptoms please call 911 and get evaluated at local Emergency Room. The neurosurgery team typically does not refill medications. Please reach out to your primary care physician for any post-hospital or post- surgical medication refill requests. Family Medical Leave paperwork is available through your human resources department. Please allow 10-14 business days for completion of paperwork from our office. Documentation can be faxed to [phone]. Your feedback is important to our team. You may receive a survey in the mail following today's appointment. We would appreciate if you could take a few minutes to complete the survey and return it inthe envelope provided. Your response will be confidential and used to enhance patient care and address areas of opportunity. Thank you The Oncology Distress Screening, or Patient-Reported Outcomes Measurement Information System (PROMIS) questionnaire, is a validated tool used for recording self-reported measures of global, physical,mental and social health for adults in the general population and those living with a chronic condition. You will receive this questionnaire via [employer]. Please complete so your providers at [facility] can better help you! [facility] Nuclear medicine Diagnostic study note [facility] Imaging Services [address] [place] [address] Bone Scan Whole Body MR#: [id number] Acct: [id number] Name: KRISSY WRIGHT Rep #: [id number] : 1955 M 68 From: Phoenix Foley MD PCP: Dr. Sam Del Toro DO Status: REG CLI Study:Bone Scan Whole Body Date of Exam: 11/14/24 Exam# [id number] Ordering Dr: Lucain Escobedo MD PROCEDURE: BONE SCAN WHOLE BODY 11/14/2024 REASON FOR EXAM: MALIGNANT NEOPLASM OF UNSPECIFIED KIDNEY, EXCEPT RENAL PELVIS TECHNIQUE: delayed phase imaging of the body after radiopharmaceutical administration RADIOPHARMACEUTICAL: 27 mCi Technetium-99m MDP IV COMPARISON: CORRELATION WITH EXISTING RELEVANT IMAGING STUDIES (i.e. x-ray, MRI, CT, etc.): CT 4 17 20 FINDINGS: Delayed: Homogeneous uptake of radiopharmaceutical throughout the bony skeleton. No focal areas of increased uptake to suggest metastatic disease. Absence of the lateral aspect of the left 11th and 12th ribs likely related to left nephrectomy. Normal uptake of radiopharmaceutical by the right kidney with excretion into thebladder. The left kidney is not identified consistent with nephrectomy. NM/Bone Scan Whole Body IMPRESSION: No scintigraphic evidence of metastatic disease. Reading Location: [facility] CC: Dr. Mo Escobedo MD; Dr. Sam Del Toro DO ~ Player Piano Technician: Signed [facility]04-17-2025 Radiology Diagnostic study note [facility] Imaging Services [address] [place] [address] CTA Chest W/WO Contrast MR#: [id number] Acct: [id number] Name: KRISSY WRIGHT Rep #: [id number] : 1955 M 68 From: Everette Rush MD PCP: Dr. Sam Del Toro, DO Status: REG ER Study:CTA Chest W/WO Contrast Date of Exam: 11/09/24 Exam# [id number] Ordering Dr: Aaron Flores DO PROCEDURE: CTA CHEST W/WO CONTRAST 11/09/2024 REASON FOR EXAM: CHEST PAIN, HX OF PE, ELEVATED DIMER TECHNIQUE: CTA imaging of the chest with intravenous contrast. Coronal and Sagittal reconstruction series were provided. Maximum intensity projection (MIPs) CONTRAST: 100 cc Isovue 370 IV One or more dose reduction techniques were used (e.g., Automated exposure control, adjustment of the mA and/or kV according to patient size, use of iterative reconstruction technique). RADIATION DOSE SUMMARY: CTDlvol: 19.00 mGy DLP: 535.20 mGycm COMPARISON: CT abdomen and pelvis 10/04/[address] chest abdomen and pelvis 04/17/2024 FINDINGS: No evidence of filling defect to suggest pulmonary embolism. Thoracic aorta appears within limits. Moderate to heavy appearing three-vessel coronary calcification mainly left main and proximal LAD again noted. No pericardial or pleural effusion. The central airways appear patent. No evidence of acute pulmonary process identified. Bilateral innumerable scattered pulmonary nodules consistent with metastatic disease is again noted. The nodules overall appear smaller than on the prior study. Right hilar adenopathy appears smaller than the prior study. Mild subcarinal adenopathy. 2 pancreatic masses are again seen not significantly changed as imaged. Heterogeneous multilobular mixed cystic and solid masslike area at the visualized partially imaged upper right kidney is not significantly changed inappearance with some areas of associated small calcification again seen. Again note of status post previous left nephrectomy. There is now new appearing lytic lesion within the right pedicle of T2 as well as the vertebral body with associated appearing pathologic vertebral body fracture without significant appearing loss of vertebral body height or retropulsion of bone. CT/CTA Chest W/WO Contrast IMPRESSION: No evidence of filling defect to suggest pulmonary embolism. Moderate to heavy appearing three-vessel coronary calcification mainly left mainand proximal LAD again noted. No evidence of acute pulmonary process identified. Bilateral innumerable scattered pulmonary nodules consistent with metastatic disease is again noted. The nodules overall appear smaller than on the prior study. Right hilar adenopathy appears smaller than the prior study. Mild subcarinal adenopathy. 2 pancreatic masses are again seen not significantly changed as imaged. Heterogeneous multilobular mixed cystic and solid masslike area at the visualized partially imaged upper right kidney is not significantly changed inappearance with some areas of associated small calcification again seen. Again note of status post previous left nephrectomy. There is now NEW appearing lytic lesion within the right pedicle of T2 as well as the vertebral body with associated appearing pathologic vertebral body fracture without significant appearing loss of vertebral body height or retropulsion of bone. Reading Location: [facility] CC: Dr. Ana Flores DO; Dr. Sam Del Toro DO ~ Player Piano Technician: Signed [facility]03-12-[facility] Radiology Diagnostic study note [facility] Imaging Services [address], [place] [address] Abdomen/Pelvis W IV Cont ONLY MR#: [id number] Acct: [id number] Name: KRISSY WRIGHT Rep #: [id number] : 1955 M 68 From: Brigitte Hernandez MD PCP: Dr. Sam Del Toro DO Status: REG ER Study:Abdomen/Pelvis W IV Cont ONLY Date of E xam: 10/04/24 Exam# [id number] Ordering Dr: Darnell Rodriguez DO EXAM: CT Abdomen and Pelvis With Intravenous Contrast CLINICAL INDICATION: HEMATURIA HISTORY RENAL CANCER (R) NEPHRECTOMY (L) TECHNIQUE: Axial computed tomography images of the abdomen and pelvis with intravenous contrast. This CT exam was performed using one or more of the following dose reduction techniques: automated exposure control, adjustment of the mA and/or kV according to patient size, and/or use of iterative reconstruction technique. COMPARISON: CT Abdomen Pelvis dated 04/17/2024 FINDINGS: LUNG BASES: Unremarkable. No mass. No consolidation. PLEURAL SPACE: Partially visualized lung nodules. Small left pleural effusion. Metastasis can not be excluded. ABDOMEN: LIVER: Unremarkable. No mass. GALLBLADDER AND BILE DUCTS: Unremarkable. No calcified stones. No ductal dilation. PANCREAS: Unremarkable. No mass. No ductal dilation. SPLEEN: Unremarkable. No splenomegaly. ADRENALS: Unremarkable. No mass. KIDNEYS AND URETERS: Multiple hypodense lesions of the right kidney, some of which appears to have heterogeneous enhancement. Neoplastic process can not be excluded. These appear similar to the prior exam. Left nephrectomy. STOMACH AND BOWEL: Mild volume fecal retention in the colon consistent with constipation. No obstruction. No mucosal thickening. PELVIS: APPENDIX: No findings to suggest acute appendicitis. BLADDER: Unremarkable. No mass. REPRODUCTIVE: Unremarkable as visualized. ABDOMEN and PELVIS: INTRAPERITONEAL SPACE: Unremarkable. No free air. No significant fluid collection. BONES/JOINTS: Total right hip replacement. No acute fracture. No dislocation. SOFT TISSUES: Unremarkable. VASCULATURE: Unremarkable. No abdominal aortic aneurysm. LYMPH NODES: Unremarkable. No enlarged lymph nodes. CT/Abdomen/Pelvis W IV Cont ONLY IMPRESSION: 1. Partially visualized lung nodules. Small left pleural effusion. Metastasiscan not be excluded. 2. Multiple hypodense lesions of the right kidney, some of which appears to have heterogeneous enhancement. Neoplastic process can not be excluded. These appear similar to the prior exam. 3. Mild volume fecal retention in the colon consistent with constipation. Reading Location: [facility] CC: Dr. Moody Rodriguez DO; Dr. Sam Del Toro DO ~ Player Piano Technician: Signed 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 October 10 12:55pm Pancreatic mass chronic September 12:55pm Hematuria resolved October 10 12:55pm CHF (congestive heart failure) [facility] October 23, 2024 8:57am 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 September 12, 2024 1:09pm Pancreatic mass chronic September 12, 2024 1:09pm CHF (congestive heart failure) chron ic October 10, 2024 12:55pm 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 October 10 12:55pm Pancreatic mass chronic September 12:55pm Hematuria resolved October 10 12:55pm CHF (congestive heart failure) chron ic October 23, 2024 8:57am 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 August 15, 2024 11:54am Pancreatic mass chronic July 272024 11:54am CHF (congestive heart failure) [facility] September 12, 2024 1:09pm 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 September 12, 2024 1:09pm Pancreatic mass chronic September 12, 2024 1:09pm Hypothyroidism chronic August 262024 1:45pm 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 September 12, 2024 1:45pm Encounter for education resolved F ebruary 2024 1:45pm Immunotherapy encounter resolved F ebruary 2024 1:45pm Viral URI resolved September 12, 2024 1:45pm CHF (congestive heart failure) [facility] October 10, 2024 12:55pm 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 October 10 12:55pm Pancreatic mass chronic September 12:55pm Hematuria resolved October 10 12:55pm CHF (congestive heart failure) [facility] October 23, 2024 8:57am 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 Work Phone: 1(309) 948-562112-19-2024 Evaluation note* Diagnosis Onset Date Resolution Status Admit Date CHF (congestive heart failure) [facility] ic July 13, 2024 8:44am 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 July 13, 2024 8:44am Pancreatic mass chronic July 13, 2024 8:44am CHF (congestive heart failure) chron ic August 15, 2024 9:44am Essential (primary) hypertension chronic August 15 9:44am Paroxysmal atrial fibrillation [facility] August 15, 2024 9:44am CHF (congestive heart failure) [facility] August 15, 2024 11:54am 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 August 15, 2024 11:54am Pancreatic mass chronic July 272024 11:54am CHF (congestive heart failure) chron ic September 12, 2024 1:09pm 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 September 12, 2024 1:09pm Pancreatic mass chronic September 12, 2024 1:09pm Hypothyroidism chronic August 262024 1:45pm 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 September 12, 2024 1:45pm Encounter for education resolved F ebruary 2024 1:45pm Immunotherapy encounter resolved F ebruary 2024 1:45pm Viral URI resolved September 12, 2024 1:45pm CHF (congestive heart failure) [facility] October 10, 2024 12:55pm 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 October 10 12:55pm Pancreatic mass chronic September 12:55pm Hematuria resolved October 10 12:55pm CHF (congestive heart failure) [facility] October 23, 2024 8:57am 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 Work Phone: 1(323) 856-185512-10-2024 Evaluation note* Diagnosis Onset Date Resolution Status Admit Date 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 July 04, 2024 7:32am Pancreatic mass chronic July 04, 2024 7:32am CHF (congestive heart failure) [facility] July 13, 2024 8:44am 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 July 13, 2024 8:44am Pancreatic mass chronic July 13, 2024 8:44am CHF (congestive heart failure) [facility] August 15, 2024 9:44am Essential (primary) hypertension chronic August 15 9:44am Paroxysmal atrial fibrillation [facility] August 15, 2024 9:44am CHF (congestive heart failure) chron August 15, 2024 11:54am 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 August 15, 2024 11:54am Pancreatic mass chronic July 272024 11:54am CHF (congestive heart failure) chron ic September 12, 2024 1:09pm 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 September 12, 2024 1:09pm Pancreatic mass chronic September 12, 2024 1:09pm Hypothyroidism chronic August 262024 1:45pm 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 September 12, 2024 1:45pm Encounter for education resolved F ebruary 2024 1:45pm Immunotherapy encounter resolved F ebruary 2024 1:45pm Viral URI resolved September 12, 2024 1:45pm CHF (congestive heart failure) [facility] October 10, 2024 12:55pm 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 October 10 12:55pm Pancreatic mass chronic September 12:55pm Hematuria inactive October 10 12:55pm [facility] Work Phone: 1(388) 534-712211-13-2024 Evaluation note* Diagnosis Onset Date Resolution Status Admit Date 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 June 07, 2024 9:07am Pancreatic mass chronic June 07, 2024 9:07am 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 July 04, 2024 7:32am Pancreatic mass chronic July 04, 2024 7:32am CHF (congestive heart failure) chron July 13, 2024 8:44am 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 July 13, 2024 8:44am Pancreatic mass chronic July 13, 2024 8:44am CHF (congestive heart failure) chron August 15, 2024 9:44am Essential (primary) hypertension chronic August 15 9:44am Paroxysmal atrial fibrillation chron August 15, 2024 9:44am CHF (congestive heart failure) [facility] August 15, 2024 11:54am 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 Chronic diastolic (congestive) heart failure chronic Essential (primary) hypertension chronic Paroxysmal atrial fibrillation [facility] Work Phone: Evaluation note* Diagnosis Onset Date Resolution Status Renal dysfunction acute Hypothyroidism chronic 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 Immunotherapy encounter acut e Neoplastic (malignant) related fatigue acute Hypothyroidism chronic 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 Encounter for education reso lved Viral URI resolved Renal dysfunction acute Hypothyroidism chronic 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 Chronic diastolic (congestive) heart failure chronic Essential (primary) hypertension chronic Paroxysmal atrial fibrillation chronic Abdominal pain acute Acute pancreatitis acute Anemia acute Dyspnea acute Hypotension acute Near syncope acute Pancreatic mass acute Syncope acute Acute kidney injury superimposed on CKD chronic Bilateral pulmonary embolism November 19, 2014 chronic CKD (chronic kidney disease) stage 4, GFR 15-29 ml/min chronic Metastatic 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 [facility] Work Phone: Evaluation note* Diagnosis Onset Date Resolution Status Renal dysfunction acute Hypothyroidism chronic 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 Immunotherapy encounter acut e Neoplastic (malignant) related fatigue acute Hypothyroidism chronic 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 Encounter for education reso lved Viral URI resolved Renal dysfunction acute Hypothyroidism chronic 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 Chronic diastolic (congestive) heart failure chronic Essential (primary) hypertension chronic Paroxysmal atrial fibrillation chronic Abdominal pain acute Acute pancreatitis acute Anemia acute Dyspnea acute Hypotension acute Near syncope acute Pancreatic mass acute Syncope acute Acute kidney injury superimposed on CKD chronic Bilateral pulmonary embolism November 19, 2014 chronic CKD (chronic kidney disease) stage 4, GFR 15-29 ml/min chronic 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 Abdominal pain acute History of kidney cancer acu te Pancreatic mass acute Chronic kidney failure [facility] Work Phone: Evaluation note* Diagnosis Onset Date Resolution Status Metastatic 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 acute Abdominal pain resolved Acute kidney injury superimposed on CKD resolved Acute pancreatitis resolved Dyspnea resolved Hypotension resolved Near syncope resolved Syncope resolved History of kidney cancer acu te Metastatic 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 acute Pancreatic mass acute Chronic kidney failure chron ic Abdominal pain resolved Diarrhea resolved Hyperbilirubinemia resolved Metastatic 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 acute Pancreatic mass acute Chronic kidney failure chron ic Hypothyroidism acute Metastatic 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 acute Encounter for education reso lved Immunotherapy encounter reso lved Viral URI resolved Metastatic 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 acute Pancreatic mass acute Chronic kidney failure [facility] Work Phone: Evaluation note* Diagnosis Onset Date Resolution Status Metastatic 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 acute CKD (chronic kidney disease) stage 4, GFR 15-29 ml/min chronic Abdominal pain resolved Acute kidney injury superimposed on CKD resolved Acute pancreatitis resolved Dyspnea resolved Hypotension resolved Near syncope resolved Syncope resolved History of kidney cancer acu te Metastatic 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 acute Pancreatic mass acute Chronic kidney failure chron ic CKD (chronic kidney disease) stage 4, GFR 15-29 ml/min chronic Abdominal pain resolved Diarrhea resolved Hyperbilirubinemia resolved Metastatic 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 acute Pancreatic mass acute Chronic kidney failure chron ic Hypothyroidism acute Metastatic 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 acute Encounter for education reso lved Immunotherapy encounter reso lved Viral URI resolved Metastatic 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 acute Pancreatic mass acute Chronic kidney failure chron ic CKD (chronic kidney disease) stage 4, GFR 15-29 ml/min [facility] Work Phone: Evaluation note* Diagnosis Onset Date Resolution Status Anemia chronic CKD (chronic kidney disease) stage 4, GFR 15-29 ml/min chronic 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 Abdominal pain resolved Acute kidney injury superimposed on CKD resolved Acute pancreatitis resolved Dyspnea resolved Hypotension resolved Near syncope resolved Syncope resolved CKD (chronic kidney disease) stage 4, GFR 15-29 ml/min chronic 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 Pancreatic mass chronic Abdominal pain resolved Diarrhea resolved Hyperbilirubinemia resolved 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 Pancreatic mass chronic Hypothyroidism chronic 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 Encounter for education reso lved Immunotherapy encounter reso lved Viral URI resolved 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 Pancreatic mass chronic CKD (chronic kidney disease) stage 4, GFR 15-29 ml/min chronic 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 Pancreatic mass chronic CKD (chronic kidney disease) stage 4, GFR 15-29 ml/min chronic Essential (primary) hypertension chronic 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 Paroxysmal atrial fibrillation [facility] Work Phone: Evaluation note* Diagnosis Onset Date Resolution Status Anemia chronic CKD (chronic kidney disease) stage 4, GFR 15-29 ml/min chronic 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 Abdominal pain resolved Acute kidney injury superimposed on CKD resolved Acute pancreatitis resolved Dyspnea resolved Hypotension resolved Near syncope resolved Syncope resolved CKD (chronic kidney disease) stage 4, GFR 15-29 ml/min chronic 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 Pancreatic mass chronic Abdominal pain resolved Diarrhea resolved Hyperbilirubinemia resolved 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 Pancreatic mass chronic Hypothyroidism chronic 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 Encounter for education reso lved Immunotherapy encounter reso lved Viral URI resolved CKD (chronic kidney disease) stage 4, GFR 15-29 ml/min [facility] Work Phone: Evaluation note* Diagnosis Onset Date Resolution Status CKD (chronic kidney disease) stage 4, GFR 15-29 ml/min [facility] Work Phone: Evaluation note* Diagnosis Onset Date Resolution Status CKD (chronic kidney disease) stage 4, GFR 15-29 ml/min chronic 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 Work Phone: Evaluation noteNo assessment information available 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 Diagnosis Metastatic cancer to spine- Primary Secondary malignant neoplasm of bone and bone marrow [facility] Diagnosis Metastatic cancer to spine- Primary Secondary malignant neoplasm of bone and bone marrow [facility] Diagnosis Metastatic cancer to spine- Primary Secondary malignant neoplasm of bone and bone marrow [facility] this [facility] Diagnosis Metastatic cancer to spine- Primary Secondary malignant neoplasm of bone and bone marrow documented [facility] Diagnosis Metastatic cancer to spine- Primary Secondary malignant neoplasm of bone and bone marrow [facility] Diagnosis Metastatic cancer to spine- Primary Secondary malignant neoplasm of bone and bone marrow documented [facility] this 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 Work Phone: Hospital Discharge instructions Additional Instructions Your cardiac and lung workup was normal/stable today. No signs of blood clot in the lungs, new lung mass or pneumonia/heart issues that could be causing your symptoms today. You have been given a short course of pain medication. I do recommend taking a stool softener with this to prevent opioid-induced constipation. Follow-up with your bone scan as scheduled. 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 Return if you have recurrence or worsening of your symptoms.[facility] Work Phone: Reason for referral (narrative)No reason for referral information availableWOhio[facility] Work Phone: Reason for referral (narrative)* Unlisted Procedure Code (Routine) - New Request Specialty Diagnoses / Procedures Referred By Contac t Referred To Contact Procedures PLATELET MONITORING PER PROTOCOL Lisa Barrow APRN-CNP [address] [place] [address] Phone: tel: fax: Referral ID Status Reason Start Date Expiration Date V isits Requested Visits Authorized [id number] New Request 01/09/2025 02/03/2026 1 1 * Unlisted Procedure Code (Routine) - New Request Specialty Diagnoses / Procedures Referred By Contac t Referred To Contact Procedures DVT/VTE RISK ASSESSMENT Lisa Barrow APRN-CNP [address] [place] [address] Phone: tel: fax: Referral ID Status Reason Start Date Expiration Date V isits Requested Visits Authorized [id number] New Request 01/09/2025 02/03/2026 1 1 * Radiology (Emergency) - New Request Specialty Diagnoses / Procedures Referred By Contac t Referred To Contact Procedures ECG Isabella Cruz MD [address] [place] [address] Phone: tel: fax: Referral ID Status Reason Start Date Expiration Date V isits Requested Visits Authorized [id number] New Request 01/08/2025 02/02/2026 1 [facility] MRI/CAT Scan (Emergency) - Closed Specialty Diagnoses / Procedures Referred By Contac t Referred To Contact Diagnoses Metastatic cancer to spine Procedures MRI SPINE PERFUSION THORACIC WITH AND WITHOUT CONTRAST CHG MRI SPINAL CANAL THORACIC W/O & W/CONTR MATRL Tiarra Fiore MD [address] [place] [address] Phone: tel: fax: Referral ID Status Reason Start Date Expiration Date Visits Re quested Visits Authorized [id number] Closed 11/23/2024 12/18/2025 1 [facility] MRI/CAT Scan (Emergency) - Closed Specialty Diagnoses / Procedures Referred By Contac t Referred To Contact Diagnoses Metastatic cancer to spine Procedures CT SPINE CERVICAL THORACIC LUMBAR WITHOUT CONTRAST CHG CT CERVICAL SPINE W/O CONTRAST MATERIAL CHG CT THORACIC SPINE W/O CONTRAST MATERIAL CHG CT LUMBAR SPINE W/O CONTRAST MATERIAL Tiarra Fiore MD [address] [place] [address] Phone: tel: fax: Referral ID Status Reason Start Date Expiration Date Visits Re quested Visits Authorized [id number] Closed 11/23/2024 12/18/2025 1 1 [facility] for visit Narrative* (Routine) - Closed Specialty Diagnoses / Procedures Referred By Contac t Referred To Contact Diagnoses Metastatic cancer to spine Procedures BILLET HEATER RAD ONC SIMULATION Andrea Farris MD, PhD [address] [place] [id number] Phone: tel: fax: Referral ID Status Reason Start Date Expiration Date Visits Re quested Visits Authorized [id number] Closed 11/30/2024 12/25/2025 1 1 [facility] Auth/Cert Specialty Diagnoses / Procedures Referred By Fritz t Referred To Contact Diagnoses Renal Cancer (tumor thrombus RCC) Diamond Lincoln MD [address] [facility] [address] [place] [address] Phone: tel: fax: [facility] [address] [place] [address] Referral ID Status Reason Start Date Expiration Date Visits Re quested Visits Authorized [id number] 1 1 [facility] Chief Complaint and Reason for Visit Chief Complaint F/U LABS 2WKS LABS 2WKS LABS 4WKS LABS ONC/HEM CANCER 2WKS NO LABS REVIEW CT SCANS 4 mo f/u Reason for Visit Renal dysfunction Hypothyroidism Metastatic 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 Renal dysfunction Hypothyroidism Metastatic 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 Renal dysfunction Hypothyroidism Metastatic 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 Renal dysfunction Hypothyroidism Metastatic 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 Immunotherapy encounter Neoplastic (malignant) related fatigue Hypothyroidism Metastatic 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 Encounter for education Viral URI Renal dysfunction Hypothyroidism Metastatic 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 Chronic diastolic (congestive) heart failure Essential (primary) hypertension Paroxysmal atrial fibrillation Chief Complaint 2WKS LABS 2WKS LABS 4WKS LABS ONC/HEM CANCER 2WKS NO LABS REVIEW CT SCANS 4 mo f/u NON-RHEUMATIC MITRAL VALVE INSUFFICIENCY SCANNING PURPOSES ONLY Reason for Visit Renal dysfunction Hypothyroidism Metastatic 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 Renal dysfunction Hypothyroidism Metastatic 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 Renal dysfunction Hypothyroidism Metastatic 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 Immunotherapy encounter Neoplastic (malignant) related fatigue Hypothyroidism Metastatic 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 Encounter for education Viral URI Renal dysfunction Hypothyroidism Metastatic 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 Chronic diastolic (congestive) heart failure Essential (primary) hypertension Paroxysmal atrial fibrillation Chief Complaint 2WKS LABS 4WKS LABS ONC/HEM CANCER 2WKS NO LABS REVIEW CT SCANS 4 mo f/u NON-RHEUMATIC MITRAL VALVE INSUFFICIENCY SCANNING PURPOSES ONLY Syncope SYNCOPE COUGH/INT LABS Reason for Visit Renal dysfunction Hypothyroidism Metastatic 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 Renal dysfunction Hypothyroidism Metastatic 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 Immunotherapy encounter Neoplastic (malignant) related fatigue Hypothyroidism Metastatic 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 Encounter for education Viral URI Renal dysfunction Hypothyroidism Metastatic 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 Chronic diastolic (congestive) heart failure Essential (primary) hypertension Paroxysmal atrial fibrillation Chief Complaint 4WKS LABS ONC/HEM CANCER 2WKS NO LABS REVIEW CT SCANS 4 mo f/u NON-RHEUMATIC MITRAL VALVE INSUFFICIENCY SCANNING PURPOSES ONLY Syncope SYNCOPE COUGH/INT LABS syncope syncope syncope syncope syncope syncope syncope syncope syncope syncope syncope syncope Reason for Visit Renal dysfunction Hypothyroidism Metastatic 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 Immunotherapy encounter Neoplastic (malignant) related fatigue Hypothyroidism Metastatic 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 Encounter for education Viral URI Renal dysfunction Hypothyroidism Metastatic 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 Chronic diastolic (congestive) heart failure Essential (primary) hypertension Paroxysmal atrial fibrillation Abdominal pain Acute pancreatitis Anemia Dyspnea Hypotension Near syncope Pancreatic mass Syncope Acute kidney injury superimposed on CKD Bilateral pulmonary embolism CKD (chronic kidney disease) stage 4, GFR 15-29 ml/min Metastatic 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 Chief Complaint 4WKS LABS ONC/HEM CANCER 2WKS NO LABS REVIEW CT SCANS 4 mo f/u NON-RHEUMATIC MITRAL VALVE INSUFFICIENCY SCANNING PURPOSES ONLY Syncope SYNCOPE COUGH/INT LABS syncope syncope syncope syncope syncope syncope syncope syncope syncope syncope syncope syncope METASTATIC RENAL CELL CANCER Reason for Visit Renal dysfunction Hypothyroidism Metastatic 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 Immunotherapy encounter Neoplastic (malignant) related fatigue Hypothyroidism Metastatic 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 Encounter for education Viral URI Renal dysfunction Hypothyroidism Metastatic 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 Chronic diastolic (congestive) heart failure Essential (primary) hypertension Paroxysmal atrial fibrillation Abdominal pain Acute pancreatitis Anemia Dyspnea Hypotension Near syncope Pancreatic mass Syncope Acute kidney injury superimposed on CKD Bilateral pulmonary embolism CKD (chronic kidney disease) stage 4, GFR 15-29 ml/min Metastatic 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 Abdominal pain History of kidney cancer Pancreatic mass Chronic kidney failure Chief Complaint 4 mo f/u NON-RHEUMATIC MITRAL VALVE INSUFFICIENCY SCANNING PURPOSES ONLY Syncope SYNCOPE COUGH/INT LABS syncope syncope syncope syncope syncope syncope syncope syncope syncope syncope syncope syncope syncope syncope METASTATIC RENAL CELL CANCER METASTATIC RENAL CELL CANCER METASTATIC RENAL CELL CANCER METASTATIC RENAL CELL CANCER METASTATIC RENAL CELL CANCER f/u - labs ONC/HEM COUGH FISTULA LT FOREARM RADIAL TO CEPHALIC AV FISTULA CREATION LT FOREARM RADIAL TO CEPHALIC AV FISTULA CREATION Reason for Visit Metastatic renal kalia l 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 Abdominal pain Acute kidney injury superimposed on CKD Acute pancreatitis Dyspnea Hypotension Near syncope Syncope History of kidney cancer Metastatic 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 Pancreatic mass Chronic kidney failure Abdominal pain Diarrhea Hyperbilirubinemia Metastatic 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 Pancreatic mass Chronic kidney failure Hypothyroidism Metastatic 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 Encounter for education Immunotherapy encounter Viral URI Metastatic 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 Pancreatic mass Chronic kidney failure Chief Complaint NON-RHEUMATIC MITRAL VALVE INSUFFICIENCY SCANNING PURPOSES ONLY Syncope SYNCOPE COUGH/INT LABS syncope syncope syncope syncope syncope syncope syncope syncope syncope syncope syncope syncope syncope syncope METASTATIC RENAL CELL CANCER METASTATIC RENAL CELL CANCER METASTATIC RENAL CELL CANCER METASTATIC RENAL CELL CANCER METASTATIC RENAL CELL CANCER f/u - labs ONC/HEM COUGH FISTULA LT FOREARM RADIAL TO CEPHALIC AV FISTULA CREATION LT FOREARM RADIAL TO CEPHALIC AV FISTULA CREATION FISTULA CREATION 02/25 RENAL CANCER Reason for Visit Metastatic renal kalia l 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 CKD (chronic kidney disease) stage 4, GFR 15-29 ml/min Abdominal pain Acute kidney injury superimposed on CKD Acute pancreatitis Dyspnea Hypotension Near syncope Syncope History of kidney cancer Metastatic 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 Pancreatic mass Chronic kidney failure CKD (chronic kidney disease) stage 4, GFR 15-29 ml/min Abdominal pain Diarrhea Hyperbilirubinemia Metastatic 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 Pancreatic mass Chronic kidney failure Hypothyroidism Metastatic 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 Encounter for education Immunotherapy encounter Viral URI Metastatic 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 Pancreatic mass Chronic kidney failure CKD (chronic kidney disease) stage 4, GFR 15-29 ml/min Chief Complaint syncope syncope syncope syncope syncope syncope syncope syncope syncope syncope syncope syncope METASTATIC RENAL CELL CANCER METASTATIC RENAL CELL CANCER METASTATIC RENAL CELL CANCER METASTATIC RENAL CELL CANCER METASTATIC RENAL CELL CANCER f/u - labs ONC/HEM COUGH FISTULA LT FOREARM RADIAL TO CEPHALIC AV FISTULA CREATION LT FOREARM RADIAL TO CEPHALIC AV FISTULA CREATION FISTULA CREATION 02/25 RENAL CANCER 2MO NO LABS REVIEW CT 1 M F/U 02/25 FISTULA CREATION 6 M FU STOOL SAMPLE Reason for Visit Anemia CKD (chronic kidney disease) stage 4, GFR 15-29 ml/min Metastatic 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 Abdominal pain Acute kidney injury superimposed on CKD Acute pancreatitis Dyspnea Hypotension Near syncope Syncope CKD (chronic kidney disease) stage 4, GFR 15-29 ml/min Metastatic 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 Pancreatic mass Abdominal pain Diarrhea Hyperbilirubinemia Metastatic 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 Pancreatic mass Hypothyroidism Metastatic 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 Encounter for education Immunotherapy encounter Viral URI Metastatic 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 Pancreatic mass CKD (chronic kidney disease) stage 4, GFR 15-29 ml/min Metastatic 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 Pancreatic mass CKD (chronic kidney disease) stage 4, GFR 15-29 ml/min Essential (primary) hypertension Metastatic 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 Paroxysmal atrial fibrillation Chief Complaint syncope syncope syncope syncope METASTATIC RENAL CELL CANCER METASTATIC RENAL CELL CANCER METASTATIC RENAL CELL CANCER METASTATIC RENAL CELL CANCER METASTATIC RENAL CELL CANCER f/u - labs ONC/HEM COUGH FISTULA LT FOREARM RADIAL TO CEPHALIC AV FISTULA CREATION LT FOREARM RADIAL TO CEPHALIC AV FISTULA CREATION FISTULA CREATION 02/25 RENAL CANCER 2MO NO LABS REVIEW CT 1 M F/U 02/25 FISTULA CREATION 6 M FU STOOL SAMPLE FISTULA CREATION 02/25 Reason for Visit Anemia CKD (chronic kidney disease) stage 4, GFR 15-29 ml/min Metastatic 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 Abdominal pain Acute kidney injury superimposed on CKD Acute pancreatitis Dyspnea Hypotension Near syncope Syncope CKD (chronic kidney disease) stage 4, GFR 15-29 ml/min Metastatic 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 Pancreatic mass Abdominal pain Diarrhea Hyperbilirubinemia Metastatic 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 Pancreatic mass Hypothyroidism Metastatic 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 Encounter for education Immunotherapy encounter Viral URI Metastatic 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 Pancreatic mass CKD (chronic kidney disease) stage 4, GFR 15-29 ml/min Metastatic 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 Pancreatic mass CKD (chronic kidney disease) stage 4, GFR 15-29 ml/min Essential (primary) hypertension Metastatic 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 Paroxysmal atrial fibrillation CKD (chronic kidney disease) stage 4, GFR 15-29 ml/min Chief Complaint FISTULA LT FOREARM RADIAL TO CEPHALIC AV FISTULA CREATION LT FOREARM RADIAL TO CEPHALIC AV FISTULA CREATION FISTULA CREATION 02/25 RENAL CANCER 2MO NO LABS REVIEW CT 1 M F/U 02/25 FISTULA CREATION 6 M FU STOOL SAMPLE FISTULA CREATION 02/25 RENAL CANCER 2MO LABS REVIEW CT ONC/HEM Reason for Visit Metastatic renal kalia l 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 Pancreatic mass CKD (chronic kidney disease) stage 4, GFR 15-29 ml/min Metastatic 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 Pancreatic mass CKD (chronic kidney disease) stage 4, GFR 15-29 ml/min Essential (primary) hypertension Metastatic 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 Paroxysmal atrial fibrillation CKD (chronic kidney disease) stage 4, GFR 15-29 ml/min Metastatic 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 Pancreatic mass Hypothyroidism Metastatic 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 Encounter for education Immunotherapy encounter Viral URI Chief Complaint STOOL SAMPLE FISTULA CREATION 02/25 RENAL CANCER 2MO LABS REVIEW CT ONC/HEM FISTULA CHECK DUE 08/03/22 PER ORDER Reason for Visit CKD (chronic kidney disease) stage 4, GFR 15-29 ml/min Metastatic 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 Pancreatic mass Hypothyroidism Metastatic 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 Encounter for education Immunotherapy encounter Viral URI CKD (chronic kidney disease) stage 4, GFR 15-29 ml/min Chief Complaint FISTULA CHECK DUE 08/03/22 PER ORDER RENAL CANCER Reason for Visit CKD (chronic kidney disease) stage 4, GFR 15-29 ml/min Chief Complaint FISTULA CHECK DUE 08/03/22 PER ORDER RENAL CANCER 4MO LABS REVIEW CT ONC/HEM Reason for Visit CKD (chronic kidney disease) stage 4, GFR 15-29 ml/min Metastatic 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 Pancreatic mass Hypothyroidism Metastatic 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 Encounter for education Immunotherapy encounter Viral URI Chief Complaint FISTULA CHECK DUE 08/03/22 PER ORDER RENAL CANCER 4MO LABS REVIEW CT ONC/HEM DUE ON OR AROUND DATE LISTED Reason for Visit CKD (chronic kidney disease) stage 4, GFR 15-29 ml/min Metastatic 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 Pancreatic mass Hypothyroidism Metastatic 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 Encounter for education Immunotherapy encounter Viral URI Chief Complaint FISTULA CHECK DUE 08/03/22 PER ORDER RENAL CANCER 4MO LABS REVIEW CT ONC/HEM DUE ON OR AROUND DATE LISTED 6 M FU A FIB Reason for Visit CKD (chronic kidney disease) stage 4, GFR 15-29 ml/min Metastatic 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 Pancreatic mass Hypothyroidism Metastatic 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 Encounter for education Immunotherapy encounter Viral URI Essential (primary) hypertension Metastatic 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 Paroxysmal atrial fibrillation Chief Complaint MALIGNANT NEOPLASM O F RENAL PELVIS Chief Complaint MALIGNANT NEOPLASM O F RENAL PELVIS 6MO LABS REVIEW CT ONC/HEM Reason for Visit Metastatic renal kalia l 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 Pancreatic mass Hypothyroidism Metastatic 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 Encounter for education Immunotherapy encounter Viral URI Chief Complaint Admit Date 4WKS LABS June 07, 2024 9:07am ACUTE LABS July 04, 2024 7:32am HIGH RISK MED July 11, 2024 7:57am 2WKS LABS REVIEW ECHO July 13 8:44am CHF, HIGH RISK MEDS August 08, 2024 1 0:01am 8 M FU August 15, 2024 9 :44am 4WKS NO LABS REVIEW ECHO August 15 11:54am 4WKS LABS September 12, 2024 1:09pm ONC/HEM September 12, 2024 1:45pm hematuria October 04, 2024 7:1 1am Reason for Visit Admit Date Metastatic 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 June 07, 2024 9:07am Pancreatic mass June 07, 2024 9:07am Metastatic 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 July 04, 2024 7:32am Pancreatic mass July 04, 2024 7:32am CHF (congestive heart failure) July 13, 2024 8:44am Metastatic 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 July 13, 2024 8:44am Pancreatic mass July 13, 2024 8:44am CHF (congestive heart failure) July 272024 9:44am Essential (primary) hypertension August 15, 2024 9:44am Paroxysmal atrial fibrillation July 272024 9:44am CHF (congestive heart failure) July 272024 11:54am Metastatic 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 August 15, 2024 11:54am Pancreatic mass August 15, 2024 1 1:54am CHF (congestive heart failure) September 12, 2024 1:09pm Metastatic 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 September 12, 2024 1:09pm Pancreatic mass September 12, 2024 1:09pm Hypothyroidism September 12, 2024 1:45pm Metastatic 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 September 12, 2024 1:45pm Encounter for education September 12 025 1:45pm Immunotherapy encounter September 12 025 1:45pm Viral URI September 12, 2024 1:45pm Chief Complaint Admit Date ACUTE LABS July 04, 2024 7:32am HIGH RISK MED July 11, 2024 7:57am 2WKS LABS REVIEW ECHO July 13 8:44am CHF, HIGH RISK MEDS August 08, 2024 1 0:01am 8 M FU August 15, 2024 9 :44am 4WKS NO LABS REVIEW ECHO August 15 025 11:54am 4WKS LABS September 12, 2024 1:09pm ONC/HEM September 12, 2024 1:45pm hematuria October 04, 2024 7:1 1am RENAL CANCER October 05, 2024 9:4 0am 4WKS LABS October 10, 2024 12: 55pm Reason for Visit Admit Date Metastatic 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 July 04, 2024 7:32am Pancreatic mass July 04, 2024 7:32am CHF (congestive heart failure) July 13, 2024 8:44am Metastatic 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 July 13, 2024 8:44am Pancreatic mass July 13, 2024 8:44am CHF (congestive heart failure) July 272024 9:44am Essential (primary) hypertension August 15, 2024 9:44am Paroxysmal atrial fibrillation July 272024 9:44am CHF (congestive heart failure) July 272024 11:54am Metastatic 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 August 15, 2024 11:54am Pancreatic mass August 15, 2024 1 1:54am CHF (congestive heart failure) September 12, 2024 1:09pm Metastatic renal cell carcinoma to lung September 12, 2024 1:09pm Pancreatic mass September 12, 2024 1:09pm Hypothyroidism September 12, 2024 1:45pm Metastatic renal cell carcinoma to lung September 12, 2024 1:45pm Encounter for education September 12 1:45pm Immunotherapy encounter September 12 1:45pm Viral URI September 12, 2024 1:45pm CHF (congestive heart failure) September 12:55pm Metastatic renal cell carcinoma to lung October 10, 2024 12:55pm Pancreatic mass October 10, 2024 12: 55pm Hematuria October 10, 2024 12: 55pm Chief Complaint Admit Date 2WKS LABS REVIEW ECHO July 13 8:44am CHF, HIGH RISK MEDS August 08, 2024 1 0:01am 8 M FU August 15, 2024 9 :44am 4WKS NO LABS REVIEW ECHO August 15 11:54am 4WKS LABS September 12, 2024 1:09pm ONC/HEM September 12, 2024 1:45pm hematuria October 04, 2024 7:1 1am RENAL CANCER October 05, 2024 9:4 0am 4WKS LABS October 10, 2024 12: 55pm 2WKS NO LABS DR ESCOBEDO NOTE October 23, 2024 8:57am back pain November 09, 2024 1:4 4am Reason for Visit Admit Date CHF (congestive heart failure) July 13, 2024 8:44am Metastatic renal cell carcinoma to lung July 13, 2024 8:44am Pancreatic mass July 13, 2024 8:44am CHF (congestive heart failure) July 272024 9:44am Essential (primary) hypertension August 15, 2024 9:44am Paroxysmal atrial fibrillation July 272024 9:44am CHF (congestive heart failure) July 272024 11:54am Metastatic renal cell carcinoma to lung August 15, 2024 11:54am Pancreatic mass August 15, 2024 1 1:54am CHF (congestive heart failure) September 12, 2024 1:09pm Metastatic 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 September 12, 2024 1:09pm Pancreatic mass September 12, 2024 1:09pm Hypothyroidism September 12, 2024 1:45pm Metastatic 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 September 12, 2024 1:45pm Encounter for education September 12 1:45pm Immunotherapy encounter September 12 1:45pm Viral URI September 12, 2024 1:45pm CHF (congestive heart failure) September 12:55pm Metastatic renal cell carcinoma to lung October 10, 2024 12:55pm Pancreatic mass October 10, 2024 12: 55pm Hematuria October 10, 2024 12: 55pm CHF (congestive heart failure) September 8:57am Metastatic renal cell carcinoma to lung October 23, 2024 8:57am Pancreatic mass October 23, 2024 8:5 7am Hematuria October 23, 2024 8:5 7am Chief Complaint Admit Date 2WKS LABS REVIEW ECHO July 13 8:44am CHF, HIGH RISK MEDS August 08, 2024 1 0:01am 8 M FU August 15, 2024 9 :44am 4WKS NO LABS REVIEW ECHO August 15 11:54am 4WKS LABS September 12, 2024 1:09pm ONC/HEM September 12, 2024 1:45pm hematuria October 04, 2024 7:1 1am RENAL CANCER October 05, 2024 9:4 0am 4WKS LABS October 10, 2024 12: 55pm 2WKS NO LABS DR ESCOBEDO NOTE October 23, 2024 8:57am back pain November 09, 2024 1:4 4am n/v November 09, 2024 9:4 7am Chief Complaint Admit Date CHF, HIGH RISK MEDS August 08, 2024 1 0:01am 8 M FU August 15, 2024 9 :44am 4WKS NO LABS REVIEW ECHO August 15 025 11:54am 4WKS LABS September 12, 2024 1:09pm hematuria October 04, 2024 7:1 1am RENAL CANCER October 05, 2024 9:4 0am 4WKS LABS October 10, 2024 12: 55pm 2WKS NO LABS DR ESCOBEDO NOTE October 23, 2024 8:57am back pain November 09, 2024 1:4 4am n/v November 09, 2024 9:4 7am Malignant neoplasm of unspecified kidney , except November 14, 2024 9:18am 4WKS LABS November 20, 2024 8:5 9am ONC/HEM November 20, 2024 9:1 5am CERVICAL PAIN November 20, 2024 11: 05am Reason for Visit Admit Date CHF (congestive heart failure) July 272024 9:44am Essential (primary) hypertension August 15, 2024 9:44am Paroxysmal atrial fibrillation July 272024 9:44am CHF (congestive heart failure) July 272024 11:54am Metastatic renal cell carcinoma to lung August 15, 2024 11:54am Pancreatic mass August 15, 2024 1 1:54am CHF (congestive heart failure) September 12, 2024 1:09pm Metastatic renal cell carcinoma to lung September 12, 2024 1:09pm Pancreatic mass September 12, 2024 1:09pm CHF (congestive heart failure) September 12:55pm Metastatic renal cell carcinoma to lung October 10, 2024 12:55pm Pancreatic mass October 10, 2024 12: 55pm Hematuria October 10, 2024 12: 55pm CHF (congestive heart failure) September 8:57am Metastatic renal cell carcinoma to lung October 23, 2024 8:57am Pancreatic mass October 23, 2024 8:5 7am Hematuria October 23, 2024 8:5 7am Metastatic cancer to spine November 20, 2 025 8:59am Metastatic renal cell carcinoma to lung November 20, 2024 8:59am Pancreatic mass November 20, 2024 8:5 9am Hypothyroidism November 20, 2024 9:1 5am Metastatic renal cell carcinoma to lung November 20, 2024 9:15am Encounter for education November 20, 2024 9:15am Immunotherapy encounter November 20, 2024 9:15am Viral URI November 20, 2024 9:1 5am Chief Complaint Admit Date CHF, HIGH RISK MEDS August 08, 2024 1 0:01am 8 M FU August 15, 2024 9 :44am 4WKS NO LABS REVIEW ECHO August 15 025 11:54am 4WKS LABS September 12, 2024 1:09pm ONC/HEM September 12, 2024 1:45pm hematuria October 04, 2024 7:1 1am RENAL CANCER October 05, 2024 9:4 0am 4WKS LABS October 10, 2024 12: 55pm 2WKS NO LABS DR ESCOBEDO NOTE October 23, 2024 8:57am back pain November 09, 2024 1:4 4am n/v November 09, 2024 9:4 7am Malignant neoplasm of unspecified kidney , except November 14, 2024 9:18am Reason for Visit Admit Date CHF (congestive heart failure) July 272024 9:44am Essential (primary) hypertension August 15, 2024 9:44am Paroxysmal atrial fibrillation July 272024 9:44am CHF (congestive heart failure) July 272024 11:54am Metastatic renal cell 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 August 15, 2024 11:54am Pancreatic mass August 15, 2024 1 1:54am CHF (congestive heart failure) September 12, 2024 1:09pm Metastatic renal cell carcinoma to lung September 12, 2024 1:09pm Pancreatic mass September 12, 2024 1:09pm Hypothyroidism September 12, 2024 1:45pm Metastatic 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 September 12, 2024 1:45pm Encounter for education September 12 025 1:45pm Immunotherapy encounter September 12 025 1:45pm Viral URI September 12, 2024 1:45pm CHF (congestive heart failure) September 12:55pm Metastatic renal cell carcinoma to lung October 10, 2024 12:55pm Pancreatic mass October 10, 2024 12: 55pm Hematuria October 10, 2024 12: 55pm CHF (congestive heart failure) September 8:57am Metastatic renal cell carcinoma to lung October 23, 2024 8:57am Pancreatic mass October 23, 2024 8:5 7am Hematuria October 23, 2024 8:5 7am Chief Complaint Admit Date 4WKS LABS September 12, 2024 1:09pm hematuria October 04, 2024 7:1 1am RENAL CANCER October 05, 2024 9:4 0am 4WKS LABS October 10, 2024 12: 55pm [address] NO LABS DR ESCOBEDO NOTE October 23, 2024 8:57am back pain November 09, 2024 1:4 4am n/v November 09, 2024 9:4 7am Malignant neoplasm of unspecified kidney , except November 14, 2024 9:18am 4WKS LABS November 20, 2024 8:5 9am ONC/HEM November 20, 2024 9:1 5am CERVICAL PAIN November 20, 2024 11: 05am sob January 08, 2025 9:28 am Reason for Visit Admit Date CHF (congestive heart failure) September 12, 2024 1:09pm Metastatic renal cell 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 September 12, 2024 1:09pm Pancreatic mass September 12, 2024 1:09pm CHF (congestive heart failure) September 12:55pm Metastatic renal cell 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 October 10, 2024 12:55pm Pancreatic mass October 10, 2024 12: 55pm Hematuria October 10, 2024 12: 55pm CHF (congestive heart failure) September 8:57am Metastatic renal cell 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 October 23, 2024 8:57am Pancreatic mass October 23, 2024 8:5 7am Hematuria October 23, 2024 8:5 7am Metastatic cancer to spine November 20, 025 8:59am Metastatic renal cell carcinoma to lung November 20, 2024 8:59am Pancreatic mass November 20, 2024 8:5 9am Renal cell cancer November 20, 2024 9:1 5am Hypothyroidism November 20, 2024 9:1 5am Metastatic renal cell 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 November 20, 2024 9:15am Encounter for education November 20, 2024 9:15am Immunotherapy encounter November 20, 2024 9:15am Viral URI November 20, 2024 9:1 5am Family History No Family History Records Found Relationship Condition Age at Onset Recorded Date/T pj mother Diabetes mellitus Unknown Cardiac disease Unknown Kidney disorder Unknown Hypertension Unknown Cerebrovascular accident (CVA) Unknown father Cardiac disease Unknown Advance Directives No Advanced Directives Records Found Advance Directive Response Recorded Date/ Time Advance Directives Yes May 22, 2021 1:37pm Living Will No May 22 1:37pm Power of Blasting Entry Specialist No May 22, 2021 1:37pm Advance Directive Response Recorded Date/ Time Advance Directives on File No Octob er 2020 1:37pm Advance Directives Yes May 22, 2021 1:37pm Living Will Yes December 28, 2021 8 :02am Power of Blasting Entry Specialist Yes December 28, 2021 8:02am Advance Directive Response Recorded Date/ Time Advance Directives on File No Octob er 2020 1:37pm Name of Medical Power of Blasting Entry Specialist Jason Wright December 27, 2021 11:35am Advance Directives Yes May 22, 2021 1:37pm Living Will No January 03, 2022 11:49am Power of Blasting Entry Specialist No January 03 11:49am Advance Directive Response Recorded Date/ Time Advance Directives on File No Octob er 2020 1:37pm Name of Medical Power of Blasting Entry Specialist Jason Wright December 27, 2021 11:35am Name of Medical Power of Blasting Entry Specialist MELISSA WRIGHT, SON January 03, 2022 10:45pm Name of Medical Power of Blasting Entry Specialist Melissa January 17, 2022 3:25pm Name of Medical Power of Blasting Entry Specialist chung, EDUARDO Wright February 16, 2022 11:38am Advance Directives Yes May 22, 2021 1:37pm Living Will Yes February 16, 2022 11:38am Power of Blasting Entry Specialist Yes February 16 11:38am Advance Directive Response Recorded Date/ Time Advance Directives on File No Octob er 2020 1:37pm Name of Medical Power of Blasting Entry Specialist chung, EDUARDO Wright February 16, 2022 11:38am Advance Directives Yes May 22, 2021 1:37pm Living Will Yes February 16, 2022 11:38am Power of Blasting Entry Specialist Yes February 16 11:38am Advance Directive Response Recorded Date/ Time Advance Directives on File No Octob er 2020 12:37pm Advance Directives Yes May 22, 2021 12:37pm Living Will Yes February 16, 2022 10:38am Power of Blasting Entry Specialist Yes February 16 10:38am Advance Directive Response Recorded Date/ Time Advance Directives Yes May 22, 2021 12:37pm Living Will Yes February 16, 2022 10:38am Power of Blasting Entry Specialist Yes February 16 10:38am Advance Directive Response Recorded Date/ Time Advance Directives on File No Octob er 2020 1:37pm Advance Directives Yes May 22, 2021 1:37pm Living Will Yes February 16, 2022 11:38am Power of Blasting Entry Specialist Yes February 16 11:38am Advance Directive Response Recorded Date/ Time Living Will Yes February 16, 2022 11:38am Power of Blasting Entry Specialist Yes February 16 11:38am Living Will No April 26 8:33am Power of Blasting Entry Specialist No April 26 8:33am Advance Directives on File No Octob er 2020 1:37pm Living Will No May 22 1:37pm Power of Blasting Entry Specialist No May 22, 2021 1:37pm Living Will No October 04, 2024 8:11am Power of Blasting Entry Specialist No October 04 8:11am Advance Directives No April 26, 2024 8:33am Advance Directive Response Recorded Date/ Time Living Will Yes February 16, 2022 11:38am Do you have a Healthcare Power of Blasting Entry Specialist? Yes February 16, 2022 11:38am Advance Directives on File No Octob er 2020 1:37pm Living Will No May 22 1:37pm Do you have a Healthcare Power of Blasting Entry Specialist? No May 22, 2021 1:37pm Living Will No October 04, 2024 8:11am Do you have a Healthcare Power of Blasting Entry Specialist? No October 04, 2024 8:11am Advance Directives No April 26, 2024 8:33am Advance Directive Response Recorded Date/ Time Living Will Yes February 16, 2022 11:38am Do you have a Healthcare Power of Blasting Entry Specialist? Yes February 16, 2022 11:38am Advance Directives on File No Octob er 2020 1:37pm Living Will No May 22 1:37pm Do you have a Healthcare Power of Blasting Entry Specialist? No May 22, 2021 1:37pm Living Will Yes November 09, 2024 1:51am Do you have a Healthcare Power of Blasting Entry Specialist? Yes November 09, 2024 1:51am Name of Medical Power of Blasting Entry Specialist Melissa Wright November 09, 2024 1:51am Living Will No October 04, 2024 8:11am Do you have a Healthcare Power of Blasting Entry Specialist? No October 04, 2024 8:11am Advance Directives No April 26, 2024 8:33am Advance Directive Response Recorded Date/ Time Living Will Yes February 16, 2022 11:38am Do you have a Healthcare Power of Blasting Entry Specialist? Yes February 16, 2022 11:38am Advance Directives on File No Octob er 2020 1:37pm Living Will No May 22 1:37pm Do you have a Healthcare Power of Blasting Entry Specialist? No May 22, 2021 1:37pm Living Will Yes November 09, 2024 1:51am Do you have a Healthcare Power of Blasting Entry Specialist? Yes November 09, 2024 1:51am Name of Medical Power of Blasting Entry Specialist Melissa Wright November 09, 2024 1:51am Living Will No October 04, 2024 8:11am Do you have a Healthcare Power of Blasting Entry Specialist? No October 04, 2024 8:11am Living Will No November 09, 2024 11:00am Do you have a Healthcare Power of Blasting Entry Specialist? No November 09, 2024 11:00am Advance Directives No April 26, 2024 8:33am Advance Directive Response Recorded Date/ Time Living Will Yes February 16, 2022 11:38am Do you have a Healthcare Power of Blasting Entry Specialist? Yes February 16, 2022 11:38am Advance Directives on File No Octob er 2020 1:37pm Living Will No May 22 1:37pm Do you have a Healthcare Power of Blasting Entry Specialist? No May 22, 2021 1:37pm Living Will Yes November 09, 2024 1:51am Do you have a Healthcare Power of Blasting Entry Specialist? Yes November 09, 2024 1:51am Name of Medical Power of Blasting Entry Specialist Melissa Wright November 09, 2024 1:51am Living Will No October 04, 2024 8:11am Do you have a Healthcare Power of Blasting Entry Specialist? No October 04, 2024 8:11am Living Will No November 09, 2024 11:00am Do you have a Healthcare Power of Blasting Entry Specialist? No November 09, 2024 11:00am Do you have a Healthcare Power of Blasting Entry Specialist? No November 20, 2024 1:27pm Advance Directives No April 26, 2024 8:33am Advance Directive Response Recorded Date/ Time Advance Directives on File No 2020 1:37pm Living Will No May 22 1:37pm Do you have a Healthcare Power of Blasting Entry Specialist? No May 22, 2021 1:37pm Living Will Yes November 09, 2024 1:51am Do you have a Healthcare Power of Blasting Entry Specialist? Yes November 09, 2024 1:51am Name of Medical Power of Blasting Entry Specialist Melissa Nagyler November 09, 2024 1:51am Living Will No October 04, 2024 8:11am Do you have a Healthcare Power of Blasting Entry Specialist? No October 04, 2024 8:11am Living Will No November 09, 2024 11:00am Do you have a Healthcare Power of Blasting Entry Specialist? No November 09, 2024 11:00am Do you have a Healthcare Power of Blasting Entry Specialist? No November 20, 2024 1:27pm Do you have a Healthcare Power of Blasting Entry Specialist? Yes January 08, 2025 9:34am Name of Medical Power of Blasting Entry Specialist Melissa January 08, 2025 9:34am Advance Directives No April 26, 2024 8:33am Date Activated Date Inactivated Comments 01/09/2025 4:53 AM Date Activated Date Inactivated Comments 01/09/2025 2:11 AM 01/09/2025 4:53 AM Summary Purpose Additional Source Comments Goals (unrecognized section and content) Goals may be documented in a n alternate sectionGoals may be documented in an alternate sectionGoals may be documented in an alternate sectionGoals may be documented in an alternate sectionGoals may be documented in an alternate sectionGoals may be documented in an alternate sectionGoals may be documented in an alternate sectionGoals may be documented in an alternate sectionGoals may be documented in an alternate sectionGoals may be documented in an alternate sectionGoals may be documented in an alternate sectionGoals may be documented in an alternate sectionGoals may be documented in an alternate sectionGoals may be documented in an alternate sectionGoals may be documented in an alternate sectionGoals may be documented in an alternate sectionGoals may be documented in an alternate sectionGoals may be documented in an alternate sectionGoals may be documented in an alternate sectionGoals may be documented in an alternate section Care Teams (unrecognized sec tion and content) Team Status: Active Member Role Status Dates Dr. Sam Del Toro DO Family Provider Active Dr. Sam Del Toro DO Primary Care Provider Active Team Status: Inactive Member Role Status Dates Dr. Sam Del Toro DO Primary Care Provider, Referrin g Provider Active Dr. Jeffrey Kuhn MD Attending Provider Active Team Status: Inactive Member Role Status Dates Dr. Sam Del Toro DO Primary Care Provider, Referrin g Provider Active Mary Ann JORDAN PABenjaminC Attending Provider Active Team Status: Active Member Role Status Dates Dr. Sam Del Toro DO Primary Care Provider, Family P rovider Active Dr. Mo Escobedo MD Referring Provider Active Dr. Jeffrey Kuhn MD Attending Provider Active Team Status: Inactive Member Role Status Dates Dr. Sam Del Toro DO Primary Care Provider Active Dr. Lana Tucker DO Attending Provider Active Team Status: Inactive Member Role Status Dates Dr. Sam Del Toro DO Primary Care Provider Active Dr. Jeffrey Kuhn MD Attending Provider, Referring Pro vider Active Team Status: Inactive Member Role Status Dates Dr. Sam Del Toro DO Primary Care Provider, Attendin g Provider Active Team Status: Inactive Member Role Status Dates Dr. Sam Del Toro DO Primary Care Provider Active Dr. Lana Tucker DO Attending Provider, Referring P rovider Active Team Status: Active Member Role Status Dates Dr. Sam Del Toro DO Primary Care Provider Active Dr. Jeffrey Kuhn MD Attending Provider Active Team Status: Inactive Member Role Status Dates Dr. Sam Del Toro DO Primary Care Provider Active Dr. Jeffrey Kuhn MD Attending Provider Active Team Status: Inactive Member Role Status Dates Dr. Sam Del Toro DO Primary Care Provider Active Dr. Lana Tucker DO Attending Provider, Referring P rovider Active Dr. Patrice Loja MD Other Provider Active Team Status: Inactive Member Role Status Dates Dr. Sam Del Toro DO Primary Care Provider, Referrin g Provider Active Dr. Patrice Loja MD Attending Provider Active Team Status: Active Member Role Status Dates Dr. Sam Del Toro DO Primary Care Provider Active Dr. Patrice Loja MD Attending Provider Active Team Status: Active Member Role Status Dates Dr. Sam Del Toro DO Primary Care Provider Active Team Status: Inactive Member Role Status Dates Dr. Sam Del Toro DO Primary Care Provider Active Start: June 07, 2024 End: June 07, 2024 Dr. Sam Del Toro DO Referring Provider Active Start: June 07, 2024 End: June 07, 2024 Dr. Jeffrey Kuhn MD Attending Provider Active S tart: June 07, 2024 End: June 07, 2024 Team Status: Inactive Member Role Status Dates Dr. Sam Del Toro DO Primary Care Provider Active Start: July 04, 2024 End: July 04, 2024 Dr. Sam Del Toro DO Referring Provider Active Start: July 04, 2024 End: July 04, 2024 Dr. Jeffrey Kuhn MD Attending Provider Active S tart: July 04, 2024 End: July 04, 2024 Team Status: Inactive Member Role Status Dates Dr. Sam Del Toro DO Primary Care Provider Active Start: July 11, 2024 End: July 11, 2024 Dr. Jeffrey Kuhn MD Attending Provider Active S tart: July 11, 2024 End: July 11, 2024 Dr. Jeffrey Kuhn MD Referring Provider Active S tart: July 11, 2024 End: July 11, 2024 Team Status: Active Member Role Status Dates Dr. Sam Del Toro DO Primary Care Provider Active Start: July 11, 2024 Dr. Patrice Loja MD Attending Provider Active S tart: July 11, 2024 Team Status: Inactive Member Role Status Dates Dr. Sam Del Toro DO Primary Care Provider Active Start: July 13, 2024 End: July 13, 2024 Dr. Sam Del Toro DO Referring Provider Active Start: July 13, 2024 End: July 13, 2024 Dr. Jeffrey Kuhn MD Attending Provider Active S tart: July 13, 2024 End: July 13, 2024 Team Status: Inactive Member Role Status Dates Dr. Sam Del Toro DO Primary Care Provider Active Start: August 08, 2024 End: August 08, 2024 Dr. Jeffrey Kuhn MD Attending Provider Active S tart: August 08, 2024 End: August 08, 2024 Dr. Jeffrey Kuhn MD Referring Provider Active S tart: August 08, 2024 End: August 08, 2024 Team Status: Active Member Role Status Dates Dr. Sam Del Toro DO Primary Care Provider Active Start: August 08, 2024 Dr. Patrice Loja MD Attending Provider Active S tart: August 08, 2024 Team Status: Inactive Member Role Status Dates Dr. Sam Del Toro DO Primary Care Provider Active Start: August 15, 2024 End: August 15, 2024 Dr. Sam Del Toro DO Referring Provider Active Start: August 15, 2024 End: August 15, 2024 Jeremy Lin NP, PLASTER HELPER-C Attending Provider Active S tart: August 15, 2024 End: August 15, 2024 Team Status: Inactive Member Role Status Dates Dr. Sam Del Toro DO Primary Care Provider Active Start: August 15, 2024 End: August 15, 2024 Dr. Sam Del Toro DO Referring Provider Active Start: August 15, 2024 End: August 15, 2024 Dr. Jeffrey Kuhn MD Attending Provider Active S tart: August 15, 2024 End: August 15, 2024 Team Status: Inactive Member Role Status Dates Dr. Sam Del Toro DO Primary Care Provider Active Start: September 12, 2024 End: September 12, 2024 Dr. Sam Del Toro DO Referring Provider Active Start: September 12, 2024 End: September 12, 2024 Dr. Mitchel Pereira MD Attending Provider Active Start: September 12, 2024 End: September 12, 2024 Team Status: Active Member Role Status Dates Dr. Sam Del Toro DO Primary Care Provider Active Start: September 12, 2024 Dr. Sam Del Toro DO Family Provider Active St art: September 12, 2024 Dr. Mo Escobedo MD Referring Provider Active Start: September 12, 2024 Dr. Jeffrey Kuhn MD Attending Provider Active S tart: September 12, 2024 Team Status: Inactive Member Role Status Dates Dr. Sam Del Toro DO Primary Care Provider Active Start: October 04, 2024 End: October 04, 2024 Dr. Moody Rodriguez DO Emergency Provider Active Start: October 04, 2024 End: October 04, 2024 Team Status: Inactive Member Role Status Dates Dr. Sam Del Toro DO Primary Care Provider Active Start: October 05, 2024 End: October 05, 2024 Dr. Mitchel Pereira MD Attending Provider Active Start: October 05, 2024 End: October 05, 2024 Dr. Mitchel Pereira MD Referring Provider Active Start: October 05, 2024 End: October 05, 2024 Team Status: Active Member Role Status Dates Dr. Sam Del Toro DO Primary Care Provider Active Start: October 05, 2024 Dr. Patrice Loja MD Attending Provider Active S tart: October 05, 2024 Team Status: Inactive Member Role Status Dates Dr. Sam Del Toro DO Primary Care Provider Active Start: October 10, 2024 End: October 10, 2024 Dr. Sam Del Toro DO Referring Provider Active Start: October 10, 2024 End: October 10, 2024 Dr. Jeffrey Kuhn MD Attending Provider Active S tart: October 10, 2024 End: October 10, 2024 Team Status: Inactive Member Role Status Dates Dr. Sam Del Toro DO Primary Care Provider Active Start: October 04, 2024 End: October 04, 2024 Dr. Moody Rodriguez DO Attending Provider Active Start: October 04, 2024 End: October 04, 2024 Dr. Moody Rodriguez DO Emergency Provider Active Start: October 04, 2024 End: October 04, 2024 Team Status: Inactive Member Role Status Dates Dr. Sam Del Toro DO Primary Care Provider Active Start: October 23, 2024 End: October 23, 2024 Dr. Sam Del Toro DO Referring Provider Active Start: October 23, 2024 End: October 23, 2024 Dr. Jeffrey Kuhn MD Attending Provider Active S tart: October 23, 2024 End: October 23, 2024 Team Status: Inactive Member Role Status Dates Dr. Sam Del Toro DO Primary Care Provider Active Start: November 09, 2024 End: November 09, 2024 Dr. Ana Flores DO Emergency Provider Active Start: November 09, 2024 End: November 09, 2024 Team Status: Inactive Member Role Status Dates Dr. Sam Del Toro DO Primary Care Provider Active Start: November 09, 2024 End: November 09, 2024 Dr. Tayo Cannon DO Emergency Provider Active S tart: November 09, 2024 End: November 09, 2024 Team Status: Inactive Member Role Status Dates Dr. Sam Del Toro DO Primary Care Provider Active Start: November 09, 2024 End: November 09, 2024 Dr. Ana Flores DO Attending Provider Active Start: November 09, 2024 End: November 09, 2024 Dr. Ana Flores DO Emergency Provider Active Start: November 09, 2024 End: November 09, 2024 Team Status: Inactive Member Role Status Dates Dr. Sam Del Toro DO Primary Care Provider Active Start: November 09, 2024 End: November 09, 2024 Dr. Tayo Cannon DO Attending Provider Active S tart: November 09, 2024 End: November 09, 2024 Dr. Tayo Cannon DO Emergency Provider Active S tart: November 09, 2024 End: November 09, 2024 Team Status: Inactive Member Role Status Dates Dr. Sam Del Toro DO Primary Care Provider Active Start: November 14, 2024 End: November 14, 2024 Dr. Mo Escobedo MD Attending Provider Active Start: November 14, 2024 End: November 14, 2024 Dr. Mo Escobedo MD Referring Provider Active Start: November 14, 2024 End: November 14, 2024 Team Status: Inactive Member Role Status Dates Dr. Sam Del Toro DO Primary Care Provider Active Start: November 20, 2024 End: November 20, 2024 Dr. Sam Del Toro DO Referring Provider Active Start: November 20, 2024 End: November 20, 2024 Dr. Jeffrey Kuhn MD Attending Provider Active S tart: November 20, 2024 End: November 20, 2024 Team Status: Active Member Role Status Dates Dr. Sam Del Toro DO Primary Care Provider Active Start: November 20, 2024 Dr. Sam Del Toro DO Family Provider Active St art: November 20, 2024 Dr. Mo Escobedo MD Referring Provider Active Start: November 20, 2024 Dr. Jeffrey Kuhn MD Attending Provider Active S tart: November 20, 2024 Team Status: Inactive Member Role Status Dates Dr. Sam Del Toro DO Primary Care Provider Active Start: November 20, 2024 End: November 20, 2024 Dr. Pascual Meza DO Emergency Provider Active Start: November 20, 2024 End: November 20, 2024 Telephone Advice Nurse Relationship Specialty Start Date End Date Sam Del ToroDO [address] [place] [address] [place] [phone] PCP - General Family Medicine 11/23/24 Ruby Rojas, [employer] DBA [address] [place] [address] Certified Nurse Practitioner 11/22/24 Jenn Lehman, RN Registered Nurse 11/22/24 Ruby Rojas, [employer] DBA [address] [place] [address] [place], [place] [id number] Referring Provider Certified Nurse Practitioner 11/22/24 Telephone Advice Nurse Relationship Specialty Start Date End Date Alverto Sam MelendezDO [address] [place] [address] [place] [phone] PCP - General Family Medicine 11/23/24 Ruby Rojas, [employer] DBA [address] [place] [address] Certified Nurse Practitioner 11/22/24 Jenn Lehman, RN Registered Nurse 11/22/24 Ruby Rojas, [employer] DBA [address] [place] [address] [place], [place] [id number] Referring Provider Certified Nurse Practitioner 11/22/24 Telephone Advice Nurse Relationship Specialty Start Date End Date Sam Del ToroDO [address] [place] [address] [place] [address] PCP - General Family Medicine 11/23/24 Ruby Rojas, [employer] DBA [address] [place] [address] Certified Nurse Practitioner 11/22/24 Jenn Lehman, RN Registered Nurse 11/22/24 uRby Rojas, [employer] DBA [address] [place] [address] [place], [place] [id number] Referring Provider Certified Nurse Practitioner 11/22/24 Telephone Advice Nurse Relationship Specialty Start Date End Date Sam Del Toro [address] [place] [address] [place] [address] PCP - General Family Medicine 11/23/24 Ruby Rojas, [employer] DBA [address] [place] [address] Certified Nurse Practitioner 11/22/24 Jenn Lehman, RN Registered Nurse 11/22/24 Ruby Rojas, [employer] DBA [address] [place] [address] [place], [place] [id number] Referring Provider Certified Nurse Practitioner 11/22/24 Jeffrey Kuhn MD [address] [place], [place] [id number] Oncologist Hematology 12/01/24 Telephone Advice Nurse Relationship Specialty Start Date End Date Sam Del ToroDO [address] [place] [address] [place] [address] PCP - General Family Medicine 11/23/24 Ruby Rojas, [employer] DBA [address] [place] [phone] Certified Nurse Practitioner 11/22/24 Jenn Lehman, RN Registered Nurse 11/22/24 Ruby Rojas, [employer] DBA [address] [facility] [address] [place], [place] [id number] Referring Provider Certified Nurse Practitioner 11/22/24 Jeffrey Kuhn MD [address] [place], [place] [phone] Oncologist Hematology 12/01/24 Telephone Advice Nurse Relationship Specialty Start Date End Date Sam Del Toro DO [address] [place] [address] [place] [phone] PCP - General Family Medicine 11/23/24 Ruby Rojas, [employer] DBA [address] [place] [phone] Certified Nurse Practitioner 11/22/24 Jenn Lehman, RN Registered Nurse 11/22/24 Ruby Rojas, [employer] DBA [address] [facility] [address] [place], [place] [id number] Referring Provider Certified Nurse Practitioner 11/22/24 Jeffrey Kuhn MD [address] [place], [place] [id number] Oncologist Hematology 12/01/24 Telephone Advice Nurse Relationship Specialty Start Date End Date Sam Del Toro DO [address] [place] [address] [place] [phone] PCP - General Family Medicine 11/23/24 Ruby Rojas, [employer] DBA [address] [place] [address] Certified Nurse Practitioner 11/22/24 Jenn Lehman, RN Registered Nurse 11/22/24 Ruby Rojas, [employer] DBA [address] [place] [address] [place], [place] [phone] Referring Provider Certified Nurse Practitioner 11/22/24 Telephone Advice Nurse Relationship Specialty Start Date End Date AlvertoSam willisDO [address] [place] [address] [place] [address] PCP - General Family Medicine 11/23/24 Ruby Rojas, [employer] DBA [address] [place] [address] Certified Nurse Practitioner 11/22/24 Jenn Lemhan, RN Registered Nurse 11/22/24 Ruby Rojas, [employer] DBA [address] [facility] [address] [place], [place] [phone] Referring Provider Certified Nurse Practitioner 11/22/24 Jeffrey Kuhn MD [address] [place] [phone] Oncologist Hematology 12/01/24 Telephone Advice Nurse Relationship Specialty Start Date End Date AlvertoSam willis DO Al [address] [place] [address] [place] [address] PCP - General Family Medicine 11/23/24 Ruby Rojas, [employer] DBA [address] [place] [address] Certified Nurse Practitioner 11/22/24 Jenn Lehman, RN Registered Nurse 11/22/24 Ruby Rojas, [employer] DBA [address] [facility] [address] [place], [place] [address] Referring Provider Certified Nurse Practitioner 11/22/24 Jeffrey Kuhn MD [address] [place] [address] Oncologist Hematology 12/01/24 Telephone Advice Nurse Relationship Specialty Start Date End Date Sam Del ToroDO [address] [place] [address] [place] [address] PCP - General Family Medicine 11/23/24 Ruby Rojas, [employer] DBA [address] [place] [address] Certified Nurse Practitioner 11/22/24 Jenn Lehman, RN Registered Nurse 11/22/24 Ruby Rojas, [employer] DBA [address] [facility] [address] [place], [place] [phone] Referring Provider Certified Nurse Practitioner 11/22/24 Jeffrey Kuhn MD [address] [place], [place] [phone] Oncologist Hematology 12/01/24 Telephone Advice Nurse Relationship Specialty Start Date End Date Sam Del ToroDO [address] [place] [address] [place] [address] PCP - General Family Medicine 11/23/24 Ruby Rojas, [employer] DBA [address] [place] [address] Certified Nurse Practitioner 11/22/24 Jenn Lehman, RN Registered Nurse 11/22/24 Ruby Rojas, [employer] DBA [address] [facility] [address] [place], [place] [address] Referring Provider Certified Nurse Practitioner 11/22/24 Jeffrey Kuhn MD [address] [place] [address] Oncologist Hematology 12/01/24 Telephone Advice Nurse Relationship Specialty Start Date End Date Sam Del ToroDO [address] [place] [address] [place] [phone] PCP - General Family Medicine 11/23/24 Ruby Rojas, [employer] DBA [address] [place] [address] Certified Nurse Practitioner 11/22/24 Jenn Lehman, RN Registered Nurse 11/22/24 Ruby Rojas, [employer] DBA [address] [facility] 1 [place], [place] [phone] Referring Provider Certified Nurse Practitioner 11/22/24 Jeffrey Kuhn MD [address] [place], [place] [address] Oncologist Hematology 12/01/24 Telephone Advice Nurse Relationship Specialty Start Date End Date Sam Del ToroDO [address] [place] [address] [place] [phone] PCP - General Family Medicine 11/23/24 Ruby Rojas, [employer] DBA [address] [place] [address] Certified Nurse Practitioner 11/22/24 Jenn Lehman, RN Registered Nurse 11/22/24 Ruby Rojas, [employer] DBA [address] [facility] 1 [place], [place] [address] Referring Provider Certified Nurse Practitioner 11/22/24 Jeffrey Kuhn MD [address] [place] [address] Oncologist Hematology 12/01/24 Telephone Advice Nurse Relationship Specialty Start Date End Date Sam Del Toro DO [address] [facility] [place] [address] [place] [address] PCP - General Family Medicine 11/23/24 Ruby Rojas, [employer] DBA [address] [place] [address] Certified Nurse Practitioner 11/22/24 Jenn Lehman, RN Registered Nurse 11/22/24 Ruby Rojas, [employer] DBA [address] [facility] [address] [place], [place] [address] Referring Provider Certified Nurse Practitioner 11/22/24 Jeffrey Kuhn MD [address] [place] [address] Oncologist Hematology 12/01/24 Team Status: Inactive Member Role Status Dates Dr. Sam Del Toro DO Primary Care Provider Active Start: November 20, 2024 End: November 20, 2024 Dr. Pascual Meza DO Attending Provider Active Start: November 20, 2024 End: November 20, 2024 Dr. Pascual Meza DO Emergency Provider Active Start: November 20, 2024 End: November 20, 2024 Team Status: Inactive Member Role Status Dates Dr. Sam Del Toro DO Primary Care Provider Active Start: January 08, 2025 End: January 08, 2025 Dr. Mya Haile DO Emergency Provider Activ e Start: January 08, 2025 End: January 08, 2025 Telephone Advice Nurse Relationship Specialty Start Date End Date Sam Del Toro DO [address] [place] [address] [place] [phone] PCP - General Family Medicine 11/23/24 Ruby Rojas, [employer] DBA [address] [place] [address] Certified Nurse Practitioner 11/22/24 Jenn Lehman, RN Registered Nurse 11/22/24 Ruby Rojas, [employer] DBA [address] [place] [address] [place], [place] [address] Referring Provider Certified Nurse Practitioner 11/22/24 Jeffrey Kuhn MD [address] [place] [address] Oncologist Hematology 12/01/24 Telephone Advice Nurse Relationship Specialty Start Date End Date Sam Del Toro DO [address] [place] [address] [place] [phone] PCP - General Family Medicine 11/23/24 Ruby Rojas, [employer] DBA [address] [place] [address] Certified Nurse Practitioner 11/22/24 Jenn Lehman, RN Registered Nurse 11/22/24 Ruby Rojas, CLOTH BEAMER-SENIOR [facility] [address] [place] [address] [place] [address] Referring Provider Certified Nurse Practitioner 11/22/24 Jeffrey Kuhn MD [address] [place] [address] Oncologist Hematology 12/01/24 Tiarra Fiore MD [address] [place] [id number] Neurosurgeon Neurological Surgery 01/11/25 Reason for Visit (unrecogniz ed section and content) Reason Comments New Patient Specialty Diagnoses / Procedures Referred By Fritz clements Referred To Contact Neurologic Surgery Diagnoses 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, except renal pelvis Ruby Rojas, CLOTH BEAMER-SENIOR [employer] [facility] [address] [facility] [place] [address] [place] [address] Phone: tel: Tiarra Fiore MD [address] [place] [id number] Phone: tel: fax: Referral ID Status Reason Start Date Expiration Date Visits Requested Visits Authorized [id number] New Request Surgical Evaluation 11/22/2024 12/17/2025 1 1 Reason Comments Follow-up Reason Comments Continuity Of Care Reason Comments Consult Specialty Diagnoses / Procedures Referred By Fritz clements Referred To Contact Radiation Oncology Diagnoses Metastatic cancer to spine Tiarra Fiore MD [address] [place] [id number] Phone: tel: fax: Referral ID Status Reason Start Date Expiration Date V isits Requested Visits Authorized [id number] New Request 11/23/2024 12/18/2025 1 1 Reason Comments Other Scheduled Active and Recently Administ ered Medications (unrecognized section and content) Medication Order 01/07/2025 01/08/2025 01/09/2025 Allopurinol (ZYLOPRIM) tablet 100 mg 100 mg, Oral, DAILY, First dose on Wed01/09/25 at 0900, Until Discontinued aspirin chewable tablet 81 mg 81 mg, Oral, DAILY, First dose on Wed01/09/25 at 0900, Until Discontinued dexAMETHasone (DECADRON) tablet 4 mg 4 mg, Oral, DAILY, First dose on Wed01/09/25 at 0900, Until Discontinued Diltiazem (CARDIZEM CD) capsule XL 120 mg 120 mg, Oral, EVERY 12 HOURS, First dose on Wed01/09/25 at 0900, Until Discontinued, Slow release product. Do not chew or crush. Finasteride (PROSCAR) tablet 5 mg 5 mg, Oral, DAILY, First dose on Wed01/09/25 at 0900, Until Discontinued, Do not split, break, crush or open this medication. Contact pharmacy if altered route or dose needed. Heparin injection 5,000 Units 5,000 Units, Subcutaneous, EVERY 8 HOURS (0800/1600/2200), First dose on Wed01/09/25 at 0800, Until Discontinued Insulin lispro (HUMALOG) injection(Linked Group 1) Subcutaneous, 4 TIMES DAILY WITH MEALS & AT BEDTIME, First dose on Wed01/09/25 at 0800, Until Discontinued, Insulin to carb ratio: Standard: 1 unit insulin = 10 grams carbs every meal and at bedtime Correction Factor: 151-200 = 1 unit; 201-250 = 2 units; 251-300 = 3 units; 301-350 = 4 units; 351-400 = 5 units; Kwikpen: Prime pen before each injection; refer to Pen Priming and Care Handout for further details. Warning! Confirm patient. Insulin pen is for labeled individual patient use ONLY. Levothyroxine (SYNTHROID) tablet 125 mcg 125 mcg, Oral, DAILY, First dose on Wed01/09/25 at 0900, Until Discontinued, Hold tube feedings for 1 hour before and 1 hour after medication administration. Metoprolol (LOPRESSOR) tablet 100 mg 100 mg, Oral, 2 TIMES DAILY, First dose on Wed01/09/25 at 0900, Until Discontinued Pantoprazole (PROTONIX) tablet DR 40 mg 40 mg, Oral, DAILY, First dose on Wed01/09/25 at 0900, Until Discontinued, Swallow whole; do not crush or chew., Indications: Continuation of Home Therapy PRN Medication Order 01/07/2025 01/08/2025 01/09/2025 Acetaminophen (TYLENOL) tablet 650 mg 650 mg, Oral, EVERY 6 HOURS NEEDED, Starting on Wed01/09/25 at 0210, Until Wed01/09/25 at 0440, Mild Pain, Maximum dose of acetaminophen is 4000 mg from all sources in 24 hours. alum/mag hydrox.-simethicone oral suspension 30 mL 30 mL, Oral, EVERY 6 HOURS NEEDED, Starting on Wed01/09/25 at 0210, Until Wed01/09/25 at 439, Indigestion, Per 5 mL is equivalent to: (Alum-Mag Hydroxide 200-225 mg and Simethicone 20 mg) and (Alum-Mag Hydroxide 200-200 mg and Simethicone 20 mg) Dextrose 50% injection 7.5-25 g 7.5-25 g, Intravenous, ADMINISTER DIRECTED, Starting on Wed01/08/25 at 2352, Until Wed01/09/25 at 0440, Blood glucose <80 mg/dL, Administer Dextrose 50% as directed per Hypoglycemia in Non- Adults Clinical Practice Guideline for blood glucose: 60-79mg/dL administer 7.5 gm (15ml), 45-59mg/dL administer 12.5 gm (25ml), less than 45mg/dL administer 25gm (50ml) ++ If additional dextrose 50% needed, contact pharmacy or obtain from [employer] ++ 0053 (Not Given - Pr ovider: Luda Membreno RN - Reason: Order Parameters not met - Comment: Not given, BS improves with oral intake) Dextrose 50% injection 7.5-25 g(Linked Group 1) 7.5-25 g, Intravenous, ADMINISTER DIRECTED, Starting on Wed01/09/25 at 0211, Until Wed01/09/25 at 0440, Blood glucose <80 mg/dL, For patients who are not alert, are NPO, or are on IV insulin infusion administer as directed per Hypoglycemia in Non- Adults Clinical Practice Guideline. For Blood Glucose: 60-79 mg/dL administer 7.5 gm (15ml); 45-59 mg/dL administer 12.5 gm (25ml); less than 45mg/dL administer 25gm (50ml). ++ If additional dextrose 50% needed, contact pharmacy or obtain from [employer] ++ 0235 (Given - Provid er: Grady Dennis RN)0412 (Given - Provider: Luda Membreno RN - Comment: BS 68) glucose (GLUTOSE) 40 % oral gel 1-2 Tube 1-2 Tube, Oral, ADMINISTER DIRECTED, Starting on Wed01/08/25 at 2352, Until Wed01/09/25 at 0440, Blood glucose <80 mg/dL, For patients who are alert, able to tolerate PO intake and with intact cognitive status administer as directed per Hypoglycemia in Non- Adults Clinical Practice Guideline. For Blood Glucose: 60-79 mg/dL administer 1 tube; 45-59 mg/dl administer 1.5 tubes; less than 45 mg/dL administer 2 tubes. Each tube of 37.5g delivers 15g of carbohydrate. glucose (GLUTOSE) 40 % oral gel 1-2 Tube(Linked Group 1) 1-2 Tube, Oral, ADMINISTER DIRECTED, Starting on Wed01/09/25 at 0211, Until Wed01/09/25 at 044, Blood glucose <80 mg/dL, For patients who are alert, able to tolerate PO intake and with intact cognitive status administer as directed per Hypoglycemia in Non- Adults Clinical Practice Guideline. For Blood Glucose: 60-79 mg/dL administer 1 tube; 45-59 mg/dl administer 1.5 tubes; less than 45 mg/dL administer 2 tubes. Each tube of 37.5g delivers 15g of carbohydrate. Insulin lispro (HUMALOG) injection(Linked Group 1) Subcutaneous, NEEDED, Starting on Wed01/09/25 at 0211, Until Wed01/09/25 at 439, Other, As needed for snacks, Insulin to carb ratio: Standard: 1 unit insulin = 10 grams carbs Correction Factor: not to be used with this order. Kwikpen: Prime pen before each injection; refer to Pen Priming and Care Handout for further details. Warning! Confirm patient. Insulin pen is for labeled individual patient use ONLY. Sodium chloride 0.9% IV solution 250 mL Intravenous, at 20 mL/hr, NEEDED, Starting on Wed01/09/25 at 0210, Until Wed01/09/25 at 044, Carrier Fluid - See Admin. Inst, 250mL 0.9NS to be used as carrier fluid for intermittent small volume or piggyback medication administration as needed. Infusion rate of the carrier fluid should be set at 20 mL/hr unless the rate as the intermittent medication is less than 20 mL/hr. For intermittent medications with a rate less than 20 mL/hr set the carrier fluid at that rate of the intermittent or piggy back medication. Linked Groups Order Group 1: Insulin lispro (HUMALOG) injectionJump to med Subcutaneous, 4 TIMES DAILY WITH MEALS & AT BEDTIME, First dose on Wed01/09/25 at 0800, Until Discontinued, Insulin to carb ratio: Standard: 1 unit insulin = 10 grams carbs every meal and at bedtime Correction Factor: 151-200 = 1 unit; 201-250 = 2 units; 251-300 = 3 units; 301-350 = 4 units; 351-400 = 5 units; Kwikpen: Prime pen before each injection; refer to Pen Priming and Care Handout for further details. Warning! Confirm patient. Insulin pen is for labeled individual patient use ONLY. And Insulin lispro (HUMALOG) injectionJump to med Subcutaneous, NEEDED, Starting on Wed01/09/25 at 0211, Until Wed01/09/25 at 0440, Other, As needed for snacks, Insulin to carb ratio: Standard: 1 unit insulin = 10 grams carbs Correction Factor: not to be used with this order. Kwikpen: Prime pen before each injection; refer to Pen Priming and Care Handout for further details. Warning! Confirm patient. Insulin pen is for labeled individual patient use ONLY. And BLOOD GLUCOSE (POC DEVICE) (CANCELED) Routine, 4 TIMES DAILY BEFORE MEALS & AT BEDTIME, First occurrence on Wed01/09/25 at 0745, If any Blood Glucose (POC) is greater than 300mg/dl, then repeat Blood Glucose (POC) in 2 hours. If the initial blood glucose was greater than 300mg/dl and if second blood glucose is greater than 200md/dl, then notify Garment Alteration Examiner. And BLOOD GLUCOSE (POC DEVICE) (CANCELED) Routine, DIRECTED, Starting on Wed01/09/25 at 0211, Until Specified, For all Blood Glucose LESS THAN 80 mg/dL, treat per Hypoglycemia in Non- Adults Clinical Practice Guideline (CPG) and recheck glucose 15 min after treatment. Repeat per CPG until glucose GREATER THAN 80 mg/dL. Once glucose IS GREATER THAN 80 mg/dL, recheck Blood Glucose every 1 hour x2, then resume as previously ordered. For Blood Glucose LESS THAN 80 mg/dL on admission OR LESS than 45 mg/dL at any time, obtain POC Blood Glucose every 4 hours for 6 occurrences AFTER treating per CPG. Obtain blood glucose for symptoms of hypoglycemia: sweating, shaking, fatigue, rapid pulse, slow thinking & dizziness. Notify physician w/results. Obtain blood glucose for symptoms of hyperglycemia: excessive thirst, blurred vision, excessive urination & tiredness. Notify physician w/results. If patient NPO, obtain POC Blood Glucose prior to administration of any insulin products. And COMMUNICATION ORDER FOR NURSING CARE: For Blood Glucose LESS THAN 80 mg/dl (CANCELED) Routine, CONTINUOUS, Starting on Wed01/09/25 at 0212, Until Specified, For Blood Glucose LESS THAN 80 mg/dl follow Hypoglycemia in Non- Adults Clinical Practice Guideline (CPG) And Dextrose 50% injection 7.5-25 gJump to med 7.5-25 g, Intravenous, ADMINISTER DIRECTED, Starting on Wed01/09/25 at 0211, Until Wed01/09/25 at 0440, Blood glucose <80 mg/dL, For patients who are not alert, are NPO, or are on IV insulin infusion administer as directed per Hypoglycemia in Non- Adults Clinical Practice Guideline. For Blood Glucose: 60-79 mg/dL administer 7.5 gm (15ml); 45-59 mg/dL administer 12.5 gm (25ml); less than 45mg/dL administer 25gm (50ml). ++ If additional dextrose 50% needed, contact pharmacy or obtain from crash cart ++ And glucose (GLUTOSE) 40 % oral gel 1-2 TubeJump to med 1-2 Tube, Oral, ADMINISTER DIRECTED, Starting on Wed01/09/25 at 0211, Until Wed01/09/25 at 0440, Blood glucose <80 mg/dL, For patients who are alert, able to tolerate PO intake and with intact cognitive status administer as directed per Hypoglycemia in Non- Adults Clinical Practice Guideline. For Blood Glucose: 60-79 mg/dL administer 1 tube; 45-59 mg/dl administer 1.5 tubes; less than 45 mg/dL administer 2 tubes. Each tube of 37.5g delivers 15g of carbohydrate. And NOTIFY PHYSICIAN, Blood Glucose LESS THAN 80 mg/dl (CANCELED) Routine, CONTINUOUS, Starting on Wed01/09/25 at 0212, Until Specified, Who to Notify: Garment Alteration Examiner, For all Blood Glucose LESS THAN 80 mg/dl, notify Garment Alteration Examiner after treatment per Hypoglycemia in Non- Adults Clinical Practice Guideline And Carbohydrate counts with meals (CANCELED) Routine, CONTINUOUS, Starting on Wed01/09/25 at 0212, Until Specified, Carbohydrate counts are to be done after each patient meal and with snack. Scheduled Medication Order 01/09/2025 01/10/2025 01/11/2025 Allopurinol (ZYLOPRIM) tablet 100 mg 100 mg, Oral, DAILY, First dose (after last modification) on Wed01/09/25 at 0900, Until Discontinued 36 (Given - Provider: Chris Piper RN) 09 (Given - Provider: Elena Ritchie RN) 08 (Given - Provider: Elena Ritchie RN) aspirin chewable tablet 81 mg 81 mg, Oral, DAILY, First dose (after last modification) on Wed01/09/25 at 0900, Until Discontinued 936 (Given - Provider: Chris Piper RN) 906 (Given - Provider: Elena Ritchie RN) 08 (Given - Provider: Elena Ritchie RN) dexAMETHasone (DECADRON) tablet 4 mg 4 mg, Oral, DAILY, First dose (after last modification) on Wed01/09/25 at 0900, Until Discontinued 935 (Given - Provider: Chris Piper RN) 09 (Given - Provider: Elena Ritchie RN) 08 (Given - Provider: Elena Ritchie RN) Diltiazem (CARDIZEM CD) capsule XL 120 mg 120 mg, Oral, EVERY 12 HOURS, First dose (after last modification) on Wed01/09/25 at 0900, Until Discontinued, Slow release product. Do not chew or crush. 36 (Given - Provider: Chris Piper RN)2112 (Given - Provider: Dia Ramirez RN) 906 (Given - Provider: Elena Ritchie RN)2017 (Given - Provider: Hao Peña RN) 08 (Given - Provider: Elena Ritchie RN) Finasteride (PROSCAR) tablet 5 mg 5 mg, Oral, DAILY, First dose (after last modification) on Wed01/09/25 at 0900, Until Discontinued, Do not split, break, crush or open this medication. Contact pharmacy if altered route or dose needed. 0937 (Given - Provider: Chris Piper RN) 0907 (Given - Provider: Elena Ritchie, MAYNOR) 0805 (Given - Provider: Elena Ritchie RN) Heparin injection 5,000 Units 5,000 Units, Subcutaneous, EVERY 8 HOURS (0800/1600/2200), First dose (after last modification) on Wed01/09/25 at 0800, Until Discontinued 0936 (Given - Provider: Chris Piper RN)1653 (Given - Provider: Dia Ramirez RN)1732 (Held by provider - Provider: Yoselin Hoffman PA-C - Reason: Prescriber hold for contraindication)2200 (Automatically Held - Provider: Yoselin Hoffman PA-C) 0800 (Automatically Held - Provider: Yoselin Hoffman PA-C)1600 (Automatically Held - Provider: Yoselin Hoffman PA-C)2200 (Automatically Held - Provider: Yoselin Hoffman PA-C) 0800 (Automatically Held - Provider: Yoselin Hoffman PA-C)0905 (Unheld by provider - Provider: Lainey Wasserman APRN-SENIOR [facility])1600 (Canceled Entry - Provider: System Discharge - Comment: Automatically canceled at discontinue of medication order) HYDROmorphone (DILAUDID) injection 0.5 mg (COMPLETED) 0.5 mg, Intravenous, ONCE, 1 dose, On Wed01/09/25 at 0645 0620 (Given - Provider: Inga Acuna RN) hydrOXYzine hcl (ATARAX) tablet 10 mg 10 mg, Oral, ONCE, 1 dose, On Wed01/10/25 at 0315 0323 (Not Given - Provider: Dede López RN - Reason: Other - Comment: Pt is asleep) Insulin lispro (HUMALOG) injection(Linked Group 1) Subcutaneous, 4 TIMES DAILY WITH MEALS & AT BEDTIME, First dose (after last modification) on Wed01/09/25 at 0800, Until Discontinued, Insulin to carb ratio: Standard: 1 unit insulin = 10 grams carbs every meal and at bedtime Correction Factor: 151-200 = 1 unit; 201-250 = 2 units; 251-300 = 3 units; 301-350 = 4 units; 351-400 = 5 units; Kwikpen: Prime pen before each injection; refer to Pen Priming and Care Handout for further details. Warning! Confirm patient. Insulin pen is for labeled individual patient use ONLY., On hold since Wed01/09/2025 at 0830 until manually unheld 0800 (Canceled Entry - Provider: System Discharge - Comment: Automatically canceled at discontinue of medication order)0830 (Held by provider - Provider: Yoselin Hoffman PA-C - Reason: Order Parameters not met)1200 (Automatically Held - Provider: Yoselin Hoffman PA-C)1700 (Automatically Held - Provider: Yoselin Hoffman PA-C)2100 (Automatically Held - Provider: Yoselin Hfofman PA-C) 0800 (Automatically Held - Provider: Yoselin Hoffman PA-C)1200 (Automatically Held - Provider: Yoselin Hoffman PA-C)1700 (Automatically Held - Provider: Yoselin Hoffman PA-C)2100 (Automatically Held - Provider: Yoselin Hoffman PA-C) 0800 (Automatically Held - Provider: Yoselin Hoffman PA-C)1200 (Automatically Held - Provider: Yoselin Hoffman PA-C)1604 (Unheld by provider - Provider: System Discharge) Levothyroxine (SYNTHROID) tablet 125 mcg 125 mcg, Oral, DAILY BEFORE BREAKFAST, First dose (after last modification) on Wed01/09/25 at 0600, Until Discontinued, Hold tube feedings for 1 hour before and 1 hour after medication administration. 0539 (Given - Provider: Inga Acuna RN) 0631 (Given - Provider: Dede López RN) 0531 (Given - Provider: Rubina Hollingsworth RN) Metoprolol (LOPRESSOR) tablet 100 mg 100 mg, Oral, 2 TIMES DAILY, First dose (after last modification) on Wed01/09/25 at 0900, Until Discontinued 0936 (Given - Provider: Chris Piper RN)165 (Given - Provider: Dia Ramirez RN) 09 (Given - Provider: Elena Ritchie RN)1603 (Given - Provider: Elena Ritchie RN) 0804 (Given - Provider: Elena Ritchie RN) Pantoprazole (PROTONIX) tablet DR 40 mg 40 mg, Oral, DAILY, First dose (after last modification) on Wed01/09/25 at 0900, Until Discontinued, Swallow whole; do not crush or chew., Indications: Continuation of Home Therapy 936 (Given - Provider: Chris Piper, RN) 906 (Given - Provider: Elena Ritchie, RN) 804 (Given - Provider: Elena Ritchie, RN) vitamin C/B complex/folic acid (VIRT-CAPS) capsule 1 mg 1 mg (1 capsule), Oral, DAILY, First dose on Wed01/10/25 at 0900, Until Discontinued 906 (Given - Provider: Elena Ritchie, RN) 804 (Given - Provider: Elena Ritchie, RN) Continuous Medication Order 01/09/2025 01/10/2025 01/11/2025 dialysate 3 K - 2.50 Ca Solution 1 () Dialysis, Administer over 3 Hours, CONTINUOUS, Starting on Wed01/09/25 at 1045, Until Wed01/09/25 at 1544, Intra-op/Intra-Proc 1020 ($$New Bag$$ - Provider: Yasmany Herring RN) PRN Medication Order 01/09/2025 01/10/2025 01/11/2025 Acetaminophen (TYLENOL) tablet 650 mg 650 mg, Oral, EVERY 6 HOURS NEEDED, Starting on Wed01/09/25 at 0452, Until Wed01/11/25 at 1604, Mild Pain, Maximum dose of acetaminophen is 4000 mg from all sources in 24 hours. 1652 (Given - Provider: Dia Ramirez RN) 0149 (Given - Provider: Rubina Hollingsworth RN) alum/mag hydrox.-simethicone oral suspension 30 mL 30 mL, Oral, EVERY 6 HOURS NEEDED, Starting on Wed01/09/25 at 0452, Until Xuan 01/11/25 at 1604, Indigestion, Per 5 mL is equivalent to: (Alum-Mag Hydroxide 200-225 mg and Simethicone 20 mg) and (Alum-Mag Hydroxide 200-200 mg and Simethicone 20 mg) Dextrose 50% injection 7.5-25 g(Linked Group 1) 7.5-25 g, Intravenous, ADMINISTER DIRECTED, Starting on Wed01/09/25 at 0452, Until Wed01/11/25 at 1604, Blood glucose <80 mg/dL, For patients who are not alert, are NPO, or are on IV insulin infusion administer as directed per Hypoglycemia in Non- Adults Clinical Practice Guideline. For Blood Glucose: 60-79 mg/dL administer 7.5 gm (15ml); 45-59 mg/dL administer 12.5 gm (25ml); less than 45mg/dL administer 25gm (50ml). ++ If additional dextrose 50% needed, contact pharmacy or obtain from [employer] ++ 0602 (Given - Provider: Inga Acuna, RN)0752 (Given - Provider: Chris Piper, MAYNOR) glucose (GLUTOSE) 40 % oral gel 1-2 Tube(Linked Group 1) 1-2 Tube, Oral, ADMINISTER DIRECTED, Starting on Wed01/09/25 at 0452, Until Wed01/11/25 at 1604, Blood glucose <80 mg/dL, For patients who are alert, able to tolerate PO intake and with intact cognitive status administer as directed per Hypoglycemia in Non- Adults Clinical Practice Guideline. For Blood Glucose: 60-79 mg/dL administer 1 tube; 45-59 mg/dl administer 1.5 tubes; less than 45 mg/dL administer 2 tubes. Each tube of 37.5g delivers 15g of carbohydrate. Insulin lispro (HUMALOG) injection(Linked Group 1) Subcutaneous, NEEDED, Starting on Wed01/09/25 at 0452, Until Wed01/11/25 at 1604, Other, As needed for snacks, Insulin to carb ratio: Standard: 1 unit insulin = 10 grams carbs Correction Factor: not to be used with this order. Kwikpen: Prime pen before each injection; refer to Pen Priming and Care Handout for further details. Warning! Confirm patient. Insulin pen is for labeled individual patient use ONLY., On hold since Wed01/09/2025 at 0830 until manually unheld 0830 (Held by provider - Provider: Yoselin Hoffman PA-C - Reason: Order Parameters not met) 1604 (Unheld by provider - Provider: System Discharge) Sodium chloride 0.9% IV solution 250 mL Intravenous, at 20 mL/hr, NEEDED, Starting on Wed01/09/25 at 0452, Until Wed01/11/25 at 1604, Carrier Fluid - See Admin. Inst, 250mL 0.9NS to be used as carrier fluid for intermittent small volume or piggyback medication administration as needed. Infusion rate of the carrier fluid should be set at 20 mL/hr unless the rate as the intermittent medication is less than 20 mL/hr. For intermittent medications with a rate less than 20 mL/hr set the carrier fluid at that rate of the intermittent or piggy back medication. Linked Groups Order Group 1: Insulin lispro (HUMALOG) injectionJump to med Subcutaneous, 4 TIMES DAILY WITH MEALS & AT BEDTIME, First dose (after last modification) on Wed01/09/25 at 0800, Until Discontinued, Insulin to carb ratio: Standard: 1 unit insulin = 10 grams carbs every meal and at bedtime Correction Factor: 151-200 = 1 unit; 201-250 = 2 units; 251-300 = 3 units; 301-350 = 4 units; 351-400 = 5 units; Kwikpen: Prime pen before each injection; refer to Pen Priming and Care Handout for further details. Warning! Confirm patient. Insulin pen is for labeled individual patient use ONLY., On hold since Wed01/09/2025 at 0830 until manually unheld And Insulin lispro (HUMALOG) injectionJump to med Subcutaneous, NEEDED, Starting on Wed01/09/25 at 0452, Until Wed01/11/25 at 1604, Other, As needed for snacks, Insulin to carb ratio: Standard: 1 unit insulin = 10 grams carbs Correction Factor: not to be used with this order. Kwikpen: Prime pen before each injection; refer to Pen Priming and Care Handout for further details. Warning! Confirm patient. Insulin pen is for labeled individual patient use ONLY., On hold since Wed01/09/2025 at 0830 until manually unheld And BLOOD GLUCOSE (POC DEVICE) (CANCELED) Routine, 4 TIMES DAILY BEFORE MEALS & AT BEDTIME, First occurrence on Wed01/09/25 at 0745, If any Blood Glucose (POC) is greater than 300mg/dl, then repeat Blood Glucose (POC) in 2 hours. If the initial blood glucose was greater than 300mg/dl and if second blood glucose is greater than 200md/dl, then notify Garment Alteration Examiner. And BLOOD GLUCOSE (POC DEVICE) (CANCELED) Routine, DIRECTED, Starting on Wed01/09/25 at 0452, Until Specified, For all Blood Glucose LESS THAN 80 mg/dL, treat per Hypoglycemia in Non- Adults Clinical Practice Guideline (CPG) and recheck glucose 15 min after treatment. Repeat per CPG until glucose GREATER THAN 80 mg/dL. Once glucose IS GREATER THAN 80 mg/dL, recheck Blood Glucose every 1 hour x2, then resume as previously ordered. For Blood Glucose LESS THAN 80 mg/dL on admission OR LESS than 45 mg/dL at any time, obtain POC Blood Glucose every 4 hours for 6 occurrences AFTER treating per CPG. Obtain blood glucose for symptoms of hypoglycemia: sweating, shaking, fatigue, rapid pulse, slow thinking & dizziness. Notify physician w/results. Obtain blood glucose for symptoms of hyperglycemia: excessive thirst, blurred vision, excessive urination & tiredness. Notify physician w/results. If patient NPO, obtain POC Blood Glucose prior to administration of any insulin products. And COMMUNICATION ORDER FOR NURSING CARE: For Blood Glucose LESS THAN 80 mg/dl (CANCELED) Routine, CONTINUOUS, Starting on Wed01/09/25 at 0453, Until Specified, For Blood Glucose LESS THAN 80 mg/dl follow Hypoglycemia in Non- Adults Clinical Practice Guideline (CPG) And Dextrose 50% injection 7.5-25 gJump to med 7.5-25 g, Intravenous, ADMINISTER DIRECTED, Starting on Wed01/09/25 at 0452, Until Xuan 01/11/25 at 1604, Blood glucose <80 mg/dL, For patients who are not alert, are NPO, or are on IV insulin infusion administer as directed per Hypoglycemia in Non- Adults Clinical Practice Guideline. For Blood Glucose: 60-79 mg/dL administer 7.5 gm (15ml); 45-59 mg/dL administer 12.5 gm (25ml); less than 45mg/dL administer 25gm (50ml). ++ If additional dextrose 50% needed, contact pharmacy or obtain from [facility] cart ++ And glucose (GLUTOSE) 40 % oral gel 1-2 TubeJump to med 1-2 Tube, Oral, ADMINISTER DIRECTED, Starting on Wed01/09/25 at 0452, Until Xuan 01/11/25 at 1604, Blood glucose <80 mg/dL, For patients who are alert, able to tolerate PO intake and with intact cognitive status administer as directed per Hypoglycemia in Non- Adults Clinical Practice Guideline. For Blood Glucose: 60-79 mg/dL administer 1 tube; 45-59 mg/dl administer 1.5 tubes; less than 45 mg/dL administer 2 tubes. Each tube of 37.5g delivers 15g of carbohydrate. And NOTIFY PHYSICIAN, Blood Glucose LESS THAN 80 mg/dl (CANCELED) Routine, CONTINUOUS, Starting on Wed01/09/25 at 0453, Until Specified, Who to Notify: Garment Alteration Examiner, For all Blood Glucose LESS THAN 80 mg/dl, notify Garment Alteration Examiner after treatment per Hypoglycemia in Non- Adults Clinical Practice Guideline And Carbohydrate counts with meals (CANCELED) Routine, CONTINUOUS, Starting on Wed01/09/25 at 0453, Until Specified, Carbohydrate counts are to be done after each patient meal and with snack. (unrecognized sect ion and content) No Status Records FoundNo Status Records Found INFORMATION SOURCE (unrecogn ized section and content) DATE CREATED AUTHOR 01/13/2025 [facility] DATE CREATED AUTHOR AUTHOR'S SANJU FULLER 01/14/2025 [facility] FOR RECORDS PERTAINING TO PATIENTS WHO ARE OR HAVE BEEN ENROLLED IN A CHEMICAL DEPENDENCY/SUBSTANCEABUSE PROGRAM, SOME INFORMATION MAY BE OMITTED. This clinical summary was aggregated from multiple sources. Caution should be exercised in using it in the provision of clinical care. This summary normalizes information from multiple sources, and as a consequence, information in this document may materially change the coding, format and clinical context of patient data. In addition, data may be omitted in some cases. CLINICAL DECISIONS SHOULD BE BASED ON THE PRIMARY CLINICAL RECORDS. [employer] provides no warranty or guarantee of the accuracy or completeness of information in this document.
--- OUTSIDE RECORDS SUMMARY | 2025-01-15 23:49 | XMS RPT_ITS | CCD ---
Author Organization [facility] Care Team Providers Care Data Analytics Architect Name Role Phone Dr. Sam Del Toro Primary Care Provider [phone] Dr. Sam Del Toro Referring Provider Dr. Jeffrey Kuhn Attending Provider Dr. Patrice Loja Attending Provider Dr. Sam Del Toro Primary Care Provider [phone] Dr. Sam Del Troo Referring Provider Dr. Jeffrey Kuhn Attending Provider Nurse, Surgery Attending Provider Unavailable Dr. Sam Del Toro Primary Care Provider [phone] Dr. Sam eDl Toro Referring Provider Dr. Jeffrey Kuhn Attending Provider NIKKI De León Referring Provider Dr. Willy Ralph Attending Provider Dr. Sam Del Toro Primary Care Provider [phone] Dr. Sam Del Toro Referring Provider Dr. Jeffrey Kuhn Attending Provider Dr. Lana Tucker Referring Provider Dr. Jamal Menendez Emergency Provider Dr. Beck Simms Admit Provider Dr. Beck Simms Attending Provider Dr. Beck Simms Other Provider [phone] Dr. Lana Tucker Other Provider Dr. Jluis Torres Other Provider Dr. Jeffrey Kuhn Other Provider Dr. Mitchel Pereira Other Provider Dr. Willy Moctezuma Other Provider Dr. Abhay Cowart Other Provider Unavailable Dorothy, Dr. Schultz Other Provider Dr. Saud No Other Provider Flako LINUX UNIX ENGINEER, LINUX UNIX ENGINEER-C Ruby Other Provider 1([facility])[phone] Dr. Beck Simms Referring Provider 1([facility])[phone] Dr. Moody Cuello Other Provider 1([facility])[phone] Dominic Nails Other Provider Dr. Mannie Singh Attending Provider 1([facility])[phone] Mannie Singh Other Provider Alberto LINUX UNIX ENGINEER, LINUX UNIX ENGINEER-C Amara Other Provider Dr. Jluis Eubanks Other Provider 1([facility])[phone] Ton Lund Other Provider Flako LINUX UNIX ENGINEER, LINUX UNIX ENGINEER-C Ruby Attending Provider Dr. Ton Lund Attending Provider 1([facility])[phone] Dominic Nails Attending Provider 1([facility])[phone] Sam Del Toro Primary Care Provider 1([facility])[phone] Dr. Sam Del Toro Referring Provider 1([facility])[phone] Dr. Mannie Singh Referring Provider 1([facility])[phone] Camille Parra Referring Provider 1([facility])[phone] Dr. Tayo Cannon Emergency Provider 1([facility])[phone] Jeffrey Philip Admit Provider Dr. Jeffrey Philip Other Provider Dr. Ava Tucker Attending Provider 1([facility])[phone] Ava Tucker Other Provider Dr. Jeffrey Kuhn Attending Provider 1([facility])[phone] Sam Spear Other Provider Dr. [...] Emergency Provider Dr. Beck Simms Admit Provider Mendez, Dr. Solares Other Provider Dr. Lana Tucker Other Provider Dr. Jluis Torres Other Provider Dr. Jeffrey Kuhn Other Provider Dr. Mitchel Pereira Other Provider Dr. Willy Moctezuma Other Provider Dr. Abhay Cowart Other Provider Unavailable Dr. Antoine De La Cruz Other Provider Dr. Saud No Other Provider Flako LINUX UNIX ENGINEER, LINUX UNIX ENGINEER-C Ruby Other Provider Dr. Sam Del Toro [...] Provider Dr. Mannie Singh Other Provider Alberto LINUX UNIX ENGINEER, LINUX UNIX ENGINEER-C Amara Other Provider Dr. Lana Tucker Other Provider Dr. Jluis Torres Other Provider Dr. Jeffrey Kuhn Other Provider Dr. Mitchel Pereira Other Provider Dr. Willy Moctezuma Other Provider Dr. Abhay Cowart Other Provider Unavailable Dr. Antoine De La Cruz Other Provider Dr. Saud No Other Provider Flako LINUX UNIX ENGINEER, LINUX UNIX ENGINEER-C Ruby Other Provider Dr. Jluis Eubanks Other [...] Provider Dr. Patrice Loja MD [facility]ending [facility] Attending Provider Dr. Mitchel Pereira MD Attending Provider Dr. Mo Escobedo MD Referring Provider Dr. Moody Rodriguez DO Emergency Provider Dr. [...] Provider Dr. Moody Rodriguez DO [facility]ending Provider [facility] Perez Emergency Provider Alvetro MIR, Dr. Conrad Primary Care Provider Alverto MIR, Dr. Conrad Referring Provider Hattie BUSBY, Dr. Murphy Attending Provider Hattie BUSBY, Dr. Murphy Referring Provider Purvi BUSBY, Dr. Ibrahim Attending Provider [facility] Jeremy ANDRADE Attending Provider Randall BUSBY, Dr. Grullon Attending Provider Homero BUSBY, Dr. Mo Dailey Referring Provider [phone] Michael MIR, Dr. Uriostegui Attending Provider [place] DO, Dr. Uriostegui Emergency Provider Randall BUSBY, Dr. Grullon Referring Provider Mark MIR, Dr. Perez Emergency Provider [facility], Dr. Cr Emergency Provider Alverto MIR, Dr. Conrad Primary Care Provider Hattie BUSBY, Dr. Murphy Attending Provider Alverto MIR, Dr. Conrad Referring Provider Dr. Ana Flores DO Attending Provider Davis MIR, Dr. Cr Attending Provider Homero BUSBY, Dr. Mo Dailey Attending Provider Homero BUSBY, Dr. Mo Dailey Referring Provider [phone] Derrick MIR, Dr. Garner Emergency Provider [phone] Flako EXTRACTOR PLANT OPERATOR-SUPERINTENDENT DRILLING AND PRODUCTION, Ruby R Unavailable Dominik MCGUIRE, Jenn Unavailable Unavailable Flako EXTRACTOR PLANT OPERATOR-SUPERINTENDENT [employer]LLING [employer]ODUCTION, Ruby R Unavailable [facility], Sam Melendez Primary Care Provider [facility], Dr. Conrad Primary Care Provider Hattie BUSBY, Dr. Murphy Attending Provider [facility] , Dr. Conrad Referring [facility] Dr. Perez Attending Provider Davis , Dr. Cr Attending Provider Davis , Dr. Cr Emergency Provider Homero BUSBY, Dr. oM Dailey Attending Provider [phone] Jeffrey Kuhn MD Unavailable Alverto DO, Dr. Conrad Primary Care Provider [phone] [facility], Dr. Conrad Referring Provider Purvi BUSBY, Dr. Ibrahim Attending Provider Dr. Jeffrey Kuhn MD Attending Provider [phone] Pascual Meza DO Attending Provider [facility], Dr. Tariq Emergency Provider Adebayo [...] Referring Unavailable Homero, Mo Dailey Attending Unavailable Avlerto, Sam Primary Care Unavailable Alverto, Sam Primary [...] to substance 8 PT UNSURE OF REACTION Morganza [facility] Medications Current Medications Medication Drug Class(es) Dates [...] 1 tablet by mouth once daily B Mqmjnaq-D-Dtlra Acid (Theresa-Fabian) tablet Take 1 tablet by [...] aftercare (7 sources) Drug therapy finding; Translations: [assisted (current) use of anticoagulants] 10-04-2024 Episodic Other [...] additional problems on file Unclassified (1 source) assisted (current) use of other immunomodulators and immunosuppressants; Translations: [assisted (current) use of other immunomodulators and immunosuppressants] [...] mg/dL Low 8.6 - 10. 5 mg[facility] Calcium [Mass/Vol] 8.3 mg/dL Low 8.6-10.5 [facility] Comment on above: Performed By: #### L ABHSTI1, LIPA, HFP, IPB, CA, MGO #### [facility] (DEFAULT) [address] [place] [address] 10356 CARDIAC RHYTHMon 01-11-2025 [facility] CBC,PLATELETSon 01-11-2025 Erythrocyte distribution width (RBC) [Ratio] 19.9 % High 10.9 - 14.3 % [facility] Hematocrit (Bld) [Volume fraction] 28.3 % Low 39.6 - 48.8 % [facility] Hemoglobin (Bld) [Mass/Vol] 8.7 g/dL Low 13.4 - 16.8 g/dL [facility] Interpretation and review of laboratory results Abnormal [facility] MCH (RBC) [Entitic mass] 30.2 pg 26.1 - 33.3 pg [facility] MCHC (RBC) [Mass/Vol] 30.7 g/dL Low 31.9 - 36.5 g/dL [facility] MCV (RBC) [Entitic vol] 98.3 fL High 79.0 - 94.5 fL [facility] Platelet mean volume (Bld) [Entitic vol] 10 fL 8.7 - 12.3 fL [facility] Platelets (Bld) [#/Vol] 90 10*3/uL Low 146 - 337 K/uL [facility] RBC (Bld) [#/Vol] 2.88 10*6/uL Low [facility] WBC (Bld) [#/Vol] 12.33 10*3/uL High 3.73 - 10.10 K/uL [facility] Hematocrit (Bld) [Volume fraction] 28.3 % Low 39.6-48.8 [facility] Comment on above: Performed By: #### L ABHSTI1, LIPA, HFP, IPB, CA, MGO #### [facility] (DEFAULT) [address] [place] [address] Hemoglobin (Bld) [Mass/Vol] 8.7 g/dL Low 13.4-16.8 [facility] Comment on above: Performed By: #### L ABHSTI1, LIPA, HFP, IPB, CA, MGO #### [facility] (DEFAULT) [address] [place] [address] 72235 MCV (RBC) [Entitic vol] 98.3 fL High 79.0-94.5 [facility] Comment on above: Performed By: #### L ABHSTI1, LIPA, HFP, IPB, CA, MGO #### [facility] (DEFAULT) [address] [place] [address] 93545 Mean Cell Hgb 30.2 pg Normal 26.1-33.3 [facility] Comment on above: Performed By: #### L ABHSTI1, LIPA, HFP, IPB, CA, MGO #### [facility] (DEFAULT) [address] [place] [address] 26154 Mean Cell Hgb Conc 30.7 g/dL Low 31.9-36.5 [facility] Comment on above: Performed By: #### L ABHSTI1, LIPA, HFP, IPB, CA, MGO #### [facility] (DEFAULT) [address] [place] [address] 24809 Platelet mean volume (Bld) [Entitic vol] 10.0 fL Normal 8.7-12.3 [facility] Comment on above: Performed By: #### L ABHSTI1, LIPA, HFP, IPB, CA, MGO #### [facility] (DEFAULT) [address] [place] [address] 14969 Platelets (Bld) [#/Vol] 90 10*3/uL Low 146-337 [facility] Comment on above: Performed By: #### L ABHSTI1, LIPA, HFP, IPB, CA, MGO #### [facility] (DEFAULT) [address] [place] [address] 31234 RBC (Bld) [#/Vol] 2.88 10*6/uL Low 4.38-5.83 [facility] Comment on above: Performed By: #### L ABHSTI1, LIPA, HFP, IPB, CA, MGO #### [facility] (DEFAULT) [address] [place] [address] RBC Distribution 19.9 % High 10.9-14.3 [facility] Comment on above: Performed By: #### L ABHSTI1, LIPA, HFP, IPB, CA, MGO #### [facility] (DEFAULT) [address] [place] [address] 36988 WBC (Bld) [#/Vol] 12.33 10*3/uL High 3.73-10.10 [facility] Comment on above: Performed By: #### L ABHSTI1, LIPA, HFP, IPB, CA, MGO #### [facility] (DEFAULT) [address] [place] [address] 39379 CHEM 7 (LYTES,BUN,CREA,GLUC) on 01-11-2025 Anion gap [Moles/Vol] 17 mmol/L 7 - 17 mmol/L [facility] Chloride [Moles/Vol] 97 mmol/L Low 98 - 10 8 mmol/L [facility] CO2 [Moles/Vol] 27 mmol/L 21 - 31 mmol/L [facility] Creatinine [Mass/Vol] 3.66 mg/dL High 0.70 - 1.30 mg/dL [facility] eGFR, CKD-EPI, Male 17 Low - PINF [facility] Comment on above: Reported eGFR is bas ed on the CKD-EPI 2020 equation using creatinine, age, and sex. Glucose [Mass/Vol] 153 mg/dL 70 - 179 mg/dL [facility] Osmolality Calc [Osmolality] 300 [facility] Potassium [Moles/Vol] 4.6 mmol/L 3.5 - 5.0 mmol/L [facility] Sodium [Moles/Vol] 136 mmol/L 135 - 145 mmol/L [facility] Urea nitrogen [Mass/Vol] 42 mg/dL High 7 - 25 mg/dL [facility] Urea nitrogen/Creatinine [Mass ratio] 11 mg/mg [facility] Anion gap [Moles/Vol] 17 mmol/L Normal 7-17 [facility] Comment on above: Performed By: #### L ABHSTI1, LIPA, HFP, IPB, CA, MGO #### [facility] (DEFAULT) [address] [place] [address] 05678 Chloride [Moles/Vol] 97 mmol/L Low 98-108 [facility] Comment on above: Performed By: #### L ABHSTI1, LIPA, HFP, IPB, CA, MGO #### [facility] (DEFAULT) [address] [place] [address] 52906 CO2 [Moles/Vol] 27 mmol/L Normal 21-31 [facility] Comment on above: Performed By: #### L ABHSTI1, LIPA, HFP, IPB, CA, MGO #### [facility] (DEFAULT) [address] [place] [address] 40669 Creatinine [Mass/Vol] 3.66 mg/dL High 0.70-1.30 [facility] Comment on above: Performed By: #### L ABHSTI1, LIPA, HFP, IPB, CA, MGO #### [facility] (DEFAULT) [address] [place] [address] 88630 GFR/1.73 sq M.predicted among non-blacks MDRD (S/P/Bld) [Vol rate/Area] 17 mL/min/{1.73_m2} Low >=60 [facility] Comment on above: Result Comment: Repo rted eGFR is based on the CKD-EPI 2020 equation using creatinine, age, and sex. Performed By: #### L ABHSTI1, LIPA, HFP, IPB, CA, MGO #### [facility] (DEFAULT) [address] [place] [address] 41762 Glucose [Mass/Vol] 153 mg/dL Normal Nonfastin -179 mg/dL; Fastin-99 [facility] Comment on above: Performed By: #### L ABHSTI1, LIPA, HFP, IPB, CA, MGO #### [facility] (DEFAULT) [address] [place] [address] 60632 Osmolality [Osmolality] 300 mosm/kg Normal 278-305 [facility] Comment on above: Performed By: #### L ABHSTI1, LIPA, HFP, IPB, CA, MGO #### [facility] (DEFAULT) [address] [place] [address] 23247 Potassium [Moles/Vol] 4.6 mmol/L Normal 3.5-5.0 [facility] Comment on above: Performed By: #### L ABHSTI1, LIPA, HFP, IPB, CA, MGO #### [facility] (DEFAULT) [address] [place] [address] 24065 Sodium [Moles/Vol] 136 mmol/L Normal 135-145 [facility] Comment on above: Performed By: #### L ABHSTI1, LIPA, HFP, IPB, CA, MGO #### [facility] (DEFAULT) [address] [place] [address] 53127 Urea nitrogen [Mass/Vol] 42 mg/dL High 7-25 [facility] Comment on above: Performed By: #### L ABHSTI1, LIPA, HFP, IPB, CA, MGO #### [facility] (DEFAULT) [address] [place] [address] 20100 Urea nitrogen/Creatinine [Mass ratio] 11 mg/mg Normal [facility] Comment on above: Performed By: #### L ABHSTI1, LIPA, HFP, IPB, CA, MGO #### [facility] (DEFAULT) [address] [place] [address] 78534 GLUCOSE POCon 01-11-2025 Glucose [Mass/Vol] 168 mg/dL 70 - 179 mg/dL [facility] POC Sample Type CAPBL [facility] Test performed at address of the patient encounter. [facility] Glucose [Mass/Vol] 155 mg/dL 70 - 179 mg/dL [facility] POC Sample Type CAPBL [facility] Test performed at address of the patient encounter. [facility] MAGNESIUMon 01-11-2025 Interpretation and review of laboratory results Normal [facility] Magnesium [Mass/Vol] 1.8 mg/dL 1.6 - 2 .6 mg/dL [facility] Magnesium [Mass/Vol] 1.8 mg/dL Normal 1.6-2.6 [facility] Comment on above: Performed By: #### L ABHSTI1, LIPA, HFP, IPB, CA, MGO #### [facility] (DEFAULT) [address] [place] [address] 24404 No Panel Informationon 01-11 Interpretation and review of laboratory results Abnormal [facility] PHOSPHATE, INORGANICon 01-11 Phosphate [Mass/Vol] 5.1 mg/dL High 2.2 - 4 .6 mg/dL [facility] Phosphorous 5.1 mg/dL High 2.2-4.6 [facility] Comment on above: Performed By: #### L ABHSTI1, LIPA, HFP, IPB, CA, MGO #### [facility] (DEFAULT) [address] [place] [address] 71477 PTH INTACTon 01-11-2025 Intact PTH 256.6 pg/mL High 14.0-72.0 [facility] Comment on above: Performed By: #### L ABHSTI1, LIPA, HFP, IPB, CA, MGO #### [facility] (DEFAULT) [address] [place] [address] 24651 VITAMIN D (25-HYDROXY,TOTAL) on 01-11-2025 25-OH Vitamin D Total 28.4 ng/mL Low 30.0-100.0 [facility] Comment on above: Order Comment: Vitam in D values have been shown to be falsely decreased in lipemic samples and should be interpreted with caution. Result Comment: <10 Deficiency 10-29 Insufficiency 30-100 Optimal Level >100 Possible Toxicity Performed By: #### L ABHSTI1, LIPA, HFP, IPB, CA, MGO #### [facility] (DEFAULT) [address] [place] [address] CALCIUMon 01-10-2025 Calcium [Mass/Vol] 8.3 mg/dL Low 8.6 - 10. 5 mg/dL [facility] Calcium [Mass/Vol] 8.3 mg/dL Low 8.6-10.5 [facility] Comment on above: Performed By: #### L ABHSTI1, LIPA, HFP, IPB, CA, MGO #### [facility] (DEFAULT) [address] [place] [address] CBC,PLATELETSon 01-10-2025 Erythrocyte distribution width (RBC) [Ratio] 19.7 % High 10.9 - 14.3 % [facility] Hematocrit (Bld) [Volume fraction] 28.3 % Low 39.6 - 48.8 % [facility] Hemoglobin (Bld) [Mass/Vol] 8.9 g/dL Low 13.4 - 16.8 g/dL [facility] Interpretation and review of laboratory results Abnormal [facility] MCH (RBC) [Entitic mass] 29.9 pg 26.1 - 33.3 pg [facility] MCHC (RBC) [Mass/Vol] 31.4 g/dL Low 31.9 - 36.5 g/dL [facility] MCV (RBC) [Entitic vol] 95 fL High 79.0 - 94.5 fL [facility] Platelet mean volume (Bld) [Entitic vol] 9.6 fL 8.7 - 12.3 fL [facility] Platelets (Bld) [#/Vol] 94 10*3/uL Low 146 - 337 K/uL [facility] RBC (Bld) [#/Vol] 2.98 10*6/uL Low [facility] WBC (Bld) [#/Vol] 13.75 10*3/uL High 3.73 - 10.10 K/uL [facility] Hematocrit (Bld) [Volume fraction] 28.3 % Low 39.6-48.8 [facility] Comment on above: Performed By: #### L ABHSTI1, LIPA, HFP, IPB, CA, MGO #### [facility] (DEFAULT) [address] [place] [address] 55582 Hemoglobin (Bld) [Mass/Vol] 8.9 g/dL Low 13.4-16.8 [facility] Comment on above: Performed By: #### L ABHSTI1, LIPA, HFP, IPB, CA, MGO #### [facility] (DEFAULT) [address] [place] [address] 68903 MCV (RBC) [Entitic vol] 95.0 fL High 79.0-94.5 [facility] Comment on above: Performed By: #### L ABHSTI1, LIPA, HFP, IPB, CA, MGO #### [facility] (DEFAULT) [address] [place] [address] 02154 Mean Cell Hgb 29.9 pg Normal 26.1-33.3 [facility] Comment on above: Performed By: #### L ABHSTI1, LIPA, HFP, IPB, CA, MGO #### [facility] (DEFAULT) [address] [place] [address] 28909 Mean Cell Hgb Conc 31.4 g/dL Low 31.9-36.5 [facility] Comment on above: Performed By: #### L ABHSTI1, LIPA, HFP, IPB, CA, MGO #### [facility] (DEFAULT) [address] [place] [address] 93844 Platelet mean volume (Bld) [Entitic vol] 9.6 fL Normal 8.7-12.3 [facility] Comment on above: Performed By: #### L ABHSTI1, LIPA, HFP, IPB, CA, MGO #### [facility] (DEFAULT) [address] [place] [address] 07937 Platelets (Bld) [#/Vol] 94 10*3/uL Low 146-337 [facility] Comment on above: Performed By: #### L ABHSTI1, LIPA, HFP, IPB, CA, MGO #### [facility] (DEFAULT) [address] [place] [address] 63143 RBC (Bld) [#/Vol] 2.98 10*6/uL Low 4.38-5.83 [facility] Comment on above: Performed By: #### L ABHSTI1, LIPA, HFP, IPB, CA, MGO #### [facility] (DEFAULT) [address] [place] [address] 80188 RBC Distribution 19.7 % High 10.9-14.3 [facility] Comment on above: Performed By: #### L ABHSTI1, LIPA, HFP, IPB, CA, MGO #### [facility] (DEFAULT) [address] [place] [address] 70984 WBC (Bld) [#/Vol] 13.75 10*3/uL High 3.73-10.10 [facility] Comment on above: Performed By: #### L ABHSTI1, LIPA, HFP, IPB, CA, MGO #### [facility] (DEFAULT) [address] [place] [address] 12674 CHEM 7 (LYTES,BUN,CREA,GLUC) on 01-10-2025 Anion gap [Moles/Vol] 19 mmol/L High 7 - 17 mmol/L [facility] Chloride [Moles/Vol] 97 mmol/L Low 98 - 10 8 mmol/L [facility] CO2 [Moles/Vol] 24 mmol/L 21 - 31 mmol/L [facility] Creatinine [Mass/Vol] 4.06 mg/dL High 0.70 - 1.30 mg/dL [facility] eGFR, CKD-EPI, Male 15 Low - PINF [facility] Comment on above: Reported eGFR is bas ed on the CKD-EPI 2020 equation using creatinine, age, and sex. Glucose [Mass/Vol] 76 mg/dL 70 - 179 mg/dL [facility] Osmolality Calc [Osmolality] 300 [facility] Potassium [Moles/Vol] 4.8 mmol/L 3.5 - 5.0 mmol/L [facility] Sodium [Moles/Vol] 135 mmol/L 135 - 145 mmol/L [facility] Urea nitrogen [Mass/Vol] 58 mg/dL High 7 - 25 mg/dL [facility] Urea nitrogen/Creatinine [Mass ratio] 14 mg/mg [facility] Anion gap [Moles/Vol] 19 mmol/L High 7-17 [facility] Comment on above: Performed By: #### L ABHSTI1, LIPA, HFP, IPB, CA, MGO #### [facility] (DEFAULT) [address] [place] [address] 40233 Chloride [Moles/Vol] 97 mmol/L Low 98-108 [facility] Comment on above: Performed By: #### L ABHSTI1, LIPA, HFP, IPB, CA, MGO #### [facility] (DEFAULT) [address] [place] [address] 01133 CO2 [Moles/Vol] 24 mmol/L Normal 21-31 [facility] Comment on above: Performed By: #### L ABHSTI1, LIPA, HFP, IPB, CA, MGO #### [facility] (DEFAULT) [address] [place] [address] 24356 Creatinine [Mass/Vol] 4.06 mg/dL High 0.70-1.30 [facility] Comment on above: Performed By: #### L ABHSTI1, LIPA, HFP, IPB, CA, MGO #### [facility] (DEFAULT) [address] [place] [address] 87482 GFR/1.73 sq M.predicted among non-blacks MDRD (S/P/Bld) [Vol rate/Area] 15 mL/min/{1.73_m2} Low >=60 [facility] Comment on above: Result Comment: Repo rted eGFR is based on the CKD-EPI 2020 equation using creatinine, age, and sex. Performed By: #### L ABHSTI1, LIPA, HFP, IPB, CA, MGO #### [facility] (DEFAULT) [address] [place] [address] 82556 Glucose [Mass/Vol] 76 mg/dL Normal Nonfastin -179 mg/dL; Fastin-99 [facility] Comment on above: Performed By: #### L ABHSTI1, LIPA, HFP, IPB, CA, MGO #### [facility] (DEFAULT) [address] [place] [address] 03582 Osmolality [Osmolality] 300 mosm/kg Normal 278-305 [facility] Comment on above: Performed By: #### L ABHSTI1, LIPA, HFP, IPB, CA, MGO #### [facility] (DEFAULT) [address] [place] [address] 10790 Potassium [Moles/Vol] 4.8 mmol/L Normal 3.5-5.0 [facility] Comment on above: Performed By: #### L ABHSTI1, LIPA, HFP, IPB, CA, MGO #### [facility] (DEFAULT) [address] [place] [address] 08290 Sodium [Moles/Vol] 135 mmol/L Normal 135-145 [facility] Comment on above: Performed By: #### L ABHSTI1, LIPA, HFP, IPB, CA, MGO #### [facility] (DEFAULT) [address] [place] [address] 18622 Urea nitrogen [Mass/Vol] 58 mg/dL High 7-25 [facility] Comment on above: Performed By: #### L ABHSTI1, LIPA, HFP, IPB, CA, MGO #### [facility] (DEFAULT) [address] [place] [address] 17508 Urea nitrogen/Creatinine [Mass ratio] 14 mg/mg Normal [facility] Comment on above: Performed By: #### L ABHSTI1, LIPA, HFP, IPB, CA, MGO #### [facility] (DEFAULT) [address] [place] [address] 56796 FERRITINOrdered By: Tiarra allen on 01-10-2025 Ferritin [Mass/Vol] 3213.7 ng/mL High 10.5 - 307.3 ng/mL [facility] Interpretation and review of laboratory results Abnormal [facility] FERRITINon 01-10-2025 Ferritin [Mass/Vol] 3213.7 ng/mL High 10.5-307.3 [facility] Comment on above: Performed By: #### L ABHSTI1, LIPA, HFP, IPB, CA, MGO #### [facility] (DEFAULT) [address] [place] [address] 26832 GLUCOSE POCon 01-10-2025 Glucose [Mass/Vol] 177 mg/dL 70 - 179 mg/dL [facility] POC Sample Type CAPBL [facility] Test performed at address of the patient encounter. [facility] Glucose [Mass/Vol] 85 mg/dL 70 - 179 mg/dL [facility] POC Sample Type CAPBL [facility] Test performed at address of the patient encounter. [facility] Glucose [Mass/Vol] 81 mg/dL 70 - 179 mg/dL [facility] POC Sample Type CAPBL [facility] Test performed at address of the patient encounter. [facility] HEPATIC FUNCTION PANELon 06- 18-2025 Albumin [Mass/Vol] 3 g/dL Low 3.5 - 5.0 g/dL [facility] ALP [Catalytic activity/Vol] 50 U/L 32 - 126 U/L [facility] ALT [Catalytic activity/Vol] 16 U/L 10 - 52 U/L [facility] AST [Catalytic activity/Vol] 31 U/L 10 - 39 U/L [facility] Bilirubin [Mass/Vol] 0.8 mg/dL NINF - 1.5 mg/dL [facility] Bilirubin.direct [Mass/Vol] 0.1 mg/dL NINF - 0.3 mg/dL [facility] Protein [Mass/Vol] 5.6 g/dL Low 6.4 - 8.3 g/dL [facility] Albumin [Mass/Vol] 3.0 g/dL Low 3.5-5.0 [facility] Comment on above: Performed By: #### L ABHSTI1, LIPA, HFP, IPB, CA, MGO #### [facility] (DEFAULT) [address] [place] [address] 00150 ALP [Catalytic activity/Vol] 50 U/L Normal 32-126 [facility] Comment on above: Performed By: #### L ABHSTI1, LIPA, HFP, IPB, CA, MGO #### [facility] (DEFAULT) [address] [place] [address] 22147 ALT [Catalytic activity/Vol] 16 U/L Normal 10-52 [facility] Comment on above: Performed By: #### L ABHSTI1, LIPA, HFP, IPB, CA, MGO #### [facility] (DEFAULT) [address] [place] [address] 04441 AST [Catalytic activity/Vol] 31 U/L Normal 10-39 [facility] Comment on above: Performed By: #### L ABHSTI1, LIPA, HFP, IPB, CA, MGO #### [facility] (DEFAULT) [address] [place] [address] 60002 Bilirubin [Mass/Vol] 0.8 mg/dL Normal <1.5 [facility] Comment on above: Performed By: #### L ABHSTI1, LIPA, HFP, IPB, CA, MGO #### [facility] (DEFAULT) [address] [place] [address] 83893 Bilirubin.indirect [Mass/Vol] 0.1 mg/dL Normal <0.3 [facility] Comment on above: Performed By: #### L ABHSTI1, LIPA, HFP, IPB, CA, MGO #### [facility] (DEFAULT) [address] [place] [address] 23676 Protein [Mass/Vol] 5.6 g/dL Low 6.4-8.3 [facility] Comment on above: Performed By: #### L ABHSTI1, LIPA, HFP, IPB, CA, MGO #### [facility] (DEFAULT) [address] [place] [address] 25905 IRON/IRON BINDING/TRANSFERRI Non 01-10-2025 Interpretation and review of laboratory results Abnormal [facility] Iron [Mass/Vol] 41 ug/dL [facility] Iron binding capacity [Mass/Vol] 151 Low [facility] Iron saturation [Mass fraction] 27 % 20 - 55 % [facility] Transferrin [Mass/Vol] 121 mg/dL Low 200 - 400 mg/dL [facility] Iron [Mass/Vol] 41 ug/dL Normal 40-174 [facility] Comment on above: Performed By: #### L ABHSTI1, LIPA, HFP, IPB, CA, MGO #### [facility] (DEFAULT) [address] [place] [address] 90981 Iron Saturation 27 % Normal 20-55 [facility] Comment on above: Performed By: #### L ABHSTI1, LIPA, HFP, IPB, CA, MGO #### [facility] (DEFAULT) [address] [place] [address] 37026 Total Iron Binding Capacity 151 mcg/dL Low 250-425 [facility] Comment on above: Performed By: #### L ABHSTI1, LIPA, HFP, IPB, CA, MGO #### [facility] (DEFAULT) [address] [place] [address] Transferrin [Mass/Vol] 121 mg/dL Low 200-400 [facility] Comment on above: Performed By: #### L ABHSTI1, LIPA, HFP, IPB, CA, MGO #### [facility] (DEFAULT) [address] [place] [address] 05157 MAGNESIUMon 01-10-2025 Interpretation and review of laboratory results Normal [facility] Magnesium [Mass/Vol] 1.8 mg/dL 1.6 - 2 .6 mg/dL [facility] Magnesium [Mass/Vol] 1.8 mg/dL Normal 1.6-2.6 [facility] Comment on above: Performed By: #### L ABHSTI1, LIPA, HFP, IPB, CA, MGO #### [facility] (DEFAULT) [address] [place] [address] 72680 NT-PRO B-TYPE NATRIURETIC PE PTIDEOrdered By: Roderick Mcmillan on 01-10-2025 Interpretation and review of laboratory results Abnormal [facility] Natriuretic peptide.B prohormone N-Terminal IA [Mass/Vol] 636853 pg/mL High NINF - 540 pg/mL [facility] NT-PRO B-TYPE NATRIURETIC PE PTIDEon 01-10-2025 Natriuretic peptide B (Bld) [Mass/Vol] 150227 pg/mL High <=540 [facility] Comment on above: Performed By: #### L ABHSTI1, LIPA, HFP, IPB, CA, MGO #### [facility] (DEFAULT) [address] [place] [address] 75666 No Panel Informationon 01-10 [facility] Interpretation and review of laboratory results Abnormal [facility] PHOSPHATE, INORGANICon 01-10 Phosphate [Mass/Vol] 6.5 mg/dL High 2.2 - 4 .6 mg/dL [facility] Phosphorous 6.5 mg/dL High 2.2-4.6 [facility] Comment on above: Performed By: #### L ABHSTI1, LIPA, HFP, IPB, CA, MGO #### [facility] (DEFAULT) [address] [place] [address] 79038 URIC ACIDon 01-10-2025 Interpretation and review of laboratory results Normal [facility] Urate [Mass/Vol] 4.1 mg/dL 3.5 - 7.0 mg/dL [facility] Urate [Mass/Vol] 4.1 mg/dL Normal 3.5-7.0 [facility] Comment on above: Performed By: #### L ABHSTI1, LIPA, HFP, IPB, CA, MGO #### [facility] (DEFAULT) [address] [place] [address] 48340 URINE CULTUREon 01-10-2025 Bacteria identified Cx Nom (Unsp spec) No Growth [facility] US.doppler Lower extremity v ein - bilateralOrdered By: Jossue Pennington on 01-10-2025 [facility] Work Phone: US.doppler Lower extremity v ein - bilateralon 01-10-2025 Radiology Study observation (narrative) [facility] CALCIUMon 01-09-2025 Calcium [Mass/Vol] 8.1 mg/dL Low 8.6 - 10. 5 mg/dL [facility] Calcium [Mass/Vol] 8.1 mg/dL Low 8.6-10.5 [facility] Comment on above: Performed By: #### L ABHSTI1, LIPA, HFP, IPB, CA, MGO #### [facility] (DEFAULT) [address] [place] [address] 43498 CBC,PLATELETSon 01-09-2025 Erythrocyte distribution width (RBC) [Ratio] 19.6 % High 10.9 - 14.3 % [facility] Hematocrit (Bld) [Volume fraction] 28.2 % Low 39.6 - 48.8 % [facility] Hemoglobin (Bld) [Mass/Vol] 8.9 g/dL Low 13.4 - 16.8 g/dL [facility] Interpretation and review of laboratory results Abnormal [facility] MCH (RBC) [Entitic mass] 29.6 pg 26.1 - 33.3 pg [facility] MCHC (RBC) [Mass/Vol] 31.6 g/dL Low 31.9 - 36.5 g/dL [facility] MCV (RBC) [Entitic vol] 93.7 fL 79.0 - 94.5 fL [facility] Platelet mean volume (Bld) [Entitic vol] 8.8 fL 8.7 - 12.3 fL [facility] Comment on above: This is an appended report. These results have been appended to a previously preliminary verified report. Platelets (Bld) [#/Vol] 113 10*3/uL Low 146 - 337 K/uL [facility] Comment on above: This is an appended report. These results have been appended to a previously preliminary verified report. RBC (Bld) [#/Vol] 3.01 10*6/uL Low [facility] WBC (Bld) [#/Vol] 11.45 10*3/uL High 3.73 - 10.10 K/uL [facility] Hematocrit (Bld) [Volume fraction] 28.2 % Low 39.6-48.8 [facility] Comment on above: Performed By: #### L KARTIK1, LIPA, HFP, IPB, CA, MGO #### [facility] (DEFAULT) [address] [place] [address] 95485 Hemoglobin (Bld) [Mass/Vol] 8.9 g/dL Low 13.4-16.8 [facility] Comment on above: Performed By: #### L ABHSTI1, LIPA, HFP, IPB, CA, MGO #### [facility] (DEFAULT) [address] [place] [address] 17354 MCV (RBC) [Entitic vol] 93.7 fL Normal 79.0-94.5 [facility] Comment on above: Performed By: #### L ABHSTI1, LIPA, HFP, IPB, CA, MGO #### [facility] (DEFAULT) [address] [place] [address] 70326 Mean Cell Hgb 29.6 pg Normal 26.1-33.3 [facility] Comment on above: Performed By: #### L ABHSTI1, LIPA, HFP, IPB, CA, MGO #### [facility] (DEFAULT) [address] [place] [address] 09674 Mean Cell Hgb Conc 31.6 g/dL Low 31.9-36.5 [facility] Comment on above: Performed By: #### L ABHSTI1, LIPA, HFP, IPB, CA, MGO #### [facility] (DEFAULT) [address] [place] [address] 44290 Platelet mean volume (Bld) [Entitic vol] 8.8 fL Normal 8.7-12.3 [facility] Comment on above: Result Comment: This is an appended report. These results have been appended to a previously preliminary verified report. Performed By: #### L ABHSTI1, LIPA, HFP, IPB, CA, MGO #### [facility] (DEFAULT) [address] [place] [address] 08980 Platelets (Bld) [#/Vol] 113 10*3/uL Low 146-337 [facility] Comment on above: Result Comment: This is an appended report. These results have been appended to a previously preliminary verified report. Performed By: #### L ABHSTI1, LIPA, HFP, IPB, CA, MGO #### [facility] (DEFAULT) [address] [place] [address] 13444 RBC (Bld) [#/Vol] 3.01 10*6/uL Low 4.38-5.83 [facility] Comment on above: Performed By: #### L ABHSTI1, LIPA, HFP, IPB, CA, MGO #### [facility] (DEFAULT) [address] [place] [address] RBC Distribution 19.6 % High 10.9-14.3 [facility] Comment on above: Performed By: #### L ABHSTI1, LIPA, HFP, IPB, CA, MGO #### [facility] (DEFAULT) [address] [place] [address] 26224 WBC (Bld) [#/Vol] 11.45 10*3/uL High 3.73-10.10 [facility] Comment on above: Performed By: #### L ABHSTI1, LIPA, HFP, IPB, CA, MGO #### [facility] (DEFAULT) [address] [place] [address] 76836 CHEM 7 (LYTES,BUN,CREA,GLUC) on 01-09-2025 Anion gap [Moles/Vol] 16 mmol/L 7 - 17 mmol/L [facility] Chloride [Moles/Vol] 97 mmol/L Low 98 - 10 8 mmol/L [facility] CO2 [Moles/Vol] 28 mmol/L 21 - 31 mmol/L [facility] Creatinine [Mass/Vol] 4.95 mg/dL High 0.70 - 1.30 mg/dL [facility] eGFR, CKD-EPI, Male 12 Low - PINF [facility] Comment on above: Reported eGFR is bas ed on the CKD-EPI 2020 equation using creatinine, age, and sex. Glucose [Mass/Vol] 58 mg/dL Low 70 - 179 mg/dL [facility] Osmolality Calc [Osmolality] 308 High [facility] Potassium [Moles/Vol] 4.2 mmol/L 3.5 - 5.0 mmol/L [facility] Sodium [Moles/Vol] 137 mmol/L 135 - 145 mmol/L [facility] Urea nitrogen [Mass/Vol] 78 mg/dL High 7 - 25 mg/dL [facility] Urea nitrogen/Creatinine [Mass ratio] 16 mg/mg [facility] Anion gap [Moles/Vol] 16 mmol/L Normal 7-17 [facility] Comment on above: Performed By: #### L ABHSTI1, LIPA, HFP, IPB, CA, MGO #### [facility] (DEFAULT) [address] [place] [address] 05902 Chloride [Moles/Vol] 97 mmol/L Low 98-108 [facility] Comment on above: Performed By: #### L ABHSTI1, LIPA, HFP, IPB, CA, MGO #### [facility] (DEFAULT) [address] [place] [address] 47908 CO2 [Moles/Vol] 28 mmol/L Normal 21-31 [facility] Comment on above: Performed By: #### L ABHSTI1, LIPA, HFP, IPB, CA, MGO #### [facility] (DEFAULT) [address] [place] [address] 87196 Creatinine [Mass/Vol] 4.95 mg/dL High 0.70-1.30 [facility] Comment on above: Performed By: #### L ABHSTI1, LIPA, HFP, IPB, CA, MGO #### [facility] (DEFAULT) [address] [place] [address] 55557 GFR/1.73 sq M.predicted among non-blacks MDRD (S/P/Bld) [Vol rate/Area] 12 mL/min/{1.73_m2} Low >=60 [facility] Comment on above: Result Comment: Repo rted eGFR is based on the CKD-EPI 2020 equation using creatinine, age, and sex. Performed By: #### L ABHSTI1, LIPA, HFP, IPB, CA, MGO #### [facility] (DEFAULT) [address] [place] [address] 19278 Glucose [Mass/Vol] 58 mg/dL Low Nonfastin -179 mg/dL; Fastin-99 [facility] Comment on above: Performed By: #### L ABHSTI1, LIPA, HFP, IPB, CA, MGO #### [facility] (DEFAULT) [address] [place] [address] 65419 Osmolality [Osmolality] 308 mosm/kg High 278-305 [facility] Comment on above: Performed By: #### L ABHSTI1, LIPA, HFP, IPB, CA, MGO #### [facility] (DEFAULT) [address] [place] [address] 27183 Potassium [Moles/Vol] 4.2 mmol/L Normal 3.5-5.0 [facility] Comment on above: Performed By: #### L ABHSTI1, LIPA, HFP, IPB, CA, MGO #### [facility] (DEFAULT) [address] [place] [address] 67643 Sodium [Moles/Vol] 137 mmol/L Normal 135-145 [facility] Comment on above: Performed By: #### L ABHSTI1, LIPA, HFP, IPB, CA, MGO #### [facility] (DEFAULT) [address] [place] [address] 17764 Urea nitrogen [Mass/Vol] 78 mg/dL High 7-25 [facility] Comment on above: Performed By: #### L ABHSTI1, LIPA, HFP, IPB, CA, MGO #### [facility] (DEFAULT) [address] [place] [address] 10387 Urea nitrogen/Creatinine [Mass ratio] 16 mg/mg Normal [facility] Comment on above: Performed By: #### L ABHSTI1, LIPA, HFP, IPB, CA, MGO #### [facility] (DEFAULT) [address] [place] [address] ABDOMEN/ABDOMEN-PELVIS (I NTERPRETATION - OUTSIDE IMAGE)on [...] Increased size of metastatic lymph nodes. Normal [facility] CT Abdomen and Pelvison 12-24 IMPRESSION: 1. [...] metastases. Increased size of metastatic lymph nodes. [facility] Radiology Study observation (narrative) [facility] CT Abdomen and PelvisOrdered By: Rahul Ramírez on 01-09-2025 [facility] Chronic hepatitis differenti ation between hepatitis B and C virus panelon 01-09-2025 HBV core IgG+IgM Ql (S) Negative Negative [facility] HBV surface Ab IA Ql (S) Negative Negative [facility] HCV Ab Ql (S) Negative Negative [facility] Interpretation and review of laboratory results Normal [facility] DIALYSIS HEP PANEL-CHRONICon 01-09-2025 Hep B Core Ab,Total (IgG+IgM) Negative Normal Negative [facility] Comment on above: Performed By: #### L ABHSTI1, LIPA, HFP, IPB, CA, MGO #### [facility] (DEFAULT) [address] [place] [address] Hep B Surface Ab Negative Normal Negative [facility] Comment on above: Performed By: #### L ABHSTI1, LIPA, HFP, IPB, CA, MGO #### [facility] (DEFAULT) [address] [address] Hepatitis C Antibody Negative Normal Negative [facility] Comment on above: Performed By: #### L ABHSTI1, LIPA, HFP, IPB, CA, MGO #### [facility] (DEFAULT) [address] [place] [address] EXTRA MICROon 01-09-2025 [facility] GENERAL PROCEDUREon 01-10-20 Pascual Hale MD - [...] HD day. Pascual Hale MD Nephrology Attending [facility] Radiology Study observation (narrative) [facility] GLUCOSE POCon 01-09-2025 Glucose [Mass/Vol] 228 mg/dL High 70 - 179 mg/dL [facility] Interpretation and review of laboratory results Abnormal [facility] POC Sample Type CAPBL [facility] Test performed at address of the patient encounter. [facility] Glucose [Mass/Vol] 229 mg/dL High 70 - 179 mg/dL [facility] Interpretation and review of laboratory results Abnormal [facility] POC Sample Type CAPBL [facility] Test performed at address of the patient encounter. [facility] Glucose [Mass/Vol] 103 mg/dL 70 - 179 mg/dL [facility] POC Sample Type CAPBL [facility] Test performed at address of the patient encounter. [facility] Glucose [Mass/Vol] 93 mg/dL 70 - 179 mg/dL [facility] Test performed at address of the patient encounter. [facility] Glucose [Mass/Vol] 73 mg/dL 70 - 179 mg/dL [facility] Glucose [Mass/Vol] 99 mg/dL 70 - 179 mg/dL [facility] Glucose [Mass/Vol] 83 mg/dL 70 - 179 mg/dL [facility] Comment on above: Notified RNread back POC Sample Type CAPBL [facility] Test performed at address of the patient encounter. [facility] Glucose [Mass/Vol] 60 mg/dL Low 70 - 179 mg/dL [facility] Comment on above: Notified RNread back Interpretation and review of laboratory results Abnormal [facility] POC [facility] Test performed at address of the patient encounter. [facility] Glucose [Mass/Vol] 80 mg/dL 70 - 179 mg/dL [facility] POC Sample Type CAPBL [facility] Test performed at address of the patient encounter. [facility] Glucose [Mass/Vol] 77 mg/dL 70 - 179 mg/dL [facility] POC Sample Type CAPBL [facility] Test performed at address of the patient encounter. [facility] Glucose [Mass/Vol] 68 mg/dL Low 70 - 179 mg/dL [facility] Interpretation and review of laboratory results Abnormal [facility] POC Sample Type CAPBL [facility] Test performed at address of the patient encounter. [facility] Glucose [Mass/Vol] 100 mg/dL 70 - 179 mg/dL [facility] POC Sample Type CAPBL [facility] Test performed at address of the patient encounter. [facility] Glucose [Mass/Vol] 76 mg/dL 70 - 179 mg/dL [facility] POC Sample Type CAPBL [facility] Test performed at address of the patient encounter. [facility] Glucose [Mass/Vol] 88 mg/dL 70 - 179 mg/dL [facility] POC Sample Type CAPBL [facility] Test performed at address of the patient encounter. [facility] Glucose [Mass/Vol] 73 mg/dL 70 - 179 mg/dL [facility] POC Sample Type CAPBL [facility] Test performed at address of the patient encounter. [facility] HEP B SURFACE AG-STATOrdered By: Shanika Real on 01-09-2025 HBV surface Ag Ql (S) Negative Negative [facility] Interpretation and review of laboratory results Normal [facility] HEP B SURFACE AG-Samia 12-24 Hepatitis B Surface Ag-Stat Negative Normal Negative [facility] Comment on above: Performed By: #### L ABHSTI1, LIPA, HFP, IPB, CA, MGO #### [facility] (DEFAULT) [address] [place] [address] MAGNESIUMon 01-09-2025 Interpretation and review of laboratory results Normal [facility] Magnesium [Mass/Vol] 1.9 mg/dL 1.6 - 2 .6 mg/dL [facility] Magnesium [Mass/Vol] 1.9 mg/dL Normal 1.6-2.6 [facility] Comment on above: Performed By: #### L ABMORENOTI1, LIPA, HFP, IPB, CA, MGO #### [facility] (DEFAULT) [address] [place] [address] NT-PRO B-TYPE NATRIURETIC PE PTIDEOrdered By: Opal Rizzo on 01-09-2025 Interpretation and review of laboratory results Abnormal [facility] Natriuretic peptide.B prohormone N-Terminal IA [Mass/Vol] 951784 pg/mL High NINF - 540 pg/mL [facility] NT-PRO B-TYPE NATRIURETIC PE PTIDEon 01-09-2025 Natriuretic peptide B (Bld) [Mass/Vol] 725297 pg/mL High <=540 [facility] Comment on above: Performed By: #### L DORITA, LIPA, HFP, IPB, CA, MGO #### [facility] (DEFAULT) [address] [place], [place] [id number] No Panel Informationon 01-09 POC Sample Type VENO [facility] Test performed at address of the patient encounter. [facility] Interpretation and review of laboratory results Abnormal [facility] PHOSPHATE, INORGANICon 01-09 Phosphate [Mass/Vol] 6.1 mg/dL High 2.2 - 4 .6 mg/dL [facility] Phosphorous 6.1 mg/dL High 2.2-4.6 [facility] Comment on above: Performed By: #### L ABHSTI1, LIPA, HFP, IPB, CA, MGO #### [facility] (DEFAULT) [address] [place] [address] URINALYSIS REFLEX TO CULTURE PERFORMABLEOrdered By: Quang Bejarano on 01-09-2025 Appearance (U) Turbid Abnormal Clear [facility] Comment on above: Results may be inacc urate due to color interference. Clinical correlation recommended. Bacteria LM Ql (Urine sed) TRACE Abnormal ABSENT [facility] Color (U) Red Abnormal Yellow [facility] Comment on above: Results may be inacc urate due to color interference. Clinical correlation recommended. Epithelial cells.squamous LM Ql (Urine sed) 3-5/hpf = 1+ 0-2/hpf, 3-5/hpf = 1+ [facility] Glucose Test strip (U) [Mass/Vol] Negative Negative [facility] Comment on above: Results may be inacc urate due to color interference. Clinical correlation recommended. Interpretation and review of laboratory results Abnormal [facility] Ketones (U) [Mass/Vol] Negative Negative [facility] Comment on above: Results may be inacc urate due to color interference. Clinical correlation recommended. Leukocyte esterase Test strip Ql (U) Large Abnormal Negative [facility] Comment on above: Results may be inacc urate due to color interference. Clinical correlation recommended. Nitrite Ql (U) Positive Abnormal Negative [facility] Comment on above: Results may be inacc urate due to color interference. Clinical correlation recommended. pH (U) 6.0 [pH] 5.0 - 7.0 [facility] Comment on above: Results may be inacc urate due to color interference. Clinical correlation recommended. Protein (U) [Mass/Vol] 100 mg/dL Abnormal Negative [facility] Comment on above: Results may be inacc urate due to color interference. Clinical correlation recommended. RBC (U) [#/Vol] Moderate Abnormal Negative [facility] Comment on above: Results may be inacc urate due to color interference. Clinical correlation recommended. RBC LM.HPF (Urine sed) [#/Area] /[HPF] Abnormal [facility] Specific gravity (U) [Rel density] 1.018 1.001 - 1.035 [facility] Comment on above: Results may be inacc urate due to color interference. Clinical correlation recommended. Urobilinogen (U) [Mass/Vol] 0.2 E.U./dL 0.2 E.U/dL, 1.0 E.U/dL [facility] Comment on above: Results may be inacc urate due to color interference. Clinical correlation recommended. WBC LM.HPF (Urine sed) [#/Area] /[facility]HPF] [facility]INALYSIS REFLEX TO CULTURE PERFORMABLEon 01-09-2025 Appearance (U) Turbid Abnormal Clear [facility] Comment on above: Order Comment: For i ndwelling catheters, specimen collection is acceptable on catheter day 1 and 2 only. ? Result Comment: Resu lts may be inaccurate due to color interference. Clinical correlation recommended. Performed By: #### L ABHSTI1, LIPA, HFP, IPB, CA, MGO #### [facility] (DEFAULT) [address] [place] [address] 40754 Bacteria TRACE Abnormal ABSENT [facility] Comment on above: Order Comment: For i ndwelling catheters, specimen collection is acceptable on catheter day 1 and 2 only. ? Performed By: #### L ABHSTI1, LIPA, HFP, IPB, CA, MGO #### [facility] (DEFAULT) [address] [place] [address] 14126 Blood Urine Moderate Abnormal Negative [facility] Comment on above: Order Comment: For i ndwelling catheters, specimen collection is acceptable on catheter day 1 and 2 only. ? Result Comment: Resu lts may be inaccurate due to color interference. Clinical correlation recommended. Performed By: #### L ABHSTI1, LIPA, HFP, IPB, CA, MGO #### [facility] (DEFAULT) [address] [place] [address] 60995 Color (U) Red Abnormal Yellow [facility] Comment on above: Order Comment: For i ndwelling catheters, specimen collection is acceptable on catheter day 1 and 2 only. ? Result Comment: Resu lts may be inaccurate due to color interference. Clinical correlation recommended. Performed By: #### L ABHSTI1, LIPA, HFP, IPB, CA, MGO #### [facility] (DEFAULT) [address] [place] [address] 49823 Glucose Ql (U) Negative Normal Negative [facility] Comment on above: Order Comment: For i ndwelling catheters, specimen collection is acceptable on catheter day 1 and 2 only. ? Result Comment: Resu lts may be inaccurate due to color interference. Clinical correlation recommended. Performed By: #### L ABHSTI1, LIPA, HFP, IPB, CA, MGO #### [facility] (DEFAULT) [address] [place] [address] 95329 Ketones Ql (U) Negative Normal Negative [facility] Comment on above: Order Comment: For i ndwelling catheters, specimen collection is acceptable on catheter day 1 and 2 only. ? Result Comment: Resu lts may be inaccurate due to color interference. Clinical correlation recommended. Performed By: #### L ABHSTI1, LIPA, HFP, IPB, CA, MGO #### [facility] (DEFAULT) [address] [place] [address] 40600 Leukocyte esterase Test strip Ql (U) Large Abnormal Negative [facility] Comment on above: Order Comment: For i ndwelling catheters, specimen collection is acceptable on catheter day 1 and 2 only. ? Result Comment: Resu lts may be inaccurate due to color interference. Clinical correlation recommended. Performed By: #### L ABHSTI1, LIPA, HFP, IPB, CA, MGO #### [facility] (DEFAULT) [address] [place] [address] 56365 Nitrites Urine Positive Abnormal Negative [facility] Comment on above: Order Comment: For i ndwelling catheters, specimen collection is acceptable on catheter day 1 and 2 only. ? Result Comment: Resu lts may be inaccurate due to color interference. Clinical correlation recommended. Performed By: #### L ABHSTI1, LIPA, HFP, IPB, CA, MGO #### [facility] (DEFAULT) [address] [place] [address] 25744 pH (U) 6.0 [pH] Normal 5.0-7.0 [facility] Comment on above: Order Comment: For i ndwelling catheters, specimen collection is acceptable on catheter day 1 and 2 only. ? Result Comment: Resu lts may be inaccurate due to color interference. Clinical correlation recommended. Performed By: #### L ABHSTI1, LIPA, HFP, IPB, CA, MGO #### [facility] (DEFAULT) [address] [place] [address] 10817 Protein Urine 100 mg/dL Abnormal Negative [facility] Comment on above: Order Comment: For i ndwelling catheters, specimen collection is acceptable on catheter day 1 and 2 only. ? Result Comment: Resu lts may be inaccurate due to color interference. Clinical correlation recommended. Performed By: #### L ABHSTI1, LIPA, HFP, IPB, CA, MGO #### [facility] (DEFAULT) [address] [place] [address] 35573 RBC LM.HPF (Urine sed) [#/Area] /[HPF] Abnormal 0-2 [facility] Comment on above: Order Comment: For i ndwelling catheters, specimen collection is acceptable on catheter day 1 and 2 only. ? Performed By: #### L ABHSTI1, LIPA, HFP, IPB, CA, MGO #### [facility] (DEFAULT) [address] [place] [address] 22569 Specific [place] Urine 1.018 Normal 1.001-1.035 [facility] Comment on above: Order Comment: For i ndwelling catheters, specimen collection is acceptable on catheter day 1 and 2 only. ? Result Comment: Resu lts may be inaccurate due to color interference. Clinical correlation recommended. Performed By: #### L ABHSTI1, LIPA, HFP, IPB, CA, MGO #### U [facility] (DEFAULT) [address] [place] [address] 47686 Squamous/Epithelial Cells, Urine 3-5/hpf = 1+ Normal 0-2/hpf, 3-5/hpf = 1+ [facility] Comment on above: Order Comment: For i ndwelling catheters, specimen collection is acceptable on catheter day 1 and 2 only. ? Performed By: #### L ABHSTI1, LIPA, HFP, IPB, CA, MGO #### [facility] (DEFAULT) [address] [place] [address] 59832 Urobilinogen Urine 0.2 E.U./dL Normal 0.2 E.U/d L, 1.0 E.U/dL [facility] Comment on above: Order Comment: For i ndwelling catheters, specimen collection is acceptable on catheter day 1 and 2 only. ? Result Comment: Resu lts may be inaccurate due to color interference. Clinical correlation recommended. Performed By: #### L ABHSTI1, LIPA, HFP, IPB, CA, MGO #### [facility] (DEFAULT) [address] [place] [address] 49079 WBC LM.HPF (Urine sed) [#/Area] /[HPF] Abnormal 0 - 5 [facility] Comment on above: Order Comment: For i ndwelling catheters, specimen collection is acceptable on catheter day 1 and 2 only. ? Performed By: #### L ABHSTI1, LIPA, HFP, IPB, CA, MGO #### U [facility] (DEFAULT) [address] [place] [address] 25960 URINE CULTUREon 01-09-2025 Bacteria identified Cx Nom (U) No Growth Normal [facility] Comment on above: Order Comment: For i [...] LIPA, HFP, IPB, CA, MGO #### U [facility] (DEFAULT) [address] [place] [address] 39848 Urine Cultureon 01-09-2025 [facility] Culture exhibits no growth. Normal [facility] Comment on above: Performed By: #### M 100.6870 ####[facility] [id number] [place], [address] 12 Lead EKGon 01-08-2025 12 Lead EKG Normal [facility] Abdomen/Pelvis W IV Cont ONL Yon 01-08-2025 Abdomen/Pelvis W IV Cont ONLY Normal [facility] Absolute lymphocyte countOrd ered By: Mya Haile on 01-08-2025 Lymphocytes Auto (Unsp spec) [#/Vol] 0.50 10*3/uL Low 0.83-4.51 [facility] Activated partial thrombopla stin time (aPTT) in platelet poor plasma by coagulation aOrdered By: Mya Haile on 01-08-2025 aPTT Coag (PPP) [Time] 25.6 s 24.1-36.2 [facility] Anion gap in Serum or Plasma Ordered By: Mya Haile on 01-08-2025 Anion gap [Moles/Vol] 21 mmol/L High 5-15 [facility] BUN/creatinine ratioOrdered By: yMa Haile on 01-08-2025 Urea nitrogen/Creatinine [Mass ratio] 17.8 mg/mg 10-20 [facility] Bilirubin Test strip Ql (U)O rdered By: Mya Haile on 01-08-2025 Bilirubin Ql (U) Negative Negative [facility] Bilirubin, totalOrdered By: Mya Haile on 01-08-2025 Bilirubin [Mass/Vol] 0.55 mg/dL 0.00-1.30 [facility] Blood band neutrophil count as percentage of total leukocytesOrdered By: Mya Haile on 01-08-2025 Band form neutrophils/100 WBC (Bld) 3 % 0-5 [facility] Blood lymphocytes/100 leukoc ytesOrdered By: Mya Haile on 01-08-2025 Lymphocytes/100 WBC (Bld) 4 % Low 19-41 [facility] Blood metamyelocytes/100 makenzie kocytesOrdered By: Mya Haile on 01-08-2025 Metamyelocytes/100 WBC (Bld) 2 % High 0-1 [facility] Blood monocytes/100 leukocyt esOrdered By: Mya Haile on 01-08-2025 Monocytes/100 WBC (Bld) 5 % 0-10 [facility] Blood promyelocytes/100 leuk ocytesOrdered By: Mya Haile on 01-08-2025 Promyelocytes/100 WBC (Bld) 1 % High 0-0 [facility] Blood segmented neutrophils/ 100 leukocytesOrdered By: Mya Haile on 01-08-2025 Segmented neutrophils/100 WBC (Bld) 84 % High 47-70 [facility] CALCIUMon 01-08-2025 Calcium [Mass/Vol] 7.9 mg/dL Low 8.6 - 10. 5 mg/dL [facility] Calcium [Mass/Vol] 7.9 mg/dL Low 8.6-10.5 [facility] Comment on above: Performed By: #### L ABHSTI1, LIPA, HFP, IPB, CA, MGO #### [facility] (DEFAULT) [address] [place] [address] 47341 CBC AND ELECTRONIC DIFFon Erythrocyte distribution width (RBC) [Ratio] 19.5 % High 10.9 - 14.3 % [facility] Hematocrit (Bld) [Volume fraction] 27.7 % Low 39.6 - 48.8 % [facility] Hemoglobin (Bld) [Mass/Vol] 8.7 g/dL Low 13.4 - 16.8 g/dL [facility] MCH (RBC) [Entitic mass] 29.5 pg 26.1 - 33.3 pg [facility] MCHC (RBC) [Mass/Vol] 31.4 g/dL Low 31.9 - 36.5 g/dL [facility] MCV (RBC) [Entitic vol] 93.9 fL 79.0 - 94.5 fL [facility] Platelet mean volume (Bld) [Entitic vol] 11.9 fL 8.7 - 12.3 fL [facility] Platelets (Bld) [#/Vol] 145 10*3/uL Low 146 - 337 K/uL [facility] RBC (Bld) [#/Vol] 2.95 10*6/uL [facility] WBC (Bld) [#/Vol] 10.32 10*3/uL High 3.73 - 10.10 K/uL [facility] Hematocrit (Bld) [Volume fraction] 27.7 % Low 39.6-48.8 [facility] Comment on above: Performed By: #### L ABHSTI1, LIPA, HFP, IPB, CA, MGO #### [facility] (DEFAULT) [address] [place] [address] 98483 Hemoglobin (Bld) [Mass/Vol] 8.7 g/dL Low 13.4-16.8 [facility] Comment on above: Performed By: #### L ABHSTI1, LIPA, HFP, IPB, CA, MGO #### [facility] (DEFAULT) [address] [place] [address] 76357 MCV (RBC) [Entitic vol] 93.9 fL Normal 79.0-94.5 [facility] Comment on above: Performed By: #### L ABHSTI1, LIPA, HFP, IPB, CA, MGO #### [facility] (DEFAULT) [address] [place] [address] 00811 Mean Cell Hgb 29.5 pg Normal 26.1-33.3 [facility] Comment on above: Performed By: #### L ABHSTI1, LIPA, HFP, IPB, CA, MGO #### [facility] (DEFAULT) [address] [place] [address] 94906 Mean Cell Hgb Conc 31.4 g/dL Low 31.9-36.5 [facility] Comment on above: Performed By: #### L ABHSTI1, LIPA, HFP, IPB, CA, MGO #### [facility] (DEFAULT) [address] [place] [address] 87024 Platelet mean volume (Bld) [Entitic vol] 11.9 fL Normal 8.7-12.3 [facility] Comment on above: Performed By: #### L ABHSTI1, LIPA, HFP, IPB, CA, MGO #### [facility] (DEFAULT) [address] [place] [address] 57409 Platelets (Bld) [#/Vol] 145 10*3/uL Low 146-337 [facility] Comment on above: Performed By: #### L ABHSTI1, LIPA, HFP, IPB, CA, MGO #### [facility] (DEFAULT) [address] [place] [address] 14005 RBC (Bld) [#/Vol] 2.95 10*6/uL Low 4.38-5.83 [facility] Comment on above: Performed By: #### L ABHSTI1, LIPA, HFP, IPB, CA, MGO #### [facility] (DEFAULT) [address] [place] [address] 41241 RBC Distribution 19.5 % High 10.9-14.3 [facility] Comment on above: Performed By: #### L ABHSTI1, LIPA, HFP, IPB, CA, MGO #### [facility] (DEFAULT) [address] [place] [address] 47670 WBC (Bld) [#/Vol] 10.32 10*3/uL High 3.73-10.10 [facility] Comment on above: Performed By: #### L ABHSTI1, LIPA, HFP, IPB, CA, MGO #### [facility] (DEFAULT) [address] [place] [address] 46889 CBC W/Diff, Automatedon 06- Absolute Lymph 0.50 X10 3/uL Low 0.83-4.51 [facility] Comment on above: Performed By: #### L 100.0100, L300.4310, L500.4050, L501.2450, L503.6005, L300.3900 ####[facility] [id number] [place], [address] PATH REV May foll Normal [facility] Comment on above: Performed By: #### L 100.0100, L300.4310, L500.4050, L501.2450, L503.6005, L300.3900 ####[facility] [id number] [place], [address] Absolute Neut 10.9 X10 3/uL High 2.0-7.7 [facility] Comment on above: Performed By: #### L 100.0100, L300.4310, L500.4050, L501.2450, L503.6005, L300.3900 ####[facility] [address] [place], [address] CHM 7 - EDon 01-08-2025 Anion gap [Moles/Vol] 20 mmol/L High 7 - 17 mmol/L [facility] Chloride [Moles/Vol] 98 mmol/L 98 - 10 8 mmol/L [facility] CO2 [Moles/Vol] 24 mmol/L 21 - 31 mmol/L [facility] Creatinine [Mass/Vol] 5.34 mg/dL High 0.70 - 1.30 mg/dL [facility] eGFR, CKD-EPI, Male 11 Low - PINF [facility] Comment on above: Reported eGFR is bas ed on the CKD-EPI 2020 equation using creatinine, age, and sex. Glucose [Mass/Vol] 48 mg/dL Critically low 70 - 17 9 mg/dL [facility] Interpretation and review of laboratory results Abnormal [facility] Osmolality Calc [Osmolality] 316 High [facility] Potassium [Moles/Vol] 4.2 mmol/L 3.5 - 5.0 mmol/L [facility] Sodium [Moles/Vol] 138 mmol/L 135 - 145 mmol/L [facility] Urea nitrogen [Mass/Vol] 96 mg/dL High 7 - 25 mg/dL [facility] Urea nitrogen/Creatinine [Mass ratio] 18 mg/mg [facility] Anion gap [Moles/Vol] 20 mmol/L High 7-17 [facility] Comment on above: Performed By: #### C 7ED #### [facility] (DEFAULT) [address] [place] [address] 58444 Chloride [Moles/Vol] 98 mmol/L Normal 98-108 [facility] Comment on above: Performed By: #### C 7ED #### [facility] (DEFAULT) [address] [place] [address] 81377 CO2 [Moles/Vol] 24 mmol/L Normal 21-31 [facility] Comment on above: Performed By: #### C 7ED #### [facility] (DEFAULT) [address] [place] [address] 20690 Creatinine [Mass/Vol] 5.34 mg/dL High 0.70-1.30 [facility] Comment on above: Performed By: #### Aaron 7ED #### [facility] (DEFAULT) [address] [place] [address] 40876 GFR/1.73 sq M.predicted among non-blacks MDRD (S/P/Bld) [Vol rate/Area] 11 mL/min/{1.73_m2} Low >=60 [facility] Comment on above: Result Comment: Repo rted eGFR is based on the CKD-EPI 2020 equation using creatinine, age, and sex. Performed By: #### Aaron 7ED #### [facility] (DEFAULT) [address] [place] [address] 20552 Glucose [Mass/Vol] 48 mg/dL Critically low Nonfast in-179 mg/dL; Fastin-99 [facility] Comment on above: Performed By: #### Aaron 7ED #### [facility] (DEFAULT) [address] [place] [address] 74985 Osmolality [Osmolality] 316 mosm/kg High 278-305 [facility] Comment on above: Performed By: #### Aaron 7ED #### [facility] (DEFAULT) [address] [place] [address] 09901 Potassium [Moles/Vol] 4.2 mmol/L Normal 3.5-5.0 [facility] Comment on above: Performed By: #### C 7ED #### [facility] (DEFAULT) [address] [place] [address] 26552 Sodium [Moles/Vol] 138 mmol/L Normal 135-145 [facility] Comment on above: Performed By: #### C 7ED #### [facility] (DEFAULT) [address] [place] [address] 10059 Urea nitrogen [Mass/Vol] 96 mg/dL High 7-25 [facility] Comment on above: Performed By: #### C 7ED #### [facility] (DEFAULT) [address] [place] [address] 99583 Urea nitrogen/Creatinine [Mass ratio] 18 mg/mg Normal [facility] Comment on above: Performed By: #### C 7ED #### [facility] (DEFAULT) [address] [place] [address] 52496 Anion gap [Moles/Vol] 22 mmol/L High 7-17 [facility] Comment on above: Performed By: #### L DO, URICB, C7ED #### [facility] (DEFAULT) [address] [place] [address] 28421 Chloride [Moles/Vol] 98 mmol/L Normal 98-108 [facility] Comment on above: Performed By: #### L DO, URICB, C7ED #### [facility] (DEFAULT) [address] [place] [address] 18404 CO2 [Moles/Vol] 21 mmol/L Normal 21-31 [facility] Comment on above: Performed By: #### L DO, URICB, C7ED #### [facility] (DEFAULT) [address] [place] [address] 57216 Creatinine [Mass/Vol] 5.35 mg/dL High 0.70-1.30 [facility] Comment on above: Performed By: #### L DO, URICB, C7ED #### [facility] (DEFAULT) [address] [place] [address] 68743 GFR/1.73 sq M.predicted among non-blacks MDRD (S/P/Bld) [Vol rate/Area] 11 mL/min/{1.73_m2} Low >=60 [facility] Comment on above: Result Comment: Repo rted eGFR is based on the CKD-EPI 2020 equation using creatinine, age, and sex. Performed By: #### L DO, URICB, C7ED #### [facility] (DEFAULT) [address] [place] [address] 40236 Glucose [Mass/Vol] 48 mg/dL Critically low Nonfast in-179 mg/dL; Fastin-99 [facility] Comment on above: Performed By: #### L DO, URICB, C7ED #### [facility] (DEFAULT) [address] [place] [address] 46603 Osmolality [Osmolality] 314 mosm/kg High 278-305 [facility] Comment on above: Performed By: #### L DO, URICB, C7ED #### [facility] (DEFAULT) [address] [place] [address] 12177 Potassium [Moles/Vol] 4.4 mmol/L Normal 3.5-5.0 [facility] Comment on above: Performed By: #### L DO, URICB, C7ED #### [facility] (DEFAULT) [address] [place] [address] 47558 Sodium [Moles/Vol] 137 mmol/L Normal 135-145 [facility] Comment on above: Performed By: #### L DO, URICB, C7ED #### [facility] (DEFAULT) [address] [place] [address] 29898 Urea nitrogen [Mass/Vol] 94 mg/dL High 7-25 [facility] Comment on above: Performed By: #### L DO, URICB, C7ED #### [facility] (DEFAULT) [address] [place] [address] Urea nitrogen/Creatinine [Mass ratio] 18 mg/mg Normal [facility] Comment on above: Performed By: #### L DO, URICB, C7ED #### [facility] (DEFAULT) [address] [place] [address] CH 7 - EDOrdered By: Harpal Oshea on 01-08-2025 Anion gap [Moles/Vol] 22 mmol/L High 7 - 17 mmol/L [facility] Chloride [Moles/Vol] 98 mmol/L 98 - 10 8 mmol/L [facility] CO2 [Moles/Vol] 21 mmol/L 21 - 31 mmol/L [facility] Creatinine [Mass/Vol] 5.35 mg/dL High 0.70 - 1.30 mg/dL [facility] eGFR, CKD-EPI, Male 11 Low - PINF [facility] Comment on above: Reported eGFR is bas ed on the CKD-EPI 2020 equation using creatinine, age, and sex. Glucose [Mass/Vol] 48 mg/dL Critically low 70 - 17 9 mg/dL [facility] Interpretation and review of laboratory results Abnormal [facility] Osmolality Calc [Osmolality] 314 High [facility] Potassium [Moles/Vol] 4.4 mmol/L 3.5 - 5.0 mmol/L [facility] Sodium [Moles/Vol] 137 mmol/L 135 - 145 mmol/L [facility] Urea nitrogen [Mass/Vol] 94 mg/dL High 7 - 25 mg/dL [facility] Urea nitrogen/Creatinine [Mass ratio] 18 mg/mg [facility] Chest W/WO Contraston CTA Chest W/WO Contrast Normal [facility] Carbon dioxide, total [Moles /volume] in Central venous bloodOrdered By: Mya Haile on 01-08-2025 CO2 [Moles/Vol] 23.0 mmol/L 21.0-32.0 [facility] Chloride assayOrdered By: Boby Haile on 01-08-2025 Chloride [Moles/Vol] 95 mmol/L Low 98-108 [facility] Comprehensive Metabolic Prof ilon 01-08-2025 Albumin [Mass/Vol] 3.3 g/dL Low 3.4-4.[address] [facility] Comment on above: Performed By: #### L 100.0100, L300.4310, L500.4050, L501.2450, L503.6005, L300.3900 ####[facility] [address] [place], [address] Albumin/Globulin [Mass ratio] 1.2 {ratio} Normal 0.9-2.4 [facility] Comment on above: Performed By: #### L 100.0100, L300.4310, L500.4050, L501.2450, L503.6005, L300.3900 ####[facility] [address] [place], [address] ALK PHOS 67 U/L Normal 40-129 [facility] Comment on above: Performed By: #### L 100.0100, L300.4310, L500.4050, L501.2450, L503.6005, L300.3900 ####[facility] [address] [place], [address] ALT [Catalytic activity/Vol] 29 U/L Normal <=46 [facility] Comment on above: Performed By: #### L 100.0100, L300.4310, L500.4050, L501.2450, L503.6005, L300.3900 ####[facility] [address] [place], [address] AST [Catalytic activity/Vol] 25 U/L Normal <=37 [facility] Comment on above: Performed By: #### L 100.0100, L300.4310, L500.4050, L501.2450, L503.6005, L300.3900 ####[facility] [address] [place], [address] Bilirubin [Mass/Vol] 0.55 mg/dL Normal 0.00-1.30 [facility] Comment on above: Performed By: #### L 100.0100, L300.4310, L500.4050, L501.2450, L503.6005, L300.3900 ####[facility] [address] [place], [address] BUN/CRE 17.8 RATIO Normal 10-20 [facility] Comment on above: Performed By: #### L 100.0100, L300.4310, L500.4050, L501.2450, L503.6005, L300.3900 ####[facility] [address] [place], [address] Calcium [Mass/Vol] 8.6 mg/dL Normal 7.6-11.[address] [facility] Comment on above: Performed By: #### L 100.0100, L300.4310, L500.4050, L501.2450, L503.6005, L300.3900 ####[facility] [address] [place], [address] Chloride [Moles/Vol] 95 mmol/L Low 98-108 [facility] Comment on above: Performed By: #### L 100.0100, L300.4310, L500.4050, L501.2450, L503.6005, L300.3900 ####[facility] [address] [place], [address] CO2 [Moles/Vol] 23.0 mmol/L Normal 21.0-32.0 [facility] Comment on above: Performed By: #### L 100.0100, L300.4310, L500.4050, L501.2450, L503.6005, L300.3900 ####[facility] [address] [place], [address] Creatinine [Mass/Vol] 4.92 mg/dL High 0.70-1.20 [facility] Comment on above: Performed By: #### L 100.0100, L300.4310, L500.4050, L501.2450, L503.6005, L300.3900 ####[facility] [address] [place], [place], [phone] ECRCL 17.67 ml/min Low 50-250 [facility] Comment on above: Performed By: #### L 100.0100, L300.4310, L500.4050, L501.2450, L503.6005, L300.3900 ####[facility] [address] [place], [address] GAP 21 High 5-15 [facility] Comment on above: Performed By: #### L 100.0100, L300.4310, L500.4050, L501.2450, L503.6005, L300.3900 ####[facility] [address] [place], [place], [id number](926) GFR/1.73 sq M.predicted among non-blacks MDRD (S/P/Bld) [Vol rate/Area] 12 mL/min/{1.73_m2} Low >60 [facility] Comment on above: Result Comment: mL/m in/1.73m2 CKD-EPI Creatinine Equation (2020) Performed By: #### L 100.0100, L300.4310, L500.4050, L501.2450, L503.6005, L300.3900 ####[facility] [address] [place], [address] Globulin (S) [Mass/Vol] 2.8 g/dL Normal 2.2-4.2 [facility] Comment on above: Performed By: #### L 100.0100, L300.4310, L500.4050, L501.2450, L503.6005, L300.3900 ####[facility] [address] [place], [address] Glucose [Mass/Vol] 162 mg/dL High 70-[address] [facility] Comment on above: Performed By: #### L 100.0100, L300.4310, L500.4050, L501.2450, L503.6005, L300.3900 ####[facility] [address] [place], [address] Potassium [Moles/Vol] 4.7 mmol/L Normal 3.3-5.1 [facility] Comment on above: Performed By: #### L 100.0100, L300.4310, L500.4050, L501.2450, L503.6005, L300.3900 ####[facility] [address] [place], [address] Sodium [Moles/Vol] 139 mmol/L Normal 133-[address] [facility] Comment on above: Performed By: #### L 100.0100, L300.4310, L500.4050, L501.2450, L503.6005, L300.3900 ####[facility] [address] [place], [address] T PROT 6.1 g/dL Normal 5.9-8.4 [facility] Comment on above: Performed By: #### L 100.0100, L300.4310, L500.4050, L501.2450, L503.6005, L300.3900 ####[facility] [address] [place], [address] Urea nitrogen [Mass/Vol] 87 mg/dL High 4-19 [facility] Comment on above: Performed By: #### L 100.0100, L300.4310, L500.4050, L501.2450, L503.6005, L300.3900 ####[facility] [address] [place], [address] Emergency Department Summary on 01-08-2025 Emergency Department Summary Normal [facility] Erythrocyte distribution wid th ratioOrdered By: Mya Haile on 01-08-2025 Erythrocyte distribution width (RBC) [Ratio] 18.9 % High 11.6-14.6 [facility] Erythrocyte distribution wid th standard deviationOrdered By: Mya Hernandez on 01-08-2025 Erythrocyte distribution width (RBC) [Ratio] 65.0 fl High 35.1-43.9 [facility] Erythrocyte morphology asses smentOrdered By: Mya Haile on 01-08-2025 RBC morphology finding Nom (Bld) NORM C+C NORMAL NORM C&C [facility] GLUCOSE POCon 01-08-2025 Glucose [Mass/Vol] 60 mg/dL Low 70 - 179 mg/dL [facility] Interpretation and review of laboratory results Abnormal [facility] POC Sample Type CAPBL [facility] Test performed at address of the patient encounter. [facility] Glucose [Mass/Vol] 44 mg/dL Critically low 70 - 17 9 mg/dL [facility] Comment on above: RNonly -OrderPresent Interpretation and review of laboratory results Abnormal [facility] POC Sample Type CAPBL [facility] Test performed at address of the patient encounter. [facility] Glomerular filtration rate ( GFR) estimation/1.73 sq m using serum, plasma, or whole bOrdered By: Mya Haile on 01-08-2025 GFR/1.73 sq M.predicted among non-blacks MDRD (S/P/Bld) [Vol rate/Area] 12 mL/min/{1.73_m2} Low >60 [facility] HEPATIC FUNCTION PANELon Albumin [Mass/Vol] 2.9 g/dL Low 3.5 - 5.0 g/dL [facility] ALP [Catalytic activity/Vol] 46 U/L 32 - 126 U/L [facility] ALT [Catalytic activity/Vol] 19 U/L 10 - 52 U/L [facility] AST [Catalytic activity/Vol] 71 U/L High 10 - 39 U/L [facility] Comment on above: Specimen moderately hemolyzed. AST results may be significantly falsely elevated. Consider recollection. Bilirubin [Mass/Vol] 0.7 mg/dL NINF - 1.5 mg/dL [facility] Bilirubin.direct [Mass/Vol] mg/dL [facility] mg/dL [facility] Comment on above: Specimen hemolyzed. Direct bilirubin results may be falsely decreased. Interpret within the clinical context. Protein [Mass/Vol] 5.5 g/dL Low 6.4 - 8.3 g/dL [facility] Albumin [Mass/Vol] 2.9 g/dL Low 3.5-5.0 [facility] Comment on above: Performed By: #### L ABHSTI1, LIPA, HFP, IPB, CA, MGO #### [facility] (DEFAULT) [address] [place] [address] ALP [Catalytic activity/Vol] 46 U/L Normal 32-126 [facility] Comment on above: Performed By: #### L ABHSTI1, LIPA, HFP, IPB, CA, MGO #### [facility] (DEFAULT) [address] [place] [address] ALT [Catalytic activity/Vol] 19 U/L Normal 10-52 [facility] Comment on above: Performed By: #### L ABHSTI1, LIPA, HFP, IPB, CA, MGO #### [facility] (DEFAULT) [address] [place] [address] AST [Catalytic activity/Vol] 71 U/L High 10-39 [facility] Comment on above: Result Comment: Spec imen moderately hemolyzed. AST results may be significantly falsely elevated. Consider recollection. Performed By: #### L ABHSTI1, LIPA, HFP, IPB, CA, MGO #### [facility] (DEFAULT) [address] [place] [address] Bilirubin [Mass/Vol] 0.7 mg/dL Normal <1.5 [facility] Comment on above: Performed By: #### L ABHSTI1, LIPA, HFP, IPB, CA, MGO #### [facility] (DEFAULT) [address] [place] [address] Bilirubin Direct < Normal <0.3 [facility] Comment on above: Result Comment: Spec imen hemolyzed. Direct bilirubin results may be falsely decreased. Interpret within the clinical context. Performed By: #### L ABHSTI1, LIPA, HFP, IPB, CA, MGO #### [facility] (DEFAULT) [address] [place] [address] Protein [Mass/Vol] 5.5 g/dL Low 6.4-8.3 [facility] Comment on above: Performed By: #### L ABHSTI1, LIPA, HFP, IPB, CA, MGO #### [facility] (DEFAULT) [address] [place] [address] HIGH SENSITIVITY TROPONIN I - SINGLE ORDERon 01-08-2025 Interpretation and review of laboratory results Normal [facility] Troponin I.cardiac High sensitivity method [Mass/Vol] 36 ng/L NINF - 53 ng/L [facility] hs-Troponin I 36 ng/L Normal <53 [facility] Comment on above: Order Comment: Acute Coronary Syndrome (ACS): Initial Evaluation and Management: [email or web address]/Documents/Guidelines/Acu te%20Coronary%20Syndrome.pdf#search=troponin Performed By: #### L ABHSTI1, LIPA, HFP, IPB, CA, MGO #### [facility] (DEFAULT) [address] [place] [address] Hematocrit Auto (Bld) [Volum e fraction]Ordered By: Mya EmeryBrien on 01-08-2025 Hematocrit (Bld) [Volume fraction] 32.0 % Low 40-54 [facility] Hemoglobin measurementOrdere d By: Mya Dr. [facility] Hospital[facility] on 01-08-2025 Hemoglobin (Bld) [Mass/Vol] 10.1 g/dL Low 13.0-16.5 [facility] Influenza virus A and B and SARS-CoV-2 (COVID-19) and Respiratory syncytial virus RNAOrdered By: [facility] on 01-08-2025 SARS-CoV-2 (COVID-19) RNA TRICIA+probe Ql (Unsp spec) [facility] Ketones Test strip Ql (U)Ord ered By: [facility]jamin[facility] on 01-08-2025 Ketones Ql (U) Negative Negative [facility] L499.0042on 01-08-2025 Trop T High Sen 72 ng/L Invalid Interpretation Code <=22 [facility] Comment on above: Result Comment: Crit ical Result(s) Called at 1354: by: JESSICA ELLIS. ??Results read back by same. Performed By: #### L 499.0042 ####[facility] [address] [place], [place], [id number] L501.4021on 01-08-2025 Trop T High Sen 80 ng/L Invalid Interpretation Code <=22 [facility] Comment on above: Result Comment: Crit ical Result(s) Called at 1149: by: JESSICA VIVEROS. ??Results read back by same. Performed By: #### L 501.4021 ####[facility] [address] [place], [place], [address] LACTATE DEHYDROGENASEon 12-24 Interpretation and review of laboratory results Abnormal [facility] LDH Lactate to pyruvate reaction [Catalytic activity/Vol] 454 U/L High 100 - 190 [facility] Total 454 U/L High 100-190 [facility] Comment on above: Performed By: #### L DO, URICB, C7ED #### [facility] (DEFAULT) [address] [place] [address] LACTATE, INITIALon Lactate [Moles/Vol] 1.5 mmol/L 0.5 - 1. 6 mmol/L [facility] 0 Hour Lactate 1.5 mmol/L Normal 0.5-1.6 [facility] Comment on above: Performed By: #### L ABHSTI1, LIPA, HFP, IPB, CA, MGO #### [facility] (DEFAULT) [address] [place] [address] LIPASEon 01-08-2025 Lipase [Catalytic activity/Vol] 13 U/L 11 - 82 U/L [facility] Lipase [Catalytic activity/Vol] 13 U/L Normal 82 [facility] Comment on above: Performed By: #### L ABHSTI1, LIPA, HFP, IPB, CA, MGO #### [facility] (DEFAULT) [address] [place] [address] Lactic Acidon 01-08-2025 Lactate [Moles/Vol] 2.0 mmol/L Normal 0.0-2.0 [facility] Comment on above: Result Comment: Crit ical Result(s) Called EVELYN WINSLOW at: 1614 by:JOSE ALEJANDRO??Results read back by same. Performed By: #### L 503.6005 ####[facility] [address] [place], [place], [address] Lactate [Moles/Vol] 2.3 mmol/L Invalid Interpretation Code 0.0-2.0 [facility] Comment on above: Order Comment: Y Result Comment: Crit ical Result(s) Called at 1157: by: JESSICA VIVEROS. ??Results read back by same. Performed By: #### L 100.0100, L300.4310, L500.4050, L501.2450, L503.6005, L300.3900 ####[facility] [address] [place], [address] Lipaseon 01-08-2025 Lipase [Catalytic activity/Vol] 28 U/L Normal 13-75 [facility] Comment on above: Result Comment: Vanesa mcghee note:LIPASE revised reference range effective 22.New Lipase methodology. Expected to produce lower valuesthan the previous assay method.NEW Reference Range: 13 - 75 U/L Performed By: #### L 100.0100, L300.4310, L500.4050, L501.2450, L503.6005, L300.3900 ####[facility] [address] [place], [address] M100.678on 01-08-2025 M100.678 SARS-CoV-2 (COVID 19 ) Negative INFLUENZA A Negative INFLUENZA B Negative RSV PCR Negative Normal [facility] Comment on above: Performed By: #### M 100.678 ####[facility] [address] [place], [address] MAGNESIUMon 01-08-2025 Magnesium [Mass/Vol] 2.2 mg/dL 1.6 - 2 .6 mg/dL [facility] Magnesium [Mass/Vol] 2.2 mg/dL Normal 1.6-2.6 [facility] Comment on above: Performed By: #### L ABHSTI1, LIPA, HFP, IPB, CA, MGO #### [facility] (DEFAULT) [address] [address] MANUAL DIFFon 01-08-2025 Band form neutrophils/100 WBC (Bld) 0 % [facility] Basophils (Bld) [#/Vol] 0 10*3/uL 0.00 - 0.09 K/uL [facility] Basophils/100 WBC (Bld) 0 % [facility] Differential cell count method Nom (Bld) Manual Differential [facility] Eosinophils (Bld) [#/Vol] 0 10*3/uL [facility] Eosinophils/100 WBC (Bld) 0 % [facility] Lymphocytes (Bld) [#/Vol] 0.35 10*3/uL Low 0.83 - 3.57 K/uL [facility] Lymphocytes/100 WBC (Bld) 3.4 % [facility] Monocytes (Bld) [#/Vol] 0.44 10*3/uL 0.24 - 0.93 K/uL [facility] Monocytes/100 WBC (Bld) 4.3 % [facility] Myelocytes (Bld) [#/Vol] 0.09 10*3/uL High NINF - 0.07 K/uL [facility] Myelocytes.neutrophilic /100 WBC Manual cnt (Bld) 0.9 % [facility] Neutrophils (Bld) [#/Vol] 9.43 10*3/uL High 1.57 - 6.19 K/uL [facility] Normoblasts Polychromatophilic/100 cells Microscopy (Bld) 1+ Abnormal (none) [facility] Ovalocytes LM Ql (Bld) Present Abnormal (none) [facility] Platelets Estimate (Bld) [#/Vol] Automated platelet count confirmed by manual slide review [facility] RBC morphology finding Nom (Bld) RBC INDICES CONFIRMED WITH MANUAL SLIDE REVIEW [facility] Segmented neutrophils/100 WBC (Bld) 91.4 % [facility] MCV (mean corpuscular volume ) determinationOrdered By: Mya Haile on 01-08-2025 MCV (RBC) [Entitic vol] 94.1 fL High 80-94 [facility] Mean corpuscular hemoglobin (MCH) determinationOrdered By: Mya Haile on 01-08-2025 MCH (RBC) [Entitic mass] 29.7 pg 27.0-32.0 [facility] Mucus LM Ql (Urine sed)Order ed By: Mya Haile on 01-08-2025 Mucus Ql (Urine sed) 0 SEEN /hpf [facility] Nitrite Test strip Ql (U)Ord ered By: Mya Haile on 01-08-2025 Nitrite Ql (U) Negative Negative [facility] No Panel Informationon 01-08 Interpretation and review of laboratory results Abnormal [facility] Interpretation and review of laboratory results Abnormal [facility] Interpretation and review of laboratory results Normal [facility] No Panel InformationOrdered By: Mya Haile on 01-08-2025 25 U/L <38 [facility] PHOSPHATE, INORGANICon 01-08 Phosphate [Mass/Vol] 7.4 mg/dL High 2.2 - 4 .6 mg/dL [facility] Phosphorous 7.4 mg/dL High 2.2-4.6 [facility] Comment on above: Performed By: #### L ABHSTI1, LIPA, HFP, IPB, CA, MGO #### [facility] (DEFAULT) [address] [place] [address] PROTIME-INRon 01-08-2025 INR Coag (Bld) [Relative time] 1.1 {INR} 0.9 - 1.1 [facility] Interpretation and review of laboratory results Normal [facility] PT Coag (PPP) [Time] 13.9 s [facility] INR Coag (PPP) [Relative time] 1.1 {INR} Normal 0.9-1.1 [facility] Comment on above: Performed By: #### L ABHSTI1, LIPA, HFP, IPB, CA, MGO #### [facility] (DEFAULT) [address] [place] [address] PT Coag (PPP) [Time] 13.9 s Normal 11.9-14.2 [facility] Comment on above: Performed By: #### L ABHSTI1, LIPA, HFP, IPB, CA, MGO #### [facility] (DEFAULT) [address] [place] [address] Partial Thromboplast Timeon 01-08-2025 aPTT Coag (Bld) [Time] 25.6 s Normal 24.1-36.2 [facility] Comment on above: Performed By: #### L 100.0100, L300.4310, L500.4050, L501.2450, L503.6005, L300.3900 ####[facility] [address] [place], [place], [id number] Platelet countOrdered By: Boby Haile on 01-08-2025 Platelets (Bld) [#/Vol] 149 10*3/uL Low 150-450 [facility] Platelet estimateOrdered By: Mya Haile on 01-08-2025 Platelets LM Ql (Bld) SLT DEC ADEQ [facility] Potassium measurement (mass/ volume)Ordered By: Mya Haile on 01-08-2025 Potassium (Unsp spec) [Mass/Vol] 4.7 mmol/L 3.3-5.1 [facility] Protein Test strip Ql (U)Ord ered By: Mya Haile on 01-08-2025 Protein Ql (U) 500 mg/dl High Negative [facility] Prothrombin Time w/INRon INR Coag (PPP) [Relative time] 1.0 {INR} Normal [facility] Comment on above: Performed By: #### L 100.0100, L300.4310, L500.4050, L501.2450, L503.6005, L300.3900 ####[facility] [address] [place], [place], [id number] PT Coag (PPP) [Time] 13.6 s Normal 11.7-14.9 [facility] Comment on above: Performed By: #### L 100.0100, L300.4310, L500.4050, L501.2450, L503.6005, L300.3900 ####[facility] [address] [place], [address] Prothrombin timeOrdered By: Mya Haile on 01-08-2025 PT Coag (PPP) [Time] 13.6 s 11.7-14.9 [facility] RBC Auto (Bld) [#/Vol]Ordere d By: Mya Haile on 01-08-2025 RBC (Bld) [#/Vol] 3.40 10*6/uL Low 4.6-6.2 [facility] Review by pathologistOrdered By: Mya Haile on 01-08-2025 Pathologist review Luis Fernando (Unsp spec) [Interp] November [facility] Serum creatinine measurement (mass/volume)Ordered By: Mya Haile on 01-08-2025 Creatinine [Mass/Vol] 4.92 mg/dL High 0.70-1.20 [facility] Serum globulin measurementOr dered By: Mya Haile on 01-08-2025 Globulin (S) [Mass/Vol] 2.8 g/dL 2.2-4.2 [facility] Serum glucose measurement (m ass/volume)Ordered By: Mya Haile on 01-08-2025 Glucose [Mass/Vol] 162 mg/dL High 70-[address] [facility] Serum or plasma alanine magana otransferase (ALT) measurementOrdered By: Mya Haile on 01-08-2025 ALT [Catalytic activity/Vol] 29 U/L <47 [facility] Serum or plasma albumin joshua urement (mass/volume)Ordered By: Mya Hernandez on 01-08-2025 Albumin [Mass/Vol] 3.3 g/dL Low 3.4-4.[address] [facility] Serum or plasma albumin/glob ulin mass ratioOrdered By: Mya Haile on 01-08-2025 Albumin/Globulin [Mass ratio] 1.2 {ratio} 0.9-2.4 [facility] Serum or plasma alkaline denise sphatase measurementOrdered By: Mya Haile on 01-08-2025 ALP [Catalytic activity/Vol] 67 U/L 40-129 [facility] Serum or plasma calcium joshua urement (mass/volume)Ordered By: Mya Hernandez on 01-08-2025 Calcium [Mass/Vol] 8.6 mg/dL 7.6-11.[address] [facility] Serum or plasma urea nitroge n measurement (mass/volume)Ordered By: Mya Haile on 01-08-2025 Urea nitrogen [Mass/Vol] 87 mg/dL High 4-19 [facility] Sodium levelOrdered By: Kennedy Haile on 01-08-2025 Sodium [Moles/Vol] 139 mmol/L 133-[address] [facility] Squamous epithelial cells de tection in urine sediment by light microscopyOrdered By: Mya Haile on 01-08-2025 Epithelial cells.squamous LM Ql (Urine sed) 0 SEEN /hpf 0-5 [facility] Stool Occult Blood iFOBon STOB Positive Normal [facility] Comment on above: Performed By: #### M 100.7900 ####[facility] [address], [place], [id number] Stool gastrointestinal hemog lobin detection by immunologic methodOrdered By: Mya Haile on 01-08-2025 Lower GI hemoglobin IA Ql (Stl) Positive Abnormal [facility] Total cell countOrdered By: Mya Haile on 01-08-2025 Cells counted Molgen (Bld/Tiss) [#] 100 MANUAL DIFF [facility] Total proteinOrdered By: Juma Haile on 01-08-2025 Protein [Mass/Vol] 6.1 g/dL 5.9-8.[address] [facility] Troponin T.cardiac [Mass/vol ume] in Serum or Plasma by High sensitivity methodOrdered By: Mya Haile on 01-08-2025 Troponin T.cardiac High sensitivity method [Mass/Vol] 72 ng/L High <22 [facility] Troponin T.cardiac High sensitivity method [Mass/Vol] 80 ng/L High <22 [facility] URIC ACIDon 01-08-2025 Interpretation and review of laboratory results Normal [facility] Urate [Mass/Vol] 5.7 mg/dL 3.5 - 7.0 mg/dL [facility] Urate [Mass/Vol] 5.7 mg/dL Normal 3.5-7.0 [facility] Comment on above: Performed By: #### L DO, URICB, C7ED #### [facility] (DEFAULT) [address] [place] [address] Urinalysis, Completeon 01-08 BACTERIA 1+ /hpf Normal None Seen [facility] Comment on above: Order Comment: COLOR OF URINE MAY AFFECT DIPSTICK RESULTS.CLEAN CATCH Performed By: #### L 400.0001 ####[facility] [address] [facility] [address] WBC 5-10 SEEN Normal 0-5 [facility] Comment on above: Order Comment: COLOR OF URINE MAY AFFECT DIPSTICK RESULTS.CLEAN CATCH Performed By: #### L 400.0001 ####[facility] [address] [place], [address] RBC > 100 SEEN Normal 0-5 [facility] Comment on above: Order Comment: COLOR OF URINE MAY AFFECT DIPSTICK RESULTS.CLEAN CATCH Performed By: #### L 400.0001 ####[facility] [address] [place], [address] EPI,SQUAMOUS 0 SEEN Normal 0-5 [facility] Comment on above: Order Comment: COLOR OF URINE MAY AFFECT DIPSTICK RESULTS.CLEAN CATCH Performed By: #### L 400.0001 ####[facility] [address] [place], [address] Mucus Ql (Urine sed) 0 SEEN Normal [facility] Comment on above: Order Comment: COLOR OF URINE MAY AFFECT DIPSTICK RESULTS.CLEAN CATCH Performed By: #### L 400.0001 ####[facility] [address] [place], [address] Urine clarityOrdered By: Juma Haile on 01-08-2025 Clarity (U) Cloudy Clear [facility] Urine color determinationOrd ered By: Mya Haile on 01-08-2025 Color (U) Red Yellow [facility] Urine glucose detectionOrder ed By: Mya Haile on 01-08-2025 Glucose Ql (U) 100 mg/dl High Normal [facility] Urine leukocyte esterase det ection by dipstickOrdered By: Mya Haile on 01-08-2025 Leukocyte esterase Test strip Ql (U) 25 /ul High Negative [facility] Urine pHOrdered By: Mya Tesfaye on 01-08-2025 pH (U) 7.0 [pH] 5.0 - 8.0 [facility] Urine sediment bacteria coun t by microscopy (number/high power field)Ordered By: Mya Haile on 01-08-2025 Bacteria LM.HPF (Urine sed) [#/Area] 1 /[HPF] None Seen [facility] Urine specific gravity measu rementOrdered By: Mya Haile on 01-08-2025 Specific gravity (U) [Rel density] 1.010 1.002-1.030 [facility] Urine urobilinogen measureme ntOrdered By: Mya Haile on 01-08-2025 Urobilinogen Ql (U) Normal mg/dl Normal [facility] VENOUS BLOOD GASon Base excess Calc (Bld) [Moles/Vol] 0.9 mmol/L -3.0 - 3.0 mmol/L [facility] CO2 (Bld) [Partial pressure] 37 mm[Hg] [facility] HCO3 (Bld) [Moles/Vol] 25 mmol/L 22 - 29 mmol/L [facility] Oxygen (Bld) [Partial pressure] 43 mm[Hg] mm Hg [facility] Comment on above: Venous pO2 is not re commended for the evaluation of oxygen status, clinical correlation is recommended. Oxygen saturation in Blood 69 % Low 70 - 80 % [facility] pH (Bld) 7.44 [pH] High 7.32 - 7.43 [facility] Specimen source Nom (Unsp spec) Venous [facility] Base Excess 0.9 mmol/L Normal -3.0-3.0 [facility] Comment on above: Performed By: #### L ABHSTI1, LIPA, HFP, IPB, CA, MGO #### [facility] (DEFAULT) [address] [place] [address] HCO3 (Bld) [Moles/Vol] 25 mmol/L Normal 22-29 [facility] Comment on above: Performed By: #### L ABHSTI1, LIPA, HFP, IPB, CA, MGO #### [facility] (DEFAULT) [address] [place] [address] Oxygen saturation in Blood 69 % Low 70-80 [facility] Comment on above: Performed By: #### L ABHSTI1, LIPA, HFP, IPB, CA, MGO #### [facility] (DEFAULT) [address] [place] [address] pCO2, Venous 37 mm Hg Normal 36-52 [facility] Comment on above: Performed By: #### L ABHSTI1, LIPA, HFP, IPB, CA, MGO #### [facility] (DEFAULT) [address] [place] [address] pH, Venous 7.44 High 7.32-7.43 [facility] Comment on above: Performed By: #### L ABHSTI1, LIPA, HFP, IPB, CA, MGO #### [facility] (DEFAULT) [address] [place] [address] pO2, Venous 43 mm Hg Normal [facility] Comment on above: Result Comment: Veno us pO2 is not recommended for the evaluation of oxygen status, clinical correlation is recommended. Performed By: #### L ABHSTI1, LIPA, HFP, IPB, CA, MGO #### [facility] (DEFAULT) [address] [place] [address] Specimen type Nom (Spec) Venous Normal [facility] Comment on above: Performed By: #### L ABHSTI1, LIPA, HFP, IPB, CA, MGO #### [facility] (DEFAULT) [address] [place] [address] White blood cell (WBC) count Ordered By: Mya Haile on 01-08-2025 WBC (Bld) [#/Vol] 12.6 10*3/uL High 4.4-11.0 [facility] White blood cell countOrdere d By: Mya Haile on 01-08-2025 White blood cell count 5-10 SEEN /hpf 0-5 [facility] GENERAL PROCEDUREon 12-30-19 25 Casey Herman MD, PhD - 12/29/2024 8:20 AM EDT [facility] (SRS) Note: 12/29/2024 RADIATION ONCOLOGIST: Andrea Farris MD, PhD NEUROSURGEON: Jeremy Vazquez MD Primary disease: Renal Histopathology: Renal cell carcinoma PROCEDURE PERFORMED: SRS MACHINE: Araca TrueBeam STX CLINICAL TARGETS: 1. Lesion begins [...] dose to the normal tissue was chosen. custodial laborer checks were performed on the plan and [...] the taper instructions. Casey Herman MD, PhD [facility] Radiology Study observation (narrative) [facility] GENERAL PROCEDUREon 12-29-19 25 Paulina Shepherd, PhD - 12/28/2024 8:20 AM EDT [facility] (SRS) Note: 12/28/2024 RADIATION ONCOLOGIST: Andrea Farris MD, PhD NEUROSURGEON: Jeremy Vazquez MD Primary disease: Renal Histopathology: Renal cell carcinoma PROCEDURE PERFORMED: SRS MACHINE: LawnStarterBeam STX CLINICAL TARGETS: 1. Lesion begins at [...] dose to the normal tissue was chosen. custodial laborer checks were performed on the plan and [...] Farris MD, PhD Department of Radiation Oncology [facility] Radiology Study observation (narrative) [facility] Radiology Study observation (narrative) [facility] RAD ONC ARIA FRACTION SUMMAR Yon 12-28-2024 Course [facility] First Treatment Date 12/25/2024 8:03 AM [facility] Course ID C1 Bone Mets [facility] Course Last Treatment Date 12/28/2024 8:40 AM [facility] Energy 10X / 6X [facility] Fraction Number 4 [facility] Plan Dose Delivered to Date 2400 cGy [facility] Plan Fractions Treated to Date 4 [facility] Plan ID T2 [facility] Plan Prescribed Dose Per Fraction 600 cGy [facility] Plan Primary Reference Point 1.A T2 [facility] Plan Total Fractions Prescribed 5 [facility] Plan Total Prescribed Dose 3000 cGy [facility] Reference Point ID 1.A T2 [facility] Treatment Dates 5 [facility] Radiology Study observation (narrative) [facility] GENERAL PROCEDUREon 12-28-19 25 Paulina Shepherd, PhD 12/28/2024 8:48 AM [facility] (SRS) Note: 12/27/2024 RADIATION ONCOLOGIST: Andrea Farris MD, PhD NEUROSURGEON: Jeremy Vazquez MD Primary disease: Renal Histopathology: Renal cell carcinoma PROCEDURE PERFORMED: SRS MACHINE: Araca TrueBeam STX CLINICAL TARGETS: 1. Lesion begins [...] dose to the normal tissue was chosen. custodial laborer checks were performed on the plan and [...] Farris MD, PhD Department of Radiation Oncology [facility] RAD ONC ARIA FRACTION SUMMAR Yon 12-27-2024 Course Elapsed Days 2 [facility] Course First Treatment Date 12/25/2024 8:03 AM [facility] Course ID C1 Bone Mets [facility] Course Last Treatment Date 12/27/2024 9:22 AM [facility] Energy 10X / 6X [facility] Fraction Number 3 [facility] Plan Dose Delivered to Date 1800 cGy [facility] Plan Fractions Treated to Date 3 [facility] Plan ID T2 [facility] Plan Prescribed Dose Per Fraction 600 cGy [facility] Plan Primary Reference Point 1.A T2 [facility] Plan Total Fractions Prescribed 5 [facility] Plan Total Prescribed Dose 3000 cGy [facility] Reference Point ID 1.A T2 [facility] Treatment Dates 5 [facility] Radiology Study observation (narrative) [facility] GENERAL PROCEDUREon 12-27-19 Jessy Martins MD, DPhil - 12/26/2024 9:40 AM EDT [facility] (SRS) Note: 12/26/2024 RADIATION ONCOLOGIST: Jessy Martins MD, DPhil (covering for Andrea Farris MD, PhD) NEUROSURGEON: Jeremy Vazquez MD Primary disease: Renal Histopathology: Renal cell carcinoma PROCEDURE PERFORMED: SRS MACHINE: [id number] STX CLINICAL TARGETS: 1. Lesion begins at [...] dose to the normal tissue was chosen. custodial laborer checks were performed on the plan and [...] Martins MD, DPhil Department of Radiation Oncology [facility] Radiology Study observation (narrative) [facility] RAD ONC ARIA FRACTION SUMMAR Yon 12-26-2024 Course Elapsed Days 1 [facility] Course First Treatment Date 12/25/2024 8:03 AM [facility] Course ID C1 Bone Mets [facility] Course Last Treatment Date 12/26/2024 9:46 AM [facility] Energy 10X / 6X [facility] Fraction Number 2 [facility] Plan Dose Delivered to Date 1200 cGy [facility] Plan Fractions Treated to Date 2 [facility] Plan ID T2 [facility] Plan Prescribed Dose Per Fraction 600 cGy [facility] Plan Primary Reference Point 1.A T2 [facility] Plan Total Fractions Prescribed 5 [facility] Plan Total Prescribed Dose 3000 cGy [facility] Reference Point ID 1.A T2 [facility] Treatment Dates 5 [facility] Radiology [facility]narrative[facility] 12-26-19 25 Paulina Shepherd, PhD - 12/25/2024 7:40 AM EDT [facility] (SRS) Note: 12/25/2024 RADIATION ONCOLOGIST: Andrea Farris MD, PhD NEUROSURGEON: Jeremy Vazquez MD Primary disease: Renal Histopathology: Renal cell carcinoma PROCEDURE PERFORMED: SRS MACHINE: Araca TrueBeam STX CLINICAL TARGETS: 1. Lesion begins [...] dose to the normal tissue was chosen. custodial laborer checks were performed on the plan and [...] Farris MD, PhD Department of Radiation Oncology [facility] Radiology Study observation (narrative) [facility] RAD ONC ARIA FRACTION SUMMAR Yon 12-25-2024 Course [facility] First Treatment Date 12/25/2024 8:03 AM [facility] Course ID C1 Bone Mets [facility] Course Last Treatment Date 12/25/2024 8:04 AM [facility] Energy 10X / 6X [facility] Fraction Number 1 [facility] Plan Dose Delivered to Date 600 cGy [facility] Plan Fractions Treated to Date 1 [facility] Plan ID T2 [facility] Plan Prescribed Dose Per Fraction 600 cGy [facility] Plan Primary Reference Point 1.A T2 [facility] Plan Total Fractions Prescribed 5 [facility] Plan Total Prescribed Dose 3000 cGy [facility] Reference Point ID 1.A T2 [facility] Treatment Dates 5 [facility] Radiology Study observation (narrative) [facility] CT Cervical and thoracic and lumbar [...] recent outside dedicated chest and abdomen CTs. [facility] CT Cervical and thoracic and lumbar spine WO contrastOrdered By: Bentley Wagoner on 11-24-2024 [facility] Work Phone: CT SPINE CERVICAL THORACIC [...] outside dedicated chest and abdomen CTs. Normal [facility] MR Thoracic spine WO and W aaron [...] ktrans within the T2 vertebral body, indeterminate. MEMBERSHIP COUNSELOR is unremarkable. RADIOLOGY Bentley Wagoner MD - [...] ktrans within the T2 vertebral body, indeterminate. MEMBERSHIP COUNSELOR is unremarkable. IMPRESSION IMPRESSION: 1. Findings concerning [...] additional scattered foci of osseous metastatic disease. [facility] MRI SPINE PERFUSION THORACIC WITH [...] ktrans within the T2 vertebral body, indeterminate. MEMBERSHIP COUNSELOR is unremarkable. IMPRESSION: 1. Findings concerning for [...] scattered foci of osseous metastatic disease. Normal [facility] CT Cervical and thoracic and lumbar spine WO contraston 11-23-2024 Radiology Study observation (narrative) [facility] MR Thoracic spine WO and W c ontrast Darshana 11-23-2024 Radiology Study observation (narrative) [facility] ALP [Catalytic activity/Vol] Ordered By: Jeffrey Kuhn on 11-20-2024 Serum or plasma alkaline phosphatase measurement 83 U/L 40-129 [facility] ALT [Catalytic activity/Vol] Ordered By: Jeffrey Kuhn on 11-20-2024 Serum or plasma alanine aminotransferase (ALT) measurement 15 U/L <47 [facility] Absolute lymphocyte countOrd ered By: Alfreda Hogan on 11-20-2024 Lymphocytes Auto (Unsp spec) [#/Vol] 0.83 10*3/uL 0.83-4.51 [facility] Absolute lymphocyte countOrd ered By: Jeffrey Kuhn on 11-20-2024 Lymphocytes Auto (Unsp spec) [#/Vol] 0.73 10*3/uL Low 0.83-4.51 [facility] Absolute neutrophil countOrd ered By: Alfreda Hogan on 11-20-2024 Absolute neutrophil count 7.9 X10^3/uL High 2.0-7.7 [facility] Absolute neutrophil countOrd ered By: Jeffrey Kuhn on 11-20-2024 Absolute neutrophil count 6.6 X10^3/uL 2.0-7.7 [facility] Albumin [Mass/Vol]Ordered By : Jeffrey Kuhn on 11-20-2024 Serum or plasma albumin measurement (mass/volume) 3.0 g/dL Low 3.4-4.8 [facility] Albumin/Globulin [Mass ratio ]Ordered By: Jeffrey Kuhn on 11-20-2024 Serum or plasma albumin/globulin mass ratio 0.8 RATIO Low 0.9-2.4 [facility] Anion gap [Moles/Vol]Ordered By: Alfreda Hogan on 11-20-2024 Anion gap in Serum or Plasma 17 High 5-15 [facility] Anion gap [Moles/Vol]Ordered By: Jeffrey Kuhn on 11-20-2024 Anion gap in Serum or Plasma 16 High - [facility] Anion gap in Serum or Plasma Ordered By: Alfreda Hogan on 11-20-2024 Anion gap [Moles/Vol] 17 mmol/L High -15 [facility] Anion gap in Serum or Plasma Ordered By: Jeffrey Kuhn on 11-20-2024 Anion gap [Moles/Vol] 16 mmol/L High - [facility] Automated lymphocyte count a s percentage of total leukocytesOrdered By: Alfreda Hogan on 11-20-2024 Lymphocytes/100 WBC Auto (Unsp spec) 8.3 % Low [facility] Automated lymphocyte count a s percentage of total leukocytesOrdered By: Jeffrey Kuhn on 11-20-2024 Lymphocytes/100 WBC Auto (Unsp spec) 8.8 % Low [facility] BUN/creatinine ratioOrdered By: Alfreda Hogan on 11-20-2024 Urea nitrogen/Creatinine [Mass ratio] 12.3 mg/mg 05-14 [facility] BUN/creatinine ratio 12.3 RATIO 05-14 [facility] BUN/creatinine ratioOrdered By: Jeffrey Kuhn on 11-20-2024 Urea nitrogen/Creatinine [Mass ratio] 12.1 mg/mg 05-14 [facility] BUN/creatinine ratio 12.[address] [place] [address] Basic Metabolic Profile (BMP )on 11-20-2024 BUN/CRE 12.3 RATIO Normal 05-14 [facility] Comment on above: Performed By: #### L 100.0100, L500.2500 ####[facility] [address] [place], [address] Calcium [Mass/Vol] 9.6 mg/dL Normal 7.6-11.[address] [facility] Comment on above: Performed By: #### L 100.0100, L500.2500 ####[facility] [address] [place], [address] Chloride [Moles/Vol] 95 mmol/L Low 98-108 [facility] Comment on above: Performed By: #### L 100.0100, L500.2500 ####[facility] [address] [place], [address] CO2 [Moles/Vol] 22.9 mmol/L Normal 21.0-32.0 [facility] Comment on above: Performed By: #### L 100.0100, L500.2500 ####[facility] [address] [place], [address] Creatinine [Mass/Vol] 5.41 mg/dL High 0.70-1.20 [facility] Comment on above: Performed By: #### L 100.0100, L500.2500 ####[facility] [address] [place], [address] ECRCL 15.97 ml/min Low 50-250 [facility] Comment on above: Performed By: #### L 100.0100, L500.2500 ####[facility] [address] [place], [address] GAP 17 High 5-15 [facility] Comment on above: Performed By: #### L 100.0100, L500.2500 ####[facility] [address] [place], [address] GFR/1.73 sq M.predicted among non-blacks MDRD (S/P/Bld) [Vol rate/Area] 11 mL/min/{1.73_m2} Low >60 [facility] Comment on above: Result Comment: mL/m in/1.73m2 CKD-EPI Creatinine Equation (2020) Performed By: #### L 100.0100, L500.2500 ####[facility] [address] [place], [address] Glucose [Mass/Vol] 74 mg/dL Normal 70-[address] [facility] Comment on above: Performed By: #### L 100.0100, L500.2500 ####[facility] [address] [place], [address] Potassium [Moles/Vol] 4.8 mmol/L Normal 3.3-5.1 [facility] Comment on above: Performed By: #### L 100.0100, L500.2500 ####[facility] [address] [place], [address] Sodium [Moles/Vol] 135 mmol/L Normal 133-[address] [facility] Comment on above: Performed By: #### L 100.0100, L500.2500 ####[facility] [address] [place], [address] Urea nitrogen [Mass/Vol] 67 mg/dL High 4-19 [facility] Comment on above: Performed By: #### L 100.0100, L500.2500 ####[facility] [address] [place], [address] Basophil percentageOrdered B y: Alfreda Hogan on 11-20-2024 Basophils/100 WBC (Bld) 0.9 % 0-1 [facility] Basophil percentage 0.9 % 0-1 [facility] Basophil percentageOrdered B y: Jeffrey Kuhn on 11-20-2024 Basophils/100 WBC (Bld) 0.7 % 0-1 [facility] Basophil percentage 0.7 % 0-1 [facility] Bilirubin, totalOrdered By: Jeffrey Kuhn on 11-20-2024 Bilirubin [Mass/Vol] 0.62 mg/dL 0.00-1.30 [facility] Bilirubin, total 0.62 mg/dL 0.00-1.30 [facility] CBC W/Diff, Automatedon 10-25 Absolute Lymph 0.83 X10 3/uL Normal 0.83-4.51 [facility] Comment on above: Performed By: #### L 100.0100, L500.2500 ####[facility] [address] [place], [address] Absolute Neut 7.9 X10 3/uL High 2.0-7.7 [facility] Comment on above: Performed By: #### L 100.0100, L500.2500 ####[facility] [address] [place], [address] Basophils/100 WBC (Bld) 0.9 % Normal 0-1 [facility] Comment on above: Performed By: #### L 100.0100, L500.2500 ####[facility] [address] [place], [address] Eosinophils/100 WBC (Bld) 1.0 % Normal 0-5 [facility] Comment on above: Performed By: #### L 100.0100, L500.2500 ####[facility] [address] [place], [address] Erythrocyte distribution width (RBC) [Ratio] 17.4 % High 11.6-14.6 [facility] Comment on above: Performed By: #### L 100.0100, L500.2500 ####[facility] [address] [place], [address] Hematocrit (Bld) [Volume fraction] 37.5 % Low 40-54 [facility] Comment on above: Performed By: #### L 100.0100, L500.2500 ####[facility] [address] [place], [address] Hemoglobin (Bld) [Mass/Vol] 11.4 g/dL Low 13.0-16.5 [facility] Comment on above: Performed By: #### L 100.0100, L500.2500 ####[facility] [address] [place], [address] IG% 0.500 Normal 0.0-0.9 [facility] Comment on above: Result Comment: IG% - Immature Granulocytes (promyelocytes, myelocytes andmetamyelocytes) > 1% indicates that a LEFT SHIFT is Present. Performed By: #### L 100.0100, L500.2500 ####[facility] [address] [place], [address] Lymphocytes/100 WBC (Bld) 8.3 % Low 19-41 [facility] Comment on above: Performed By: #### L 100.0100, L500.2500 ####[facility] [address] [place], [address] MCH (RBC) [Entitic mass] 27.6 pg Normal 27.0-32.0 [facility] Comment on above: Performed By: #### L 100.0100, L500.2500 ####[facility] [address] [place], [address] MCHC (RBC) [Mass/Vol] 30.4 g/dL Low 32-36 [facility] Comment on above: Performed By: #### L 100.0100, L500.2500 ####[facility] [address] [place], [address] MCV (RBC) [Entitic vol] 90.8 fL Normal 80-94 [facility] Comment on above: Performed By: #### L 100.0100, L500.2500 ####[facility] [address] [place], [address] Monocytes/100 WBC (Bld) 9.5 % Normal 0-10 [facility] Comment on above: Performed By: #### L 100.0100, L500.2500 ####[facility] [address] [place], [address] Neutrophils/100 WBC (Bld) 79.8 % High 47-70 [facility] Comment on above: Performed By: #### L 100.0100, L500.2500 ####[facility] [address] [place], [address] Nucleated RBC (Bld) [#/Vol] 0 10*3/uL Normal 0-5 [facility] Comment on above: Performed By: #### L 100.0100, L500.2500 ####[facility] [address] [place], [address] Platelet mean volume (Bld) [Entitic vol] 9.3 fL Normal 6.2-12.0 [facility] Comment on above: Performed By: #### L 100.0100, L500.2500 ####[facility] [address] [place], [address] Platelets (Bld) [#/Vol] 334 10*3/uL Normal 150-450 [facility] Comment on above: Performed By: #### L 100.0100, L500.2500 ####[facility] [address] [place], [address] RBC (Bld) [#/Vol] 4.13 10*6/uL Low 4.6-6.2 [facility] Comment on above: Performed By: #### L 100.0100, L500.2500 ####[facility] [address] [place], [address] RDW SD 57.1 fl High 35.1-43.9 [facility] Comment on above: Performed By: #### L 100.0100, L500.2500 ####[facility] [address] [place], [address] WBC (Bld) [#/Vol] 10.0 10*3/uL Normal 4.4-11.0 [facility] Comment on above: Performed By: #### L 100.0100, L500.2500 ####[facility] [address] [place], [address] Absolute Lymph 0.73 X10 3/uL Low 0.83-4.51 [facility] Comment on above: Performed By: #### L 500.4050, L100.0100, L504.2610 ####[facility] [address] [place], [address] Absolute Neut 6.6 X10 3/uL Normal 2.0-7.7 [facility] Comment on above: Performed By: #### L 500.4050, L100.0100, L504.2610 ####[facility] [address] [place], [address] Basophils/100 WBC (Bld) 0.7 % Normal 0-1 [facility] Comment on above: Performed By: #### L 500.4050, L100.0100, L504.2610 ####[facility] [address] [place], [address] Eosinophils/100 WBC (Bld) 1.2 % Normal 0-5 [facility] Comment on above: Performed By: #### L 500.4050, L100.0100, L504.2610 ####[facility] [address] [place], [address] Erythrocyte distribution width (RBC) [Ratio] 17.3 % High 11.6-14.6 [facility] Comment on above: Performed By: #### L 500.4050, L100.0100, L504.2610 ####[facility] [address] [place], [address] Hematocrit (Bld) [Volume fraction] 37.0 % Low 40-54 [facility] Comment on above: Performed By: #### L 500.4050, L100.0100, L504.2610 ####[facility] [address] [place], [address] Hemoglobin (Bld) [Mass/Vol] 11.4 g/dL Low 13.0-16.5 [facility] Comment on above: Performed By: #### L 500.4050, L100.0100, L504.2610 ####[facility] [address] [place], [address] IG% 0.400 Normal 0.0-0.9 [facility] Comment on above: Result Comment: IG% - Immature Granulocytes (promyelocytes, myelocytes andmetamyelocytes) > 1% indicates that a LEFT SHIFT is Present. Performed By: #### L 500.4050, L100.0100, L504.2610 ####[facility] [address] [place], [address] Lymphocytes/100 WBC (Bld) 8.8 % Low 19-41 [facility] Comment on above: Performed By: #### L 500.4050, L100.0100, L504.2610 ####[facility] [address] [place], [address] MCH (RBC) [Entitic mass] 27.9 pg Normal 27.0-32.0 [facility] Comment on above: Performed By: #### L 500.4050, L100.0100, L504.2610 ####[facility] [address] [place], [address] MCHC (RBC) [Mass/Vol] 30.8 g/dL Low 32-36 [facility] Comment on above: Performed By: #### L 500.4050, L100.0100, L504.2610 ####[facility] [address] [place], [address] MCV (RBC) [Entitic vol] 90.7 fL Normal 80-94 [facility] Comment on above: Performed By: #### L 500.4050, L100.0100, L504.2610 ####[facility] [address] [place], [address] Monocytes/100 WBC (Bld) 9.1 % Normal 0-10 [facility] Comment on above: Performed By: #### L 500.4050, L100.0100, L504.2610 ####[facility] [address] [place], [address] Neutrophils/100 WBC (Bld) 79.8 % High 47-70 [facility] Comment on above: Performed By: #### L 500.4050, L100.0100, L504.2610 ####[facility] [address] [place], [address] Nucleated RBC (Bld) [#/Vol] 0 10*3/uL Normal 0-5 [facility] Comment on above: Performed By: #### L 500.4050, L100.0100, L504.2610 ####[facility] [address] [place], [address] Platelet mean volume (Bld) [Entitic vol] 9.4 fL Normal 6.2-12.0 [facility] Comment on above: Performed By: #### L 500.4050, L100.0100, L504.2610 ####[facility] [address] [place], [address] Platelets (Bld) [#/Vol] 305 10*3/uL Normal 150-450 [facility] Comment on above: Performed By: #### L 500.4050, L100.0100, L504.2610 ####[facility] [address] [place], [address] RBC (Bld) [#/Vol] 4.08 10*6/uL Low 4.6-6.2 [facility] Comment on above: Performed By: #### L 500.4050, L100.0100, L504.2610 ####[facility] [address] [place], [address] RDW SD 56.8 fl High 35.1-43.9 [facility] Comment on above: Performed By: #### L 500.4050, L100.0100, L504.2610 ####[facility] [address] [place], [address] WBC (Bld) [#/Vol] 8.3 10*3/uL Normal 4.4-11.[address] [facility] Comment on above: Performed By: #### L 500.4050, L100.0100, L504.2610 ####[facility] [address] [place], [address] Calcium [Mass/Vol]Ordered By : Alfreda Hogan on 11-20-2024 Serum or plasma calcium measurement (mass/volume) 9.6 mg/dL 7.6-11.0 [facility] Calcium [Mass/Vol]Ordered By : Jeffrey Kuhn on 11-20-2024 Serum or plasma calcium measurement (mass/volume) 9.6 mg/dL 7.6-11.0 [facility] Carbon dioxide, total [Moles /volume] in Central venous bloodOrdered By: Alfreda Hogan on 11-20-2024 CO2 [Moles/Vol] 22.9 mmol/L 21.0-32.0 [facility] Carbon dioxide, total [Moles/volume] in Central venous blood 22.9 mmol/L 21.0-32.0 [facility] Carbon dioxide, total [Moles /volume] in Central venous bloodOrdered By: Jeffrey Kuhn on 11-20-2024 CO2 [Moles/Vol] 23.5 mmol/L 21.0-32.0 [facility] Carbon dioxide, total [Moles/volume] in Central venous blood 23.5 mmol/L 21.0-32.0 [facility] Chloride assayOrdered By: Jacqueline Hogan on 11-20-2024 Chloride [Moles/Vol] 95 mmol/L Low 98-108 [facility] Chloride assay 95 mmol/L Low 98-108 [facility] Chloride assayOrdered By: Shelby Kuhn on 11-20-2024 Chloride [Moles/Vol] 94 mmol/L Low 98-108 [facility] Chloride assay 94 mmol/L Low 98-108 [facility] Comprehensive Metabolic Prof ilon 11-20-2024 Albumin [Mass/Vol] 3.0 g/dL Low 3.4-4.[address] [facility] Comment on above: Performed By: #### L 500.4050, L100.0100, L504.2610 ####[facility] [address] [place], [address] Albumin/Globulin [Mass ratio] 0.8 {ratio} Low 0.9-2.4 [facility] Comment on above: Performed By: #### L 500.4050, L100.0100, L504.2610 ####[facility] [address] [place], [address] ALK PHOS 83 U/L Normal 40-129 [facility] Comment on above: Performed By: #### L 500.4050, L100.0100, L504.2610 ####[facility] [address] [place], [address] ALT [Catalytic activity/Vol] 15 U/L Normal <=46 [facility] Comment on above: Performed By: #### L 500.4050, L100.0100, L504.2610 ####[facility] [address] [place], [address] AST [Catalytic activity/Vol] 37 U/L Normal <=37 [facility] Comment on above: Performed By: #### L 500.4050, L100.0100, L504.2610 ####[facility] [address] [place], [address] Bilirubin [Mass/Vol] 0.62 mg/dL Normal 0.00-1.30 [facility] Comment on above: Performed By: #### L 500.4050, L100.0100, L504.2610 ####[facility] [address] [place], [address] BUN/CRE 12.1 RATIO Normal 10-20 [facility] Comment on above: Performed By: #### L 500.4050, L100.0100, L504.2610 ####[facility] [address] [place], [address] Calcium [Mass/Vol] 9.6 mg/dL Normal 7.6-11.[address] [facility] Comment on above: Performed By: #### L 500.4050, L100.0100, L504.2610 ####[facility] [address] [place], [address] Chloride [Moles/Vol] 94 mmol/L Low 98-108 [facility] Comment on above: Performed By: #### L 500.4050, L100.0100, L504.2610 ####[facility] [address] [place], [address] CO2 [Moles/Vol] 23.5 mmol/L Normal 21.0-32.0 [facility] Comment on above: Performed By: #### L 500.4050, L100.0100, L504.2610 ####[facility] [address] [place], [address] Creatinine [Mass/Vol] 5.19 mg/dL High 0.70-1.20 [facility] Comment on above: Performed By: #### L 500.4050, L100.0100, L504.2610 ####[facility] [address] [place], [address] ECRCL 16.79 ml/min Low 50-250 [facility] Comment on above: Performed By: #### L 500.4050, L100.0100, L504.2610 ####[facility] [address] [place], [address] GAP 16 High 5-15 [facility] Comment on above: Performed By: #### L 500.4050, L100.0100, L504.2610 ####[facility] [address] [place], [address] GFR/1.73 sq M.predicted among non-blacks MDRD (S/P/Bld) [Vol rate/Area] 11 mL/min/{1.73_m2} Low >60 [facility] Comment on above: Result Comment: mL/m in/1.73m2 CKD-EPI Creatinine Equation (2020) Performed By: #### L 500.4050, L100.0100, L504.2610 ####[facility] [address] [place], [address] Globulin (S) [Mass/Vol] 4.0 g/dL Normal 2.2-4.2 [facility] Comment on above: Performed By: #### L 500.4050, L100.0100, L504.2610 ####[facility] [address] [place], [address] Glucose [Mass/Vol] 159 mg/dL High 70-[address] [facility] Comment on above: Performed By: #### L 500.4050, L100.0100, L504.2610 ####[facility] [address] [place], [address] Potassium [Moles/Vol] 4.5 mmol/L Normal 3.3-5.1 [facility] Comment on above: Performed By: #### L 500.4050, L100.0100, L504.2610 ####[facility] [address] [place], [address] Sodium [Moles/Vol] 133 mmol/L Normal 133-[address] [facility] Comment on above: Performed By: #### L 500.4050, L100.0100, L504.2610 ####[facility] [address] [place], [address] T PROT 7.0 g/dL Normal 5.9-8.4 [facility] Comment on above: Performed By: #### L 500.4050, L100.0100, L504.2610 ####[facility] [address] [place], [address] Urea nitrogen [Mass/Vol] 63 mg/dL High 4-19 [facility] Comment on above: Performed By: #### L 500.4050, L100.0100, L504.2610 ####[facility] [address] [place], [address] Creatinine [Mass/Vol]Ordered By: Alfreda Hogan on 11-20-2024 Serum creatinine measurement (mass/volume) 5.41 mg/dL High 0.70-1.20 [facility] Creatinine [Mass/Vol]Ordered By: Jeffrey Kuhn on 11-20-2024 Serum creatinine measurement (mass/volume) 5.19 mg/dL High 0.70-1.20 [facility] Emergency Department Summary on 11-20-2024 Emergency Department Summary Normal [facility] Eosinophil percentageOrdered By: Alfreda Hogan on 11-20-2024 Eosinophils/100 WBC (Bld) 1.0 % 0-5 [facility] Eosinophil percentage 1.0 % 0-5 [facility] Eosinophil percentageOrdered By: Jeffrey Kuhn on 11-20-2024 Eosinophils/100 WBC (Bld) 1.2 % 0-5 [facility] Eosinophil percentage 1.2 % 0-5 [facility] Erythrocyte distribution wid th (RBC) [Ratio]Ordered By: Alfreda Hogan on 11-20-2024 Erythrocyte distribution width ratio 17.4 % High 11.6-14.6 [facility] Erythrocyte distribution width standard deviation 57.1 fl High 35.1-43.9 [facility] Erythrocyte distribution wid th (RBC) [Ratio]Ordered By: Jeffrey Kuhn on 11-20-2024 Erythrocyte distribution width ratio 17.3 % High 11.6-14.6 [facility] Erythrocyte distribution width standard deviation 56.8 fl High 35.1-43.9 [facility] Erythrocyte distribution wid th ratioOrdered By: Alfreda Hogan on 11-20-2024 Erythrocyte distribution width (RBC) [Ratio] 17.4 % High 11.6-14.6 [facility] Erythrocyte distribution wid th ratioOrdered By: Jeffrey Kuhn on 11-20-2024 Erythrocyte distribution width (RBC) [Ratio] 17.3 % High 11.6-14.6 [facility] Erythrocyte distribution wid th standard deviationOrdered By: Alfreda Hogan on 11-20-2024 Erythrocyte distribution width (RBC) [Ratio] 57.1 fl High 35.1-43.9 [facility] Erythrocyte distribution wid th standard deviationOrdered By: Jeffrey Kuhn on 11-20-2024 Erythrocyte distribution width (RBC) [Ratio] 56.8 fl High 35.1-43.9 [facility] Estimation of creatinine donavan aranceOrdered By: Alfreda Hogan on 11-20-2024 Estimation of creatinine clearance 15.97 ml/min Low 50-250 [facility] Estimation of creatinine donavan aranceOrdered By: Jeffrey Kuhn on 11-20-2024 Estimation of creatinine clearance 16.79 ml/min Low 50-250 [facility] GFR/1.73 sq M.predicted alivia g non-blacks MDRD (S/P/Bld) [Vol rate/Area]Ordered By: Alfreda Hogan on 11-20-2024 Glomerular filtration rate (GFR) estimation/1.73 sq m using serum, plasma, or whole b 11 Low >60 [facility] GFR/1.73 sq M.predicted alivia g non-blacks MDRD (S/P/Bld) [Vol rate/Area]Ordered By: Jeffrey Kuhn on 11-20-2024 Glomerular filtration rate (GFR) estimation/1.73 sq m using serum, plasma, or whole b 11 Low >60 [facility] Glomerular filtration rate ( GFR) estimation/1.73 sq m using serum, plasma, or whole bOrdered By: Alfreda Hogan on 11-20-2024 GFR/1.73 sq M.predicted among non-blacks MDRD (S/P/Bld) [Vol rate/Area] 11 mL/min/{1.73_m2} Low >60 [facility] Glomerular filtration rate ( GFR) estimation/1.73 sq m using serum, plasma, or whole bOrdered By: Jeffrey Kuhn on 11-20-2024 GFR/1.73 sq M.predicted among non-blacks MDRD (S/P/Bld) [Vol rate/Area] 11 mL/min/{1.73_m2} Low >60 [facility] Glucose [Mass/Vol]Ordered By : Alfreda Hogan on 11-20-2024 Serum glucose measurement (mass/volume) 74 mg/dL 70-99 [facility] Glucose [Mass/Vol]Ordered By : Jeffrey Kuhn on 11-20-2024 Serum glucose measurement (mass/volume) 159 mg/dL High 70-99 [facility] Hematocrit Auto (Bld) [Volum e fraction]Ordered By: Alfreda Hgoan on 11-20-2024 Hematocrit (Bld) [Volume fraction] 37.5 % Low 40-54 [facility] Automated blood hematocrit (percentage) 37.5 % Low 40-54 [facility] Hematocrit Auto (Bld) [Volum e fraction]Ordered By: Jeffrey Kuhn on 11-20-2024 Hematocrit (Bld) [Volume fraction] 37.0 % Low 40-54 [facility] Automated blood hematocrit (percentage) 37.0 % Low 40-54 [facility] Hemoglobin measurementOrdere d By: Alfreda Hogan on 11-20-2024 Hemoglobin (Bld) [Mass/Vol] 11.4 g/dL Low 13.0-16.5 [facility] Hemoglobin measurement 11.4 g/dL Low 13.0-16.5 [facility] Hemoglobin measurementOrdere d By: Jeffrey Kuhn on 11-20-2024 Hemoglobin (Bld) [Mass/Vol] 11.4 g/dL Low 13.0-16.5 [facility] Hemoglobin measurement 11.4 g/dL Low 13.0-16.5 [facility] Immature granulocytes/100 WB C Auto (Bld)Ordered By: Alfreda Hogan on 11-20-2024 Immature granulocytes/100 WBC (Bld) 0.500 % 0.0-0.9 [facility] Automated immature granulocyte percentage 0.500 % 0.0-0.9 [facility] Immature granulocytes/100 WB C Auto (Bld)Ordered By: Jeffrey Kuhn on 11-20-2024 Immature granulocytes/100 WBC (Bld) 0.400 % 0.0-0.9 [facility] Automated immature granulocyte percentage 0.400 % 0.0-0.9 [facility] LDHon 11-20-2024 LDH 327 U/L High 87-241 [facility] Comment on above: Order Comment: 1 Performed By: #### L 500.4050, L100.0100, L504.2610 ####[facility] [address] [place], [address] Lactate dehydrogenase (LDH) measurementOrdered By: Jeffrey Kuhn on 11-20-2024 Lactate dehydrogenase (LDH) measurement 327 U/L High 87-241 [facility] Lymphocytes Auto (Unsp spec) [#/Vol]Ordered By: Alfreda Hogan on 11-20-2024 Absolute lymphocyte count 0.83 X10^3/uL 0.83-4.51 [facility] Lymphocytes Auto (Unsp spec) [#/Vol]Ordered By: Jeffrey Kuhn on 11-20-2024 Absolute lymphocyte count 0.73 X10^3/uL Low 0.83-4.51 [facility] Lymphocytes/100 WBC Auto (Un sp spec)Ordered By: Alfreda Hogan on 11-20-2024 Automated lymphocyte count as percentage of total leukocytes 8.3 % Low 19-41 [facility] Lymphocytes/100 WBC Auto (Un sp spec)Ordered By: Jeffrey Kuhn on 11-20-2024 Automated lymphocyte count as percentage of total leukocytes 8.8 % Low 19-41 [facility] MCV (RBC) [Entitic vol]Order ed By: Alfreda Hogan on 11-20-2024 MCV (mean corpuscular volume) determination 90.8 fL 80-94 [facility] MCV (RBC) [Entitic vol]Order ed By: Jeffrey Kuhn on 11-20-2024 MCV (mean corpuscular volume) determination 90.7 fL 80-94 [facility] MCV (mean corpuscular volume ) determinationOrdered By: Alfreda Hogan on 11-20-2024 MCV (RBC) [Entitic vol] 90.8 fL 80-94 [facility] MCV (mean corpuscular volume ) determinationOrdered By: Jeffrey Kuhn on 11-20-2024 MCV (RBC) [Entitic vol] 90.7 fL 80-94 [facility] Magnetic resonance imaging r eportOrdered By: Fred Foley on 11-20-2024 Study report [facility] Study report [facility] Mean corpuscular hemoglobin (MCH) determinationOrdered By: Alfreda Hogan on 11-20-2024 MCH (RBC) [Entitic mass] 27.6 pg 27.0-32.0 [facility] Mean corpuscular hemoglobin (MCH) determination 27.6 pg 27.0-32.0 [facility] Mean corpuscular hemoglobin (MCH) determinationOrdered By: Jeffrey Kuhn on 11-20-2024 MCH (RBC) [Entitic mass] 27.9 pg 27.0-32.0 [facility] Mean corpuscular hemoglobin (MCH) determination 27.9 pg 27.0-32.0 [facility] Mean corpuscular hemoglobin concentration (MCHC) determinationOrdered By: Alfreda Hogan on 11-20-2024 Mean corpuscular hemoglobin concentration (MCHC) determination 30.4 g/dL Low 32-36 [facility] Mean corpuscular hemoglobin concentration (MCHC) determinationOrdered By: Jeffrey Kuhn on 11-20-2024 Mean corpuscular hemoglobin concentration (MCHC) determination 30.8 g/dL [facility]-36 [facility] Mean platelet volume determi nationOrdered By: Alfreda Hogan on 11-20-2024 Mean platelet volume determination 9.3 fl 6.2-12.0 [facility] Mean platelet volume determi nationOrdered By: Jeffrey Kuhn on 11-20-2024 Mean platelet volume determination 9.4 fl 6.2-12.0 [facility] Monocyte percentageOrdered B y: Alfreda Hogan on 11-20-2024 Monocytes/100 WBC (Bld) 9.5 % 0-10 [facility] Monocyte percentage 9.5 % 0-10 [facility] Monocyte percentageOrdered B y: Jeffrey Kuhn on 11-20-2024 Monocytes/100 WBC (Bld) 9.1 % 0-10 [facility] Monocyte percentage 9.1 % 0-10 [facility] Neutrophil percentageOrdered By: Alfreda Hogan on 11-20-2024 Neutrophils/100 WBC (Bld) 79.8 % High 47-70 [facility] Neutrophil percentage 79.8 % High 47-70 [facility] Neutrophil percentageOrdered By: Jeffrey Kuhn on 11-20-2024 Neutrophils/100 WBC (Bld) 79.8 % High 47-70 [facility] Neutrophil percentage 79.8 % High 47-70 [facility] No Panel InformationOrdered By: Jeffrey Kuhn on 11-20-2024 37 U/L <38 [facility] Nucleated red blood cell per centageOrdered By: Alfreda Hogan on 11-20-2024 Nucleated red blood cell percentage 0 % 0-5 [facility] Nucleated red blood cell per centageOrdered By: Jeffrey Kuhn on 11-20-2024 Nucleated red blood cell percentage 0 % 0-5 [facility] Oncology Visit Reporton 10-25 Oncology Visit Report Normal [facility] Platelet countOrdered By: Jacqueline Hogan on 11-20-2024 Platelets (Bld) [#/Vol] 334 10*3/uL 150-450 [facility] Platelet count 334 K/mm3 150-450 [facility] Platelet countOrdered By: Shelby Kuhn on 11-20-2024 Platelets (Bld) [#/Vol] 305 10*3/uL 150-450 [facility] Platelet count 305 K/mm3 150-450 [facility] Potassium (Unsp spec) [Mass/ Vol]Ordered By: Alfreda Hogan on 11-20-2024 Potassium measurement (mass/volume) 4.8 mmol/L 3.3-5.1 [facility] Potassium (Unsp spec) [Mass/ Vol]Ordered By: Jeffrey Kuhn on 11-20-2024 Potassium measurement (mass/volume) 4.5 mmol/L 3.3-5.1 [facility] Potassium measurement (mass/ volume)Ordered By: Alfreda Hogan on 11-20-2024 Potassium (Unsp spec) [Mass/Vol] 4.8 mmol/L 3.3-5.1 [facility] Potassium measurement (mass/ volume)Ordered By: Jeffrey Kuhn on 11-20-2024 Potassium (Unsp spec) [Mass/Vol] 4.5 mmol/L 3.3-5.1 [facility] RBC Auto (Bld) [#/Vol]Ordere d By: Alfreda Hogan on 11-20-2024 RBC (Bld) [#/Vol] 4.13 10*6/uL Low 4.6-6.2 [facility] Automated blood erythrocyte count 4.13 M/mm3 Low 4.6-6.2 [facility] RBC Auto (Bld) [#/Vol]Ordere d By: Jeffrey Kuhn on 11-20-2024 RBC (Bld) [#/Vol] 4.08 10*6/uL Low 4.6-6.2 [facility] Automated blood erythrocyte count 4.08 M/mm3 Low 4.6-6.2 [facility] Serum creatinine measurement (mass/volume)Ordered By: Alfreda Hogan on 11-20-2024 Creatinine [Mass/Vol] 5.41 mg/dL High 0.70-1.20 [facility] Serum creatinine measurement (mass/volume)Ordered By: Jeffrey Kuhn on 11-20-2024 Creatinine [Mass/Vol] 5.19 mg/dL High 0.70-1.20 [facility] Serum globulin measurementOr dered By: Jeffrey Kuhn on 11-20-2024 Globulin (S) [Mass/Vol] 4.0 g/dL 2.2-4.2 [facility] Serum globulin measurement 4.0 g/dL 2.2-4.2 [facility] Serum glucose measurement (m ass/volume)Ordered By: Alfreda Hogan on 11-20-2024 Glucose [Mass/Vol] 74 mg/dL 70-[address] [facility] Serum glucose measurement (m ass/volume)Ordered By: Jeffrey Kuhn on 11-20-2024 Glucose [Mass/Vol] 159 mg/dL High 70-[address] [facility] Serum or plasma alanine magana otransferase (ALT) measurementOrdered By: Jeffrey Kuhn on 11-20-2024 ALT [Catalytic activity/Vol] 15 U/L <47 [facility] Serum or plasma albumin joshua urement (mass/volume)Ordered By: Jeffrey Kuhn on 11-20-2024 Albumin [Mass/Vol] 3.0 g/dL Low 3.4-4.[address] [facility] Serum or plasma albumin/glob ulin mass ratioOrdered By: Jeffrey Kuhn on 11-20-2024 Albumin/Globulin [Mass ratio] 0.8 {ratio} Low 0.9-2.4 [facility] Serum or plasma alkaline denise sphatase measurementOrdered By: Jeffrey Kuhn on 11-20-2024 ALP [Catalytic activity/Vol] 83 U/L 40-129 [facility] Serum or plasma calcium joshua urement (mass/volume)Ordered By: Alfreda Hogan on 11-20-2024 Calcium [Mass/Vol] 9.6 mg/dL 7.6-11.[address] [facility] Serum or plasma calcium joshua urement (mass/volume)Ordered By: Jeffrey Kuhn on 11-20-2024 Calcium [Mass/Vol] 9.6 mg/dL 7.6-11.[address] [facility] Serum or plasma urea nitroge n measurement (mass/volume)Ordered By: Alfreda Hogan on 11-20-2024 Urea nitrogen [Mass/Vol] 67 mg/dL High 11-11 [facility] Serum or plasma urea nitroge n measurement (mass/volume)Ordered By: Jeffrey Kuhn on 11-20-2024 Urea nitrogen [Mass/Vol] 63 mg/dL High [facility] Sodium levelOrdered By: Sylvester Hogan on 11-20-2024 Sodium [Moles/Vol] 135 mmol/L 133-[address] [facility] Sodium level 135 mmol/L 133-145 [facility] Sodium levelOrdered By: Dariusz Kuhn on 11-20-2024 Sodium [Moles/Vol] 133 mmol/L 133-[address] [facility] Sodium level 133 mmol/L 133-145 [facility] Spine Cervical W/WO Contrast on 11-20-2024 Spine Cervical W/WO Contrast Normal [facility] Spine Thoracic W/WO Contrast on 11-20-2024 Spine Thoracic W/WO Contrast Normal [facility] Total proteinOrdered By: Raheem Kuhn on 11-20-2024 Protein [Mass/Vol] 7.0 g/dL 5.9-8.[address] [facility] Total protein 7.0 g/dL 5.9-8.4 [facility] Urea nitrogen [Mass/Vol]Orde red By: Alfreda Hogan on 11-20-2024 Serum or plasma urea nitrogen measurement (mass/volume) 67 mg/dL High 11-11 [facility] Urea nitrogen [Mass/Vol]Orde red By: Jeffrey Kuhn on 11-20-2024 Serum or plasma urea nitrogen measurement (mass/volume) 63 mg/dL High 11-11 [facility] White blood cell (WBC) count Ordered By: Alfreda Hogan on 11-20-2024 WBC (Bld) [#/Vol] 10.0 10*3/uL 4.4-11.0 [facility] White blood cell (WBC) count 10.0 K/mm3 4.4-11.0 [facility] White blood cell (WBC) count Ordered By: Jeffrey Kuhn on 11-20-2024 WBC (Bld) [#/Vol] 8.3 10*3/uL 4.4-11.[address] [facility] White blood cell (WBC) count 8.3 K/mm3 4.4-11.0 [facility] Bone Scan Whole Bodyon 11-14 Bone Scan Whole Body Normal [facility] 12 Lead EKGon 11-09-2024 12 Lead EKG Normal [facility] 12 Lead EKG Normal [facility] ALP [Catalytic activity/Vol] Ordered By: Ana Flores on 11-09-2024 Serum or plasma alkaline phosphatase measurement 81 U/L 40-129 [facility] ALT [Catalytic activity/Vol] Ordered By: Ana Flores on 11-09-2024 Serum or plasma alanine aminotransferase (ALT) measurement 13 U/L <47 [facility] Absolute lymphocyte countOrd ered By: Tayo Cannon on 11-09-2024 Lymphocytes Auto (Unsp spec) [#/Vol] 0.76 10*3/uL Low 0.83-4.51 [facility] Absolute lymphocyte countOrd ered By: Ana Flores on 11-09-2024 Lymphocytes Auto (Unsp spec) [#/Vol] 1.15 10*3/uL 0.83-4.51 [facility] Absolute neutrophil countOrd ered By: Tayo Cannon on 11-09-2024 Neutrophils (Bld) [#/Vol] 4.8 10*3/uL 2.0-7.7 [facility] Absolute neutrophil count 4.8 X10^3/uL 2.0-7.7 [facility] Absolute neutrophil countOrd ered By: Ana Flores on 11-09-2024 Neutrophils (Bld) [#/Vol] 5.7 10*3/uL 2.0-7.7 [facility] Absolute neutrophil count 5.7 X10^3/uL 2.0-7.7 [facility] Albumin [Mass/Vol]Ordered By : Ana Flores on 11-09-2024 Serum or plasma albumin measurement (mass/volume) 3.1 g/dL Low 3.4-4.8 [facility] Albumin/Globulin [Mass ratio ]Ordered By: Ana Flores on 11-09-2024 Serum or plasma albumin/globulin mass ratio 0.9 RATIO 0.9-2.4 [facility] Anion gap [Moles/Vol]Ordered By: Tayo Cannon on 11-09-2024 Anion gap in Serum or Plasma 16 High -15 [facility] Anion gap [Moles/Vol]Ordered By: Ana Flores on 11-09-2024 Anion gap in Serum or Plasma 14 - [facility] Anion gap in Serum or Plasma Ordered By: Tayo Cannon on 11-09-2024 Anion gap [Moles/Vol] 16 mmol/L High - [facility] Anion gap in Serum or Plasma Ordered By: Ana Flores on 11-09-2024 Anion gap [Moles/Vol] 14 mmol/L -15 [facility] Automated lymphocyte count a s percentage of total leukocytesOrdered By: Tayo Cannon on 11-09-2024 Lymphocytes/100 WBC Auto (Unsp spec) 11.9 % Low [facility] Automated lymphocyte count a s percentage of total leukocytesOrdered By: Ana Flores on 11-09-2024 Lymphocytes/100 WBC Auto (Unsp spec) 14.8 % Low [facility] BUN/creatinine ratioOrdered By: Tayo Cannon on 11-09-2024 Urea nitrogen/Creatinine [Mass ratio] 10.5 mg/mg 05-14 [facility] BUN/creatinine ratio 10.5 RATIO 05-14 [facility] BUN/creatinine ratioOrdered By: Ana Flores on 11-09-2024 Urea nitrogen/Creatinine [Mass ratio] 10.6 mg/mg 05-14 [facility] BUN/creatinine ratio 10.6 RATIO 05-14 [facility] Basic Metabolic Profile (BMP )on 11-09-2024 BUN/CRE 10.5 RATIO Normal 05-14 [facility] Comment on above: Performed By: #### L 100.0100, L501.4021, L500.2500 ####[facility] [address] [place], [address] Calcium [Mass/Vol] 9.0 mg/dL Normal 7.6-11.[address] [facility] Comment on above: Performed By: #### L 100.0100, L501.4021, L500.2500 ####[facility] [address] [place], [place], [address] Chloride [Moles/Vol] 93 mmol/L Low 98-108 [facility] Comment on above: Performed By: #### L 100.0100, L501.4021, L500.2500 ####[facility] [address] [place], [address] CO2 [Moles/Vol] 21.7 mmol/L Normal 21.0-32.0 [facility] Comment on above: Performed By: #### L 100.0100, L501.4021, L500.2500 ####[facility] [address] [place], [address] Creatinine [Mass/Vol] 3.29 mg/dL High 0.70-1.20 [facility] Comment on above: Performed By: #### L 100.0100, L501.4021, L500.2500 ####[facility] [address] [place], [address] ECRCL 26.49 ml/min Low 50-250 [facility] Comment on above: Performed By: #### L 100.0100, L501.4021, L500.2500 ####[facility] [address] [place], [address] GAP 16 High 5-15 [facility] Comment on above: Performed By: #### L 100.0100, L501.4021, L500.2500 ####[facility] [address] [place], [address] GFR/1.73 sq M.predicted among non-blacks MDRD (S/P/Bld) [Vol rate/Area] 20 mL/min/{1.73_m2} Low >60 [facility] Comment on above: Result Comment: mL/m in/1.73m2 CKD-EPI Creatinine Equation (2020) Performed By: #### L 100.0100, L501.4021, L500.2500 ####[facility] [address] [place], [address] Glucose [Mass/Vol] 125 mg/dL High 70-[address] [facility] Comment on above: Performed By: #### L 100.0100, L501.4021, L500.2500 ####[facility] [address] [place], [address] Potassium [Moles/Vol] 5.0 mmol/L Normal 3.3-5.1 [facility] Comment on above: Result Comment: Hemo lysis present, Results??could be affected.?? Performed By: #### L 100.0100, L501.4021, L500.2500 ####[facility] [address] [place], [address] Sodium [Moles/Vol] 131 mmol/L Low 133-[address] [facility] Comment on above: Performed By: #### L 100.0100, L501.4021, L500.2500 ####[facility] [address] [place], [address] Urea nitrogen [Mass/Vol] 34 mg/dL High 4-19 [facility] Comment on above: Performed By: #### L 100.0100, L501.4021, L500.2500 ####[facility] [address] [place], [address] Basophil percentageOrdered B y: Tayo Cannon on 11-09-2024 Basophils/100 WBC (Bld) 0.9 % 0-1 [facility] Basophil percentage 0.9 % 0-1 [facility] Basophil percentageOrdered B y: Ana Flores on 11-09-2024 Basophils/100 WBC (Bld) 0.9 % 0-1 [facility] Basophil percentage 0.9 % 0-1 [facility] Bilirubin Test strip Ql (U)O rdered By: Tayo Cannon on 11-09-2024 Bilirubin Ql (U) Negative Negative [facility] Bilirubin, totalOrdered By: Ana Flores on 11-09-2024 Bilirubin [Mass/Vol] 0.64 mg/dL 0.00-1.30 [facility] Bilirubin, total 0.64 mg/dL 0.00-1.30 [facility] CBC W/Diff, Automatedon 10-24 PLT EST ADEQUATE Normal ADEQ [facility] Comment on above: Performed By: #### L 100.0100, L501.4021, L500.2500 ####[facility] [address] [place], [address] Absolute Lymph 1.15 X10 3/uL Normal 0.83-4.51 [facility] Comment on above: Performed By: #### L 100.0100 ####[facility] [address] [place], [address] Absolute Neut 5.7 X10 3/uL Normal 2.0-7.7 [facility] Comment on above: Performed By: #### L 100.0100 ####[facility] [address] [place], [address] Basophils/100 WBC (Bld) 0.9 % Normal 0-1 [facility] Comment on above: Performed By: #### L 100.0100 ####[facility] [address] [place], [address] Eosinophils/100 WBC (Bld) 1.2 % Normal 0-5 [facility] Comment on above: Performed By: #### L 100.0100 ####[facility] [address] [place], [address] Erythrocyte distribution width (RBC) [Ratio] 16.1 % High 11.6-14.6 [facility] Comment on above: Performed By: #### L 100.0100 ####[facility] [address] [place], [address] Hematocrit (Bld) [Volume fraction] 33.3 % Low 40-54 [facility] Comment on above: Performed By: #### L 100.0100 ####[facility] [address] [place], [address] Hemoglobin (Bld) [Mass/Vol] 10.5 g/dL Low 13.0-16.5 [facility] Comment on above: Performed By: #### L 100.0100 ####[facility] [address] [place], [address] IG% 0.400 Normal 0.0-0.9 [facility] Comment on above: Result Comment: IG% - Immature Granulocytes (promyelocytes, myelocytes andmetamyelocytes) > 1% indicates that a LEFT SHIFT is Present. Performed By: #### L 100.0100 ####[facility] [address] [place], [address] Lymphocytes/100 WBC (Bld) 14.8 % Low 19-41 [facility] Comment on above: Performed By: #### L 100.0100 ####[facility] [address] [place], [address] MCH (RBC) [Entitic mass] 27.9 pg Normal 27.0-32.0 [facility] Comment on above: Performed By: #### L 100.0100 ####[facility] [address] [place], [address] MCHC (RBC) [Mass/Vol] 31.5 g/dL Low 32-36 [facility] Comment on above: Performed By: #### L 100.0100 ####[facility] [address] [place], [address] MCV (RBC) [Entitic vol] 88.6 fL Normal 80-94 [facility] Comment on above: Performed By: #### L 100.0100 ####[facility] [address] [place], [address] Monocytes/100 WBC (Bld) 10.0 % Normal 0-10 [facility] Comment on above: Performed By: #### L 100.0100 ####[facility] [address] [place], [address] Neutrophils/100 WBC (Bld) 72.7 % High 47-70 [facility] Comment on above: Performed By: #### L 100.0100 ####[facility] [address] [place], [address] Nucleated RBC (Bld) [#/Vol] 0 10*3/uL Normal 0-5 [facility] Comment on above: Performed By: #### L 100.0100 ####[facility] [address] [place], [address] Platelet mean volume (Bld) [Entitic vol] 9.8 fL Normal 6.2-12.0 [facility] Comment on above: Performed By: #### L 100.0100 ####[facility] [address] [place], [address] Platelets (Bld) [#/Vol] 230 10*3/uL Normal 150-450 [facility] Comment on above: Performed By: #### L 100.0100 ####[facility] [address] [place], [address] RBC (Bld) [#/Vol] 3.76 10*6/uL Low 4.6-6.2 [facility] Comment on above: Performed By: #### L 100.0100 ####[facility] [address] [place], [address] RDW SD 52.2 fl High 35.1-43.9 [facility] Comment on above: Performed By: #### L 100.0100 ####[facility] [address] [place], [address] WBC (Bld) [#/Vol] 7.8 10*3/uL Normal 4.4-11.[address] [facility] Comment on above: Performed By: #### L 100.0100 ####[facility] [address] [place], [address] CTA Chest W/WO Contraston CTA Chest W/WO Contrast Normal [facility] Calcium [Mass/Vol]Ordered By : Tayo Cannon on 11-09-2024 Serum or plasma calcium measurement (mass/volume) 9.0 mg/dL 7.6-11.0 [facility] Calcium [Mass/Vol]Ordered By : Ana Flores on 11-09-2024 Serum or plasma calcium measurement (mass/volume) 8.7 mg/dL 7.6-11.0 [facility] Carbon dioxide, total [Moles /volume] in Central venous bloodOrdered By: Tayo Cannon on 11-09-2024 CO2 [Moles/Vol] 21.7 mmol/L 21.0-32.0 [facility] Carbon dioxide, total [Moles/volume] in Central venous blood 21.7 mmol/L 21.0-32.0 [facility] Carbon dioxide, total [Moles /volume] in Central venous bloodOrdered By: Ana Flores on 11-09-2024 CO2 [Moles/Vol] 24.5 mmol/L 21.0-32.0 [facility] Carbon dioxide, total [Moles/volume] in Central venous blood 24.5 mmol/L 21.0-32.0 [facility] Chloride assayOrdered By: Vane Cannon on 11-09-2024 Chloride [Moles/Vol] 93 mmol/L Low 98-108 [facility] Chloride assay 93 mmol/L Low 98-108 [facility] Chloride assayOrdered By: Chad Flores on 11-09-2024 Chloride [Moles/Vol] 93 mmol/L Low 98-108 [facility] Chloride assay 93 mmol/L Low 98-108 [facility] Clarity (U)Ordered By: Tayo Cannon on 11-09-2024 Urine clarity Clear Clear [facility] Color (U)Ordered By: Tayo hernandez on 11-09-2024 Urine color determination Yellow Yellow [facility] Comprehensive Metabolic Prof ilon 11-09-2024 Albumin [Mass/Vol] 3.1 g/dL Low 3.4-4.[address] [facility] Comment on above: Performed By: #### L 300.8000, L500.4050, L501.4021 ####[facility] [address] [place], [address] Albumin/Globulin [Mass ratio] 0.9 {ratio} Normal 0.9-2.4 [facility] Comment on above: Performed By: #### L 300.8000, L500.4050, L501.4021 ####[facility] [address] [place], [address] ALK PHOS 81 U/L Normal 40-129 [facility] Comment on above: Performed By: #### L 300.8000, L500.4050, L501.4021 ####[facility] [address] [place], [address] ALT [Catalytic activity/Vol] 13 U/L Normal <=46 [facility] Comment on above: Performed By: #### L 300.8000, L500.4050, L501.4021 ####[facility] [address] [place], [address] AST [Catalytic activity/Vol] 30 U/L Normal <=37 [facility] Comment on above: Performed By: #### L 300.8000, L500.4050, L501.4021 ####[facility] [address] [place], [address] Bilirubin [Mass/Vol] 0.64 mg/dL Normal 0.00-1.30 [facility] Comment on above: Performed By: #### L 300.8000, L500.4050, L501.4021 ####[facility] [address] [place], [address] BUN/CRE 10.6 RATIO Normal 10-20 [facility] Comment on above: Performed By: #### L 300.8000, L500.4050, L501.4021 ####[facility] [address] [place], [address] Calcium [Mass/Vol] 8.7 mg/dL Normal 7.6-11.[address] [facility] Comment on above: Performed By: #### L 300.8000, L500.4050, L501.4021 ####[facility] [address] [place], [address] Chloride [Moles/Vol] 93 mmol/L Low 98-108 [facility] Comment on above: Performed By: #### L 300.8000, L500.4050, L501.4021 ####[facility] [address] [place], [address] CO2 [Moles/Vol] 24.5 mmol/L Normal 21.0-32.0 [facility] Comment on above: Performed By: #### L 300.8000, L500.4050, L501.4021 ####[facility] [address] [place], [address] Creatinine [Mass/Vol] 2.95 mg/dL High 0.70-1.20 [facility] Comment on above: Performed By: #### L 300.8000, L500.4050, L501.4021 ####[facility] [address] [place], [address] ECRCL 29.70 ml/min Low 50-250 [facility] Comment on above: Performed By: #### L 300.8000, L500.4050, L501.4021 ####[facility] [address] [place], [address] GAP 14 Normal 5-15 [facility] Comment on above: Performed By: #### L 300.8000, L500.4050, L501.4021 ####[facility] [address] [place], [address] GFR/1.73 sq M.predicted among non-blacks MDRD (S/P/Bld) [Vol rate/Area] 22 mL/min/{1.73_m2} Low >60 [facility] Comment on above: Result Comment: mL/m in/1.73m2 CKD-EPI Creatinine Equation (2020) Performed By: #### L 300.8000, L500.4050, L501.4021 ####[facility] [address] [place], [address] Globulin (S) [Mass/Vol] 3.5 g/dL Normal 2.2-4.2 [facility] Comment on above: Performed By: #### L 300.8000, L500.4050, L501.4021 ####[facility] [address] [place], [address] Glucose [Mass/Vol] 125 mg/dL High 70-[address] [facility] Comment on above: Performed By: #### L 300.8000, L500.4050, L501.4021 ####[facility] [address] [place], [address] Potassium [Moles/Vol] 4.5 mmol/L Normal 3.3-5.1 [facility] Comment on above: Performed By: #### L 300.8000, L500.4050, L501.4021 ####[facility] [address] [place], [address] Sodium [Moles/Vol] 131 mmol/L Low 133-[address] [facility] Comment on above: Performed By: #### L 300.8000, L500.4050, L501.4021 ####[facility] [address] [place], [address] T PROT 6.6 g/dL Normal 5.9-8.4 [facility] Comment on above: Performed By: #### L 300.8000, L500.4050, L501.4021 ####[facility] [address] [place], [address] Urea nitrogen [Mass/Vol] 31 mg/dL High 4-19 [facility] Comment on above: Performed By: #### L 300.8000, L500.4050, L501.4021 ####[facility] [address] [place], [address] Creatinine [Mass/Vol]Ordered By: Tayo Cannon on 11-09-2024 Serum creatinine measurement (mass/volume) 3.29 mg/dL High 0.70-1.20 [facility] Creatinine [Mass/Vol]Ordered By: Ana Flores on 11-09-2024 Serum creatinine measurement (mass/volume) 2.95 mg/dL High 0.70-1.20 [facility] D-Dimer Quantitative (DVT/PE )on 11-09-2024 D-DIMER QUANT 2.26 FEU/ug/m Invalid Interpretation Code 0.27-0.49 [facility] Comment on above: Result Comment: D-Di ranjith ELEVATED (>0.49): Additional studies and clinicalassessments are indicated to conclude diagnosis of:Deep Vein Thrombosis (DVT) or Pulmonary Embolism (PE)CRITICAL VALUE CALLED TO [place] [address] [facility] Darvin Randall.RESULTS READ BACK BY SAME. Performed By: #### L 300.8000, L500.4050, L501.4021 ####[facility] [address] [place], [address] D-dimer measurement for deep venous thrombosisOrdered By: Ana Flores on 11-09-2024 D-Dimer Quantitative (PE/DVT) 2.26 FEU/ug/m High 0.27-0.49 [facility] Comment on above: D-Dimer ELEVATED (>0 .49): Additional studies and clinicalassessments are indicated to conclude diagnosis of:Deep Vein Thrombosis (DVT) or Pulmonary Embolism (PE)CRITICAL VALUE CALLED TO [place] [address] Darvin Randall.RESULTS READ BACK BY SAME. D-dimer measurement for deep venous thrombosis 2.26 FEU/ug/m High 0.27-0.49 [facility] Emergency Department Summary on 11-09-2024 Emergency Department Summary Normal [facility] Emergency Department Summary Normal [facility] Eosinophil percentageOrdered By: Tayo Cannon on 11-09-2024 Eosinophils/100 WBC (Bld) 1.3 % 0-5 [facility] Eosinophil percentage 1.3 % 0-5 [facility] Eosinophil percentageOrdered By: Ana Flores on 11-09-2024 Eosinophils/100 WBC (Bld) 1.2 % 0-5 [facility] Eosinophil percentage 1.2 % 0-5 [facility] Epithelial cells.squamous LM Ql (Urine sed)Ordered By: Tayo Cannon on 11-09-2024 Epithelial cells.squamous LM.HPF (Urine sed) [#/Area] 0 /[HPF] 0-5 [facility] Erythrocyte distribution wid th (RBC) [Ratio]Ordered By: Tayo Cannon on 11-09-2024 Erythrocyte distribution width ratio 16.1 % High 11.6-14.6 [facility] Erythrocyte distribution width (RBC) [Entitic vol] 52.4 fL High 35.1-43.9 [facility] Erythrocyte distribution width standard deviation 52.4 fl High 35.1-43.9 [facility] Erythrocyte distribution wid th (RBC) [Ratio]Ordered By: Ana Flores on 11-09-2024 Erythrocyte distribution width ratio 16.1 % High 11.6-14.6 [facility] Erythrocyte distribution width (RBC) [Entitic vol] 52.2 fL High 35.1-43.9 [facility] Erythrocyte distribution width standard deviation 52.2 fl High 35.1-43.9 [facility] Erythrocyte distribution wid th ratioOrdered By: Tayo Cannon on 11-09-2024 Erythrocyte distribution width (RBC) [Ratio] 16.1 % High 11.6-14.6 [facility] Erythrocyte distribution wid th ratioOrdered By: Ana Flores on 11-09-2024 Erythrocyte distribution width (RBC) [Ratio] 16.1 % High 11.6-14.6 [facility] Erythrocyte distribution wid th standard deviationOrdered By: Tayo Cannon on 11-09-2024 Erythrocyte distribution width (RBC) [Ratio] 52.4 fl High 35.1-43.9 [facility] Erythrocyte distribution wid th standard deviationOrdered By: Ana Flores on 11-09-2024 Erythrocyte distribution width (RBC) [Ratio] 52.2 fl High 35.1-43.9 [facility] Estimation of creatinine donavan aranceOrdered By: Tayo Cannon on 11-09-2024 Estimated Creatinine Clearance Calc 26.49 ml/min Low 50-250 [facility] Estimation of creatinine clearance 26.49 ml/min Low 50-250 [facility] Estimation of creatinine donavan aranceOrdered By: Ana Flores on 11-09-2024 Estimated Creatinine Clearance Calc 29.70 ml/min Low 50-250 [facility] Estimation of creatinine clearance 29.70 ml/min Low 50-250 [facility] GFR/1.73 sq M.predicted alivia g non-blacks MDRD (S/P/Bld) [Vol rate/Area]Ordered By: Tayo Cannon on 11-09-2024 Estimated GFR (MDRD) Non-Af Amer 20 Low >60 [facility] Comment on above: mL/min/1.73m2 CKD-EP I Creatinine Equation (2020) Glomerular filtration rate (GFR) estimation/1.73 sq m using serum, plasma, or whole b 20 Low >60 [facility] GFR/1.73 sq M.predicted alivia g non-blacks MDRD (S/P/Bld) [Vol rate/Area]Ordered By: Ana Flores on 11-09-2024 Estimated GFR (MDRD) Non-Af Amer 22 Low >60 [facility] Comment on above: mL/min/1.73m2 CKD-EP I Creatinine Equation (2020) Glomerular filtration rate (GFR) estimation/1.73 sq m using serum, plasma, or whole b 22 Low >60 [facility] Glomerular filtration rate ( GFR) estimation/1.73 sq m using serum, plasma, or whole bOrdered By: Tayo Cannon on 11-09-2024 GFR/1.73 sq M.predicted among non-blacks MDRD (S/P/Bld) [Vol rate/Area] 20 mL/min/{1.73_m2} Low >60 [facility] Glomerular filtration rate ( GFR) estimation/1.73 sq m using serum, plasma, or whole bOrdered By: Ana Flores on 11-09-2024 GFR/1.73 sq M.predicted among non-blacks MDRD (S/P/Bld) [Vol rate/Area] 22 mL/min/{1.73_m2} Low >60 [facility] Glucose Ql (U)Ordered By: Vane Cannon on 11-09-2024 Glucose (U) [Mass/Vol] 50 mg/dL High Normal Wo [facility] Urine glucose detection 50 mg/dl High Normal [facility] Glucose [Mass/Vol]Ordered By : Tayo Cannon on 11-09-2024 Serum glucose measurement (mass/volume) 125 mg/dL High 70-99 [facility] Glucose [Mass/Vol]Ordered By : Ana Flores on 11-09-2024 Serum glucose measurement (mass/volume) 125 mg/dL High 70-99 [facility] Hematocrit Auto (Bld) [Volum e fraction]Ordered By: Tayo Cannon on 11-09-2024 Hematocrit (Bld) [Volume fraction] 35.0 % Low 40-54 [facility] Automated blood hematocrit (percentage) 35.0 % Low 40-54 [facility] Hematocrit Auto (Bld) [Volum e fraction]Ordered By: Ana Flores on 11-09-2024 Hematocrit (Bld) [Volume fraction] 33.3 % Low 40-54 [facility] Automated blood hematocrit (percentage) 33.3 % Low 40-54 [facility] Hemoglobin measurementOrdere d By: Tayo Cannon on 11-09-2024 Hemoglobin (Bld) [Mass/Vol] 11.0 g/dL Low 13.0-16.5 [facility] Hemoglobin measurement 11.0 g/dL Low 13.0-16.5 [facility] Hemoglobin measurementOrdere d By: Ana Flores on 11-09-2024 Hemoglobin (Bld) [Mass/Vol] 10.5 g/dL Low 13.0-16.5 [facility] Hemoglobin measurement 10.5 g/dL Low 13.0-16.5 [facility] Immature granulocytes/100 WB C Auto (Bld)Ordered By: Tayo Cannon on 11-09-2024 Immature granulocytes/100 WBC (Bld) 0.500 % 0.0-0.9 [facility] Comment on above: IG% - Immature Granu locytes (promyelocytes, myelocytes and metamyelocytes) > 1% indicates that a LEFT SHIFT is Present. Automated immature granulocyte percentage 0.500 % 0.0-0.9 [facility] Immature granulocytes/100 WB C Auto (Bld)Ordered By: Ana Flores on 11-09-2024 Immature granulocytes/100 WBC (Bld) 0.400 % 0.0-0.9 [facility] Comment on above: IG% - Immature Granu locytes (promyelocytes, myelocytes and metamyelocytes) > 1% indicates that a LEFT SHIFT is Present. Automated immature granulocyte percentage 0.400 % 0.0-0.9 [facility] Ketones Test strip Ql (U)Ord ered By: Tayo Cannon on 11-09-2024 Ketones Ql (U) Negative Negative [facility] L499.0042on 11-09-2024 Trop T High Sen 47 ng/L High <=22 [facility] Comment on above: Performed By: #### L 499.0042 ####[facility] [address] [place], [address] L499.0043on 11-09-2024 Trop T High Sen Normal <=22 [facility] Comment on above: Result Comment: Canc elled via OM: Order cancelled - Patient discharged Performed By: #### L 499.0043 ####[facility] [address] [place], [address] L501.4021on 11-09-2024 Trop T High Sen 47 ng/L High <=22 [facility] Comment on above: Result Comment: Hemo lysis present, Results??could be affected.?? Performed By: #### L 100.0100, L501.4021, L500.2500 ####[facility] [address] [place], [address] Trop T High Sen 51 ng/L High <=22 [facility] Comment on above: Performed By: #### L 300.8000, L500.4050, L501.4021 ####[facility] [address] [place], [address] Laboratory - Chemistry and C hemistry - challengeOrdered By: Ana Flores on 11-09-2024 AST [Catalytic activity/Vol] 30 U/L <38 [facility] Lymphocytes Auto (Unsp spec) [#/Vol]Ordered By: Tayo Cannon on 11-09-2024 Lymphocytes (Bld) [#/Vol] 0.76 10*3/uL Low 0.83-4.51 [facility] Absolute lymphocyte count 0.76 X10^3/uL Low 0.83-4.51 [facility] Lymphocytes Auto (Unsp spec) [#/Vol]Ordered By: Ana Flores on 11-09-2024 Lymphocytes (Bld) [#/Vol] 1.15 10*3/uL 0.83-4.51 [facility] Absolute lymphocyte count 1.15 X10^3/uL 0.83-4.51 [facility] Lymphocytes/100 WBC Auto (Un sp spec)Ordered By: Tayo Cannon on 11-09-2024 Lymphocytes/100 WBC (Bld) 11.9 % Low - [facility] Automated lymphocyte count as percentage of total leukocytes 11.9 % Low - [facility] Lymphocytes/100 WBC Auto (Un sp spec)Ordered By: Ana Flores on 11-09-2024 Lymphocytes/100 WBC (Bld) 14.8 % Low - [facility] Automated lymphocyte count as percentage of total leukocytes 14.8 % [facility] MCV (RBC) [Entitic vol]Order ed By: Tayo Cannon on 11-09-2024 MCV (mean corpuscular volume) determination 89.1 fL 80-94 [facility] MCV (RBC) [Entitic vol]Order ed By: Ana Flores on 11-09-2024 MCV (mean corpuscular volume) determination 88.6 fL 80-94 [facility] MCV (mean corpuscular volume ) determinationOrdered By: Tayo Cannon on 11-09-2024 MCV (RBC) [Entitic vol] 89.1 fL 80-94 [facility] MCV (mean corpuscular volume ) determinationOrdered By: Ana Flores on 11-09-2024 MCV (RBC) [Entitic vol] 88.6 fL 80-94 [facility] Mean corpuscular hemoglobin (MCH) determinationOrdered By: Tayo Cannon on 11-09-2024 MCH (RBC) [Entitic mass] 28.0 pg 27.0-32.0 [facility] Mean corpuscular hemoglobin (MCH) determination 28.0 pg 27.0-32.0 [facility] Mean corpuscular hemoglobin (MCH) determinationOrdered By: Ana Flores on 11-09-2024 MCH (RBC) [Entitic mass] 27.9 pg 27.0-32.0 [facility] Mean corpuscular hemoglobin (MCH) determination 27.9 pg 27.0-32.0 [facility] Mean corpuscular hemoglobin concentration (MCHC) determinationOrdered By: Tayo Cannon on 11-09-2024 MCHC (RBC) [Mass/Vol] 31.4 g/dL Low 32-36 [facility] Mean corpuscular hemoglobin concentration (MCHC) determination 31.4 g/dL Low 32-36 [facility] Mean corpuscular hemoglobin concentration (MCHC) determinationOrdered By: Ana Flores on 11-09-2024 MCHC (RBC) [Mass/Vol] 31.5 g/dL Low 32-36 [facility] Mean corpuscular hemoglobin concentration (MCHC) determination 31.5 g/dL Low 32-36 [facility] Mean platelet volume determi nationOrdered By: Tayo Cannon on 11-09-2024 Platelet mean volume (Bld) [Entitic vol] 10.8 fL 6.2-12.0 [facility] Mean platelet volume determination 10.8 fl 6.2-12.0 [facility] Mean platelet volume determi nationOrdered By: Ana Flores on 11-09-2024 Platelet mean volume (Bld) [Entitic vol] 9.8 fL 6.2-12.0 [facility] Mean platelet volume determination 9.8 fl 6.2-12.0 [facility] Microscopic analysis of urin e for red blood cells (RBC)Ordered By: Tayo Cannon on 11-09-2024 Urine RBC 5-10 SEEN /hpf 0-5 [facility] Microscopic analysis of urine for red blood cells (RBC) 5-10 SEEN /hpf 0-5 [facility] Monocyte percentageOrdered B y: Tayo Cannon on 11-09-2024 Monocytes/100 WBC (Bld) 9.7 % 0-10 [facility] Monocyte percentage 9.7 % 0-10 [facility] Monocyte percentageOrdered B y: Ana Flores on 11-09-2024 Monocytes/100 WBC (Bld) 10.0 % 0-10 [facility] Monocyte percentage 10.0 % 0-10 [facility] Mucus LM Ql (Urine sed)Order ed By: Tayo Cannon on 11-09-2024 Mucus Ql (Urine sed) 0 SEEN /hpf [facility] Neutrophil percentageOrdered By: Tayo Cannon on 11-09-2024 Neutrophils/100 WBC (Bld) 75.7 % High 47-70 [facility] Neutrophil percentage 75.7 % High 47-70 [facility] Neutrophil percentageOrdered By: Ana Flores on 11-09-2024 Neutrophils/100 WBC (Bld) 72.7 % High 47-70 [facility] Neutrophil percentage 72.7 % High 47-70 [facility] Nitrite Test strip Ql (U)Ord ered By: Tayo Cannon on 11-09-2024 Nitrite Ql (U) Negative Negative [facility] No Panel InformationOrdered By: Ana Flores on 11-09-2024 30 U/L <38 [facility] Nucleated red blood cell per centageOrdered By: Tayo Cannon on 11-09-2024 Nucleated RBC/100 WBC (Bld) [Ratio] 0 % 0-5 [facility] Nucleated red blood cell percentage 0 % 0-5 [facility] Nucleated red blood cell per centageOrdered By: Ana Flores on 11-09-2024 Nucleated RBC/100 WBC (Bld) [Ratio] 0 % 0-5 [facility] Nucleated red blood cell percentage 0 % 0-5 [facility] Platelet countOrdered By: Vane Cannon on 11-09-2024 Platelet Count See comment 150-450 [facility] Comment on above: Please note: For thi s sample, a platelet estimate is provided rather than a platelet count due to platelet clumping. Other parameters associated with this sample are not affected by platelet clumping. If a more accurate platelet count is required, a redraw of the patient will be necessary. Platelet count See comment 150-450 [facility] Platelet countOrdered By: Chad Flores on 11-09-2024 Platelets (Bld) [#/Vol] 230 10*3/uL 150-450 [facility] Platelet count 230 K/mm3 150-450 [facility] Platelet estimateOrdered By: Tayo Cannon on 11-09-2024 Platelets LM Ql (Bld) ADEQUATE ADEQ [facility] Platelets LM Ql (Bld)Ordered By: Tayo Cannon on 11-09-2024 Platelet Estimate ADEQUATE ADEQ [facility] Platelet estimate ADEQUATE ADEQ [facility] Potassium (Unsp spec) [Mass/ Vol]Ordered By: Tayo Cannon on 11-09-2024 Potassium [Moles/Vol] 5.0 mmol/L 3.3-5.1 [facility] Comment on above: Hemolysis present, R esults could be affected. Potassium measurement (mass/volume) 5.0 mmol/L 3.3-5.1 [facility] Potassium (Unsp spec) [Mass/ Vol]Ordered By: Ana Flores on 11-09-2024 Potassium [Moles/Vol] 4.5 mmol/L 3.3-5.1 [facility] Potassium measurement (mass/volume) 4.5 mmol/L 3.3-5.1 [facility] Potassium measurement (mass/ volume)Ordered By: Tayo Cannon on 11-09-2024 Potassium (Unsp spec) [Mass/Vol] 5.0 mmol/L 3.3-5.1 [facility] Potassium measurement (mass/ volume)Ordered By: Ana Flores on 11-09-2024 Potassium (Unsp spec) [Mass/Vol] 4.5 mmol/L 3.3-5.1 [facility] Protein (U) [Mass/Vol]Ordere d By: Tayo Cannon on 11-09-2024 Urine protein measurement (mass/volume) 309.0 mg/dL High 0.0-12.0 [facility] Protein Test strip Ql (U)Ord ered By: Tayo Cannon on 11-09-2024 Protein Ql (U) [facility] Comment on above: Test not performedSE E URINE CHEMISTRY PROTIEN ORDER FOR THIS RESULT. Urine protein assay by test strip, semi-quantitative [facility] Protein, Urine (Random)on Protein (U) [Mass/Vol] 309.0 mg/dL High 0.0-12.0 [facility] Comment on above: Performed By: #### L 501.1930 ####[facility] [address] [place], [place], [id number] RBC Auto (Bld) [#/Vol]Ordere d By: Tayo Cannon on 11-09-2024 RBC (Bld) [#/Vol] 3.93 10*6/uL Low 4.6-6.2 [facility] Automated blood erythrocyte count 3.93 M/mm3 Low 4.6-6.2 [facility] RBC Auto (Bld) [#/Vol]Ordere d By: Ana Flores on 11-09-2024 RBC (Bld) [#/Vol] 3.76 10*6/uL Low 4.6-6.2 [facility] Automated blood erythrocyte count 3.76 M/mm3 Low 4.6-6.2 [facility] Serum creatinine measurement (mass/volume)Ordered By: Tayo Cannon on 11-09-2024 Creatinine [Mass/Vol] 3.29 mg/dL High 0.70-1.20 [facility] Serum creatinine measurement (mass/volume)Ordered By: Ana Flores on 11-09-2024 Creatinine [Mass/Vol] 2.95 mg/dL High 0.70-1.20 [facility] Serum globulin measurementOr dered By: Ana Florse on 11-09-2024 Globulin (S) [Mass/Vol] 3.5 g/dL 2.2-4.2 [facility] Serum globulin measurement 3.5 g/dL 2.2-4.2 [facility] Serum glucose measurement (m ass/volume)Ordered By: Tayo Cannon on 11-09-2024 Glucose [Mass/Vol] 125 mg/dL High 70-[address] [facility] Serum glucose measurement (m ass/volume)Ordered By: Ana Flores on 11-09-2024 Glucose [Mass/Vol] 125 mg/dL High 70-[address] [facility] Serum or plasma alanine magana otransferase (ALT) measurementOrdered By: Ana Flores on 11-09-2024 ALT [Catalytic activity/Vol] 13 U/L <47 [facility] Serum or plasma albumin joshua urement (mass/volume)Ordered By: Ana Flores on 11-09-2024 Albumin [Mass/Vol] 3.1 g/dL Low 3.4-4.[address] [facility] Serum or plasma albumin/glob ulin mass ratioOrdered By: Ana Flores on 11-09-2024 Albumin/Globulin [Mass ratio] 0.9 {ratio} 0.9-2.4 [facility] Serum or plasma alkaline denise sphatase measurementOrdered By: Ana Flores on 11-09-2024 ALP [Catalytic activity/Vol] 81 U/L 40-129 [facility] Serum or plasma calcium joshua urement (mass/volume)Ordered By: Tayo Cannon on 11-09-2024 Calcium [Mass/Vol] 9.0 mg/dL 7.6-11.[address] [facility] Serum or plasma calcium joshua urement (mass/volume)Ordered By: Ana Flores on 11-09-2024 Calcium [Mass/Vol] 8.7 mg/dL 7.6-11.[address] [facility] Serum or plasma urea nitroge n measurement (mass/volume)Ordered By: Tayo Cannon on 11-09-2024 Urea nitrogen [Mass/Vol] 34 mg/dL High 11-11 [facility] Serum or plasma urea nitroge n measurement (mass/volume)Ordered By: Ana Flores on 11-09-2024 Urea nitrogen [Mass/Vol] 31 mg/dL High - [facility] Sodium levelOrdered By: Ana Cannon on 11-09-2024 Sodium [Moles/Vol] 131 mmol/L Low 133-[address] [facility] Sodium level 131 mmol/L Low 133-145 [facility] Sodium levelOrdered By: Rea Flores on 11-09-2024 Sodium [Moles/Vol] 131 mmol/L Low 133-[address] [facility] Sodium level 131 mmol/L Low 133-145 [facility] Specific gravity (U) [Rel de nsity]Ordered By: Tayo Cannon on 11-09-2024 Urine specific gravity measurement 1.010 1.002-1.030 [facility] Squamous epithelial cells de tection in urine sediment by light microscopyOrdered By: Tayo Cannon on 11-09-2024 Epithelial cells.squamous LM Ql (Urine sed) 0 SEEN /hpf 0-5 [facility] Squamous epithelial cells detection in urine sediment by light microscopy 0 SEEN /hpf [facility] Total proteinOrdered By: Renetta Flores on 11-09-2024 Protein [Mass/Vol] 6.6 g/dL 5.9-8.[address] [facility] Total protein 6.6 g/dL 5.9-8.4 [facility] Troponin T.cardiac High sens itivity method [Mass/Vol]Ordered By: Tayo Cannon on 11-09-2024 Troponin T High Sensitivity 47 ng/L High <22 [facility] Comment on above: Delta: 51 on 5-0205Hemolysis present, Results could be affected. Troponin T.cardiac [Mass/volume] in Serum or Plasma by High sensitivity method 47 ng/L High <22 [facility] Troponin T.cardiac High sens itivity method [Mass/Vol]Ordered By: Ana Flores on 11-09-2024 Troponin T High Sensitivity 2 Hour 47 ng/L High <22 [facility] Troponin T.cardiac [Mass/volume] in Serum or Plasma by High sensitivity method 47 ng/L High <22 [facility] Troponin T High Sensitivity 51 ng/L High <22 [facility] Troponin T.cardiac [Mass/volume] in Serum or Plasma by High sensitivity method 51 ng/L High <22 [facility] Troponin T.cardiac [Mass/vol ume] in Serum or Plasma by High sensitivity methodOrdered By: Tayo Cannon on 11-09-2024 Troponin T.cardiac High sensitivity method [Mass/Vol] 47 ng/L High <22 [facility] Troponin T.cardiac [Mass/vol ume] in Serum or Plasma by High sensitivity methodOrdered By: Ana Flores on 11-09-2024 Troponin T.cardiac High sensitivity method [Mass/Vol] 47 ng/L High <22 [facility] Troponin T.cardiac High sensitivity method [Mass/Vol] 51 ng/L High <22 [facility] Urea nitrogen [Mass/Vol]Orde red By: Tayo Cannon on 11-09-2024 Serum or plasma urea nitrogen measurement (mass/volume) 34 mg/dL High 4-19 [facility] Urea nitrogen [Mass/Vol]Orde red By: Ana Flores on 11-09-2024 Serum or plasma urea nitrogen measurement (mass/volume) 31 mg/dL High 4-19 [facility] Urinalysis, Completeon 11-09 YEAST RARE Normal None Seen [facility] Comment on above: Order Comment: ALIE CTOR TO SPECIFY Performed By: #### L 400.0001 ####[facility] [address] [place], [address] RBC 5-10 SEEN Normal 0-5 [facility] Comment on above: Order Comment: ALIE CTOR TO SPECIFY Performed By: #### L 400.0001 ####[facility] [address] [place], [address] WBC 0-5 SEEN Normal 0-5 [facility] Comment on above: Order Comment: ALIE CTOR TO SPECIFY Performed By: #### L 400.0001 ####[facility] [address] [place], [address] BACTERIA 0 SEEN Normal None Seen [facility] Comment on above: Order Comment: ALIE CTOR TO SPECIFY Performed By: #### L 400.0001 ####[facility] [address] [place], [address] EPI,SQUAMOUS 0 SEEN Normal 0-5 [facility] Comment on above: Order Comment: ALIE CTOR TO SPECIFY Performed By: #### L 400.0001 ####[facility] [address] [place], [address] Mucus Ql (Urine sed) 0 SEEN Normal [facility] Comment on above: Order Comment: ALIE CTOR TO SPECIFY Performed By: #### L 400.0001 ####[facility] [address] [place], [address] Urine blood detectionOrdered By: Raquelus Davis on 11-09-2024 Urine Occult Blood 150 /ul High Negative [facility] Urine blood detection 150 /ul High Negative [facility] Urine clarityOrdered By: Raquel us Ungnick on 11-09-2024 Clarity (U) Clear Clear [facility] Urine color determinationOrd ered By: Tayo Cannon on 11-09-2024 Color (U) Yellow Yellow [facility] Urine glucose detectionOrder ed By: Tayo Cannon on 11-09-2024 Glucose Ql (U) 50 mg/dl High Normal [facility] Urine leukocyte esterase det ection by dipstickOrdered By: Tayo Cannon on 11-09-2024 Leukocyte esterase Test strip Ql (U) Negative Negative [facility] Urine pHOrdered By: Tayo Yu gur on 11-09-2024 pH (U) 8.0 [pH] 5.0 - 8.0 [facility] Urine protein measurement (m ass/volume)Ordered By: Tayo Cannon on 11-09-2024 Protein (U) [Mass/Vol] 309.0 mg/dL High 0.0-12.0 [facility] Urine sediment bacteria coun t by microscopy (number/high power field)Ordered By: Tayo Cannon on 11-09-2024 Bacteria LM.HPF (Urine sed) [#/Area] 0 /[HPF] None Seen [facility] Urine sediment yeast count b y microscopy (number/high powered field)Ordered By: Tayo Cannon on 11-09-2024 Yeast LM.HPF (Urine sed) [#/Area] RARE /hpf None Seen [facility] Urine specific gravity measu rementOrdered By: Tayo Cannon on 11-09-2024 Specific gravity (U) [Rel density] 1.010 1.002-1.030 [facility] Urine total bilirubin detect ion by test stripOrdered By: Tayo Cannon on 11-09-2024 Urine total bilirubin detection by test strip Negative Negative [facility] Urine urobilinogen measureme ntOrdered By: Tayo Cannon on 11-09-2024 Urobilinogen Ql (U) Normal mg/dl Normal [facility] Urobilinogen Ql (U)Ordered B y: Tayo Cannon on 11-09-2024 Urine Urobilinogen Normal mg/dl Normal [facility] Urine urobilinogen measurement Normal mg/dl Normal [facility] White blood cell (WBC) count Ordered By: Tayo Cannon on 11-09-2024 WBC (Bld) [#/Vol] 6.4 10*3/uL 4.4-11.[address] [facility] White blood cell (WBC) count 6.4 K/mm3 4.4-11.0 [facility] White blood cell (WBC) count Ordered By: Ana Flores on 11-09-2024 WBC (Bld) [#/Vol] 7.8 10*3/uL 4.4-11.[address] [facility] White blood cell (WBC) count 7.8 K/mm3 4.4-11.0 [facility] White blood cell countOrdere d By: Tayo Cannon on 11-09-2024 Urine WBC 0-5 SEEN /hpf 0-5 [facility] White blood cell count 0-5 SEEN /hpf 0-5 [facility] White blood cell count 0-5 SEEN /hpf 0-5 [facility] Yeast LM.HPF (Urine sed) [#/ Area]Ordered By: Tayo Cannon on 11-09-2024 Urine Yeast RARE /hpf None Seen [facility] Urine sediment yeast count by microscopy (number/high powered field) RARE /hpf None Seen [facility] pH (U)Ordered By: Tayo velez on 11-09-2024 Urine pH 8.0 5.0 - 8.0 [facility] Oncology Visit Reporton 09-25 Oncology Visit Report Normal [facility] Oncology Visit Reporton 09-23 Oncology Visit Report Normal [facility] Limited echocardiogram repor tOrdered By: Patrice Loja on 10-05-2024 Study report [facility] [address] [place] [address] ONC Echo, Limited Study 10/05/24 1021 MR#: [id number] Acct: [id number] Name: KRISSY WRIGHT Rep #:[id number] : [id number] 68 From: Patrice Patrick Attending Dr: Dr. 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: Signed [facility] Work Phone: ONC Echo, Limited Studyon ONC Echo, Limited Study Normal [facility] ALP [Catalytic activity/Vol] Ordered By: Moody Rodriguez on 10-04-2024 Serum or plasma alkaline phosphatase measurement 74 U/L 40-129 [facility] ALT [Catalytic activity/Vol] Ordered By: Moody Rodriguez on 10-04-2024 Serum or plasma alanine aminotransferase (ALT) measurement 10 U/L <47 [facility] Abdomen/Pelvis W IV Cont ONL Yon 10-04-2024 Abdomen/Pelvis W IV Cont ONLY Normal [facility] Absolute lymphocyte countOrd ered By: Moody Rodriguez on 10-04-2024 Lymphocytes Auto (Unsp spec) [#/Vol] 0.90 10*3/uL 0.83-4.51 [facility] Absolute neutrophil countOrd ered By: Moody Rodriguez on 10-04-2024 Neutrophils (Bld) [#/Vol] 4.8 10*3/uL 2.0-7.7 [facility] Absolute neutrophil count 4.8 X10^3/uL 2.0-7.7 [facility] Activated partial thrombopla stin time (aPTT) in platelet poor plasma by coagulation aOrdered By: Moody Rodriguez on 10-04-2024 aPTT Coag (PPP) [Time] 36.8 s High 24.1-36.2 [facility] Albumin [Mass/Vol]Ordered By : Moody Rodriguez on 10-04-2024 Serum or plasma albumin measurement (mass/volume) 3.4 g/dL 3.4-4.8 [facility] Anion gap [Moles/Vol]Ordered By: Moody Rodriguez on 10-04-2024 Anion gap in Serum or Plasma 17 High - [facility] Anion gap in Serum or Plasma Ordered By: Moody Rodriguez on 10-04-2024 Anion gap [Moles/Vol] 17 mmol/L High - [facility] Automated lymphocyte count a s percentage of total leukocytesOrdered By: Moody Rodriguez on 10-04-2024 Lymphocytes/100 WBC Auto (Unsp spec) 13.8 % Low 19-41 [facility] BUN/creatinine ratioOrdered By: Moody Rodriguez on 10-04-2024 Urea nitrogen/Creatinine [Mass ratio] 12.9 mg/mg 05-14 [facility] BUN/creatinine ratio 12.9 RATIO 05-14 [facility] Basic Metabolic Profile (BMP )on 10-04-2024 BUN/CRE 12.9 RATIO Normal 05-14 [facility] Comment on above: Performed By: #### L 300.3900, L300.4310, L500.2500, L500.3400, L100.0100 ####[facility] [address] [place], [address] Calcium [Mass/Vol] 9.1 mg/dL Normal 7.6-11.[address] [facility] Comment on above: Performed By: #### L 300.3900, L300.4310, L500.2500, L500.3400, L100.0100 ####[facility] [address] [place], [address] Chloride [Moles/Vol] 98 mmol/L Normal 98-108 [facility] Comment on above: Performed By: #### L 300.3900, L300.4310, L500.2500, L500.3400, L100.0100 ####[facility] [address] [place], [address] CO2 [Moles/Vol] 23.2 mmol/L Normal 21.0-32.0 [facility] Comment on above: Performed By: #### L 300.3900, L300.4310, L500.2500, L500.3400, L100.0100 ####[facility] [address] [place], [address] Creatinine [Mass/Vol] 4.50 mg/dL High 0.70-1.20 [facility] Comment on above: Performed By: #### L 300.3900, L300.4310, L500.2500, L500.3400, L100.0100 ####[facility] [address] [place], [address] ECRCL 19.49 ml/min Low 50-250 [facility] Comment on above: Performed By: #### L 300.3900, L300.4310, L500.2500, L500.3400, L100.0100 ####[facility] [address] [place], [address] GAP 17 High 5-15 [facility] Comment on above: Performed By: #### L 300.3900, L300.4310, L500.2500, L500.3400, L100.0100 ####[facility] [address] [place], [address] GFR/1.73 sq M.predicted among non-blacks MDRD (S/P/Bld) [Vol rate/Area] 13 mL/min/{1.73_m2} Low >60 [facility] Comment on above: Result Comment: mL/m in/1.73m2 CKD-EPI Creatinine Equation (2020) Performed By: #### L 300.3900, L300.4310, L500.2500, L500.3400, L100.0100 ####[facility] [address] [place], [address] Glucose [Mass/Vol] 186 mg/dL High 70-[address] [facility] Comment on above: Performed By: #### L 300.3900, L300.4310, L500.2500, L500.3400, L100.0100 ####[facility] [address] [place], [address] Potassium [Moles/Vol] 4.3 mmol/L Normal 3.3-5.1 [facility] Comment on above: Performed By: #### L 300.3900, L300.4310, L500.2500, L500.3400, L100.0100 ####[facility] [address] [place], [address] Sodium [Moles/Vol] 137 mmol/L Normal 133-[address] [facility] Comment on above: Performed By: #### L 300.3900, L300.4310, L500.2500, L500.3400, L100.0100 ####[facility] [address] [place], [address] Urea nitrogen [Mass/Vol] 58 mg/dL High 4-19 [facility] Comment on above: Performed By: #### L 300.3900, L300.4310, L500.2500, L500.3400, L100.0100 ####[facility] [address] [place], [address] Basophil percentageOrdered B y: Moody Rodriguez on 10-04-2024 Basophils/100 WBC (Bld) 0.8 % 0-1 [facility] Basophil percentage 0.8 % 0-1 [facility] Bilirubin Test strip Ql (U)O rdered By: Moody Rodriguez on 10-04-2024 Bilirubin Ql (U) Negative Negative [facility] Bilirubin directOrdered By: Moody Rodriguez on 10-04-2024 Bilirubin.direct [Mass/Vol] 0.24 mg/dL 0.00-0.30 [facility] Bilirubin, totalOrdered By: Moody Rodriguez on 10-04-2024 Bilirubin [Mass/Vol] 0.53 mg/dL 0.00-1.30 [facility] Bilirubin, total 0.53 mg/dL 0.00-1.30 [facility] Bilirubin.direct [Mass/Vol]O rdered By: Moody Rodriguez on 10-04-2024 Bilirubin direct 0.24 mg/dL 0.00-0.30 [facility] CBC W/Diff, Automatedon 09-23 Absolute Lymph 0.90 X10 3/uL Normal 0.83-4.51 [facility] Comment on above: Performed By: #### L 300.3900, L300.4310, L500.2500, L500.3400, L100.0100 ####[facility] [address] [place], [address] Absolute Neut 4.8 X10 3/uL Normal 2.0-7.7 [facility] Comment on above: Performed By: #### L 300.3900, L300.4310, L500.2500, L500.3400, L100.0100 ####[facility] [address] [place], [address] Basophils/100 WBC (Bld) 0.8 % Normal 0-1 [facility] Comment on above: Performed By: #### L 300.3900, L300.4310, L500.2500, L500.3400, L100.0100 ####[facility] [address] [place], [address] Eosinophils/100 WBC (Bld) 2.8 % Normal 0-5 [facility] Comment on above: Performed By: #### L 300.3900, L300.4310, L500.2500, L500.3400, L100.0100 ####[facility] [address] [place], [address] Erythrocyte distribution width (RBC) [Ratio] 14.8 % High 11.6-14.6 [facility] Comment on above: Performed By: #### L 300.3900, L300.4310, L500.2500, L500.3400, L100.0100 ####[facility] [address] [place], [address] Hematocrit (Bld) [Volume fraction] 33.8 % Low 40-54 [facility] Comment on above: Performed By: #### L 300.3900, L300.4310, L500.2500, L500.3400, L100.0100 ####[facility] [address] [place], [address] Hemoglobin (Bld) [Mass/Vol] 10.9 g/dL Low 13.0-16.5 [facility] Comment on above: Performed By: #### L 300.3900, L300.4310, L500.2500, L500.3400, L100.0100 ####[facility] [address] [place], [address] IG% 0.300 Normal 0.0-0.9 [facility] Comment on above: Result Comment: IG% - Immature Granulocytes (promyelocytes, myelocytes andmetamyelocytes) > 1% indicates that a LEFT SHIFT is Present. Performed By: #### L 300.3900, L300.4310, L500.2500, L500.3400, L100.0100 ####[facility] [address] [place], [address] Lymphocytes/100 WBC (Bld) 13.8 % Low 19-41 [facility] Comment on above: Performed By: #### L 300.3900, L300.4310, L500.2500, L500.3400, L100.0100 ####[facility] [address] [place], [address] MCH (RBC) [Entitic mass] 30.0 pg Normal 27.0-32.0 [facility] Comment on above: Performed By: #### L 300.3900, L300.4310, L500.2500, L500.3400, L100.0100 ####[facility] [address] [place], [address] MCHC (RBC) [Mass/Vol] 32.2 g/dL Normal 32-36 [facility] Comment on above: Performed By: #### L 300.3900, L300.4310, L500.2500, L500.3400, L100.0100 ####[facility] [address] [place], [address] MCV (RBC) [Entitic vol] 93.1 fL Normal 80-94 [facility] Comment on above: Performed By: #### L 300.3900, L300.4310, L500.2500, L500.3400, L100.0100 ####[facility] [address] [place], [address] Monocytes/100 WBC (Bld) 8.3 % Normal 0-10 [facility] Comment on above: Performed By: #### L 300.3900, L300.4310, L500.2500, L500.3400, L100.0100 ####[facility] [address] [place], [address] Neutrophils/100 WBC (Bld) 74.0 % High 47-70 [facility] Comment on above: Performed By: #### L 300.3900, L300.4310, L500.2500, L500.3400, L100.0100 ####[facility] [address] [place], [address] Nucleated RBC (Bld) [#/Vol] 0 10*3/uL Normal 0-5 [facility] Comment on above: Performed By: #### L 300.3900, L300.4310, L500.2500, L500.3400, L100.0100 ####[facility] [address] [place], [address] Platelet mean volume (Bld) [Entitic vol] 8.9 fL Normal 6.2-12.0 [facility] Comment on above: Performed By: #### L 300.3900, L300.4310, L500.2500, L500.3400, L100.0100 ####[facility] [address] [place], [address] Platelets (Bld) [#/Vol] 184 10*3/uL Normal 150-450 [facility] Comment on above: Performed By: #### L 300.3900, L300.4310, L500.2500, L500.3400, L100.0100 ####[facility] [address] [place], [address] RBC (Bld) [#/Vol] 3.63 10*6/uL Low 4.6-6.2 [facility] Comment on above: Performed By: #### L 300.3900, L300.4310, L500.2500, L500.3400, L100.0100 ####[facility] [address] [place], [address] RDW SD 49.6 fl High 35.1-43.9 [facility] Comment on above: Performed By: #### L 300.3900, L300.4310, L500.2500, L500.3400, L100.0100 ####[facility] [address] [place], [address] WBC (Bld) [#/Vol] 6.5 10*3/uL Normal 4.4-11.[address] [facility] Comment on above: Performed By: #### L 300.3900, L300.4310, L500.2500, L500.3400, L100.0100 ####[facility] [address] [place], [address] Calcium [Mass/Vol]Ordered By : Moody Rodriguez on 10-04-2024 Serum or plasma calcium measurement (mass/volume) 9.1 mg/dL 7.6-11.0 [facility] Carbon dioxide, total [Moles /volume] in Central venous bloodOrdered By: Moody Rodriguez on 10-04-2024 CO2 [Moles/Vol] 23.2 mmol/L 21.0-32.0 [facility] Carbon dioxide, total [Moles/volume] in Central venous blood 23.2 mmol/L 21.0-32.0 [facility] Chloride assayOrdered By: Bhavin Rodriguez on 10-04-2024 Chloride [Moles/Vol] 98 mmol/L 98-108 [facility] Chloride assay 98 mmol/L 98-108 [facility] Clarity (U)Ordered By: Gerald Rodriguez on 10-04-2024 Urine clarity Sl. Cloudy Clear [facility] Color (U)Ordered By: Moody Rodriguez on 10-04-2024 Urine color determination Yellow Yellow [facility] Creatinine [Mass/Vol]Ordered By: Moody Rodriguez on 10-04-2024 Serum creatinine measurement (mass/volume) 4.50 mg/dL High 0.70-1.20 [facility] Emergency Department Summary on 10-04-2024 Emergency Department Summary Normal [facility] Eosinophil percentageOrdered By: Moody Rodriguez on 10-04-2024 Eosinophils/100 WBC (Bld) 2.8 % 0-5 [facility] Eosinophil percentage 2.8 % 0-5 [facility] Epithelial cells.squamous LM Ql (Urine sed)Ordered By: Moody Rodriguez on 10-04-2024 Epithelial cells.squamous LM.HPF (Urine sed) [#/Area] 0 /[HPF] 0-5 [facility] Erythrocyte distribution wid th (RBC) [Ratio]Ordered By: Moody Rodriguez on 10-04-2024 Erythrocyte distribution width ratio 14.8 % High 11.6-14.6 [facility] Erythrocyte distribution width standard deviation 49.6 fl High 35.1-43.9 [facility] Erythrocyte distribution wid th ratioOrdered By: Moody Rodriguez on 10-04-2024 Erythrocyte distribution width (RBC) [Ratio] 14.8 % High 11.6-14.6 [facility] Erythrocyte distribution wid th standard deviationOrdered By: Moody Rodriguez on 10-04-2024 Erythrocyte distribution width (RBC) [Entitic vol] 49.6 fL High 35.1-43.9 [facility] Erythrocyte distribution width (RBC) [Ratio] 49.6 fl High 35.1-43.9 [facility] Estimation of creatinine donavan aranceOrdered By: Moody Rodriguez on 10-04-2024 Estimated Creatinine Clearance Calc 19.49 ml/min Low 50-250 [facility] Estimation of creatinine clearance 19.49 ml/min Low 50-250 [facility] GFR/1.73 sq M.predicted alivia g non-blacks MDRD (S/P/Bld) [Vol rate/Area]Ordered By: Moody Rodriguez on 10-04-2024 Estimated GFR (MDRD) Non-Af Amer 13 Low >60 [facility] Comment on above: mL/min/1.73m2 CKD-EP I Creatinine Equation (2020) Glomerular filtration rate (GFR) estimation/1.73 sq m using serum, plasma, or whole b 13 Low >60 [facility] Glomerular filtration rate ( GFR) estimation/1.73 sq m using serum, plasma, or whole bOrdered By: Moody Rodriguez on 10-04-2024 GFR/1.73 sq M.predicted among non-blacks MDRD (S/P/Bld) [Vol rate/Area] 13 mL/min/{1.73_m2} Low >60 [facility] Glucose Ql (U)Ordered By: Bhavin Rodriguez on 10-04-2024 Glucose (U) [Mass/Vol] 50 mg/dL High Normal [facility] Urine glucose detection 50 mg/dl High Normal [facility] Glucose [Mass/Vol]Ordered By : Moody Rodriguez on 10-04-2024 Serum glucose measurement (mass/volume) 186 mg/dL High 70-99 [facility] Hematocrit Auto (Bld) [Volum e fraction]Ordered By: Moody Rodriguez on 10-04-2024 Hematocrit (Bld) [Volume fraction] 33.8 % Low 40-54 [facility] Automated blood hematocrit (percentage) 33.8 % Low 40-54 [facility] Hemoglobin measurementOrdere d By: Moody Rodriguez on 10-04-2024 Hemoglobin (Bld) [Mass/Vol] 10.9 g/dL Low 13.0-16.5 [facility] Hemoglobin measurement 10.9 g/dL Low 13.0-16.5 [facility] Immature granulocytes/100 WB C Auto (Bld)Ordered By: Moody Rodriguez on 10-04-2024 Immature granulocytes/100 WBC (Bld) 0.300 % 0.0-0.9 [facility] Comment on above: IG% - Immature Granu locytes (promyelocytes, myelocytes and metamyelocytes) > 1% indicates that a LEFT SHIFT is Present. Automated immature granulocyte percentage 0.300 % 0.0-0.9 [facility] International normalized rat io (INR) calculationOrdered By: Moody Rodriguez on 10-04-2024 INR Coag (Bld) [Relative time] 1.3 {INR} [facility] International normalized ratio (INR) calculation 1.3 [facility] Ketones Test strip Ql (U)Ord ered By: Moody Rodriguez on 10-04-2024 Ketones Ql (U) Negative Negative [facility] Laboratory - Chemistry and C hemistry - challengeOrdered By: Moody Rodriguez on 10-04-2024 AST [Catalytic activity/Vol] 23 U/L <38 [facility] Leukocyte esterase Test stri p Ql (U)Ordered By: Moody Rodriguez on 10-04-2024 Urine leukocyte esterase detection by dipstick 25 /ul High Negative [facility] Liver Profileon 10-04-2024 Albumin [Mass/Vol] 3.4 g/dL Normal 3.4-4.[address] [facility] Comment on above: Performed By: #### L 300.3900, L300.4310, L500.2500, L500.3400, L100.0100 ####[facility] [address] [place], [address] ALK PHOS 74 U/L Normal 40-129 [facility] Comment on above: Performed By: #### L 300.3900, L300.4310, L500.2500, L500.3400, L100.0100 ####[facility] [address] [place], [address] ALT [Catalytic activity/Vol] 10 U/L Normal <=46 [facility] Comment on above: Performed By: #### L 300.3900, L300.4310, L500.2500, L500.3400, L100.0100 ####[facility] [address] [place], [address] AST [Catalytic activity/Vol] 23 U/L Normal <=37 [facility] Comment on above: Performed By: #### L 300.3900, L300.4310, L500.2500, L500.3400, L100.0100 ####[facility] [address] [place], [address] Bilirubin [Mass/Vol] 0.53 mg/dL Normal 0.00-1.30 [facility] Comment on above: Performed By: #### L 300.3900, L300.4310, L500.2500, L500.3400, L100.0100 ####[facility] [address] [place], [address] Bilirubin.direct [Mass/Vol] 0.24 mg/dL Normal 0.00-0.30 [facility] Comment on above: Performed By: #### L 300.3900, L300.4310, L500.2500, L500.3400, L100.0100 ####[facility] [address] [place], [address] Globulin (S) [Mass/Vol] 3.6 g/dL Normal 2.2-4.2 [facility] Comment on above: Performed By: #### L 300.3900, L300.4310, L500.2500, L500.3400, L100.0100 ####[facility] [address] [place], [address] T PROT 7.0 g/dL Normal 5.9-8.4 [facility] Comment on above: Performed By: #### L 300.3900, L300.4310, L500.2500, L500.3400, L100.0100 ####[facility] [address] [place], [address] Lymphocytes Auto (Unsp spec) [#/Vol]Ordered By: Moody Rodriguez on 10-04-2024 Lymphocytes (Bld) [#/Vol] 0.90 10*3/uL 0.83-4.51 [facility] Absolute lymphocyte count 0.90 X10^3/uL 0.83-4.51 [facility] Lymphocytes/100 WBC Auto (Un sp spec)Ordered By: Moody Rodriguez on 10-04-2024 Lymphocytes/100 WBC (Bld) 13.8 % Low 19-41 [facility] Automated lymphocyte count as percentage of total leukocytes 13.8 % Low 19-41 [facility] MCV (RBC) [Entitic vol]Order ed By: Moody Rodriguez on 10-04-2024 MCV (mean corpuscular volume) determination 93.1 fL 80-94 [facility] MCV (mean corpuscular volume ) determinationOrdered By: Moody Rodriguez on 10-04-2024 MCV (RBC) [Entitic vol] 93.1 fL 80-94 [facility] Mean corpuscular hemoglobin (MCH) determinationOrdered By: Moody Rodriguez on 10-04-2024 MCH (RBC) [Entitic mass] 30.0 pg 27.0-32.0 [facility] Mean corpuscular hemoglobin (MCH) determination 30.0 pg 27.0-32.0 [facility] Mean corpuscular hemoglobin concentration (MCHC) determinationOrdered By: Moody Rodriguez on 10-04-2024 MCHC (RBC) [Mass/Vol] 32.2 g/dL -36 [facility] Mean corpuscular hemoglobin concentration (MCHC) determination 32.2 g/dL -36 [facility] Mean platelet volume determi nationOrdered By: Moody Rodriguez on 10-04-2024 Platelet mean volume (Bld) [Entitic vol] 8.9 fL 6.2-12.0 [facility] Mean platelet volume determination 8.9 fl 6.2-12.0 [facility] Microscopic analysis of urin e for red blood cells (RBC)Ordered By: Moody Rodriguez on 10-04-2024 Urine RBC > 100 SEEN /hpf 0-5 [facility] Microscopic analysis of urine for red blood cells (RBC) > 100 SEEN /hpf 0-5 [facility] Monocyte percentageOrdered B y: Moody Rodriguez on 10-04-2024 Monocytes/100 WBC (Bld) 8.3 % 0-10 [facility] Monocyte percentage 8.3 % 0-10 [facility] Mucus LM Ql (Urine sed)Order ed By: Moody Rodriguez on 10-04-2024 Mucus Ql (Urine sed) 0 SEEN /hpf [facility] Neutrophil percentageOrdered By: Moody Rodriguez on 10-04-2024 Neutrophils/100 WBC (Bld) 74.0 % High 47-70 [facility] Neutrophil percentage 74.0 % High 47-70 [facility] Nitrite Test strip Ql (U)Ord ered By: Moody Rodriguez on 10-04-2024 Nitrite Ql (U) Negative Negative [facility] No Panel InformationOrdered By: Moody Rodriguez on 10-04-2024 23 U/L <38 [facility] Nucleated red blood cell per centageOrdered By: Moody Rodriguez on 10-04-2024 Nucleated RBC/100 WBC (Bld) [Ratio] 0 % 0-5 [facility] Nucleated red blood cell percentage 0 % 0-5 [facility] Partial Thromboplast Timeon 10-04-2024 aPTT Coag (Bld) [Time] 36.8 s High 24.1-36.2 [facility] Comment on above: Performed By: #### L 300.3900, L300.4310, L500.2500, L500.3400, L100.0100 ####[facility] [address] [place], [place], [id number] Platelet countOrdered By: Bhavin Rodriguez on 10-04-2024 Platelets (Bld) [#/Vol] 184 10*3/uL 150-450 [facility] Platelet count 184 K/mm3 150-450 [facility] Potassium (Unsp spec) [Mass/ Vol]Ordered By: Moody Rodriguez on 10-04-2024 Potassium [Moles/Vol] 4.3 mmol/L 3.3-5.1 [facility] Potassium measurement (mass/volume) 4.3 mmol/L 3.3-5.1 [facility] Potassium measurement (mass/ volume)Ordered By: Moody Rodriguez on 10-04-2024 Potassium (Unsp spec) [Mass/Vol] 4.3 mmol/L 3.3-5.1 [facility] Protein Test strip Ql (U)Ord ered By: Moody Rodriguez on 10-04-2024 Protein Ql (U) 500 mg/dl High Negative [facility] Urine protein assay by test strip, semi-quantitative 500 mg/dl High Negative [facility] Prothrombin Time w/INRon INR Coag (PPP) [Relative time] 1.3 {INR} Normal [facility] Comment on above: Performed By: #### L 300.3900, L300.4310, L500.2500, L500.3400, L100.0100 ####[facility] [address] [place], [address] PT Coag (PPP) [Time] 16.6 s High 11.7-14.9 [facility] Comment on above: Performed By: #### L 300.3900, L300.4310, L500.2500, L500.3400, L100.0100 ####[facility] [address] [place], [address] Prothrombin timeOrdered By: Moody Rodriguez on 10-04-2024 PT Coag (PPP) [Time] 16.6 s High 11.7-14.9 [facility] Prothrombin time 16.6 SECONDS High 11.7-14.[address] [facility] RBC Auto (Bld) [#/Vol]Ordere d By: Moody Rodriguez on 10-04-2024 RBC (Bld) [#/Vol] 3.63 10*6/uL Low 4.6-6.2 [facility] Automated blood erythrocyte count 3.63 M/mm3 Low 4.6-6.2 [facility] Serum creatinine measurement (mass/volume)Ordered By: Moody Rodriguez on 10-04-2024 Creatinine [Mass/Vol] 4.50 mg/dL High 0.70-1.20 [facility] Serum globulin measurementOr dered By: Moody Rodriguez on 10-04-2024 Globulin (S) [Mass/Vol] 3.6 g/dL 2.2-4.2 [facility] Serum globulin measurement 3.6 g/dL 2.2-4.2 [facility] Serum glucose measurement (m ass/volume)Ordered By: Moody Rodriguez on 10-04-2024 Glucose [Mass/Vol] 186 mg/dL High 70-[address] [facility] Serum or plasma alanine magana otransferase (ALT) measurementOrdered By: Moody Rodriguez on 10-04-2024 ALT [Catalytic activity/Vol] 10 U/L <47 [facility] Serum or plasma albumin joshua urement (mass/volume)Ordered By: Moody Rodriguez on 10-04-2024 Albumin [Mass/Vol] 3.4 g/dL 3.4-4.[address] [facility] Serum or plasma alkaline denise sphatase measurementOrdered By: Moody Rodriguez on 10-04-2024 ALP [Catalytic activity/Vol] 74 U/L 40-129 [facility] Serum or plasma calcium joshua urement (mass/volume)Ordered By: Moody Rodriguez on 10-04-2024 Calcium [Mass/Vol] 9.1 mg/dL 7.6-11.[address] [facility] Serum or plasma urea nitroge n measurement (mass/volume)Ordered By: Moody Rodriguez on 10-04-2024 Urea nitrogen [Mass/Vol] 58 mg/dL High 4-19 [facility] Sodium levelOrdered By: Hao Rodriguez on 10-04-2024 Sodium [Moles/Vol] 137 mmol/L 133-[address] [facility] Sodium level 137 mmol/L 133-145 [facility] Specific gravity (U) [Rel de nsity]Ordered By: Moody Rodriguez on 10-04-2024 Urine specific gravity measurement 1.010 1.002-1.030 [facility] Squamous epithelial cells de tection in urine sediment by light microscopyOrdered By: Moody Rodriguez on 10-04-2024 Epithelial cells.squamous LM Ql (Urine sed) 0 SEEN /hpf 0-5 [facility] Squamous epithelial cells detection in urine sediment by light microscopy 0 SEEN /hpf [facility] Total proteinOrdered By: Weston Rodriguez on 10-04-2024 Protein [Mass/Vol] 7.0 g/dL 5.9-8.[address] [facility] Total protein 7.0 g/dL 5.9-8.4 [facility] Urea nitrogen [Mass/Vol]Orde red By: Moody Rodriguez on 10-04-2024 Serum or plasma urea nitrogen measurement (mass/volume) 58 mg/dL High 4-19 [facility] Urinalysis, Completeon 10-04 WBC 5-10 SEEN Normal 0-5 [facility] Comment on above: Order Comment: CLEAN CATCH Performed By: #### L 400.0001 ####[facility] [address] [place], [place], [id number] RBC > 100 SEEN Normal [address] Comment on above: Order Comment: CLEAN CATCH Performed By: #### L 400.0001 ####[facility] [address] [place], [address] BACTERIA 0 SEEN Normal None Seen [facility] Comment on above: Order Comment: CLEAN CATCH Performed By: #### L 400.0001 ####[facility] [address] [place], [address] EPI,SQUAMOUS 0 SEEN Normal 0-5 [facility] Comment on above: Order Comment: CLEAN CATCH Performed By: #### L 400.0001 ####[facility] [address] [place], [address] Mucus Ql (Urine sed) 0 SEEN Normal [facility] Comment on above: Order Comment: CLEAN CATCH Performed By: #### L 400.0001 ####[facility] [address] [place], [address] Urine blood detectionOrdered By: Moody Rodriguez on 10-04-2024 Urine Occult Blood 250 /ul High Negative [facility] Urine blood detection 250 /ul High Negative [facility] Urine clarityOrdered By: Weston Rodriguez on 10-04-2024 Clarity (U) Sl. Cloudy Clear [facility] Urine color determinationOrd ered By: Moody Rodriguez on 10-04-2024 Color (U) Yellow Yellow [facility] Urine glucose detectionOrder ed By: Moody Rodriguez on 10-04-2024 Glucose Ql (U) 50 mg/dl High Normal [facility] Urine leukocyte esterase det ection by dipstickOrdered By: Moody Rodriguez on 10-04-2024 Leukocyte esterase Test strip Ql (U) 25 /ul High Negative [facility] Urine pHOrdered By: Moody giron on 10-04-2024 pH (U) 8.0 [pH] 5.0 - 8.0 [facility] Urine sediment bacteria coun t by microscopy (number/high power field)Ordered By: Moody Rodriguez on 10-04-2024 Bacteria LM.HPF (Urine sed) [#/Area] 0 /[HPF] None Seen [facility] Urine specific gravity measu rementOrdered By: Moody Rodriguez on 10-04-2024 Specific gravity (U) [Rel density] 1.010 1.002-1.030 [facility] Urine total bilirubin detect ion by test stripOrdered By: Moody Rodriguez on 10-04-2024 Urine total bilirubin detection by test strip Negative Negative [facility] Urine urobilinogen measureme ntOrdered By: Moody Rodriguez on 10-04-2024 Urobilinogen Ql (U) Normal mg/dl Normal [facility] Urobilinogen Ql (U)Ordered B y: Moody Rodirguez on 10-04-2024 Urine Urobilinogen Normal mg/dl Normal [facility] Urine urobilinogen measurement Normal mg/dl Normal [facility] White blood cell (WBC) count Ordered By: Moody Rodriguez on 10-04-2024 WBC (Bld) [#/Vol] 6.5 10*3/uL 4.4-11.[address] [facility] White blood cell (WBC) count 6.5 K/mm3 4.4-11.0 [facility] White blood cell countOrdere d By: Moody Rodriguez on 10-04-2024 Urine WBC 5-10 SEEN /hpf 0-5 [facility] White blood cell count 5-10 SEEN /hpf 0-5 [facility] White blood cell count 5-10 SEEN /hpf 0-5 [facility] aPTT Coag (PPP) [Time]Ordere d By: Moody Rodriguez on 10-04-2024 aPTT Coag (Bld) [Time] 36.8 s High 24.1-36.2 [facility] Activated partial thromboplastin time (aPTT) in platelet poor plasma by coagulation a 36.8 Seconds High 24.1-36.2 [facility] pH (U)Ordered By: Moody pires on 10-04-2024 Urine pH 8.0 5.0 - 8.0 [facility] ALP [Catalytic activity/Vol] Ordered By: Jeffrey Kuhn on 09-12-2024 Serum or plasma alkaline phosphatase measurement 80 U/L 45-117 [facility] ALT [Catalytic activity/Vol] Ordered By: Jeffrey Kuhn on 09-12-2024 Serum or plasma alanine aminotransferase (ALT) measurement 14 U/L Low 16-61 [facility] Absolute neutrophil countOrd ered By: Jeffrey Kuhn on 09-12-2024 Neutrophils (Bld) [#/Vol] 5.7 10*3/uL 2.0-7.7 [facility] Absolute neutrophil count 5.7 X10^3/uL 2.0-7.7 [facility] Albumin [Mass/Vol]Ordered By : Jeffrey Kuhn on 09-12-2024 Serum or plasma albumin measurement (mass/volume) 2.9 g/dL Low 3.2-5.0 [facility] Albumin to globulin ratioOrd ered By: Jeffrey Kuhn on 09-12-2024 Albumin/Globulin [Mass ratio] 0.6 {ratio} Low 0.9-2.4 [facility] Albumin to globulin ratio 0.6 RATIO Low 0.9-2.4 [facility] Basophil percentageOrdered B y: Jeffrey Kuhn on 09-12-2024 Basophils/100 WBC (Bld) 1.1 % High 0-1 [facility] Basophil percentage 1.1 % High 0-1 [facility] Bilirubin, totalOrdered By: Jeffrey Kuhn on 09-12-2024 Bilirubin [Mass/Vol] 1.00 mg/dL 0.20-1.00 [facility] Comment on above: For patients on eltr ombopag therapy, use of Dimension Nisula TBIL is not recommended. Bilirubin, total 1.00 mg/dL 0.20-1.00 [facility] Blood urea nitrogen (BUN)/cr eatinine ratioOrdered By: Jeffrey Kuhn on 09-12-2024 Urea nitrogen/Creatinine [Mass ratio] 9.8 mg/mg Low 10-20 [facility] Blood urea nitrogen (BUN)/creatinine ratio 9.8 RATIO Low 10-20 [facility] CBC W/Diff, Automatedon 08-26 Absolute Lymph 1.19 X10 3/uL Normal 0.83-4.51 [facility] Comment on above: Performed By: #### L 504.2610, L500.4050, L100.0100 ####[facility] [address] [place], [address] Absolute Neut 5.7 X10 3/uL Normal 2.0-7.7 [facility] Comment on above: Performed By: #### L 504.2610, L500.4050, L100.0100 ####[facility] [address] [place], [address] Basophils/100 WBC (Bld) 1.1 % High 0-1 [facility] Comment on above: Performed By: #### L 504.2610, L500.4050, L100.0100 ####[facility] [address] [place], [address] Eosinophils/100 WBC (Bld) 1.6 % Normal 0-5 [facility] Comment on above: Performed By: #### L 504.2610, L500.4050, L100.0100 ####[facility] [address] [place], [address] Erythrocyte distribution width (RBC) [Ratio] 14.5 % Normal 11.6-14.6 [facility] Comment on above: Performed By: #### L 504.2610, L500.4050, L100.0100 ####[facility] [address] [place], [address] Hematocrit (Bld) [Volume fraction] 36.2 % Low 40-54 [facility] Comment on above: Performed By: #### L 504.2610, L500.4050, L100.0100 ####[facility] [address] [place], [address] Hemoglobin (Bld) [Mass/Vol] 11.5 g/dL Low 13.0-16.5 [facility] Comment on above: Performed By: #### L 504.2610, L500.4050, L100.0100 ####[facility] [address] [place], [address] IG% 0.300 Normal 0.0-0.9 [facility] Comment on above: Result Comment: IG% - Immature Granulocytes (promyelocytes, myelocytes andmetamyelocytes) > 1% indicates that a LEFT SHIFT is Present. Performed By: #### L 504.2610, L500.4050, L100.0100 ####[facility] [address] [place], [address] Lymphocytes/100 WBC (Bld) 15.0 % Low 19-41 [facility] Comment on above: Performed By: #### L 504.2610, L500.4050, L100.0100 ####[facility] [address] [place], [address] MCH (RBC) [Entitic mass] 29.9 pg Normal 27.0-32.0 [facility] Comment on above: Performed By: #### L 504.2610, L500.4050, L100.0100 ####[facility] [address] [place], [address] MCHC (RBC) [Mass/Vol] 31.8 g/dL Low 32-36 [facility] Comment on above: Performed By: #### L 504.2610, L500.4050, L100.0100 ####[facility] [address] [place], [address] MCV (RBC) [Entitic vol] 94.0 fL Normal 80-94 [facility] Comment on above: Performed By: #### L 504.2610, L500.4050, L100.0100 ####[facility] [address] [place], [address] Monocytes/100 WBC (Bld) 9.7 % Normal 0-10 [facility] Comment on above: Performed By: #### L 504.2610, L500.4050, L100.0100 ####[facility] [address] [place], [address] Neutrophils/100 WBC (Bld) 72.3 % High 47-70 [facility] Comment on above: Performed By: #### L 504.2610, L500.4050, L100.0100 ####[facility] [address] [place], [address] Nucleated RBC (Bld) [#/Vol] 0 10*3/uL Normal 0-5 [facility] Comment on above: Performed By: #### L 504.2610, L500.4050, L100.0100 ####[facility] [address] [place], [address] Platelet mean volume (Bld) [Entitic vol] 8.6 fL Normal 6.2-12.0 [facility] Comment on above: Performed By: #### L 504.2610, L500.4050, L100.0100 ####[facility] [address] [place], [id number] Platelets (Bld) [#/Vol] 213 10*3/uL Normal 150-450 [facility] Comment on above: Performed By: #### L 504.2610, L500.4050, L100.0100 ####[facility] [address] [place], [id number] RBC (Bld) [#/Vol] 3.85 10*6/uL Low 4.6-6.2 [facility] Comment on above: Performed By: #### L 504.2610, L500.4050, L100.0100 ####[facility] [address] [place], [id number] RDW SD 49.9 fl High 35.1-43.9 [facility] Comment on above: Performed By: #### L 504.2610, L500.4050, L100.0100 ####[facility] [address] [place], [id number] WBC (Bld) [#/Vol] 7.9 10*3/uL Normal 4.4-11.[address] [facility] Comment on above: Performed By: #### L 504.2610, L500.4050, L100.0100 ####[facility] [address] [place], [id number] Calcium [Mass/Vol]Ordered By : Jeffrey Kuhn on 09-12-2024 Serum or plasma calcium measurement (mass/volume) 9.3 mg/dL 8.5-10.1 [facility] Carbon dioxide measurementOr dered By: Jeffrey Kuhn on 09-12-2024 CO2 [Moles/Vol] 29.0 mmol/L 21.0-32.0 [facility] Carbon dioxide measurement 29.0 mmol/L 21.0-32.0 [facility] Chloride measurementOrdered By: Jeffrey Kuhn on 09-12-2024 Chloride [Moles/Vol] 96 mmol/L Low 98-107 [facility] Chloride measurement 96 mmol/L Low 98-107 [facility] Comprehensive Metabolic Prof ilon 09-12-2024 Albumin [Mass/Vol] 2.9 g/dL Low 3.2-5.[address] [facility] Comment on above: Performed By: #### L 504.2610, L500.4050, L100.0100 ####[facility] [address] [place], [address] Albumin/Globulin [Mass ratio] 0.6 {ratio} Low 0.9-2.4 [facility] Comment on above: Performed By: #### L 504.2610, L500.4050, L100.0100 ####[facility] [address] [place], [address] ALK P 80 U/L Normal 45-117 [facility] Comment on above: Performed By: #### L 504.2610, L500.4050, L100.0100 ####[facility] [address] [place], [address] ALT [Catalytic activity/Vol] 14 U/L Low 16-61 [facility] Comment on above: Performed By: #### L 504.2610, L500.4050, L100.0100 ####[facility] [address] [place], [address] AST [Catalytic activity/Vol] 19 U/L Normal 15-37 [facility] Comment on above: Performed By: #### L 504.2610, L500.4050, L100.0100 ####[facility] [address] [place], [address] Bilirubin [Mass/Vol] 1.00 mg/dL Normal 0.20-1.00 [facility] Comment on above: Result Comment: For patients on eltrombopag therapy, use of Dimension Nisula TBIL is not recommended. Performed By: #### L 504.2610, L500.4050, L100.0100 ####[facility] [address] [place], [address] BUN/CRE 9.8 RATIO Low 10-20 [facility] Comment on above: Performed By: #### L 504.2610, L500.4050, L100.0100 ####[facility] [address] [place], [address] CA,Total 9.3 mg/dL Normal 8.5-10.1 [facility] Comment on above: Performed By: #### L 504.2610, L500.4050, L100.0100 ####[facility] [address] [place], [address] Chloride [Moles/Vol] 96 mmol/L Low 98-107 [facility] Comment on above: Performed By: #### L 504.2610, L500.4050, L100.0100 ####[facility] [address] [place], [address] CO2 [Moles/Vol] 29.0 mmol/L Normal 21.0-32.0 [facility] Comment on above: Performed By: #### L 504.2610, L500.4050, L100.0100 ####[facility] [address] [place], [address] Creatinine [Mass/Vol] 4.50 mg/dL High 0.70-1.30 [facility] Comment on above: Result Comment: The validity of the calculated GFR GFRAA in patients over70 years has not been determined. Clinical correlation isessential. Performed By: #### L 504.2610, L500.4050, L100.0100 ####[facility] [address] [place], [address] ECRCL 19.19 ml/min Normal [facility] Comment on above: Performed By: #### L 504.2610, L500.4050, L100.0100 ####[facility] [address] [place], [address] EST GFR - AA 17 mL/min Low >60 [facility] Comment on above: Result Comment: Afri can Eritrean GFR Calc Performed By: #### L 504.2610, L500.4050, L100.0100 ####[facility] [address] [place], [address] GAP 11 Normal 5-15 [facility] Comment on above: Performed By: #### L 504.2610, L500.4050, L100.0100 ####[facility] [address] [place], [address] GFR/1.73 sq M.predicted among non-blacks MDRD (S/P/Bld) [Vol rate/Area] 14 mL/min/{1.73_m2} Low >60 [facility] Comment on above: Result Comment: Non- GFR Calc Performed By: #### L 504.2610, L500.4050, L100.0100 ####[facility] [address] [place], [address] Globulin (S) [Mass/Vol] 4.7 g/dL High 2.2-4.2 [facility] Comment on above: Performed By: #### L 504.2610, L500.4050, L100.0100 ####[facility] [address] [place], [address] Glucose [Mass/Vol] 159 mg/dL High 74-[address] [facility] Comment on above: Result Comment: Fast ing Glucose result greater than or equal to 126 mg/dLsuggests DIABETES MELLITUS per A.D.A. criteria. Performed By: #### L 504.2610, L500.4050, L100.0100 ####[facility] [address] [place], [address] Potassium [Moles/Vol] 4.2 mmol/L Normal 3.5-5.1 [facility] Comment on above: Performed By: #### L 504.2610, L500.4050, L100.0100 ####[facility] [address] [place], [address] Sodium [Moles/Vol] 136 mmol/L Normal 136-[address] [facility] Comment on above: Performed By: #### L 504.2610, L500.4050, L100.0100 ####[facility] [address] [place], [address] T PROT 7.6 g/dL Normal 6.4-8.2 [facility] Comment on above: Performed By: #### L 504.2610, L500.4050, L100.0100 ####[facility] [address] [place], [address] Urea nitrogen [Mass/Vol] 44 mg/dL High 7-18 [facility] Comment on above: Performed By: #### L 504.2610, L500.4050, L100.0100 ####[facility] [address] [place], [address] Creatinine [Mass/Vol]Ordered By: Jeffrey Kuhn on 09-12-2024 Serum or plasma creatinine measurement (mass/volume) 4.50 mg/dL High 0.70-1.30 [facility] Eosinophil percentageOrdered By: Jeffrey Kuhn on 09-12-2024 Eosinophils/100 WBC (Bld) 1.6 % 0-5 [facility] Eosinophil percentage 1.6 % 0-5 [facility] Erythrocyte distribution wid th (RBC) [Ratio]Ordered By: Jeffrey Kuhn on 09-12-2024 Erythrocyte distribution width ratio 14.5 % 11.6-14.6 [facility] Erythrocyte distribution width standard deviation 49.9 fl High 35.1-43.9 [facility] Erythrocyte distribution wid th ratioOrdered By: Jeffrey Kuhn on 09-12-2024 Erythrocyte distribution width (RBC) [Ratio] 14.5 % 11.6-14.6 [facility] Erythrocyte distribution wid th standard deviationOrdered By: Jeffrey Kuhn on 09-12-2024 Erythrocyte distribution width (RBC) [Entitic vol] 49.9 fL High 35.1-43.9 [facility] Estimated glomerular filtrat ion rate (GFR) AmericanOrdered By: Jeffrey Kuhn on 09-12-2024 Estimated GFR (MDRD) Amer 17 mL/min Low >60 [facility] Comment on above: GFR Calc Estimated glomerular filtration rate (GFR) 17 mL/min Low >60 [facility] Estimation of creatinine donavan aranceOrdered By: Jeffrey Kuhn on 09-12-2024 Estimated Creatinine Clearance Calc 19.19 ml/min [facility] Estimation of creatinine clearance 19.19 ml/min [facility] Glomerular filtration rate ( GFR) estimationOrdered By: Jeffrey Kuhn on 09-12-2024 Estimated GFR (MDRD) Non-Af Amer 14 mL/min Low >60 [facility] Comment on above: Non- GFR Calc Glomerular filtration rate (GFR) estimation 14 mL/min Low >60 [facility] Glucose measurementOrdered B y: Jeffrey Kuhn on 09-12-2024 Glucose [Mass/Vol] 159 mg/dL High 74-[address] [facility] Comment on above: Fasting Glucose resu lt greater than or equal to 126 mg/dL suggests DIABETES MELLITUS per A.D.A. criteria. Glucose measurement 159 mg/dL High 74-106 [facility] Hematocrit Auto (Bld) [Volum e fraction]Ordered By: Jeffrey Kuhn on 09-12-2024 Hematocrit (Bld) [Volume fraction] 36.2 % Low 40-54 [facility] Automated blood hematocrit (percentage) 36.2 % Low 40-54 [facility] Hemoglobin measurementOrdere d By: Jeffrey Kuhn on 09-12-2024 Hemoglobin (Bld) [Mass/Vol] 11.5 g/dL Low 13.0-16.5 [facility] Hemoglobin measurement 11.5 g/dL Low 13.0-16.5 [facility] Immature granulocytes/100 WB C Auto (Bld)Ordered By: Jeffrey Kuhn on 09-12-2024 Immature granulocytes/100 WBC (Bld) 0.300 % 0.0-0.9 [facility] Comment on above: IG% - Immature Granu locytes (promyelocytes, myelocytes and metamyelocytes) > 1% indicates that a LEFT SHIFT is Present. Automated immature granulocyte percentage 0.300 % 0.0-0.9 [facility] LDHon 09-12-2024 LDH 187 U/L Normal 87-241 [facility] Comment on above: Order Comment: 1 Performed By: #### L 504.2610, L500.4050, L100.0100 ####[facility] [address] [place], [address] Laboratory - Chemistry and C hemistry - challengeOrdered By: Jeffrey Kuhn on 09-12-2024 AST [Catalytic activity/Vol] 19 U/L 15-37 [facility] Lactate dehydrogenase (LDH) measurementOrdered By: Jeffrey Kuhn on 09-12-2024 LDH [Catalytic activity/Vol] 187 U/L 87-241 [facility] Lactate dehydrogenase (LDH) measurement 187 U/L 87-241 [facility] Lymphocytes Auto (Unsp spec) [#/Vol]Ordered By: Jeffrey Kuhn on 09-12-2024 Lymphocytes (Bld) [#/Vol] 1.19 10*3/uL 0.83-4.51 [facility] Absolute lymphocyte count 1.19 X10^3/uL 0.83-4.51 [facility] Lymphocytes/100 WBC Auto (Un sp spec)Ordered By: Jeffrey Kuhn on 09-12-2024 Lymphocytes/100 WBC (Bld) 15.0 % Low 41 [facility] Automated lymphocyte count as percentage of total leukocytes 15.0 % Low [facility] MCV (RBC) [Entitic vol]Order ed By: Jeffrey Kuhn on 09-12-2024 MCV (mean corpuscular volume) determination 94.0 fL 80-94 [facility] MCV (mean corpuscular volume ) determinationOrdered By: Jeffrey Kuhn on 09-12-2024 MCV (RBC) [Entitic vol] 94.0 fL 80-94 [facility] Mean corpuscular hemoglobin (MCH) determinationOrdered By: Jeffrey Kuhn on 09-12-2024 MCH (RBC) [Entitic mass] 29.9 pg 27.0-32.0 [facility] Mean corpuscular hemoglobin (MCH) determination 29.9 pg 27.0-32.0 [facility] Mean corpuscular hemoglobin concentration (MCHC) determinationOrdered By: Jeffrey Kuhn on 09-12-2024 MCHC (RBC) [Mass/Vol] 31.8 g/dL Low 32-36 [facility] Mean corpuscular hemoglobin concentration (MCHC) determination 31.8 g/dL Low 32-36 [facility] Mean platelet volume determi nationOrdered By: Jeffrey Kuhn on 09-12-2024 Platelet mean volume (Bld) [Entitic vol] 8.6 fL 6.2-12.0 [facility] Mean platelet volume determination 8.6 fl 6.2-12.0 [facility] Monocyte percentageOrdered B y: Jeffrey Kuhn on 09-12-2024 Monocytes/100 WBC (Bld) 9.7 % 0-10 [facility] Monocyte percentage 9.7 % 0-10 [facility] Neutrophil percentageOrdered By: Jeffrey Kuhn on 09-12-2024 Neutrophils/100 WBC (Bld) 72.3 % High 47-70 [facility] Neutrophil percentage 72.3 % High 47-70 [facility] No Panel InformationOrdered By: Jeffrey Kuhn on 09-12-2024 19 U/L 15-37 [facility] Nucleated red blood cell per centageOrdered By: Jeffrey Kuhn on 09-12-2024 Nucleated RBC/100 WBC (Bld) [Ratio] 0 % 0-5 [facility] Nucleated red blood cell percentage 0 % 0-5 [facility] Oncology Visit Reporton 08-26 Oncology Visit Report Normal [facility] Platelet countOrdered By: Shelby Kuhn on 09-12-2024 Platelets (Bld) [#/Vol] 213 10*3/uL 150-450 [facility] Platelet count 213 K/mm3 150-450 [facility] Potassium measurementOrdered By: Jeffrey Kuhn on 09-12-2024 Potassium [Moles/Vol] 4.2 mmol/L 3.5-5.1 [facility] Potassium measurement 4.2 mmol/L 3.5-5.1 [facility] RBC Auto (Bld) [#/Vol]Ordere d By: Jeffrey Kuhn on 09-12-2024 RBC (Bld) [#/Vol] 3.85 10*6/uL Low 4.6-6.2 [facility] Automated blood erythrocyte count 3.85 M/mm3 Low 4.6-6.2 [facility] Serum anion gap measurementO rdered By: Jeffrey Kuhn on 09-12-2024 Anion gap [Moles/Vol] 11 mmol/L 5-15 [facility] Serum anion gap measurement 11 5-15 [facility] Serum globulin measurementOr dered By: Jeffrey Kuhn on 09-12-2024 Globulin (S) [Mass/Vol] 4.7 g/dL High 2.2-4.2 [facility] Serum globulin measurement 4.7 g/dL High 2.2-4.2 [facility] Serum or plasma alanine magana otransferase (ALT) measurementOrdered By: Jeffrey Kuhn on 09-12-2024 ALT [Catalytic activity/Vol] 14 U/L Low 16-61 [facility] Serum or plasma albumin joshua urement (mass/volume)Ordered By: Jeffrey Kuhn on 09-12-2024 Albumin [Mass/Vol] 2.9 g/dL Low 3.2-5.[address] [facility] Serum or plasma alkaline denise sphatase measurementOrdered By: Jeffrey Kuhn on 09-12-2024 ALP [Catalytic activity/Vol] 80 U/L 45-117 [facility] Serum or plasma calcium joshua urement (mass/volume)Ordered By: Jeffrey Kuhn on 09-12-2024 Calcium [Mass/Vol] 9.3 mg/dL 8.5-10.[address] [facility] Serum or plasma creatinine m easurement (mass/volume)Ordered By: Jeffrey Kuhn on 09-12-2024 Creatinine [Mass/Vol] 4.50 mg/dL High 0.70-1.30 [facility] Comment on above: The validity of the calculated GFR & GFRAA in patients over 70 years has not been determined. Clinical correlation is essential. Serum or plasma urea nitroge n measurement (mass/volume)Ordered By: Jeffrey Kuhn on 09-12-2024 Urea nitrogen [Mass/Vol] 44 mg/dL High 02-09 [facility] Sodium levelOrdered By: Dariusz Kuhn on 09-12-2024 Sodium [Moles/Vol] 136 mmol/L 136-[address] [facility] Sodium level 136 mmol/L 136-145 [facility] Total proteinOrdered By: Raheem Kuhn on 09-12-2024 Protein [Mass/Vol] 7.6 g/dL 6.4-8.[address] [facility] Total protein 7.6 g/dL 6.4-8.2 [facility] Urea nitrogen [Mass/Vol]Orde red By: Jeffrey Kuhn on 09-12-2024 Serum or plasma urea nitrogen measurement (mass/volume) 44 mg/dL High 02-09 [facility] White blood cell (WBC) count Ordered By: Jeffrey Kuhn on 09-12-2024 WBC (Bld) [#/Vol] 7.9 10*3/uL 4.4-11.[address] [facility] White blood cell (WBC) count 7.9 K/mm3 4.4-11.0 [facility] Cardiology Visit Reporton Cardiology Visit Report Normal [facility] Oncology Visit Reporton 07-27 Oncology Visit Report Normal [facility] ONC Echo, Limited Studyon ONC Echo, Limited Study Normal [facility] CBC W/Diff, Automatedon 06-25 Absolute Lymph 1.05 X10 3/uL Normal 0.83-4.51 [facility] Comment on above: Performed By: #### L 100.0100, L504.2610, L500.4050 ####[facility] [address] [place], [address] Absolute Neut 4.5 X10 3/uL Normal 2.0-7.7 [facility] Comment on above: Performed By: #### L 100.0100, L504.2610, L500.4050 ####[facility] [address] [place], [address] Basophils/100 WBC (Bld) 0.8 % Normal 0-1 [facility] Comment on above: Performed By: #### L 100.0100, L504.2610, L500.4050 ####[facility] [address] [place], [address] Eosinophils/100 WBC (Bld) 1.6 % Normal 0-5 [facility] Comment on above: Performed By: #### L 100.0100, L504.2610, L500.4050 ####[facility] [address] [place], [address] Erythrocyte distribution width (RBC) [Ratio] 13.7 % Normal 11.6-14.6 [facility] Comment on above: Performed By: #### L 100.0100, L504.2610, L500.4050 ####[facility] [address] [place], [address] Hematocrit (Bld) [Volume fraction] 36.2 % Low 40-54 [facility] Comment on above: Performed By: #### L 100.0100, L504.2610, L500.4050 ####[facility] [address] [place], [address] Hemoglobin (Bld) [Mass/Vol] 11.6 g/dL Low 13.0-16.5 [facility] Comment on above: Performed By: #### L 100.0100, L504.2610, L500.4050 ####[facility] [address] [place], [address] IG% 0.300 Normal 0.0-0.9 [facility] Comment on above: Result Comment: IG% - Immature Granulocytes (promyelocytes, myelocytes andmetamyelocytes) > 1% indicates that a LEFT SHIFT is Present. Performed By: #### L 100.0100, L504.2610, L500.4050 ####[facility] [address] [place], [address] Lymphocytes/100 WBC (Bld) 16.9 % Low 19-41 [facility] Comment on above: Performed By: #### L 100.0100, L504.2610, L500.4050 ####[facility] [address] [place], [address] MCH (RBC) [Entitic mass] 30.6 pg Normal 27.0-32.0 [facility] Comment on above: Performed By: #### L 100.0100, L504.2610, L500.4050 ####[facility] [address] [place], [address] MCHC (RBC) [Mass/Vol] 32.0 g/dL Normal 32-36 [facility] Comment on above: Performed By: #### L 100.0100, L504.2610, L500.4050 ####[facility] [address] [place], [address] MCV (RBC) [Entitic vol] 95.5 fL High 80-94 [facility] Comment on above: Performed By: #### L 100.0100, L504.2610, L500.4050 ####[facility] [address] [place], [address] Monocytes/100 WBC (Bld) 8.4 % Normal 0-10 [facility] Comment on above: Performed By: #### L 100.0100, L504.2610, L500.4050 ####[facility] [address] [place], [address] Neutrophils/100 WBC (Bld) 72.0 % High 47-70 [facility] Comment on above: Performed By: #### L 100.0100, L504.2610, L500.4050 ####[facility] [address] [place], [address] Nucleated RBC (Bld) [#/Vol] 0 10*3/uL Normal 0-5 [facility] Comment on above: Performed By: #### L 100.0100, L504.2610, L500.4050 ####[facility] [address] [place], [address] Platelet mean volume (Bld) [Entitic vol] 9.1 fL Normal 6.2-12.0 [facility] Comment on above: Performed By: #### L 100.0100, L504.2610, L500.4050 ####[facility] [address] [place], [address] Platelets (Bld) [#/Vol] 219 10*3/uL Normal 150-450 [facility] Comment on above: Performed By: #### L 100.0100, L504.2610, L500.4050 ####[facility] [address] [place], [address] RBC (Bld) [#/Vol] 3.79 10*6/uL Low 4.6-6.2 [facility] Comment on above: Performed By: #### L 100.0100, L504.2610, L500.4050 ####[facility] [address] [place], [address] RDW SD 48.0 fl High 35.1-43.9 [facility] Comment on above: Performed By: #### L 100.0100, L504.2610, L500.4050 ####[facility] [address] [place], [address] WBC (Bld) [#/Vol] 6.2 10*3/uL Normal 4.4-11.[address] [facility] Comment on above: Performed By: #### L 100.0100, L504.2610, L500.4050 ####[facility] [address] [place], [address] Comprehensive Metabolic Prof ilon 07-13-2024 Albumin [Mass/Vol] 2.5 g/dL Low 3.2-5.[address] [facility] Comment on above: Order Comment: 1 Performed By: #### L 100.0100, L504.2610, L500.4050 ####[facility] [address] [place], [address] Albumin/Globulin [Mass ratio] 0.5 {ratio} Low 0.9-2.4 [facility] Comment on above: Order Comment: 1 Performed By: #### L 100.0100, L504.2610, L500.4050 ####[facility] [address] [place], [address] ALK P 88 U/L Normal 45-117 [facility] Comment on above: Order Comment: 1 Performed By: #### L 100.0100, L504.2610, L500.4050 ####[facility] [address] [place], [address] ALT [Catalytic activity/Vol] 12 U/L Low 16-61 [facility] Comment on above: Order Comment: 1 Performed By: #### L 100.0100, L504.2610, L500.4050 ####[facility] [address] [place], [address] AST [Catalytic activity/Vol] 17 U/L Normal 15-37 [facility] Comment on above: Order Comment: 1 Performed By: #### L 100.0100, L504.2610, L500.4050 ####[facility] [address] [place], [address] Bilirubin [Mass/Vol] 0.80 mg/dL Normal 0.20-1.00 [facility] Comment on above: Order Comment: 1 Result Comment: For patients on eltrombopag therapy, use of Dimension Nisula TBIL is not recommended. Performed By: #### L 100.0100, L504.2610, L500.4050 ####[facility] [address] [place], [address] BUN/CRE 10.0 RATIO Normal 10-20 [facility] Comment on above: Order Comment: 1 Performed By: #### L 100.0100, L504.2610, L500.4050 ####[facility] [address] [place], [address] CA,Total 9.4 mg/dL Normal 8.5-10.1 [facility] Comment on above: Order Comment: 1 Performed By: #### L 100.0100, L504.2610, L500.4050 ####[facility] [address] [place], [address] Chloride [Moles/Vol] 100 mmol/L Normal 98-107 [facility] Comment on above: Order Comment: 1 Performed By: #### L 100.0100, L504.2610, L500.4050 ####[facility] [address] [place], [address] CO2 [Moles/Vol] 33.0 mmol/L High 21.0-32.0 [facility] Comment on above: Order Comment: 1 Performed By: #### L 100.0100, L504.2610, L500.4050 ####[facility] [address] [place], [address] Creatinine [Mass/Vol] 3.19 mg/dL High 0.70-1.30 [facility] Comment on above: Order Comment: 1 Result Comment: The validity of the calculated GFR GFRAA in patients over70 years has not been determined. Clinical correlation isessential. Performed By: #### L 100.0100, L504.2610, L500.4050 ####[facility] [address] [place], [address] ECRCL 27.09 ml/min Normal [facility] Comment on above: Order Comment: 1 Performed By: #### L 100.0100, L504.2610, L500.4050 ####[facility] [address] [place], [address] EST GFR - AA 25 mL/min Low >60 [facility] Comment on above: Order Comment: 1 Result Comment: Afri can Eritrean GFR Calc Performed By: #### L 100.0100, L504.2610, L500.4050 ####[facility] [address] [place], [address] GAP 5 Normal 5-15 [facility] Comment on above: Order Comment: 1 Performed By: #### L 100.0100, L504.2610, L500.4050 ####[facility] [address] [place], [address] GFR/1.73 sq M.predicted among non-blacks MDRD (S/P/Bld) [Vol rate/Area] 21 mL/min/{1.73_m2} Low >60 [facility] Comment on above: Order Comment: 1 Result Comment: Non- GFR Calc Performed By: #### L 100.0100, L504.2610, L500.4050 ####[facility] [address] [place], [address] Globulin (S) [Mass/Vol] 4.6 g/dL High 2.2-4.2 [facility] Comment on above: Order Comment: 1 Performed By: #### L 100.0100, L504.2610, L500.4050 ####[facility] [address] [place], [address] Glucose [Mass/Vol] 125 mg/dL High 74-[address] [facility] Comment on above: Order Comment: 1 Result Comment: Fast ing Glucose result from 100 to 125 mg/dLsuggests IMPAIRED HOMEOSTASIS per A.D.A. criteria. Performed By: #### L 100.0100, L504.2610, L500.4050 ####[facility] [address] [place], [address] Potassium [Moles/Vol] 4.2 mmol/L Normal 3.5-5.1 [facility] Comment on above: Order Comment: 1 Performed By: #### L 100.0100, L504.2610, L500.4050 ####[facility] [address] [place], [address] Sodium [Moles/Vol] 138 mmol/L Normal 136-[address] [facility] Comment on above: Order Comment: 1 Performed By: #### L 100.0100, L504.2610, L500.4050 ####[facility] [address] [place], [address] T PROT 7.1 g/dL Normal 6.4-8.2 [facility] Comment on above: Order Comment: 1 Performed By: #### L 100.0100, L504.2610, L500.4050 ####[facility] [address] [place], [address] Urea nitrogen [Mass/Vol] 32 mg/dL High 7-18 [facility] Comment on above: Order Comment: 1 Performed By: #### L 100.0100, L504.2610, L500.4050 ####[facility] [address] [place], [address] LDHon 07-13-2024 LDH 190 U/L Normal 87-241 [facility] Comment on above: Order Comment: 1 Performed By: #### L 100.0100, L504.2610, L500.4050 ####[facility] [address] [place], [address] Oncology Visit Reporton 06-25 Oncology Visit Report Normal [facility] ONC Echo, Limited Studyon ONC Echo, Limited Study Normal [facility] [facility] CBC W/Diff, Automatedon 06-25 Absolute Lymph 1.44 X10 3/uL Normal 0.83-4.51 [facility] Comment on above: Performed By: #### L 506.0400, L504.2610, L500.4050, L501.9520, L100.0100 ####[facility] [address] [place], [address] Absolute Neut 6.4 X10 3/uL Normal 2.0-7.7 [facility] Comment on above: Performed By: #### L 506.0400, L504.2610, L500.4050, L501.9520, L100.0100 ####[facility] [address] [place], [address] Basophils/100 WBC (Bld) 0.7 % Normal 0-1 [facility] Comment on above: Performed By: #### L 506.0400, L504.2610, L500.4050, L501.9520, L100.0100 ####[facility] [address] [place], [address] Eosinophils/100 WBC (Bld) 1.1 % Normal 0-5 [facility] Comment on above: Performed By: #### L 506.0400, L504.2610, L500.4050, L501.9520, L100.0100 ####[facility] [address] [place], [address] Erythrocyte distribution width (RBC) [Ratio] 13.3 % Normal 11.6-14.6 [facility] Comment on above: Performed By: #### L 506.0400, L504.2610, L500.4050, L501.9520, L100.0100 ####[facility] [address] [place], [address] Hematocrit (Bld) [Volume fraction] 38.0 % Low 40-54 [facility] Comment on above: Performed By: #### L 506.0400, L504.2610, L500.4050, L501.9520, L100.0100 ####[facility] [address] [place], [address] Hemoglobin (Bld) [Mass/Vol] 12.7 g/dL Low 13.0-16.5 [facility] Comment on above: Performed By: #### L 506.0400, L504.2610, L500.4050, L501.9520, L100.0100 ####[facility] [address] [place], [address] IG% 0.300 Normal 0.0-0.9 [facility] Comment on above: Result Comment: IG% - Immature Granulocytes (promyelocytes, myelocytes andmetamyelocytes) > 1% indicates that a LEFT SHIFT is Present. Performed By: #### L 506.0400, L504.2610, L500.4050, L501.9520, L100.0100 ####[facility] [address] [place], [address] Lymphocytes/100 WBC (Bld) 16.4 % Low 19-41 [facility] Comment on above: Performed By: #### L 506.0400, L504.2610, L500.4050, L501.9520, L100.0100 ####[facility] [address] [place], [address] MCH (RBC) [Entitic mass] 30.8 pg Normal 27.0-32.0 [facility] Comment on above: Performed By: #### L 506.0400, L504.2610, L500.4050, L501.9520, L100.0100 ####[facility] [address] [place], [address] MCHC (RBC) [Mass/Vol] 33.4 g/dL Normal 32-36 [facility] Comment on above: Performed By: #### L 506.0400, L504.2610, L500.4050, L501.9520, L100.0100 ####[facility] [address] [place], [address] MCV (RBC) [Entitic vol] 92.2 fL Normal 80-94 [facility] Comment on above: Performed By: #### L 506.0400, L504.2610, L500.4050, L501.9520, L100.0100 ####[facility] [address] [place], [address] Monocytes/100 WBC (Bld) 8.9 % Normal 0-10 [facility] Comment on above: Performed By: #### L 506.0400, L504.2610, L500.4050, L501.9520, L100.0100 ####[facility] [address] [place], [address] Neutrophils/100 WBC (Bld) 72.6 % High 47-70 [facility] Comment on above: Performed By: #### L 506.0400, L504.2610, L500.4050, L501.9520, L100.0100 ####[facility] [address] [place], [address] Nucleated RBC (Bld) [#/Vol] 0 10*3/uL Normal 0-5 [facility] Comment on above: Performed By: #### L 506.0400, L504.2610, L500.4050, L501.9520, L100.0100 ####[facility] [address] [place], [address] Platelet mean volume (Bld) [Entitic vol] 9.4 fL Normal 6.2-12.0 [facility] Comment on above: Performed By: #### L 506.0400, L504.2610, L500.4050, L501.9520, L100.0100 ####[facility] [address] [place], [address] Platelets (Bld) [#/Vol] 268 10*3/uL Normal 150-450 [facility] Comment on above: Performed By: #### L 506.0400, L504.2610, L500.4050, L501.9520, L100.0100 ####[facility] [address] [place], [address] RBC (Bld) [#/Vol] 4.12 10*6/uL Low 4.6-6.2 [facility] Comment on above: Performed By: #### L 506.0400, L504.2610, L500.4050, L501.9520, L100.0100 ####[facility] [address] [place], [address] RDW SD 45.1 fl High 35.1-43.9 [facility] Comment on above: Performed By: #### L 506.0400, L504.2610, L500.4050, L501.9520, L100.0100 ####[facility] [address] [place], [address] WBC (Bld) [#/Vol] 8.8 10*3/uL Normal 4.4-11.[address] [facility] Comment on above: Performed By: #### L 506.0400, L504.2610, L500.4050, L501.9520, L100.0100 ####[facility] [address] [place], [address] Comprehensive Metabolic Prof ilon 07-04-2024 Albumin [Mass/Vol] 2.6 g/dL Low 3.2-5.[address] [facility] Comment on above: Order Comment: 1 Performed By: #### L 506.0400, L504.2610, L500.4050, L501.9520, L100.0100 ####[facility] [address] [place], [address] Albumin/Globulin [Mass ratio] 0.6 {ratio} Low 0.9-2.4 [facility] Comment on above: Order Comment: 1 Performed By: #### L 506.0400, L504.2610, L500.4050, L501.9520, L100.0100 ####[facility] [address] [place], [address] ALK P 93 U/L Normal 45-117 [facility] Comment on above: Order Comment: 1 Performed By: #### L 506.0400, L504.2610, L500.4050, L501.9520, L100.0100 ####[facility] [address] [place], [address] ALT [Catalytic activity/Vol] 18 U/L Normal 16-61 [facility] Comment on above: Order Comment: 1 Performed By: #### L 506.0400, L504.2610, L500.4050, L501.9520, L100.0100 ####[facility] [address] [place], [address] AST [Catalytic activity/Vol] 19 U/L Normal 15-37 [facility] Comment on above: Order Comment: 1 Performed By: #### L 506.0400, L504.2610, L500.4050, L501.9520, L100.0100 ####[facility] [address] [place], [address] Bilirubin [Mass/Vol] 1.00 mg/dL Normal 0.20-1.00 [facility] Comment on above: Order Comment: 1 Result Comment: For patients on eltrombopag therapy, use of Dimension Nisula TBIL is not recommended. Performed By: #### L 506.0400, L504.2610, L500.4050, L501.9520, L100.0100 ####[facility] [address] [place], [address] BUN/CRE 11.2 RATIO Normal 10-20 [facility] Comment on above: Order Comment: 1 Performed By: #### L 506.0400, L504.2610, L500.4050, L501.9520, L100.0100 ####[facility] [address] [place], [address] CA,Total 9.2 mg/dL Normal 8.5-10.1 [facility] Comment on above: Order Comment: 1 Performed By: #### L 506.0400, L504.2610, L500.4050, L501.9520, L100.0100 ####[facility] [address] [place], [address] Chloride [Moles/Vol] 100 mmol/L Normal 98-107 [facility] Comment on above: Order Comment: 1 Performed By: #### L 506.0400, L504.2610, L500.4050, L501.9520, L100.0100 ####[facility] [address] [place], [address] CO2 [Moles/Vol] 27.0 mmol/L Normal 21.0-32.0 [facility] Comment on above: Order Comment: 1 Performed By: #### L 506.0400, L504.2610, L500.4050, L501.9520, L100.0100 ####[facility] [address] [place], [address] Creatinine [Mass/Vol] 3.29 mg/dL High 0.70-1.30 [facility] Comment on above: Order Comment: 1 Result Comment: The validity of the calculated GFR GFRAA in patients over70 years has not been determined. Clinical correlation isessential. Performed By: #### L 506.0400, L504.2610, L500.4050, L501.9520, L100.0100 ####[facility] [address] [place], [address] ECRCL 26.26 ml/min Normal [facility] Comment on above: Order Comment: 1 Performed By: #### L 506.0400, L504.2610, L500.4050, L501.9520, L100.0100 ####[facility] [address] [place], [address] EST GFR - AA 24 mL/min Low >60 [facility] Comment on above: Order Comment: 1 Result Comment: Afri can Eritrean GFR Calc Performed By: #### L 506.0400, L504.2610, L500.4050, L501.9520, L100.0100 ####[facility] [address] [place], [address] GAP 9 Normal 5-15 [facility] Comment on above: Order Comment: 1 Performed By: #### L 506.0400, L504.2610, L500.4050, L501.9520, L100.0100 ####[facility] [address] [place], [address] GFR/1.73 sq M.predicted among non-blacks MDRD (S/P/Bld) [Vol rate/Area] 20 mL/min/{1.73_m2} Low >60 [facility] Comment on above: Order Comment: 1 Result Comment: Non- GFR Calc Performed By: #### L 506.0400, L504.2610, L500.4050, L501.9520, L100.0100 ####[facility] [address] [place], [address] Globulin (S) [Mass/Vol] 4.4 g/dL High 2.2-4.2 [facility] Comment on above: Order Comment: 1 Performed By: #### L 506.0400, L504.2610, L500.4050, L501.9520, L100.0100 ####[facility] [address] [place], [address] Glucose [Mass/Vol] 184 mg/dL High 74-[address] [facility] Comment on above: Order Comment: 1 Result Comment: Fast ing Glucose result greater than or equal to 126 mg/dLsuggests DIABETES MELLITUS per A.D.A. criteria. Performed By: #### L 506.0400, L504.2610, L500.4050, L501.9520, L100.0100 ####[facility] [address] [place], [address] Potassium [Moles/Vol] 3.7 mmol/L Normal 3.5-5.1 [facility] Comment on above: Order Comment: 1 Performed By: #### L 506.0400, L504.2610, L500.4050, L501.9520, L100.0100 ####[facility] [address] [place], [address] Sodium [Moles/Vol] 136 mmol/L Normal 136-[address] [facility] Comment on above: Order Comment: 1 Performed By: #### L 506.0400, L504.2610, L500.4050, L501.9520, L100.0100 ####[facility] [address] [place], [address] T PROT 7.0 g/dL Normal 6.4-8.2 [facility] Comment on above: Order Comment: 1 Performed By: #### L 506.0400, L504.2610, L500.4050, L501.9520, L100.0100 ####[facility] [address] [place], [address] Urea nitrogen [Mass/Vol] 37 mg/dL High 7-18 [facility] Comment on above: Order Comment: 1 Performed By: #### L 506.0400, L504.2610, L500.4050, L501.9520, L100.0100 ####[facility] [address] [place], [address] Direct serum free thyroxine (FT4) measurementOrdered By: Jeffrey Kuhn on 07-04-2024 Free T4 [Mass/Vol] 1.46 ng/dL 0.76-1.[address] [facility] Direct serum free thyroxine (FT4) measurement 1.46 ng/dL 0.76-1.46 [facility] LDHon 07-04-2024 LDH 221 U/L Normal 87-241 [facility] Comment on above: Order Comment: 1 Performed By: #### L 506.0400, L504.2610, L500.4050, L501.9520, L100.0100 ####[facility] [address] [place], [address] Oncology Visit Reporton 06-25 Oncology Visit Report Normal [facility] Serum or plasma thyroid stim ulating hormone (TSH) measurement (units/volume)Ordered By: Jeffrey Kuhn on 07-04-2024 TSH Qn 8.420 uIU/mL High 0.358-3.740 [facility] T4 Free Directon 07-04-2024 T4 FREE DIRECT 1.46 ng/dL Normal 0.76-1.46 [facility] Comment on above: Order Comment: 1 Performed By: #### L 506.0400, L504.2610, L500.4050, L501.9520, L100.0100 ####[facility] [address] [place], [address] TSH QnOrdered By: Jeffrey natarajan on 07-04-2024 Thyroid Stimulating Hormone (TSH) 8.420 uIU/mL High 0.358-3.740 [facility] Serum or plasma thyroid stimulating hormone (TSH) measurement (units/volume) 8.420 uIU/mL High 0.358-3.740 [facility] Thyroid Stim Hormone (TSH)on 07-04-2024 TSH 8.420 uIU/mL High 0.358-3.740 [facility] Comment on above: Order Comment: 1 Performed By: #### L 506.0400, L504.2610, L500.4050, L501.9520, L100.0100 ####[facility] [address] [place], [address] CBC W/Diff, Automatedon 05-26 Absolute Lymph 1.10 X10 3/uL Normal 0.83-4.51 [facility] Comment on above: Performed By: #### L 501.9520, L500.4050, L506.0400, L504.2610, L100.0100 ####[facility] [address] [place], [address] Absolute Neut 4.6 X10 3/uL Normal 2.0-7.7 [facility] Comment on above: Performed By: #### L 501.9520, L500.4050, L506.0400, L504.2610, L100.0100 ####[facility] [address] [place], [address] Basophils/100 WBC (Bld) 0.9 % Normal 0-1 [facility] Comment on above: Performed By: #### L 501.9520, L500.4050, L506.0400, L504.2610, L100.0100 ####[facility] [address] [place], [address] Eosinophils/100 WBC (Bld) 2.2 % Normal 0-5 [facility] Comment on above: Performed By: #### L 501.9520, L500.4050, L506.0400, L504.2610, L100.0100 ####[facility] [address] [place], [address] Erythrocyte distribution width (RBC) [Ratio] 13.9 % Normal 11.6-14.6 [facility] Comment on above: Performed By: #### L 501.9520, L500.4050, L506.0400, L504.2610, L100.0100 ####[facility] [address] [place], [address] Hematocrit (Bld) [Volume fraction] 35.7 % Low 40-54 [facility] Comment on above: Performed By: #### L 501.9520, L500.4050, L506.0400, L504.2610, L100.0100 ####[facility] [address] [place], [address] Hemoglobin (Bld) [Mass/Vol] 11.7 g/dL Low 13.0-16.5 [facility] Comment on above: Performed By: #### L 501.9520, L500.4050, L506.0400, L504.2610, L100.0100 ####[facility] [address] [place], [address] IG% 0.300 Normal 0.0-0.9 [facility] Comment on above: Result Comment: IG% - Immature Granulocytes (promyelocytes, myelocytes andmetamyelocytes) > 1% indicates that a LEFT SHIFT is Present. Performed By: #### L 501.9520, L500.4050, L506.0400, L504.2610, L100.0100 ####[facility] [address] [place], [address] Lymphocytes/100 WBC (Bld) 16.9 % Low 19-41 [facility] Comment on above: Performed By: #### L 501.9520, L500.4050, L506.0400, L504.2610, L100.0100 ####[facility] [address] [place], [address] MCH (RBC) [Entitic mass] 30.3 pg Normal 27.0-32.0 [facility] Comment on above: Performed By: #### L 501.9520, L500.4050, L506.0400, L504.2610, L100.0100 ####[facility] [address] [place], [address] MCHC (RBC) [Mass/Vol] 32.8 g/dL Normal 32-36 [facility] Comment on above: Performed By: #### L 501.9520, L500.4050, L506.0400, L504.2610, L100.0100 ####[facility] [address] [place], [address] MCV (RBC) [Entitic vol] 92.5 fL Normal 80-94 [facility] Comment on above: Performed By: #### L 501.9520, L500.4050, L506.0400, L504.2610, L100.0100 ####[facility] [address] [place], [address] Monocytes/100 WBC (Bld) 8.8 % Normal 0-10 [facility] Comment on above: Performed By: #### L 501.9520, L500.4050, L506.0400, L504.2610, L100.0100 ####[facility] [address] [place], [address] Neutrophils/100 WBC (Bld) 70.9 % High 47-70 [facility] Comment on above: Performed By: #### L 501.9520, L500.4050, L506.0400, L504.2610, L100.0100 ####[facility] [address] [place], [address] Nucleated RBC (Bld) [#/Vol] 0 10*3/uL Normal 0-5 [facility] Comment on above: Performed By: #### L 501.9520, L500.4050, L506.0400, L504.2610, L100.0100 ####[facility] [address] [place], [address] Platelet mean volume (Bld) [Entitic vol] 10.1 fL Normal 6.2-12.0 [facility] Comment on above: Performed By: #### L 501.9520, L500.4050, L506.0400, L504.2610, L100.0100 ####[facility] [address] [place], [address] Platelets (Bld) [#/Vol] 183 10*3/uL Normal 150-450 [facility] Comment on above: Performed By: #### L 501.9520, L500.4050, L506.0400, L504.2610, L100.0100 ####[facility] [address] [place], [address] RBC (Bld) [#/Vol] 3.86 10*6/uL Low 4.6-6.2 [facility] Comment on above: Performed By: #### L 501.9520, L500.4050, L506.0400, L504.2610, L100.0100 ####[facility] [address] [place], [address] RDW SD 46.7 fl High 35.1-43.9 [facility] Comment on above: Performed By: #### L 501.9520, L500.4050, L506.0400, L504.2610, L100.0100 ####[facility] [address] [place], [address] WBC (Bld) [#/Vol] 6.5 10*3/uL Normal 4.4-11.[address] [facility] Comment on above: Performed By: #### L 501.9520, L500.4050, L506.0400, L504.2610, L100.0100 ####[facility] [address] [place], [address] Comprehensive Metabolic Prof ilon 06-07-2024 Albumin [Mass/Vol] 3.4 g/dL Normal 3.2-5.[address] [facility] Comment on above: Order Comment: 1 Performed By: #### L 501.9520, L500.4050, L506.0400, L504.2610, L100.0100 ####[facility] [address] [place], [address] Albumin/Globulin [Mass ratio] 0.8 {ratio} Low 0.9-2.4 [facility] Comment on above: Order Comment: 1 Performed By: #### L 501.9520, L500.4050, L506.0400, L504.2610, L100.0100 ####[facility] [address] [place], [address] ALK P 103 U/L Normal 45-117 [facility] Comment on above: Order Comment: 1 Performed By: #### L 501.9520, L500.4050, L506.0400, L504.2610, L100.0100 ####[facility] [address] [place], [address] ALT [Catalytic activity/Vol] 15 U/L Low 16-61 [facility] Comment on above: Order Comment: 1 Performed By: #### L 501.9520, L500.4050, L506.0400, L504.2610, L100.0100 ####[facility] [address] [place], [address] AST [Catalytic activity/Vol] 15 U/L Normal 15-37 [facility] Comment on above: Order Comment: 1 Performed By: #### L 501.9520, L500.4050, L506.0400, L504.2610, L100.0100 ####[facility] [address] [place], [address] Bilirubin [Mass/Vol] 1.00 mg/dL Normal 0.20-1.00 [facility] Comment on above: Order Comment: 1 Result Comment: For patients on eltrombopag therapy, use of Dimension Nisula TBIL is not recommended. Performed By: #### L 501.9520, L500.4050, L506.0400, L504.2610, L100.0100 ####[facility] [address] [place], [address] BUN/CRE 16.2 RATIO Normal 10-20 [facility] Comment on above: Order Comment: 1 Performed By: #### L 501.9520, L500.4050, L506.0400, L504.2610, L100.0100 ####[facility] [address] [place], [address] CA,Total 9.0 mg/dL Normal 8.5-10.1 [facility] Comment on above: Order Comment: 1 Performed By: #### L 501.9520, L500.4050, L506.0400, L504.2610, L100.0100 ####[facility] [address] [place], [address] Chloride [Moles/Vol] 105 mmol/L Normal 98-107 [facility] Comment on above: Order Comment: 1 Performed By: #### L 501.9520, L500.4050, L506.0400, L504.2610, L100.0100 ####[facility] [address] [place], [address] CO2 [Moles/Vol] 24.0 mmol/L Normal 21.0-32.0 [facility] Comment on above: Order Comment: 1 Performed By: #### L 501.9520, L500.4050, L506.0400, L504.2610, L100.0100 ####[facility] [address] [place], [address] Creatinine [Mass/Vol] 3.45 mg/dL High 0.70-1.30 [facility] Comment on above: Order Comment: 1 Result Comment: The validity of the calculated GFR GFRAA in patients over70 years has not been determined. Clinical correlation isessential. Performed By: #### L 501.9520, L500.4050, L506.0400, L504.2610, L100.0100 ####[facility] [address] [place], [address] ECRCL 25.66 ml/min Normal [facility] Comment on above: Order Comment: 1 Performed By: #### L 501.9520, L500.4050, L506.0400, L504.2610, L100.0100 ####[facility] [address] [place], [address] EST GFR - AA 23 mL/min Low >60 [facility] Comment on above: Order Comment: 1 Result Comment: Afri can Eritrean GFR Calc Performed By: #### L 501.9520, L500.4050, L506.0400, L504.2610, L100.0100 ####[facility] [address] [place], [address] GAP 9 Normal 5-15 [facility] Comment on above: Order Comment: 1 Performed By: #### L 501.9520, L500.4050, L506.0400, L504.2610, L100.0100 ####[facility] [address] [place], [address] GFR/1.73 sq M.predicted among non-blacks MDRD (S/P/Bld) [Vol rate/Area] 19 mL/min/{1.73_m2} Low >60 [facility] Comment on above: Order Comment: 1 Result Comment: Non- GFR Calc Performed By: #### L 501.9520, L500.4050, L506.0400, L504.2610, L100.0100 ####[facility] [address] [place], [address] Globulin (S) [Mass/Vol] 4.2 g/dL Normal 2.2-4.2 [facility] Comment on above: Order Comment: 1 Performed By: #### L 501.9520, L500.4050, L506.0400, L504.2610, L100.0100 ####[facility] [address] [place], [address] Glucose [Mass/Vol] 253 mg/dL High 74-[address] [facility] Comment on above: Order Comment: 1 Result Comment: Gluc ose result greater than or equal to 200 mg/dLsuggests DIABETES MELLITUS per A.D.A. criteria. Performed By: #### L 501.9520, L500.4050, L506.0400, L504.2610, L100.0100 ####[facility] [address] [place], [address] Potassium [Moles/Vol] 4.5 mmol/L Normal 3.5-5.1 [facility] Comment on above: Order Comment: 1 Performed By: #### L 501.9520, L500.4050, L506.0400, L504.2610, L100.0100 ####[facility] [address] [place], [address] Sodium [Moles/Vol] 138 mmol/L Normal 136-[address] [facility] Comment on above: Order Comment: 1 Performed By: #### L 501.9520, L500.4050, L506.0400, L504.2610, L100.0100 ####[facility] [address] [place], [address] T PROT 7.6 g/dL Normal 6.4-8.2 [facility] Comment on above: Order Comment: 1 Performed By: #### L 501.9520, L500.4050, L506.0400, L504.2610, L100.0100 ####[facility] [address] [place], [address] Urea nitrogen [Mass/Vol] 56 mg/dL High 7-18 [facility] Comment on above: Order Comment: 1 Performed By: #### L 501.9520, L500.4050, L506.0400, L504.2610, L100.0100 ####[facility] [address] [place], [address] LDHon 06-07-2024 LDH 197 U/L Normal 87-241 [facility] Comment on above: Order Comment: 1 Performed By: #### L 501.9520, L500.4050, L506.0400, L504.2610, L100.0100 ####[facility] [address] [place], [address] Oncology Visit Reporton 05-26 Oncology Visit Report Normal [facility] T4 Free Directon 06-07-2024 T4 FREE DIRECT 1.07 ng/dL Normal 0.76-1.46 [facility] Comment on above: Order Comment: 1 Performed By: #### L 501.9520, L500.4050, L506.0400, L504.2610, L100.0100 ####[facility] [address] [place], [address] Thyroid Stim Hormone (TSH)on 06-07-2024 TSH 9.320 uIU/mL High 0.358-3.740 [facility] Comment on above: Order Comment: 1 Performed By: #### L 501.9520, L500.4050, L506.0400, L504.2610, L100.0100 ####[facility] [address] [place], [address] CBC W/Diff, Automatedon 10 Absolute Lymph 1.12 X10 3/uL Normal 0.83-4.51 [facility] Comment on above: Performed By: #### L 100.0100, L500.4050, L504.2610 ####[facility] [address] [place], [address] Absolute Neut 4.7 X10 3/uL Normal 2.0-7.7 [facility] Comment on above: Performed By: #### L 100.0100, L500.4050, L504.2610 ####[facility] [address] [place], [address] Basophils/100 WBC (Bld) 0.8 % Normal 0-1 [facility] Comment on above: Performed By: #### L 100.0100, L500.4050, L504.2610 ####[facility] [address] [place], [address] Eosinophils/100 WBC (Bld) 1.2 % Normal 0-5 [facility] Comment on above: Performed By: #### L 100.0100, L500.4050, L504.2610 ####[facility] [address] [place], [address] Erythrocyte distribution width (RBC) [Ratio] 14.3 % Normal 11.6-14.6 [facility] Comment on above: Performed By: #### L 100.0100, L500.4050, L504.2610 ####[facility] [address] [place], [address] Hematocrit (Bld) [Volume fraction] 36.7 % Low 40-54 [facility] Comment on above: Performed By: #### L 100.0100, L500.4050, L504.2610 ####[facility] [address] [place], [address] Hemoglobin (Bld) [Mass/Vol] 12.1 g/dL Low 13.0-16.5 [facility] Comment on above: Performed By: #### L 100.0100, L500.4050, L504.2610 ####[facility] [address] [place], [address] IG% 0.500 Normal 0.0-0.9 [facility] Comment on above: Result Comment: IG% - Immature Granulocytes (promyelocytes, myelocytes andmetamyelocytes) > 1% indicates that a LEFT SHIFT is Present. Performed By: #### L 100.0100, L500.4050, L504.2610 ####[facility] [address] [place], [address] Lymphocytes/100 WBC (Bld) 17.1 % Low 19-41 [facility] Comment on above: Performed By: #### L 100.0100, L500.4050, L504.2610 ####[facility] [address] [place], [address] MCH (RBC) [Entitic mass] 30.9 pg Normal 27.0-32.0 [facility] Comment on above: Performed By: #### L 100.0100, L500.4050, L504.2610 ####[facility] [address] [place], [address] MCHC (RBC) [Mass/Vol] 33.0 g/dL Normal 32-36 [facility] Comment on above: Performed By: #### L 100.0100, L500.4050, L504.2610 ####[facility] [address] [place], [address] MCV (RBC) [Entitic vol] 93.6 fL Normal 80-94 [facility] Comment on above: Performed By: #### L 100.0100, L500.4050, L504.2610 ####[facility] [address] [place], [address] Monocytes/100 WBC (Bld) 9.2 % Normal 0-10 [facility] Comment on above: Performed By: #### L 100.0100, L500.4050, L504.2610 ####[facility] [address] [place], [address] Neutrophils/100 WBC (Bld) 71.2 % High 47-70 [facility] Comment on above: Performed By: #### L 100.0100, L500.4050, L504.2610 ####[facility] [address] [place], [address] Nucleated RBC (Bld) [#/Vol] 0 10*3/uL Normal 0-5 [facility] Comment on above: Performed By: #### L 100.0100, L500.4050, L504.2610 ####[facility] [address] [place], [address] Platelet mean volume (Bld) [Entitic vol] 9.8 fL Normal 6.2-12.0 [facility] Comment on above: Performed By: #### L 100.0100, L500.4050, L504.2610 ####[facility] [address] [place], [address] Platelets (Bld) [#/Vol] 176 10*3/uL Normal 150-450 [facility] Comment on above: Performed By: #### L 100.0100, L500.4050, L504.2610 ####[facility] [address] [place], [address] RBC (Bld) [#/Vol] 3.92 10*6/uL Low 4.6-6.2 [facility] Comment on above: Performed By: #### L 100.0100, L500.4050, L504.2610 ####[facility] [address] [place], [address] RDW SD 48.4 fl High 35.1-43.9 [facility] Comment on above: Performed By: #### L 100.0100, L500.4050, L504.2610 ####[facility] [address] [place], [address] WBC (Bld) [#/Vol] 6.5 10*3/uL Normal 4.4-11.[address] [facility] Comment on above: Performed By: #### L 100.0100, L500.4050, L504.2610 ####[facility] [address] [place], [address] Comprehensive Metabolic Prof [facility] 05-09-2024 Albumin [Mass/Vol] 3.4 g/dL Normal 3.2-5.[address] [facility] Comment on above: Order Comment: 1 Performed By: #### L 100.0100, L500.4050, L504.2610 ####[facility] [address] [place], [address] Albumin/Globulin [Mass ratio] 0.8 {ratio} Low 0.9-2.4 [facility] Comment on above: Order Comment: 1 Performed By: #### L 100.0100, L500.4050, L504.2610 ####[facility] [address] [place], [address] ALK P 111 U/L Normal 45-117 [facility] Comment on above: Order Comment: 1 Performed By: #### L 100.0100, L500.4050, L504.2610 ####[facility] [address] [place], [address] ALT [Catalytic activity/Vol] 14 U/L Low 16-61 [facility] Comment on above: Order Comment: 1 Performed By: #### L 100.0100, L500.4050, L504.2610 ####[facility] [address] [place], [address] AST [Catalytic activity/Vol] 12 U/L Low 15-37 [facility] Comment on above: Order Comment: 1 Performed By: #### L 100.0100, L500.4050, L504.2610 ####[facility] [address] [place], [address] Bilirubin [Mass/Vol] 1.30 mg/dL High 0.20-1.00 [facility] Comment on above: Order Comment: 1 Result Comment: For patients on eltrombopag therapy, use of Dimension Nisula TBIL is not recommended. Performed By: #### L 100.0100, L500.4050, L504.2610 ####[facility] [address] [place], [address] BUN/CRE 13.2 RATIO Normal 10-20 [facility] Comment on above: Order Comment: 1 Performed By: #### L 100.0100, L500.4050, L504.2610 ####[facility] [address] [place], [address] CA,Total 9.0 mg/dL Normal 8.5-10.1 [facility] Comment on above: Order Comment: 1 Performed By: #### L 100.0100, L500.4050, L504.2610 ####[facility] [address] [place], [address] Chloride [Moles/Vol] 100 mmol/L Normal 98-107 [facility] Comment on above: Order Comment: 1 Performed By: #### L 100.0100, L500.4050, L504.2610 ####[facility] [address] [place], [address] CO2 [Moles/Vol] 28.0 mmol/L Normal 21.0-32.0 [facility] Comment on above: Order Comment: 1 Performed By: #### L 100.0100, L500.4050, L504.2610 ####[facility] [address] [place], [address] Creatinine [Mass/Vol] 3.18 mg/dL High 0.70-1.30 [facility] Comment on above: Order Comment: 1 Result Comment: The validity of the calculated GFR GFRAA in patients over70 years has not been determined. Clinical correlation isessential. Performed By: #### L 100.0100, L500.4050, L504.2610 ####[facility] [address] [place], [address] ECRCL 28.30 ml/min Normal [facility] Comment on above: Order Comment: 1 Performed By: #### L 100.0100, L500.4050, L504.2610 ####[facility] [address] [place], [address] EST GFR - AA 25 mL/min Low >60 [facility] Comment on above: Order Comment: 1 Result Comment: Afri can Eritrean GFR Calc Performed By: #### L 100.0100, L500.4050, L504.2610 ####[facility] [address] [place], [address] GAP 8 Normal 5-15 [facility] Comment on above: Order Comment: 1 Performed By: #### L 100.0100, L500.4050, L504.2610 ####[facility] [address] [place], [address] GFR/1.73 sq M.predicted among non-blacks MDRD (S/P/Bld) [Vol rate/Area] 21 mL/min/{1.73_m2} Low >60 [facility] Comment on above: Order Comment: 1 Result Comment: Non- GFR Calc Performed By: #### L 100.0100, L500.4050, L504.2610 ####[facility] [address] [place], [address] Globulin (S) [Mass/Vol] 4.0 g/dL Normal 2.2-4.2 [facility] Comment on above: Order Comment: 1 Performed By: #### L 100.0100, L500.4050, L504.2610 ####[facility] [address] [place], [address] Glucose [Mass/Vol] 415 mg/dL High 74-[address] [facility] Comment on above: Order Comment: 1 Result Comment: Gluc ose result greater than or equal to 200 mg/dLsuggests DIABETES MELLITUS per A.D.A. criteria. Performed By: #### L 100.0100, L500.4050, L504.2610 ####[facility] [address] [place], [address] Potassium [Moles/Vol] 3.9 mmol/L Normal 3.5-5.1 [facility] Comment on above: Order Comment: 1 Performed By: #### L 100.0100, L500.4050, L504.2610 ####[facility] [address] [place], [address] Sodium [Moles/Vol] 136 mmol/L Normal 136-[address] [facility] Comment on above: Order Comment: 1 Performed By: #### L 100.0100, L500.4050, L504.2610 ####[facility] [address] [place], [address] T PROT 7.4 g/dL Normal 6.4-8.2 [facility] Comment on above: Order Comment: 1 Performed By: #### L 100.0100, L500.4050, L504.2610 ####[facility] [address] [place], [address] Urea nitrogen [Mass/Vol] 42 mg/dL High 7-18 [facility] Comment on above: Order Comment: 1 Performed By: #### L 100.0100, L500.4050, L504.2610 ####[facility] [address] [place], [address] LDHon 05-09-2024 LDH 193 U/L Normal 87-241 [facility] Comment on above: Order Comment: 1 Performed By: #### L 100.0100, L500.4050, L504.2610 ####[facility] [address] [place], [address] Oncology Visit Reporton 04-25 Oncology Visit Report Normal [facility] CT Chest, Abd, Pelvis WO Con ton 04-17-2024 CT Chest, Abd, Pelvis WO Cont Normal [facility] Basophil percentageOrdered B y: Sam Del Toro on 10-29-2023 Cholesterol [Mass/Vol] 141 mg/dL <200 [facility] Comment on above: <200 mg/dL Desirable 200-240 mg/dL Borderline >240 mg/dL High Risk Triglyceride [Mass/Vol] 181 mg/dL <199 [facility] Comment on above: The drugs N-Acetylcy steine and Metamizole may falsely depress this assay.Serum Triglycerides Reference Interval Normal <150 mg/dL Borderline high 150 - 199 mg/dL High 200 - 499 mg/dL Very High > or = 500 mg/dL Laboratory - Chemistry and C hemistry - challengeOrdered By: Sam Del Toro on 10-29-2023 Cholesterol in HDL [Mass/Vol] 31 mg/dL >40 [facility] Comment on above: The drugs N-Acetylcy steine and Metamizole may falsely depress this assay. Reference Range HDL <40 mg/dL Low HDL Cholesterol HDL >or= 60 mg/dL High HDL Cholesterol Cholesterol in LDL [Mass/Vol] 74 mg/dL 0-130 [facility] No Panel InformationOrdered By: Sam Del Toro on 10-29-2023 VLDL Cholesterol 36 mg/dL 5-40 [facility] Serum or plasma thyroid stim ulating hormone (TSH) measurement (units/volume)Ordered By: Sam Del Toro on 10-29-2023 TSH Qn 1.47 uIU/mL 0.358-3.74 [facility] Whole blood hemoglobin A1c/t otal hemoglobin ratio (mass fraction)Ordered By: Sam Del Toro on 10-29-2023 HbA1c (Bld) [Mass fraction] 7.5 % 3.8-5.6 [facility] Comment on above: Normal < 5.7 % Predi abetic 5.7 - 6.4 % Diabetic >or= 6.5 % Please note range changes. Absolute lymphocyte countOrd ered By: Jeffrey uKhn on 09-28-2023 Lymphocytes Auto (Unsp spec) [#/Vol] 1.34 10*3/uL 0.83-4.51 [facility] Automated lymphocyte count a s percentage of total leukocytesOrdered By: Jeffrey Kuhn on 09-28-2023 Lymphocytes/100 WBC Auto (Unsp spec) 17.6 % 19-41 [facility] Basophil percentageOrdered B y: Jeffrey Kuhn on 09-28-2023 Basophils/100 WBC (Bld) 0.9 % 0-1 [facility] Bilirubin [Mass/Vol] 1.00 mg/dL 0.20-1.00 [facility] Comment on above: For patients on eltr ombopag therapy, use of Dimension Nisula TBIL is not recommended. Chloride [Moles/Vol] 96 mmol/L 98-107 [facility] Eosinophils/100 WBC (Bld) 1.8 % 0-5 [facility] Glucose [Mass/Vol] 151 mg/dL 74-[address] [facility] Comment on above: Fasting Glucose resu lt greater than or equal to 126 mg/dL suggests DIABETES MELLITUS per A.D.A. criteria. Hemoglobin (Bld) [Mass/Vol] 12.0 g/dL 13.0-16.5 [facility] LDH [Catalytic activity/Vol] 155 U/L 87-241 [facility] Monocytes/100 WBC (Bld) 9.8 % 0-10 [facility] Neutrophils (Bld) [#/Vol] 5.3 10*3/uL 2.0-7.7 [facility] Neutrophils/100 WBC (Bld) 69.6 % 47-70 [facility] Potassium [Moles/Vol] 4.0 mmol/L 3.5-5.1 [facility] Protein [Mass/Vol] 7.6 g/dL 6.4-8.[address] [facility] Sodium [Moles/Vol] 133 mmol/L 136-[address] [facility] WBC (Bld) [#/Vol] 7.6 10*3/uL 4.4-11.[address] [facility] Determination of erythrocyte mean corpuscular volume (MCV)Ordered By: Jeffrey Kuhn on 09-28-2023 MCV (RBC) [Entitic vol] 92.5 fL 80-94 [facility] Erythrocyte distribution wid th ratioOrdered By: Jeffrey Kuhn on 09-28-2023 Erythrocyte distribution width (RBC) [Ratio] 13.3 % 11.6-14.6 [facility] Erythrocyte distribution wid th standard deviationOrdered By: Jeffrey Kuhn on 09-28-2023 Erythrocyte distribution width (RBC) [Entitic vol] 45.1 fL 35.1-43.9 [facility] Hematocrit Auto (Bld) [Volum e fraction]Ordered By: Jeffrey Kuhn on 09-28-2023 Hematocrit (Bld) [Volume fraction] 35.8 % 40-54 [facility] Immature granulocytes/100 WB C Auto (Bld)Ordered By: Jeffrey Kuhn on 09-28-2023 Immature granulocytes/100 WBC (Bld) 0.300 % 0.0-0.9 [facility] Comment on above: IG% - Immature Granu locytes (promyelocytes, myelocytes and metamyelocytes) > 1% indicates that a LEFT SHIFT is Present. Laboratory - Chemistry and C hemistry - challengeOrdered By: Jeffrey Kuhn on 09-28-2023 Albumin/Globulin [Mass ratio] 0.9 {ratio} 0.9-2.4 [facility] ALP [Catalytic activity/Vol] 74 U/L 45-117 [facility] ALT [Catalytic activity/Vol] 14 U/L 16-61 [facility] CO2 [Moles/Vol] 32.0 mmol/L 21.0-32.0 [facility] Globulin (S) [Mass/Vol] 4.1 g/dL 2.2-4.2 [facility] Urea nitrogen/Creatinine [Mass ratio] 10.5 mg/mg 10-20 [facility] Laboratory - Hematology and Cell countsOrdered By: Jeffrey Kuhn on 09-28-2023 MCH (RBC) [Entitic mass] 31.0 pg 27.0-32.0 [facility] MCHC (RBC) [Mass/Vol] 33.5 g/dL 32-36 [facility] Nucleated RBC/100 WBC (Bld) [Ratio] 0 % 0-5 [facility] Platelet mean volume (Bld) [Entitic vol] 9.4 fL 6.2-12.0 [facility] Platelets (Bld) [#/Vol] 185 10*3/uL 150-450 [facility] No Panel InformationOrdered By: Jeffrey Kuhn on 09-28-2023 Estimated Creatinine Clearance Calc 19.69 ml/min [facility] Estimated GFR (MDRD) Amer 16 mL/min >60 [facility] Comment on above: GFR Calc Estimated GFR (MDRD) Non-Af Amer 13 mL/min >60 [facility] Comment on above: Non- GFR Calc RBC Auto (Bld) [#/Vol]Ordere d By: Jeffrey Kuhn on 09-28-2023 RBC (Bld) [#/Vol] 3.87 10*6/uL 4.6-6.2 [facility] Serum or plasma calcium joshua urement (mass/volume)Ordered By: Jeffrey Kuhn on 09-28-2023 Calcium [Mass/Vol] 9.4 mg/dL 8.5-10.[address] [facility] Serum or plasma creatinine m easurement (mass/volume)Ordered By: Jeffrey Kuhn on 09-28-2023 Creatinine [Mass/Vol] 4.77 mg/dL 0.70-1.30 [facility] Comment on above: The validity of the calculated GFR & GFRAA in patients over 70 years has not been determined. Clinical correlation is essential. Serum or plasma urea nitroge n measurement (mass/volume)Ordered By: Jeffrey Kuhn on 09-28-2023 Urea nitrogen [Mass/Vol] 50 mg/dL 7-18 [facility] Thin prep Papanicolaou smear with manual screeningOrdered By: Jeffrey Kuhn on 09-28-2023 Thin prep Papanicolaou smear with manual screening 3.5 g/dL 3.2-5.0 [facility] Thin prep Papanicolaou smear with manual screening 12 U/L 15-37 [facility] Thin prep Papanicolaou smear with manual screening 5 5-15 [facility] 24 hour urine protein measur ement (mass/time)Ordered By: Dr. Tucker on 10-21-2022 Protein (24H U) [Mass/Time] 3394.8 mg/24HR 0-151 [facility] 24 hour urine protein measur ement (mass/volume)Ordered By: Dr. Tucker on 10-21-2022 Protein (24H U) [Mass/Vol] 157.9 mg/dL 0.0-11.8 [facility] 24 hour urine specimen volum e measurementOrdered By: Dr. Tucker on 10-21-2022 Specimen volume (24H U) 2.15 L [facility] Creatinine clearanceOrdered By: Dr. Tucker on 10-21-2022 Creatinine renal clearance Unsp time (U+S/P) [Vol/Time] 19 ml/min 100-200 [facility] Laboratory - Specimen inform ationOrdered By: Dr. Tucker on 10-21-2022 Collection duration (U) 24.0 HOURS 24.0-24.0 [facility] No Panel InformationOrdered By: Dr. Tucker on 10-21-2022 Estimated GFR (MDRD) Amer 17 mL/min >60 [facility] Comment on above: GFR Calc Estimated GFR (MDRD) Non-Af Amer 14 mL/min >60 [facility] Comment on above: Non- GFR Calc Serum or plasma creatinine m easurement (mass/volume)Ordered By: Dr. Tucker on 10-21-2022 Creatinine [Mass/Vol] 4.53 mg/dL 0.70-1.30 [facility] Comment on above: The validity of the calculated GFR & GFRAA in patients over 70 years has not been determined. Clinical correlation is essential. Urine creatinine measurement (mass/volume)Ordered By: Dr. Tucker on 10-21-2022 Creatinine (U) [Mass/Vol] 57.3 mg/dL NO RANGE EST. [facility] Basophil percentageOrdered B y: Ruby Rojas on 10-01-2022 Basophil percentage 4.8 mg/dL 2.5-4.9 [facility] Chloride [Moles/Vol] 108 mmol/L 98-107 [facility] Glucose [Mass/Vol] 139 mg/dL 74-[address] [facility] Comment on above: Fasting Glucose resu lt greater than or equal to 126 mg/dL suggests DIABETES MELLITUS per A.D.A. criteria. Potassium [Moles/Vol] 4.4 mmol/L 3.5-5.1 [facility] Sodium [Moles/Vol] 142 mmol/L 136-[address] [facility] Laboratory - Chemistry and C hemistry - challengeOrdered By: Ruby Rojas on 10-01-2022 CO2 [Moles/Vol] 24.0 mmol/L 21.0-32.0 [facility] Urea nitrogen/Creatinine [Mass ratio] 16.5 mg/mg 10-20 [facility] No Panel InformationOrdered By: Ruby Rojas on 10-01-2022 Estimated GFR (MDRD) Amer 16 mL/min >60 [facility] Comment on above: GFR Calc Estimated GFR (MDRD) Non-Af Amer 13 mL/min >60 [facility] Comment on above: Non- GFR Calc Parathyroid Hormone (Intact) 43.5 pg/mL 18.4-80.1 [facility] Thyroid Stimulating Hormone (TSH) 3.17 uIU/mL 0.358-3.74 [facility] Serum or plasma albumin joshua urement (mass/volume)Ordered By: Ruby Rojas on 10-01-2022 Albumin [Mass/Vol] 3.2 g/dL 3.2-5.[address] [facility] Serum or plasma calcium joshua urement (mass/volume)Ordered By: Ruby Rojas on 10-01-2022 Calcium [Mass/Vol] 9.5 mg/dL 8.5-10.[address] [facility] Serum or plasma creatinine m easurement (mass/volume)Ordered By: Ruby Rojas on 10-01-2022 Creatinine [Mass/Vol] 4.67 mg/dL 0.70-1.30 [facility] Comment on above: The validity of the calculated GFR & GFRAA in patients over 70 years has not been determined. Clinical correlation is essential. Serum or plasma urea nitroge n measurement (mass/volume)Ordered By: Ruby Rojas on 10-01-2022 Urea nitrogen [Mass/Vol] 77 mg/dL 7-18 [facility] Absolute lymphocyte countOrd ered By: Dr. Kuhn on 09-17-2022 Lymphocytes Auto (Unsp spec) [#/Vol] 1.25 10*3/uL 0.83-4.51 [facility] Basophil percentageOrdered B y: Dr. Kuhn on 09-17-2022 Basophils/100 WBC (Bld) 0.7 % 0-1 [facility] Bilirubin [Mass/Vol] 0.70 mg/dL 0.20-1.00 [facility] Comment on above: For patients on eltr ombopag therapy, use of Dimension Nisula TBIL is not recommended. Chloride [Moles/Vol] 109 mmol/L 98-107 [facility] Eosinophils/100 WBC (Bld) 2.8 % 0-5 [facility] Glucose [Mass/Vol] 149 mg/dL 74-[address] [facility] Comment on above: Fasting Glucose resu lt greater than or equal to 126 mg/dL suggests DIABETES MELLITUS per A.D.A. criteria. LDH [Catalytic activity/Vol] 164 U/L 87-241 [facility] Neutrophils (Bld) [#/Vol] 5.2 10*3/uL 2.0-7.7 [facility] Neutrophils/100 WBC (Bld) 71.2 % 47-70 [facility] Potassium [Moles/Vol] 4.7 mmol/L 3.5-5.1 [facility] Protein [Mass/Vol] 7.3 g/dL 6.4-8.[address] [facility] Sodium [Moles/Vol] 140 mmol/L 136-[address] [facility] WBC (Bld) [#/Vol] 7.3 10*3/uL 4.4-11.[address] [facility] Blood erythrocytes count (nu mber/volume)Ordered By: Dr. Kuhn on 09-17-2022 RBC (Bld) [#/Vol] 4.01 10*6/uL 4.6-6.2 [facility] Blood hemoglobin measurement (mass/volume)Ordered By: Dr. Kuhn on 09-17-2022 Hemoglobin (Bld) [Mass/Vol] 11.9 g/dL 13.0-16.5 [facility] Blood lymphocytes/100 leukoc ytesOrdered By: Dr. Kuhn on 09-17-2022 Lymphocytes/100 WBC (Bld) 17.2 % 19-41 [facility] Blood monocytes/100 leukocyt esOrdered By: Dr. Kuhn on 09-17-2022 Monocytes/100 WBC (Bld) 7.7 % 0-10 [facility] Blood platelet mean volumeOr dered By: Dr. Kuhn on 09-17-2022 Platelet mean volume (Bld) [Entitic vol] 9.5 fL 6.2-12.0 [facility] Determination of erythrocyte mean corpuscular volume (MCV)Ordered By: Dr. Kuhn on 09-17-2022 MCV (RBC) [Entitic vol] 96.5 fL 80-94 [facility] Hematocrit Auto (Bld) [Volum e fraction]Ordered By: Dr. Kuhn on 09-17-2022 Hematocrit (Bld) [Volume fraction] 38.7 % 40-54 [facility] Laboratory - Chemistry and C hemistry - challengeOrdered By: Dr. Kuhn on 09-17-2022 ALP [Catalytic activity/Vol] 54 U/L 45-117 [facility] ALT [Catalytic activity/Vol] 13 U/L 16-61 [facility] CO2 [Moles/Vol] 25.0 mmol/L 21.0-32.0 [facility] Globulin (S) [Mass/Vol] 4.0 g/dL 2.2-4.2 [facility] Urea nitrogen/Creatinine [Mass ratio] 17.4 mg/mg 10-20 [facility] Laboratory - Hematology and Cell countsOrdered By: Dr. Kuhn on 09-17-2022 Erythrocyte distribution width (RBC) [Entitic vol] 49.6 fL 35.1-43.9 [facility] Erythrocyte distribution width (RBC) [Ratio] 14.0 % 11.6-14.6 [facility] Immature granulocytes/100 WBC (Bld) 0.400 % 0.0-0.9 [facility] Comment on above: IG% - Immature Granu locytes (promyelocytes, myelocytes and metamyelocytes) > 1% indicates that a LEFT SHIFT is Present. MCH (RBC) [Entitic mass] 29.7 pg 27.0-32.0 [facility] Nucleated RBC/100 WBC (Bld) [Ratio] 0 % 0-5 [facility] MCHC Auto (RBC) [Mass/Vol]Or dered By: Dr. Kuhn on 09-17-2022 MCHC (RBC) [Mass/Vol] 30.7 g/dL 32-36 [facility] No Panel InformationOrdered By: Dr. Kuhn on 09-17-2022 Estimated Creatinine Clearance Calc 16.85 ml/min [facility] Estimated GFR (MDRD) Amer 17 mL/min >60 [facility] Comment on above: GFR Calc Estimated GFR (MDRD) Non-Af Amer 14 mL/min >60 [facility] Comment on above: Non- GFR Calc Platelets bldOrdered By: Dr. Kuhn on 09-17-2022 Platelets (Bld) [#/Vol] 219 10*3/uL 150-450 [facility] Serum or plasma albumin joshua urement (mass/volume)Ordered By: Dr. Kuhn on 09-17-2022 Albumin [Mass/Vol] 3.3 g/dL 3.2-5.[address] [facility] Serum or plasma albumin/glob ulin mass ratioOrdered By: Dr. Kuhn on 09-17-2022 Albumin/Globulin [Mass ratio] 0.8 {ratio} 0.9-2.4 [facility] Serum or plasma calcium joshua urement (mass/volume)Ordered By: Dr. Kuhn on 09-17-2022 Calcium [Mass/Vol] 10.0 mg/dL 8.5-10.[address] [facility] Serum or plasma creatinine m easurement (mass/volume)Ordered By: Dr. Kuhn on 09-17-2022 Creatinine [Mass/Vol] 4.53 mg/dL 0.70-1.30 [facility] Comment on above: The validity of the calculated GFR & GFRAA in patients over 70 years has not been determined. Clinical correlation is essential. Serum or plasma urea nitroge n measurement (mass/volume)Ordered By: Dr. Kuhn on 09-17-2022 Urea nitrogen [Mass/Vol] 79 mg/dL 7-18 [facility] Thin prep Papanicolaou smear with manual screeningOrdered By: Dr. Kuhn on 09-17-2022 Thin prep Papanicolaou smear with manual screening 8 U/L 15-37 [facility] Thin prep Papanicolaou smear with manual screening 6 5-15 [facility] Basophil percentageOrdered B y: Dr. Del Toro on 09-07-2022 Bilirubin [Mass/Vol] 0.80 mg/dL 0.20-1.00 [facility] Comment on above: For patients on eltr ombopag therapy, use of Dimension [place]is[place] TBIL is not recommended. Protein [Mass/Vol] 6.9 g/dL 6.4-8.[address] [facility] Direct bilirubinOrdered By: Dr. Del Toro on 09-07-2022 Bilirubin.direct [Mass/Vol] 0.23 mg/dL 0.00-0.30 [facility] Laboratory - Chemistry and C hemistry - challengeOrdered By: Dr. Del Toro on 09-07-2022 ALP [Catalytic activity/Vol] 48 U/L 45-117 [facility] ALT [Catalytic activity/Vol] 13 U/L 16-61 [facility] Globulin (S) [Mass/Vol] 3.8 g/dL 2.2-4.2 [facility] Serum or plasma albumin joshua urement (mass/volume)Ordered By: Dr. Del Toro on 09-07-2022 Albumin [Mass/Vol] 3.1 g/dL 3.2-5.[address] [facility] Thin prep Papanicolaou smear with manual screeningOrdered By: Dr. Del Toro on 09-07-2022 Thin prep Papanicolaou smear with manual screening 8 U/L 15-37 [facility] Basophil percentageOrdered B y: Dr. Tucker on 08-05-2022 Basophil percentage 4.1 mg/dL 2.5-4.9 [facility] Chloride [Moles/Vol] 111 mmol/L 98-107 [facility] Glucose [Mass/Vol] 214 mg/dL 74-[address] [facility] Comment on above: Glucose result great er than or equal to 200 mg/dLsuggests DIABETES MELLITUS per A.D.A. criteria. Potassium [Moles/Vol] 4.0 mmol/L 3.5-5.1 [facility] Sodium [Moles/Vol] 142 mmol/L 136-[address] [facility] Laboratory - Chemistry and C hemistry - challengeOrdered By: Dr. Tucker on 08-05-2022 CO2 [Moles/Vol] 24.0 mmol/L 21.0-32.0 [facility] Urea nitrogen/Creatinine [Mass ratio] 16.4 mg/mg 10-20 [facility] No Panel InformationOrdered By: Dr. Tucker on 08-05-2022 Estimated GFR (MDRD) Amer 17 mL/min >60 [facility] Comment on above: GFR Calc Estimated GFR (MDRD) Non-Af Amer 14 mL/min >60 [facility] Comment on above: Non- GFR Calc Parathyroid Hormone (Intact) 26.6 pg/mL 18.4-80.1 [facility] Serum or plasma albumin joshua urement (mass/volume)Ordered By: Dr. Tucker on 08-05-2022 Albumin [Mass/Vol] 3.0 g/dL 3.2-5.[address] [facility] Serum or plasma calcium joshua urement (mass/volume)Ordered By: Dr. Tucker on 08-05-2022 Calcium [Mass/Vol] 9.4 mg/dL 8.5-10.[address] [facility] Serum or plasma creatinine m easurement (mass/volume)Ordered By: Dr. Tucker on 08-05-2022 Creatinine [Mass/Vol] 4.44 mg/dL 0.70-1.30 [facility] Comment on above: The validity of the calculated GFR & GFRAA in patients over 70 years has not been determined. Clinical correlation is essential. Serum or plasma urea nitroge n measurement (mass/volume)Ordered By: Dr. Tucker on 08-05-2022 Urea nitrogen [Mass/Vol] 73 mg/dL 7-18 [facility] Absolute lymphocyte countOrd ered By: Dr. Kuhn on 05-13-2022 Lymphocytes Auto (Unsp spec) [#/Vol] 1.55 10*3/uL 0.83-4.51 [facility] Basophil percentageOrdered B y: Dr. Kuhn on 05-13-2022 Basophils/100 WBC (Bld) 1.1 % 0-1 [facility] Bilirubin [Mass/Vol] 0.60 mg/dL 0.20-1.00 [facility] Comment on above: For patients on eltr ombopag therapy, use of Dimension [place] TBIL is not recommended. Chloride [Moles/Vol] 109 mmol/L 98-107 [facility] Eosinophils/100 WBC (Bld) 4.5 % 0-5 [facility] Glucose [Mass/Vol] 158 mg/dL 74-[address] [facility] Comment on above: Fasting Glucose resu lt greater than or equal to 126 mg/dL suggests DIABETES MELLITUS per A.D.A. criteria. Neutrophils (Bld) [#/Vol] 4.5 10*3/uL 2.0-7.7 [facility] Neutrophils/100 WBC (Bld) 64.1 % 47-70 [facility] Potassium [Moles/Vol] 4.5 mmol/L 3.5-5.1 [facility] Protein [Mass/Vol] 7.1 g/dL 6.4-8.[address] [facility] Sodium [Moles/Vol] 142 mmol/L 136-[address] [facility] WBC (Bld) [#/Vol] 7.0 10*3/uL 4.4-11.[address] [facility] Blood erythrocytes count (nu mber/volume)Ordered By: Dr. Kuhn on 05-13-2022 RBC (Bld) [#/Vol] 3.85 10*6/uL 4.6-6.2 [facility] Blood hemoglobin measurement (mass/volume)Ordered By: Dr. Kuhn on 05-13-2022 Hemoglobin (Bld) [Mass/Vol] 11.5 g/dL 13.0-16.5 [facility] Blood lymphocytes/100 leukoc ytesOrdered By: Dr. Kuhn on 05-13-2022 Lymphocytes/100 WBC (Bld) 22.0 % 19-41 [facility] Blood monocytes/100 leukocyt esOrdered By: Dr. Kuhn on 05-13-2022 Monocytes/100 WBC (Bld) 8.0 % 0-10 [facility] Blood platelet mean volumeOr dered By: Dr. Kuhn on 05-13-2022 Platelet mean volume (Bld) [Entitic vol] 9.4 fL 6.2-12.0 [facility] Determination of erythrocyte mean corpuscular volume (MCV)Ordered By: Dr. Kuhn on 05-13-2022 MCV (RBC) [Entitic vol] 95.6 fL 80-94 [facility] Hematocrit Auto (Bld) [Volum e fraction]Ordered By: Dr. Kuhn on 05-13-2022 Hematocrit (Bld) [Volume fraction] 36.8 % 40-54 [facility] Laboratory - Chemistry and C hemistry - challengeOrdered By: Dr. Kuhn on 05-13-2022 ALP [Catalytic activity/Vol] 55 U/L 45-117 [facility] ALT [Catalytic activity/Vol] 14 U/L 16-61 [facility] CO2 [Moles/Vol] 26.0 mmol/L 21.0-32.0 [facility] Free T4 [Mass/Vol] 1.20 ng/dL 0.76-1.[address] [facility] Globulin (S) [Mass/Vol] 4.1 g/dL 2.2-4.2 [facility] Urea nitrogen/Creatinine [Mass ratio] 16.2 mg/mg 10-20 [facility] Laboratory - Hematology and Cell countsOrdered By: Dr. Kuhn on 05-13-2022 Erythrocyte distribution width (RBC) [Entitic vol] 56.3 fL 35.1-43.9 [facility] Erythrocyte distribution width (RBC) [Ratio] 15.9 % 11.6-14.6 [facility] Immature granulocytes/100 WBC (Bld) 0.300 % 0.0-0.9 [facility] Comment on above: IG% - Immature Granu locytes (promyelocytes, myelocytes and metamyelocytes) > 1% indicates that a LEFT SHIFT is Present. MCH (RBC) [Entitic mass] 29.9 pg 27.0-32.0 [facility] Nucleated RBC/100 WBC (Bld) [Ratio] 0 % 0-5 [facility] MCHC Auto (RBC) [Mass/Vol]Or dered By: Dr. Kuhn on 05-13-2022 MCHC (RBC) [Mass/Vol] 31.3 g/dL 32-36 [facility] No Panel InformationOrdered By: Dr. Kuhn on 05-13-2022 Estimated Creatinine Clearance Calc 19.33 ml/min [facility] Estimated GFR (MDRD) Amer 20 mL/min >60 [facility] Comment on above: GFR Calc Estimated GFR (MDRD) Non-Af Amer 16 mL/min >60 [facility] Comment on above: Non- GFR Calc Thyroid Stimulating Hormone (TSH) 3.86 uIU/mL 0.358-3.74 [facility] Platelets bldOrdered By: Dr. Kuhn on 05-13-2022 Platelets (Bld) [#/Vol] 247 10*3/uL 150-450 [facility] Serum or plasma albumin joshua urement (mass/volume)Ordered By: Dr. Kuhn on 05-13-2022 Albumin [Mass/Vol] 3.0 g/dL 3.2-5.[address] [facility] Serum or plasma albumin/glob ulin mass ratioOrdered By: Dr. Kuhn on 05-13-2022 Albumin/Globulin [Mass ratio] 0.7 {ratio} 0.9-2.4 [facility] Serum or plasma calcium joshua urement (mass/volume)Ordered By: Dr. Kuhn on 05-13-2022 Calcium [Mass/Vol] 9.8 mg/dL 8.5-10.[address] [facility] Serum or plasma creatinine m easurement (mass/volume)Ordered By: Dr. Kuhn on 05-13-2022 Creatinine [Mass/Vol] 3.95 mg/dL 0.70-1.30 [facility] Comment on above: The validity of the calculated GFR & GFRAA in patients over 70 years has not been determined. Clinical correlation is essential. Serum or plasma urea nitroge n measurement (mass/volume)Ordered By: Dr. Kuhn on 05-13-2022 Urea nitrogen [Mass/Vol] 64 mg/dL 7-18 [facility] Thin prep Papanicolaou smear with manual screeningOrdered By: Dr. Kuhn on 05-13-2022 Thin prep Papanicolaou smear with manual screening 12 U/L 15-37 [facility] Thin prep Papanicolaou smear with manual screening 7 5-15 [facility] Thin prep Papanicolaou smear with manual screening 152 U/L 87-241 [facility] Clostridium difficile detect ion by polymerase chain reactionOrdered By: Dr. Del Toro on 04-25-2022 C. difficile DNA TRICIA+probe Ql (Unsp spec) [facility] Stool Clostridium difficile detectionOrdered By: Dr. Del Toro on 04-25-2022 C. difficile Ql (Stl) [facility] Basophil percentageOrdered B y: Dr. Tucker on 04-21-2022 Basophil percentage 3.6 mg/dL 2.5-4.9 [facility] Chloride [Moles/Vol] 107 mmol/L 98-107 [facility] Glucose [Mass/Vol] 168 mg/dL 74-[address] [facility] Comment on above: Fasting Glucose resu lt greater than or equal to 126 mg/dL suggests DIABETES MELLITUS per A.D.A. criteria. Potassium [Moles/Vol] 3.8 mmol/L 3.5-5.1 [facility] Sodium [Moles/Vol] 140 mmol/L 136-[address] [facility] WBC (Bld) [#/Vol] 6.9 10*3/uL 4.4-11.[address] [facility] Blood erythrocytes count (nu mber/volume)Ordered By: Dr. Tucker on 04-21-2022 RBC (Bld) [#/Vol] 3.59 10*6/uL 4.6-6.2 [facility] Blood hemoglobin measurement (mass/volume)Ordered By: Dr. Tucker on 04-21-2022 Hemoglobin (Bld) [Mass/Vol] 10.5 g/dL 13.0-16.5 [facility] Blood platelet mean volumeOr dered By: Dr. Tucker on 04-21-2022 Platelet mean volume (Bld) [Entitic vol] 9.4 fL 6.2-12.0 [facility] Determination of erythrocyte mean corpuscular volume (MCV)Ordered By: Dr. Tucker on 04-21-2022 MCV (RBC) [Entitic vol] 93.0 fL 80-94 [facility] Hematocrit Auto (Bld) [Volum e fraction]Ordered By: Dr. Tucker on 04-21-2022 Hematocrit (Bld) [Volume fraction] 33.4 % 40-54 [facility] Iron measurement (mass/mass) Ordered By: Dr. Tucker on 04-21-2022 Iron (Unsp spec) [Mass/Mass] 29 ug/dL 65-175 [facility] Laboratory - Chemistry and C hemistry - challengeOrdered By: Dr. Tucker on 04-21-2022 CO2 [Moles/Vol] 24.0 mmol/L 21.0-32.0 [facility] Urea nitrogen/Creatinine [Mass ratio] 13.4 mg/mg 10-20 [facility] Laboratory - Hematology and Cell countsOrdered By: Dr. Tucker on 04-21-2022 Erythrocyte distribution width (RBC) [Entitic vol] 51.8 fL 35.1-43.9 [facility] Erythrocyte distribution width (RBC) [Ratio] 15.5 % 11.6-14.6 [facility] MCH (RBC) [Entitic mass] 29.2 pg 27.0-32.0 [facility] MCHC Auto (RBC) [Mass/Vol]Or dered By: Dr. Tucker on 04-21-2022 MCHC (RBC) [Mass/Vol] 31.4 g/dL 32-36 [facility] No Panel InformationOrdered By: Dr. Tucker on 04-21-2022 Estimated GFR (MDRD) Amer 18 mL/min >60 [facility] Comment on above: GFR Calc Estimated GFR (MDRD) Non-Af Amer 15 mL/min >60 [facility] Comment on above: Non- GFR Calc Parathyroid Hormone (Intact) 29.1 pg/mL 18.4-80.1 [facility] Total Iron Binding Capacity 225 ug/dL 250-450 [facility] Platelets bldOrdered By: Dr. Tucker on 04-21-2022 Platelets (Bld) [#/Vol] 242 10*3/uL 150-450 [facility] Serum or plasma albumin joshua urement (mass/volume)Ordered By: Dr. Tucker on 04-21-2022 Albumin [Mass/Vol] 2.5 g/dL 3.2-5.[address] [facility] Serum or plasma calcium joshua urement (mass/volume)Ordered By: Dr. Tucker on 04-21-2022 Calcium [Mass/Vol] 9.0 mg/dL 8.5-10.[address] [facility] Serum or plasma creatinine m easurement (mass/volume)Ordered By: Dr. Tucker on 04-21-2022 Creatinine [Mass/Vol] 4.19 mg/dL 0.70-1.30 [facility] Comment on above: The validity of the calculated GFR & GFRAA in patients over 70 years has not been determined. Clinical correlation is essential. Serum or plasma ferritin graham surement (mass/volume)Ordered By: Dr. Tucker on 04-21-2022 Ferritin [Mass/Vol] 172 ng/mL 26-388 [facility] Serum or plasma iron saturat ion measurement (mass fraction)Ordered By: Dr. Tucker on 04-21-2022 Iron saturation [Mass fraction] 12.9 % 15.0-55.0 [facility] Serum or plasma urea nitroge n measurement (mass/volume)Ordered By: Dr. Tucker on 04-21-2022 Urea nitrogen [Mass/Vol] 56 mg/dL 7-18 [facility] Basophil percentageon 2021 Chloride [Moles/Vol] 106 mmol/L 98-107 [facility] Work Phone: Glucose [Mass/Vol] 155 mg/dL 74-[address] [facility] Work Phone: Comment on above: Fasting Glucose resu lt greater than or equal to 126 mg/dL suggests DIABETES MELLITUS per A.D.A. criteria. Potassium [Moles/Vol] 4.3 mmol/L 3.5-5.1 [facility] Work Phone: Sodium [Moles/Vol] 138 mmol/L 136-[address] [facility] Work Phone: WBC (Bld) [#/Vol] 8.9 10*3/uL 4.4-11.[address] [facility] Work Phone: Blood erythrocytes count (nu mber/volume)on 02-17-2022 RBC (Bld) [#/Vol] 3.69 10*6/uL 4.6-6.2 [facility] Work Phone: [phone] Blood hemoglobin measurement (mass/volume)on 02-17-2022 Hemoglobin (Bld) [Mass/Vol] 10.3 g/dL 13.0-16.5 [facility] Work Phone: [phone] Blood platelet mean volumeon 02-17-2022 Platelet mean volume (Bld) [Entitic vol] 9.9 fL 6.2-12.0 [facility] Work Phone: [phone] Determination of erythrocyte mean corpuscular volume (MCV)on 02-17-2022 MCV (RBC) [Entitic vol] 91.1 fL 80-94 [facility] Work Phone: [phone] Hematocrit Auto (Bld) [Volum e fraction]on 02-17-2022 Hematocrit (Bld) [Volume fraction] 33.6 % 40-54 [facility] Work Phone: [phone] Laboratory - Chemistry and C hemistry - challengeon 02-17-2022 CO2 [Moles/Vol] 26.0 mmol/L 21.0-32.0 [facility] Work Phone: [phone] Urea nitrogen/Creatinine [Mass ratio] 14.0 mg/mg 10-20 [facility] Work Phone: [phone] Laboratory - Hematology and Cell countson 02-17-2022 Erythrocyte distribution width (RBC) [Entitic vol] 61.0 fL 35.1-43.9 [facility] Work Phone: [phone] Erythrocyte distribution width (RBC) [Ratio] 18.5 % 11.6-14.6 [facility] Work Phone: [phone] MCH (RBC) [Entitic mass] 27.9 pg 27.0-32.0 [facility] Work Phone: MCHC Auto (RBC) [Mass/Vol]on 02-17-2022 MCHC (RBC) [Mass/Vol] 30.7 g/dL 32-36 [facility] Work Phone: No Panel Informationon 02-17 Estimated GFR (MDRD) Amer 20 mL/min >60 [facility] Work Phone: Comment on above: GFR Calc Estimated GFR (MDRD) Non-Af Amer 16 mL/min >60 [facility] Work Phone: Comment on above: Non- GFR Calc Platelets bldon 02-17-2022 Platelets (Bld) [#/Vol] 261 10*3/uL 150-450 [facility] Work Phone: Serum or plasma calcium joshua urement (mass/volume)on 02-17-2022 Calcium [Mass/Vol] 9.7 mg/dL 8.5-10.[address] [facility] Work Phone: Serum or plasma creatinine m easurement (mass/volume)on 02-17-2022 Creatinine [Mass/Vol] 3.94 mg/dL 0.70-1.30 [facility] Work Phone: Comment on above: The validity of the calculated GFR & GFRAA in patients over 70 years has not been determined. Clinical correlation is essential. Serum or plasma urea nitroge n measurement (mass/volume)on 02-17-2022 Urea nitrogen [Mass/Vol] 55 mg/dL 7-18 [facility] Work Phone: [phone] Thin prep Papanicolaou smear with manual screeningon 02-17-2022 Thin prep Papanicolaou smear with manual screening 6 5-15 [facility] Work Phone: [phone] Absolute lymphocyte counton 01-17-2022 Lymphocytes Auto (Unsp spec) [#/Vol] 0.86 10*3/uL 0.83-4.51 [facility] Work Phone: Basophil percentageon 2021 Basophils/100 WBC (Bld) 0.8 % 0-1 [facility] Work Phone: Chloride [Moles/Vol] 111 mmol/L 98-107 [facility] Work Phone: Eosinophils/100 WBC (Bld) 3.4 % 0-5 [facility] Work Phone: Glucose [Mass/Vol] 104 mg/dL 74-[address] [facility] Work Phone: Comment on above: Fasting Glucose resu lt from 100 to 125 mg/dL suggests IMPAIRED HOMEOSTASIS per A.D.A. criteria. Neutrophils (Bld) [#/Vol] 6.2 10*3/uL 2.0-7.7 [facility] Work Phone: Neutrophils/100 WBC (Bld) 75.7 % 47-70 [facility] Work Phone: Potassium [Moles/Vol] 4.5 mmol/L 3.5-5.1 [facility] Work Phone: Sodium [Moles/Vol] 139 mmol/L 136-[address] [facility] Work Phone: WBC (Bld) [#/Vol] 8.3 10*3/uL 4.4-11.[address] [facility] Work Phone: Blood erythrocytes count (nu mber/volume)on 01-17-2022 RBC (Bld) [#/Vol] 3.47 10*6/uL 4.6-6.2 [facility] Work Phone: Blood hemoglobin measurement (mass/volume)on 01-17-2022 Hemoglobin (Bld) [Mass/Vol] 9.2 g/dL 13.0-16.5 [facility] Work Phone: Blood lymphocytes/100 leukoc yteson 01-17-2022 Lymphocytes/100 WBC (Bld) 10.4 % 19-41 [facility] Work Phone: Blood monocytes/100 leukocyt eson 01-17-2022 Monocytes/100 WBC (Bld) 9.0 % 0-10 [facility] Work Phone: [phone] Blood platelet mean volumeon 01-17-2022 Platelet mean volume (Bld) [Entitic vol] 9.4 fL 6.2-12.0 [facility] Work Phone: [phone] Determination of erythrocyte mean corpuscular volume (MCV)on 01-17-2022 MCV (RBC) [Entitic vol] 91.6 fL 80-94 [facility] Work Phone: [phone] Hematocrit Auto (Bld) [Volum e fraction]on 01-17-2022 Hematocrit (Bld) [Volume fraction] 31.8 % 40-54 [facility] Work Phone: [phone] Laboratory - Chemistry and C hemistry - challengeon 01-17-2022 CO2 [Moles/Vol] 21.0 mmol/L 21.0-32.0 [facility] Work Phone: [phone] Urea nitrogen/Creatinine [Mass ratio] 13.4 mg/mg 10-20 [facility] Work Phone: [phone] Laboratory - Hematology and Cell countson 01-17-2022 Erythrocyte distribution width (RBC) [Entitic vol] 61.0 fL 35.1-43.9 [facility] Work Phone: [phone] Erythrocyte distribution width (RBC) [Ratio] 18.3 % 11.6-14.6 [facility] Work Phone: [phone] Immature granulocytes/100 WBC (Bld) 0.700 % 0.0-0.9 [facility] Work Phone: [phone] Comment on above: IG% - Immature Granu locytes (promyelocytes, myelocytes and metamyelocytes) > 1% indicates that a LEFT SHIFT is Present. MCH (RBC) [Entitic mass] 26.5 pg 27.0-32.0 [facility] Work Phone: [phone] Nucleated RBC/100 WBC (Bld) [Ratio] 0 % 0-5 [facility] Work Phone: [phone] MCHC Auto (RBC) [Mass/Vol]on 01-17-2022 MCHC (RBC) [Mass/Vol] 28.9 g/dL 32-36 [facility] Work Phone: No Panel Informationon 01-17 Estimated Creatinine Clearance Calc 22.72 ml/min [facility] Work Phone: Estimated GFR (MDRD) Amer 24 mL/min >60 [facility] Work Phone: Comment on above: GFR Calc Estimated GFR (MDRD) Non-Af Amer 20 mL/min >60 [facility] Work Phone: Comment on above: Non- GFR Calc Platelets bldon 01-17-2022 Platelets (Bld) [#/Vol] 267 10*3/uL 150-450 [facility] Work Phone: Serum or plasma calcium joshua urement (mass/volume)on 01-17-2022 Calcium [Mass/Vol] 8.8 mg/dL 8.5-10.[address] [facility] Work Phone: Serum or plasma creatinine m easurement (mass/volume)on 01-17-2022 Creatinine [Mass/Vol] 3.36 mg/dL 0.70-1.30 [facility] Work Phone: Comment on above: The validity of the calculated GFR & GFRAA in patients over 70 years has not been determined. Clinical correlation is essential. Serum or plasma urea nitroge n measurement (mass/volume)on 01-17-2022 Urea nitrogen [Mass/Vol] 45 mg/dL 7-18 [facility] Work Phone: [phone] Thin prep Papanicolaou smear with manual screeningon 01-17-2022 Thin prep Papanicolaou smear with manual screening 7 5-15 [facility] Work Phone: [phone] Absolute lymphocyte counton 01-12-2022 Lymphocytes Auto (Unsp spec) [#/Vol] 1.01 10*3/uL 0.83-4.51 [facility] Work Phone: Basophil percentageOrdered B y: Dr. Kuhn on 01-12-2022 Basophil percentage 3.8 mg/dL 2.5-4.9 [facility] Basophil percentageon 2021 Basophils/100 WBC (Bld) 0.6 % 0-1 [facility] Work Phone: Bilirubin [Mass/Vol] 0.90 mg/dL 0.20-1.00 [facility] Work Phone: Comment on above: For patients on eltr ombopag therapy, use of Dimension [place]isula TBIL is not recommended. Chloride [Moles/Vol] 114 mmol/L 98-107 [facility] Work Phone: Eosinophils/100 WBC (Bld) 2.2 % 0-5 [facility] Work Phone: Glucose [Mass/Vol] 96 mg/dL 74-[address] [facility] Work Phone: Neutrophils (Bld) [#/Vol] 9.0 10*3/uL 2.0-7.7 [facility] Work Phone: Neutrophils/100 WBC (Bld) 80.2 % 47-70 [facility] Work Phone: Potassium [Moles/Vol] 4.5 mmol/L 3.5-5.1 [facility] Work Phone: Protein [Mass/Vol] 6.3 g/dL 6.4-8.[address] [facility] Work Phone: Sodium [Moles/Vol] 140 mmol/L 136-[address] [facility] Work Phone: WBC (Bld) [#/Vol] 11.2 10*3/uL 4.4-11.0 [facility] Work Phone: Blood erythrocytes count (nu mber/volume)on 01-12-2022 RBC (Bld) [#/Vol] 3.52 10*6/uL 4.6-6.2 [facility] Work Phone: Blood hemoglobin measurement (mass/volume)on 01-12-2022 Hemoglobin (Bld) [Mass/Vol] 9.3 g/dL 13.0-16.5 [facility] Work Phone: Blood lymphocytes/100 leukoc yteson 01-12-2022 Lymphocytes/100 WBC (Bld) 9.1 % 19-41 [facility] Work Phone: Blood monocytes/100 leukocyt eson 01-12-2022 Monocytes/100 WBC (Bld) 7.3 % 0-10 [facility] Work Phone: Blood platelet adequacy dete ction by light microscopyOrdered By: Dr. Kuhn on 01-12-2022 Platelets LM Ql (Bld) ADEQUATE ADEQ [facility] Blood platelet mean volumeon 01-12-2022 Platelet mean volume (Bld) [Entitic vol] 10.0 fL 6.2-12.0 [facility] Work Phone: Determination of erythrocyte mean corpuscular volume (MCV)on 01-12-2022 MCV (RBC) [Entitic vol] 96.3 fL 80-94 [facility] Work Phone: Hematocrit Auto (Bld) [Volum e fraction]on 01-12-2022 Hematocrit (Bld) [Volume fraction] 33.9 % 40-54 [facility] Work Phone: Laboratory - Chemistry and C hemistry - challengeon 01-12-2022 ALP [Catalytic activity/Vol] 58 U/L 45-117 [facility] Work Phone: ALT [Catalytic activity/Vol] 13 U/L 16-61 [facility] Work Phone: CO2 [Moles/Vol] 18.0 mmol/L 21.0-32.0 [facility] Work Phone: Globulin (S) [Mass/Vol] 3.7 g/dL 2.2-4.2 [facility] Work Phone: Urea nitrogen/Creatinine [Mass ratio] 14.1 mg/mg 10-20 [facility] Work Phone: Laboratory - Hematology and Cell countsOrdered By: Dr. Kuhn on 01-12-2022 Anisocytosis Ql (Bld) 1+ [facility] Laboratory - Hematology and Cell countson 01-12-2022 Erythrocyte distribution width (RBC) [Entitic vol] 67.2 fL 35.1-43.9 [facility] Work Phone: Erythrocyte distribution width (RBC) [Ratio] 19.1 % 11.6-14.6 [facility] Work Phone: Immature granulocytes/100 WBC (Bld) 0.600 % 0.0-0.9 [facility] Work Phone: Comment on above: IG% - Immature Granu locytes (promyelocytes, myelocytes and metamyelocytes) > 1% indicates that a LEFT SHIFT is Present. MCH (RBC) [Entitic mass] 26.4 pg 27.0-32.0 [facility] Work Phone: Nucleated RBC/100 WBC (Bld) [Ratio] 0 % 0-5 [facility] Work Phone: MCHC Auto (RBC) [Mass/Vol]on 01-12-2022 MCHC (RBC) [Mass/Vol] 27.4 g/dL 32-36 [facility] Work Phone: No Panel Informationon 01-12 Estimated Creatinine Clearance Calc 22.39 ml/min [facility] Work Phone: Estimated GFR (MDRD) Amer 23 mL/min >60 [facility] Work Phone: Comment on above: GFR Calc Estimated GFR (MDRD) Non-Af Amer 19 mL/min >60 [facility] Work Phone: Comment on above: Non- GFR Calc No Panel InformationOrdered By: Jeffrey Kuhn on 01-12-2022 1+ [facility] Platelets LM Ql (Bld)Ordered By: Jeffrey Kuhn on 01-12-2022 Platelet Estimate ADEQUATE ADEQ [facility] Blood platelet adequacy detection by light microscopy ADEQUATE ADEQ [facility] Platelets bldon 01-12-2022 Platelets (Bld) [#/Vol] 239 10*3/uL 150-450 [facility] Work Phone: Serum or plasma albumin joshua urement (mass/volume)on 01-12-2022 Albumin [Mass/Vol] 2.6 g/dL 3.2-5.[address] [facility] Work Phone: [phone] Serum or plasma albumin/glob ulin mass ratioon 01-12-2022 Albumin/Globulin [Mass ratio] 0.7 {ratio} 0.9-2.4 [facility] Work Phone: [phone] Serum or plasma calcium joshua urement (mass/volume)on 01-12-2022 Calcium [Mass/Vol] 8.6 mg/dL 8.5-10.[address] [facility] Work Phone: Serum or plasma creatinine m easurement (mass/volume)on 01-12-2022 Creatinine [Mass/Vol] 3.41 mg/dL 0.70-1.30 [facility] Work Phone: Comment on above: The validity of the calculated GFR & GFRAA in patients over 70 years has not been determined. Clinical correlation is essential. Serum or plasma urea nitroge n measurement (mass/volume)on 01-12-2022 Urea nitrogen [Mass/Vol] 48 mg/dL 7-18 [facility] Work Phone: [phone] Thin prep Papanicolaou smear with manual screeningon 01-12-2022 Thin prep Papanicolaou smear with manual screening 18 U/L 15-37 [facility] Work Phone: [phone] Thin prep Papanicolaou smear with manual screening 8 5-15 [facility] Work Phone: [phone] Thin prep Papanicolaou smear with manual screening 443 U/L 87-241 [facility] Work Phone: [phone] Trichomonas screening testOr dered By: Jeffrey Kuhn on 01-12-2022 Phosphorus Level 3.8 mg/dL 2.5-4.9 [facility] Trichomonas screening test 3.8 mg/dL 2.5-4.9 [facility] Absolute lymphocyte counton 01-06-2022 Lymphocytes Auto (Unsp spec) [#/Vol] 0.73 10*3/uL 0.83-4.51 [facility] Work Phone: Basophil percentageon 2021 Basophils/100 WBC (Bld) 0.4 % 0-1 [facility] Work Phone: Eosinophils/100 WBC (Bld) 2.6 % 0-5 [facility] Work Phone: Neutrophils (Bld) [#/Vol] 6.2 10*3/uL 2.0-7.7 [facility] Work Phone: Neutrophils/100 WBC (Bld) 75.8 % 47-70 [facility] Work Phone: WBC (Bld) [#/Vol] 8.2 10*3/uL 4.4-11.[address] [facility] Work Phone: Blood erythrocytes count (nu mber/volume)on 01-06-2022 RBC (Bld) [#/Vol] 3.19 10*6/uL 4.6-6.2 [facility] Work Phone: Blood hemoglobin measurement (mass/volume)on 01-06-2022 Hemoglobin (Bld) [Mass/Vol] 8.6 g/dL 13.0-16.5 [facility] Work Phone: Blood lymphocytes/100 leukoc yteson 01-06-2022 Lymphocytes/100 WBC (Bld) 9.0 % 19-41 [facility] Work Phone: Blood monocytes/100 leukocyt eson 01-06-2022 Monocytes/100 WBC (Bld) 11.3 % 0-10 [facility] Work Phone: Blood platelet mean volumeon 01-06-2022 Platelet mean volume (Bld) [Entitic vol] 9.6 fL 6.2-12.0 [facility] Work Phone: Determination of erythrocyte mean corpuscular volume (MCV)on 01-06-2022 MCV (RBC) [Entitic vol] 89.3 fL 80-94 [facility] Work Phone: Hematocrit Auto (Bld) [Volum e fraction]on 01-06-2022 Hematocrit (Bld) [Volume fraction] 28.5 % 40-54 [facility] Work Phone: [phone] Laboratory - Hematology and Cell countson 01-06-2022 Erythrocyte distribution width (RBC) [Entitic vol] 58.8 fL 35.1-43.9 [facility] Work Phone: [phone] Erythrocyte distribution width (RBC) [Ratio] 18.6 % 11.6-14.6 [facility] Work Phone: [phone] Immature granulocytes/100 WBC (Bld) 0.900 % 0.0-0.9 [facility] Work Phone: [phone] Comment on above: IG% - Immature Granu locytes (promyelocytes, myelocytes and metamyelocytes) > 1% indicates that a LEFT SHIFT is Present. MCH (RBC) [Entitic mass] 27.0 pg 27.0-32.0 [facility] Work Phone: [phone] Nucleated RBC/100 WBC (Bld) [Ratio] 0 % 0-5 [facility] Work Phone: [phone] MCHC Auto (RBC) [Mass/Vol]on 01-06-2022 MCHC (RBC) [Mass/Vol] 30.2 g/dL 32-36 [facility] Work Phone: [phone] Platelets bldon 01-06-2022 Platelets (Bld) [#/Vol] 197 10*3/uL 150-450 [facility] Work Phone: [phone] Basophil percentageon 2021 Chloride [Moles/Vol] 115 mmol/L 98-107 [facility] Work Phone: [phone] Glucose [Mass/Vol] 98 mg/dL 74-[address] [facility] Work Phone: [phone] Potassium [Moles/Vol] 3.6 mmol/L 3.5-5.1 [facility] Work Phone: [phone] Sodium [Moles/Vol] 142 mmol/L 136-[address] [facility] Work Phone: [phone] Laboratory - Chemistry and C hemistry - challengeon 01-05-2022 CO2 [Moles/Vol] 21.0 mmol/L 21.0-32.0 [facility] Work Phone: Urea nitrogen/Creatinine [Mass ratio] 15.7 mg/mg 10-20 [facility] Work Phone: No Panel Informationon 01-05 Estimated Creatinine Clearance Calc 23.56 ml/min [facility] Work Phone: [phone] Estimated GFR (MDRD) Amer 25 mL/min >60 [facility] Work Phone: Comment on above: GFR Calc Estimated GFR (MDRD) Non-Af Amer 20 mL/min >60 [facility] Work Phone: Comment on above: Non- GFR Calc Serum or plasma calcium joshua urement (mass/volume)on 01-05-2022 Calcium [Mass/Vol] 8.4 mg/dL 8.5-10.[address] [facility] Work Phone: Serum or plasma creatinine m easurement (mass/volume)on 01-05-2022 Creatinine [Mass/Vol] 3.24 mg/dL 0.70-1.30 [facility] Work Phone: Comment on above: The validity of the calculated GFR & GFRAA in patients over 70 years has not been determined. Clinical correlation is essential. Serum or plasma urea nitroge n measurement (mass/volume)on 01-05-2022 Urea nitrogen [Mass/Vol] 51 mg/dL 7-18 [facility] Work Phone: [phone] Thin prep Papanicolaou smear with manual screeningon 01-05-2022 Thin prep Papanicolaou smear with manual screening 6 5-15 [facility] Work Phone: [phone] Basophil percentageon 2021 Bilirubin [Mass/Vol] 2.30 mg/dL 0.20-1.00 [facility] Work Phone: Comment on above: For patients on eltr ombopag therapy, use of Dimension [place] TBIL is not recommended. Protein [Mass/Vol] 5.6 g/dL 6.4-8.[address] [facility] Work Phone: Blood manual differential co mment interpretation (narrative result)on 01-04-2022 Manual differential comment Luis Fernando (Bld) [Interp] SCANNED [facility] Work Phone: Comment on above: LYMPHOPENIA NOTED Hypochromatic red blood cell detectionon 01-04-2022 Hypochromia Ql (Bld) 1+ [facility] Work Phone: Laboratory - Chemistry and C hemistry - challengeon 01-04-2022 ALP [Catalytic activity/Vol] 53 U/L 45-117 [facility] Work Phone: ALT [Catalytic activity/Vol] 27 U/L 16-61 [facility] Work Phone: [phone] Globulin (S) [Mass/Vol] 3.1 g/dL 2.2-4.2 [facility] Work Phone: Laboratory - Hematology and Cell countson 01-04-2022 Anisocytosis Ql (Bld) 1+ [facility] Work Phone: Serum or plasma albumin joshua urement (mass/volume)on 01-04-2022 Albumin [Mass/Vol] 2.5 g/dL 3.2-5.[address] [facility] Work Phone: Serum or plasma albumin/glob ulin mass ratioon 01-04-2022 Albumin/Globulin [Mass ratio] 0.8 {ratio} 0.9-2.4 [facility] Work Phone: Thin prep Papanicolaou smear with manual screeningon 01-04-2022 Thin prep Papanicolaou smear with manual screening 34 U/L 15-37 [facility] Work Phone: Absolute lymphocyte counton 01-03-2022 Lymphocytes Auto (Unsp spec) [#/Vol] 0.47 10*3/uL 0.83-4.51 [facility] Work Phone: Basophil percentageon 06-11- 2022 Basophils/100 WBC (Bld) 0.2 % 0-1 [facility] Work Phone: Bilirubin [Mass/Vol] 2.60 mg/dL 0.20-1.00 [facility] Work Phone: Comment on above: For patients on eltr ombopag therapy, use of Dimension [place] TBIL is not recommended. Chloride [Moles/Vol] 110 mmol/L 98-107 [facility] Work Phone: Eosinophils/100 WBC (Bld) 2.0 % 0-5 [facility] Work Phone: Glucose [Mass/Vol] 123 mg/dL 74-[address] [facility] Work Phone: Comment on above: Fasting Glucose resu lt from 100 to 125 mg/dL suggests IMPAIRED HOMEOSTASIS per A.D.A. criteria. Lactate [Moles/Vol] 0.5 mmol/L 0.4-2.0 [facility] Work Phone: Neutrophils (Bld) [#/Vol] 7.7 10*3/uL 2.0-7.7 [facility] Work Phone: Neutrophils/100 WBC (Bld) 83.2 % 47-70 [facility] Work Phone: Potassium [Moles/Vol] 4.4 mmol/L 3.5-5.1 [facility] Work Phone: Comment on above: Moderate Hemolysis, Result may be falsely increased. Protein [Mass/Vol] 6.5 g/dL 6.4-8.[address] [facility] Work Phone: Sodium [Moles/Vol] 139 mmol/L 136-[address] [facility] Work Phone: WBC (Bld) [#/Vol] 9.2 10*3/uL 4.4-11.[address] [facility] Work Phone: Blood erythrocytes count (nu mber/volume)on 01-03-2022 RBC (Bld) [#/Vol] 3.36 10*6/uL 4.6-6.2 [facility] Work Phone: [phone] Blood hemoglobin measurement (mass/volume)on 01-03-2022 Hemoglobin (Bld) [Mass/Vol] 9.0 g/dL 13.0-16.5 [facility] Work Phone: Blood lymphocytes/100 leukoc yteson 01-03-2022 Lymphocytes/100 WBC (Bld) 5.1 % 19-41 [facility] Work Phone: [phone] Blood monocytes/100 leukocyt eson 01-03-2022 Monocytes/100 WBC (Bld) 8.6 % 0-10 [facility] Work Phone: [phone] Blood platelet adequacy dete ction by light microscopyon 01-03-2022 Platelets LM Ql (Bld) ADEQUATE ADEQ [facility] Work Phone: [phone] Blood platelet mean volumeon 01-03-2022 Platelet mean volume (Bld) [Entitic vol] 10.7 fL 6.2-12.0 [facility] Work Phone: Determination of erythrocyte mean corpuscular volume (MCV)on 01-03-2022 MCV (RBC) [Entitic vol] 88.1 fL 80-94 [facility] Work Phone: Hematocrit Auto (Bld) [Volum e fraction]on 01-03-2022 Hematocrit (Bld) [Volume fraction] 29.6 % 40-54 [facility] Work Phone: Laboratory - Chemistry and C hemistry - challengeon 01-03-2022 ALP [Catalytic activity/Vol] 63 U/L 45-117 [facility] Work Phone: ALT [Catalytic activity/Vol] 35 U/L 16-61 [facility] Work Phone: [phone] CO2 [Moles/Vol] 20.0 mmol/L 21.0-32.0 [facility] Work Phone: [phone] Globulin (S) [Mass/Vol] 3.5 g/dL 2.2-4.2 [facility] Work Phone: Lipase [Catalytic activity/Vol] 225 U/L 73-393 [facility] Work Phone: [phone] Urea nitrogen/Creatinine [Mass ratio] 15.4 mg/mg 10-20 [facility] Work Phone: [phone] Laboratory - Hematology and Cell countson 01-03-2022 Anisocytosis Ql (Bld) 1+ [facility] Work Phone: [phone] Erythrocyte distribution width (RBC) [Entitic vol] 55.0 fL 35.1-43.9 [facility] Work Phone: [phone] Erythrocyte distribution width (RBC) [Ratio] 18.1 % 11.6-14.6 [facility] Work Phone: [phone] Immature granulocytes/100 WBC (Bld) 0.900 % 0.0-0.9 [facility] Work Phone: [phone] Comment on above: IG% - Immature Granu locytes (promyelocytes, myelocytes and metamyelocytes) > 1% indicates that a LEFT SHIFT is Present. MCH (RBC) [Entitic mass] 26.8 pg 27.0-32.0 [facility] Work Phone: [phone] Nucleated RBC/100 WBC (Bld) [Ratio] 0 % 0-5 [facility] Work Phone: [phone] MCHC Auto (RBC) [Mass/Vol]on 01-03-2022 MCHC (RBC) [Mass/Vol] 30.4 g/dL 32-36 [facility] Work Phone: [phone] Panel Informationon 01-03 SARS-CoV-2 & FLU Antigen (Rapid) [facility] Work Phone: [phone] Estimated Creatinine Clearance Calc 19.63 ml/min [facility] Work Phone: [phone] Estimated GFR (MDRD) Amer 20 mL/min >60 [facility] Work Phone: [phone] Comment on above: GFR Calc Estimated GFR (MDRD) Non-Af Amer 17 mL/min >60 [facility] Work Phone: [phone] Comment on above: Non- GFR Calc Platelets bldon 01-03-2022 Platelets (Bld) [#/Vol] 181 10*3/uL 150-450 [facility] Work Phone: [phone] Serum or plasma albumin joshua urement (mass/volume)on 01-03-2022 Albumin [Mass/Vol] 3.0 g/dL 3.2-5.[address] [facility] Work Phone: [phone] Serum or plasma albumin/glob ulin mass ratioon 01-03-2022 Albumin/Globulin [Mass ratio] 0.9 {ratio} 0.9-2.4 [facility] Work Phone: [phone] Serum or plasma calcium joshua urement (mass/volume)on 01-03-2022 Calcium [Mass/Vol] 9.1 mg/dL 8.5-10.[address] [facility] Work Phone: [phone] Serum or plasma creatinine m easurement (mass/volume)on 01-03-2022 Creatinine [Mass/Vol] 3.89 mg/dL 0.70-1.30 [facility] Work Phone: Comment on above: The validity of the calculated GFR & GFRAA in patients over 70 years has not been determined. Clinical correlation is essential. Serum or plasma urea nitroge n measurement (mass/volume)on 01-03-2022 Urea nitrogen [Mass/Vol] 60 mg/dL 7-18 [facility] Work Phone: [phone] Thin prep Papanicolaou smear with manual screeningon 01-03-2022 Thin prep Papanicolaou smear with manual screening 66 U/L 15-37 [facility] Work Phone: [phone] Comment on above: Moderate Hemolysis, Result may be falsely increased. Thin prep Papanicolaou smear with manual screening 9 5-15 [facility] Work Phone: [phone] Absolute lymphocyte counton 01-01-2022 Lymphocytes Auto (Unsp spec) [#/Vol] 0.44 10*3/uL 0.83-4.51 [facility] Work Phone: [phone] Basophil percentageon 2021 Basophils/100 WBC (Bld) 0.3 % 0-1 [facility] Work Phone: Chloride [Moles/Vol] 109 mmol/L 98-107 [facility] Work [facility]: Eosinophils/100 WBC (Bld) 3.4 % 0-5 [facility] Work Phone: Glucose [Mass/Vol] 123 mg/dL 74-[address] [facility] Work Phone: Comment on above: Fasting Glucose resu lt from 100 to 125 mg/dL suggests IMPAIRED HOMEOSTASIS per A.D.A. criteria. Neutrophils (Bld) [#/Vol] 5.3 10*3/uL 2.0-7.7 [facility] Work Phone: Neutrophils/100 WBC (Bld) 79.3 % 47-70 [facility] Work Phone: Potassium [Moles/Vol] 3.9 mmol/L 3.5-5.1 [facility] Work Phone: Sodium [Moles/Vol] 138 mmol/L 136-[address] [facility] Work Phone: WBC (Bld) [#/Vol] 6.7 10*3/uL 4.4-11.[address] [facility] Work Phone: Blood erythrocytes count (nu mber/volume)on 01-01-2022 RBC (Bld) [#/Vol] 2.97 10*6/uL 4.6-6.2 [facility] Work Phone: Blood hemoglobin measurement (mass/volume)on 01-01-2022 Hemoglobin (Bld) [Mass/Vol] 7.9 g/dL 13.0-16.5 [facility] Work Phone: Blood lymphocytes/100 leukoc yteson 01-01-2022 Lymphocytes/100 WBC (Bld) 6.5 % 19-41 [facility] Work Phone: Blood manual differential co mment interpretation (narrative result)on 06-09-2022 Manual differential comment Luis Fernando (Bld) [Interp] SCANNED [facility] Work Phone: Blood monocytes/100 leukocyt eson 01-01-2022 Monocytes/100 WBC (Bld) 10.1 % 0-10 [facility] Work Phone: [phone] Blood platelet mean volumeon 01-01-2022 Platelet mean volume (Bld) [Entitic vol] 9.3 fL 6.2-12.0 [facility] Work Phone: Determination of erythrocyte mean corpuscular volume (MCV)on 01-01-2022 MCV (RBC) [Entitic vol] 87.5 fL 80-94 [facility] Work Phone: Glucose Glucometer (BldC) [M ass/Vol]on 01-01-2022 Glucose [Mass/Vol] 143 mg/dL 74-[address] [facility] Work Phone: Comment on above: MANAGEMENT OF PATIEN T CARE PER NURSING PROTOCOL Hematocrit Auto (Bld) [Volum e fraction]on 01-01-2022 Hematocrit (Bld) [Volume fraction] 26.0 % 40-54 [facility] Work Phone: Laboratory - Chemistry and C hemistry - challengeon 01-01-2022 CO2 [Moles/Vol] 23.0 mmol/L 21.0-32.0 [facility] Work Phone: [phone] Urea nitrogen/Creatinine [Mass ratio] 15.3 mg/mg 10-20 [facility] Work Phone: [phone] Laboratory - Hematology and Cell countson 01-01-2022 Erythrocyte distribution width (RBC) [Entitic vol] 53.3 fL 35.1-43.9 [facility] Work Phone: [phone] Erythrocyte distribution width (RBC) [Ratio] 17.3 % 11.6-14.6 [facility] Work Phone: [phone] Immature granulocytes/100 WBC (Bld) 0.400 % 0.0-0.9 [facility] Work Phone: [phone] Comment on above: IG% - Immature Granu locytes (promyelocytes, myelocytes and metamyelocytes) > 1% indicates that a LEFT SHIFT is Present. MCH (RBC) [Entitic mass] 26.6 pg 27.0-32.0 [facility] Work Phone: Nucleated RBC/100 WBC (Bld) [Ratio] 0 % 0-5 [facility] Work Phone: MCHC Auto (RBC) [Mass/Vol]on 01-01-2022 MCHC (RBC) [Mass/Vol] 30.4 g/dL 32-36 [facility] Work Phone: No Panel Informationon 01-01 Estimated Creatinine Clearance Calc 17.43 ml/min [facility] Work Phone: Estimated GFR (MDRD) Amer 17 mL/min >60 [facility] Work Phone: Comment on above: GFR Calc Estimated GFR (MDRD) Non-Af Amer 14 mL/min >60 [facility] Work Phone: Comment on above: Non- GFR Calc Platelets bldon 01-01-2022 Platelets (Bld) [#/Vol] 192 10*3/uL 150-450 [facility] Work Phone: Serum or plasma calcium joshua urement (mass/volume)on 01-01-2022 Calcium [Mass/Vol] 8.3 mg/dL 8.5-10.[address] [facility] Work Phone: [phone] Serum or plasma creatinine m easurement (mass/volume)on 01-01-2022 Creatinine [Mass/Vol] 4.38 mg/dL 0.70-1.30 [facility] Work Phone: Comment on above: The validity of the calculated GFR & GFRAA in patients over 70 years has not been determined. Clinical correlation is essential. Serum or plasma urea nitroge n measurement (mass/volume)on 01-01-2022 Urea nitrogen [Mass/Vol] 67 mg/dL 7-18 [facility] Work Phone: [phone] Thin prep Papanicolaou smear with manual screeningon 01-01-2022 Thin prep Papanicolaou smear with manual screening 6 5-15 [facility] Work Phone: Iron measurement (mass/mass) on 12-31-2021 Iron (Unsp spec) [Mass/Mass] 35 ug/dL 65-175 [facility] Work Phone: Laboratory - Chemistry and C hemistry - challengeon 12-31-2021 Cobalamin (Vitamin B12) [Mass/Vol] 1054 pg/mL 211-911 [facility] Work Phone: [phone] Panel Informationon 12-31 Total Iron Binding Capacity 254 ug/dL 250-450 [facility] Work Phone: Serum or plasma ferritin graham surement (mass/volume)on 12-31-2021 Ferritin [Mass/Vol] 55 ng/mL 26-388 [facility] Work Phone: Serum or plasma folate measu rement (mass/volume)on 12-31-2021 Folate [Mass/Vol] 11.10 ng/mL 3.1-55.[address] [facility] Work Phone: Serum or plasma iron saturat ion measurement (mass fraction)on 12-31-2021 Iron saturation [Mass fraction] 13.8 % 15.0-55.0 [facility] Work Phone: Basophil percentageon 2021 Bilirubin [Mass/Vol] 0.80 mg/dL 0.20-1.00 [facility] Work Phone: Comment on above: For patients on eltr ombopag therapy, use of Dimension [place] TBIL is not recommended. Protein [Mass/Vol] 5.8 g/dL 6.4-8.[address] [facility] Work Phone: INR in Blood by Coagulation assayon 12-30-2021 INR Coag (Bld) [Relative time] 1.6 {INR} [facility] Work Phone: Laboratory - Chemistry and C hemistry - challengeon 12-30-2021 ALP [Catalytic activity/Vol] 48 U/L 45-117 [facility] Work Phone: ALT [Catalytic activity/Vol] 11 U/L 16-61 [facility] Work Phone: [phone] Globulin (S) [Mass/Vol] 3.3 g/dL 2.2-4.2 [facility] Work Phone: Laboratory - Coagulationon 0 12-30-2021 PT Coag (PPP) [Time] 18.7 s 11.7-14.[address] [facility] Work Phone: [phone] Serum or plasma albumin joshua urement (mass/volume)on 12-30-2021 Albumin [Mass/Vol] 2.5 g/dL 3.2-5.0 [facility] Work Phone: Serum or plasma albumin/glob ulin mass ratioon 12-30-2021 Albumin/Globulin [Mass ratio] 0.8 {ratio} 0.9-2.4 [facility] Work Phone: Thin prep Papanicolaou smear with manual screeningon 12-30-2021 Thin prep Papanicolaou smear with manual screening 11 U/L 15-37 [facility] Work Phone: Culture, urineon 12-29-2021 Bacteria identified Cx Nom (U) Positive [facility] Work Phone: [phone] Laboratory - Chemistry and C hemistry - challengeon 12-29-2021 Lipase [Catalytic activity/Vol] 106 U/L 73-393 [facility] Work Phone: Basophil percentageon 2021 Lactate [Moles/Vol] 1.5 mmol/L 0.4-2.0 [address] [facility] Work Phone: [phone] Cholesterol [Mass/Vol] 122 mg/dL <200 [address] [facility] Work Phone: [phone] Comment on above: <200 mg/dL Desirable 200-240 mg/dL Borderline >240 mg/dL High Risk Triglyceride [Mass/Vol] 152 mg/dL <199 [facility] Work Phone: [phone] Comment on above: The drugs N-Acetylcy steine and Metamizole may falsely depress this assay.Serum Triglycerides Reference Interval Normal <150 mg/dL Borderline high 150 - 199 mg/dL High 200 - 499 mg/dL Very High > or = 500 mg/dL Direct bilirubinon Bilirubin.direct [Mass/Vol] 0.21 mg/dL 0.00-0.30 [facility] Work Phone: Hemoglobin in reticulocytes (mass per reticulocyte)on 12-28-2021 Hemoglobin (Reticulocytes) [Entitic mass] 24.6 pg 30-35 [facility] Work Phone: [phone] Laboratory - Chemistry and C hemistry - challengeon 12-28-2021 Free T4 [Mass/Vol] 1.23 ng/dL 0.76-1.[address] [facility] Work Phone: [phone] Panel Informationon 12-28 Immature Platelet Fraction See comment 1.0-7.9 [facility] Work Phone: Comment on above: Severe [...] marrow. Immature Reticulocyte Fraction 36.70 % 3.00-15.90 [facility] Work Phone: [phone] Reticulocyte Count 3.74 % 0.5-1.[address] [facility] Work Phone: [phone] Thyroid Stimulating Hormone (TSH) 4.53 uIU/mL 0.358-3.74 [facility] Work Phone: [phone] Serum or plasma cholesterol in HDL measurement (mass/volume)on 12-28-2021 Cholesterol in HDL [Mass/Vol] 36 mg/dL >40 [facility] Work Phone: Comment on above: The drugs N-Acetylcy steine and Metamizole may falsely depress this assay. Reference Range HDL <40 mg/dL Low HDL Cholesterol HDL >or= 60 mg/dL High HDL Cholesterol Serum or plasma cholesterol in VLDL measurement (mass/volume)on 12-28-2021 Cholesterol in VLDL [Mass/Vol] 30 mg/dL 5-40 [facility] Work Phone: Serum or plasma low density lipoprotein (LDL) cholesterol measurement (mass/volume)on 12-28-2021 Cholesterol in LDL [Mass/Vol] 56 mg/dL 0-130 [facility] Work Phone: Thin prep Papanicolaou smear with manual screeningon 12-28-2021 Thin prep Papanicolaou smear with manual screening 133 U/L 87-241 [facility] Work Phone: Basophil percentageon 2021 Basophil percentage 0 SEEN /hpf 0-5 [facility] Work Phone: Basophil percentage 4.5 mg/dL 2.5-4.9 [facility] Work Phone: Bilirubin Test strip Ql (U)o n 12-27-2021 Bilirubin Ql (U) Negative Negative [facility] Work Phone: Ketones Test strip Ql (U)on 12-27-2021 Ketones Ql (U) Negative Negative [facility] Work Phone: Laboratory - Chemistry and C hemistry - challengeon 12-27-2021 Magnesium [Mass/Vol] 1.8 mg/dL 1.6-2.6 [facility] Work Phone: Natriuretic peptide B (Bld) [Mass/Vol] 703.0 pg/mL 0-100 [facility] Work Phone: Laboratory - Microbiology an d Antimicrobial susceptibilityon 12-27-2021 Bacteria identified Cx Nom (Bld) No growth in 5 days. [facility] Work Phone: Mucus LM Ql (Urine sed)on Mucus Ql (Urine sed) 0 SEEN /hpf [facility] Work Phone: Nitrite Test strip Ql (U)on 12-27-2021 Nitrite Ql (U) Negative Negative [facility] Work Phone: No Panel Informationon 12-27 Troponin I High Sensitivity 16 pg/mL 3.0-78.0 [facility] Work Phone: Comment on above: Please Note: New [place] t Units and Gender Specific Reference Ranges. For more information see Policy Stat Procedure [place] High Sensitivity Troponin (TNIH) and attachments. Protein Test strip Ql (U)on 12-27-2021 Protein Ql (U) 500 mg/dl Negative [facility] Work Phone: Squamous epithelial cells de tection in urine sediment by light microscopyon 12-27-2021 Epithelial cells.squamous LM Ql (Urine sed) 0 SEEN /hpf 0-5 [facility] Work Phone: Urine blood detectionon RBC Ql (U) 25 /ul Negative [facility] Work Phone: RBC Ql (U) 0-5 SEEN /hpf 0-5 [facility] Work Phone: Urine clarityon 12-27-2021 Clarity (U) Clear Clear [facility] Work Phone: Urine color determinationon 12-27-2021 Color (U) Yellow Yellow [facility] Work Phone: Urine glucose detectionon Glucose Ql (U) Normal mg/dl Normal [facility] Work Phone: Urine leukocyte esterase det ection by dipstickon 12-27-2021 Leukocyte esterase Test strip Ql (U) Negative Negative [facility] Work Phone: Urine pHon 12-27-2021 pH (U) 6.0 [pH] 5.0 - 8.0 [facility] Work Phone: Urine sediment bacteria coun t by microscopy (number/high power field)on 12-27-2021 Bacteria LM.HPF (Urine sed) [#/Area] 0 /[HPF] None Seen [facility] Work Phone: Urine specific gravity measu rementon 12-27-2021 Specific gravity (U) [Rel density] 1.020 1.002-1.030 [facility] Work Phone: Urobilinogen Auto test strip Ql (U)on 12-27-2021 Urobilinogen Ql (U) Normal mg/dl Normal [facility] Work Phone: Laboratory - Chemistry and C hemistry - challengeon 12-23-2021 Natriuretic peptide B (Bld) [Mass/Vol] 1216.5 pg/mL 0-100 [facility] Work Phone: Basophil percentageon 2021 Basophil percentage 4.0 mg/dL 2.5-4.9 [facility] Work Phone: Chloride [Moles/Vol] 108 mmol/L 98-107 [facility] Work Phone: Glucose [Mass/Vol] 168 mg/dL 74-[address] [facility] Work Phone: Comment on above: Fasting Glucose resu lt greater than or equal to 126 mg/dL suggests DIABETES MELLITUS per A.D.A. criteria. Potassium [Moles/Vol] 3.9 mmol/L 3.5-5.1 [facility] Work Phone: Sodium [Moles/Vol] 139 mmol/L 136-[address] [facility] Work Phone: Laboratory - Chemistry and C hemistry - challengeon 11-05-2021 CO2 [Moles/Vol] 25.0 mmol/L 21.0-32.0 [facility] Work Phone: Urea nitrogen/Creatinine [Mass ratio] 17.1 mg/mg 10-20 [facility] Work Phone: No Panel Informationon 11-05 Estimated GFR (MDRD) Amer 23 mL/min >60 [facility] Work Phone: Comment on above: GFR Calc Estimated GFR (MDRD) Non-Af Amer 19 mL/min >60 [facility] Work Phone: Comment on above: Non- GFR Calc Serum or plasma albumin joshua urement (mass/volume)on 11-05-2021 Albumin [Mass/Vol] 2.6 g/dL 3.2-5.[address] [facility] Work Phone: Serum or plasma calcium joshua urement (mass/volume)on 11-05-2021 Calcium [Mass/Vol] 8.6 mg/dL 8.5-10.[address] [facility] Work Phone: Serum or plasma creatinine m easurement (mass/volume)on 11-05-2021 Creatinine [Mass/Vol] 3.39 mg/dL 0.70-1.30 [facility] Work Phone: Comment on above: The validity of the calculated GFR & GFRAA in patients over 70 years has not been determined. Clinical correlation is essential. Serum or plasma urea nitroge n measurement (mass/volume)on 11-05-2021 Urea nitrogen [Mass/Vol] 58 mg/dL 7-18 [facility] Work Phone: Urine creatinine measurement (mass/volume)on 11-05-2021 Creatinine (U) [Mass/Vol] 79.30 mg/dL NO RANGE EST. [facility] Work Phone: Urine protein measurement (m ass/volume)on 11-05-2021 Protein (U) [Mass/Vol] 339.4 mg/dL 0.0-11.8 [facility] Work Phone: Urine protein/creatinine mas s ratioon 11-05-2021 Protein/Creatinine (U) [Mass ratio] 4280 mg/g CRE 0-200 [facility] Work Phone: Absolute lymphocyte counton 09-25-2021 Lymphocytes Auto (Unsp spec) [#/Vol] 0.40 10*3/uL 0.83-4.51 [facility] Work Phone: [phone] Basophil percentageon 2021 Basophils/100 WBC (Bld) 0.4 % 0-1 [facility] Work Phone: [phone] Bilirubin [Mass/Vol] 0.50 mg/dL 0.20-1.00 [facility]: Comment on above: For patients on eltr ombopag therapy, use of Dimension [place] TBIL is not recommended. Chloride [Moles/Vol] 111 mmol/L 98-107 [facility] Work Phone: Eosinophils/100 WBC (Bld) 0.9 % 0-5 [facility] Work Phone: Glucose [Mass/Vol] 305 mg/dL 74-[address] [facility] Work Phone: Comment on above: Glucose result great er than or equal to 200 mg/dLsuggests DIABETES MELLITUS per A.D.A. criteria. Neutrophils (Bld) [#/Vol] 6.9 10*3/uL 2.0-7.7 [facility] Work Phone: Neutrophils/100 WBC (Bld) 89.3 % 47-70 [facility] Work Phone: Potassium [Moles/Vol] 4.6 mmol/L 3.5-5.1 [facility] Work Phone: Protein [Mass/Vol] 5.7 g/dL 6.4-8.[address] [facility] Work Phone: Sodium [Moles/Vol] 140 mmol/L 136-[address] [facility] Work Phone: WBC (Bld) [#/Vol] 7.8 10*3/uL 4.4-11.[address] [facility] Work Phone: Blood erythrocytes count (nu mber/volume)on 09-25-2021 RBC (Bld) [#/Vol] 3.47 10*6/uL 4.6-6.2 [facility] Work Phone: Blood hemoglobin measurement (mass/volume)on 09-25-2021 Hemoglobin (Bld) [Mass/Vol] 10.3 g/dL 13.0-16.5 [facility] Work Phone: Blood lymphocytes/100 leukoc yteson 09-25-2021 Lymphocytes/100 WBC (Bld) 5.1 % 19-41 [facility] Work Phone: Blood manual differential co mment interpretation (narrative result)on 09-25-2021 Manual differential comment Luis Fernando (Bld) [Interp] See comment [facility] Comment on above: LYMPHOPENIA Blood monocytes/100 leukocyt eson 09-25-2021 Monocytes/100 WBC (Bld) 3.0 % 0-10 [facility] Work Phone: Blood platelet mean volumeon 09-25-2021 Platelet mean volume (Bld) [Entitic vol] 10.1 fL 6.2-12.0 [facility] Work Phone: Determination of erythrocyte mean corpuscular volume (MCV)on 09-25-2021 MCV (RBC) [Entitic vol] 93.1 fL 80-94 [facility] Work Phone: Hematocrit Auto (Bld) [Volum e fraction]on 09-25-2021 Hematocrit (Bld) [Volume fraction] 32.3 % 40-54 [facility] Work Phone: Laboratory - Chemistry and C hemistry - challengeon 09-25-2021 ALP [Catalytic activity/Vol] 60 U/L 45-117 [facility] Work Phone: ALT [Catalytic activity/Vol] 17 U/L 16-61 [facility] Work Phone: CO2 [Moles/Vol] 23.0 mmol/L 21.0-32.0 [facility] Work Phone: Globulin (S) [Mass/Vol] 3.6 g/dL 2.2-4.2 [facility] Work Phone: Urea nitrogen/Creatinine [Mass ratio] 18.2 mg/mg 10-20 [facility] Work Phone: Laboratory - Hematology and Cell countson 09-25-2021 Erythrocyte distribution width (RBC) [Entitic vol] 60.7 fL 35.1-43.9 [facility] Work Phone: [phone] Erythrocyte distribution width (RBC) [Ratio] 18.0 % 11.6-14.6 [facility] Work Phone: Immature granulocytes/100 WBC (Bld) 1.300 % 0.0-0.9 [facility] Work Phone: Comment on above: IG% - Immature Granu locytes (promyelocytes, myelocytes and metamyelocytes) > 1% indicates that a LEFT SHIFT is Present. MCH (RBC) [Entitic mass] 29.7 pg 27.0-32.0 [facility] Work Phone: Nucleated RBC/100 WBC (Bld) [Ratio] 0 % 0-5 [facility] Work Phone: MCHC Auto (RBC) [Mass/Vol]on 09-25-2021 MCHC (RBC) [Mass/Vol] 31.9 g/dL 32-36 [facility] Work Phone: Manual differential comment Luis Fernando (Bld) [Interp]on 09-25-2021 Differential Comment See comment [facility] Comment on above: LYMPHOPENIA Blood manual differential comment interpretation (narrative result) See comment [facility] No Panel Informationon 09-25 Estimated Creatinine Clearance Calc 24.65 ml/min [facility] Work Phone: Estimated GFR (MDRD) Amer 26 mL/min >60 [facility] Work Phone: Comment on above: GFR Calc Estimated GFR (MDRD) Non-Af Amer 21 mL/min >60 [facility] Work Phone: Comment on above: Non- GFR Calc Parathyroid Hormone (Intact) 137.5 pg/mL High 18.4-80.1 [facility] 137.5 pg/mL High 18.4-80.1 [facility] Platelets bldon 09-25-2021 Platelets (Bld) [#/Vol] 257 10*3/uL 150-450 [facility] Work Phone: Serum or plasma albumin joshua urement (mass/volume)on 09-25-2021 Albumin [Mass/Vol] 2.1 g/dL 3.2-5.[address] [facility] Work Phone: Serum or plasma albumin/glob ulin mass ratioon 09-25-2021 Albumin/Globulin [Mass ratio] 0.6 {ratio} 0.9-2.4 [facility] Work Phone: [phone] Serum or plasma calcium joshua urement (mass/volume)on 09-25-2021 Calcium [Mass/Vol] 8.2 mg/dL 8.5-10.[address] [facility] Work Phone: [phone] Serum or plasma creatinine m easurement (mass/volume)on 09-25-2021 Creatinine [Mass/Vol] 3.14 mg/dL 0.70-1.30 [facility] Work Phone: Comment on above: The validity of the calculated GFR & GFRAA in patients over 70 years has not been determined. Clinical correlation is essential. Serum or plasma urea nitroge n measurement (mass/volume)on 09-25-2021 Urea nitrogen [Mass/Vol] 57 mg/dL 7-18 [facility] Work Phone: Thin prep Papanicolaou smear with manual screeningon 09-25-2021 Thin prep Papanicolaou smear with manual screening 13 U/L 15-37 [facility] Work Phone: [phone] Thin prep Papanicolaou smear with manual screening 6 5-15 [facility] Work Phone: Thin prep Papanicolaou smear with manual screening 232 U/L 87-241 [facility] Work Phone: [phone] Urine creatinine measurement (mass/volume)on 08-26-2021 Creatinine (U) [Mass/Vol] 56.20 mg/dL NO RANGE EST. [facility] Work Phone: [phone] Urine protein measurement (m ass/volume)on 08-26-2021 Protein (U) [Mass/Vol] 469.4 mg/dL 0.0-11.8 [facility] Work Phone: Urine protein/creatinine mas s ratioon 08-26-2021 Protein/Creatinine (U) [Mass ratio] 8352 mg/g CRE 0-200 [facility] Work Phone: Basophil percentageon 2021 Basophil percentage 0-5 SEEN /hpf 0-5 [facility] Bilirubin Test strip Ql (U)o n 07-31-2021 Bilirubin Ql (U) Negative Negative [facility] Blood platelet adequacy dete ction by light microscopyon 07-31-2021 Platelets LM Ql (Bld) ADEQUATE ADEQ [facility] Work Phone: Clarity (U)on 07-31-2021 Urine clarity Clear Clear [facility] Color (U)on 07-31-2021 Urine color determination Yellow Yellow [facility] Epithelial cells.squamous LM Ql (Urine sed)on 07-31-2021 Epithelial cells.squamous LM.HPF (Urine sed) [#/Area] 0 /[HPF] 0-5 [facility] Glucose Ql (U)on 07-31-2021 Glucose (U) [Mass/Vol] 50 mg/dL High Normal [facility] Urine glucose detection 50 mg/dl High Normal [facility] Ketones Test strip Ql (U)on 07-31-2021 Ketones Ql (U) Negative Negative [facility] Laboratory - Hematology and Cell countson 07-31-2021 Anisocytosis Ql (Bld) RARE [facility] Work Phone: Mucus LM Ql (Urine sed)on Mucus Ql (Urine sed) 0 SEEN /hpf [facility] Nitrite Test strip Ql (U)on 07-31-2021 Nitrite Ql (U) Negative Negative [facility] Protein Test strip Ql (U)on 07-31-2021 Protein Ql (U) 500 mg/dl High Negative [facility] Urine protein assay by test strip, semi-quantitative 500 mg/dl High Negative [facility] RBC Ql (U)on 07-31-2021 Urine Occult Blood 10 /ul High Negative [facility] Urine RBC 0 SEEN /hpf 0-5 [facility] 10 /ul High Negative [facility] RBC morphologyon 07-31-2021 RBC morphology finding Nom (Bld) N CHROM NORMAL NORM C&C [facility] RBC morphology finding Nom ( Bld)on 07-31-2021 Red Blood Cell Morphology N CHROM NORMAL NORM C&C [facility] RBC morphology N CHROM NORMAL NORM C&C [facility] Specific gravity (U) [Rel de nsity]on 07-31-2021 Urine specific gravity measurement 1.015 1.002-1.030 [facility] Squamous epithelial cells de tection in urine sediment by light microscopyon 07-31-2021 Epithelial cells.squamous LM Ql (Urine sed) 0 SEEN /hpf 0-5 [facility] Squamous epithelial cells detection in urine sediment by light microscopy 0 SEEN /hpf [facility] Trichomonas screening teston 07-31-2021 Urine WBC 0-5 SEEN /hpf 0-5 [facility] Trichomonas screening test 0-5 SEEN /hpf 0-5 [facility] Urine blood detectionon RBC Ql (U) 10 /ul High Negative [facility] RBC Ql (U) 0 SEEN /hpf 0-5 [facility] Urine clarityon 07-31-2021 Clarity (U) Clear Clear [facility] Urine color determinationon 07-31-2021 Color (U) Yellow Yellow [facility] Urine glucose detectionon Glucose Ql (U) 50 mg/dl High Normal [facility] Urine leukocyte esterase det ection by dipstickon 07-31-2021 Leukocyte esterase Test strip Ql (U) Negative Negative [facility] Urine pHon 07-31-2021 pH (U) 6.0 [pH] 5.0 - 8.0 [facility] Urine sediment bacteria coun t by microscopy (number/high power field)on 07-31-2021 Bacteria LM.HPF (Urine sed) [#/Area] 0 /[HPF] None Seen [facility] Urine specific gravity measu rementon 07-31-2021 Specific gravity (U) [Rel density] 1.015 1.002-1.030 [facility] Urine total bilirubin detect ion by test stripon 07-31-2021 Urine total bilirubin detection by test strip Negative Negative [facility] Urobilinogen Auto test strip Ql (U)on 07-31-2021 Urine Urobilinogen Normal mg/dl Normal [facility] Urobilinogen Ql (U) Normal mg/dl Normal [facility] Urine urobilinogen detection by automated test strip Normal mg/dl Normal [facility] pH (U)on 07-31-2021 Urine pH 6.0 5.0 - 8.0 [facility] 24 hour urine albumin/total protein ratio by electrophoresis (mass fraction)on 07-04-2021 Albumin Elph (24H U) [Mass fraction] 69.6 % . [facility] 24 hour urine alpha 1 globul in/total protein ratio by electrophoresis (mass fraction)on 07-04-2021 Alpha 1 globulin Elph (24H U) [Mass fraction] 1.4 % . [facility] 24 hour urine alpha 2 globul in/total protein ratio by electrophoresis (mass fraction)on 07-04-2021 Alpha 2 globulin Elph (24H U) [Mass fraction] 7.8 % . [facility] 24 hour urine creatinine graham surement (mass/time)on 07-04-2021 Creatinine (24H U) [Mass/Time] 1.10 g/24 HR 0.90-2.10 [facility] 24 hour urine protein measur ement (mass/time)on 07-04-2021 Protein (24H U) [Mass/Time] 36444 mg/24 hr High 30-150 [facility] 24 hour urine protein monocl onal measurement by electrophoresis (mass/time)on 07-04-2021 Protein.monoclonal Elph (24H U) [Mass/Time] TNP [facility] Comment on above: Test not performed Albumin Elph (24H U) [Mass f raction]on 07-04-2021 Urine Albumin 69.6 % . [facility] 24 hour urine albumin/total protein ratio by electrophoresis (mass fraction) 69.6 % . [facility] Alpha 1 globulin Elph (24H U ) [Mass fraction]on 07-04-2021 Urine Aeyqx-1-Agptbnst 1.4 % . [facility] 24 hour urine alpha 1 globulin/total protein ratio by electrophoresis (mass fraction) 1.4 % . [facility] Alpha 2 globulin Elph (24H U ) [Mass fraction]on 07-04-2021 Urine Ghhng-2-Mxbokkydc 7.8 % . [facility] 24 hour urine alpha 2 globulin/total protein ratio by electrophoresis (mass fraction) 7.8 % . [facility] Beta globulin Elph (U) [Mass /Vol]on 07-04-2021 Urine Beta Globulin 13.5 % . [facility] Urine beta globulin measurement by electrophoresis (mass/volume) 13.5 % . [facility] Collection duration (U)on Urine Collection Duration 24.0 HOURS 24.0-24.0 [facility] Urine Collection Time 24.0 HOURS 24.0-24.0 [facility] 24.0 HOURS 24.0-24.0 [facility] Creatinine (24H U) [Mass/John e]on 07-04-2021 Urine Creatinine 24 Hour 1.10 g/24 HR 0.90-2.10 [facility] 24 hour urine creatinine measurement (mass/time) 1.10 g/24 HR 0.90-2.10 [facility] Creatinine (U) [Mass/Vol]on 07-04-2021 Urine creatinine measurement (mass/volume) 39.70 mg/dL NO RANGE EST. [facility] Gamma globulin Elph (U) [Mas s/Vol]on 07-04-2021 Urine Gamma Globulin 7.7 % . [facility] Urine gamma globulin measurement by electrophoresis (mass/volume) 7.7 % . [facility] [employer] mix RAST testo n 07-04-2021 Urine Immunofixation Comment . [facility] Comment on above: No monoclonality det ected. [employer] mix RAST test Comment . [facility] Laboratory - Specimen inform ationon 07-04-2021 Collection duration (U) 24.0 HOURS 24.0-24.0 [facility] No Panel Informationon 07-04 Timed Urine Volume [address] [facility] Urine Immunofixation PEP Note Comment . [facility] Comment on above: Protein electrophore sis scan will follow via computer,mail, or upstairs maid delivery.Performed at: [address] [id number] Director: Piter Harrington PhD, Phone: [phone] 2775 mL [facility] Protein (24H U) [Mass/Time]o n 07-04-2021 Urine Total Protein 24 Hour 62700 mg/24 hr High 30-150 [facility] 24 hour urine protein measurement (mass/time) 70720 mg/24 hr High 30-150 [facility] Protein (U) [Mass/Vol]on Urine protein measurement (mass/volume) 417.1 mg/dL Not Estab. [facility] Protein.monoclonal Elph (24H U) [Mass/Time]on 07-04-2021 Ur Protein Electro M-Murphy 24 Hr TNP [facility] Comment on above: Test not performed 24 hour urine protein monoclonal measurement by electrophoresis (mass/time) [facility] Protein.monoclonal Elph (U) [Mass fraction]on 07-04-2021 Ur Protein Electrophoresis M-Murphy Not Observed % Not Observed [facility] Urine monoclonal protein/total protein mass ratio by electrophoresis Not Observed % Not Observed [facility] Specimen volume (U)on 2020 Urine Total Volume 2.[address] [facility] Urine volume measurement 2.80 L [facility] Thin prep Papanicolaou smear with manual screeningon 07-04-2021 Thin prep Papanicolaou smear with manual screening Comment . [facility] Comment on above: No monoclonality det ected. Urine beta globulin measurem ent by electrophoresis (mass/volume)on 07-04-2021 Beta globulin Elph (U) [Mass/Vol] 13.5 % . [facility] Urine creatinine measurement (mass/volume)on 07-04-2021 Creatinine (U) [Mass/Vol] 39.70 mg/dL NO RANGE EST. [facility] Urine gamma globulin measure ment by electrophoresis (mass/volume)on 07-04-2021 Gamma globulin Elph (U) [Mass/Vol] 7.7 % . [facility] Urine monoclonal protein/tot al protein mass ratio by electrophoresison 07-04-2021 Protein.monoclonal Elph (U) [Mass fraction] Not Observed % Not Observed [facility] Urine protein measurement (m ass/volume)on 07-04-2021 Protein (U) [Mass/Vol] 417.1 mg/dL Not Estab. [facility] Comment on above: Results confirmed on dilution. Urine volume measurementon 1 09-04-2020 Specimen volume (U) 2.80 L [facility] Basophil percentageon 2020 Basophil percentage 3.5 mg/dL 2.5-4.9 [facility] Work Phone: Laboratory - Chemistry and C hemistry - challengeon 07-02-2021 Cobalamin (Vitamin B12) [Mass/Vol] 573 pg/mL [facility] Magnesium [Mass/Vol] 2.2 mg/dL 1.6-2.6 [facility] No Panel Informationon 07-02 2.2 mg/dL 1.6-2.6 [facility] 573 pg/mL [facility] Hyaline casts LM.LPF (Urine sed) [#/Area]on 06-05-2021 Hyaline casts (Urine sed) [#/Area] 0 /[LPF] 0-5 [facility] Hyaline casts LM Ql (Urine sed) 0-5 SEEN /lpf 0-5 [facility] Urine sediment hyaline cast count by microscopy (number/low power field) 0-5 SEEN /lpf 0-5 [facility] No Panel Informationon 06-05 Thyroid Stimulating Hormone (TSH) 3.23 uIU/mL 0.358-3.74 [facility] Work Phone: Laboratory - Chemistry and C hemistry - challengeon 05-22-2021 Free T4 [Mass/Vol] 1.07 ng/dL 0.76-1.[address] [facility] Work Phone: C. difficile DNA TRICIA+probe Q l (Unsp spec)on 02-10-2021 C. difficile DNA Amplification [facility] Clostridioides difficile nuc leic acid assay by PCRon 02-10-2021 C. difficile DNA TRICIA+probe Ql (Unsp spec) [facility] EP Panelon 02-10-2021 Gastrointestinal pathogens panel TRICIA+probe (Stl) [facility] Gastrointestinal pathogens p richard TRICIA+probe (Stl)on 02-10-2021 Enteric Bacteriology [facility] Lactoferrin IA Ql (Stl)on Stool Lactoferrin [facility] Stool lactoferrin detection by immunoassayon 02-10-2021 Lactoferrin IA Ql (Stl) [facility] Serum or plasma uric acid me asurement (mass/volume)on 07-15-2021 Urate [Mass/Vol] 6.8 mg/dL 3.5-7.2 [facility] Comment on above: The drugs N-Acetylcy steine and Metamizole may falsely depress this assay. Urate [Mass/Vol]on 1 Serum or plasma uric acid measurement (mass/volume) 6.8 mg/dL 3.5-7.2 [facility] HbA1c (Bld) [Mass fraction]o n 12-07-2019 Whole blood hemoglobin A1c/total hemoglobin ratio (mass fraction) 8.0 % High 4.2-6.3 [facility] Whole blood hemoglobin A1c/t otal hemoglobin ratio (mass fraction)on 12-07-2019 HbA1c (Bld) [Mass fraction] 8.0 % High 4.2-6.3 [facility] Cortisol [Mass/Vol]on 2019 Cortisol 12.80 ug/dL 3.-. [facility] Comment on above: Adult (AM) 4.30 - 22 .40 ug/dL Adult (PM) 3.09 - 16.66 ug/dL Serum or plasma cortisol measurement (mass/volume) 12.80 ug/dL 3.04-16. [facility] Laboratory - Chemistry and C hemistry - challengeon 08-17-2019 Natriuretic peptide B (Bld) [Mass/Vol] 353.0 pg/mL [facility] 0-100 [facility] No Panel Informationon 08-17 Adrenocorticotropic Hormone 56.3 pg/mL 7.2-63.3 [facility] Comment on above: ACTH reference inter hayde for samples collected between 7 and10 AM.Performed at: - [facility] [id number] Director: Piter Harrington PhD, Phone: [phone] 353.0 pg/mL [facility] 0-100 [facility] 56.3 pg/mL 7.2-63.3 [facility] Serum or plasma cortisol graham surement (mass/volume)on 08-17-2019 Cortisol [Mass/Vol] 12.80 ug/dL 3.-22.40 [facility] Comment on above: Adult (AM) 4.30 - 22 .40 ug/dL Adult (PM) 3.09 - 16.66 ug/dL Culture, urine Bacteria identified Cx Nom (U) Positive [facility] Work Phone: Laboratory - Microbiology an d Antimicrobial susceptibility Bacteria identified Cx Nom (Bld) No growth in 5 days. [facility] Work Phone: No Panel Information SARS-CoV-2 & FLU Antigen (Rapid) [facility] Work Phone: Vital Signs Date Time Vital Sign Value Performing Clinician Facility 01-11-2025 11:53-0400 Body temperature 97.5 [degF] Diamond Lincoln MD Work Phone: [facility] 01-11-2025 11:53-0400 Diastolic blood pressure 72 mm[Hg] Diamond Lincoln MD Work Phone: [phone] [place] [address] 01-11-2025 11:53-0400 Heart rate 58 /min Diamond Lincoln MD Work Phone: [facility] 01-11-2025 11:53-0400 Respiratory rate 20 /min Diamond Lincoln MD Work Phone: [facility] 01-11-2025 11:53-0400 SaO2% (BldA) [Mass fraction] 98 % Diamond Lincoln MD Work Phone: [facility] 01-11-2025 11:53-0400 Systolic blood pressure 172 mm[Hg] Diamond Lincoln MD Work Phone: [facility] 01-10-2025 06:37-0400 Body mass index (BMI) [Ratio] 31.74 kg/m2 Diamond Lincoln MD Work Phone: [facility] 01-10-2025 06:37-0400 Body weight 106.19 kg Diamond Lincoln MD Work Phone: [facility] 01-09-2025 05:22-0400 Body height 182.9 cm Diamond Lincoln MD Work Phone: [facility] 01-09-2025 04:00-0400 Diastolic blood pressure 87 mm[Hg] Isabella Cruz MD Work Phone: [facility] 01-09-2025 04:00-0400 Heart rate 77 /min Isabella Cruz MD Work Phone: [facility] 01-09-2025 04:00-0400 Respiratory rate 23 /min Isabella Cruz MD Work Phone: [facility] 01-09-2025 04:00-0400 SaO2% (BldA) [Mass fraction] 92 % Isabella Cruz MD Work Phone: [facility] 01-09-2025 04:00-0400 Systolic blood pressure 175 mm[Hg] Isabella Cruz MD Work Phone: [facility] 01-08-2025 21:36-0400 Body temperature 97.39 [degF] Isabella Cruz MD Work Phone: [facility] 01-08-2025 21:32-0400 Body height 182.9 cm Isabella Cruz MD Work Phone: [facility] 01-08-2025 19:00-0400 Diastolic blood pressure 86 mm[Hg] Dr. Sam Del Toro DO Work Phone: [facility] 01-08-2025 19:00-0400 Heart rate 69 /min Dr. Sam Del Toro DO Work Phone: [facility] 01-08-2025 19:00-0400 Respiratory rate 20 /min Dr. Sam Del Toro DO Work Phone: [facility] 01-08-2025 19:00-0400 SaO2% (BldA) [Mass fraction] 94 % Dr. Sam Del Toro DO Work Phone: [facility] 01-08-2025 19:00-0400 Systolic blood pressure 166 mm[Hg] Dr. Sam Del Toro DO Work Phone: [facility] 01-08-2025 16:38-0400 Body temperature 98.1 [degF] Dr. Sam Del Toro DO Work Phone: [facility] 01-08-2025 09:29-0400 Body height 180.[address] Sam Del Toro DO Work Phone: [facility] 01-08-2025 09:29-0400 Body mass index (BMI) [Ratio] 34 kg/m2 Dr. Sam Del Toro DO Work Phone: [facility] 01-08-2025 09:29-0400 Body weight 110.[address] Sam Del Toro DO Work Phone: [facility] 12-29-2024 09:02-0400 Body mass index (BMI) [Ratio] 31.6 kg/m2 Andrea Farris MD, PhD Work Phone: [facility] 12-29-2024 09:02-0400 Body temperature 97.9 [degF] Andrea Farris MD, PhD Work Phone: [facility] 12-29-2024 09:02-0400 Body weight 105.69 kg Andrea Farris MD, PhD Work Phone: [facility] 12-29-2024 09:02-0400 Diastolic blood pressure 69 mm[Hg] Andrea Farris MD, PhD Work Phone: [facility] 12-29-2024 09:02-0400 Heart rate 84 /min Andrea Farris MD, PhD Work Phone: [facility] 12-29-2024 09:02-0400 Respiratory rate 16 /min Andrea Farris MD, PhD Work Phone: [facility] 12-29-2024 09:02-0400 SaO2% (BldA) [Mass fraction] 96 % Andrea Farris MD, PhD Work Phone: [facility] 12-29-2024 09:02-0400 Systolic blood pressure 148 mm[Hg] Andrea Farris MD, PhD Work Phone: 8(402)376-411486 [address] 12-28-2024 08:54-0400 Body mass index (BMI) [Ratio] 31.6 kg/m2 Andrea Farris MD, PhD Work Phone: 8(529)166-207833 [place] [address] 12-28-2024 08:54-0400 Body temperature 98.2 [degF] Andrea Farris MD, PhD Work Phone: 3(641)375-321933 [place] [address] 12-28-2024 08:54-0400 Body weight 105.69 kg Andrea Farris MD, PhD Work Phone: 5(472)993-363133 [place] [address] 12-28-2024 08:54-0400 Diastolic blood pressure 70 mm[Hg] Andrea Farris MD, PhD Work Phone: 2(231)034-705233 [place] [address] 12-28-2024 08:54-0400 Heart rate 85 /min Andrea Farris MD, PhD Work Phone: 1(036)368-593933 [place] [address] 12-28-2024 08:54-0400 Respiratory rate 16 /min Andrea Farris MD, PhD Work Phone: 8(985)924-117033 [place] [address] 12-28-2024 08:54-0400 SaO2% (BldA) [Mass fraction] 95 % Andrea Farris MD, PhD Work Phone: 0(261)171-135333 [place] [address] 12-28-2024 08:54-0400 Systolic blood pressure 136 mm[Hg] Andrea Farris MD, PhD Work Phone: 7(822)267-542386 [address] 12-27-2024 09:35-0400 Body mass index (BMI) [Ratio] 31.6 kg/m2 Andrea Farris MD, PhD Work Phone: 3(096)735-977886 [address] 12-27-2024 09:35-0400 Body temperature 97.2 [degF] Andrea Farris MD, PhD Work Phone: 1(847)699-612733 [place] [address] 12-27-2024 09:35-0400 Body weight 105.69 kg Andrea Farris MD, PhD Work Phone: 0(640)445-705433 [place] [address] Comment on above: pt stated this was his last weight from day before in chart 12-27-2024 09:35-0400 Diastolic blood pressure 84 mm[Hg] Andrea Farris MD, PhD Work Phone: 7(041)084-061233 [place] [address] 12-27-2024 09:35-0400 Heart rate 70 /min Andrea Farris MD, PhD Work Phone: 5(870)615-742233 [place] [address] 12-27-2024 09:35-0400 Respiratory rate 16 /min Andrea Farris MD, PhD Work Phone: 5(889)364-643633 [place] [address] 12-27-2024 09:35-0400 SaO2% (BldA) [Mass fraction] 97 % Andrea Farris MD, PhD Work Phone: 7(615)471-182633 [place] [address] 12-27-2024 09:35-0400 Systolic blood pressure 176 mm[Hg] Andrea Farris MD, PhD Work Phone: 1(436)765-446133 [place] [address] 12-26-2024 10:08-0400 Body mass index (BMI) [Ratio] 31.64 kg/m2 Andrea Farris MD, PhD Work Phone: 9(664)115-217333 [place] [address] 12-26-2024 10:08-0400 Body temperature 97.7 [degF] Andrea Farris MD, PhD Work Phone: 9(426)294-829533 [place] [address] 12-26-2024 10:08-0400 Body weight 105.82 kg Andrea Farris MD, PhD Work Phone: [facility] 12-26-2024 10:08-0400 Diastolic blood pressure 78 mm[Hg] Andrea Farris MD, PhD Work Phone: [facility] 12-26-2024 10:08-0400 Heart rate 67 /min Andrea Farris MD, PhD Work Phone: [facility] 12-26-2024 10:08-0400 Respiratory rate 16 /min Andrea Farris MD, PhD Work Phone: [facility] 12-26-2024 10:08-0400 SaO2% (BldA) [Mass fraction] 96 % Andrea Farris MD, PhD Work Phone: [facility] 12-26-2024 10:08-0400 Systolic blood pressure 168 mm[Hg] Andrea Farris MD, PhD Work Phone: [facility] 12-25-2024 08:24-0400 Body temperature 97.9 [degF] Andrea Farris MD, PhD Work Phone: [facility] 12-25-2024 08:24-0400 Diastolic blood pressure 76 mm[Hg] Andrea Farris MD, PhD Work Phone: [facility] 12-25-2024 08:24-0400 Heart rate 72 /min Andrea Farris MD, PhD Work Phone: [facility] 12-25-2024 08:24-0400 Respiratory rate 18 /min Andrea Farris MD, PhD Work Phone: [facility] 12-25-2024 08:24-0400 SaO2% (BldA) [Mass fraction] 98 % Andrea Farris MD, PhD Work Phone: [facility] 12-25-2024 08:24-0400 Systolic blood pressure 164 mm[Hg] Andrea Farris MD, PhD Work Phone: [facility] 11-30-2024 11:11-0400 Body temperature 97 [degF] Andrea Farris MD, PhD Work Phone: [facility] 11-30-2024 11:11-0400 Diastolic blood pressure 86 mm[Hg] Andrea Farris MD, PhD Work Phone: [facility] 11-30-2024 11:11-0400 Heart rate 73 /min Andrea Farris MD, PhD Work Phone: [facility] 11-30-2024 11:11-0400 Respiratory rate 16 /min Andrea Farris MD, PhD Work Phone: [facility] 11-30-2024 11:11-0400 SaO2% (BldA) [Mass fraction] 95 % Andrea Farris MD, PhD Work Phone: [facility] 11-30-2024 11:11-0400 Systolic blood pressure 175 mm[Hg] Andrea Farris MD, PhD Work Phone: [facility] 11-30-2024 11:01-0400 Diastolic blood pressure 86 mm[Hg] Tiarra Fiore MD Work Phone: [facility] 11-30-2024 11:01-0400 Systolic blood pressure 175 mm[Hg] Tiarra Fiore MD Work Phone: [facility] 11-30-2024 10:58-0400 Body temperature 97 [degF] Tiarra Fiore MD Work Phone: [facility] 11-30-2024 10:58-0400 Heart rate 73 /min Tiarra Fiore MD Work Phone: [facility] 11-30-2024 10:58-0400 Respiratory rate 16 /min Tiarra Fiore MD Work Phone: [facility] 11-30-2024 10:58-0400 SaO2% (BldA) [Mass fraction] 95 % Tiarra Fiore MD Work Phone: [facility] 11-23-2024 17:18-0400 Body height 182.9 cm Tiarra Fiore MD Work Phone: [facility] 11-23-2024 17:18-0400 Diastolic blood pressure 79 mm[Hg] Tiarra Fiore MD Work Phone: [facility] 11-23-2024 17:18-0400 Systolic blood pressure 177 mm[Hg] Tiarra Fiore MD Work Phone: [facility] 11-23-2024 14:03-0400 Body temperature 97.59 [degF] Tiarra Fiore MD Work Phone: [facility] 11-23-2024 14:03-0400 Diastolic blood pressure 76 mm[Hg] Tiarra Fiore MD Work Phone: [facility] 11-23-2024 14:03-0400 Heart rate 72 /min Tiarra Fiore MD Work Phone: [facility] 11-23-2024 14:03-0400 Respiratory rate 16 /min Tiarra Fiore MD Work Phone: [facility] 11-23-2024 14:03-0400 SaO2% (BldA) [Mass fraction] 95 % Tiarra Fiore MD Work Phone: [facility] 11-23-2024 14:03-0400 Systolic blood pressure 172 mm[Hg] Tiarra Fiore MD Work Phone: [facility] 11-20-2024 22:04-0400 Body temperature 98.3 [degF] Dr. Sam Del Toro DO Work Phone: [facility] 11-20-2024 22:04-0400 Diastolic blood pressure 78 mm[Hg] Dr. Sam Del Toro DO Work Phone: [facility] 11-20-2024 22:04-0400 Heart rate 89 /min Dr. Sam Del Toro DO Work Phone: [facility] 11-20-2024 22:04-0400 Respiratory rate 16 /min Dr. Sam Del Toro DO Work Phone: [facility] 11-20-2024 22:04-0400 SaO2% (BldA) [Mass fraction] 96 % Dr. Sam Del Toro DO Work Phone: [facility] 11-20-2024 22:04-0400 Systolic blood pressure 132 mm[Hg] Dr. Sam Del Toro DO Work Phone: [facility] 11-20-2024 11:06-0400 Body height 180.[address] Sam Del Toro DO Work Phone: [facility] 11-20-2024 11:06-0400 Body mass index (BMI) [Ratio] 32.6 kg/m2 Dr. Sam Del Toro DO Work Phone: [facility] 11-20-2024 11:06-0400 Body weight 106.[address] Sam Del Toro DO Work Phone: [facility] 11-20-2024 10:16-0400 Body mass index (BMI) [Ratio] 33.2 kg/m2 Dr. Sam Del Toro DO Work Phone: [facility] 11-20-2024 10:16-0400 Body temperature 98.3 [degF] Dr. Sam Del Toro DO Work Phone: [facility] 11-20-2024 10:16-0400 Body weight 107.[address] Sam Del Toro DO Work Phone: [facility] 11-20-2024 10:16-0400 Diastolic blood pressure 77 mm[Hg] Dr. Sam Del Toro DO Work Phone: [facility] 11-20-2024 10:16-0400 Heart rate 78 /min Dr. Sam Del Toro DO Work Phone: [facility] 11-20-2024 10:16-0400 Respiratory rate 18 /min Dr. Sam Del Toro DO Work Phone: [facility] 11-20-2024 10:16-0400 SaO2% (BldA) [Mass fraction] 98 % Dr. Sam Del Toro DO Work Phone: [facility] 11-20-2024 10:16-0400 Systolic blood pressure 156 mm[Hg] Dr. Sam Del Toro DO Work Phone: [facility] 11-09-2024 11:47-0400 Heart rate 84 /min Dr. Sam Del Toro DO Work Phone: [facility] 11-09-2024 11:47-0400 Respiratory rate 16 /min Dr. Sam Del Toro DO Work Phone: [facility] 11-09-2024 11:47-0400 SaO2% (BldA) [Mass fraction] 96 % Dr. Sam Del Toro DO Work Phone: [facility] 11-09-2024 10:27-0400 Body mass index (BMI) [Ratio] 33.2 kg/m2 Dr. Sam Del Toro DO Work Phone: [facility] 11-09-2024 10:27-0400 Body weight [address] Sam Del Toro DO Work Phone: [facility] 11-09-2024 09:47-0400 Body height 180.[address] Sam Del Toro DO Work Phone: [facility] 11-09-2024 09:47-0400 Body temperature 98.1 [degF] Dr. Sam Del Toro DO Work Phone: [facility] 11-09-2024 09:47-0400 Diastolic blood pressure 77 mm[Hg] Dr. Sam Del Toro DO Work Phone: [facility] 11-09-2024 09:47-0400 Systolic blood pressure 180 mm[Hg] Dr. Sam Del Toro DO Work Phone: [facility] 11-09-2024 05:44-0400 Body temperature 97.9 [degF] Dr. Sam Del Toro DO Work Phone: [facility] 11-09-2024 05:44-0400 Diastolic blood pressure 85 mm[Hg] Dr. Sam Del Toro DO Work Phone: [facility] 11-09-2024 05:44-0400 Heart rate 74 /min Dr. Sam Del Toro DO Work Phone: [facility] 11-09-2024 05:44-0400 Respiratory rate 20 /min Dr. Sam Del Toro DO Work Phone: [facility] 11-09-2024 05:44-0400 SaO2% (BldA) [Mass fraction] 94 % Dr. Sam Del Toro DO Work Phone: [facility] 11-09-2024 05:44-0400 Systolic blood pressure 185 mm[Hg] Dr. Sam Del Toro DO Work Phone: [facility] 11-09-2024 01:45-0400 Body height 180.[address] Sam Del Toro DO Work Phone: [facility] 11-09-2024 01:45-0400 Body mass index (BMI) [Ratio] 33.5 kg/m2 Dr. Sam Del Toro DO Work Phone: [facility] 11-09-2024 01:45-0400 Body weight 109.[address] Sam Del Toro DO Work Phone: [facility] 10-23-2024 09:01-0400 Body mass index (BMI) [Ratio] 33.6 kg/m2 Dr. Sam Del Toro DO Work Phone: [facility] 10-23-2024 09:01-0400 Body temperature 98.1 [degF] Dr. Sam Del Toro DO Work Phone: [facility] 10-23-2024 09:01-0400 Body weight 109.[address] Sam Del Toro DO Work Phone: [facility] 10-23-2024 09:01-0400 Diastolic blood pressure 72 mm[Hg] Dr. Sam Del Toro DO Work Phone: [facility] 10-23-2024 09:01-0400 Heart rate 70 /min Dr. Sam Del Toro DO Work Phone: [facility] 10-23-2024 09:01-0400 Respiratory rate 18 /min Dr. Sam Del Toro DO Work Phone: [facility] 10-23-2024 09:01-0400 SaO2% (BldA) [Mass fraction] 98 % Dr. Sam Del Toro DO Work Phone: [facility] 10-23-2024 09:01-0400 Systolic blood pressure 162 mm[Hg] Dr. Sam Del Toro DO Work Phone: [facility] 10-10-2024 13:43-0400 Body height 180.[address] Sam Del Toro DO Work Phone: [facility] 10-10-2024 13:43-0400 Body mass index (BMI) [Ratio] 33.6 kg/m2 Dr. Sam Del Toro DO Work Phone: [facility] 10-10-2024 13:43-0400 Body temperature 98.2 [degF] Dr. Sam Del Toro DO Work Phone: [facility] 10-10-2024 13:43-0400 Body weight 109.[address] Sam Del Toro DO Work Phone: [facility] 10-10-2024 13:43-0400 Diastolic blood pressure 77 mm[Hg] Dr. Sam Del Toro DO Work Phone: [facility] 10-10-2024 13:43-0400 Heart rate 69 /min Dr. Sam Del Toro DO Work Phone: [facility] 10-10-2024 13:43-0400 Respiratory rate 18 /min Dr. Sam Del Toro DO Work Phone: [facility] 10-10-2024 13:43-0400 SaO2% (BldA) [Mass fraction] 95 % Dr. Sam Del Toro DO Work Phone: [facility] 10-10-2024 13:43-0400 Systolic blood pressure 146 mm[Hg] Dr. Sam Del Toro DO Work Phone: [facility] 10-04-2024 13:02-0400 Body temperature 97.8 [degF] Dr. Sam Del Toro DO Work Phone: [facility] 10-04-2024 13:02-0400 Diastolic blood pressure 68 mm[Hg] Dr. Sam Del Toro DO Work Phone: [facility] 10-04-2024 13:02-0400 Heart rate 80 /min Dr. Sam Del Toro DO Work Phone: [facility] 10-04-2024 13:02-0400 Respiratory rate 18 /min Dr. Sam Del Toro DO Work Phone: [facility] 10-04-2024 13:02-0400 SaO2% (BldA) [Mass fraction] 96 % Dr. Sam Del Toro DO Work Phone: [facility] 10-04-2024 13:02-0400 Systolic blood pressure 165 mm[Hg] Dr. Sam Del Toro DO Work Phone: [facility] 10-04-2024 07:12-0400 Body height 180.[address] Sam Del Toro DO Work Phone: [facility] 10-04-2024 07:12-0400 Body mass index (BMI) [Ratio] 33.6 kg/m2 Dr. Sam Del Toro DO Work Phone: [facility] 10-04-2024 07:12-0400 Body weight 109.[address] Sam Del Toro DO Work Phone: [facility] 09-12-2024 14:06-0500 Body mass index (BMI) [Ratio] 34.3 kg/m2 Dr. Sam Del Toro DO Work Phone: [facility] 09-12-2024 14:06-0500 Body temperature 97.6 [degF] Dr. Sam Del Toro DO Work Phone: [facility] 09-12-2024 14:06-0500 Body weight 108.[address] Sam Del Toro DO Work Phone: [facility] 09-12-2024 14:06-0500 Diastolic blood pressure 68 mm[Hg] Dr. Sam Del Toro DO Work Phone: [facility] 09-12-2024 14:06-0500 Heart rate 68 /min Dr. Sam Del Toro DO Work Phone: [facility] 09-12-2024 14:06-0500 Respiratory rate 18 /min Dr. Sam Del Toro DO Work Phone: [facility] 09-12-2024 14:06-0500 SaO2% (BldA) [Mass fraction] 96 % Dr. Sam Del Toro DO Work Phone: [facility] 09-12-2024 14:06-0500 Systolic blood pressure 137 mm[Hg] Dr. Sam Del Toro DO Work Phone: [facility] 08-15-2024 12:58-0500 Body mass index (BMI) [Ratio] 34.6 kg/m2 Dr. Sam Del Toro DO Work Phone: [facility] 08-15-2024 12:58-0500 Body temperature 97.7 [degF] Dr. Sam Del Toro DO Work Phone: [facility] 08-15-2024 12:58-0500 Body weight 109.[address] Sam Del Toro DO Work Phone: [facility] 08-15-2024 12:58-0500 Diastolic blood pressure 60 mm[Hg] Dr. Sam Del Toro DO Work Phone: [facility] 08-15-2024 12:58-0500 Heart rate 67 /min Dr. Sam Del Toro DO Work Phone: [facility] 08-15-2024 12:58-0500 Respiratory rate 18 /min Dr. Sam Del Toro DO Work Phone: [facility] 08-15-2024 12:58-0500 SaO2% (BldA) [Mass fraction] 96 % Dr. Sam Del Toro DO Work Phone: [facility] 08-15-2024 12:58-0500 Systolic blood pressure 137 mm[Hg] Dr. Sam Del Toro DO Work Phone: [facility] 08-15-2024 09:49-0500 Body mass index (BMI) [Ratio] 34.4 kg/m2 Dr. Sam Del Toro DO Work Phone: [facility] 08-15-2024 09:49-0500 Body weight 108.[address] Sam Del Toro DO Work Phone: [facility] 08-15-2024 09:49-0500 Diastolic blood pressure 63 mm[Hg] Dr. Sam Del Toro DO Work Phone: [facility] 08-15-2024 09:49-0500 Heart rate 73 /min Dr. Sam Del Toro DO Work Phone: [facility] 08-15-2024 09:49-0500 Respiratory rate 18 /min Dr. Sam Del Toro DO Work Phone: [facility] 08-15-2024 09:49-0500 Systolic blood pressure 112 mm[Hg] Dr. Sam Del Toro DO Work Phone: [facility] 07-13-2024 09:14-0500 Body mass index (BMI) [Ratio] 34.4 kg/m2 Dr. Sam Del Toro DO Work Phone: [facility] 07-13-2024 09:14-0500 Body temperature 98.2 [degF] Dr. Sam Del Toro DO Work Phone: [facility] 07-13-2024 09:14-0500 Body weight 108.[address] Sam Del Toro DO Work Phone: [facility] 07-13-2024 09:14-0500 Diastolic blood pressure 65 mm[Hg] Dr. Sam Del Toro DO Work Phone: [facility] 07-13-2024 09:14-0500 Heart rate 73 /min Dr. Sam Del Toro DO Work Phone: [facility] 07-13-2024 09:14-0500 Respiratory rate 14 /min Dr. Sam Del Toro DO Work Phone: [facility] 07-13-2024 09:14-0500 SaO2% (BldA) [Mass fraction] 95 % Dr. Sam Del Toro DO Work Phone: [facility] 07-13-2024 09:14-0500 Systolic blood pressure 124 mm[Hg] Dr. Sam Del Toro DO Work Phone: [facility] 07-04-2024 08:27-0500 Body mass index (BMI) [Ratio] 34.6 kg/m2 Dr. Sam Del Toro DO Work Phone: [facility] 07-04-2024 08:27-0500 Body temperature 98.3 [degF] Dr. Sam Del Toro DO Work Phone: [facility] 07-04-2024 08:27-0500 Body weight 109.[address] Sam Del Toro DO Work Phone: [facility] 07-04-2024 08:27-0500 Diastolic blood pressure 78 mm[Hg] Dr. Sam Del Toro DO Work Phone: [facility] 07-04-2024 08:27-0500 Heart rate 90 /min Dr. Sam Del Toro DO Work Phone: [facility] 07-04-2024 08:27-0500 Respiratory rate 18 /min Dr. Sam Del Toro DO Work Phone: [facility] 07-04-2024 08:27-0500 SaO2% (BldA) [Mass fraction] 97 % Dr. Sam Del Toro DO Work Phone: [facility] 07-04-2024 08:27-0500 Systolic blood pressure 118 mm[Hg] Dr. Sam Del Toro DO Work Phone: [facility] 06-07-2024 10:06-0500 Body mass index (BMI) [Ratio] 35.2 kg/m2 Dr. Sam Del Toro DO Work Phone: [facility] 06-07-2024 10:06-0500 Body temperature 97.8 [degF] Dr. Sam Del Toro DO Work Phone: [facility] 06-07-2024 10:06-0500 Body weight 111.[address] Sam Del Toro DO Work Phone: [facility] 06-07-2024 10:06-0500 Diastolic blood pressure 65 mm[Hg] Dr. Sam Del Toro DO Work Phone: [facility] 06-07-2024 10:06-0500 Heart rate 70 /min Dr. Sam Del Toro DO Work Phone: [facility] 06-07-2024 10:06-0500 Respiratory rate 16 /min Dr. Sam Del Toro DO Work Phone: [facility] 06-07-2024 10:06-0500 SaO2% (BldA) [Mass fraction] 97 % Dr. Sam Del Toro DO Work Phone: [facility] 06-07-2024 10:06-0500 Systolic blood pressure 143 mm[Hg] Dr. Sam Del Toro DO Work Phone: [facility] 09-28-2023 15:00-0500 Body height 180.[address] Sam Del Toro Work Phone: [facility] 09-28-2023 15:00-0500 Body mass index (BMI) [Ratio] 36.6 kg/m2 Dr. Sam Del Toro Work Phone: [facility] 09-28-2023 15:00-0500 Body temperature 98 [degF] Dr. Sam Del Toro Work Phone: [facility] 09-28-2023 15:00-0500 Body weight 118.[address] Sam Del Toro Work Phone: [facility] 09-28-2023 15:00-0500 Diastolic blood pressure 65 mm[Hg] Dr. Sam Del Toro Work Phone: [facility] 09-28-2023 15:00-0500 Heart rate 61 /min Dr. Sam Del Toro Work Phone: [facility] 09-28-2023 15:00-0500 Respiratory rate 18 /min Dr. Sam Del Toro Work Phone: [facility] 09-28-2023 15:00-0500 SaO2% (BldA) [Mass fraction] 95 % Dr. Sam Del Toro Work Phone: [facility] 09-28-2023 15:00-0500 Systolic blood pressure 145 mm[Hg] Dr. Sam Del Toro Work Phone: [facility] 10-09-2022 12:49-0400 Body height 180.[address] Sam Del Toro Work Phone: [facility] 10-09-2022 12:49-0400 Body mass index (BMI) [Ratio] 39.2 kg/m2 Dr. Sam Del Toro Work Phone: [facility] 10-09-2022 12:49-0400 Diastolic blood pressure 70 mm[Hg] Dr. Sam Del Toro Work Phone: [facility] 10-09-2022 12:49-0400 Systolic blood pressure 148 mm[Hg] Dr. Sam Del Toro Work Phone: [facility] 10-09-2022 09:48-0400 Body temperature 97.4 [degF] Dr. Sam Del Toro Work Phone: [facility] 10-09-2022 09:48-0400 Body weight [address] Sam Del Toro Work Phone: [facility] 10-09-2022 09:48-0400 Heart rate 66 /min Dr. Sam Del Toro Work Phone: [facility] 10-09-2022 09:48-0400 Respiratory rate 16 /min Dr. Sam Del Toro Work Phone: [facility] 10-09-2022 09:48-0400 SaO2% (BldA) [Mass fraction] 94 % Dr. Sam Del Toro Work Phone: [facility] 09-17-2022 13:50-0500 Body height 180.[address] Sam Del Toro Work Phone: [facility] 09-17-2022 13:50-0500 Body mass index (BMI) [Ratio] 38.7 kg/m2 Dr. Sam Del Toro Work Phone: [facility] 09-17-2022 13:50-0500 Body temperature 98.2 [degF] Dr. Sam Del Toro Work Phone: [facility] 09-17-2022 13:50-0500 Body weight 126.[address] Sam Del Toro Work Phone: [facility] 09-17-2022 13:50-0500 Diastolic blood pressure 73 mm[Hg] Dr. Sam Del Toro Work Phone: [facility] 09-17-2022 13:50-0500 Heart rate 64 /min Dr. Sam Del Toro Work Phone: [facility] 09-17-2022 13:50-0500 Respiratory rate 17 /min Dr. Sam Del Toro Work Phone: [facility] 09-17-2022 13:50-0500 SaO2% (BldA) [Mass fraction] 95 % Dr. Sam Del Toro Work Phone: [facility] 09-17-2022 13:50-0500 Systolic blood pressure 145 mm[Hg] Dr. Sam Del Toro Work Phone: [facility] 05-13-2022 14:46-0400 Body height 180.[address] Sam Del Toro Work Phone: [facility] 05-13-2022 14:38-0400 Body mass index (BMI) [Ratio] 38.2 kg/m2 Dr. Sam Del Toro Work Phone: [facility] 05-13-2022 14:38-0400 Body temperature 97.8 [degF] Dr. Sam Del Toro Work Phone: [facility] 05-13-2022 14:38-0400 Body weight 124.[address] Sam Del Toro Work Phone: [facility] 05-13-2022 14:38-0400 Diastolic blood pressure 60 mm[Hg] Dr. Sam Del Toro Work Phone: [facility] 05-13-2022 14:38-0400 Heart rate 59 /min Dr. Sam Del Toro Work Phone: [facility] 05-13-2022 14:38-0400 Respiratory rate 16 /min Dr. Sam Del Toro Work Phone: [facility] 05-13-2022 14:38-0400 SaO2% (BldA) [Mass fraction] 97 % Dr. Sam Del Toro Work Phone: [facility] 05-13-2022 14:38-0400 Systolic blood pressure 141 mm[Hg] Dr. Sam Del Toro Work Phone: [facility] 04-17-2022 10:21-0400 Body height 180.[address] Sam Del Toro Work Phone: [facility] Work Phone: 04-17-2022 10:21-0400 Body mass index (BMI) [Ratio] 37.5 kg/m2 Dr. Sam Del Toro Work Phone: [facility] Work Phone: 04-17-2022 08:40-0400 Body weight 122.[address] Sam Del Toro Work Phone: [facility] Work Phone: 04-17-2022 08:40-0400 Diastolic blood pressure 69 mm[Hg] Dr. Sam Del Toro Work Phone: [facility] Work Phone: 04-17-2022 08:40-0400 Heart rate 86 /min Dr. Sam Del Toro Work Phone: [facility] Work Phone: 04-17-2022 08:40-0400 Respiratory rate 16 /min Dr. Sam Del Toro Work Phone: [facility] Work Phone: 04-17-2022 08:40-0400 SaO2% (BldA) [Mass fraction] 99 % Dr. Sam Del Toro Work Phone: [facility] Work Phone: 04-17-2022 08:40-0400 Systolic blood pressure 114 mm[Hg] Dr. Sam Del Toro Work Phone: [facility] Work Phone: 03-23-2022 14:25-0400 Body mass index (BMI) [Ratio] 38.2 kg/m2 Dr. Sam Del Toro Work Phone: [facility] Work Phone: 03-23-2022 14:25-0400 Body temperature 98.6 [degF] Dr. Sam Del Toro Work Phone: [facility] Work Phone: 03-23-2022 14:25-0400 Body weight 124.[address] Sam Del Toro Work Phone: [facility] Work Phone: 03-23-2022 14:25-0400 Diastolic blood pressure 63 mm[Hg] Dr. aSm Del Toro Work Phone: [facility] Work Phone: 03-23-2022 14:25-0400 Heart rate 59 /min Dr. Sam Del Toro Work Phone: [facility] Work Phone: 03-23-2022 14:25-0400 Respiratory rate 15 /min Dr. Sam Del Toro Work Phone: [facility] Work Phone: 03-23-2022 14:25-0400 SaO2% (BldA) [Mass fraction] 97 % Dr. Sam Del Toro Work Phone: [facility] Work Phone: 03-23-2022 14:25-0400 Systolic blood pressure 140 mm[Hg] Dr. Sam Del Toro Work Phone: [facility] Work Phone: 02-25-2022 14:05-0400 Body temperature 97.6 [degF] Dr. Sam Del Toro Work Phone: [facility] Work Phone: 02-25-2022 14:05-0400 Diastolic blood pressure 55 mm[Hg] Dr. Sam Del Toro Work Phone: [facility] [facility]: 02-25-2022 14:05-0400 Heart rate 60 /min Dr. Sam Del Toro Work Phone: [facility] Work Phone: 02-25-2022 14:05-0400 Respiratory rate 18 /min Dr. Sam Del Toro Work Phone: [facility] Work Phone: 02-25-2022 14:05-0400 SaO2% (BldA) [Mass fraction] 94 % Dr. Sam Del Toro Work Phone: [facility] Work Phone: 02-25-2022 14:05-0400 Systolic blood pressure 134 mm[Hg] Dr. Sam Del Toro Work Phone: [facility] Work Phone: 02-25-2022 09:54-0400 Body height 180.[address] Sam Del Toro Work Phone: [facility] Work Phone: 02-25-2022 09:54-0400 Body mass index (BMI) [Ratio] 37.8 kg/m2 Dr. Sam Del Toro Work Phone: [facility] Work Phone: 02-25-2022 09:54-0400 Body weight [address] Sam Del Toro Work Phone: [facility] Work Phone: 02-11-2022 14:24-0400 Body mass index (BMI) [Ratio] 38.3 kg/m2 Dr. Sam Del Toro Work Phone: [facility] Work Phone: 02-11-2022 14:24-0400 Body temperature 97.5 [degF] Dr. Sam Del Toro Work Phone: [facility] Work Phone: 02-11-2022 14:24-0400 Body weight 124.[address] Sam Del Toro Work Phone: [facility] Work Phone: 02-11-2022 14:24-0400 Diastolic blood pressure 72 mm[Hg] Dr. Sam Del Toro Work Phone: [facility] Work Phone: 02-11-2022 14:24-0400 Heart rate 67 /min Dr. Sam Del Toro Work Phone: [facility] Work Phone: 02-11-2022 14:24-0400 Respiratory rate 16 /min Dr. Sam Del Toro Work Phone: [facility] Work Phone: 02-11-2022 14:24-0400 SaO2% (BldA) [Mass fraction] 96 % Dr. Sam Del Toro Work Phone: [facility] Work Phone: 02-11-2022 14:24-0400 Systolic blood pressure 135 mm[Hg] Dr. Sam Del Toro Work Phone: [facility] Work Phone: 01-17-2022 13:47-0400 Body mass index (BMI) [Ratio] 42.4 kg/m2 Dr. Sam Del Toro Work Phone: [facility] Work Phone: 01-17-2022 13:47-0400 Body temperature 98.6 [degF] Dr. Sam Del Toro Work Phone: [facility] Work Phone: 01-17-2022 13:47-0400 Body weight 137.[address] Sam Del Toro Work Phone: [facility] Work Phone: 01-17-2022 13:47-0400 Diastolic blood pressure 64 mm[Hg] Dr. Sam Del Toro Work Phone: [facility] Work Phone: 01-17-2022 13:47-0400 Heart rate 76 /min Dr. Sam Del Toro Work Phone: [facility] Work Phone: 01-17-2022 13:47-0400 Respiratory rate 20 /min Dr. Sam Del Toro Work Phone: [facility] Work Phone: 01-17-2022 13:47-0400 SaO2% (BldA) [Mass fraction] 99 % Dr. Sam Del Toro Work Phone: [facility] Work Phone: 01-17-2022 13:47-0400 Systolic blood pressure 154 mm[Hg] Dr. Sam Del Toro Work Phone: [facility] Work Phone: 01-12-2022 08:52-0400 Body mass index (BMI) [Ratio] 42.4 kg/m2 Dr. Sam Del Toro Work Phone: [facility] Work Phone: 01-12-2022 08:52-0400 Body temperature 98.3 [degF] Dr. Sam Del Toro Work Phone: [facility] Work Phone: 01-12-2022 08:52-0400 Body weight [address] Sam Del Toro Work Phone: [facility] Work Phone: 01-12-2022 08:52-0400 Diastolic blood pressure 76 mm[Hg] Dr. Sam Del Toro Work Phone: [facility] Work Phone: 01-12-2022 08:52-0400 Heart rate 82 /min Dr. Sam Del Toro Work Phone: [facility] Work Phone: 01-12-2022 08:52-0400 Respiratory rate 15 /min Dr. Sam Del Toro Work Phone: [facility] Work Phone: 01-12-2022 08:52-0400 SaO2% (BldA) [Mass fraction] 98 % Dr. Sam Del Toro Work Phone: [facility] Work Phone: 01-12-2022 08:52-0400 Systolic blood pressure 151 mm[Hg] Dr. Sam Del Toro Work Phone: [facility] Work Phone: 01-06-2022 15:18-0400 Body temperature 98.6 [degF] Dr. Sam Del Toro Work Phone: [facility] Work Phone: 01-06-2022 15:18-0400 Diastolic blood pressure 70 mm[Hg] Dr. Sam Del Toro Work Phone: [facility] Work Phone: 01-06-2022 15:18-0400 Heart rate 68 /min Dr. Sam Del Toro Work Phone: [facility] Work Phone: 01-06-2022 15:18-0400 Respiratory rate 18 /min Dr. Sam Del Toro Work Phone: [facility] Work Phone: 01-06-2022 15:18-0400 SaO2% (BldA) [Mass fraction] 98 % Dr. Sam Del Toro Work Phone: [facility] Work Phone: 01-06-2022 15:18-0400 Systolic blood pressure 128 mm[Hg] Dr. Sam Del Toro Work Phone: [facility] Work Phone: 01-06-2022 05:00-0400 Body weight 133.[address] Sam Del Toro Work Phone: [facility] Work Phone: 01-05-2022 14:00-0400 Inhaled oxygen flow rate 2 L/min Dr. Sam Del Toro Work Phone: [facility] Work Phone: 01-03-2022 22:45-0400 Body mass index (BMI) [Ratio] 41.3 kg/m2 Dr. Sam Del Toro Work Phone: [facility] Work Phone: 01-03-2022 22:08-0400 Body temperature 97.5 [degF] Dr. Sam Del Toro Work Phone: [facility] Work Phone: 01-03-2022 22:08-0400 Diastolic blood pressure 84 mm[Hg] Dr. Sam Del Toro Work Phone: [facility] Work Phone: 01-03-2022 22:08-0400 Heart rate 72 /min Dr. Sam Del Toro Work Phone: [facility] Work Phone: 01-03-2022 22:08-0400 Respiratory rate 17 /min Dr. Sam Del Toro Work Phone: [facility] Work Phone: 01-03-2022 22:08-0400 SaO2% (BldA) [Mass fraction] 98 % Dr. Sam Del Toro Work Phone: [facility] Work Phone: 01-03-2022 22:08-0400 Systolic blood pressure 187 mm[Hg] Dr. Sam Del Toro Work Phone: [facility] Work Phone: 01-03-2022 11:35-0400 Body height 180.[address] Sam Del Toro Work Phone: [facility] Work Phone: 01-03-2022 11:35-0400 Body mass index (BMI) [Ratio] 40.4 kg/m2 Dr. Sam Del Toro Work Phone: [facility] Work Phone: 01-03-2022 11:35-0400 Body weight 131.[address] Sam Del Toro Work Phone: [facility] Work Phone: 01-01-2022 15:22-0400 SaO2% (BldA) [Mass fraction] 94 % Dr. Sam Del Toro Work Phone: [facility] Work Phone: 01-01-2022 15:21-0400 Body temperature 97.7 [degF] Dr. Sam Del Toro Work Phone: [facility] Work Phone: 01-01-2022 15:21-0400 Diastolic blood pressure 66 mm[Hg] Dr. Sam Del Toro Work Phone: [facility] Work Phone: 01-01-2022 15:21-0400 Heart rate 63 /min Dr. Sam Del Toro Work Phone: [facility] Work Phone: 01-01-2022 15:21-0400 Respiratory rate 16 /min Dr. Sam Del Toro Work Phone: [facility] Work Phone: 01-01-2022 15:21-0400 Systolic blood pressure 129 mm[Hg] Dr. Sam Del Toro Work Phone: [facility] Work Phone: 01-01-2022 10:23-0400 Inhaled oxygen flow rate 1 L/min Dr. Sam Del Toro Work Phone: [facility] Work Phone: 01-01-2022 06:45-0400 Body weight 136.[address] Sam Del Toro Work Phone: [facility] Work Phone: 12-31-2021 17:05-0400 Body height 180.[address] Sam Del Toro Work Phone: [facility] Work Phone: 12-27-2021 11:31-0400 Body mass index (BMI) [Ratio] 40.8 kg/m2 Dr. Sam Del Toro Work Phone: [facility] Work Phone: 11-07-2021 08:42-0400 Body mass index (BMI) [Ratio] 41.6 kg/m2 Dr. Sam Del Toro Work Phone: [facility] Work Phone: 11-07-2021 08:42-0400 Body weight 139.[address] Sam Del Toro Work Phone: [facility] Work Phone: 11-07-2021 08:42-0400 Diastolic blood pressure 75 mm[Hg] Dr. Sam Del Toro Work Phone: [facility] Work Phone: 11-07-2021 08:42-0400 Heart rate 70 /min Dr. Sam Del Toro Work Phone: [facility] Work Phone: 11-07-2021 08:42-0400 Respiratory rate 18 /min Dr. Sam Del Toro Work Phone: [facility] Work Phone: 11-07-2021 08:42-0400 SaO2% (BldA) [Mass fraction] 96 % Dr. Sam Del Toro Work Phone: [facility] Work Phone: 11-07-2021 08:42-0400 Systolic blood pressure 151 mm[Hg] Dr. Sam Del Toro Work Phone: [facility] Work Phone: 11-07-2021 08:42-0400 Body height 182.[address] Sam Del Toro Work Phone: [facility] Work Phone: 11-07-2021 08:42-0400 Body mass index (BMI) [Ratio] 41.6 kg/m2 Dr. Sam Del Toro Work Phone: [facility] Work Phone: 11-07-2021 08:42-0400 Body weight 139.[address] Sam Del Toro Work Phone: [facility] Work Phone: 11-07-2021 08:42-0400 Diastolic blood pressure 75 mm[Hg] Dr. Sam Del Toro Work Phone: [facility] Work Phone: 11-07-2021 08:42-0400 Heart rate 70 /min Dr. Sam Del Toro Work Phone: [facility] Work Phone: 11-07-2021 08:42-0400 Respiratory rate 18 /min Dr. Sam Del Toro Work Phone: [facility] Work Phone: 11-07-2021 08:42-0400 SaO2% (BldA) [Mass fraction] 96 % Dr. Sam Del Toro Work Phone: [facility] Work Phone: 11-07-2021 08:42-0400 Systolic blood pressure 151 mm[Hg] Dr. Sam Del Toro Work Phone: [facility] Work Phone: 10-08-2021 15:27-0400 Body mass index (BMI) [Ratio] 43.9 kg/m2 Dr. Sam Del Toro Work Phone: [facility] Work Phone: 10-08-2021 15:27-0400 Body temperature 98.8 [degF] Dr. Sam Del Toro Work Phone: [facility] Work Phone: 10-08-2021 15:27-0400 Body weight 147.[address] Sam Del Toro Work Phone: [facility] Work Phone: 10-08-2021 15:27-0400 Diastolic blood pressure 76 mm[Hg] Dr. Sam Del Toro Work Phone: [facility] Work Phone: 10-08-2021 15:27-0400 Heart rate 69 /min Dr. Sam Del Toro Work Phone: [facility] Work Phone: 10-08-2021 15:27-0400 Respiratory rate 15 /min Dr. Sam Del Toro Work Phone: [facility] Work Phone: 10-08-2021 15:27-0400 SaO2% (BldA) [Mass fraction] 95 % Dr. Sam Del Toro Work Phone: [facility] Work Phone: 10-08-2021 15:27-0400 Systolic blood pressure 162 mm[Hg] Dr. Sam Del Toro Work Phone: [facility] Work Phone: 09-25-2021 14:13-0500 Body mass index (BMI) [Ratio] 43.7 kg/m2 Dr. Sam Del Toro Work Phone: [facility] Work Phone: 09-25-2021 14:13-0500 Body temperature 98.2 [degF] Dr. Sam Del Toro Work Phone: [facility] Work Phone: 09-25-2021 14:13-0500 Body weight 146.[address] Sam Del Toro Work Phone: [facility] Work Phone: 09-25-2021 14:13-0500 Diastolic blood pressure 79 mm[Hg] Dr. Sam Del Toro Work Phone: [facility] Work Phone: 09-25-2021 14:13-0500 Heart rate 68 /min Dr. Sam Del Toro Work Phone: [facility] Work Phone: 09-25-2021 14:13-0500 Respiratory rate 15 /min Dr. Sam Del Toro Work Phone: [facility] Work Phone: 09-25-2021 14:13-0500 SaO2% (BldA) [Mass fraction] 96 % Dr. Sam Del Toro Work Phone: [facility] Work Phone: 09-25-2021 14:13-0500 Systolic blood pressure 173 mm[Hg] Dr. Sam Del Toro Work Phone: [facility] Work Phone: 08-28-2021 11:14-0500 Body mass index (BMI) [Ratio] 42.5 kg/m2 Dr. Sam Del Toro Work Phone: [facility] Work Phone: 08-28-2021 11:14-0500 Body temperature 98.3 [degF] Dr. Sam Del Toro Work Phone: [facility] Work Phone: 08-28-2021 11:14-0500 Body weight 142.[address] Sam Del Toro Work Phone: [facility] Work Phone: 08-28-2021 11:14-0500 Diastolic blood pressure 88 mm[Hg] Dr. Sam Del Toro Work Phone: [facility] Work Phone: 08-28-2021 11:14-0500 Heart rate 68 /min Dr. Sam Del Toro Work Phone: [facility] Work Phone: 08-28-2021 11:14-0500 Respiratory rate 16 /min Dr. Sam Del Toro Work Phone: [facility] Work Phone: 08-28-2021 11:14-0500 SaO2% (BldA) [Mass fraction] 96 % Dr. Sam Del Toro Work Phone: [facility] Work Phone: 08-28-2021 11:14-0500 Systolic blood pressure 180 mm[Hg] Dr. Sam Del Toro Work Phone: [facility] Work Phone: 08-14-2021 13:21-0500 Body mass index (BMI) [Ratio] 42 kg/m2 Dr. Sam Del Toro Work Phone: [facility] Work Phone: 08-14-2021 13:21-0500 Body temperature 98.6 [degF] Dr. Sam Del Toro Work Phone: [facility] Work Phone: 08-14-2021 13:21-0500 Body weight 140.[address] Sam Del Toro Work Phone: [facility] Work Phone: 08-14-2021 13:21-0500 Diastolic blood pressure 83 mm[Hg] Dr. Sam Del Toro Work Phone: [facility] Work Phone: 08-14-2021 13:21-0500 Heart rate 79 /min Dr. Sam Del Toro Work Phone: [facility] Work Phone: 08-14-2021 13:21-0500 Respiratory rate 15 /min Dr. Sam Del Toro Work Phone: [facility] Work Phone: 08-14-2021 13:21-0500 Systolic blood pressure 184 mm[Hg] Dr. Sam Del Toro Work Phone: [facility] Work Phone: 07-31-2021 14:17-0500 Body mass index (BMI) [Ratio] 40.6 kg/m2 Dr. Sam Del Toro Work Phone: [facility] Work Phone: 07-31-2021 14:17-0500 Body temperature 98.2 [degF] Dr. Sam Del Toro Work Phone: [facility] Work Phone: 07-31-2021 14:17-0500 Body weight 135.[address] Sam Del Toro Work Phone: [facility] Work Phone: 07-31-2021 14:17-0500 Diastolic blood pressure 83 mm[Hg] Dr. Sam Del Toro Work Phone: [facility] Work Phone: 07-31-2021 14:17-0500 Heart rate 56 /min Dr. Sam Del Toro Work Phone: [facility] Work Phone: 07-31-2021 14:17-0500 Respiratory rate 16 /min Dr. Sam Del Toro Work Phone: [facility] Work Phone: 07-31-2021 14:17-0500 SaO2% (BldA) [Mass fraction] 97 % Dr. Sam Del Toro Work Phone: [facility] Work Phone: 07-31-2021 14:17-0500 Systolic blood pressure 162 mm[Hg] Dr. Sam Del Toro Work Phone: [facility] Work Phone: 05-22-2021 14:18-0400 Diastolic blood pressure 65 mm[Hg] Dr. Sam Del Toro Work Phone: [facility] 05-22-2021 14:18-0400 Heart rate 74 /min Dr. Sam Del Toro Work Phone: [facility] 05-22-2021 14:18-0400 Respiratory rate 16 /min Dr. Sam Del Toro Work Phone: [facility] 05-22-2021 14:18-0400 SaO2% (BldA) [Mass fraction] 98 % Dr. Sam Del Toro Work Phone: [facility] 05-22-2021 14:18-0400 Systolic blood pressure 138 mm[Hg] Dr. Sam Del Toro Work Phone: [facility] 05-22-2021 13:37-0400 Body mass index (BMI) [Ratio] 41.8 kg/m2 Dr. Sam Del Toro Work Phone: [facility] 04-10-2021 16:20-0400 Body temperature 97.4 [degF] Dr. Sam Del Toro Work Phone: [facility] 01-09-2021 13:51-0400 Body weight 136.[address] 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 Sam Del Toro DO Work Phone: -Emergency Department Work Phone: Start: 01-08-2025 End: 01-08-2025 Emergency department patient visit Dr. Sam Del Toro DO Work Phone: [facility] Work Phone: Start: 12-29-2024 End: 12-29-2024 Clinical Support Encounter Andrea Farris MD, PhD Work Phone: Department of Radiation Oncology Comment on above: Metastatic cancer to spine (Primary Dx) Start: 12-29-2024 ambulatory SAM DEL TORO Facilit y:[facility] Start: 12-29-2024 End: 12-29-2024 Subsequent hospital visit by physician Andrea Farris MD, PhD Work Phone: Department of Radiation Oncology Comment on above: Arrived Start: 12-28-2024 End: 12-28-2024 Clinical Support Encounter Andrea Farris MD, PhD Work Phone: Department of Radiation Oncology Comment on above: Metastatic cancer to spine (Primary Dx) Start: 12-28-2024 ambulatory ANDREA FARRIS Facil ity:[facility] Start: 12-28-2024 End: 12-28-2024 Subsequent hospital visit by physician Andrea Farris MD, PhD Work Phone: Department of Radiation Oncology Comment on above: Arrived Start: 12-27-2024 End: 12-27-2024 Clinical Support Encounter Andrea Farris MD, PhD Work Phone: Department of Radiation Oncology Comment on above: Metastatic cancer to spine (Primary Dx) Start: 12-27-2024 ambulatory SAM DEL TORO Facilit y:[facility] Start: 12-27-2024 End: 12-27-2024 Subsequent hospital visit by physician Andrea Farris MD, PhD Work Phone: Department of Radiation Oncology Comment on above: Arrived Start: 12-26-2024 End: 12-27-2024 Clinical Support Encounter Andrea Farris MD, PhD Work Phone: Department of Radiation Oncology Comment on above: Metastatic cancer to spine (Primary Dx) Start: 12-26-2024 ambulatory ASM DEL TORO Facilit y:[facility] Start: 12-26-2024 End: 12-26-2024 Subsequent hospital visit by physician Andrea Farris MD, PhD Work Phone: Department of Radiation Oncology Comment on above: Arrived Start: 12-25-2024 End: 12-25-2024 Clinical Support Encounter Andrea Farris MD, PhD Work Phone: Department of Radiation Oncology Comment on above: Metastatic cancer to spine (Primary Dx) Start: 12-25-2024 ambulatory SAM DEL TORO Facilit y:[facility] Start: 12-25-2024 End: 12-25-2024 Subsequent hospital visit by physician Andrea Farris MD, PhD Work Phone: Department of Radiation Oncology Comment on above: Arrived Start: 12-05-2024 End: 12-05-2024 Patient encounter procedure Andrea Farris MD, PhD Work Phone: Department of Radiation Oncology at [facility] Comment on above: Metastatic cancer to spine (Primary Dx) Start: 12-05-2024 ambulatory ANDREA FARRIS Facil ity:[facility] Start: 12-05-2024 End: 12-05-2024 Subsequent hospital visit by physician Andrea Farris MD, PhD Work Phone: Department of Radiology Comment on above: Arrived Start: 11-30-2024 End: 11-30-2024 Office consultation new/estab patient 80 min Andrea Farris MD, PhD Work Phone: Division of Multispecialty at [facility] Comment on above: Metastatic cancer to spine (Primary Dx) Start: 11-30-2024 End: 12-01-2024 Office outpatient visit 15 minutes Tiarra Fiore MD Work Phone: Division of Neuro Surgery at [facility] Comment on above: Metastatic cancer to spine (Primary Dx) Start: 11-30-2024 ambulatory SAM DEL TORO Facilit y:[facility] Start: 11-23-2024 ambulatory SAM DEL TORO Facilit y:[facility] Start: 11-23-2024 End: 11-23-2024 Subsequent hospital visit by physician Tiarra Fiore MD Work Phone: [facility] Comment on above: Arrived Start: 11-23-2024 End: 11-24-2024 Office outpatient new 45 minutes Tiarra Fiore MD Work Phone: Division of Neuro Surgery at [facility] Comment on above: Metastatic cancer to spine (Primary Dx) Start: 11-23-2024 ambulatory SAM DEL TORO Facilit y:[facility] Start: 11-20-2024 End: 11-20-2024 Dr. Sam Del Toro DO Work Phone: -Emergency Department Work Phone: Start: 11-20-2024 End: 11-20-2024 Emergency department patient visit Dr. Sam Del Toro DO Work Phone: [facility] Work Phone: Start: 11-20-2024 End: 11-20-2024 Dr. Jeffrey Kuhn MD -[facility] Work Phone: Start: 11-20-2024 End: 11-20-2024 ambulatory Sam Del Toro [place] [place]: 11-14-2024 End: 11-14-[address] Sam Del Toro DO Work Phone: [facility] Work Phone: Start: 11-14-2024 End: 11-14-[address] Mo Escobedo MD -Nuclear Medicine, [facility] Work Phone: Start: 11-14-2024 End: 11-14-2024 Dr. Mo Escobedo MD -Nuclear Medicine, [facility] Work Phone: Start: 11-14-2024 End: 11-14-2024 ambulatory Mo Escobedo Facility:[facility] Start: 11-09-2024 End: 11-09-2024 Dr. Sam Del Toro DO Work Phone: -Emergency Department Work Phone: Start: 11-09-2024 End: 11-09-2024 Emergency department patient visit Dr. Sam Del Toro DO Work Phone: [facility] Work Phone: Start: 11-09-2024 End: 11-09-2024 Dr. Sam Del Toro DO Work Phone: -Emergency Department Work Phone: Start: 11-09-2024 End: 11-09-2024 Emergency department patient visit Dr. Sam Del Toro DO Work Phone: -Emergency Department Work Phone: Start: 11-01-2024 [facility] Start: 10-23-2024 End: 10-23-[address] Jeffrey Kuhn MD -[facility] Work Phone: Start: 10-23-2024 End: 10-23-2024 Dr. Jeffrey Kuhn MD -[facility] Work Phone: Start: 10-23-2024 End: 10-23-2024 ambulatory Sam Del Toro [facility] [place] Start: 10-10-2024 End: 10-10-[address] Jeffrey Kuhn MD -[facility] Work Phone: Start: 10-10-2024 End: 10-10-2024 Dr. Jeffrey Kuhn MD -[facility] Work Phone: Start: 10-10-2024 End: 10-10-2024 ambulatory [facility] Facility[place] [place] Start: 10-05-2024 Non-patient / Non-visit Dr. Denise BUSBY -[facility] Start: 10-05-2024 End: 10-05-[address] Sam Del Toro DO Work Phone: [facility] Work Phone: Start: 10-05-2024 End: 10-05-[address] Mitchel Pereira MD -Cardiovascular Services Work Phone: Start: 10-05-2024 End: 10-05-2024 Dr. Patrice Loja MD -[facility] Start: 10-05-2024 End: 10-05-[address] [facility] Start: 10-04-2024 End: 10-04-2024 Dr. Moody Rodriguez DO -Emergency Department Work Phone: Start: 10-04-2024 End: 10-04-2024 Emergency department patient visit Dr. Sam Del Toro DO Work Phone: -Emergency Department Work Phone: Start: 09-12-[address] Jeffrey Kuhn MD -[facility] Start: 09-12-2024 End: 09-12-[address] Mitchel Pereira MD -[facility] Work Phone: Start: 09-12-2024 End: 09-12-2024 Dr. Mitchel Pereira MD -[facility] Work Phone: Start: 09-12-2024 End: 09-12-[address] [facility] [place] Start: 08-15-2024 End: 08-15-[address] Jeffrey Kuhn MD -[facility] Work Phone: Start: 08-15-2024 End: 08-15-2024 Dr. Jeffrey Kuhn MD -[facility] Work Phone: Start: 08-15-2024 End: 08-15-2024 ambulatory [facility] Facility:[facility] Start: 08-15-2024 End: 08-15-2024 Patient encounter procedure Jeremy Lin [employer]-Aaron -[facility] Work Phone: Start: 08-15-2024 End: 08-15-2024 Jeremy Lin [employer]-C -[facility] Work Phone: Start: 08-15-2024 End: 08-15-2024 ambulatory [facility] Start: 08-08-2024 ambulatory Patricekarl Loja [facility] Start: 08-08-2024 Non-patient / Non-[facility] Start: 08-08-2024 Dr. Patrice Loja MD [facility] Start: 08-08-2024 End: 08-08-[address] Jeffrey Kuhn MD -Cardiovascular Services Work Phone: Start: 08-08-2024 End: 08-08-2024 Dr. Jeffrey Kuhn MD -Cardiovascular Serv ices Work Phone: Start: 08-08-2024 End: 08-08-2024 [facility] Facility:[facility] Start: 07-13-2024 End: 07-13-[address] Jeffrey Kuhn MD -[facility] Work Phone: Start: 07-13-2024 End: 07-13-2024 Dr. Jeffrey Kuhn MD -[facility] Work Phone: Start: 07-13-2024 End: 07-13-2024 ambulatory [facility] Facility:[facility] Start: 07-11-2024 ambulatory [facility] Start: 07-11-2024 Non-patient / Non-visit [facility] Start: 07-11-2024 End: 07-11-[address] Jeffrey Kuhn MD -Cardiovascular Services Work Phone: Start: 07-11-2024 End: 07-11-2024 ambulatory [facility] Facility:[facility] Start: 07-04-2024 End: 07-04-[address] Jeffrey Kuhn MD -[facility] Work Phone: Start: 07-04-2024 End: 07-04-2024 ambulatory [facility] Facility:[facility] Start: 06-07-2024 End: 06-07-[address] Jeffrey Kuhn MD -[facility] Work Phone: Start: 06-07-2024 End: 06-07-2024 ambulatory [facility] Start: 05-18-2024 ambulatory [facility] Facility: [facility] Start: 05-09-2024 End: 05-09-2024 ambulatory [facility] [place] [place] Start: 04-17-2024 End: 04-17-2024 ambulatory [facility] Facility:[facility] Start: 10-29-2023 End: 10-29-[address] Sam Del Toro Work Phone: [facility] Work Phone: Start: 10-29-2023 End: 10-29-[address] Sam Del Toro Work Phone: [facility] [facility] Start: 09-28-[address] Sam Del Toro Work Phone: [facility] Start: 09-28-2023 End: 09-28-[address] Sam Del Toro Work Phone: [facility] Work Phone: Start: 09-21-2023 End: 09-21-2023 ambulatory [facility] Work Phone: Start: 09-21-2023 End: 09-21-2023 Patient encounter procedure [facility] Work Phone: Start: 10-21-2022 End: 10-21-[address] Sam Del Toro Work Phone: [facility] Work Phone: Start: 10-21-2022 End: 10-21-[address] Sam Del Toro Work Phone: [facility]/Neurology Start: 10-09-2022 End: 10-09-[address] Sam Del Toro Work Phone: [facility] Start: 10-01-2022 End: 10-01-[address] Sam Del Toro Work Phone: [facility] Work Phone: Start: 10-01-2022 End: 10-01-[address] Sam Del Toro Work Phone: [facility], [facility] Start: 09-17-[address] Sam Del Toro Work Phone: [facility] Start: 09-17-2022 End: 09-17-[address] Sam Del Toro Work Phone: [facility] Start: 09-14-2022 End: 09-14-[address] Sam Del Toro Work Phone: [facility] Work Phone: Start: 09-14-2022 End: 09-14-[address] Sam Del Toro Work Phone: [facility] Scan, [facility] Start: 09-07-2022 End: 09-07-[address] Sam Del Toro Work Phone: [facility] Work Phone: Start: 09-07-2022 End: 09-07-[address] Sam Del Toro Work Phone: [facility] Start: 08-05-2022 End: 08-05-[address] Sam Del Toro Work Phone: [facility] Work Phone: Start: 08-05-2022 End: 08-05-[address] [facility] o[facility]ro [facility] Start: 07-29-2022 End: 07-29-[address] Sam Del Toro Work Phone: [facility] Start: 05-13-[address] Sam Del Toro Work Phone: [facility] Start: 05-13-2022 End: 05-13-[address] Sam Del Toro Work Phone: [facility] Start: 05-11-2022 End: 05-11-[address] Sam Del Toro Work Phone: [facility] Work Phone: Start: 05-11-2022 End: 05-11-[address] Sam Del Toro Work Phone: [facility] Start: 04-30-2022 End: 04-30-[address] Sam Del Toro Work Phone: [facility] Start: 04-25-2022 End: 04-25-[address] Sam Del Toro Work Phone: [facility] Work Phone: Start: 04-25-2022 End: 04-25-[address] [facility] Start: 04-21-2022 End: 04-21-[address] Sam Del Toro Work Phone: [facility] Work Phone: Start: 04-21-2022 End: 04-21-[address] Sam Del Toro [facility] Start: 04-17-2022 End: 04-17-[address] Sam Del Toro Work Phone: [facility] Start: 04-13-2022 End: 04-13-[address] Sam Del Toro Work Phone: [facility] Start: 03-23-2022 End: 03-23-[address] Sam Del Toro Work Phone: [facility] Start: 03-09-2022 End: 03-09-[address] Sam Del Toro Work Phone: [facility] Start: 03-05-2022 End: 03-05-[address] Sam Del Toro Work Phone: [facility] Start: 02-25-2022 Non-patient / Non-visit Dr. Carlee Del Toro Work Phone: [facility] Start: 02-25-2022 End: 02-25-2022 Admission to same day surgery center Dr. Sam Del [facility]o [facility] Start: 02-11-2022 End: 02-11-[address] Sam Del Toro Work Phone: [facility] Start: 01-17-2022 End: 01-17-2022 Emergency department patient visit Dr. Sam Del Toro Work Phone: [facility] Start: 01-12-[address] Sam Del Toro Work Phone: [facility] Start: 01-12-2022 End: 01-12-[address] Sam Del Toro Work Phone: [facility] Start: 01-06-2022 Non-patient / Non-visit Dr. Carlee Del Toro Work Phone: [facility] Start: 01-05-2022 Non-patient / Non-visit Dr. Carlee Del Toro Work Phone: [facility] Start: 01-05-2022 Non-patient / Non-visit Dr. Carlee Del Toro Work Phone: [facility] Start: 01-04-2022 Non-patient / Non-visit Dr. Carlee Del Toro Work Phone: [facility] Start: 01-03-2022 End: 01-06-2022 Evaluation and management of inpatient Dr. Sam Del Toro Work Phone: [facility] 3 Start: 01-01-2022 Non-patient / Non-visit Dr. Carlee Del Toro Work Phone: [facility] Start: 12-31-2021 Non-patient / Non-visit Dr. Carlee Del Toro Work Phone: [facility] Start: 12-31-2021 Non-patient / Non-visit Dr. Carlee Del Toro Work Phone: [facility] Start: 12-30-2021 Non-patient / Non-visit Dr. Carlee Del Toro Work Phone: [facility] Start: 12-30-2021 Non-patient / Non-visit Dr. Carlee Del Toro Work Phone: [facility] Start: 12-29-2021 Non-patient / Non-visit Dr. Carlee Del Toro Work Phone: [facility] Start: 12-29-2021 Non-patient / Non-visit Dr. Carlee Del Toro Work Phone: [facility] Start: 12-28-2021 Non-patient / Non-visit Dr. Carlee Del Toro Work Phone: [facility] Start: 12-28-2021 Non-patient / Non-visit Dr. Carlee Del Toro Work Phone: [facility] Start: 12-28-2021 Non-patient / Non-visit Dr. Carlee Del Toro Work Phone: [facility] Start: 12-27-2021 Non-patient / Non-visit Dr. Carlee Del Toro Work Phone: [facility] Start: 12-27-2021 End: 01-01-2022 Evaluation and management of inpatient Dr. Sam Del Toro Work Phone: [facility] Start: 12-23-2021 End: 12-23-[address] Sam Del Toro Work Phone: [facility], [facility] Start: 12-15-2021 Non-patient / Non-visit Dr. Carlee Del Toro Work Phone: [facility] Start: 12-15-2021 End: 12-15-[address] Sam Del Toro Work Phone: [facility] Start: 12-15-2021 Non-patient / Non-visit Dr. Carlee Del Toro Work Phone: [facility] Start: 12-10-2021 End: 12-10-[address] Sam Del Toro Work Phone: [facility] Start: 12-03-2021 Non-patient / Non-visit Dr. Carlee Del Toro Work Phone: [facility] Start: 12-03-2021 End: 12-03-[address] Sam Del Toro Work Phone: [facility] Start: 11-07-2021 End: 11-07-[address] Sam Del Toro Work Phone: [facility] Start: 11-05-2021 End: 11-05-[address] [facility] Start: 10-08-2021 End: 10-08-[address] Sam Del Toro Work Phone: [facility] Start: 10-02-2021 End: 10-02-[address] Sam Del Toro Work Phone: [facility] Start: 09-25-[address] Sam Del Toro Work Phone: [facility] Start: 09-25-2021 End: 09-25-[address] Sam Del Toro Work Phone: [facility] Start: 08-28-2021 End: 08-28-[address] Sam Del Toro Work Phone: [facility] Start: 08-26-2021 End: 08-26-[address] Sam Del Toro Work Phone: [facility], Specimen Start: 08-14-2021 End: 08-14-[address] Sam Del Toro Work Phone: [facility] Start: 07-31-2021 End: 07-31-[address] Sam Del Toro Work Phone: [facility] Procedures Date Procedure Procedure Detail Performing Clinician Start: 01-11-2025 CARDIAC RHYTHM Other Ot her OT Start: 01-11-2025 Glucose measurement, blood Chris Tolbert MD Work Phone: Start: 01-11-2025 Glucose measurement, blood Chris Tolbert MD Work Phone: Start: 01-11-2025 Assay of magnesium Viridiana Barrow EXTRACTOR PLANT OPERATOR-[employer]PERINTENDENT [employer] Work Phone: Start: 01-10-2025 Glucose measurement, blood Chris Tolbert MD Work Phone: Start: 01-10-2025 Glucose measurement, blood Chris Tolbert MD Work Phone: Start: 01-10-2025 Dup-scan xtr veins c omplete bilateral study Yoselin Hoffman PA-C Work Phone: Start: 01-10-2025 Glucose measurement, blood Chris Tolbert MD Work Phone: Start: 01-10-2025 Bilirubin direct Lisa Barrow EXTRACTOR PLANT OPERATOR-SUPERINTENDENT [employer] Work Phone: Start: 01-09-2025 End: 01-09-2025 Glucose [...] Assay of magnesium Viridiana ra L Pushpa EXTRACTOR PLANT OPERATOR-SUPERINTENDENT [employer] Work Phone: Start: 01-09-2025 CHRONIC HEPATITIS PANEL(DIALYSIS, [...] mptv id isolate ea urine Lisa Barrow EXTRACTOR PLANT OPERATOR-SUPERINTENDENT [employer] Work Phone: Start: 01-09-2025 EXTRA MICRO Lisa L K erins EXTRACTOR PLANT OPERATOR-SUPERINTENDENT [employer] Work Phone: Start: 01-09-2025 URINALYSIS REFLEX TO CULTURE Lisa Barrow EXTRACTOR PLANT OPERATOR-SUPERINTENDENT [employer] Work Phone: Start: 01-09-2025 End: 01-09-2025 Glucose [...] Work Phone: Start: 10-04-2024 Blood count smear [facility] w/mnl difrntl wbc count Dr. Sam [...] RSV VACCINE (1 - 1-dose 75+ series) [facility] Start: 03-22-2025 End: 03-22-2025 Patient encounter procedure 03/22/2025 2:00 PM EDT Office Visit Division of Multispecialty at [facility] [address] [place] [address] [id number] Andrea Farris MD, PhD [address] [place] [address] [phone] Division of Multispecialty at [facility] Start: 03-19-2025 End: 03-19-2025 Patient encounter procedure 03/19/2025 3:30 PM EDT Appointment [facility] [address] [phone] Andrea Farris MD, PhD [address] [place] [address] [phone] [facility] Start: 03-19-2025 End: 03-19-2025 Patient encounter procedure 03/19/2025 12:10 PM EDT Appointment Imaging [facility] [address] [place] [phone] Andrea Farris MD, PhD [address] [place] [address] [phone] Imaging [facility] Start: 03-19-2025 Subsequent hospital visit by physician 03/19/2025 12:10 PM EDT Hospital Encounter Imaging [facility] [address] [place] [phone] Andrea Farris MD, PhD [address] [place] [phone] Imaging [facility] Start: 03-19-2025 ambulatory Ambulatory Facility:[facility] Start: 01-19-2025 End: 01-19-2025 Patient encounter procedure 01/19/2025 1:30 PM EDT Office Visit Department of Radiation Oncology at [facility] [address] [facility] [phone] Jenifer Rubin, EXTRACTOR PLANT OPERATOR-SUPERINTENDENT [employer]ODUCTION [address] [place] [address] [place] [address] Department of Radiation Oncology at [facility] Start: 01-08-2025 [facility] Start: 01-08-2025 [facility] Start: 01-08-2025 End: 01-08-2025 [facility] Start: 12-29-2024 End: 12-29-2024 Patient encounter [...] of 2 - CpG 2-dose series) [facility] Start: 11-30-2024 End: 11-30-2024 Patient encounter procedure Division of Neuro Surgery at [facility] Start: 11-23-2024 End: 11-22-2025 MR Brain WO and W contrast IV MRI BRAIN WITH AND WITHOUT CONTRAST Imaging STAT Metastatic cancer to spine Expected: 11/23/2024, Expires: 11/22/2025 [facility] Comment on above: Expected: 11/23/2024, Expires: Start: 11-23-2024 End: 11-22-2025 MR Lumbar spine WO and W contrast IV MRI SPINE LUMBAR WITH AND WITHOUT CONTRAST Imaging STAT Metastatic cancer to spine Expected: 11/23/2024, Expires: 11/22/2025 [facility] Comment on above: Expected: 11/23/2024, Expires: Start: 11-09-2024 [facility] Start: 11-09-2024 [facility] Start: 11-09-2024 [facility] Start: 11-09-2024 [facility] Start: 11-09-2024 Chemotherapy care management [facility] Start: 10-04-2024 [facility] Start: 03-26-2024 COVID-19 VACCINE ( season) COVID-19 VACCINE () [facility] Start: 02-25-2022 Patient discharge [facility] Work Phone: Start: 02-25-2022 Anesthesia vascular shunt/shunt revision ANESTH VASCULAR SHUNT SURG [facility] Work Phone: Start: 02-25-2022 Arteriovenous anastomosis open direct AV FUSION DIRECT ANY SITE [facility] Work Phone: Start: 01-17-2022 [facility] Work Phone: Start: 01-06-2022 Patient discharge [facility] Work Phone: Start: 01-04-2022 Consultation [facility] Work Phone: Start: 01-04-2022 Enteric precautions [facility] Work Phone: Start: 01-03-2022 Following clinical pathway protocol [facility] Work Phone: Start: 01-03-2022 Assessment of risk of venous thromboembolism [facility] Work Phone: Start: 01-03-2022 Insertion of catheter into peripheral vein [facility] Work Phone: Start: 01-03-2022 Measuring intake and output [facility] Work Phone: Start: 01-03-2022 Providing care according to standard [facility] Work Phone: Start: 01-03-2022 Provision of activity privileges [facility] Work Phone: Start: 01-03-2022 [facility] Work Phone: Start: 01-03-2022 Admission procedure [facility] Work Phone: Start: 01-03-2022 Patient referral to dietitian [facility] Work Phone: Start: 01-01-2022 Patient discharge [facility] Work Phone: Start: 12-31-2021 [facility] Work Phone: Start: 12-31-2021 Administration of blood product [facility] Work Phone: Start: 12-30-2021 [facility] Work Phone: Start: 12-30-2021 Application of intermittent pneumatic compression device [facility] Work Phone: Start: 12-29-2021 [facility] Work Phone: Start: 12-29-2021 Administration of blood product [facility] Work Phone: Start: 12-29-2021 Administration of blood product [facility] Work Phone: Start: 12-28-2021 [facility] Work Phone: Start: 12-28-2021 Administration of blood product [facility] Work Phone: Start: 12-28-2021 Referral to general surgeon [facility] Work Phone: Start: 12-28-2021 Care planning and problem solving actions [facility] Work Phone: Start: 12-27-2021 End: 12-28-2021 [facility] Work Phone: Start: 12-27-2021 Bacteria identified in Blood by Culture Blood Culture [facility] Work Phone: Start: 12-27-2021 End: 12-27-2021 Consultation [facility] Work Phone: Start: 12-27-2021 Peripherally inserted central catheter care [facility] Work Phone: Start: 12-27-[address] [facility] Work Phone: Start: 12-27-2021 Application of elastic bandage [facility] Work Phone: Start: 12-27-2021 Elevation of affected extremity [facility] Work Phone: Start: 12-27-2021 End: 12-27-2021 Notification of physician [facility] Work Phone: Start: 12-27-2021 End: 12-27-2021 Patient education [facility] Work Phone: Start: 12-27-2021 End: 12-27-2021 Consultation [facility] Work Phone: Start: 12-27-2021 Referral to director e learning [facility] Work Phone: Start: 12-27-2021 Oxygen therapy [facility] Work Phone: Start: 12-27-2021 Ambulation without limitation [facility] Work Phone: Start: 12-27-2021 Assessment of risk of venous thromboembolism [facility] Work Phone: Start: 12-27-2021 Incentive spirometry [facility] Work Phone: Start: 12-27-2021 Insertion of catheter into peripheral vein [facility] Work Phone: Start: 12-27-2021 Measuring intake and output [facility] Work Phone: Start: 12-27-2021 Providing care according to standard [facility] Work Phone: Start: 12-27-2021 Referral to occupational therapist [facility] Work Phone: Start: 12-27-2021 Referral to service [facility] Work Phone: Start: 12-27-2021 Following clinical pathway protocol [facility] Work Phone: Start: 12-27-2021 Admission procedure [facility] Work Phone: Start: 12-27-2021 Patient referral to dietitian [facility] Work Phone: Start: 04-10-2021 Medication monitoring [facility] Start: 04-10-[address] [facility] Start: 04-10-2021 [facility] Start: 03-20-2021 Medication monitoring [facility] Start: 03-20-[address] [facility] Start: 03-20-2021 [facility] Start: 02-27-2021 Medication monitoring [facility] Start: 02-27-[address] [facility] Start: 02-27-2021 [facility] Start: 02-06-2021 Medication monitoring [facility] Start: 02-06-[address] [facility] Start: 02-06-2021 [facility] Start: 01-09-2021 Medication monitoring [facility] Start: 01-09-[address] [facility] Start: 01-09-2021 [facility] Start: 12-19-2020 Medication monitoring [facility] Start: 12-19-[address] [facility] Start: 12-19-2020 [facility] Start: 11-28-2020 Medication monitoring [facility] Start: 11-28-[address] [facility] Start: 11-28-2020 [facility] Start: 11-07-2020 Medication monitoring [facility] Start: 11-07-[address] [facility] Start: 11-07-2020 [facility] Start: 10-31-2020 Venous catheter care management [facility] Start: 10-17-2020 Medication monitoring [facility] Start: 10-17-2020 Precautionary procedure [facility] Start: 10-17-2020 [facility] Start: 09-26-2020 Medication monitoring [facility] Start: 09-26-2020 Precautionary procedure [facility] Start: 09-26-2020 [facility] Start: 09-05-2020 Medication monitoring [facility] Start: 09-05-2020 Precautionary procedure [facility] Start: 09-05-2020 [facility] Start: 08-15-2020 Medication monitoring [facility] Start: 08-15-2020 Precautionary procedure [facility] Start: 08-15-2020 [facility] Start: 07-25-2020 Medication monitoring [facility] Start: 07-25-2020 Precautionary procedure [facility] Start: 07-25-2020 [facility] Start: 07-04-2020 Medication monitoring [facility] Start: 07-04-2020 Precautionary procedure [facility] Start: 07-04-2020 [facility] Start: 06-13-2020 Medication monitoring [facility] Start: 06-13-2020 Precautionary procedure [facility] Start: 06-13-2020 [facility] Start: 05-23-2020 Medication monitoring [facility] Start: 05-23-2020 Precautionary procedure [facility] Start: 05-23-2020 [facility] Start: 05-02-2020 Medication monitoring [facility] Start: 05-02-2020 Precautionary procedure [facility] Start: 05-02-2020 [facility] Start: 04-11-2020 Medication monitoring [facility] Start: 04-11-2020 Precautionary procedure [facility] Start: 04-11-2020 [facility] Start: 03-21-2020 Medication monitoring [facility] Start: 03-21-2020 Precautionary procedure [facility] Start: 03-21-2020 [facility] Start: 02-29-2020 Medication monitoring [facility] Start: 02-29-2020 Precautionary procedure [facility] Start: 02-29-2020 [facility] Start: 02-08-2020 Medication monitoring [facility] Start: 02-08-2020 Precautionary procedure [facility] Start: 02-08-2020 [facility] Start: 01-18-2020 Medication monitoring [facility] Start: 01-18-2020 Precautionary procedure [facility] Start: 01-18-2020 [facility] Start: 12-28-2019 Medication monitoring [facility] Start: 12-28-2019 Precautionary procedure [facility] Start: 12-28-2019 [facility] Start: 12-07-2019 Medication monitoring [facility] Start: 12-07-2019 Precautionary procedure [facility] Start: 12-07-2019 [facility] Start: 11-16-2019 Medication monitoring [facility] Start: 11-16-2019 Precautionary procedure [facility] Start: 11-16-2019 [facility] Start: 10-23-2019 Medication monitoring [facility] Start: 10-23-2019 Precautionary procedure [facility] Start: 10-23-2019 [facility] Start: 2014 RSV VACCINE (1 - Risk 60-74 years 1-dose series) RSV VACCINE (1 - Risk 60-74 years 1-dose series) [facility] Start: 2009 Prostate specific antigen measurement PROSTATE CANCER SCREENING DISCUSSION [facility] Start: 2004 Pneumococcal vaccination PNEUMOCOCCAL VACCINE SERIES (1 of 1 - PCV) [facility] Start: 2004 Zoster vaccine hzv live for subcutaneous use ZOSTER (SHINGLES) VACCINE (1 of 2) [facility] Start: 12-25-1999 Screening for malignant neoplasm of colon COLORECTAL CANCER SCREENING DISCUSSION [facility] Start: 1994 Lipid panel LIPID SCREENING [facility] Start: 1973 Pneumococcal vaccination PNEUMOCOCCAL VACCINE SERIES (1 of 2 - PCV) [facility] Start: 1973 Third diphtheria, tetanus and acellular pertussis (DTaP) vaccination TDAP (ADULT) [facility] Start: 1973 Zoster vaccine hzv live for subcutaneous use ZOSTER (SHINGLES) VACCINE (1 of 2) [facility] Start: 12-25-1959 COVID-19 VACCINE (#1) COVID-19 VACCINE (#1) [facility] Start: 1954 Hepatitis C screening HEPATITIS C VIRUS SCREENING [facility] Start: 1954 Tetanus vaccination TETANUS [facility] Start: 1954 Thyroid stimulating hormone measurement TSH [facility] CBC W Auto Different ial panel - Blood [facility] Work Phone: CBC W Auto Different ial panel - Blood [facility] [employer] FORMER [facility] ONC SIMULATION [place] FORMER RAD O NC SIMULATION Imaging Routine Metastatic cancer to spine 12/05/2024 9:39 AM EDT [facility] Work Phone: Comprehensive metabo lic 2000 panel - Serum or Plasma [facility] End: 11-23-2024 CT Cervical and thoracic and lumbar spine WO contrast [facility] Comment on above: 1 Occurrences starting 11/23/2024 until 11/23/2024 CT Chest and Abdomen and Pelvis WO contrast [facility] Work Phone: Lactate dehydrogenas e measurement [facility] LDH [facility] Work Phone: End: 11-23-2024 MR Thoracic spine WO and W contrast IV [facility] Comment on above: 1 Occurrences starting 11/23/2024 until 11/23/2024 Patient Education [facility] Work Phone: Patient referral [facility] Work Phone: End: 01-10-2025 PTH INTACT [facility] Comment on above: One Time for 1 Occurrences starting 12/24 until 01/10/2025 End: 01-08-2025 Standard ECG [facility] Comment on above: One Time for 1 Occurrences starting 12/24 until 01/08/2025 T4 free measurement [facility] Work Phone: Thyroid stimulating hormone measurement [facility] Work Phone: Urine culture [facility] End: 01-10-2025 VITAMIN D (25-HYDROXY,TOTAL) [facility] Comment on above: One Time for 1 Occurrences starting 12/24 until 01/10/2025 Immunizations Immunization Date Immunization Notes Care Provider Fa cility 04-25-2020 influenza, injectabl e, quadrivalent, preservative free [facility] 04-25-2020 influenza, seasonal, injectable Dr. Sam Del Toro Work Phone: [facility] 04-04-2020 Fluad Quad (65yr up)(PF) 60 mcg (15 mcg x 4)/0.5mL IM syringe (flu vac Dr. Sam Del Toro Work Phone: [facility] Work Phone: 05-22-2015 influenza, injectabl e, quadrivalent, preservative free [facility] 05-22-2015 influenza, seasonal, injectable Dr. Sam Del Toro Work Phone: [facility] Payers Date Payer Category Payer Medicare (Managed Care) [employer] [place] H[employer] PPO [id number] 2019 Medicare [id number] 2019 Self-pay 2016 Unknown [id number] 1954 Unknown [id number] 2.16.840.1.528276.3.579.2. 594 1954 Unknown [id number] 2.16.840.1.836056.3.579.2. 594 1954 Unknown [id number] 2.16.840.1.418032.3.579.2. 594 1954 Unknown [id number] 2.16.840.1.052117.3.579.2. 594 1954 Unknown [id number] 2.16.840.1.669786.3.579.2. 594 1954 Unknown [id number] 2.840.1.901240.3.579.2. 594 1954 Unknown [id number] 2.840.1.261790.3.579.2. 594 1954 Unknown [id number] 2.840.1.365431.3.579.2. 594 1954 Unknown [id number] 2.840.1.170231.3.579.2. 594 1954 Unknown [id number] 2.16840.1.608242.3.579.2. 594 1954 Unknown [id number] 2.16840.1.019309.3.579.2. 594 1954 Unknown [id number] 2.16840.1.373689.3.579.2. 594 1954 Unknown [id number] 2.16.840.1.745715.3.579.2. 594 1954 Unknown [id number] 2.16.840.1.163087.3.579.2. 594 1954 Unknown [id number] 2.16.840.1.020106.3.579.2. 594 1954 Unknown [id number] 2.16.840.1.753165.3.579.2. 594 1954 Unknown [id number] 2.16.840.1.283752.3.579.2. 594 1954 Unknown [id number] 2.16.840.1.177476.3.579.2. 594 1954 Unknown [id number] 2.16.840.1.348365.3.579.2. 594 1954 Unknown [id number] 2.840.1.213223.3.579.2. 594 Medicare [id number] Self-pay SELF PAY INSURANCE [id number] Unknown [id number] 2.840.1.319158.3.579.2. 462 Unknown [id number] 2.840.1.136772.3.579.2. 462 Unknown [id number] 2.840.1.740984.3.579.2. 462 Unknown [id number] 2.840.1.538056.3.579.2. 462 Unknown [id number] 2.840.1.698128.3.579.2. 462 Unknown [id number] 2.840.1.965985.3.579.2. 462 Unknown [id number] 2.840.1.773215.3.579.2. 462 Unknown [id number] 2.840.1.176056.3.579.2. 462 Unknown [id number] 2.840.1.516550.3.579.2. 462 Unknown [id number] 2.16.840.1.500740.3.579.2. 462 Unknown [id number] 2.16840.1.180059.3.579.2. 462 Unknown [id number] 2.840.1.073951.3.579.2. 462 Unknown [id number] 2.16.840.1.843667.3.579.2. 462 Unknown [id number] 2.16.840.1.097422.3.579.2. 462 Unknown [id number] 2.16.840.1.989679.3.579.2. 462 Unknown [id number] 2.16.840.1.823165.3.579.2. 462 Unknown [id number] 2.16.840.1.979485.3.579.2. 462 Unknown [id number] 2.16.840.1.765517.3.579.2. 462 Unknown [id number] 2.16.840.1.689173.3.579.2. 462 Unknown [id number] 2.16.840.1.440481.3.579.2. 462 Unknown [id number] 2.16.840.1.985680.3.579.2. 462 Unknown [id number] 2.16.840.1.099178.3.579.2. 462 Unknown [id number] 2.16.840.1.039243.3.579.2. 462 Unknown [id number] 2.16.840.1.468448.3.579.2. 462 Unknown [id number] 2.16.840.1.451042.3.579.2. 462 Unknown [id number] 2.16840.1.441353.3.579.2. 462 Social History Date Type Detail Facility Start: 11-07-2021 End: 05-14-2023 Tobacco smoking status NHIS Unknown if ever smoked [facility] Start: 07-03-2019 None [facility] Start: 07-08-2019 Spouse/ Signif icant Other [facility] Start: 11-07-2020 Non-smoker [facility] Start: 1955 Sex Assigned At Male [facility] Start: 10-04-2024 End: 11-23-2024 Tobacco smoking status NHIS Never smoked tobacco (finding) [facility] Start: 10-04-2024 End: 11-22-2024 Sex Male (finding) [facility] Start: 11-23-2024 Tobacco use and exposure Smokeless tobacco non-user [facility] Start: 11-23-2024 End: 01-08-2025 Alcoholic beverage intake Ex-drinker (finding) [facility] Start: 11-23-2024 End: 11-30-2024 History of Social function [facility] Start: 11-23-2024 End: 11-30-2024 Tobacco use panel [facility] Adolescent depressio n screening assessment 0 [facility] Start: 1955 Sex assigned at Not on file O [facility] How often to you hav e a drink containing alcohol? Never [facility] Medical Equipment Procedure Code Equipment Code Equipment [...] 25 4:41 PM EDT Brenna Arevalo LISW [facility] 01-09-2025 Are you deaf, or do you have serious difficulty hearing No 01/09/2025 5:00 AM EDT Inga Acuna, MAYNOR No [facility] 01-09-2025 Are you blind, or do you have serious difficulty seeing, even when wearing glasses No 01/09/2025 5:00 AM EDT Inag Acuna, MAYNOR No [facility] 01-09-2025 Do you have serious difficulty walking or climbing stairs Yes 01/09/2025 5:00 AM EDT Inga Acuna, RN Yes [facility] 01-09-2025 Do you have difficul ty dressing or bathing Yes 01/09/2025 5:00 AM EDT Inga Acuna, RN Yes [facility] 01-09-2025 Because of a physica l, mental, or emotional condition, do you have difficulty doing errands alone such as visiting a physician's office or shopping No 01/09/2025 5:00 AM EDT Inga Acuna RN No [facility] 01-06-2022 Functional status Chair [facility] Work Phone: 01-01-2022 Functional status Chair [facility] Work Phone: [facility] Mental Status Date Assessment Result Facility 01-09-2025 Because of a physica l, mental, or emotional condition, do you have serious difficulty concentrating, remembering, or making decisions No 01/09/2025 5:00 AM EDT Inga Acuna RN No [facility] 02-25-2022 Cognitive function Voice/Name [facility] Work Phone: 01-06-2022 Cognitive function Voice/Name [facility] Work Phone: 01-01-2022 Cognitive function Voice/Name [facility] Work Phone: 07-20-2019 Cognitive function Appropriate;C wesley;Relax ed [facility] Work Phone: Clinical Notes 06-07-2024 to [...] left unit via wheelchair without incident. [facility] 01-11-2025 Miscellaneous Notes Patient is being [...] Fellow Physician Hematology and Medical Oncology [facility] Problem: Adult Inpatient Plan of Care [...] BID and PRN if soiled. [facility] Discharge Recommendations: Patient may continue care [...] to Air Assessment Painful;Yellow;Moist Virgen-Wound Assessment Moist ;Intact;Larwill Non-staged Wound Description Partial thickness Wound Length [...] sign off at this time. Please page #[phone] or secure chat [facility] Ost[facility]. Shirley MATHEW, RN-, CWON [phone] 01/10/25 1345 Tx Assessment/Safety (Pre/Post) Blood Liters Processed (BLP) 78.6 Transport Modality bed Dialyzer Clearance streaked Tolerance to Dialysis Procedure Well, net uf 2.5L removed, via L-avf. Maintained soft bradycardic, & in B/C-prof per crit Treatment Assessment UF Goal/mL: 06987 Fluid Removed/mL: 2800 ml Machine Temperature 98.2 [...] Additional Restrictions none Changes In Status no [place] Procedure Orders Written no Sending RN/Tech Name Geovany RN Phone [phone] Returning to Patient Care Unit Transport yes [...] Providers Updated In IHIS No Contact Information Monotype Keyboard Operator/SW Added to Care Team Yes This Spiral Winder is Primary Monotype Keyboard Operator/SW Yes Monotype Keyboard Operator Name Anali Natarajan Monotype Keyboard Operator's Social Work Contact Name see care team [...] No Initial Discharge Planning Home Care Services (CHAMBER MAGISTRATE) No Home Therapies (CHAMBER MAGISTRATE) None DME (CHAMBER MAGISTRATE) Straight cane;Rollator Patient Goal for Discharge Return home with assistance from family and friends Expected Discharge Disposition Anticipated Services at Discharge Jail;Physical Therapy;Occupational Therapy;Outpatient follow up Current Discharge Risk [...] team updated. QUINCY Greer RN Patient Care Private Client Advisor P: [phone] *for evening (4:30 PM - 8:00 AM) or weekend/holiday needs, please page [phone] Problem: OT - ADLs Goal: Lower Body [...] Arterial Pressure (AP) mmHg -210 Venous Pressure (MEMBERSHIP COUNSELOR) mmHg 150 Transmembrane Pressure (TMP) mmHg 90 [...] Transport O2 NC Changes In Status no [place] Procedure Orders Written no Sending RN/Tech Name Yasmany Phone [phone] Returning to Patient Care Unit Transport yes [...] the floor documented in this encounter [facility] 01-11-2025 History of Present illness Narrative PCRM notified of request for home health, instead of SNF. Home health referral started in [place]. Spoke with son Melissa and let him know the process. As soon as I have agencies accepting, I will call him back for preference and arrange for services. Team made aware. Lachelle Gallo RN, PCRM [phone] For evening and weekend discharge assistance please page the rn oncology PCRM at [phone]. Discharge Planning for Home Health Options for [...] a tumor thrombus at OSH. Services needed: Jail, OT, [facility] professional[facility]ail Needs SN - Develop a plan of [...] None Wound Care Contact dermatitis coccyx - DIRECT CARE SPECIALIST Oxygen requirements / airway Room air Lab work: type and frequency To be determined Specialty Medications: (chemotherapy / IV antibiotics / Hydration) N/A Additional information regarding needed services: N/A Teachable Caregiver / Family Support: Son is a teachable caregiver and will be willing to work with [place] to obtain education if there are complex teaching services needed for the patient. Physician following for home care orders / phone: Tiarra Fiore MD - Neuro Surg P: [phone] F: [phone] Outpatient PCRM / phone: N/A Final plan will be determined closer to discharge, pending therapy and medical team recommendations. Patient/family verbalized understanding and agreement with the plan of care. Patient/family have no questions at this time. PCRM will continue to follow patient with multidisciplinary team for ongoing assessment of needs and for discharge planning. Medical team updated. Lachelle Gallo RN, PCRM [phone] For evening and weekend discharge assistance please page the rn oncology PCRM at [phone]. Summary: SW Consult SW Consult Reason for [...] Interventions: SW informed PCRM of HHC request. distillery worker general has updated the medical team. distillery worker general remains available to assist in discharge planning, emotional support, and resource needs. SPEEDY Sandy Social Work IRP Pager [phone] For Evening (4:30pm-8am), Weekend, and Holiday SW needs please call [phone] or page [phone]. 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 Patient was alert and oriented x4 and agreeable to SW visit. Significant other Heidi and dtr in [facility] [place] also at bedside and patient agreeable to assessment with family present. Contact Information: Social Work Contact Name: Brenna Colin Wage Hand's Advance Directive Discussion: Per chart review, patient does not have any advance directives on file, however, patient reports that they have already completed advance directives and states the document(s) are at home. SW reviewed that without completed document on file, per [place] Law, sons, (see below) would be their Legal NOK for decision making. SW requested patient provide the hospital with a copy of the document when possible so that it can be scanned into their medical record. Patient agreeable to this plan; and family plans to look for it at patient's home this evening. 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 Anticipated Discharge Plan: Anticipated Discharge Plan: Jail Facility SW reviewed PT/OT current recommendations; family discussed with patient option of SNF vs home vs short term staying with son; patient in agreement to consider SNF for short term rehab at this time. Estimated Discharge Date: possibly over the weekend Referred Level of Care: Jail Facility Discharge Considerations: medical stability, accepting SNFs, [...] needed during inpatient stay. PEGGY Holder Flo Wage Hand Pager [phone] For Evening (4:30pm-8am), Weekend, and Holiday SW needs please call [phone] or page [phone]. Hemodialysis Note: Patient seen on HD Ix: [...] Nephrology Attending Please page fellow pager on FilmBreak with questions or concerns CANCER MEDICINE INPATIENT [...] -give nephrocaps 1 tab daily while on LEARNING ENGINEER -low Na, low K, low phos, high [...] signs of inflammation. Neck no rigidity. Not SENECA-CAYUGA. MMM. Respiratory: Clear to auscultation bilaterally, no [...] MD: in agreement. Yoselin Hoffman PA-C Pager: [phone] The provider may be reached from 7a-7p at pager listed on QGenda. After these hours please page the manager patient or moonlighter. Cosigned by Chris Tolbert MD at 01/11/2025 8:17 AM EDT Associated [...] with SNF placement. Chris Tolbert MD Clinical Fractionation Supervisor Division of Hospital Medicine Pager [phone] Acute Occupational Therapy Evaluation Prior Gross Functional Mobility: independent, used device Current AM-PAC score(s): CURRENT AM-PAC Activity Raw Score: 17 Based on the above AM-PAC score(s) and OT clinical judgment, discharge destination recommendation is: Jail Facility Barriers to discharge home: Patient needs [...] transport as needed IADL History Primary Language: Czech Objective/Observation: Vitals/Vitals Responses to Treatment: WFL O2 [...] Edema: Mobility Assessment: Supine to Sit Mobility Martin Level: Supine->Sit: moderate assist (50% patient effort) [...] trunk into upright Sit to Supine Mobility Martin Level: Sit->Supine: not tested Skilled Intervention/Details: Sit->Supine: pt seated in chair at end of session Transfer Assessment: Sit to Stand Transfer Martin Level: Sit->Stand: minimum assist (75% patient effort) Physical Assist: Sit->Stand: 2 person assist Assistive Device: Sit->Stand: gait belt, hand held assist Skilled Rationale: Positioning, Hand placement, Verbal cues, Technique of activity Skilled Intervention/Details: Sit->Stand: x2 from EOB; arm in arm support Stand to Sit Transfer Martin Level: Stand->Sit: minimum assist (75% patient effort) [...] descent with fair carryover/eccentric control Bed-Chair Transfer Martin Level: Bed<->Chair: minimum assist (75% patient effort) [...] currently uses wheelchair?: No Outcome Score(s): CURRENT [facility] Daily Activity Inpatient Short Form Putting on/Taking Off Lower Body Clothin - A Lot of Assistance Bathin - A Lot of Assistance Toiletin - A Little Assistance Putting on/Taking Off Upper Body Clothin - A Little Assistance Groomin - A Little Assistance Eatin - No Assistance CURRENT [facility] Activity Raw Score: 17 CURRENT [facility] Activity Functional Limitation/Modifier: 50.11% Currently Impaired in [...] is a good candidate for discharge to Jail Facility Barriers to discharge home: Patient unable [...] areas) Mobility Assessment: Supine to Sit Mobility Martin Level: Supine->Sit: moderate assist (50% patient effort) [...] into upright position. Sit to Supine Mobility Martin Level: Sit->Supine: not tested Skilled Intervention/Details: Sit->Supine: [...] noted. Transfer Assessment: Sit to Stand Transfer Martin Level: Sit->Stand: minimum assist (75% patient effort) [...] in arm support Stand to Sit Transfer Martin Level: Stand->Sit: minimum assist (75% patient effort) [...] Fair eccentric control observed throughout. Bed-Chair Transfer Martin Level: Bed<->Chair: minimum assist (75% patient effort) [...] position. 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 Patient to benefit from skilled PT services [...] Renal Documentation Note Patient: Krissy Wright Room/Bed: [address] [place] [address] Assessment and Plan: The patient is currently [...] any questions, Name: Pascual Leung RPH Phone: [phone] Date/Time: 01/09/2025 1:31 PM PCRM attempted to [...] later time. QUINCY Greer RN Patient Care Private Client Advisor P: [phone] *for evening (4:30 PM - 8:00 AM) or weekend/holiday needs, please page [phone] CANCER MEDICINE INPATIENT PROGRESS NOTE TODAY'S DATE: [...] -give nephrocaps 1 tab daily while on LEARNING ENGINEER -low Na, low K, low phos, high [...] Related: no Location: Buttocks Confirmed Pressure Ulcer? ([place] FORMER... Any conditions listed below are present on [...] signs of inflammation. Neck no rigidity. Not SENECA-CAYUGA. MMM. Respiratory: Clear to auscultation bilaterally, no [...] MD: in agreement. Yoselin Hoffman PA-C Pager: [phone] The provider may be reached from 7a-7p at pager listed on QGenda. After these hours please page the manager patient or moonlighter. Cosigned by Chris Tolbert MD [...] session on 01/08. Chris Tolbert MD Clinical Fractionation Supervisor Division of Hospital Medicine Pager [phone] Occupational Therapy Attempt Note 01/09/2025 OT Therapy [...] minutes): 0 minutes documented in this encounter [facility] 01-11-2025 Plan of care note Krissy Wright [...] PhD Fellow Physician Hematology and Medical Oncology [facility] Work Phone: 01-11-2025 Plan of care note [...] lock and call light in reach. T [facility] 01-11-2025 Consult note Formatting of is note [...] care of this patient. Vascular Access Team [id number] T [facility] 01-11-2025 Consult note Formatting of is note [...] care of this patient. Vascular Access Team [id number] Associated Order(s): IP CONSULT TO NEPHROLOGY NEPHROLOGY INPATIENT CONSULTATION NOTE I saw Krissy Wright at the [facility] on 01/09/2025. Reason for Consultation: ESRD [...] -give nephrocaps 1 tab daily while on LEARNING ENGINEER -low Na, low K, low phos, high [...] the heading IM Consult Serv Hematology on [employer]. Thank you for allowing us to participate in the care of Krissy Wright. Yariel aBnks MD Hematology/Oncology Fellow History of Present Illness: [...] MD, PhD documented in this encounter [facility] 01-10-2025 Nurse Note Images from the [...] BID and PRN if soiled. Bed Surface: [facility] Discharge Recommendations: Patient may continue care as [...] to Air Assessment Painful;Yellow;Moist Virgen-Wound Assessment Moist ;Intact;[place] Non-staged Wound Description Partial thickness Wound Length [...] sign off at this time. Please page #[phone] or secure chat [facility] Wound and Ostomy. Shirley MATHEW, RN-, CWON [phone] [facility] 01-10-2025 Nurse Note 01/10/25 1345 Tx Assessment/Safety (Pre/Post) Blood Liters Processed (BLP) 78.6 Transport Modality bed Dialyzer Clearance streaked Tolerance to Dialysis Procedure Well, net uf 2.5L removed, via L-avf. Maintained soft bradycardic, & in B/C-prof per crit Treatment Assessment UF Goal/mL: 97115 Fluid Removed/mL: 2800 ml Machine Temperature 98.2 [...] Additional Restrictions none Changes In Status no [place] Procedure Orders Written no Sending RN/Tech Name Geovany RN Phone [phone] Returning to Patient Care Unit Transport yes Cognitive/Neuro/Behavioral WDL Cognitive/Neuro/Behavioral WDL WDL Cardiovascular WDL Cardiac WDL WDL General Pain Documentation (Adult, OB, Peds) Presence of Pain denies pain/discomfort Presence of Pain Score (Auto-calculated) 0 Sleep/Rest/Relaxation (Adult,Pediatric,OB) Sleep/Rest/Relaxation awake LOC/Significant Event RASS ([place] Agitation-Sedation Scale) 0-->alert and calm Significant Event Off circ, conversant Post-Hemodialysis Assessment Report given to Prim NR [facility] 01-10-2025 Nurse Note 01/10/25 0927 Referral Information Arrived From emergency department;home or self-care Readmission Information Was patient readmitted within 30 Days? No Information Source Information Source patient Outpatient Providers Outpatient Providers Updated In IHIS No Contact Information Monotype Keyboard Operator/SW Added to Care Team Yes This Spiral Winder is Primary Monotype Keyboard Operator/SW Yes Monotype Keyboard Operator Name Anali Natarajan Monotype Keyboard Operator's Social Work Contact Name see care team [...] No Initial Discharge Planning Home Care Services (CHAMBER MAGISTRATE) No Home Therapies (CHAMBER MAGISTRATE) None DME (CHAMBER MAGISTRATE) Straight cane;Rollator Patient Goal for Discharge Return home with assistance from family and friends Expected Discharge Disposition Anticipated Services at Discharge Jail;Physical Therapy;Occupational Therapy;Outpatient follow up Current Discharge Risk [...] team updated. QUINCY Greer RN Patient Care Private Client Advisor P: [phone] *for evening (4:30 PM - 8:00 AM) or weekend/holiday needs, please page [phone] [facility] 01-10-2025 Plan of care note Problem: OT [...] tolerance to safely complete I/ADL's Outcome: Ongoing [facility] 01-10-2025 Plan of care note Problem: PT [...] understanding of exercise program. Outcome: Ongoing [facility] 01-09-2025 Procedure note Associated Ord er(s): [...] HD day. Pascual Hale MD Nephrology Attending [facility] [facility] Procedure note Associated Ord er(s): [...] MD Nephrology Attending documented in this encounter [facility] 01-09-2025 Plan of care note Pt assessment [...] Illness or Injury 01/09/2025 1527 by Chris Pipre RN Outcome: Progressing 01/09/2025 1526 by Chris Piepr RN Outcome: Progressing Goal: Optimal Comfort and Wellbeing 01/09/2025 1527 by Chris Piper RN Outcome: Progressing 01/09/2025 1526 by Chris Piper RN Outcome: Progressing Goal: Readiness for Transition of Care 01/09/2025 1527 by Chris Piper RN Outcome: Progressing 01/09/2025 152 by Chris Piper RN Outcome: Progressing Problem: Hemodialysis Goal: Safe, Effective Therapy Delivery Outcome: Progressing Goal: Effective Tissue Perfusion Outcome: Progressing Goal: Absence of Infection Signs and Symptoms Outcome: Progressing [facility] 01-09-2025 Nurse Note 01/09/25 1320 Tx Assessment/Safety (Pre/Post) Blood Liters Processed (BLP) 67.6 Transport Modality bed Dialyzer Clearance moderate Tolerance to Dialysis Procedure well. Removed 1.8L net UF per crit line. Treatment Assessment Blood Flow Rate (BFR) mL/min 400 Dialysate Flow Rate (DFR) mL/min 800 mL/min Arterial Pressure (AP) mmHg -210 Venous Pressure (MEMBERSHIP COUNSELOR) mmHg 150 Transmembrane Pressure (TMP) mmHg 90 [...] Transport O2 NC Changes In Status no [place] Procedure Orders Written no Sending RN/Tech Name Yasmany Phone [phone] Returning to Patient Care Unit Transport yes Cognitive/Neuro/Behavioral WDL Cognitive/Neuro/Behavioral WDL WDL Sleep/Rest/Relaxation (Adult,Pediatric,OB) Sleep/Rest/Relaxation awake LOC/Significant Event RASS ([place] Agitation-Sedation Scale) 0-->alert and calm Significant Event iHD completed Post-Hemodialysis Assessment Report given to Chris MCGUIRE [facility] 01-09-2025 Hospital Discharge instructions Anali Mesa RN - 01/09/2025 12:55 PM EDT Images from the original note were not included. Your Monotype Keyboard Operator (PCRM) has arranged your appointments for follow [...] medications. Miscellaneous Education [facility] Care Classes The [facility] [facility] offers a series of monthly classes [...] families and friends. For more information, contact [facility] at or visit our website at www.[facility] Falls Prevention Many falls can be prevented. [...] with low, broad heels and soles that job placement counselor. Drink enough liquid each day. Ask your [...] support groups and other resources offered, contact: -[employer] at [phone] to find out about support groups offered by The [facility] -[place] [employer] at 399-629-1956 or online at www.cancer.org -Leukemia and Lymphoma Society at 749-066-5802 or online at www.lls.org -[facility] at 101-518-9897 or online at www.lifecareallComVibe.org -Ovarian Cancer [place] at 382-187-3587 or online at www.ovariancanceroh.org -[place] Brain Tumor Association at 870-237-2226 or online at www.abta.org -National Brain Tumor Foundation at 517-394-8071 or online at www.braintumor.org Patient education videos [...] evening, weekend, or holiday hours, please call: [facility] The [facility] casey saw operator at [phone]. Ask the casey saw operator to page the on-call doctor for medical oncology, the service that was responsible for your care while you were in the hospital. If you having an emergency, call 911. For questions on current hospital discharge plan to home or home with services: Anali MCGUIRE, [facility] [phone] (Wed-Wed 8:00 AM - 4:30 PM) IMPORTANT: Automated Post Discharge Call Patient Information As part of your care, we will call you at the primary number we have on file, the day after you are discharged at 9:30 a.m. to check on you. Please expect a two-minute automated telephone call from the hospital. This call will come from [phone]. If you miss the first call, the hospital will text you instead of sending an automated call. You will have the option of responding to the text with your cell phone. If a third attempt is needed, you will receive a call. If you are unable to answer and want to respond, please call [phone] to complete this important evaluation. By answering [...] than 100.5 documented in this encounter [facility] 01-09-2025 Consult note Associated Order (s): IP CONSULT TO NEPHROLOGY NEPHROLOGY INPATIENT CONSULTATION NOTE I saw Krissy Wright at the [facility] on 01/09/2025. Reason for Consultation: ESRD [...] -give nephrocaps 1 tab daily while on LEARNING ENGINEER -low Na, low K, low phos, high protein diet. Limit fluids to 1.2 L/day Pascual Hale MD Division of Nephrology [facility] 01-09-2025 Plan of care note Plan on [...] IV access, phlebotomy, injections or BP readings. [facility] 01-09-2025 Consult note Associated Order (s): [...] the heading IM Consult Serv Hematology on [employer]. Thank you for allowing us to participate [...] light of hematuria. Julee Wright MD, PhD [facility] Work Phone: 01-09-2025 History and physical note Updated Plan of Care: I was [facility] The chart was reviewed and an order/medication [...] Tolbert MD at 01/09/2025 7:53 AM EDT [facility] 01-09-2025 History and physical note Updated Plan of Care: I was notified of the [facility]'s [facility]. The chart was reviewed and an order/medication [...] 7:53 AM EDT documented in this encounter [facility] 01-09-2025 Nurse Note This RN notified Anup Leung that pt has arrived to the floor [facility] 01-09-2025 Emergency department Note Attempted to call report to C19 but RN unavailable, callback number provided [facility] 01-09-2025 Emergency department Note Attempted to [...] plan of care. Isabella Cruz MD 01/08/25 2238 dEPARTMENT of Emergency Medicine CHIEF COMPLAINT No [...] Take 1 tablet by mouth daily. B Rusbbif-R-Crxyz Acid (Theresa-Fabian) tablet Take 1 tablet by [...] arrival: Comments: documented in this encounter [facility] 01-09-2025 Consult note Associated Order (s): [...] Take 1 tablet by mouth daily. B Eztymmn-G-Mtfjd Acid (Theresa-Fabian) tablet Yes No Sig: Take [...] signs of inflammation. Neck no rigidity. Not SENECA-CAYUGA. MMM, no erythema, exudates, or lesions. Dentition [...] was sent from an outside facility to [facility] for support of clinical care of the patient within the [facility] system. CT CHEST (OUTSIDE IMAGE) Result Date: 01/08/2025 Outside Imaging Study for Support of Clinical Care. This study was sent from an outside facility to [facility] for support of clinical care of the patient within the [facility] system. GENERAL PROCEDURE Result Date: 12/27/2024 Andrea Farris MD, PhD 12/28/2024 8:48 AM Linac-based Stereotactic Radiosurgery (SRS) Note: 12/27/2024 RADIATION ONCOLOGIST: Andrea Farris MD, PhD NEUROSURGEON: Jeremy Vazquez MD Primary disease: Renal Histopathology: Renal cell carcinoma PROCEDURE PERFORMED: SRS MACHINE: Araca TrueBeam STX CLINICAL TARGETS: 1. Lesion begins [...] dose to the normal tissue was chosen. custodial laborer checks were performed on the plan and [...] cancer medicine team in KIZZY Sethi Pager: [phone] The provider may be reached from 7p-7a at pager listed above. After these hours please page the day provider listed under Qgenda. Cosigned by Chris Tolbert MD at 01/09/2025 8:25 AM EDT [facility] 01-09-2025 Consult note Associated Order (s): [...] Take 1 tablet by mouth daily. B Psgjsgn-M-Jcloe Acid (Theresa-Fabian) tablet Yes No Sig: Take [...] signs of inflammation. Neck no rigidity. Not SENECA-CAYUGA. MMM, no erythema, exudates, or lesions. Dentition [...] was sent from an outside facility to [facility] for support of clinical care of the [facility]. CT CHEST (OUTSIDE IMAGE) Result Date: 01/08/2025 Outside Imaging Study for Support of Clinical Care. This study was sent from an outside facility to [facility] for support of clinical care of the patient within the [facility] system. GENERAL PROCEDURE Result Date: 12/27/2024 Andrea Farris MD, PhD 12/28/2024 8:48 AM Linac-based Stereotactic Radiosurgery (SRS) Note: 12/27/2024 RADIATION ONCOLOGIST: Andrea Farris MD, PhD NEUROSURGEON: Jeremy Vazquez MD Primary disease: Renal Histopathology: Renal cell carcinoma PROCEDURE PERFORMED: SRS MACHINE: Araca TrueBeam STX CLINICAL TARGETS: 1. Lesion begins [...] dose to the normal tissue was chosen. custodial laborer checks were performed on the plan and [...] cancer medicine team in KIZZY Sethi Pager: [phone] The provider may be reached from -7a at pager listed above. After these hours please page the day provider listed under Qgenda. Cosigned by Chris Tolbert MD at 01/09/2025 8:25 AM EDT documented in this encounter [facility] 01-08-2025 Emergency department Note POC BG 44, pt provided with 8oz juice, Alert and oriented, no other complaints at this time [facility] 01-08-2025 Note Acute Coronary Syndr ome (ACS): Initial Evaluation and Management: [email or web address]/sites/ ebm/Documents/Guidelines/Acute%20C oronary%20Syndrome.pdf#search=trop onin [facility] 01-08-2025 Physician Emergency department Note ED Attending [...] plan of care. Isabella Cruz MD 01/08/25 1316 [facility] 01-08-2025 Physician Emergency department Note dEPARTMENT of Emergency Medicine CHIEF COMPLAINT No chief complaint on file. [facility] Krissy Wright is a 69 y.o. [...] Take 1 tablet by mouth daily. B Ncksmyz-U-Stqwc Acid (Theresa-Fabian) tablet Take 1 tablet by [...] final disposition will be admission to the [facility] level of care for further evaluation and management of his worsening tumor thrombus and renal cell carcinoma and his additional need for dialysis Medical Decision Making Amount and/or Complexity of Data Reviewed Labs: ordered. Decision-making details documented in ED Course. ECG/medicine tests: ordered. Risk Prescription drug management. Decision regarding hospitalization. Ton Mayen MD Resident 01/09/25 0556 [facility] Work Phone: 01-08-2025 Emergency department Note Pt arrived via EMS from outside facility where he presented with SOB and weakness. Pt with hx of renal cell carcinoma, found to have increased tumor growth. Here for further treatment. [facility] 01-08-2025 Emergency department Note Bed: E025 Expected date: 01/08/25 Expected time: 12:00 AM Means of arrival: Comments: [facility] 01-08-2025 Discharge summary Note Date/Time January 08, 2025 5:29pm [facility] Medical Records Department [address] [place] [address] Emergency Department Summary 01/08/25 MR#: [id number] Acct: [id number] Name: KRISSY WRIGHT Rep #:[id number] : 1955 69 From: Mya patton DO [...] intact Psych: Cooperative, appropriate mood and affect [facility] Medical History Wears glasses History of Clostridium [...] Clarity Cloudy Urine pH 7.0 Ur Specific [place] 1.010 Urine Protein 500 H Urine Glucose [...] Color Urine Clarity Urine pH Ur Specific [place] Urine Protein Urine Glucose (UA) Urine Ketones [...] compatible with diagnosis of constipation. Reading Location: [facility] Chest CTA 01/08/25 10:18 IMPRESSION: No evidence of pulmonary embolism. Multiple pulmonary nodules. Stable multi lobulated masses in the right kidney as well as masses seen in the pancreas. Reading [facility] Discharge Plan Triage Chief Complaint: Shortness of [...] DO [Primary Care Provider] - Print Language: Czech What to do if you have Problems For any increased pain, shortness of breath, bleeding, nausea or vomiting, chestpain, or any unexpected problems, contact your Primary Care Provider. Call [facility] ([phone]) or report to the closest Emergency Room. [...] Dr. Sam Del Toro DO ~* Signed [facility] Work Phone: 1(186) 316-685406-16-2025 Radiology Diagnostic study [facility]06-16-2025 Radiology Diagnostic study [facility]06-06-2025 History of Present illness Narrative* Sari Hilario [...] Sari Hilario RN. [facility] Procedure note* Casey Herman MD, PhD - 12/29/2024 8:20 AM EDTAssociated Order(s): GENERAL PROCEDURE Linac-based Stereotactic Radiosurgery (SRS) Note: 12/29/2024 RADIATION ONCOLOGIST: Andrea Farris MD, PhD NEUROSURGEON: Jeremy Vazquez MD Primary disease: Renal Histopathology: Renal cell carcinoma PROCEDURE PERFORMED: SRS MACHINE: LawnStarterBeam STX CLINICAL TARGETS: 1. Lesion begins at [...] dose to the normal tissue was chosen. custodial laborer checks were performed on the plan and [...] the taper instructions. Casey Herman MD, PhD [facility] Work Phone: 1(979) 286-934206-06-2025 Procedure note* Casey Herman MD, PhD - 12/29/2024 8:20 AM EDTAssociated Order(s): GENERAL PROCEDURE Linac-based Stereotactic Radiosurgery (SRS) Note: 12/29/2024 RADIATION ONCOLOGIST: Andrea Farris MD, PhD NEUROSURGEON: Jeremy Vazquez MD Primary disease: Renal Histopathology: Renal cell carcinoma PROCEDURE PERFORMED: SRS MACHINE: Araca TrueBeam STX CLINICAL TARGETS: 1. Lesion begins [...] dose to the normal tissue was chosen. custodial laborer checks were performed on the plan and [...] Herman MD, PhD [facility] History of Present illness Narrative* Cat Braun RN - 12/28/2024 8:50 AM EDT VS obtained post radiation treatment and stable. Patient with no further needs at this time. [facility] Procedure note* Andrea Farris MD, PhD - 12/28/2024 8:20 AM EDTAssociated Order(s): GENERAL PROCEDURE Linac-based Stereotactic Radiosurgery (SRS) Note: 12/28/2024 RADIATION ONCOLOGIST: Andrea Farris MD, PhD NEUROSURGEON: Jeremy Vazquez MD Primary disease: Renal Histopathology: Renal cell carcinoma PROCEDURE PERFORMED: SRS MACHINE: LawnStarterBeam STX CLINICAL TARGETS: 1. Lesion begins at [...] dose to the normal tissue was chosen. custodial laborer checks were performed on the plan and [...] MD, PhD Department of Radiation Oncology [facility]06-[facility]25 Procedure note* Andrea Farris MD, PhD - 12/28/2024 8:20 AM EDTAssociated Order(s): GENERAL PROCEDURE Linac-based Stereotactic Radiosurgery (SRS) Note: 12/28/2024 RADIATION ONCOLOGIST: Andrea Farris MD, PhD NEUROSURGEON: Jeremy Vazquez MD Primary disease: Renal Histopathology: Renal cell carcinoma PROCEDURE PERFORMED: SRS MACHINE: LawnStarterBeam STX CLINICAL TARGETS: 1. Lesion begins at [...] dose to the normal tissue was chosen. custodial laborer checks were performed on the plan and [...] of Radiation Oncology [facility] History of Present illness Narrative* Cat [...] patient at this time. [facility] in [facility] Procedure note* Andrea Farris MD, PhD - 12/27/2024 8:50 AM EDTAssociated Order(s): GENERAL PROCEDURE Linac-based Stereotactic Radiosurgery (SRS) Note: 12/27/2024 RADIATION ONCOLOGIST: Andrea Farris MD, PhD NEUROSURGEON: Jeremy Vazquez MD Primary disease: Renal Histopathology: Renal cell carcinoma PROCEDURE PERFORMED: SRS MACHINE: LawnStarterBeam STX CLINICAL TARGETS: 1. Lesion begins at [...] dose to the normal tissue was chosen. custodial laborer checks were performed on the plan and [...] Farris MD, PhD Department of Radiation Oncology [facility]06-04-2025 Procedure note* Andrea Farris MD, PhD - 12/27/2024 8:50 AM EDTAssociated Order(s): GENERAL PROCEDURE Linac-based Stereotactic Radiosurgery (SRS) Note: 12/27/2024 RADIATION ONCOLOGIST: Andrea Farris MD, PhD NEUROSURGEON: Jeremy Vazquez MD Primary disease: Renal Histopathology: Renal cell carcinoma PROCEDURE PERFORMED: SRS MACHINE: Araca TrueBeam STX CLINICAL TARGETS: 1. Lesion begins [...] dose to the normal tissue was chosen. custodial laborer checks were performed on the plan and [...] Department of Radiation Oncology documented in this [facility]06-03-2025 Procedure note* Jessy Martins MD, DPhil - 12/26/2024 9:40 AM EDTAssociated Order(s): GENERAL PROCEDURE Linac-based Stereotactic Radiosurgery (SRS) Note: 12/26/2024 RADIATION ONCOLOGIST: Jessy Martins MD, DPhil (covering for Andrea Farris MD, PhD) NEUROSURGEON: Jeremy Vazquez MD Primary disease: Renal Histopathology: Renal cell carcinoma PROCEDURE PERFORMED: SRS MACHINE: LawnStarterBeam STX CLINICAL TARGETS: 1. Lesion begins at [...] dose to the normal tissue was chosen. custodial laborer checks were performed on the plan and [...] Nursing team has conveyed the taper instructions. Jesys Martins MD, DPhil Department of Radiation Oncology [facility] Work Phone: 1(267) 931-840206-03-2025 Procedure note* Jessy Martins MD, DPhil - 12/26/2024 9:40 AM EDTAssociated Order(s): GENERAL PROCEDURE Linac-based Stereotactic Radiosurgery (SRS) Note: 12/26/2024 RADIATION ONCOLOGIST: Jessy Martins MD, DPhil (covering for Andrea Farris MD, PhD) NEUROSURGEON: Jeremy Vazquez MD Primary disease: Renal Histopathology: Renal cell carcinoma PROCEDURE PERFORMED: SRS MACHINE: LawnStarterBeam STX CLINICAL TARGETS: 1. Lesion begins at [...] dose to the normal tissue was chosen. custodial laborer checks were performed on the plan and [...] Department of Radiation Oncology [facility] History of Present illness Narrative* Carmen Tolbert [...] questions or concern [facility] Procedure note* Andrea Farris MD, PhD - 12/25/2024 7:40 AM EDTAssociated Order(s): GENERAL PROCEDURE Linac-based Stereotactic Radiosurgery (SRS) Note: 12/25/2024 RADIATION ONCOLOGIST: Andrea Farris MD, PhD NEUROSURGEON: Jeremy Vazquez MD Primary disease: Renal Histopathology: Renal cell carcinoma PROCEDURE PERFORMED: SRS MACHINE: Araca TrueBeam STX CLINICAL TARGETS: 1. Lesion begins [...] dose to the normal tissue was chosen. custodial laborer checks were performed on the plan and [...] MD, PhD Department of Radiation Oncology [facility] Procedure note* Andrea Farris MD, PhD - 12/25/2024 7:40 AM EDTAssociated Order(s): GENERAL PROCEDURE Linac-based Stereotactic Radiosurgery (SRS) Note: 12/25/2024 RADIATION ONCOLOGIST: Andrea Farris MD, PhD NEUROSURGEON: Jeremy Vazquez MD Primary disease: Renal Histopathology: Renal cell carcinoma PROCEDURE PERFORMED: SRS MACHINE: LawnStarterBeam STX CLINICAL TARGETS: 1. Lesion begins at [...] dose to the normal tissue was chosen. custodial laborer checks were performed on the plan and [...] of Radiation Oncology [facility] History of Present illness Narrative* Cat Braun RN - 12/05/2024 10:00 AM EDT Krissy Wright was seen 12/05/2024 in Radiation Oncology for a CT Simulation. Krissy Wright will start radiation treatment to his Spine on 12/25/2024. documented in [facility] encounter[facility] History of Present illness Narrative* Nicolas [...] and without contrast completed on 11/20/2024 showed B4hsywcvbrnd fracture with epidural tumor. SINS unstable. Theoy [...] has dialysis 3 times a week in [place]. MRI SPINE PERFUSION THORACIC WITH AND WITHOUT [...] Take 1 tablet by mouth daily. B Hjyhbqa-Z-Frlmw Acid (Theresa-Fabian) tablet Take 1 tablet by [...] from 35% with SBRT at 14% with ENGINEERING PROFESSIONALS (p<0.001). Radiation therapy is recommended to improve local control and increase survival. The rationale for radiation therapy, its potential risks, benefits, short and senior living side effects, complications, as well as alternative [...] lesion. He does have dialysis MWF in [place], so he would prefer to have his [...] not nervous/anxious. Nursing Assessment: Physical Exam * Andrea Farris MD, PhD - 11/30/2024 1:00 PM [...] Department of Radiation Oncology documented in this encounter[facility] Instructions* Patient Instructions* Nicolas Rose MD - 11/30/2024 1:00 PM EDT Please hold axitinib one day prior to the radiation therapy treatment and resume 2 days after the radiation treatment. Please take the dexamethasone 4mg once daily on the first day of radiation treatment. Then every other day for the following week. documented in this encounter[facility] History of Present illness Narrative* Rocio [...] Nursing Assessment: Physical Exam * Carlito Solis APRN-SUPERINTENDENT DRILLING AND PRODUCTION - 11/30/2024 12:00 PM EDT Images from the original note were not included. [facility] Dr. Tiarra Fiore MD Professor, Department of Neurosurgery Director of Neurosurgical Oncology [facility] and [place] [address] ESTABLISHED PATIENT VISIT NOTES Fred Wright is [...] epidural tumor. Patient that presents to [facility] for consultation of newly [...] Take 1 tablet by mouth daily. B Siiaqym-G-Mxfqu Acid (Theresa-Fabian) tablet Take 1 tablet by [...] metastatic RCC that presents today to [facility] for a consultation related to a history of newly found T2 tumor with pathologic fracture. Patient seen and evaluated by Dr. Fiore and Dr. Farris in [facility]. MRI T spine wwo contrast with perfusion [...] of the clinic visit. The nurse practitioner/physician dietetic assistant and I have spoken with the patient and provided written and verbal instructions for the patient. The above note has been reviewed and I agree with the assessment and plan. Tiarra Fiore MD documented in this encounterPro[facility]05-[facility]-2025 Instructions* Patient Instructions* Shirley Medina RN - 11/30/2024 12:00 PM EDT We are here to assist you through your care at [facility] and [facility]! Your Care Team from today's visit included: Neurosurgeon- Dr. Gonsalo Fiore Nurse Practitioner- KIZZY Hardy Nurse Practitioner- Aleja Aleman APRN-SLIM Primary Nurse - QUINCY Valentino, RN Primary Nurse - QUINCY Bull, RN The Neurosurgery clinic and scheduling staff can be reached at [phone]. Please call if you develop new or worsening symptoms, also with any additional questions regarding your visit today or if you need to contact the doctor. You will speak with a jewel bearing maker, who will take a message and forward [...] weekends, and/or during a holiday please call [phone] and speak with the after-hours service. You will be connectedto the neurosurgery resident rn oncology. New or worsening neurological symptoms can include, but are not limited to: weakness, confusion, difficulty walking, vision/hearing/speech changes, seizures or extremity tremors, and persistent headaches. If it is an emergency you will need to go to your local ER. Ask them to fax your records to us so that we can update our team, fax number [phone]. If you experience seizures affecting the whole body, with or with out loss of consciousness, or stroke like symptoms please call 911 and get evaluated at local Emergency Room. The neurosurgery team typically does not refill medications. Please reach out to your primary care physician for any post-hospital or post- surgical medication refill requests. [facility] paperwork is available through your human resources department. Please allow 10-14 business days for completion of paperwork from our office. Documentation can be faxed to [phone]. Your feedback is important to our team. [...] condition. You will receive this questionnaire via REMOTV. Please complete so [facility] can better help you! documented in [facility] History of Present illness Narrative* Luda Baig [...] examined Krissy Wright today with my MARIANNE, [employer]. Krissy Wright is a 68 y.o. male [...] of the clinic visit. The nurse practitioner/physician dietetic assistant and I have spoken with the patient and provided written and verbal instructions for the patient. The above note has been reviewed and I agree with the assessment and plan. Tiarra Fiore MD * Carlito Solis, EXTRACTOR PLANT OPERATOR-SUPERINTENDENT DRILLING AND PRODUCTION - 11/23/2024 1:30 PM EDT Images from the original note were not included. [facility] Dr. Tiarra Fiore MD Professor, Department of Neurosurgery Director of Neurosurgical Oncology [facility] and [place] [address] NEW PATIENT VISIT NOTES IYolanda Wright is a 68 y.o. male that presents to [facility] forconsultation. Patient denies/reports: this [...] Medication Sig Allopurinol 100 MG tablet B Qzzyrce-C-Bfdbp Acid (Theresa-Fabian) tablet Take 1 tablet by [...] y.o. male that presents today to [facility] for a consultation related to a history of - Plan: documented in this encounterOST[facility] Instructions* Patient Instructions* Shirley Medina RN - 11/23/2024 1:30 PM EDT We are here to assist you through your care at [facility] and [facility]! Your Care Team from today's visit included: Neurosurgeon- Dr. Gonsalo Fiore Nurse Practitioner- Carlito Solis APRN-SUPERINTENDENT DRILLING AND PRODUCTION Nurse Practitioner- Aleja Aleman APRN-SUPERINTENDENT DRILLING AND PRODUCTION Primary Nurse - QUINCY Valentino, RN The Neurosurgery clinic and scheduling staff can be reached at [phone]. Please call if you develop new or worsening symptoms, also with any additional questions regarding your visit today or if you need to contact the doctor. You will speak with a jewel bearing maker, who will take a message and forward [...] weekends, and/or during a holiday please call [phone] and speak with the after-hours service. You will be connectedto the neurosurgery resident rn oncology. New or worsening neurological symptoms can include, but are not limited to: weakness, confusion, difficulty walking, vision/hearing/speech changes, seizures or extremity tremors, and persistent headaches. If it is an emergency you will need to go to your local ER. Ask them to fax your records to us so that we can update our team, fax number [phone]. If you experience seizures affecting the whole [...] our office. Documentation can be faxed to [phone]. Your feedback is important to our team. [...] condition. You will receive this questionnaire via REMOTV. Please complete so your providers at [facility] can better help you! documented in this encounterOS[facility] Nuclear medicine Diagnostic study note [facility] [address] [place] [address] Bone Scan Whole Body MR#: [id number] Acct: [id number] Name: KRISSY WRIGHT Rep #: [id number] : 1955 M 68 From: Phoenix Foley MD PCP: Dr. Sam Del Toro DO Status: REG CLI Study:Bone Scan Whole Body Date of Exam: 11/14/24 Exam# [id number] Ordering Dr: Lucian Escobedo MD PROCEDURE: BONE SCAN WHOLE BODY [...] scintigraphic evidence of metastatic disease. Reading Location: [id number] CC: Dr. Mo Escobedo MD; Dr. Sam Del Toro DO ~ Breeder Service Technician: Signed [facility]04-17-2025 Radiology Diagnostic study note [facility] [address] [place] [address] CTA Chest W/WO Contrast MR#: [id number] Acct: [id number] Name: KRISSY WRIGHT Rep #: [id number] : 1955 M 68 From: Everette Rush MD PCP: Dr. Sam Del Toro, DO Status: REG ER Study:CTA Chest W/WO Contrast Date of Exam: 11/09/24 Exam# [id number] Ordering Dr: Aaron Flores DO PROCEDURE: CTA [...] height or retropulsion of bone. Reading Location: [id number] CC: Dr. Ana Flores DO; Dr. Sam Del Toro DO ~ Breeder Service Technician: Signed [facility]03-12-2025 Radiology Diagnostic study note [facility] [address], [place] [address] Abdomen/Pelvis W IV Cont ONLY MR#: [id number] Acct: [id number] Name: KRISSY WRIGHT Rep #: [id number] : 1955 M 68 From: Brigitte Hernandez MD PCP: Dr. Sam Del Toro DO Status: REG ER Study:Abdomen/Pelvis W IV Cont ONLY Date of E xam: 10/04/24 Exam# [id number] Ordering Dr: Darnell Rodriguez DO EXAM: CT [...] the colon consistent with constipation. Reading Location: [facility] CC: Dr. Moody Rodriguez DO; Dr. 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 October 10 12:55pm Pancreatic mass chronic September 12:55pm Hematuria resolved October 10 12:55pm CHF (congestive heart failure) [facility] October 23, 2024 8:57am Metastatic renal cell [...] 9:15am Viral URI resolved November 20 9:15am [facility] Work Phone: 1(972) 231-441901-21-2025 Evaluation note* Diagnosis Onset Date Resolution Status [...] 9:15am Viral URI resolved November 20 9:15am [facility] Work Phone: 1(992) 125-594001-21-2025 Evaluation note* Diagnosis Onset Date Resolution Status Admit Date CHF (congestive heart failure) [facility] August 15, 2024 9:44am Essential (primary) hypertension chronic August 15 9:44am Paroxysmal atrial fibrillation [facility] August 15, 2024 9:44am CHF (congestive heart failure) [facility] August 15, 2024 11:54am 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 August 15, 2024 11:54am Pancreatic mass chronic July 272024 11:54am CHF (congestive heart failure) [facility] September 12, 2024 1:09pm Metastatic renal cell [...] 12, 2024 1:45pm CHF (congestive heart failure) [facility] October 10, 2024 12:55pm 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 October 10 12:55pm Pancreatic mass chronic September 12:55pm Hematuria resolved October 10 12:55pm CHF (congestive heart failure) [facility] October 23, 2024 8:57am 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 October 23 8:57am Pancreatic mass chronic September 8:57am Hematuria resolved October 23 8:57am [facility] Work Phone: 1(797) 140-475012-19-2024 Evaluation note* Diagnosis Onset Date Resolution Status Admit Date CHF (congestive heart failure) [facility] July 13, 2024 8:44am 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 July 13, 2024 8:44am Pancreatic mass chronic July 13, 2024 8:44am CHF (congestive heart failure) [facility] August 15, 2024 9:44am Essential (primary) hypertension chronic August 15 9:44am Paroxysmal atrial fibrillation [facility] August 15, 2024 9:44am CHF (congestive heart failure) [facility] August 15, 2024 11:54am Metastatic renal [...] 12, 2024 1:45pm CHF (congestive heart failure) [facility] October 10, 2024 12:55pm 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 October 10 12:55pm Pancreatic mass chronic September 12:55pm Hematuria resolved October 10 12:55pm CHF (congestive heart failure) [facility] October 23, 2024 8:57am 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 October 23 8:57am Pancreatic mass chronic September 8:57am Hematuria resolved October 23 8:57am [facility] Work Phone: 1(954) 953-604412-10-2024 Evaluation note* Diagnosis Onset Date Resolution Status Admit Date 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 July 04, 2024 7:32am Pancreatic mass chronic July 04, 2024 7:32am CHF (congestive heart failure) [facility] July 13, 2024 8:44am 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 July 13, 2024 8:44am Pancreatic mass chronic July 13, 2024 8:44am CHF (congestive heart failure) [facility] August 15, 2024 9:44am Essential (primary) hypertension chronic August 15 9:44am Paroxysmal atrial fibrillation [facility] August 15, 2024 9:44am CHF (congestive heart [...] 12, 2024 1:45pm CHF (congestive heart failure) [facility] October 10, 2024 12:55pm 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.] (primary) hypertension chronic Paroxysmal atrial fibrillation chronic [facility] Work Phone: Evaluation note* Diagnosis Onset [...] Essential (primary) hypertension chronic Paroxysmal atrial fibrillation [facility] Work Phone: Evaluation note* Diagnosis [...] chronic Metastatic renal cell carcinoma to lung [facility] Work Phone: Evaluation note* Diagnosis [...] te Pancreatic mass acute Chronic kidney failure [facility] Work Phone: Evaluation note* Diagnosis Onset [...] acute Pancreatic mass acute Chronic kidney failure [facility] Work Phone: Evaluation note* Diagnosis Onset [...] kidney disease) stage 4, GFR 15-29 ml/min [facility] Work Phone: Evaluation note* Diagnosis [...] 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 Paroxysmal atrial fibrillation [facility] Work Phone: Evaluation note* Diagnosis [...] disease) stage 4, GFR 15-29 ml/min chronic [facility] Work Phone: Evaluation note* Diagnosis Onset [...] Immunotherapy encounter reso lved Viral URI resolved [facility] Work Phone: Evaluation note* Diagnosis Onset Date Resolution Status CKD (chronic kidney disease) stage 4, GFR 15-29 ml/min chronic 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 Pancreatic mass chronic Hypothyroidism chronic 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 Encounter for education reso lved Immunotherapy encounter reso lved Viral URI resolved CKD (chronic kidney disease) stage 4, GFR 15-29 ml/min [facility] Work Phone: Evaluation note* Diagnosis Onset Date Resolution Status CKD (chronic kidney disease) stage 4, GFR 15-29 ml/min [facility] Work Phone: Evaluation note* Diagnosis Onset Date Resolution Status CKD (chronic kidney disease) stage 4, GFR 15-29 ml/min chronic 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 Pancreatic mass chronic Hypothyroidism chronic 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 Encounter for education reso lved Immunotherapy encounter reso lved Viral URI resolved [facility] Work Phone: Evaluation note* Diagnosis Onset [...] to lung chronic Paroxysmal atrial fibrillation chronic [facility] Work Phone: Evaluation noteNo assessment information available [facility] Work Phone: Evaluation note* Diagnosis Onset Date Resolution Status 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 Pancreatic mass chronic Hypothyroidism chronic 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 Encounter for education reso lved Immunotherapy encounter reso lved Viral URI resolved [facility] Work Phone: Evaluation note* Diagnosis 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 documented [facility] Diagnosis 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 documented in this encounter [facility]* Diagnosis Metastatic cancer to spine- Primary 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 [facility] Diagnosis Metastatic cancer to spine- Primary Secondary malignant neoplasm of bone and bone marrow [facility]* Diagnosis Metastatic cancer to spine- Primary Secondary malignant neoplasm of bone and bone marrow documented [facility]* Diagnosis Metastatic cancer to spine- Primary Secondary malignant neoplasm of bone and bone marrow documented [facility]* Diagnosis Metastatic cancer to spine- Primary Secondary malignant neoplasm of bone and bone marrow [facility] Diagnosis Metastatic cancer to spine- Primary Secondary malignant neoplasm of bone and bone marrow [facility]* Diagnosis Metastatic cancer to spine- Primary Secondary malignant neoplasm of bone and bone marrow documented [facility]* Diagnosis Metastatic cancer to spine- Primary Secondary malignant neoplasm of bone and bone marrow documented [facility] Diagnosis Metastatic cancer to spine- Primary Secondary malignant neoplasm of bone and bone marrow [facility]* Diagnosis 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 With your president of the [place]. Return if you have recurrence or worsening of your symptoms.[facility] Work Phone: Reason for referral (narrative)No reason for referral information availableWMetroHealth [facility] Work Phone: Reason for referral (narrative)* Unlisted Procedure Code (Routine) - New Request Specialty Diagnoses / Procedures Referred By Contac t Referred To Contact Procedures PLATELET MONITORING PER PROTOCOL Lisa Barrow APRN-CNP [address] [place] [address] Phone: tel: fax: Referral ID Status Reason Start Date Expiration Date V isits Requested Visits Authorized [id number] New Request 01/09/2025 02/03/2026 1 1 * Unlisted Procedure Code (Routine) - New Request Specialty Diagnoses / Procedures Referred By Contac t Referred To Contact Procedures DVT/VTE RISK ASSESSMENT Lisa Barrow APRN-CNP [address] [place] [address] Phone: tel: fax: Referral ID Status Reason Start Date Expiration Date V isits Requested Visits Authorized [id number] New Request 01/09/2025 02/03/2026 1 1 * Radiology (Emergency) - New Request Specialty Diagnoses / Procedures Referred By Contac t Referred To Contact Procedures ECG Isabella Cruz MD [address] [place] [address] Phone: tel: fax: Referral ID Status Reason Start Date Expiration Date V isits Requested Visits Authorized [id number] New Request 01/08/2025 02/02/2026 1 [facility]* MRI/CAT Scan (Emergency) - Closed Specialty Diagnoses / Procedures Referred By Contac t Referred To Contact Diagnoses Metastatic cancer to spine Procedures MRI SPINE PERFUSION THORACIC WITH AND WITHOUT CONTRAST CHG MRI SPINAL CANAL THORACIC W/O & W/CONTR MATRL Tiarra Fiore MD [address] [place] [address] Phone: tel: fax: Referral ID Status Reason Start Date Expiration Date Visits Re quested Visits Authorized [id number] Closed 11/23/2024 12/18/2025 1 1 [facility]* MRI/CAT Scan (Emergency) - Closed Specialty Diagnoses / Procedures Referred By Contac t Referred To Contact Diagnoses Metastatic cancer to spine Procedures CT SPINE CERVICAL THORACIC LUMBAR WITHOUT CONTRAST CHG CT CERVICAL SPINE W/O CONTRAST MATERIAL CHG CT THORACIC SPINE W/O CONTRAST MATERIAL CHG CT LUMBAR SPINE W/O CONTRAST MATERIAL Tiarra Fiore MD [address] [place] [address] Phone: tel: fax: Referral ID Status Reason Start Date Expiration Date Visits Re quested Visits Authorized [id number] Closed 11/23/2024 12/18/2025 1 1 [facility] for visit Narrative* (Routine) - Closed Specialty Diagnoses / Procedures Referred By Contac t Referred To Contact Diagnoses Metastatic cancer to spine Procedures [facility]C [facility] Andrea Farris MD, PhD [address] [place] [phone] Phone: tel: fax: Referral ID Status Reason Start Date Expiration Date Visits Re quested Visits Authorized [id number] Closed 11/30/2024 12/25/2025 1 1 [facility]* Auth/Cert Specialty Diagnoses / Procedures Referred By Fritz t Referred To Contact Diagnoses Renal Cancer (tumor thrombus RCC) Diamond Lincoln MD [address] [place] [address] Phone: tel: fax: [facility] [address] [place] [address] Referral ID Status Reason Start Date Expiration Date Visits Re quested Visits Authorized [id number] 1 1 [facility] Chief Complaint and Reason for Visit Chief [...] Will No May 22 1:37pm Power of Vp Analysis No May 22, 2021 1:37pm Advance Directive Response Recorded Date/ Time Advance Directives on File No Octob er 2020 1:37pm Advance Directives Yes May 22, 2021 1:37pm Living Will Yes December 28, 2021 8 :02am Power of Vp Analysis Yes December 28, 2021 8:02am Advance Directive Response Recorded Date/ Time Advance Directives on File No Octob er 2020 1:37pm Name of Medical Power of Vp Analysis Jason Wright December 27, 2021 11:35am Advance Directives Yes May 22, 2021 1:37pm Living Will No January 03, 2022 11:49am Power of Vp Analysis No January 03 11:49am Advance Directive Response Recorded Date/ Time Advance Directives on File No Octob er 2020 1:37pm Name of Medical Power of Vp Analysis [place] December 27, 2021 11:35am Name of Medical Power of Vp Analysis MELISSA WRIGHT, SON January 03, 2022 10:45pm Name of Medical Power of Vp Analysis Melissa January 17, 2022 3:25pm Name of Medical Power of Vp Analysis chung, EDUARDO Wright February 16, 2022 11:38am Advance Directives Yes May 22, 2021 1:37pm Living Will Yes February 16, 2022 11:38am Power of Vp Analysis Yes February 16 11:38am Advance Directive Response Recorded Date/ Time Advance Directives on File No Octob er 2020 1:37pm Name of Medical Power of Vp Analysis chung, EDUARDO Wright February 16, 2022 11:38am Advance Directives Yes May 22, 2021 1:37pm Living Will Yes February 16, 2022 11:38am Power of Vp Analysis Yes February 16 11:38am Advance Directive Response Recorded Date/ Time Advance Directives on File No Octob er 2020 12:37pm Advance Directives Yes May 22, 2021 12:37pm Living Will Yes February 16, 2022 10:38am Power of Vp Analysis Yes February 16 10:38am Advance Directive Response Recorded Date/ Time Advance Directives Yes May 22, 2021 12:37pm Living Will Yes February 16, 2022 10:38am Power of Vp Analysis Yes February 16 10:38am Advance Directive Response Recorded Date/ Time Advance Directives on File No Octob er 2020 1:37pm Advance Directives Yes May 22, 2021 1:37pm Living Will Yes February 16, 2022 11:38am Power of Vp Analysis Yes February 16 11:38am Advance Directive Response Recorded Date/ Time Living Will Yes February 16, 2022 11:38am Power of Vp Analysis Yes February 16 11:38am Living Will No April 26 8:33am Power of Vp Analysis No April 26 8:33am Advance Directives on File No Octob er 2020 1:37pm Living Will No May 22 1:37pm Power of Vp Analysis No May 22, 2021 1:37pm Living Will No October 04, 2024 8:11am Power of Vp Analysis No October 04 8:11am Advance Directives No April 26, 2024 8:33am Advance Directive Response Recorded Date/ Time Living Will Yes February 16, 2022 11:38am Do you have a Healthcare Power of Vp Analysis? Yes February 16, 2022 11:38am Advance Directives on File No Octob er 2020 1:37pm Living Will No May 22 1:37pm Do you have a Healthcare Power of Vp Analysis? No May 22, 2021 1:37pm Living Will No October 04, 2024 8:11am Do you have a Healthcare Power of Vp Analysis? No October 04, 2024 8:11am Advance Directives No April 26, 2024 8:33am Advance Directive Response Recorded Date/ Time Living Will Yes February 16, 2022 11:38am Do you have a Healthcare Power of Vp Analysis? Yes February 16, 2022 11:38am Advance Directives on File No Octob er 2020 1:37pm Living Will No May 22 1:37pm Do you have a Healthcare Power of Vp Analysis? No May 22, 2021 1:37pm Living Will Yes November 09, 2024 1:51am Do you have a Healthcare Power of Vp Analysis? Yes November 09, 2024 1:51am Name of Medical Power of Vp Analysis Melissa Wright November 09, 2024 1:51am Living Will No October 04, 2024 8:11am Do you have a Healthcare Power of Vp Analysis? No October 04, 2024 8:11am Advance Directives No April 26, 2024 8:33am Advance Directive Response Recorded Date/ Time Living Will Yes February 16, 2022 11:38am Do you have a Healthcare Power of Vp Analysis? Yes February 16, 2022 11:38am Advance Directives on File No Octob er 2020 1:37pm Living Will No May 22 1:37pm Do you have a Healthcare Power of Vp Analysis? No May 22, 2021 1:37pm Living Will Yes November 09, 2024 1:51am Do you have a Healthcare Power of Vp Analysis? Yes November 09, 2024 1:51am Name of Medical Power of Vp Analysis Melissa Wright November 09, 2024 1:51am Living Will No October 04, 2024 8:11am Do you have a Healthcare Power of Vp Analysis? No October 04, 2024 8:11am Living Will No November 09, 2024 11:00am Do you have a Healthcare Power of Vp Analysis? No November 09, 2024 11:00am Advance Directives No April 26, 2024 8:33am Advance Directive Response Recorded Date/ Time Living Will Yes February 16, 2022 11:38am Do you have a Healthcare Power of Vp Analysis? Yes February 16, 2022 11:38am Advance Directives on File No Octob er 2020 1:37pm Living Will No May 22 1:37pm Do you have a Healthcare Power of Vp Analysis? No May 22, 2021 1:37pm Living Will Yes November 09, 2024 1:51am Do you have a Healthcare Power of Vp Analysis? Yes November 09, 2024 1:51am Name of Medical Power of Vp Analysis Melissa Wright November 09, 2024 1:51am Living Will No October 04, 2024 8:11am Do you have a Healthcare Power of Vp Analysis? No October 04, 2024 8:11am Living Will No November 09, 2024 11:00am Do you have a Healthcare Power of Vp Analysis? No November 09, 2024 11:00am Do you have a Healthcare Power of Vp Analysis? No November 20, 2024 1:27pm Advance Directives No April 26, 2024 8:33am Advance Directive Response Recorded Date/ Time Advance Directives on File No 2020 1:37pm Living Will No May 22 1:37pm Do you have a Healthcare Power of Vp Analysis? No May 22, 2021 1:37pm Living Will Yes November 09, 2024 1:51am Do you have a Healthcare Power of Vp Analysis? Yes November 09, 2024 1:51am Name of Medical Power of Vp Analysis Melissa Nagyler November 09, 2024 1:51am Living Will No October 04, 2024 8:11am Do you have a Healthcare Power of Vp Analysis? No October 04, 2024 8:11am Living Will No November 09, 2024 11:00am Do you have a Healthcare Power of Vp Analysis? No November 09, 2024 11:00am Do you have a Healthcare Power of Vp Analysis? No November 20, 2024 1:27pm Do you have a Healthcare Power of Vp Analysis? Yes January 08, 2025 9:34am Name of Medical Power of Vp Analysis Melissa January 08, 2025 9:34am Advance Directives [...] End: August 15, 2024 Jeremy Lin NP, LINUX UNIX ENGINEER-C Attending Provider Active S tart: August 15, [...] Inactive Member Role Status Dates Dr. Sam De lToro DO Primary Care Provider Active Start: November [...] November 20, 2024 End: November 20, 2024 Data Analytics Architect Relationship Specialty Start Date End Date Sam Del ToroDO [address] [place] [address] [place] [phone] PCP - General Family Medicine 11/23/24 Ruby Rojas, EXTRACTOR PLANT OPERATOR-SUPERINTENDENT D[employer]LLING [employer]ODUCTION [address] [place] [address] Certified Nurse Practitioner 11/22/24 Jenn Lehman, RN Registered Nurse 11/22/24 Ruby Rojas, EXTRACTOR PLANT OPERATOR-SUPERINTENDENT [employer]ING [employer]ODUCTION [address] [place] [address] [place], [place] [id number] Referring Provider Certified Nurse Practitioner 11/22/24 Data Analytics Architect Relationship Specialty Start Date End Date Alverto Sam MelendezDO [address] [place] [address] [place] [phone] PCP - General Family Medicine 11/23/24 Ruby Rojas, EXTRACTOR PLANT OPERATOR-SUPERINTENDENT [employer]LLING [employer]ODUCTION [address] [place] [address] Certified Nurse Practitioner 11/22/24 Jenn Lehman, RN Registered Nurse 11/22/24 Ruby Rojas, EXTRACTOR PLANT OPERATOR-SUPERINTENDENT [employer]LLING [employer]ODUCTION [address] [place] [address] [place], [place] [phone] Referring Provider Certified Nurse Practitioner 11/22/24 Data Analytics Architect Relationship Specialty Start Date End Date Sam Del ToroDO [address] [place] [address] [place] [address] PCP - General Family Medicine 11/23/24 Ruby Rojas, EXTRACTOR PLANT OPERATOR-SUPERINTENDENT [employer]LLING [employer]ODUCTION [address] [place] [address] Certified Nurse Practitioner 11/22/24 Jenn Lehman, RN Registered Nurse 11/22/24 Ruby Rojas, EXTRACTOR PLANT OPERATOR-SUPERINTENDENT [employer]ING [employer]ODUCTION [address] [place] [address] [place], [place] [phone] Referring Provider Certified Nurse Practitioner 11/22/24 Data Analytics Architect Relationship Specialty Start Date End Date Sam Del Toro [address] [place] [address] [place] [address] PCP - General Family Medicine 11/23/24 Ruby Rojas, EXTRACTOR PLANT OPERATOR-SUPERINTENDENT [employer]LLING [employer]ODUCTION [address] [place] [address] Certified Nurse Practitioner 11/22/24 Jenn Lehman, RN Registered Nurse 11/22/24 Ruby Rojas, EXTRACTOR PLANT OPERATOR-SUPERINTENDENT [employer]ODUCTION [address] [place] [address] [place], [place] [phone] Referring Provider Certified Nurse Practitioner 11/22/24 Jeffrey Kuhn MD [address] [place], [place] [phone] Oncologist Hematology 12/01/24 Data Analytics Architect Relationship Specialty Start Date End Date Sam Del ToroDO [address] [place] [address] [place] [address] PCP - General Family Medicine 11/23/24 Ruby Rojas, EXTRACTOR PLANT OPERATOR-SUPERINTENDENT [employer]LLING [employer]ODUCTION [address] [place] [phone] Certified Nurse Practitioner 11/22/24 Jenn Lehman, RN Registered Nurse 11/22/24 Ruby Rojas, EXTRACTOR PLANT OPERATOR-SUPERINTENDENT [employer]LLING [employer]ODUCTION [address] [facility] 1 [place], [place] [phone] Referring Provider Certified Nurse Practitioner 11/22/24 Jeffrey Kuhn MD [address] [place], [place] [phone] Oncologist Hematology 12/01/24 Data Analytics Architect Relationship Specialty Start Date End Date Sam Del Toro DO [address] [place] [address] [place] [phone] PCP - General Family Medicine 11/23/24 Ruby Rojas, EXTRACTOR PLANT OPERATOR-SUPERINTENDENT DRILLING [employer] PRODUCTION [address] [place] [phone] Certified Nurse Practitioner 11/22/24 Jenn Lehman, RN Registered Nurse 11/22/24 Ruby Rojas, EXTRACTOR PLANT OPERATOR-SUPERINTENDENT [employer]ING [employer]ODUCTION [address] [facility] 1 [place], [place] [phone] Referring Provider Certified Nurse Practitioner 11/22/24 Jeffrey Kuhn MD [address] [place], [place] [phone] Oncologist Hematology 12/01/24 Data Analytics Architect Relationship Specialty Start Date End Date Sam Del Toro DO [address] [place] [address] [place] [phone] PCP - General Family Medicine 11/23/24 Ruby Rojas, EXTRACTOR PLANT OPERATOR-SUPERINTENDENT [employer]LLING [employer]ODUCTION [address] [place] [address] Certified Nurse Practitioner 11/22/24 Jenn Lehman, RN Registered Nurse 11/22/24 Ruby Rojas, EXTRACTOR PLANT OPERATOR-SUPERINTENDENT [employer]ODUCTION [address] [place] [address] [place], [place] [phone] Referring Provider Certified Nurse Practitioner 11/22/24 Data Analytics Architect Relationship Specialty Start Date End Date AlvertoSam willisDO [address] [place] [address] [place] [address] PCP - General Family Medicine 11/23/24 Ruby Rojas, EXTRACTOR PLANT OPERATOR-SUPERINTENDENT DRILLING [employer]ODUCTION [address] [place] [address] Certified Nurse Practitioner 11/22/24 Jenn eLhman, RN Registered Nurse 11/22/24 Ruby Rojas, EXTRACTOR PLANT OPERATOR-SUPERINTENDENT DRILLING [employer]ODUCTION [address] [facility] 1 [place], [place] [phone] Referring Provider Certified Nurse Practitioner 11/22/24 Jeffrey Kuhn MD [address] [place], [place] [phone] Oncologist Hematology 12/01/24 Data Analytics Architect Relationship Specialty Start Date End Date AlvertoSam willis DO Al [address] [place] [address] [place] [address] PCP - General Family Medicine 11/23/24 Ruby Rojas, EXTRACTOR PLANT OPERATOR-SUPERINTENDENT DRILLING [employer]ODUCTION [address] [place] [address] Certified Nurse Practitioner 11/22/24 Jenn Lehman, RN Registered Nurse 11/22/24 Ruby Rojas, EXTRACTOR PLANT OPERATOR-SUPERINTENDENT [employer]LLING [employer]ODUCTION [address] [facility] 1 [place], [place] [address] Referring Provider Certified Nurse Practitioner 11/22/24 Jeffrey Kuhn MD [address] [place] [address] Oncologist Hematology 12/01/24 Data Analytics Architect Relationship Specialty Start Date End Date Sam Del ToroDO [address] [place] [address] [place] [address] PCP - General Family Medicine 11/23/24 Ruby Rojas, EXTRACTOR PLANT OPERATOR-SUPERINTENDENT DRILLING AND PRODUCTION [address] [place] [address] Certified Nurse Practitioner 11/22/24 Jenn Lehman, RN Registered Nurse 11/22/24 Ruby Rojas, EXTRACTOR PLANT OPERATOR-SUPERINTENDENT DRILLING [employer] PRODUCTION [address] [facility] 1 [place], [place] [phone] Referring Provider Certified Nurse Practitioner 11/22/24 Jeffrey Kuhn MD [address] [place], [place] [phone] Oncologist Hematology 12/01/24 Data Analytics Architect Relationship Specialty Start Date End Date Sam Del ToroDO [address] [place] [address] [place] [address] PCP - General Family Medicine 11/23/24 Ruby Rojas, EXTRACTOR PLANT OPERATOR-SUPERINTENDENT DRILLING [employer] PRODUCTION [address] [place] [address] Certified Nurse Practitioner 11/22/24 Jenn Lehman, RN Registered Nurse 11/22/24 Ruby Rojas, EXTRACTOR PLANT OPERATOR-SUPERINTENDENT DRILLING AND PRODUCTION [address] [facility] 1 [place], [place] [address] Referring Provider Certified Nurse Practitioner 11/22/24 Jeffrey Kuhn MD [address] [place] [address] Oncologist Hematology 12/01/24 Data Analytics Architect Relationship Specialty Start Date End Date Sam Del ToroDO [address] [place] [address] [place] [phone] PCP - General Family Medicine 11/23/24 Ruby Rojas, EXTRACTOR PLANT OPERATOR-SUPERINTENDENT DRILLING AND PRODUCTION [address] [place] [address] Certified Nurse Practitioner 11/22/24 Jenn Lehman, RN Registered Nurse 11/22/24 Ruby Rojas, EXTRACTOR PLANT OPERATOR-SUPERINTENDENT DRILLING AND PRODUCTION [address] [facility] 1 [place], [place] [phone] Referring Provider Certified Nurse Practitioner 11/22/24 Jeffrey Kuhn MD [address] [place], [place] [address] Oncologist Hematology 12/01/24 Data Analytics Architect Relationship Specialty Start Date End Date Sam Del ToroDO [address] [place] [address] [place] [phone] PCP - General Family Medicine 11/23/24 Ruby Rojas, EXTRACTOR PLANT OPERATOR-SUPERINTENDENT DRILLING AND PRODUCTION [address] [place] [address] Certified Nurse Practitioner 11/22/24 Jenn Lehman, RN Registered Nurse 11/22/24 Ruby Rojas, EXTRACTOR PLANT OPERATOR-SUPERINTENDENT DRILLING AND PRODUCTION [address] [facility] 1 [place], [place] [address] Referring Provider Certified Nurse Practitioner 11/22/24 Jeffrey Kuhn MD [address] [place] [address] Oncologist Hematology 12/01/24 Data Analytics Architect Relationship Specialty Start Date End Date Sam Del Toro DO [address] [facility] [place] [address] [place] [address] PCP - General Family Medicine 11/23/24 Ruby Rojas, EXTRACTOR PLANT OPERATOR-SUPERINTENDENT DRILLING AND PRODUCTION [address] [place] [address] Certified Nurse Practitioner 11/22/24 Jenn Lehman, RN Registered Nurse 11/22/24 Ruby Rojas, EXTRACTOR PLANT OPERATOR-SUPERINTENDENT DRILLING AND PRODUCTION [address] [facility] 1 [place], [place] [address] Referring Provider Certified Nurse Practitioner 11/22/24 Jeffrey Kuhn MD [address] [place] [address] Oncologist Hematology 12/01/24 Team Status: Inactive Member [...] January 08, 2025 End: January 08, 2025 Data Analytics Architect Relationship Specialty Start Date End Date Sam Del Toro DO [address] [place] [address] [place] [address] PCP - General Family Medicine 11/23/24 Ruby Rojas, EXTRACTOR PLANT OPERATOR-SUPERINTENDENT DRILLING AND PRODUCTION [address] [place] [address] Certified Nurse Practitioner 11/22/24 Jenn Lehman, RN Registered Nurse 11/22/24 Ruby Rojas, EXTRACTOR PLANT OPERATOR-SUPERINTENDENT DRILLING AND PRODUCTION [address] [place] [address] [place], [place] [address] Referring Provider Certified Nurse Practitioner 11/22/24 Jeffrey Kuhn MD [address] [place] [address] Oncologist Hematology 12/01/24 Data Analytics Architect Relationship Specialty Start Date End Date Sam Del Toro DO [address] [place] [address] [place] [address] PCP - General Family Medicine 11/23/24 Ruby Rojas, EXTRACTOR PLANT OPERATOR-SUPERINTENDENT DRILLING AND PRODUCTION [address] [place] [address] Certified Nurse Practitioner 11/22/24 eJnn Lehman, RN Registered Nurse 11/22/24 Ruby Rojas, EXTRACTOR PLANT OPERATOR-SUPERINTENDENT DRILLING AND PRODUCTION [address] [place] [address] [place] [address] Referring Provider Certified Nurse Practitioner 11/22/24 Jeffrey Kuhn MD [address] [place] [address] Oncologist Hematology 12/01/24 Tiarra Fiore MD [address] [place] [address] Neurosurgeon Neurological Surgery 01/11/25 Reason for Visit (unrecogniz ed section and content) Reason Comments New Patient Specialty Diagnoses / Procedures Referred By Fritz clements Referred To Contact Neurologic Surgery Diagnoses 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, except renal pelvis Ruby Rojas, EXTRACTOR PLANT OPERATOR-SUPERINTENDENT DRILLING AND PRODUCTION [address] [facility] [place] [address] [place] [address] Phone: tel: Tiarar Fiore MD [address] [place] [address] Phone: tel: fax: Referral ID Status Reason Start Date Expiration Date Visits Requested Visits Authorized [id number] New Request Surgical Evaluation 11/22/2024 12/17/2025 1 1 Reason Comments Follow-up Reason Comments Continuity Of Care Reason Comments Consult Specialty Diagnoses / Procedures Referred By Fritz clements Referred To Contact Radiation Oncology Diagnoses Metastatic cancer to spine Tiarra Fiore MD [address] [place] [address] Phone: tel: fax: Referral ID Status Reason Start Date Expiration Date V isits Requested Visits Authorized [id number] New Request 11/23/2024 12/18/2025 1 1 Reason [...] 50% needed, contact pharmacy or obtain from [facility] ++ 0053 (Not Given - Pr ovider: [...] 50% needed, contact pharmacy or obtain from [facility] ++ 0235 (Given - Provid er: Grady [...] glucose is greater than 200md/dl, then notify Cloud Solutions Architect. And BLOOD GLUCOSE (POC DEVICE) (CANCELED) Routine, [...] at 0212, Until Specified, Who to Notify: Cloud Solutions Architect, For all Blood Glucose LESS THAN 80 mg/dl, notify Cloud Solutions Architect after treatment per Hypoglycemia in Non- Adults [...] (Unheld by provider - Provider: Lainey Wasserman APRN-SUPERINTENDENT DRILLING AND PRODUCTION)1600 (Canceled Entry - Provider: System Discharge - [...] medication order)0830 (Held by provider - Provider: Yoseiln Hoffman PA-C - Reason: Order Parameters not [...] 50% needed, contact pharmacy or obtain from [facility] ++ 0602 (Given - Provider: Inga Acuna, [...] glucose is greater than 200md/dl, then notify Cloud Solutions Architect. And BLOOD GLUCOSE (POC DEVICE) (CANCELED) Routine, [...] 50% needed, contact pharmacy or obtain from [facility] cart ++ And glucose (GLUTOSE) 40 % [...] at 0453, Until Specified, Who to Notify: Cloud Solutions Architect, For all Blood Glucose LESS THAN 80 mg/dl, notify Cloud Solutions Architect after treatment per Hypoglycemia in Non- Adults Clinical Practice Guideline And Carbohydrate counts with meals (CANCELED) Routine, CONTINUOUS, Starting on Wed01/09/25 at 0453, Until Specified, Carbohydrate counts are to be done after each patient meal and with snack. (unrecognized sect ion and content) No Status Records FoundNo Status Records Found INFORMATION SOURCE (unrecogn ized section and content) DATE CREATED AUTHOR 01/13/2025 [facility] DATE CREATED AUTHOR AUTHOR'S SANJU FULLER 01/14/2025 [facility] FOR RECORDS PERTAINING TO PATIENTS WHO ARE [...] BE BASED ON THE PRIMARY CLINICAL RECORDS. [employer] provides no warranty or guarantee of the accuracy or completeness of information in this document.
[2025-01-16] VITALS (20 sets, daily range): BP systolic 126–180; BP diastolic 63–86; PULSE 54–93; RESP 12–19; TEMP 36.1–36.6; O2SAT 92–98; BMI 30.7; BMI 31.1
[2025-01-16 00:18] LABS: Magnesium 1.8 mg/dL (1.5-2.2)
[2025-01-16] MEDS: cycloBENZAPRine HCl 5 MG TABLET PO ×2 (01:01→21:41)
[2025-01-16 01:11] LABS: Troponin T High Sens 4 HR 104 ng/L (<=22)
--- NOTE | 2025-01-16 02:37 | EKG12_ITS ---
Test Reason : CP Blood Pressure : */* mmHG Vent. Rate : 94 BPM Atrial Rate : * BPM P-R Int : * ms QRS Dur : 106 ms QT Int : 414 ms P-R-T Axes : * 5 172 degrees QTcB Int : 517 ms Atrial fibrillation Minimal voltage criteria for LVH, may be normal variant ( Praneeth product ) ST & T wave abnormality, consider lateral ischemia Prolonged QT Abnormal ECG Confirmed by ZARA BUSBY, GREG ([id number]), mapping editor CIRILO SIDHU ([id number]) on 01/16/2025 11:26:01 AM Referred By: ADELE Confirmed By: GREG ZUÑIGA MD
[2025-01-16] MEDS: Morphine 2 MG/ML Syringe IV ×3 (04:47→18:39)
[2025-01-16] MEDS: 0.9% Saline Lock 10 ML Syringe IV ×4 (04:47→21:43)
[2025-01-16] MEDS: Aspirin E.C. 81 MG Tablet PO (04:51)
[2025-01-16] MEDS: cloNIDine HCl 0.1 MG Tablet PO ×2 (04:51→21:42)
[2025-01-16] MEDS: Levothyroxine 125 MCG Tablet PO (04:52)
[2025-01-16 07:03] LABS: Absolute Lymphocyte Count 0.33 X10^3/uL (0.83-4.51); Basophil# 0.01 X10^3/uL; Basophil% 0.1 % (0-1); Eosinophil# 0.01 X10^3/uL; Eosinophils% 0.1 % (0-5); Hematocrit 24.4 % (40-54); Hemoglobin 7.5 g/dL (13.0-16.5); Lymphocyte # 0.33 X10^3/ul (0.83-4.51); Lymphocyte % 3.6 % (19-41); Mean Corp Hgb Conc 30.7 g/dL (32-36); Mean Corpuscular Hgb 30.1 pg (27.0-32.0); Mean Platelet Vol. 10.6 fl (6.2-12.0); Monocyte# 0.36 X10^3/uL; NRBC Flagged by Analyzer 0.8 % (0-5); Neutrophil # 7.95 X10^3/uL (2.7-7.7); Neutrophil % 87.7 % (47-70); POSITIVE COUNT YES; POSITIVE DIFFERENTIAL YES; POSITIVE MORPHOLOGY YES; Platelet Count 100 K/mm3 (150-450); RBC Distribution Width CV 19.2 % (11.6-14.6); RBC Distribution Width SD 69.2 fl (35.1-43.9); Red Blood Count 2.49 M/mm3 (4.6-6.2); White Blood Count 9.1 K/mm3 (4.4-11.0)
[2025-01-16 07:31] LABS: Cholesterol 168 mg/dL (<=200); High Density Lipoprotein 74 mg/dL; Low Density Lipoprotein Calc. 65 mg/dL; Triglycerides 145 mg/dL; Very Low Density Lipoprotein 29 mg/dL (5-40); cholesterol:hdl ratio screen 2.28
[2025-01-16 07:38] LABS: Differential Indicated SCAN CRITERIA MET
[2025-01-16 07:39] LABS: Anisocytosis 1+; Hypochromasia 1+
[2025-01-16 07:44] LABS: ALB/GLOB Ratio 0.9 RATIO (0.9-2.4); AST(SGOT) 67 U/L (<=37); Alanine Aminotransfer ALT/SGPT 28 U/L (<=46); Albumin, Serum 2.7 g/dL (3.4-4.8); Alkaline Phosphatase 59 U/L (40-129); Anion Gap 13 (5-15); BUN 29 mg/dL (4-19); BUN/Creat Ratio 9.1 RATIO (10-20); Carbon Dioxide 28.4 mmol/L (21.0-32.0); Chloride 93 mmol/L (98-108); Creatinine, Serum 3.19 mg/dL (0.70-1.20); EST Glomerular Filtration Rate 20 (>60); Estimated Creatinine Clearance 26.91 ml/min (50-250); Globulin 2.9 g/dL (2.2-4.2); Glucose 76 mg/dL (70-99); Potassium 4.9 mmol/L (3.3-5.1); Protein, Total 5.6 g/dL (5.9-8.4); Sodium Level 135 mmol/L (133-145); Total Bilirubin 0.55 mg/dL (0.00-1.30)
[2025-01-16 08:13] LABS: Ferritin 4250 ng/mL (37-417); Iron 130 ug/dL (65-175); Iron Binding Capacity,Unsat 100 ug/dL (228-428); Vitamin B12 579 pg/mL (180-914)
[2025-01-16 09:08] LABS: LDH 912 U/L (87-241)
[2025-01-16 10:01] LABS: Iron Binding Capacity,Total 230 ug/dL (250-450); PERCENT IRON SATURATION 56.5 % (9-55)
--- NOTE | 2025-01-16 12:10 | CASEMGMT ---
MAYNOR CROWELL Face to Face with patient for initial transition planning/care coordination assessment. RN MERVAT introduced self and role at [facility]. Patient lying in bed, alert and oriented. Patient willing to participate in assessment and is able to answer all questions appropriately. Care providers, pharmacy, and demographics verified. Strata: 3 PCP: [facility] Specialists: Garrett, livestock trader; Bhavya Singh, surgical services tech; Purvi, Mixer Operator; Homero, urologist; Prakelli, oncology Preferred Pharmacy: [facility] Insurance: [facility] Prescription Benefit: yes Living Will/HPOA: yes, chung Wright LNOK: sons Living Arrangements: Patient lives alone in a single story home with 3 steps and railing or ramp to enter the home. Patient states he is independent at home. Transportation: self, sons, girlfriend DME/HHC: Patient has raised toilet, cane, grab bars, walker at home. No previous HHC or SNF. Patient wishes to discharge home, will monitor for HHC pending progress with therapy. Patient states he has no further needs or concerns at this time. CM to follow for discharge planning needs that may arise. Disposition Plan: Patient to discharge home with family support and follow-up plans in place. Will monitor for HHC Lee Ann MATHEW, MAYNOR, CM
[2025-01-16 12:42] LABS: Bedside Glucose 62 mg/dL (74-106)
[2025-01-16] MEDS: Pantoprazole Sodium 40 MG in 0.9% Normal Saline (100mL MB+) 100 ML 300 MG IV ×2 (13:01→21:57)
[2025-01-16] MEDS: Acetaminophen 325 MG Tablet 650 MG PO ×2 (14:39→21:41)
[2025-01-16] MEDS: Menthol/Lanolin/Calamine/Znox 113 GM Tube 1 APPLIC TOPICAL (14:41)
--- NOTE | 2025-01-16 15:40 | CHAPLAIN ---
Type of Pastoral Visit _x__ Initial Visit ___ Follow-up Visit ___ On-call Visit ___ General Patient Visit ___ Spiritual Assessment ___ Family Conference ___ Bereavement ___ Rapid Response ___ Code Blue ___ Other (describe below) Pastoral Care Referral From _x__ Patient ___ Family ___ Nurse ___ Physician ___ Tight Cooper ___ Aquaculture Worker ___ Other (describe below) Sacrament/Intervention _x__ Active listening ___ Anointing ___ Uatsdin ___ Bereavement ___ Communion ___ Susanna exploration ___ _x__ Life review _x__ Prayer ___ Reconciliation ___ Sacrament of Sick _x__ Supportive presence ___ Wedding ___ Other (describe below) Pastoral Comments patient and spouse are in the room; pt presents with a laid back attitude and with a 'I can handle this' persona; as conversation continues both patient and spouse are more open about his serious situation with cancers found in multiple places, and other health issues; pt says that he is just handling it; pt inquires about this medical sales's scientologist connections and he knows people that this medical sales knows which gives more opening to conversation; prayer is given
--- NOTE | 2025-01-16 16:03 | PCM.PRE.AN2 ---
ASA Classification* ASA Classification ASA Classification: 3 and E Assessment & Plan Anesthesia* Anesthesia Assessment Anesthesia Assessment: Discussed sedation and/or anesthesia options, risks, benefits, and alternatives with patient/parents/legal guardian/POA. Questions invited. The patient/parents/legal guardian/POA seems to understand and agrees to proceed with anesthesia plan. Reviewed the physical assessment, medical history, allergy history and patient home medications list prior to surgery/procedure/anesthetic and documented any changes. Performed airway and anesthesia risk assessments. Anesthesia Type Anesthesia Type: MAC History Source History Obtained from:: Patient and Chart Anesthesia Focused Assessment* Temperature: 97.4 F Pulse Rate: 74 Blood Pressure: 159/63 Respiratory Rate: 16 Pulse Ox: 95 Oxygen Delivery Method: Room Air Airway Assessment Mouth opens: >3 cm Mallampati Score: II Teeth Condition: Missing (Patient has couple missing teeth. Rest are tight.) Neck Range of motion (ROM): Limited ROM (Somewhat decreased extension) Labs Anesthesia Preop lab: CBC WBC 9.1 K/mm3 (4.4-11.0) 01/16/25 06:35 01/16/25 RBC 2.49 M/mm3 (4.6-6.2) L 01/16/25 06:35 01/16/25 Hgb 7.5 g/dL (13.0-16.5) L 01/16/25 06:35 01/16/25 Hct 24.4 % (40-54) L 01/16/25 06:35 01/16/25 Plt Count 100 K/mm3 (150-450) L 01/16/25 06:35 01/16/25 CHEMISTRY Potassium 4.9 mmol/L (3.3-5.1) 01/16/25 06:35 01/16/25 Sodium 135 mmol/L (133-145) 01/16/25 06:35 01/16/25 Magnesium 1.8 mg/dL (1.5-2.2) 01/15/25 19:45 01/15/25 Phosphorus 5.0 mg/dL (2.5-4.9) H 01/16/23 10:45 01/16/23 BUN 29 mg/dL (4-19) H 01/16/25 06:35 01/16/25 Creatinine 3.19 mg/dL (0.70-1.20) H 01/16/25 06:35 01/16/25 Glucose 76 mg/dL (70-99) 01/16/25 06:35 01/16/25 POC Glucose 62 mg/dL (74-106) L 01/16/25 12:25 01/16/25 TSH 3.670 uIU/mL (0.300-4.200) 01/16/25 06:35 01/16/25 COAG PT 13.6 SECONDS (11.7-14.9) 01/08/25 09:40 01/08/25 Pre-Assessment Diagnosis/Proposed Procedure Planned Operative Procedure(s): Egd Anesthesia History 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 When Was Last Pacemaker Check QUESTION #4 FULL TEXT: You/Your Family Experience fever (hyperthermia) with Anesthesia Last Oral Intake Last Oral intake: Last Oral Intake NPO since 00:00 01/16/25 14:28 Meds taken in AM with sips of Yes 01/16/25 14:28 water? 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 Has anyone observed you stop No 01/16/25 00:28 breathing during sleep? STOP Results Negative 01/16/25 00:28 QUESTION #5 FULL TEXT : Do you snore loudly (louder than talking or can be heard through closed doors)? 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 Specify any problems Hx of Preganancy in last 3 N/A 01/16/25 00:28 Months Nurse Filling Out Transfusion RWALKER 01/16/25 00:28 & Questions: Date: 01/16/25 01/16/25 00:28 Time: 00:38 01/16/25 00:28 Patient unable to answer at this time (ie. confused, unrespo /Reproduction History /Reproductive History - biodiesel engine specialist: /Reproductive Hx- biodiesel engine specialist Hx Now No 01/16/25 14:28 Gestational Age (in weeks): EDC: Hx Hx Para Hx Section SAB No 01/16/25 14:28 Active Medications Active Medications: Current Medications Generic Name Dose Route Start Last Admin Trade Name Freq PRN Reason Stop Dose Admin Acetaminophen 650 mg 01/16/25 00:27 01/16/25 14:39 Acetaminophen 325 Mg Tablet PO 650 mg Q6H PRN PRN Administration Pain 1-5/10 or Fever Allopurinol 100 mg 01/16/25 08:00 01/16/25 09:31 Allopurinol 100 Mg Tablet [facility] Calamine/Phenol 1 applic 01/16/25 14:00 01/16/25 14:41 Menthol/Lanolin/Calamine/Znox 113 Gm Tube TOPICAL 1 applic TID [facility] Administration Protocol Clonidine 0.1 mg 01/16/25 10:00 01/16/25 04:51 Clonidine Hcl 0.1 Mg Tablet PO 0.1 mg BID [facility] Administration Protocol Cyclobenzaprine HCl 5 mg 01/16/25 00:27 01/16/25 01:01 Cyclobenzaprine Hcl 5 Mg Tablet PO 5 mg TID PRN PRN Administration MUSCLE SPASM Dexamethasone 2 mg 01/16/25 08:00 01/16/25 09:31 Dexamethasone 4 Mg Tablet PO [facility] Diltiazem HCl 120 mg 01/16/25 10:00 01/16/25 09:31 Diltiazem Cd 120 Mg Capsule PO Not Given BID [facility] Protocol Ferrous Sulfate 325 mg 01/16/25 12:00 01/16/25 13:01 Ferrous Sulfate 325 Mg Tablet PO Not Given 1200,1700 [facility] Finasteride 5 mg 01/16/25 10:00 01/16/25 09:31 Finasteride 5 Mg Tablet PO Not Given DAILY [facility] Pantoprazole Sodium 40 mg/ 100 mls @ 300 mls/hr 01/16/25 10:00 01/16/25 13:21 Sodium Chloride IV Infused Q12 [facility] Infusion Sodium Chloride 500 mls @ 0 mls/hr 01/16/25 15:15 IV .Q0M [facility] KVO Levothyroxine Sodium 125 mcg 01/16/25 06:00 01/16/25 04:52 Levothyroxine 125 Mcg Tablet PO 125 mcg DAILY@0600 [facility] Administration Magnesium Hydroxide 30 ml 01/16/25 00:27 Magnesium Hydroxide 30 Ml Udc PO DAILY PRN PRN Constipation Melatonin 3 mg 01/15/25 23:41 Melatonin 3 Mg Tablet PO QHS PRN PRN INSOMNIA Morphine Sulfate 2 mg 01/16/25 00:27 01/16/25 12:18 Morphine 2 Mg/Ml Syringe IV 2 mg Q4H PRN PRN Administration Pain Score 6-10 Multivit/Ca Carb/B Cmplx/FA/Prenat 1 cap 01/16/25 10:00 01/16/25 09:31 Folic Acid/Vitamin B Comp W-C 1 Capsule PO Not Given DAILY [facility] Nitroglycerin 0.4 mg 01/16/25 00:27 Nitroglycerin (Inpatient Use) 0.4 Mg Tab.Subl SL Q5M PRN CARDIAC/CHEST PAIN Ondansetron HCl 4 mg 01/16/25 00:27 Ondansetron 4 Mg/2 Ml Vial IV Q8H PRN PRN NAUSEA/VOMITING Sodium Chloride 10 - 40 ml 01/16/25 00:29 01/16/25 12:21 0.9% Saline Lock 10 Ml Syringe IV 10 ml UD PRN Administration SALINE FLUSH Sodium Chloride 250 ml 01/16/25 08:57 0.9% Normal Saline 250 Ml Iv.Soln. IV Q12H PRN PRN ivpb with blood PFSH Medical History Wears glasses History of Clostridium difficile infection Prostate disease Low iron History of pulmonary embolus (PE) History of DVT (deep vein thrombosis) Easy bruising Blackout Non-smoker Cancer Diabetes GERD (gastroesophageal reflux disease) Pancreatitis Coronary artery disease History of kidney cancer CKD (chronic kidney disease) stage 4, GFR 15-29 ml/min Pancreatic mass Anemia COVID-19 (07/11/21) Renal dysfunction Chronic diastolic (congestive) heart failure Deep vein thrombosis of right lower extremity (11/19/14) Paroxysmal atrial fibrillation Neoplastic (malignant) related fatigue Hypothyroidism Pneumonitis Metastatic renal cell carcinoma to lung Abnormal CT of the abdomen Obesity Atrial fibrillation with rapid ventricular response (07/04/19) Bilateral pulmonary embolism (11/19/14) Type 2 diabetes mellitus Essential (primary) hypertension Gout Renal cell cancer Viral URI Encounter for education Home Medications ?Medication ?Instructions ?Recorded ?Last Taken ?Type allopurinol 100 mg tablet 100 mg PO DAILYCM gout 05/03/15 08/05/19 History finasteride 5 mg tablet 5 mg PO DAILY prostate 05/03/15 08/05/19 History clonidine HCl 0.1 mg tablet 0.1 mg PO BID blood pressure 09/25/21 02/25/22 09:30 History ferrous sulfate 325 mg (65 mg 325 mg PO BID #60 tabs 01/06/22 Unknown Rx iron) tablet pantoprazole 40 mg tablet,delayed 40 mg PO DAILY GERD 02/16/22 02/25/22 09:30 History release diltiazem HCl 120 mg See Rx Instructions .Route 11/22/23 Unknown Rx capsule,extended release 24 hr .COMPLEX #180 caps vitamin B complex-vitamin C-folic 1 tab PO DAILY 01/03/24 Unknown History acid 0.8 mg tablet (Theresa-Fabian) glipizide 5 mg tablet 5 mg PO DAILY 08/15/24 Unknown History levothyroxine 125 mcg tablet 125 mcg PO DAILY 08/15/24 Unknown History aspirin 81 mg tablet,delayed 81 mg PO QDAY 10/23/24 Unknown History release (Adult Low Dose Aspirin) axitinib 5 mg tablet 5 mg PO QDAY 11/28/24 Unknown History metoprolol tartrate 100 mg tablet 100 mg PO BID #180 tabs 12/01/24 Unknown Rx dexamethasone 4 mg tablet 2 mg PO Q12H 01/08/25 Unknown History hydrocodone-acetaminophen 5-325mg 1 tab PO Q6H PRN pain 01/15/25 Unknown History 5mg-325mg Allergy/AdvReac Type Severity Reaction Status Date / Time Penicillins (PCN) Allergy PT UNSURE Verified 01/15/25 19:14 OF REACTION Family History Mother Diabetes Heart disease Kidney disease Hypertension CVA (cerebral vascular accident) Father Heart disease Surgical History S/P arteriovenous (AV) fistula creation (~03/2022) History of esophagogastroduodenoscopy (EGD) History of colonoscopy (2018) History of total hip arthroplasty (04/2015) History of left nephrectomy (2010) Social History housing: house Smoking Status: Never smoker second hand exposure: No alcohol intake: never substance use type: does not use caffeine: Yes frequency: does not exercise Review of Systems (Anesthesia) ROS Narrative System reviewed and no additional complaints, except as documented.
--- NOTE | 2025-01-16 16:07 | PN_ITS ---
Progress Note 69-year-old male with past medical history of metastatic renal cell carcinoma to lung, CHF, end-stage renal disease on dialysis Wednesday, presented with chest pain and back pain on 01/16/2025. He recently had radiation therapy to a T2 vertebral fracture secondary to cancer. He was admitted for intractable back pain. He was on Eliquis, but he was having hematuria so that was stopped. Recently, he was diagnosed with a blood clot in his rectum, and released from [facility]. I was asked to see him due to decreasing hemoglobin. His hemoglobin was 11.4 and has drifted down to 7.5. Physical Exam Const alert, oriented x3 and no apparent distress General Appearance: cooperative HEENT normocephalic, head/scalp atraumatic, hearing grossly normal bilaterally and moist oral mucous membranes Resp normal respiratory effort, no retractions, no use of accessory muscles and clear to auscultation bilaterally Cardio regular rate and regular rhythm GI normal to inspection, nondistended, normoactive bowel sounds, soft to palpation, non-tender and non-distended GI Narrative: Obese. Percussion: normal to percussion Rectal Exam: deferred Extremity normal to inspection and full ROM Skin Skin Narrative: Patient has no evidence of rash, abscess or jaundice. Neuro oriented x3, CN's II-XII intact bilaterally, moves all extremities and no focal motor deficits Sensorium / Orientation: awake, alert, oriented to person, oriented to place and oriented to time Speech: speech normal Psych affect normal Assessment & Plan Assessment/Plan (1) Anemia: QUALIFIERS: Anemia type: unspecified type Qualified Code(s): D64.9 - Anemia, unspecified PLAN: He will undergo an upper endoscopy and possible colonoscopy. He was explained alternatives, risk and benefits, not withstanding bleeding, tract, sepsis, perforation, need for brain surgery . He will have an ASA of 3. Visit Charges Inpatient E&M: 35761 Subs Hosp L3
--- NOTE | 2025-01-16 16:13 | PN.HOSP_ITS ---
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 The drop was almost 3 points. Patient denies seeing any blood in the stool he denies any black stools. I have decided to proceed with an EGD today to make sure the patient does not have an upper GI bleed, I contacted gastroenterology about this. I also ordered some testing to make sure he is not hemolyzing his blood, his LDH is 912 which is high, patient's iron level is normal, ferritin was high, TIBC was low, and iron saturation was slightly high. Patient's hemoglobin this morning was 7.5., He received 1 unit of packed red blood cells since his admission. Objective Data Objective Data Vital Signs: Vital Signs Temp Pulse Resp BP Pulse Ox O2 Del Method 97.4 F L 74 16 159/63 H 95 Room Air 01/16/25 16:10 01/16/25 16:10 01/16/25 16:10 01/16/25 16:10 01/16/25 16:10 01/16/25 16:10 Oxygen Delivery Method Room Air Weight: 104.3 kg Body Mass Index (BMI) 31.1 Intake & Output: Intake and Output for Last 24 Hours 01/14/25 01/15/25 01/16/25 23:59 23:59 23:59 Intake Total 500 / 500 Balance 500 / 500 Lab / Micro Data 01/16/25 06:35 01/16/25 06:35 Labs: Laboratory Results - last 24 hr 01/15/25 19:45: WBC 10.0, RBC 2.60 L, Hgb 7.8 L, Hct 24.9 L, MCV 95.8 H, MCH 30.0, MCHC 31.3 L, RDW Std Deviation 67.0 H, RDW Coeff of Shanell 19.1 H, Plt Count 116 L, MPV 9.8, Immature Gran % (Auto) 3.100 H, Neut % (Auto) 91.2 H, Lymph % (Auto) 2.6 L, Grand % (Auto) 3.0, Eos % (Auto) 0.0, Baso % (Auto) 0.1, Absolute Neuts (auto) 9.1 H, Absolute Lymphs (auto) 0.26 L, Nucleated RBC % 0.5, Differential Comment SCANNED, Anisocytosis RARE, Sodium 135, Potassium 3.9, C hloride 92 L, Carbon Dioxide 26.1, Anion Gap 17 H, BUN 23 H, Creatinine 2.53 H, Estim Creat Clear Calc 33.95 L, Est GFR (MDRD) Non-Af 27 L, BUN/Creatinine Ratio 8.9 L, Glucose 259 H, Calcium 7.9, Magnesium 1.8, Troponin T High Sens 102 H* D, Serum Folate 17.60 01/15/25 22:00: Troponin T Hi Sens 2 Hr 100 H* 01/16/25 00:34: Troponin T Hi Sens 4Hr 104 H* 01/16/25 06:35: WBC 9.1, RBC 2.49 L, Hgb 7.5 L, Hct 24.4 L, MCV 98.0 H, MCH 30.1, MCHC 30.7 L, RDW Std Deviation 69.2 H, RDW Coeff of Shanell 19.2 H, Plt Count 100 L, MPV 10.6, Immature Gran % (Auto) 4.500 H, Neut % (Auto) 87.7 H, Lymph % (Auto) 3.6 L, Grand % (Auto) 4.0, Eos % (Auto) 0.1, Baso % (Auto) 0.1, Absolute Neuts (auto) 8.0 H, Absolute Lymphs (auto) 0.33 L, Nucleated RBC % 0.8, Hypochromasia 1+, Anisocytosis 1+, Sodium 135, Potassium 4.9, Chloride 93 L, Carbon Dioxide 28.4, Anion Gap 13, BUN 29 H, Creatinine 3.19 H, Estim Creat Clear Calc 26.91 L, Est GFR (MDRD) Non-Af 20 L, BUN/Creatinine Ratio 9.1 L, Glucose 76, Calcium 8.0, Iron 130, TIBC 230 L, Iron Saturation 56.5 H, U nsaturated IBC 100 L, Ferritin 4250 H, Total Bilirubin 0.55, AST 67 H, ALT 28, Alkaline Phosphatase 59, Lactate Dehydrogenase 912 H, Total Protein 5.6 L, A lbumin 2.7 L, Globulin 2.9, Albumin/Globulin Ratio 0.9, Triglycerides 145, Cholesterol 168, LDL Cholesterol, Calc 65, VLDL Cholesterol 29, HDL Cholesterol 74, Cholesterol/HDL Ratio 2.28, Vitamin B12 579, TSH 3.670, Blood Type A POSITIVE, Antibody Screen NEGATIVE, Direct Antiglob Test NEG w/POLYSPECIFIC, Crossmatch See Detail 01/16/25 12:25: POC Glucose 62 L Radiography Diagnostic Testing: Radiology Impression Chest X-Ray 01/15/25 20:35 IMPRESSION: No large focal consolidations. Bibasilar subsegmental atelectasis. Mild pulmonary vascular congestion. Reading Location: [facility] Physical Exam Const alert, oriented x3 and no apparent distress Constitutional Narrative: Patient appears his stated age General Appearance: cooperative, well kempt and well developed Orientation / Consciousness: awake, oriented to person, oriented to place and oriented to time HEENT normocephalic, head/scalp atraumatic and moist oral mucous membranes Eyes PERRL, EOMs intact bilaterally and conjunctivae normal Neck supple, no JVD, thyroid normal and no carotid bruits General: trachea midline Resp normal respiratory effort, no retractions, no use of accessory muscles and clear to auscultation bilaterally Auscultation: Negative for rales, rhonchi or wheezes Cardio regular rate, regular rhythm, S1 normal heart sound, S2 normal heart sound, no murmurs, no rub and no gallops GI normal to inspection, nondistended, normoactive bowel sounds, soft to palpation, non-tender and non-distended Extremity no clubbing, cyanosis or edema Skin no rashes or lesions noted General Skin Exam: no breakdown Neuro oriented x3, CN's II-XII intact bilaterally, moves all extremities, no focal motor deficits and no sensory deficits noted Sensorium / Orientation: awake and alert Speech: speech normal Psych affect normal Assessment & Plan Assessment/Plan (1) Chest pain: QUALIFIERS: Chest pain type: unspecified Qualified Code(s): R07.9 - Chest pain, unspecified PLAN: Plan 1. Chest pain-etiology unclear, possibly secondary to demand ischemia-I talked informally with cardiology, he sees Dr. Loja in his office, Dr. Loja recommended maximizing the patient's medications rather than doing any diagnostic testing at this time. #2 acute anemia-etiology unclear, rule out upper GI bleed-patient will undergo an EGD today, I have placed him on IV Protonix #3 type 2 diabetes-monitor blood sugars, sliding scale insulin was ordered #4 end-stage renal disease-patient will be seen by nephrology #5 metastatic renal cell carcinoma patient follows up as an outpatient #6 essential hypertension-patient will remain on his present medications #7 hypothyroidism-patient is on Synthroid Total clinical time spent by myself addressing the patient's medical issues, reviewing all of the data and collaborating with patient's care team: 35 minutes Charges/Coding Visit Charges Inpatient E&M: 57191 Subs Hosp L2
--- NOTE | 2025-01-16 16:32 | PCM.POST.ANE ---
Anesthesia: Postop Eval I Current Vital Signs Temperature: 97 F Pulse Rate: 68 Blood Pressure: 126/76 Respiratory Rate: 16 Pulse Ox: 98 Oxygen Delivery Method: Room Air Assessment Airway patent: Yes Spontaneous unlabored respirations: Yes Mental status: Asleep nausea: No Vomiting: No Anesthesia Complication: No Fluid Hydration Crystalloid volume administer (ml): 25 Total IV fluid infused: 25 Progress Note Anesthesia document: Postop Eval 1 completed: Yes
--- NOTE | 2025-01-16 16:35 | OP.EGD_ITS ---
Patient Name: James Wright Procedure Date: 01/16/2025 3:59 PM Date of : 1955 Age: 69 Procedure: Upper GI endoscopy Indications: Iron deficiency anemia Providers: Flaco Go DO Medicines: Monitored Anesthesia Care Patient Profile: This is a 69 year old male. Refer to note in patient chart for documentation of history and physical. Patient has symptoms. Complications: No immediate complications. Procedure: Pre-Anesthesia Assessment: - Prior to the procedure, a History and Physical was performed, and patient medications and allergies were reviewed. The patient is competent. The risks and benefits of the procedure and the sedation options and risks were discussed with the patient. All questions were answered and informed consent was obtained. Patient identification and proposed procedure were verified by the physician in the pre-procedure area. Mental Status Examination: alert and oriented. Airway Examination: normal oropharyngeal airway and neck mobility. Respiratory Examination: clear to auscultation. CV Examination: normal. Prophylactic Antibiotics: The patient does not require prophylactic antibiotics. Prior Anticoagulants: The patient has taken no anticoagulant or antiplatelet agents. ASA Grade Assessment: III - A patient with severe systemic disease. After reviewing the risks and benefits, the patient was deemed in satisfactory condition to undergo the procedure. The anesthesia plan was to use monitored anesthesia care (MAC). Immediately prior to administration of medications, the patient was re-assessed for adequacy to receive sedatives. The heart rate, respiratory rate, oxygen saturations, blood pressure, adequacy of pulmonary ventilation, and response to care were monitored throughout the procedure. The physical status of the patient was re-assessed after the procedure. After obtaining informed consent, the endoscope was passed under direct vision. Throughout the procedure, the patient's blood pressure, pulse, and oxygen saturations were monitored continuously. The gastroscope was introduced through the mouth, and advanced to the fourth part of the duodenum. Small bowel enteroscopy was deemed necessary. The upper GI endoscopy was accomplished without difficulty. The patient tolerated the procedure well. Scope In: 4:22:16 PM Scope Out: 4:24:40 PM Total Procedure Duration Time 0 hours 2 minutes 24 seconds Findings: The examined esophagus was normal. Suspect gastroparesis due to absence of peristalsis, patient symptoms and retained gastric contents. No gross lesions were noted in the entire examined duodenum. Impression: - Normal esophagus. - Gastroparesis. - No gross lesions in the entire examined duodenum. - No specimens collected. Recommendation: - Return patient to [facility] for [facility] care. - Resume previous diet. - Continue present medications. - Consider Colonoscopy Procedure Code(s): --- Professional --- 58722, Small intestinal endoscopy, enteroscopy beyond second portion of duodenum, not including ileum; diagnostic, including collection of specimen(s) by brushing or washing, when performed (separate procedure) CPT copyright 2021 [employer] [place] [employer]. All rights reserved. The codes documented in this report are preliminary and upon medical coder review may be revised to meet current compliance requirements. Flaco Go DO 01/16/2025 4:34:18 PM This report has been signed electronically. Number of Addenda: 0 Note Initiated On: 01/16/2025 3:59 PM
--- NOTE | 2025-01-16 17:05 | POSTOPAN2_ITS ---
Anesthesia Postop Eval I Sum Postop Eval Completion status Anesthesia document: Postop Eval 1 completed: Yes Anesthesia Postop Eval I Summary Anesthesia Postop Eval I Summary: Anesthesia Postop Eval I: Assessment Summary Airway patent Yes 01/16/25 16:32 [email or web address] Spontaneous unlabored Yes 01/16/25 16:32 [email or web address] respirations Mental status Asleep 01/16/25 16:32 [email or web address] nausea No 01/16/25 16:32 BONER [email or web address] Vomiting No 01/16/25 16:32 BONER [email or web address].[email or web address] Anesthesia Postop Eval I: Fluid Summary Crystalloid volume administer 25 01/16/25 16:32 [email or web address] (ml) Colloids volume administered ( ml) Blood Product volume administered (ml) Total IV fluid infused 25 01/16/25 16:32 BONER [email or web address] Anesthesia Postop Eval I: Summary Notes Anesthesia Complication No 01/16/25 16:32 BONER [email or web address] Anesthesia Complication Comment: Post-operative progress note Anesthesia: Postop Eval II Evaluation Mental status: Awake and Calm Pain Level: 0 nausea: No Vomiting: No Complications Anesthesia Complication: No
--- NOTE | 2025-01-16 17:05 | PCM.POSTANE2 ---
Anesthesia Postop Eval I Sum Postop Eval Completion status Anesthesia document: Postop Eval 1 completed: Yes Anesthesia Postop Eval I Summary Anesthesia Postop Eval I Summary: Anesthesia Postop Eval I: Assessment Summary Airway patent Yes 01/16/25 16:32 [email or web address] Spontaneous unlabored Yes 01/16/25 16:32 MILLWORK [email or web address] respirations Mental status Asleep 01/16/25 16:32 [email or web address] nausea No 01/16/25 16:32 MILLWORK [email or web address] Vomiting No 01/16/25 16:32 MILLWORK [email or web address] Anesthesia Postop Eval I: Fluid Summary Crystalloid volume administer 25 01/16/25 16:32 [email or web address] (ml) Colloids volume administered ( ml) Blood Product volume administered (ml) Total IV fluid infused 25 01/16/25 16:32 MILLWORK [email or web address] Anesthesia Postop Eval I: Summary Notes Anesthesia Complication No 01/16/25 16:32 MILLWORK [email or web address] Anesthesia Complication Comment: Post-operative progress note Anesthesia: Postop Eval II Evaluation Mental status: Awake and Calm Pain Level: 0 nausea: No Vomiting: No Complications Anesthesia Complication: No
[2025-01-16] MEDS: dexAMETHasone 4 MG Tablet 2 MG PO (18:04)
[2025-01-16] MEDS: Ferrous Sulfate 325 MG Tablet PO (18:04)
--- NOTE | 2025-01-16 20:00 | NURSING ---
Pt was walking with 2 staff in room using walker and he suddenly felt weak, knees buckled was lowered to knees. Family was at bedside at the time. Pt was assisted back to bed. VS and Glucose level obtained. Dr Parra was notified ordered knee xrays to evaluate for injury d/t slight bruising noted.
[2025-01-16 20:09] LABS: Bedside Glucose 108 mg/dL (74-106)
--- NOTE | 2025-01-16 20:24 | PCM.HOSP.N ---
Hospitalist Note Patient with mechanical fall with staff at his side, went to the floor, bumped his knees. He has mild mild bruising to the knees. He notes back discomfort which has been ongoing but no knee pain. No LOC or head trauma. will obtain BL knee plain film to be cautious.
--- NOTE | 2025-01-16 20:25 | RAD_ITS ---
PROCEDURE: KNEE 1 OR 2 VIEWS 01/16/2025 REASON FOR EXAM: FALL, ONTO BL KNEES; FALL, BILAT KNEES TECHNIQUE: Frontal and lateral views of each knee COMPARISON: None FINDINGS: No displaced fracture or traumatic malalignment. No significant knee joint effusion. There is moderate narrowing in the medial compartment of the left knee, and mild in the medial compartment of the right. Vascular calcifications in the posterior thigh soft tissues. RAD/Knee 1 or 2 Views IMPRESSION: 1. No displaced fracture of either knee. 2. Moderate left and mild right knee osteoarthritis. Reading Location: [id number]
--- NOTE | 2025-01-16 20:30 | RAD_ITS ---
PROCEDURE: KNEE 1 OR 2 VIEWS 01/16/2025 REASON FOR EXAM: FALL, ONTO BL KNEES; FALL, BILAT KNEES TECHNIQUE: Frontal and lateral views of each knee COMPARISON: None FINDINGS: No displaced fracture or traumatic malalignment. No significant knee joint effusion. There is moderate narrowing in the medial compartment of the left knee, and mild in the medial compartment of the right. Vascular calcifications in the posterior thigh soft tissues. RAD/Knee 1 or 2 Views IMPRESSION: 1. No displaced fracture of either knee. 2. Moderate left and mild right knee osteoarthritis. Reading Location: [id number]
[2025-01-16] MEDS: dilTIAZem CD 120 MG Capsule PO (21:42)
[2025-01-17] VITALS (15 sets, daily range): BP systolic 127–238; BP diastolic 73–103; PULSE 63–85; RESP 14–17; TEMP 36.4–36.5; O2SAT 92–98; BMI 31.7; BMI 31.0
[2025-01-17] MEDS: cycloBENZAPRine HCl 5 MG TABLET PO ×4 (05:16→23:30)
[2025-01-17] MEDS: Levothyroxine 125 MCG Tablet PO (05:16)
[2025-01-17] MEDS: Acetaminophen 325 MG Tablet 650 MG PO ×3 (05:17→17:52)
--- NOTE | 2025-01-17 08:06 | CON.PCM.RE_ITS ---
Assessment & Plan Assessment/Plan (1) ESRD (end stage renal disease) on dialysis: (2) Chest pain: QUALIFIERS: Chest pain type: unspecified Qualified Code(s): R07.9 - Chest pain, unspecified (3) Metastatic cancer to spine: (4) Metastatic renal cell carcinoma to lung: QUALIFIERS: Laterality: unspecified laterality Qualified Code(s): C78.00 - Secondary malignant neoplasm of unspecified lung; C64.9 - Malignant neoplasm of unspecified kidney, except renal pelvis (5) Anemia: QUALIFIERS: Anemia type: unspecified type Qualified Code(s): D 64.9 - Anemia, unspecified (6) Type 2 diabetes mellitus: QUALIFIERS: DVT location: lower extremity Affected thrombotic vein of extremity: unspecified vein of extremity Chronicity: unspecified L aterality: unspecified laterality Qualified Code(s): I82.409 - Acute embolism and thrombosis of unspecified deep veins of unspecified lower extremity HPI Consult Data Date of Consult: 01/17/25 HPI Narrative Reason for Consultation: ESRD HD MWF HPI Narrative: KRISSY SAAVEDRA, is a 69 M with ESRD HD MWF, last dialysis Wednesday, currently receiving dialysis admitted for chest wall pain, anemia with hgb 7.5g. Hgb 8.9g on 01/15/25 at [facility]. Underwent EGD, received prbc. Hx renal cancer with gross hematuria, mets to bone with severe chronic back pain s/p radiation, decadron, narcotics. Currently denied SOB, back pain persists. Weakness, basically bedridden due to pain. [facility] Medical History Wears glasses History of Clostridium difficile infection Prostate disease Low iron History of pulmonary embolus (PE) History of DVT (deep vein thrombosis) Easy bruising Blackout Non-smoker Cancer Diabetes GERD (gastroesophageal reflux disease) Pancreatitis Coronary artery disease History of kidney cancer CKD (chronic kidney disease) stage 4, GFR 15-29 ml/min Pancreatic mass Anemia COVID-19 (07/11/21) Renal dysfunction Chronic diastolic (congestive) heart failure Deep vein thrombosis of right lower extremity (11/19/14) Paroxysmal atrial fibrillation Neoplastic (malignant) related fatigue Hypothyroidism Pneumonitis Metastatic renal cell carcinoma to lung Abnormal CT of the abdomen Obesity Atrial fibrillation with rapid ventricular response (07/04/19) Bilateral pulmonary embolism (11/19/14) Type 2 diabetes mellitus Essential (primary) hypertension Gout Renal cell cancer Viral URI Encounter for education Home Medications ?Medication ?Instructions ?Recorded ?Last Taken ?Type allopurinol 100 mg tablet 100 mg PO DAILYCM gout 05/0308/05/19 History finasteride 5 mg tablet 5 mg PO DAILY prostate 05/0308/05/19 History clonidine HCl 0.1 mg tablet 0.1 mg PO BID blood pressu re 09/25/21 02/25/22 09:30 History ferrous sulfate 325 mg (65 mg 325 mg PO BID #60 tabs 0 01/06/22 Unknown Rx iron) tablet pantoprazole 40 mg tablet,delayed 40 mg PO DAILY GERD 02/16/22 02/25/22 09:30 History release diltiazem HCl 120 mg See Rx Instructions .Route 0 11/22/23 Unknown Rx capsule,extended release 24 hr .COMPLEX #180 caps vitamin B complex-vitamin C-folic 1 tab PO DAILY 01/02 Unknown History acid 0.8 mg tablet (Theresa-Fabian) glipizide 5 mg tablet 5 mg PO DAILY 08/15/24 Unkno wn History levothyroxine 125 mcg tablet 125 mcg PO DAILY 08/15/24 Unknown History aspirin 81 mg tablet,delayed 81 mg PO QDAY 10/23/24 Un known History release (Adult Low Dose Aspirin) axitinib 5 mg tablet 5 mg PO QDAY 11/28/24 Unknow n History metoprolol tartrate 100 mg tablet 100 mg PO BID #180 t abs 12/01/24 Unknown Rx dexamethasone 4 mg tablet 2 mg PO Q12H 01/08/25 Unknow n History hydrocodone-acetaminophen 5-325mg 1 tab PO Q6H PRN antony n 01/15/25 Unknown History 5mg-325mg Allergy/AdvReac Type Severity Reaction Status Date / Time Penicillins (PCN) Allergy PT UNSURE Verified 01/15/25 19:14 OF REACTION Family History Mother Diabetes Heart disease Kidney disease Hypertension CVA (cerebral vascular accident) Father Heart disease Surgical History S/P arteriovenous (AV) fistula creation (~03/2022) History of esophagogastroduodenoscopy (EGD) History of colonoscopy (2018) History of total hip arthroplasty (04/2015) History of left nephrectomy (2010) Social History housing: house Smoking Status: Never smoker second hand exposure: No alcohol intake: never substance use type: does not use caffeine: Yes frequency: does not exercise ROS Constitutional Constitutional: Reports weakness; Denies chills or fever(s) Cardiovascular Cardiovascular: Reports leg edema; Denies chest pain or dyspnea on exertion Respiratory/Chest Respiratory/Chest: Reports dyspnea on exertion Gastrointestinal Gastrointestinal: Reports anorexia; Denies abdominal pain, diarrhea, hematochezia, melena or nausea Musculoskeletal Musculoskeletal: Reports back pain and other Details: mets to bone Psychiatric Psychiatric: Denies anxiety or confusion Hematologic/Lymphatic Hematologic/Lymphatic: Reports anemia Physical Exam Const alert and oriented x3 General Appearance: well developed Resp clear to auscultation bilaterally Cardio regular rate GI non-tender and non-distended Auscultation: normoactive bowel sounds Palpation: soft Extremity no clubbing, cyanosis or edema Psych cooperative Lab / Micro Data 01/17/25 08:25 01/16/25 06:35 Labs: Laboratory Results - last 24 hr 01/16/25 06:35: Iron 130, TIBC 230 L, Iron Saturation 56.5 H, Unsaturated IBC 100 L, Ferritin 4250 H, Lactate Dehydrogenase 912 H, Vitamin B12 579, TSH 3.670, Blood Type A POSITIVE, Antibody Screen NEGATIVE, Direct Antiglob Test NEG w/POLYSPECIFIC, Crossmatch See Detail 01/16/25 12:25: POC Glucose 62 L 01/16/25 19:49: POC Glucose 108 H Imaging Radiology Impression Knee X-Ray 01/16/25 20:25 IMPRESSION: 1. No displaced fracture of either knee. 2. Moderate left and mild right knee osteoarthritis. Reading Location: [facility] Knee X-Ray 01/16/25 20:30
[2025-01-17] MEDS: 0.9% Normal Saline 1,000 ML IV.SOLN. 1000 ML OPERA.SITE (08:11)
[2025-01-17] MEDS: 0.9% Saline Lock 10 ML Syringe IV ×4 (08:12→23:33)
[2025-01-17] MEDS: PureFlow B 2K Dialysis Soln 1 BAG 6 BAG PF (08:12)
[2025-01-17 08:49] LABS: Basophil# 0.01 X10^3/uL; Eosinophil# 0.01 X10^3/uL; Hematocrit 29.6 % (40-54); Hemoglobin 9.5 g/dL (13.0-16.5); Mean Corp Hgb Conc 32.1 g/dL (32-36); Mean Corpuscular Hgb 30.8 pg (27.0-32.0); Mean Corpuscular Volume 96.1 fL (80-94); Mean Platelet Vol. 9.6 fl (6.2-12.0); NRBC Flagged by Analyzer 0.8 % (0-5); POSITIVE COUNT YES; POSITIVE DIFFERENTIAL YES; POSITIVE MORPHOLOGY YES; Platelet Count 102 K/mm3 (150-450); RBC Distribution Width SD 65.4 fl (35.1-43.9); Red Blood Count 3.08 M/mm3 (4.6-6.2); White Blood Count 9.7 K/mm3 (4.4-11.0)
[2025-01-17 08:59] LABS: Differential Indicated SCAN CRITERIA MET
[2025-01-17] MEDS: Epoetin Alfa epbx 10,000 UNIT/ML 10000 UNIT IV (09:17)
[2025-01-17 09:51] LABS: Lymphocyte 6 % (19-41); Metamyelocyte 3 % (0-1); Monocyte 5 % (0-10); Neutrophil-Segmented 86 % (47-70); Total Cells Counted 100 (MANUAL DIFF)
[2025-01-17 09:55] LABS: Anisocytosis 1+; Polychromasia 1+
[2025-01-17 09:56] LABS: Ovalocyte 1+; Platelet Estimate SLT DEC (ADEQ)
[2025-01-17 09:57] LABS: Scan Smear per Review Criteria MANUAL DIFF
[2025-01-17 10:04] LABS: Absolute Lymphocyte Count 0.58 X10^3/uL (0.83-4.51); Absolute Neutrophil Count 8.4 X10^3/uL (2.0-7.7); Lymphocyte # 0.58 X10^3/ul (0.83-4.51); Neutrophil # 8.37 X10^3/uL (2.7-7.7)
--- NOTE | 2025-01-17 11:35 | CASEMGMT ---
SW was informed that patient would like to go to a SNF that does onsite dialysis. HARDY met with patient and his daughter. HARDY introduced self and role at [facility]. Both patient and his daughter confirmed this information. HARDY provided them with A list of group home facility providers including quality and resource use data and consistent with patient?s preferred geographic region, medical needs, and insurance network were provided from the [employer] Guide. HARDY marked the two facilities that offer onsite dialysis. [facility] start with [facility]. They will review the list to come up with other choices in case [facility] says no. HARDY asked Chanel d/jenaro emergency planning and response manager to send a referral to [facility]. Sola Clark TIMBER MANAGEMENT PROFESSOR PEGGY
--- NOTE | 2025-01-17 11:59 | CASEMGMT ---
Addendum entered by Chanel Dotson 01/17/25 14:25: [facility] has declined d/t no available beds. Chanel Dotson DC Planning Asst. Original Note: Discharge Planning Referral sent to [facility]. Chanel Dotson DC Planning Asst.
[2025-01-17] MEDS: dexAMETHasone 4 MG Tablet 2 MG PO ×2 (12:07→17:12)
[2025-01-17] MEDS: cloNIDine HCl 0.1 MG Tablet PO ×2 (12:08→22:24)
[2025-01-17] MEDS: Allopurinol 100 MG Tablet PO (12:08)
[2025-01-17] MEDS: dilTIAZem CD 120 MG Capsule PO ×2 (12:08→22:24)
[2025-01-17] MEDS: Ferrous Sulfate 325 MG Tablet PO ×2 (12:09→17:13)
[2025-01-17] MEDS: Folic Acid/Vitamin B Comp W-C 1 Capsule 1 CAP PO (12:09)
[2025-01-17] MEDS: Finasteride 5 MG Tablet PO (12:09)
[2025-01-17] MEDS: Pantoprazole Sodium 40 MG in 0.9% Normal Saline (100mL MB+) 100 ML 300 MG IV ×2 (12:18→22:20)
--- NOTE | 2025-01-17 14:09 | CASEMGMT ---
SW called patient's son Jason and let him know that [facility] is full so HARDY needs other choices. Jason said they were thinking [facility] or [facility]. HARDY let Jason know that [facility] usually cannot transport to dialysis while [facility] usually can. Jason said he was going to call his brother and see what they want to do. Jason was thinking it will be one of the [facility] facilities. HARDY gave Jason HARDY's phone number. Sola WOODS
--- NOTE | 2025-01-17 14:15 | CASEMGMT ---
Jason called HARDY back and said the next choice would be [facility]. HARDY asked Chanel d/c urban planning professor to please send a referral to [facility]. Sola Clark MSW PEGGY
--- NOTE | 2025-01-17 14:25 | CASEMGMT ---
Addendum entered by Chanel Dotson 01/17/25 15:52: [facility] has accepted and will submit for precert. SW updated. Chanel Dotson DC Planning Asst. Original Note: Discharge Planning Referral sent to [facility]. Chanel Dotson DC Planning Asst.
--- NOTE | 2025-01-17 15:59 | CASEMGMT ---
SW called patient's son Jason and let him know that [facility] has accepted patient and will submit everything to insurance. HARDY explained patient will stay at [facility] until insurance approves him which could be tomorrow. Someone will let them know. HARDY also notified patient and his significant other. Plan: d/c to [facility] pending insurance approval. Sola WOODS
--- NOTE | 2025-01-17 16:21 | PN.HOSP_ITS ---
Reason for Visit Reason for Visit: Diagnoses Malignant neoplasm of right kidney, except renal pelvis (01/15/25) Malignant neoplasm of unspecified kidney, except renal pelvis (01/15/25) Secondary malignant neoplasm of unspecified lung (01/15/25) Secondary malignant neoplasm of bone (01/15/25) Anemia, unspecified (01/15/25) Obesity, class 1 (01/15/25) Muscle spasm of back (01/15/25) Chest pain, unspecified (01/15/25) Other specified abnormal findings of blood chemistry (01/15/25) Personal history of other diseases of urinary system (01/15/25) Dependence on renal dialysis (01/15/25) Subjective Subjective Patient was seen and examined today, I talked with his daughter was in the room during the time of my visit. She states that the patient is too weak to go home and she would like placement in a longterm facility for temporary rehab services, patient agrees to this, patient would like to go to a facility where inpatient dialysis could be performed. Patient's hemoglobin today was 9.5, patient's EGD yesterday did not show any sign of active bleeding. Objective Data Objective Data Vital Signs: Vital Signs Temp Pulse Resp BP Pulse Ox O2 Del Method 97.6 F L 78 16 163/75 H 98 Room Air 01/17/25 12:03 01/17/25 12:03 01/17/25 12:03 01/17/25 12:03 01/17/25 12:03 01/17/25 14:28 Oxygen Delivery Method Room Air Weight: 103.8 kg Body Mass Index (BMI) 31.0 Intake & Output: Intake and Output for Last 24 Hours 01/15/25 01/16/25 01/17/25 23:59 23:59 23:59 Intake Total 600 / 600 340 / 340 Output Total 0 / 0 2472 / 2472 Balance 600 / 600 -2132 / -2132 Lab / Micro Data 01/17/25 08:25 01/16/25 06:35 Labs: Laboratory Results - last 24 hr 01/16/25 19:49: POC Glucose 108 H 01/17/25 08:25: WBC 9.7, RBC 3.08 L, Hgb 9.5 L, Hct 29.6 L, MCV 96.1 H, MCH 30.8, MCHC 32.1, RDW Std Deviation 65.4 H, RDW Coeff of Shanell 19.0 H, Plt Count 102 L, MPV 9.6, Immature Gran % (Auto) [place], Neut % (Auto) [place], Lymph % (Auto) [place], Orange % (Auto) [place], Eos % (Auto) [place], Baso % (Auto) [place], Absolute Neuts (auto) 8.4 H , Absolute Lymphs (auto) 0.58 L, Total Counted 100, Neutrophils % (Manual) 86 H, Lymphocytes % (Manual) 6 L, Monocytes % (Manual) 5, Metamyelocytes % 3 H, Nucleated RBC % 0.8, Platelet Estimate SLT DEC, Polychromasia 1+, Anisocytosis 1+, Ovalocytes 1+ Radiography Diagnostic Testing: Radiology Impression Knee X-Ray 01/16/25 20:25 IMPRESSION: 1. No displaced fracture of either knee. 2. Moderate left and mild right knee osteoarthritis. Reading Location: [id number] Knee X-Ray 01/16/25 20:30 IMPRESSION: 1. No displaced fracture of either knee. 2. Moderate left and mild right knee osteoarthritis. Reading Location: [facility] Physical Exam Narrative alert, oriented x3 and no apparent distress Constitutional Narrative: Patient appears his stated age General Appearance: cooperative, well kempt and well developed Orientation / Consciousness: awake, oriented to person, oriented to place and oriented to time HEENT normocephalic, head/scalp atraumatic and moist oral mucous membranes Eyes PERRL, EOMs intact bilaterally and conjunctivae normal Neck supple, no JVD, thyroid normal and no carotid bruits General: trachea midline Resp normal respiratory effort, no retractions, no use of accessory muscles and clear to auscultation bilaterally Auscultation: Negative for rales, rhonchi or wheezes Cardio regular rate, regular rhythm, S1 normal heart sound, S2 normal heart sound, no murmurs, no rub and no gallops GI normal to inspection, nondistended, normoactive bowel sounds, soft to palpation, non-tender and non-distended Extremity no clubbing, cyanosis or edema Skin no rashes or lesions noted General Skin Exam: no breakdown Neuro oriented x3, CN's II-XII intact bilaterally, moves all extremities, no focal motor deficits and no sensory deficits noted Sensorium / Orientation: awake and alert Speech: speech normal Psych affect normal Assessment & Plan Assessment/Plan (1) Chest pain: QUALIFIERS: Chest pain type: unspecified Qualified Code(s): R07.9 - Chest pain, unspecified PLAN: Plan 1. Chest pain-etiology unclear, possibly secondary to demand ischemia-I talked informally with cardiology, he sees Dr. Loja in his office, Dr. Loja recommended maximizing the patient's medications rather than doing any diagnostic testing at this time. Patient has had no more episodes of chest pain while hospitalized #2 acute anemia-etiology unclear, I will switch the patient over to oral Protonix at this time, patient's hemoglobin today was 9.5, I will recheck the patient's CBC tomorrow #3 type 2 diabetes-monitor blood sugars, sliding scale insulin was ordered #4 end-stage renal disease-patient will be seen by nephrology, he underwent dialysis today #5 metastatic renal cell carcinoma patient follows up as an outpatient #6 essential hypertension-patient will remain on his present medications #7 hypothyroidism-patient is on Synthroid #8 acute on chronic debility-patient will be seen by PT and OT, he will need placement temporarily in a skilled facility for inpatient rehab services. Total clinical time spent by myself addressing the patient's medical issues, reviewing all of the data and collaborating with patient's care team: 35 minutes Charges/Coding Visit Charges Inpatient E&M: 07774 Subs Hosp L2
[2025-01-17] MEDS: Menthol/Lanolin/Calamine/Znox 113 GM Tube 1 APPLIC TOPICAL (22:16)
[2025-01-18] MEDS: Acetaminophen 325 MG Tablet 650 MG PO ×2 (00:01→09:27)
[2025-01-18 03:00] VITALS: PULSE 77
[2025-01-18 04:11] VITALS: BP 155/79; PULSE 66; RESP 19; TEMP 36.4; O2SAT 94
[2025-01-18 05:41] VITALS: BMI 31.1
[2025-01-18] MEDS: Menthol/Lanolin/Calamine/Znox 113 GM Tube 1 APPLIC TOPICAL (06:43)
[2025-01-18] MEDS: Levothyroxine 125 MCG Tablet PO (06:44)
[2025-01-18] MEDS: cycloBENZAPRine HCl 5 MG TABLET PO ×2 (06:55→13:34)
[2025-01-18 07:23] LABS: Hematocrit 29.1 % (40-54); Hemoglobin 9.2 g/dL (13.0-16.5); Mean Corp Hgb Conc 31.6 g/dL (32-36); Mean Corpuscular Hgb 30.4 pg (27.0-32.0); Mean Platelet Vol. 9.4 fl (6.2-12.0); POSITIVE COUNT YES; POSITIVE DIFFERENTIAL YES; POSITIVE MORPHOLOGY YES; Platelet Count 102 K/mm3 (150-450); RBC Distribution Width CV 18.7 % (11.6-14.6); RBC Distribution Width SD 65.6 fl (35.1-43.9); Red Blood Count 3.03 M/mm3 (4.6-6.2); White Blood Count 9.7 K/mm3 (4.4-11.0)
[2025-01-18 07:25] LABS: Differential Indicated MANUAL DIFF
[2025-01-18 08:25] LABS: Lymphocyte 4 % (19-41); Monocyte 5 % (0-10); Neutrophil-Segmented 89 % (47-70); Promyelocyte 2 % (0-0); Total Cells Counted 100 (MANUAL DIFF)
[2025-01-18 08:26] LABS: Anisocytosis 1+; Platelet Estimate SLT DEC (ADEQ)
[2025-01-18 08:27] LABS: Absolute Neutrophil Count 8.6 X10^3/uL (2.0-7.7)
[2025-01-18] MEDS: dexAMETHasone 4 MG Tablet 2 MG PO (09:26)
[2025-01-18] MEDS: Finasteride 5 MG Tablet PO (09:27)
[2025-01-18] MEDS: Allopurinol 100 MG Tablet PO (09:27)
[2025-01-18] MEDS: Folic Acid/Vitamin B Comp W-C 1 Capsule 1 CAP PO (09:27)
[2025-01-18] MEDS: dilTIAZem CD 120 MG Capsule PO (09:27)
[2025-01-18] MEDS: 0.9% Saline Lock 10 ML Syringe IV (09:27)
[2025-01-18] MEDS: cloNIDine HCl 0.1 MG Tablet PO (09:27)
[2025-01-18] MEDS: Pantoprazole Sodium 40 MG in 0.9% Normal Saline (100mL MB+) 100 ML 300 MG IV (09:30)
[2025-01-18 09:35] VITALS: BP 160/75; PULSE 71; RESP 18; TEMP 36.4; O2SAT 95
--- NOTE | 2025-01-18 12:04 | TREXTCAR_ITS ---
Diet Diet Order/Speech Therapy: INPATIENT Hospital Diet / Speech Therapy Order(s) 01/17/25 17:12 ADA [Diet: Cardiac: Calorie-Controlled] Diet Comments: OR 6 hours prior to procedure How many daily calories?: 1800 calorie Routine Orders/Code Status Routine Lab Work: CBC (On 01/20/2025) Code Status: Full Code DC O2, CPAP, BIPAP needs Home O2 Discharge instructions: No Therapies Weight Bearing: Full weight bearing (With walker) Physical Therapy: Eval and Treat Occupational Therapy: Eval and Treat Problem/Diagnosis (1) Chest pain: Status: Acute Code(s): R07.9 - Chest pain, unspecified Plan 1. Chest pain-etiology unclear, possibly secondary to demand ischemia-I talked informally with cardiology, he sees Dr. Loja in his office, Dr. Loja recommended maximizing the patient's medications rather than doing any diagnostic testing at this time. 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 Kuhn #6 essential hypertension-patient will remain on his present medications #7 hypothyroidism-patient is on Synthroid #8 acute on chronic debility-patient will be seen by PT and OT, he will need placement temporarily in a skilled facility for inpatient rehab services. Total clinical time spent by myself addressing the patient's medical issues, reviewing all of the data and collaborating with patient's care team: 35 minutes Allergies/Procedures Done in Hospital Allergies Penicillins (PCN) Allergy (Verified 01/15/25 19:14) PT UNSURE OF REACTION Procedures: Dialysis and EGD Type of Care/Length of Stay Estimated LOS: Convalescent Care Less Than 30 days Type of Care Needed: Skilled Rehab Potential: Fair Prognosis: Fair Additional Orders/Day of Discharge H&P will serve as current which was dated: 01/15/25 Day of Discharge: 01/18/25 Discharge Plan Admission Admit Date/Time: 01/15/25 23:35 Primary Reason for Your Visit: Chest pain, acute anemia-etiology unknown Attending Provider: Houston Spear Primary Care Provider: Houston Olson Consulting Providers: Jluis Stark; Lana Tucker Discharge Orders/Prescriptions Prescriptions: New dexamethasone 4 mg Tablet 2 mg PO BIDCM Qty: 0 0RF oxycodone 5 mg Tablet 10 mg PO Q4H PRN PRN (Reason: Pain Score 1-10) 2 Days Qty: 10 0RF cyclobenzaprine 5 mg Tablet 5 mg PO TID PRN PRN (Reason: Muscle Spasm) Qty: 0 0RF menthol-zinc oxide [Calmoseptine] 0.44-20.6 % Ointment 1 applic topical TID Qty: 0 0RF Protocol: *Topical Application Instructions APPLICATION INSTRUCTIONS: apply to buttocks Continued clonidine HCl 0.1 mg tablet 0.1 mg PO BID Theresa-Fabian 0.8 mg tablet 1 tab PO DAILY levothyroxine 125 mcg tablet 125 mcg PO DAILY glipizide 5 mg tablet 5 mg PO DAILY allopurinol 100 MG tablet 100 mg PO DAILYCM Patient Comments: GOUT finasteride 5 MG tablet 5 mg PO DAILY Patient Comments: BPH ferrous sulfate 325 mg (65 mg iron) tablet 325 mg PO BID Qty: 60 0RF diltiazem HCl 120 mg capsule,extended release 24hr See Rx Instructions .ROUTE .COMPLEX Qty: 180 4RF Dose Instruction: take 1 capsule by mouth twice a day Rx Instructions: take 1 capsule by mouth twice a day axitinib 5 mg tablet 5 mg PO QDAY Changed pantoprazole 40 mg tablet,delayed release (DR/EC) 40 mg PO BID Qty: 1 0RF Rx Instructions: take 1 tablet by mouth once daily Discontinued aspirin [Adult Low Dose Aspirin] 81 mg tablet,delayed release (DR/EC) 81 mg PO QDAY dexamethasone 4 mg tablet 2 mg PO Q12H hydrocodone-acetaminophen 5-325 mg tablet 1 tab PO Q6H PRN (Reason: pain) No Action metoprolol tartrate 100 mg tablet 100 mg PO BID Qty: 180 3RF Referrals / Follow Up: Houston Olson, [Primary Care Provider] - Disposition Disposition (needs filled in before D/C Order can be placed): Nursing Home Facility (1) Chest pain Qualifiers: Chest pain type: unspecified Qualified Code(s): R07.9 - Chest pain, unspecified
--- NOTE | 2025-01-18 12:05 | CASEMGMT ---
Discharge Planning [facility] has obtained auth to admit. SW updated. Chanel Dotson DC Planning Asst.
[2025-01-18] MEDS: oxyCODONE 5 MG Tablet 10 MG PO (12:16)
[2025-01-18] MEDS: Ferrous Sulfate 325 MG Tablet PO (12:16)
--- NOTE | 2025-01-18 12:19 | DS.PCM_ITS ---
Providers Date of Admission: 01/15/25 Date of Discharge: 01/18/25 Primary Care Physician: Dr. Houston Olson, Consultations 01/16/25 08:14 Consult: Gastroenterology Routine Consulting Provider: [facility] Reason for Consult: acute anemia, need for EGD EMERGENT Consult: No Notified: Yes Date Notified: 01/16/25 Time Notified: 08:14 Method of Notification: Verbal 01/16/25 08:20 Consult: Nephrology Routine Consulting Provider: Lana Tucker Reason for Consult: ESRD EMERGENT Consult: No Notified: Yes Date Notified: 01/16/25 Time Notified: 08:20 Method of Notification: Text Comments:: sees doctor Lana Tucker as an outpatient Reason For Visit: chest pain with elevated troponin t Diagnosis Discharge Diagnosis (1) Chest pain: Status: Acute Code(s): R07.9 - Chest pain, unspecified Qualifiers: Chest pain type: unspecified Qualified Code(s): R07.9 - Chest pain, unspecified Plan 1. Chest pain-etiology unclear, possibly secondary to demand ischemia-I talked informally with cardiology, he sees Dr. Loja in his office, Dr. Loja recommended maximizing the patient's medications rather than doing any diagnostic testing at this time. 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 Kuhn #6 essential hypertension-patient will remain on his present medications #7 hypothyroidism-patient is on Synthroid #8 acute on chronic debility-patient will be seen by PT and OT, he will need placement temporarily in a skilled facility for inpatient rehab services. Total clinical time spent by myself addressing the patient's medical issues, reviewing all of the data and collaborating with patient's care team: 35 minutes Medications at Discharge Home Medications allopurinol 100 mg tablet 100 mg PO DAILYCM gout 05/03/15 finasteride 5 mg tablet 5 mg PO DAILY prostate 05/03/15 clonidine HCl 0.1 mg tablet 0.1 mg PO BID blood pressure 09/25/21 ferrous sulfate 325 mg (65 mg iron) tablet 325 mg PO BID #60 tabs 01/06/22 diltiazem HCl 120 mg capsule,extended release 24 hr See Rx Instructions .Route .COMPLEX #180 caps 11/22/23 vitamin B complex-vitamin C-folic acid 0.8 mg tablet (Theresa-Fabian) 1 tab PO DAILY 01/03/24 glipizide 5 mg tablet 5 mg PO DAILY 08/15/24 levothyroxine 125 mcg tablet 125 mcg PO DAILY 08/15/24 axitinib 5 mg tablet 5 mg PO QDAY 11/28/24 metoprolol tartrate 100 mg tablet 100 mg PO BID #180 tabs 12/01/24 cyclobenzaprine 5 mg tablet 5 mg PO TID PRN PRN Muscle Spasm #0 tabs 01/18/25 dexamethasone 4 mg tablet 2 mg (1/2 x 4 mg) PO BIDCM #0 tabs 01/18/25 menthol 0.44 %-zinc oxide 20.6 % topical ointment (Calmoseptine) 1 applic topical TID #0 grams 01/18/25 oxycodone 5 mg tablet 10 mg (2 x 5 mg) PO Q4H PRN PRN Pain Score 1-10 2 days #10 tabs 01/18/25 pantoprazole 40 mg tablet,delayed release 40 mg PO BID GERD #1 TAB 01/18/25 Hospital Course Operations None Procedures Blood transfusion and Dialysis Summary of Care Provided Minutes Spent on Discharge: 32 Hospital Course: This 69-year-old white male was seen in the emergency room at [facility] [place] with complaints of chest pain and back pain, patient had radiation treatment to T2 vertebrae fracture secondary to metastatic renal cell cancer. He began having back pain and back spasms. He stated approximately 3 and half hours ago he started having chest pain along with numbness and tingling of his left arm. He denied any nausea or shortness of breath. Patient is a chronic dialysis patient and he completed dialysis the day was seen in the ER. He describes his chest pain as stabbing in nature. Workup in the ER included a CBC which was remarkable for a white blood cell count of 10 and a hemoglobin of 7.8, chemistry profile was remarkable for creatinine of 2.53 and a BUN of 23, troponin was 102 and follow-up troponin was 100. Glucose was 259. Chest x-ray showed bibasilar subsegmental atelectasis with mild pulmonary vascular congestion. Patient was admitted to PCU on telemetry, he had no more episodes of chest discomfort, he was given analgesics for his back pain. Patient was seen by nephrology and underwent dialysis with transfusion of 1 unit of blood. Patient was seen by gastroenterology due to his anemia, he underwent an EGD that showed no evidence of active bleeding. Due to generalized deconditioning, patient wished to go to an extended care facility for inpatient skilled services. Arrangements were made for him to be admitted to a skilled facility. On 01/18/2025, patient was seen and examined:alert, oriented x3 and no apparent distress Constitutional Narrative: Patient appears his stated age General Appearance: cooperative, well kempt and well developed Orientation / Consciousness: awake, oriented to person, oriented to place and oriented to time HEENT normocephalic, head/scalp atraumatic and moist oral mucous membranes Eyes PERRL, EOMs intact bilaterally and conjunctivae normal Neck supple, no JVD, thyroid normal and no carotid bruits General: trachea midline Resp normal respiratory effort, no retractions, no use of accessory muscles and clear to auscultation bilaterally Auscultation: Negative for rales, rhonchi or wheezes Cardio regular rate, regular rhythm, S1 normal heart sound, S2 normal heart sound, no murmurs, no rub and no gallops GI normal to inspection, nondistended, normoactive bowel sounds, soft to palpation, non-tender and non-distended Extremity no clubbing, cyanosis or edema Skin no rashes or lesions noted General Skin Exam: no breakdown Neuro oriented x3, CN's II-XII intact bilaterally, moves all extremities, no focal motor deficits and no sensory deficits noted Sensorium / Orientation: awake and alert Speech: speech normal Psych affect normal Patient was transferred to an extended care facility for inpatient skilled services on 01/18/2025 in stable condition Weight / BMI Weight Weight: 104.2 kg Body Mass Index (BMI) 31.1 ABG / Lab / Microbiology Data 01/18/25 06:57 01/16/25 06:35 Laboratory: Laboratory Results - last 24 hr 01/18/25 06:57: WBC 9.7, RBC 3.03 L, Hgb 9.2 L, Hct 29.1 L, MCV 96.0 H, MCH 30.4, MCHC 31.6 L, RDW Std Deviation 65.6 H, RDW Coeff of Shanell 18.7 H, Plt Count 102 L, MPV 9.4, Neut % (Auto) Not Reportable, Absolute Neuts (auto) 8.6 H, A bsolute Lymphs (auto) 0.40 L, Total Counted 100, Neutrophils % (Manual) 89 H, L ymphocytes % (Manual) 4 L, Monocytes % (Manual) 5, Promyelocytes % 2 H, Platelet Estimate SLT DEC, Anisocytosis 1+ D/C Instructions DC O2, CPAP, BIPAP Needs Home O2 Discharge instructions: No Meaningful Use Info Meaningful Use Meaningful Use Diagnoses (Choose all that apply): None applicable Ischemic Stroke Statin Dosing Therapy Reference: STATIN DOSE THERAPY REFERENCE: * Patients > 75 years receive moderate or high dose statin therapy. * Patients 75 years or YOUNGER should receive HIGH intensity statin dose unless contraindicated. You will be required to document reason for non-treatment if statin daily dose does not meet guidelines. HIGH DOSE STATIN THERAPY DAILY Atorvastatin > than or = to 40 mg Rosuvastatin > than or = to 20 mg Amlodipine + Atorvastatin > than or = to 2.5/40 mg Ezetimibe + Simvastatin 10/80 mg Simvastatin 80mg Discharge Plan Admission Admit Date/Time: 01/15/25 23:35 Primary Reason for Your Visit: Chest pain, acute anemia-etiology unknown Attending Provider: Houston Spear Primary Care Provider: Houston Olson Consulting Providers: Jluis Stark; Lana Tucker Discharge Orders/Prescriptions Prescriptions: New dexamethasone 4 mg Tablet 2 mg PO BIDCM Qty: 0 0RF oxycodone 5 mg Tablet 10 mg PO Q4H PRN PRN (Reason: Pain Score 1-10) 2 Days Qty: 10 0RF cyclobenzaprine 5 mg Tablet 5 mg PO TID PRN PRN (Reason: Muscle Spasm) Qty: 0 0RF menthol-zinc oxide [Calmoseptine] 0.44-20.6 % Ointment 1 applic topical TID Qty: 0 0RF Protocol: *Topical Application Instructions APPLICATION INSTRUCTIONS: apply to buttocks Continued clonidine HCl 0.1 mg tablet 0.1 mg PO BID Theresa-Fabian 0.8 mg tablet 1 tab PO DAILY levothyroxine 125 mcg tablet 125 mcg PO DAILY glipizide 5 mg tablet 5 mg PO DAILY allopurinol 100 MG tablet 100 mg PO DAILYCM Patient Comments: GOUT finasteride 5 MG tablet 5 mg PO DAILY Patient Comments: BPH ferrous sulfate 325 mg (65 mg iron) tablet 325 mg PO BID Qty: 60 0RF diltiazem HCl 120 mg capsule,extended release 24hr See Rx Instructions .ROUTE .COMPLEX Qty: 180 4RF Dose Instruction: take 1 capsule by mouth twice a day Rx Instructions: take 1 capsule by mouth twice a day axitinib 5 mg tablet 5 mg PO QDAY Changed pantoprazole 40 mg tablet,delayed release (DR/EC) 40 mg PO BID Qty: 1 0RF Rx Instructions: take 1 tablet by mouth once daily Discontinued aspirin [Adult Low Dose Aspirin] 81 mg tablet,delayed release (DR/EC) 81 mg PO QDAY dexamethasone 4 mg tablet 2 mg PO Q12H hydrocodone-acetaminophen 5-325 mg tablet 1 tab PO Q6H PRN (Reason: pain) No Action metoprolol tartrate 100 mg tablet 100 mg PO BID Qty: 180 3RF Referrals / Follow Up: Houston Olson DO [Primary Care Provider] - Disposition Disposition (needs filled in before D/C Order can be placed): Residential Facility Charges/Coding Visit Charges Inpatient E&M: 33529 Disch Hosp >30min
--- NOTE | 2025-01-18 12:26 | CASEMGMT ---
Patient is ready for discharge to [facility]. HARDY completed a 7000 in [employer] system. SW called patient's son Jason and notified him that patient was approved for [facility]. Physician will discharge patient today. Once a time has been arranged someone will call him and let him know a time. Plan:d/c to [facility] under skilled level of care on a convalescent stay. Physicians will transport patient via cot. Sola WOODS
--- NOTE | 2025-01-18 12:43 | CASEMGMT ---
Discharge Planning Discharge orders, signed med list, and transport time sent to [facility]. Physicians will transport pt by cot at 1:45p. Nursing, SW, pt, and his son (Jason) updated. Chanel Dotson DC Planning Asst.
[2025-01-18 13:29] VITALS: BP 164/79; PULSE 61; RESP 18; TEMP 36.6; O2SAT 92
--- NOTE | 2025-01-18 14:47 | NURSING ---
Report called to ANTONIETTA Castañeda at [facility]. Transport here for patient at this time.
== END 2025-01-18 14:46 | disposition skilled nursing facility (03) | DRG 313 ==
LOC: ED 23:18 → PCU 23:24
PROVIDERS: Internal Medicine Gastroenterology; Admitting Provider Internal Medicine; Emergency Provider Emergency Medicine; PCP Family Medicine; Visit Provider Internal Medicine
PROC: 0DJ08ZZ Inspection of Upper Intestinal Tract, Via Natural or Artificial Opening Endoscopic (ICD-10-PCS; CPT 43235; principal; 2025-01-16 15:40)
DX: R07.9 Chest pain, unspecified (principal); N18.6 End stage renal disease; I13.2 Hypertensive heart and chronic kidney disease with heart failure and with stage 5 chronic kidney disease, or end stage renal disease; C78.00 Secondary malignant neoplasm of unspecified lung; C79.51 Secondary malignant neoplasm of bone; C64.1 Malignant neoplasm of right kidney, except renal pelvis; I24.89 Other forms of acute ischemic heart disease; I50.32 Chronic diastolic (congestive) heart failure; E11.22 Type 2 diabetes mellitus with diabetic chronic kidney disease; D50.9 Iron deficiency anemia, unspecified; E03.9 Hypothyroidism, unspecified; E66.811 Obesity, class 1; I48.0 Paroxysmal atrial fibrillation; E11.65 Type 2 diabetes mellitus with hyperglycemia; M10.9 Gout, unspecified; I25.10 Atherosclerotic heart disease of native coronary artery without angina pectoris; Z99.2 Dependence on renal dialysis; K21.9 Gastro-esophageal reflux disease without esophagitis; M62.830 Muscle spasm of back; S80.01XA Contusion of right knee, initial encounter; S80.02XA Contusion of left knee, initial encounter; K31.84 Gastroparesis; E11.43 Type 2 diabetes mellitus with diabetic autonomic (poly)neuropathy; W04.XXXA Fall while being carried or supported by other persons, initial encounter; R79.89 Other specified abnormal findings of blood chemistry; M84.58XD Pathological fracture in neoplastic disease, other specified site, subsequent encounter for fracture with routine healing; N40.0 Benign prostatic hyperplasia without lower urinary tract symptoms; Y92.239 Unspecified place in hospital as the place of occurrence of the external cause; Z68.33 Body mass index [BMI] 33.0-33.9, adult; Z79.82 Long term (current) use of aspirin; Z79.84 Long term (current) use of oral hypoglycemic drugs; Z79.890 Hormone replacement therapy; Z86.718 Personal history of other venous thrombosis and embolism; Z90.5 Acquired absence of kidney
CPT/HCPCS: 36415; 71045; 73560; 80048; 80053; 80061; 82607; 82728; 82746; 82962; 83540; 83550; 83615; 83735; 84443; 84484; 85025; 86850; 86880; 86900; 86901; 90937; 93005; 94668; 97162; 97166; 97530; 99285; P9016; A4216; G0257; J2405; Q5106